=== PATIENT | female | born 1990 | race Caucasian/White ===

== ENCOUNTER 2017-11-29 18:05 | Outpatient (CLI) | payer MEDICAID, SELFPAY ==
[2017-11-29 18:41] VITALS: BMI 19.3
[2017-11-29 18:55] LABS: Bacteria 0 SEEN /hpf (None Seen); Mucous, Urine 0 SEEN /hpf (<or=2+); Red Blood Cells-Urine 0 SEEN /hpf (0-5); White Blood Cells 0 SEEN /hpf (0-5)
[2017-11-29 19:00] LABS: Color, Urine Yellow (Yellow); Glucose, Dipstick Normal (Normal); Ketone-Dipstick Negative (Negative); Leukocyte Esterase-Dipstick Negative /ul (Negative); Nitrite-Dipstick Negative (Negative); Occult Blood-Urine Negative /ul (Negative); Protein-Dipstick Negative (Negative); Urine Bilirubin Dipstick Negative (Negative); Urine Clarity Sl. Cloudy (Clear); Urine Urobilinogen Normal (Normal)
[2017-11-29 19:11] LABS: Squamous Epithelial Cells - UA 0-5 SEEN /hpf (5-10)
[2017-11-29] MEDS: Lactated Ringers 1,000 ML 999 ML IV (20:05)
[2017-11-29 20:43] LABS: Absolute Lymphocyte Count 1.17 X10^3/ul (0.83-4.51); Absolute Neutrophil Count 4.3 X10^3/uL (2.0-7.7); Basophil# 0.01 X10^3/uL; Basophil% 0.2 % (0-1); Eosinophil# 0.08 X10^3/uL; Eosinophils% 1.3 % (0-5); Hematocrit 28.2 % (37-47); Hemoglobin 8.6 g/dl (12.0-15.0); Lymphocyte # 1.17 X10^3/ul (4.0); Lymphocyte % 18.6 % (19-41); Mean Corp Hgb Conc 30.5 g/gl (32-36); Mean Corpuscular Hgb 24.1 pg (27.0-32.0); Mean Platelet Vol. 8.7 fl (6.2-12.0); Monocyte# 0.68 X10^3/uL; Monocyte% 10.8 % (0-10); Neutrophil # 4.32 X10^3/uL (2.7-7.7); Neutrophil % 68.8 % (47-70); Platelet Count 125 K/mm3 (150-450); RBC Distribution Width CV 14.3 % (11.6-14.6); Red Blood Count 3.57 M/mm3 (4.2-5.4); White Blood Count 6.3 K/mm3 (4.4-11.0)
[2017-11-29 20:45] LABS: POSITIVE COUNT NO; POSITIVE DIFFERENTIAL NO; POSITIVE MORPHOLOGY NO
[2017-11-29 20:53] LABS: ALB/GLOB Ratio 0.5 RATIO (0.9-2.4); AST(SGOT) 27 U/L (15-37); Alanine Aminotransfer ALT/SGPT 18 U/L (13-56); Albumin, Serum 2.2 g/dL (3.2-5.0); Alkaline Phosphatase 169 U/L (45-117); Amylase 78 U/L (25-115); Anion Gap 7 (5-15); BUN 6 mg/dL (7-18); BUN/Creat Ratio 13.2 RATIO (10-20); Calcium,Total 8.1 mg/dL (8.5-10.1); Chloride 107 mmol/L (98-107); Creatinine, Serum 0.46 mg/dL (0.55-1.02); EST Glomerular Filtration Rate 175 mL/min (>60); Est Glom Filt Rate - Afr Amer 212 mL/min (>60); Estimated Creatinine Clearance 134.27 ml/min; Globulin 4.1 g/dL (2.2-4.2); Glucose 69 mg/dL (74-106); Lipase 187 U/L (73-393); Potassium 3.5 mmol/L (3.5-5.1); Protein, Total 6.3 g/dL (6.4-8.2); Sodium Level 139 mmol/L (136-145)
[2017-11-29 21:45] VITALS: RESP 18
--- NOTE | 2017-12-04 17:05 | OB.TRI.NOTE ---
History of Present Illness Date of Service: 11/29/17 Was patient seen by the physician?: No Reason For Visit: RIGHT SIDED SHARP PAIN Date of Service: 11/29/17 Final PABLO: 01/04/18 Gestational age: 35 Weeks and 4 Days History of Present Illness: presented to L&D with contractions. Allergies amoxicillin [Amoxicillin] Allergy (Verified 03/14/17 16:42) Hives cefixime [From Suprax] Allergy (Verified 03/14/17 16:42) Hives lactulose Allergy (Verified 03/14/17 16:42) Hives oxycodone HCl [From Percocet] Adverse Reaction (Verified 03/14/17 16:42) Abd cramps/diarrhea Physical Exam Vitals: Vital Signs Resp 18 11/29/17 21:45 NST - FHR Rate Baby A Baseline: 125-135 Variability:: Moderate Accelerations:: 15 x 15 Decelerations:: None NST Reactive:: Yes FHR Category:: Category I Uterine Activity:: Irregular Impression/Plan A: False Labor P: 1) D/C home
== END 2017-11-29 21:45 | disposition home or self-care (01) ==
LOC: WPOUT 18:38 → WP 18:39
PROVIDERS: Family Provider Student in an Organized Health Care Education/Training Program; PCP Student in an Organized Health Care Education/Training Program; Visit Provider Obstetrics & Gynecology
DX: O47.03 False labor before 37 completed weeks of gestation, third trimester (principal); Z3A.35 35 weeks gestation of pregnancy
CPT/HCPCS: 36415; 59025; 59050; 80053; 81001; 82150; 83690; 85025; 99218; J7120; G0378

== ENCOUNTER 2017-12-13 03:05 | Outpatient (CLI) | payer MEDICAID, SELFPAY ==
[2017-12-13 03:33] VITALS: BMI 19.7
--- NOTE | 2017-12-13 09:44 | OB.TRI.NOTE ---
History of Present Illness Date of Service: 12/13/17 Was patient seen by the physician?: No Reason For Visit: R/O LABOR Date of Service: 12/13/17 Final PABLO: 01/04/18 Gestational age: 36 Weeks and 6 Days Allergies amoxicillin [Amoxicillin] Allergy (Verified 03/14/17 16:42) Hives cefixime [From Suprax] Allergy (Verified 03/14/17 16:42) Hives lactulose Allergy (Verified 03/14/17 16:42) Hives oxycodone HCl [From Percocet] Adverse Reaction (Verified 03/14/17 16:42) Abd cramps/diarrhea NST - FHR Rate Baby A Baseline: 115 bpm Variability:: Moderate Accelerations:: 15 x 15 Decelerations:: None NST Reactive:: Yes FHR Category:: Category I Uterine Activity:: quiet Impression/Plan 27 YOF high risk multigravida c/o possible contractions, threatened labor d/c home, f/u in office as needed or as scheduled, no evidence of PTL
== END 2017-12-13 03:45 | disposition home or self-care (01) ==
LOC: WPOUT 03:23 → WP 03:23
PROVIDERS: Family Provider Student in an Organized Health Care Education/Training Program; PCP Student in an Organized Health Care Education/Training Program; Visit Provider Obstetrics & Gynecology
DX: O60.03 Preterm labor without delivery, third trimester (principal); O09.43 Supervision of pregnancy with grand multiparity, third trimester; Z3A.36 36 weeks gestation of pregnancy
CPT/HCPCS: 59025; 59050; 99218; G0378

== ENCOUNTER 2017-12-15 17:05 | Outpatient (CLI) | payer MEDICAID, SELFPAY ==
[2017-12-15 17:48] VITALS: BMI 19.4
--- NOTE | 2017-12-16 09:15 | OB.TRI.NOTE ---
- Problem List (1) Abdominal pain affecting Status: Acute History of Present Illness Date of Service: 12/15/17 Was patient seen by the physician?: No Reason For Visit: ABDOMINAL PAIN Date of Service: 12/15/17 Final PABLO: 01/04/18 Gestational age: 37 Weeks and 2 Days History of Present Illness: Patient was seen in office that day, reported back pain that radiated down legs. Pain consistent with sciatica. Instructions for relief given. Later that day patient went to store and picked up her other children at [id number] and was unable to get out of truck without assistance. Patient was having more consistent irregular abdominal pains that did not let up after eating and drinking. Patient believes she may be in labor at this time. Allergies amoxicillin [Amoxicillin] Allergy (Verified 03/14/17 16:42) Hives cefixime [From Suprax] Allergy (Verified 03/14/17 16:42) Hives lactulose Allergy (Verified 03/14/17 16:42) Hives oxycodone HCl [From Percocet] Adverse Reaction (Verified 03/14/17 16:42) Abd cramps/diarrhea Physical Exam Vitals: See Nursing Note for Vital signs and Assessment Estimated gestational size: Appropriate for gestational size Presentation: Cephalic Cervix Dilation (cm): 0 - Per Wilber Lamb assessment services manager Station: -3 Effacement (%): 0 NST - FHR Rate Baby A Baseline: 120 Variability:: Moderate Accelerations:: 15 x 15 Decelerations:: None NST Reactive:: Yes, Appropriate for gestational age FHR Category:: Category I Uterine Activity:: Irregular q 6-12 minutes, mildly palpable per assessment services manager Impression/Plan 27 y/o @ 37.2 weeks, R/O Labor - ruled out. [place]-Singh Contractions. P: 1) Discharge to home following reactive NST 2) Labor precautions reviewed 3) RTC as scheduled in [facility] Rosy BARRIOS
--- NOTE | 2017-12-16 09:26 | OB.TRI.HP_ITS ---
- Problem List (1) Abdominal pain affecting Status: Acute History of Present Illness Date of Service: 12/15/17 Was patient seen by the physician?: No Reason For Visit: ABDOMINAL PAIN Date of Service: 12/15/17 Final PABLO: 01/04/18 Gestational age: 37 Weeks and 2 Days History of Present Illness: Patient was seen in office that day, reported back pain that radiated down legs. Pain consistent with sciatica. Instructions for relief given. Later that day patient went to store and picked up her other children at her mother-in- laws house and was unable to get out of truck without assistance. Patient was having more consistent irregular abdominal pains that did not let up after eating and drinking. Patient believes she may be in labor at this time. Allergies amoxicillin [Amoxicillin] Allergy (Verified 03/14/17 16:42) Hives cefixime [From Suprax] Allergy (Verified 03/14/17 16:42) Hives lactulose Allergy (Verified 03/14/17 16:42) Hives oxycodone HCl [From Percocet] Adverse Reaction (Verified 03/14/17 16:42) Abd cramps/diarrhea Physical Exam Vitals: See Nursing Note for Vital signs and Assessment Estimated gestational size: Appropriate for gestational size Presentation: Cephalic Cervix Dilation (cm): 0 - Per Wilber Lamb lotteries agent Station: -3 Effacement (%): 0 NST - FHR Rate Baby A Baseline: 120 Variability:: Moderate Accelerations:: 15 x 15 Decelerations:: None NST Reactive:: Yes, Appropriate for gestational age FHR Category:: Category I Uterine Activity:: Irregular q 6-12 minutes, mildly palpable per lotteries agent Impression/Plan 27 y/o @ 37.2 weeks, R/O Labor - ruled out. [place]-Singh Contractions. P: 1) Discharge to home following reactive NST 2) Labor precautions reviewed 3) RTC as scheduled in [facility] Rosy BARRIOS
== END 2017-12-15 18:50 | disposition home or self-care (01) ==
LOC: WPOUT 17:19 → WP 17:19
PROVIDERS: Family Provider Student in an Organized Health Care Education/Training Program; PCP Student in an Organized Health Care Education/Training Program; Visit Provider Obstetrics & Gynecology
DX: O47.1 False labor at or after 37 completed weeks of gestation (principal); Z3A.37 37 weeks gestation of pregnancy
CPT/HCPCS: 59025; 59050; 99218; J7030; G0378

== ENCOUNTER 2017-12-30 18:55 | Outpatient (CLI) | payer MEDICAID, SELFPAY ==
--- NOTE | 2017-12-31 09:13 | OB.TRI.NOTE ---
History of Present Illness Date of Service: 12/30/17 Was patient seen by the physician?: No Reason For Visit: R/O LABOR Date of Service: 12/30/17 Final PABLO: 01/04/18 Gestational age: 39 Weeks and 3 Days Allergies amoxicillin [Amoxicillin] Allergy (Verified 12/30/17 19:31) Hives cefixime [From Suprax] Allergy (Verified 12/30/17 19:31) Hives lactulose Allergy (Verified 12/30/17 19:31) Hives oxycodone HCl [From Percocet] Adverse Reaction (Verified 12/30/17 19:31) Abd cramps/diarrhea NST - FHR Rate Baby A Baseline: 120 Variability:: Moderate Accelerations:: 15 x 15 Decelerations:: None NST Reactive:: Yes FHR Category:: Category I Uterine Activity:: irregular Impression/Plan @ 39.3 wks gestation, not in labor dc home vaginal exam unchanged 1-/-1 labor precautions.
== END 2017-12-30 20:15 | disposition home or self-care (01) ==
LOC: WPOUT 19:28 → WP 19:28
PROVIDERS: Family Provider Student in an Organized Health Care Education/Training Program; PCP Student in an Organized Health Care Education/Training Program; Visit Provider Obstetrics & Gynecology
DX: O47.1 False labor at or after 37 completed weeks of gestation (principal); Z3A.39 39 weeks gestation of pregnancy
CPT/HCPCS: 59025; 59050; 99218; G0378

== ENCOUNTER 2018-01-02 06:55 | Inpatient (IN) | payer MEDICAID, SELFPAY ==
[2018-01-02 07:07] VITALS: BMI 20.3
[2018-01-02] MEDS: Lactated Ringers 1,000 ML 50 ML IV ×3 (07:35→15:08)
[2018-01-02] MEDS: Oxytocin 30 units/NS 500 ml 30 UNITS/500 ML IV.SOLN IV (07:49)
[2018-01-02 07:53] LABS: Hematocrit 31.3 % (37-47); Hemoglobin 9.7 g/dl (12.0-15.0); Mean Corpuscular Hgb 26.4 pg (27.0-32.0); Mean Corpuscular Volume 85.1 fL (81-99); Mean Platelet Vol. 8.7 fl (6.2-12.0); Platelet Count 136 K/mm3 (150-450); RBC Distribution Width CV 23.3 % (11.6-14.6); RBC Distribution Width SD 66.1 fl (35.1-43.9); Red Blood Count 3.68 M/mm3 (4.2-5.4); White Blood Count 6.1 K/mm3 (4.4-11.0)
[2018-01-02 07:54] LABS: Scan Indicated on CBC? Y/N YES- FLAGS NOTED
[2018-01-02 08:23] LABS: Differential Comment SCANNED
--- NOTE | 2018-01-02 09:01 | PCM.HP.OB ---
History Date of Admission: 09/14/15 Final PABLO: 01/04/18 Gestational age: 39 Weeks and 5 Days History of this : This is a 27 year-old, G [], P [], at 39 weeks gestational age. Allergies amoxicillin [Amoxicillin] Allergy (Verified 12/30/17 19:31) Hives cefixime [From Suprax] Allergy (Verified 12/30/17 19:31) Hives lactulose Allergy (Verified 12/30/17 19:31) Hives oxycodone HCl [From Percocet] Adverse Reaction (Verified 12/30/17 19:31) Abd cramps/diarrhea Home Medications: Home Medications Ondansetron [Zofran Odt] 4 mg PO Q8H PRN PRN #10 tablet 03/14/17 Famotidine [Pepcid] 20 mg PO BID PRN PRN 12/13/17 Iron Sucrose Complex [Venofer] 200 mg IV QODAY 01/02/18 Vit No.130/Iron/FA [ Vitamins] 1 each PO DAILY 01/02/18 Smoking Status: Never smoker Alcohol: None Heart Tracin with mod variability, accels TOCO Analysis: Q 3-4 min History Past Pregnancies: Past Pregnancies Delivery Date Name GA/Weeks Outcome Route Weight Gender Labor Length Anesthesia Delivery Location Provider FOB Labs: Please see [facility] H&P for complete details Physical Exam General: Alert, Oriented x3 Abdomen: Soft, Non Tender, Non-Distended, Gravid Extremities:: No tenderness/swelling Cervix Dilation (cm): 2 Station: -2 Effacement (%): 80 - AROM clear fluid Assessment/Plan All Active Problems Abdominal pain affecting (Acute) 27yo female @ 39&5 for elective induction Admit to L&D Induction - s/p AROM, on pitocin Pain - epidural when desired EFW less than 4500g, patient with adequate pelvis GBS negative
[2018-01-02] MEDS: Nalbuphine 10 MG/ML Ampul IV (09:53)
[2018-01-02] MEDS: fentaNYL-bupivacaine (epidural) 100 ML BAG EPIDURAL (13:17)
[2018-01-02] MEDS: Oxytocin 30 units/NS 500 ml 30 UNITS/500 ML IV.SOLN 334 UNITS IV (16:16)
--- NOTE | 2018-01-02 16:32 | PCM.OB.VAG ---
Vaginal Delivery Maternal Presentation: Elective Induction Method of Induction: Pitocin, Amniotomy Amniotic Membrane Rupture Type: Artificial Amniotic Fluid Description: Clear Final PABLO: 01/04/18 Gestational age: 39 Weeks and 5 Days Date of Procedure: 01/02/18 Pre-Operative Diagnosis: Elective induction Post-Operative Diagnosis: Same Surgery/ Procedure Performed: Spontaneous Vaginal Delivery Type of Anesthesia: Epidural Description of Procedure: Patient prepped & draped when c/c/+2. She pushed to deliver head. Gentle traction placed on head & no release of anterior shoulder. No excess traction placed on head. Shoulder dystocia immediately recognized. Manpreet called for & RN called extra staff. Patient pushed & no release of anterior shoulder with Manpreet. Patient told to stop pushing & suprapubic pressure called for. The fetus then rotated & the posterior shoulder delivered. With maternal pushing the anterior shoulder then delivered. Tight nuchal cord clamped & cut. The remainder of the infant delivered with maternal pushing. taken to warmer with pediatric team present. Placenta deliver with gentle traction. Good uterine tone obtained. Presentation: SRINIVAS Placental Delivery Description: Expressed Placenta Disposition: [facility] Cord Vessel Description: 3 Vessels Estimated Blood Loss: 200ml A gender: Male (1 minute): 4 (5 minute): 8 Episiotomy Description: None Laceration: None Medications given after delivery: IV Pitocin
[2018-01-02] MEDS: Methylergonovine 0.2 MG/ML Ampul IM (16:50)
[2018-01-02] MEDS: Ibuprofen 600 MG Tablet PO (18:33)
[2018-01-02] MEDS: 0.9% Saline Lock 10 ML Syringe IV (18:37)
--- NOTE | 2018-01-02 19:05 | NURSING ---
Dr Kendrick notified by phone of pt c/o pain 01/19 rt abdomen. Firm to touch. Informed that pt up to BSC and voided 800cc. Afebrile. Requested Dr to come in and evaluate abdominal tenderness and firmness rt abdomen. states she will be in to see pt.
[2018-01-02] MEDS: oxyCODONE 5 MG Tablet PO (19:41)
--- NOTE | 2018-01-02 19:54 | PCM.PN.OB ---
Subjective: Called to see patient for abdominal pain. VB is stable. - Physical Exam General: Alert, Oriented x3 Abdomen: Soft, Non-Distended - mild tenderness over right side. uterus firm & displaced to right, Guarding Weight: 107 lb 9.369 oz Body Mass Index (BMI) 20.3 Intake and Output for Last 24 Hours 12/31/17 01/01/18 01/02/18 23:59 23:59 23:59 Intake Total 3305 / 3305 Output Total 3345 / 3345 Balance -40 / -40 Laboratory Tests Past 24 Hrs 01/02/18 01/02/18 07:35 07:35 WBC 6.1 RBC 3.68 L Hgb 9.7 L Hct 31.3 L MCV 85.1 MCH 26.4 L MCHC 31.0 L RDW 23.3 H RDW Differential 66.1 H Plt Count 136 L MPV 8.7 Differential Comment SCANNED Blood Type O POSITIVE Antibody Screen NEGATIVE Medical Necessity - Tobacco Use Smoking Status: Never smoker Assessment/Plan All Active Problems Abdominal pain affecting (Acute) 27yo female s/p with abdominal pain TAUS confirms uterus displaced to the right. Bladder distended midline & to the left. Will place wong catheter & plan to remove in am. Plan of care discussed with patient & RN.
[2018-01-02 20:00] VITALS: BP 116/78; PULSE 70; RESP 16; TEMP 36.6
--- NOTE | 2018-01-02 20:10 | NURSING ---
Dr. Kendrick in room to see pt at 1930, assessed abdomen and performed bedside US. Confirmed that uterus is distended and bladder is full. Orders received to insert indwelling catheter overnight. Arenas catheter inserted at 1999. Dr. Kendrick in room right after catheter inserted. Informed that 5mg oxyir po given and pt immediately vomited. VO received for IV phenergen for nausea and help pt to rest.
--- NOTE | 2018-01-02 21:25 | NURSING ---
2112-pt called out and requested that IV be taken out. This RN explained to pt that with combination of blood loss after delivery and how she has been feeling since delivery it is best to leave IV in for now, but that this RN will reassess at 0000 and see how pt is doing. This RN also explained that Dr. Kendrick ordered IV medication to help with nausea. Pt asked if we could just repoke her and this RN explained risks of infection with each IV site. Pt verbalizes understanding.
--- NOTE | 2018-01-02 21:49 | NURSING ---
Reported to Dr. Kendrick that pt would like IV out. Dr. Kendrick would like IV left in over night while bleeding is monitored and until CBC comes back in AM. Dr. Kendrick would like wong catheter left in until pt is ready to get up in the morning.
[2018-01-03 00:19] VITALS: BP 103/62; PULSE 81; RESP 16; TEMP 36.7
[2018-01-03] MEDS: Ibuprofen 600 MG Tablet PO ×4 (00:39→21:54)
[2018-01-03 04:05] VITALS: BP 89/52; PULSE 64; RESP 16; TEMP 36.5
[2018-01-03 04:41] LABS: Absolute Lymphocyte Count 1.58 X10^3/ul (0.83-4.51); Absolute Neutrophil Count 7.1 X10^3/uL (2.0-7.7); Basophil# 0.01 X10^3/uL; Basophil% 0.1 % (0-1); Eosinophil# 0.05 X10^3/uL; Eosinophils% 0.5 % (0-5); Hematocrit 31.9 % (37-47); Hemoglobin 10.1 g/dl (12.0-15.0); Lymphocyte # 1.58 X10^3/ul (4.0); Lymphocyte % 16.6 % (19-41); Mean Corp Hgb Conc 31.7 g/gl (32-36); Mean Corpuscular Hgb 26.7 pg (27.0-32.0); Mean Corpuscular Volume 84.4 fL (81-99); Monocyte# 0.73 X10^3/uL; Monocyte% 7.7 % (0-10); Neutrophil # 7.12 X10^3/uL (2.7-7.7); Neutrophil % 74.9 % (47-70); Platelet Count 162 K/mm3 (150-450); RBC Distribution Width CV 23.2 % (11.6-14.6); RBC Distribution Width SD 65.2 fl (35.1-43.9); Red Blood Count 3.78 M/mm3 (4.2-5.4); White Blood Count 9.5 K/mm3 (4.4-11.0)
[2018-01-03 04:44] LABS: Differential Indicated SCAN CRITERIA MET; POSITIVE COUNT NO; POSITIVE DIFFERENTIAL NO; POSITIVE MORPHOLOGY YES
[2018-01-03 05:15] LABS: Differential Comment SCANNED
[2018-01-03 07:41] VITALS: BP 90/56; PULSE 67; RESP 16; TEMP 36.6
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
[2018-01-03] MEDS: Acetaminophen 500 MG Tablet 1000 MG PO (12:16)
[2018-01-03 12:19] VITALS: BP 124/75; PULSE 67; RESP 16; TEMP 36.4
--- NOTE | 2018-01-03 13:00 | CASEMGMT ---
Social Work Note Labor and Delivery Unit Summary: Confirmed with Marta at [facility] that early intervention will go to [place]. Met with MOB and updated. MOB signed referral form, as well as release of information to [facility]. During this discussion MOB voiced that called Azalia at [facility], and Azalia reports will purchase formula for baby if MOB nor FOB able to get into [place] before next walk in hours. This discussion led to what type of formula the baby is eating. This led to discussion about MOBs daughter Isabel having celiac disease. MOB reports that does not follow the no wheat recommendation, but portions the wheat out so that Isabel is getting less, which seems to help. MOB then went on to share that Ashley had a recent bloody mucous show in her pull up and that MOB needs to get Ashley into [place] to get checked out for Celiac disease as well. RENZO Duncan also present when MOB talked about the bloody show that Ashley had. This television script writer then inquired whether MOB trusts the people that are caring for the kids, and whether MOB has any safety concerns with this man Cheko. MOB denies to have any safety concerns with Cheko, describing Cheko as a grandfather to the kids. MOB reports that Isabel has been mouthy lately and that Cheko has the firmness to get Isabel to straighten out. MOB reports that Cheko takes the kids to the park in his [place]. Asked MOB what color the [place] is. MOB reports the [place] is black. This television script writer inquired whether Cheko ever has the kids spend the night at Chekos home. MOB reports that yes, Cheko and FOBs mother take the kids overnight sometimes. Asked where Cheko lives, and MOB reports it is a road near the store [employer], but MOB not sure on the name. This television script writer inquired whether MOB has any concerns about Cheko being a registered sex offender or not safe for the children. MOB denies any concerns or belief that Cheko may be unsafe to be around the kids. MOB reports that did hear back from [employer] and the electricity is still on but FOB wants MOB to look into options to help keep the electric on. MOB reports plan to talk to [facility] for help again. Interventions: Provided MOB with list of [facility], pointing out [facility] number. Provided MOB with [facility]. Provided MOB with mental health intake appointment at [facility] for 01-12-18. Provided information on depression, shaken baby prevention, and safe sleeping. Information given on [employer] (as the family is paying 750 a month in rent alone). Head start referral faxed to confirmed fax number today with MOBs stated consent. Arranged MOB a mental health intake at [facility] for 01-12-18. Also spoke with Michael, Medical Art Therapist, about possiblity of restarting MOB on antidepressants. After leaving MOBs room, this television script writer called [facility] ([facility]). Spoke with Helena Fleming in the intake department. Referral given due to multiple risk factors present for this family: limited income and seemingly having a hard time meeting monthly bills, not having formula for baby (though MOB followed through reportedly with calling [employer] for help) maternal mental health and paternal mental health untreated though MOB voicing willingness to get into treatment multiple kids in the home and shared what MOB shared as a far as kids acting out at home, including biting and the trouble MOB has voiced in getting the oldest to use the restroom. MOB voicing to be overwhelmed at times. Reported to Helena the MOB's mention that Ashley had a recently bloody mucous show in pull ups and needs to get the child checked out in [place], that MOB is relating this to Celiac disease, or possibility of this since Isabel has Celiac disease Informed Helena that support system seems to be limited, that one core person the MOB has identified is a male that MOB does not know the last name of, only first name of Cheko, that this man takes the kids to the park and overnight, and that this male reportedly helps MOB with the kids by getting the kids dressed and changed. Concern that MOB is allowing children to be cared for by a man that MOB does not know the last name of, and that the kids go to spend the night. Concern about MOBs reports about the oldest reportedly having bloody show in pull ups, having issues with night time use of bathroom/still using a pull up, and biting. Informed Helena that MOB and baby slated for discharge tomorrow. Plan: Anticipating MOB and baby to discharge home with [facility] to follow Social work to follow up with [facility] tomorrow, prior to discharging this family. Social work to check with staff tomorrow as well, to see if any concerns arise over night Social work following. _-BISMARK Oviedo S MSW
[2018-01-03 14:00] VITALS: BP 107/57; PULSE 70; RESP 16; TEMP 36.6
--- NOTE | 2018-01-03 18:25 | NURSING ---
no changes in assessment today from this a.m.
--- NOTE | 2018-01-03 19:01 | PCM.PN.OB ---
Subjective: Doing well per patient and nursing staff. Bottle feeding. Ambulating and taking PO without difficulty. Voiding and passing flatus. Denies any headaches, visual changes, chest pain, increased SOB, leg pain, increased vaginal bleeding or clots. - Physical Exam General: Alert, Oriented x3, Cooperative Lungs: Clear to auscultation, Normal air movement, No rhonchi, No wheeze Cardiovascular: Regular rate, Regular Rhythm, No murmurs Abdomen: Bowel Sounds Present, Soft, Non Tender, - - Fundus firm 2 below U Extremities: No edema, - - Camden's negative bilaterally Psych/Mental Status: Normal Affect, Appropriate Vital Signs Temp Pulse Resp BP 97.9 F 70 16 107/57 L 01/03/18 14:00 01/03/18 14:00 01/03/18 14:00 01/03/18 14:00 Oxygen Delivery Method Room Air Weight: 107 lb 9.369 oz Body Mass Index (BMI) 20.3 Intake and Output for Last 24 Hours 01/01/18 01/02/18 01/03/18 23:59 23:59 23:59 Intake Total 3305 / 3305 Output Total 4845 / 4845 1200 / 1200 Balance -1540 / -1540 -1200 / -1200 Laboratory Tests Past 24 Hrs 01/03/18 04:20 WBC 9.5 RBC 3.78 L Hgb 10.1 L Hct 31.9 L MCV 84.4 MCH 26.7 L MCHC 31.7 L RDW 23.2 H RDW Differential 65.2 H Plt Count 162 MPV 9.0 Immature Gran % (Auto) 0.200 Neut % (Auto) 74.9 H Lymph % (Auto) 16.6 L [place] % (Auto) 7.7 Eos % (Auto) 0.5 Baso % (Auto) 0.1 Absolute Neuts (auto) 7.1 Absolute Lymphs (auto) 1.58 Total Counted Not Reportable Differential Comment SCANNED Medical Necessity - Tobacco Use Smoking Status: Never smoker Assessment/Plan All Active Problems Abdominal pain affecting (Acute) A: PPD #1 P: 1) Routine care. 2) Planning D/C home tomorrow 3) PPTL consent form signed,office to call and schedule with patient.
[2018-01-03 21:35] VITALS: BP 93/51; PULSE 58; RESP 18; TEMP 36.5
--- NOTE | 2018-01-03 21:51 | NURSING ---
Patient reports that WYATT Keller's friend, Cheko, will be watching her older children this weekend so that new parents can start to adjust with infant at home. Pt states Cheko is like a grandpa to them, when he's around they ignore everyone else.
[2018-01-04 02:40] VITALS: BP 94/51; PULSE 62; RESP 16; TEMP 36.3
[2018-01-04] MEDS: Acetaminophen 500 MG Tablet 1000 MG PO (02:40)
--- NOTE | 2018-01-04 06:01 | NURSING ---
[id number]-picture of dilan galvez brought up on public website of [facility] office site for registered sex offenders. pt verified this man as Dilan who has been watching her children, this nurse and александр cuadra in room and witnessed this. informed pt that this man is on the registered sex offenders list and made aware that this is public information and that she could pull this up on her own to verify this. pts initial response was i had no idea states she doesnt think that Geremias knew of this information either. states she will call Pierre mother and let her know because she is suppose to drop Hopes other children off with Dilan this afternoon. encouraged pt to speak with Geremias
--- NOTE | 2018-01-04 08:29 | DCINST_ITS ---
Discharge Diet: No Restrictions Discharge Activity: May Drive, May Shower May resume sexual activity in: 6 weeks Additional Instructions: If you experience any of the following, contact your healthcare provider. * Bleeding that soaks a pad every hour for 2 hours * Fever 100.4 or higher * Unrelieved incision or abdominal pain * Swelling, redness, discharge or bleeding from your incision or episiotomy site * Your incision begins to separate * Problems urinating (including inability to urinate or burning while urinating) . * Visual changes * Severe headache * Flu-like symptoms * Pain or redness in one of both of your breasts * Pain, warmth, tenderness or swelling in your legs, especially the calf area * Frequent nausea and vomiting * Symptoms of depression or anxiety If you experience any of the following, call 911 or go to the nearest Emergency Room. * Chest pain * Problems breathing * Seizure activity * Partial or complete paralysis of a body part, slurred speech, weakness or drooping of the face, or a sudden inability to walk or hold your balance Allergies/Adverse Reactions: Allergies amoxicillin [Amoxicillin] Allergy (Verified 12/30/17 19:31) Hives cefixime [From Suprax] Allergy (Verified 12/30/17 19:31) Hives lactulose Allergy (Verified 12/30/17 19:31) Hives oxycodone HCl [From Percocet] Adverse Reaction (Verified 12/30/17 19:31) Abd cramps/diarrhea Medications to take at Discharge Famotidine [Pepcid] 20 mg PO BID PRN PRN 12/13/17 Vit No.130/Iron/FA [ Tablet] 1 each PO DAILY 01/02/18 Ferrous Sulfate, Dried [Slow Release Iron] 144 mg PO DAILY #30 tablet.er Ibuprofen 800 mg PO Q8H PRN PRN #40 tab 01/04/18 The following prescriptions were given: Ibuprofen 800 mg PO Q8H PRN PRN #40 tab PRN Reason: Pain Ferrous Sulfate, Dried [Slow Release Iron] 144 mg PO DAILY #30 tablet.er Primary Care Physician: Jamari Zhang DO [Primary Care Provider] - Test Results: Test results from this visit will be discussed in further detail at your follow- up appointment, if applicable.
--- NOTE | 2018-01-04 08:29 | PCM.DCVAG ---
Discharge Diet: No Restrictions Discharge Activity: May Drive, May Shower May resume sexual activity in: 6 weeks Additional Instructions: If you experience any of the following, contact your healthcare provider. Bleeding that soaks a pad every hour for 2 hours Fever 100.4 or higher Unrelieved incision or abdominal pain Swelling, redness, discharge or bleeding from your incision or episiotomy site Your incision begins to separate Problems urinating (including inability to urinate or burning while urinating). Visual changes Severe headache Flu-like symptoms Pain or redness in one of both of your breasts Pain, warmth, tenderness or swelling in your legs, especially the calf area Frequent nausea and vomiting Symptoms of depression or anxiety If you experience any of the following, call 911 or go to the nearest Emergency Room. Chest pain Problems breathing Seizure activity Partial or complete paralysis of a body part, slurred speech, weakness or drooping of the face, or a sudden inability to walk or hold your balance Allergies/Adverse Reactions: Allergies amoxicillin [Amoxicillin] Allergy (Verified 12/30/17 19:31) Hives cefixime [From Suprax] Allergy (Verified 12/30/17 19:31) Hives lactulose Allergy (Verified 12/30/17 19:31) Hives oxycodone HCl [From Percocet] Adverse Reaction (Verified 12/30/17 19:31) Abd cramps/diarrhea Medications to take at Discharge Famotidine [Pepcid] 20 mg PO BID PRN PRN 12/13/17 Vit No.130/Iron/FA [ Tablet] 1 each PO DAILY 01/02/18 Ferrous Sulfate, Dried [Slow Release Iron] 144 mg PO DAILY #30 tablet.er 01/04/18 Ibuprofen 800 mg PO Q8H PRN PRN #40 tab 01/04/18 The following prescriptions were given: Ibuprofen 800 mg PO Q8H PRN PRN #40 tab PRN Reason: Pain Ferrous Sulfate, Dried [Slow Release Iron] 144 mg PO DAILY #30 tablet.er Primary Care Physician: Jamari Zhang DO [Primary Care Provider] - Test Results: Test results from this visit will be discussed in further detail at your follow-up appointment, if applicable.
[2018-01-04 08:30] VITALS: BP 95/50; PULSE 71; RESP 16; TEMP 36.8
--- NOTE | 2018-01-04 08:30 | PCM.PN.OB ---
Subjective: Pain controlled. She reports feeling depressed & wishes to restart the medication she has taken in the past. Denies SI/HI. - Physical Exam General: Alert, Oriented x3 Abdomen: Soft, Non Tender, Non-Distended - ff mid & below umb Extremities: No Calf Tenderness Vital Signs Temp Pulse Resp BP 97.4 F L 62 16 94/51 L 01/04/18 02:40 01/04/18 02:40 01/04/18 02:40 01/04/18 02:40 Oxygen Delivery Method Room Air Weight: 107 lb 9.369 oz Body Mass Index (BMI) 20.3 Intake and Output for Last 24 Hours 01/02/18 01/03/18 01/04/18 23:59 23:59 23:59 Intake Total 3305 / 3305 Output Total 4845 / 4845 1200 / 1200 Balance -1540 / -1540 -1200 / -1200 Medical Necessity - Tobacco Use Smoking Status: Never smoker Assessment/Plan All Active Problems Abdominal pain affecting (Acute) PPD#2 D/c home later today Depression - Discussed R/B/A & patient wishes to restart prior medication. [facility] chart will be checked & medication sent to pharmacy. Patient will f/u in 1-2 weeks fo depression or sooner if needed. SI/HI precautions reviewed.
[2018-01-04] MEDS: Senna/Docusate Sodium 1 Tablet PO (08:48)
--- NOTE | 2018-01-04 09:27 | NURSING ---
Phone call from Rima Couch case management, confirming pt's discharge today and stating that [facility] will be notified of discharge.
--- NOTE | 2018-01-04 09:33 | CM.ED ---
Social Work Note Placed call to pt's bedside RN, Thu, who denies any additional concerns than those reported by MAGALI Silver, to [facility] yesterday. Confirms that the pt is discharging today. Placed call to Helena Fleming at [facility] and left vm indicating no additional concerns than those reported yesterday and that pt is to discharge this date. Requesting a return phone call to indicate whether they need to evaluate the pt prior to discharge. Placed an additional call to the main report line and spoke with Nicolasa. According to Nicolasa, they were aware pt was discharging today, and are reviewing the case to see if they need to follow-up however the pt and infant are safe to discharge from [facility] at this time. Nursing staff notified. Mercedes Couch, PRIVATE DUTY LPN, CANDLE MOLDER
[2018-01-04] MEDS: Ibuprofen 600 MG Tablet PO (09:44)
[2018-01-04 12:00] VITALS: BP 98/54; PULSE 75; RESP 16; TEMP 36.6
--- NOTE | 2018-01-12 13:04 | NURSING ---
follow up phone call attempt, mailbox full
--- NOTE | 2018-03-02 12:18 | CASEMGMT ---
Social Work Labor and Delivery Unit Received call from Frederick at [facility] ([facility]) who is the assigned worker from the report this instructional writer made at time of hospitalization December 2017. Clarified with Frederick questions pertaining to report for continuity of care for child protective issues. -MAGALI Oviedo, MATRIX BATH ATTENDANT
== END 2018-01-04 13:25 | disposition home or self-care (01) | DRG 373 ==
PROVIDERS: Admitting Provider Obstetrics & Gynecology; Family Provider Student in an Organized Health Care Education/Training Program; PCP Student in an Organized Health Care Education/Training Program; Visit Provider Obstetrics & Gynecology
DX: O66.0 Obstructed labor due to shoulder dystocia (principal); O99.02 Anemia complicating childbirth; D64.9 Anemia, unspecified; O99.62 Diseases of the digestive system complicating childbirth; K21.9 Gastro-esophageal reflux disease without esophagitis; F53 Mental and behavioral disorders associated with the puerperium, not elsewhere classified; O99.89 Other specified diseases and conditions complicating pregnancy, childbirth and the puerperium; R10.9 Unspecified abdominal pain; Z3A.39 39 weeks gestation of pregnancy; Z37.0 Single live birth
CPT/HCPCS: 59025; 59050; 85025; 85027; 86850; 86900; 99218; J7120; A4216; G0378

== ENCOUNTER 2018-04-24 09:54 | Emergency (ER) | payer MEDICAID, SELFPAY ==
[2018-04-24 09:55] VITALS: BP 96/60; PULSE 97; RESP 16; TEMP 36.8; O2SAT 99; BMI 16.9
--- NOTE | 2018-04-24 10:14 | ED.DCSUM_ITS ---
- ER Visit Summary Date of Service: 04/24/18 Chief Complaint: Abdominal pain History of Present Illness: The patient is a [address] Zhang and Dr. Kendrick. She reports that she has lower abdominal pain that woke her from sleep at 7:00 this morning. It is a sharp, cramping pain is 1010 at worst a 10 currently. Is worsened by nothing. She taken Tylenol without relief. She denies any nausea, vomiting, or diarrhea. Reports her last bowel movement was 2 days ago. Typically she has bowel movement once a week. No blood in her stools or black tarry stools. No dysuria frequency. Last menstrual period was approximately March 31. She denies any vaginal bleeding or discharge. Reports she had similar symptoms previously with menstrual cramps. Patient is a who had a vaginal delivery approximately 4 months ago. She denies any fever or chills. Physical Examination: Vitals: Stable. Afebrile. General: Well-nourished and well-developed. Head: Normocephalic atraumatic. Neck: Supple, no lymphadenopathy. No JVD. Nontender. Cardiovascular: Regular rate and rhythm. No murmurs. Respiratory: No respiratory distress. Clear to auscultation bilaterally. Abdominal: Soft, mild diffuse tenderness palpation over her lower abdomen without localized tenderness on the right, nondistended, normal bowel sounds. No guarding, rebound, or peritoneal signs. Back: Nontender. Extremities: Nontender, no edema. Skin: Normal color, no rash. Neurologic: Alert and oriented ?3. Cranial nerves II through XII are intact. Normal strength and sensation. Psych: Normal affect. Test Results: test is negative. UA is negative. Emergency Department Course and Treatment: Patient had an IV placed. She was given Toradol IV. She is resting comfortably. Treatment Plan: The patient was discussed with Dr. Kendrick. She will be discharged naproxen. Instructed to follow-up within 1 week if not improving. Return to the emergency department for any worsening symptoms. Disposition: To home in improved and stable condition. Impression: 1. Pelvic pain, uncertain cause. This note was generated with [employer] software. It may contain incorrect words, spelling, and punctuation that were not noted in review of the chart prior to signing ED Disposition - Plan for ED Patient: Chief Complaint: Abd Pain Instructions: ED Pelvic Pain [facility]O Prescriptions: Naproxen [Naprosyn] 500 mg PO BID #14 tablet Referrals: Jens Kendrick [STAFF PHYSICIAN] - 3-5 Days if not improving
[2018-04-24] MEDS: 0.9% Normal Saline 1,000 ML 1000 ML IV (10:41)
[2018-04-24] MEDS: Ketorolac 30 MG/ML Syringe IV (10:41)
[2018-04-24 10:57] LABS: Mucous, Urine 0 SEEN /hpf (<or=2+); Red Blood Cells-Urine 0 SEEN /hpf (0-5)
[2018-04-24 11:00] LABS: Color, Urine Yellow (Yellow); Glucose, Dipstick Normal (Normal); Ketone-Dipstick Negative (Negative); Leukocyte Esterase-Dipstick 25 /ul (Negative); Nitrite-Dipstick Negative (Negative); Occult Blood-Urine Negative /ul (Negative); Protein-Dipstick Negative (Negative); Urine Bilirubin Dipstick Negative (Negative); Urine Clarity Cloudy (Clear); Urine Urobilinogen Normal (Normal)
[2018-04-24 11:08] LABS: Pregnancy, Serum, hCG Quali. NEGATIVE Negative (0-9 Nonpreg)
[2018-04-24 11:10] LABS: Bacteria 2+ /hpf (None Seen); Squamous Epithelial Cells - UA 0-5 SEEN /hpf (5-10); White Blood Cells 0-5 SEEN /hpf (0-5)
[2018-04-24 12:09] VITALS: PULSE 103; RESP 14; RESP 16; O2SAT 98
== END 2018-04-24 12:10 | disposition home or self-care (01) ==
PROVIDERS: Emergency Provider Emergency Medicine; Family Provider Student in an Organized Health Care Education/Training Program; PCP Student in an Organized Health Care Education/Training Program
DX: R10.2 Pelvic and perineal pain (principal)
CPT/HCPCS: 81001; 84703; 96374; 99283; J7030; A4216

== ENCOUNTER 2018-08-07 23:43 | Emergency (ER) | payer MEDICAID, SELFPAY ==
[2018-08-07 23:44] VITALS: BP 106/70; PULSE 103; RESP 14; TEMP 37.1; O2SAT 97; BMI 16.2
--- NOTE | 2018-08-07 23:59 | ED.DCSUM_ITS ---
- ER Visit Summary Date of Service: 08/07/18 Chief Complaint: Nausea and vomiting History of Present Illness: The patient is a 27 F is at approximately 5 weeks gestation presents with nausea and vomiting. The patient had multiple teeth extracted today. It was done under local anesthesia as she is . She states that today, she began to have vomiting. She really denies any pain. She said no vaginal bleeding or discharge. She states she is just unable to keep anything down. She is currently taking Tylenol 3 for her pain, but cannot keep it down. She denies any fevers or chills. She denies any change in voice. She is otherwise been in her normal state of health. Physical Examination: Vital signs reviewed General: Well-nourished, well-developed Head: Normocephalic, atraumatic Eyes: Pupils equal and reactive, extraocular muscles intact ENT: Patient is status post extraction. There is no active bleeding. There is no Mike angina. There is no trismus or stridor. Neck, supple, no lymphadenopathy Heart: Regular rate and rhythm Respiratory: No distress, clear bilaterally Abdomen: Soft, nontender, nondistended, no peritoneal signs Back: Nontender Extremities: Nontender, no edema, no cords Skin: Normal color no rash Neuro: Alert and oriented, no focal or lateralizing deficits Test Results: [] Emergency Department Course and Treatment: Patient presents with vomiting after dental extraction. My suspicion is that this is multifactorial. She is currently and was on Tylenol with codeine. Her abdomen is soft and nontender. Her vital signs are unremarkable. IV was established. Patient was given fluids and Phenergan. I did obtain a BMP which was within normal limits. On reevaluation, she is resting comfortably. She had no further vomiting. At this time, I do feel that she is safe for outpatient therapy. She was counseled concerning symptoms and reasons to return. Treatment Plan: [] Disposition: Discharge Impression: 1. Nausea and vomiting This note was generated with [employer] dictation software. It may contain incorrect words, spelling, and punctuation that were not noted in review of the chart prior to signing ED Disposition - Plan for ED Patient: Instructions: ED Nausea Vomiting Prescriptions: proMETHazine tablet [Phenergan] 25 mg PO Q6H PRN PRN #10 tab PRN Reason: Nausea Referrals: Jamari Zhang DO [Primary Care Provider] -
[2018-08-08] MEDS: 0.9% Normal Saline 1,000 ML 1000 ML IV (00:34)
[2018-08-08] MEDS: proMETHazine 25 MG/ML Syringe 12.5 MG IV (00:34)
[2018-08-08 00:46] LABS: Anion Gap 7 (5-15); BUN 12 mg/dL (7-18); Calcium,Total 8.7 mg/dL (8.5-10.1); Chloride 105 mmol/L (98-107); EST Glomerular Filtration Rate 127 mL/min (>60); Est Glom Filt Rate - Afr Amer 153 mL/min (>60); Estimated Creatinine Clearance 86.73 ml/min; Glucose 100 mg/dL (74-106); Sodium Level 136 mmol/L (136-145)
[2018-08-08 01:11] VITALS: BP 110/71; PULSE 87; RESP 16; O2SAT 97; O2SAT 98
[2018-08-08] MEDS: Ondansetron ODT 4 MG Tablet PO (01:11)
== END 2018-08-08 01:13 | disposition home or self-care (01) ==
LOC: ED 08-08 00:32
PROVIDERS: Emergency Provider Emergency Medicine; Family Provider Student in an Organized Health Care Education/Training Program; PCP Student in an Organized Health Care Education/Training Program
DX: O21.9 Vomiting of pregnancy, unspecified (principal); Z3A.01 Less than 8 weeks gestation of pregnancy
CPT/HCPCS: 80048; 96374; 99283; J7030; A4216

== ENCOUNTER 2018-09-16 21:35 | Emergency (ER) | payer MEDICAID, SELFPAY ==
[2018-09-16 21:36] VITALS: BP 99/64; PULSE 78; RESP 16; TEMP 36.8; O2SAT 99; BMI 16.2
--- NOTE | 2018-09-16 22:16 | ED.RN ---
PT REPORTED SHE WAS LEAVING AND GOING TO [facility]. LWBS [id number].
== END 2018-09-16 22:15 | disposition left against medical advice (07) ==
LOC: ED 22:29
PROVIDERS: Emergency Provider Emergency Medicine; Family Provider Student in an Organized Health Care Education/Training Program; PCP Student in an Organized Health Care Education/Training Program
DX: R69 Illness, unspecified (principal); Z53.21 Procedure and treatment not carried out due to patient leaving prior to being seen by health care provider

== ENCOUNTER → 2018-10-01 14:53 | Outpatient (CLI) | payer MEDICAID, SELFPAY ==
[2018-09-16 21:36] VITALS: BMI 16.2
[2018-10-01 15:45] LABS: Absolute Lymphocyte Count 1.18 X10^3/ul (0.83-4.51); Basophil# 0.02 X10^3/uL; Basophil% 0.6 % (0-1); Eosinophil# 0.05 X10^3/uL; Eosinophils% 1.4 % (0-5); Hematocrit 20.6 % (37-47); Hemoglobin 6.7 g/dl (12.0-15.0); Lymphocyte # 1.18 X10^3/ul (4.0); Lymphocyte % 33.1 % (19-41); Mean Corp Hgb Conc 32.5 g/gl (32-36); Mean Corpuscular Hgb 29.3 pg (27.0-32.0); Mean Platelet Vol. 8.3 fl (6.2-12.0); Monocyte# 0.33 X10^3/uL; Monocyte% 9.2 % (0-10); Neutrophil # 1.99 X10^3/uL (2.7-7.7); Neutrophil % 55.7 % (47-70); Platelet Count 250 K/mm3 (150-450); RBC Distribution Width CV 14.2 % (11.6-14.6); Red Blood Count 2.29 M/mm3 (4.2-5.4); White Blood Count 3.6 K/mm3 (4.4-11.0)
[2018-10-01 15:50] LABS: POSITIVE COUNT NO; POSITIVE DIFFERENTIAL NO; POSITIVE MORPHOLOGY NO
== END ==
PROVIDERS: Family Provider Student in an Organized Health Care Education/Training Program; PCP Student in an Organized Health Care Education/Training Program; Referring Provider Obstetrics & Gynecology Gynecology; Visit Provider Obstetrics & Gynecology Gynecology
DX: D62 Acute posthemorrhagic anemia (principal)
CPT/HCPCS: 36415; 85025

== ENCOUNTER 2018-10-12 11:02 | Emergency (ER) | payer MEDICAID, SELFPAY ==
[2018-10-12 11:03] VITALS: BP 98/61; PULSE 113; RESP 16; TEMP 37.4; O2SAT 99; BMI 15.1
[2018-10-12 11:29] VITALS: RESP 18
--- NOTE | 2018-10-12 11:30 | ED.VISSUMM ---
- ER Visit Summary Date of Service: 10/12/18 Chief Complaint: Facial swelling and dental pain History of Present Illness: The patient is a 28 F who presents with facial swelling and dental pain. She is actually scheduled to have her remaining lower teeth pulled on Monday. She has had all of the lower teeth on the right already pulled. She states she just finished antibiotics last night. However on further questioning this course of clindamycin was actually prescribed in late August and she has been taking the antibiotic only sporadically. She denies fevers chest pain shortness of breath nausea vomiting. Physical Examination: Afebrile heart rate 113 vitals otherwise normal Patient does have swelling over the left mandible no fluctuance she has clear speech she does not have trismus there is no sublingual edema she has widespread dental decay the swelling seems to be focused over the left first mandibular molar but I do not appreciate a focal abscess amenable to incision and drainage here in the emergency department Neck is supple No lymphadenopathy Test Results: Not indicated Emergency Department Course and Treatment: At this time patient does not have an abscess I am able to incise and drain here. Patient was given a prescription for Levaquin. She was advised to keep her appointment with dentistry and was discharged home. Treatment Plan: [] Disposition: Discharge Impression: Dental abscess This note was generated with [employer] dictation software. It may contain incorrect words, spelling, and punctuation that were not noted in review of the chart prior to signing ED Disposition - Plan for ED Patient: Referrals: Jamari Zhang DO [Primary Care Provider] -
--- NOTE | 2018-10-12 11:34 | ED.DEP ---
ED Disposition - Plan for ED Patient: Instructions: ED Abscess Dental Prescriptions: levoFLOXacin tablet [Levaquin] 500 mg PO DAILY #7 tab Referrals: Jamari Zhang DO [Primary Care Provider] -
== END 2018-10-12 11:55 | disposition home or self-care (01) ==
LOC: ED 11:43
PROVIDERS: Emergency Provider Emergency Medicine; Family Provider Student in an Organized Health Care Education/Training Program; PCP Student in an Organized Health Care Education/Training Program
DX: K04.7 Periapical abscess without sinus (principal)
CPT/HCPCS: 99282

== ENCOUNTER 2019-12-07 15:10 | Outpatient (CLI) | payer MEDICAID, SELFPAY ==
[2019-12-07 15:24] VITALS: BMI 18.6
[2019-12-07 15:34] VITALS: BP 98/53; PULSE 72; TEMP 36.5; O2SAT 97
[2019-12-07 15:41] LABS: Mucous, Urine 0 SEEN /hpf (<or=2+); Red Blood Cells-Urine 0 SEEN /hpf (0-5); Squamous Epithelial Cells - UA 0 SEEN /hpf (5-10)
[2019-12-07 15:53] LABS: Color, Urine Straw (Yellow); Glucose, Dipstick Normal (Normal); Ketone-Dipstick Negative (Negative); Leukocyte Esterase-Dipstick Negative /ul (Negative); Nitrite-Dipstick Negative (Negative); Occult Blood-Urine Negative /ul (Negative); Protein-Dipstick Negative (Negative); Specific Gravity, Urine 1.015 (1.002-1.030); Urine Bilirubin Dipstick Negative (Negative); Urine Clarity Clear (Clear); Urine Urobilinogen Normal (Normal)
[2019-12-07 16:00] LABS: Bacteria RARE /hpf (None Seen); White Blood Cells 0-5 SEEN /hpf (0-5)
--- NOTE | 2019-12-07 17:03 | OB.TRI.NOTE ---
History of Present Illness Date of Service: 12/07/19 Was patient seen by the physician?: Yes Reason For Visit: ABDOMINAL PAIN Date of Service: 12/07/19 Final PABLO: 02/24/20 Final PABLO Source: US <20 weeks Gestational age: 28 Weeks and 5 Days History of Present Illness: 29-year-old 10 para 4 presents at 28-5/7 weeks complaining of some abdominal pain. Patient reports that her 5-year-old was having a tantrum and struck her in the abdomen with just her body. She denies any fall. She got concerned and wanted to come to labor and delivery to have the baby's heartbeat checked. She denies any gross vaginal bleeding or leaking of fluid. She is not having any regular contractions. Allergies amoxicillin [Amoxicillin] Allergy (Verified 10/12/18 11:03) Hives cefixime [From Suprax] Allergy (Verified 10/12/18 11:03) Hives lactulose Allergy (Verified 10/12/18 11:03) Hives oxycodone HCl [From Percocet] Adverse Reaction (Verified 10/12/18 11:03) Abd cramps/diarrhea Laboratory Studies: Laboratory Tests 12/07/19 Range/Units 15:20 Urine Color Straw (Yellow) Urine Clarity Clear (Clear) Urine pH 8.0 (5.0 - 8.0) Ur Specific Estill 1.015 (1.002-1.030) Urine Protein Negative (Negative) mg/dl Urine Glucose (UA) Normal (Normal) mg/dl Urine Ketones Negative (Negative) mg/dl Urine Occult Blood Negative (Negative) /ul Urine Nitrite Negative (Negative) Urine Bilirubin Negative (Negative) mg/dL Urine Urobilinogen Normal (Normal) mg/dl Ur Leukocyte Esterase Negative (Negative) /ul Urine RBC 0 SEEN (0-5) /hpf Urine WBC 0-5 SEEN (0-5) /hpf Ur Squamous Epith Cells 0 SEEN (5-10) /hpf Urine Bacteria RARE (None Seen) /hpf Urine Mucus 0 SEEN (<or=2+) /hpf Physical Exam Vitals: Vital Signs Temp Pulse BP Pulse Ox 97.7 F L 72 98/53 L 97 12/07/19 15:34 12/07/19 15:34 12/07/19 15:34 12/07/19 15:34 General: Alert, Oriented x3, Cooperative Abdomen: Soft, Non Tender, Non-Distended, Gravid NST - FHR Rate Baby A Baseline: 140 Variability:: Moderate Accelerations:: 15 x 15 Decelerations:: None NST Reactive:: Yes FHR Category:: Category I Uterine Activity:: quiet Impression/Plan A 9-year-old high risk multigravida at 28-5/7 weeks gestation with right lower quadrant abdominal pain. Urinalysis is negative. Abdomen is soft and nontender at this time. No evidence of labor. Patient was reassured and discharged home to follow-up in the office as scheduled or prn.
== END 2019-12-07 16:30 | disposition home or self-care (01) ==
LOC: WPOUT 15:21 → WP 15:22
PROVIDERS: PCP Student in an Organized Health Care Education/Training Program; Visit Provider Obstetrics & Gynecology
DX: O26.893 Other specified pregnancy related conditions, third trimester (principal); R10.31 Right lower quadrant pain; Z3A.28 28 weeks gestation of pregnancy
CPT/HCPCS: 59025; 59050; 81001; 99218; G0378

== ENCOUNTER 2020-02-08 21:18 | Outpatient (CLI) | payer MEDICAID, SELFPAY ==
[2020-02-08 21:33] VITALS: BP 108/64; PULSE 81; PULSE 82; TEMP 36.5; O2SAT 97
--- NOTE | 2020-02-09 14:52 | OB.TRI.PN ---
Progress Notes Date of Service: 02/08/20 Progress Note: presents at 37w5d for contractions and back pain. Good movement, no vaginal bleeding or leakage of fluid. O: FHT 125, moderate variability, accels, variable decel, reactive TOCO: none Cervical exam: 1cm A: False labor P: 1) False labor. Labor instructions reviewed and discharged home. 2) Relief measures, warm bath and tylenol for pain.
== END 2020-02-08 22:10 | disposition home or self-care (01) ==
PROVIDERS: PCP Student in an Organized Health Care Education/Training Program; Referring Provider Advanced Practice Midwife; Visit Provider Advanced Practice Midwife
DX: O47.1 False labor at or after 37 completed weeks of gestation (principal); Z3A.37 37 weeks gestation of pregnancy
CPT/HCPCS: 59025; 59050; 99218; G0378

== ENCOUNTER 2020-02-17 07:10 | Inpatient (IN) | payer MEDICAID, SELFPAY ==
[2020-02-17] VITALS (41 sets, daily range): BP systolic 89–112; BP diastolic 52–69; PULSE 55–88; RESP 14–16; TEMP 36.1–37.2; O2SAT 89–100
[2020-02-17] MEDS: Lactated Ringers 1,000 ML 50 ML IV (07:30)
[2020-02-17 07:51] LABS: Absolute Lymphocyte Count 1.67 X10^3/uL (0.83-4.51); Absolute Neutrophil Count 4.7 X10^3/uL (2.0-7.7); Basophil# 0.04 X10^3/uL; Basophil% 0.5 % (0-1); Eosinophil# 0.08 X10^3/uL; Eosinophils% 1.1 % (0-5); Hematocrit 34.1 % (37-47); Hemoglobin 11.4 g/dL (12.0-15.0); Lymphocyte # 1.67 X10^3/ul (4.0); Lymphocyte % 22.8 % (19-41); Mean Corp Hgb Conc 33.4 g/dL (32-36); Mean Corpuscular Hgb 31.2 pg (27.0-32.0); Mean Corpuscular Volume 93.4 fL (81-99); Mean Platelet Vol. 9.5 fl (6.2-12.0); Monocyte# 0.79 X10^3/uL; Monocyte% 10.8 % (0-10); NRBC Flagged by Analyzer 0 % (0-5); Neutrophil # 4.71 X10^3/uL (2.7-7.7); Neutrophil % 64.4 % (47-70); Platelet Count 125 K/mm3 (150-450); RBC Distribution Width CV 13.1 % (11.6-14.6); RBC Distribution Width SD 44.4 fl (35.1-43.9); Red Blood Count 3.65 M/mm3 (4.2-5.4); White Blood Count 7.3 K/mm3 (4.4-11.0)
[2020-02-17] MEDS: Oxytocin 30 units/NS 500 ml 30 UNITS/500 ML IV.SOLN IV (08:20)
[2020-02-17] MEDS: Lactated Ringers 500 ML 999 ML IV ×2 (09:19→10:39)
[2020-02-17] MEDS: fentaNYL-bupivacaine (epidural) 100 ML BAG EPIDURAL (11:22)
[2020-02-17] MEDS: Lactated Ringers 1,000 ML 200 ML IV (14:37)
[2020-02-17] MEDS: Oxytocin 30 units/NS 500 ml 30 UNITS/500 ML IV.SOLN 334 UNITS IV (15:32)
--- NOTE | 2020-02-17 15:53 | PCM.HP.OB ---
History Date of Admission: 02/17/20 Final PABLO: 02/24/20 Final PABLO Source: US <20 weeks Gestational age: 39 Weeks and 0 Days History of this : This is a 29 year-old, G [], P [], at 39 weeks gestational age. Allergies amoxicillin [Amoxicillin] Allergy (Verified 10/12/18 11:03) Hives cefixime [From Suprax] Allergy (Verified 10/12/18 11:03) Hives lactulose Allergy (Verified 10/12/18 11:03) Hives oxycodone HCl [From Percocet] Adverse Reaction (Verified 10/12/18 11:03) Abd cramps/diarrhea Home Medications: Home Medications Lactose-Reduced Food [Ensure Liquid] 237 ml PO DAILY PRN PRN 02/08/20 Vits [Prenatabs FA] 1 tab PO DAILY 02/08/20 Smoking Status: Never smoker Alcohol: None Number of Fetus(es): 1 History Past Pregnancies: Past Pregnancies Delivery Date Name GA/ Weeks Outcome Route Wt Sex Labor Length Anesthesia Delivery Location Provider FOB Labs: See [facility] H&P Physical Exam Vitals: Vital Signs Temp Pulse BP Pulse Ox 97.5 F L 71 92/52 L 96 02/17/20 14:45 02/17/20 15:49 02/17/20 15:49 02/17/20 15:24 General: Alert, Oriented x3 Abdomen: Soft, Non Tender, Non-Distended, Gravid Extremities:: No tenderness/swelling Neurological: Cranial nerves II-XII grossly intact WEB DEVELOPMENT INSTRUCTOR: Normal external genitalia Estimated gestational size: Appropriate for gestational size Presentation: Cephalic Cervix Dilation (cm): 3 - per Katia Beaver CNM; AROM on admission for clear fluid Station: -2 Effacement (%): 60 Assessment/Plan All Active Problems Abdominal pain affecting (Acute) This is a 29 year-old, G10, P4, at 39 weeks gestational age. Admit to L&D Elective induction - informed consent signed, pitocin & amniotomy GBS - negative Pain - epidural COVID negative EFW - less than 4500g, patient with adequate pelvis Heme - patient s/p IV iron this for anemia and has been monitored closely for mild thrombocytopenia Routine care
--- NOTE | 2020-02-17 16:10 | PCM.OPRPT ---
Vaginal Delivery Maternal Presentation: Elective Induction Method of Induction: Pitocin, Amniotomy Amniotic Membrane Rupture Type: Artificial Amniotic Fluid Description: Clear Final PABLO: 02/24/20 Gestational age: 39 Weeks and 0 Days Date of Procedure: 02/17/20 Pre-Operative Diagnosis: (1) 39wk IUP (2) Elective induction Post-Operative Diagnosis: Same and (3) Non reassuring heart tracing Surgery/ Procedure Performed: Vacuum Assisted Vaginal Delivery Type of Anesthesia: Epidural Description of Procedure: Patient prepped and draped in stirrups when C/C/+2. She pushed well but fhts were dropping to 60's-70's and persisting. Decision made to use vacuum. head position confirmed and vacuum placed on head (this position also confirmed). With next maternal push & 1 pull of vacuum the head began to deliver. Vacuum released and head then gently guided to allow delivery of anterior and posterior shoulders. No excess traction placed on head. Body delivered and infant placed on maternal abdomen. 3VC clamped and cut in delayed fashion. Placenta delivered with gentle traction and good uterine tone obtained. Presentation: VANESSA Placental Delivery Description: Expressed Placenta Disposition: [facility] Cord Vessel Description: 3 Vessels Cord Entanglement: None Estimated Blood Loss: 350ml Infant A gender: Male - Chevy (1 minute): 8 (5 minute): 9 Episiotomy Description: None Laceration: 2nd degree - perineal - repaired with 3-0 vicryl Medications given after delivery: IV Pitocin Complications: None
[2020-02-17] MEDS: Acetaminophen 500 MG Tablet 1000 MG PO (19:48)
[2020-02-17] MEDS: Ibuprofen 600 MG Tablet PO (19:48)
[2020-02-18] VITALS (7 sets, daily range): BP systolic 93–109; BP diastolic 54–77; PULSE 60–76; RESP 16; TEMP 36.9–37.3
[2020-02-18] MEDS: Ibuprofen 600 MG Tablet PO ×2 (07:07→13:22)
--- NOTE | 2020-02-18 08:12 | DCINST_ITS ---
Discharge Diet: No Restrictions Discharge Activity: Return to Normal Activity, May not drive while taking narcotic pain medications., May Shower May resume sexual activity in: 4-6 weeks Additional Activity Instructions:: Nothing in the vagina for 4-6 weeks. You may return to work/school in 6 weeks. Call your doctor if your incision/area has: Continuous Slow Oozing, Sudden Increased Bleeding, Increased Pain/ Swelling, Increased Redness, Foul Smelling Discharge Additional Instructions: If you experience any of the following, contact your healthcare provider. * Bleeding that soaks a pad every hour for 2 hours * Fever 100.4 or higher * Unrelieved incision or abdominal pain * Swelling, redness, discharge or bleeding from your incision or episiotomy site * Your incision begins to separate * Problems urinating (including inability to urinate or burning while urinating). * Visual changes * Severe headache * Flu-like symptoms * Pain or redness in one of both of your breasts * Pain, warmth, tenderness or swelling in your legs, especially the calf area * Frequent nausea and vomiting * Symptoms of depression or anxiety If you experience any of the following, call 911 or go to the nearest Emergency Room. * Chest pain * Problems breathing * Seizure activity * Partial or complete paralysis of a body part, slurred speech, weakness or drooping of the face, or a sudden inability to walk or hold your balance Allergies/Adverse Reactions: Allergies amoxicillin [Amoxicillin] Allergy (Verified 10/12/18 11:03) Hives cefixime [From Suprax] Allergy (Verified 10/12/18 11:03) Hives lactulose Allergy (Verified 10/12/18 11:03) Hives oxycodone HCl [From Percocet] Adverse Reaction (Verified 10/12/18 11:03) Abd cramps/diarrhea Medications to take at Discharge Lactose-Reduced Food [Ensure Liquid] 237 ml PO DAILY PRN PRN 02/08/20 Vits [Prenatabs FA ] 1 tab PO DAILY 02/08/20 Please Follow Up With: Jens Kendrick MD - [phone] When: Call to make an appointment with your doctor's office in 1-2 weeks virtually and 6 weeks in office. we will schedule your tubal Primary Care Physician: Jamari Zhang DO [Primary Care Provider] - Test Results: Test results from this visit will be discussed in further detail at your follow- up appointment, if applicable.
--- NOTE | 2020-02-18 08:14 | PCM.PN.OB ---
Subjective: pain well controlled, average lochia - Physical Exam Vitals/I&O's: Vital Signs Temp Pulse Resp BP Pulse Ox 99.1 F 75 16 93/67 98 02/18/20 03:43 02/18/20 03:44 02/18/20 03:43 02/18/20 03:44 02/17/20 16:34 Oxygen Delivery Method Room Air Weight: 48.1 kg Body Mass Index (BMI) 20.0 Intake and Output for Last 24 Hours 02/16/20 02/17/20 02/18/20 23:59 23:59 23:59 Intake Total 2556.09 / 2556.09 Output Total 600 / 600 Balance 1956.09 / 195.09 General: Alert, Cooperative, No apparent distress Laboratory Results 02/17/20 07:30: Blood Type O POSITIVE, Antibody Screen NEGATIVE Current Medications Acetaminophen (Tylenol) 1,000 mg PO Q8H PRN PRN PRN Reason: Pain Score 1-3/10 Last Admin: 02/17/20 19:48 Dose: 1,000 mg Documented by: Bisacodyl (Dulcolax) 10 mg RECTAL UD PRN PRN Reason: If no BM Dibucaine (Dibucaine) 1 applic TOPICAL TID PRN PRN; Protocol PRN Reason: Discomfort Hydrocortisone (Hytone) 1 applic TOPICAL TID PRN PRN; Protocol PRN Reason: Discomfort Ibuprofen (Motrin) 600 mg PO Q6H PRN PRN PRN Reason: Pain Score 1-3/10 Last Admin: 02/18/20 07:07 Dose: 600 mg Documented by: Methylergonovine Maleate (Methergine) 0.2 mg IM X1 PRN PRN Reason: Excess bleeding/uterine atony Ondansetron HCl (Zofran) 4 mg IV Q4H PRN PRN PRN Reason: Nausea Oxycodone HCl (Oxyir) 5 - 10 mg PO Q4H PRN PRN PRN Reason: Pain Score 4-10/10 Senna/Docusate Sodium (Senokot-S, Jailyn-Colace) 1 - 2 tablet PO DAILY PRN PRN PRN Reason: Constipation Simethicone (Mylicon) 80 mg PO PCHS PRN PRN Reason: Indigestion/Stomach pain Sodium Chloride () 5 - 15 ml IV UD PRN PRN Reason: SALINE FLUSH Medical Necessity - Tobacco Use Smoking Status: Never smoker Assessment/Plan All Active Problems (Last Updated 02/17/20 @ 15:[address] Jens Kendrick MD) Abdominal pain affecting (Acute) PPD#1 doing well bottle feeding will schedule tubal for patient routine care patient desires d/c home later today if ok w/ peds
[2020-02-18] MEDS: Acetaminophen 500 MG Tablet 1000 MG PO (09:29)
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
== END 2020-02-18 19:20 | disposition home or self-care (01) | DRG 560 ==
PROVIDERS: Admitting Provider Obstetrics & Gynecology; PCP Student in an Organized Health Care Education/Training Program; Visit Provider Obstetrics & Gynecology
DX: O75.89 Other specified complications of labor and delivery (principal); R10.9 Unspecified abdominal pain; O76 Abnormality in fetal heart rate and rhythm complicating labor and delivery; O70.1 Second degree perineal laceration during delivery; Z3A.39 39 weeks gestation of pregnancy; Z37.0 Single live birth
CPT/HCPCS: 59050; 85025; 86850; 86900; 86901; 99218; J7120; G0378

== ENCOUNTER 2020-03-26 11:28 | Day surgery (SDC) | payer MEDICAID, SELFPAY ==
[2020-03-19 14:45] LABS: Hematocrit 40.6 % (37-47); Hemoglobin 12.8 g/dL (12.0-15.0); Mean Corp Hgb Conc 31.5 g/dL (32-36); Mean Corpuscular Hgb 29.9 pg (27.0-32.0); Mean Corpuscular Volume 94.9 fL (81-99); Mean Platelet Vol. 9.6 fl (6.2-12.0); Platelet Count 246 K/mm3 (150-450); RBC Distribution Width CV 11.5 % (11.6-14.6); RBC Distribution Width SD 40.1 fl (35.1-43.9); Red Blood Count 4.28 M/mm3 (4.2-5.4); White Blood Count 6.1 K/mm3 (4.4-11.0)
[2020-03-19 14:58] LABS: International Normalized Ratio 1.1; Prothrombin Time (Protime)PT. 13.3 SECONDS (11.7-14.9)
[2020-03-19 14:59] LABS: Partial Thromboplast Time 26.2 Seconds (24.1-36.2)
--- NOTE | 2020-03-23 12:32 | HP.PCM_ITS ---
History and Physical Date of Admission: 03/26/20 HPI: The patient is a 29 year old female presenting for pre-operative visit. She is scheduled for?laparoscopic bilateral salpingectomy, for?sterilization request on?03/26/2020. ??Procedure discussed along with risks, benefits and complications. ?Other alternatives discussed for management. Consent form signed??Yes.? PAST MEDICAL HISTORY PAST MEDICAL HISTORY Diagnosis Date ? Anemia complicating 12/25/2013 ? Chlamydia 11/2010 ? Dysthymic disorder ? ? Depression (non-psychotic) ? Hypothyroidism ? ? Iron deficiency ? ? depression 12/03/2012 ? Strain of unspecified muscle and tendon at ankle and foot level, right foot, initial encounter 10/13/2017 ? ? PAST SURGICAL HISTORY PAST SURGICAL HISTORY Procedure Laterality Date ? PAST SURGICAL HISTORY OF ? 05/20/14 ? Right open reduction internal fixation clavicle ? TONSILLECTOMY HX ? ? ? TYMPANOSTOMY LOCAL; UNILATERAL ? CURRENT MEDICATIONS Current Outpatient Medications Medication Sig Dispense Refill ? cetirizine (ZYRTEC) 10 mg tablet Take 1 tablet by mouth once daily. 10 Each 0 ? blood pressure test kit-small (BLOOD PRESSURE MONITOR SM CUFF) kit 1 Kit once daily. Check blood pressure before each virtual visit. 1 Kit 0 ? Food Supplement, Lactose-Free (ENSURE ACTIVE MUSCLE HEALTH) liqd Take 237 mL by mouth four times daily for 7 days. 6636 mL 12 ? PNV95/FERROUS FUMARATE/FA ( ORAL) Take ?by mouth. ? ? ? No current facility-administered medications for this visit.? ? ALLERGIES:?Amoxicillin, Lactulose, Percocet [Oxycodone-Acetaminophen], and Suprax [Cefixime] ? PERSONAL HISTORY:? SOCIAL HISTORY Social History ? Tobacco Use ? Smoking status: Never Smoker ? Smokeless tobacco: Never Used Substance Use Topics ? Alcohol use: Not Currently ? ? Binge frequency: Less than monthly ? Drug use: No ? FAMILY HISTORY:? FAMILY HISTORY FAMILY HISTORY Problem Relation Age of Onset ? Diabetes Mother ? ? Heart Mother ? ? Hypertension Mother ? ? Lipids Mother ? ? Stroke Mother ? ? Arthritis Father ? ? Hypertension Father ? ? No Known Problems Sister ? ? No Known Problems Brother ? ? Cancer Paternal Grandmother ? ? No Known Problems Paternal Grandfather ? ? No Known Problems Daughter ? ? other (celiac disease) Daughter ? ? No Known Problems Son ? ? No Known Problems Son ? ? REVIEW OF SYMPTOMS: GENERAL: denies fevers or chills ENDOCRINOLOGY: has not been on steroids Cardiology : denies palpitations or chest pain Respiratory: denies SOB or cough Hematology: denies history of prolonged bleeding or easy bruising or VTE Allergy: Denies history of personal or family history of allergy to anesthesia ? ? PHYSICAL EXAMINATION: ? VITALS:?Last menstrual period 05/07/2019, unknown if currently . ? GENERAL:??The patient is well nourished, well hydrated in no acute distress. ?, The patient is oriented to time, place, and person. NECK:?Supple. No lynphadenopathy, normal thyroid, no thyromegaly. LUNGS:?Clear to auscultation bilaterally. no wheezes, rhonchi or rales HEART:?Regular rate and rhythm, Normal heart sounds and No murmurs or gallops GENITALIA:?Normal external genitalia, Urethral meatus normal, Bladder nontender, normal vagina and normal vaginal tone, normal cervix, normal uterus, size and consistency, normal adnexa without masses or tenderness and perineum WNL ? IMPRESSION:?Risks, benefits and alternatives to sterilization have been discussed with the patient. ?She declines reversible options including LARC. ?She understands sterilization is permanent, irreversible, risks of failure, regret and ectopic. ?In addition she understands there are surgical risks as well. ?Her questions were answered to her satisfaction and consent was signed ? ? PLAN:???Laparoscopic bilateral salpingectomy ? I have reviewed and updated past medical and surgical history, medications and allergies. This H&P was completed in my office on 03/23/2020. Procedure Criteria Procedure Type: Elective COVID Risk Discussion: The surgeon/proceduralist and patient have discussed in detail the risk of exposure to and/or potential harm posed by the COVID-19 virus with having a s urgery/procedure at this time versus the risk of delaying the surgery/procedure. It is not possible to know either the risk of delaying the surgery or procedure or chance of getting an infection with perfect accuracy, but a joint decision was made between the patient and the surgeon/proceduralist to proceed at this time with the scheduled surgery/procedure as indicated on the consent form.
[2020-03-26 11:49] LABS: Internal QC Validated? YES +Cl - CLEAR BKGD; Pregnancy, Urine Negative Negative
[2020-03-26 12:05] VITALS: BP 106/67; PULSE 62; RESP 16; TEMP 37; O2SAT 100; BMI 16.8
[2020-03-26] MEDS: Celecoxib 200 MG Capsule PO (12:15)
[2020-03-26] MEDS: Lactated Ringers 1,000 ML 100 ML IV (12:15)
[2020-03-26] MEDS: Acetaminophen 500 MG Tablet 1000 MG PO (12:16)
--- NOTE | 2020-03-26 13:00 | FALS_PTH ---
PATIENT: LAILA HARDING LOC: [facility] U#:[id number] AGE/SX: 29/F ROOM: RE03/26/[address]: Dr. Elli Schultz, MDDOB: 1990 BED: DIS: 03/26/2020 SPEC #: [id number] RECD: 03/26/20 15:26 STATUS: LATIA RETodd #: [id number] SHAVON: 03/26/20 13:[address]: Elli Schultz DEPT: SURGICAL PATHOLOGY RECD BY: Simeon Delgadillo ENTERED: 03/27/20 08:10 SP TYPE: FALL TUBES OTHR DR: Dr. Jamari Zhang, Tissues: Fallopian tube Procedures: Surgery Specimen Level II HEADER OPERATION: Laparoscopic salpingectomy PRE-OP DIAGNOSIS: Desired sterilization TISSUE SUBMITTED: Bilateral fallopian tubes MICROSCOPIC DIAGNOSIS Bilateral fallopian tubes, salpingectomy: Bilateral fallopian tubes including fimbrial ends, no pathologic diagnosis. A paratubal cyst. SJ:dania 03/30/20 MICROSCOPIC DESCRIPTION Slides are reviewed. GROSS DESCRIPTION Received in fixative is one container labeled with the patient's name and designated bilateral fallopian tubes. The specimen consists of two fallopian tubes with an average length of 4.5 cm and has an average diameter of 0.6 cm. Both fallopian tubes have normal fimbriated ends. One fallopian tube contains a smooth, glistening paratubal cyst containing clear fluid. The cyst measures 1 cm in greatest dimension. Skiving Machine Operator sections are submitted in two cassettes as follows: 1 - fallopian tube with paratubal cyst, 2 - the other fallopian tube. / AM:dania 03/27/20 TC:5 CPT: 84424 x2
--- NOTE | 2020-03-26 13:21 | DCINST_ITS ---
Discharge Diet: No Restrictions, - - Increase fluid intake for 48 hours. Discharge Activity: Return to Normal Activity, May Drive - when you are no longer taking narcotic pain medications., May Shower, May Take a Tub Bath - in 7 days., - - Ambulate often the next week after surgery. Additional Activity Instructions:: Nothing in the vagina for the next 5 days. Call your doctor if your incision/area has: Continuous Slow Oozing, Sudden Increased Bleeding, Increased Pain/ Swelling, Increased Redness, Foul Smelling Discharge, Swelling at the incision site Call your doctor if you observe: Fever of 101 or Higher Cleanse incision/area with: - - you have skin glue over incision sites- let soap and water run over incision sites and dab dry. Allergies/Adverse Reactions: Allergies amoxicillin [Amoxicillin] Allergy (Verified 10/12/18 11:03) Hives cefixime [From Suprax] Allergy (Verified 10/12/18 11:03) Hives lactulose Allergy (Verified 10/12/18 11:03) Hives oxycodone HCl [From Percocet] Adverse Reaction (Verified 10/12/18 11:03) Abd cramps/diarrhea Medications to take at Discharge Lactose-Reduced Food [Ensure Liquid] 237 ml PO DAILY PRN PRN 02/08/20 Vits [Prenatabs FA ] 1 tab PO DAILY 02/08/20 Ibuprofen [Motrin] 600 mg PO Q6H PRN PRN #60 tab 03/26/20 SimETHICONE [Mylicon] 80 mg PO 4X/DAY #20 tab 03/26/20 The following prescriptions were given: Ibuprofen [Motrin] 600 mg PO Q6H PRN PRN #60 tab PRN Reason: Pain Or Fever Transmission Status: Pending to [facility] SimETHICONE [Mylicon] 80 mg PO 4X/DAY #20 tab Transmission Status: Pending to [facility] Primary Care Physician: Jamari Zhang DO [Primary Care Provider] - Test Results: Test results from this visit will be discussed in further detail at your follow- up appointment, if applicable. Please Follow Up With: lEli Schultz MD When: 2 weeks for post op check
[2020-03-26] MEDS: Bupivacaine Mpf 0.5% 30 ML VIAL (13:50)
--- NOTE | 2020-03-26 14:08 | OP.PCM_ITS ---
Report of Operation Date of Procedure: 03/26/20 - start 1350, end [id number] Pre-Operative Diagnosis: desires sterilization Post-Operative Diagnosis: same Surgery/Procedure Performed:: laparoscopic bilateral salpingectomy Description of Surgical Findings:: Normal tubes and ovaries. The uterine manipulator perforated thru fundal aspect. recycling operations manager: Jacklyn Alfred Type of Anesthesia:: General Special Medications: 0.5% marcaine Specimen's removed: bilateral fallopian tubes Drains: none Estimated Blood Loss (mL): 10 Fluids Replaced: 800cc Description of Procedure: After informed consent was obtained patient was taken to the operating room she was placed in supine position she was given anesthesia. She was then placed in the [facility] and she was prepped and draped in normal sterile fashion. Bladder was drained prior to the start of procedure. At this time attention was turned to the vaginal portion where weighted speculum placed at posterior fornix vagina single-tooth tenaculum was used to gently grasp the internal the cervix. uterus was gently sounded to approximately 7cm. Uterine manipulator was placed without difficulty- however perforation noted. Galloway manipulator then placed. Legs then placed in parallel with the abdomen the tenaculum and the weighted speculum were removed. 2 towel clamps were placed at level of umbilicus. Marcaine was injected infraumbilical and a small incision was made. The 5 mm trocar was placed under direct visualization. CO2 gas was used to insufflate the intra-abdominal cavity. Upon inspection no gross abnormalities appreciated- the uterus tubes and ovaries appeared to be normal. At this time then the LLQ and RLQ ports were placed First Marcaine was injected and small incision was made a knife and the 5 mm trocars were placed. At this time then tubes were traced back to the fimbriated ends. Ligasure was used to coagulate and ligate along mesosalpinx bilaterally until tubes removed completely. Good hemostasis was appreciated. At this time procedure was deemed complete successful. Velma placed over perforation site- minimal bleeding noted. ancef was given intraop. The gas was desufflated on from the intra- abdominal cavity. The trochars were removed. Skin was closed using 4-0 Monocryl in a subcutaneous fashion. Dermabond glue was placed. Instrument lap and needle counts were correct ?2. The uterine manipulator was removed. Vaginal sweep was performed it was negative. There were no complications anticipated normal postoperative course for this patient. Grafts/Implants Used: none - Complications incidental uterine peforation with uterin manipulator- ancef 1gram given - Admit VTE Documentation VTE Present on Admission: Yes VTE Mechan Device Prophylaxis: SCD's VTE Pharm Prophylaxis ordered?: No
[2020-03-26 14:45] VITALS: BP 105/76; BP 106/67; PULSE 58; RESP 16; O2SAT 95
[2020-03-26 15:00] VITALS: BP 106/67; BP 111/82; PULSE 57; RESP 16; O2SAT 100
[2020-03-26 15:15] VITALS: BP 106/67; BP 111/76; PULSE 55; RESP 16; O2SAT 100
[2020-03-26 15:22] VITALS: BP 106/67; BP 111/82; PULSE 58; RESP 16; TEMP 36.4; O2SAT 100
[2020-03-26 16:22] VITALS: BP 104/92; BP 106/67; PULSE 61; RESP 16; TEMP 36.6; O2SAT 100
== END 2020-03-26 16:26 | disposition home or self-care (01) ==
LOC: SDC 11:29 → AC 11:32
PROVIDERS: Anesthesiology; PCP Student in an Organized Health Care Education/Training Program; Referring Provider Obstetrics & Gynecology; Visit Provider Obstetrics & Gynecology
PROC: (CPT 58661; principal; 2020-03-26 12:45)
DX: Z30.2 Encounter for sterilization (principal); Z20.828 Contact with and (suspected) exposure to other viral communicable diseases; F32.9 Major depressive disorder, single episode, unspecified
CPT/HCPCS: 58661; 36415; 81025; 85027; 85610; 85730; 87635; 88302; C9803; J7120; U0003

== ENCOUNTER 2021-06-29 00:11 | Emergency (ER) | payer MEDICAID, SELFPAY ==
[2021-06-29 00:12] VITALS: BP 170/90; PULSE 95; RESP 18; TEMP 36.4; O2SAT 99; BMI 16.2
--- NOTE | 2021-06-29 00:47 | EX.ED.DYSGE1 ---
HPI History of Present Illness Chief Complaint: Nausea/Vomiting Informant: patient and spouse/S.O. Narrative Narrative: Patient presents with nausea vomiting diarrhea. Is been going on for about 36 hours. She states has been going through most people in her family. Most of them are lasting about 24 hours or so. Her seems to be a little longer. There have been some subjective fevers. No blood in the vomitus or stool. She gets intermittent abdominal cramping mostly with the vomiting but not in between. Anything she eats or drinks makes the vomiting worse. Nothing really makes it better. PFSH PFSH Medical History Abnormal thyroid blood test Anemia Depression History of thyroid disorder Home Medications food supplemt, lactose-reduced 237 ml PO DAILY PRN PRN 02/08/20 [History Last Taken 02/15/20] ibuprofen 600 mg PO Q6H PRN PRN #60 tab 03/26/20 [Rx Last Taken Unknown] simethicone 80 mg PO 4X/DAY #20 tab 03/26/20 [Rx Last Taken Unknown] ondansetron 4 mg PO Q8H PRN #10 tab 06/29/21 [Rx Last Taken Unknown] Allergy/AdvReac Type Severity Reaction Status Date / Time amoxicillin [Amoxicillin] Allergy Hives Verified 06/29/21 00:14 cefixime [From Suprax] Allergy Hives Verified 06/29/21 00:14 lactulose Allergy Hives Verified 06/29/21 00:14 oxycodone HCl [From Percocet] AdvReac Abd Verified 06/29/21 00:14 cramps/diarrhea Social History Smoking Status: Never smoker ROS ROS ED Constitutional Constitutional ED: Reports subjective Eyes Eyes: Denies blurry vision ENT ENT ED: Denies rhinorrhea or sore throat Cardiovascular Cardiovascular: Denies chest pain or palpitations Respiratory/Chest Respiratory/Chest: Denies cough, dyspnea or sputum Gastrointestinal Gastrointestinal: Reports diarrhea, nausea and vomiting Genitourinary Genitourinary ED: Denies dysuria or hematuria Musculoskeletal Musculoskeletal: Denies myalgias Integumentary Denies rash Neurologic Neurologic: Denies headache(s) Endocrine Endocrinology: Denies polydipsia or polyuria Allergic/Immunologic Allergic/Immunologic ED: Denies mouth swelling or urticaria EXAM Physical Exam Const Vital Signs: 06/29/21 00:12 Temperature 97.6 F L Temperature Source Temporal Pulse Rate 95 Respiratory Rate 18 Blood Pressure 170/90 H Blood Pressure Mean 116 Pulse Ox 99 Oxygen Delivery Method Room Air Positive well nourished and well developed General Appearance ED: well developed and NAD; Negative for cyanotic or diaphoretic HEENT Reports dry mucous membranes Mouth ED: Yes dry mucous membranes Mouth: dry mucous membranes Eyes General Eye ED: Negative for pale conjunctiva or scleral icterus Neck no JVD Resp normal respiratory effort and clear to auscultation bilaterally Cardio regular rate and regular rhythm GI normal to inspection, nondistended, normoactive bowel sounds and non-distended Auscultation: normoactive bowel sounds Palpation: soft; Negative for tender or guarding Extremity General Extremety ED: Negative for edema General Extremity: Negative for edema Neuro Sensorium / Orientation: alert Psych mental status grossly normal Skin no rashes or lesions noted MDM MDM MDM Narrative Medical decision making narrative: Patient's CBC electrolytes glucose renal function are all essentially normal. Urine showed 0-5 white cells. It was clear. There were some nitrites. But no other significant indication of infection. She also has no dysuria. is negative. Patient is rechecked. She is feeling better. Nausea is really resolved. She has drank some fluids. Her abdomen is still benign. We will get her home. If she develops fevers, pains, worsening nausea vomiting she should return. Lab Data Attestation: I reviewed the patient's lab results. Labs: Laboratory Results - last 24 hr 06/29/21 06/29/21 06/29/21 00:40 00:40 00:55 WBC 5.5 RBC 4.44 Hgb 12.9 Hct 38.0 MCV 85.6 MCH 29.1 MCHC 33.9 RDW Std Deviation 38.7 RDW Coeff of Vandana 12.3 Plt Count 164 MPV 9.9 Immature Gran % (Auto) 0.400 Neut % (Auto) 82.9 H Lymph % (Auto) 8.9 L [place] % (Auto) 7.1 Eos % (Auto) 0.2 Baso % (Auto) 0.5 Absolute Neuts (auto) 4.6 Absolute Lymphs (auto) 0.49 L Nucleated RBC % 0 Differential Comment SCANNED Sodium 140 Potassium 3.5 Chloride 108 H Carbon Dioxide 26.0 Anion Gap 6 BUN 13 Creatinine 0.76 Estim Creat Clear Calc 66.65 Est GFR (MDRD) Af Amer 115 Est GFR (MDRD) Non-Af 95 BUN/Creatinine Ratio 17.2 Glucose 103 Calcium 8.8 Urine Color Yellow Urine Clarity Clear Urine pH 5.0 Ur Specific [place] 1.025 Urine Protein 15 H Urine Glucose (UA) Normal Urine Ketones 5 H Urine Occult Blood 50 H Urine Nitrite Positive H Urine Bilirubin 1 H Urine Urobilinogen 1 H Ur Leukocyte Esterase 25 H Urine RBC 0-5 SEEN Urine WBC 0-5 SEEN Ur Squamous Epith Cells 0-5 SEEN Urine Bacteria 1+ Urine Mucus 2+ Urine Test Negative Discharge Plan Triage Chief Complaint: Nausea/Vomiting ED Provider: Ming Ziegler Dx/Rx/DC Orders Clinical Impression: Nausea and vomiting, Dehydration Instructions: ED Vomiting (Adult) Prescriptions: New ondansetron 4 mg tablet,disintegrating 4 mg PO Q8H PRN (Reason: nausea and vomiting) Qty: 10 RF: 0 No Action food supplemt, lactose-reduced 237 ML liquid 237 ml PO DAILY PRN PRN (Reason: weight gain) RF: 0 ibuprofen 600 MG tablet 600 mg PO Q6H PRN PRN (Reason: Pain Or Fever) Qty: 60 RF: 0 simethicone 80 MG tablet 80 mg PO 4X/DAY Qty: 20 RF: 0 Primary Care Provider: Jamari Zhang Referrals: Jamari Zhang, [Primary Care Provider] - 1-2 Days if not improving Disposition Disposition: Home, Self Care
[2021-06-29 00:52] LABS: Absolute Lymphocyte Count 0.49 X10^3/uL (0.83-4.51); Absolute Neutrophil Count 4.6 X10^3/uL (2.0-7.7); Basophil# 0.03 X10^3/uL; Basophil% 0.5 % (0-1); Eosinophil# 0.01 X10^3/uL; Eosinophils% 0.2 % (0-5); Hemoglobin 12.9 g/dL (12.0-15.0); Lymphocyte # 0.49 X10^3/ul (0.83-4.51); Lymphocyte % 8.9 % (19-41); Mean Corp Hgb Conc 33.9 g/dL (32-36); Mean Corpuscular Hgb 29.1 pg (27.0-32.0); Mean Corpuscular Volume 85.6 fL (81-99); Mean Platelet Vol. 9.9 fl (6.2-12.0); Monocyte# 0.39 X10^3/uL; Monocyte% 7.1 % (0-10); NRBC Flagged by Analyzer 0 % (0-5); Neutrophil # 4.55 X10^3/uL (2.7-7.7); Neutrophil % 82.9 % (47-70); POSITIVE DIFFERENTIAL YES; Platelet Count 164 K/mm3 (150-450); RBC Distribution Width CV 12.3 % (11.6-14.6); RBC Distribution Width SD 38.7 fl (35.1-43.9); Red Blood Count 4.44 M/mm3 (4.2-5.4); White Blood Count 5.5 K/mm3 (4.4-11.0)
[2021-06-29] MEDS: Ondansetron 4 MG/2 ML Vial IV (01:00)
[2021-06-29] MEDS: 0.9% Normal Saline 1,000 ML 1000 ML IV (01:00)
[2021-06-29 01:03] LABS: Differential Indicated SCAN CRITERIA MET
[2021-06-29 01:08] LABS: Color, Urine Yellow (Yellow); Glucose, Dipstick Normal (Normal); Ketone-Dipstick 5 mg/dl (Negative); Leukocyte Esterase-Dipstick 25 /ul (Negative); Nitrite-Dipstick Positive (Negative); Occult Blood-Urine 50 /ul (Negative); Protein-Dipstick 15 mg/dl (Negative); Specific Gravity, Urine 1.025 (1.002-1.030); Urine Clarity Clear (Clear); Urine Urobilinogen 1 mg/dl (Normal)
[2021-06-29 01:11] LABS: Anion Gap 6 (5-15); BUN 13 mg/dL (7-18); BUN/Creat Ratio 17.2 RATIO (10-20); Calcium,Total 8.8 mg/dL (8.5-10.1); Chloride 108 mmol/L (98-107); Creatinine, Serum 0.76 mg/dL (0.55-1.02); EST Glomerular Filtration Rate 95 mL/min (>60); Est Glom Filt Rate - Afr Amer 115 mL/min (>60); Estimated Creatinine Clearance 66.65 ml/min; Glucose 103 mg/dL (74-106); Potassium 3.5 mmol/L (3.5-5.1); Sodium Level 140 mmol/L (136-145)
[2021-06-29 01:16] LABS: Urine Bilirubin Dipstick 1 mg/dL (Negative)
[2021-06-29 01:23] LABS: Differential Comment SCANNED
[2021-06-29 01:34] LABS: Bacteria 1+ /hpf (None Seen); Internal QC Validated? YES +Cl - CLEAR BKGD; Mucous, Urine 2+ /hpf (<or=2+); Pregnancy, Urine Negative Negative; Red Blood Cells-Urine 0-5 SEEN /hpf (0-5); Squamous Epithelial Cells - UA 0-5 SEEN /hpf (5-10); White Blood Cells 0-5 SEEN /hpf (0-5)
== END 2021-06-29 02:02 | disposition home or self-care (01) ==
PROVIDERS: Emergency Provider Emergency Medicine; PCP Student in an Organized Health Care Education/Training Program; Visit Provider Emergency Medicine
DX: R11.2 Nausea with vomiting, unspecified (principal); R10.9 Unspecified abdominal pain; E86.0 Dehydration; R19.7 Diarrhea, unspecified
CPT/HCPCS: 80048; 81001; 81025; 85025; 87426; 96374; 99282; J7030; A4216; J2405

== ENCOUNTER 2021-10-02 12:55 | Emergency (ER) | payer MEDICAID, SELFPAY ==
[2021-10-02 12:55] VITALS: BP 79/69; PULSE 106; RESP 16; TEMP 37.3; O2SAT 99; BMI 15.7
[2021-10-02 13:03] VITALS: BP 90/70; PULSE 89; RESP 16; TEMP 36.8; O2SAT 99
--- NOTE | 2021-10-02 13:21 | ED.VIS.GI ---
HPI HPI - GI History of Present Illness Chief Complaint: Abd Pain Informant: patient Abdominal Pain/Flank Pain Onset: Today Context: Gradual Onset (after n/v) Timing: Continuous Quality: Aching Location: - (Periumbilical) Current Severity: Moderate Maximum Severity: Moderate Worsened by: Nothing Relieved by: Nothing Nausea/Vomiting/Emesis GI Symptom: Positive for Nausea and Vomiting Onset: Today Quality: Positive for Nonbilious Episodes: 3 Diarrhea/Melena/Hematochezia GI Symptom: Negative for Diarrhea, Melena and Hematochezia Associated Symptoms Associated Symptoms: Positive for - (Foul-smelling urine off-and-on for the last week or so); Negative for Dysuria, Frequency and Hematuria LMP: Last month; has been irregular for past year since tubal ligation Narrative Narrative: Patient states she woke up in the middle of the night last night, around 11 hours ago, with nausea and ran to the bathroom to vomit. This happened 2 other times today. When she got a shower, she started feeling periumbilical abdominal discomfort and a bifrontal headache. No photophobia, loss of consciousness, focal neurologic deficits, no recent injuries. She felt fine when she went to bed last night. No known sick contacts. No fevers or chills. No diarrhea, bright red blood per rectum, hematemesis. Not that she knows of, but she did have a bilateral tubal ligation last year. Since then, she has had an asymptomatic white discharge off and on which she noticed this morning to, mildly. She denies any vaginal pain. She has had bacterial vaginosis before, and does get vaginal discomfort with that and has none of that now. No recent antibiotics for any reason. [facility] Medical History Abnormal thyroid blood test Anemia Depression History of thyroid disorder Home Medications ibuprofen 600 mg PO Q6H PRN PRN #60 tab 03/26/20 [Rx Last Taken Unknown] dicyclomine 20 mg PO Q6H PRN PRN #20 capsule 10/02/21 [Rx Last Taken Unknown] ondansetron 8 mg PO Q8H PRN PRN #20 tab 10/02/21 [Rx Last Taken Unknown] sulfamethoxazole-trimethoprim 1 tab PO BID #10 tablet 10/02/21 [Rx Last Taken Unknown] Allergy/AdvReac Type Severity Reaction Status Date / Time amoxicillin [Amoxicillin] Allergy Hives Verified 10/02/21 12:57 cefixime [From Suprax] Allergy Hives Verified 10/02/21 12:57 lactulose Allergy Hives Verified 10/02/21 12:57 oxycodone HCl [From Percocet] AdvReac Abd Verified 10/02/21 12:57 cramps/diarrhea Social History Smoking Status: Never smoker ROS ROS ED Constitutional Constitutional ED: Denies chills or fever(s) Eyes Eyes: Denies change in vision or diplopia ENT ENT ED: Denies rhinorrhea or sore throat Cardiovascular Cardiovascular: Denies chest pain or palpitations Respiratory/Chest Respiratory/Chest: Denies cough or dyspnea Gastrointestinal Gastrointestinal: Reports as per HPI, abdominal pain, nausea and vomiting; Denies diarrhea or rectal bleeding Genitourinary Genitourinary ED: Reports as per HPI; Denies dysuria or hematuria Musculoskeletal Musculoskeletal: Denies back pain or neck pain Integumentary Denies abscess or rash Neurologic Neurologic: Reports headache(s); Denies paresthesias or weakness Psychiatric Psychiatric: Denies anxiety or suicidal thoughts EXAM Physical Exam Const Vital Signs: 10/02/21 12:55 10/02/21 13:03 10/02/21 14:10 Temperature 99.1 F 98.3 F 98.5 F Temperature Source Temporal Oral Oral Pulse Rate 106 H 89 76 Respiratory Rate 16 16 16 Blood Pressure 79/69 L 90/70 102/66 Blood Pressure Mean 72 76 78 Pulse Ox 99 99 98 Oxygen Delivery Method Room Air Room Air Room Air Positive well nourished and well developed General Appearance ED: well developed and NAD HEENT Reports moist mucous membranes normocephalic and atraumatic Eyes PERRL and EOMs intact bilaterally Neck full ROM and supple Resp normal respiratory effort and clear to auscultation bilaterally Cardio regular rate, regular rhythm and no murmurs Rate: Negative for tachycardic GI non-distended GI Narrative: Suprapubic tenderness otherwise benign abdomen. Negative García's. Auscultation: normoactive bowel sounds Palpation: soft Back/Spine no CVA tenderness General Back: other FROM Extremity normal to inspection General Extremety ED: Negative for edema, pulses abnormal or tenderness General Extremity: Negative for edema or pulses abnormal Neuro oriented x3, CN's II-XII intact bilaterally, no sensory deficits noted and gait normal Sensorium / Orientation: awake and alert Motor Exam: strength 5/5 throughout Skin no rashes or lesions noted and no wounds MDM MDM MDM Narrative Medical decision making narrative: Urinalysis shows mixed testing with bacteria and nitrite but no pyuria. Will send for culture and treat her empirically for urine infection given her symptoms, her is indeed negative, and her GI symptoms are all feeling much better after Mylanta, Bentyl, and Zofran. She is reassured, discharged stable condition discussed reasons to return. Lab Data Attestation: I reviewed the patient's lab results. Labs: Laboratory Results - last 24 hr 10/02/21 13:20 Urine Color Yellow Urine Clarity Clear Urine pH 7.0 Ur Specific [place] 1.010 Urine Protein 15 H Urine Glucose (UA) Normal Urine Ketones Negative Urine Occult Blood 10 H Urine Nitrite Positive H Urine Bilirubin Negative Urine Urobilinogen 1 H Ur Leukocyte Esterase 25 H Urine RBC 0-5 SEEN Urine WBC 0-5 SEEN Ur Squamous Epith Cells 5-10 SEEN Urine Bacteria 2+ Urine Mucus 0 SEEN Urine Test Negative Discharge Plan Triage Chief Complaint: Abd Pain ED Provider: Jeanmarie Shepherd Dx/Rx/DC Orders Clinical Impression: Acute cystitis without hematuria, Periumbilical abdominal pain, Acute gastritis without hemorrhage Instructions: ED Gastritis (Adult), ED CYSTITIS Female Adult Prescriptions: New dicyclomine 10 MG capsule 20 mg PO Q6H PRN PRN (Reason: abdominal discomfort) Qty: 20 RF: 0 sulfamethoxazole-trimethoprim [sulfamethoxazole-trimethoprim] 1 TABLET tablet 1 tab PO BID Qty: 10 RF: 0 ondansetron [ondansetron] 4 MG tablet 8 mg PO Q8H PRN PRN (Reason: Nausea) Qty: 20 RF: 0 No Action ibuprofen 600 MG tablet 600 mg PO Q6H PRN PRN (Reason: Pain Or Fever) Qty: 60 RF: 0 Primary Care Provider: Jamari Zhang Referrals: Jamari Zhang, [Primary Care Provider] - 3-5 Days if not improving Disposition Disposition: Home, Self Care
[2021-10-02] MEDS: Acetaminophen 325 MG Tablet 650 MG PO (13:30)
[2021-10-02] MEDS: Ondansetron ODT 4 MG Tablet 8 MG PO (13:30)
[2021-10-02] MEDS: Dicyclomine 10 MG Capsule 20 MG PO (13:31)
[2021-10-02 13:32] LABS: Mucous, Urine 0 SEEN /hpf (<or=2+)
[2021-10-02 13:38] LABS: Color, Urine Yellow (Yellow); Glucose, Dipstick Normal (Normal); Ketone-Dipstick Negative (Negative); Leukocyte Esterase-Dipstick 25 /ul (Negative); Nitrite-Dipstick Positive (Negative); Occult Blood-Urine 10 /ul (Negative); Protein-Dipstick 15 mg/dl (Negative); Urine Bilirubin Dipstick Negative (Negative); Urine Clarity Clear (Clear); Urine Urobilinogen 1 mg/dl (Normal)
[2021-10-02] MEDS: Mag Hydrox/Al Hydrox/Simeth 30 ML UDC PO (13:38)
[2021-10-02 13:47] LABS: Bacteria 2+ /hpf (None Seen); Squamous Epithelial Cells - UA 5-10 SEEN /hpf (5-10); White Blood Cells 0-5 SEEN /hpf (0-5)
[2021-10-02 13:49] LABS: Internal QC Validated? YES +Cl - CLEAR BKGD; Pregnancy, Urine Negative Negative
[2021-10-02 14:10] VITALS: BP 102/66; PULSE 76; RESP 16; TEMP 36.9; O2SAT 98
[2021-10-02 14:10] LABS: Red Blood Cells-Urine 0-5 SEEN /hpf (0-5)
[2021-10-02] MEDS: Smz/Tmp Ds Tablet 1 TABLET PO (15:15)
[2021-10-02 15:21] VITALS: RESP 16
== END 2021-10-02 15:21 | disposition home or self-care (01) ==
PROVIDERS: Emergency Provider Emergency Medicine; PCP Student in an Organized Health Care Education/Training Program; Visit Provider Emergency Medicine
DX: N30.00 Acute cystitis without hematuria (principal); R10.33 Periumbilical pain; K29.00 Acute gastritis without bleeding
CPT/HCPCS: 81001; 81025; 99283

== ENCOUNTER 2022-03-02 16:35 | Emergency (ER) | payer MEDICAID, SELFPAY ==
[2022-03-02 16:36] VITALS: BP 88/68; PULSE 88; RESP 16; TEMP 36.3; O2SAT 100; BMI 16.2
--- NOTE | 2022-03-02 18:07 | ED.VIS.GI ---
HPI HPI - GI History of Present Illness Chief Complaint: Abd Pain Informant: patient Abdominal Pain/Flank Pain Onset: Yesterday Context: Gradual Onset Timing: Continuous Quality: Cramping and Stabbing Location: Diffuse Worsened by: Movement Relieved by: Remaining Still Nausea/Vomiting/Emesis GI Symptom: Negative for Nausea or Vomiting Diarrhea/Melena/Hematochezia GI Symptom: Negative for Diarrhea, Melena or Hematochezia Associated Symptoms Associated Symptoms: Negative for Dysuria, Frequency or Hematuria LMP: At the beginning of February Narrative Narrative: Patient presents with back pain and abdominal pain that began yesterday. Patient states the pain started in her low back. Patient states it is now across her abdomen. Patient describes the pain as cramping and stabbing. Patient states it has been constant. Patient states it is over her entire abdomen. Patient states it is worse whenever she moves. Patient states it is better whenever she is still. Patient denies any nausea or vomiting. Patient denies any diarrhea. Patient denies any melena or hematochezia. Patient denies any dysuria, hematuria, or frequency. Patient states her last menstrual period was at the beginning of this month. PFSH PFSH Medical History (Updated 03/02/22 @ 22:[address] Dalton Zhu DO) Abnormal thyroid blood test Anemia Clavicle fracture Depression History of thyroid disorder Home Medications levofloxacin 750 mg tablet 750 mg PO DAILY 5 days #5 tabs 03/02/22 [Rx Last Taken Unknown] ondansetron 4 mg disintegrating tablet 4 mg PO Q8H PRN PRN Nausea #10 tabs 03/02/22 [Rx Last Taken Unknown] Allergy/AdvReac Type Severity Reaction Status Date / Time amoxicillin [Amoxicillin] Allergy Hives Verified 03/02/22 16:36 cefixime [From Suprax] Allergy Hives Verified 03/02/22 16:36 lactulose Allergy Hives Verified 03/02/22 16:36 oxycodone HCl [From Percocet] AdvReac Abd Verified 03/02/22 16:36 cramps/diarrhea Surgical History (Updated 03/02/22 @ 18:[address] Dalton Zhu DO) Hx of tubal ligation Social History Smoking Status: Never smoker ROS ROS ED Constitutional Constitutional ED: Denies chills or fever(s) Eyes Eyes: Denies blurry vision or change in vision ENT ENT ED: Denies rhinorrhea or sore throat Cardiovascular Cardiovascular: Denies chest pain or palpitations Respiratory/Chest Respiratory/Chest: Reports cough; Denies dyspnea Gastrointestinal Gastrointestinal: Reports abdominal pain; Denies nausea or vomiting Genitourinary Genitourinary ED: Denies dysuria or hematuria Musculoskeletal Musculoskeletal: Reports back pain; Denies neck pain Integumentary Denies abscess or rash Neurologic Neurologic: Denies headache(s) or weakness Allergic/Immunologic Allergic/Immunologic ED: Denies mouth swelling or urticaria EXAM Physical Exam Const Vital Signs: 03/02/22 16:36 Temperature 97.3 F L Temperature Source Temporal Pulse Rate 88 Respiratory Rate 16 Blood Pressure 88/68 L Blood Pressure Mean 74 Pulse Ox 100 Oxygen Delivery Method Room Air Positive well nourished and well developed General Appearance ED: well developed HEENT Reports moist mucous membranes Neck supple and no JVD Resp normal respiratory effort and clear to auscultation bilaterally Cardio regular rate, regular rhythm and no murmurs GI normal to inspection, nondistended, normoactive bowel sounds Palpation: soft and tender epigastric, LLQ, RLQ, LUQ, RUQ, periumbilical and suprapubic; Negative for guarding or rebound tenderness present Extremity normal to inspection General Extremety ED: Negative for edema or tenderness General Extremity: Negative for edema Neuro oriented x3, CN's II-XII intact bilaterally and no sensory deficits noted Sensorium / Orientation: alert Motor Exam: strength 5/5 throughout Psych mental status grossly normal Skin no rashes or lesions noted MDM MDM MDM Narrative Medical decision making narrative: Patient was given IV fluids, morphine, and Zofran here. CBC shows a mild anemia with hemoglobin of 11.0 and hematocrit 34.6. Comprehensive metabolic profile was within normal limits. Lipase was normal. Serum hCG was negative. Lactate was normal. PT was INR and PTT were within normal limits. Urinalysis shows a leukocyte esterases of 500 with greater than 100 white blood cells and 3+ bacteria. Urine culture was ordered. Patient was given a dose of Levaquin here. CT scan of the abdomen pelvis was obtained. There is a left ovarian cyst. 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 This was interpreted by the radiologist and reviewed by myself. Patient was advised of her findings. Patient was nauseated on reevaluation. Patient was given a repeat dose of Zofran here. Patient states she wants to go home. Patient was given a prescription for Levaquin and Zofran. Patient was instructed to start with a bland diet and drink plenty of fluids. Patient was instructed to follow-up with her primary care physician in 5 to 7 days. Patient was instructed return if worse in any way. Patient and family understood and were agreeable with the plan. All questions were answered. Lab Data Attestation: I reviewed the patient's lab results. Labs: Laboratory Results - last 24 hr 03/02/22 03/02/22 03/02/22 17:58 17:58 17:58 WBC 8.5 RBC 4.16 L Hgb 11.0 L Hct 34.6 L MCV 83.2 MCH 26.4 L MCHC 31.8 L RDW Std Deviation 38.7 RDW Coeff of Vandana 12.8 Plt Count 197 MPV 10.1 Immature Gran % (Auto) 0.200 Neut % (Auto) 79.2 H Lymph % (Auto) 11.5 L [place] % (Auto) 8.7 Eos % (Auto) 0.2 Baso % (Auto) 0.2 Absolute Neuts (auto) 6.8 Absolute Lymphs (auto) 0.98 Nucleated RBC % 0 PT INR APTT Sodium 141 Potassium 3.9 Chloride 108 H Carbon Dioxide 27.0 Anion Gap 6 BUN 10 Creatinine 0.67 Estim Creat Clear Calc 74.92 Est GFR (MDRD) Af Amer 133 Est GFR (MDRD) Non-Af 110 BUN/Creatinine Ratio 15.0 Glucose 88 Lactic Acid Calcium 9.2 Total Bilirubin 0.20 AST 17 ALT 23 Alkaline Phosphatase 55 Total Protein 7.1 Albumin 3.6 Globulin 3.5 Albumin/Globulin Ratio 1.0 Lipase 136 Serum , Qual NEGATIVE Urine Color Urine Clarity Urine pH Ur Specific [place] Urine Protein Urine Glucose (UA) Urine Ketones Urine Occult Blood Urine Nitrite Urine Bilirubin Urine Urobilinogen Ur Leukocyte Esterase Urine RBC Urine WBC Ur Squamous Epith Cells Urine Bacteria Urine Mucus 03/02/22 03/02/22 03/02/22 18:30 18:30 18:30 WBC RBC Hgb Hct MCV MCH MCHC RDW Std Deviation RDW Coeff of Vandana Plt Count MPV Immature Gran % (Auto) Neut % (Auto) Lymph % (Auto) [place] % (Auto) Eos % (Auto) Baso % (Auto) Absolute Neuts (auto) Absolute Lymphs (auto) Nucleated RBC % PT Cancelled INR Cancelled APTT Cancelled Sodium Potassium Chloride Carbon Dioxide Anion Gap BUN Creatinine Estim Creat Clear Calc Est GFR (MDRD) Af Amer Est GFR (MDRD) Non-Af BUN/Creatinine Ratio Glucose Lactic Acid 0.8 Calcium Total Bilirubin AST ALT Alkaline Phosphatase Total Protein Albumin Globulin Albumin/Globulin Ratio Lipase Serum , Qual Urine Color Yellow Urine Clarity Cloudy Urine pH 8.0 Ur Specific [place] 1.015 Urine Protein 100 H Urine Glucose (UA) Normal Urine Ketones 5 H Urine Occult Blood 150 H Urine Nitrite Negative Urine Bilirubin Negative Urine Urobilinogen Normal Ur Leukocyte Esterase 500 H Urine RBC 0 SEEN Urine WBC >100 SEEN Ur Squamous Epith Cells 0 SEEN Urine Bacteria 3+ Urine Mucus 0 SEEN 03/02/22 19:15 WBC RBC Hgb Hct MCV MCH MCHC RDW Std Deviation RDW Coeff of Vandana Plt Count MPV Immature Gran % (Auto) Neut % (Auto) Lymph % (Auto) [place] % (Auto) Eos % (Auto) Baso % (Auto) Absolute Neuts (auto) Absolute Lymphs (auto) Nucleated RBC % PT 13.7 INR 1.1 APTT 29.9 Sodium Potassium Chloride Carbon Dioxide Anion Gap BUN Creatinine Estim Creat Clear Calc Est GFR (MDRD) Af Amer Est GFR (MDRD) Non-Af BUN/Creatinine Ratio Glucose Lactic Acid Calcium Total Bilirubin AST ALT Alkaline Phosphatase Total Protein Albumin Globulin Albumin/Globulin Ratio Lipase Serum , Qual Urine Color Urine Clarity Urine pH Ur Specific [place] Urine Protein Urine Glucose (UA) Urine Ketones Urine Occult Blood Urine Nitrite Urine Bilirubin Urine Urobilinogen Ur Leukocyte Esterase Urine RBC Urine WBC Ur Squamous Epith Cells Urine Bacteria Urine Mucus Radiography Diagnostic Testing: Clinical Impression(s) from Imaging Studies Abdomen/Pelvis CT 03/02/22 18:12 IMPRESSION: 1. Involuting left ovarian cyst. 2. 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 No obstructing stone. Possible chronic reflux. Electronically Signed: Tiara Babin MD at 20:56 EDT Reading Location ID and State: [id number] / Tel , Service support , Discharge Plan Triage Chief Complaint: Abd Pain ED Provider: Dalton Zhu Dx/Rx/DC Orders Clinical Impression: Urinary tract infection, Nausea and vomiting Instructions: ED Cystitis Female Adult, ED Vomiting (Adult) Prescriptions: New ondansetron [ondansetron] 4 mg tablet,disintegrating 4 mg PO Q8H PRN PRN (Reason: Nausea) Qty: 10 0RF levofloxacin 750 mg tablet 750 mg PO DAILY 5 Days Qty: 5 0RF Primary Care Provider: Jamari Zhang Referrals: Jamari Zhang DO [Primary Care Provider] - 5-7 Days Disposition Disposition: Home, Self Care
--- NOTE | 2022-03-02 18:12 | CT_ITS ---
EXAM: CT ABDOMEN AND PELVIS WITH INTRAVENOUS CONTRAST CLINICAL INDICATION: Abdominal pain -- IV PO Contrast TECHNIQUE: Helically acquired images were obtained of the abdomen and pelvis with intravenous contrast. This CT exam was performed using one or more of the following dose reduction techniques: automated exposure control, adjustment of the mA and/or kV according to patient size, and/or use of iterative reconstruction technique. This report was created using [employer] report generation technology. CONTRAST: Oral and amp; IV Gastrografin and amp; 75mL Isovue-370 COMPARISON: None. FINDINGS: LOWER THORAX: Unremarkable. Lung bases are clear. No cardiomegaly. No significant pericardial effusion. ABDOMEN: LIVER: Unremarkable. Homogeneous. No focal mass. GALLBLADDER AND BILE DUCTS: Unremarkable. No calcified gallstones. No gallbladder distention or wall edema. No intra- or extrahepatic biliary ductal dilation. PANCREAS: Unremarkable. No focal cystic or solid mass. SPLEEN: Unremarkable. Normal size without focal cystic or solid mass. ADRENALS: Unremarkable. No nodules. KIDNEYS AND URETERS: Duplication of the right renal collecting system. Mild lower pole hydronephrosis and hydroureter. No obstructing calcification. 1.6 cm right renal calyceal cyst. 0.8 cm low-attenuation lesion in the left kidney too small to characterize. STOMACH AND BOWEL: Unremarkable. No stomach or bowel distention. No focal inflammatory change. PELVIS: APPENDIX: No evidence of acute appendicitis. BLADDER: Unremarkable. REPRODUCTIVE: 1.9 cm involuting left ovarian cyst. ABDOMEN and PELVIS: INTRAPERITONEAL SPACE: Unremarkable. No ascites or other fluid collection. No free air. BONES/JOINTS: Unremarkable. No suspicious lytic or blastic abnormality. SOFT TISSUES: Unremarkable. No discrete abdominal or pelvic wall hernia. VASCULATURE: Unremarkable. Abdominal aorta is normal in caliber. LYMPH NODES: Unremarkable. No enlarged lymph nodes. CT/Abdomen/Pelvis WITH Contrast IMPRESSION: 1. Involuting left ovarian cyst. 2. 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 No obstructing stone. Possible chronic reflux. Electronically Signed: Tiaar Babin MD at 20:56 EDT Reading Location ID and State: [id number] / Tel , Service support ,
[2022-03-02] MEDS: Morphine 4 MG/ML Syringe IV (18:26)
[2022-03-02] MEDS: Ondansetron 4 MG/2 ML Vial IV ×2 (18:26→22:37)
[2022-03-02] MEDS: 0.9% Normal Saline 1,000 ML 1000 ML IV (18:26)
[2022-03-02 18:38] LABS: Mucous, Urine 0 SEEN /hpf (<or=2+); Red Blood Cells-Urine 0 SEEN /hpf (0-5); Squamous Epithelial Cells - UA 0 SEEN /hpf (5-10)
[2022-03-02 18:43] LABS: Color, Urine Yellow (Yellow); Glucose, Dipstick Normal (Normal); Ketone-Dipstick 5 mg/dl (Negative); Leukocyte Esterase-Dipstick 500 /ul (Negative); Nitrite-Dipstick Negative (Negative); Occult Blood-Urine 150 /ul (Negative); Protein-Dipstick 100 mg/dl (Negative); Specific Gravity, Urine 1.015 (1.002-1.030); Urine Bilirubin Dipstick Negative (Negative); Urine Clarity Cloudy (Clear); Urine Urobilinogen Normal (Normal)
[2022-03-02 18:50] LABS: Internal QC Validated? YES +Cl - CLEAR BKGD; Pregnancy, Serum, hCG Quali. NEGATIVE Negative
[2022-03-02 18:55] LABS: Absolute Lymphocyte Count 0.98 X10^3/uL (0.83-4.51); Absolute Neutrophil Count 6.8 X10^3/uL (2.0-7.7); Basophil# 0.02 X10^3/uL; Basophil% 0.2 % (0-1); Eosinophil# 0.02 X10^3/uL; Eosinophils% 0.2 % (0-5); Hematocrit 34.6 % (37-47); Lymphocyte # 0.98 X10^3/ul (0.83-4.51); Lymphocyte % 11.5 % (19-41); Mean Corp Hgb Conc 31.8 g/dL (32-36); Mean Corpuscular Hgb 26.4 pg (27.0-32.0); Mean Corpuscular Volume 83.2 fL (81-99); Mean Platelet Vol. 10.1 fl (6.2-12.0); Monocyte# 0.74 X10^3/uL; Monocyte% 8.7 % (0-10); NRBC Flagged by Analyzer 0 % (0-5); Neutrophil # 6.75 X10^3/uL (2.7-7.7); Neutrophil % 79.2 % (47-70); Platelet Count 197 K/mm3 (150-450); RBC Distribution Width CV 12.8 % (11.6-14.6); RBC Distribution Width SD 38.7 fl (35.1-43.9); Red Blood Count 4.16 M/mm3 (4.2-5.4); White Blood Count 8.5 K/mm3 (4.4-11.0)
[2022-03-02 18:58] LABS: AST(SGOT) 17 U/L (15-37); Alanine Aminotransfer ALT/SGPT 23 U/L (13-56); Albumin, Serum 3.6 g/dL (3.2-5.0); Alkaline Phosphatase 55 U/L (45-117); Anion Gap 6 (5-15); BUN 10 mg/dL (7-18); Calcium,Total 9.2 mg/dL (8.5-10.1); Chloride 108 mmol/L (98-107); Creatinine, Serum 0.67 mg/dL (0.55-1.02); EST Glomerular Filtration Rate 110 mL/min (>60); Est Glom Filt Rate - Afr Amer 133 mL/min (>60); Estimated Creatinine Clearance 74.92 ml/min; Globulin 3.5 g/dL (2.2-4.2); Glucose 88 mg/dL (74-106); Lipase 136 U/L (73-393); Potassium 3.9 mmol/L (3.5-5.1); Protein, Total 7.1 g/dL (6.4-8.2); Sodium Level 141 mmol/L (136-145)
[2022-03-02 19:01] LABS: Bacteria 3+ /hpf (None Seen); White Blood Cells >100 SEEN /hpf (0-5)
[2022-03-02 19:04] LABS: Lactic Acid 0.8 mmol/L (0.4-1.9)
[2022-03-02 20:02] LABS: International Normalized Ratio 1.1; Prothrombin Time (Protime)PT. 13.7 SECONDS (11.7-14.9)
[2022-03-02 20:03] LABS: Partial Thromboplast Time 29.9 Seconds (24.1-36.2)
[2022-03-02] MEDS: levoFLOXacin IV 750 MG/150 ML BAG 100 MG IV (20:39)
[2022-03-02 22:49] VITALS: BP 107/62
== END 2022-03-02 23:08 | disposition home or self-care (01) ==
PROVIDERS: Emergency Provider Emergency Medicine; PCP Student in an Organized Health Care Education/Training Program; Visit Provider Emergency Medicine
DX: N39.0 Urinary tract infection, site not specified (principal); R11.2 Nausea with vomiting, unspecified
CPT/HCPCS: 74177; 80053; 81001; 83605; 83690; 84703; 85025; 85610; 85730; 87077; 87086; 87088; 87186; 96365; 96366; 96375; 96376; 99283; J7030; Q9967; A4216; J2405

== ENCOUNTER 2022-03-08 11:38 | Emergency (ER) | payer MEDICAID, SELFPAY ==
[2022-03-08 11:39] VITALS: BP 97/74; PULSE 82; RESP 14; TEMP 36.8; O2SAT 100; BMI 16.0
--- NOTE | 2022-03-08 12:44 | EX.ED.UPPERE ---
HPI History of Present Illness Chief Complaint: Upper Extremity Injury Informant: patient and spouse/S.O. Narrative Narrative: Increasing pain right clavicle since yesterday. No direct traumas. 8 years ago had a clavicle fracture from a fall. This was repaired here. No issues until yesterday. From records repaired by Dr. Wilbert Quinn. Concerned there is a screw that is loose. Noted bulging. Patient thin female however states she is gaining more weight since her surgery. PFSH [facility] Medical History (Updated 03/08/22 @ 15:32 by Cirilo Miller MD) Abnormal thyroid blood test Anemia Clavicle fracture Depression History of thyroid disorder Painful orthopaedic hardware Home Medications levofloxacin 750 mg tablet 750 mg PO DAILY 5 days #5 tabs 03/02/22 [Rx Last Taken Unknown] ondansetron 4 mg disintegrating tablet 4 mg PO Q8H PRN PRN Nausea #10 tabs 03/02/22 [Rx Last Taken Unknown] ibuprofen 600 mg tablet 600 mg PO 4X/DAY PRN Pain Or Fever #20 tabs 03/08/22 [Rx Last Taken Unknown] Allergy/AdvReac Type Severity Reaction Status Date / Time amoxicillin [Amoxicillin] Allergy Hives Verified 03/08/22 11:39 cefixime [From Suprax] Allergy Hives Verified 03/08/22 11:39 lactulose Allergy Hives Verified 03/08/22 11:39 oxycodone HCl [From Percocet] AdvReac Abd Verified 03/08/22 11:39 cramps/diarrhea Surgical History Hx of tubal ligation Social History Smoking Status: Never smoker ROS ROS ED Constitutional Constitutional ED: Denies chills, fever(s) or sweats Eyes Eyes: Denies change in vision ENT ENT ED: Denies dysphagia or sore throat Cardiovascular Cardiovascular: Denies chest pain, leg edema, palpitations or racing heartbeat Respiratory/Chest Respiratory/Chest: Denies cough, dyspnea or dyspnea on exertion Gastrointestinal Gastrointestinal: Denies abdominal pain, diarrhea, nausea or vomiting Genitourinary Genitourinary ED: Denies dysuria, hematuria or urinary frequency Musculoskeletal Musculoskeletal: Reports other Details: Right clavicle pain ; Denies back pain, extremity pain or neck pain Integumentary Denies rash or wounds Neurologic Neurologic: Denies headache(s), paresthesias or weakness EXAM Physical Exam Const Vital Signs: 03/08/22 11:39 Temperature 98.2 F Temperature Source Temporal Pulse Rate 82 Respiratory Rate 14 Blood Pressure 97/74 Blood Pressure Mean 81 Pulse Ox 100 Oxygen Delivery Method Room Air Positive well nourished and well developed General Appearance ED: well developed and NAD HEENT Reports moist mucous membranes normocephalic and atraumatic Eyes PERRL, EOMs intact bilaterally and conjunctivae normal General Eye ED: Yes normal appearance of both eyes Neck no lymphadenopathy and supple General: Negative for tenderness Chest Wall Chest: Negative for tenderness Resp normal respiratory effort and normal air movement Effort and Inspection: symmetric chest movement; Negative for respiratory distress Cardio regular rate, regular rhythm and no murmurs Peripheral Pulses: pulses 2+ throughout GI normal to inspection, nondistended, normoactive bowel sounds and non-tender Palpation: Negative for guarding or rebound tenderness present Back/Spine no CVA tenderness and no thoracic nor lumbar tenderness Extremity normal to inspection Extremity Narrative: Right clavicle: Palpation of hardware mid clavicle there is bulging screw type fixture inferior aspect mid clavicle. Skin intact no erythema. No indurations. General Extremety ED: Negative for edema or tenderness General Extremity: Negative for edema Neuro oriented x3 and no sensory deficits noted Sensorium / Orientation: awake and alert Skin no rashes or lesions noted and no wounds MDM MDM MDM Narrative Medical decision making narrative: Pain across clavicle with bulging section. 2 view clavicle was reviewed myself noted mid screw was not intact. Skin is intact. She was given Toradol in the ED prescription for ibuprofen she is given follow-up with orthopedic office that did her surgery for outpatient evaluation and management. Discharge Plan Triage Chief Complaint: Upper Extremity Injury ED Provider: Rodrigo Garcia Dx/Rx/DC Orders Clinical Impression: Failed hardware, Pain of right clavicle Prescriptions: New ibuprofen 600 mg tablet 600 mg PO 4X/DAY PRN (Reason: Pain Or Fever) Qty: 20 0RF No Action ondansetron [ondansetron] 4 mg tablet,disintegrating 4 mg PO Q8H PRN PRN (Reason: Nausea) Qty: 10 0RF levofloxacin 750 mg tablet 750 mg PO DAILY 5 Days Qty: 5 0RF Primary Care Provider: Jamari Zhang Referrals: Alexei Ireland DO [Med Staff - Active Staff] - 3-5 Days Jamari Zhang DO [Primary Care Provider] - Activity Restrictions/Additional Instructions: Appears to have failed screw and hardware mid clavicle previously performed by Dr. Wilbert Quinn. Call for follow-up with orthopedic office for outpatient management. Disposition Disposition: Home, Self Care Discharge Date/Time: 03/08/22 14:12
--- NOTE | 2022-03-08 12:52 | RAD_ITS ---
STUDY: X-RAY - RIGHT CLAVICLE REASON FOR EXAM: Female, 31 years old. Pain -- previous ORIF, concerns for hardware loosening TECHNIQUE: 2 view(s) of the clavicle. COMPARISON: Comparison is made with prior study of 08/04/2014. FINDINGS: The patient is status post ORIF of the right mid clavicle. There has been no change. Normal acromioclavicular articulation. Normal visualized sternoclavicular articulation. Normal visualized pulmonary apex. RAD/Clavicle IMPRESSION: Status post ORIF of the mid right clavicle. No acute abnormality is seen. Electronically Signed: Felipe Love MD at 13:05 EDT ,
[2022-03-08] MEDS: Ketorolac 30 MG/ML Syringe IM (13:58)
== END 2022-03-08 14:12 | disposition home or self-care (01) ==
PROVIDERS: Emergency Provider Emergency Medicine; PCP Student in an Organized Health Care Education/Training Program; Visit Provider Emergency Medicine
DX: M25.511 Pain in right shoulder (principal)
CPT/HCPCS: 99281; 73000; 96372; 99282

== ENCOUNTER 2023-02-06 18:49 | Emergency (ER) | payer MEDICAID, SELFPAY ==
[2023-02-06 18:50] VITALS: BP 102/78; PULSE 70; RESP 14; TEMP 36; O2SAT 98
--- NOTE | 2023-02-06 19:38 | RAD_ITS ---
INDICATION: PAIN EXAMINATION/TECHNIQUE: X-RAY - LEFT XR Foot Min 3 Views 3 VIEWS COMPARISON: None. FINDINGS: SOFT TISSUES: No soft tissue swelling or gas. No radiopaque foreign body. BONES/JOINTS: No acute fracture or subluxation.. Normal alignment. Preservation of the joint space.. No sclerotic or destructive changes observed. RAD/Foot min 3 Views IMPRESSION: Negative. Electronically Signed: Froylan Angeles MD at 20:22 EDT ,
--- NOTE | 2023-02-06 20:54 | EDS_ITS ---
HPI History of Present Illness Chief Complaint: Lower Extremity Injury Informant: patient Narrative Narrative: Patient complains of left foot pain. Patient slipped on the steps and hurt the left foot. Nothing else was injured. She is able to bear weight. No anticoagulation. She has no numbness tingling or weakness. No history of prior surgeries or fractures in the foot. Weightbearing makes it worse and rest makes it better. PFSH PFSH Medical History Abnormal thyroid blood test Anemia Clavicle fracture Depression History of thyroid disorder Painful orthopaedic hardware Home Medications levofloxacin 750 mg tablet 750 mg PO DAILY 5 days #5 tabs 03/02/22 [Rx Last Take n Unknown] ondansetron 4 mg disintegrating tablet 4 mg PO Q8H PRN PRN Nausea #10 tabs 03/02/22 [Rx Last Taken Unknown] ibuprofen 600 mg tablet 600 mg PO 4X/DAY PRN Pain Or Fever #20 tabs 03/08/22 [Rx Last Taken Unknown] naproxen 500 mg tablet 500 mg PO BID #14 tabs 02/06/23 [Rx Last Taken Unknown] Allergy/AdvReac Type Severity Reaction Status Date / Time amoxicillin [Amoxicillin] Allergy Hives Verified 02/06/23 18:50 cefixime [From Suprax] Allergy Hives Verified 02/06/23 18:50 lactulose Allergy Hives Verified 02/06/23 18:50 oxycodone HCl [From Percocet] AdvReac Abd Verified 02/06/23 18:50 cramps/diarrhea Surgical History Hx of tubal ligation Social History Smoking Status: Never smoker ROS ROS ED Constitutional Constitutional ED: Denies chills or fever(s) Cardiovascular Cardiovascular: Denies chest pain or palpitations Respiratory/Chest Respiratory/Chest: Denies cough or dyspnea Gastrointestinal Gastrointestinal: Denies nausea Musculoskeletal Musculoskeletal: Reports arthralgias; Denies back pain, myalgias or neck pain Integumentary Denies Abrasions or rash Neurologic Neurologic: Denies headache(s), paresthesias or weakness Hematologic/Lymphatic Hematologic/Lymphatic: Denies easy bleeding or easy bruising EXAM Physical Exam Narrative Exam Narrative: Patient is awake alert no acute distress sitting in wheelchair. HEENT shows no sign of trauma. Cardiorespiratory shows easy unlabored breathing and saturations are normal at 98%. Extremities show no swelling at this time. She does have some mild tenderness to the midfoot and lateral midfoot. No tenderness to the ankle calcaneus or proximal leg or knee. No swelling. No deformity. Const Vital Signs: 02/06/23 18:50 Temperature 96.8 F L Temperature Source Temporal Pulse Rate 70 Respiratory Rate 14 Blood Pressure 102/78 Blood Pressure Mean 86 Pulse Ox 98 Oxygen Delivery Method Room Air MDM MDM MDM Narrative Medical decision making narrative: You x-ray of the left foot interpreted by me shows no sign of acute fracture. Final reading is similar. Ice rest nonsteroidals are appropriate. Follow-up for repeat x-ray if still hurting in 1 to 2 weeks. Radiography Diagnostic Testing: Clinical Impression(s) from Imaging Studies Foot X-Ray 02/06/23 19:38 IMPRESSION: Negative. Electronically Signed: Froylan Angeles MD at 20:22 EDT , Discharge Plan Triage Chief Complaint: Lower Extremity Injury ED Provider: Ming Ziegler Dx/Rx/DC Orders Clinical Impression: Fall from steps, Contusion of foot, left Instructions: ED Foot Contusion Prescriptions: New naproxen 500 mg tablet 500 mg PO BID Qty: 14 0RF No Action ondansetron [ondansetron] 4 mg tablet,disintegrating 4 mg PO Q8H PRN PRN (Reason: Nausea) Qty: 10 0RF levofloxacin 750 mg tablet 750 mg PO DAILY 5 Days Qty: 5 0RF ibuprofen 600 mg tablet 600 mg PO 4X/DAY PRN (Reason: Pain Or Fever) Qty: 20 0RF Primary Care Provider: Jamari Zhang Referrals: Jamari Zhang, [Primary Care Provider] - 3-5 Days if not improving Disposition Disposition: Home, Self Care
== END 2023-02-06 21:09 | disposition home or self-care (01) ==
PROVIDERS: Emergency Provider Emergency Medicine; PCP Student in an Organized Health Care Education/Training Program; Visit Provider Emergency Medicine
DX: S90.32XA Contusion of left foot, initial encounter (principal); W10.9XXA Fall (on) (from) unspecified stairs and steps, initial encounter
CPT/HCPCS: 73630; 99282

== ENCOUNTER 2023-07-13 09:00 | Emergency (ER) | payer MEDICAID, SELFPAY ==
[2023-07-13 09:01] VITALS: BP 97/68; PULSE 86; RESP 18; TEMP 36.7; BMI 16.6
--- NOTE | 2023-07-13 10:20 | RAD_ITS ---
STUDY: X-RAY CHEST REASON FOR EXAM: Female, 32 years old. Cough TECHNIQUE: Single AP portable view of the chest. COMPARISON: None. FINDINGS: There is evidence of prior open reduction internal fixation of a mid right clavicular fracture. The lungs are clear and expanded. There is no demonstrated pleural abnormality. Normal size heart. Normal mediastinum and arpit. Normal visualized pulmonary arteries. Normal visualized aortic arch and descending thoracic aorta. Normal visualized thoracic spine. Normal visualized ribs, clavicles, and shoulders. There is no demonstrated abnormality of the visualized soft tissue structures of the upper abdomen. RAD/Chest 1 View (Portable) IMPRESSION: Normal x-ray examination of the chest. Electronically Signed: Felipe Love MD at 10:37 EST ,
[2023-07-13] MEDS: Ondansetron ODT 4 MG Tablet PO (10:30)
[2023-07-13] MEDS: Ibuprofen 600 MG Tablet PO (10:30)
--- NOTE | 2023-07-13 10:32 | EX.ED.DYSGE1 ---
HPI History of Present Illness Chief Complaint: General Illness Narrative Narrative: 32-year-old female presenting with nausea, body aches, chills, subjective fevers at home since Monday. She states her children had this prior to her having it. Patient states that she is otherwise healthy. No concern for . Patient has mild cough without production of sputum. No chest pain. PFSH PFSH Medical History Abnormal thyroid blood test Anemia Clavicle fracture Depression History of thyroid disorder Painful orthopaedic hardware Home Medications ascorbic acid (vitamin C) 500 mg tablet (Vitamin C) 500 mg PO BID supplement 07/13/23 [History Last Taken 07/10/23] benzonatate 100 mg capsule 100 mg PO TID PRN cough #30 caps 07/13/23 [Rx Last Taken Unknown] ferrous sulfate 142 mg (45 mg iron) tablet,extended release (Slow Release Iron) 142 mg PO BID iron deficiency 07/13/23 [History Last Taken 07/10/23] guaifenesin 1 tab PO Q6H PRN cold symptoms 07/13/23 [History Last Taken 07/12/23] ondansetron 4 mg disintegrating tablet 4 mg PO Q8H PRN PRN Nausea #20 tabs 07/13/23 [Rx Last Taken Unknown] sertraline 25 mg tablet 25 mg PO DAILY 07/13/23 [History Last Taken 07/10/23] Allergy/AdvReac Type Severity Reaction Status Date / Time amoxicillin [Amoxicillin] Allergy Hives Verified 07/13/23 09:03 cefixime [From Suprax] Allergy Hives Verified 07/13/23 09:03 lactulose Allergy Hives Verified 07/13/23 09:03 oxycodone HCl [From Percocet] AdvReac Abd Verified 07/13/23 09:03 cramps/diarrhea Surgical History Hx of tubal ligation Social History Smoking Status: Never smoker ROS ROS ED Constitutional Constitutional ED: Reports chills, fever(s) and subjective; Denies sweats Eyes Eyes: Denies blurry vision or change in vision ENT ENT ED: Denies ear pain Cardiovascular Cardiovascular: Denies chest pain, palpitations or racing heartbeat Respiratory/Chest Respiratory/Chest: Reports cough; Denies dyspnea or sputum Gastrointestinal Gastrointestinal: Denies abdominal pain, constipation, diarrhea, nausea or vomiting Genitourinary Genitourinary ED: Denies dysuria, hematuria or urinary frequency Musculoskeletal Musculoskeletal: Reports myalgias; Denies arthralgias or neck pain Integumentary Denies abscess, Abrasions or rash Neurologic Neurologic: Denies headache(s), paresthesias or weakness Psychiatric Psychiatric: Denies anxiety, depression, suicidal ideation or suicidal thoughts Endocrine Endocrinology: Denies polydipsia or polyuria EXAM Physical Exam Const Vital Signs: 07/13/23 09:01 07/13/23 09:07 Temperature 98.0 F Temperature Source Temporal Pulse Rate 86 Respiratory Rate 18 Respiratory Effort Normal Non-Labored Respiratory Pattern Normal Blood Pressure 97/68 Blood Pressure Mean 77 Positive well nourished General Appearance ED: NAD; Negative for pallor HEENT Reports moist mucous membranes Eyes PERRL and EOMs intact bilaterally Neck no lymphadenopathy Resp normal respiratory effort and clear to auscultation bilaterally Auscultation: Negative for rales, rhonchi or wheezes Cardio regular rate and regular rhythm GI normal to inspection, nondistended, normoactive bowel sounds Neuro oriented x3 and CN's II-XII intact bilaterally Sensorium / Orientation: alert Motor Exam: strength 5/5 throughout Psych mental status grossly normal Skin no rashes or lesions noted General Skin Exam: Negative for jaundice or pallor MDM MDM MDM Narrative Medical decision making narrative: Patient presenting with viral symptoms. Vital signs stable she is afebrile. Heart regular rate and rhythm. Lungs clear to auscultation bilaterally. Physical exam otherwise unremarkable. Patient given Zofran and ibuprofen. She was offered Toradol but declined. Viral testing came back positive for influenza B. Will treat her symptoms symptomatically with Tessalon Perles for cough and Zofran for nausea. Return precautions discussed. Impression: 1. Influenza B 2. nausea/vomiting Radiography Diagnostic Testing: Clinical Impression(s) from Imaging Studies Chest X-Ray 07/13/23 10:20 IMPRESSION: Normal x-ray examination of the chest. Electronically Signed: Felipe Love MD at 10:37 EST , Discharge Plan Triage Chief Complaint: General Illness ED Provider: Bob Woods Dx/Rx/DC Orders Instructions: ED Influenza (Adult) Prescriptions: New ondansetron 4 mg tablet,disintegrating 4 mg PO Q8H PRN PRN (Reason: Nausea) Qty: 20 0RF benzonatate 100 mg capsule 100 mg PO TID PRN (Reason: cough) Qty: 30 0RF No Action ascorbic acid (vitamin C) [Vitamin C] 500 mg tablet 500 mg PO BID Slow Release Iron 142 mg (45 mg iron) tablet extended release 142 mg PO BID sertraline 25 mg tablet 25 mg PO DAILY guaifenesin [Mucinex] 1 tab PO Q6H PRN (Reason: cold symptoms) Primary Care Provider: Jamari Zhang Referrals: Jamari Zhang DO [Primary Care Provider] - Disposition Disposition: Home, Self Care Discharge Date/Time: 07/13/23 10:47
--- OUTSIDE RECORDS SUMMARY | 2023-07-13 12:12 | XMS RPT_ITS | CCD ---
Author Name Unknown Address [address] [place] [id number] Organization [facility] Care Team Providers Care Title Curator Name Role Phone Jamari Lima Unavailable Unavailable Ivanauskas, Saulius Unavailable Unavailable Ivanauskstefani, Saulius Unavailable Unavailable Jamari Lima DO Primary Care Provider Jamari Lima DO Primary Care Provider Jamari Lima DO Primary Care Provider JAMARI LIMA Primary Care Unavailable MAGDALENA DOMÍNGUEZ Referring Unavailable JAMARI LIMA Primary Care Unavailable CATRACHITA MAGDALENA Attending Unavailable JAMARI LIMA Primary Care Unavailable JAMARI LIMA Primary Care Unavailable JAMARI LIMA Primary Care Unavailable CATRACHITA MAGDALENA Referring Unavailable JAMARI LIMA Primary Care Unavailable MAGDALENA DOMÍNGUEZ Attending Unavailable JAMARI LIMA L Primary Care Unavailable MAGDALENA ESTRADA Referring Unavailable Allergies Allergy Classification Reported Allergen(s) Allergy Type Date of Onset Reaction(s) Facility (1 source) acetaminophen / oxyCODONE; Translations: [Percocet 10/325] [facility]) amoxicillin; Translations: [Amoxil] Drug Allergy [facility] Repository (1 source) cefixime; Translations: [Suprax] Drug Allergy [facility] Repository (12 sources) lactulose; Translations: [lactulose] Drug Allergy 2 [facility] Repository (11 sources) Acetaminophen / oxyCODONE; Translations: [OXYCODONE-ACETAM INOPHEN] Drug Allergy 2 Other: See Comments [facility] Work Phone: (11 sources) Amoxicillin; Translations: [AMOXICILLIN] Drug Allergy 2 [facility] Work Phone: (11 sources) Cefixime; Translations: [CEFIXIME] Drug Allergy 2 [facility] Work Phone: Medications Current Medications Medication Drug Class(es) Dates Sig (Normalized) Sig (Original) ascorbic acid 500 mg oral tablet (3 sources) Vitamin C Start: 04-12-2023 End: 07-11-2023 take 1 tablet by mouth twice daily ascorbic acid, vitamin C, (VITAMIN C) 500 mg tablet Indications: Iron deficiency anemia, unspecified iron deficiency anemia type Take 1 tablet by mouth two times a day. 60 tablet 2 04/12/2023 07/11/2023 Active Completed/Discontinued Medications Medication Drug Class(es) Dates Sig (Normalized) Sig (Original) brompheniramine maleate 0.4 mg/ml / dextromethorphan hydrobromide 2 mg/ml / pseudoephedrine hydrochloride 6 mg/ml oral solution (1 source) alpha-Adrenergic Agonist, Uncompetitive K-mblrze-I-aspartat e Receptor Antagonist, Sigma-1 Agonist Start: 03-03-2023 take 10 mL by mouth every six hours as needed Brompheniramine -Pseudoeph-DM (BROMFED DM) 2-30-10 mg/5 mL syrup Take 10 mL by mouth four times daily as needed. 200 mL 0 03/03/2023 Active Problems Active Problems Problem Classification Problem Date Documented Date Episodic/Chronic Abdominal pain (2 sources) Generalized abdominal pain; Translations: [Generalized abdominal pain] Episodic Anxiety disorders (1 source) Mixed anxiety and depressive disorder; Translations: [Other specified anxiety disorders] 05-01-2023 Chronic Deficiency and other anemia (2 sources) Iron deficiency anemia; Translations: [Iron deficiency anemia, unspecified] 04-12-2023 Episodic Deficiency and other anemia (1 source) Iron deficiency anemia, unspecified; Translations: [Iron deficiency anemia, unspecified iron deficiency anemia type] Onset: 05-01-2023 Episodic Malaise and fatigue (3 sources) Fatigue; Translations: [Other fatigue] Onset: 04-11-2023 05-01-2023 Episodic Menstrual disorders (2 sources) Menstrual period late; Translations: [Irregular menstruation, unspecified] Onset: 05-01-2023 05-01-2023 Chronic Other complications of (5 sources) Anemia during - baby not yet delivered; Translations: [Anemia complicating , second trimester] Onset: 11-06-2019 11-06-2019 Chronic Other complications of (4 sources) Anemia of ; Translations: [Anemia complicating , second trimester] Onset: 11-06-2019 11-06-2019 Chronic Other connective tissue disease (1 source) Cramp and spasm; Translations: [Leg cramps] Onset: 04-11-2023 Episodic Other female genital disorders (1 source) Vaginal discharge; Translations: [Other specified noninflammatory disorders of vagina] 05-01-2023 Episodic Other lower respiratory disease (2 sources) Cough; Translations: [Cough] Episodic Other nutritional; endocrine; and metabolic disorders (1 source) Underweight; Translations: [Underweight] Episodic Other upper respiratory infections (2 sources) Chronic sinusitis; Translations: [Chronic sinusitis, unspecified] 03-03-2023 Chronic Other upper respiratory infections (1 source) Acute pansinusitis; Translations: [Acute pansinusitis, unspecified] Episodic Residual codes; unclassified (2 sources) Other hypersomnia; Translations: [Excessive daytime sleepiness] Onset: 04-11-2023 Chronic Residual codes; unclassified (2 sources) Sleep disorder, unspecified; Translations: [Sleep disorder] Onset: 04-11-2023 Episodic Residual codes; unclassified (1 source) Family history of epilepsy and other diseases of the nervous system; Translations: [FH: restless leg syndrome] Onset: 05-28-2023 Episodic Past or Other Problems Problem Classification Problem Date Documented Da te Episodic/Chronic Fracture of upper limb (9 sources) Closed fracture of shaft of clavicle; Translations: [Displaced fracture of shaft of right clavicle, initial encounter for closed fracture] Onset: 03-14-2022 03-14-2022 Episodic Other connective tissue disease (9 sources) Muscle pain; Translations: [Myalgia, unspecified site] Onset: 12-25-2012 12-25-2012 Episodic Other connective tissue disease (8 sources) Rotator cuff impingement syndrome; Translations: [Impingement syndrome of right shoulder] Onset: 03-14-2022 Episodic Other hematologic conditions (9 sources) History of anemia; Translations: [Personal history of diseases of the blood and blood-forming organs and certain disorders involving the immune mechanism] Onset: 08-06-2018 10-04-2019 Episodic Other hematologic conditions (1 source) Personal history of diseases of the blood and blood-forming organs and certain disorders involving the immune mechanism; Translations: [History of anemia] Onset: 10-04-2019 Episodic Other nutritional; endocrine; and metabolic disorders (9 sources) H/O: thyroid disorder; Translations: [Personal history of other endocrine, nutritional and metabolic disease] Onset: 05-18-2017 07-01-2019 Episodic Other nutritional; endocrine; and metabolic disorders (1 source) Personal history of other endocrine, nutritional and metabolic disease; Translations: [History of thyroid disorder] Onset: 07-01-2019 Episodic Results Test Name Value Interpretation Reference Range Facil ity Vital Signs Date Time Vital Sign Value Performing Clinician Faci lity 05-06-2023 10:58-0500 Body temperature 98.29 [degF] Sylvester Garay APRN.ARRESTING GEAR OPERATOR Work Phone: [facility] 05-06-2023 10:58-0500 Body weight 38.92 kg Sylvester Garay APRN.ARRESTING GEAR OPERATOR Work Phone: [facility] 05-06-2023 10:58-0500 Diastolic blood pressure 75 mm[Hg] Sylvester Garay APRN.ARRESTING GEAR OPERATOR Work Phone: [facility] 05-06-2023 10:58-0500 Heart rate 79 /min Sylvester Garay APRN.ARRESTING GEAR OPERATOR Work Phone: [facility] 05-06-2023 10:58-0500 Respiratory rate 20 /min Sylvester Garay APRN.ARRESTING GEAR OPERATOR Work Phone: [facility] 05-06-2023 10:58-0500 SaO2% (BldA) [Mass fraction] 100 % Sylvester Garay APRN.ARRESTING GEAR OPERATOR Work Phone: [facility] 05-06-2023 10:58-0500 Systolic blood pressure 109 mm[Hg] Sylvester Garay APRN.ARRESTING GEAR OPERATOR Work Phone: [facility] 05-01-2023 11:41-0500 Body weight 38.83 kg Magdalena Estrada BOILERMAKING SUPERVISOR.ARRESTING GEAR OPERATOR Work Phone: [facility] 05-01-2023 11:41-0500 Diastolic blood pressure 60 mm[Hg] Magdalena Estrada BOILERMAKING SUPERVISOR.ARRESTING GEAR OPERATOR Work Phone: [facility] 05-01-2023 11:41-0500 Heart rate 104 /min Magdalena Estrada BOILERMAKING SUPERVISOR.ARRESTING GEAR OPERATOR Work Phone: [facility] 05-01-2023 11:41-0500 Respiratory rate 16 /min Magdalena Estrada BOILERMAKING SUPERVISOR.ARRESTING GEAR OPERATOR Work Phone: [facility] 05-01-2023 11:41-0500 SaO2% (BldA) [Mass fraction] 96 % Magdalena Estrada BOILERMAKING SUPERVISOR.ARRESTING GEAR OPERATOR Work Phone: [facility] 05-01-2023 11:41-0500 Systolic blood pressure 100 mm[Hg] Magdalena Estrada BOILERMAKING SUPERVISOR.ARRESTING GEAR OPERATOR Work Phone: [facility] 03-03-2023 18:28-0400 Body temperature 98.1 [degF] Cris Athy PA-C Work Phone: [facility] 03-03-2023 18:28-0400 Body weight 39.28 kg Cris Athy PA-C Work Phone: [facility] 03-03-2023 18:28-0400 Diastolic blood pressure 76 mm[Hg] Cris Athy PA-C Work Phone: [facility] 03-03-2023 18:28-0400 Heart rate 68 /min Cris Athy PA-C Work Phone: [facility] 03-03-2023 18:28-0400 Respiratory rate 18 /min Cris Athy PA-C Work Phone: [facility] 03-03-2023 18:28-0400 SaO2% (BldA) [Mass fraction] 100 % Cris Athy PA-C Work Phone: [facility] 03-03-2023 18:28-0400 Systolic blood pressure 110 mm[Hg] Cris Rolle PA-C Work Phone: [facility] 03-28-2022 13:42-0400 Body temperature 97.7 [degF] Michelle Alize BOILERMAKING SUPERVISOR.ARRESTING GEAR OPERATOR Work Phone: [facility] 03-28-2022 13:42-0400 Body weight 38.83 kg Michelle Alize BOILERMAKING SUPERVISOR.ARRESTING GEAR OPERATOR Work Phone: [facility] 03-28-2022 13:42-0400 Diastolic blood pressure 64 mm[Hg] Michelle Alize BOILERMAKING SUPERVISOR.ARRESTING GEAR OPERATOR Work Phone: [facility] 03-28-2022 13:42-0400 Heart rate 102 /min Michelle Alize BOILERMAKING SUPERVISOR.ARRESTING GEAR OPERATOR Work Phone: [facility] 03-28-2022 13:42-0400 Respiratory rate 16 /min Michelle Alize BOILERMAKING SUPERVISOR.ARRESTING GEAR OPERATOR Work Phone: [facility] 03-28-2022 13:42-0400 SaO2% (BldA) [Mass fraction] 98 % Michelle Alize BOILERMAKING SUPERVISOR.ARRESTING GEAR OPERATOR Work Phone: [facility] 03-28-2022 13:42-0400 Systolic blood pressure 102 mm[Hg] Michelle Alize BOILERMAKING SUPERVISOR.ARRESTING GEAR OPERATOR Work Phone: [facility] 09-06-2021 13:24-0400 Body height 157 cm Magdalena Zurawick BOILERMAKING SUPERVISOR.ARRESTING GEAR OPERATOR Work Phone: [facility] 09-06-2021 13:24-0400 Body temperature 99.19 [degF] Magdalena Zurawick BOILERMAKING SUPERVISOR.ARRESTING GEAR OPERATOR Work Phone: [facility] 09-06-2021 13:24-0400 Body weight 37.7 kg Magdalena Zurawick BOILERMAKING SUPERVISOR.ARRESTING GEAR OPERATOR Work Phone: [facility] 09-06-2021 13:24-0400 Diastolic blood pressure 62 mm[Hg] Magdalena Zurawick BOILERMAKING SUPERVISOR.ARRESTING GEAR OPERATOR Work Phone: [facility] 09-06-2021 13:24-0400 Heart rate 73 /min Magdalena Domínguez APRN.ARRESTING GEAR OPERATOR Work Phone: [facility] 09-06-2021 13:24-0400 SaO2% (BldA) [Mass fraction] 100 % Magdalena Domínguez APRN.ARRESTING GEAR OPERATOR Work Phone: [facility] 09-06-2021 13:24040 Systolic blood pressure 90 mm[Hg] Magdalena Domínguez BOILERMAKING SUPERVISOR.ARRESTING GEAR OPERATOR Work Phone: [facility] Encounters Encounter Date Encounter Type Care Provider Facility Start: 05-28-2023 End: 05-29-2023 ambulatory [facility] Facility:[facility] Start: 05-06-2023 End: 05-06-2023 ambulatory [facility] Facility:[facility] Start: 05-06-2023 End: 05-06-2023 Patient encounter procedure Sylvester Garay BOILERMAKING SUPERVISOR.ARRESTING GEAR OPERATOR Work Phone: [facility] Procedures Date Procedure Procedure Detail Performing Clinician Start: 05-01-2023 Urnls dip stick/tabl et rgnt auto w/o microscopy Magdalena Estrada BOILERMAKING SUPERVISOR.ARRESTING GEAR OPERATOR Work Phone: Start: 05-01-2023 STREP A MOLECULAR (POC) Magdalena Estrada BOILERMAKING SUPERVISOR.ARRESTING GEAR OPERATOR Work Phone: Start: 03-03-2023 STREP A MOLECULAR (POC) Cris Rolle PA-C Work Phone: Start: 03-14-2022 Radex shoulder compl ete minimum 2 views Tong Mederos MD Work Phone: Start: 09-06-2021 Urnls dip stick/tabl et rgnt auto w/o microscopy Magdalena Domínguez APRN.ARRESTING GEAR OPERATOR Work Phone: Start: 01-27-2021 Adult depression screening assessment Magdalena Domínguez APRN.ARRESTING GEAR OPERATOR Work Phone: Plan of Treatment Date Care Activity Detail Author Start: 11-27-2029 Urine microalbumin profile [facility] Start: 04-10-2024 Covid-19 Vaccine (#1) Covid-19 Vacci ne (#1) [facility] Immunizations Immunization Date Immunization Notes Care Provider Ivelisse galvan 11-28-2019 tetanus toxoid, redu binu diphtheria toxoid, and acellular pertussis vaccine, adsorbed Magdalena Zurawick BOILERMAKING SUPERVISOR.ARRESTING GEAR OPERATOR Work Phone: [facility] 11-24-2017 tetanus toxoid, redu binu diphtheria toxoid, and acellular pertussis vaccine, adsorbed Magdalena Zurawick BOILERMAKING SUPERVISOR.ARRESTING GEAR OPERATOR Work Phone: [facility] 03-22-2017 influenza virus vaccine, unspecified formulation Cris Rolle PA-C Work Phone: [facility] 12-29-2015 tetanus toxoid, redu binu diphtheria toxoid, and acellular pertussis vaccine, adsorbed Magdalena Zurawick BOILERMAKING SUPERVISOR.ARRESTING GEAR OPERATOR Work Phone: [facility] Work Phone: 12-24-2013 tetanus toxoid, redu binu diphtheria toxoid, and acellular pertussis vaccine, adsorbed Magdalena Zurawick BOILERMAKING SUPERVISOR.ARRESTING GEAR OPERATOR Work Phone: [facility] Payers Date Payer Category Payer Medicaid [id number] 2017 Unknown 2016 Medicaid [facility] MEDICAID [id number] 2016-Present [phone] [address] [place] [address] Medicaid [id number] 2016 Medicaid [id number] Social History Date Type Detail Facility Start: 09-29-2011 End: 03-28-2022 Tobacco smoking status NHIS Never smoked tobacco [facility] Work Phone: Start: 09-29-2011 End: 03-28-2022 Tobacco use and exposure Smokeless tobacco non-user [facility] Work Phone: Start: 09-06-2021 End: 05-06-2023 Alcohol intake Ex-drinker (finding) [facility] Start: 03-23-2020 History SDOH Alcohol Binge 2 [facility] Start: 03-23-2020 History SDOH Financial 4 [facility] Start: 03-23-2020 History SDOH Food Worry 1 [facility] Start: 07-01-2019 Education 13 [facility] Start: 1990 Sex Assigned At Not on file [facility] Start: 08-27-2021 End: 03-28-2022 Exposure to SARS-CoV-2 (event) Not sure [facility] Start: 03-23-2020 End: 04-10-2023 History of Social function [facility] Start: 03-23-2020 End: 04-10-2023 Alcohol Use Disorder Identification Test - Consumption [AUDIT-C] [facility] Frequency of Alcohol Consumption Not on file [facility] How often do you hav e 6 or more drinks on 1 occasion? Less than monthly [facility] How hard is it for y ou to pay for the very basics like food, housing, medical care, and heating Not very hard [facility] (I/We) worried whesuzie er (my/our) food would run out before (I/we) got money to buy more. Never true [facility] Clinical Notes 01-02-2020 to 05-29-2023 Sylvester Garay APRN.[facility] - 05/06/2023 11:26 AM Magdalena Cochran APRN.ARRESTING GEAR OPERATOR - 05/01/2023 11:20 AM ESTTelephone Encounter - Sherri Castanon LPN - 04/12/2023 3:51 PM EDTPatient Instructions Note Date & Type Note Facility 05-29-2023 Note HNO ID: [id number] Author: Divine Salazar Service: ? Author Type: ? Type: Progress Notes Filed: 05/29/2023 4:14 AM Note Text: Sleep Study Check-In Documentation Date: May 29, 2023 Name: Carola Harding Patient was accompanied by Self. Location: [place] Latex allergy: No Tape allergy: No Current medications were reviewed with the patient:Yes Sleep aid taken by patient for the sleep study: [place] of sleep aid: Not Applicable Procedure was explained to the patient and all questions were answered. PAP treatment discussed and shown to patient: Yes Knowledge Program (KP): KP was not completed in epic by patient and accepted Study type: Polysomnogram Adverse Event: No (If yes create a new abstract) Comments: Patient was advised to follow up with their ordering provider regarding test results Divine Salazar [facility] 05-26-2023 Note HNO ID: [id number] Author: Oh Siddiqui MD Service: ? Author Type: Physician Type: Progress Notes Filed: 05/29/2023 4:14 AM Note Text: May 26, 2023 Standing PSG Orders signed in the last 90 days None Future PSG Orders signed in the last 90 days Ordered Auth. provider POLYSOMNOGRAM (PSG) [[id number]] 04/10/23 Magdalena Estrada APRN.ARRESTING GEAR OPERATOR Assoc. diagnoses: Fatigue, unspecified type [R53.83], Sleep disorder [G47.9] Q: Indications - Select All That Apply: A: Narcolepsy/Hypersomnia Q: Comorbidities: A: NONE Q: Current use of supplemental oxygen during sleep period?: A: No Q: Add supplemental oxygen if needed per sleep lab policy?: A: Yes Q: Is the patient non-ambulatory or will they be accompanied by a caregiver?: A: No Q: Is this a repeat Sleep Study?: A: No POLYSOMNOGRAM (PSG) [[id number]] 04/10/23 Magdalena Estrada APRN.ARRESTING GEAR OPERATOR Assoc. diagnoses: Fatigue, unspecified type [R53.83], Sleep disorder [G47.9], Excessive daytime sleepiness [G47.19], FH: restless leg syndrome [Z82.0] Q: Indications - Select All That Apply: A: Additional Disorders Q: Comorbidities: A: NONE Q: Current use of supplemental oxygen during sleep period?: A: No Q: Add supplemental oxygen if needed per sleep lab policy?: A: Yes Q: Is the patient non-ambulatory or will they be accompanied by a caregiver?: A: No Q: Is this a repeat Sleep Study?: A: No All Prior Sleep Studies (past 365 days) Some values may be hidden. Unless noted otherwise, only the newest values recorded on each date are displayed. Sleep Studies POLYSOMNOGRAM (PSG) Future Expected: Expires: 04/09/24 POLYSOMNOGRAM (PSG) Future Expected: Expires: 04/09/24 BMI Readings from Last 2 Encounters: 05/06/23 : 15.59 kg/m? 05/01/23 : 15.55 kg/m? PAST MEDICAL HISTORY Diagnosis Date Anemia complicating 12/25/2013 Chlamydia 11/2010 Dysthymic disorder Depression (non-psychotic) Hypothyroidism Iron deficiency depression 12/03/2012 Strain of unspecified muscle and tendon at ankle and foot level, right foot, initial encounter 10/13/2017 The medical record was reviewed to determine if the proposed sleep study conforms to the AASM Practice Parameters for the Indications for Polysomnography and Related Procedures, or if the sleep study is indicated for other reasons. Indications for study: ELENA suspected without comorbid medical or sleep disorders Sleep study to be performed: Split Study-Polysomnogram with PAP titration Special instructions: Split night study if AHI > 15. Start with 5 cmH2O then titrate per protocol Target REM/supine sleep Add EtCO2 or Transcutaneous CO2 if available Ashley Morales --- Sleep Medicine Staff Note: I have read the above protocol, edited as needed, and agree to the plan. Oh Siddiqui MD 3:01 PM, 05/26/2023 [facility] 05-22-2023 Note HNO ID: [id number] Author: Gonzalo Daigle Service: ? Author Type: ? Type: Progress Notes Filed: 05/29/2023 4:14 AM Note Text: May 22, 2023 An order has been received for Polysomnogram (PSG) from Magdalena Hernández APRN.devonte RUDD. [facility] Staff. Visit prep complete. Comments :No The sleep study is scheduled for 05/28. Insurance: Payor: [facility] MEDICAID / Plan: [facility] MEDICAID / Product Type: Medicaid / Payer/Plan Subscr Sex Relation Sub. Ins. ID Effective Group Num 1. [facility] CAROLA HARDING 1990 Female Self [id number] 07/13/22 [facility] [address] Gonzalo Lomaseczorek [facility] 05-06-2023 Note HNO ID: [id number] Author: Sylvester Garay APRN.BLAIRE Service: ? Author Type: Nurse Practitioner Type: Progress Notes Filed: 05/06/2023 11:27 AM Note Text: Subjective HPI HPI Carola Harding is a 32 year old female who presents today for CC of cough, sinus pressure. This started 2 weeks ago. Has tried otc medication for relief. Symptoms are worsened by nothing. Risk factors sick exposures at home. Denies possibility of being . nonsmoker. .Patient presents with: Cough: Runny nose, nasal congestion,pressure in head, headache x 2 weeks PAST MEDICAL HISTORY Diagnosis Date Anemia complicating 12/25/2013 Chlamydia 11/2010 Dysthymic disorder Depression (non-psychotic) Hypothyroidism Iron deficiency depression 12/03/2012 Strain of unspecified muscle and tendon at ankle and foot level, right foot, initial encounter 10/13/2017 PAST SURGICAL HISTORY Procedure Laterality Date PAST SURGICAL HISTORY OF 05/20/14 Right open reduction internal fixation clavicle TONSILLECTOMY HX TYMPANOSTOMY LOCAL/TOPICAL ANESTHESIA ALLERGIES Amoxicillin, Lactulose, Percocet [Oxycodone-Acetaminophen], and Suprax [Cefixime] MEDICATIONS nitrofurantoin monohydrate and macrocrystal (MACROBID) 100 mg capsule Take 1 capsule by mouth two times a day for 5 days. sertraline (ZOLOFT) 25 mg tablet Take 1 tablet by mouth once daily. ferrous sulfate (SLOW FE) 137 mg (45 mg iron) TbER Take 45 mg by mouth two times a day. ascorbic acid, vitamin C, (VITAMIN C) 500 mg tablet Take 1 tablet by mouth two times a day. ibuprofen (MOTRIN) 600 mg tablet TAKE 1 TABLET BY MOUTH THREE TIMES DAILY NEEDED FOR PAIN OR FEVER doxycycline (VIBRA-TABS) 100 mg tablet Take 1 tablet by mouth two times a day for 5 days. fluticasone (FLONASE) 50 mcg/actuation nasal spray Use 2 Sprays in each nostril once daily. Rinse mouth after use. Food Supplement, Lactose-Free (ENSURE ACTIVE MUSCLE HEALTH) liqd Take 237 mL by mouth four times daily for 7 days. FAMILY HISTORY Problem Relation Age of Onset Diabetes Mother Heart Mother Hypertension Mother Lipids Mother Stroke Mother Arthritis Father Hypertension Father No Known Problems Sister No Known Problems Brother Cancer Paternal Grandmother No Known Problems Paternal Grandfather No Known Problems Daughter other (celiac disease) Daughter No Known Problems Son No Known Problems Son Social History Tobacco Use Smoking status: Never Smokeless tobacco: Never Vaping Use Vaping Use: Never used Substance Use Topics Alcohol use: Not Currently Drug use: No Review of Systems Constitutional: Negative for fever. HENT: Positive for congestion and sinus pain. Negative for ear discharge, ear pain, nosebleeds and sore throat. Respiratory: Positive for cough. Negative for shortness of breath and wheezing. Gastrointestinal: Negative for diarrhea and vomiting. Musculoskeletal: Negative for neck pain. Objective Blood pressure 109/75, pulse 79, temperature 36.8 ?C (98.3 ?F), resp. rate 20, weight 38.9 kg (85 lb 12.8 oz), last menstrual period 05/06/2023, SpO2 100 %. Physical Exam Constitutional: General: She is not in acute distress. Appearance: She is not toxic-appearing or diaphoretic. HENT: Head: Normocephalic and atraumatic. Nose: Right Sinus: Frontal sinus tenderness present. Left Sinus: Frontal sinus tenderness present. Cardiovascular: Rate and Rhythm: Normal rate and regular rhythm. Heart sounds: Normal heart sounds, S1 normal and S2 normal. Pulmonary: Effort: Pulmonary effort is normal. Breath sounds: Normal breath sounds. Lymphadenopathy: Cervical: No cervical adenopathy. Right cervical: No superficial cervical adenopathy. Left cervical: No superficial cervical adenopathy. Neurological: Mental Status: She is alert and oriented to person, place, and time. Gait: Gait is intact. ASSESSMENT/PLAN: 1. Bacterial sinusitis - ICD9: 473.9, 041.9, ICD10: J32.9, B96.89 - Will begin treatment with as per antibiotic as written, see orders - Supportive care with plenty of fluids, rest, and analgesia prn. - Follow up in 3-5 days if symptoms persist or worsen. - DOXYCYCLINE HYCLATE 100 MG TABLET - FLUTICASONE PROPIONATE 50 MCG/ACTUATION NASAL SPRAY,SUSPENSION Sylvester Garay APRN.ARRESTING GEAR OPERATOR [facility] 05-06-2023 History of Presen t illness Narrative Subjective HPI HPI Carola Harding is a 32 year old female who presents today for CC of cough, sinus pressure. This started 2 weeks ago. Has tried otc medication for relief. Symptoms are worsened by nothing. Risk factors sick exposures at home. Denies possibility of being . nonsmoker. .Patient presents with: Cough: Runny nose, nasal congestion,pressure in head, headache x 2 weeks PAST MEDICAL HISTORY Diagnosis Date Anemia complicating 12/25/2013 Chlamydia 11/2010 Dysthymic disorder Depression (non-psychotic) Hypothyroidism Iron deficiency depression 12/03/2012 Strain of unspecified muscle and tendon at ankle and foot level, right foot, initial encounter 10/13/2017 PAST SURGICAL HISTORY Procedure Laterality Date PAST SURGICAL HISTORY OF 05/20/14 Right open reduction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 Daughter No Known Problems Son No Known Problems Son Social History Tobacco Use Smoking status: Never Smokeless tobacco: Never Vaping Use Vaping Use: Never used Substance Use Topics Alcohol use: Not Currently Drug use: No Objective BP 110/76 Pulse 68 Temp 36.7 ?C (98.1 ?F) Resp 18 Wt 39.3 kg (86 lb 9.6 oz) LMP 03/02/2023 (Exact Date) SpO2 100% BMI 15.94 kg/m? Physical Exam Vitals reviewed. Constitutional: Appearance: Normal appearance. HENT: Head: Normocephalic and atraumatic. Right Ear: Tympanic membrane, ear canal and external ear normal. Left Ear: Tympanic membrane, ear canal and external ear normal. Nose: Congestion present. Mouth/Throat: Mouth: Mucous membranes are moist. Pharynx: Oropharynx is clear. Cardiovascular: Rate and Rhythm: Normal rate and regular rhythm. Heart sounds: Normal heart sounds. Pulmonary: Effort: Pulmonary effort is normal. Breath sounds: Normal breath sounds. Skin: General: Skin is warm and dry. Neurological: General: No focal deficit present. Mental Status: She is alert. Assessment and Plan ASSESSMENT/PLAN: 1. Sinobronchitis - ICD9: 473.9, 490, ICD10: J32.9, J40 Bromfed for symptoms. If not improving in 3-4 days may fill doxycycline, but discussed this is still likely viral at this point. - STREP A MOLECULAR (POC) Cris Rolle PA-C [facility] 03-03-2023 History of Presen t illness Narrative This note was created using [employer]ient[employer]. Celine Harding is a 32 year old female. HPI Patient presents with a chief complaint of cough and congestion over the past week. She feels like she is not improving. She is tried some Mucinex [id number]. Her son was sick with similar symptoms the week before. No fever. Cough is keeping her up at night. Is productive. No chest pain or shortness of breath. No vomiting or diarrhea. No ear pain. She is also had a persistent sore throat. She tried some allergy medication [id number] which did not seem to help either. Review of Systems Constitutional: Negative. HENT: Positive for congestion, rhinorrhea, sinus pressure and sore throat. Respiratory: Positive for cough. Negative for chest tightness and shortness of breath. Cardiovascular: Negative. Gastrointestinal: Negative. Genitourinary: Negative. Musculoskeletal: Negative. All other systems reviewed and are negative. PAST MEDICAL HISTORY Diagnosis Date Anemia complicating 12/25/2013 Chlamydia 11/2010 Dysthymic disorder Depression (non-psychotic) Hypothyroidism Iron deficiency depression 12/03/2012 Strain of unspecified muscle and tendon at ankle and foot level, right foot, initial encounter 10/13/2017 Current Outpatient Medications Medication Sig Dispense Refill ibuprofen (MOTRIN) 600 mg tablet TAKE 1 TABLET BY MOUTH THREE TIMES DAILY NEEDED FOR PAIN OR FEVER fluticasone (FLONASE) 50 mcg/actuation nasal spray Use 2 Sprays in each nostril once daily. Rinse mouth after use. 1 Bottle 0 Food Supplement, Lactose-Free (ENSURE ACTIVE MUSCLE HEALTH) liqd Take 237 mL by mouth four times daily for 7 days. 6636 mL 12 Dlqdcpapiqpzrmu-Rgaqlxeoh-OJ (BROMFED DM) 2-30-10 mg/5 mL syrup Take 10 mL by mouth four times daily as needed. 200 mL 0 doxycycline (VIBRA-TABS) 100 mg tablet Take 1 tablet by mouth twice daily for 7 days. 14 tablet 0 No current facility-administered medications for this visit. PAST SURGICAL HISTORY Procedure Laterality Date PAST SURGICAL HISTORY OF 05/20/14 Right open reduction internal fixation clavicle TONSILLECTOMY HX TYMPANOSTOMY LOCAL/TOPICAL ANESTHESIA FAMILY HISTORY Problem Relation Age of Onset Diabetes Mother Heart Mother Hypertension Mother Lipids Mother Stroke Mother Arthritis Father Hypertension Father No Known Problems Sister No Known Problems Brother Cancer Paternal Grandmother No Known Problems Paternal Grandfather No Known Problems Daughter other (celiac disease) Daughter No Known Problems Son No Known Problems Son Social History Tobacco Use Smoking status: Never Smokeless tobacco: Never Vaping Use Vaping Use: Never used Substance Use Topics Alcohol use: Not Currently Drug use: No Objective BP 110/76 Pulse 68 Temp 36.7 C (98.1 F) Resp 18 Wt 39.3 kg (86 lb 9.6 oz) LMP 03/02/2023 (Exact Date) SpO2 100% BMI 15.94 kg/m Physical Exam Vitals reviewed. Constitutional: Appearance: Normal appearance. HENT: Head: Normocephalic and atraumatic. Right Ear: Tympanic membrane, ear canal and external ear normal. Left Ear: Tympanic membrane, ear canal and external ear normal. Nose: Congestion present. Mouth/Throat: Mouth: Mucous membranes are moist. Pharynx: Oropharynx is clear. Cardiovascular: Rate and Rhythm: Normal rate and regular rhythm. Heart sounds: Normal heart sounds. Pulmonary: Effort: Pulmonary effort is normal. Breath sounds: Normal breath sounds. Skin: General: Skin is warm and dry. Neurological: General: No focal deficit present. Mental Status: She is alert. Assessment and Plan ASSESSMENT/PLAN: 1. Sinobronchitis - ICD9: 473.9, 490, ICD10: J32.9, J40 Bromfed for symptoms. If not improving in 3-4 days may fill doxycycline, but discussed this is still likely viral at this point. - STREP A MOLECULAR (POC) Cris Rolle PA-C documented in this encounter [facility] 03-28-2022 Instructions Michelle Herrmann APRN.BLAIRE - 03/28/2022 1:58 PM EDT -Increase fluid intake. --Rest as much as possible. - Nasal saline spray, roro pot, flonase Take the entire course of antibiotics as prescribed. DO NOT stop taking it early, even if you are feeling better. -Monitor for signs of worsening infection: increased temperature, pain in face, ear pain or headaches or increase in nasal congestion/mucous that is not improving. -Educated patient on side effects of medication. * Seek medical care immediately, call 911, go to ER if you have chest pain, difficulty breathing, shortness of breath, inability to swallow. documented in this encounter [facility] 03-28-2022 History of Presen t illness Narrative Subjective The history is provided by the patient. No multi disciplined language analyst was used. LIVAN Harding is a 31 year old female who presents today for CC of cough, congestions, sore throat and runny nose. This started over a week ago. She has used OTC cough and cold medications and allergy medications. She denies any fever chills body aches nausea, vomiting or diarrhea. Other family members ill. BP 102/64 Pulse 102 Temp 36.5 C (97.7 F) Resp 16 Wt 38.8 kg (85 lb 9.6 oz) LMP 05/07/2019 (Within Days) SpO2 98% BMI 15.75 kg/m Social History Tobacco Use Smoking status: Never Smokeless tobacco: Never Vaping Use Vaping Use: Never used Substance Use Topics Alcohol use: Not Currently Drug use: No PAST MEDICAL HISTORY Diagnosis Date Anemia complicating 12/25/2013 Chlamydia 11/2010 Dysthymic disorder Depression (non-psychotic) Hypothyroidism Iron deficiency depression 12/03/2012 Strain of unspecified muscle and tendon at ankle and foot level, right foot, initial encounter 10/13/2017 I have confirmed and edited as necessary, the [facility] Review of Systems Constitutional: Negative for chills, fever and malaise/fatigue. HENT: Positive for congestion and sore throat. Negative for ear pain and sinus pain. Respiratory: Positive for cough. Negative for sputum production, shortness of breath and wheezing. Cardiovascular: Negative for chest pain. Gastrointestinal: Negative for abdominal pain, diarrhea, nausea and vomiting. Musculoskeletal: Negative for myalgias. Neurological: Negative for headaches. Objective Physical Exam Vitals and nursing note reviewed. HENT: Head: Normocephalic and atraumatic. Right Ear: Tympanic membrane, ear canal and external ear normal. Left Ear: Tympanic membrane, ear canal and external ear normal. Nose: Mucosal edema, congestion and rhinorrhea present. Right Sinus: No maxillary sinus tenderness or frontal sinus tenderness. Left Sinus: No maxillary sinus tenderness or frontal sinus tenderness. Mouth/Throat: Pharynx: Uvula midline. No oropharyngeal exudate or posterior oropharyngeal erythema. Comments: Post nasal drainge Cardiovascular: Rate and Rhythm: Normal rate and regular rhythm. Heart sounds: Normal heart sounds. Pulmonary: Effort: Pulmonary effort is normal. Breath sounds: Normal breath sounds. Lymphadenopathy: Head: Right side of head: No submental, submandibular or tonsillar adenopathy. Left side of head: No submental, submandibular or tonsillar adenopathy. Cervical: No cervical adenopathy. Skin: General: Skin is warm and dry. Neurological: Mental Status: She is alert. Psychiatric: Mood and Affect: Affect normal. ASSESSMENT/PLAN: 1. Acute non-recurrent pansinusitis - ICD9: 461.8, ICD10: J01.40 - Will begin treatment with Doxycycline - Supportive care with plenty of fluids, rest, and analgesia prn. - Follow up in one week if symptoms persist or worsen. Diagnosis and treatment plan were discussed and questions were answered to the patient's satisfaction. Pt acknowledged understanding of concepts and follow up plan. Specific signs and symptoms that would indicate the need for higher level of care were discussed in detail warranting prompt ER evaluation. Michelle Herrmann APRN.BLAIRE documented in this encounter [facility] 03-14-2022 History of Presen t illness Narrative Tong OcampoM.Sc. [employer] Clerk of Orthopaedic Surgery at [place] [address] Office: [phone] Consult requested for an opinion regarding the evaluation and treatment of the above patient. My final impression and recommendations will be communicated back to the requesting physician by way of the shared medical record or letter via [place] mail. Patient info: Carola Harding ([id number]) Service date: 03/14/2022 Referred by: SELF PCP: DO Vicente Chief Complaint: Right shoulder pain. HPI:Carola Harding is a 31 year old Right hand dominant female who presents with 2 week history of Right shoulder pain. She had a history of a prior injury in after fall on ice and needing surgical fixation of the right clavicle by Dr. Quinn. She has been doing well until about 2 weeks ago when she woke up with pain. She overall feel discomfort with movement in the right shoulder region which is not necessarily in the clavicle plate area. She denies any shifting sensation of the bone. 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 Negative Cardiovascular: Any chest pain? Negative Respiratory: Any shortness or breath? Negative Gastrointestinal: Any abdominal discomfort? Negative Integumentary: Any recent skin changes or rashes? Negative Neurologic: Any numbness or tingling? Negative Endocrine: Any diagnosis of diabetes? Negative Hematologic: Any recent bleeding episodes? Negative FAMILY HISTORY Problem Relation Age of Onset Diabetes Mother Heart Mother Hypertension Mother Lipids Mother Stroke Mother Arthritis Father Hypertension Father No Known Problems Sister No Known Problems Brother Cancer Paternal Grandmother No Known Problems Paternal Grandfather No Known Problems Daughter other (celiac disease) Daughter No Known Problems Son No Known Problems Son PAST MEDICAL HISTORY Diagnosis Date Anemia complicating 12/25/2013 Chlamydia 11/2010 Dysthymic disorder Depression (non-psychotic) Hypothyroidism Iron deficiency depression 12/03/2012 Strain of unspecified muscle and tendon at ankle and foot level, right foot, initial encounter 10/13/2017 PAST SURGICAL HISTORY Procedure Laterality Date PAST SURGICAL HISTORY OF 05/20/14 Right open reduction internal fixation clavicle TONSILLECTOMY HX TYMPANOSTOMY LOCAL/TOPICAL ANESTHESIA ALLERGIES Allergen Reactions Amoxicillin Hives Lactulose Hives Percocet [Oxycodone* Other: See Comments ABDOMINAL PAIN Suprax [Cefixime] Hives Problem List: reviewed and updated. Social History: Social History Tobacco Use Smoking status: Never Smokeless tobacco: Never Vaping Use Vaping Use: Never used Substance Use Topics Alcohol use: Not Currently Drug use: No Current Outpatient Medications Medication Sig ibuprofen (MOTRIN) 600 mg tablet TAKE 1 TABLET BY MOUTH THREE TIMES DAILY NEEDED FOR PAIN OR FEVER fluticasone (FLONASE) 50 mcg/actuation nasal spray Use 2 Sprays in each nostril once daily. Rinse mouth after use. Food Supplement, Lactose-Free (ENSURE ACTIVE MUSCLE HEALTH) liqd Take 237 mL by mouth four times daily for 7 days. No current facility-administered medications for this visit. General Physical Exam: LMP 05/07/2019 (Within Days) No weight on file for this encounter. Constitutional: Pleasant, well-appearing, no acute distress. Resp: breathing is unlabored without audible wheeze Vascular: Normal pedal and radial pulses, no cyanosis, no venous stasis changes Skin: No overlying skin change, ecchymosis, or erythema. Psychiatric: Pleasant, direct, appropriate mood and affect Focused Musculoskeletal/Neurologic exam: Right Atrophy/asymmetry No Scapular dyskinesia No AC tenderness No ROM (Passive/Active): FE (degree) 160/160 ER (degree) 60/60 ER Lag (degree) 0 IR (degree) T10 Strength (1-5) ABD in plane of scapula 4+/5, limited by pain ER 5/5 IR 5/5 Provacative tests: Job s test Negative Neer and Fox test Negative Belly press test Negative O Michael s test Negative Speed's test Negative Hornblower's sign Negative Cross Body Adduction Positive Apprehension Negative Sulcus Negative Load and Shift Negative Nerve deficit (motor/sensory) Radial n. Negative Median n. Negative Ulnar n. Negative Axillary n. Negative Vascular Distal perfusion normal Contra-lateral shoulder: within normal limits Radiographic studies: Plain Radiographs of the Right shoulder were reviewed and discussed with patient. 3 view X-rays shows stable right clavicle implants without evidence of loosening or new fracture. No joint space narrowing with no evidence of arthritis, well maintained glenohumeral relationship in AP and axillary view, normal bony structures, no calcification within the soft tissue and no evidence of fracture, subluxation or dislocation. Advanced imaging studies: none Assessment: Encounter Diagnosis ICD-10-CM 1. Closed displaced fracture of shaft of right clavicle with routine healing, subsequent encounter S42.021D XR SHOULDER GENERAL 3V OR MORE AP/TRUE AP/OTHER RIGHT 2. Painful orthopaedic hardware (HCC) T84.84XA Plan: The nature of the problem and treatment options available were discussed in detail with the patient. She had a clavicle ORIF using a pediatric plate and despite that still plate is very prominent under the skin. Overall, the skin seems calm on the plate and her right should seems painful not in the clavicle area. Best option would be to try a course of PT and if she continued to have pain in the claviel area, I would like her to get a CT scan and come seem to discuss hardware removal. All questions answered. If any more questions or concerns arise, they should not hesitate to call. Tong Mederos M.D. M.M.Sc. Shoulder and Elbow Surgeon Orthopaedic Surgery Department [place], [place] [address] Tell: [phone] Appt:[phone] 03/14/2022 3:51 PM CC:Self documented in this encounter [facility] 09-10-2021 Miscellaneous Notes Patient notified of results and provider's instructions. Patient verbalizes understanding. Criselda Bassett RN vm left with patient to contact office for results Flor Joseph Ma Please let patient know that blood work results overall look good. Her blood test for H. Pylori was positive. This shows that she has had the H.pylori infection at some point but does not confirm that she currently has infection. I need a stool sample to confirm current infection. Placed order. If stool is positive, we can treat with antibiotics. Magdalena Domínguez APRN.BLAIRE documented in this encounter [facility] 09-06-2021 Instructions Magdalena Domínguez APRN.CNP - 09/06/2021 1:56 PM EDT Get Blood work and schedule US of abdomen. Schedule with nursing program coordinator COVID and flu testing in office. documented in this encounter [facility] 09-06-2021 Nurse Note Pt states low abdominal pressure for past few days. Dark concintrated urine. documented in this encounter [facility] 09-06-2021 History of Presen t illness Narrative Chief Complaint Patient presents with: Physical HPI Carola Harding is a 31 year old female who presents here today for 6 month follow-up. Carola is an established patient of Dr. Lima. Carola is a new patient to me today. Concerns today.. Routine physical exam. Last wellness exam in January with Kenneth Peres CNP per note: ASSESSMENT/PLAN: 1. Well adult exam - ICD9: V70.0, ICD10: Z00.00 (primary diagnosis) Significantly underweight. - Follow up for annual exam in one year. 2. Underweight - ICD9: 783.22, ICD10: R63.6 Recheck in 6 months. Encouraged to increase protein intake, eat more frequent meals. 3. Telogen effluvium - ICD9: 704.02, ICD10: L65.0 Recheck in 6 months. Today.. Hair loss has significantly improved. No concerns or problems with that today. Feels hair is not thinning anymore and has actually thickened since last visit. Still trying to gain weight for over 10 years. Trying to eat more. Tries to eat healthy with bigger portions.Does not feel like she eats a small amount, just feels like it goes right through her. Has tried Ensure supplements for further nutrition. Reports always having a fast metabolism. Denies any diarrhea. Denies n/v with eating. Does report recent mild generalized abdominal discomfort x 3-4 days when using the restroom -- with urination or bowel movements. Uses bathroom about 3-4x/day. Described as dull cramping. Does not correspond with menstrual cycle. Denies bloating. Denies burning with urination, just cramping discomfort. Denies CVA tenderness. Denies depressed mood or anxiety. Influenza: 2 of her 5 children dx with influenza type A 2 weeks ago. Patient has mild cough x 1 week now. No other symptoms. Cough is mild and not bothersome. Denies fever/chills. Frequent UTI: No current symptoms besides mild cramping with urination. Just wanted to check UA to be safe as she doesn't get symptoms with prior UTI infections. in office with patient, verbally abusive during appointment to patient. kept saying Don't listen to her [patient] she is full of shit . Patient was OK with staying in room for visit. Past medical history, appointments, medications, allergies reviewed. Previous Medical History PAST MEDICAL HISTORY Diagnosis Date Anemia complicating 12/25/2013 Chlamydia 11/2010 Dysthymic disorder Depression (non-psychotic) Hypothyroidism Iron deficiency depression 12/03/2012 Strain of unspecified muscle and tendon at ankle and foot level, right foot, initial encounter 10/13/2017 Previous Surgical History PAST SURGICAL HISTORY Procedure Laterality Date PAST SURGICAL HISTORY OF 05/20/14 Right open reduction internal fixation clavicle TONSILLECTOMY HX TYMPANOSTOMY LOCAL/TOPICAL ANESTHESIA Family History FAMILY HISTORY Problem Relation Age of Onset Diabetes Mother Heart Mother Hypertension Mother Lipids Mother Stroke Mother Arthritis Father Hypertension Father No Known Problems Sister No Known Problems Brother Cancer Paternal Grandmother No Known Problems Paternal Grandfather No Known Problems Daughter other (celiac disease) Daughter No Known Problems Son No Known Problems Son Patient Allergies ALLERGIES Allergen Reactions Amoxicillin Hives Lactulose Hives Percocet [Oxycodone* Other: See Comments ABDOMINAL PAIN Suprax [Cefixime] Hives Current Medications Current Outpatient Medications on File Prior to Visit Medication Sig fluticasone (FLONASE) 50 mcg/actuation nasal spray Use 2 Sprays in each nostril once daily. Rinse mouth after use. Food Supplement, Lactose-Free (ENSURE ACTIVE MUSCLE HEALTH) liqd Take 237 mL by mouth four times daily for 7 days. No current facility-administered medications on file prior to visit. Social History Social History Tobacco Use Smoking status: Never Smoker Smokeless tobacco: Never Used Vaping Use Vaping Use: Never used Substance Use Topics Alcohol use: Not Currently Drug use: No REVIEW OF SYSTEMS: as above Reviewed relevant PMHx, PSHx, Social Hx, current medications and allergies. Review of Symptoms See HPI. All other systems are negative. EXAM: BP 90/62 (BP Site: Left Arm, BP Position: Sitting, BP Cuff Size: Regular Adult) Pulse 73 Temp 37.3 C (99.2 F) Ht 157 cm (5' 1.81 ) Wt 37.7 kg (83 lb 1.9 oz) LMP 05/07/2019 (Within Days) SpO2 100% BMI 15.30 kg/m General Appearance: Well appearing, alert, in no acute distress, well-hydrated, well nourished.. Skin: Skin color, texture, turgor normal, no suspicious rashes or lesions. Head: Normocephalic, no masses, lesions, tenderness or abnormalities. Eyes: Anicteric sclera. Pupils are equally round and reactive to light. Extraocular movements are intact. . Ears: External ears normal, canals clear. Nose/Sinuses: Nares normal, septum midline, mucosa normal, no drainage or sinus tenderness. Oropharynx: Lips, mucosa, and tongue normal, teeth and gums normal, oropharynx normal. Neck: Supple, no adenopathy; thyroid symmetric, normal size, no bruits. Lungs: Lungs clear to auscultation. No wheezing, rhonchi, rales.. Heart: RRR without murmur, gallop, or rubs. No ectopy. Abdomen: Normal abdominal exam, Abdomen soft, non-tender. Bowel sounds normal. No masses, organomegaly. Extremities: No deformities, edema, skin discoloration, clubbing or cyanosis. Good capillary refill. . Musculoskeletal: No joint swelling, deformity, or tenderness. Peripheral Pulses: Normal. Neurologic: Gait normal. Reflexes normal and symmetric. Sensation grossly intact.. Health Maintenance List COVID-19 VACCINE(1) Never done INFLUENZA(1) due on 02/10/2021 DEPRESSION SCREENING due on 01/27/2022 PAP TESTING due on 08/06/2023 HPV TESTING due on 08/06/2023 DTAP,TDAP,TD(5 - Td or Tdap) due on 11/27/2029 HEPATITIS C SCREENING Completed HIV SCREENING Completed MENINGOCOCCAL CONJUGATE Aged Out ASSESSMENT/PLAN: 1. Generalized abdominal pain - ICD9: 789.07, ICD10: R10.84 (primary diagnosis) - Labs of CBC with Diff, CMP, H pylori Antibodies, Lipase, Stool for C diff, Stool studies and Urine analysis - Work up with RUQ ultrasound - Increase fiber in diet - [place] low residue diet - UA DIP, URINE (POC) -- negative for everything. No need to send urine culture. - CBC - COMP METABOLIC PANEL - LIPASE BLD - ENTERIC BACTERIAL PANEL BY PCR - H PYLORI IGG AB - US ABD RT UPPER QUADRANT 2. Cough - ICD9: 786.2, ICD10: R05.9 Rule out Influenza A d/t exposure from children that were + for Flu A. Discussed supportive measures for cough such as increase fluid intake, rest, and hand washing. - Follow-up if symptoms worsen or continue in 5 days. - COVID WITH FLUA+B, ROUTINE 3. Underweight - ICD9: 783.22, ICD10: R63.6 - Weight slightly decreased from visit 6 months ago. - CONSULT TO NUTRITION THERAPY Follow-up in 6 months. RTO in 6 months, sooner if needed. Prescription instructions reviewed with patient as applicable. Potential red flag symptoms discussed with the patient. Reviewed appropriate action plan to take if red flag symptoms occur. Patient agreeable to treatment plan. Magdalena Domínguez APRN.ARRESTING GEAR OPERATOR [address] [place] [address] documented in this encounter [facility] documented as of this encounter (statuses as of 09/06/2021) [facility]07-23-2020 History of Past illness Narrative* Problem Noted Date Resolved Date Thrombocytopenia affecting 01/02/2020 03/23/2020 Overview: 01/30/20 - platelets 117, repeat in 1-2 weeks - Jens Kendrick MD 01/02/20 - platelets 141 - Jens Kendrick MD Hyperthyroidism affecting in second tr imester 10/03/2019 03/23/2020 Overview: 10/09/19 - labs c/w thyroiditis per . She needs repeat labs in 6-8 weeks (orders placed). Jens Kendrick MD Urinary tract infection affecting 08/1003/23/2020 Overview: 10/04/2019 Pt has had persistent UTI in . Sensitive to macrobid. Called pharmacy and pt has not picked up rx. Instructed to take the Macrobid. Will need CFC at next visit. SW 08/29/19 - patient again positive for UTI. Treating again with macrobid d/t patient allergies. Jens Kendrick MD Request for sterilization 08/27/20192019 Overview: 11/28/19 - title 19 papers signed today - Jens Kendrick MD 08/27/19 - needs to sign title 19 papers - Jens Kendrick MD Malabsorption due to intolerance, not elsewhere classified 12/14/2017 08/27/2019 Overview: 12/14/17 - Patient has done trial of PO iron, not absorbing well and IV iron recommended. Rosy Wilcox APRN.CNM Iron deficiency anemia 12/14/2017 0 Overview: 12/14/17 - Iron unresponsive to PO iron supplement - will start IV iron at this time. Rosy Wilcox APRN.CNM Strain of unspecified muscle and tendon at ankle and foot level, right foot, initial encounter 10/13/2017 10/13/2017 Fall on same level from slip ping, tripping and stumbling without subsequent striking against object, initial encounter 10/13/2017 10/13/2017 History of depression 05/18/2017 03/23/2020 Overview: 07/01/2019Pt has a history of depression diagnosed at age 16, and treated by a at [facility]. She has been treated for depression after all her deliveries. She believes she is doing well off medication, but her partner does not. He feels she has mood swings . Discussed increased risks of depression during and and importance of reporting the development or worsening of symptoms should they occur. Pt denies ever having any suicidal thoughts or tendencies or thoughts of hurting others.TKRN SGA (small for gestational age) 01/08/2014 02/01/2016 Overview: 10%ile Weekly nsts and repeat growth in 4 weeks Dori Guerra MD Anemia complicating , third trimester 0 12/25/2013 08/27/2019 Overview: 12/15/17 - Hematology consult - patient on IV iron infusion. Rosy Wilcox APRN.CNM 10/16/17 - Hgb = 9.9, patient continues to take iron supplements. Taking PNV and Ensure 3-4 drinks a day per patient report. Rosy Wilcox APRN.CNM December 25, 2013 severe anemia Hg * recommend iron supplement prescription repeat cbc in 1 month Dori Guerra MD February 02, 2016 Signif. anemia, fe low. Recommend FE bid, hasn't been taking this or PNV. Consider hematology consult to consider IV fe. See result note. Asia Wynn MD Supervision of other high-risk (V23.89) 08/13/2013 05/18/2017 Last Assessment & Plan: RA done. MH Short interval between pregn ancies complicating , antepartum 07/02/2013 02/01/2016 Overview: 07/02/2013 She delivered her previous child on September 23, 2012. TKRN IUGR (intrauterine growth re tardation) in prior , 07/02/2013 03/23/2020 Overview: one SGA, others likely constitutionally small. Thyroid disorder 07/02/2013 05/18/2017 Overview: 07/02/2013Patient has a history of a thyroid disorder treated by Dr. White, an leave coordinator in [place]. Patient took herself off of levothyroxine at the end of April because she found out she was and didn't want to take the medication while she was . Discussed this with Dr. Guerra and she recommended that the patient have a TSH, a free T3 and T4. Patient was placed on atenolol by Dr. White for tremors due to hyperthyroidism. Patient also took herself off of this medication in April. She denies any tremors since going off the medication. TKRN Iron deficiency 03/08/2013 08/27/2019 Underweight 12/25/2012 03/23/2020 Overview: 08/06/2018 Has taken Ensure in past during . TKRN Weight loss 12/25/2012 05/18/2017 Decreased appetite 12/25/2012 02/01/2016 Rash 12/25/2012 02/01/2016 Fatigue 12/25/2012 02/01/2016 depression 12/03/2012 02/01/2016 Uterine size date discrepancy, antepartum 201211/12/2012 care of habitual aborter in first trim yosvany 06/20/2012 11/12/2012 Normal , first 06/20/2012 11/13/19 13 Abnormal thyroid blood test 05/29/201212/2016 Overview: (TSH was 0.199) This may be normal in , but should be repeated 6-12 weeks post . Her free t3 and T4 were normal. History of left flank pain 03/19/201211/12 Overview: 03/19/2012Faby was seen at [facility] on March 06 for left flank pain. An ultrasound was done that revealed an intrauterine at 11 weeks 2 days. Urinalysis was negative. Patient denies any pain since then. [facility] ER report was faxed here and sent to Dr. Meeta Dhaliwal's office for review. 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 Patient states she was seen in [facility] 2 weeks ago for spotting during . She denies any bleeding since then. She denies any pain or cramping. She states she had an ultrasound done at [facility] that showed an intrauterine with an estimated due date of April 21. Patient signed a release of records form to obtain her records from her emergency room visit. Miscarriage precautions discussed. Depression 09/29/2011 05/18/2017 Overview: 07/02/2013 Pt has a history of depression diagnosed at age 16, and treated by a DrJoann at [facility]. She was treated for depression by Dr. Dori Guerra. She is currently taking Prozac. She wishes to discuss with Dr. Dhaliwal the risks and benefits of taking this medication during at her new OB appointment. Discussed increased risks of depression during and and importance of reporting the development or worsening of symptoms should they occur. Pt denies ever having any suicidal thoughts or tendencies or thoughts of hurting others. [facility] documented as of this encounter (statuses as of 09/10/2021) [facility]07-23-2020 History of Past illness Narrative* Problem Noted Date Resolved Date Thrombocytopenia affecting 01/02/2020 03/23/2020 Overview: 01/30/20 - platelets 117, repeat in 1-2 weeks - Jens Kendrick MD 01/02/20 - platelets 141 - Jens Kendrick MD Hyperthyroidism affecting in second tr imester 10/03/2019 03/23/2020 Overview: 10/09/19 - labs c/w thyroiditis per . She needs repeat labs in 6-8 weeks (orders placed). Jens Kendrick MD Urinary tract infection affecting 08/1003/23/2020 Overview: 10/04/2019 Pt has had persistent UTI in . Sensitive to macrobid. Called pharmacy and pt has not picked up rx. Instructed to take the Macrobid. Will need CFC at next visit. SW 08/29/19 - patient again positive for UTI. Treating again with macrobid d/t patient allergies. Jens Kendrick MD Request for sterilization 08/27/20192019 Overview: 11/28/19 - title 19 papers signed today - Jens Kendrick MD 08/27/19 - needs to sign title 19 papers - Jens Kendrick MD Malabsorption due to intolerance, not elsewhere classified 12/14/2017 08/27/2019 Overview: 12/14/17 - Patient has done trial of PO iron, not absorbing well and IV iron recommended. Rosy Wilcox APRN.CNM Iron deficiency anemia 12/14/2017 0 Overview: 12/14/17 - Iron unresponsive to PO iron supplement - will start IV iron at this time. Rosy Wilcox APRN.CNM Strain of unspecified muscle and tendon at ankle and foot level, right foot, initial encounter 10/13/2017 10/13/2017 Fall on same level from slip ping, tripping and stumbling without subsequent striking against object, initial encounter 10/13/2017 10/13/2017 History of depression 05/18/2017 03/23/2020 Overview: 07/01/2019Pt has a history of depression diagnosed at age 16, and treated by a at [facility]. She has been treated for depression after all her deliveries. She believes she is doing well off medication, but her partner does not. He feels she has mood swings . Discussed increased risks of depression during and and importance of reporting the development or worsening of symptoms should they occur. Pt denies ever having any suicidal thoughts or tendencies or thoughts of hurting others.TKRN SGA (small for gestational age) 01/08/2014 02/01/2016 Overview: 10%ile Weekly nsts and repeat growth in 4 weeks Dori Guerra MD Anemia complicating , third trimester 0 12/25/2013 08/27/2019 Overview: 12/15/17 - Hematology consult - patient on IV iron infusion. Rosy Wilcox APRN.DIANAM 10/16/17 - Hgb = 9.9, patient continues to take iron supplements. Taking PNV and Ensure 3-4 drinks a day per patient report. Rosy Wilcox APRN.CNM December 25, 2013 severe anemia Hg * recommend iron supplement prescription repeat cbc in 1 month Dori Guerra MD February 02, 2016 Signif. anemia, fe low. Recommend FE bid, hasn't been taking this or PNV. Consider hematology consult to consider IV fe. See result note. Asia Wynn MD Supervision of other high-risk (V23.89) 08/13/2013 05/18/2017 Last Assessment & Plan: RA done. MH Short interval between pregn ancies complicating , antepartum 07/02/2013 02/01/2016 Overview: 07/02/2013 She delivered her previous child on September 23, 2012. TKRN IUGR (intrauterine growth re tardation) in prior , 07/02/2013 03/23/2020 Overview: one SGA, others likely constitutionally small. Thyroid disorder 07/02/2013 05/18/2017 Overview: 07/02/2013Patient has a history of a thyroid disorder treated by Dr. White, an leave coordinator in [place]. Patient took herself off of levothyroxine at the end of April because she found out she was and didn't want to take the medication while she was . Discussed this with Dr. Guerra and she recommended that the patient have a TSH, a free T3 and T4. Patient was placed on atenolol by Dr. White for tremors due to hyperthyroidism. Patient also took herself off of this medication in April. She denies any tremors since going off the medication. TKRN Iron deficiency 03/08/2013 08/27/2019 Underweight 12/25/2012 03/23/2020 Overview: 08/06/2018 Has taken Ensure in past during . TKRN Weight loss 12/25/2012 05/18/2017 Decreased appetite 12/25/2012 02/01/2016 Rash 12/25/2012 02/01/2016 Fatigue 12/25/2012 02/01/2016 depression 12/03/2012 02/01/2016 Uterine size date discrepancy, antepartum 201211/12/2012 care of habitual aborter in first trim [place] 06/20/2012 11/12/2012 Normal , first 06/20/2012 11/13/19 13 Abnormal thyroid blood test 05/29/201212/2016 Overview: (TSH was 0.199) This may be normal in , but should be repeated 6-12 weeks post . Her free t3 and T4 were normal. History of left flank pain 03/19/201211/12 Overview: 03/19/2012Faby was seen at [facility] on March 06 for left flank pain. An ultrasound was done that revealed an intrauterine at 11 weeks 2 days. Urinalysis was negative. Patient denies any pain since then. [facility] ER report was faxed here and sent to Dr. Meeta Dhaliwal's office for review. 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 Patient states she was seen in [facility] 2 weeks ago for spotting during . She denies any bleeding since then. She denies any pain or cramping. She states she had an ultrasound done at [facility] that showed an intrauterine with an estimated due date of April 21. Patient signed a release of records form to obtain her records from her emergency room visit. Miscarriage precautions discussed. Depression 09/29/2011 05/18/2017 Overview: 07/02/2013 Pt has a history of depression diagnosed at age 16, and treated by a DrJoann at [facility]. She was treated for depression by Dr. Dori Guerra. She is currently taking Prozac. She wishes to discuss with Dr. Dhaliwal the risks and benefits of taking this medication during at her new OB appointment. Discussed increased risks of depression during and and importance of reporting the development or worsening of symptoms should they occur. Pt denies ever having any suicidal thoughts or tendencies or thoughts of hurting others. [facility] documented as of this encounter (statuses as of 03/15/2022) [facility]07-23-2020 History of Past illness Narrative* Problem Noted Date Resolved Date Thrombocytopenia affecting 01/02/2020 03/23/2020 Overview: 01/30/20 - platelets 117, repeat in 1-2 weeks - Jens Kendrick MD 01/02/20 - platelets 141 - Jens Kendrick MD Hyperthyroidism affecting in second tr imester 10/03/2019 03/23/2020 Overview: 10/09/19 - labs c/w thyroiditis per . She needs repeat labs in 6-8 weeks (orders placed). Jens Kendrick MD Urinary tract infection affecting 08/1003/23/2020 Overview: 10/04/2019 Pt has had persistent UTI in . Sensitive to macrobid. Called pharmacy and pt has not picked up rx. Instructed to take the Macrobid. Will need CFC at next visit. SW 08/29/19 - patient again positive for UTI. Treating again with macrobid d/t patient allergies. Jens Kendrick MD Request for sterilization 08/27/20192019 Overview: 11/28/19 - title 19 papers signed today - Jens Kendrick MD 08/27/19 - needs to sign title 19 papers - Jens Kendrick MD Malabsorption due to intolerance, not elsewhere classified 12/14/2017 08/27/2019 Overview: 12/14/17 - Patient has done trial of PO iron, not absorbing well and IV iron recommended. Rosy Wilcox APRN.CNM Iron deficiency anemia 12/14/2017 0 Overview: 12/14/17 - Iron unresponsive to PO iron supplement - will start IV iron at this time. Rosy Wilcox APRN.CNM Strain of unspecified muscle and tendon at ankle and foot level, right foot, initial encounter 10/13/2017 10/13/2017 Fall on same level from slip ping, tripping and stumbling without subsequent striking against object, initial encounter 10/13/2017 10/13/2017 History of depression 05/18/2017 03/23/2020 Overview: 07/01/2019Pt has a history of depression diagnosed at age 16, and treated by a at [facility]. She has been treated for depression after all her deliveries. She believes she is doing well off medication, but her partner does not. He feels she has mood swings . Discussed increased risks of depression during and and importance of reporting the development or worsening of symptoms should they occur. Pt denies ever having any suicidal thoughts or tendencies or thoughts of hurting others.TKRN SGA (small for gestational age) 01/08/2014 02/01/2016 Overview: 10%ile Weekly nsts and repeat growth in 4 weeks Dori Guerra MD Anemia complicating , third trimester 0 12/25/2013 08/27/2019 Overview: 12/15/17 - Hematology consult - patient on IV iron infusion. Rosy Wilcox APRN.DIANAM 10/16/17 - Hgb = 9.9, patient continues to take iron supplements. Taking PNV and Ensure 3-4 drinks a day per patient report. Rosy Wilcox APRN.CNM December 25, 2013 severe anemia Hg * recommend iron supplement prescription repeat cbc in 1 month Dori Guerra MD February 02, 2016 Signif. anemia, fe low. Recommend FE bid, hasn't been taking this or PNV. Consider hematology consult to consider IV fe. See result note. Asia Wynn MD Supervision of other high-risk (V23.89) 08/13/2013 05/18/2017 Last Assessment & Plan: RA done. MH Short interval between pregn ancies complicating , antepartum 07/02/2013 02/01/2016 Overview: 07/02/2013 She delivered her previous child on September 23, 2012. TKRN IUGR (intrauterine growth re tardation) in prior , 07/02/2013 03/23/2020 Overview: one SGA, others likely constitutionally small. Thyroid disorder 07/02/2013 05/18/2017 Overview: 07/02/2013Patient has a history of a thyroid disorder treated by Dr. White, an leave coordinator in [place]. Patient took herself off of levothyroxine at the end of April because she found out she was and didn't want to take the medication while she was . Discussed this with Dr. Guerra and she recommended that the patient have a TSH, a free T3 and T4. Patient was placed on atenolol by Dr. White for tremors due to hyperthyroidism. Patient also took herself off of this medication in April. She denies any tremors since going off the medication. TKRN Iron deficiency 03/08/2013 08/27/2019 Underweight 12/25/2012 03/23/2020 Overview: 08/06/2018 Has taken Ensure in past during . TKRN Weight loss 12/25/2012 05/18/2017 Decreased appetite 12/25/2012 02/01/2016 Rash 12/25/2012 02/01/2016 Fatigue 12/25/2012 02/01/2016 depression 12/03/2012 02/01/2016 Uterine size date discrepancy, antepartum 201211/12/2012 care of habitual aborter in first trim [place] 06/20/2012 11/12/2012 Normal , first 06/20/2012 11/13/19 13 Abnormal thyroid blood test 05/29/201212/2016 Overview: (TSH was 0.199) This may be normal in , but should be repeated 6-12 weeks post . Her free t3 and T4 were normal. History of left flank pain 03/19/201211/12 Overview: 03/19/2012Faby was seen at [facility] on March 06 for left flank pain. An ultrasound was done that revealed an intrauterine at 11 weeks 2 days. Urinalysis was negative. Patient denies any pain since then. [facility] ER report was faxed here and sent to Dr. Meeta Dhaliwal's office for review. 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 Patient states she was seen in [facility] 2 weeks ago for spotting during . She denies any bleeding since then. She denies any pain or cramping. She states she had an ultrasound done at [facility] that showed an intrauterine with an estimated due date of April 21. Patient signed a release of records form to obtain her records from her emergency room visit. Miscarriage precautions discussed. Depression 09/29/2011 05/18/2017 Overview: 07/02/2013 Pt has a history of depression diagnosed at age 16, and treated by a at [facility]. She was treated for depression by Dr. Dori Guerra. She is currently taking Prozac. She wishes to discuss with Dr. Dhaliwal the risks and benefits of taking this medication during at her new OB appointment. Discussed increased risks of depression during and and importance of reporting the development or worsening of symptoms should they occur. Pt denies ever having any suicidal thoughts or tendencies or thoughts of hurting others. [facility] documented as of this encounter (statuses as of 03/15/2022) [facility]07-[facility]-2020 History of Past illness Narrative* Problem Noted Date Resolved Date Thrombocytopenia affecting 01/02/2020 03/23/2020 Overview: 01/30/20 - platelets 117, repeat in 1-2 weeks - Jens Kendrick MD 01/02/20 - platelets 141 - Jens Kendrick MD Hyperthyroidism affecting in second tr imester 10/03/2019 03/23/2020 Overview: 10/09/19 - labs c/w thyroiditis per . She needs repeat labs in 6-8 weeks (orders placed). eJns Kendrick MD Urinary tract infection affecting 08/1003/23/2020 Overview: 10/04/2019 Pt has had persistent UTI in . Sensitive to macrobid. Called pharmacy and pt has not picked up rx. Instructed to take the Macrobid. Will need CFC at next visit. SW 08/29/19 - patient again positive for UTI. Treating again with macrobid d/t patient allergies. Jens Kendrick MD Request for sterilization 08/27/20192019 Overview: 11/28/19 - title 19 papers signed today - Jens Kendrick MD 08/27/19 - needs to sign title 19 papers - Jens Kendrick MD Malabsorption due to intolerance, not elsewhere classified 12/14/2017 08/27/2019 Overview: 12/14/17 - Patient has done trial of PO iron, not absorbing well and IV iron recommended. Rosy Wilcox APRN.CNM Iron deficiency anemia 12/14/2017 0 Overview: 12/14/17 - Iron unresponsive to PO iron supplement - will start IV iron at this time. Rosy Wilcox APRN.CNM Strain of unspecified muscle and tendon at ankle and foot level, right foot, initial encounter 10/13/2017 10/13/2017 Fall on same level from slip ping, tripping and stumbling without subsequent striking against object, initial encounter 10/13/2017 10/13/2017 History of depression 05/18/2017 03/23/2020 Overview: 07/01/2019Pt has a history of depression diagnosed at age 16, and treated by a at [facility]. She has been treated for depression after all her deliveries. She believes she is doing well off medication, but her partner does not. He feels she has mood swings . Discussed increased risks of depression during and and importance of reporting the development or worsening of symptoms should they occur. Pt denies ever having any suicidal thoughts or tendencies or thoughts of hurting others.TKRN SGA (small for gestational age) 01/08/2014 02/01/2016 Overview: 10%ile Weekly nsts and repeat growth in 4 weeks Dori Guerra MD Anemia complicating , third trimester 0 12/25/2013 08/27/2019 Overview: 12/15/17 - Hematology consult - patient on IV iron infusion. Rosy Wilcox APRN.CNM 10/16/17 - Hgb = 9.9, patient continues to take iron supplements. Taking PNV and Ensure 3-4 drinks a day per patient report. Rosy Wilcox APRN.CNM December 25, 2013 severe anemia Hg * recommend iron supplement prescription repeat cbc in 1 month Dori Guerra MD February 02, 2016 Signif. anemia, fe low. Recommend FE bid, hasn't been taking this or PNV. Consider hematology consult to consider IV fe. See result note. Asia Wynn MD Supervision of other high-risk (V23.89) 08/13/2013 05/18/2017 Last Assessment & Plan: RA done. MH Short interval between pregn ancies complicating , antepartum 07/02/2013 02/01/2016 Overview: 07/02/2013 She delivered her previous child on September 23, 2012. TKRN IUGR (intrauterine growth re tardation) in prior , 07/02/2013 03/23/2020 Overview: one SGA, others likely constitutionally small. Thyroid disorder 07/02/2013 05/18/2017 Overview: 07/02/2013Patient has a history of a thyroid disorder treated by Dr. White, an leave coordinator in [place]. Patient took herself off of levothyroxine at the end of April because she found out she was and didn't want to take the medication while she was . Discussed this with Dr. Guerra and she recommended that the patient have a TSH, a free T3 and T4. Patient was placed on atenolol by Dr. White for tremors due to hyperthyroidism. Patient also took herself off of this medication in April. She denies any tremors since going off the medication. TKRN Iron deficiency 03/08/2013 08/27/2019 Underweight 12/25/2012 03/23/2020 Overview: 08/06/2018 Has taken Ensure in past during . TKRN Weight loss 12/25/2012 05/18/2017 Decreased appetite 12/25/2012 02/01/2016 Rash 12/25/2012 02/01/2016 Fatigue 12/25/2012 02/01/2016 depression 12/03/2012 02/01/2016 Uterine size date discrepancy, antepartum 201211/12/2012 care of habitual aborter in first trim [place] 06/20/2012 11/12/2012 Normal , first 06/20/2012 11/13/19 13 Abnormal thyroid blood test 05/29/2012 1212/2016 Overview: (TSH was 0.199) This may be normal in , but should be repeated 6-12 weeks post . Her free t3 and T4 were normal. History of left flank pain 03/19/201211/12 Overview: 03/19/2012Faby was seen at [facility] on March 06 for left flank pain. An ultrasound was done that revealed an intrauterine at 11 weeks 2 days. Urinalysis was negative. Patient denies any pain since then. [facility] ER report was faxed here and sent to Dr. Meeta Dhaliwal's office for review. 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 Patient states she was seen in [facility] 2 weeks ago for spotting during . She denies any bleeding since then. She denies any pain or cramping. She states she had an ultrasound done at [facility] that showed an intrauterine with an estimated due date of April 21. Patient signed a release of records form to obtain her records from her emergency room visit. Miscarriage precautions discussed. Depression 09/29/2011 05/18/2017 Overview: 07/02/2013 Pt has a history of depression diagnosed at age 16, and treated by a DrJoann at [place]. She was treated for depression by Dr. Dori Guerra. She is currently taking Prozac. She wishes to discuss with Dr. Dhaliwal the risks and benefits of taking this medication during at her new OB appointment. Discussed increased risks of depression during and and importance of reporting the development or worsening of symptoms should they occur. Pt denies ever having any suicidal thoughts or tendencies or thoughts of hurting others. TKRN documented as of this encounter (statuses as of 03/28/2022) [facility]07-23-2020 History of Past illness Narrative* Problem Noted Date Diagnosed Date Resolved Date Thrombocytopenia affecting 01/02/2020 03/23/2020 Overview: 01/30/20 - platelets 117, repeat in 1-2 weeks - Jens Kendrick MD 01/02/20 - platelets 141 - Jens Kendrick MD Hyperthyroidism affecting pr egnancy in second trimester 10/03/2019 03/23/2020 Overview: 10/09/19 - labs c/w thyroiditis per . She needs repeat labs in 6-8 weeks (orders placed). Jens Kendrick MD Urinary tract infection affecting 08/29/2019 03/23/2020 Overview: 10/04/2019 Pt has had persistent UTI in . Sensitive to macrobid. Called pharmacy and pt has not picked up rx. Instructed to take the Macrobid. Will need CFC at next visit. SW 08/29/19 - patient again positive for UTI. Treating again with macrobid d/t patient allergies. 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 Rosy Wilcox APRN.CNM Iron deficiency anemia 12/14/201708/26 Overview: 12/14/17 - Iron unresponsive to PO iron supplement - will start IV iron at this time. Rosy Wilcox APRN.CNM Strain of unspecified muscle and tendon at ankle and foot level, right foot, initial encounter 10/13/2017 10/13/2017 Fall on same level from slip ping, tripping and stumbling without subsequent striking against object, initial encounter 10/13/20172017 History of depression 05/18/20172019 Overview: 07/01/2019Pt has a history of depression diagnosed at age 16, and treated by a at [facility]. She has been treated for depression after all her deliveries. She believes she is doing well off medication, but her partner does not. He feels she has mood swings . Discussed increased risks of depression during and and importance of reporting the development or worsening of symptoms should they occur. Pt denies ever having any suicidal thoughts or tendencies or thoughts of hurting others.TKRN SGA (small for gestational age) 01/08/2014 02/01/2016 Overview: 10%ile Weekly nsts and repeat growth in 4 weeks Dori Guerra MD Anemia complicating pregnanc y, third trimester 12/25/2013 08/27/2019 Overview: 12/15/17 - Hematology consult - patient on IV iron infusion. Rosy Wilcox APRN.CNM 10/16/17 - Hgb = 9.9, patient continues to take iron supplements. Taking PNV and Ensure 3-4 drinks a day per patient report. Rosy Wilcox APRN.CNM December 25, 2013 severe anemia Hg * recommend iron supplement prescription repeat cbc in 1 month Dori Guerra MD February 02, 2016 Signif. anemia, fe low. Recommend FE bid, hasn't been taking this or PNV. Consider hematology consult to consider IV fe. See result note. Asia Wynn MD Supervision of other high-ri (V23.89) 08/13/2013 05/18/2017 Last Assessment & Plan: RA done. MH Short interval between pregn ancies complicating , antepartum 07/02/201301/31 Overview: 07/02/2013 She delivered her previous child on September 23, 2012. TKRN IUGR (intrauterine growth re tardation) in prior , 07/02/2013 03/23/2020 Overview: one SGA, others likely constitutionally small. Thyroid disorder 07/02/2013 05/18/2017 Overview: 07/02/2013Patient has a history of a thyroid disorder treated by Dr. White, an leave coordinator in [place]. Patient took herself off of levothyroxine at the end of April because she found out she was and didn't want to take the medication while she was . Discussed this with Dr. Guerra and she recommended that the patient have a TSH, a free T3 and T4. Patient was placed on atenolol by Dr. White for tremors due to hyperthyroidism. Patient also took herself off of this medication in April. She denies any tremors since going off the medication. TKRN Iron deficiency 03/08/2013 08/27/2019 Underweight 12/25/2012 03/23/2020 Overview: 08/06/2018 Has taken Ensure in past during . TKRN Weight loss 12/25/2012 05/18/2017 Decreased appetite 12/25/2012 6 Rash 12/25/2012 02/01/2016 Fatigue 12/25/2012 02/01/2016 depression 12/03/20122015 Uterine size date discrepancy, antepartum 09/06/2012 11/12/2012 care of habitual a borter in first trimester 06/20/2012 11/12/2012 Normal , first 06/20/201208/2012 Abnormal thyroid blood test 05/29/2012 05/18/2017 Overview: (TSH was 0.199) This may be normal in , but should be repeated 6-12 weeks post . Her free t3 and T4 were normal. History of left flank pain 03/19/2012 0 11/12/2012 Overview: 03/19/2012Faby was seen at [facility] on March 06 for left flank pain. An ultrasound was done that revealed an intrauterine at 11 weeks 2 days. Urinalysis was negative. Patient denies any pain since then. [facility] ER report was faxed here and sent to Dr. Meeta Dhaliwal's office for review. 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 Patient states she was seen in [facility] 2 weeks ago for spotting during . She denies any bleeding since then. She denies any pain or cramping. She states she had an ultrasound done at [facility] that showed an intrauterine with an estimated due date of April 21. Patient signed a release of records form to obtain her records from her emergency room visit. Miscarriage precautions discussed. Depression 09/29/2011 05/18/2017 Overview: 07/02/2013 Pt has a history of depression diagnosed at age 16, and treated by a DrJoann at [place]. She was treated for depression by Dr. Dori Guerra. She is currently taking Prozac. She wishes to discuss with Dr. Dhaliwal the risks and benefits of taking this medication during at her new OB appointment. Discussed increased risks of depression during and and importance of reporting the development or worsening of symptoms should they occur. Pt denies ever having any suicidal thoughts or tendencies or thoughts of hurting others. TKRN documented as of this encounter (statuses as of 03/04/2023) [facility]07-23-2020 History of Past illness Narrative* Problem Noted Date Diagnosed Date Resolved Date Thrombocytopenia affecting 01/02/2020 03/23/2020 Overview: 01/30/20 - platelets 117, repeat in 1-2 weeks - Jens Kendrick MD 01/02/20 - platelets 141 - Jens Kendrick MD Hyperthyroidism affecting pr egnancy in second trimester 10/03/2019 03/23/2020 Overview: 10/09/19 - labs c/w thyroiditis per . She needs repeat labs in 6-8 weeks (orders placed). Jens Kendrick MD Urinary tract infection affecting 08/29/2019 03/23/2020 Overview: 10/04/2019 Pt has had persistent UTI in . Sensitive to macrobid. Called pharmacy and pt has not picked up rx. Instructed to take the Macrobid. Will need CFC at next visit. SW 08/29/19 - patient again positive for UTI. Treating again with macrobid d/t patient allergies. 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 Rosy Wilcox APRN.CNM Iron deficiency anemia 12/14/201708/26 Overview: 12/14/17 - Iron unresponsive to PO iron supplement - will start IV iron at this time. Rosy Wilcox APRN.CNM Strain of unspecified muscle and tendon at ankle and foot level, right foot, initial encounter 10/13/2017 10/13/2017 Fall on same level from slip ping, tripping and stumbling without subsequent striking against object, initial encounter 10/13/20172017 History of depression 05/18/20172019 Overview: 07/01/2019Pt has a history of depression diagnosed at age 16, and treated by a at [facility]. She has been treated for depression after all her deliveries. She believes she is doing well off medication, but her partner does not. He feels she has mood swings . Discussed increased risks of depression during and and importance of reporting the development or worsening of symptoms should they occur. Pt denies ever having any suicidal thoughts or tendencies or thoughts of hurting others.TKRN SGA (small for gestational age) 01/08/2014 02/01/2016 Overview: 10%ile Weekly nsts and repeat growth in 4 weeks Dori Guerra MD Anemia complicating pregnanc y, third trimester 12/25/2013 08/27/2019 Overview: 12/15/17 - Hematology consult - patient on IV iron infusion. Rosy Wilcox APRN.CNM 10/16/17 - Hgb = 9.9, patient continues to take iron supplements. Taking PNV and Ensure 3-4 drinks a day per patient report. Rosy Wilcox APRN.CNM December 25, 2013 severe anemia Hg * recommend iron supplement prescription repeat cbc in 1 month Dori Guerra MD February 02, 2016 Signif. anemia, fe low. Recommend FE bid, hasn't been taking this or PNV. Consider hematology consult to consider IV fe. See result note. Asia Wynn MD Supervision of other high-ri (V23.89) 08/13/2013 05/18/2017 Last Assessment & Plan: RA done. MH Short interval between pregn ancies complicating , antepartum 07/02/201301/31 Overview: 07/02/2013 She delivered her previous child on September 23, 2012. TKRN IUGR (intrauterine growth re tardation) in prior , 07/02/2013 03/23/2020 Overview: one SGA, others likely constitutionally small. Thyroid disorder 07/02/2013 05/18/2017 Overview: 07/02/2013Patient has a history of a thyroid disorder treated by Dr. White, an leave coordinator in [place]. Patient took herself off of levothyroxine at the end of April because she found out she was and didn't want to take the medication while she was . Discussed this with Dr. Guerra and she recommended that the patient have a TSH, a free T3 and T4. Patient was placed on atenolol by Dr. White for tremors due to hyperthyroidism. Patient also took herself off of this medication in April. She denies any tremors since going off the medication. TKRN Iron deficiency 03/08/2013 08/27/2019 Underweight 12/25/2012 03/23/2020 Overview: 08/06/2018 Has taken Ensure in past during . TKRN Weight loss 12/25/2012 05/18/2017 Decreased appetite 12/25/2012 6 Rash 12/25/2012 02/01/2016 Fatigue 12/25/2012 02/01/2016 depression 12/03/20122015 Uterine size date discrepancy, antepartum 09/06/2012 11/12/2012 care of habitual a borter in first trimester 06/20/2012 11/12/2012 Normal , first 06/20/201208/2012 Abnormal thyroid blood test 05/29/2012 05/18/2017 Overview: (TSH was 0.199) This may be normal in , but should be repeated 6-12 weeks post . Her free t3 and T4 were normal. History of left flank pain 03/19/2012 0 11/12/2012 Overview: 03/19/2012She was seen at [facility] on March 06 for left flank pain. An ultrasound was done that revealed an intrauterine at 11 weeks 2 days. Urinalysis was negative. Patient denies any pain since then. [facility] ER report was faxed here and sent to Dr. Meeta Dhaliwal's office for review. 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 Patient states she was seen in [facility] 2 weeks ago for spotting during . She denies any bleeding since then. She denies any pain or cramping. She states she had an ultrasound done at [facility] that showed an intrauterine with an estimated due date of April 21. Patient signed a release of records form to obtain her records from her emergency room visit. Miscarriage precautions discussed. Depression 09/29/2011 05/18/2017 Overview: 07/02/2013 Pt has a history of depression diagnosed at age 16, and treated by a DrJoann at [facility]. She was treated for depression by Dr. Dori Guerra. She is currently taking Prozac. She wishes to discuss with Dr. Dhaliwal the risks and benefits of taking this medication during at her new OB appointment. Discussed increased risks of depression during and and importance of reporting the development or worsening of symptoms should they occur. Pt denies ever having any suicidal thoughts or tendencies or thoughts of hurting others. TKRN documented as of this encounter (statuses as of 04/13/2023) [facility]07-23-2020 History of Past illness Narrative* Problem Noted Date Diagnosed Date Resolved Date Thrombocytopenia affecting 01/02/2020 03/23/2020 Overview: 01/30/20 - platelets 117, repeat in 1-2 weeks - Jens Kendrick MD 01/02/20 - platelets 141 - Jens Kendrick MD Hyperthyroidism affecting pr egnancy in second trimester 10/03/2019 03/23/2020 Overview: 10/09/19 - labs c/w thyroiditis per . She needs repeat labs in 6-8 weeks (orders placed). Jens Kendrick MD Urinary tract infection affecting 08/29/2019 03/23/2020 Overview: 10/04/2019 Pt has had persistent UTI in . Sensitive to macrobid. Called pharmacy and pt has not picked up rx. Instructed to take the Macrobid. Will need CFC at next visit. SW 08/29/19 - patient again positive for UTI. Treating again with macrobid d/t patient allergies. 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 Rosy Wilcox APRN.CNM Iron deficiency anemia 12/14/201708/26 Overview: 12/14/17 - Iron unresponsive to PO iron supplement - will start IV iron at this time. Rosy Wilcox APRN.CNM Strain of unspecified muscle and tendon at ankle and foot level, right foot, initial encounter 10/13/2017 10/13/2017 Fall on same level from slip ping, tripping and stumbling without subsequent striking against object, initial encounter 10/13/20172017 History of depression 05/18/20172019 Overview: 07/01/2019Pt has a history of depression diagnosed at age 16, and treated by a at [facility]. She has been treated for depression after all her deliveries. She believes she is doing well off medication, but her partner does not. He feels she has mood swings . Discussed increased risks of depression during and and importance of reporting the development or worsening of symptoms should they occur. Pt denies ever having any suicidal thoughts or tendencies or thoughts of hurting others.TKRN SGA (small for gestational age) 01/08/2014 02/01/2016 Overview: 10%ile Weekly nsts and repeat growth in 4 weeks Dori Guerra MD Anemia complicating pregnanc y, third trimester 12/25/2013 08/27/2019 Overview: 12/15/17 - Hematology consult - patient on IV iron infusion. Rosy Wilcox APRN.DIANAM 10/16/17 - Hgb = 9.9, patient continues to take iron supplements. Taking PNV and Ensure 3-4 drinks a day per patient report. Rosy Wilcox APRN.CNM December 25, 2013 severe anemia Hg * recommend iron supplement prescription repeat cbc in 1 month Dori Guerra MD February 02, 2016 Signif. anemia, fe low. Recommend FE bid, hasn't been taking this or PNV. Consider hematology consult to consider IV fe. See result note. Asia Wynn MD Supervision of other high-ri (V23.89) 08/13/2013 05/18/2017 Last Assessment & Plan: RA done. MH Short interval between pregn ancies complicating , antepartum 07/02/201301/31 Overview: 07/02/2013 She delivered her previous child on September 23, 2012. TKRN IUGR (intrauterine growth re tardation) in prior , 07/02/2013 03/23/2020 Overview: one SGA, others likely constitutionally small. Thyroid disorder 07/02/2013 05/18/2017 Overview: 07/02/2013Patient has a history of a thyroid disorder treated by Dr. White, an leave coordinator in [place]. Patient took herself off of levothyroxine at the end of April because she found out she was and didn't want to take the medication while she was . Discussed this with Dr. Guerra and she recommended that the patient have a TSH, a free T3 and T4. Patient was placed on atenolol by Dr. White for tremors due to hyperthyroidism. Patient also took herself off of this medication in April. She denies any tremors since going off the medication. TKRN Iron deficiency 03/08/2013 08/27/2019 Underweight 12/25/2012 03/23/2020 Overview: 08/06/2018 Has taken Ensure in past during . TKRN Weight loss 12/25/2012 05/18/2017 Decreased appetite 12/25/2012 6 Rash 12/25/2012 02/01/2016 Fatigue 12/25/2012 02/01/2016 depression 12/03/20122015 Uterine size date discrepancy, antepartum 09/06/2012 11/12/2012 care of habitual a borter in first trimester 06/20/2012 11/12/2012 Normal , first 06/20/2012 0608/2012 Abnormal thyroid blood test 05/29/2012 05/18/2017 Overview: (TSH was 0.199) This may be normal in , but should be repeated 6-12 weeks post . Her free t3 and T4 were normal. History of left flank pain 03/19/2012 0 11/12/2012 Overview: 03/19/2012Faby was seen at [facility] on March 06 for left flank pain. An ultrasound was done that revealed an intrauterine at 11 weeks 2 days. Urinalysis was negative. Patient denies any pain since then. [facility] ER report was faxed here and sent to Dr. Meeta Dhaliwal's office for review. 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 Patient states she was seen in [facility] 2 weeks ago for spotting during . She denies any bleeding since then. She denies any pain or cramping. She states she had an ultrasound done at [facility] that showed an intrauterine with an estimated due date of April 21. Patient signed a release of records form to obtain her records from her emergency room visit. Miscarriage precautions discussed. Depression 09/29/2011 05/18/2017 Overview: 07/02/2013 Pt has a history of depression diagnosed at age 16, and treated by a DrJoann at [facility]. She was treated for depression by Dr. Dori Guerra. She is currently taking Prozac. She wishes to discuss with Dr. Dhaliwal the risks and benefits of taking this medication during at her new OB appointment. Discussed increased risks of depression during and and importance of reporting the development or worsening of symptoms should they occur. Pt denies ever having any suicidal thoughts or tendencies or thoughts of hurting others. TKRN documented as of this encounter (statuses as of 05/01/2023) [facility]07-23-2020 History of Past illness Narrative* Problem Noted Date Diagnosed Date Resolved Date Thrombocytopenia affecting 01/02/2020 03/23/2020 Overview: 01/30/20 - platelets 117, repeat in 1-2 weeks - Jens Kendrick MD 01/02/20 - platelets 141 - Jens Kendrick MD Hyperthyroidism affecting pr egnancy in second trimester 10/03/2019 03/23/2020 Overview: 10/09/19 - labs c/w thyroiditis per . She needs repeat labs in 6-8 weeks (orders placed). Jens Kendrick MD Urinary tract infection affecting 08/29/2019 03/23/2020 Overview: 10/04/2019 Pt has had persistent UTI in . Sensitive to macrobid. Called pharmacy and pt has not picked up rx. Instructed to take the Macrobid. Will need CFC at next visit. SW 08/29/19 - patient again positive for UTI. Treating again with macrobid d/t patient allergies. 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 Rosy Wilcox APRN.CNM Iron deficiency anemia 12/14/201708/26 Overview: 12/14/17 - Iron unresponsive to PO iron supplement - will start IV iron at this time. Rosy Wilcox APRN.CNM Strain of unspecified muscle and tendon at ankle and foot level, right foot, initial encounter 10/13/2017 10/13/2017 Fall on same level from slip ping, tripping and stumbling without subsequent striking against object, initial encounter 10/13/20172017 History of depression 05/18/20172019 Overview: 07/01/2019Pt has a history of depression diagnosed at age 16, and treated by a at [facility]. She has been treated for depression after all her deliveries. She believes she is doing well off medication, but her partner does not. He feels she has mood swings . Discussed increased risks of depression during and and importance of reporting the development or worsening of symptoms should they occur. Pt denies ever having any suicidal thoughts or tendencies or thoughts of hurting others.TKRN SGA (small for gestational age) 01/08/2014 02/01/2016 Overview: 10%ile Weekly nsts and repeat growth in 4 weeks Dori Guerra MD Anemia complicating pregnanc y, third trimester 12/25/2013 08/27/2019 Overview: 12/15/17 - Hematology consult - patient on IV iron infusion. Rosy Wilcox APRN.CNM 10/16/17 - Hgb = 9.9, patient continues to take iron supplements. Taking PNV and Ensure 3-4 drinks a day per patient report. Rosy Wilcox APRN.CNM December 25, 2013 severe anemia Hg * recommend iron supplement prescription repeat cbc in 1 month Dori Guerra MD February 02, 2016 Signif. anemia, fe low. Recommend FE bid, hasn't been taking this or PNV. Consider hematology consult to consider IV fe. See result note. Asia Wynn MD Supervision of other high-ri (V23.89) 08/13/2013 05/18/2017 Last Assessment & Plan: RA done. MH Short interval between pregn ancies complicating , antepartum 07/02/201301/31 Overview: 07/02/2013 She delivered her previous child on September 23, 2012. TKRN IUGR (intrauterine growth re tardation) in prior , 07/02/2013 03/23/2020 Overview: one SGA, others likely constitutionally small. Thyroid disorder 07/02/2013 05/18/2017 Overview: 07/02/2013Patient has a history of a thyroid disorder treated by Dr. White, an leave coordinator in [place]. Patient took herself off of levothyroxine at the end of April because she found out she was and didn't want to take the medication while she was . Discussed this with Dr. Guerra and she recommended that the patient have a TSH, a free T3 and T4. Patient was placed on atenolol by Dr. White for tremors due to hyperthyroidism. Patient also took herself off of this medication in April. She denies any tremors since going off the medication. TKRN Iron deficiency 03/08/2013 08/27/2019 Underweight 12/25/2012 03/23/2020 Overview: 08/06/2018 Has taken Ensure in past during . TKRN Weight loss 12/25/2012 05/18/2017 Decreased appetite 12/25/2012 6 Rash 12/25/2012 02/01/2016 Fatigue 12/25/2012 02/01/2016 depression 12/03/20122015 Uterine size date discrepancy, antepartum 09/06/2012 11/12/2012 care of habitual a borter in first trimester 06/20/2012 11/12/2012 Normal , first 06/20/201208/2012 Abnormal thyroid blood test 05/29/2012 05/18/2017 Overview: (TSH was 0.199) This may be normal in , but should be repeated 6-12 weeks post . Her free t3 and T4 were normal. History of left flank pain 03/19/2012 0 11/12/2012 Overview: 03/19/2012Faby was seen at [facility] on March 06 for left flank pain. An ultrasound was done that revealed an intrauterine at 11 weeks 2 days. Urinalysis was negative. Patient denies any pain since then. [facility] ER report was faxed here and sent to Dr. Meeta Dhaliwal's office for review. 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 Patient states she was seen in [facility] 2 weeks ago for spotting during . She denies any bleeding since then. She denies any pain or cramping. She states she had an ultrasound done at [facility] that showed an intrauterine with an estimated due date of April 21. Patient signed a release of records form to obtain her records from her emergency room visit. Miscarriage precautions discussed. Depression 09/29/2011 05/18/2017 Overview: 07/02/2013 Pt has a history of depression diagnosed at age 16, and treated by a at [place]. She was treated for depression by Dr. Dori Guerra. She is currently taking Prozac. She wishes to discuss with Dr. Dhaliwal the risks and benefits of taking this medication during at her new OB appointment. Discussed increased risks of depression during and and importance of reporting the development or worsening of symptoms should they occur. Pt denies ever having any suicidal thoughts or tendencies or thoughts of hurting others. TKRN documented as of this encounter (statuses as of 05/06/2023) [facility] Diagnosis Generalized abdominal pain- Primary Abdominal pain, generalized Cough Underweight documented [facility] this [facility] Diagnosis Generalized abdominal pain- Primary Abdominal pain, generalized [facility] Diagnosis Closed displaced fracture of shaft of right clavicle with routine healing, subsequent encounter- Primary 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 [facility] Diagnosis 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, subsequent encounter documented in this encounter [facility] Diagnosis Acute non-recurrent pansinusitis- Primary [facility]* Diagnosis Sinobronchitis- Primary Unspecified sinusitis (chronic) documented [facility]* Diagnosis Iron deficiency anemia, unspecified iron deficiency anemia type- Primary documented in this encounter [facility] Diagnosis Iron deficiency anemia, unspecified iron deficiency anemia type- Primary Vaginal discharge Leukorrhea, not specified as infective Menstrual period late Other disorder of menstruation and other abnormal bleeding from female genital tract Acute cough Anxiety with depression Fatigue, unspecified type documented in this encounter [facility]* Diagnosis Bacterial sinusitis- Primary Unspecified sinusitis (chronic) documented in this encounter [facility] for referral (narrative)* Diagnostic Procedure Only (Routine) - Authorized Specialty Diagnoses / Procedures Referred By Prince t Referred To Contact US IMAGING Diagnoses Generalized abdominal pain Procedures US ABD RT UPPER QUADRANT US ABDOMINAL REAL TIME W/IMAGE LIMITED Magdalena Domínguez APRN.ARRESTING GEAR OPERATOR [address] [place] [address] Us Imaging Referral ID Status Reason Start Date Expiration Date Visits Requested Visits Authorized [id number] Authorized Auto-Generat ed Referral 09/06/2021 10/06/2022 1 1 * Consult, Test, Treat (Routine) - Authorized Specialty Diagnoses / Procedures Referred By Contac t Referred To Contact Nutrition Diagnoses Underweight Procedures CONSULT TO NUTRITION THERAPY OFFICE/OUTPATIENT ON LICENSE OF [facility] MDM 60-74 MINUTES Magdalena Domínguez APRN.ARRESTING GEAR OPERATOR [address] [place] [address] Referral ID Status Reason Start Date Expiration Date Visits Requested Visits Authorized [id number] Authorized PCP Requested Referral 09/06/2021 09/06/2022 1 1 [facility] for referral (narrative)* Diagnostic Procedure Only (Routine) - Closed Specialty Diagnoses / Procedures Referred By Contac t Referred To Contact XR IMAGING Diagnoses Closed displaced fracture of shaft of right clavicle with routine healing, subsequent encounter Procedures XR SHOULDER GENERAL 3V OR MORE AP/TRUE AP/OTHER RIGHT RADEX SHOULDER COMPLETE MINIMUM 2 VIEWS Tong Mederos MD [address] [address] Xr Imaging Referral ID Status Reason Start Date Expiration Date V isits Requested Visits Authorized [id number] Closed Auto-Generate d Referral 03/14/2022 04/13/2023 1 1 [facility] for visit Narrative* Diagnostic Procedure Only (Routine) - Closed Specialty Diagnoses / Procedures Referred By Contac t Referred To Contact XR IMAGING Diagnoses Closed displaced fracture of shaft of right clavicle with routine healing, subsequent encounter Procedures XR SHOULDER GENERAL 3V OR MORE AP/TRUE AP/OTHER RIGHT RADEX SHOULDER COMPLETE MINIMUM 2 VIEWS Tong Mederos MD [address] [facility] [facility] [place] [address] Xr Imaging Referral ID Status Reason Start Date Expiration Date V isits Requested Visits Authorized [id number] Closed Auto-Generate d Referral 03/14/2022 04/13/2023 1 1 [facility] Summary Purpose Family History No Family History Records FoundNo Family History Records FoundNo Family History Records FoundNo Family History Records Found Advance Directives No Advanced Directives Records FoundNo Advanced Directives Records FoundNo Advanced Directives Records FoundNo Advanced Directives Records Found Reason for Referral Specialty Diagnoses / Procedures Referred By Prince dupont Referred To Contact [facility] Diagnoses Closed displaced fracture of shaft of right clavicle with routine healing, subsequent encounter 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 Procedures CONSULT TO PHYSICAL THERAPY PHYSICAL THERAPY EVALUATION HIGH COMPLEX 45 MINS Tong Mederos MD [address] [place] [address] [facility] [address] [place], [place] [address] [place] [id number] Referral ID Status Reason Start Date Expiration Date Visits Requested Visits Authorized [id number] Pending Review Auto-Generat ed Referral 03/14/2022 03/14/2023 1 1 Specialty Diagnoses / Procedures Referred By Prince dupont Referred To Contact XR IMAGING Diagnoses Closed displaced fracture of shaft of right clavicle with routine healing, subsequent encounter Procedures XR SHOULDER GENERAL 3V OR MORE AP/TRUE AP/OTHER RIGHT RADEX SHOULDER COMPLETE MINIMUM 2 VIEWS Tong Mederos MD [address] [place] [address] Xr Imaging Referral ID Status Reason Start Date Expiration Date V isits Requested Visits Authorized [id number] Closed Auto-Generate d Referral 03/14/2022 04/13/2023 1 1 Additional Source Comments INFORMATION SOURCE (unrecogn ized section and content) DATE CREATED AUTHOR AUTHOR'S ORGANIZ ATION 12/08/2018 [facility] DATE CREATED AUTHOR AUTHOR'S ORGANIZ ATION 05/29/2023 [facility] DATE CREATED AUTHOR AUTHOR'S ORGANIZ ATION 06/01/2023 [facility] Source Comments (unrecognize d section and content) In the event this informatio n is protected by the Federal Confidentiality of Alcohol and Drug Abuse Patient Records regulations: The Federal rules restrict any use of the information to criminally investigate or prosecute any alcohol or drug abuse patient.[facility] event this information is protected by the Federal Confidentiality of Alcohol and Drug Abuse Patient Records regulations: The Federal rules restrict any use of the information to criminally investigate or prosecute any alcohol or drug abuse patient.[facility] the event this information is protected by the Federal Confidentiality of Alcohol and Drug Abuse Patient Records regulations: The Federal rules restrict any use of the information to criminally investigate or prosecute any alcohol or drug abuse patient.[facility] the event this information is protected by the Federal Confidentiality of Alcohol and Drug Abuse Patient Records regulations: The Federal rules restrict any use of the information to criminally investigate or prosecute any alcohol or drug abuse patient.[facility] the event this information is protected by the Federal Confidentiality of Alcohol and Drug Abuse Patient Records regulations: The Federal rules restrict any use of the information to criminally investigate or prosecute any alcohol or drug abuse patient.[facility] the event this information is protected by the Federal Confidentiality of Alcohol and Drug Abuse Patient Records regulations: The Federal rules restrict any use of the information to criminally investigate or prosecute any alcohol or drug abuse patient.[facility] the event this information is protected by the Federal Confidentiality of Alcohol and Drug Abuse Patient Records regulations: The Federal rules restrict any use of the information to criminally investigate or prosecute any alcohol or drug abuse patient.[facility] the event this information is protected by the Federal Confidentiality of Alcohol and Drug Abuse Patient Records regulations: The Federal rules restrict any use of the information to criminally investigate or prosecute any alcohol or drug abuse patient.[facility] the event this information is protected by the Federal Confidentiality of Alcohol and Drug Abuse Patient Records regulations: The Federal rules restrict any use of the information to criminally investigate or prosecute any alcohol or drug abuse patient.[facility] Reason for Visit (unrecogniz ed section and content) Reason Comments Results Reason Comments New Pain Stiffness Weakness Reason Comments Nasal Congestion cough, sore throat x 1 week Reason Comments Sore Throat Cough x 1 week Reason Comments follow up Head aches , nasal c ongestion Reason Comments Cough Runny nose, nasal co ngestion,pressure in head, headache x 2 weeks Care Teams (unrecognized sec tion and content) Title Curator Relationship Specialty Start Date End Date Jamari Lima DO [address] [place] [address] PCP - General Family Practice 05/05/18 Title Curator Relationship Specialty Start Date End Date Jamari Lima DO [address] [place] [address] PCP - General Family Medicine 05/05/18 Title Curator Relationship Specialty Start Date End Date Jamari Lima DO [address] [place] [address] PCP - General Family Medicine 05/05/18 Title Curator Relationship Specialty Start Date End Date Jamari Lima DO [address] [place] [address] PCP - General Family Medicine 05/05/18 Title Curator Relationship Specialty Start Date End Date Jamari Lima DO [address] [place] [address] PCP - General Family Medicine 05/05/18 Title Curator Relationship Specialty Start Date End Date Jamari Lima DO [address] [place] [address] PCP - General Family Medicine 05/05/18 Title Curator Relationship Specialty Start Date End Date Jamari LimaDO [address] [place] [address] PCP - General Family Medicine 05/05/18 Title Curator Relationship Specialty Start Date End Date LimaJamari luis Khushi, DO [address] [place] [address] PCP - General Family Medicine 05/05/18 FOR RECORDS PERTAINING TO PATIENTS WHO ARE OR HAVE BEEN ENROLLED IN A CHEMICAL DEPENDENCY/SUBSTANCEABUSE PROGRAM, SOME INFORMATION MAY BE OMITTED. This clinical summary was aggregated from multiple sources. Caution should be exercised in using it in the provision of clinical care. This summary normalizes information from multiple sources, and as a consequence, information in this document may materially change the coding, format and clinical context of patient data. In addition, data may be omitted in some cases. CLINICAL DECISIONS SHOULD BE BASED ON THE PRIMARY CLINICAL RECORDS. [employer] provides no warranty or guarantee of the accuracy or completeness of information in this document.
== END 2023-07-13 10:47 | disposition home or self-care (01) ==
PROVIDERS: Emergency Provider Student in an Organized Health Care Education/Training Program; PCP Student in an Organized Health Care Education/Training Program; Visit Provider Student in an Organized Health Care Education/Training Program
DX: J10.1 Influenza due to other identified influenza virus with other respiratory manifestations (principal); R11.2 Nausea with vomiting, unspecified; F32.A Depression, unspecified; Z79.899 Other long term (current) drug therapy
CPT/HCPCS: 71045; 87631; 99284

== ENCOUNTER 2023-07-16 16:28 | Inpatient (IN) | payer MEDICAID, SELFPAY ==
[2023-07-16] VITALS (7 sets, daily range): BP systolic 85–107; BP diastolic 62–83; PULSE 76–107; RESP 14–18; TEMP 36.5–37.5; O2SAT 98–100; BMI 16.2; BMI 16.0
--- NOTE | 2023-07-16 16:55 | ED.VIS.DYS ---
HPI History of Present Illness Chief Complaint: Cough PFSH PFSH Medical History Abnormal thyroid blood test Anemia Clavicle fracture Depression History of thyroid disorder Painful orthopaedic hardware Home Medications ascorbic acid (vitamin C) 500 mg tablet (Vitamin C) 500 mg PO BID supplement 07/13/23 [History Last Taken 07/10/23] benzonatate 100 mg capsule 100 mg PO TID PRN cough #30 caps 07/13/23 [Rx Last Taken Unknown] ferrous sulfate 142 mg (45 mg iron) tablet,extended release (Slow Release Iron) 142 mg PO BID iron deficiency 07/13/23 [History Last Taken 07/10/23] guaifenesin 1 tab PO Q6H PRN cold symptoms 07/13/23 [History Last Taken 07/12/23] ondansetron 4 mg disintegrating tablet 4 mg PO Q8H PRN PRN Nausea #20 tabs 07/13/23 [Rx Last Taken Unknown] sertraline 25 mg tablet 25 mg PO DAILY 07/13/23 [History Last Taken 07/10/23] Allergy/AdvReac Type Severity Reaction Status Date / Time amoxicillin [Amoxicillin] Allergy Hives Verified 07/16/23 16:29 cefixime [From Suprax] Allergy Hives Verified 07/16/23 16:29 lactulose Allergy Hives Verified 07/16/23 16:29 oxycodone HCl [From Percocet] AdvReac Abd Verified 07/16/23 16:29 cramps/diarrhea Surgical History Hx of tubal ligation Social History Smoking Status: Never smoker EXAM Physical Exam Const Vital Signs: 07/16/23 16:29 07/16/23 17:22 07/16/23 17:32 Temperature 99.5 F H 97.9 F Temperature Source Temporal Temporal Pulse Rate 88 89 Respiratory Rate 16 15 Respiratory Effort Short of Breath Respiratory Depth Normal Respiratory Pattern Normal Blood Pressure 85/62 L 101/70 Blood Pressure Mean 69 80 Pulse Ox 98 99 Oxygen Delivery Method Room Air Room Air Room Air 07/16/23 19:03 07/16/23 19:30 Temperature Temperature Source Pulse Rate 89 76 Respiratory Rate 16 14 Respiratory Effort Respiratory Depth Respiratory Pattern Blood Pressure 100/74 101/72 Blood Pressure Mean 82 81 Pulse Ox 99 100 Oxygen Delivery Method Room Air Room Air [facility] Narrative Medical decision making narrative: HISTORY OF PRESENT ILLNESS: 30-year-old female presents with cough, congestion. Recently diagnosed with influenza B. She states since then she has had increasing cough, chest pain with cough, shortness of breath with cough. Denies any chest pain or shortness of breath at rest. . The patient denies recent surgery in the last 4 weeks or immobilization in the last 3 days, denies previous diagnosis of DVT or PE, hemoptysis, unilateral leg swelling or malignancy with treatment the last 6 months or palliative. No estrogen use noted. Denies syncope. Endorses vomiting. Denies diarrhea. REVIEW OF SYSTEMS: Pertinent positives: Cough, congestion Pertinent negatives: Diarrhea, syncope, focal loss of sensation PHYSICAL EXAM: Nursing triage notes reviewed, Vital signs reviewed Constitutional: please see mdm HENT: MMM Eyes: Pupils equal round and reactive to light, Extraocular muscles intact Neck: No stridor, no JVD, full neck ROM Lungs: Clear to auscultation, No wheezing or rales. No increased work of breathing, no conversational dyspnea, no accessory muscle use, no nasal flaring. No respiratory distress noted Heart: Regular rate and rhythm, No murmurs, No rubs and No gallops, 2+ distal pulses (radial, femoral, posterior tibial) in all extremities Abdomen: Soft, there is no tenderness, rigidity, rebound or guarding, no obvious peritoneal signs, no palpable pulsatile abdominal masses, no auscultated abdominal bruit : No CVAT Extremities: No edema Neuro: No focal neurological deficits, cranial nerves II through XII intact, 5/5 strength in all extremities. Intact sensation to light touch in all extremities, 2+ reflexes bilateral patella tendons. Normal gait. No ataxia. Skin: No rash or lesions noted MEDICAL DECISION MAKING: Chief Complaint: Cough, congestion External records reviewed: Prior microbiological testing reviewed, she is influenza B positive on 07/13/2023. Imaging reviewed: Chest x-ray from 07/13/2023 shows no evidence of intracranial process Factors affecting care: Influenza B Consults: Cardiology, internal medicine [facility] Narrative: Patient was initially borderline febrile, had soft blood pressures although her baseline blood pressures in the 90 systolic, exam without focal cardiopulmonary abnormalities. I considered the following differential diagnosis: Dehydration, electrolyte disturbance, anemia, pneumonia I obtained a broad lab and imaging workup to further elucidate the etiology patient complaints. I treat the patient's pain fever and signs of dehydration with fluids, Toradol and Reglan. ALL IMAGES (IF OBTAINED) HAVE BEEN PERSONALLY REVIEWED AND INTERPRETED BY MYSELF. EKG with normal sinus rhythm, normal axis, normal levels, no STEMI Troponin elevated consistent with myocardial ischemia in the setting of recent viral URI could be medical service representative of pericarditis or myocarditis CBC with no leukocytosis, noted significantly worsening anemia from prior study 2021, noted thrombocytopenia with platelet count of 106 CMP with hypokalemia 2.8, no acute kidney injury, no hepatobiliary pathology noted Lipase is wnl indicating no pancreatic inflammation. Potassium replaced with oral potassium. The synthesis of the patient's history, physical exam, labs images suggest likely myocarditis secondary to influenza B. I discussed the case with hospitalist Dr. Amaya states patient be admitted for further cardiology evaluation. Spoke with the hospitalist Dr. Noonan who recommended PCU. The patient and/or family, caregivers express understanding. The patient and/or family, caregivers agrees with the plan. Shared decision making: I will have a discussion with the patient and or visitors regarding risk/benefits of further testing or admission. They will be made aware of of the risk/benefits inherent in this decision they will be given the opportunity to voice understanding. Total critical care time today provided was at least 0 minutes. This excludes separately billable procedures. Critical care time (if documented) is secondary to the patient having high probability of clinically significant/life threatening deterioration in the patient's condition which required my urgent intervention. Impression: 1. Myocarditis 2. Cough 3. Nausea vomiting 4. Dehydration 5. Influenza B Dispo: Admit This note was generated with [employer] dictation software. It may contain incorrect words, spelling, and punctuation that were not noted in review of the chart prior to signing. Lab Data Labs: Laboratory Results - last 24 hr 07/16/23 07/16/23 17:45 20:05 WBC 3.6 L RBC 3.66 L Hgb 8.3 L Hct 27.9 L MCV 76.2 L MCH 22.7 L MCHC 29.7 L RDW Std Deviation 47.5 H RDW Coeff of Vandana 16.9 H Plt Count 106 L MPV 10.2 Immature Gran % (Auto) 0.000 Neut % (Auto) 67.3 Lymph % (Auto) 25.1 [place] % (Auto) 7.3 Eos % (Auto) 0.0 Baso % (Auto) 0.3 Absolute Neuts (auto) 2.4 Absolute Lymphs (auto) 0.90 Nucleated RBC % 0 Sodium 142 Potassium 2.8 L Chloride 110 H Carbon Dioxide 29.0 Anion Gap 3 L BUN 9 Creatinine 0.61 Estim Creat Clear Calc 81.54 Est GFR (MDRD) Af Amer 144 Est GFR (MDRD) Non-Af 119 BUN/Creatinine Ratio 14.7 Glucose 96 Calcium 8.3 L Total Bilirubin 0.20 AST 30 ALT 24 Alkaline Phosphatase 51 Troponin I High Sens 62 H 62 H B-Natriuretic Peptide 17.7 Total Protein 6.5 Albumin 3.0 L Globulin 3.5 Albumin/Globulin Ratio 0.9 Lipase 50 Radiography Diagnostic Testing: Clinical Impression(s) from Imaging Studies Chest X-Ray 07/16/23 17:50 IMPRESSION: No acute findings in the chest. Electronically Signed: Hu Hills DO at 18:04 EST , Chest CTA 07/16/23 18:51 IMPRESSION: No acute findings in the visualized arteries of the chest. Electronically Signed: Hu Hills DO at 19:47 EST , Discharge Plan Dx/Rx/DC Orders Clinical Impression: Influenza B, Myocarditis Disposition Disposition: Acute Care [facility]
[2023-07-16] MEDS: Metoclopramide 10 MG/2 ML Vial 5 MG IV (17:40)
[2023-07-16] MEDS: 0.9% Normal Saline (1000mL) 1,000 ML 999 ML IV (17:40)
[2023-07-16] MEDS: Ketorolac 15 MG/ML Vial IV (17:40)
--- NOTE | 2023-07-16 17:50 | RAD_ITS ---
EXAM: XR CHEST, 2 VIEWS CLINICAL INDICATION: cough TECHNIQUE: Frontal and lateral views of the chest. COMPARISON: 07/13/2023 FINDINGS: LUNGS AND PLEURAL SPACES: No significant abnormality. No consolidation or edema. No pneumothorax. No effusion. HEART: No significant abnormality. Cardiac silhouette not enlarged. MEDIASTINUM: Central airways and mediastinal contour are unremarkable. BONES/JOINTS: Plate-screw fixation of the right clavicle. No acute fracture. SOFT TISSUES: No significant abnormality. RAD/Chest PA and Lateral IMPRESSION: No acute findings in the chest. Electronically Signed: Hu Hills DO at 18:04 EST ,
[2023-07-16 17:54] LABS: Absolute Neutrophil Count 2.4 X10^3/uL (2.0-7.7); Basophil# 0.01 X10^3/uL; Basophil% 0.3 % (0-1); Hematocrit 27.9 % (37-47); Hemoglobin 8.3 g/dL (12.0-15.0); Lymphocyte % 25.1 % (19-41); Mean Corp Hgb Conc 29.7 g/dL (32-36); Mean Corpuscular Hgb 22.7 pg (27.0-32.0); Mean Corpuscular Volume 76.2 fL (81-99); Mean Platelet Vol. 10.2 fl (6.2-12.0); Monocyte# 0.26 X10^3/uL; Monocyte% 7.3 % (0-10); NRBC Flagged by Analyzer 0 % (0-5); Neutrophil # 2.41 X10^3/uL (2.7-7.7); Neutrophil % 67.3 % (47-70); Platelet Count 106 K/mm3 (150-450); RBC Distribution Width CV 16.9 % (11.6-14.6); RBC Distribution Width SD 47.5 fl (35.1-43.9); Red Blood Count 3.66 M/mm3 (4.2-5.4); White Blood Count 3.6 K/mm3 (4.4-11.0)
--- OUTSIDE RECORDS SUMMARY | 2023-07-16 18:06 | XMS RPT_ITS | CCD ---
Author Name Unknown Address [address] [place] [id number] Organization [facility] Care Team Providers Care Gallery Host Name Role Phone Jamari Lima Unavailable Unavailable [...] / oxyCODONE; Translations: [Percocet 10/325] [facility] source) amoxicillin; Translations: [Amoxil] Drug Allergy [facility] Repository (1 source) cefixime; Translations: [Suprax] Drug Allergy [facility] Repository (12 sources) lactulose; Translations: [lactulose] Drug Allergy 2 [facility] Repository (11 sources) Acetaminophen / oxyCODONE; Translations: [OXYCODONE-ACETAM INOPHEN] Drug Allergy 2 Other: See Comments [facility] Work Phone: (11 sources) Amoxicillin; Translations: [AMOXICILLIN] Drug Allergy 2 [facility] Work Phone: (11 sources) Cefixime; Translations: [CEFIXIME] Drug Allergy 2 [facility] Work Phone: Medications Current Medications Medication Drug [...] oral solution (1 source) alpha-Adrenergic Agonist, Uncompetitive T-xnyjmi-Q-aspartat e Receptor Antagonist, Sigma-1 Agonist Start: 03-03-2023 [...] 10:58-0500 Body temperature 98.29 [degF] Sylvester Garay APRN.SENIOR ACCOUNT CLERK Work Phone: [facility] 05-06-2023 10:58-0500 Body weight 38.92 kg Sylvester Garay APRN.SENIOR ACCOUNT CLERK Work Phone: [facility] 05-06-2023 10:58-0500 Diastolic blood pressure 75 mm[Hg] Sylvester Garay APRN.SENIOR ACCOUNT CLERK Work Phone: [facility] 05-06-2023 10:58-0500 Heart rate 79 /min Sylvester Garay APRN.SENIOR ACCOUNT CLERK Work Phone: [facility] 05-06-2023 10:58-0500 Respiratory rate 20 /min Sylvester Garay APRN.SENIOR ACCOUNT CLERK Work Phone: [facility] 05-06-2023 10:58-0500 SaO2% (BldA) [Mass fraction] 100 % Sylvester Garay APRN.SENIOR ACCOUNT CLERK Work Phone: [facility] 05-06-2023 10:58-0500 Systolic blood pressure 109 mm[Hg] Sylvester Garay APRN.SENIOR ACCOUNT CLERK Work Phone: [facility] 05-01-2023 11:41-0500 Body weight 38.83 kg Magdalena Estrada ONLINE MARKETING ANALYST.SENIOR ACCOUNT CLERK Work Phone: [facility] 05-01-2023 11:41-0500 Diastolic blood pressure 60 mm[Hg] Magdalena Estrada ONLINE MARKETING ANALYST.SENIOR ACCOUNT CLERK Work Phone: [facility] 05-01-2023 11:41-0500 Heart rate 104 /min Magdalena Estrada ONLINE MARKETING ANALYST.SENIOR ACCOUNT CLERK Work Phone: [facility] 05-01-2023 11:41-0500 Respiratory rate 16 /min Magdalena Estrada ONLINE MARKETING ANALYST.SENIOR ACCOUNT CLERK Work Phone: [facility] 05-01-2023 11:41-0500 SaO2% (BldA) [Mass fraction] 96 % Magdalena Estrada ONLINE MARKETING ANALYST.SENIOR ACCOUNT CLERK Work Phone: [facility] 05-01-2023 11:41-0500 Systolic blood pressure 100 mm[Hg] Magdalena Estrada ONLINE MARKETING ANALYST.SENIOR ACCOUNT CLERK Work Phone: [facility] 03-03-2023 18:28-0400 Body temperature 98.1 [degF] Cris Athy PA-C Work Phone: [facility] 03-03-2023 18:28-0400 Body weight 39.28 kg Cris Athy PA-C Work Phone: [facility] 03-03-2023 18:28-0400 Diastolic blood pressure 76 mm[Hg] Cris Athy PA-C Work Phone: [facility] 03-03-2023 18:28-0400 Heart rate 68 /min Cris Athy PA-C Work Phone: [facility] 03-03-2023 18:28-0400 Respiratory rate 18 /min Cris Athy PA-C Work Phone: [facility] 03-03-2023 18:28-0400 SaO2% (BldA) [Mass fraction] 100 % Cris Athy PA-C Work Phone: [facility] 03-03-2023 18:28-0400 Systolic blood pressure 110 mm[Hg] Cris Rolle PA-C Work Phone: [facility] 03-28-2022 13:42-0400 Body temperature 97.7 [degF] Michelle Alize ONLINE MARKETING ANALYST.SENIOR ACCOUNT CLERK Work Phone: [facility] 03-28-2022 13:42-0400 Body weight 38.83 kg Michelle Alize ONLINE MARKETING ANALYST.SENIOR ACCOUNT CLERK Work Phone: [facility] 03-28-2022 13:42-0400 Diastolic blood pressure 64 mm[Hg] Michelle Alize ONLINE MARKETING ANALYST.SENIOR ACCOUNT CLERK Work Phone: [facility] 03-28-2022 13:42-0400 Heart rate 102 /min Michelle Alize ONLINE MARKETING ANALYST.SENIOR ACCOUNT CLERK Work Phone: [facility] 03-28-2022 13:42-0400 Respiratory rate 16 /min Michelle Alize ONLINE MARKETING ANALYST.SENIOR ACCOUNT CLERK Work Phone: [facility] 03-28-2022 13:42-0400 SaO2% (BldA) [Mass fraction] 98 % Michelle Alize ONLINE MARKETING ANALYST.SENIOR ACCOUNT CLERK Work Phone: [facility] 03-28-2022 13:42-0400 Systolic blood pressure 102 mm[Hg] Michelle Alize ONLINE MARKETING ANALYST.SENIOR ACCOUNT CLERK Work Phone: [facility] 09-06-2021 13:24-0400 Body height 157 cm Magdalena Zurawick ONLINE MARKETING ANALYST.SENIOR ACCOUNT CLERK Work Phone: [facility] 09-06-2021 13:24-0400 Body temperature 99.19 [degF] Magdalena Zurawick ONLINE MARKETING ANALYST.SENIOR ACCOUNT CLERK Work Phone: [facility] 09-06-2021 13:24-0400 Body weight 37.7 kg Magdalena Zurawick ONLINE MARKETING ANALYST.SENIOR ACCOUNT CLERK Work Phone: [facility] 09-06-2021 13:24-0400 Diastolic blood pressure 62 mm[Hg] Magdalena Zurawick ONLINE MARKETING ANALYST.SENIOR ACCOUNT CLERK Work Phone: [facility] 09-06-2021 13:24-0400 Heart rate 73 /min Magdalena Domínguez APRN.SENIOR ACCOUNT CLERK Work Phone: [facility] 09-06-2021 13:24-0400 SaO2% (BldA) [Mass fraction] 100 % Magdalena Domínguez APRN.SENIOR ACCOUNT CLERK Work Phone: [facility] 09-06-2021 13:24040 Systolic blood pressure 90 mm[Hg] Magdalena Domínguez ONLINE MARKETING ANALYST.SENIOR ACCOUNT CLERK Work Phone: [facility] Encounters Encounter Date Encounter Type Care Provider Facility Start: 05-28-2023 End: 05-29-2023 ambulatory [facility] Facility:[facility] Start: 05-06-2023 End: 05-06-2023 ambulatory [facility] Facility:[facility] Start: 05-06-2023 End: 05-06-2023 Patient encounter procedure Sylvester Garay ONLINE MARKETING ANALYST.SENIOR ACCOUNT CLERK Work Phone: [facility] Procedures Date Procedure Procedure Detail Performing Clinician Start: 05-01-2023 Urnls dip stick/tabl et rgnt auto w/o microscopy Magdalena Estrada ONLINE MARKETING ANALYST.SENIOR ACCOUNT CLERK Work Phone: Start: 05-01-2023 STREP A MOLECULAR (POC) Magdalena Estrada ONLINE MARKETING ANALYST.SENIOR ACCOUNT CLERK Work Phone: Start: 03-03-2023 STREP A MOLECULAR (POC) Cris Rolle PA-C Work Phone: Start: 03-14-2022 Radex shoulder compl ete minimum 2 views Tong Mederos MD Work Phone: Start: 09-06-2021 Urnls dip stick/tabl et rgnt auto w/o microscopy Magdalena Domínguez APRN.SENIOR ACCOUNT CLERK Work Phone: Start: 01-27-2021 Adult depression screening assessment Magdalena Domínguez APRN.SENIOR ACCOUNT CLERK Work Phone: Plan of Treatment Date Care Activity Detail Author Start: 11-27-2029 Urine microalbumin profile [facility] Start: 04-10-2024 Covid-19 Vaccine (#1) Covid-19 Vacci ne (#1) [facility] Immunizations Immunization Date Immunization Notes Care Provider Ivelisse galvan 11-28-2019 tetanus toxoid, redu binu diphtheria toxoid, and acellular pertussis vaccine, adsorbed Magdalena Zurawick ONLINE MARKETING ANALYST.SENIOR ACCOUNT CLERK Work Phone: [facility] 11-24-2017 tetanus toxoid, redu binu diphtheria toxoid, and acellular pertussis vaccine, adsorbed Magdalena Zurawick ONLINE MARKETING ANALYST.SENIOR ACCOUNT CLERK Work Phone: [facility] 03-22-2017 influenza virus vaccine, unspecified formulation Cris Rolle PA-C Work Phone: [facility] 12-29-2015 tetanus toxoid, redu binu diphtheria toxoid, and acellular pertussis vaccine, adsorbed Magdalena Zurawick ONLINE MARKETING ANALYST.SENIOR ACCOUNT CLERK Work Phone: [facility] Work Phone: 12-24-2013 tetanus toxoid, redu binu diphtheria toxoid, and acellular pertussis vaccine, adsorbed Magdalena Zurawick ONLINE MARKETING ANALYST.SENIOR ACCOUNT CLERK Work Phone: [facility] Payers Date Payer Category Payer Medicaid [id number] 2017 Unknown 2016 Medicaid [employer] [facility] MEDICAID [id number] 2016-Present [phone] [address] [place] [address] Medicaid [id number] 2016 Medicaid [id number] Social History Date Type Detail Facility Start: 09-29-2011 End: 03-28-2022 Tobacco smoking status NHIS Never smoked tobacco [facility] Work Phone: Start: 09-29-2011 End: 03-28-2022 Tobacco use and exposure Smokeless tobacco non-user [facility] Work Phone: Start: 09-06-2021 End: 05-06-2023 Alcohol intake Ex-drinker (finding) [facility] Start: 03-23-2020 History SDOH Alcohol Binge 2 [facility] Start: 03-23-2020 History SDOH Financial 4 [facility] Start: 03-23-2020 History SDOH Food Worry 1 [facility] Start: 07-01-2019 Education 13 [facility] Start: 1990 Sex Assigned At Not on file [facility] Start: 08-27-2021 End: 03-28-2022 Exposure to SARS-CoV-2 (event) Not sure [facility] Start: 03-23-2020 End: 04-10-2023 History of Social function [facility] Start: 03-23-2020 End: 04-10-2023 Alcohol Use Disorder Identification Test - Consumption [AUDIT-C] [facility] Frequency of Alcohol Consumption Not on file [facility] How often do you hav e 6 or more drinks on 1 occasion? Less than monthly [facility] How hard is it for y ou to pay for the very basics like food, housing, medical care, and heating Not very hard [facility] (I/We) worried whesuzie er (my/our) food would run out before (I/we) got money to buy more. Never true [facility] Clinical Notes 01-02-2020 to 05-29-2023 Sylvester Garay APRN.[facility] - 05/06/2023 11:26 AM Magdalena Cochran APRN.SENIOR ACCOUNT CLERK - 05/01/2023 11:20 AM ESTTelephone Encounter - Sherri Castanon LPN - 04/12/2023 3:51 PM EDTPatient Instructions Note Date & Type Note Facility 05-29-2023 Note HNO ID: [id number] Author: Divine Salazar Service: ? Author Type: ? Type: Progress Notes Filed: 05/29/2023 4:14 AM Note Text: Sleep Study Check-In Documentation Date: May 29, 2023 Name: Carola Harding Patient was accompanied by Self. Location: [place] Latex allergy: No Tape allergy: No Current medications were reviewed with the patient:Yes Sleep aid taken by patient for the sleep study: [place] of sleep aid: Not Applicable Procedure was [...] ordering provider regarding test results Divine Salazar [facility] 05-26-2023 Note HNO ID: [id number] Author: Oh Siddiqui MD Service: ? Author Type: Physician Type: Progress Notes Filed: 05/29/2023 4:14 AM Note Text: May 26, 2023 Standing PSG Orders signed in the last 90 days None Future PSG Orders signed in the last 90 days Ordered Auth. provider POLYSOMNOGRAM (PSG) [[id number]] 04/10/23 Magdalena Estrada APRN.SENIOR ACCOUNT CLERK Assoc. diagnoses: Fatigue, unspecified type [R53.83], Sleep [...] repeat Sleep Study?: A: No POLYSOMNOGRAM (PSG) [[id number]] 04/10/23 Magdalena Estrada APRN.SENIOR ACCOUNT CLERK Assoc. diagnoses: Fatigue, unspecified type [R53.83], Sleep [...] plan. Oh Siddiqui MD 3:01 PM, 05/26/2023 [facility] 05-22-2023 Note HNO ID: [id number] Author: Gonzalo Daigle Service: ? Author Type: ? Type: Progress Notes Filed: 05/29/2023 4:14 AM Note Text: May 22, 2023 An order has been received for Polysomnogram (PSG) from Magdalena Hernández APRN.devonte RUDD. [facility] Staff. Visit prep complete. Comments :No The sleep study is scheduled for 05/28. Insurance: Payor: [facility] MEDICAID / Plan: [facility] MEDICAID / Product Type: Medicaid / Payer/Plan Subscr Sex Relation Sub. Ins. ID Effective Group Num 1. [facility] CAROLA HARDING 1990 Female Self [id number] 07/13/22 [facility] [address] Gonzalo Lomaseczorek [facility] 05-06-2023 Note HNO ID: [id number] Author: Sylvester Garay APRN.BLAIRE Service: ? Author [...] PROPIONATE 50 MCG/ACTUATION NASAL SPRAY,SUSPENSION Sylvester Garay APRN.SENIOR ACCOUNT CLERK [facility] 05-06-2023 History of Presen t illness [...] PROPIONATE 50 MCG/ACTUATION NASAL SPRAY,SUSPENSION Sylvester Garay APRN.SENIOR ACCOUNT CLERK documented in this encounter [facility] 05-01-2023 Note HNO ID: [id number] Author: Magdalena Estrada APRN.BLAIRE Service: ? Author [...] sick with similar symptoms. Took them to vocational education teacher and was told this was likely viral [...] No Known Probl (more content not included)... [facility] 05-01-2023 History of Presen t illness [...] sick with similar symptoms. Took them to vocational education teacher and was told this was likely viral [...] agreeable to treatment plan. Magdalena Domínguez APRN.BLAIRE [address] [place] [address] documented in this encounter [facility] 04-12-2023 Miscellaneous Notes Pt. informed. Please [...] in 1 month. Thank you, Magdalena Estrada APRN.SENIOR ACCOUNT CLERK documented in this encounter [facility] 04-10-2023 Note HNO ID: [id number] Author: Magdalena Estrada APRN.CNP Service: ? Author [...] on 12/10/2023 Covid (more content not included)... [facility] 03-03-2023 Note HNO ID: [id number] Author: Cris Rolle PA-C Service: ? Author Type: Physician Sales Attendant Type: Progress Notes Filed: 03/03/2023 6:46 PM Note Text: This note was created using Achieve3000. Celine Harding is a 32 year old female. HPI Patient presents with a chief complaint of cough and congestion over the past week. She feels like she is not improving. She is tried some Mucinex fgej-frx-cqcqsja. Her son was sick with similar symptoms the week before. No fever. Cough is keeping her up at night. Is productive. No chest pain or shortness of breath. No vomiting or diarrhea. No ear pain. She is also had a persistent sore throat. She tried some allergy medication xlyv-vyh-fzdvlwu which did not seem to help either. [...] daily for 7 days. 6636 mL 12 Xpvxaatuhtynbcf-Kuitcpxar-LQ (BROMFED DM) 2-30-10 mg/5 mL syrup Take [...] STREP A MOLECULAR (POC) Cris Rolle PA-C [facility] 03-03-2023 History of Presen t illness Narrative This note was created using [employer] Risk Management[employer]. Celine Harding is a 32 year old female. HPI Patient presents with a chief complaint of cough and congestion over the past week. She feels like she is not improving. She is tried some Mucinex qcxu-apz-xdlfxlf. Her son was sick with similar symptoms the week before. No fever. Cough is keeping her up at night. Is productive. No chest pain or shortness of breath. No vomiting or diarrhea. No ear pain. She is also had a persistent sore throat. She tried some allergy medication uigx-vvr-udwompb which did not seem to help either. [...] daily for 7 days. 6636 mL 12 Uvecmdzajnpvhcb-Luypnabpy-EK (BROMFED DM) 2-30-10 mg/5 mL syrup Take [...] Cris Rolle PA-C documented in this encounter [facility] 03-28-2022 Instructions Michelle Herrmann APRN.BLAIRE - [...] inability to swallow. documented in this encounter [facility] 03-28-2022 History of Presen t illness Narrative Subjective The history is provided by the patient. No english as a second language teacher was used. LIVAN Harding is a 31 [...] have confirmed and edited as necessary, the [facility] Review of Systems Constitutional: Negative for [...] Michelle Herrmann APRN.BLAIRE documented in this encounter [facility] 03-14-2022 History of Presen t illness Narrative Tong OcampoM.Sc. Flatbed Truck Driver of Orthopaedic Surgery at [place] [address] Office: [phone] Consult requested for an opinion regarding the evaluation and treatment of the above patient. My final impression and recommendations will be communicated back to the requesting physician by way of the shared medical record or letter via US mail. Patient info: Carola Harding ([id number]) Service date: 03/14/2022 Referred by: SELF PCP: [...] Shoulder and Elbow Surgeon Orthopaedic Surgery Department [place], [place] [address] Tell: [phone] Appt:[phone] 03/14/2022 3:51 PM CC:Self documented in this encounter [facility] 09-10-2021 Miscellaneous Notes Patient notified of [...] Magdalena Domínguez APRN.BLAIRE documented in this encounter [facility] 09-06-2021 Instructions Magdalena Domínguez APRN.CNP - 09/06/2021 1:56 PM EDT Get Blood work and schedule US of abdomen. Schedule with cat dog or other pet groomer COVID and flu testing in office. documented in this encounter [facility] 09-06-2021 Nurse Note Pt states low abdominal pressure for past few days. Dark concintrated urine. documented in this encounter [facility] 09-06-2021 History of Presen t illness [...] ultrasound - Increase fiber in diet - [place] low residue diet - UA DIP, URINE [...] Patient agreeable to treatment plan. Magdalena Domínguez APRN.SENIOR ACCOUNT CLERK [address] [place] [address] documented in this encounter [facility] documented as of this encounter (statuses as of 09/06/2021) [facility] History of Past illness Narrative* Problem [...] age 16, and treated by a at [place]. 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 Patient took herself off of levothyroxine at [...] pain 03/19/201211/12 Overview: 03/19/2012Faby was seen at [facility] on March 06 for left flank pain. An ultrasound was done that revealed an intrauterine at 11 weeks 2 days. Urinalysis was negative. Patient denies any pain since then. [facility] ER report was faxed here and sent to Dr. Meeta Dhaliwal's office for review. 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 Patient states she was seen in [facility] 2 weeks ago for spotting during . She denies any bleeding since then. She denies any pain or cramping. She states she had an ultrasound done at [facility] that showed an intrauterine with an estimated due date of April 21. Patient signed a release of records form to obtain her records from her emergency room visit. Miscarriage precautions discussed. Depression 09/29/2011 05/18/2017 Overview: 07/02/2013 Pt has a history of depression diagnosed at age 16, and treated by a DrJoann at [place]. She was treated for depression by Dr. [...] of this encounter (statuses as of 09/10/2021) [facility] History of Past illness Narrative* Problem [...] age 16, and treated by a at [place]. She has been treated for depression after [...] of a thyroid disorder treated by Dr. Wihte, an highway maintainer in [place]. Patient took herself off of levothyroxine at [...] pain 03/19/201211/12 Overview: 03/19/2012Faby was seen at [facility] on March 06 for left flank pain. An ultrasound was done that revealed an intrauterine at 11 weeks 2 days. Urinalysis was negative. Patient denies any pain since then. [facility] ER report was faxed here and sent to Dr. Meeta Dhaliwal's office for review. 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 Patient states she was seen in [facility] 2 weeks ago for spotting during . She denies any bleeding since then. She denies any pain or cramping. She states she had an ultrasound done at [facility] that showed an intrauterine with an estimated due date of April 21. Patient signed a release of records form to obtain her records from her emergency room visit. Miscarriage precautions discussed. Depression 09/29/2011 05/18/2017 Overview: 07/02/2013 Pt has a history of depression diagnosed at age 16, and treated by a DrJoann at [place]. She was treated for depression by Dr. [...] of this encounter (statuses as of 03/15/2022) [facility] History of Past illness Narrative* Problem [...] age 16, and treated by a at [place]. 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 Patient took herself off of levothyroxine at [...] pain 03/19/201211/12 Overview: 03/19/2012Faby was seen at [facility] on March 06 for left flank pain. An ultrasound was done that revealed an intrauterine at 11 weeks 2 days. Urinalysis was negative. Patient denies any pain since then. [facility] ER report was faxed here and sent to Dr. Meeta Dhaliwal's office for review. 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 Patient states she was seen in [facility] 2 weeks ago for spotting during . She denies any bleeding since then. She denies any pain or cramping. She states she had an ultrasound done at [facility] that showed an intrauterine with an estimated due date of April 21. Patient signed a release of records form to obtain her records from her emergency room visit. Miscarriage precautions discussed. Depression 09/29/2011 05/18/2017 Overview: 07/02/2013 Pt has a history of depression diagnosed at age 16, and treated by a at [place]. She was treated for depression by Dr. [...] of this encounter (statuses as of 03/15/2022) [facility] History of Past illness Narrative* Problem [...] age 16, and treated by a at [place]. 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 Patient took herself off of levothyroxine at [...] pain 03/19/201211/12 Overview: 03/19/2012Faby was seen at [facility] on March 06 for left flank pain. An ultrasound was done that revealed an intrauterine at 11 weeks 2 days. Urinalysis was negative. Patient denies any pain since then. [facility] ER report was faxed here and sent to Dr. Meeta Dhailwal's office for review. 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 Patient states she was seen in [facility] 2 weeks ago for spotting during . She denies any bleeding since then. She denies any pain or cramping. She states she had an ultrasound done at [facility] that showed an intrauterine with an estimated due date of April 21. Patient signed a release of records form to obtain her records from her emergency room visit. Miscarriage precautions discussed. Depression 09/29/2011 05/18/2017 Overview: 07/02/2013 Pt has a history of depression diagnosed at age 16, and treated by a DrJoann at [place]. She was treated for depression by Dr. [...] of this encounter (statuses as of 03/28/2022) [facility] History of Past illness Narrative* Problem [...] title 19 papers signed today - Jens Knedrick MD 08/27/19 - needs to sign title [...] age 16, and treated by a at [place]. 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 Patient took herself off of levothyroxine at [...] 0 11/12/2012 Overview: 03/19/2012Faby was seen at [facility] on March 06 for left flank pain. An ultrasound was done that revealed an intrauterine at 11 weeks 2 days. Urinalysis was negative. Patient denies any pain since then. [facility] ER report was faxed here and sent to Dr. Meeta Dhaliwal's office for review. 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 Patient states she was seen in [facility] 2 weeks ago for spotting during . She denies any bleeding since then. She denies any pain or cramping. She states she had an ultrasound done at [facility] that showed an intrauterine with an estimated due date of April 21. Patient signed a release of records form to obtain her records from her emergency room visit. Miscarriage precautions discussed. Depression 09/29/2011 05/18/2017 Overview: 07/02/2013 Pt has a history of depression diagnosed at age 16, and treated by a DrJoann at [place]. She was treated for depression by Dr. [...] of this encounter (statuses as of 03/04/2023) [facility] History of Past illness Narrative* Problem [...] age 16, and treated by a at [place]. 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 Patient took herself off of levothyroxine at [...] 0 11/12/2012 Overview: 03/19/2012She was seen at [facility] on March 06 for left flank pain. An ultrasound was done that revealed an intrauterine at 11 weeks 2 days. Urinalysis was negative. Patient denies any pain since then. [facility] ER report was faxed here and sent to Dr. Meeta Dhaliwal's office for review. 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 Patient states she was seen in [facility] 2 weeks ago for spotting during . She denies any bleeding since then. She denies any pain or cramping. She states she had an ultrasound done at [facility] that showed an intrauterine with an estimated due date of April 21. Patient signed a release of records form to obtain her records from her emergency room visit. Miscarriage precautions discussed. Depression 09/29/2011 05/18/2017 Overview: 07/02/2013 Pt has a history of depression diagnosed at age 16, and treated by a DrJoann at [place]. She was treated for depression by Dr. [...] of this encounter (statuses as of 04/13/2023) [facility] History of Past illness Narrative* Problem [...] age 16, and treated by a at [place]. 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 Patient took herself off of levothyroxine at [...] 0 11/12/2012 Overview: 03/19/2012Faby was seen at [facility] on March 06 for left flank pain. An ultrasound was done that revealed an intrauterine at 11 weeks 2 days. Urinalysis was negative. Patient denies any pain since then. [facility] ER report was faxed here and sent to Dr. Meeta Dhaliwal's office for review. 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 Patient states she was seen in [facility] 2 weeks ago for spotting during . She denies any bleeding since then. She denies any pain or cramping. She states she had an ultrasound done at [facility] that showed an intrauterine with an estimated due date of April 21. Patient signed a release of records form to obtain her records from her emergency room visit. Miscarriage precautions discussed. Depression 09/29/2011 05/18/2017 Overview: 07/02/2013 Pt has a history of depression diagnosed at age 16, and treated by a DrJoann at [place]. She was treated for depression by Dr. [...] of this encounter (statuses as of 05/01/2023) [facility] History of Past illness Narrative* Problem [...] age 16, and treated by a at [place]. 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 Patient took herself off of levothyroxine at [...] 0 11/12/2012 Overview: 03/19/2012Faby was seen at [facility] on March 06 for left flank pain. An ultrasound was done that revealed an intrauterine at 11 weeks 2 days. Urinalysis was negative. Patient denies any pain since then. [facility] ER report was faxed here and sent to Dr. Meeta Dhaliwal's office for review. 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 Patient states she was seen in [facility] 2 weeks ago for spotting during . She denies any bleeding since then. She denies any pain or cramping. She states she had an ultrasound done at [facility] that showed an intrauterine with an estimated due date of April 21. Patient signed a release of records form to obtain her records from her emergency room visit. Miscarriage precautions discussed. Depression 09/29/2011 05/18/2017 Overview: 07/02/2013 Pt has a history of depression diagnosed at age 16, and treated by a at [place]. She was treated for depression by Dr. [...] of this encounter (statuses as of 05/06/2023) [facility] Diagnosis Generalized abdominal pain- Primary Abdominal pain, generalized Cough Underweight documented in this encounter [facility]* Diagnosis Generalized abdominal pain- Primary Abdominal pain, generalized [facility]* Diagnosis Closed displaced fracture of shaft of right clavicle with routine healing, subsequent encounter- Primary 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* Diagnosis Acute non-recurrent pansinusitis- Primary [facility]* Diagnosis Sinobronchitis- Primary Unspecified sinusitis (chronic) documented [facility] this encounter [facility]* Diagnosis Iron deficiency anemia, unspecified iron deficiency anemia type- Primary documented in this encounter [facility]* Diagnosis Iron deficiency anemia, unspecified iron deficiency anemia type- Primary Vaginal discharge Leukorrhea, not specified as infective Menstrual period late Other disorder of menstruation and other abnormal bleeding from female genital tract Acute cough Anxiety with depression Fatigue, unspecified type documented in this encounter [facility]* Diagnosis Bacterial sinusitis- Primary Unspecified sinusitis (chronic) documented in this encounter [facility] for referral (narrative)* Diagnostic Procedure Only (Routine) - Authorized Specialty Diagnoses / Procedures Referred By Prince t Referred To Contact US IMAGING Diagnoses Generalized abdominal pain Procedures US ABD RT UPPER QUADRANT US ABDOMINAL REAL TIME W/IMAGE LIMITED Magdalena Domínguez APRN.SENIOR ACCOUNT CLERK [address] [place] [address] Us Imaging Referral ID Status Reason Start Date Expiration Date Visits Requested Visits Authorized [id number] Authorized Auto-Generat ed Referral 09/06/2021 10/06/2022 1 1 * Consult, Test, Treat (Routine) - Authorized Specialty Diagnoses / Procedures Referred By Contac t Referred To Contact Nutrition Diagnoses Underweight Procedures CONSULT TO NUTRITION THERAPY OFFICE/OUTPATIENT [facility] MDM 60-74 MINUTES Magdalena Domínguez APRN.SENIOR ACCOUNT CLERK [address] [place] [address] Referral ID Status Reason Start Date Expiration Date Visits Requested Visits Authorized [id number] Authorized PCP Requested Referral 09/06/2021 09/06/2022 1 1 [facility] for referral (narrative)* Diagnostic Procedure Only (Routine) - Closed Specialty Diagnoses / Procedures Referred By Contac t Referred To Contact XR IMAGING Diagnoses Closed displaced fracture of shaft of right clavicle with routine healing, subsequent encounter Procedures XR SHOULDER GENERAL 3V OR MORE AP/TRUE AP/OTHER RIGHT RADEX SHOULDER COMPLETE MINIMUM 2 VIEWS Tong Mederos MD [address] [facility] [place] [address] Xr Imaging Referral ID Status Reason Start Date Expiration Date V isits Requested Visits Authorized [id number] Closed Auto-Generate d Referral 03/14/2022 04/13/2023 1 1 [facility] for visit Narrative* Diagnostic Procedure Only (Routine) - Closed Specialty Diagnoses / Procedures Referred By Contac t Referred To Contact XR IMAGING Diagnoses Closed displaced fracture of shaft of right clavicle with routine healing, subsequent encounter Procedures XR SHOULDER GENERAL 3V OR MORE AP/TRUE AP/OTHER RIGHT RADEX SHOULDER COMPLETE MINIMUM 2 VIEWS Tong Mederos MD [address] [facility] [place] [address] Xr Imaging Referral ID Status Reason Start Date Expiration Date V isits Requested Visits Authorized [id number] Closed Auto-Generate d Referral 03/14/2022 04/13/2023 1 1 [facility] Summary Purpose Family History No Family [...] COMPLEX 45 MINS Tong Mederos MD [address] [facility] [place] [address] [facility] [address] [place], [place] [id number] [place] [id number] Referral ID Status Reason Start Date Expiration Date Visits Requested Visits Authorized [id number] Pending Review Auto-Generat ed Referral 03/14/2022 03/14/2023 1 1 Specialty Diagnoses / Procedures Referred By Prince dupont Referred To Contact XR IMAGING Diagnoses Closed displaced fracture of shaft of right clavicle with routine healing, subsequent encounter Procedures XR SHOULDER GENERAL 3V OR MORE AP/TRUE AP/OTHER RIGHT RADEX SHOULDER COMPLETE MINIMUM 2 VIEWS Tong Mederos MD [address] [place] [address] Xr Imaging Referral ID Status Reason Start Date Expiration Date V isits Requested Visits Authorized [id number] Closed Auto-Generate d Referral 03/14/2022 04/13/2023 1 1 Additional Source Comments INFORMATION SOURCE (unrecogn ized section and content) DATE CREATED AUTHOR AUTHOR'S ORGANIZ ATION 12/08/2018 [facility] DATE CREATED AUTHOR AUTHOR'S ORGANIZ ATION 05/29/2023 [facility] DATE CREATED AUTHOR AUTHOR'S ORGANIZ ATION 06/01/2023 [facility] Source Comments (unrecognize d section and content) In the event this informatio n is protected by the Federal Confidentiality of Alcohol and Drug Abuse Patient Records regulations: The Federal rules restrict any use of the information to criminally investigate or prosecute any alcohol or drug abuse patient.[facility] the event this information is protected by the Federal Confidentiality of Alcohol and Drug Abuse Patient Records regulations: The Federal rules restrict any use of the information to criminally investigate or prosecute any alcohol or drug abuse patient.[facility] the event this information is protected by the Federal Confidentiality of Alcohol and Drug Abuse Patient Records regulations: The Federal rules restrict any use of the information to criminally investigate or prosecute any alcohol or drug abuse patient.[facility] Center[facility] the event this information is protected by the Federal Confidentiality of Alcohol and Drug Abuse Patient Records regulations: The Federal rules restrict any use of the information to criminally investigate or prosecute any alcohol or drug abuse patient.[facility] Center[facility] the event this information is protected by the Federal Confidentiality of Alcohol and Drug Abuse Patient Records regulations: The Federal rules restrict any use of the information to criminally investigate or prosecute any alcohol or drug abuse patient.[facility] Center[facility] the event this information is protected by the Federal Confidentiality of Alcohol and Drug Abuse Patient Records regulations: The Federal rules restrict any use of the information to criminally investigate or prosecute any alcohol or drug abuse patient.[facility] Center[facility] the event this information is protected by the Federal Confidentiality of Alcohol and Drug Abuse Patient Records regulations: The Federal rules restrict any use of the information to criminally investigate or prosecute any alcohol or drug abuse patient.[facility] Center[facility] the event this information is protected by the Federal Confidentiality of Alcohol and Drug Abuse Patient Records regulations: The Federal rules restrict any use of the information to criminally investigate or prosecute any alcohol or drug abuse patient.[facility] CenterIn the event this information is protected by the Federal Confidentiality of Alcohol and Drug Abuse Patient Records regulations: The Federal rules restrict any use of the information to criminally investigate or prosecute any alcohol or drug abuse patient.[facility] Reason for Visit (unrecogniz ed section [...] Care Teams (unrecognized sec tion and content) Gallery Host Relationship Specialty Start Date End Date Jamari Lima DO [address] [place] [address] PCP - General Family Practice 05/05/18 Gallery Host Relationship Specialty Start Date End Date Jamari Lima DO [address] [place] [address] PCP - General Family Medicine 05/05/18 Gallery Host Relationship Specialty Start Date End Date Jamari Lima DO [address] [facility] [address] PCP - General Family Medicine 05/05/18 Gallery Host Relationship Specialty Start Date End Date Jamari Lima DO [address] [place] [address] PCP - General Family Medicine 05/05/18 Gallery Host Relationship Specialty Start Date End Date Jamari Lima DO [address] [place] [address] PCP - General Family Medicine 05/05/18 Gallery Host Relationship Specialty Start Date End Date Jamari Lima DO [address] [place] [address] PCP - General Family Medicine 05/05/18 Gallery Host Relationship Specialty Start Date End Date Jamari LimaDO [address] [place] [address] PCP - General Family Medicine 05/05/18 Gallery Host Relationship Specialty Start Date End Date LimaJamari luis Khushi, DO [address] [place] [address] PCP - General Family Medicine 05/05/18 FOR [...] BE BASED ON THE PRIMARY CLINICAL RECORDS. [employer] provides no warranty or guarantee of the accuracy or completeness of information in this document.
[2023-07-16 18:11] LABS: ALB/GLOB Ratio 0.9 RATIO (0.9-2.4); AST(SGOT) 30 U/L (15-37); Alanine Aminotransfer ALT/SGPT 24 U/L (13-56); Alkaline Phosphatase 51 U/L (45-117); Anion Gap 3 (5-15); BUN 9 mg/dL (7-18); BUN/Creat Ratio 14.7 RATIO (10-20); Calcium,Total 8.3 mg/dL (8.5-10.1); Chloride 110 mmol/L (98-107); Creatinine, Serum 0.61 mg/dL (0.55-1.02); EST Glomerular Filtration Rate 119 mL/min (>60); Est Glom Filt Rate - Afr Amer 144 mL/min (>60); Estimated Creatinine Clearance 81.54 ml/min; Globulin 3.5 g/dL (2.2-4.2); Glucose 96 mg/dL (74-106); Lipase 50 U/L (13-75); Potassium 2.8 mmol/L (3.5-5.1); Protein, Total 6.5 g/dL (6.4-8.2); Sodium Level 142 mmol/L (136-145); Troponin-I HS 62 pg/mL (3.0-54.0)
--- NOTE | 2023-07-16 18:51 | CT_ITS ---
EXAM: CT ANGIOGRAPHY CHEST WITHOUT AND WITH INTRAVENOUS CONTRAST CLINICAL INDICATION: chest pain r/o PE TECHNIQUE: Helically acquired angiography images were obtained of the chest without and with intravenous contrast. This CT exam was performed using one or more of the following dose reduction techniques: automated exposure control, adjustment of the mA and/or kV according to patient size, and/or use of iterative reconstruction technique. MIP reconstructed images were created and reviewed. CONTRAST: IV 75mL [id number] COMPARISON: Chest radiograph on the same date. FINDINGS: LIMITATIONS: Examination is minimally limited due to motion related artifacts. PULMONARY ARTERIES: No significant abnormality. Normal in caliber. No evidence of pulmonary embolism. AORTA: No significant abnormality. Normal in caliber. No evidence of dissection. GREAT VESSELS OF AORTIC ARCH: No significant abnormality. Normal in caliber. No evidence of dissection. LUNGS AND PLEURAL SPACES: No significant abnormality. No mass. No consolidation or edema. No pleural effusion or thickening. No pneumothorax. HEART: No significant abnormality. Heart size is normal. No pericardial effusion. No significant coronary artery calcifications. MEDIASTINUM: No significant abnormality. No mediastinal or hilar adenopathy. Esophagus is unremarkable. No hiatal hernia. THYROID: No significant abnormality. No thyroid lesions. BONES/JOINTS: No significant abnormality. No suspicious lytic or blastic abnormality. CT/CTA Chest W/WO Contrast IMPRESSION: No acute findings in the visualized arteries of the chest. Electronically Signed: Hu Hills DO at 19:47 EST ,
[2023-07-16] MEDS: Potassium Chloride Oral Tablet 20 MEQ 40 MEQ PO (18:57)
[2023-07-16] MEDS: Aspirin 325 MG Tablet PO (18:57)
[2023-07-16 19:48] LABS: BNP,B-Type NATRIURETIC PEPTIDE 17.7 pg/mL (0-100)
[2023-07-16 21:23] LABS: Troponin-I HS 62 pg/mL (3.0-54.0)
--- NOTE | 2023-07-16 21:49 | HP.PCM.HOS_ITS ---
HPI - General General Date of Admission: 07/16/23 Date of Service: 07/16/23 Chief Complaint: Chest Pain and Cough. HPI Ludmila HARDING, is a 32 F with a past medical history of history of thyroid disease, chronic anemia (first noted in 2021), history of Right clavicular fracture, depression and recently diagnosed influenza B on July 13, 2023 who presents to [facility] ER complaining of chest pain and cough. Ms. Harding reports her symptoms began approximately 3 days prior to admission with a gradual onset of increasing nonproductive cough and shortness of breath. She denies chest pain being made worse with reclining or pain being made better with leaning forward but she does admit to intermittent pleuritic chest pain that seems to be made worse by her cough and vomiting with bilious emesis but she denies history of coronary artery disease, history of venous thromboembolism, syncope, diarrhea, constipation, hemoptysis, unilateral leg swelling, history of malignancy, or history of hormone replacement therapy. She also denies having taken previous modified messenger RNA vaccine for COVID-19. In the ER she was noted to have an elevated initial troponin of 62 pg/mL causing the ER physician to become suspicious for possible viral myocarditis in the setting of recently diagnosed influenza B complicated by severe hypokalemia of 2.8 mmol/L present on admission with leukopenia of 3.6 present on admission, anemia with hemoglobin of 8.3 g/dL present on admission and thrombocytopenia with platelet count of 106 present on admission and she was then admitted to the PCU for ongoing care for stay that is expected to be greater than 48 hours. [facility] Medical History Abnormal thyroid blood test Anemia Clavicle fracture Depression History of thyroid disorder Hyperthyroidism Painful orthopaedic hardware Home Medications ascorbic acid (vitamin C) 500 mg tablet (Vitamin C) 500 mg PO BID supplement 07/13/23 [History Last Taken 07/10/23] benzonatate 100 mg capsule 100 mg PO TID PRN cough #30 caps 07/13/23 [Rx Last Taken Unknown] ferrous sulfate 142 mg (45 mg iron) tablet,extended release (Slow Release Iron) 142 mg PO BID iron deficiency 07/13/23 [History Last Taken 07/10/23] guaifenesin 1 tab PO Q6H PRN cold symptoms 07/13/23 [History Last Taken 07/12/23] ondansetron 4 mg disintegrating tablet 4 mg PO Q8H PRN PRN Nausea #20 tabs 07/13/23 [Rx Last Taken Unknown] sertraline 25 mg tablet 25 mg PO DAILY 07/13/23 [History Last Taken 07/10/23] Allergy/AdvReac Type Severity Reaction Status Date / Time amoxicillin [Amoxicillin] Allergy Hives Verified 07/16/23 16:29 cefixime [From Suprax] Allergy Hives Verified 07/16/23 16:29 lactulose Allergy Hives Verified 07/16/23 16:29 oxycodone HCl [From Percocet] AdvReac Abd Verified 07/16/23 16:29 cramps/diarrhea Surgical History Hx of tubal ligation Social History Smoking Status: Never smoker ROS ROS Narrative Review of systems: General: Patient denies fevers or chills. HENT: Denies headache, denies stuffy nose, denies sore throat EYES: Denies changes in vision Resp: Patient admits to cough and shortness of breath and chest congestion. Cardiac: Denies chest pain or palpitations. GI: Denies abdominal pain, denies changes in bowel, Denies nausea vomiting. : Denies changes in urination Extremity: Denies swelling Musculoskeletal: Feels somewhat generally weak and unwell Neuro: Denies any numbness/tingling Heme: Denies any bleeding or bruising Skin: Denies rashes Psychiatric: No complaints voiced related to uncontrolled depression or anxiety. Endocrine: No polyuria, polydipsia or polyphagia. The rest of the 14 point ROS was negative except for positives in HPI. Vital Signs Vital Signs Vital Signs: 07/16/23 16:29 07/16/23 17:22 07/16/23 17:32 Temperature 99.5 F H 97.9 F Temperature Source Temporal Temporal Pulse Rate 88 89 Respiratory Rate 16 15 Respiratory Effort Short of Breath Respiratory Depth Normal Respiratory Pattern Normal Blood Pressure 85/62 L 101/70 Blood Pressure Mean 69 80 Pulse Ox 98 99 Oxygen Delivery Method Room Air Room Air Room Air 07/16/23 19:03 07/16/23 19:30 Temperature Temperature Source Pulse Rate 89 76 Respiratory Rate 16 14 Respiratory Effort Respiratory Depth Respiratory Pattern Blood Pressure 100/74 101/72 Blood Pressure Mean 82 81 Pulse Ox 99 100 Oxygen Delivery Method Room Air Room Air Weight Weight: 86 lb Body Mass Index (BMI) 16.2 Physical Exam Const alert, oriented x3 and no apparent distress Constitutional Narrative: Patient is extremely thin and appears cachectic with poor dentition. HEENT normocephalic, head/scalp atraumatic, hearing grossly normal bilaterally and moist oral mucous membranes HEENT Narrative: Poor dentition noted. Eyes PERRL, EOMs intact bilaterally and conjunctivae normal Neck no lymphadenopathy and supple Resp normal respiratory effort, no retractions, no use of accessory muscles and clear to auscultation bilaterally Cardio regular rate and regular rhythm GI normal to inspection, nondistended, normoactive bowel sounds, soft to palpation, non-tender and non-distended Extremity normal to inspection and full ROM Extremity Narrative: Patient is a very nice set of manicured nails. Skin Skin Narrative: Patient has no evidence of abscess or rash. Neuro oriented x3, CN's II-XII intact bilaterally, moves all extremities and no focal motor deficits Sensorium / Orientation: awake, alert, oriented to person, oriented to place and oriented to time Speech: speech normal Motor Exam: strength 5/5 throughout Psych affect normal Results Medical Records Data Attestation: I reviewed the patient's medical records Lab / Micro Data Attestation: I reviewed the patient's lab results. 07/16/23 17:45 07/16/23 17:45 Labs: Laboratory Results - last 24 hr 07/16/23 17:45: WBC 3.6 L, RBC 3.66 L, Hgb 8.3 L, Hct 27.9 L, MCV 76.2 L, MCH 22.7 L, MCHC 29.7 L, RDW Std Deviation 47.5 H, RDW Coeff of Vandana 16.9 H, Plt Count 106 L, MPV 10.2, Immature Gran % (Auto) 0.000, Neut % (Auto) 67.3, Lymph % (Auto) 25.1, [place] % (Auto) 7.3, Eos % (Auto) 0.0, Baso % (Auto) 0.3, Absolute Neuts (auto) 2.4, Absolute Lymphs (auto) 0.90, Nucleated RBC % 0, Sodium 142, Potassium 2.8 L, Chloride 110 H, Carbon Dioxide 29.0, Anion Gap 3 L, BUN 9, Creatinine 0.61, Estim Creat Clear Calc 81.54, Est GFR (MDRD) Af Amer 144, Est GFR (MDRD) Non-Af 119, BUN/Creatinine Ratio 14.7, Glucose 96, Calcium 8.3 L, Total Bilirubin 0.20, AST 30, ALT 24, Alkaline Phosphatase 51, Troponin I High Sens 62 H, B-Natriuretic Peptide 17.7, Total Protein 6.5, Albumin 3.0 L, Globulin 3.5, Albumin/Globulin Ratio 0.9, Lipase 50 07/16/23 20:05: Troponin I High Sens 62 H Imaging Radiology Impression Chest X-Ray 07/16/23 17:50 IMPRESSION: No acute findings in the chest. Electronically Signed: Hu GarcíaJoann Hills DO at 18:04 EST , Chest CTA 07/16/23 18:51 IMPRESSION: No acute findings in the visualized arteries of the chest. Electronically Signed: Hu GarcíaJoann Hills DO at 19:47 EST , Assessment & Plan Assessment/Plan (1) Myocarditis: QUALIFIERS: Chronicity: acute Infective myocarditis organism: viral Myocarditis type: infective Qualified Code(s): I40.0 - Infective myocarditis (2) Influenza B: (3) Elevated troponin: (4) Hypokalemia: PLAN: Plan 1. Elevated initial troponin of 62 pg/mL causing the ER physician to become suspicious for suspected viral myocarditis in the setting of recently diagnosed influenza B - Admit to PCU under droplet and contact isolation. Treat supportively with vitamin D3, vitamin C and zinc. Give Tylenol as needed pain or fever. Check echocardiogram to evaluate left ventricular ejection fraction and consider cardiac MRI to confirm suspicion of viral myocarditis. Finally, the ER physician spoke to Dr. Kwon of [facility] who will be consulted to see this patient formally in the a.m. with help appreciated in advance. 2. Severe hypokalemia of 2.8 mmol/L present on admission complicating #1 - Give supplemental potassium chloride and recheck BMP in the a.m. to ensure imp rovement. 3. Leukopenia of 3.6 present on admission, anemia with hemoglobin of 8.3 g/dL present on admission and thrombocytopenia with platelet count of 106 present on admission compounding #1 & #2 in the setting of known chronic anemia - Serialize CBC daily to follow trend. Check HIV screening test. Also check iron studies, B12 and folate to evaluate for other potential causes of anemia. 4. History of thyroid disease - Check TSH this admission. 5. Depression and Anxiety - Continue Sertraline and consider Xanax prn for breakthrough symptoms. 6. History of Right clavicular fracture - Noted. 7. DVT prophylaxis - Patient on full-dose Lovenox for #1. Total time: Approximately 55 minutes. Charges/Coding Visit Charges Inpatient E&M: 96477 Init Hosp L2
--- OUTSIDE RECORDS SUMMARY | 2023-07-16 22:08 | XMS RPT_ITS | CCD ---
Author Name Unknown Address [address] [place] [id number] Organization [facility] Care Team Providers Care Umbrella Mender Name Role Phone Jamari Lima Unavailable Unavailable [...] / oxyCODONE; Translations: [Percocet 10/325] [facility] amoxicillin; Translations: [Amoxil] Drug Allergy [facility] Repository (1 source) cefixime; Translations: [Suprax] Drug Allergy [facility] Repository (12 sources) lactulose; Translations: [lactulose] Drug Allergy 2 [facility] Repository (11 sources) Acetaminophen / oxyCODONE; Translations: [OXYCODONE-ACETAM INOPHEN] Drug Allergy 2 Other: See Comments [facility] Work Phone: (11 sources) Amoxicillin; Translations: [AMOXICILLIN] Drug Allergy 2 [facility] Work Phone: (11 sources) Cefixime; Translations: [CEFIXIME] Drug Allergy 2 [facility] Work Phone: Medications Current Medications Medication [...] oral solution (1 source) alpha-Adrenergic Agonist, Uncompetitive E-pwtscz-V-aspartat e Receptor Antagonist, Sigma-1 Agonist Start: 03-03-2023 [...] 10:58-0500 Body temperature 98.29 [degF] Sylvester Garay APRN.MH TEACHER Work Phone: [facility] 05-06-2023 10:58-0500 Body weight 38.92 kg Sylvester Garay APRN.MH TEACHER Work Phone: [facility] 05-06-2023 10:58-0500 Diastolic blood pressure 75 mm[Hg] Sylvester Garay APRN.MH TEACHER Work Phone: [facility] 05-06-2023 10:58-0500 Heart rate 79 /min Sylvester Garay APRN.MH TEACHER Work Phone: [facility] 05-06-2023 10:58-0500 Respiratory rate 20 /min Sylvester Garay APRN.MH TEACHER Work Phone: [facility] 05-06-2023 10:58-0500 SaO2% (BldA) [Mass fraction] 100 % Sylvester Garay APRN.MH TEACHER Work Phone: [facility] 05-06-2023 10:58-0500 Systolic blood pressure 109 mm[Hg] Sylvester Garay APRN.MH TEACHER Work Phone: [facility] 05-01-2023 11:41-0500 Body weight 38.83 kg Magdalena Estrada RETICLE PRINTER.MH TEACHER Work Phone: [facility] 05-01-2023 11:41-0500 Diastolic blood pressure 60 mm[Hg] Magdalena Estrada RETICLE PRINTER.MH TEACHER Work Phone: [facility] 05-01-2023 11:41-0500 Heart rate 104 /min Magdalena Estrada RETICLE PRINTER.MH TEACHER Work Phone: [facility] 05-01-2023 11:41-0500 Respiratory rate 16 /min Magdalena Estrada RETICLE PRINTER.MH TEACHER Work Phone: [facility] 05-01-2023 11:41-0500 SaO2% (BldA) [Mass fraction] 96 % Magdalena Estrada RETICLE PRINTER.MH TEACHER Work Phone: [facility] 05-01-2023 11:41-0500 Systolic blood pressure 100 mm[Hg] Magdalena Estrada RETICLE PRINTER.MH TEACHER Work Phone: [facility] 03-03-2023 18:28-0400 Body temperature 98.1 [degF] Cris Athy PA-C Work Phone: [facility] 03-03-2023 18:28-0400 Body weight 39.28 kg Cris Athy PA-C Work Phone: [facility] 03-03-2023 18:28-0400 Diastolic blood pressure 76 mm[Hg] Cris Athy PA-C Work Phone: [facility] 03-03-2023 18:28-0400 Heart rate 68 /min Cris Athy PA-C Work Phone: [facility] 03-03-2023 18:28-0400 Respiratory rate 18 /min Cris Athy PA-C Work Phone: [facility] 03-03-2023 18:28-0400 SaO2% (BldA) [Mass fraction] 100 % Cris Athy PA-C Work Phone: [facility] 03-03-2023 18:28-0400 Systolic blood pressure 110 mm[Hg] Cris Rolle PA-C Work Phone: [facility] 03-28-2022 13:42-0400 Body temperature 97.7 [degF] Michelle Alize RETICLE PRINTER.MH TEACHER Work Phone: [facility] 03-28-2022 13:42-0400 Body weight 38.83 kg Michelle Alize RETICLE PRINTER.MH TEACHER Work Phone: [facility] 03-28-2022 13:42-0400 Diastolic blood pressure 64 mm[Hg] Michelle Alize RETICLE PRINTER.MH TEACHER Work Phone: [facility] 03-28-2022 13:42-0400 Heart rate 102 /min Michelle Alize RETICLE PRINTER.MH TEACHER Work Phone: [facility] 03-28-2022 13:42-0400 Respiratory rate 16 /min Michelle Alize RETICLE PRINTER.MH TEACHER Work Phone: [facility] 03-28-2022 13:42-0400 SaO2% (BldA) [Mass fraction] 98 % Michelle Alize RETICLE PRINTER.MH TEACHER Work Phone: [facility] 03-28-2022 13:42-0400 Systolic blood pressure 102 mm[Hg] Michelle Alize RETICLE PRINTER.MH TEACHER Work Phone: [facility] 09-06-2021 13:24-0400 Body height 157 cm Magdalena Zurawick RETICLE PRINTER.MH TEACHER Work Phone: [facility] 09-06-2021 13:24-0400 Body temperature 99.19 [degF] Magdalena Zurawick RETICLE PRINTER.MH TEACHER Work Phone: [facility] 09-06-2021 13:24-0400 Body weight 37.7 kg Magdalena Zurawick RETICLE PRINTER.MH TEACHER Work Phone: [facility] 09-06-2021 13:24-0400 Diastolic blood pressure 62 mm[Hg] Magdalena Zurawick RETICLE PRINTER.MH TEACHER Work Phone: [facility] 09-06-2021 13:24-0400 Heart rate 73 /min Magdalena Domínguez APRN.MH TEACHER Work Phone: [facility] 09-06-2021 13:24-0400 SaO2% (BldA) [Mass fraction] 100 % Magdalena Domínguez APRN.MH TEACHER Work Phone: [facility] 09-06-2021 13:[id number] Systolic blood pressure 90 mm[Hg] Magdalena Domínguez RETICLE PRINTER.MH TEACHER Work Phone: [facility] Encounters Encounter Date Encounter Type Care Provider Facility Start: 05-28-2023 End: 05-29-2023 ambulatory [facility] Facility:[facility] Start: 05-06-2023 End: 05-06-2023 ambulatory [facility] Facility:[facility] Start: 05-06-2023 End: 05-06-2023 Patient encounter procedure Sylvester Garay RETICLE PRINTER.MH TEACHER Work Phone: [facility] Procedures Date Procedure Procedure Detail Performing Clinician Start: 05-01-2023 Urnls dip stick/tabl et rgnt auto w/o microscopy Magdalena Estrada RETICLE PRINTER.MH TEACHER Work Phone: Start: 05-01-2023 STREP A MOLECULAR (POC) Magdalena Estrada RETICLE PRINTER.MH TEACHER Work Phone: Start: 03-03-2023 STREP A MOLECULAR (POC) Cris Rolle PA-C Work Phone: Start: 03-14-2022 Radex shoulder compl ete minimum 2 views Tong Mederos MD Work Phone: Start: 09-06-2021 Urnls dip stick/tabl et rgnt auto w/o microscopy Magdalena Domínguez APRN.MH TEACHER Work Phone: Start: 01-27-2021 Adult depression screening assessment Magdalena Domínguez APRN.MH TEACHER Work Phone: Plan of Treatment Date Care Activity Detail Author Start: 11-27-2029 Urine microalbumin profile [facility] Start: 04-10-2024 Covid-19 Vaccine (#1) Covid-19 Vacci ne (#1) [facility] Immunizations Immunization Date Immunization Notes Care Provider Ivelisse galvan 11-28-2019 tetanus toxoid, redu binu diphtheria toxoid, and acellular pertussis vaccine, adsorbed Magdalena Zurawick RETICLE PRINTER.MH TEACHER Work Phone: [facility] 11-24-2017 tetanus toxoid, redu binu diphtheria toxoid, and acellular pertussis vaccine, adsorbed Magdalena Zurawick RETICLE PRINTER.MH TEACHER Work Phone: [facility] 03-22-2017 influenza virus vaccine, unspecified formulation Cris Rolle PA-C Work Phone: [facility] 12-29-2015 tetanus toxoid, redu binu diphtheria toxoid, and acellular pertussis vaccine, adsorbed Magdalena Zurawick RETICLE PRINTER.MH TEACHER Work Phone: [facility] Work Phone: 12-24-2013 tetanus toxoid, redu binu diphtheria toxoid, and acellular pertussis vaccine, adsorbed Magdalena Zurawick RETICLE PRINTER.MH TEACHER Work Phone: [facility] Payers Date Payer Category Payer Medicaid [id number] 2017 Unknown 2016 Medicaid [facility] MEDICAID [id number] 2016-Present [phone] [address] [place] [address] Medicaid [id number] 2016 Medicaid [id number] Social History Date Type Detail Facility Start: 09-29-2011 End: 03-28-2022 Tobacco smoking status NHIS Never smoked tobacco [facility] Work Phone: Start: 09-29-2011 End: 03-28-2022 Tobacco use and exposure Smokeless tobacco non-user [facility] Work Phone: Start: 09-06-2021 End: 05-06-2023 Alcohol intake Ex-drinker (finding) [facility] Start: 03-23-2020 History SDOH Alcohol Binge 2 [facility] Start: 03-23-2020 History SDOH Financial 4 [facility] Start: 03-23-2020 History SDOH Food Worry 1 [facility] Start: 07-01-2019 Education 13 [facility] Start: 1990 Sex Assigned At Not on file [facility] Start: 08-27-2021 End: 03-28-2022 Exposure to SARS-CoV-2 (event) Not sure [facility] Start: 03-23-2020 End: 04-10-2023 History of Social function [facility] Start: 03-23-2020 End: 04-10-2023 Alcohol Use Disorder Identification Test - Consumption [AUDIT-C] [facility] Frequency of Alcohol Consumption Not on file [facility] How often do you hav e 6 or more drinks on 1 occasion? Less than monthly [facility] How hard is it for y ou to pay for the very basics like food, housing, medical care, and heating Not very hard [facility] (I/We) worried whesuzie er (my/our) food would run out before (I/we) got money to buy more. Never true [facility] Clinical Notes 01-02-2020 to 05-29-2023 Sylvester Garay APRN.[facility] - 05/06/2023 11:26 AM Magdalena Cochran APRN.MH TEACHER - 05/01/2023 11:20 AM ESTTelephone Encounter - Sherri Castanon LPN - 04/12/2023 3:51 PM EDTPatient Instructions Note Date & Type Note Facility 05-29-2023 Note HNO ID: [id number] Author: Divine Salazar Service: ? Author Type: ? Type: Progress Notes Filed: 05/29/2023 4:14 AM Note Text: Sleep Study Check-In Documentation Date: May 29, 2023 Name: Carola Harding Patient was accompanied by Self. Location: [place] Latex allergy: No Tape allergy: No Current medications were reviewed with the patient:Yes Sleep aid taken by patient for the sleep study: [place] of sleep aid: Not Applicable Procedure was [...] ordering provider regarding test results Divine Salazar [facility] 05-26-2023 Note HNO ID: [id number] Author: Oh Siddiqui MD Service: ? Author Type: Physician Type: Progress Notes Filed: 05/29/2023 4:14 AM Note Text: May 26, 2023 Standing PSG Orders signed in the last 90 days None Future PSG Orders signed in the last 90 days Ordered Auth. provider POLYSOMNOGRAM (PSG) [[id number]] 04/10/23 Magdalena Estrada APRN.MH TEACHER Assoc. diagnoses: Fatigue, unspecified type [R53.83], Sleep [...] repeat Sleep Study?: A: No POLYSOMNOGRAM (PSG) [[id number]] 04/10/23 Magdalena Estrada APRN.MH TEACHER Assoc. diagnoses: Fatigue, unspecified type [R53.83], Sleep [...] plan. Oh Siddiqui MD 3:01 PM, 05/26/2023 [facility] 05-22-2023 Note HNO ID: [id number] Author: Gonzalo Daigle Service: ? Author Type: ? Type: Progress Notes Filed: 05/29/2023 4:14 AM Note Text: May 22, 2023 An order has been received for Polysomnogram (PSG) from Magdalena Hernández APRN.devonte [facility]UDD. [facility] Staff. Visit prep complete. Comments :No The sleep study is scheduled for 05/28. Insurance: Payor: [facility] MEDICAID / Plan: [facility] MEDICA[facility] / Product Type: Medicaid / Payer/Plan Subscr Sex Relation Sub. Ins. ID Effective Group Num 1. [facility]* CAROLA HARDING 1990 Female Self [id number] 07/13/22 [facility] [address] Gonzalo Lomaseczorek [facility] 05-06-2023 Note HNO ID: [id number] Author: Sylvester Garay APRN.BLAIRE Service: ? Author [...] PROPIONATE 50 MCG/ACTUATION NASAL SPRAY,SUSPENSION Sylvester Garay APRN.MH TEACHER [facility] 05-06-2023 History of Presen t illness Narrative [...] PROPIONATE 50 MCG/ACTUATION NASAL SPRAY,SUSPENSION Sylvester Garay APRN.MH TEACHER documented in this encounter [facility] 05-01-2023 Note HNO ID: [id number] Author: Magdalena Estrada APRN.BLAIRE Service: ? Author [...] sick with similar symptoms. Took them to relationship mgr and was told this was likely viral [...] No Known Probl (more content not included)... [facility] 05-01-2023 History of Presen t illness Narrative [...] sick with similar symptoms. Took them to relationship mgr and was told this was likely viral [...] agreeable to treatment plan. Magdalena Domínguez APRN.BLAIRE [address] [place] [address] documented in this encounter [facility] 04-12-2023 Miscellaneous Notes Pt. informed. Please call [...] in 1 month. Thank you, Magdalena Estrada APRN.MH TEACHER documented in this encounter [facility] 04-10-2023 Note HNO ID: [id number] Author: Magdalena Estrada APRN.CNP Service: ? Author [...] on 12/10/2023 Covid (more content not included)... [facility] 03-03-2023 Note HNO ID: [id number] Author: Cris Rolle PA-C Service: ? Author Type: Physician Compressor Mechanic Type: Progress Notes Filed: 03/03/2023 6:46 PM Note Text: This note was created using SureDone. Celine Harding is a 32 year old female. HPI Patient presents with a chief complaint of cough and congestion over the past week. She feels like she is not improving. She is tried some Mucinex feey-ilv-fyynlpk. Her son was sick with similar symptoms the week before. No fever. Cough is keeping her up at night. Is productive. No chest pain or shortness of breath. No vomiting or diarrhea. No ear pain. She is also had a persistent sore throat. She tried some allergy medication iwlq-ytx-pmugxku which did not seem to help either. [...] daily for 7 days. 6636 mL 12 Iesupdeqswxwwbb-Tsqyamrcc-FD (BROMFED DM) 2-30-10 mg/5 mL syrup Take [...] STREP A MOLECULAR (POC) Cris Rolle PA-C [facility] 03-03-2023 History of Presen t illness Narrative This note was created using [email or web address]. Celine Harding is a 32 year old female. HPI Patient presents with a chief complaint of cough and congestion over the past week. She feels like she is not improving. She is tried some Mucinex gpat-nax-rtnqzla. Her son was sick with similar symptoms the week before. No fever. Cough is keeping her up at night. Is productive. No chest pain or shortness of breath. No vomiting or diarrhea. No ear pain. She is also had a persistent sore throat. She tried some allergy medication yvzi-ahr-qywjbet which did not seem to help either. [...] daily for 7 days. 6636 mL 12 Vookvlkunimggsd-Bcyypncbf-ID (BROMFED DM) 2-30-10 mg/5 mL syrup Take [...] Cris Rolle PA-C documented in this encounter [facility] 03-28-2022 Instructions Michelle Herrmann APRN.BLAIRE - 03/28/2022 [...] inability to swallow. documented in this encounter [facility] 03-28-2022 History of Presen t illness Narrative Subjective The history is provided by the patient. No cafe associate was used. LIVAN Harding is a 31 [...] have confirmed and edited as necessary, the [facility] Review of Systems Constitutional: Negative for chills, [...] Michelle Herrmann APRN.BLAIRE documented in this encounter [facility] 03-14-2022 History of Presen t illness Narrative Tong OcampoM.Sc. Serology Technician of Orthopaedic Surgery at [place] [address] Office: [phone] Consult requested for an opinion regarding the evaluation and treatment of the above patient. My final impression and recommendations will be communicated back to the requesting physician by way of the shared medical record or letter via US mail. Patient info: Carola Harding ([id number]) Service date: 03/14/2022 Referred by: SELF PCP: [...] Shoulder and Elbow Surgeon Orthopaedic Surgery Department [place], [place] [address] Tell: [phone] Appt:[phone] 03/14/2022 3:51 PM CC:Self documented in this encounter [facility] 09-10-2021 Miscellaneous Notes Patient notified of results [...] Magdalena Domínguez APRN.BLAIRE documented in this encounter [facility] 09-06-2021 Instructions Magdalena Domínguez APRN.CNP - 09/06/2021 1:56 PM EDT Get Blood work and schedule US of abdomen. Schedule with shoe cementer COVID and flu testing in office. documented in this encounter [facility] 09-06-2021 Nurse Note Pt states low abdominal pressure for past few days. Dark concintrated urine. documented in this encounter [facility] 09-06-2021 History of Presen t illness Narrative [...] ultrasound - Increase fiber in diet - [place] low residue diet - UA DIP, URINE [...] Patient agreeable to treatment plan. Magdalena Domínguez APRN.MH TEACHER [address] [place] [address] documented in this encounter [facility] documented as of this encounter (statuses as of 09/06/2021) [facility]07-23-2020 History of Past illness Narrative* Problem Noted [...] age 16, and treated by a at [place]. She has been treated for depression after [...] thyroid disorder treated by Dr. White, an drum worker in [place]. Patient took herself off of levothyroxine at [...] pain 03/19/201211/12 Overview: 03/19/2012Faby was seen at [facility] on March 06 for left flank pain. An ultrasound was done that revealed an intrauterine at 11 weeks 2 days. Urinalysis was negative. Patient denies any pain since then. [facility] ER report was faxed here and sent to Dr. Meeta Dhaliwal's office for review. 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 Patient states she was seen in [facility] 2 weeks ago for spotting during . She denies any bleeding since then. She denies any pain or cramping. She states she had an ultrasound done at [facility] that showed an intrauterine with an estimated due date of April 21. Patient signed a release of records form to obtain her records from her emergency room visit. Miscarriage precautions discussed. Depression 09/29/2011 05/18/2017 Overview: 07/02/2013 Pt has a history of depression diagnosed at age 16, and treated by a DrJoann at [place]. She was treated for depression by Dr. [...] of this encounter (statuses as of 09/10/2021) [facility]-23-2020 History of Past illness Narrative* Problem Noted [...] age 16, and treated by a at [place]. She has been treated for depression after [...] thyroid disorder treated by Dr. White, an drum worker in [place]. Patient took herself off of levothyroxine at [...] pain 03/19/201211/12 Overview: 03/19/2012Faby was seen at [facility] on March 06 for left flank pain. An ultrasound was done that revealed an intrauterine at 11 weeks 2 days. Urinalysis was negative. Patient denies any pain since then. [facility] ER report was faxed here and sent to Dr. Meeta Dhaliwal's office for review. 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 Patient states she was seen in [facility] 2 weeks ago for spotting during . She denies any bleeding since then. She denies any pain or cramping. She states she had an ultrasound done at [facility] that showed an intrauterine with an estimated due date of April 21. Patient signed a release of records form to obtain her records from her emergency room visit. Miscarriage precautions discussed. Depression 09/29/2011 05/18/2017 Overview: 07/02/2013 Pt has a history of depression diagnosed at age 16, and treated by a DrJoann at [place]. She was treated for depression by Dr. [...] of this encounter (statuses as of 03/15/2022) [facility]2020 History of Past illness Narrative* Problem Noted [...] age 16, and treated by a at [place]. She has been treated for depression after [...] thyroid disorder treated by Dr. White, an drum worker in [place]. Patient took herself off of levothyroxine at [...] pain 03/19/201211/12 Overview: 03/19/2012Faby was seen at [facility] on March 06 for left flank pain. An ultrasound was done that revealed an intrauterine at 11 weeks 2 days. Urinalysis was negative. Patient denies any pain since then. [facility] ER report was faxed here and sent to Dr. Meeta Dhaliwal's office for review. 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 Patient states she was seen in [facility] 2 weeks ago for spotting during . She denies any bleeding since then. She denies any pain or cramping. She states she had an ultrasound done at [facility] that showed an intrauterine with an estimated due date of April 21. Patient signed a release of records form to obtain her records from her emergency room visit. Miscarriage precautions discussed. Depression 09/29/2011 05/18/2017 Overview: 07/02/2013 Pt has a history of depression diagnosed at age 16, and treated by a at [place]. She was treated for depression by Dr. [...] of this encounter (statuses as of 03/15/2022) [facility]2020 History of Past illness Narrative* Problem Noted [...] age 16, and treated by a at [place]. She has been treated for depression after [...] thyroid disorder treated by Dr. White, an drum worker in [place]. Patient took herself off of levothyroxine at [...] pain 03/19/201211/12 Overview: 03/19/2012Faby was seen at [facility] on March 06 for left flank pain. An ultrasound was done that revealed an intrauterine at 11 weeks 2 days. Urinalysis was negative. Patient denies any pain since then. [facility] ER report was faxed here and sent to Dr. Meeta Dhaliwal's office for review. 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 Patient states she was seen in [facility] 2 weeks ago for spotting during . She denies any bleeding since then. She denies any pain or cramping. She states she had an ultrasound done at [facility] that showed an intrauterine with an estimated due date of April 21. Patient signed a release of records form to obtain her records from her emergency room visit. Miscarriage precautions discussed. Depression 09/29/2011 05/18/2017 Overview: 07/02/2013 Pt has a history of depression diagnosed at age 16, and treated by a DrJoann at [place]. She was treated for depression by Dr. [...] of this encounter (statuses as of 03/28/2022) [facility]-2020 History of Past illness Narrative* Problem Noted [...] age 16, and treated by a at [place]. She has been treated for depression after [...] thyroid disorder treated by Dr. White, an drum worker in [place]. Patient took herself off of levothyroxine at [...] 0 11/12/2012 Overview: 03/19/2012Faby was seen at [facility] on March 06 for left flank pain. An ultrasound was done that revealed an intrauterine at 11 weeks 2 days. Urinalysis was negative. Patient denies any pain since then. [facility] ER report was faxed here and sent to Dr. Meeta Dhaliwal's office for review. 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 Patient states she was seen in [facility] 2 weeks ago for spotting during . She denies any bleeding since then. She denies any pain or cramping. She states she had an ultrasound done at [facility] that showed an intrauterine with an estimated due date of April 21. Patient signed a release of records form to obtain her records from her emergency room visit. Miscarriage precautions discussed. Depression 09/29/2011 05/18/2017 Overview: 07/02/2013 Pt has a history of depression diagnosed at age 16, and treated by a DrJoann at [place]. She was treated for depression by Dr. [...] of this encounter (statuses as of 03/04/2023) [facility]07-23-2020 History of Past illness Narrative* Problem Noted [...] age 16, and treated by a at [place]. She has been treated for depression after [...] thyroid disorder treated by Dr. White, an drum worker in [place]. Patient took herself off of levothyroxine at [...] 0 11/12/2012 Overview: 03/19/2012She was seen at [facility] on March 06 for left flank pain. An ultrasound was done that revealed an intrauterine at 11 weeks 2 days. Urinalysis was negative. Patient denies any pain since then. [facility] ER report was faxed here and sent to Dr. Meeta Dhaliwal's office for review. 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 Patient states she was seen in [facility] 2 weeks ago for spotting during . She denies any bleeding since then. She denies any pain or cramping. She states she had an ultrasound done at [facility] that showed an intrauterine with an estimated due date of April 21. Patient signed a release of records form to obtain her records from her emergency room visit. Miscarriage precautions discussed. Depression 09/29/2011 05/18/2017 Overview: 07/02/2013 Pt has a history of depression diagnosed at age 16, and treated by a DrJoann at [place]. She was treated for depression by Dr. [...] of this encounter (statuses as of 04/13/2023) [facility]07-[facility]-2020 History of Past illness Narrative* Problem Noted [...] age 16, and treated by a at [place]. She has been treated for depression after [...] thyroid disorder treated by Dr. White, an drum worker in [place]. Patient took herself off of levothyroxine at [...] 0 11/12/2012 Overview: 03/19/2012Faby was seen at [facility] on March 06 for left flank pain. An ultrasound was done that revealed an intrauterine at 11 weeks 2 days. Urinalysis was negative. Patient denies any pain since then. [facility] ER report was faxed here and sent to Dr. Meeta Dhaliwal's office for review. 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 Patient states she was seen in [facility] 2 weeks ago for spotting during . She denies any bleeding since then. She denies any pain or cramping. She states she had an ultrasound done at [facility] that showed an intrauterine with an estimated due date of April 21. Patient signed a release of records form to obtain her records from her emergency room visit. Miscarriage precautions discussed. Depression 09/29/2011 05/18/2017 Overview: 07/02/2013 Pt has a history of depression diagnosed at age 16, and treated by a DrJoann at [place]. She was treated for depression by Dr. [...] of this encounter (statuses as of 05/01/2023) [facility]07-[facility]-2020 History of Past illness Narrative* Problem Noted [...] age 16, and treated by a at [place]. She has been treated for depression after [...] thyroid disorder treated by Dr. White, an drum worker in [place]. Patient took herself off of levothyroxine at [...] 0 11/12/2012 Overview: 03/19/2012Faby was seen at [facility] on March 06 for left flank pain. An ultrasound was done that revealed an intrauterine at 11 weeks 2 days. Urinalysis was negative. Patient denies any pain since then. [facility] ER report was faxed here and sent to Dr. Meeta Dhaliwal's office for review. 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 Patient states she was seen in [facility] 2 weeks ago for spotting during . She denies any bleeding since then. She denies any pain or cramping. She states she had an ultrasound done at [facility] that showed an intrauterine with an estimated due date of April 21. Patient signed a release of records form to obtain her records from her emergency room visit. Miscarriage precautions discussed. Depression 09/29/2011 05/18/2017 Overview: 07/02/2013 Pt has a history of depression diagnosed at age 16, and treated by a at [place]. She was treated for depression by Dr. Dori Guerra. She is currently taking Prozac. She wishes to discuss with Dr. Dhaliwla the risks and benefits of taking this medication during at her new OB appointment. Discussed increased risks of depression during and and importance of reporting the development or worsening of symptoms should they occur. Pt denies ever having any suicidal thoughts or tendencies or thoughts of hurting others. TKRN documented as of this encounter (statuses as of 05/06/2023) [facility] Diagnosis Generalized abdominal pain- Primary Abdominal pain, generalized Cough Underweight [facility] Diagnosis Generalized abdominal pain- Primary Abdominal pain, generalized [facility]* Diagnosis Closed displaced fracture of shaft of right clavicle with routine healing, subsequent encounter- Primary 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 [facility] Diagnosis 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, subsequent encounter [facility]* Diagnosis Acute non-recurrent pansinusitis- Primary [facility]* Diagnosis Sinobronchitis- Primary Unspecified sinusitis (chronic) [facility]* Diagnosis Iron deficiency anemia, unspecified iron deficiency anemia type- Primary [facility]* Diagnosis Iron deficiency anemia, unspecified iron deficiency anemia type- Primary Vaginal discharge Leukorrhea, not specified as infective Menstrual period late Other disorder of menstruation and other abnormal bleeding from female genital tract Acute cough Anxiety with depression Fatigue, unspecified type [facility]* Diagnosis Bacterial sinusitis- Primary Unspecified sinusitis (chronic) documented in this encounter [facility] for referral (narrative)* Diagnostic Procedure Only (Routine) - Authorized Specialty Diagnoses / Procedures Referred By Prince t Referred To Contact US IMAGING Diagnoses Generalized abdominal pain Procedures US ABD RT UPPER QUADRANT US ABDOMINAL REAL TIME W/IMAGE LIMITED Magdalena Domínguez APRN.[employer] TEACHER [address] [place] [address] Us Imaging Referral ID Status Reason Start Date Expiration Date Visits Requested Visits Authorized [id number] Authorized Auto-Generat ed Referral 09/06/2021 10/06/2022 1 1 * Consult, Test, Treat (Routine) - Authorized Specialty Diagnoses / Procedures Referred By Contac t Referred To Contact Nutrition Diagnoses Underweight Procedures CONSULT TO NUTRITION THERAPY OFFICE/OUTPATIENT [facility] MDM 60-74 MINUTES Magdalena Domínguez APRN.MH TEACHER [address] [place] [address] Referral ID Status Reason Start Date Expiration Date Visits Requested Visits Authorized [id number] Authorized PCP Requested Referral 09/06/2021 09/06/2022 1 1 [facility] for referral (narrative)* Diagnostic Procedure Only (Routine) - Closed Specialty Diagnoses / Procedures Referred By Contac t Referred To Contact XR IMAGING Diagnoses Closed displaced fracture of shaft of right clavicle with routine healing, subsequent encounter Procedures XR SHOULDER GENERAL 3V OR MORE AP/TRUE AP/OTHER RIGHT RADEX SHOULDER COMPLETE MINIMUM 2 VIEWS Tong Mederos MD [address] [place] [address] Xr Imaging Referral ID Status Reason Start Date Expiration Date V isits Requested Visits Authorized [id number] Closed Auto-Generate d Referral 03/14/2022 04/13/2023 1 1 [facility] for visit Narrative* Diagnostic Procedure Only (Routine) - Closed Specialty Diagnoses / Procedures Referred By Contac t Referred To Contact XR IMAGING Diagnoses Closed displaced fracture of shaft of right clavicle with routine healing, subsequent encounter Procedures XR SHOULDER GENERAL 3V OR MORE AP/TRUE AP/OTHER RIGHT RADEX SHOULDER COMPLETE MINIMUM 2 VIEWS Tong Mederos MD [address] [place] [address] Xr Imaging Referral ID Status Reason Start Date Expiration Date V isits Requested Visits Authorized [id number] Closed Auto-Generate d Referral 03/14/2022 04/13/2023 1 1 [facility] Summary Purpose Family History No Family History [...] COMPLEX 45 MINS Tong Mederos MD [address] [place] [address] [facility] [address] [place], [place] [id number] [place] [id number] Referral ID Status Reason Start Date Expiration Date Visits Requested Visits Authorized [id number] Pending Review Auto-Generat ed Referral 03/14/2022 03/14/2023 1 1 Specialty Diagnoses / Procedures Referred By Prince dupont Referred To Contact XR IMAGING Diagnoses Closed displaced fracture of shaft of right clavicle with routine healing, subsequent encounter Procedures XR SHOULDER GENERAL 3V OR MORE AP/TRUE AP/OTHER RIGHT RADEX SHOULDER COMPLETE MINIMUM 2 VIEWS Tong Mederos MD [address] [place] [address] Xr Imaging Referral ID Status Reason Start Date Expiration Date V isits Requested Visits Authorized [id number] Closed Auto-Generate d Referral 03/14/2022 04/13/2023 1 1 Additional Source Comments INFORMATION SOURCE (unrecogn ized section and content) DATE CREATED AUTHOR AUTHOR'S ORGANIZ ATION 12/08/2018 [facility] DATE CREATED AUTHOR AUTHOR'S ORGANIZ ATION 05/29/2023 [facility] DATE CREATED AUTHOR AUTHOR'S ORGANIZ ATION 06/01/2023 [facility] Source Comments (unrecognize d section and content) In the event this informatio n is protected by the Federal Confidentiality of Alcohol and Drug Abuse Patient Records regulations: The Federal rules restrict any use of the information to criminally investigate or prosecute any alcohol or drug abuse patient.[facility] the event this information is protected by the Federal Confidentiality of Alcohol and Drug Abuse Patient Records regulations: The Federal rules restrict any use of the information to criminally investigate or prosecute any alcohol or drug abuse patient.[facility] the event this information is protected by the Federal Confidentiality of Alcohol and Drug Abuse Patient Records regulations: The Federal rules restrict any use of the information to criminally investigate or prosecute any alcohol or drug abuse patient.[facility] the event this information is protected by the Federal Confidentiality of Alcohol and Drug Abuse Patient Records regulations: The Federal rules restrict any use of the information to criminally investigate or prosecute any alcohol or drug abuse patient.[facility] the event this information is protected by the Federal Confidentiality of Alcohol and Drug Abuse Patient Records regulations: The Federal rules restrict any use of the information to criminally investigate or prosecute any alcohol or drug abuse patient.[facility] the event this information is protected by the Federal Confidentiality of Alcohol and Drug Abuse Patient Records regulations: The Federal rules restrict any use of the information to criminally investigate or prosecute any alcohol or drug abuse patient.[facility] the event this information is protected by the Federal Confidentiality of Alcohol and Drug Abuse Patient Records regulations: The Federal rules restrict any use of the information to criminally investigate or prosecute any alcohol or drug abuse patient.[facility] the event this information is protected by the Federal Confidentiality of Alcohol and Drug Abuse Patient Records regulations: The Federal rules restrict any use of the information to criminally investigate or prosecute any alcohol or drug abuse patient.[facility] the event this information is protected by the Federal Confidentiality of Alcohol and Drug Abuse Patient Records regulations: The Federal rules restrict any use of the information to criminally investigate or prosecute any alcohol or drug abuse patient.[facility] Reason for Visit (unrecogniz ed section and [...] Care Teams (unrecognized sec tion and content) Umbrella Mender Relationship Specialty Start Date End Date Jamari Lima DO [address] [place] [address] PCP - General Family Practice 05/05/18 Umbrella Mender Relationship Specialty Start Date End Date Jamari Lima DO [address] [place] [address] PCP - General Family Medicine 05/05/18 Umbrella Mender Relationship Specialty Start Date End Date Jamari Lima DO [address] [facility] [place] [address] PCP - General Family Medicine 05/05/18 Umbrella Mender Relationship Specialty Start Date End Date Jamari Lima DO [address] [place] [address] PCP - General Family Medicine 05/05/18 Umbrella Mender Relationship Specialty Start Date End Date Jamari Lima DO [address] [place] [address] PCP - General Family Medicine 05/05/18 Umbrella Mender Relationship Specialty Start Date End Date Jamari Lima DO [address] [place] [address] PCP - General Family Medicine 05/05/18 Umbrella Mender Relationship Specialty Start Date End Date Jamari LimaDO [address] [place] [address] PCP - General Family Medicine 05/05/18 Umbrella Mender Relationship Specialty Start Date End Date LimaJaamri luis Khushi, DO [address] [place] [address] PCP - General Family Medicine 05/05/18 FOR [...] BE BASED ON THE PRIMARY CLINICAL RECORDS. [employer] provides no warranty or guarantee of the accuracy or completeness of information in this document.
--- OUTSIDE RECORDS SUMMARY | 2023-07-16 22:46 | XMS RPT_ITS | CCD ---
Author Name Unknown Address [address] [place] [id number] Organization [facility] Care Team Providers Care Elevator Attendant Name Role Phone Jamari Lima Unavailable Unavailable [...] / oxyCODONE; Translations: [Percocet 10/325] [facility] amoxicillin; Translations: [Amoxil] Drug Allergy [facility] Repository (1 source) cefixime; Translations: [Suprax] Drug Allergy [facility] Repository (12 sources) lactulose; Translations: [lactulose] Drug Allergy 2 [facility] Repository (11 sources) Acetaminophen / oxyCODONE; Translations: [OXYCODONE-ACETAM INOPHEN] Drug Allergy 2 Other: See Comments [facility] Work Phone: (11 sources) Amoxicillin; Translations: [AMOXICILLIN] Drug Allergy 2 [facility] Work Phone: (11 sources) Cefixime; Translations: [CEFIXIME] Drug Allergy 2 [facility] Work Phone: Medications Current Medications Medication Drug [...] oral solution (1 source) alpha-Adrenergic Agonist, Uncompetitive D-guitck-T-aspartat e Receptor Antagonist, Sigma-1 Agonist Start: 03-03-2023 [...] 10:58-0500 Body temperature 98.29 [degF] Sylvester Garay APRN.AIR HOIST OPERATOR Work Phone: [facility] 05-06-2023 10:58-0500 Body weight 38.92 kg Sylvester Garay APRN.AIR HOIST OPERATOR Work Phone: [facility] 05-06-2023 10:58-0500 Diastolic blood pressure 75 mm[Hg] Sylvester Garay APRN.AIR HOIST OPERATOR Work Phone: [facility] 05-06-2023 10:58-0500 Heart rate 79 /min Sylvester Garay APRN.AIR HOIST OPERATOR Work Phone: [facility] 05-06-2023 10:58-0500 Respiratory rate 20 /min Sylvester Garay APRN.AIR HOIST OPERATOR Work Phone: [facility] 05-06-2023 10:58-0500 SaO2% (BldA) [Mass fraction] 100 % Sylvester Garay APRN.AIR HOIST OPERATOR Work Phone: [facility] 05-06-2023 10:58-0500 Systolic blood pressure 109 mm[Hg] Sylvester Garay APRN.AIR HOIST OPERATOR Work Phone: [facility] 05-01-2023 11:41-0500 Body weight 38.83 kg Magdalena Estrada FINISHING SUPERVISOR PLASTIC SHEETS.AIR HOIST OPERATOR Work Phone: [facility] 05-01-2023 11:41-0500 Diastolic blood pressure 60 mm[Hg] Magdalena Estrada FINISHING SUPERVISOR PLASTIC SHEETS.AIR HOIST OPERATOR Work Phone: [facility] 05-01-2023 11:41-0500 Heart rate 104 /min Magdalena Estrada FINISHING SUPERVISOR PLASTIC SHEETS.AIR HOIST OPERATOR Work Phone: [facility] 05-01-2023 11:41-0500 Respiratory rate 16 /min Magdalena Estrada FINISHING SUPERVISOR PLASTIC SHEETS.AIR HOIST OPERATOR Work Phone: [facility] 05-01-2023 11:41-0500 SaO2% (BldA) [Mass fraction] 96 % Magdalena Estrada FINISHING SUPERVISOR PLASTIC SHEETS.AIR HOIST OPERATOR Work Phone: [facility] 05-01-2023 11:41-0500 Systolic blood pressure 100 mm[Hg] Magdalena Estrada FINISHING SUPERVISOR PLASTIC SHEETS.AIR HOIST OPERATOR Work Phone: [facility] 03-03-2023 18:28-0400 Body temperature 98.1 [degF] Cris Athy PA-C Work Phone: [facility] 03-03-2023 18:28-0400 Body weight 39.28 kg Cris Athy PA-C Work Phone: [facility] 03-03-2023 18:28-0400 Diastolic blood pressure 76 mm[Hg] Cris Athy PA-C Work Phone: [facility] 03-03-2023 18:28-0400 Heart rate 68 /min Cris Athy PA-C Work Phone: [facility] 03-03-2023 18:28-0400 Respiratory rate 18 /min Cris Athy PA-C Work Phone: [facility] 03-03-2023 18:28-0400 SaO2% (BldA) [Mass fraction] 100 % Cris Athy PA-C Work Phone: [facility] 03-03-2023 18:28-0400 Systolic blood pressure 110 mm[Hg] Cris Rolle PA-C Work Phone: [facility] 03-28-2022 13:42-0400 Body temperature 97.7 [degF] Michelle Alize FINISHING SUPERVISOR PLASTIC SHEETS.AIR HOIST OPERATOR Work Phone: [facility] 03-28-2022 13:42-0400 Body weight 38.83 kg Michelle Alize FINISHING SUPERVISOR PLASTIC SHEETS.AIR HOIST OPERATOR Work Phone: [facility] 03-28-2022 13:42-0400 Diastolic blood pressure 64 mm[Hg] Michelle Alize FINISHING SUPERVISOR PLASTIC SHEETS.AIR HOIST OPERATOR Work Phone: [facility] 03-28-2022 13:42-0400 Heart rate 102 /min Michelle Alize FINISHING SUPERVISOR PLASTIC SHEETS.AIR HOIST OPERATOR Work Phone: [facility] 03-28-2022 13:42-0400 Respiratory rate 16 /min Michelle Alize FINISHING SUPERVISOR PLASTIC SHEETS.AIR HOIST OPERATOR Work Phone: [facility] 03-28-2022 13:42-0400 SaO2% (BldA) [Mass fraction] 98 % Michelle Alize FINISHING SUPERVISOR PLASTIC SHEETS.AIR HOIST OPERATOR Work Phone: [facility] 03-28-2022 13:42-0400 Systolic blood pressure 102 mm[Hg] Michelle Alize FINISHING SUPERVISOR PLASTIC SHEETS.AIR HOIST OPERATOR Work Phone: [facility] 09-06-2021 13:24-0400 Body height 157 cm Magdalena Zurawick FINISHING SUPERVISOR PLASTIC SHEETS.AIR HOIST OPERATOR Work Phone: [facility] 09-06-2021 13:24-0400 Body temperature 99.19 [degF] Magdalena Zurawick FINISHING SUPERVISOR PLASTIC SHEETS.AIR HOIST OPERATOR Work Phone: [facility] 09-06-2021 13:24-0400 Body weight 37.7 kg Magdalena Zurawick FINISHING SUPERVISOR PLASTIC SHEETS.AIR HOIST OPERATOR Work Phone: [facility] 09-06-2021 13:24-0400 Diastolic blood pressure 62 mm[Hg] Magdalena Zurawick FINISHING SUPERVISOR PLASTIC SHEETS.AIR HOIST OPERATOR Work Phone: [facility] 09-06-2021 13:24-0400 Heart rate 73 /min Magdalena Domínguez APRN.AIR HOIST OPERATOR Work Phone: [facility] 09-06-2021 13:24-0400 SaO2% (BldA) [Mass fraction] 100 % Magdalena Domínguez APRN.AIR HOIST OPERATOR Work Phone: [facility] 09-06-2021 [id number] Systolic blood pressure 90 mm[Hg] Magdalena Domínguez FINISHING SUPERVISOR PLASTIC SHEETS.AIR HOIST OPERATOR Work Phone: [facility] Encounters Encounter Date Encounter Type Care Provider Facility Start: 05-28-2023 End: 05-29-2023 ambulatory [facility] Facility:[facility] Start: 05-06-2023 End: 05-06-2023 ambulatory [facility] Facility:[facility] Start: 05-06-2023 End: 05-06-2023 Patient encounter procedure Sylvester Garay FINISHING SUPERVISOR PLASTIC SHEETS.AIR HOIST OPERATOR Work Phone: [facility] Procedures Date Procedure Procedure Detail Performing Clinician Start: 05-01-2023 Urnls dip stick/tabl et rgnt auto w/o microscopy Magdalena Estrada FINISHING SUPERVISOR PLASTIC SHEETS.AIR HOIST OPERATOR Work Phone: Start: 05-01-2023 STREP A MOLECULAR (POC) Magdalena Estrada FINISHING SUPERVISOR PLASTIC SHEETS.AIR HOIST OPERATOR Work Phone: Start: 03-03-2023 STREP A MOLECULAR (POC) Cris Rolle PA-C Work Phone: Start: 03-14-2022 Radex shoulder compl ete minimum 2 views Tong Mederos MD Work Phone: Start: 09-06-2021 Urnls dip stick/tabl et rgnt auto w/o microscopy Magdalena Domínguez APRN.AIR HOIST OPERATOR Work Phone: Start: 01-27-2021 Adult depression screening assessment Magdalena Domínguez APRN.AIR HOIST OPERATOR Work Phone: Plan of Treatment Date Care Activity Detail Author Start: 11-27-2029 Urine microalbumin profile [facility] Start: 04-10-2024 Covid-19 Vaccine (#1) Covid-19 Vacci ne (#1) [facility] Immunizations Immunization Date Immunization Notes Care Provider Ivelisse galvan 11-28-2019 tetanus toxoid, redu binu diphtheria toxoid, and acellular pertussis vaccine, adsorbed Magdalena Zurawick FINISHING SUPERVISOR PLASTIC SHEETS.AIR HOIST OPERATOR Work Phone: [facility] 11-24-2017 tetanus toxoid, redu binu diphtheria toxoid, and acellular pertussis vaccine, adsorbed Magdalena Zurawick FINISHING SUPERVISOR PLASTIC SHEETS.AIR HOIST OPERATOR Work Phone: [facility] 03-22-2017 influenza virus vaccine, unspecified formulation Cris Rolle PA-C Work Phone: [facility] 12-29-2015 tetanus toxoid, redu binu diphtheria toxoid, and acellular pertussis vaccine, adsorbed Magdalena Zurawick FINISHING SUPERVISOR PLASTIC SHEETS.AIR HOIST OPERATOR Work Phone: [facility] Work Phone: 12-24-2013 tetanus toxoid, redu binu diphtheria toxoid, and acellular pertussis vaccine, adsorbed Magdalena Zurawick FINISHING SUPERVISOR PLASTIC SHEETS.AIR HOIST OPERATOR Work Phone: [facility] Payers Date Payer Category Payer Medicaid [id number] 2017 Unknown 2016 Medicaid [facility] MEDICAID [id number] 2016-Present [phone] [address] [place] [address] Medicaid [id number] 2016 Medicaid [id number] Social History Date Type Detail Facility Start: 09-29-2011 End: 03-28-2022 Tobacco smoking status NHIS Never smoked tobacco [facility] Work Phone: Start: 09-29-2011 End: 03-28-2022 Tobacco use and exposure Smokeless tobacco non-user [facility] Work Phone: Start: 09-06-2021 End: 05-06-2023 Alcohol intake Ex-drinker (finding) [facility] Start: 03-23-2020 History SDOH Alcohol Binge 2 [facility] Start: 03-23-2020 History SDOH Financial 4 [facility] Start: 03-23-2020 History SDOH Food Worry 1 [facility] Start: 07-01-2019 Education 13 [facility] Start: 1990 Sex Assigned At Not on file [facility] Start: 08-27-2021 End: 03-28-2022 Exposure to SARS-CoV-2 (event) Not sure [facility] Start: 03-23-2020 End: 04-10-2023 History of Social function [place] [facility] Start: 03-23-2020 End: 04-10-2023 Alcohol Use Disorder Identification Test - Consumption [AUDIT-C] [facility] Frequency of Alcohol Consumption Not on file [facility] How often do you hav e 6 or more drinks on 1 occasion? Less than monthly [facility] How hard is it for y ou to pay for the very basics like food, housing, medical care, and heating Not very hard [facility] (I/We) worried whesuzie er (my/our) food would run out before (I/we) got money to buy more. Never true [facility] Clinical Notes 01-02-2020 to 05-29-2023 Sylvester Garay APRN.[facility] - 05/06/2023 11:26 AM Magdalena Cochran APRN.AIR HOIST OPERATOR - 05/01/2023 11:20 AM ESTTelephone Encounter - Sherri Castanon LPN - 04/12/2023 3:51 PM EDTPatient Instructions Note Date & Type Note Facility 05-29-2023 Note HNO ID: [id number] Author: Divine Salazar Service: ? Author Type: ? Type: Progress Notes Filed: 05/29/2023 4:14 AM Note Text: Sleep Study Check-In Documentation Date: May 29, 2023 Name: Carola Harding Patient was accompanied by Self. Location: [place] Latex allergy: No Tape allergy: No Current medications were reviewed with the patient:Yes Sleep aid taken by patient for the sleep study: [place] of sleep aid: Not Applicable Procedure was [...] ordering provider regarding test results Divine Salazar [facility] 05-26-2023 Note HNO ID: [id number] Author: Oh Siddiqui MD Service: ? Author Type: Physician Type: Progress Notes Filed: 05/29/2023 4:14 AM Note Text: May 26, 2023 Standing PSG Orders signed in the last 90 days None Future PSG Orders signed in the last 90 days Ordered Auth. provider POLYSOMNOGRAM (PSG) [[id number]] 04/10/23 Magdalena Estrada APRN.AIR HOIST OPERATOR Assoc. diagnoses: Fatigue, unspecified type [R53.83], [...] repeat Sleep Study?: A: No POLYSOMNOGRAM (PSG) [[id number]] 04/10/23 Magdalena Estrada APRN.AIR HOIST OPERATOR Assoc. diagnoses: Fatigue, unspecified type [R53.83], [...] plan. Oh Siddiqui MD 3:01 PM, 05/26/2023 [facility] 05-22-2023 Note HNO ID: [id number] Author: Gonzalo Daigle Service: ? Author Type: ? Type: Progress Notes Filed: 05/29/2023 4:14 AM Note Text: May 22, 2023 An order has been received for Polysomnogram (PSG) from Magdalena Hernández APRN.devonte RUDD. [facility] Staff. Visit prep complete. Comments :No The sleep study is scheduled for 05/28. Insurance: Payor: [facility] MEDICAID / Plan: [facility] MEDICAID / Product Type: Medicaid / Payer/Plan Subscr Sex Relation Sub. Ins. ID Effective Group Num 1. [facility] CAROLA HARDING 1990 Female Self [id number] 07/13/22 [facility] [address] Gonzalo Lomaseczorek [facility] 05-06-2023 Note HNO ID: [id number] Author: Sylvester Garay APRN.BLAIRE Service: ? Author [...] PROPIONATE 50 MCG/ACTUATION NASAL SPRAY,SUSPENSION Sylvester Garay APRN.AIR HOIST OPERATOR [facility] 05-06-2023 History of Presen t illness [...] PROPIONATE 50 MCG/ACTUATION NASAL SPRAY,SUSPENSION Sylvester Garay APRN.AIR HOIST OPERATOR documented in this encounter [facility] 05-01-2023 Note HNO ID: [id number] Author: Magdalena Estrada APRN.BLAIRE Service: ? Author [...] sick with similar symptoms. Took them to biologics specialist and was told this was likely viral [...] No Known Probl (more content not included)... [facility] 05-01-2023 History of Presen t illness [...] sick with similar symptoms. Took them to biologics specialist and was told this was likely viral [...] agreeable to treatment plan. Magdalena Domínguez APRN.BLAIRE [address] [place] [address] documented in this encounter [facility] 04-12-2023 Miscellaneous Notes Pt. [...] in 1 month. Thank you, Magdalena Estrada APRN.AIR HOIST OPERATOR documented in this encounter [facility] 04-10-2023 Note HNO ID: [id number] Author: Magdalena Estrada APRN.CNP Service: ? Author [...] on 12/10/2023 Covid (more content not included)... [facility] 03-03-2023 Note HNO ID: [id number] Author: Cris Rolle PA-C Service: ? Author Type: Physician Repair Service Clerk Type: Progress Notes Filed: 03/03/2023 6:46 PM Note Text: This note was created using ReadWorks. Celine Harding is a 32 year old female. HPI Patient presents with a chief complaint of cough and congestion over the past week. She feels like she is not improving. She is tried some Mucinex mikq-bdf-cddoewc. Her son was sick with similar symptoms the week before. No fever. Cough is keeping her up at night. Is productive. No chest pain or shortness of breath. No vomiting or diarrhea. No ear pain. She is also had a persistent sore throat. She tried some allergy medication mxld-uuh-ywitwyi which did not seem to help either. [...] daily for 7 days. 6636 mL 12 Cmxwjilyapzvtaj-Ppcpavlaq-VZ (BROMFED DM) 2-30-10 mg/5 mL syrup Take [...] STREP A MOLECULAR (POC) Cris Rolle PA-C [facility] 03-03-2023 History of Presen t illness Narrative This note was created using DZZOMriter. Celine Harding is a 32 year old female. HPI Patient presents with a chief complaint of cough and congestion over the past week. She feels like she is not improving. She is tried some Mucinex mcsv-wvk-pndwrvv. Her son was sick with similar symptoms the week before. No fever. Cough is keeping her up at night. Is productive. No chest pain or shortness of breath. No vomiting or diarrhea. No ear pain. She is also had a persistent sore throat. She tried some allergy medication wwxa-mmy-zpkrtrz which did not seem to help either. [...] daily for 7 days. 6636 mL 12 Izzdwnrmrgtdick-Evcgnzrhw-JE (BROMFED DM) 2-30-10 mg/5 mL syrup Take [...] Cris Rolle PA-C documented in this encounter [facility] 03-28-2022 Instructions Michelle Herrmann [...] inability to swallow. documented in this encounter [facility] 03-28-2022 History of Presen t illness Narrative Subjective The history is provided by the patient. No production generalist was used. LIVAN Harding is a 31 [...] have confirmed and edited as necessary, the [facility] Review of Systems Constitutional: Negative [...] Michelle Herrmann APRN.BLAIRE documented in this encounter [facility] 03-14-2022 History of Presen t illness Narrative Tong OcampoM.Sc. Middle School Science Teacher of Orthopaedic Surgery at [place] [address] Office: [phone] Consult requested for an opinion regarding the evaluation and treatment of the above patient. My final impression and recommendations will be communicated back to the requesting physician by way of the shared medical record or letter via US mail. Patient info: Carola Harding ([id number]) Service date: 03/14/2022 Referred by: SELF PCP: [...] Shoulder and Elbow Surgeon Orthopaedic Surgery Department [place], [place] [address] Tell: [phone] Appt:[phone] 03/14/2022 3:51 PM CC:Self documented in this encounter [facility] 09-10-2021 Miscellaneous Notes Patient [...] Magdalena Domínguez APRN.BLAIRE documented in this encounter [facility] 09-06-2021 Instructions Magdalena Domínguez APRN.CNP - 09/06/2021 1:56 PM EDT Get Blood work and schedule US of abdomen. Schedule with electrical line splicer COVID and flu testing in office. documented in this encounter [facility] 09-06-2021 Nurse Note Pt states low abdominal pressure for past few days. Dark concintrated urine. documented in this encounter [facility] 09-06-2021 History of Presen [...] ultrasound - Increase fiber in diet - [place] low residue diet - UA DIP, URINE [...] Patient agreeable to treatment plan. Magdalena Domínguez APRN.AIR HOIST OPERATOR [address] [place] [address] documented in this encounter [facility] documented as of this encounter (statuses as of 09/06/2021) [facility]07-[facility] History of Past illness [...] age 16, and treated by a at [place]. She has been treated for depression after [...] thyroid disorder treated by Dr. White, an pulpit operator in [place]. Patient took herself off of levothyroxine at [...] pain 03/19/201211/12 Overview: 03/19/2012Faby was seen at [facility] on March 06 for left flank pain. An ultrasound was done that revealed an intrauterine at 11 weeks 2 days. Urinalysis was negative. Patient denies any pain since then. [facility] ER report was faxed here and sent to Dr. Meeta Dhaliwal's office for review. 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 Patient states she was seen in [facility] 2 weeks ago for spotting during . She denies any bleeding since then. She denies any pain or cramping. She states she had an ultrasound done at [facility] that showed an intrauterine with an estimated due date of April 21. Patient signed a release of records form to obtain her records from her emergency room visit. Miscarriage precautions discussed. Depression 09/29/2011 05/18/2017 Overview: 07/02/2013 Pt has a history of depression diagnosed at age 16, and treated by a DrJoann at [place]. She was treated for depression by Dr. [...] of this encounter (statuses as of 09/10/2021) [facility]2020 History of Past illness [...] age 16, and treated by a at [place]. She has been treated for depression after [...] thyroid disorder treated by Dr. White, an pulpit operator in [place]. Patient took herself off of levothyroxine at [...] pain 03/19/201211/12 Overview: 03/19/2012Faby was seen at [facility] on March 06 for left flank pain. An ultrasound was done that revealed an intrauterine at 11 weeks 2 days. Urinalysis was negative. Patient denies any pain since then. [facility] ER report was faxed here and sent to Dr. Meeta Dhaliwal's office for review. 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 Patient states she was seen in [facility] 2 weeks ago for spotting during . She denies any bleeding since then. She denies any pain or cramping. She states she had an ultrasound done at [facility] that showed an intrauterine with an estimated due date of April 21. Patient signed a release of records form to obtain her records from her emergency room visit. Miscarriage precautions discussed. Depression 09/29/2011 05/18/2017 Overview: 07/02/2013 Pt has a history of depression diagnosed at age 16, and treated by a DrJoann at [place]. She was treated for depression by Dr. [...] of this encounter (statuses as of 03/15/2022) [facility] History of Past illness [...] age 16, and treated by a at [place]. She has been treated for depression after [...] thyroid disorder treated by Dr. White, an pulpit operator in [place]. Patient took herself off of levothyroxine at [...] pain 03/19/201211/12 Overview: 03/19/2012Faby was seen at [facility] on March 06 for left flank pain. An ultrasound was done that revealed an intrauterine at 11 weeks 2 days. Urinalysis was negative. Patient denies any pain since then. [facility] ER report was faxed here and sent to Dr. Meeta Dhaliwal's office for review. 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 Patient states she was seen in [facility] 2 weeks ago for spotting during . She denies any bleeding since then. She denies any pain or cramping. She states she had an ultrasound done at [facility] that showed an intrauterine with an estimated due date of April 21. Patient signed a release of records form to obtain her records from her emergency room visit. Miscarriage precautions discussed. Depression 09/29/2011 05/18/2017 Overview: 07/02/2013 Pt has a history of depression diagnosed at age 16, and treated by a at [place]. She was treated for depression by Dr. [...] of this encounter (statuses as of 03/15/2022) [facility]2020 History of Past illness [...] age 16, and treated by a at [place]. She has been treated for depression after [...] thyroid disorder treated by Dr. White, an pulpit operator in [place]. Patient took herself off of levothyroxine at [...] pain 03/19/201211/12 Overview: 03/19/2012Faby was seen at [facility] on March 06 for left flank pain. An ultrasound was done that revealed an intrauterine at 11 weeks 2 days. Urinalysis was negative. Patient denies any pain since then. [facility] ER report was faxed here and sent to Dr. Meeta Dhaliwal's office for review. 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 Patient states she was seen in [facility] 2 weeks ago for spotting during . She denies any bleeding since then. She denies any pain or cramping. She states she had an ultrasound done at [facility] that showed an intrauterine with an estimated due date of April 21. Patient signed a release of records form to obtain her records from her emergency room visit. Miscarriage precautions discussed. Depression 09/29/2011 05/18/2017 Overview: 07/02/2013 Pt has a history of depression diagnosed at age 16, and treated by a DrJoann at [place]. She was treated for depression by Dr. [...] of this encounter (statuses as of 03/28/2022) [facility] [facility]07[facility] History of Past illness [...] age 16, and treated by a at [place]. She has been treated for depression after [...] thyroid disorder treated by Dr. White, an pulpit operator in [place]. Patient took herself off of levothyroxine at [...] 0 11/12/2012 Overview: 03/19/2012Faby was seen at [facility] on March 06 for left flank pain. An ultrasound was done that revealed an intrauterine at 11 weeks 2 days. Urinalysis was negative. Patient denies any pain since then. [facility] ER report was faxed here and sent to Dr. Meeta Dhaliwal's office for review. 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 Patient states she was seen in [facility] 2 weeks ago for spotting during . She denies any bleeding since then. She denies any pain or cramping. She states she had an ultrasound done at [facility] that showed an intrauterine with an estimated due date of April 21. Patient signed a release of records form to obtain her records from her emergency room visit. Miscarriage precautions discussed. Depression 09/29/2011 05/18/2017 Overview: 07/02/2013 Pt has a history of depression diagnosed at age 16, and treated by a DrJoann at [place]. She was treated for depression by Dr. [...] of this encounter (statuses as of 03/04/2023) [facility]07-23-2020 History of Past illness [...] age 16, and treated by a at [place]. She has been treated for depression after [...] thyroid disorder treated by Dr. White, an pulpit operator in [place]. Patient took herself off of levothyroxine at [...] 0 11/12/2012 Overview: 03/19/2012She was seen at [facility] on March 06 for left flank pain. An ultrasound was done that revealed an intrauterine at 11 weeks 2 days. Urinalysis was negative. Patient denies any pain since then. [facility] ER report was faxed here and sent to Dr. Meeta Dhaliwal's office for review. 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 Patient states she was seen in [facility] 2 weeks ago for spotting during . She denies any bleeding since then. She denies any pain or cramping. She states she had an ultrasound done at [facility] that showed an intrauterine with an estimated due date of April 21. Patient signed a release of records form to obtain her records from her emergency room visit. Miscarriage precautions discussed. Depression 09/29/2011 05/18/2017 Overview: 07/02/2013 Pt has a history of depression diagnosed at age 16, and treated by a DrJoann at [place]. She was treated for depression by Dr. [...] of this encounter (statuses as of 04/13/2023) [facility]07-23-2020 History of Past illness [...] age 16, and treated by a at [place]. She has been treated for depression after [...] thyroid disorder treated by Dr. White, an pulpit operator in [place]. Patient took herself off of levothyroxine at [...] 0 11/12/2012 Overview: 03/19/2012Faby was seen at [facility] on March 06 for left flank pain. An ultrasound was done that revealed an intrauterine at 11 weeks 2 days. Urinalysis was negative. Patient denies any pain since then. [facility] ER report was faxed here and sent to Dr. Meeta Dhaliwal's office for review. 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 Patient states she was seen in [facility] 2 weeks ago for spotting during . She denies any bleeding since then. She denies any pain or cramping. She states she had an ultrasound done at [facility] that showed an intrauterine with an estimated due date of April 21. Patient signed a release of records form to obtain her records from her emergency room visit. Miscarriage precautions discussed. Depression 09/29/2011 05/18/2017 Overview: 07/02/2013 Pt has a history of depression diagnosed at age 16, and treated by a DrJoann at [place]. She was treated for depression by Dr. [...] of this encounter (statuses as of 05/01/2023) [facility]07-[facility]-2020 History of Past illness [...] age 16, and treated by a at [place]. She has been treated for depression after [...] thyroid disorder treated by Dr. White, an pulpit operator in [place]. Patient took herself off of levothyroxine at [...] 0 11/12/2012 Overview: 03/19/2012Faby was seen at [facility] on March 06 for left flank pain. An ultrasound was done that revealed an intrauterine at 11 weeks 2 days. Urinalysis was negative. Patient denies any pain since then. [facility] ER report was faxed here and sent to Dr. Meeta Dhaliwal's office for review. 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 Patient states she was seen in [facility] 2 weeks ago for spotting during . She denies any bleeding since then. She denies any pain or cramping. She states she had an ultrasound done at [facility] that showed an intrauterine with an estimated due date of April 21. Patient signed a release of records form to obtain her records from her emergency room visit. Miscarriage precautions discussed. Depression 09/29/2011 05/18/2017 Overview: 07/02/2013 Pt has a history of depression diagnosed at age 16, and treated by a at [place]. She was treated for depression by Dr. [...] of this encounter (statuses as of 05/06/2023) [facility] Diagnosis Generalized abdominal pain- Primary Abdominal pain, generalized Cough Underweight [facility] Diagnosis Generalized abdominal pain- Primary Abdominal pain, generalized [facility] Diagnosis Closed displaced fracture of shaft of right clavicle with routine healing, subsequent encounter- Primary 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 [facility] Diagnosis 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, subsequent encounter [facility] Diagnosis Acute non-recurrent pansinusitis- Primary [facility] Diagnosis Sinobronchitis- Primary Unspecified sinusitis (chronic) [facility] Diagnosis Iron deficiency anemia, unspecified iron deficiency anemia type- Primary [facility] Diagnosis Iron deficiency anemia, unspecified iron deficiency anemia type- Primary Vaginal discharge Leukorrhea, not specified as infective Menstrual period late Other disorder of menstruation and other abnormal bleeding from female genital tract Acute cough Anxiety with depression Fatigue, unspecified type [facility] this encounter [facility] Diagnosis Bacterial sinusitis- Primary Unspecified sinusitis (chronic) documented in this encounter [facility] for referral (narrative)* Diagnostic Procedure Only (Routine) - Authorized Specialty Diagnoses / Procedures Referred By Prince t Referred To Contact US IMAGING Diagnoses Generalized abdominal pain Procedures US ABD RT UPPER QUADRANT US ABDOMINAL REAL TIME W/IMAGE LIMITED Magdalena Domínguez APRN.AIR HOIST OPERATOR [address] [place] [address] Us Imaging Referral ID Status Reason Start Date Expiration Date Visits Requested Visits Authorized [id number] Authorized Auto-Generat ed Referral 09/06/2021 10/06/2022 1 1 * Consult, Test, Treat (Routine) - Authorized Specialty Diagnoses / Procedures Referred By Contac t Referred To Contact Nutrition Diagnoses Underweight Procedures CONSULT TO NUTRITION THERAPY OFFICE/OUTPATIENT CRITICAL ACCESS HOSPITAL MDM 60-74 MINUTES Magdalena Domínguez APRN.AIR HOIST OPERATOR [address] [place] [address] Referral ID Status Reason Start Date Expiration Date Visits Requested Visits Authorized [id number] Authorized PCP Requested Referral 09/06/2021 09/06/2022 1 1 [facility] for referral (narrative)* Diagnostic Procedure Only (Routine) - Closed Specialty Diagnoses / Procedures Referred By Contac t Referred To Contact XR IMAGING Diagnoses Closed displaced fracture of shaft of right clavicle with routine healing, subsequent encounter Procedures XR SHOULDER GENERAL 3V OR MORE AP/TRUE AP/OTHER RIGHT RADEX SHOULDER COMPLETE MINIMUM 2 VIEWS Tong Mederos MD [address] [facility] [address] Xr Imaging Referral ID Status Reason Start Date Expiration Date V isits Requested Visits Authorized [id number] Closed Auto-Generate d Referral 03/14/2022 04/13/2023 1 1 [facility] for visit Narrative* Diagnostic Procedure Only (Routine) - Closed Specialty Diagnoses / Procedures Referred By Contac t Referred To Contact XR IMAGING Diagnoses Closed displaced fracture of shaft of right clavicle with routine healing, subsequent encounter Procedures XR SHOULDER GENERAL 3V OR MORE AP/TRUE AP/OTHER RIGHT RADEX SHOULDER COMPLETE MINIMUM 2 VIEWS Tong Mederos MD [address] [address] Xr Imaging Referral ID Status Reason Start Date Expiration Date V isits Requested Visits Authorized [id number] Closed Auto-Generate d Referral 03/14/2022 04/13/2023 1 1 [facility] Summary Purpose Family History [...] COMPLEX 45 MINS Tong Mederos MD [address] [address] [facility] [place] [address] [place], [place] [id number] [place] [id number] Referral ID Status Reason Start Date Expiration Date Visits Requested Visits Authorized [id number] Pending Review Auto-Generat ed Referral 03/14/2022 03/14/2023 1 1 Specialty Diagnoses / Procedures Referred By Prince dupont Referred To Contact XR IMAGING Diagnoses Closed displaced fracture of shaft of right clavicle with routine healing, subsequent encounter Procedures XR SHOULDER GENERAL 3V OR MORE AP/TRUE AP/OTHER RIGHT RADEX SHOULDER COMPLETE MINIMUM 2 VIEWS Tong Mederos MD [address] [place] [address] Xr Imaging Referral ID Status Reason Start Date Expiration Date V isits Requested Visits Authorized [id number] Closed Auto-Generate d Referral 03/14/2022 04/13/2023 1 1 Additional Source Comments INFORMATION SOURCE (unrecogn ized section and content) DATE CREATED AUTHOR AUTHOR'S ORGANIZ ATION 12/08/2018 [facility] DATE CREATED AUTHOR AUTHOR'S ORGANIZ ATION 05/29/2023 [facility] DATE CREATED AUTHOR AUTHOR'S ORGANIZ ATION 06/01/2023 [facility] Source Comments (unrecognize d section and content) In the event this informatio n is protected by the Federal Confidentiality of Alcohol and Drug Abuse Patient Records regulations: The Federal rules restrict any use of the information to criminally investigate or prosecute any alcohol or drug abuse patient.[facility] the event this information is protected by the Federal Confidentiality of Alcohol and Drug Abuse Patient Records regulations: The Federal rules restrict any use of the information to criminally investigate or prosecute any alcohol or drug abuse patient.[facility] the event this information is protected by the Federal Confidentiality of Alcohol and Drug Abuse Patient Records regulations: The Federal rules restrict any use of the information to criminally investigate or prosecute any alcohol or drug abuse patient.[facility] the event this information is protected by the Federal Confidentiality of Alcohol and Drug Abuse Patient Records regulations: The Federal rules restrict any use of the information to criminally investigate or prosecute any alcohol or drug abuse patient.[facility] the event this information is protected by the Federal Confidentiality of Alcohol and Drug Abuse Patient Records regulations: The Federal rules restrict any use of the information to criminally investigate or prosecute any alcohol or drug abuse patient.[facility] the event this information is protected by the Federal Confidentiality of Alcohol and Drug Abuse Patient Records regulations: The Federal rules restrict any use of the information to criminally investigate or prosecute any alcohol or drug abuse patient.[facility] the event this information is protected by the Federal Confidentiality of Alcohol and Drug Abuse Patient Records regulations: The Federal rules restrict any use of the information to criminally investigate or prosecute any alcohol or drug abuse patient.[facility] the event this information is protected by the Federal Confidentiality of Alcohol and Drug Abuse Patient Records regulations: The Federal rules restrict any use of the information to criminally investigate or prosecute any alcohol or drug abuse patient.[facility] the event this information is protected by the Federal Confidentiality of Alcohol and Drug Abuse Patient Records regulations: The Federal rules restrict any use of the information to criminally investigate or prosecute any alcohol or drug abuse patient.[facility] Reason for Visit (unrecogniz [...] Care Teams (unrecognized sec tion and content) Elevator Attendant Relationship Specialty Start Date End Date Jamari Lima DO [address] [place] [address] PCP - General Family Practice 05/05/18 Elevator Attendant Relationship Specialty Start Date End Date Jamari Lima DO [address] [place] [address] PCP - General Family Medicine 05/05/18 Elevator Attendant Relationship Specialty Start Date End Date Jamari Lima DO [address] [facility] [place] [address] PCP - General Family Medicine 05/05/18 Elevator Attendant Relationship Specialty Start Date End Date Jamari Lima DO [address] [place] [address] PCP - General Family Medicine 05/05/18 Elevator Attendant Relationship Specialty Start Date End Date Jamari Lima DO [address] [place] [address] PCP - General Family Medicine 05/05/18 Elevator Attendant Relationship Specialty Start Date End Date Jamari Lima DO [address] [place] [address] PCP - General Family Medicine 05/05/18 Elevator Attendant Relationship Specialty Start Date End Date Jamari LimaDO [address] [place] [address] PCP - General Family Medicine 05/05/18 Elevator Attendant Relationship Specialty Start Date End Date LimaJamari luis Khushi, DO [address] [place] [address] PCP - General Family Medicine 05/05/18 FOR [...] BE BASED ON THE PRIMARY CLINICAL RECORDS. [employer] provides no warranty or guarantee of the accuracy or completeness of information in this document.
--- NOTE | 2023-07-16 23:02 | ECHOD_ITS ---
Reason For Study: Elevated troponin, SOB Procedure This was a 2D Doppler, Color Flow transthoracic echocardiogram. Exam performed portable in patient room. Left Ventricle Normal LV size. 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 Recommend cardiac MRI for further evaluation. The estimated ejection fraction is 35 %. Moderate global left ventricular systolic dysfunction. Normal diastololic function. Right Ventricle Normal RV size. Normal systolic function. Atria The left and right atria are normal. Mitral Valve The mitral valve is structurally normal. No prolapse or stenosis seen. Trivial mitral valve insufficiency. Tricuspid Valve Normal tricuspid valve. Unable to estimate RV systolic pressure due to insufficient tricuspid regurgitant envelope. Aortic Valve Trisinus/trileaflet aortic valve. Trivial aortic valve insufficiency. Pulmonic Valve Normal pulmonic valve. Mild (1+) pulmonic valve insufficiency. Great Vessels Normal aortic root. Pericardium/Pleural No pericardial effusion. MMode/2D Measurements & Calculations LVIDd: 5.4 cm IVSd: 0.67 cm Ao root diam: 2.7 cm LVIDs: 4.2 cm LVPWd: 0.74 cm RVDd: 2.7 cm FS: 22.7 % LAV(MOD-bp): 27.0 ml LVAd ap4: 26.9 cm2 LVAd ap2: 29.6 cm2 LAV(MOD-bp) Indexed: 20.7 ml/m2 LVLd ap4: 7.4 cm LVLd ap2: 8.2 cm LAV(MOD-sp2): 27.3 ml EDV(MOD-sp4): 82.8 ml EDV(MOD-sp2): 93.4 ml LAV(MOD-sp4): 22.8 ml EDV(sp4-el): 82.7 ml EDV(sp2-el): 90.1 ml LVAs ap4: 20.6 cm2 LVAs ap2: 22.4 cm2 LVLs ap4: 6.7 cm LVLs ap2: 7.4 cm ESV(MOD-sp4): 53.1 ml ESV(MOD-sp2): 58.4 ml ESV(sp4-el): 53.7 ml ESV(sp2-el): 57.2 ml EF(MOD-sp4): 35.9 % EF(MOD-sp2): 37.5 % EF(sp4-el): 35.1 % SV(MOD-sp4): 29.7 ml SV(MOD-sp2): 35.0 ml SV(sp4-el): 29.0 ml LA dimension(2D): 2.3 cm LA A4 area: 12.3 cm2 RA A4 area: 9.5 cm2 TAPSE: 1.9 cm Doppler Measurements & Calculations MV E max asher: 61.7 cm/sec Lat Peak E' Asher: 15.7 cm/sec Med Peak E' Asher: 9.6 cm/sec MV A max asher: 41.4 cm/sec E/E' lat: 3.9 E/E' med: 6.4 MV E/A: 1.5 Ao V2 max: 110.2 cm/sec LV V1 max: 83.3 cm/sec Ao max P.9 mmHg LV V1 max P.8 mmHg Ao V2 mean: 81.2 cm/sec LV V1 mean P.7 mmHg Ao mean P.0 mmHg LV V1 mean: 62.1 cm/sec Ao V2 VTI: 24.1 cm LV V1 VTI: 17.3 cm AV (velocity ratio): 0.72 ECHO/Echo Complete Interpretation Summary The estimated ejection fraction is 35 %. Moderate global left ventricular systolic dysfunction. Normal diastololic function. 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 Recommend cardiac MRI for further evaluation. Ordering Physician: Kaushal Noonan Referring Physician: Jamari Zhang Performed By: Jennifer Perry RDCS
[2023-07-16] MEDS: Atorvastatin Calcium 20 MG Tablet PO (23:51)
[2023-07-16] MEDS: Potassium Chloride Oral Tablet 20 MEQ 60 MEQ PO (23:51)
[2023-07-16] MEDS: Enoxaparin 40 MG/0.4 ML Syringe SC (23:51)
[2023-07-16] MEDS: 0.9% Normal Saline (1000mL) 1,000 ML 70 ML IV (23:52)
[2023-07-16 23:53] LABS: Iron 10 ug/dL (50-170); Iron Binding Capacity,Total 309 ug/dL (250-450); PERCENT IRON SATURATION 3.2 % (15.0-55.0)
[2023-07-17] VITALS (7 sets, daily range): BP systolic 91–100; BP diastolic 62–72; PULSE 73–83; RESP 18; TEMP 36.6–37.9; O2SAT 96–99; BMI 16.0
[2023-07-17 06:24] LABS: Absolute Lymphocyte Count 1.33 X10^3/uL (0.83-4.51); Absolute Neutrophil Count 1.5 X10^3/uL (2.0-7.7); Basophil# 0.01 X10^3/uL; Basophil% 0.3 % (0-1); Hematocrit 26.3 % (37-47); Hemoglobin 7.8 g/dL (12.0-15.0); Lymphocyte # 1.33 X10^3/ul (0.83-4.51); Lymphocyte % 42.5 % (19-41); Mean Corp Hgb Conc 29.7 g/dL (32-36); Mean Corpuscular Hgb 22.8 pg (27.0-32.0); Mean Corpuscular Volume 76.9 fL (81-99); Mean Platelet Vol. 10.9 fl (6.2-12.0); Monocyte# 0.24 X10^3/uL; Monocyte% 7.7 % (0-10); NRBC Flagged by Analyzer 0 % (0-5); Neutrophil # 1.54 X10^3/uL (2.7-7.7); Neutrophil % 49.2 % (47-70); POSITIVE MORPHOLOGY YES; Platelet Count 116 K/mm3 (150-450); RBC Distribution Width CV 17.3 % (11.6-14.6); Red Blood Count 3.42 M/mm3 (4.2-5.4); White Blood Count 3.1 K/mm3 (4.4-11.0)
[2023-07-17 07:09] LABS: ALB/GLOB Ratio 0.8 RATIO (0.9-2.4); AST(SGOT) 32 U/L (15-37); Alanine Aminotransfer ALT/SGPT 25 U/L (13-56); Albumin, Serum 2.6 g/dL (3.2-5.0); Alkaline Phosphatase 52 U/L (45-117); Anion Gap 1 (5-15); BUN 6 mg/dL (7-18); BUN/Creat Ratio 12.4 RATIO (10-20); Calcium,Total 8.1 mg/dL (8.5-10.1); Chloride 119 mmol/L (98-107); Creatinine, Serum 0.48 mg/dL (0.55-1.02); EST Glomerular Filtration Rate 157 mL/min (>60); Est Glom Filt Rate - Afr Amer 190 mL/min (>60); Globulin 3.2 g/dL (2.2-4.2); Glucose 97 mg/dL (74-106); Magnesium 2.5 mg/dL (1.6-2.6); Phosphorus 2.3 mg/dL (2.5-4.9); Protein, Total 5.8 g/dL (6.4-8.2); Sodium Level 146 mmol/L (136-145); Thyroid Stim Hormone (TSH) 0.64 uIU/mL (0.358-3.74); Troponin-I HS 65 pg/mL (3.0-54.0)
[2023-07-17 07:13] LABS: Differential Indicated SCAN CRITERIA MET
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
[2023-07-17 08:19] LABS: Vitamin B12 827 pg/mL (211-911)
[2023-07-17 08:34] LABS: Ferritin 29 ng/mL (8-252); Iron 16 ug/dL (50-170); Iron Binding Capacity,Total 300 ug/dL (250-450); PERCENT IRON SATURATION 5.3 % (15.0-55.0)
[2023-07-17 08:35] LABS: HIV - WCH Non-Reactive (Nonreactive)
--- NOTE | 2023-07-17 08:51 | PN.HOSP_ITS ---
Reason for Visit Reason for Visit: Diagnoses Hypokalemia (07/16/23) Infective myocarditis (07/16/23) Myocarditis, unspecified (07/16/23) Influenza due to other identified influenza virus with other respiratory manifestations (07/16/23) Other chest pain (07/16/23) Chest pain, unspecified (07/16/23) Other specified abnormal findings of blood chemistry (07/16/23) Subjective Subjective Patient with ongoing fatigue, malaise, body aches, dyspnea with any exertion, nonproductive cough and pleuritic chest discomfort gnosis. Discussed plan of care with patient as follow-up echocardiogram with notably reduced EF which cardiology feels is directly related to recent influenza infection with planned initiation of Toprol and low-dose spironolactone with planned follow-up echocardiogram in 3 months. Patient denies fevers, chills, abdominal pain. Objective Data Objective Data Vital Signs: Vital Signs Temp Pulse Resp BP Pulse Ox O2 Del Method 98.3 F 77 18 100/65 96 Room Air 07/17/23 04:29 07/17/23 04:29 07/17/23 04:29 07/17/23 04:29 07/17/23 07:42 07/17/23 07:50 Oxygen Delivery Method Room Air Weight: 84 lb 10.52 oz Body Mass Index (BMI) 16.0 Intake & Output: Intake and Output for Last 24 Hours 07/15/23 07/16/23 07/17/23 23:59 23:59 23:59 Intake Total 1000 / 1240 240 / 240 Balance 1000 / 1240 240 / 240 Lab / Micro Data 07/17/23 04:33 07/17/23 04:33 Labs: Laboratory Results - last 24 hr 07/16/23 17:45: WBC 3.6 L, RBC 3.66 L, Hgb 8.3 L, Hct 27.9 L, MCV 76.2 L, MCH 22.7 L, MCHC 29.7 L, RDW Std Deviation 47.5 H, RDW Coeff of Vandana 16.9 H, Plt Count 106 L, MPV 10.2, Immature Gran % (Auto) 0.000, Neut % (Auto) 67.3, Lymph % (Auto) 25.1, [place] % (Auto) 7.3, Eos % (Auto) 0.0, Baso % (Auto) 0.3, Absolute Neuts (auto) 2.4, Absolute Lymphs (auto) 0.90, Nucleated RBC % 0, Sodium 142, Potassium 2.8 L, Chloride 110 H, Carbon Dioxide 29.0, Anion Gap 3 L, BUN 9, Creatinine 0.61, Estim Creat Clear Calc 81.54, Est GFR (MDRD) Af Amer 144, Est GFR (MDRD) Non-Af 119, BUN/Creatinine Ratio 14.7, Glucose 96, Calcium 8.3 L, Total Bilirubin 0.20, AST 30, ALT 24, Alkaline Phosphatase 51, Troponin I High Sens 62 H, B-Natriuretic Peptide 17.7, Total Protein 6.5, Albumin 3.0 L, Globulin 3.5, Albumin/Globulin Ratio 0.9, Lipase 50 07/16/23 20:05: Iron 10 L, TIBC 309, Iron Saturation 3.2 L, Troponin I High Sens 62 H, Folate 11.70 07/17/23 04:33: WBC 3.1 L, RBC 3.42 L, Hgb 7.8 L, Hct 26.3 L, MCV 76.9 L, MCH 22.8 L, MCHC 29.7 L, RDW Std Deviation 49.0 H, RDW Coeff of Vandana 17.3 H, Plt Count 116 L, MPV 10.9, Immature Gran % (Auto) 0.300, Neut % (Auto) 49.2, Lymph % (Auto) 42.5 H, [place] % (Auto) 7.7, Eos % (Auto) 0.0, Baso % (Auto) 0.3, Absolute Neuts (auto) 1.5 L, Absolute Lymphs (auto) 1.33, Nucleated RBC % 0, Sodium 146 H , Potassium 4.0, Chloride 119 H, Carbon Dioxide 26.0, Anion Gap 1 L, BUN 6 L, Creatinine 0.48 L, Estim Creat Clear Calc 102.00, Est GFR (MDRD) Af Amer 190, Est GFR (MDRD) Non-Af 157, BUN/Creatinine Ratio 12.4, Glucose 97, Calcium 8.1 L, Phosphorus 2.3 L, Magnesium 2.5, Iron 16 L, TIBC 300, Iron Saturation 5.3 L, Ferritin 29, Total Bilirubin 0.20, AST 32, ALT 25, Alkaline Phosphatase 52, Troponin I High Sens 65 H, Total Protein 5.8 L, Albumin 2.6 L, Globulin 3.2, Albumin/Globulin Ratio 0.8 L, Vitamin B12 827, TSH 0.64, HIV 1&2 Antibody Non- Reactive Micro: Microbiology 07/16/23 23:40 Mucosa - Nasopharyngeal Respiratory Panel (PCR) - Final Influenzae B Radiography Diagnostic Testing: Radiology Impression Chest X-Ray 07/16/23 17:50 IMPRESSION: No acute findings in the chest. Electronically Signed: Hu Hills DO at 18:04 EST , Chest CTA 07/16/23 18:51 IMPRESSION: No acute findings in the visualized arteries of the chest. Electronically Signed: Hu Hills DO at 19:47 EST , Physical Exam Narrative Physical Examination: General: Awake, alert, oriented x 3 and cooperative, seated upright in the PCU bed in no apparent distress, fatigued and ill-appearing. Skin: Normal color, normal turgor, no icterus, no cyanosis. HEENT: AT/NC, EOMI, PERRLA, moderately dry MM, no carotid bruits or JVD noted. Lungs: CTA bilaterally, moderate effort, mild decrease BL bases, no rales, ronchi or wheezing. Heart: Regular rate and rhythm; no gallop, rub audible. Abdomen: Soft, thin habitus, NTTP, ND, normal BS. Extremities: No cyanosis, clubbing, or edema. Neurological: Patient awake, alert, oriented as noted, cognitive function intact; pupils equally reactive to light and accommodation, cranial nerves II- XII grossly normal, moving all 4 extremities, no focal deficits, strength moderately global decrease secondary to acute presentation. Psychiatric: Affect appears fatigued, ill-appearing, no acute evidence of depressive or anxiety feelings but does have underlying history. Assessment & Plan Assessment/Plan (1) Elevated troponin: PLAN: Plan The patient is a 32 y/o F w/ PMHx: Hyperyroidism, Chronic anemia, Depression and Anxiety, recent diagnosis influenza B 07/13/2023 who presents to the [facility] ED on 07/16/23 with history of onset of cough, pleuritic chest discomfort starting approximately 3 days prior progressively worsening with cough noted to be nonproductive although discomfort in the chest worse with any attempted recline or leaning forward or coughing with associated nausea with bilious emesis prompting eventual ED evaluation. #1. Acute Myocarditis secondary to Recent Acute Viral Influenza B Illness with mildly elevated troponin associated, reduced EF: ED Evaluation included initial troponin 62, potassium 2.8, CBC with leukopenia 3.6, anemia with hemoglobin 8.3 and thrombocytopenia with platelet 106. 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 Cardiology also notes possible addition ARB if able to tolerate. #2. Pancytopenia, worsening anemia with history of underlying iron deficiency anemia, new onset thrombocytopenia, leukopenia: Suspect secondary to recent acute viral illness, reactive, does have underlying chronic anemia thus is pancytopenic, continue treatment and evaluation of acute illness related chest discomfort as noted above #1. Hemoglobin 03/02/2211 however she has vacillated previously and been down into the 7 range even 6.7 10/01/2018, obtained iron panel/ferritin/guiac requested to be cautious. Fe sat 5.3%, ferritin 29, TIBC 300, Fe 16. Folic acid 11.70, B12 827. HIV negative. Continue chronic iron supplementation. Will refer patient to hematology at discharge for more close monitoring of her chronic anemia, consider IV Fe transfusions. #3. Hypothyroidism, chart reported history: TSH 0.64, not on any chronic regimen, encourage continued outpatient follow-up as previously arranged. #4. Anxiety and depression: We will continue patient home low-dose sertraline regimen. #5. DVT prophylaxis: Lovenox initiated plan admission however if hemoglobin decreases further we will hold. Charges/Coding Visit Charges Inpatient E&M: 38733 Subs Hosp L3
[2023-07-17 09:08] LABS: Differential Comment SCANNED; Reactive Lymphocyte 1+
[2023-07-17] MEDS: Ferrous Sulfate 325 MG Tablet PO (09:09)
[2023-07-17] MEDS: Ascorbic Acid 500 MG Tablet 1000 MG PO ×2 (09:10→22:55)
[2023-07-17] MEDS: Cholecalciferol (Vit D3) 125 MCG CAPSULE (5,000 UNITS) PO (09:10)
[2023-07-17] MEDS: Sertraline 50 MG Tablet 25 MG PO (09:10)
[2023-07-17] MEDS: Aspirin 81 MG TAB.CHEW 162 MG PO (09:10)
[2023-07-17] MEDS: Zinc Sulfate 50 mg zinc (220 mg) ORAL capsule PO (09:10)
[2023-07-17 09:40] LABS: Magnesium 2.5 mg/dL (1.6-2.6)
--- NOTE | 2023-07-17 11:50 | CASEMGMT ---
RENZO MARTINEZ Assessment: Face to Face with pt for initial transition planning/care coordination assessment. RN MICHELLE introduced self and role at [facility], pt voices understanding and consents to assessment. Pt is A&O x4 and answers all questions appropriately at this time. Pt lying in bed in no distress with mother in law at bedside. Pt agreeable to assessment with mil present. Care providers, pharmacy, and demographics verified/updated. Admitting Dx:elevated troponin with suspected myocarditis PCP:Vicente Specialists:Denies Preferred Pharmacy:[facility] Insurance:[facility] Prescription Benefit: yes LNOK:Geremias Marino, sig other; viviana Piper Living Arrangements: Pt lives with sig other and 5 children in a two story home with 2 steps to enter. Pt reports she is I in ADL's and denies concerns at home. Transportation: Pt drives self and denies concerns with transportation. DME:Denies HHC/SNF:Denies hx of Pt states no concerns with going home at time of dc. Pt states no further concerns/needs. CM to follow. Advised pt to ask CM if any further question/concerns/needs arise, voices understanding. Pt Goal:Home Plan:Home
--- NOTE | 2023-07-17 15:49 | PN.CARD_ITS ---
Subjective Subjective Patient is resting comfortably in the bed. Her echocardiogram results came back with a global LV dysfunction EF of 35%. Given her troponins of 60-65 and her symptoms starting 5 to 7 days ago this is suggestive of influenza myocarditis. I discussed this in detail with the patient and her on the phone. Objective Data Vital Signs: Vital Signs Temp Pulse Resp BP Pulse Ox O2 Del Method 97.8 F 73 18 96/65 99 Room Air 07/17/23 15:12 07/17/23 15:12 07/17/23 15:12 07/17/23 15:12 07/17/23 15:12 07/17/23 15:12 Oxygen Delivery Method Room Air Weight: 84 lb 10.52 oz Body Mass Index (BMI) 16.0 Intake & Output: Intake and Output for Last 24 Hours 07/15/23 07/16/23 07/17/23 23:59 23:59 23:59 Intake Total 1000 / 1240 2069 Balance 1000 / 1240 2069 Lab / Micro Data 07/17/23 04:33 07/17/23 04:33 Labs: Laboratory Results - last 24 hr 07/16/23 17:45: WBC 3.6 L, RBC 3.66 L, Hgb 8.3 L, Hct 27.9 L, MCV 76.2 L, MCH 22.7 L, MCHC 29.7 L, RDW Std Deviation 47.5 H, RDW Coeff of Vandana 16.9 H, Plt Count 106 L, MPV 10.2, Immature Gran % (Auto) 0.000, Neut % (Auto) 67.3, Lymph % (Auto) 25.1, [place] % (Auto) 7.3, Eos % (Auto) 0.0, Baso % (Auto) 0.3, Absolute Neuts (auto) 2.4, Absolute Lymphs (auto) 0.90, Nucleated RBC % 0, Sodium 142, Potassium 2.8 L, Chloride 110 H, Carbon Dioxide 29.0, Anion Gap 3 L, BUN 9, Creatinine 0.61, Estim Creat Clear Calc 81.54, Est GFR (MDRD) Af Amer 144, Est GFR (MDRD) Non-Af 119, BUN/Creatinine Ratio 14.7, Glucose 96, Calcium 8.3 L, Total Bilirubin 0.20, AST 30, ALT 24, Alkaline Phosphatase 51, Troponin I High Sens 62 H, B-Natriuretic Peptide 17.7, Total Protein 6.5, Albumin 3.0 L, Globulin 3.5, Albumin/Globulin Ratio 0.9, Lipase 50 07/16/23 20:05: Iron 10 L, TIBC 309, Iron Saturation 3.2 L, Troponin I High Sens 62 H, Folate 11.70 07/17/23 04:33: WBC 3.1 L, RBC 3.42 L, Hgb 7.8 L, Hct 26.3 L, MCV 76.9 L, MCH 22 .8 L, MCHC 29.7 L, RDW Std Deviation 49.0 H, RDW Coeff of Vandana 17.3 H, Plt Count 116 L, MPV 10.9, Immature Gran % (Auto) 0.300, Neut % (Auto) 49.2, Lymph % (Auto) 42.5 H, [place] % (Auto) 7.7, Eos % (Auto) 0.0, Baso % (Auto) 0.3, Absolute Neuts (auto) 1.5 L, Absolute Lymphs (auto) 1.33, Nucleated RBC % 0, Differential Comment SCANNED, Reactive Lymphocytes 1+, Sodium 146 H, Potassium 4.0, Chloride 119 H, Carbon Dioxide 26.0, Anion Gap 1 L, BUN 6 L, Creatinine 0.48 L, Estim Creat Clear Calc 102.00, Est GFR (MDRD) Af Amer 190, Est GFR (MDRD) Non-Af 157, BUN/Creatinine Ratio 12.4, Glucose 97, Calcium 8.1 L, Phosphorus 2.3 L, Magnesium 2.5 07/17/23 04:33: Magnesium 2.5, Iron 16 L 07/17/23 04:33: Iron Cancelled, TIBC 300 07/17/23 04:33: TIBC Cancelled, Iron Saturation 5.3 L 07/17/23 04:33: Iron Saturation Cancelled, Ferritin 29 07/17/23 04:33: Ferritin Cancelled, Total Bilirubin 0.20, AST 32, ALT 25, Alkaline Phosphatase 52, Troponin I High Sens 65 H, Total Protein 5.8 L, Albumin 2.6 L, Globulin 3.2, Albumin/Globulin Ratio 0.8 L, Vitamin B12 827, TSH 0.64, HIV 1&2 Antibody Non-Reactive Micro: Microbiology 07/16/23 23:40 Mucosa - Nasopharyngeal Respiratory Panel (PCR) - Final Influenzae B Cardiology Labs/Tests 07/16/23 17:45: WBC 3.6 L, RBC 3.66 L, Hgb 8.3 L, Hct 27.9 L, MCV 76.2 L, MCH 22.7 L, MCHC 29.7 L, Plt Count 106 L, MPV 10.2, Immature Gran % (Auto) 0.000, Neut % (Auto) 67.3, Lymph % (Auto) 25.1, [place] % (Auto) 7.3, Eos % (Auto) 0.0, Baso % (Auto) 0.3, Absolute Neuts (auto) 2.4, Nucleated RBC % 0, Sodium 142, Potassium 2.8 L, Chloride 110 H, Carbon Dioxide 29.0, Anion Gap 3 L, BUN 9, Cre atinine 0.61, Est GFR (MDRD) Af Amer 144, Est GFR (MDRD) Non-Af 119, BUN/Creatinine Ratio 14.7, Glucose 96, Calcium 8.3 L, Total Bilirubin 0.20, B- Natriuretic Peptide 17.7 07/16/23 20:05: Iron 10 L, TIBC 309, Iron Saturation 3.2 L 07/17/23 04:33: WBC 3.1 L, RBC 3.42 L, Hgb 7.8 L, Hct 26.3 L, MCV 76.9 L, MCH 22.8 L, MCHC 29.7 L, Plt Count 116 L, MPV 10.9, Immature Gran % (Auto) 0.300, Neut % (Auto) 49.2, Lymph % (Auto) 42.5 H, [place] % (Auto) 7.7, Eos % (Auto) 0.0, Baso % (Auto) 0.3, Absolute Neuts (auto) 1.5 L, Nucleated RBC % 0, Sodium 146 H, Potassium 4.0, Chloride 119 H, Carbon Dioxide 26.0, Anion Gap 1 L, BUN 6 L, Creatinine 0.48 L, Est GFR (MDRD) Af Amer 190, Est GFR (MDRD) Non-Af 157, BUN/Creatinine Ratio 12.4, Glucose 97, Calcium 8.1 L, Phosphorus 2.3 L, Magnesium 2.5 02/05/24 04:33: Magnesium 2.5, Iron 16 L 07/17/23 04:33: Iron Cancelled, TIBC 300 07/17/23 04:33: TIBC Cancelled, Iron Saturation 5.3 L 07/17/23 04:33: Iron Saturation Cancelled, Ferritin 29 07/17/23 04:33: Ferritin Cancelled, Total Bilirubin 0.20 Rhythm: EKG: ECHO: Stress Test: Cardiac Cath: PCI: CT Surgery: Holter monitor: EPS: PPM: CXR: Chest CT Scan: Radiography Diagnostic Testing: Radiology Impression Chest X-Ray 07/16/23 17:50 IMPRESSION: No acute findings in the chest. Electronically Signed: Hu SnyderDO salvador at 18:04 EST , Chest CTA 07/16/23 18:51 IMPRESSION: No acute findings in the visualized arteries of the chest. Electronically Signed: Hu GarcíaJoann Hills DO at 19:47 EST , Physical Exam Const oriented x3 HEENT normocephalic Eyes Eyes Narrative: The patient wears corrective lenses Neck no JVD and no carotid bruits Chest Chest Narrative: Chest is thin with a prominent right clavicle status postsurgical repair from her fracture Resp normal respiratory effort Auscultation: crackles bilateral base Cardio regular rate, regular rhythm, S1 normal heart sound, S2 normal heart sound, no murmurs, no rub, no gallops and no JVD GI soft to palpation Extremity normal to inspection General Extremity: Negative for edema Psych mental status grossly normal Assessment & Plan Assessment/Plan (1) Myocarditis: QUALIFIERS: Myocarditis type: infective Infective myocarditis organism: viral Chronicity: acute Qualified Code(s): I40.0 - Infective myocarditis PLAN: The patient's echo shows an EF of 35%. We will institute guideline directed medical therapy in a tailored fashion due to her relative low blood pressure. This does not appear to be giant cell myocarditis and therefore steroid therapy would not be indicated at this point in time given the low troponins of 60-65. We will institute spironolactone 12 and half milligrams later this afternoon. We will add metoprolol to tartrate 12 and half milligrams twice daily starting later this evening. Blood pressure and heart rate parameters were put in place for holding. (2) Influenza B: PLAN: This is presumed to be influenza B myocarditis. PLAN: Plan Titrate spironolactone, beta-charles and ARB therapy as blood pressure and heart rate will tolerate.
[2023-07-17] MEDS: Spironolactone 25 MG Tablet 12.5 MG PO (16:32)
[2023-07-17] MEDS: 0.9% Saline Lock 10 ML Syringe IV ×2 (19:50→23:01)
[2023-07-17] MEDS: Potassium Phosphate 21 MM in 0.9% Normal Saline (250mL Bag) 250 ML 84 MM IV (19:50)
[2023-07-17] MEDS: Metoprolol Tartrate 25 MG Tablet 12.5 MG PO (22:55)
[2023-07-17] MEDS: Atorvastatin Calcium 20 MG Tablet PO (22:55)
[2023-07-17] MEDS: Benzonatate 100 MG Capsule PO (22:56)
[2023-07-17] MEDS: Acetaminophen 325 MG Tablet 650 MG PO (22:56)
[2023-07-17] MEDS: Enoxaparin 40 MG/0.4 ML Syringe SC (22:57)
[2023-07-18 03:08] VITALS: BMI 15.9
[2023-07-18 03:27] VITALS: BP 95/68; PULSE 70; RESP 18; TEMP 36.6; O2SAT 96
[2023-07-18 05:25] LABS: Absolute Lymphocyte Count 1.34 X10^3/uL (0.83-4.51); Absolute Neutrophil Count 2.2 X10^3/uL (2.0-7.7); Basophil# 0.01 X10^3/uL; Basophil% 0.3 % (0-1); Eosinophil# 0.01 X10^3/uL; Eosinophils% 0.3 % (0-5); Hematocrit 27.1 % (37-47); Lymphocyte # 1.34 X10^3/ul (0.83-4.51); Lymphocyte % 33.8 % (19-41); Mean Corp Hgb Conc 29.5 g/dL (32-36); Mean Corpuscular Hgb 22.5 pg (27.0-32.0); Mean Corpuscular Volume 76.1 fL (81-99); Mean Platelet Vol. 10.2 fl (6.2-12.0); Monocyte# 0.43 X10^3/uL; Monocyte% 10.9 % (0-10); NRBC Flagged by Analyzer 0 % (0-5); Neutrophil # 2.16 X10^3/uL (2.7-7.7); Neutrophil % 54.4 % (47-70); POSITIVE MORPHOLOGY YES; Platelet Count 161 K/mm3 (150-450); RBC Distribution Width CV 16.9 % (11.6-14.6); RBC Distribution Width SD 47.6 fl (35.1-43.9); Red Blood Count 3.56 M/mm3 (4.2-5.4)
[2023-07-18 05:29] LABS: Differential Indicated SCAN CRITERIA MET
[2023-07-18 05:43] LABS: ALB/GLOB Ratio 0.8 RATIO (0.9-2.4); AST(SGOT) 28 U/L (15-37); Alanine Aminotransfer ALT/SGPT 25 U/L (13-56); Albumin, Serum 2.8 g/dL (3.2-5.0); Alkaline Phosphatase 66 U/L (45-117); Anion Gap 3 (5-15); BUN 4 mg/dL (7-18); BUN/Creat Ratio 7.5 RATIO (10-20); Calcium,Total 8.7 mg/dL (8.5-10.1); Chloride 108 mmol/L (98-107); Creatinine, Serum 0.53 mg/dL (0.55-1.02); EST Glomerular Filtration Rate 141 mL/min (>60); Est Glom Filt Rate - Afr Amer 171 mL/min (>60); Globulin 3.7 g/dL (2.2-4.2); Glucose 96 mg/dL (74-106); Potassium 3.4 mmol/L (3.5-5.1); Protein, Total 6.5 g/dL (6.4-8.2); Sodium Level 139 mmol/L (136-145)
[2023-07-18 06:26] LABS: Ovalocyte 2+
--- NOTE | 2023-07-18 06:28 | PCM.PN.HOSP ---
Reason for Visit Reason for Visit: Diagnoses Hypokalemia (07/16/23) Infective myocarditis (07/16/23) Acute myocarditis, unspecified (07/16/23) Myocarditis, unspecified (07/16/23) Influenza due to other identified influenza virus with other respiratory manifestations (07/16/23) Other chest pain (07/16/23) Chest pain, unspecified (07/16/23) Other specified abnormal findings of blood chemistry (07/16/23) Subjective Subjective Patient with no acute events overnight per self and per nursing report. She was up and moving to use the restroom with no lightheadedness or dizziness given recent blood pressure medication additions. She did have a low-grade temperature however repeat was normal and she notes feeling improved. She notes her nausea has abated and she has tolerated food with less body aches, less fatigue, improved less and coughing. Patient denies fevers, chills, nausea, emesis, abdominal pain, chest pain or worsening dyspnea. Objective Data Objective Data Vital Signs: Vital Signs Temp Pulse Resp BP Pulse Ox O2 Del Method 97.9 F 70 18 95/68 96 Room Air 07/18/23 03:27 07/18/23 03:27 07/18/23 03:27 07/18/23 03:27 07/18/23 03:27 07/18/23 03:30 Oxygen Delivery Method Room Air Weight: 84 lb 3.465 oz Body Mass Index (BMI) 15.9 Intake & Output: Intake and Output for Last 24 Hours 07/16/23 07/17/23 07/18/23 23:59 23:59 23:59 Intake Total 1000 / 1240 2777 / 2777 Balance 1000 / 1240 2777 / 2777 Lab / Micro Data 07/18/23 04:57 07/18/23 04:57 Labs: Laboratory Results - last 24 hr 07/17/23 04:33: WBC 3.1 L, RBC 3.42 L, Hgb 7.8 L, Hct 26.3 L, MCV 76.9 L, MCH 22.8 L, MCHC 29.7 L, RDW Std Deviation 49.0 H, RDW Coeff of Vandana 17.3 H, Plt Count 116 L, MPV 10.9, Immature Gran % (Auto) 0.300, Neut % (Auto) 49.2, Lymph % (Auto) 42.5 H, [place] % (Auto) 7.7, Eos % (Auto) 0.0, Baso % (Auto) 0.3, Absolute Neuts (auto) 1.5 L, Absolute Lymphs (auto) 1.33, Nucleated RBC % 0, Differential Comment SCANNED, Reactive Lymphocytes 1+, Sodium 146 H, Potassium 4.0, Chloride 119 H, Carbon Dioxide 26.0, Anion Gap 1 L, BUN 6 L, Creatinine 0.48 L, Estim Creat Clear Calc 102.00, Est GFR (MDRD) Af Amer 190, Est GFR (MDRD) Non-Af 157, BUN/Creatinine Ratio 12.4, Glucose 97, Calcium 8.1 L, Phosphorus 2.3 L, Magnesium 2.5 07/17/23 04:33: Magnesium 2.5, Iron 16 L 07/17/23 04:33: Iron Cancelled, TIBC 300 07/17/23 04:33: TIBC Cancelled, Iron Saturation 5.3 L 07/17/23 04:33: Iron Saturation Cancelled, Ferritin 29 07/17/23 04:33: Ferritin Cancelled, Total Bilirubin 0.20, AST 32, ALT 25, Alkaline Phosphatase 52, Troponin I High Sens 65 H, Total Protein 5.8 L, Albumin 2.6 L, Globulin 3.2, Albumin/Globulin Ratio 0.8 L, Vitamin B12 827, TSH 0.64, HIV 1&2 Antibody Non-Reactive 07/18/23 04:57: WBC 4.0 L, RBC 3.56 L, Hgb 8.0 L, Hct 27.1 L, MCV 76.1 L, MCH 22.5 L, MCHC 29.5 L, RDW Std Deviation 47.6 H, RDW Coeff of Vandana 16.9 H, Plt Count 161, MPV 10.2, Immature Gran % (Auto) 0.300, Neut % (Auto) 54.4, Lymph % (Auto) 33.8, [place] % (Auto) 10.9 H, Eos % (Auto) 0.3, Baso % (Auto) 0.3, Absolute Neuts (auto) 2.2, Absolute Lymphs (auto) 1.34, Nucleated RBC % 0, Diff Path Review May foll, Ovalocytes 2+, Sodium 139, Potassium 3.4 L, Chloride 108 H, Carbon Dioxide 28.0, Anion Gap 3 L, BUN 4 L, Creatinine 0.53 L, Estim Creat Clear Calc 91.90, Est GFR (MDRD) Af Amer 171, Est GFR (MDRD) Non-Af 141, BUN/Creatinine Ratio 7.5 L, Glucose 96, Calcium 8.7, Total Bilirubin 0.30, AST 28, ALT 25, Alkaline Phosphatase 66, Total Protein 6.5, Albumin 2.8 L, Globulin 3.7, Albumin/Globulin Ratio 0.8 L Micro: Microbiology 07/16/23 23:40 Mucosa - Nasopharyngeal Respiratory Panel (PCR) - Final Influenzae B Radiography Diagnostic Testing: Radiology Impression Echocardiogram 07/16/23 23:02 Interpretation Summary The estimated ejection fraction is 35 %. Moderate global left ventricular systolic dysfunction. Normal diastololic function. 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 Recommend cardiac MRI for further evaluation. Ordering Physician: Kaushal Noonan Referring Physician: Jamari Zhang Performed By: Jennifer Perry RDCS Physical Exam Narrative Physical Examination: General: Awake, alert, oriented x 3 and cooperative, seated upright in the PCU bed in no apparent distress, improved appearance from day prior. Skin: Normal color, normal turgor, no icterus, no cyanosis. HEENT: AT/NC, EOMI, PERRLA, MMM, no carotid bruits or JVD noted. Lungs: Diminished, greater bases, still poor inspiratory effort, no evidence of any distress, no rales, ronchi or wheezing. Heart: Regular rate and rhythm; no gallop, rub audible. Abdomen: Soft, thin habitus, NTTP, ND, normal BS. Extremities: No cyanosis, clubbing, or edema. Neurological: Patient awake, alert, oriented as noted, cognitive function intact; pupils equally reactive to light and accommodation, cranial nerves II-XII grossly normal, moving all 4 extremities, no focal deficits, strength improving, mildly to moderately global decrease secondary to acute presentation. Psychiatric: Affect appears improved, less fatigued, more interactive, no acute evidence of depressive or anxiety feelings but does have underlying history. Assessment & Plan Assessment/Plan (1) Elevated troponin: PLAN: Plan The patient is a 32 y/o F w/ PMHx: Hyperyroidism, Chronic anemia, Depression and Anxiety, recent diagnosis influenza B 07/13/2023 who presents to the [facility] ED on 07/16/23 with history of onset of cough, pleuritic chest discomfort starting approximately 3 days prior progressively worsening with cough noted to be nonproductive although discomfort in the chest worse with any attempted recline or leaning forward or coughing with associated nausea with bilious emesis prompting eventual ED evaluation. #1. Acute Myocarditis secondary to Recent Acute Viral Influenza B Illness with mildly elevated troponin associated, reduced EF: ED Evaluation included initial troponin 62, potassium 2.8, CBC with leukopenia 3.6, anemia with hemoglobin 8.3 and thrombocytopenia with platelet 106. 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 Cardiology also notes possible addition ARB if able to tolerate. 07/18/23 Patient reports feeling improved, tolerating new medications started the evening prior and dosed also this AM. Per discussion with Cardiology will discharge to home on metoprolol and spironolactone, will d/c asa and statin. #2. Pancytopenia, worsening anemia with history of underlying iron deficiency anemia, new onset thrombocytopenia, leukopenia: Suspect secondary to recent acute viral illness, reactive, does have underlying chronic anemia thus is pancytopenic, continue treatment and evaluation of acute illness related chest discomfort as noted above #1. Fe sat 5.3%, ferritin 29, TIBC 300, Fe 16. Folic acid 11.70, B12 827. HIV negative. Continue chronic iron supplementation. Will refer patient to hematology at discharge for more close monitoring of her chronic anemia to consider IV Fe transfusions. 07/18/23 CBC with WBC 4.0, hemoglobin 8.0, MCV 76.1, platelet 161, improving plts count and stable Hgb. #3. Hypokalemia: Admission K+ 3.4, magnesium level normal 2.5, supplementation given. #4. Hypothyroidism, chart reported history: TSH 0.64, not on any chronic regimen, encourage continued outpatient follow-up as previously arranged. #4. Anxiety and depression: We will continue patient home low-dose sertraline regimen. #5. DVT prophylaxis: Lovenox. Charges/Coding Visit Charges Inpatient E&M: 65699 Subs Hosp L2
[2023-07-18 07:46] VITALS: O2SAT 96
[2023-07-18 08:51] VITALS: BP 97/71; PULSE 81; RESP 18; TEMP 36.7; O2SAT 99
[2023-07-18] MEDS: Potassium Chloride Oral Tablet 20 MEQ 40 MEQ PO (08:53)
[2023-07-18] MEDS: Zinc Sulfate 50 mg zinc (220 mg) ORAL capsule PO (08:53)
[2023-07-18] MEDS: Sertraline 50 MG Tablet 25 MG PO (08:53)
[2023-07-18] MEDS: Ferrous Sulfate 325 MG Tablet PO (08:53)
[2023-07-18 08:54] VITALS: PULSE 81
[2023-07-18] MEDS: Ascorbic Acid 500 MG Tablet 1000 MG PO (08:54)
[2023-07-18] MEDS: Aspirin 81 MG TAB.CHEW 162 MG PO (08:54)
[2023-07-18] MEDS: Cholecalciferol (Vit D3) 125 MCG CAPSULE (5,000 UNITS) PO (08:54)
[2023-07-18] MEDS: Metoprolol Tartrate 25 MG Tablet 12.5 MG PO (08:54)
[2023-07-18] MEDS: Spironolactone 25 MG Tablet 12.5 MG PO (08:55)
[2023-07-18] MEDS: Enoxaparin 40 MG/0.4 ML Syringe SC (08:55)
--- NOTE | 2023-07-18 09:51 | PN.CARD_ITS ---
Subjective Subjective The patient is resting comfortably in the bed this morning she denies any PND orthopnea denies any lower extremity edema and has had no recurrent chest pain. She tolerated the spironolactone last evening and is instituting beta-charles therapy today. She has not been out of the bed to walk around yet. Objective Data Vital Signs: Vital Signs Temp Pulse Resp BP Pulse Ox O2 Del Method 98.1 F 81 18 97/71 99 Room Air 07/18/23 08:51 07/18/23 08:54 07/18/23 08:51 07/18/23 08:51 07/18/23 08:51 07/18/23 08:51 Oxygen Delivery Method Room Air Weight: 84 lb 3.465 oz Body Mass Index (BMI) 15.9 Intake & Output: Intake and Output for Last 24 Hours 07/16/23 07/17/23 07/18/23 23:59 23:59 23:59 Intake Total 1000 / 1240 2777 / 2777 Balance 1000 / 1240 2777 / 2777 Lab / Micro Data Attestation: I reviewed the patient's lab results. 07/18/23 04:57 07/18/23 04:57 Labs: Laboratory Results - last 24 hr 07/18/23 04:57: WBC 4.0 L, RBC 3.56 L, Hgb 8.0 L, Hct 27.1 L, MCV 76.1 L, MCH 22.5 L, MCHC 29.5 L, RDW Std Deviation 47.6 H, RDW Coeff of Vandana 16.9 H, Plt Count 161, MPV 10.2, Immature Gran % (Auto) 0.300, Neut % (Auto) 54.4, Lymph % (Auto) 33.8, [place] % (Auto) 10.9 H, Eos % (Auto) 0.3, Baso % (Auto) 0.3, Absolute Neuts (auto) 2.2, Absolute Lymphs (auto) 1.34, Nucleated RBC % 0, Diff Path Review May foll, Ovalocytes 2+, Sodium 139, Potassium 3.4 L, Chloride 108 H, Carbon Dioxide 28.0, Anion Gap 3 L, BUN 4 L, Creatinine 0.53 L, Estim Creat Clear Calc 91.90, Est GFR (MDRD) Af Amer 171, Est GFR (MDRD) Non-Af 141, BUN/Creatinine Ratio 7.5 L, Glucose 96, Calcium 8.7, Total Bilirubin 0.30, AST 28, ALT 25, Alkaline Phosphatase 66, Total Protein 6.5, Albumin 2.8 L, Globulin 3.7, Albumin/Globulin Ratio 0.8 L Micro: Microbiology 07/16/23 23:40 Mucosa - Nasopharyngeal Respiratory Panel (PCR) - Final Influenzae B Cardiology Labs/Tests 07/18/23 04:57: WBC 4.0 L, RBC 3.56 L, Hgb 8.0 L, Hct 27.1 L, MCV 76.1 L, MCH 22.5 L, MCHC 29.5 L, Plt Count 161, MPV 10.2, Immature Gran % (Auto) 0.300, Neut % (Auto) 54.4, Lymph % (Auto) 33.8, [place] % (Auto) 10.9 H, Eos % (Auto) 0.3, Baso % (Auto) 0.3, Absolute Neuts (auto) 2.2, Nucleated RBC % 0, Sodium 139, Potassium 3.4 L, Chloride 108 H, Carbon Dioxide 28.0, Anion Gap 3 L, BUN 4 L, Creatinine 0.53 L, Est GFR (MDRD) Af Amer 171, Est GFR (MDRD) Non-Af 141, BUN/Creatinine Ratio 7.5 L, Glucose 96, Calcium 8.7, Total Bilirubin 0.30 Rhythm: EKG: ECHO: Stress Test: Cardiac Cath: PCI: CT Surgery: Holter monitor: EPS: PPM: CXR: Chest CT Scan: Radiography Diagnostic Testing: Radiology Impression Echocardiogram 07/16/23 23:02 Interpretation Summary The estimated ejection fraction is 35 %. Moderate global left ventricular systolic dysfunction. Normal diastololic function. 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 Recommend cardiac MRI for further evaluation. Ordering Physician: Kaushal Noonan Referring Physician: Jamari Zhang Performed By: Jennifer Perry RDCS Physical Exam Const oriented x3 Constitutional Narrative: thin HEENT normocephalic Eyes EOMs intact bilaterally Neck no JVD and no carotid bruits Chest inspection of chest normal Resp normal respiratory effort Auscultation: Negative for rales or rhonchi Cardio regular rate, regular rhythm, S1 normal heart sound, S2 normal heart sound, no murmurs, no rub and no gallops GI soft to palpation Extremity no pedal edema Skin no rashes or lesions noted Psych mental status grossly normal Assessment & Plan Assessment/Plan (1) Cardiomyopathy: QUALIFIERS: Cardiomyopathy type: viral Qualified 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 She has tolerated institution of spironolactone and low-dose beta-charles therapy overnight. Her blood pressure and heart rate are tolerating the medications well she is 96-96 7% on room air she denies any dizziness shortness of breath PND orthopnea denies any chest discomfort. From a cardiovascular standpoint the patient can be discharged home on her c urrent medical regiment with the exception of she no longer needs statin or aspirin therapy. She should continue on the spironolactone and Lopressor at the current doses she will be evaluated in office in 2 weeks and we will evaluate her for titration of her beta-charles therapy and addition of low-dose angiotensin receptor charles with losartan. (2) Elevated troponin: PLAN: The elevated troponins were minimal at 60 and 65 this is consistent with a influenza B viral myocarditis. I do not feel this represents any ischemic etiology. PLAN: Plan 1. Discharge to home 2. Follow-up with Dr. Vogel ARTURO or Dr. Vogel in the office in 2 weeks. Will titrate beta-charles and add angiotensin receptor charles at that time. 3. Discontinue aspirin and statin therapy. 4. Will obtain 2D echocardiogram in 3 months to reevaluate the LV function after she is maximally titrated on LV dysfunction medical therapy. Charges/Coding Visit Charges Inpatient E&M: 42137 Subs Hosp L3
--- NOTE | 2023-07-18 10:06 | DCINST_ITS ---
Discharge Instructions Diet Discharge Diet: No restrictions Activity Discharge Activity: - (Encourage routine mild to moderate activity until re- evaluation per Cardiology.) May resume sexual activity in: 10-14 days Weight Bearing Status: Weight bearing as tolerated Dressing / Incision Call your doctor if you observe: Fever of 101 or Higher, Shortness of breath, Dizziness, Fainting spells, Chest pain and Increased palpitations (irregular heartbeat) Follow Up Care Test Results: Test results from this visit will be discussed in further detail at your follow- up appointment, if applicable. Discharge Plan Admission Admit Date/Time: 07/16/23 22:08 Primary Reason for Your Visit: Acute Influenza B Viral Myocarditis Attending Provider: Amy Villalba Primary Care Provider: Jamari Zhang Consulting Providers: Kaushal Noonan; Lobito Kwon Instructions Additional Instructions / Restrictions: Evaluation and treatment during admission: #1. Acute Myocarditis secondary to Recent Acute Viral Influenza B Illness: During the evaluation you had mildly elevated troponins (cardiac enzymes), low potassium which was corrected and your blood counts had a low white count and platelet count which related to your recent acute viral illness but will need to be followed up. No recent illness and your presentation there was concerns for acute myocarditis with ECHO obtained w/ EF 35%, moderately global LV systolic dysfunction, normal diastolic function, suspected LV noncompaction.urology started you on a low-dose metoprolol and spironolactone which be continued. If you have any difficulties taking these medications please immediately notify the cardiology office. They plan to see you again in 2 weeks with a likely follow- up echocardiogram in 3 months and possibly an outpatient cardiac MRI per their discretion. All regular medicines they may add additional medication in the office pending reevaluation. #2. Pancytopenia: Low white blood cell count, low hemoglobin level, low platelet count. You do have history of iron deficiency anemia. The low white count and platelet count are likely secondary to recent viral illness and should be improving. You will need to have repeat complete blood count with your primary care physician at follow-up. And consistent with iron deficiency anemia with continued iron supplementation. If again nature of your iron deficiency anemia upon discharge recommendation for follow-up with hematology for close continued evaluation. #3. Chart reported history of hypothyroidism: TSH was obtained during her admission and normal range thus we encourage continued outpatient follow-up to assure it is not necessary that you be on any medication. Discharge Orders/Prescriptions Prescriptions: New spironolactone 25 mg Tablet 12.5 mg PO DAILY 30 Days Qty: 15 1RF metoprolol tartrate 25 mg Tablet 12.5 mg PO BID 30 Days Qty: 30 1RF Continued ascorbic acid (vitamin C) [Vitamin C] 500 mg tablet 500 mg PO BID Slow Release Iron 142 mg (45 mg iron) tablet extended release 142 mg PO BID sertraline 25 mg tablet 25 mg PO DAILY guaifenesin [Mucinex] 1 tab PO Q6H PRN (Reason: cold symptoms) ondansetron 4 mg tablet,disintegrating 4 mg PO Q8H PRN PRN (Reason: Nausea) Qty: 20 0RF benzonatate 100 mg capsule 100 mg PO TID PRN (Reason: cough) Qty: 30 0RF Referrals / Follow Up: Jamari Zhang DO [Primary Care Provider] - (Follow-up in 3-5 days to review admission, medication additions.) Wilbert Vogel MD [Med Staff - Active Staff] - (Follow-up in 2 weeks per Cardiology request. May see Cardiology [employer] ENGINEER.) Hemanth Kiser MD [Med Staff - Active Staff] - (Please establish with Hematology for further evaluation and interventions for your underlying iron deficiency anemia. Please follow-up in 2-4 weeks if able or first open appt.) Disposition Disposition (needs filled in before D/C Order can be placed): Home, Self Care
--- NOTE | 2023-07-18 10:12 | DS.PCM_ITS ---
Providers Date of Admission: 07/16/23 Date of Discharge: 07/18/23 Primary Care Physician: Dr. Jamari Zhang, Consultations 07/17/23 04:45 Consult: Cardiology Routine Consulting Provider: Lobito Kwon Reason for Consult: Suspected viral myocarditis with recent influenza B EMERGENT Consult: No MD Notified: Yes Date Notified: 07/17/23 Time Notified: 06:46 Method of Notification: Text Method of Consult:: In-Person Reason For Visit: ELEVATED TROPONIN WITH SUSPECTED MYOCARDITIS; Diagnosis Discharge Diagnosis (1) Elevated troponin: Status: Acute Code(s): R79.89 - Other specified abnormal findings of blood chemistry Plan: Discharge Diagnoses: #1. Acute Myocarditis secondary to Recent Acute Viral Influenza B Illness with mildly elevated troponin associated, reduced EF #2. Pancytopenia, worsening anemia with history of underlying iron deficiency anemia, new onset thrombocytopenia, leukopenia, Suspect secondary to recent acute viral illness, reactive. #3. Hypokalemia: Admission K+ 3.4, magnesium level normal 2.5, supplementation given. #4. Thyroid disease, unclear type, chart reported hyperthyroidism but uncertain with normal TSH 0.64, not on any chronic regimen #5. Anxiety and depression Medications at Discharge Home Medications ascorbic acid (vitamin C) 500 mg tablet (Vitamin C) 500 mg PO BID supplement 07/13/23 benzonatate 100 mg capsule 100 mg PO TID PRN cough #30 caps 07/13/23 ferrous sulfate 142 mg (45 mg iron) tablet,extended release (Slow Release Iron) 142 mg PO BID iron deficiency 07/13/23 guaifenesin 1 tab PO Q6H PRN cold symptoms 07/13/23 ondansetron 4 mg disintegrating tablet 4 mg PO Q8H PRN PRN Nausea #20 tabs 07/13/23 sertraline 25 mg tablet 25 mg PO DAILY 07/13/23 metoprolol tartrate 25 mg tablet 12.5 mg (1/2 x 25 mg) PO BID 30 days #30 tabs 07/18/23 spironolactone 25 mg tablet 12.5 mg (1/2 x 25 mg) PO DAILY 30 days #15 tabs 07/18/23 Hospital Course Operations None Procedures 2-D Echocardiogram and EKG Summary of Care Provided Minutes Spent on Discharge: 35 Hospital Course: The patient is a 32 y/o F w/ PMHx: Hyperthyroidism, Chronic anemia, Depression and Anxiety, recent diagnosis influenza B 07/13/2023 who presented to the [facility] ED on 07/16/23 with history of onset of cough, pleuritic chest discomfort starting approximately 3 days prior progressively worsening with cough noted to be nonproductive although discomfort in the chest worse with any attempted recline or leaning forward or coughing with associated nausea with bilious emesis prompting eventual ED evaluation. ED Evaluation included initial troponin 62, potassium 2.8, CBC with leukopenia 3.6, anemia with hemoglobin 8.3 and thrombocytopenia with platelet 106. 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 Cardiology also notes possible addition ARB if able to tolerate. 07/18/23 Patient reports feeling improved, tolerating new medications started the evening prior and dosed also this AM. Per discussion with Cardiology will discharge to home on metoprolol and spironolactone, will d/c asa and statin. Patient during presentation with pancytopenia, notable anemia with underlying iron deficiency anemia with suspected leukopenia/thrombocytopenia secondary to recent acute viral illness, reactive. Fe sat 5.3%, ferritin 29, TIBC 300, Fe 16. Folic acid 11.70, B12 827. HIV negative. Continued chronic iron supplementation. Referred patient to hematology at discharge for more close monitoring of her chronic anemia to consider IV Fe transfusions. 07/18/23 CBC with WBC 4.0, hemoglobin 8.0, MCV 76.1, platelet 161, improving plts count and stable Hgb. Chart reported thyroid disorder history, possibly hyperthyroidism, TSH 0.64, not on any chronic regimen, encouraged continued outpatient follow-up as previously arranged. Patient discharged to home in stable improved condition with follow-up with PCP, Cardiology and recommended referral to Hematology. Weight / BMI Weight Weight: 84 lb 3.465 oz Body Mass Index (BMI) 15.9 ABG / Lab / Microbiology Data 07/18/23 04:57 07/18/23 04:57 Laboratory: Laboratory Results - last 24 hr 07/18/23 04:57: WBC 4.0 L, RBC 3.56 L, Hgb 8.0 L, Hct 27.1 L, MCV 76.1 L, MCH 22.5 L, MCHC 29.5 L, RDW Std Deviation 47.6 H, RDW Coeff of Vandana 16.9 H, Plt Count 161, MPV 10.2, Immature Gran % (Auto) 0.300, Neut % (Auto) 54.4, Lymph % (Auto) 33.8, [place] % (Auto) 10.9 H, Eos % (Auto) 0.3, Baso % (Auto) 0.3, Absolute Neuts (auto) 2.2, Absolute Lymphs (auto) 1.34, Nucleated RBC % 0, Diff Path Review May foll, Ovalocytes 2+, Sodium 139, Potassium 3.4 L, Chloride 108 H, Carbon Dioxide 28.0, Anion Gap 3 L, BUN 4 L, Creatinine 0.53 L, Estim Creat Clear Calc 91.90, Est GFR (MDRD) Af Amer 171, Est GFR (MDRD) Non-Af 141, BUN/Creatinine Ratio 7.5 L, Glucose 96, Calcium 8.7, Total Bilirubin 0.30, AST 28, ALT 25, Alkaline Phosphatase 66, Total Protein 6.5, Albumin 2.8 L, Globulin 3.7, Albumin/Globulin Ratio 0.8 L Microbiology: Microbiology 07/16/23 23:40 Mucosa - Nasopharyngeal Respiratory Panel (PCR) - Final Influenzae B Radiography Diagnostic Testing: Radiology Impression Echocardiogram 07/16/23 23:02 Interpretation Summary The estimated ejection fraction is 35 %. Moderate global left ventricular systolic dysfunction. Normal diastololic function. 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 Recommend cardiac MRI for further evaluation. Ordering Physician: Kaushal Noonan Referring Physician: Jamari Zhang Performed By: Jennifer Perry RDCS D/C Instructions Discharge Diet: No restrictions May resume sexual activity in: 10-14 days Weight Bearing Status: Weight bearing as tolerated Call your doctor if you observe: Fever of 101 or Higher, Shortness of breath, Dizziness, Fainting spells, Chest pain and Increased palpitations (irregular heartbeat) Meaningful Use Info Meaningful Use Diagnoses (Choose all that apply): None applicable Discharge Plan Admission Admit Date/Time: 07/16/23 22:08 Primary Reason for Your Visit: Acute Influenza B Viral Myocarditis Attending Provider: Amy Villalba Primary Care Provider: Jamari Zhang Consulting Providers: Kaushal Noonan; Lobito Kwon Instructions Additional Instructions / Restrictions: Evaluation and treatment during admission: #1. Acute Myocarditis secondary to Recent Acute Viral Influenza B Illness: During the evaluation you had mildly elevated troponins (cardiac enzymes), low potassium which was corrected and your blood counts had a low white count and platelet count which related to your recent acute viral illness but will need to be followed up. No recent illness and your presentation there was concerns for acute myocarditis with ECHO obtained w/ EF 35%, moderately global LV systolic dysfunction, normal diastolic function, suspected LV noncompaction.urology started you on a low-dose metoprolol and spironolactone which be continued. If you have any difficulties taking these medications please immediately notify the cardiology office. They plan to see you again in 2 weeks with a likely follow- up echocardiogram in 3 months and possibly an outpatient cardiac MRI per their discretion. All regular medicines they may add additional medication in the office pending reevaluation. #2. Pancytopenia: Low white blood cell count, low hemoglobin level, low platelet count. You do have history of iron deficiency anemia. The low white count and platelet count are likely secondary to recent viral illness and should be improving. You will need to have repeat complete blood count with your [facility] care physician at follow-up. And consistent with iron deficiency anemia with continued iron supplementation. If again nature of your iron deficiency anemia upon discharge recommendation for follow-up with hematology for close continued evaluation. #3. Chart reported history of hypothyroidism: TSH was obtained during her admission and normal range thus we encourage continued outpatient follow-up to assure it is not necessary that you be on any medication. Discharge Orders/Prescriptions Prescriptions: New spironolactone 25 mg Tablet 12.5 mg PO DAILY 30 Days Qty: 15 1RF metoprolol tartrate 25 mg Tablet 12.5 mg PO BID 30 Days Qty: 30 1RF Continued ascorbic acid (vitamin C) [Vitamin C] 500 mg tablet 500 mg PO BID Slow Release Iron 142 mg (45 mg iron) tablet extended release 142 mg PO BID sertraline 25 mg tablet 25 mg PO DAILY guaifenesin [Mucinex] 1 tab PO Q6H PRN (Reason: cold symptoms) ondansetron 4 mg tablet,disintegrating 4 mg PO Q8H PRN PRN (Reason: Nausea) Qty: 20 0RF benzonatate 100 mg capsule 100 mg PO TID PRN (Reason: cough) Qty: 30 0RF Referrals / Follow Up: Jamari Zhang DO [Primary Care Provider] - (Follow-up in 3-5 days to review admission, medication additions.) Wilbert Vogel MD [Med Staff - Active Staff] - (Follow-up in 2 weeks per Cardiology request. May see Cardiology [employer] [facility].) Hemanth Kiser MD [Med Staff - Active Staff] - (Please establish with Hematology for further evaluation and interventions for your underlying iron deficiency anemia. Please follow-up in 2-4 weeks if able or first open appt.) Disposition Disposition (needs filled in before D/C Order can be placed): Home, Self Care Charges/Coding Visit Charges Inpatient E&M: 66181 Disch Hosp >30min
--- NOTE | 2023-07-18 10:44 | PHA.DC.MC.R ---
Pharmacy [facility] Pharmacy Service has performed discharge medication reconciliation and counseling for this patient. 1. METOPROLOL TARTRATE 12.5MG PO BID 2. SPIRONOLACTONE 12.5MG PO DAILY The patient's discharge medication list was reviewed for discrepancies and discrepancies were resolved. The patient was counseled on the following discharge medications and changes in medications for homegoing were reviewed. The Reason for Use, instructions for use, and potential side effects were reviewed for all new medications. The patient's questions regarding all of their medications were answered. The patient was able to verbally demonstrate an understanding of their discharge medications. Medications at Discharge Home Medications ascorbic acid (vitamin C) 500 mg tablet (Vitamin C) 500 mg PO BID supplement 07/13/23 benzonatate 100 mg capsule 100 mg PO TID PRN cough #30 caps 07/13/23 ferrous sulfate 142 mg (45 mg iron) tablet,extended release (Slow Release Iron) 142 mg PO BID iron deficiency 07/13/23 guaifenesin 1 tab PO Q6H PRN cold symptoms 07/13/23 ondansetron 4 mg disintegrating tablet 4 mg PO Q8H PRN PRN Nausea #20 tabs 07/13/23 sertraline 25 mg tablet 25 mg PO DAILY 07/13/23 metoprolol tartrate 25 mg tablet 12.5 mg (1/2 x 25 mg) PO BID 30 days #30 tabs 07/18/23 spironolactone 25 mg tablet 12.5 mg (1/2 x 25 mg) PO DAILY 30 days #15 tabs 07/18/23
[2023-07-18 12:56] LABS: Pathologist Review Reviewed
== END 2023-07-18 11:35 | disposition home or self-care (01) | DRG 207 ==
LOC: ED 21:41 → PCU 22:37
PROVIDERS: Admitting Provider Internal Medicine; Emergency Provider Emergency Medicine; PCP Student in an Organized Health Care Education/Training Program; Visit Provider Family Medicine
DX: I40.0 Infective myocarditis (principal); D61.818 Other pancytopenia; D69.6 Thrombocytopenia, unspecified; B33.24 Viral cardiomyopathy; F32.A Depression, unspecified; D50.9 Iron deficiency anemia, unspecified; E07.9 Disorder of thyroid, unspecified; J10.1 Influenza due to other identified influenza virus with other respiratory manifestations; E87.6 Hypokalemia; F41.9 Anxiety disorder, unspecified; D72.819 Decreased white blood cell count, unspecified; Z79.899 Other long term (current) drug therapy
CPT/HCPCS: 36415; 71045; 71046; 71275; 80053; 82607; 82728; 82746; 83540; 83550; 83690; 83735; 83880; 84100; 84443; 84484; 85025; 86703; 87631; 87633; 93005; 93306; 99284; 99285; J7030; J7050; Q9967; A4216

== ENCOUNTER 2023-08-17 16:58 | Inpatient (IN) | payer MEDICAID, SELFPAY ==
[2023-08-17] VITALS (8 sets, daily range): BP systolic 79–98; BP diastolic 56–68; PULSE 69–104; RESP 10–19; TEMP 36.7–37.3; O2SAT 96–100; BMI 16.2; BMI 17.0
[2023-08-17 17:52] LABS: Absolute Lymphocyte Count 0.51 X10^3/uL (0.83-4.51); Absolute Neutrophil Count 4.1 X10^3/uL (2.0-7.7); Basophil# 0.01 X10^3/uL; Basophil% 0.2 % (0-1); Hematocrit 34.9 % (37-47); Hemoglobin 10.6 g/dL (12.0-15.0); Lymphocyte # 0.51 X10^3/ul (0.83-4.51); Lymphocyte % 10.2 % (19-41); Mean Corp Hgb Conc 30.4 g/dL (32-36); Mean Corpuscular Hgb 25.5 pg (27.0-32.0); Mean Corpuscular Volume 83.9 fL (81-99); Mean Platelet Vol. 9.4 fl (6.2-12.0); Monocyte# 0.38 X10^3/uL; Monocyte% 7.6 % (0-10); NRBC Flagged by Analyzer 0 % (0-5); Neutrophil # 4.08 X10^3/uL (2.7-7.7); Neutrophil % 81.8 % (47-70); POSITIVE DIFFERENTIAL YES; POSITIVE MORPHOLOGY YES; Platelet Count 168 K/mm3 (150-450); RBC Distribution Width CV 21.5 % (11.6-14.6); RBC Distribution Width SD 64.8 fl (35.1-43.9); Red Blood Count 4.16 M/mm3 (4.2-5.4)
[2023-08-17 17:57] LABS: Differential Indicated SCAN CRITERIA MET
[2023-08-17 18:06] LABS: Internal QC Validated? YES +Cl - CLEAR BKGD; Pregnancy, Serum, hCG Quali. NEGATIVE Negative
[2023-08-17 18:08] LABS: AST(SGOT) 32 U/L (15-37); Alanine Aminotransfer ALT/SGPT 23 U/L (13-56); Albumin, Serum 3.4 g/dL (3.2-5.0); Alkaline Phosphatase 76 U/L (45-117); Anion Gap 6 (5-15); BUN 9 mg/dL (7-18); BUN/Creat Ratio 14.9 RATIO (10-20); Calcium,Total 8.4 mg/dL (8.5-10.1); Chloride 108 mmol/L (98-107); EST Glomerular Filtration Rate 121 mL/min (>60); Est Glom Filt Rate - Afr Amer 147 mL/min (>60); Estimated Creatinine Clearance 82.89 ml/min; Globulin 3.5 g/dL (2.2-4.2); Glucose 93 mg/dL (74-106); Potassium 3.2 mmol/L (3.5-5.1); Protein, Total 6.9 g/dL (6.4-8.2); Sodium Level 141 mmol/L (136-145)
--- NOTE | 2023-08-17 18:14 | EKG12_ITS ---
Test Reason : NAUSEA Blood Pressure : / mmHG Vent. Rate : 083 BPM Atrial Rate : 083 BPM P-R Int : 150 ms QRS Dur : 088 ms QT Int : 406 ms P-R-T Axes : 072 049 050 degrees QTc Int : 477 ms Normal sinus rhythm Normal ECG Confirmed by Wilbert Vogel ([id number]), advertising editor ANICETO RUDD ([id number]) on 08/21/2023 2:15:30 PM Referred By: Confirmed By:Wilbert Vogel
--- NOTE | 2023-08-17 18:17 | EX.ED.DYSGE1 ---
HPI <DES Jimenez - Last Filed: 08/17/23 22:26> History of Present Illness Chief Complaint: General Illness Narrative Narrative: 32-year-old female with PMH of anemia, myocarditis, cardiomyopathy states last night she developed diffuse abdominal cramping and nausea and vomiting. She is on day 4 of her menstrual cycle but this cramping seemed more intense than usual. When trying to drink she vomited again twice today. She feels weak and short of breath. No chest pain. She is having normal daily bowel movements. No melena hematochezia. No urinary symptoms. She states 1 month ago she was admitted for the flu/viral myocarditis and cardiomyopathy. After discharge she received 4 weeks of iron infusions. She does not drink or smoke. Abdominal surgeries include tubal ligation. PFSH <DES Jimenez - Last Filed: 08/17/23 22:26> [facility] Medical History Anxiety and depression Chronic anemia Clavicle fracture History of thyroid disorder Myocarditis Painful orthopaedic hardware Home Medications ascorbic acid (vitamin C) 500 mg tablet (Vitamin C) 500 mg PO BID supplement 07/13/23 [History Last Taken 07/10/23] ferrous sulfate 142 mg (45 mg iron) tablet,extended release (Slow Release Iron) 142 mg PO BID iron deficiency 07/13/23 [History Last Taken 07/10/23] guaifenesin 1 tab PO Q6H PRN cold symptoms 07/13/23 [History Last Taken 07/12/23] ondansetron 4 mg disintegrating tablet 4 mg PO Q8H PRN PRN Nausea #20 tabs 07/13/23 [Rx Last Taken Unknown] sertraline 25 mg tablet 25 mg PO DAILY 07/13/23 [History Last Taken 07/10/23] metoprolol tartrate 25 mg tablet 12.5 mg (1/2 x 25 mg) PO BID 30 days #30 tabs 08/08/23 [Rx Last Taken Unknown] spironolactone 25 mg tablet 12.5 mg (1/2 x 25 mg) PO DAILY 30 days #15 tabs 08/08/23 [Rx Last Taken Unknown] ondansetron 4 mg disintegrating tablet 4 mg PO Q6H PRN nausea and vomiting #12 tabs 08/17/23 [Rx Last Taken Unknown] Allergy/AdvReac Type Severity Reaction Status Date / Time amoxicillin [Amoxicillin] Allergy Hives Verified 08/17/23 16:59 cefixime [From Suprax] Allergy Hives Verified 08/17/23 16:59 lactulose Allergy Hives Verified 08/17/23 16:59 oxycodone HCl [From Percocet] AdvReac Abd Verified 08/17/23 16:59 cramps/diarrhea Family History (Updated 08/17/23 @ 23:[address] Amy Villalba MD) Mother Diabetes Heart disease Hypertension CVA (cerebral vascular accident) HLD (hyperlipidemia) Father Osteoarthritis Surgical History History of tonsillectomy and adenoidectomy Hx of tubal ligation Hx of tympanostomy tubes S/P ORIF (open reduction internal fixation) fracture Social History household members: spouse Smoking Status: Never smoker alcohol intake: never substance use type: does not use caffeine: Yes Type: carbonated beverages ROS <DES Jimenez - Last Filed: 08/17/23 22:26> ROS ED ROS Narrative Constitutional: Negative for fever, chills, malaise. CVS: Negative for chest pain. Respiratory: Positive for shortness of breath. GI: Positive for abdominal pain, nausea, vomiting. Negative for diarrhea. : Negative for dysuria, frequency. EXAM <DES Jimenez - Last Filed: 08/17/23 22:26> Physical Exam Narrative Exam Narrative: CONST: Patient sitting in no acute distress. EYES: Normal inspection. NECK: Normal inspection. RESP: No respiratory distress, CTAB. CVS: Regular rate and rhythm, no murmur, no gallop. ABD: Soft with mild generalized tenderness, no guarding or rebound, nondistended. SKIN: Color normal, no rash, warm, dry, intact. EXTREMITIES: Normal appearance, no pedal edema. NEURO: Oriented x4. PSYCH: Normal affect. Const Vital Signs: 08/17/23 16:59 08/17/23 18:03 08/17/23 18:07 Temperature 98.1 F Temperature Source Temporal Pulse Rate 104 H 84 Pulse Rate [Lying] Pulse Rate [Sitting (for 1 minute prior to obtaining)] Pulse Rate [Standing (for 1 minute prior to obtaining)] Respiratory Rate 16 15 Respiratory Pattern Normal Blood Pressure 79/57 L 86/61 L Blood Pressure [Lying] Blood Pressure [Sitting (for 1 minute prior to obtaining)] Blood Pressure [Standing (for 1 minute prior to obtaining)] Blood Pressure Mean 64 69 Blood Pressure Mean [Lying] Blood Pressure Mean [Sitting (for 1 minute prior to obtaining)] Blood Pressure Mean [Standing (for 1 minute prior to obtaining)] Pulse Ox 100 100 Oxygen Delivery Method Room Air Room Air 08/17/23 18:52 08/17/23 19:35 08/17/23 20:50 Temperature 99.1 F Temperature Source Oral Pulse Rate 89 87 Pulse Rate [Lying] 84 Pulse Rate [Sitting (for 1 minute prior to obtaining)] 82 Pulse Rate [Standing (for 1 minute prior to obtaining)] 94 Respiratory Rate 10 L 19 H Respiratory Pattern Blood Pressure 89/56 L 90/61 Blood Pressure [Lying] 88/62 L Blood Pressure [Sitting (for 1 minute prior to obtaining)] 87/58 L Blood Pressure [Standing (for 1 minute prior to obtaining)] 89/61 L Blood Pressure Mean 67 70 Blood Pressure Mean [Lying] 70 Blood Pressure Mean [Sitting (for 1 minute prior to obtaining)] 67 Blood Pressure Mean [Standing (for 1 minute prior to obtaining)] 70 Pulse Ox 100 100 Oxygen Delivery Method Room Air Room Air 08/17/23 21:00 08/17/23 21:44 Temperature 99.1 F Temperature Source Pulse Rate 69 84 Pulse Rate [Lying] Pulse Rate [Sitting (for 1 minute prior to obtaining)] Pulse Rate [Standing (for 1 minute prior to obtaining)] Respiratory Rate 16 18 Respiratory Pattern Blood Pressure 88/59 L 88/59 L Blood Pressure [Lying] Blood Pressure [Sitting (for 1 minute prior to obtaining)] Blood Pressure [Standing (for 1 minute prior to obtaining)] Blood Pressure Mean 68 68 Blood Pressure Mean [Lying] Blood Pressure Mean [Sitting (for 1 minute prior to obtaining)] Blood Pressure Mean [Standing (for 1 minute prior to obtaining)] Pulse Ox 96 100 Oxygen Delivery Method Room Air <Dr. Latrell Martines, DO - Last Filed: 08/17/23 23:54> Physical Exam Const Vital Signs: 08/17/23 16:59 08/17/23 18:03 08/17/23 18:07 Temperature 98.1 F Temperature Source Temporal Pulse Rate 104 H 84 Pulse Rate [Lying] Pulse Rate [Sitting (for 1 minute prior to obtaining)] Pulse Rate [Standing (for 1 minute prior to obtaining)] Respiratory Rate 16 15 Respiratory Pattern Normal Blood Pressure 79/57 L 86/61 L Blood Pressure [Lying] Blood Pressure [Sitting (for 1 minute prior to obtaining)] Blood Pressure [Standing (for 1 minute prior to obtaining)] Blood Pressure Mean 64 69 Blood Pressure Mean [Lying] Blood Pressure Mean [Sitting (for 1 minute prior to obtaining)] Blood Pressure Mean [Standing (for 1 minute prior to obtaining)] Pulse Ox 100 100 Oxygen Delivery Method Room Air Room Air 08/17/23 18:52 08/17/23 19:35 08/17/23 20:50 Temperature 99.1 F Temperature Source Oral Pulse Rate 89 87 Pulse Rate [Lying] 84 Pulse Rate [Sitting (for 1 minute prior to obtaining)] 82 Pulse Rate [Standing (for 1 minute prior to obtaining)] 94 Respiratory Rate 10 L 19 H Respiratory Pattern Blood Pressure 89/56 L 90/61 Blood Pressure [Lying] 88/62 L Blood Pressure [Sitting (for 1 minute prior to obtaining)] 87/58 L Blood Pressure [Standing (for 1 minute prior to obtaining)] 89/61 L Blood Pressure Mean 67 70 Blood Pressure Mean [Lying] 70 Blood Pressure Mean [Sitting (for 1 minute prior to obtaining)] 67 Blood Pressure Mean [Standing (for 1 minute prior to obtaining)] 70 Pulse Ox 100 100 Oxygen Delivery Method Room Air Room Air 08/17/23 21:00 08/17/23 21:44 Temperature 99.1 F Temperature Source Pulse Rate 69 84 Pulse Rate [Lying] Pulse Rate [Sitting (for 1 minute prior to obtaining)] Pulse Rate [Standing (for 1 minute prior to obtaining)] Respiratory Rate 16 18 Respiratory Pattern Blood Pressure 88/59 L 88/59 L Blood Pressure [Lying] Blood Pressure [Sitting (for 1 minute prior to obtaining)] Blood Pressure [Standing (for 1 minute prior to obtaining)] Blood Pressure Mean 68 68 Blood Pressure Mean [Lying] Blood Pressure Mean [Sitting (for 1 minute prior to obtaining)] Blood Pressure Mean [Standing (for 1 minute prior to obtaining)] Pulse Ox 96 100 Oxygen Delivery Method Room Air MDM <DES Jimenez - Last Filed: 08/17/23 22:26> MDM MDM Narrative Medical decision making narrative: History gathered from: Patient and spouse Differential: Gastroenteritis, pancreatitis, hepatitis, gallbladder etiology Patient presents with nausea and vomiting and generalized abdominal cramping that started last night. She appears well and nontoxic. BP is 79/57, HR 104, otherwise normal vital signs. She is very thin states her normal systolic blood pressures in the 90s. She has mildly dry mucous membranes. Abdomen is soft with generalized tenderness. CBC shows improved anemia at 10.6. Pancytopenia from previous visit has resolved. Potassium slightly low at 3.2. Normal renal function, LFTs, and lipase. Urinalysis and test is negative. EKG is sinus rhythm and unchanged from previous. CXR shows no acute process. After IV fluids, Zofran, and Toradol patient's blood pressure improved to her baseline. Orthostatic vital signs are negative. However after ambulating patient and her are very concerned that she does not feel better or well enough to go home. Case was discussed with the hospitalist. Lab Data Attestation: I reviewed the patient's lab results. Labs: Laboratory Results - last 24 hr 08/17/23 08/17/23 08/17/23 17:35 17:35 17:35 WBC 5.0 RBC 4.16 L Hgb 10.6 L Hct 34.9 L MCV 83.9 MCH 25.5 L MCHC 30.4 L RDW Std Deviation 64.8 H RDW Coeff of Vandana 21.5 H Plt Count 168 MPV 9.4 Immature Gran % (Auto) 0.200 Neut % (Auto) 81.8 H Lymph % (Auto) 10.2 L Young % (Auto) 7.6 Eos % (Auto) 0.0 Baso % (Auto) 0.2 Absolute Neuts (auto) 4.1 Absolute Lymphs (auto) 0.51 L Nucleated RBC % 0 Differential Comment SCANNED Anisocytosis 2+ Microcytosis 1+ Macrocytosis 1+ Sodium 141 Potassium 3.2 L Chloride 108 H Carbon Dioxide 27.0 Anion Gap 6 BUN 9 Creatinine 0.60 Estim Creat Clear Calc 82.89 Est GFR (MDRD) Af Amer 147 Est GFR (MDRD) Non-Af 121 BUN/Creatinine Ratio 14.9 Glucose 93 Calcium 8.4 L Magnesium Total Bilirubin 0.30 0.30 Direct Bilirubin 0.10 AST 32 30 ALT 23 Alkaline Phosphatase Troponin I High Sens B-Natriuretic Peptide Total Protein Albumin Globulin Albumin/Globulin Ratio Lipase Procalcitonin Serum , Qual Urine Color Urine Clarity Urine pH Ur Specific [place] Urine Protein Urine Glucose (UA) Urine Ketones Urine Occult Blood Urine Nitrite Urine Bilirubin Urine Urobilinogen Ur Leukocyte Esterase Urine RBC Urine WBC Ur Squamous Epith Cells Urine Bacteria Urine Mucus 08/17/23 08/17/23 08/17/23 17:35 17:35 17:35 WBC RBC Hgb Hct MCV MCH MCHC RDW Std Deviation RDW Coeff of Vandana Plt Count MPV Immature Gran % (Auto) Neut % (Auto) Lymph % (Auto) Young % (Auto) Eos % (Auto) Baso % (Auto) Absolute Neuts (auto) Absolute Lymphs (auto) Nucleated RBC % Differential Comment Anisocytosis Microcytosis Macrocytosis Sodium Potassium Chloride Carbon Dioxide Anion Gap BUN Creatinine Estim Creat Clear Calc Est GFR (MDRD) Af Amer Est GFR (MDRD) Non-Af BUN/Creatinine Ratio Glucose Calcium Magnesium Total Bilirubin Direct Bilirubin AST ALT 23 Alkaline Phosphatase 76 75 Troponin I High Sens B-Natriuretic Peptide 4.7 Total Protein 6.9 6.9 Albumin 3.4 Globulin Albumin/Globulin Ratio Lipase Procalcitonin Serum , Qual Urine Color Urine Clarity Urine pH Ur Specific [place] Urine Protein Urine Glucose (UA) Urine Ketones Urine Occult Blood Urine Nitrite Urine Bilirubin Urine Urobilinogen Ur Leukocyte Esterase Urine RBC Urine WBC Ur Squamous Epith Cells Urine Bacteria Urine Mucus 08/17/23 08/17/23 08/17/23 17:35 17:35 19:40 WBC RBC Hgb Hct MCV MCH MCHC RDW Std Deviation RDW Coeff of Vandana Plt Count MPV Immature Gran % (Auto) Neut % (Auto) Lymph % (Auto) Young % (Auto) Eos % (Auto) Baso % (Auto) Absolute Neuts (auto) Absolute Lymphs (auto) Nucleated RBC % Differential Comment Anisocytosis Microcytosis Macrocytosis Sodium Potassium Chloride Carbon Dioxide Anion Gap BUN Creatinine Estim Creat Clear Calc Est GFR (MDRD) Af Amer Est GFR (MDRD) Non-Af BUN/Creatinine Ratio Glucose Calcium Magnesium Total Bilirubin Direct Bilirubin AST ALT Alkaline Phosphatase Troponin I High Sens B-Natriuretic Peptide Total Protein Albumin 3.4 Globulin 3.5 3.5 Albumin/Globulin Ratio 1.0 Lipase 20 Procalcitonin < 0.04 Serum , Qual NEGATIVE Urine Color Yellow Urine Clarity Clear Urine pH 8.0 Ur Specific [place] 1.010 Urine Protein Negative Urine Glucose (UA) Normal Urine Ketones 5 H Urine Occult Blood 250 H Urine Nitrite Negative Urine Bilirubin Negative Urine Urobilinogen 1 H Ur Leukocyte Esterase 25 H Urine RBC 0-5 SEEN Urine WBC 0-5 SEEN Ur Squamous Epith Cells 0-5 SEEN Urine Bacteria 0 SEEN Urine Mucus 1+ 08/17/23 21:37 WBC RBC Hgb Hct MCV MCH MCHC RDW Std Deviation RDW Coeff of Vandana Plt Count MPV Immature Gran % (Auto) Neut % (Auto) Lymph % (Auto) Young % (Auto) Eos % (Auto) Baso % (Auto) Absolute Neuts (auto) Absolute Lymphs (auto) Nucleated RBC % Differential Comment Anisocytosis Microcytosis Macrocytosis Sodium Potassium Chloride Carbon Dioxide Anion Gap BUN Creatinine Estim Creat Clear Calc Est GFR (MDRD) Af Amer Est GFR (MDRD) Non-Af BUN/Creatinine Ratio Glucose Calcium Magnesium 2.0 Total Bilirubin Direct Bilirubin AST ALT Alkaline Phosphatase Troponin I High Sens 16 B-Natriuretic Peptide Total Protein Albumin Globulin Albumin/Globulin Ratio Lipase Procalcitonin Serum , Qual Urine Color Urine Clarity Urine pH Ur Specific [place] Urine Protein Urine Glucose (UA) Urine Ketones Urine Occult Blood Urine Nitrite Urine Bilirubin Urine Urobilinogen Ur Leukocyte Esterase Urine RBC Urine WBC Ur Squamous Epith Cells Urine Bacteria Urine Mucus Radiography Diagnostic Testing: Clinical Impression(s) from Imaging Studies Chest X-Ray 08/17/23 18:50 IMPRESSION: No acute cardiopulmonary pathology Electronically Signed: Sherif Abdullahi MD at 19:20 EST Reading Location ID and State: [facility] / [place] Tel , Service support , <Dr. Latrell Martines, DO - Last Filed: 08/17/23 23:54> [facility] Narrative Medical decision making narrative: History gathered from: Patient and spouse Differential: Gastroenteritis, pancreatitis, hepatitis, gallbladder etiology Patient presents with nausea and vomiting and generalized abdominal cramping that started last night. She appears well and nontoxic. BP is 79/57, HR 104, otherwise normal vital signs. She is very thin states her normal systolic blood pressures in the 90s. She has mildly dry mucous membranes. Abdomen is soft with generalized tenderness. CBC shows improved anemia at 10.6. Pancytopenia from previous visit has resolved. Potassium slightly low at 3.2. Normal renal function, LFTs, and lipase. Urinalysis and test is negative. EKG is sinus rhythm and unchanged from previous. CXR shows no acute process. After IV fluids, Zofran, and Toradol patient's blood pressure improved to her baseline. Orthostatic vital signs are negative. However after ambulating patient and her are very concerned that she does not feel better or well enough to go home. Case was discussed with the hospitalist. I have personally performed a face to face assessment of the patient and have reviewed the ARTURO Note. I performed a substantive portion of the visit including all aspects of the following. My leal findings include: History is 32-year-old female with recent influenza cardiomyopathy presenting to the emergency room with dyspnea and vomiting. Reportedly the patient had an ejection fraction of 35% beginning of July. She followed up with cardiology. She chronically has low blood pressure. She went to [facility] today with the exertion began to have increased shortness of breath. States she was very short of breath and had blood pressure 79/57 when they walked from their car to triage. Patient did have some vomiting. He is upset that nobody did a stress test on the patient while she was in the hospital. He does understand why there has not been a recent echocardiogram and follow-up. There is a echocardiogram scheduled in October. Patient at rest her breathing is improved. She is not having leg swelling. No cough. No diarrhea. Exam is very thin 32-year-old female sitting comfortably in bed in no acute distress. I do not appreciate any large murmur. No Rales. No lower extremity edema. Medical Decison Making EKG and blood work fairly unremarkable. Hemoglobin 10.6. BNP normal. Manage interpretation of the chest x-ray is no acute process. Patient's not orthostatic. She is able to ambulate in the hallway. states that he would like her admitted because something is not right. He is concerned about her ability to care for the 5 children at home while he goes to work. I offered admission and he states he would rather just take her home and I asked the patient what she would like to do and she would like to stay. I spoke with the hospitalist who will be admitting. History & Record Review Discussion w/independent historian: Patient and Family Lab Data Labs: Laboratory Results - last 24 hr 08/17/23 08/17/23 08/17/23 17:35 17:35 17:35 WBC 5.0 RBC 4.16 L Hgb 10.6 L Hct 34.9 L MCV 83.9 MCH 25.5 L MCHC 30.4 L RDW Std Deviation 64.8 H RDW Coeff of Vandana 21.5 H Plt Count 168 MPV 9.4 Immature Gran % (Auto) 0.200 Neut % (Auto) 81.8 H Lymph % (Auto) 10.2 L Young % (Auto) 7.6 Eos % (Auto) 0.0 Baso % (Auto) 0.2 Absolute Neuts (auto) 4.1 Absolute Lymphs (auto) 0.51 L Nucleated RBC % 0 Differential Comment SCANNED Anisocytosis 2+ Microcytosis 1+ Macrocytosis 1+ Sodium 141 Potassium 3.2 L Chloride 108 H Carbon Dioxide 27.0 Anion Gap 6 BUN 9 Creatinine 0.60 Estim Creat Clear Calc 82.89 Est GFR (MDRD) Af Amer 147 Est GFR (MDRD) Non-Af 121 BUN/Creatinine Ratio 14.9 Glucose 93 Calcium 8.4 L Magnesium Total Bilirubin 0.30 0.30 Direct Bilirubin 0.10 AST 32 30 ALT 23 Alkaline Phosphatase Troponin I High Sens B-Natriuretic Peptide Total Protein Albumin Globulin Albumin/Globulin Ratio Lipase Procalcitonin Serum , Qual Urine Color Urine Clarity Urine pH Ur Specific [place] Urine Protein Urine Glucose (UA) Urine Ketones Urine Occult Blood Urine Nitrite Urine Bilirubin Urine Urobilinogen Ur Leukocyte Esterase Urine RBC Urine WBC Ur Squamous Epith Cells Urine Bacteria Urine Mucus 08/17/23 08/17/23 08/17/23 17:35 17:35 17:35 WBC RBC Hgb Hct MCV MCH MCHC RDW Std Deviation RDW Coeff of Vandana Plt Count MPV Immature Gran % (Auto) Neut % (Auto) Lymph % (Auto) Young % (Auto) Eos % (Auto) Baso % (Auto) Absolute Neuts (auto) Absolute Lymphs (auto) Nucleated RBC % Differential Comment Anisocytosis Microcytosis Macrocytosis Sodium Potassium Chloride Carbon Dioxide Anion Gap BUN Creatinine Estim Creat Clear Calc Est GFR (MDRD) Af Amer Est GFR (MDRD) Non-Af BUN/Creatinine Ratio Glucose Calcium Magnesium Total Bilirubin Direct Bilirubin AST ALT 23 Alkaline Phosphatase 76 75 Troponin I High Sens B-Natriuretic Peptide 4.7 Total Protein 6.9 6.9 Albumin 3.4 Globulin Albumin/Globulin Ratio Lipase Procalcitonin Serum , Qual Urine Color Urine Clarity Urine pH Ur Specific [place] Urine Protein Urine Glucose (UA) Urine Ketones Urine Occult Blood Urine Nitrite Urine Bilirubin Urine Urobilinogen Ur Leukocyte Esterase Urine RBC Urine WBC Ur Squamous Epith Cells Urine Bacteria Urine Mucus 08/17/23 08/17/23 08/17/23 17:35 17:35 19:40 WBC RBC Hgb Hct MCV MCH MCHC RDW Std Deviation RDW Coeff of Vandana Plt Count MPV Immature Gran % (Auto) Neut % (Auto) Lymph % (Auto) Young % (Auto) Eos % (Auto) Baso % (Auto) Absolute Neuts (auto) Absolute Lymphs (auto) Nucleated RBC % Differential Comment Anisocytosis Microcytosis Macrocytosis Sodium Potassium Chloride Carbon Dioxide Anion Gap BUN Creatinine Estim Creat Clear Calc Est GFR (MDRD) Af Amer Est GFR (MDRD) Non-Af BUN/Creatinine Ratio Glucose Calcium Magnesium Total Bilirubin Direct Bilirubin AST ALT Alkaline Phosphatase Troponin I High Sens B-Natriuretic Peptide Total Protein Albumin 3.4 Globulin 3.5 3.5 Albumin/Globulin Ratio 1.0 Lipase 20 Procalcitonin < 0.04 Serum , Qual NEGATIVE Urine Color Yellow Urine Clarity Clear Urine pH 8.0 Ur Specific [place] 1.010 Urine Protein Negative Urine Glucose (UA) Normal Urine Ketones 5 H Urine Occult Blood 250 H Urine Nitrite Negative Urine Bilirubin Negative Urine Urobilinogen 1 H Ur Leukocyte Esterase 25 H Urine RBC 0-5 SEEN Urine WBC 0-5 SEEN Ur Squamous Epith Cells 0-5 SEEN Urine Bacteria 0 SEEN Urine Mucus 1+ 08/17/23 21:37 WBC RBC Hgb Hct MCV MCH MCHC RDW Std Deviation RDW Coeff of Vandana Plt Count MPV Immature Gran % (Auto) Neut % (Auto) Lymph % (Auto) Young % (Auto) Eos % (Auto) Baso % (Auto) Absolute Neuts (auto) Absolute Lymphs (auto) Nucleated RBC % Differential Comment Anisocytosis Microcytosis Macrocytosis Sodium Potassium Chloride Carbon Dioxide Anion Gap BUN Creatinine Estim Creat Clear Calc Est GFR (MDRD) Af Amer Est GFR (MDRD) Non-Af BUN/Creatinine Ratio Glucose Calcium Magnesium 2.0 Total Bilirubin Direct Bilirubin AST ALT Alkaline Phosphatase Troponin I High Sens 16 B-Natriuretic Peptide Total Protein Albumin Globulin Albumin/Globulin Ratio Lipase Procalcitonin Serum , Qual Urine Color Urine Clarity Urine pH Ur Specific [place] Urine Protein Urine Glucose (UA) Urine Ketones Urine Occult Blood Urine Nitrite Urine Bilirubin Urine Urobilinogen Ur Leukocyte Esterase Urine RBC Urine WBC Ur Squamous Epith Cells Urine Bacteria Urine Mucus Radiography Diagnostic Testing: Clinical Impression(s) from Imaging Studies Chest X-Ray 08/17/23 18:50 IMPRESSION: No acute cardiopulmonary pathology Electronically Signed: Sherif Abdullahi MD at 19:20 EST Reading Location ID and State: [address] [place] [address] Tel , Service support , Discharge Plan Dx/Rx/DC Orders Clinical Impression: Nausea and vomiting, Abdominal pain, Dehydration, Acute hypokalemia, Chronic anemia Disposition Disposition: Acute Care Hospital [facility] Discharge Date/Time: 08/17/23 23:39
[2023-08-17] MEDS: Ketorolac 15 MG/ML Vial IV (18:20)
[2023-08-17] MEDS: 0.9% Normal Saline (1000mL) 1,000 ML 999 ML IV (18:20)
[2023-08-17] MEDS: Ondansetron 4 MG/2 ML Vial IV (18:21)
--- NOTE | 2023-08-17 18:50 | RAD_ITS ---
STUDY: X-RAY CHEST REASON FOR EXAM: Female, 32 years old. dyspnea TECHNIQUE: AP portable COMPARISON: July 16, 2023. FINDINGS: The lungs are clear and expanded. There is no demonstrated pleural abnormality. Normal size heart. Normal mediastinum and arpit. Normal visualized pulmonary arteries. Normal visualized aortic arch and descending thoracic aorta. Normal visualized thoracic spine. Normal visualized ribs, and shoulders. Postsurgical changes of the right clavicle Nonspecific bowel distention likely ileus.. RAD/Chest 1 View (Portable) IMPRESSION: No acute cardiopulmonary pathology Electronically Signed: Sherif Abdullahi MD at 19:20 EST ,
[2023-08-17 18:56] LABS: Differential Comment SCANNED
[2023-08-17 18:57] LABS: Anisocytosis 2+; Macrocytosis 1+; Microcytosis 1+
[2023-08-17 19:36] LABS: AST(SGOT) 30 U/L (15-37); Alanine Aminotransfer ALT/SGPT 23 U/L (13-56); Albumin, Serum 3.4 g/dL (3.2-5.0); Alkaline Phosphatase 75 U/L (45-117); Globulin 3.5 g/dL (2.2-4.2); Lipase 20 U/L (13-75); Protein, Total 6.9 g/dL (6.4-8.2)
[2023-08-17 19:46] LABS: Bacteria 0 SEEN /hpf (None Seen)
[2023-08-17 19:47] LABS: Color, Urine Yellow (Yellow); Glucose, Dipstick Normal (Normal); Ketone-Dipstick 5 mg/dl (Negative); Leukocyte Esterase-Dipstick 25 /ul (Negative); Nitrite-Dipstick Negative (Negative); Occult Blood-Urine 250 /ul (Negative); Protein-Dipstick Negative (Negative); Urine Bilirubin Dipstick Negative (Negative); Urine Clarity Clear (Clear); Urine Urobilinogen 1 mg/dl (Normal)
[2023-08-17] MEDS: Potassium Chloride Oral Tablet 20 MEQ 40 MEQ PO (19:48)
[2023-08-17 19:53] LABS: Mucous, Urine 1+ /hpf (<or=2+); Red Blood Cells-Urine 0-5 SEEN /hpf (0-5); Squamous Epithelial Cells - UA 0-5 SEEN /hpf (5-10); White Blood Cells 0-5 SEEN /hpf (0-5)
--- NOTE | 2023-08-17 21:39 | HP.PCM.HOS_ITS ---
HPI - General General Date of Admission: 08/17/23 Date of Service: 08/17/23 Chief Complaint: Abdominal cramping, N/V. HPI Narrative The patient is a 32 y/o F w/ PMHx: Recent 07/2022 Acute Myocarditis/Cardiomyopathy secondary to Acute Viral Influenza B Illness, Chronic anemia/Fe deficiency anemia, Anxiety and Depression who presents to the [facility] ED on 08/17/23 with history of 24 hours of worsening fatigue, malaise and then onset over the last 12 hours intractable nausea and emesis with generalized abdominal cramping without diarrhea nor any fever or chills. She had been up in [employer] errands and go to doctors visits and following this became more fatigued and weak. She denies dyspnea, orthopnea, weight gain, chest pain. She denies any recent ill contacts in the home. Workup in the ED included T98.1, heart rate 104, BP 79/57, respiratory rate 16, on high percent on room air, most recent vital signs heart rate 69, BP 88/59, respiratory rate 16, 96% on room air, orthostatics not marked, review of previous vital signs during prior presentations with chronically low blood pressure evident, CBC with WBC 5.0, hemoglobin 10.6, MCV 83.9, platelet 168 with lymphopenia, CMP with potassium 3.2, chloride 108, hepatic profile unremarkable, lipase 20, serum negative, urinalysis with ketone 5, occult blood 250, negative nitrite, leukocyte Estrace 25 with no obvious evidence of UTI nor any marked urine RBCs of note, chest x-ray with no acute cardiopulmonary findings, EKG with SR without acute evidence of ischemia, magnesium 2.0, troponin 16, BNP 4.7. In the ED patient ministered potassium 40 mill equivalent p.o. x 1, Zofran 4 mg IV x 1, Toradol 50 mg IV x 1 as well as 1 L normal saline bolus. [facility] Medical History (Updated 08/17/23 @ 23:[address] Amy Villalba MD) Anxiety and depression Chronic anemia Clavicle fracture History of thyroid disorder Myocarditis Painful orthopaedic hardware Home Medications ascorbic acid (vitamin C) 500 mg tablet (Vitamin C) 500 mg PO BID supplement 07/13/23 [History Last Taken 07/10/23] ferrous sulfate 142 mg (45 mg iron) tablet,extended release (Slow Release Iron) 142 mg PO BID iron deficiency 07/13/23 [History Last Taken 07/10/23] guaifenesin 1 tab PO Q6H PRN cold symptoms 07/13/23 [History Last Taken 07/12/23] ondansetron 4 mg disintegrating tablet 4 mg PO Q8H PRN PRN Nausea #20 tabs 07/13/23 [Rx Last Taken Unknown] sertraline 25 mg tablet 25 mg PO DAILY 07/13/23 [History Last Taken 07/10/23] metoprolol tartrate 25 mg tablet 12.5 mg (1/2 x 25 mg) PO BID 30 days #30 tabs 08/08/23 [Rx Last Taken Unknown] spironolactone 25 mg tablet 12.5 mg (1/2 x 25 mg) PO DAILY 30 days #15 tabs 08/08/23 [Rx Last Taken Unknown] ondansetron 4 mg disintegrating tablet 4 mg PO Q6H PRN nausea and vomiting #12 tabs 08/17/23 [Rx Last Taken Unknown] Allergy/AdvReac Type Severity Reaction Status Date / Time amoxicillin [Amoxicillin] Allergy Hives Verified 08/17/23 16:59 cefixime [From Suprax] Allergy Hives Verified 08/17/23 16:59 lactulose Allergy Hives Verified 08/17/23 16:59 oxycodone HCl [From Percocet] AdvReac Abd Verified 08/17/23 16:59 cramps/diarrhea Family History (Updated 08/17/23 @ 23:[address] Amy Villalba MD) Mother Diabetes Heart disease Hypertension CVA (cerebral vascular accident) HLD (hyperlipidemia) Father Osteoarthritis Surgical History (Updated 08/17/23 @ 23:[address] Amy Villalba MD) History of tonsillectomy and adenoidectomy Hx of tubal ligation Hx of tympanostomy tubes S/P ORIF (open reduction internal fixation) fracture Social History household members: spouse Smoking Status: Never smoker alcohol intake: never substance use type: does not use caffeine: Yes Type: carbonated beverages ROS ROS Narrative Admission Review of Systems: CONSTITUTIONAL: No weight loss, fever, chills, + weakness or fatigue. HEENT: Eyes: No visual loss, blurred vision, double vision or yellow sclerae. Ears, Nose, Throat: No hearing loss, sneezing, congestion, runny nose or sore throat. SKIN: No rash or itching, lesions, wounds. CARDIOVASCULAR: No chest pain, chest pressure or chest discomfort, palpitations, edema, orthopnea, syncopal events. RESPIRATORY: No shortness of breath, cough or sputum, wheezing, hemoptysis. GASTROINTESTINAL: + anorexia, nausea, vomiting, abdominal cramping. No diarrhea, melena, BRBPR. GENITOURINARY: No dysuria, frequency, urgency or retention. NEUROLOGICAL: No headache, dizziness, syncope, paralysis, ataxia, numbness or tingling in the extremities, focal weakness, change in bowel or bladder control, seizure. MUSCULOSKELETAL: + muscle, back pain, joint pain or stiffness. HEMATOLOGIC: + anemia. No bleeding or easy bruising. LYMPHATICS: No enlarged nodes. No history of splenectomy. PSYCHIATRIC: + history of depression and anxiety. ENDOCRINOLOGIC: No reports of sweating, cold or heat intolerance. No polyuria or polydipsia. ALLERGIES: No history of asthma, hives, eczema or rhinitis. Vital Signs Vital Signs Vital Signs: 08/17/23 16:59 08/17/23 18:03 08/17/23 18:07 Temperature 98.1 F Temperature Source Temporal Pulse Rate 104 H 84 Pulse Rate [Lying] Pulse Rate [Sitting (for 1 minute prior to obtaining)] Pulse Rate [Standing (for 1 minute prior to obtaining)] Respiratory Rate 16 15 Respiratory Pattern Normal Blood Pressure 79/57 L 86/61 L Blood Pressure [Lying] Blood Pressure [Sitting (for 1 minute prior to obtaining)] Blood Pressure [Standing (for 1 minute prior to obtaining)] Blood Pressure Mean 64 69 Blood Pressure Mean [Lying] Blood Pressure Mean [Sitting (for 1 minute prior to obtaining)] Blood Pressure Mean [Standing (for 1 minute prior to obtaining)] Pulse Ox 100 100 Oxygen Delivery Method Room Air Room Air 08/17/23 18:52 08/17/23 19:35 08/17/23 20:50 Temperature 99.1 F Temperature Source Oral Pulse Rate 89 87 Pulse Rate [Lying] 84 Pulse Rate [Sitting (for 1 minute prior to obtaining)] 82 Pulse Rate [Standing (for 1 minute prior to obtaining)] 94 Respiratory Rate 10 L 19 H Respiratory Pattern Blood Pressure 89/56 L 90/61 Blood Pressure [Lying] 88/62 L Blood Pressure [Sitting (for 1 minute prior to obtaining)] 87/58 L Blood Pressure [Standing (for 1 minute prior to obtaining)] 89/61 L Blood Pressure Mean 67 70 Blood Pressure Mean [Lying] 70 Blood Pressure Mean [Sitting (for 1 minute prior to obtaining)] 67 Blood Pressure Mean [Standing (for 1 minute prior to obtaining)] 70 Pulse Ox 100 100 Oxygen Delivery Method Room Air Room Air 08/17/23 21:00 Temperature Temperature Source Pulse Rate 69 Pulse Rate [Lying] Pulse Rate [Sitting (for 1 minute prior to obtaining)] Pulse Rate [Standing (for 1 minute prior to obtaining)] Respiratory Rate 16 Respiratory Pattern Blood Pressure 88/59 L Blood Pressure [Lying] Blood Pressure [Sitting (for 1 minute prior to obtaining)] Blood Pressure [Standing (for 1 minute prior to obtaining)] Blood Pressure Mean 68 Blood Pressure Mean [Lying] Blood Pressure Mean [Sitting (for 1 minute prior to obtaining)] Blood Pressure Mean [Standing (for 1 minute prior to obtaining)] Pulse Ox 96 Oxygen Delivery Method Room Air Weight Weight: 86 lb Body Mass Index (BMI) 16.2 Physical Exam Narrative Physical Examination: General: Awake, alert, oriented x 3 and cooperative, seated upright in the ED bed in no apparent distress, fatigued appearing. Skin: Normal color, normal turgor, no icterus, no cyanosis. HEENT: AT/NC, EOMI, PERRLA, dry MM, no carotid bruits or JVD noted. Lungs: CTA bilaterally, moderate effort, mild decrease BL bases, no rales, ronchi or wheezing. Heart: Regular rate and rhythm; no gallop, rub audible. Abdomen: Soft, thin habitus, NTTP, ND, hyperactive BS, no appreciated HSM. Extremities: No cyanosis, clubbing, or edema. Neurological: Patient awake, alert, oriented as noted, cognitive function intact; pupils equally reactive to light and accommodation, cranial nerves II- XII grossly normal, moving all 4 extremities, no focal deficits, strength improved, mildly to moderately global decrease secondary to presentation complaints. Psychiatric: Affect appears flat, fatigued, no acute evidence of depressive or anxiety feelings but does have underlying history. Results Lab / Micro Data 08/17/23 17:35 08/17/23 17:35 Labs: Laboratory Results - last 24 hr 08/17/23 17:35: WBC 5.0, RBC 4.16 L, Hgb 10.6 L, Hct 34.9 L, MCV 83.9, MCH 25.5 L, MCHC 30.4 L, RDW Std Deviation 64.8 H, RDW Coeff of Vandana 21.5 H, Plt Count 168, MPV 9.4, Immature Gran % (Auto) 0.200, Neut % (Auto) 81.8 H, Lymph % (Auto) 10.2 L, [place] % (Auto) 7.6, Eos % (Auto) 0.0, Baso % (Auto) 0.2, Absolute Neuts (auto) 4.1, Absolute Lymphs (auto) 0.51 L, Nucleated RBC % 0, Differential Comment SCANNED, Anisocytosis 2+, Microcytosis 1+, Macrocytosis 1+, Sodium 141, Potassium 3.2 L, Chloride 108 H, Carbon Dioxide 27.0, Anion Gap 6, BUN 9, Creatinine 0.60, Estim Creat Clear Calc 82.89, Est GFR (MDRD) Af Amer 147, Est GFR (MDRD) Non-Af 121, BUN/Creatinine Ratio 14.9, Glucose 93, Calcium 8.4 L, Total Bilirubin 0.30 08/17/23 17:35: Total Bilirubin 0.30, Direct Bilirubin 0.10, AST 32 08/17/23 17:35: AST 30, ALT 23 08/17/23 17:35: ALT 23, Alkaline Phosphatase 76 08/17/23 17:35: Alkaline Phosphatase 75, Total Protein 6.9 08/17/23 17:35: Total Protein 6.9, Albumin 3.4 08/17/23 17:35: Albumin 3.4, Globulin 3.5 08/17/23 17:35: Globulin 3.5, Albumin/Globulin Ratio 1.0, Lipase 20, Serum , Qual NEGATIVE 08/17/23 19:40: Urine Color Yellow, Urine Clarity Clear, Urine pH 8.0, Ur Specific [place] 1.010, Urine Protein Negative, Urine Glucose (UA) Normal, Urine Ketones 5 H, Urine Occult Blood 250 H, Urine Nitrite Negative, Urine Bilirubin Negative, Urine Urobilinogen 1 H, Ur Leukocyte Esterase 25 H, Urine RBC 0-5 SEEN, Urine WBC 0-5 SEEN, Ur Squamous Epith Cells 0-5 SEEN, Urine Bacteria 0 SEEN, Urine Mucus 1+ Imaging Radiology Impression Chest X-Ray 08/17/23 18:50 IMPRESSION: No acute cardiopulmonary pathology Electronically Signed: Sherif Abdullahi MD at 19:20 EST Reading Location ID and State: [facility] / [place] Tel , Service support , Assessment & Plan Assessment/Plan (1) Nausea and vomiting: PLAN: Plan The patient is a 32 y/o F w/ PMHx: Recent 07/2022 Acute Myocarditis/Cardiomyopathy secondary to Acute Viral Influenza B Illness, Chronic anemia/Fe deficiency anemia, Anxiety and Depression who presents to the [facility] ED on 08/17/23 with history of 24 hours of worsening fatigue, malaise and then onset over the last 12 hours intractable nausea and emesis with generalized abdominal cramping without diarrhea nor any fever or chills. #1. N/V, abdominal cramping, questionable gastroenteritis versus viral syndrome with associated acute on chronic hypotension: Will admit to medical surgical floor, will continue hydration, given improvement in the ED of both nausea and no further emesis will allow broaden diet, if there is any onset of diarrhea will assess stools, will obtain full respiratory viral panel, will obtain pr ocalcitonin although suspect this could certainly be a viral etiology, will add twice daily low-dose Protonix, will add scheduled bentyl, will have anti- emetics, pain regimen PRN. #2. Hypokalemia: Admission K+ 3.2, magnesium 2.0, supplementation given, repeat level in AM. #3. Recent history influenza A with associated viral cardiomyopathy/dilated cardiomyopathy: Echocardiogram with EF 35% with global LV systolic dysfunction with question of LV noncompaction however review per discussions with additional filter tip inspector decision that findings likely secondary to primarily viral cardiomyopathy, had been most recently seen 08/08/[address] Vogel, had been maintained on spironolactone and metoprolol with blood pressures running 85-95, current presentation with GI losses thus we will temporally hold these medications, add back once appropriate. Per discussion with patient planned upcoming repeat echocardiogram later in the month. #4. Chronic anemia/iron deficiency anemia complicated by suspected underlying malabsorption syndrome: Patient following with gastroenterology outpatient for planned ongoing evaluation of anemia with IV iron transfusions in the ambulatory setting, admission hemoglobin 10.6, MCV 83.9, will continue to trend, continue oral iron supplementation. #5. Anxiety and depression: We will continue patient home sertraline regimen. #6. DVT prophylaxis: Low risk for type admission, encourage ambulation is improving. Charges/Coding Visit Charges Inpatient E&M: 68564 Init Hosp L2
[2023-08-17 22:12] LABS: BNP,B-Type NATRIURETIC PEPTIDE 4.7 pg/mL (0-100)
[2023-08-17 22:16] LABS: Troponin-I HS 16 pg/mL (3.0-54.0)
[2023-08-17 23:02] LABS: Procalcitonin < 0.04 ng/mL (0.00-0.09)
[2023-08-18] VITALS (14 sets, daily range): BP systolic 80–131; BP diastolic 50–82; PULSE 36–692; RESP 14–18; TEMP 36.6–37.1; O2SAT 96–100; BMI 17.0
[2023-08-18] MEDS: Pantoprazole Sodium 20 MG Tablet PO ×3 (00:26→22:37)
[2023-08-18] MEDS: Dicyclomine 10 MG Capsule PO ×5 (00:26→22:37)
[2023-08-18] MEDS: 0.9% Normal Saline (1000mL) 1,000 ML 100 ML IV (00:27)
[2023-08-18 06:22] LABS: Absolute Lymphocyte Count 0.79 X10^3/uL (0.83-4.51); Absolute Neutrophil Count 1.6 X10^3/uL (2.0-7.7); Basophil# 0.01 X10^3/uL; Basophil% 0.4 % (0-1); Eosinophil# 0.03 X10^3/uL; Eosinophils% 1.1 % (0-5); Hematocrit 30.5 % (37-47); Hemoglobin 9.1 g/dL (12.0-15.0); Lymphocyte # 0.79 X10^3/ul (0.83-4.51); Lymphocyte % 28.7 % (19-41); Mean Corp Hgb Conc 29.8 g/dL (32-36); Mean Corpuscular Hgb 25.7 pg (27.0-32.0); Mean Corpuscular Volume 86.2 fL (81-99); Mean Platelet Vol. 9.2 fl (6.2-12.0); Monocyte# 0.36 X10^3/uL; Monocyte% 13.1 % (0-10); NRBC Flagged by Analyzer 0 % (0-5); Neutrophil # 1.56 X10^3/uL (2.7-7.7); Neutrophil % 56.7 % (47-70); POSITIVE MORPHOLOGY YES; Platelet Count 166 K/mm3 (150-450); RBC Distribution Width CV 22.4 % (11.6-14.6); RBC Distribution Width SD 69.3 fl (35.1-43.9); Red Blood Count 3.54 M/mm3 (4.2-5.4); White Blood Count 2.8 K/mm3 (4.4-11.0)
[2023-08-18 06:25] LABS: Differential Indicated SCAN CRITERIA MET
[2023-08-18 06:45] LABS: AST(SGOT) 29 U/L (15-37); Alanine Aminotransfer ALT/SGPT 18 U/L (13-56); Albumin, Serum 2.6 g/dL (3.2-5.0); Alkaline Phosphatase 56 U/L (45-117); Anion Gap 2 (5-15); BUN 8 mg/dL (7-18); BUN/Creat Ratio 14.8 RATIO (10-20); Calcium,Total 7.3 mg/dL (8.5-10.1); Chloride 115 mmol/L (98-107); Creatinine, Serum 0.54 mg/dL (0.55-1.02); EST Glomerular Filtration Rate 138 mL/min (>60); Est Glom Filt Rate - Afr Amer 167 mL/min (>60); Estimated Creatinine Clearance 96.59 ml/min; Globulin 2.7 g/dL (2.2-4.2); Glucose 93 mg/dL (74-106); Potassium 3.6 mmol/L (3.5-5.1); Protein, Total 5.3 g/dL (6.4-8.2); Sodium Level 143 mmol/L (136-145)
[2023-08-18 07:22] LABS: Anisocytosis 1+
[2023-08-18] MEDS: Ascorbic Acid 500 MG Tablet PO ×2 (09:38→22:37)
[2023-08-18] MEDS: Sertraline 50 MG Tablet 25 MG PO (09:39)
--- NOTE | 2023-08-18 11:20 | DCINST_ITS ---
Discharge Instructions Diet Discharge Diet: No restrictions Activity Discharge Activity: No Restrictions Weight Bearing Status: Full weight bearing Follow Up Care Test Results: Test results from this visit will be discussed in further detail at your follow- up appointment, if applicable. Discharge Plan Admission Admit Date/Time: 08/17/23 22:22 Primary Reason for Your Visit: nausea/vomiting and weakness Attending Provider: Nitish Freire Primary Care Provider: Jamari Zhang Consulting Providers: Amy Villalba Instructions Additional Instructions / Restrictions: You were found to be positive for a rhinovirus infection here. This is likely causing your nausea/vomiting and weakness. There is no specific medication treatment for rhinovirus, please take [id number] medications for upper respiratory symptoms as needed. Will prescribe a short course of Zofran for you as needed for your nausea and vomiting. Continue all other home medications as normal. Discharge Orders/Prescriptions Prescriptions: New ondansetron 4 mg tablet,disintegrating 4 mg PO Q6H PRN (Reason: nausea and vomiting) Qty: 12 0RF Continued metoprolol tartrate 25 mg tablet 12.5 mg PO BID 30 Days Qty: 30 1RF spironolactone 25 mg tablet 12.5 mg PO DAILY 30 Days Qty: 15 1RF ascorbic acid (vitamin C) [Vitamin C] 500 mg tablet 500 mg PO BID Slow Release Iron 142 mg (45 mg iron) tablet extended release 142 mg PO BID sertraline 25 mg tablet 25 mg PO DAILY guaifenesin [Mucinex] 1 tab PO Q6H PRN (Reason: cold symptoms) Discontinued ondansetron 4 mg tablet,disintegrating 4 mg PO Q8H PRN PRN (Reason: Nausea) Qty: 20 0RF Referrals / Follow Up: Jamari Zhang DO [Primary Care Provider] - Disposition Disposition (needs filled in before D/C Order can be placed): Home, Self Care
--- NOTE | 2023-08-18 11:25 | PCM.DC.SUM ---
Providers Date of Admission: 08/17/23 Primary Care Physician: Dr. Jamari Zhang DO Reason For Visit: INTRACTABLE N/V, MALAISE, ABDOMINAL CRAMPING Diagnosis Discharge Diagnosis (1) Nausea and vomiting: Status: Acute Code(s): R11.2 - Nausea with vomiting, unspecified Medications at Discharge Home Medications ascorbic acid (vitamin C) 500 mg tablet (Vitamin C) 500 mg PO BID supplement 07/13/23 ferrous sulfate 142 mg (45 mg iron) tablet,extended release (Slow Release Iron) 142 mg PO BID iron deficiency 07/13/23 guaifenesin 1 tab PO Q6H PRN cold symptoms 07/13/23 sertraline 25 mg tablet 25 mg PO DAILY 07/13/23 metoprolol tartrate 25 mg tablet 12.5 mg (1/2 x 25 mg) PO BID 30 days #30 tabs 08/08/23 spironolactone 25 mg tablet 12.5 mg (1/2 x 25 mg) PO DAILY 30 days #15 tabs 08/08/23 ondansetron 4 mg disintegrating tablet 4 mg PO Q6H PRN nausea and vomiting #12 tabs 08/17/23 Weight / BMI Weight Weight: 40.91 kg Body Mass Index (BMI) 17.0 ABG / Lab / Microbiology Data 08/18/23 05:35 08/18/23 05:35 Laboratory: Laboratory Results - last 24 hr 08/17/23 17:35: WBC 5.0, RBC 4.16 L, Hgb 10.6 L, Hct 34.9 L, MCV 83.9, MCH 25.5 L, MCHC 30.4 L, RDW Std Deviation 64.8 H, RDW Coeff of Vandana 21.5 H, Plt Count 168, MPV 9.4, Immature Gran % (Auto) 0.200, Neut % (Auto) 81.8 H, Lymph % (Auto) 10.2 L, [place] % (Auto) 7.6, Eos % (Auto) 0.0, Baso % (Auto) 0.2, Absolute Neuts (auto) 4.1, Absolute Lymphs (auto) 0.51 L, Nucleated RBC % 0, Differential Comment SCANNED, Anisocytosis 2+, Microcytosis 1+, Macrocytosis 1+, Sodium 141, Potassium 3.2 L, Chloride 108 H, Carbon Dioxide 27.0, Anion Gap 6, BUN 9, Creatinine 0.60, Estim Creat Clear Calc 82.89, Est GFR (MDRD) Af Amer 147, Est GFR (MDRD) Non-Af 121, BUN/Creatinine Ratio 14.9, Glucose 93, Calcium 8.4 L, Total Bilirubin 0.30 08/17/23 17:35: Total Bilirubin 0.30, Direct Bilirubin 0.10, AST 32 08/17/23 17:35: AST 30, ALT 23 08/17/23 17:35: ALT 23, Alkaline Phosphatase 76 08/17/23 17:35: Alkaline Phosphatase 75, B-Natriuretic Peptide 4.7, Total Protein 6.9 08/17/23 17:35: Total Protein 6.9, Albumin 3.4 08/17/23 17:35: Albumin 3.4, Globulin 3.5 08/17/23 17:35: Globulin 3.5, Albumin/Globulin Ratio 1.0, Lipase 20, Procalcitonin < 0.04, Serum , Qual NEGATIVE 08/17/23 19:40: Urine Color Yellow, Urine Clarity Clear, Urine pH 8.0, Ur Specific [place] 1.010, Urine Protein Negative, Urine Glucose (UA) Normal, Urine Ketones 5 H, Urine Occult Blood 250 H, Urine Nitrite Negative, Urine Bilirubin Negative, Urine Urobilinogen 1 H, Ur Leukocyte Esterase 25 H, Urine RBC 0-5 SEEN, Urine WBC 0-5 SEEN, Ur Squamous Epith Cells 0-5 SEEN, Urine Bacteria 0 SEEN, Urine Mucus 1+ 08/17/23 21:37: Magnesium 2.0, Troponin I High Sens 16 08/18/23 05:35: WBC 2.8 L, RBC 3.54 L, Hgb 9.1 L, Hct 30.5 L, MCV 86.2, MCH 25.7 L, MCHC 29.8 L, RDW Std Deviation 69.3 H, RDW Coeff of Vandana 22.4 H, Plt Count 166, MPV 9.2, Immature Gran % (Auto) 0.000, Neut % (Auto) 56.7, Lymph % (Auto) 28.7, [place] % (Auto) 13.1 H, Eos % (Auto) 1.1, Baso % (Auto) 0.4, Absolute Neuts (auto) 1.6 L, Absolute Lymphs (auto) 0.79 L, Nucleated RBC % 0, Anisocytosis 1+, Sodium 143, Potassium 3.6, Chloride 115 H, Carbon Dioxide 26.0, Anion Gap 2 L, BUN 8, Creatinine 0.54 L, Estim Creat Clear Calc 96.59, Est GFR (MDRD) Af Amer 167, Est GFR (MDRD) Non-Af 138, BUN/Creatinine Ratio 14.8, Glucose 93, Calcium 7.3 L, Total Bilirubin 0.30, AST 29, ALT 18, Alkaline Phosphatase 56, Total Protein 5.3 L, Albumin 2.6 L, Globulin 2.7, Albumin/Globulin Ratio 1.0 Microbiology: Microbiology 08/18/23 00:13 Mucosa - Nasopharyngeal Respiratory Panel (PCR) - Final Rhinovirus Radiography Diagnostic Testing: Radiology Impression Chest X-Ray 08/17/23 18:50 IMPRESSION: No acute cardiopulmonary pathology Electronically Signed: Sherif Abdullahi MD at 19:20 EST Reading Location ID and State: [address] [place] [address] Tel , Service support , D/C Instructions Discharge Diet: No restrictions Weight Bearing Status: Full weight bearing Discharge Plan Admission Admit Date/Time: 08/17/23 22:22 Primary Reason for Your Visit: nausea/vomiting and weakness Attending Provider: Nitish Freire Primary Care Provider: Jamari Zhang Consulting Providers: Amy Villalba Instructions Additional Instructions / Restrictions: You were found to be positive for a rhinovirus infection here. This is likely causing your nausea/vomiting and weakness. There is no specific medication treatment for rhinovirus, please take [id number] medications for upper respiratory symptoms as needed. Will prescribe a short course of Zofran for you as needed for your nausea and vomiting. Continue all other home medications as normal. Discharge Orders/Prescriptions Prescriptions: New ondansetron 4 mg tablet,disintegrating 4 mg PO Q6H PRN (Reason: nausea and vomiting) Qty: 12 0RF Continued metoprolol tartrate 25 mg tablet 12.5 mg PO BID 30 Days Qty: 30 1RF spironolactone 25 mg tablet 12.5 mg PO DAILY 30 Days Qty: 15 1RF ascorbic acid (vitamin C) [Vitamin C] 500 mg tablet 500 mg PO BID Slow Release Iron 142 mg (45 mg iron) tablet extended release 142 mg PO BID sertraline 25 mg tablet 25 mg PO DAILY guaifenesin [Mucinex] 1 tab PO Q6H PRN (Reason: cold symptoms) Discontinued ondansetron 4 mg tablet,disintegrating 4 mg PO Q8H PRN PRN (Reason: Nausea) Qty: 20 0RF Referrals / Follow Up: Jamari Zhang DO [Primary Care Provider] - Disposition Disposition (needs filled in before D/C Order can be placed): Home, Self Care
--- NOTE | 2023-08-18 11:49 | PHA.DC.MC.R ---
Pharmacy [facility] has performed discharge medication reconciliation and counseling for this patient. The patient's discharge medication list was reviewed for discrepancies and discrepancies were resolved. The patient was counseled on the following discharge medications and changes in medications for homegoing were reviewed. The Reason for Use, instructions for use, and potential side effects were reviewed for all new medications. The patient's questions regarding all of their medications were answered. 1. Ondansetron 4 mg PO Q6H PRN nausea/vomiting The patient was able to verbally demonstrate an understanding of their discharge medications. Medications at Discharge Home Medications ascorbic acid (vitamin C) 500 mg tablet (Vitamin C) 500 mg PO BID supplement 07/13/23 ferrous sulfate 142 mg (45 mg iron) tablet,extended release (Slow Release Iron) 142 mg PO BID iron deficiency 07/13/23 guaifenesin 1 tab PO Q6H PRN cold symptoms 07/13/23 sertraline 25 mg tablet 25 mg PO DAILY 07/13/23 metoprolol tartrate 25 mg tablet 12.5 mg (1/2 x 25 mg) PO BID 30 days #30 tabs 08/08/23 spironolactone 25 mg tablet 12.5 mg (1/2 x 25 mg) PO DAILY 30 days #15 tabs 08/08/23 ondansetron 4 mg disintegrating tablet 4 mg PO Q6H PRN nausea and vomiting #12 tabs 08/17/23
[2023-08-18] MEDS: Ferrous Sulfate 325 MG Tablet PO (12:05)
--- NOTE | 2023-08-18 13:48 | PN.HOSP_ITS ---
Reason for Visit Reason for Visit: Diagnoses Nausea with vomiting, unspecified (08/17/23) Subjective Subjective Patient admitted yesterday evening for worsening fatigue, malaise and intractable nausea/vomiting. Notably has history of recent admission for influenza A infection with resultant dilated cardiomyopathy with EF 35%. Following with cardiology, is on Lopressor 12.5 mg twice daily and spironolactone 12.5 mg daily for this and blood pressures have typically been ranging in the 80s over 50s. Initial blood pressure in ED of 79/57. Was given a 1 L bolus of normal saline with blood pressures improved into the 80s over high 50s. She was found to be positive for a rhinovirus infection and it was suspected this was causing her symptoms. Given her significant fatigue and malaise as well as borderline blood pressures, she requested admission to the hospital for further management. Patient seen at bedside this morning. She was sitting up comfortably in bed, conversing normally, in no acute distress. Noted that she had not been out of bed yet this morning but felt fine at rest. Denied any lightheadedness or dizziness. Denied any nausea or episodes of vomiting this morning. Had tolerated a small breakfast at that point. Given her improvement, plan was to discharge patient home this afternoon if she tolerated getting up and walking around the room without significant issue. However, patient significant other arrived at bedside this afternoon and was very unhappy that she was being discharged. I saw the patient and significant other at the bedside, had a 15 to 20-minute discussion with them regarding the patient's management. Significant other noted that cardiology had instructed the patient to come in to the ED yesterday, and he was frustrated that she had not been seen by cardiology yet. He was also frustrated that she did not seem like she was back to her baseline functional status and we were still planning to discharge her. Given this conversation, cardiology was consulted and nursing staff was instructed to have the patient get up and out of bed more frequently this afternoon to see how she does. Objective Data Objective Data Vital Signs: Vital Signs Temp Pulse Resp BP Pulse Ox O2 Del Method 98.7 F 83 16 83/52 L 99 Room Air 08/18/23 10:48 08/18/23 10:48 08/18/23 10:48 08/18/23 10:48 08/18/23 10:48 08/18/23 10:48 Oxygen Delivery Method Room Air Weight: 40.91 kg Body Mass Index (BMI) 17.0 Intake & Output: Intake and Output for Last 24 Hours 08/16/23 08/17/23 08/18/23 23:59 23:59 23:59 Intake Total 1000 / 1000 1600 / 1600 Balance 1000 / 1000 1600 / 1600 Lab / Micro Data 08/18/23 05:35 08/18/23 05:35 Labs: Laboratory Results - last 24 hr 08/17/23 17:35: WBC 5.0, RBC 4.16 L, Hgb 10.6 L, Hct 34.9 L, MCV 83.9, MCH 25.5 L, MCHC 30.4 L, RDW Std Deviation 64.8 H, RDW Coeff of Vandana 21.5 H, Plt Count 168, MPV 9.4, Immature Gran % (Auto) 0.200, Neut % (Auto) 81.8 H, Lymph % (Auto) 10.2 L, [place] % (Auto) 7.6, Eos % (Auto) 0.0, Baso % (Auto) 0.2, Absolute Neuts (auto) 4.1, Absolute Lymphs (auto) 0.51 L, Nucleated RBC % 0, Differential Comment SCANNED, Anisocytosis 2+, Microcytosis 1+, Macrocytosis 1+, Sodium 141, Potassium 3.2 L, Chloride 108 H, Carbon Dioxide 27.0, Anion Gap 6, BUN 9, Creatinine 0.60, Estim Creat Clear Calc 82.89, Est GFR (MDRD) Af Amer 147, Est GFR (MDRD) Non-Af 121, BUN/Creatinine Ratio 14.9, Glucose 93, Calcium 8.4 L, Total Bilirubin 0.30 08/17/23 17:35: Total Bilirubin 0.30, Direct Bilirubin 0.10, AST 32 08/17/23 17:35: AST 30, ALT 23 08/17/23 17:35: ALT 23, Alkaline Phosphatase 76 08/17/23 17:35: Alkaline Phosphatase 75, B-Natriuretic Peptide 4.7, Total Protein 6.9 08/17/23 17:35: Total Protein 6.9, Albumin 3.4 08/17/23 17:35: Albumin 3.4, Globulin 3.5 08/17/23 17:35: Globulin 3.5, Albumin/Globulin Ratio 1.0, Lipase 20, Procalcitonin < 0.04, Serum , Qual NEGATIVE 08/17/23 19:40: Urine Color Yellow, Urine Clarity Clear, Urine pH 8.0, Ur Specific [place] 1.010, Urine Protein Negative, Urine Glucose (UA) Normal, Urine Ketones 5 H, Urine Occult Blood 250 H, Urine Nitrite Negative, Urine Bilirubin Negative, Urine Urobilinogen 1 H, Ur Leukocyte Esterase 25 H, Urine RBC 0-5 SEEN, Urine WBC 0-5 SEEN, Ur Squamous Epith Cells 0-5 SEEN, Urine Bacteria 0 SEEN, Urine Mucus 1+ 08/17/23 21:37: Magnesium 2.0, Troponin I High Sens 16 08/18/23 05:35: WBC 2.8 L, RBC 3.54 L, Hgb 9.1 L, Hct 30.5 L, MCV 86.2, MCH 25.7 L, MCHC 29.8 L, RDW Std Deviation 69.3 H, RDW Coeff of Vandana 22.4 H, Plt Count 166, MPV 9.2, Immature Gran % (Auto) 0.000, Neut % (Auto) 56.7, Lymph % (Auto) 28.7, [place] % (Auto) 13.1 H, Eos % (Auto) 1.1, Baso % (Auto) 0.4, Absolute Neuts (auto) 1.6 L, Absolute Lymphs (auto) 0.79 L, Nucleated RBC % 0, Anisocytosis 1+, Sodium 143, Potassium 3.6, Chloride 115 H, Carbon Dioxide 26.0, Anion Gap 2 L, BUN 8, Creatinine 0.54 L, Estim Creat Clear Calc 96.59, Est GFR (MDRD) Af Amer 167, Est GFR (MDRD) Non-Af 138, BUN/Creatinine Ratio 14.8, Glucose 93, Calcium 7.3 L, Total Bilirubin 0.30, AST 29, ALT 18, Alkaline Phosphatase 56, Total Protein 5.3 L, Albumin 2.6 L, Globulin 2.7, Albumin/Globulin Ratio 1.0 Micro: Microbiology 08/18/23 00:13 Mucosa - Nasopharyngeal Respiratory Panel (PCR) - Final Rhinovirus Radiography Diagnostic Testing: Radiology Impression Chest X-Ray 08/17/23 18:50 IMPRESSION: No acute cardiopulmonary pathology Electronically Signed: Sherif Abdullahi MD at 19:20 EST Reading Location ID and State: [address] [place] [address] Tel , Service support , Physical Exam Const alert, oriented x3 and no apparent distress Constitutional Narrative: Young female, thin and somewhat chronically ill-appearing, mildly fatigued appearing, otherwise sitting up comfortably in bed, conversing normally, no acute distress. General Appearance: cooperative and comfortable HEENT normocephalic, head/scalp atraumatic, hearing grossly normal bilaterally, nasal mucous membranes and turbinates normal and moist oral mucous membranes Eyes PERRL, EOMs intact bilaterally and conjunctivae normal Neck full ROM and supple Chest inspection of chest normal Resp normal respiratory effort, normal air movement, no use of accessory muscles and clear to auscultation bilaterally Cardio regular rate, regular rhythm, no murmurs and peripheral pulses 2+ throughout GI normal to inspection, nondistended, normoactive bowel sounds, soft to palpation, non-tender and non-distended Back/Spine normal ROM Extremity normal to inspection, full ROM and no pedal edema Skin no rashes or lesions noted Neuro moves all extremities and no focal motor deficits Speech: speech normal Psych mental status grossly normal Assessment & Plan Assessment/Plan (1) Nausea and vomiting: (2) Cardiomyopathy: QUALIFIERS: Cardiomyopathy type: viral Qualified Code(s): B33.24 - Viral cardiomyopathy PLAN: Plan Patient is a 32-year-old female who presented [facility] ED on 08/18/2023 with worsening fatigue, malaise and intractable nausea and vomiting. 1. Recent diagnosed HFrEF with dilated cardiomyopathy, concern for low output heart failure ? Recent hospitalization in July for influenza A infection. Found to have newly reduced EF of 35% with dilated cardiomyopathy. Cardiology followed during that admission, had difficulty uptitrating medications due to persistent hypotension. ? Saw Dr. Vogel with cardiology in the office on 08/08. Continued on Lopressor 12.5 mg twice daily, spironolactone 12.5 mg daily at that time. ? Presented with worsening fatigue, malaise and nausea/vomiting. Rhinovirus infection as noted below may be contributing but per cardiology, have higher concern for low output heart failure state at this time given clear chest x-ray and normal BNP on admit but JVD on exam and persistent nausea/vomiting with meals. ? Orthostatic vitals with minimal change in blood pressure but did have significant change in heart rate, thus these were positive. ? Cardiology following. Holding home Lopressor and spironolactone. Monitor blood pressure, assistance with ambulation given concern for orthostatic hypotension. Cardiology recommending further GI evaluation for malabsorption syndrome. 2. Concern for malabsorption syndrome, suspected malnutrition ? BMI 17 on admit. Thin and quite ill-appearing on admission. Reports minimal p.o. intake over the last few days due to nausea/vomiting. ? Follows with GI outpatient for chronic iron deficiency anemia requiring IV iron transfusions as noted below. ? GI consulted, appreciate further recommendations. ? Nutrition consulted. 3. Chronic iron deficiency anemia ? Hemoglobin 10.6 on admit, down trended to 9.1 on hospital day 2 after IV fluid resuscitation. Hemoglobin was stable around 8.0 during previous hospitalization about 1 month ago. ? Has history of significant iron deficiency anemia of unclear origin, following with GI as noted above. Has history of requiring IV iron transfusions. ? Monitor CBC daily. GI consulted as noted above. 4. Mild hypokalemia, improved ? Potassium 3.2 on admit, presumed secondary to recent nausea/vomiting. Magnesium 2.0 on admit. Replete potassium as needed. 5. Rhinovirus infection ? Positive for rhinovirus on admission. Symptomatic management. 6. Anxiety and depression ? Continue home sertraline. DVT prophylaxis: Low risk, ambulate CODE STATUS: Full code, verified Expected disposition: Home, 1 to 2 days ? Patient was admitted under observation status. However, given her need for further cardiology management and GI evaluation as noted above, will be changed to inpatient status on 08/17. Total clinical time spent by myself addressing the patient's medical issues, reviewing all the data, and collaborating with patient's care team: 35 minutes. Charges/Coding Visit Charges Inpatient E&M: 04171 Subs Hosp L2
--- NOTE | 2023-08-18 16:47 | ECHOLC_ITS ---
Reason For Study: CHF Procedure This was a limited 2D transthoracic echocardiogram. Contrast injection was performed. Exam performed portable in patient room. Left Ventricle Normal LV size. The left ventricular ejection fraction is 40 %. There is mild to moderate global hypokinesis of the left ventricle. Right Ventricle Normal RV size. Normal systolic function. Atria Normal left atrium. Normal right atrium. Mitral Valve Normal mitral valve. Tricuspid Valve Normal tricuspid valve. Mild tricuspid valve insufficiency. Aortic Valve Trisinus/trileaflet aortic valve. Pulmonic Valve Normal pulmonic valve. Great Vessels Normal aortic root. The pulmonary artery is normal size. Normal inferior vena cava. Pericardium/Pleural No pericardial effusion. Medication Diluted definity 2ml given slow IV push to enhance endocardial definition. MMode/2D Measurements & Calculations LVIDd: 5.0 cm IVSd: 0.65 cm LVIDs: 3.8 cm LVPWd: 0.74 cm LVAd ap4: 28.0 cm2 FS: 23.8 % LVLd ap4: 7.0 cm EDV(MOD-sp4): 92.4 ml EDV(sp4-el): 95.7 ml LVAs ap4: 21.5 cm2 LVLs ap4: 6.4 cm ESV(MOD-sp4): 60.2 ml ESV(sp4-el): 61.5 ml EF(MOD-sp4): 34.9 % EF(sp4-el): 35.7 % SV(MOD-sp4): 32.2 ml SV(sp4-el): 34.2 ml Doppler Measurements & Calculations TR max cherelle: 197.0 cm/sec TR max P.5 mmHg ECHO/Echo Limited w/Contrast Interpretation Summary Normal LV size. The left ventricular ejection fraction is 40 %. There is mild to moderate global hypokinesis of the left ventricle. Contrast injection was performed. Compared to previous study, the left ventricu lar systolic function has improved.. Ordering Physician: Wilbert Vogel Referring Physician: Jamari Zhang Performed By: Niesha Keene, DARRYL, RVT
--- NOTE | 2023-08-18 16:48 | CON.PCM.CA_ITS ---
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 Is been very difficult to titrate any medical regimen due to her hemodynamic instability. She had been tolerating 12.5 mg of spironolactone and 12.5 mg t wice daily of metoprolol tartrate in her home environment. She has not been able to receive any since she has been hospitalized. The patient's physical exam is consistent with heart failure with JVD and S3 gallop and some crackles in the bases of her lung. However chest x-ray is clear on admission and her BNP is only 5. She does have significant malnutrition with a total protein of 5.3 albumin is 2.6 she has a low calcium of 7.3 but even corrected to an albumin of 4 this is still hypocalcemia. Her BUN is 8 and creatinine is 0.54 consistent with her frail body habitus of 5 feet tall 85 flaco nds. She is also anemic but her hemoglobin is up to 9.1 from 8.0 on her recent check. She is on iron replacement. She is also to be evaluated by GI for malabsorption. The physical exam, BNP, and hemodynamics do not match for a pure cardiomyopathy with low cardiac output. However her nausea and vomiting and other symptoms are consistent with a low cardiac output syndrome. I believe this has to have something to do with her malnourished state and we need to address that. I would recommend that GI be of engaged/consulted to get their opinion about how to address replenishing her protein and treating this malnutrition. Will repeat her echocardiogram tomorrow. If her EF has deteriorated I would recommend that we transfer to her heart failure service at [facility]. I had already been in contact with them concerning her case back in June and read discussed the situation with them this evening. I feel that we need invasive monitoring to be able to determine the appropriate therapeutic interventions to best treat her given situation. The heart failure specialist there feels like I do that we need to address her nutritional status as this may be part of the etiology of her cardiomyopathy. I have a hard time explaining her BMP of 5. She is not technically in shock at this point in time as her normal blood pressure is 85-95 systolic. She does not show any endorgan hypoperfusion at this point in time. LFTs are within normal limits her BUN and creatinine are low but are probably artificially pressed due to her malnutrition. (2) Nausea and vomiting: QUALIFIERS: Vomiting type: unspecified Qualified Code(s): R11.2 - Nausea with vomiting, unspecified PLAN: Is possible that her nausea and vomiting is related to low cardiac output syndrome. (3) Anemia: QUALIFIERS: Iron deficiency anemia type: unspecified iron deficiency Anemia type: iron deficiency Qualified Code(s): D50.9 - Iron deficiency anemia, unspecified PLAN: The patient has a longstanding history of anemia and has been evaluated at the [facility] and felt to be iron deficient. She is on replacement therapy. PLAN: Plan 1. I would avoid ambulating her in the halls until we can get a better handle on her hemodynamic status. 2. 2D echocardiogram tomorrow morning. If her EF has deteriorated we will consider transferring her to the [facility] heart failure service. I already discussed this with the patient and her . Thank you for allowing me to participate in the care of your patient. Please don't hesitate to call if any issues arise. This note was generated using a voice recognition system and there may be incorrect words, spelling, or punctuation that were not noted when reviewing the office note prior to saving. Portions of this documentation were copied and pasted from previous office visit notes to provide a cohesive continuity of the history. The note has been reviewed, edited, and updated, as necessary. HPI Consult Data Date of Consult: 08/18/23 HPI Narrative Reason for Consultation: Family requested cardiology evaluate patient's nausea HPI Narrative: LAILA HARDING, is a 32 F who presents with a complicated GI picture. She presented the emergency department yesterday after noting that upon arising yesterday morning she had some uneasiness in her stomach she tried to eat and she wound up throwing it back up she tried several times and could not keep anything down. She did not describe any pain just nausea and vomiting. She has a history of a viral cardiomyopathy with an ejection fraction of 35% to when she was hospitalized back in late June. Her her chronically low blood pressures and volatile heart rate have made it difficult to titrate medical therapy. We have been able to utilize low-dose beta-blockers and spironolactone but we have not been able to add an NITZA inhibitor due to her blood pressure. When she was evaluated in our office 08/08/2023 her blood pressure was 85/60 her heart rate was 73 and regular and at that time she was metoprolol 12.5 mg twice daily and spironolactone 12.5 mg daily. She had been tolerating this complaining only of some fatigue. She has been chronically anemic and she has had this being evaluated by the [facility] physicians. She is also scheduled to see a GI person at some point in time about malabsorption syndromes. She is very thin her weight is 85 pounds and she is 5 feet 1 inch tall. The patient has since been admitted to the hospital again and now is off all her medications blood pressures have been in the 80-90 systolic range her heart rate drops to 30s when she is laid down in the flat recumbent position. She feels dizzy when this occurs and when she is raised up to the 30 to 45 degree plane she returns to normal. She denies any shortness of breath her O2 sats has been adequate on room air and her chest x-ray was clear with no evidence of active cardiopulmonary disease. [facility] Medical History Anxiety and depression Chronic anemia Clavicle fracture History of thyroid disorder Myocarditis Painful orthopaedic hardware Home Medications ascorbic acid (vitamin C) 500 mg tablet (Vitamin C) 500 mg PO BID supplement 07/13/23 [History Last Taken 07/10/23] ferrous sulfate 142 mg (45 mg iron) tablet,extended release (Slow Release Iron) 142 mg PO BID iron deficiency 07/13/23 [History Last Taken 07/10/23] guaifenesin 1 tab PO Q6H PRN cold symptoms 07/13/23 [History Last Taken 07/12/23] sertraline 25 mg tablet 25 mg PO DAILY 07/13/23 [History Last Taken 07/10/23] metoprolol tartrate 25 mg tablet 12.5 mg (1/2 x 25 mg) PO BID 30 days #30 tabs 08/08/23 [Rx Last Taken Unknown] spironolactone 25 mg tablet 12.5 mg (1/2 x 25 mg) PO DAILY 30 days #15 tabs 08/08/23 [Rx Last Taken Unknown] ondansetron 4 mg disintegrating tablet 4 mg PO Q6H PRN nausea and vomiting #12 tabs 08/17/23 [Rx Last Taken Unknown] Allergy/AdvReac Type Severity Reaction Status Date / Time amoxicillin [Amoxicillin] Allergy Hives Verified 08/17/23 16:59 cefixime [From Suprax] Allergy Hives Verified 08/17/23 16:59 lactulose Allergy Hives Verified 08/17/23 16:59 oxycodone HCl [From Percocet] AdvReac Abd Verified 08/17/23 16:59 cramps/diarrhea Family History Mother Diabetes Heart disease Hypertension CVA (cerebral vascular accident) HLD (hyperlipidemia) Father Osteoarthritis Surgical History History of tonsillectomy and adenoidectomy Hx of tubal ligation Hx of tympanostomy tubes S/P ORIF (open reduction internal fixation) fracture Social History household members: spouse Smoking Status: Never smoker alcohol intake: never substance use type: does not use caffeine: Yes Type: carbonated beverages ROS Constitutional Constitutional: Reports as per HPI Eyes Eyes: Reports systems reviewed and no addt'l complaints, except as documented ENT HEENT: Reports systems reviewed and no addt'l complaints, except as documented Cardiovascular Cardiovascular: Reports as per HPI Respiratory/Chest Respiratory/Chest: Reports as per HPI Gastrointestinal Gastrointestinal: Reports anorexia Genitourinary Genitourinary: Reports systems reviewed and no addt'l complaints, except as documented Musculoskeletal Musculoskeletal: Reports systems reviewed and no addt'l complaints, except as documented Integumentary Integumentary: Reports systems reviewed and no addt'l complaints, except as documented Neurologic Neurologic: Reports systems reviewed and no addt'l complaints, except as documented Psychiatric Psychiatric: Reports systems reviewed and no addt'l complaints, except as documented Endocrine Endocrinology: Reports systems reviewed and no addt'l complaints, except as documented Hematologic/Lymphatic Hematologic/Lymphatic: Reports as per HPI Allergic/Immunologic Allergic/Immunologic: Reports systems reviewed and no addt'l complaints, except as documented Physical Exam Const oriented x3 HEENT normocephalic Eyes EOMs intact bilaterally Neck Carotids: Negative for bruit Chest Chest Narrative: Frail anorexic appearing chest wall. Resp normal respiratory effort Auscultation: rales bilateral base Cardio regular rate, regular rhythm, S1 normal heart sound and S2 normal heart sound Jugular Venous Distention: JVD to the level of the angle of the jaw (At 45 degrees.) Heart Sounds: gallop S3 gallop Peripheral Pulses: radial pulses present bilateral 1+ and posterior tibial pulses present bilateral diminished GI soft to palpation and no bruits Extremity no pedal edema Skin no rashes or lesions noted Neuro Neuro Narrative: Alert and oriented x 3. Psych mental status grossly normal Risk Stratification Risk Stratification Applicable: No Charges/Coding Visit Charges Inpatient E&M: 44582 Init Hosp L3 Objective Data Vital Signs: Vital Signs Temp Pulse Resp BP Pulse Ox O2 Del Method 98.4 F 36 L 14 85/50 L 99 Room Air 08/18/23 12:00 08/18/23 14:32 08/18/23 12:00 08/18/23 14:32 08/18/23 12:00 08/18/23 12:00 Oxygen Delivery Method Room Air Weight: 90 lb 3.058 oz Body Mass Index (BMI) 17.0 Intake & Output: Intake and Output for Last 24 Hours 08/16/23 08/17/23 08/18/23 23:59 23:59 23:59 Intake Total 1000 / 1000 1600 / 1600 Balance 1000 / 1000 1600 / 1600 Lab / Micro Data 08/18/23 05:35 08/18/23 05:35 Labs: Laboratory Results - last 24 hr 08/17/23 17:35: WBC 5.0, RBC 4.16 L, Hgb 10.6 L, Hct 34.9 L, MCV 83.9, MCH 25.5 L, MCHC 30.4 L, RDW Std Deviation 64.8 H, RDW Coeff of Vandana 21.5 H, Plt Count 168, MPV 9.4, Immature Gran % (Auto) 0.200, Neut % (Auto) 81.8 H, Lymph % (Auto) 10.2 L, [place] % (Auto) 7.6, Eos % (Auto) 0.0, Baso % (Auto) 0.2, Absolute Neuts (auto) 4.1, Absolute Lymphs (auto) 0.51 L, Nucleated RBC % 0, Differential Comment SCANNED, Anisocytosis 2+, Microcytosis 1+, Macrocytosis 1+, Sodium 141, Potassium 3.2 L, Chloride 108 H, Carbon Dioxide 27.0, Anion Gap 6, BUN 9, Creatinine 0.60, Estim Creat Clear Calc 82.89, Est GFR (MDRD) Af Amer 147, Est GFR (MDRD) Non-Af 121, BUN/Creatinine Ratio 14.9, Glucose 93, Calcium 8.4 L, Total Bilirubin 0.30 08/17/23 17:35: Total Bilirubin 0.30, Direct Bilirubin 0.10, AST 32 08/17/23 17:35: AST 30, ALT 23 08/17/23 17:35: ALT 23, Alkaline Phosphatase 76 08/17/23 17:35: Alkaline Phosphatase 75, B-Natriuretic Peptide 4.7, Total Protein 6.9 08/17/23 17:35: Total Protein 6.9, Albumin 3.4 08/17/23 17:35: Albumin 3.4, Globulin 3.5 08/17/23 17:35: Globulin 3.5, Albumin/Globulin Ratio 1.0, Lipase 20, Procalcitonin < 0.04, Serum , Qual NEGATIVE 08/17/23 19:40: Urine Color Yellow, Urine Clarity Clear, Urine pH 8.0, Ur Specific [place] 1.010, Urine Protein Negative, Urine Glucose (UA) Normal, Urine Ketones 5 H, Urine Occult Blood 250 H, Urine Nitrite Negative, Urine Bilirubin Negative, Urine Urobilinogen 1 H, Ur Leukocyte Esterase 25 H, Urine RBC 0-5 SEEN, Urine WBC 0-5 SEEN, Ur Squamous Epith Cells 0-5 SEEN, Urine Bacteria 0 SEEN, Urine Mucus 1+ 08/17/23 21:37: Magnesium 2.0, Troponin I High Sens 16 08/18/23 05:35: WBC 2.8 L, RBC 3.54 L, Hgb 9.1 L, Hct 30.5 L, MCV 86.2, MCH 25.7 L, MCHC 29.8 L, RDW Std Deviation 69.3 H, RDW Coeff of Vandana 22.4 H, Plt Count 166, MPV 9.2, Immature Gran % (Auto) 0.000, Neut % (Auto) 56.7, Lymph % (Auto) 28.7, [place] % (Auto) 13.1 H, Eos % (Auto) 1.1, Baso % (Auto) 0.4, Absolute Neuts (auto) 1.6 L, Absolute Lymphs (auto) 0.79 L, Nucleated RBC % 0, Anisocytosis 1+, Sodium 143, Potassium 3.6, Chloride 115 H, Carbon Dioxide 26.0, Anion Gap 2 L, BUN 8, Creatinine 0.54 L, Estim Creat Clear Calc 96.59, Est GFR (MDRD) Af Amer 167, Est GFR (MDRD) Non-Af 138, BUN/Creatinine Ratio 14.8, Glucose 93, Calcium 7.3 L, Total Bilirubin 0.30, AST 29, ALT 18, Alkaline Phosphatase 56, Total Protein 5.3 L, Albumin 2.6 L, Globulin 2.7, Albumin/Globulin Ratio 1.0 Micro: Microbiology 08/18/23 00:13 Mucosa - Nasopharyngeal Respiratory Panel (PCR) - Final Rhinovirus Rhythm Strip Rhythm Strip: Sinus Rhythm Rate: 80 Cardiology Labs/Tests 08/17/23 17:35: WBC 5.0, RBC 4.16 L, Hgb 10.6 L, Hct 34.9 L, MCV 83.9, MCH 25.5 L, MCHC 30.4 L, Plt Count 168, MPV 9.4, Immature Gran % (Auto) 0.200, Neut % (Auto) 81.8 H, Lymph % (Auto) 10.2 L, [place] % (Auto) 7.6, Eos % (Auto) 0.0, Baso % (Auto) 0.2, Absolute Neuts (auto) 4.1, Nucleated RBC % 0, Sodium 141, Potassium 3.2 L, Chloride 108 H, Carbon Dioxide 27.0, Anion Gap 6, BUN 9, Creatinine 0.60, Est GFR (MDRD) Af Amer 147, Est GFR (MDRD) Non-Af 121, BUN/Creatinine Ratio 14.9, Glucose 93, Calcium 8.4 L, Total Bilirubin 0.30 08/17/23 17:35: Total Bilirubin 0.30, Direct Bilirubin 0.10, B-Natriuretic Peptide 4.7 08/17/23 19:40: Urine Color Yellow, Urine Clarity Clear, Urine pH 8.0, Ur Specific [place] 1.010, Urine Protein Negative, Urine Glucose (UA) Normal, Urine Ketones 5 H, Urine Occult Blood 250 H, Urine Nitrite Negative, Urine Bilirubin Negative, Urine Urobilinogen 1 H, Ur Leukocyte Esterase 25 H, Urine RBC 0-5 SEEN, Urine WBC 0-5 SEEN 08/17/23 21:37: Magnesium 2.0 08/18/23 05:35: WBC 2.8 L, RBC 3.54 L, Hgb 9.1 L, Hct 30.5 L, MCV 86.2, MCH 25.7 L, MCHC 29.8 L, Plt Count 166, MPV 9.2, Immature Gran % (Auto) 0.000, Neut % (Auto) 56.7, Lymph % (Auto) 28.7, [place] % (Auto) 13.1 H, Eos % (Auto) 1.1, Baso % (Auto) 0.4, Absolute Neuts (auto) 1.6 L, Nucleated RBC % 0, Sodium 143, Potassium 3.6, Chloride 115 H, Carbon Dioxide 26.0, Anion Gap 2 L, BUN 8, Creatinine 0.54 L, Est GFR (MDRD) Af Amer 167, Est GFR (MDRD) Non-Af 138, BUN/Creatinine Ratio 14.8, Glucose 93, Calcium 7.3 L, Total Bilirubin 0.30 Rhythm: EKG: ECHO: Stress Test: Cardiac Cath: PCI: CT Surgery: Holter monitor: EPS: PPM: CXR: Chest CT Scan: Radiography Diagnostic Testing: Radiology Impression Chest X-Ray 08/17/23 18:50 IMPRESSION: No acute cardiopulmonary pathology Electronically Signed: Sherif Abdullahi MD at 19:20 EST Reading Location ID and State: [facility] / [place] Tel , Service support ,
--- NOTE | 2023-08-18 17:38 | NURSING ---
This RN agrees with nursing home manager charting. Joan Stroud MSN, RN
--- NOTE | 2023-08-18 22:49 | EKG12_ITS ---
Test Reason : CHEST PAIN Blood Pressure : / mmHG Vent. Rate : 069 BPM Atrial Rate : 069 BPM P-R Int : 160 ms QRS Dur : 090 ms QT Int : 422 ms P-R-T Axes : 065 060 056 degrees QTc Int : 452 ms Sinus rhythm with frequent Premature ventricular complexes Otherwise normal ECG When compared with ECG of 17-AUG-2023 18:30, MANUAL COMPARISON REQUIRED, DATA IS UNCONFIRMED Confirmed by Wilbert Vogel ([id number]), graphic editor ANICETO RUDD ([id number]) on 08/22/2023 11:30:04 AM Referred By: Confirmed By:Wilbert Vogel
[2023-08-19] VITALS (10 sets, daily range): BP systolic 81–98; BP diastolic 49–71; PULSE 54–80; RESP 16; TEMP 36.6–37; O2SAT 98–100; BMI 17.0
[2023-08-19] MEDS: Acetaminophen 325 MG Tablet 650 MG PO (00:52)
[2023-08-19] MEDS: Dicyclomine 10 MG Capsule PO ×4 (05:52→21:12)
[2023-08-19] MEDS: Pantoprazole Sodium 20 MG Tablet PO ×2 (07:33→21:12)
[2023-08-19] MEDS: Sertraline 50 MG Tablet 25 MG PO (07:33)
[2023-08-19] MEDS: Ascorbic Acid 500 MG Tablet PO ×2 (07:33→21:12)
[2023-08-19 08:07] LABS: Hematocrit 31.2 % (37-47); Hemoglobin 9.2 g/dL (12.0-15.0); Mean Corp Hgb Conc 29.5 g/dL (32-36); Mean Corpuscular Hgb 24.9 pg (27.0-32.0); Mean Corpuscular Volume 84.6 fL (81-99); Mean Platelet Vol. 9.4 fl (6.2-12.0); POSITIVE MORPHOLOGY YES; Platelet Count 194 K/mm3 (150-450); RBC Distribution Width CV 22.7 % (11.6-14.6); RBC Distribution Width SD 67.7 fl (35.1-43.9); Red Blood Count 3.69 M/mm3 (4.2-5.4)
[2023-08-19 08:17] LABS: Scan Indicated on CBC? Y/N YES- FLAGS NOTED
[2023-08-19 08:37] LABS: Anion Gap 2 (5-15); BUN 5 mg/dL (7-18); BUN/Creat Ratio 10.9 RATIO (10-20); Calcium,Total 7.8 mg/dL (8.5-10.1); Chloride 114 mmol/L (98-107); Creatinine, Serum 0.46 mg/dL (0.55-1.02); EST Glomerular Filtration Rate 168 mL/min (>60); Est Glom Filt Rate - Afr Amer 203 mL/min (>60); Estimated Creatinine Clearance 113.39 ml/min; Glucose 82 mg/dL (74-106); Potassium 3.3 mmol/L (3.5-5.1); Sodium Level 144 mmol/L (136-145)
[2023-08-19 10:13] LABS: Differential Comment SCANNED
--- NOTE | 2023-08-19 10:16 | PCM.PN.CARD ---
Subjective Subjective The patient was interviewed and discussion was done with Dr. Freire the patient and her on the phone. The patient continues to report she feels about the same. An echocardiogram done this morning showed that her ejection fraction has not changed is 35% there is no significant tricuspid regurgitation. Her BNP was only 5. This is not consistent with florid heart failure or volume retention. She probably does have some decrease in her cardiac output given her ejection fraction of 35% but she is not in heart failure at this time. Her physical exam with her JVD and her crackles in the bases of her lungs are consistent with heart failure however her BNP and her chest x-ray do not support that. She also has a lab work that shows her albumin of 2.6 and a calcium of 7.3 even corrected for the albumin is low. We went into detail about her past medical history apparently ever since she started having children things have started to change. She has always been thin with a weight of around 85 to 86 pounds. But she has had progressive anemia since the of her second or third child and her daughter was diagnosed with celiac disease. The patient is supposed to see a GI physician at the [facility] but has not been able to schedule that yet. She had she had received iron for her ongoing chronic anemia during at least one of her pregnancies. She has delivered 5 children vaginally. Objective Data Vital Signs: Vital Signs Temp Pulse Resp BP Pulse Ox O2 Del Method 98 F 80 16 81/49 L 99 Room Air 08/19/23 08:58 08/19/23 08:58 08/19/23 08:58 08/19/23 08:58 08/19/23 08:58 08/19/23 08:58 Oxygen Delivery Method Room Air Weight: 90 lb 3.058 oz Body Mass Index (BMI) 17.0 Intake & Output: Intake and Output for Last 24 Hours 08/17/23 08/18/23 08/19/23 23:59 23:59 23:59 Intake Total 1000 / 1000 1600 / 2220 860 / 860 Balance 1000 / 1000 1600 / 2220 860 / 860 Lab / Micro Data Attestation: I reviewed the patient's lab results. 08/19/23 07:39 08/19/23 07:39 Labs: Laboratory Results - last 24 hr 08/19/23 07:39: WBC 2.0 L, RBC 3.69 L, Hgb 9.2 L, Hct 31.2 L, MCV 84.6, MCH 24.9 L, MCHC 29.5 L, RDW Std Deviation 67.7 H, RDW Coeff of Vandana 22.7 H, Plt Count 194, MPV 9.4, Differential Comment SCANNED, Sodium 144, Potassium 3.3 L, Chloride 114 H, Carbon Dioxide 28.0, Anion Gap 2 L, BUN 5 L, Creatinine 0.46 L, Estim Creat Clear Calc 113.39, Est GFR (MDRD) Af Amer 203, Est GFR (MDRD) Non-Af 168, BUN/Creatinine Ratio 10.9, Glucose 82, Calcium 7.8 L Micro: Microbiology 08/18/23 00:13 Mucosa - Nasopharyngeal Respiratory Panel (PCR) - Final Rhinovirus Rhythm Strip Rhythm Strip: Sinus Rhythm Rate: 80 Cardiology Labs/Tests 08/19/23 07:39: WBC 2.0 L, RBC 3.69 L, Hgb 9.2 L, Hct 31.2 L, MCV 84.6, MCH 24.9 L, MCHC 29.5 L, Plt Count 194, MPV 9.4, Sodium 144, Potassium 3.3 L, Chloride 114 H, Carbon Dioxide 28.0, Anion Gap 2 L, BUN 5 L, Creatinine 0.46 L, Est GFR (MDRD) Af Amer 203, Est GFR (MDRD) Non-Af 168, BUN/Creatinine Ratio 10.9, Glucose 82, Calcium 7.8 L Rhythm: EKG: ECHO: Stress Test: Cardiac Cath: PCI: CT Surgery: Holter monitor: EPS: PPM: CXR: Chest CT Scan: Physical Exam Const oriented x3 HEENT normocephalic Eyes EOMs intact bilaterally Neck Neck Narrative: The patient is cachectic appearing with JVD noted to the angle of the jaw at 45 degrees. Her echocardiogram today did not show any significant tricuspid regurgitation. Carotids: Negative for bruit Chest inspection of chest normal Resp normal respiratory effort Auscultation: crackles bilateral base Cardio regular rate, no murmurs and no rub Rhythm: abnormal rhythm ectopic beats Heart Sounds: gallop S3 gallop (Difficult to hear what appears to be an S3 gallop along the right sternal border. There are also multiple extrasystoles.) GI GI Narrative: Scaphoid and thin. 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 Her chest x-ray does not show any heart failure. Her BNP is 5. However if she has the appearance of a low cardiac output syndrome. Her blood work suggest malnutrition she was hypokalemic when she first came in and is hypocalcemic now. Even corrected for albumin of 2.6 her calcium is low. I discussed the situation with the heart failure specialist at [facility] and they agree that this appears to be a malnutrition issue that is exacerbating the impact of her low cardiac output from an ejection fraction of 35%. I have recommended and discussed with Dr. Freire the patient and her that we should obtain guidance from from gastroenterology and/or dietary to get her on the appropriate supplements and/or testing performed to figure out if this is some type of malabsorption syndrome. The patient did report that she had had transient hypothyroidism with her first but she was treated with medication and it did not recur with other pregnancies. (2) Anemia: QUALIFIERS: Anemia type: iron deficiency Iron deficiency anemia type: unspecified iron deficiency Qualified Code(s): D50.9 - Iron deficiency anemia, unspecified PLAN: The patient's hemoglobin is up to 9.2 it was 8 when she was hospitalized back in June. She has received iron. (3) Nausea and vomiting: QUALIFIERS: Vomiting type: unspecified Qualified Code(s): R11.2 - Nausea with vomiting, unspecified PLAN: The nausea and vomiting seems to have resolved she had been on Ensure at home and she is unsure of how much she was taking in or retaining. Dr. Freire will asked the gastroenterology team to evaluate the patient to maybe give us some guidance around supplements and/or further evaluation that would be indicated to rule out malabsorption. PLAN: Plan 1. Given the patient's heart rate dropping with recumbency and her blood pressure in the 85 systolic range we cannot reinstitute any vasoactive medications to treat her heart failure. The Lopressor and spironolactone are on hold. 2. Will await to see the results of gastroenterology evaluation. 3. The patient can progress activities as blood pressure and heart rate will tolerate. At this point in time she needs to be out of the bed with assistance given her heart rate and blood pressure issues during this hospitalization. Charges/Coding Visit Charges Inpatient E&M: 11528 Subs Hosp L3
[2023-08-19] MEDS: Ferrous Sulfate 325 MG Tablet PO (10:58)
[2023-08-19] MEDS: Calcium Gluconate IV 2 GM in 0.9% Normal Saline (100mL Bag) 100 ML IV (12:14)
[2023-08-19 12:48] LABS: Iron 23 ug/dL (50-170); Iron Binding Capacity,Total 220 ug/dL (250-450); PERCENT IRON SATURATION 10.5 % (15.0-55.0)
[2023-08-19 12:51] LABS: Ferritin 290 ng/mL (8-252)
[2023-08-19 12:58] LABS: Vitamin D,25 Hydroxy 30.5 ng/mL
--- NOTE | 2023-08-19 13:03 | PN.HOSP_ITS ---
Reason for Visit Reason for Visit: Diagnoses Viral cardiomyopathy (08/17/23) Iron deficiency anemia, unspecified (08/17/23) Nausea with vomiting, unspecified (08/17/23) Subjective Subjective Patient had episode yesterday afternoon and overnight of bradycardia to the 30s to 40s that developed with her lying flat. She also felt quite weak with am bulating hallways and was noted to be orthostatic positive. No other acute events overnight. Patient seen at bedside this morning. Dr. Vogel with cardiology was speaking with patient at the bedside and was present over the phone. Several things discussed during conversation, see Dr. Vogel' note for further details. In short, patient and are agreeable to having the GI doctor see her while here to discuss further workup for a possible malabsorption syndrome. Noted to them that it may be best for her to remain here for the next few days at least to complete further workup and they had no issue with this. No other acute concerns this time. Objective Data Objective Data Vital Signs: Vital Signs Temp Pulse Resp BP Pulse Ox O2 Del Method 98 F 69 16 90/59 L 98 Room Air 08/19/23 11:14 08/19/23 11:15 08/19/23 11:14 08/19/23 11:14 08/19/23 11:14 08/19/23 11:14 Oxygen Delivery Method Room Air Weight: 40.91 kg Body Mass Index (BMI) 17.0 Intake & Output: Intake and Output for Last 24 Hours 08/17/23 08/18/23 08/19/23 23:59 23:59 23:59 Intake Total 1000 / 1000 1600 / 2220 1260 / 1260 Balance 1000 / 1000 1600 / 2220 1260 / 1260 Lab / Micro Data 08/19/23 07:39 08/19/23 07:39 Labs: Laboratory Results - last 24 hr 08/19/23 07:39: WBC 2.0 L, RBC 3.69 L, Hgb 9.2 L, Hct 31.2 L, MCV 84.6, MCH 24.9 L, MCHC 29.5 L, RDW Std Deviation 67.7 H, RDW Coeff of Vandana 22.7 H, Plt Count 194, MPV 9.4, Differential Comment SCANNED, Sodium 144, Potassium 3.3 L, Chloride 114 H, Carbon Dioxide 28.0, Anion Gap 2 L, BUN 5 L, Creatinine 0.46 L, Estim Creat Clear Calc 113.39, Est GFR (MDRD) Af Amer 203, Est GFR (MDRD) Non-Af 168, BUN/Creatinine Ratio 10.9, Glucose 82, Calcium 7.8 L, Iron 23 L, TIBC 220 L , Iron Saturation 10.5 L 08/19/23 12:04: Ferritin 290 H, Vitamin D 25-Hydroxy 30.5 Micro: Microbiology 08/18/23 00:13 Mucosa - Nasopharyngeal Respiratory Panel (PCR) - Final Rhinovirus Radiography Diagnostic Testing: Radiology Impression Echocardiogram 08/18/23 16:47 Interpretation Summary Normal LV size. The left ventricular ejection fraction is 40 %. There is mild to moderate global hypokinesis of the left ventricle. Contrast injection was performed. Compared to previous study, the left ventricular systolic function has improved.. Ordering Physician: Wilbert Vogel Referring Physician: Jamari Zhang Performed By: Niesha Keene, DARRYL, RVT Rhythm Strip Rhythm Strip: Sinus Rhythm Rate: 80 Physical Exam Const alert, oriented x3 and no apparent distress Constitutional Narrative: Young female, thin and somewhat chronically ill-appearing, mildly fatigued appearing, otherwise sitting up comfortably in bed, conversing normally, no acute distress. General Appearance: cooperative and comfortable HEENT normocephalic, head/scalp atraumatic, hearing grossly normal bilaterally, nasal mucous membranes and turbinates normal and moist oral mucous membranes Eyes PERRL, EOMs intact bilaterally and conjunctivae normal Neck full ROM and supple Chest inspection of chest normal Resp normal respiratory effort, normal air movement, no use of accessory muscles and clear to auscultation bilaterally Cardio regular rate, regular rhythm, no murmurs and peripheral pulses 2+ throughout GI normal to inspection, nondistended, normoactive bowel sounds, soft to palpation, non-tender and non-distended Back/Spine normal ROM Extremity normal to inspection, full ROM and no pedal edema Skin no rashes or lesions noted Neuro moves all extremities and no focal motor deficits Speech: speech normal Psych mental status grossly normal Assessment & Plan Assessment/Plan (1) Nausea and vomiting: QUALIFIERS: Vomiting type: unspecified Qualified Code(s): R11.2 - Nausea with vomiting, unspecified (2) Cardiomyopathy: QUALIFIERS: Cardiomyopathy type: viral Qualified Code(s): B33.24 - Viral cardiomyopathy PLAN: Plan Patient is a 32-year-old female who presented [facility] ED on 08/18/2023 with worsening fatigue, malaise and intractable nausea and vomiting. 1. Recent diagnosed HFrEF with dilated cardiomyopathy, concern for low output heart failure ? Recent hospitalization in July for influenza A infection. Found to have newly reduced EF of 35% with dilated cardiomyopathy. Cardiology followed during that admission, had difficulty uptitrating medications due to persistent hypotension. ? Saw Dr. Vogel with cardiology in the office on 08/08. Continued on Lopressor 12.5 mg twice daily, spironolactone 12.5 mg daily at that time. ? Presented with worsening fatigue, malaise and nausea/vomiting. Rhinovirus infection as noted below may be contributing but per cardiology, have higher concern for low output heart failure state at this time given clear chest x-ray and normal BNP on admit but JVD on exam and persistent nausea/vomiting with meals. ? Orthostatic vitals with minimal change in blood pressure but did have signi ficant change in heart rate, thus these were positive. ? Repeat TTE on 08/18 showed EF 40%, mild to moderate global hypokinesis of LV, no changes from previous echo 1 month ago. ? Cardiology following. Continue to hold Lopressor and spironolactone given her heart rate dropping recumbency and low blood pressure overall. GI consulted as noted below. 2. Concern for malabsorption syndrome, suspected malnutrition ? BMI 17 on admit. Thin and quite ill-appearing on admission. Reports minimal p.o. intake over the last few days due to nausea/vomiting. ? Follows with GI outpatient for chronic iron deficiency anemia requiring IV iron transfusions as noted below. ? GI consulted, appreciate further recommendations. Nutrition consulted as well. 3. Chronic iron deficiency anemia ? Hemoglobin 10.6 on admit, down trended to 9.1 on hospital day 2 after IV fluid resuscitation. Hemoglobin was stable around 8.0 during previous hospitalization about 1 month ago. ? Has history of significant iron deficiency anemia of unclear origin, following with GI as noted above. Has history of requiring IV iron transfusions. ? Hemoglobin has remained stable around 9. Repeat iron studies on 08/18 showed low iron and mildly low TIBC, but ferritin much improved and actually slightly above normal range. ? Monitor CBC daily. GI consulted as noted above. 4. Mild hypokalemia, improved ? Potassium 3.2 on admit, presumed secondary to recent nausea/vomiting with possibly some degree of malabsorption. Magnesium 2.0 on admit. Replete potassium as needed. 5. Mild hypocalcemia ? Calcium 7.3 on 08/17, albumin 2.6, corrected calcium 8.4. Given concern for both malfunction syndrome and bradycardia with recumbency, given dose of 2 g calcium gluconate IV on 08/18. Will also start p.o. calcium supplement 5 mg 3 times daily with meals. Vitamin D level ordered as well. 6. Rhinovirus infection ? Positive for rhinovirus on admission. Symptomatic management. 7. Anxiety and depression ? Continue home sertraline. 8. Debility ? Secondary to medical concerns as noted above. PT/OT/case management following . DVT prophylaxis: Low risk, ambulate CODE STATUS: Full code, verified Expected disposition: Home, 2 to 3 days Total clinical time spent by myself addressing the patient's medical issues, reviewing all the data, and collaborating with patient's care team: 35 minutes. Charges/Coding Visit Charges Inpatient E&M: 87369 Subs Hosp L2
--- NOTE | 2023-08-19 14:21 | CON.PCM.GI_ITS ---
HPI Consult Data Date of Consult: 08/19/23 HPI Narrative Reason for Consultation: Protein losing enteropathy and anemia HPI Narrative: LAILA HARDING is a 32 y/o F w/ PMHx: Recent 07/2022 Acute Myocarditis/Cardiomyopathy secondary to Acute Viral Influenza B Illness, Chronic anemia/Fe deficiency anemia, Anxiety and Depression who presents to the [facility] ED on 08/17/23 with history of 24 hours of worsening fatigue, malaise and then onset over the last 12 hours intractable nausea and emesis with generalized abdominal cramping without diarrhea nor any fever or chills. She denies dyspnea, orthopnea, weight gain, chest pain. She denies any recent ill contacts in the home. Workup in the ED included T98.1, heart rate 104, BP 79/57, respiratory rate 16, on high percent on room air, most recent vital signs heart rate 69, BP 88/59, respiratory rate 16, 96% on room air, orthostatics not marked, review of previous vital signs during prior presentations with chronically low blood pressure evident ,CBC with WBC 5.0, hemoglobin 10.6, MCV 83.9, platelet 168 with lymphopenia, CMP with potassium 3.2, chloride 108, hepatic profile unremarkable, lipase 20, serum negative, urinalysis with ketone 5, occult blood 250, negative nitrite, leukocyte Estrace 25 with no obvious evidence of UTI nor any marked urine RBCs of note, chest x-ray with no acute cardiopulmonary findings, EKG with SR without acute evidence of ischemia, magnesium 2.0, troponin 16, BNP 4.7. She is currently being seen by cardiology for viral cardiomyopathy and hypotens ion. I was asked to see her due to her inability to gain weight and iron deficiency anemia. She has been following up with hematology and has been is receiving iron transfusions for iron deficiency anemia. She has a daughter with celiac disease. She also has a family history of spontaneous blood clotting resulting in a stroke in her mother. She was diagnosed with severe hyperthyroidism during her last and was treated with medications. She said on follow-up blood work that her thyroid studies were normal. In the hospital she is being treated for hypocalcemia and hypokalemia. Her hemoglobin has been relatively stable since being in the hospital although today it did drop down from 10.4-9.3. She says she has normal bowel movements on a daily basis and denies any diarrhea. Only medicines that she takes on a daily basis are sertraline for depression and iron prior to being on medicines for her cardiomyopathy. [facility] Medical History Anxiety and depression Chronic anemia Clavicle fracture History of thyroid disorder Myocarditis Painful orthopaedic hardware Home Medications ascorbic acid (vitamin C) 500 mg tablet (Vitamin C) 500 mg PO BID supplement 07/13/23 [History Last Taken 07/10/23] ferrous sulfate 142 mg (45 mg iron) tablet,extended release (Slow Release Iron) 142 mg PO BID iron deficiency 07/13/23 [History Last Taken 07/10/23] guaifenesin 1 tab PO Q6H PRN cold symptoms 07/13/23 [History Last Taken 07/12/23] sertraline 25 mg tablet 25 mg PO DAILY 07/13/23 [History Last Taken 07/10/23] metoprolol tartrate 25 mg tablet 12.5 mg (1/2 x 25 mg) PO BID 30 days #30 tabs 08/08/23 [Rx Last Taken Unknown] spironolactone 25 mg tablet 12.5 mg (1/2 x 25 mg) PO DAILY 30 days #15 tabs 08/08/23 [Rx Last Taken Unknown] ondansetron 4 mg disintegrating tablet 4 mg PO Q6H PRN nausea and vomiting #12 tabs 08/17/23 [Rx Last Taken Unknown] Allergy/AdvReac Type Severity Reaction Status Date / Time amoxicillin [Amoxicillin] Allergy Hives Verified 08/17/23 16:59 cefixime [From Suprax] Allergy Hives Verified 08/17/23 16:59 lactulose Allergy Hives Verified 08/17/23 16:59 oxycodone HCl [From Percocet] AdvReac Abd Verified 08/17/23 16:59 cramps/diarrhea Family History Mother Diabetes Heart disease Hypertension CVA (cerebral vascular accident) HLD (hyperlipidemia) Father Osteoarthritis Surgical History History of tonsillectomy and adenoidectomy Hx of tubal ligation Hx of tympanostomy tubes S/P ORIF (open reduction internal fixation) fracture Social History household members: spouse Smoking Status: Never smoker alcohol intake: never substance use type: does not use caffeine: Yes Type: carbonated beverages ROS ROS Narrative Admission Review of Systems: CONSTITUTIONAL: No weight loss, fever, chills, + weakness or fatigue. HEENT: Eyes: No visual loss, blurred vision, double vision or yellow sclerae. Ears, Nose, Throat: No hearing loss, sneezing, congestion, runny nose or sore throat. SKIN: No rash or itching, lesions, wounds. CARDIOVASCULAR: No chest pain, chest pressure or chest discomfort, palpitations, edema, orthopnea, syncopal events. RESPIRATORY: No shortness of breath, cough or sputum, wheezing, hemoptysis. GASTROINTESTINAL: + anorexia, nausea, vomiting, abdominal cramping. No diarrhea, melena, BRBPR. GENITOURINARY: No dysuria, frequency, urgency or retention. NEUROLOGICAL: No headache, dizziness, syncope, paralysis, ataxia, numbness or tingling in the extremities, focal weakness, change in bowel or bladder control, seizure. MUSCULOSKELETAL: + muscle, back pain, joint pain or stiffness. HEMATOLOGIC: + anemia. No bleeding or easy bruising. LYMPHATICS: No enlarged nodes. No history of splenectomy. PSYCHIATRIC: + history of depression and anxiety. ENDOCRINOLOGIC: No reports of sweating, cold or heat intolerance. No polyuria or polydipsia. ALLERGIES: No history of asthma, hives, eczema or rhinitis. Constitutional Constitutional: Reports as per HPI Eyes Eyes: Reports systems reviewed and no addt'l complaints, except as documented ENT HEENT: Reports systems reviewed and no addt'l complaints, except as documented Cardiovascular Cardiovascular: Reports as per HPI Respiratory/Chest Respiratory/Chest: Reports as per HPI Gastrointestinal Gastrointestinal: Reports anorexia Genitourinary Genitourinary: Reports systems reviewed and no addt'l complaints, except as documented Musculoskeletal Musculoskeletal: Reports systems reviewed and no addt'l complaints, except as documented Integumentary Integumentary: Reports systems reviewed and no addt'l complaints, except as documented Neurologic Neurologic: Reports systems reviewed and no addt'l complaints, except as documented Psychiatric Psychiatric: Reports systems reviewed and no addt'l complaints, except as documented Endocrine Endocrinology: Reports systems reviewed and no addt'l complaints, except as documented Hematologic/Lymphatic Hematologic/Lymphatic: Reports as per HPI Allergic/Immunologic Allergic/Immunologic: Reports systems reviewed and no addt'l complaints, except as documented Physical Exam Narrative Physical Examination: General: Awake, alert, oriented x 3 and cooperative, seated upright in the ED bed in no apparent distress, fatigued appearing. Skin: Normal color, normal turgor, no icterus, no cyanosis. HEENT: AT/NC, EOMI, PERRLA, dry MM, no carotid bruits or JVD noted. Lungs: CTA bilaterally, moderate effort, mild decrease BL bases, no rales, ronchi or wheezing. Heart: Regular rate and rhythm; no gallop, rub audible. Abdomen: Soft, thin habitus, NTTP, ND, hyperactive BS, no appreciated HSM. Extremities: No cyanosis, clubbing, or edema. Neurological: Patient awake, alert, oriented as noted, cognitive function intact; pupils equally reactive to light and accommodation, cranial nerves II- XII grossly normal, moving all 4 extremities, no focal deficits, strength improved, mildly to moderately global decrease secondary to presentation complaints. Psychiatric: Affect appears flat, fatigued, no acute evidence of depressive or anxiety feelings but does have underlying history. Lab / Micro Data 08/19/23 07:39 08/19/23 07:39 Labs: Laboratory Results - last 24 hr 08/19/23 07:39: WBC 2.0 L, RBC 3.69 L, Hgb 9.2 L, Hct 31.2 L, MCV 84.6, MCH 24.9 L, MCHC 29.5 L, RDW Std Deviation 67.7 H, RDW Coeff of Vandana 22.7 H, Plt Count 194, MPV 9.4, Differential Comment SCANNED, Sodium 144, Potassium 3.3 L, Chloride 114 H, Carbon Dioxide 28.0, Anion Gap 2 L, BUN 5 L, Creatinine 0.46 L, Estim Creat Clear Calc 113.39, Est GFR (MDRD) Af Amer 203, Est GFR (MDRD) Non-Af 168, BUN/Creatinine Ratio 10.9, Glucose 82, Calcium 7.8 L, Iron 23 L, TIBC 220 L , Iron Saturation 10.5 L 08/19/23 12:04: Ferritin 290 H, Vitamin D 25-Hydroxy 30.5 Rhythm Strip Rhythm Strip: Sinus Rhythm Rate: 80 Imaging Radiology Impression Echocardiogram 08/18/23 16:47 Interpretation Summary Normal LV size. The left ventricular ejection fraction is 40 %. There is mild to moderate global hypokinesis of the left ventricle. Contrast injection was performed. Compared to previous study, the left ventricular systolic function has improved.. Ordering Physician: Wilbert Vogel Referring Physician: Jamari Zhang Performed By: Niesha Keene, DARRYL, RVT Assessment & Plan Assessment/Plan (1) Nausea and vomiting: QUALIFIERS: Vomiting type: unspecified Qualified Code(s): R11.2 - Nausea with vomiting, unspecified (2) Abdominal pain: (3) Anemia: QUALIFIERS: Anemia type: iron deficiency Iron deficiency anemia type: unspecified iron deficiency Qualified Code(s): D50.9 - Iron deficiency anemia, unspecified PLAN: Plan 32-year-old with recent diagnosis of infectious cardiomyopathy from influenza B comes in with progressive fatigue and weakness discovered to have RSV with a history of iron deficiency anemia and weight loss. The differential diagnosis does include hypoadrenalism, celiac sprue, less likely autoimmune enteropathy or protein-losing enteropathy. We will need to perform biochemical workup to see if she has any autoimmune disease that was contributing to iron deficiency anemia and weight loss. That would be autoimmune gastritis or pernicious a nemia. Recommend: -Biochemical workup -EGD and colonoscopy with biopsy and possible capsule endoscopy -If patient is here on 08/21/2023 then we will perform both procedures then. In the meantime I will send off blood work. -Clear liquid diet after midnight and prep for EGD and colonoscopy on 08/21/2023. Charges/Coding Visit Charges Inpatient E&M: 67474 Init Hosp L3
[2023-08-19] MEDS: Calcium (Elemental) 500 MG Tablet PO (16:52)
[2023-08-19 17:01] LABS: Erythrocyte Sedimentation Rate 4 mm/hr (0-30)
[2023-08-19 17:24] LABS: CRP < 2.90 mg/L (0.0-3.0); Free T3 2.2 pg/mL (2.18-3.98); Magnesium 2.2 mg/dL (1.6-2.6); Phosphorus 1.8 mg/dL (2.5-4.9); T4 Free Direct 0.81 ng/dL (0.76-1.46)
[2023-08-19 23:46] LABS: Internal QC Validated? YES +Cl - CLEAR BKGD; Pregnancy, Urine Negative Negative
[2023-08-20] VITALS (8 sets, daily range): BP systolic 84–111; BP diastolic 49–63; PULSE 60–76; RESP 14–16; TEMP 36.4–36.9; O2SAT 96–100; BMI 17.0
[2023-08-20] MEDS: Dicyclomine 10 MG Capsule PO ×4 (07:05→21:38)
[2023-08-20 08:07] LABS: Hematocrit 31.6 % (37-47); Hemoglobin 9.9 g/dL (12.0-15.0); Mean Corp Hgb Conc 31.3 g/dL (32-36); Mean Corpuscular Hgb 26.4 pg (27.0-32.0); Mean Corpuscular Volume 84.3 fL (81-99); Mean Platelet Vol. 9.2 fl (6.2-12.0); POSITIVE MORPHOLOGY YES; Platelet Count 214 K/mm3 (150-450); RBC Distribution Width SD 66.9 fl (35.1-43.9); Red Blood Count 3.75 M/mm3 (4.2-5.4); White Blood Count 3.1 K/mm3 (4.4-11.0)
[2023-08-20 08:20] LABS: Scan Indicated on CBC? Y/N YES- FLAGS NOTED
[2023-08-20 08:32] LABS: Anion Gap 3 (5-15); BUN 5 mg/dL (7-18); BUN/Creat Ratio 8.4 RATIO (10-20); Calcium,Total 8.2 mg/dL (8.5-10.1); Chloride 112 mmol/L (98-107); Creatinine, Serum 0.59 mg/dL (0.55-1.02); EST Glomerular Filtration Rate 124 mL/min (>60); Est Glom Filt Rate - Afr Amer 150 mL/min (>60); Glucose 97 mg/dL (74-106); Potassium 3.3 mmol/L (3.5-5.1); Sodium Level 144 mmol/L (136-145)
[2023-08-20] MEDS: Pantoprazole Sodium 20 MG Tablet PO ×2 (08:42→21:38)
[2023-08-20] MEDS: Ascorbic Acid 500 MG Tablet PO ×2 (08:42→21:38)
[2023-08-20] MEDS: Calcium (Elemental) 500 MG Tablet PO ×3 (08:42→15:51)
[2023-08-20] MEDS: Sertraline 50 MG Tablet 25 MG PO (08:42)
[2023-08-20 08:58] LABS: RBC Distribution Width CV 22.4 % (11.6-14.6)
[2023-08-20] MEDS: Ferrous Sulfate 325 MG Tablet PO (10:53)
--- NOTE | 2023-08-20 12:02 | PCM.PN.HOSP ---
Reason for Visit Reason for Visit: Diagnoses Viral cardiomyopathy (08/19/23) Iron deficiency anemia, unspecified (08/19/23) Unspecified abdominal pain (08/19/23) Nausea with vomiting, unspecified (08/19/23) Subjective Subjective No acute events overnight. Patient seen at bedside this morning. Patient was sleeping on my arrival to the room. On awakening, patient denies any acute pain or discomfort. Notes that Dr. Callahan saw her last night and she is understanding of the plan to complete colonoscopy prep this afternoon and have both colonoscopy and EGD done tomorrow. She is looking forward to getting these tests done to try to figure out what else may be going on. Denies any other acute concerns at this time. Objective Data Objective Data Vital Signs: Vital Signs Temp Pulse Resp BP Pulse Ox O2 Del Method 98.5 F 60 16 84/49 L 98 Room Air 08/20/23 11:08 08/20/23 11:08 08/20/23 11:08 08/20/23 11:08 08/20/23 11:08 08/20/23 11:08 Oxygen Delivery Method Room Air Weight: 41 kg Body Mass Index (BMI) 17.0 Intake & Output: Intake and Output for Last 24 Hours 08/18/23 08/19/23 08/21/23 23:59 23:59 00:59 Intake Total 1600 / 2220 1730 / 2430 1250 / 1250 Balance 1600 / 2220 1730 / 2430 1250 / 1250 Lab / Micro Data 08/20/23 07:51 08/20/23 07:51 Labs: Laboratory Results - last 24 hr 08/19/23 07:39: Iron 23 L, TIBC 220 L, Iron Saturation 10.5 L 08/19/23 12:04: Ferritin 290 H, Vitamin D 25-Hydroxy 30.5 08/19/23 16:30: ESR 4, Phosphorus 1.8 L, Magnesium 2.2, C-React Prot Ext Range < 2.90, Folate 9.20, TSH 1.30, Free T4 0.81, Free T3 pg/dL 2.2 08/19/23 20:20: Urine Test Negative 08/20/23 07:51: WBC 3.1 L, RBC 3.75 L, Hgb 9.9 L, Hct 31.6 L, MCV 84.3, MCH 26.4 L, MCHC 31.3 L D, RDW Std Deviation 66.9 H, RDW Coeff of Vandana 22.4 H, Plt Count 214, MPV 9.2, Sodium 144, Potassium 3.3 L, Chloride 112 H, Carbon Dioxide 29.0, Anion Gap 3 L, BUN 5 L, Creatinine 0.59, Estim Creat Clear Calc 88.60, Est GFR (MDRD) Af Amer 150, Est GFR (MDRD) Non-Af 124, BUN/Creatinine Ratio 8.4 L, Glucose 97, Calcium 8.2 L 08/20/23 07:51: Calcium Cancelled Micro: Microbiology 08/18/23 00:13 Mucosa - Nasopharyngeal Respiratory Panel (PCR) - Final Rhinovirus Radiography Diagnostic Testing: Radiology Impression Echocardiogram 08/18/23 16:47 Interpretation Summary Normal LV size. The left ventricular ejection fraction is 40 %. There is mild to moderate global hypokinesis of the left ventricle. Contrast injection was performed. Compared to previous study, the left ventricular systolic function has improved.. Ordering Physician: Wilbert Vogel Referring Physician: Jamari Zhang Performed By: Niesha Keene, DARRYL, RVT Rhythm Strip Rhythm Strip: Sinus Rhythm Rate: 80 Physical Exam Const alert, oriented x3 and no apparent distress Constitutional Narrative: Young female, thin and somewhat chronically ill-appearing, mildly fatigued appearing, otherwise sitting up comfortably in bed, conversing normally, no acute distress. General Appearance: cooperative and comfortable HEENT normocephalic, head/scalp atraumatic, hearing grossly normal bilaterally, nasal mucous membranes and turbinates normal and moist oral mucous membranes Eyes PERRL, EOMs intact bilaterally and conjunctivae normal Neck full ROM and supple Chest inspection of chest normal Resp normal respiratory effort, normal air movement, no use of accessory muscles and clear to auscultation bilaterally Cardio regular rate, regular rhythm, no murmurs and peripheral pulses 2+ throughout GI normal to inspection, nondistended, normoactive bowel sounds, soft to palpation, non-tender and non-distended Back/Spine normal ROM Extremity normal to inspection, full ROM and no pedal edema Skin no rashes or lesions noted Neuro moves all extremities and no focal motor deficits Speech: speech normal Psych mental status grossly normal Assessment & Plan Assessment/Plan (1) Nausea and vomiting: QUALIFIERS: Vomiting type: unspecified Qualified Code(s): R11.2 - Nausea with vomiting, unspecified (2) Cardiomyopathy: QUALIFIERS: Cardiomyopathy type: viral Qualified Code(s): B33.24 - Viral cardiomyopathy PLAN: Plan Patient is a 32-year-old female who presented [facility] ED on 08/18/2023 with worsening fatigue, malaise and intractable nausea and vomiting. 1. Recent diagnosed HFrEF with dilated cardiomyopathy, concern for low output heart failure ? Recent hospitalization in July for influenza A infection. Found to have newly reduced EF of 35% with dilated cardiomyopathy. Cardiology followed during that admission, had difficulty uptitrating medications due to persistent hypotension. ? Saw Dr. Vogel with cardiology in the office on 08/08. Continued on Lopressor 12.5 mg twice daily, spironolactone 12.5 mg daily at that time. ? Presented with worsening fatigue, malaise and nausea/vomiting. Rhinovirus infection as noted below may be contributing but per cardiology, have higher concern for low output heart failure state at this time given clear chest x-ray and normal BNP on admit but JVD on exam and persistent nausea/vomiting with meals. ? Orthostatic vitals with minimal change in blood pressure but did have significant change in heart rate, thus these were positive. ? Repeat TTE on 08/18 showed EF 40%, mild to moderate global hypokinesis of LV, no changes from previous echo 1 month ago. ? Cardiology following. Continue to hold Lopressor and spironolactone given her heart rate dropping recumbency and low blood pressure overall. GI following as noted below. 2. Concern for malabsorption syndrome, suspected malnutrition ? BMI 17 on admit. Thin and quite ill-appearing on admission. Reports minimal p.o. intake over the last few days due to nausea/vomiting. ? Follows with GI outpatient for chronic iron deficiency anemia requiring IV iron transfusions as noted below. ? GI following. Planning for EGD and colonoscopy on 08/20, will complete prep today and be clear liquid diet after midnight. Large biochemical workup sent as well, most of those labs remain pending. 3. Chronic iron deficiency anemia ? Hemoglobin 10.6 on admit, down trended to 9.1 on hospital day 2 after IV fluid resuscitation. Hemoglobin was stable around 8.0 during previous hospitalization about 1 month ago. ? Has history of significant iron deficiency anemia of unclear origin, following with GI as noted above. Has history of requiring IV iron transfusions. ? Hemoglobin has remained stable around 9. Repeat iron studies on 08/18 showed low iron and mildly low TIBC, but ferritin much improved and actually slightly above normal range. ? Monitor CBC daily. GI following as noted above. 4. Mild hypokalemia, improved ? Potassium 3.2 on admit, presumed secondary to recent nausea/vomiting with possibly some degree of malabsorption. Magnesium 2.0 on admit. Replete potassium as needed. 5. Mild hypocalcemia ? Calcium 7.3 on 08/17, albumin 2.6, corrected calcium 8.4. Given concern for both malfunction syndrome and bradycardia with recumbency, given dose of 2 g calcium gluconate IV on 08/18. Vitamin D level normal. Started on p.o. calcium supplement on 08/18, continue this for now. 6. Rhinovirus infection ? Positive for rhinovirus on admission. Symptomatic management. 7. Anxiety and depression ? Continue home sertraline. 8. Debility ? Secondary to medical concerns as noted above. PT/OT/case management following. DVT prophylaxis: Low risk, ambulate CODE STATUS: Full code, verified Expected disposition: TBD Total clinical time spent by myself addressing the patient's medical issues, reviewing all the data, and collaborating with patient's care team: 35 minutes. Charges/Coding Visit Charges Inpatient E&M: 32162 Subs Hosp L2
--- NOTE | 2023-08-20 12:10 | PN.GI_ITS ---
Subjective Subjective Patient is abdominal pain is little better today. She is not eating much. Objective Data Objective Data Vital Signs: Vital Signs Temp Pulse Resp BP Pulse Ox O2 Del Method 98.5 F 60 16 84/49 L 98 Room Air 08/20/23 11:08 08/20/23 11:08 08/20/23 11:08 08/20/23 11:08 08/20/23 11:08 08/20/23 11:08 Oxygen Delivery Method Room Air Weight: 90 lb 6.232 oz Body Mass Index (BMI) 17.0 Intake & Output: Intake and Output for Last 24 Hours 08/18/23 08/19/23 08/21/23 23:59 23:59 00:59 Intake Total 1600 / 2220 1730 / 2430 1250 / 1250 Balance 1600 / 2220 1730 / 2430 1250 / 1250 Lab / Micro Data 08/20/23 07:51 08/20/23 07:51 Labs: Laboratory Results - last 24 hr 08/19/23 07:39: Iron 23 L, TIBC 220 L, Iron Saturation 10.5 L 08/19/23 12:04: Ferritin 290 H, Vitamin D 25-Hydroxy 30.5 08/19/23 16:30: ESR 4, Phosphorus 1.8 L, Magnesium 2.2, C-React Prot Ext Range < 2.90, Folate 9.20, TSH 1.30, Free T4 0.81, Free T3 pg/dL 2.2 08/19/23 20:20: Urine Test Negative 08/20/23 07:51: WBC 3.1 L, RBC 3.75 L, Hgb 9.9 L, Hct 31.6 L, MCV 84.3, MCH 26.4 L, MCHC 31.3 L D, RDW Std Deviation 66.9 H, RDW Coeff of Vandana 22.4 H, Plt Count 214, MPV 9.2, Sodium 144, Potassium 3.3 L, Chloride 112 H, Carbon Dioxide 29.0, Anion Gap 3 L, BUN 5 L, Creatinine 0.59, Estim Creat Clear Calc 88.60, Est GFR (MDRD) Af Amer 150, Est GFR (MDRD) Non-Af 124, BUN/Creatinine Ratio 8.4 L, Glucose 97, Calcium 8.2 L 08/20/23 07:51: Calcium Cancelled Micro: Microbiology 08/18/23 00:13 Mucosa - Nasopharyngeal Respiratory Panel (PCR) - Final Rhinovirus Radiography Diagnostic Testing: Radiology Impression Echocardiogram 08/18/23 16:47 Interpretation Summary Normal LV size. The left ventricular ejection fraction is 40 %. There is mild to moderate global hypokinesis of the left ventricle. Contrast injection was performed. Compared to previous study, the left ventricular systolic function has improved.. Ordering Physician: Wilbert Vogel Referring Physician: Jamari Zhang Performed By: Niesha Keene, DARRYL, RVT Rhythm Strip Rhythm Strip: Sinus Rhythm Rate: 80 Physical Exam Narrative Physical Examination: General: Awake, alert, oriented x 3 and cooperative, seated upright in the ED bed in no apparent distress, fatigued appearing. Skin: Normal color, normal turgor, no icterus, no cyanosis. HEENT: AT/NC, EOMI, PERRLA, dry MM, no carotid bruits or JVD noted. Lungs: CTA bilaterally, moderate effort, mild decrease BL bases, no rales, ronchi or wheezing. Heart: Regular rate and rhythm; no gallop, rub audible. Abdomen: Soft, thin habitus, NTTP, ND, hyperactive BS, no appreciated HSM. Extremities: No cyanosis, clubbing, or edema. Neurological: Patient awake, alert, oriented as noted, cognitive function intact; pupils equally reactive to light and accommodation, cranial nerves II- XII grossly normal, moving all 4 extremities, no focal deficits, strength improved, mildly to moderately global decrease secondary to presentation co mplaints. Psychiatric: Affect appears flat, fatigued, no acute evidence of depressive or anxiety feelings but does have underlying history. Assessment & Plan Assessment/Plan (1) Nausea and vomiting: QUALIFIERS: Vomiting type: unspecified Qualified Code(s): R11.2 - Nausea with vomiting, unspecified (2) Abdominal pain: (3) Anemia: QUALIFIERS: Anemia type: iron deficiency Iron deficiency anemia type: unspecified iron deficiency Qualified Code(s): D50.9 - Iron deficiency anemia, unspecified PLAN: Plan 32-year-old with recent diagnosis of infectious cardiomyopathy from influenza B comes in with progressive fatigue and weakness discovered to have RSV with a history of iron deficiency anemia and weight loss. The differential diagnosis does include hypoadrenalism, celiac sprue, less likely autoimmune enteropathy or protein-losing enteropathy. We will need to perform biochemical workup to see if she has any autoimmune disease that was contributing to iron deficiency anemia and weight loss. That would be autoimmune gastritis or pernicious anemia. Recommend: -Biochemical workup -EGD and colonoscopy with biopsy and possible capsule endoscopy -If patient is here on 08/21/2023 then we will perform both procedures then. In the meantime I will send off blood work. -Clear liquid diet after midnight and prep for EGD and colonoscopy on 08/21/2023. Charges/Coding Visit Charges Inpatient E&M: 19163 Subs Hosp L3
[2023-08-20] MEDS: Bisacodyl 5 MG Tablet 20 MG PO (13:00)
[2023-08-20] MEDS: Polyethylene Glycol 3350 BOWEL PREP PO (15:51)
[2023-08-20] MEDS: Ondansetron 4 MG/2 ML Vial IV (21:38)
[2023-08-20] MEDS: 0.9% Saline Lock 10 ML Syringe IV (21:38)
[2023-08-21] VITALS (14 sets, daily range): BP systolic 73–98; BP diastolic 46–68; PULSE 55–77; RESP 16–18; TEMP 36.1–36.8; O2SAT 99–100; BMI 16.9; BMI 16.2
[2023-08-21 06:23] LABS: Hematocrit 33.4 % (37-47); Mean Corp Hgb Conc 29.9 g/dL (32-36); Mean Corpuscular Volume 83.5 fL (81-99); Mean Platelet Vol. 8.6 fl (6.2-12.0); POSITIVE MORPHOLOGY YES; Platelet Count 253 K/mm3 (150-450); RBC Distribution Width CV 22.1 % (11.6-14.6); RBC Distribution Width SD 65.9 fl (35.1-43.9); White Blood Count 3.6 K/mm3 (4.4-11.0)
[2023-08-21 06:30] LABS: Scan Indicated on CBC? Y/N YES- FLAGS NOTED
[2023-08-21 06:38] LABS: Anion Gap 6 (5-15); BUN 4 mg/dL (7-18); BUN/Creat Ratio 6.9 RATIO (10-20); Calcium,Total 8.2 mg/dL (8.5-10.1); Chloride 110 mmol/L (98-107); Creatinine, Serum 0.58 mg/dL (0.55-1.02); EST Glomerular Filtration Rate 127 mL/min (>60); Est Glom Filt Rate - Afr Amer 153 mL/min (>60); Estimated Creatinine Clearance 89.47 ml/min; Glucose 90 mg/dL (74-106); Potassium 2.8 mmol/L (3.5-5.1); Sodium Level 144 mmol/L (136-145)
[2023-08-21 07:19] LABS: Differential Comment SCANNED
--- NOTE | 2023-08-21 08:07 | NURSING ---
Dr dumont updated on rhythm of bigeminy and low K+ of 2.8 lab updated that they can run MAG and Phos of of am labs already drawn
[2023-08-21 08:42] LABS: Vitamin B12 574 pg/mL (211-911)
--- NOTE | 2023-08-21 09:09 | PCM.PN.HOSP ---
Reason for Visit Reason for Visit: Abdominal cramping, nausea, vomiting Objective Data Objective Data Vital Signs: Vital Signs Temp Pulse Resp BP Pulse Ox O2 Del Method 97.8 F 60 16 95/68 99 Room Air 08/21/23 08:09 08/21/23 08:10 08/21/23 08:09 08/21/23 08:09 08/21/23 08:09 08/21/23 08:09 Oxygen Delivery Method Room Air Weight: 40.7 kg Body Mass Index (BMI) 16.9 Intake & Output: Intake and Output for Last 24 Hours 08/19/23 08/20/23 08/21/23 22:59 23:59 23:59 Intake Total Balance Medical Nutrition Assessment Dietitian: Malnutrition Criteria Met Start: 08/20/23 14:17 Freq: Status: Active Protocol: Document 08/20/23 14:18 RMA (Rec: 08/20/23 14:18 RMA [id number]) Nutrition Malnutrition Evidence of Malnutrition Exists Yes Malnutrition (severe): Acute Illness/Injury,Chronic Evidenced By Suboptimal Energy Intake ( Severe),Physical Changes ( Severe) Intake Problem Inadequate Oral Intake Etiology related to altered GI function pending endoscopy upper/lower tomorrow; N/V/abd pain Signs/Symptoms as evidenced by clear liquids/ NPO and PO meeting less than 50% estimated nutrition needs x 1 week Status Active Problem Clinical Problem Acute Disease or Injury Related Malnutrition Etiology severe protein-calorie malnutrition in the context of acute on chronic disease related to altered GI function and inadequate oral intake Signs/Symptoms as evidenced by BMI 17.1, moderate to severe physical signs of muscle/fat depletion noted in the face, clavicle, orbitals, arms and legs in addition to inadequate oral intake meeting less than 50% estimated nutrition needs x 1 week Status Active Problem Recommendation Dietitian Recommendations/Changes Will add ensure clear 240mL TID w/ meals while on clear liquid diet. Adjust ONS as diet advanced s/ p endoscopy. Recommend advance PO as tolerated to regular/no added salt diet. Diet instruction as indicated pending results of EGD/ Colonoscopy tomorrow. Lab / Micro Data 08/21/23 06:15 08/21/23 11:37 Labs: Laboratory Results - last 24 hr 08/19/23 16:30: Vitamin B12 574 08/21/23 06:15: WBC 3.6 L, RBC 4.00 L, Hgb 10.0 L, Hct 33.4 L, MCV 83.5, MCH 25.0 L, MCHC 29.9 L, RDW Std Deviation 65.9 H, RDW Coeff of Vandana 22.1 H, Plt Count 253, MPV 8.6, Differential Comment SCANNED, Sodium 144, Potassium 2.8 L, Chloride 110 H, Carbon Dioxide 28.0, Anion Gap 6, BUN 4 L, Creatinine 0.58, Estim Creat Clear Calc 89.47, Est GFR (MDRD) Af Amer 153, Est GFR (MDRD) Non-Af 127, BUN/Creatinine Ratio 6.9 L, Glucose 90, Calcium 8.2 L Micro: Microbiology 08/18/23 00:13 Mucosa - Nasopharyngeal Respiratory Panel (PCR) - Final Rhinovirus Rhythm Strip Rhythm Strip: Sinus Rhythm Rate: 80 Assessment & Plan Assessment/Plan (1) Acute hypokalemia: (2) Dehydration: (3) Hypotension: (4) Severe malnutrition: PLAN: Plan Abdominal pain/nausea/vomiting -Etiology is unclear -Workup is pending with EGD and colonoscopy planned for today -Likely exacerbated with acute rhinovirus infection as well as viral mediated dilated cardiomyopathy -Clinically was improved yesterday -After scope will retrial p.o. medications and see how she tolerates it with plans for discharge once tolerating p.o. and having ongoing outpatient follow-up with GI and cardiology Acute rhinovirus infection -Continue supportive care Acute on chronic hypotension -Follow-up echocardiogram showed EF of 40% with mild to moderate global hypokinesis and slight improvement in her LV function from previous -Blood pressures are better with gentle fluid bolus -Having to hold Aldactone and metoprolol however due to blood pressures being on the low side of normal currently Bigeminy -Overall low risk however a little more concerning giving dilated cardiomyopathy -Patient is hypokalemic -Check magnesium and Phos and replace appropriately -Continue to monitor Viral mediated dilated cardiomyopathy -Was diagnosed at the end of July -Had been on Lopressor 12.5 mg twice daily and Aldactone 12.5 mg daily -Currently on hold due to lower side of blood pressures -Echo shows some clinical improvement with an EF improving from 35 to 40% -Difficult to get her on goal-directed therapy due to her ongoing low blood pressures at baseline -Cardiology is following-appreciate input Severe malnutrition -Concern for absorption syndrome -BMI of 17 on admission -EGD and colonoscopy today -Biochemical workup was sent -TSH was normal Chronic iron deficiency anemia -Hemoglobin is relatively stable -Patient does have a history of iron deficiency anemia with unclear origin and has been undergoing IV transfusions for iron as an outpatient -GI workup as noted above Depression -Continue home sertraline Debility -PT/OT consulted and following DVT prophylaxis -Initially felt to be low risk with ambulation encouraged however patient has been hospitalized long enough now that I think we need to start her on some Lovenox 30 daily CODE STATUS Full code
--- NOTE | 2023-08-21 09:15 | NURSING ---
mag and phos result still pending-lab called and they will check on it and call back
--- NOTE | 2023-08-21 09:25 | CASEMGMT ---
RENZO MARTINEZ Assessment: Face to Face with pt for initial transition planning/care coordination assessment. RN MICHELLE introduced self and role at [facility], pt voices understanding and consents to assessment. Pt is A&O x4 and answers all questions appropriately at this time. Pt sitting up in bed in no distress. Care providers, pharmacy, and demographics verified/updated. Admitting Dx: intractable N/V, malaise, abdominal cramping PCP:Vicente Specialists:Heme from [facility], pt could not recall name; caren Vogel Preferred Pharmacy: [facility] Insurance: [facility] Prescription Benefit: yes LNOK: Geremias Ned, sig other; Sung Ned, sig other's mother Living Arrangements: Pt lives with sig other and 5 children in a two story home with 2 steps to enter. Pt reports she is I in ADL's and denies concerns at home. Transportation: Pt drives self and denies concerns with transportation. DME:Denies HHC/SNF: Denies hx of Pt states no concerns with going home at time of dc. Pt states no further concerns/needs. CM to follow. Advised pt to ask CM if any further question/concerns/needs arise, voices understanding. Pt Goal: Home Plan: Home Mary MULLER CM
[2023-08-21 09:27] LABS: Phosphorus 2.6 mg/dL (2.5-4.9)
[2023-08-21] MEDS: Potassium Chloride Oral Tablet 20 MEQ 40 MEQ PO ×2 (10:11→16:12)
[2023-08-21] MEDS: Lactated Ringers 1,000 ML 15 ML IV (11:05)
[2023-08-21 12:04] LABS: Potassium 3.4 mmol/L (3.5-5.1)
--- NOTE | 2023-08-21 12:15 | COLBX_PTH ---
PATIENT: LAILA HARDING LOC: MS3 U#:[id number] AGE/SX: 32/F [place]OM: [facility] [place]08/19/[address]: Dr. Mar Mendes DO : 1990 BED: 1 DIS: 08/21/2023 SPEC #: [id number] RECD: 08/22/23 08:00 STATUS: LATIA RETodd #: [id number] SHAVON: 08/21/23 12:[address]: Andi Callahan DEPT: SURGICAL PATHOLOGY RECD BY: Mady Maldonado ENTERED: 08/22/23 08:01 SP TYPE: COLON BX OTHR DR: Dr. Nitish Freire, MD Dr. Jamari Villatoro Dr., DO Dr. Mar Mendes, MD Dr. Andi Herrera Dr., DO Tissues: A - Duodenum, NOS B - Gastric mucous membrane C - Ileum, NOS Procedures: Surgery Specimen Level IV Comments: @ Ordering doctor for SUIV edited from to @ steven SANTACRUZ at 08/22/23 0952 @ Submitting doctor edited from to @ steven SANTACRUZ at 08/22/23 0952 HEADER OPERATION: Colonoscopy, EGD, Biopsy PRE-OP DIAGNOSIS: Nausea and vomiting TISSUE SUBMITTED: A- Duodenum biopsy, B- Gastric body biopsy, C- Terminal ileum biopsy MICROSCOPIC DIAGNOSIS A. Duodenum, biopsy: Fragments of duodenal mucosa with focal minimal villous blunting and nonspecific chronic inflammation. B. Gastric body, biopsy: Moderate chronic gastritis and minimal acute active gastritis. A few minute lymphoid aggregates, polytypic in nature. See comment. C. Terminal ileum, biopsy: Fragments of small intestinal mucosa with focal nonspecific chronic inflammation. SJ:dania 08/23/2023 COMMENT B. The results of immunohistochemistry for Helicobacter pylori will be reported separately ([id number]). Immunohistochemistry ([id number]) supports the above diagnosis. Correlation with clinical, endoscopic findings and appropriate follow up are necessary. This case has been reviewed in consultation with Dr. Bernal who concurs with the above diagnosis. MICROSCOPIC DESCRIPTION Slides are reviewed. GROSS DESCRIPTION A - Received in fixative is one container labeled with the patient's name and designated duodenum biopsy. The specimen consists of multiple irregular fragments of light wang soft tissue that in aggregate measure 1.0 x 0.3 x 0.1 cm. The specimen is totally submitted in one cassette. B - Received in fixative is one container labeled with the patient's name and designated gastric body biopsy. The specimen consists of multiple irregular fragments of light wang soft tissue that in aggregate measure 0.8 x 0.5 x 0.1 cm. The specimen is totally submitted in one cassette. C - Received in fixative is one container labeled with the patient's name and designated terminal ileum biopsy. The specimen consists of multiple irregular fragments of light wang soft tissue that in aggregate measure 1.0 x 0.4 x 0.1 cm. The specimen is totally submitted in one cassette. / SJ:rg 08/22/2023 TC:3 [facility]: [id number] x3
--- NOTE | 2023-08-21 12:15 | IMM_PTH ---
PATIENT: LAILA HARDING LOC: MS3 U#:[id number] AGE/SX: 32/F ROOM: [facility] [place] RE08/19/[address]: Dr. Mar Mendes DO : 1990 BED: 1 DIS: 08/21/2023 SPEC #: [id number] RECD: 08/22/23 09:43 STATUS: LATIA REQ #: [id number] SHAVON: 08/21/23 12:[address]: Andi Callahan DEPT: IMMUNOHISTOCHEMISTRY RECD BY: Ricky Nichols ENTERED: 08/22/23 09:44 SP TYPE: IMMUNO OTHR DR: Dr. Nitish Freire, MD Dr. Jamari Villatoro Dr., DO Dr. Wilbert Sherman Dr., MD Dr. Rahsaan Friend, DO Tissues: B - Stomach, NOS Procedures: H Pylori (initial) CD20 (add) CD3 (add) CD45 (add) CD5 (add) CD79A (add) Comments: @ Ordering doctor for H.PYLORI edited from to @ steven SANTACRUZ at 08/22/23 0951 @ Submitting doctor edited from to @ steven SANTACRUZ at 08/22/23 0951 PHYSICIAN & [place] [id number] SPECIMEN INFORMATION: Tissue Source: B- Gastric body biopsy Clinical Info: Nausea and vomiting Specimen Number: [id number] CPT code: 11811, 09450 x5 METHODOLOGY: Deparaffinized sections of prefer/formalin-fixed tissue or PAP/DQ stained slides are incubated with monoclonal/polyclonal antibodies/oligonucleotide probes. Localization is made via biotin free immunoperoxidase method. Appropriate controls are performed and reacted as expected. Results on target cell population are indicated in the following table: RESULTS: ANTIBODY / CLONE RESULT Block B H Pylori (polyclonal) negative CD3 (PS1) positive CD5 (SP10) positive CD20 (L26) positive CD45 (RP2/18) positive CD79a (11E3) positive These tests were developed and their performance characteristics determined by [facility]. They may not have been cleared or approved by the U.S. Food and Drug Administration. The FDA has determined that such clearance or approval is not necessary. The above immunohistochemical/dualISH markers are ordered and reviewed by the Pathologist. INTERPRETATION: B. Gastric body, biopsy: - Negative for Helicobacter pylori organisms. - A few lymphoid aggregates, polytypic in nature. SJ/mr 08/24/2023 Case has been reviewed in consultation with Dr. Bernal who concurs with the above diagnosis. IDC:[id number]
--- NOTE | 2023-08-21 13:26 | OP.EGD_ITS ---
Patient Name: Carola Rodriguez Procedure Date: 08/21/2023 12:51 PM Date of : 1990 Age: 32 Procedure: Upper GI endoscopy Indications: Iron deficiency anemia Providers: Andi Callahan DO Medicines: Monitored Anesthesia Care Patient Profile: This is a 32 year old female. Refer to note in patient chart for documentation of history and physical. Patient has symptoms of chronic epigastric abdominal pain. Complications: No immediate complications. Procedure: Pre-Anesthesia Assessment: - Prior to the procedure, a History and Physical was performed, and patient medications and allergies were reviewed. The patient is competent. The risks and benefits of the procedure and the sedation options and risks were discussed with the patient. All questions were answered and informed consent was obtained. Patient identification and proposed procedure were verified by the physician in the pre-procedure area. Mental Status Examination: alert and oriented. Airway Examination: normal oropharyngeal airway and neck mobility. Respiratory Examination: clear to auscultation. CV Examination: normal. Prophylactic Antibiotics: The patient does not require prophylactic antibiotics. Prior Anticoagulants: The patient has taken no anticoagulant or antiplatelet agents. ASA Grade Assessment: II - A patient with mild systemic disease. After reviewing the risks and benefits, the patient was deemed in satisfactory condition to undergo the procedure. The anesthesia plan was to use monitored anesthesia care (MAC). Immediately prior to administration of medications, the patient was re-assessed for adequacy to receive sedatives. The heart rate, respiratory rate, oxygen saturations, blood pressure, adequacy of pulmonary ventilation, and response to care were monitored throughout the procedure. The physical status of the patient was re-assessed after the procedure. After obtaining informed consent, the endoscope was passed under direct vision. Throughout the procedure, the patient's blood pressure, pulse, and oxygen saturations were monitored continuously. The colonoscope was introduced through the mouth, and advanced to the second part of duodenum. The upper GI endoscopy was accomplished without difficulty. The patient tolerated the procedure well. Scope In: 1:01:12 PM Scope Out: 1:04:29 PM Total Procedure Duration Time 0 hours 3 minutes 17 seconds Findings: The examined esophagus was normal. Patchy mildly erythematous mucosa without bleeding was found in the gastric body. Biopsies were taken with a cold forceps for histology. Verification of patient identification for the specimen was done. Estimated blood loss was minimal. Biopsies were taken with a cold forceps for Helicobacter pylori testing. Verification of patient identification for the specimen was done. Estimated blood loss was minimal. No gross lesions were noted in the second portion of the duodenum. Biopsies were taken with a cold forceps for histology. Verification of patient identification for the specimen was done. Estimated blood loss was minimal. Impression: - Normal esophagus. - Erythematous mucosa in the gastric body. Biopsied. - No gross lesions in the second portion of the duodenum. Biopsied. Recommendation: - [facility]. - Resume previous diet. - Continue present medications. - Await pathology results. Procedure Code(s): --- Professional --- 69926, Esophagogastroduodenoscopy, flexible, transoral; with biopsy, single or multiple CPT copyright 2021 [employer]. All rights reserved. The codes documented in this report are preliminary and upon canal equipment mechanic review may be revised to meet current compliance requirements. Andi Callahan DO 08/21/2023 1:25:55 PM This report has been signed electronically. Number of Addenda: 0 Note Initiated On: 08/21/2023 12:51 PM
--- NOTE | 2023-08-21 13:26 | OP.CCLET_ITS ---
08/21/2023 Jamari Zhang [address] [place] [address] Re : Upper GI endoscopy procedure for [facility] Dear Dr. Zhang This procedure was performed on Monday, August 21, 2023. My impressions and recommendations are as follows: Impressions : - Normal esophagus. - Erythematous mucosa in the gastric body. Biopsied. - No gross lesions in the second portion of the duodenum. Biopsied. Recommendations : - [facility]. - Resume previous diet. - Continue present medications. - Await pathology results. My findings are described in the full procedure note, which is enclosed. If I can be of further assistance, please feel free to contact me at . Sincerely, Andi Callahan, 08/21/2023 1:25:55 PM This report has been signed electronically.
--- NOTE | 2023-08-21 13:29 | OP.COLON_ITS ---
Patient Name: Carola Rodriguez Procedure Date: 08/21/2023 1:04 PM Date of : 1990 Age: 32 Procedure: Colonoscopy Indications: Iron deficiency anemia Providers: Andi Callahan DO Medicines: Monitored Anesthesia Care Patient Profile: This is a 32 year old female. Refer to note in patient chart for documentation of history and physical. Patient has symptoms of chronic epigastric abdominal pain. Last Colonoscopy: none. The patient's first colonoscopy is today. Complications: No immediate complications. Procedure: Pre-Anesthesia Assessment: - Prior to the procedure, a History and Physical was performed, and patient medications and allergies were reviewed. The patient is competent. The risks and benefits of the procedure and the sedation options and risks were discussed with the patient. All questions were answered and informed consent was obtained. Patient identification and proposed procedure were verified by the physician in the pre-procedure area. Mental Status Examination: alert and oriented. Airway Examination: normal oropharyngeal airway and neck mobility. Respiratory Examination: clear to auscultation. CV Examination: normal. Prophylactic Antibiotics: The patient does not require prophylactic antibiotics. Prior Anticoagulants: The patient has taken no anticoagulant or antiplatelet agents. ASA Grade Assessment: II - A patient with mild systemic disease. After reviewing the risks and benefits, the patient was deemed in satisfactory condition to undergo the procedure. The anesthesia plan was to use monitored anesthesia care (MAC). Immediately prior to administration of medications, the patient was re-assessed for adequacy to receive sedatives. The heart rate, respiratory rate, oxygen saturations, blood pressure, adequacy of pulmonary ventilation, and response to care were monitored throughout the procedure. The physical status of the patient was re-assessed after the procedure. After I obtained informed consent, the scope was passed under direct vision. Throughout the procedure, the patient's blood pressure, pulse, and oxygen saturations were monitored continuously. The colonoscope was introduced through the anus and advanced to the terminal ileum. The colonoscopy was performed without difficulty. The patient tolerated the procedure well. The quality of the bowel preparation was fair. Scope In: 1:05:51 PM Scope Withdrawal Time 0 hours 5 minutes 42 seconds Scope Out: 1:17:28 PM Total Procedure Duration Time 0 hours 11 minutes 37 seconds Findings: The perianal and digital rectal examinations were normal. The colon (entire examined portion) appeared normal. Stool was found in the rectum, in the recto-sigmoid colon, in the sigmoid colon, in the transverse colon and in the cecum. A localized area of mucosa in the terminal ileum was mildly friable with contact bleeding. Biopsies were taken with a cold forceps for histology. Verification of patient identification for the specimen was done. Estimated blood loss was minimal. Impression: - Preparation of the colon was fair. - The entire examined colon is normal. - Stool in the rectum, in the recto-sigmoid colon, in the sigmoid colon, in the transverse colon and in the cecum. - Friability with contact bleeding in the terminal ileum. Biopsied. Recommendation: - [facility]. - Resume previous diet. - Continue present medications. - Await pathology results. - Repeat colonoscopy. Procedure Code(s): --- Professional --- 13574, Colonoscopy, flexible; with biopsy, single or multiple CPT copyright 2021 [employer]. All rights reserved. The codes documented in this report are preliminary and upon executive assistant to president review may be revised to meet current compliance requirements. Andi Callahan DO 08/21/2023 1:28:31 PM This report has been signed electronically. Number of Addenda: 0 Note Initiated On: 08/21/2023 1:04 PM
--- NOTE | 2023-08-21 13:29 | OP.CCLET_ITS ---
08/21/2023 Jamari Zhang [address] [place] [address] Re : Colonoscopy procedure for [facility] Dear Dr. Zhang This procedure was performed on Monday, August 21, 2023. My impressions and recommendations are as follows: Impressions : - Preparation of the colon was fair. - The entire examined colon is normal. - Stool in the rectum, in the recto-sigmoid colon, in the sigmoid colon, in the transverse colon and in the cecum. - Friability with contact bleeding in the terminal ileum. Biopsied. Recommendations : - [facility]. - Resume previous diet. - Continue present medications. - Await pathology results. - Repeat colonoscopy. My findings are described in the full procedure note, which is enclosed. If I can be of further assistance, please feel free to contact me at . Sincerely, Andi Callahan, 08/21/2023 1:28:31 PM This report has been signed electronically.
[2023-08-21] MEDS: Sertraline 50 MG Tablet 25 MG PO (16:10)
[2023-08-21] MEDS: Pantoprazole Sodium 20 MG Tablet PO (16:10)
[2023-08-21] MEDS: Dicyclomine 10 MG Capsule PO (16:11)
--- NOTE | 2023-08-21 16:26 | NURSING ---
pt has waited 1 1/2 hr for her diet-supervisor poultry hatchery notified and will bring up
--- NOTE | 2023-08-21 16:59 | PCM.DC.SUM ---
Providers Date of Admission: 08/19/23 Date of Discharge: 08/21/23 Primary Care Physician: Dr. Jamari Zhang, Consultations 08/18/23 13:31 Consult: Cardiology Routine Consulting Provider: Wilbert Vogel Reason for Consult: HFrEF with low BP's EMERGENT Consult: No Notified: Yes Date Notified: 08/18/23 Time Notified: 13:37 Method of Notification: Text 08/18/23 17:23 Consult: Gastroenterology Routine Consulting Provider: Andi Callahan Reason for Consult: Concern for malabsorption syndrome EMERGENT Consult: No Notified: Yes Date Notified: 08/18/23 Time Notified: 17:48 Method of Notification: Text Reason For Visit: INTRACTABLE N/V, MALAISE, ABDOMINAL CRAMPING Diagnosis Discharge Diagnosis (1) Acute hypokalemia: Status: Acute Code(s): E87.6 - Hypokalemia (2) Dehydration: Status: Acute Code(s): E86.0 - Dehydration (3) Hypotension: Status: Acute Code(s): I95.9 - Hypotension, unspecified (4) Severe malnutrition: Status: Acute Code(s): E43 - Unspecified severe protein-calorie malnutrition Medications at Discharge Home Medications ascorbic acid (vitamin C) 500 mg tablet (Vitamin C) 500 mg PO BID supplement 07/13/23 ferrous sulfate 142 mg (45 mg iron) tablet,extended release (Slow Release Iron) 142 mg PO BID iron deficiency 07/13/23 guaifenesin 1 tab PO Q6H PRN cold symptoms 07/13/23 sertraline 25 mg tablet 25 mg PO DAILY 07/13/23 metoprolol tartrate 25 mg tablet 12.5 mg (1/2 x 25 mg) PO BID 30 days #30 tabs 08/08/23 spironolactone 25 mg tablet 12.5 mg (1/2 x 25 mg) PO DAILY 30 days #15 tabs 08/08/23 ondansetron 4 mg disintegrating tablet 4 mg PO Q6H PRN nausea and vomiting #12 tabs 08/17/23 pantoprazole 40 mg tablet,delayed release (Protonix) 40 mg PO DAILY #30 tabs 08/21/23 Hospital Course Operations None Procedures 2-D Echocardiogram, Colonoscopy, EGD and - (Chest x-ray, EKG) Summary of Care Provided Minutes Spent on Discharge: 38 Hospital Course: Ms Rodriguez is a 32-year-old white female who presented to the emergency department at [facility] on 08/17/2023 with about 24 hours of worsening fatigue, malaise, then acute onset of nausea and vomiting with intractable generalized abdominal cramping. She had no diarrhea, fever or chills. The abdominal symptoms started about 12 hours prior to presentation. She had been running errands in [employer] and following this became more fatigued and weak. Workup in the emergency department showed a temperature of 98.1, heart rate 104, blood pressure initially was 79/57, respiratory rate was 16 oxygen saturations were 97% on room air. Her CBC was overall unremarkable. Her CMP showed hypokalemia with potassium of 3.2, normal hepatic profile and a lipase of 20. Her serum test was negative. Urinalysis showed ketones and occult blood but was negative for nitrites and there was no evidence of UTI. She was given IV fluids, potassium, Zofran, and Toradol in the emergency department and admitted to the medical floor for ongoing workup. 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 She last saw Dr. Vogel on 08/08/2023 and had been maintained on Aldactone and metoprolol. These medications were held on admission due to her hypotension. Cardiology was consulted and indicated she had been very difficult to treat due to her hemodynamic instability at baseline. Her exam on admission was consistent with heart failure having a S3 gallop and JVD with some crackles in her lung base however chest x-ray was clear and her BNP was only 5. This is better and per discussion with cardiology they would like me to hold her Aldactone metoprolol. Outpatient follow-up to see cardiology has been scheduled for the end of this month and we strongly advise follow-up. There is concern that this could also be nutritionally mediated rather than virally mediated and ongoing outpatient follow-up is required. She does have significant malnutrition and GI was consulted for further evaluation. Echocardiogram done on 08/19/2023 showed echocardiogram done on 08/19/2023 showed an EF of 40% with mild to moderate global hypokinesis of the left ventricle and overall minimal improvement in her LV function. GI was consulted and a biochemical workup was initiated and pending at the time of discharge. EGD and colonoscopy were done today. EGD showed a normal esophagus with an erythematous mucosa in the gastric body which was biopsied and no gross lesions up to the second portion of the duodenum which was also biopsied. Colonoscopy showed fair prep with stool in the rectum, rectosigmoid colon, sigmoid colon, transverse colon and cecum. There was friability noted with contact bleeding in the terminal ileum and this was biopsied. It was recommended she start Protonix 40 mg p.o. twice daily and schedule outpatient follow-up to be seen for biopsy results and ongoing plan of care. Again extensive biochemical workup was pending at the time of discharge and will not be resulted for several days. Case was discussed with Dr. Callahan and he felt comfortable for discharge as long as she could eat without difficulty. The patient was anxious to go home and ate without any difficulty. The plan of care was discussed with the patient and her by Dr. Callahan and previously by Dr. Vogel. She was discharged in stable condition on 08/21/2023. Discharge diagnoses: Abdominal pain-resolved Nausea and vomiting-resolved Acute rhinovirus infection Acute on chronic hypotension-resolved Cardiomyopathy--> nutritionally versus virally mediated Hypokalemia-replaced Severe malnutrition Chronic iron deficiency anemia Depression Physical Exam Narrative Patient states she is feeling well. Was able to eat and drink yesterday but n.p.o. after midnight for colonoscopy and EGD today. Patient states she would like to go home and Dr. Callahan told her she could do so today as long as she was able to take p.o. without any difficulty. Const alert, oriented x3, no apparent distress and no limitations; Negative for average body habitus, healthy appearing or well nourished Constitutional Narrative: Young, thin, white female, sitting up in bed, appears malnourished, comfortable, nontoxic General Appearance: cooperative, comfortable and well kempt HEENT normocephalic, head/scalp atraumatic, hearing grossly normal bilaterally and moist oral mucous membranes HEENT Narrative: Edentulous, Mallampati is 1, no thrush Eyes PERRL, EOMs intact bilaterally and conjunctivae normal Eyes Narrative: No scleral icterus Neck no lymphadenopathy and supple Neck Narrative: Trachea midline, no thyroid enlargement Resp normal respiratory effort, no retractions, no use of accessory muscles and clear to auscultation bilaterally Auscultation: Negative for rales, rhonchi or wheezes Cardio regular rate, regular rhythm, S1 normal heart sound, S2 normal heart sound, no murmurs, no rub, no gallops and no clicks GI normal to inspection, nondistended, normoactive bowel sounds, soft to palpation and non-tender GI Narrative: Scaphoid abdomen Extremity no clubbing, cyanosis or edema Extremity Narrative: Decreased lean muscle mass, pedal pulses are 2+ Skin no rashes or lesions noted, no wounds, skin turgor normal and no jaundice Neuro oriented x3, moves all extremities and no focal motor deficits Speech: speech normal Psych Psych Narrative: Affect is flat and mood seems depressed Medical Records Data Medical Nutrition Assessment Dietitian: Malnutrition Criteria Met Start: 08/20/23 14:17 Freq: Status: Active Protocol: Document 08/20/23 14:18 RMA (Rec: 08/20/23 14:18 RMA [id number]) Nutrition Malnutrition Evidence of Malnutrition Exists Yes Malnutrition (severe): Acute Illness/Injury,Chronic Evidenced By Suboptimal Energy Intake ( Severe),Physical Changes ( Severe) Intake Problem Inadequate Oral Intake Etiology related to altered GI function pending endoscopy upper/lower tomorrow; N/V/abd pain Signs/Symptoms as evidenced by clear liquids/ NPO and PO meeting less than 50% estimated nutrition needs x 1 week Status Active Problem Clinical Problem Acute Disease or Injury Related Malnutrition Etiology severe protein-calorie malnutrition in the context of acute on chronic disease related to altered GI function and inadequate oral intake Signs/Symptoms as evidenced by BMI 17.1, moderate to severe physical signs of muscle/fat depletion noted in the face, clavicle, orbitals, arms and legs in addition to inadequate oral intake meeting less than 50% estimated nutrition needs x 1 week Status Active Problem Recommendation Dietitian Recommendations/Changes Will add ensure clear 240mL TID w/ meals while on clear liquid diet. Adjust ONS as diet advanced s/ p endoscopy. Recommend advance PO as tolerated to regular/no added salt diet. Diet instruction as indicated pending results of EGD/ Colonoscopy tomorrow. Weight / BMI Weight Weight: 39.009 kg Body Mass Index (BMI) 16.2 ABG / Lab / Microbiology Data 08/21/23 06:15 08/21/23 11:37 Laboratory: Laboratory Results - last 24 hr 08/19/23 16:30: Vitamin B12 574 08/21/23 06:15: WBC 3.6 L, RBC 4.00 L, Hgb 10.0 L, Hct 33.4 L, MCV 83.5, MCH 25.0 L, MCHC 29.9 L, RDW Std Deviation 65.9 H, RDW Coeff of Vandana 22.1 H, Plt Count 253, MPV 8.6, Differential Comment SCANNED, Sodium 144, Potassium 2.8 L, Chloride 110 H, Carbon Dioxide 28.0, Anion Gap 6, BUN 4 L, Creatinine 0.58, Estim Creat Clear Calc 89.47, Est GFR (MDRD) Af Amer 153, Est GFR (MDRD) Non-Af 127, BUN/Creatinine Ratio 6.9 L, Glucose 90, Calcium 8.2 L, Phosphorus 2.6, Magnesium 2.0 08/21/23 11:37: Potassium 3.4 L Microbiology: Microbiology 08/18/23 00:13 Mucosa - Nasopharyngeal Respiratory Panel (PCR) - Final Rhinovirus D/C Instructions Discharge Diet: No restrictions Weight Bearing Status: Full weight bearing Meaningful Use Info Meaningful Use Diagnoses (Choose all that apply): None applicable Discharge Plan Admission Admit Date/Time: 08/19/23 16:46 Primary Reason for Your Visit: nausea/vomiting and weakness Attending Provider: Mar Mendes Primary Care Provider: Jamari Zhang Consulting Providers: Amy Villalba; Wilbert Vogel; Andi Callahan; Nitish Freire Instructions Additional Instructions / Restrictions: 1. Hold metoprolol and aldactone 2. Please see cardiology and GI as scheduled below 3. Please call your primary care physician tomorrow and set up an outpatient 4. Please call your PCP and ask for a repeat Basic Metabolic Profile to be performed in 1 week to recheck your potassium level which was replaced while you are hospitalized Discharge Orders/Prescriptions Prescriptions: New ondansetron 4 mg tablet,disintegrating 4 mg PO Q6H PRN (Reason: nausea and vomiting) Qty: 12 0RF pantoprazole [Protonix] 40 mg tablet,delayed release (DR/EC) 40 mg PO DAILY Qty: 30 1RF Continued ascorbic acid (vitamin C) [Vitamin C] 500 mg tablet 500 mg PO BID Slow Release Iron 142 mg (45 mg iron) tablet extended release 142 mg PO BID sertraline 25 mg tablet 25 mg PO DAILY guaifenesin [Mucinex] 1 tab PO Q6H PRN (Reason: cold symptoms) Held metoprolol tartrate 25 mg tablet 12.5 mg PO BID 30 Days Qty: 30 1RF Hold Instructions: Until you follow-up with cardiology and they instruct you to restart it spironolactone 25 mg tablet 12.5 mg PO DAILY 30 Days Qty: 15 1RF Hold Instructions: Until you follow-up with cardiology and they instruct you to restart it Discontinued ondansetron 4 mg tablet,disintegrating 4 mg PO Q8H PRN PRN (Reason: Nausea) Qty: 20 0RF Referrals / Follow Up: Jamari Zhang DO [Primary Care Provider] - Within 1 Week Wilbert Vogel MD [Med Staff - Active Staff] - 09/01/23 11:00 am Andi Callahan DO [Med Staff - Active Staff] - 09/11/23 11:00 am Disposition Disposition (needs filled in before D/C Order can be placed): Home, Self Care Charges/Coding Visit Charges Inpatient E&M: 48242 Disch Hosp >30min
--- NOTE | 2023-08-23 07:15 | PN.GI_ITS ---
Subjective Subjective Patient underwent an upper and lower endoscopy yesterday. Objective Data Objective Data Vital Signs: Vital Signs Temp Pulse Resp BP Pulse Ox O2 Del Method 97.8 F 55 L 18 90/60 100 Room Air 08/21/23 16:45 08/21/23 16:45 08/21/23 16:45 08/21/23 16:45 08/21/23 16:45 08/21/23 16:45 Oxygen Delivery Method Room Air Weight: 86 lb Body Mass Index (BMI) 16.2 Lab / Micro Data 08/21/23 06:15 08/21/23 11:37 Micro: Microbiology 08/18/23 00:13 Mucosa - Nasopharyngeal Respiratory Panel (PCR) - Final Rhinovirus Rhythm Strip Rhythm Strip: Sinus Rhythm Rate: 80 Physical Exam Narrative Patient states she is feeling well. Was able to eat and drink yesterday but n.p.o. after midnight for colonoscopy and EGD today. Patient states she would like to go home and Dr. Callahan told her she could do so today as long as she was able to take p.o. without any difficulty. Const alert, oriented x3, no apparent distress and no limitations; Negative for average body habitus, healthy appearing or well nourished Constitutional Narrative: Young, thin, white female, sitting up in bed, appears malnourished, comfortable, nontoxic General Appearance: cooperative, comfortable and well kempt HEENT normocephalic, head/scalp atraumatic, hearing grossly normal bilaterally and moist oral mucous membranes HEENT Narrative: Edentulous, Mallampati is 1, no thrush Eyes PERRL, EOMs intact bilaterally and conjunctivae normal Eyes Narrative: No scleral icterus Neck no lymphadenopathy and supple Neck Narrative: Trachea midline, no thyroid enlargement Resp normal respiratory effort, no retractions, no use of accessory muscles and clear to auscultation bilaterally Auscultation: Negative for rales, rhonchi or wheezes Cardio regular rate, regular rhythm, S1 normal heart sound, S2 normal heart sound, no murmurs, no rub, no gallops and no clicks GI normal to inspection, nondistended, normoactive bowel sounds, soft to palpation and non-tender GI Narrative: Scaphoid abdomen Extremity no clubbing, cyanosis or edema Extremity Narrative: Decreased lean muscle mass, pedal pulses are 2+ Skin no rashes or lesions noted, no wounds, skin turgor normal and no jaundice Neuro oriented x3, moves all extremities and no focal motor deficits Speech: speech normal Psych Psych Narrative: Affect is flat and mood seems depressed Assessment & Plan Assessment/Plan (1) Nausea and vomiting: QUALIFIERS: Vomiting type: unspecified Qualified Code(s): R11.2 - Nausea with vomiting, unspecified (2) Cardiomyopathy: QUALIFIERS: Cardiomyopathy type: viral Qualified Code(s): B33.24 - Viral cardiomyopathy PLAN: Plan Patient is a 32-year-old female who presented [facility] ED on 08/18/2023 with worsening fatigue, malaise and intractable nausea and vomiting. 1. Recent diagnosed HFrEF with dilated cardiomyopathy, concern for low output heart failure ? Recent hospitalization in July for influenza A infection. Found to have newly reduced EF of 35% with dilated cardiomyopathy. Cardiology followed during that admission, had difficulty uptitrating medications due to persistent hypotension. ? Saw Dr. Vogel with cardiology in the office on 08/08. Continued on Lopressor 12.5 mg twice daily, spironolactone 12.5 mg daily at that time. ? Presented with worsening fatigue, malaise and nausea/vomiting. Rhinovirus infection as noted below may be contributing but per cardiology, have higher concern for low output heart failure state at this time given clear chest x-ray and normal BNP on admit but JVD on exam and persistent nausea/vomiting with meals. ? Orthostatic vitals with minimal change in blood pressure but did have significant change in heart rate, thus these were positive. ? Repeat TTE on 08/18 showed EF 40%, mild to moderate global hypokinesis of LV, no changes from previous echo 1 month ago. ? Cardiology following. Continue to hold Lopressor and spironolactone given her heart rate dropping recumbency and low blood pressure overall. GI following as noted below. 2. Concern for malabsorption syndrome, suspected malnutrition ? BMI 17 on admit. Thin and quite ill-appearing on admission. Reports minimal p.o. intake over the last few days due to nausea/vomiting. ? Follows with GI outpatient for chronic iron deficiency anemia requiring IV iron transfusions as noted below. 3. Chronic iron deficiency anemia ? Hemoglobin 10.6 on admit, down trended to 9.1 on hospital day 2 after IV fluid resuscitation. Hemoglobin was stable around 8.0 during previous hospitalization about 1 month ago. ? Has history of significant iron deficiency anemia of unclear origin,Has history of requiring IV iron transfusions. ? Hemoglobin has remained stable around 9. Repeat iron studies on 08/18 showed low iron and mildly low TIBC, but ferritin much improved and actually slightly above normal range. ? Monitor CBC daily. . 4. Mild hypokalemia, improved ? Potassium 3.2 on admit, presumed secondary to recent nausea/vomiting with possibly some degree of malabsorption. Magnesium 2.0 on admit. Replete potassium as needed. 5. Mild hypocalcemia ? Calcium 7.3 on 08/17, albumin 2.6, corrected calcium 8.4. Given concern for both malfunction syndrome and bradycardia with recumbency, given dose of 2 g calcium gluconate IV on 08/18. Vitamin D level normal. Started on p.o. calcium supplement on 08/18, continue this for now. 6. Rhinovirus infection ? Positive for rhinovirus on admission. Symptomatic management. 7. Anxiety and depression ? Continue home sertraline. 8. Debility ? Secondary to medical concerns as noted above. PT/OT/case management following. DVT prophylaxis: Low risk, ambulate CODE STATUS: Full code, verified Expected disposition: TBD Total clinical time spent by myself addressing the patient's medical issues, reviewing all the data, and collaborating with patient's care team: 35 minutes. Charges/Coding Visit Charges Inpatient E&M: [id number] [facility] L3
[2023-08-25 17:07] LABS: Anti-Centromere B Ab <0.2 AI (0.0-0.9); Anti-Chromatin 0.2 AI (0.0-0.9); Anti-Jo <0.2 AI (0.0-0.9); Anti-Scleroderma-70 AB <0.2 AI (0.0-0.9); Anti-dsDNA Ab 3 IU/mL (0-9); Beef <0.10 kU/L (Class 0); Chocolate <0.10 kU/L (Class 0); Codfish <0.10 kU/L (Class 0); Corn <0.10 kU/L (Class 0); Egg, Whole <0.10 kU/L (Class 0); Milk (Cow) <0.10 kU/L (Class 0); Mussels <0.10 kU/L (Class 0); Peanut <0.10 kU/L (Class 0); Pork <0.10 kU/L (Class 0); RNP Ab <0.2 AI (0.0-0.9); SJOGREN'S Anti-SS-A test < 0.2 AI (0.0-0.9); SJOGREN'S Anti-SS-B test < 0.2 AI (0.0-0.9); Salmon <0.10 kU/L (Class 0); Shrimp <0.10 kU/L (Class 0); Smith Ab <0.2 AI (0.0-0.9); Soybean <0.10 kU/L (Class 0); Tuna <0.10 kU/L (Class 0); Wheat <0.10 kU/L (Class 0)
[2023-08-25 22:06] LABS: ACCA 17 units (0-90); AMCA 25 units (0-100); Albumin 3.4 g/dL (2.9-4.4); Alpha-1-Globulins 0.2 g/dL (0.0-0.4); Alpha-2-Globulins 0.6 g/dL (0.4-1.0); Anti-Parietal Cell AB, QN 144.1 Units (0.0-20.0); Chromogranin A 285.5 ng/mL (0.0-101.8); Cytoplasmic Ab (C-ANCA) <1:20 titer (Neg:<1:20); Deamidated Gliadin IgA 5 units (0-19); Deamidated Gliadin IgG 4 units (0-19); Endomysial Antibody IgA Negative (Negative); Gamma Globulin 0.9 g/dL (0.4-1.8); Gastrin, Serum 574 pg/mL (0-115); IgG, Quant 966 mg/dL (586-1602); Immunoglobulin A 146 mg/dL (87-352); Immunoglobulin E 6 IU/mL (6-495); Immunoglobulin G, Subclass 1 554 mg/dL (248-810); Immunoglobulin G, Subclass 2 261 mg/dL (130-555); Immunoglobulin G, Subclass 3 40 mg/dL (15-102); Immunoglobulin G, Subclass 4 29 mg/dL (2-96); Immunoglobulin M 128 mg/dL (26-217); Intrinsic Factor Ab 1.1 AU/mL (0.0-1.1); PROEL- TOTAL PROTEIN 5.9 g/dL (6.0-8.5); Perinuclear Ab (P-ANCA) <1:20 titer (Neg:<1:20); gASCA 99 units (0-50); t-Transglutaminase IgA <2 U/mL (0-3)
[2023-09-06 14:46] LABS: ALCA 7 units (0-60)
== END 2023-08-21 18:06 | disposition home or self-care (01) | DRG 723 ==
LOC: ED 20:55 → MS3 08-18 07:05
PROVIDERS: Anesthesiology; Hospitalist; Internal Medicine Gastroenterology; Physician Assistant; Admitting Provider Family Medicine; Emergency Provider Emergency Medicine; PCP Student in an Organized Health Care Education/Training Program; Visit Provider Internal Medicine
PROC: 0DJD8ZZ Inspection of Lower Intestinal Tract, Via Natural or Artificial Opening Endoscopic (ICD-10-PCS; CPT 45378; principal; 2023-08-21 12:10)
DX: B33.24 Viral cardiomyopathy (principal); E43 Unspecified severe protein-calorie malnutrition; I42.0 Dilated cardiomyopathy; B97.4 Respiratory syncytial virus as the cause of diseases classified elsewhere; F32.A Depression, unspecified; D50.9 Iron deficiency anemia, unspecified; K29.00 Acute gastritis without bleeding; K29.50 Unspecified chronic gastritis without bleeding; I95.1 Orthostatic hypotension; E87.6 Hypokalemia; F41.9 Anxiety disorder, unspecified; E86.0 Dehydration; Z68.1 Body mass index [BMI] 19.9 or less, adult; G89.29 Other chronic pain; Z79.891 Long term (current) use of opiate analgesic; Z79.899 Other long term (current) drug therapy
CPT/HCPCS: 36415; 71045; 80048; 80053; 80076; 81001; 81025; 82306; 82607; 82652; 82728; 82746; 82784; 82785; 82787; 82941; 83516; 83540; 83550; 83690; 83735; 83880; 84100; 84132; 84145; 84165; 84439; 84443; 84481; 84484; 84703; 85025; 85027; 85652; 86003; 86005; 86036; 86140; 86225; 86235; 86255; 86256; 86316; 86334; 86340; 86671; 87633; 88305; 88341; 88342; 93005; 93308; 94668; 99285; J7030; J7120; Q9957; A4216; C8924; J0612; J2405

== ENCOUNTER → 2023-10-23 | Outpatient (CLI) | payer MEDICAID, SELFPAY ==
--- NOTE | 2023-10-23 11:25 | MRI_ITS ---
EXAM: MR ABDOMEN AND PELVIS WITHOUT AND WITH INTRAVENOUS CONTRAST CLINICAL INDICATION: K52.9 - Noninfective gastroenteritis and colitis, unspecified TECHNIQUE: Multiplanar and multisequence MR images of the abdomen and pelvis without and with intravenous contrast. Magnetic field strength 1.5 T. CONTRAST: 80 cc of Clariscan IV. Water within the GI tract. COMPARISON: CT scan of the abdomen and pelvis 03/02/2022. FINDINGS: LOWER THORAX: Unremarkable. No pleural effusion. ABDOMEN: LIVER: Unremarkable. Normal morphology. No focal mass. GALLBLADDER AND BILE DUCTS: Unremarkable. No gallstones. No gallbladder distention or wall edema. No intra- or extrahepatic biliary ductal dilation. PANCREAS: Unremarkable. No focal cystic or solid mass. SPLEEN: Unremarkable. Normal size without focal cystic or solid mass. ADRENALS: Unremarkable. No nodules. KIDNEYS AND URETERS: Dilatation of the right renal lower pole collecting system with associated cortical atrophy unchanged since previous exam. PELVIS: APPENDIX: No evidence of acute appendicitis. BLADDER: Unremarkable. OVARIES: Unremarkable as visualized. No mass or complex cyst. UTERUS/CERVIX: Unremarkable. No mass. Endometrial stripe is normal in thickness and appearance. ABDOMEN and PELVIS: INTRAPERITONEAL SPACE: Unremarkable. No ascites or other fluid collection. VASCULATURE: Unremarkable. Abdominal aorta is non-dilated. LYMPH NODES: No enlarged lymph nodes. MRI/Enterography Abd/Pel IMPRESSION: Normal gastrointestinal tract. Electronically Signed: Wilbert Oates MD at 0:28 EDT ,
[2023-10-23 12:28] VITALS: BP 112/74; PULSE 70; RESP 14; O2SAT 100; BMI 16.2
[2023-10-23] MEDS: Glucagon 1 MG/ML Syringe IV (13:17)
[2023-10-23 13:33] VITALS: BP 119/63; PULSE 85; RESP 14; O2SAT 98
== END | disposition home or self-care (01) ==
LOC: MRI 11:21
PROVIDERS: PCP Student in an Organized Health Care Education/Training Program; Referring Provider Internal Medicine Gastroenterology; Visit Provider Internal Medicine Gastroenterology
DX: Z45.2 Encounter for adjustment and management of vascular access device (principal); K52.9 Noninfective gastroenteritis and colitis, unspecified
CPT/HCPCS: 74183; 96374; A9575; A4216; J1610

== ENCOUNTER → 2023-11-07 | Outpatient (CLI) | payer MEDICAID, SELFPAY ==
--- NOTE | 2023-11-07 13:27 | ECHOD_ITS ---
Reason For Study: CARDIOMYOPATHY Procedure This was a 2D Doppler, Color Flow transthoracic echocardiogram. Myocardial strain analysis was performed in this exam to aid in the assessment of cardiac function. Exam performed in department. Left Ventricle Normal left ventricle. The estimated ejection fraction is 53 %. No regional wall motion abnormalities noted. Right Ventricle Normal RV size. Normal systolic function. Atria Normal left atrium. Normal right atrium. Mitral Valve Bileaflet diffuse mitral valve thickening. Equivocal mitral valve prolapse. Trivial mitral valve insufficiency. Tricuspid Valve Normal tricuspid valve. Aortic Valve Trisinus/trileaflet aortic valve. Mild (1+) aortic valve insufficiency. Pulmonic Valve Normal pulmonic valve. Great Vessels Normal aortic root. The pulmonary artery is normal size. Inferior vena cava collapse with respiration. Pericardium/Pleural No pericardial effusion. MMode/2D Measurements & Calculations LVIDd: 5.1 cm IVSd: 0.64 cm LVOT diam: 2.1 cm LVIDs: 3.7 cm LVPWd: 0.53 cm LVOT area: 3.3 cm2 RVDd: 3.1 cm FS: 28.6 % Ao root diam: 2.9 cm LAV(MOD-bp): 28.5 ml LVAd ap4: 24.7 cm2 LAV(MOD-bp) Indexed: 21.5 ml/m2 LVLd ap4: 7.3 cm LAV(MOD-sp2): 36.5 ml EDV(MOD-sp4): 68.6 ml LAV(MOD-sp4): 20.5 ml EDV(sp4-el): 70.8 ml LVAs ap4: 15.5 cm2 LVLs ap4: 6.1 cm ESV(MOD-sp4): 31.6 ml ESV(sp4-el): 33.2 ml EF(MOD-sp4): 53.9 % EF(sp4-el): 53.0 % LVAd ap2: 27.7 cm2 SV(MOD-sp4): 37.0 ml SV(MOD-sp2): 50.5 ml LVLd ap2: 7.4 cm EDV(MOD-sp2): 88.9 ml EDV(sp2-el): 88.5 ml LVAs ap2: 16.9 cm2 LVLs ap2: 6.1 cm ESV(MOD-sp2): 38.5 ml ESV(sp2-el): 39.7 ml EF(MOD-sp2): 56.8 % SV(sp4-el): 37.6 ml LA dimension(2D): 2.6 cm LA A4 area: 10.6 cm2 RA A4 area: 8.5 cm2 TAPSE: 1.8 cm Time Measurements MV dec time: 0.16 sec Doppler Measurements & Calculations MV E max asher: 58.5 cm/sec Lat Peak E' Asher: 10.1 cm/sec Med Peak E' Asher: 10.1 cm/sec MV A max asher: 38.5 cm/sec E/E' lat: 5.8 E/E' med: 5.8 MV E/A: 1.5 Ao V2 max: 103.4 cm/sec LV V1 max: 82.5 cm/sec MV dec slope: 370.9 cm/sec2 Ao max P.3 mmHg LV V1 max P.7 mmHg Ao V2 mean: 77.2 cm/sec LV V1 mean P.6 mmHg Ao mean P.7 mmHg LV V1 mean: 60.1 cm/sec Ao V2 VTI: 23.5 cm LV V1 VTI: 17.2 cm AV (velocity ratio): 0.73 STACY(I,D): 2.4 cm2 STACY(V,D): 2.7 cm2 SV(LVOT): 57.0 ml PA V2 max: 78.1 cm/sec PI end-d asher: 74.4 cm/sec PA max PG (full): 1.1 mmHg ECHO/Echo Complete Interpretation Summary Normal left ventricle. The estimated ejection fraction is 53 %. Bileaflet diffuse mitral valve thickening. Equivocal mitral valve prolapse. The global longitudinal strain is borderline abnormal. The global longitudinal strain = -16.6% (abnormal). Ordering Physician: Wilbert Vogel Referring Physician: Wilbert Vogel MD Performed By: Katia Cortes RDCS and Student
== END | disposition home or self-care (01) ==
PROVIDERS: PCP Student in an Organized Health Care Education/Training Program; Referring Provider Internal Medicine Cardiovascular Disease; Visit Provider Internal Medicine Cardiovascular Disease
DX: I42.9 Cardiomyopathy, unspecified (principal)
CPT/HCPCS: 93306

== ENCOUNTER → 2024-02-22 | Outpatient (CLI) | payer MEDICAID, SELFPAY ==
[2024-02-22 10:53] LABS: Absolute Lymphocyte Count 1.44 X10^3/uL (0.83-4.51); Basophil# 0.02 X10^3/uL; Basophil% 0.4 % (0-1); Eosinophil# 0.09 X10^3/uL; Eosinophils% 1.8 % (0-5); Hematocrit 37.9 % (37-47); Lymphocyte # 1.44 X10^3/ul (0.83-4.51); Lymphocyte % 29.3 % (19-41); Mean Corp Hgb Conc 31.7 g/dL (32-36); Mean Corpuscular Hgb 28.2 pg (27.0-32.0); Mean Corpuscular Volume 89.2 fL (81-99); Mean Platelet Vol. 9.9 fl (6.2-12.0); Monocyte# 0.37 X10^3/uL; Monocyte% 7.5 % (0-10); NRBC Flagged by Analyzer 0 % (0-5); Neutrophil # 2.98 X10^3/uL (2.7-7.7); Neutrophil % 60.8 % (47-70); Platelet Count 226 K/mm3 (150-450); RBC Distribution Width CV 11.5 % (11.6-14.6); RET-HE 32.2 pg (30-35); Red Blood Count 4.25 M/mm3 (4.2-5.4); Reticulocyte Count 0.66 % (0.5-1.5); White Blood Count 4.9 K/mm3 (4.4-11.0)
[2024-02-22 11:19] LABS: Ferritin 4 ng/mL (8-252); Iron 32 ug/dL (50-170); Iron Binding Capacity,Total 448 ug/dL (250-450)
[2024-02-27 19:07] LABS: QNTFERON TB Mitogen Value > 10.00 IU/mL (.); QNTFERON TB Nil Value 0.13 IU/mL (.); QNTFERON TB1+ Ag Value 0.08 IU/mL (.); QNTFERON TB2+ Ag Value 0.24 IU/mL (.); QNTIFERON TB Positive Criteria Negative (Negative)
== END | disposition home or self-care (01) ==
LOC: LAB 09:46
PROVIDERS: PCP Student in an Organized Health Care Education/Training Program
DX: K29.40 Chronic atrophic gastritis without bleeding (principal); D51.0 Vitamin B12 deficiency anemia due to intrinsic factor deficiency
CPT/HCPCS: 36415; 82728; 82746; 83516; 83540; 83550; 85025; 85045; 86340; 86480

== ENCOUNTER 2024-04-01 21:06 | Emergency (ER) | payer MEDICAID, SELFPAY ==
[2024-04-01 21:09] VITALS: BP 109/67; PULSE 99; RESP 18; TEMP 37.6; O2SAT 100; BMI 16.4
[2024-04-01] MEDS: DiphenhydrAMINE 50 MG/ML Syringe IV (23:55)
[2024-04-01] MEDS: Metoclopramide 10 MG/2 ML Vial IV (23:56)
[2024-04-01] MEDS: Ketorolac 30 MG/ML Syringe IV (23:58)
[2024-04-01] MEDS: dexAMETHasone 10 MG/ML Vial IV (23:59)
--- NOTE | 2024-04-02 | RAD_ITS ---
INDICATION: cough EXAMINATION/TECHNIQUE: X-RAY - XR Chest 2 Views COMPARISON: August 17, 2023. FINDINGS: LINES/DEVICES: None. LUNGS: No consolidation, edema or effusion. No pneumothorax. MEDIASTINUM AND CARDIOVASCULAR STRUCTURES: Cardiac silhouette not enlarged. BONES AND SOFT TISSUES: Prior right mid clavicle internal fixation.. Dextrocurvature of the thoracic spine. RAD/Chest PA and Lateral IMPRESSION: No radiographic evidence of acute cardiopulmonary disease. Electronically Signed: Krishna Barrios MD at 1:06 EDT ,
[2024-04-02 01:09] VITALS: BP 114/74; PULSE 91; RESP 16; TEMP 36.6; O2SAT 99
--- NOTE | 2024-04-02 01:19 | EDS_ITS ---
HPI History of Present Illness Chief Complaint: Cold Sx Informant: patient and friend Narrative Narrative: Patient is a 33-year-old female with past medical history of anxiety and depression as well as autoimmune gastritis. She states she has had 1 day of generalized fatigue and headache and mild congestion and cough. She states she has multiple school-aged children but states none them appear to be very sick. She states that few years ago she contracted influenza and ended up with myocarditis. She is concerned that her symptoms could be related to influenza once again which could lead to potential hospitalization and therefore she presents for evaluation [facility] Medical History Autoimmune gastritis Anxiety and depression Chronic anemia Myocarditis Painful orthopaedic hardware Clavicle fracture History of thyroid disorder Home Medications ?Medication ?Instructions ?Recorded ?Last Taken ?Type ascorbic acid (vitamin C) 500 mg 500 mg PO BID supplement 07/13/23 07/10/23 History tablet (Vitamin C) guaifenesin 1 tab PO Q6H PRN cold symptoms 07/13/23 07/12/23 History sertraline 25 mg tablet 25 mg PO DAILY 07/13/23 07/10/23 History ondansetron 4 mg disintegrating 4 mg PO Q6H PRN nausea and 08/17/23 Unknown Rx tablet vomiting #12 tabs mecobalamin (vitamin B12) 1,000 1,000 mcg PO DAILY 12/22/23 Unknown History mcg chewable tablet prednisone 20 mg tablet 40 mg PO BID 12/22/23 Unknown History pantoprazole 40 mg tablet,delayed 40 mg PO BID #60 tabs 02/21/24 Unknown Rx release albuterol sulfate 90 mcg/actuation 2 puff inhalation Q4H PRN PRN 04/02/24 Unknown Rx aerosol inhaler (Ventolin HFA) Wheezing/SOB #1 device benzonatate 100 mg capsule 200 mg (2 x 100 mg) PO TID PRN 04/02/24 Unknown Rx cough 10 days #60 caps Allergy/AdvReac Type Severity Reaction Status Date / Time amoxicillin (Amoxicillin) Allergy Hives Verified 04/01/24 21:12 cefixime (From Suprax) Allergy Hives Verified 04/01/24 21:12 lactulose Allergy Hives Verified 04/01/24 21:12 oxycodone HCl (From Percocet) AdvReac Abd Verified 04/01/24 21:12 cramps/diarrhea Family History Mother Diabetes Heart disease Hypertension CVA (cerebral vascular accident) HLD (hyperlipidemia) Father Osteoarthritis Surgical History S/P ORIF (open reduction internal fixation) fracture History of tonsillectomy and adenoidectomy Hx of tympanostomy tubes Hx of tubal ligation Social History household members: spouse Smoking Status: Never smoker alcohol intake: never substance use type: does not use caffeine: Yes Type: carbonated beverages ROS ROS ED Constitutional Constitutional ED: Reports chills, fever(s) and subjective Eyes Eyes: Denies change in vision ENT ENT ED: Reports rhinorrhea and sore throat Cardiovascular Cardiovascular: Denies chest pain Respiratory/Chest Respiratory/Chest: Reports cough; Denies dyspnea Gastrointestinal Gastrointestinal: Reports nausea; Denies abdominal pain, diarrhea or vomiting Genitourinary Genitourinary ED: Denies dysuria Musculoskeletal Musculoskeletal: Reports myalgias Integumentary Denies rash Neurologic Neurologic: Reports headache(s) Hematologic/Lymphatic Hematologic/Lymphatic: Denies easy bleeding or easy bruising Allergic/Immunologic Allergic/Immunologic ED: Denies mouth swelling or tongue swelling EXAM Physical Exam Const Vital Signs: 04/01/24 21:09 04/01/24 23:11 Temperature 99.7 F H Temperature Source Oral Pulse Rate 99 Respiratory Rate 18 Respiratory Effort Normal Respiratory Pattern Normal Blood Pressure 109/67 Blood Pressure Mean 81 Pulse Ox 100 Oxygen Delivery Method Room Air Positive well nourished and well developed General Appearance ED: well developed; Negative for pallor HEENT HEENT Narrative: Bilateral TMs are retracted but show no secondary changes to suggest infection Nasal mucosa is hyperemic and boggy There is cobblestoning noted in posterior pharynx consistent with sinus drainage without airway edema or compromise No secondary findings in the posterior pharynx to suggest infection Eyes PERRL and EOMs intact bilaterally General Eye ED: Negative for scleral icterus Neck supple Neck Narrative: No nuchal rigidity or meningeal signs noted Chest Wall palpation of chest normal Resp normal respiratory effort Resp Narrative: Breath sounds are diminished throughout with faint rhonchi in the bilateral lobes but no nasal flaring retractions tachypnea or accessory muscle use Cardio regular rate and regular rhythm Extremity normal to inspection Extremity Narrative: No asymmetric edema no pitting edema negative Homans' sign bilaterally Neuro oriented x3, CN's II-XII intact bilaterally and no sensory deficits noted Neuro Narrative: Cranial nerves II through XII are grossly intact there are no focal neurologic deficit No pronator drift no dysmetria no truncal ataxia NIH stroke scale score of 0 Sensorium / Orientation: alert Motor Exam: strength 5/5 throughout Psych Psych Narrative: Patient has a flat affect Skin no rashes or lesions noted and no wounds General Skin Exam: Negative for jaundice or pallor MDM MDM MDM Narrative Medical decision making narrative: Patient arrived to ER with low-grade fever but otherwise stable vital. She reported constantly symptoms most consistent with viral upper respiratory tract infection this could be related to COVID versus influenza versus RSV. There is also concern that she may have developed pneumonia. She does not have chest discomfort there is no murmur or friction rub and therefore my concern for myocarditis is low and I do not feel there is need for a troponin. She also reports headache which is most consistent with viral syndrome as her neurologic exam is normal there is no need for head CT. Therefore patient had a viral swab obtained which was negative and a chest x-ray which also revealed no acute finding. However after being treated with Toradol Benadryl and Reglan as well as Decadron she had resolution of her headache and her neurologic exam remained normal. She also was not in respiratory distress or requiring supplemental oxygen. Therefore symptoms are most consistent with viral syndrome and there is no need for admission as she does not have findings of septicemia or respiratory distress/hypoxia and she can be discharged symptomatic care. History & Record Review Discussion w/independent historian: Patient Radiography Diagnostic Testing: Clinical Impression(s) from Imaging Studies Chest X-Ray 04/02/24 00:00 IMPRESSION: No radiographic evidence of acute cardiopulmonary disease. Electronically Signed: Krishna Barrios MD at 1:06 EDT , Chest x-ray as interpreted by the emergency medicine physician reveals no acute infiltrate pneumothorax or pleural effusion Discharge Plan Triage Chief Complaint: Cold Sx ED Provider: Yahir العراقي Dx/Rx/DC Orders Clinical Impression: Viral upper respiratory tract infection with cough, Autoimmune gastritis, Anxiety and depression Instructions: ED URI, Viral, No Abx (Adult) Prescriptions: New benzonatate 100 mg capsule 200 mg PO TID PRN (Reason: cough) 10 Days Qty: 60 0RF albuterol sulfate [Ventolin HFA] 90 mcg/actuation HFA aerosol inhaler 2 puff inhalation Q4H PRN PRN (Reason: Wheezing/SOB) Qty: 1 0RF No Action pantoprazole 40 mg tablet,delayed release (DR/EC) 40 mg PO BID Qty: 60 2RF prednisone 20 mg tablet 40 mg PO BID mecobalamin (vitamin B12) 1,000 mcg tablet,chewable 1,000 mcg PO DAILY ascorbic acid (vitamin C) [Vitamin C] 500 mg tablet 500 mg PO BID sertraline 25 mg tablet 25 mg PO DAILY guaifenesin [Mucinex] 1 tab PO Q6H PRN (Reason: cold symptoms) ondansetron 4 mg tablet,disintegrating 4 mg PO Q6H PRN (Reason: nausea and vomiting) Qty: 12 0RF Primary Care Provider: Jamari Zhang Referrals: Jamari Zhang DO [Primary Care Provider] - Print Language: Portuguese Disposition Disposition: Home, Self Care Discharge Date/Time: 04/02/24 01:35
== END 2024-04-02 01:35 | disposition home or self-care (01) ==
PROVIDERS: Emergency Provider Emergency Medicine; PCP Student in an Organized Health Care Education/Training Program; Visit Provider Emergency Medicine
DX: J06.9 Acute upper respiratory infection, unspecified (principal); K29.70 Gastritis, unspecified, without bleeding; F41.9 Anxiety disorder, unspecified; F32.A Depression, unspecified
CPT/HCPCS: 71046; 87631; 96374; 96375; 96376; 99282; A4216

== ENCOUNTER 2024-07-03 15:12 | Emergency (ER) | payer MEDICAID, SELFPAY ==
[2024-07-03 15:13] VITALS: BP 98/64; PULSE 89; RESP 16; TEMP 36.6; O2SAT 98
[2024-07-03 15:15] VITALS: BMI 17.2
[2024-07-03 17:12] VITALS: BP 90/63; PULSE 77; RESP 18; O2SAT 100
--- NOTE | 2024-07-03 17:51 | EKG12_ITS ---
Test Reason : Blood Pressure : */* mmHG Vent. Rate : 68 BPM Atrial Rate : * BPM P-R Int : * ms QRS Dur : 94 ms QT Int : 416 ms P-R-T Axes : * 60 59 degrees QTcB Int : 442 ms Accelerated Junctional rhythm Nonspecific T wave abnormality Abnormal ECG Confirmed by JORDAN LEMON, GINNA ([id number]), graphics editor ANICETO RUDD ([id number]) on 07/09/2024 7:09:28 AM Referred By: ALEX Confirmed By: GINNA ORTEGA MD
[2024-07-03] MEDS: Acetaminophen 500 MG Tablet PO (18:05)
--- NOTE | 2024-07-03 18:10 | EX.ED.DYSGE1 ---
HPI History of Present Illness Chief Complaint: Cold Sx Informant: patient and spouse/S.O. Narrative Narrative: Patient is a 33-year-old female with history of cardiomyopathy (questionable postviral versus due to malnutrition), autoimmune gastritis inflammatory bowel disease is not compliant with her medications presenting with 2 days of chills, headache, cough and generalized malaise. Patient states he started with a cough and a sore throat yesterday. Today she had significant myalgias. Significant other states had a fever of 101.9 that with delta nine 9.8. Patient does not think she took anything that her significant other think she was taking some Tylenol. She notes that she has chest pain with coughing and had an episode of vomiting with coughing today. She has a lot of abdominal pain every time she coughs. No sick contacts at home. She denies any urinary symptoms. Is complaining of all of her body aches and a frontal headache. Came in for further evaluation especially with her history. [facility] Medical History Autoimmune gastritis Anxiety and depression Chronic anemia Myocarditis Painful orthopaedic hardware Clavicle fracture History of thyroid disorder Home Medications ?Medication ?Instructions ?Recorded ?Last Taken ?Type ascorbic acid (vitamin C) 500 mg 500 mg PO BID supplement 07/13/23 07/10/23 History tablet (Vitamin C) guaifenesin 1 tab PO Q6H PRN cold symptoms 07/13/23 07/12/23 History sertraline 25 mg tablet 25 mg PO DAILY 07/13/23 07/10/23 History ondansetron 4 mg disintegrating 4 mg PO Q6H PRN nausea and 08/17/23 Unknown Rx tablet vomiting #12 tabs mecobalamin (vitamin B12) 1,000 1,000 mcg PO DAILY 12/22/23 Unknown History mcg chewable tablet prednisone 20 mg tablet 40 mg PO BID 12/22/23 Unknown History pantoprazole 40 mg tablet,delayed 40 mg PO BID #60 tabs 02/21/24 Unknown Rx release albuterol sulfate 90 mcg/actuation 2 puff inhalation Q4H PRN PRN 04/02/24 Unknown Rx aerosol inhaler (Ventolin HFA) Wheezing/SOB #1 device benzonatate 100 mg capsule 200 mg (2 x 100 mg) PO TID PRN 04/02/24 Unknown Rx cough 10 days #60 caps Allergy/AdvReac Type Severity Reaction Status Date / Time amoxicillin (Amoxicillin) Allergy Hives Verified 04/01/24 21:12 cefixime (From Suprax) Allergy Hives Verified 04/01/24 21:12 lactulose Allergy Hives Verified 04/01/24 21:12 oxycodone HCl (From Percocet) AdvReac Abd Verified 04/01/24 21:12 cramps/diarrhea Family History Mother Diabetes Heart disease Hypertension CVA (cerebral vascular accident) HLD (hyperlipidemia) Father Osteoarthritis Surgical History S/P ORIF (open reduction internal fixation) fracture History of tonsillectomy and adenoidectomy Hx of tympanostomy tubes Hx of tubal ligation Social History household members: spouse Smoking Status: Never smoker alcohol intake: never substance use type: does not use caffeine: Yes Type: carbonated beverages ROS ROS ED Constitutional Constitutional ED: Reports chills, fever(s) and weight loss Eyes Eyes: Denies change in vision ENT ENT ED: Reports sore throat; Denies ear pain Cardiovascular Cardiovascular: Reports chest pain Respiratory/Chest Respiratory/Chest: Reports cough and dyspnea; Denies sputum Gastrointestinal Gastrointestinal: Reports abdominal pain, nausea and vomiting; Denies diarrhea Musculoskeletal Musculoskeletal: Reports myalgias Integumentary Denies rash Neurologic Neurologic: Reports headache(s) and weakness EXAM Physical Exam Const Vital Signs: 07/03/24 15:13 07/03/24 15:15 07/03/24 17:12 Temperature 97.8 F Temperature Source Temporal Pulse Rate 89 77 Respiratory Rate 16 18 Respiratory Effort Normal Non-Labored Blood Pressure 98/64 90/63 Blood Pressure Mean 75 72 Pulse Ox 98 100 Oxygen Delivery Method Room Air Room Air 07/03/24 19:00 Temperature Temperature Source Pulse Rate 76 Respiratory Rate 16 Respiratory Effort Blood Pressure 100/66 Blood Pressure Mean 77 Pulse Ox 97 Oxygen Delivery Method Room Air Positive cachectic General Appearance ED: cachectic and NAD Nutritional Appearance: cachectic HEENT Reports moist mucous membranes HEENT Narrative: Bilateral cerumen impactions. Normal oropharynx. Eyes PERRL and EOMs intact bilaterally General Eye ED: Negative for scleral icterus Neck supple and no JVD Chest Wall inspection of chest normal Resp normal respiratory effort Resp Narrative: Clear breath sounds. No crackles or wheezing appreciated. Intermittent dry cough on exam. Cardio regular rate, regular rhythm and no murmurs Cardio Narrative: 2+ radial pulses present GI normal to inspection, nondistended, normoactive bowel sounds Palpation: soft and tender other (Mild, diffuse); Negative for guarding Extremity normal to inspection General Extremety ED: Negative for edema General Extremity: Negative for edema Neuro oriented x3 Sensorium / Orientation: alert Motor Exam: general weakness Psych mental status grossly normal Skin no rashes or lesions noted and no wounds MDM MDM MDM Narrative Medical decision making narrative: Patient is evaluated for 1 to 2 days of viral symptoms. No reported fever at home today of 101.9 but is afebrile here. She did not take anything for fever prior to arrival. Does have a significant history of pernicious anemia, malnutrition, cardiomyopathy and inflammatory bowel disease. Is had trouble with weight gain and getting her GI symptoms under control and it sounds like she is intermittently compliant with her stomach medicines as well. Protocol COVID, flu, RSV and strep swab obtained which were negative. Given patient's more significant history will obtain lab work clued CBC, CMP, troponin, BNP and lipase. Chest x-ray and EKG also ordered. Patient is given Tylenol. On repeat evaluation she states her cough feels a little bit better but she is still complaining of a headache. We given IV fluid and Reglan. CBC shows leukopenia with a white blood cell count of 2.3 which does appear to be more chronic for her. She also has a worsening anemia with a hemoglobin of 8.9 and is microcytic. CMP largely normal with normal kidney function. High sensitive troponin normal at 18 and she has a normal BNP of 14.4. Lipase is normal. Patient is had prior tubal ligation low concern for with her symptoms. Is not complain of any urinary symptoms so low suspicion for UTI. Discussed at length with patient and spouse the need for outpatient follow-up. I suspect her anemia and malnutrition is probably making her more prone to illness. Discussed compliance with medications and follow-up with her PCP. She states she is also followed up with someone for iron. Discussed that she might require an iron transfusion given her labs today. I also encouraged her to follow back up with GI. I will be discharged home after receiving IV fluids and Reglan and feeling better. Discussed pushing fluids and food with frequent small meals Lab Data Attestation: I reviewed the patient's lab results. Labs: Laboratory Results - last 24 hr 07/03/24 18:00 WBC 2.3 L RBC 3.78 L Hgb 8.9 L Hct 29.3 L MCV 77.5 L MCH 23.5 L MCHC 30.4 L RDW Std Deviation 38.4 RDW Coeff of Vandana 13.5 Plt Count 185 MPV 9.5 Immature Gran % (Auto) 0.000 Neut % (Auto) 55.1 Lymph % (Auto) 23.3 [place] % (Auto) 20.3 H Eos % (Auto) 0.4 Baso % (Auto) 0.9 Absolute Neuts (auto) 1.3 L Absolute Lymphs (auto) 0.53 L Nucleated RBC % 0 Differential Comment SCANNED Diff Path Review May foll Hypochromasia 2+ Sodium 140 Potassium 3.6 Chloride 106 Carbon Dioxide 27.0 Anion Gap 7 BUN 5 L Creatinine 0.68 Estim Creat Clear Calc 76.72 Est GFR (MDRD) Af Amer 127 Est GFR (MDRD) Non-Af 105 BUN/Creatinine Ratio 7.3 L Glucose 100 Calcium 8.9 Total Bilirubin 0.20 Direct Bilirubin 0.08 AST 15 ALT 16 Alkaline Phosphatase 63 Troponin I High Sens 19 B-Natriuretic Peptide 14.4 Total Protein 6.7 Albumin 3.4 Globulin 3.3 Lipase 30 Radiography Diagnostic Testing: Clinical Impression(s) from Imaging Studies Chest X-Ray 07/03/24 18:11 IMPRESSION: No acute cardiopulmonary pathology. Electronically Signed: Sherif Abdullahi MD at 18:40 EST Reading Location ID and State: [facility] / [place] Tel [phone], Service support , Rhythm Strip Rhythm Strip: Sinus Rhythm Rate: 68 Ectopy: None EKG Initial EKG: Attestation: I personally reviewed and interpreted this EKG as follows: Interpretation: Sinus Rhythm Comments: Normal sinus rhythm at a rate of 68 bpm Normal axis Normal intervals Normal ST segments Discharge Plan Triage Chief Complaint: Cold Sx ED Provider: Breonna Drew Dx/Rx/DC Orders Clinical Impression: Microcytic anemia, Acute viral syndrome Instructions: ED Anemia, Type Not Specified (Adult), ED URI, Viral, No Abx (Adult) Prescriptions: No Action pantoprazole 40 mg tablet,delayed release (DR/EC) 40 mg PO BID Qty: 60 2RF prednisone 20 mg tablet 40 mg PO BID mecobalamin (vitamin B12) 1,000 mcg tablet,chewable 1,000 mcg PO DAILY ascorbic acid (vitamin C) [Vitamin C] 500 mg tablet 500 mg PO BID sertraline 25 mg tablet 25 mg PO DAILY guaifenesin [Mucinex] 1 tab PO Q6H PRN (Reason: cold symptoms) ondansetron 4 mg tablet,disintegrating 4 mg PO Q6H PRN (Reason: nausea and vomiting) Qty: 12 0RF benzonatate 100 mg capsule 200 mg PO TID PRN (Reason: cough) 10 Days Qty: 60 0RF albuterol sulfate [Ventolin HFA] 90 mcg/actuation HFA aerosol inhaler 2 puff inhalation Q4H PRN PRN (Reason: Wheezing/SOB) Qty: 1 0RF Primary Care Provider: Jamari Zhang Referrals: Jamari Zhang DO [Primary Care Provider] - FriendAndi DO [Med Staff - Active Staff] - As soon as possible Activity Restrictions/Additional Instructions: Your workup today did show worsening anemia and I suspect is from low iron. Please follow-up with your GI doctor as well as your primary care doctor. Please work on pushing fluids, eating frequent small meals to try to get your weight up and follow-up with your specialist/take your prescribed/recommended medications. If your symptoms worsen or progress please do not hesitate to return the emergency room. Your heart workup today was reassuring and I do not think you have an acute cardiomyopathy or decompensation of any cardiac problems. Print Language: Ecu[place] Disposition Disposition: Home, Self Care
--- NOTE | 2024-07-03 18:11 | RAD_ITS ---
STUDY: X-RAY CHEST REASON FOR EXAM: Female, 33 years old. COUGH, FEVER TECHNIQUE: PA and lateral COMPARISON: April 02, 2024 FINDINGS: The lungs are clear and expanded. There is no demonstrated pleural abnormality. Normal size heart. Normal mediastinum and arpit. Normal visualized pulmonary arteries. Normal visualized aortic arch and descending thoracic aorta. Normal visualized thoracic spine. Normal visualized ribs, left clavicle, and shoulders. Status post ORIF right clavicular fracture There is no demonstrated abnormality of the visualized soft tissue structures of the upper abdomen. RAD/Chest PA and Lateral IMPRESSION: No acute cardiopulmonary pathology. Electronically Signed: Sherif Abdullahi MD at 18:40 EST ,
[2024-07-03 18:13] LABS: Absolute Lymphocyte Count 0.53 X10^3/uL (0.83-4.51); Absolute Neutrophil Count 1.3 X10^3/uL (2.0-7.7); Basophil# 0.02 X10^3/uL; Basophil% 0.9 % (0-1); Eosinophil# 0.01 X10^3/uL; Eosinophils% 0.4 % (0-5); Hematocrit 29.3 % (37-47); Hemoglobin 8.9 g/dL (12.0-15.0); Lymphocyte # 0.53 X10^3/ul (0.83-4.51); Lymphocyte % 23.3 % (19-41); Mean Corp Hgb Conc 30.4 g/dL (32-36); Mean Corpuscular Hgb 23.5 pg (27.0-32.0); Mean Corpuscular Volume 77.5 fL (81-99); Mean Platelet Vol. 9.5 fl (6.2-12.0); Monocyte# 0.46 X10^3/uL; Monocyte% 20.3 % (0-10); NRBC Flagged by Analyzer 0 % (0-5); Neutrophil # 1.25 X10^3/uL (2.7-7.7); Neutrophil % 55.1 % (47-70); POSITIVE DIFFERENTIAL YES; Platelet Count 185 K/mm3 (150-450); RBC Distribution Width CV 13.5 % (11.6-14.6); RBC Distribution Width SD 38.4 fl (35.1-43.9); Red Blood Count 3.78 M/mm3 (4.2-5.4); White Blood Count 2.3 K/mm3 (4.4-11.0)
[2024-07-03 18:22] LABS: Differential Indicated SCAN CRITERIA MET
[2024-07-03 18:33] LABS: AST(SGOT) 15 U/L (15-37); Alanine Aminotransfer ALT/SGPT 16 U/L (13-56); Albumin, Serum 3.4 g/dL (3.2-5.0); Alkaline Phosphatase 63 U/L (45-117); Anion Gap 7 (5-15); BUN 5 mg/dL (7-18); BUN/Creat Ratio 7.3 RATIO (10-20); Bilirubin, Direct 0.08 mg/dL (0.00-0.30); Calcium,Total 8.9 mg/dL (8.5-10.1); Chloride 106 mmol/L (98-107); Creatinine, Serum 0.68 mg/dL (0.55-1.02); EST Glomerular Filtration Rate 105 mL/min (>60); Est Glom Filt Rate - Afr Amer 127 mL/min (>60); Estimated Creatinine Clearance 76.72 ml/min; Globulin 3.3 g/dL (2.2-4.2); Glucose 100 mg/dL (74-106); Lipase 30 U/L (13-75); Potassium 3.6 mmol/L (3.5-5.1); Protein, Total 6.7 g/dL (6.4-8.2); Sodium Level 140 mmol/L (136-145); Troponin-I HS 19 pg/mL (3.0-54.0)
[2024-07-03 18:40] LABS: Differential Comment SCANNED; Hypochromasia 2+
[2024-07-03 18:50] LABS: BNP,B-Type NATRIURETIC PEPTIDE 14.4 pg/mL (0-100)
[2024-07-03 19:00] VITALS: BP 100/66; PULSE 76; RESP 16; O2SAT 97
[2024-07-03] MEDS: 0.9% Normal Saline (1000mL) 1,000 ML 999 ML IV (19:55)
[2024-07-03] MEDS: Metoclopramide 10 MG/2 ML Vial 2.5 MG IV (20:19)
[2024-07-03 20:35] VITALS: BP 90/64; PULSE 95; RESP 16; TEMP 36.9; O2SAT 98
[2024-07-04 14:27] LABS: Pathologist Review Reviewed
== END 2024-07-03 20:51 | disposition home or self-care (01) ==
PROVIDERS: Emergency Provider Emergency Medicine; PCP Student in an Organized Health Care Education/Training Program; Visit Provider Emergency Medicine
DX: D64.9 Anemia, unspecified (principal); B34.9 Viral infection, unspecified
CPT/HCPCS: 71046; 80048; 80076; 83690; 83880; 84484; 85025; 87631; 87651; 93005; 96361; 96374; 96376; 99284; A4216

== ENCOUNTER 2024-12-24 22:41 | Emergency (ER) | payer MEDICAID, SELFPAY ==
[2024-12-24 22:42] VITALS: BP 96/71; PULSE 64; RESP 14; TEMP 36.1; O2SAT 98
--- OUTSIDE RECORDS SUMMARY | 2024-12-24 23:05 | XMS RPT_ITS | CCD ---
Author Organization [facility] Care Team Providers Care Tool Grinding Technician Name Role Phone Jamari Zhang Unavailable Unavailable Ivanauskstefani, Saulius Unavailable Unavailable Ivanauskas, Saulius Unavailable Unavailable Jamari Zhang DO Primary Care Provider Jamari Zhang DO Primary Care Provider Jamari Zhang DO Primary Care Provider JAMARI ZHANG Primary Care Unavailable MARLYN ESTRADA Referring Unavailable Dr. Jamari Zhang Primary Care Provider Dr. Lang Atkinson Emergency Provider [phone] Dr. Kaushal Blackwell Admit Provider Dr. Kaushal Huffman Referring Provider Unavail able Dr. Kaushal Blackwell Other Provider Unavailabl e Dr. Amy Villalba Other Provider Dr. Lobito Kwon Other Provider Dr. Wilbert Vogel Attending Provider Dr. Amy Villalba Attending Provider Dr. Ivory Lopez Attending Provider Dr. Wilbert Vogel Referring Provider Dr. Jamari Zhang Referring Provider Dr. Jamari Zhang Primary Care Provider Dr. Lang Atkinson Emergency Provider Dr. Kaushal Blackwell Admit Provider Dr. Kaushal Huffman Referring Provider Unavail able Dr. Kaushal Blackwell Other Provider Unavailabl e Dr. Amy Villalba Other Provider Dr. Lobito Kwon Other Provider Dr. Wilbert Vogel Attending Provider Dr. Amy Villalba Attending Provider Dr. Ivory Lopez Attending Provider Dr. Wilbert Vogel Referring Provider Dr. Jamari Zhang Referring Provider Dr. Latrell Martines Emergency Provider Dr. Amy Villalba Admit Provider Dr. Nitish Freire Attending Provider Dr. Nitish Freire Other Provider Dr. Wilbert Vogel Other Provider Dr. Elver Beltre Attending Provider Dr. Andi Callahan Other Provider 1([facility])[phone] Andi Callahan Attending Provider 1([facility])[phone] Dr. Mar Mendes Attending Provider Dr. Mar Mendes Other Provider Jamari Zhang DO Primary Care Provider Estrada INK TECHNICIAN.Marlyn RUDD Unavailable Ja INK TECHNICIAN.VETERINARY TOXICOLOGIST, Kat Unavailable Estrada INK TECHNICIAN.Marlyn RUDD Unavailable [facility] INK TECHNICIAN.VETERINARY TOXICOLOGIST, Virginia Tucker Unavailable MARLYN ESTRADA Referring Unavailabl e ZHANG, JAMARI L Primary Care Unavailable ZHANG, JAMARI L Primary Care Unavailable DAVENPORT, YANETH Referring Unavailable ZHANG, JAMARI L Primary Care Unavailable DAVENPORT, YANETH Referring Unavailable ZHANG, JAMARI L Primary Care Unavailable ZHANG, JAMARI L Primary Care Unavailable DAVENPORT, YANETH Referring Unavailable ZHANG, JAMARI L Primary Care Unavailable DAVENPORT, YANETH Referring Unavailable ZHANG, JAMARI L Primary Care Unavailable MARLYN ESTRADA Referring Unavailabl e DAVENPORT, YANETH Referring Unavailable ZHANG, JAMARI L Primary Care Unavailable DAVENPORT, YANETH Attending Unavailable ZHANG, JAMARI Khushi Primary Care Unavailable PINA WILSON Referring Unavailable ZHANG, JAMARI Khushi Primary Care Unavailable PINA WILSON Attending Unavailable ZHANG, JAMARI L Primary Care Unavailable MARLYN ESTRADA Referring UnavailYANETH Rascon Attending Unavailable ZHANG, JAMARI L Primary Care Unavailable SELF Referring Unavailable PINA WILSON Attending Unavailable ZHANG, JAMARI Khushi Primary Care Unavailable ZHANG, JAMARI L Primary Care Unavailable MARLYN ESTRADA Attending Unavailabl e ZHANG, JAMARI L Primary Care Unavailable Zhang, Jamari Primary Care Unavailable Yahir العراقي Attending Unavailable Zhang, Jamari Primary Care Unavailable Breonna Drew Attending Unavailable Helena Hickey Attending Unavailable Zhang, Jamari Referring Unavailable Zhang, Jamari Primary Care Unavailable Zenia Minor Attending Unavail able Zhang, Jamari Referring Unavailable Zhang, Jamari Primary Care Unavailable Massiel Espinal Attending Unavailable Zhang, Jamari Referring Unavailable Zhang, Jamari Primary Care Unavailable Helena Hickey Attending Unavailable Helena Hickey Referring Unavailable Zhang, Jamari Primary Care Unavailable Allergies Allergy Classification Reported Allergen(s) Allergy Type Date of Onset Reaction(s) Facility (1 source) acetaminophen / oxyCODONE; Translations: [Percocet 10/325] Drug Allergy [facility] Repository (1 source) amoxicillin; Translations: [Amoxil] Drug Allergy [facility] Repository (1 source) cefixime; Translations: [Suprax] Drug Allergy [facility] Repository (20 sources) lactulose; Translations: [lactulose] Drug Allergy 2 [facility] Repository (20 sources) Acetaminophen / oxyCODONE; Translations: [OXYCODONE-ACETAM INOPHEN] Drug Allergy 2 Other: See [facility] Work Phone: (20 sources) Amoxicillin; Translations: [AMOXICILLIN] Drug Allergy 2 [facility] Work Phone: (20 sources) Cefixime; Translations: [CEFIXIME] Drug Allergy 2 [facility] Work Phone: (7 sources) oxyCODONE; Translations: [oxycodone HCl] Drug Allergy 2 Abd cramps/diarrhea [facility] (1 source) Amoxicillin Drug Allergy [address] [facility] Repository (1 source) Cefixime Drug Allergy [address] [facility] Repository Medications Current Medications Medication Drug Class(es) Dates Sig (Normalized) Sig (Original) [id number] 200 actuat albuterol 0.09 mg/actuat metered dose inhaler (20 sources) beta2-Adrenergic Agonist Start: 04-02-2024 albuterol HFA (PROVENTIL HFA, VENTOLIN HFA) 90 mcg/actuation inhaler EVERY 4 HOURS NEEDED as needed for Wheezing/SOB 04/02/2024 Active ascorbic acid 500 mg oral tablet (20 sources) Vitamin C Start: 04-12-2023 End: 03-04-2025 take 1 tablet by mouth twice daily ascorbic acid, vitamin C, (VITAMIN C) 500 mg tablet Indications: Iron deficiency anemia, unspecified iron deficiency anemia type Take 1 tablet by mouth two times a day. 60 tablet 5 12/04/2024 03/04/2025 Active Comment on above: Take 1 tablet by richy two times a day. doxycycline hyclate 100 mg oral tablet (7 sources) Tetracycline-clas s Drug Start: 07-21-2023 End: 07-31-2023 take 1 tablet by mouth twice daily doxycycline (VIBRA-TABS) 100 mg tablet Indications: Subacute cough , Hospital discharge follow-up Take 1 tablet by mouth two times a day for 10 days. 20 tablet 0 07/21/2023 07/31/2023 Active Start: 05-06-2023 End: 05-11-2023 take 1 tablet by mouth twice daily doxycycline (VIBRA-TABS) 100 mg tablet Indications: Bacterial sinusitis Take 1 tablet by mouth two times a day for 5 days. 10 tablet 0 05/06/2023 05/11/2023 Active Start: 03-03-2023 End: 03-10-2023 take 1 tablet by mouth twice daily doxycycline (VIBRA-TABS) 100 mg tablet Take 1 tablet by mouth twice daily for 7 days. 14 tablet 0 03/03/2023 03/10/2023 Active Start: 03-28-2022 End: 04-02-2022 take 1 tablet by mouth twice daily doxycycline monohydrate 100 mg tablet Take 1 tablet by mouth twice daily for 5 days. 10 tablet 0 03/28/2022 04/02/2022 Active Comment on above: Take 1 tablet by richy th twice daily for 5 days. Take 1 tablet by richy th twice daily for 7 days. Take 1 tablet by richy th two times a day for 5 days. Take 1 tablet by richy th two times a day for 10 days. ferrous sulfate 325 mg oral tablet (20 sources) Start: 07-26-2023 End: 12-04-2024 take 1 tablet by mouth once daily ferrous sulfate (IRON) 325 mg (65 mg iron) tablet Indications: Iron deficiency anemia, unspecified iron deficiency anemia type , Anemia, unspecified type Take 1 tablet by mouth once daily. 30 tablet 5 12/04/2024 Active Start: 07-13-2023 take 1 tablet by richy th twice daily Ferrous Sulfate (Slow Release Iron) 142 mg (45 mg iron) tablet extended release Active 142 MG PO TWICE A DAY July 13, 2023 1:00am Comment on above: Take 1 tablet by richy th every Monday, Monday, and Monday. ferrous sulfate (SLOW FE) 137 mg (45 mg iron) TbER (3 sources) Start: 3 End: 4 take 1 tablet by mouth twice daily ferrous sulfate (SLOW FE) 137 mg (45 mg iron) TbER Indications: Iron deficiency anemia, unspecified iron deficiency anemia type Take 45 mg by mouth two times a day. 60 tablet 2 04/12/2023 07/11/2023 Active Comment on above: Take 45 mg by mouth two times a day. fluconazole 150 mg oral tablet (1 source) Azole Antifungal Start: 3 End: 3 fluconazole (DIFLUCAN) 150 mg tablet Indications: Vaginal discharge Take 1 tablet by mouth one time only for 1 dose. Repeat in 3 days as needed. 2 tablet 0 05/01/2023 05/01/2023 Active Comment on above: Take 1 tablet by richy th one time only for 1 dose. Repeat in 3 days as needed. fluticasone propionate 0.05 mg/actuat metered dose nasal spray (20 sources) Corticosteroid Start: take 2 spray(s) by mouth once daily fluticasone (FLONASE) 50 mcg/actuation nasal spray Indications: Bacterial sinusitis Use 2 Sprays in each nostril once daily. Rinse mouth after use. 1 Each 05/06/2023 Active Start: 01-14-2021 take 2 spray(s) by m outh once daily fluticasone (FLONASE) 50 mcg/actuation nasal spray Use 2 Sprays in each nostril once daily. Rinse mouth after use. 1 Bottle 0 01/14/2021 Active Comment on above: Use 2 Sprays in each nostril once daily. Rinse mouth after use. Folic Acid (20 sources) take 1 tablet by mouth twice daily FOLIC ACID ORAL Take 1 tablet by mouth two times a day. Active FOLIC ACID ORAL Take by mouth two times a day. Active Food Supplement, Lactose-Free (ENSURE ACTIVE MUSCLE HEALTH) liqd (20 sources) Start: 07-31-2019 take 237 mL by mouth four times daily Food Supplement, Lactose-Free (ENSURE ACTIVE MUSCLE HEALTH) liqd Take 237 mL by mouth four times daily for 7 days. 6636 mL 12 07/31/2019 Active Comment on above: Take 237 mL by mouth four times daily for 7 days. guaiFENesin (3 sources) Start: 07-13-2023 take 1 tablet by mouth every six hours guaifenesin Active 1 TABLET PO EVERY 6 HOURS July 13, 2023 1:00am Start: 07-13-2023 take 1 tablet by richy every six hours guaifenesin Active 1 TABLET PO EVERY 6 HOURS July 13, 2023 12:00am ibuprofen 600 mg oral tablet (20 sources) Nonsteroidal Anti-inflammatory Drug Start: 03-08-2022 take 1 tablet by mouth three times daily as needed for pain ibuprofen (MOTRIN) 600 mg tablet TAKE 1 TABLET BY MOUTH THREE TIMES DAILY NEEDED FOR PAIN OR FEVER 03/08/2022 Active Start: 03-08-2022 End: 07-13-2023 take 600 mg by mouth four times daily Ibuprofen Discontinued 600 MG PO 4 TIMES DAILY March 08, 2022 12:00am July 13, 2023 11:19am Comment on above: TAKE 1 TABLET BY RICHY TH THREE TIMES DAILY NEEDED FOR PAIN OR FEVER mirtazapine 15 mg oral tablet (2 sources) Start: 025 take 1 tablet by mouth once daily at bedtime mirtazapine (REMERON) 15 mg tablet Take 1 tablet by mouth daily at bedtime. 30 tablet 5 12/04/2024 Active nitrofurantoin, macrocrystals 25 mg / nitrofurantoin, monohydrate 75 mg oral capsule (1 source) Nitrofuran Antibacterial Start: End: take 1 capsule by mouth twice daily nitrofurantoin monohydrate and macrocrystal (MACROBID) 100 mg capsule Take 1 capsule by mouth two times a day for 5 days. 10 capsule 0 05/03/2023 05/08/2023 Active Comment on above: Take 1 capsule by mo ut two times a day for 5 days. ondansetron 4 mg disintegrating oral tablet (20 sources) Serotonin-3 Receptor Antagonist Start: End: take 1 tablet by mouth every eight hours as needed for nausea ondansetron orally disintegrating (ZOFRAN ODT) 4 mg disintegrating tablet Indications: Acute gastroenteritis Take 1 tablet by mouth every 8 hours as needed for nausea/vomiting for up to 2 days. 6 tablet 07/03/2024 07/05/2024 Active Start: 08-17-2023 take 4 mg by mouth e very six hours Ondansetron Active 4 MG PO EVERY 6 HOURS August 17, 2023 1:00am Start: 03-02-2022 End: 08-18-2023 take 4 mg by mouth every eight hours as needed Ondansetron Discontinued 4 MG PO EVERY 8 HOURS NEEDED July 13, 2023 1:00am August 18, 2023 12:23pm Start: 03-14-2017 End: 01-04-2018 take 4 mg by mouth every eight hours as needed Ondansetron Discontinued 4 MG PO EVERY 8 HOURS NEEDED March 14, 2017 12:00am January 04, 2018 8:27am pantoprazole 40 mg delayed release oral tablet (1 source) Proton Pump Inhibitor Start: 08-21-2023 take 1 tablet by mouth once daily Pantoprazole (Protonix) 40 mg tablet,delayed release (DR/EC) Active 40 MG PO DAILY August 21, 2023 12:00am predniSONE 20 mg oral tablet (20 sources) Start: 12-22-2023 take 1 tablet by mouth twice daily predniSONE (DELTASONE) 20 mg tablet Take 20 mg by mouth two times a day. 12/22/2023 Active sertraline 50 mg oral tablet (20 sources) Serotonin Reuptake Inhibitor Start: 12-04-2024 End: 02-02-2025 take 0.5 tablet by mouth once daily, then take 1 tablet by mouth once daily sertraline (ZOLOFT) 50 mg tablet Take 0.5 tablets by mouth once daily for 30 days, THEN 1 tablet once daily. 30 tablet 5 12/04/2024 02/02/2025 Active Start: 05-01-2023 End: 12-04-2024 take 1 tablet by mouth once daily sertraline (ZOLOFT) 25 mg tablet Indications: Anxiety with depression Take 1 tablet by mouth once daily. 30 tablet 05/01/2023 12/04/2024 Discontinued Comment on above: Take 1 tablet by richy once daily. vitamin b12 1 mg oral tablet (13 sources) Vitamin B12 take 1 tablet by mouth once daily cyanocobalamin (VITAMIN B-12) 1,000 mcg tab Take 1,000 mcg by mouth once daily. Active Completed/Discontinued Medications Medication Drug Class(es) Dates Sig (Normalized) Sig (Original) azithromycin 250 mg oral tablet (17 sources) Macrolide Antimicrobial Start: 07-08-2024 End: 12-04-2024 azithromycin (ZITHROMAX Z-INGE) 250 mg tablet Indications: Chronic cough 2 tablets by mouth first day then 1 tablet the next 4 days 6 tablet 07/08/2024 12/04/2024 Discontinued benzonatate 100 mg oral capsule (11 sources) Non-narcotic Antitussive Start: 04-02-2024 End: 07-11-2024 benzonatate (TESSALON PERLE) 100 mg capsule THREE TIMES A DAY as needed for cough 04/02/2024 07/11/2024 Discontinued (Discontinued by another Health Care Provider) Start: 07-13-2023 End: 08-17-2023 take 100 mg by mouth three times daily Benzonatate Discontinued 100 MG PO THREE TIMES A DAY July 13, 2023 1:00am August 17, 2023 10:42pm brompheniramine maleate 0.4 mg/ml / dextromethorphan hydrobromide 2 mg/ml / pseudoephedrine hydrochloride 6 mg/ml oral solution (1 source) alpha-Adrenergic Agonist, Uncompetitive F-sezfgj-I-aspartate Receptor Antagonist, Sigma-1 Agonist Start: 03-03-2023 take 10 mL by mouth every six hours as needed Ifdrgzduzganmbv-Ieulqxwll-RN (BROMFED DM) 2-30-10 mg/5 mL syrup Take 10 mL by mouth four times daily as needed. 200 mL 0 03/03/2023 Active Comment on above: Take 10 mL by mouth four times daily as needed. 10 ml iron sucrose 20 mg/ml injection (11 sources) Parenteral Iron Replacement Start: 07-26-2024 End: 07-26-2024 200 mg, INTRAVENOUS, ONCE, 1 dose, On Mon07/26/24 at 1030, Please conduct a 30 minute post dose observation. Start: 07-24-2024 End: 07-24-2024 200 mg, INTRAVENOUS, ONCE, 1 dose, On Mon07/24/24 at 1030, Please conduct a 30 minute post dose observation. Start: 07-22-2024 End: 07-22-2024 200 mg, INTRAVENOUS, ONCE, 1 dose, On Mon07/22/24 at 1000, Please conduct a 30 minute post dose observation. Start: 07-18-2024 End: 07-18-2024 200 mg, INTRAVENOUS, ONCE, 1 dose, On Mon07/18/24 at 1030, Please conduct a 30 minute post dose observation. Start: 07-16-2024 End: 07-16-2024 200 mg, INTRAVENOUS, ONCE, 1 dose, On Mon07/16/24 at 0900, Please conduct a 30 minute post dose observation. Start: 01-02-2018 End: 01-04-2018 take 200 mg intravenously every other day Iron Sucrose (Venofer) 200 MG/10 ML Vial Discontinued 200 MG IV EVERY OTHER DAY January 02, 2018 12:00am January 04, 2018 8:27am levoFLOXacin 750 mg oral tablet (6 sources) Quinolone Antimicrobial Start: 03-02-2022 End: 07-13-2023 take 750 mg by mouth once daily Levofloxacin Discontinued 750 MG PO DAILY 10 14March 02, 2022 12:00am July 13, 2023 11:18am metoprolol tartrate 25 mg oral tablet (4 sources) beta-Adrenergic Rogelio Start: 07-18-2023 End: 08-08-2023 take 12.5 mg by mouth twice daily Metoprolol Tartrate Active 12.5 MG PO TWICE A DAY August 08, 2023 2:30pm On Hold: Until you follow-up with cardiology and they instruct you to restart it naproxen 500 mg oral tablet (4 sources) Nonsteroidal Anti-inflammatory Drug Start: 02-06-2023 End: 07-13-2023 take 500 mg by mouth twice daily Naproxen Discontinued 500 MG PO TWICE A DAY February 06, 2023 12:00am July 13, 2023 11:19am spironolactone 25 mg oral tablet (4 sources) Aldosterone Antagonist Start: 07-18-2023 End: 08-08-2023 take 12.5 mg by mouth once daily Spironolactone Active 12.5 MG PO DAILY August 08, 2023 2:30pm On Hold: Until you follow-up with cardiology and they instruct you to restart it Problems Active Problems Problem Classification Problem Date Documented Date Episodic/Chronic Abdominal pain (13 sources) Generalized abdominal pain; Translations: [Generalized abdominal pain] Episodic Anxiety disorders (5 sources) Mixed anxiety and depressive disorder; Translations: [Other specified anxiety disorders] Onset: 12-04-2024 05-01-2023 Chronic Chronic obstructive pulmonary disease and bronchiectasis (6 sources) Bronchitis; Translations: [Bronchitis, not specified as acute or chronic] 12-07-2019 Episodic Complication of device; implant or graft (4 sources) Pain; Translations: [Pain due to internal orthopedic prosthetic devices, implants and grafts, initial encounter] 03-08-2022 Episodic Deficiency and other anemia (4 sources) Anemia; Translations: [Anemia, unspecified] 07-25-2023 Episodic Deficiency and other anemia (2 sources) Chronic anemia; Translations: [Anemia, unspecified] 08-17-2023 Episodic Deficiency and other anemia (4 sources) Anemia, unspecified; Translations: [Anemia, unspecified] Onset: 12-04-2024 08-08-2023 Episodic Fluid and electrolyte disorders (15 sources) Dehydration; Translations: [Dehydration] 07-07-2021 Episodic Gastritis and duodenitis (7 sources) Atrophic gastritis; Translations: [Chronic atrophic gastritis without bleeding] Onset: 03-13-2024 09-20-2024 Chronic Gastritis and duodenitis (6 sources) Acute gastritis; Translations: [Acute gastritis without bleeding] 10-10-2021 Episodic Headache; including migraine (1 source) Headache; including migraine; Translations: [Headache, unspecified] Onset: 07-26-2024 Menstrual disorders (2 sources) Menstrual period late; Translations: [Irregular menstruation, unspecified] 05-01-2023 Chronic Mood disorders (20 sources) Depressive disorder; Translations: [Depression] Onset: 09-29-2011 Resolved: 05-18-2017 06-22-2021 Chronic Nausea and vomiting (16 sources) Nausea and vomiting; Translations: [Nausea with vomiting, unspecified] 07-07-2021 Episodic Noninfectious gastroenteritis (1 source) Acute gastroenteritis; Translations: [Noninfective gastroenteritis and colitis, unspecified] 07-03-2024 Episodic Nutritional deficiencies (6 sources) Nutritional marasmus; Translations: [Unspecified severe protein-calorie malnutrition] Onset: 07-08-2024 08-21-2023 Chronic Other aftercare (2 sources) Post-discharge follow-up; Translations: [Encounter for follow-up examination after completed treatment for conditions other than malignant neoplasm] 07-21-2023 Episodic Other bone disease and musculoskeletal deformities (5 sources) Clavicle pain; Translations: [Other specified disorders of bone, shoulder] 03-16-2022 Episodic Other circulatory disease (1 source) Low blood pressure; Translations: [Hypotension, unspecified] 08-21-2023 Episodic Other circulatory disease (1 source) Hypotension, unspecified; Translations: [Hypotension, unspecified] 08-21-2023 Episodic Other complications of (5 sources) Anemia during - baby not yet delivered; Translations: [Anemia complicating , second trimester] Onset: 11-06-2019 11-06-2019 Chronic Other complications of (20 sources) Anemia of ; Translations: [Anemia complicating , second trimester] Onset: 11-06-2019 11-06-2019 Chronic Other complications of (6 sources) Abdominal pain in ; Translations: [Other specified related conditions, unspecified trimester] 01-02-2018 Episodic Other connective tissue disease (1 source) Cramp in lower limb; Translations: [Cramp and spasm] 07-21-2023 Episodic Other female genital disorders (1 source) Vaginal discharge; Translations: [Other specified noninflammatory disorders of vagina] 05-01-2023 Episodic Other lower respiratory disease (4 sources) Cough; Translations: [Cough] Episodic Other nutritional; endocrine; and metabolic disorders (20 sources) H/O: thyroid disorder; Translations: [Personal history of other endocrine, nutritional and metabolic disease] Onset: 05-18-2017 07-01-2019 Episodic Other nutritional; endocrine; and metabolic disorders (1 source) H/O: hyperthyroidism; Translations: [Personal history of other endocrine, nutritional and metabolic disease] 12-04-2024 Episodic Other nutritional; endocrine; and metabolic disorders (1 source) Personal history of other endocrine, nutritional and metabolic disease; Translations: [History of hyperthyroidism] Onset: 12-04-2024 Episodic Other nutritional; endocrine; and metabolic disorders (2 sources) Underweight; Translations: [Underweight (BMI < 18.5)] Onset: 11-02-2023 Episodic Other nutritional; endocrine; and metabolic disorders (1 source) Body mass index (BMI) 19.9 or less, adult; Translations: [Underweight (BMI < 18.5)] Onset: 12-04-2024 Episodic Other upper respiratory infections (2 sources) Chronic sinusitis; Translations: [Chronic sinusitis, unspecified] 03-03-2023 Chronic Other upper respiratory infections (3 sources) Acute pansinusitis; Translations: [Acute pansinusitis, unspecified] Episodic Jailyn-; endo-; and myocarditis; cardiomyopathy (except that caused by tuberculosis or sexually transmitted disease) (15 sources) Myocarditis; Translations: [Myocarditis, unspecified] 07-16-2023 Chronic Residual codes; unclassified (1 source) Other hypersomnia; Translations: [Excessive daytime sleepiness] Onset: 05-28-2023 Chronic Residual codes; unclassified (1 source) Sleep disorder, unspecified; Translations: [Sleep disorder] Onset: 05-28-2023 Episodic Residual codes; unclassified (1 source) Family history of epilepsy and other diseases of the nervous system; Translations: [FH: restless leg syndrome] Onset: 05-28-2023 Episodic Superficial injury; contusion (4 sources) Contusion of foot; Translations: [Contusion of left foot, initial encounter] 02-06-2023 Episodic Urinary tract infections (12 sources) Urinary tract infectious disease; Translations: [Urinary tract infection, site not specified] 03-10-2022 Episodic Past or Other Problems Problem Classification Problem Date Documented Da te Episodic/Chronic Contraceptive and procreative management (20 sources) Sterilization requested; Translations: [Encounter for sterilization] Onset: 0 Resolved: 0 03-23-2020 Episodic Deficiency and other anemia (20 sources) Iron deficiency anemia; Translations: [Iron deficiency anemia, unspecified] Onset: 8 Resolved: 0 04-12-2023 Episodic Deficiency and other anemia (1 source) Iron deficiency anemia, unspecified; Translations: [Iron deficiency anemia, unspecified iron deficiency anemia type] Onset: 4 Episodic E Codes: Fall (20 sources) Fall from steps ; Translations: [Fall (on) (from) unspecified stairs and steps, initial encounter] Onset: 8 Resolved: 8 02-06-2023 Episodic Fracture of upper limb (20 sources) Closed fracture of shaft of clavicle; Translations: [Displaced fracture of shaft of right clavicle, initial encounter for closed fracture] Onset: 2 03-14-2022 Episodic Hemorrhage during ; abruptio placenta; placenta previa (20 sources) Hemorrhage in early , unspecified; Translations: [Unspecified hemorrhage in early , antepartum condition or complication] Onset: 2 Resolved: 2 06-07-2021 Episodic Influenza (20 sources) Influenza due to Influenza B virus; Translations: [Influenza due to other identified influenza virus with other respiratory manifestations] Onset: 4 07-16-2023 Episodic Malaise and fatigue (20 sources) Fatigue; Translations: [Other fatigue] Onset: 3 Resolved: 6 05-01-2023 Episodic Miscellaneous mental health disorders (20 sources) depression; Translations: [ depression] Onset: 3 Resolved: 6 02-01-2016 Episodic Nutritional deficiencies (20 sources) Iron deficiency; Translations: [Iron deficiency] Onset: 3 Resolved: 0 08-27-2019 Episodic Other complications of (20 sources) Anemia in mother complicating , childbirth AND/OR puerperium; Translations: [Anemia complicating , third trimester] Onset: 4 Resolved: 0 08-27-2019 Chronic Other complications of (20 sources) High risk ; Translations: [ care for patient with recurrent loss, first trimester] Onset: 3 Resolved: 3 11-12-2012 Episodic Other complications of (20 sources) Fundal height high for dates; Translations: [Uterine size-date discrepancy, unspecified trimester] Onset: 3 Resolved: 3 11-12-2012 Episodic Other complications of (20 sources) Finding of pattern of ; Translations: [Supervision of other high risk pregnancies, unspecified trimester] Onset: 4 Resolved: 6 06-07-2021 Episodic Other complications of (20 sources) Supervision of with other poor reproductive or obstetric history, unspecified trimester; Translations: [ with other poor obstetric history] Onset: 4 Resolved: 0 03-23-2020 Episodic Other complications of (20 sources) Supervision of other high risk pregnancies, unspecified trimester; Translations: [Supervision of other high-risk ] Onset: 4 Resolved: 7 05-18-2017 Episodic Other complications of (20 sources) Urinary tract infection in ; Translations: [Unspecified infection of urinary tract in , unspecified trimester] Onset: 0 Resolved: 0 03-23-2020 Episodic Other complications of (20 sources) Hyperthyroidism in ; Translations: [Endocrine, nutritional and metabolic diseases complicating , second trimester] Onset: 0 Resolved: 0 03-23-2020 Episodic Other complications of (20 sources) Thrombocytopenic disorder; Translations: [Other diseases of the blood and blood-forming organs and certain disorders involving the immune mechanism complicating , unspecified trimester] Onset: 0 Resolved: 0 03-23-2020 Episodic Other connective tissue disease (20 sources) Muscle pain; Translations: [Myalgia, unspecified site] Onset: 3 12-25-2012 Episodic Other connective tissue disease (20 sources) Rotator cuff impingement syndrome; Translations: [Impingement syndrome of right shoulder] Onset: 2 Episodic Other gastrointestinal disorders (20 sources) Malabsorption syndrome; Translations: [Malabsorption due to intolerance, not elsewhere classified] Onset: 8 Resolved: 0 08-27-2019 Chronic Other hematologic conditions (20 sources) History of anemia; Translations: [Personal history of diseases of the blood and blood-forming organs and certain disorders involving the immune mechanism] Onset: 9 10-04-2019 Episodic Other lower respiratory disease (3 sources) Chronic cough; Translations: [Chronic cough] Onset: 5 07-08-2024 Episodic Other nutritional; endocrine; and metabolic disorders (20 sources) Underweight; Translations: [Underweight] Onset: 3 Resolved: 0 Episodic Other nutritional; endocrine; and metabolic disorders (20 sources) Weight loss; Translations: [Abnormal weight loss] Onset: 3 Resolved: 7 05-18-2017 Episodic Other nutritional; endocrine; and metabolic disorders (20 sources) Decrease in appetite; Translations: [Anorexia] Onset: 3 Resolved: 6 02-01-2016 Episodic Other nutritional; endocrine; and metabolic disorders (4 sources) Weight decreased; Translations: [Abnormal weight loss] Onset: 3 Resolved: 7 05-18-2017 Episodic Other and delivery including normal (20 sources) Normal in primigravida; Translations: [Encounter for supervision of normal first , unspecified trimester] Onset: 3 Resolved: 3 11-12-2012 Episodic Other screening for suspected conditions (not mental disorders or infectious disease) (20 sources) Raised TSH level; Translations: [Other specified abnormal findings of blood chemistry] Onset: 2 Resolved: 7 07-21-2023 Episodic Other skin disorders (20 sources) Eruption; Translations: [Rash and other nonspecific skin eruption] Onset: 3 Resolved: 6 02-01-2016 Episodic Residual codes; unclassified (20 sources) History of clinical finding in subject; Translations: [Personal history of other specified conditions] Onset: 2 Resolved: 3 06-07-2021 Episodic Screening and history of mental health and substance abuse codes (20 sources) H/O: depression; Translations: [Personal history of other mental and behavioral disorders] Onset: 7 Resolved: 0 03-23-2020 Episodic Short gestation; low weight; and growth retardation (20 sources) Gprxn-veb-uhore baby; Translations: [ small for gestational age, unspecified weight] Onset: 4 Resolved: 6 06-07-2021 Episodic Sprains and strains (20 sources) Injury of right leg; Translations: [Strain of unspecified muscle and tendon at ankle and foot level, right foot, initial encounter] Onset: 8 Resolved: 8 10-13-2017 Episodic Thyroid disorders (20 sources) Disorder of thyroid gland; Translations: [Disorder of thyroid, unspecified] Onset: 4 Resolved: 7 06-07-2021 Episodic Unclassified (5 sources) Equipment error/failure; Translations: [Hardware failure] 03-16-2022 Results Test Name Value Interpretation Reference Range Facility [facility] 12-04-2024 [facility] Office Visit (FAMPWS) CAROLA HARDING ([id number]) 1990 F Date Time Provider Department 12/04/24 12:40 PM [facility] During your visit today, we recorded the following information about you: Temperature Pulse Respiration Blood pressure 98.3 degrees 77/minute 16/minute 88/60 Weight Last Period 41.4 kg 11/11/24 Pina Wilson PA-C 12/04/2024 1:15 PM Signed Chief Complaint Patient presents with: Anxiety: And depression HPI Carola Harding is a 34 year old female who presents here today for Above Complaints.. Patient of Dr. Eden. Depression and Anxiety: - Severe symptoms, exacerbated by family issues. - Attending counseling sessions weekly. - Not currently seeing a psychiatrist. - History of Zoloft use since age 16; has not taken it in months. last fill was in 2022 for qty of 30. - Never took Zoloft consistently for 6 weeks to assess effectiveness. Weight Management: - Current weight in the 90s; previously in the 80s. - Goal weight is 110 lbs. - Prednisone prescribed by Dr. Callahan for weight gain and autoimmune gastritis. - Last seen by Dr. Callahan in August of last year. - Open to trying Remeron to increase appetite. 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 - Last colonoscopy in August of last year. Hypothyroidism: - Diagnosed during first . - Managed with medication during first ; returned to normal during second . - Has remained stable since. 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 - Hospitalized with influenza B, which affected the heart. - Vitamin C deficiency noted during hospitalization. Last 6 Encounter Wt Readings: Date: Wt: 12/04/2024 41.4 kg (91 lb 4 oz) 09/20/2024 41.1 kg (90 lb 8 oz) 07/16/2024 42.5 kg (93 lb 11.1 oz) 07/11/2024 40.4 kg (89 lb) 07/08/2024 40.8 kg (90 lb) 07/03/2024 41.9 kg (92 lb 6 oz) Past medical history, appointments, medications, allergies reviewed. Previous Medical History PAST MEDICAL HISTORY Diagnosis Date Anemia complicating (HCC) 12/25/2013 Chlamydia 11/2010 Dysthymic disorder Depression (non-psychotic) Hypothyroidism Iron deficiency depression 12/03/2012 Strain of unspecified muscle and tendon at ankle and foot level, right foot, initial encounter 10/13/2017 Previous Surgical History PAST SURGICAL HISTORY Procedure Laterality Date COLONOSCOPY SCREENING 08/21/2023 EGD W/O BRSH SPEC VARICIES INJ 08/21/2023 PAST SURGICAL HISTORY OF 05/20/2014 Right open reduction internal fixation clavicle TONSILLECTOMY [...] on File Prior to Visit Medication Sig cyanocobalamin (VITAMIN B-12) 1,000 mcg tab Take 1,000 mcg by mouth once daily. azithromycin (ZITHROMAX Z-INGE) 250 mg tablet 2 tablets by mouth first day then 1 tablet the next 4 days (Patient not taking: Reported on 09/20/2024) predniSONE (DELTASONE) 20 mg tablet Take 20 mg by mouth two times a day. FOLIC ACID ORAL Take 1 tablet by mouth two times a day. albuterol HFA (PROVENTIL HFA, VENTOLIN HFA) 90 mcg/actuation inhaler EVERY 4 HOURS NEEDED as needed for Wheezing/SOB ferrous sulfate (IRON) 325 mg (65 mg iron) tablet Take 1 tablet by mouth every Monday, Monday, and Monday. (Patient taking differently: Take 325 mg by mouth once daily.) fluticasone (FLONASE) 50 mcg/actuation nasal spray Use 2 Sprays in each nostril once daily. Rinse mouth after use. sertraline (ZOLOFT) 25 mg tablet Take 1 tablet by mouth once daily. ascorbic acid, vitamin C, (VITAMIN C) 500 mg tablet Take 1 tablet by mouth two times a day. ibuprofen (MOTRIN) 600 mg tablet TAKE 1 TABLET BY MOUTH THREE TIMES DAILY NEEDED FOR PAIN OR FEVER Food Supplement, Lactose-Free (ENSURE ACTIVE MUSCLE HEALTH) liqd Take 237 mL by mouth four times daily for 7 days. No current facility-administere d medications on file prior to visit. Social History Social History Tobacco Use Smoking status: Never Smokeless tobacco: Never Vaping Use Vaping status: Never Used Substance Use Topics Alcohol use: Not Currently Drug use: No Review of Symptoms REVIEW OF SYSTEMS SEE HPI EXAM: BP 88/60 (BP Site: Left Arm, BP Position: Sit (more content not included)... Normal [facility] Comprehensive metabolic 2000 panelon 12-04-2024 Albumin [Mass/Vol] 4.4 g/dL Normal 3.9-4.[address] [facility] Comment on above: Order Comment: Speci men Type: BLOOD SPECIMENOrdering Facility: [facility] Address: [address] [place] [address] Performed By: #### 2 4323-8, 3024-7, LIPNF, 3016-3 ####[facility] LABCLIA [id number] [place] [address] [place] ALP [Catalytic activity/Vol] 61 U/L Normal 34-123 [facility] Comment on above: Order Comment: Speci men Type: BLOOD SPECIMENOrdering Facility: [facility] Address: [address] [place] [address] Performed By: #### 2 4323-8, 302-7, LIPNF, 3016-3 ####[facility] LABCLIA [id number] [place] [address] [place] ALT [Catalytic activity/Vol] 13 U/L Normal 7-38 [facility] Comment on above: Order Comment: Speci men Type: BLOOD SPECIMENOrdering Facility: [facility] Address: [address] [place] [address] Performed By: #### 2 4323-8, 3024-7, LIPNF, 3016-3 ####[facility] LABCLIA [id number] [address] [address] [place] Anion gap [Moles/Vol] 11 mmol/L Normal 8-15 [facility] Comment on above: Order Comment: Speci men Type: BLOOD SPECIMENOrdering Facility: [facility] Address: [address] [place] [address] Performed By: #### 2 4323-8, 3024-7, LIPNF, 3016-3 ####[facility] LABCLIA [id number] [address] [address] [place] AST [Catalytic activity/Vol] 21 U/L Normal 13-35 [facility] Comment on above: Order Comment: Speci men Type: BLOOD SPECIMENOrdering Facility: [facility] Address: [address] [place] [address] Performed By: #### 2 4323-8, 3024-7, LIPNF, 3016-3 ####[facility] LABCLIA [id number] [place] [id number] [place] Bilirubin [Mass/Vol] 0.4 mg/dL Normal 0.2-1.3 [facility] Comment on above: Order Comment: Speci men Type: BLOOD SPECIMENOrdering Facility: [facility] Address: [address] [place] [address] Performed By: #### 2 4323-8, 3024-7, LIPNF, 6-3 ####[facility] LABCLIA [id number] [place] [id number] [place] Calcium [Mass/Vol] 9.7 mg/dL Normal 8.5-10.[address] [facility] Comment on above: Order Comment: Speci men Type: BLOOD SPECIMENOrdering Facility: [facility] Address: [address] [place] [address] Performed By: #### 2 4323-8, 3024-7, LIPNF, 6-3 ####[facility] LABCLIA [id number] [place] [id number] [place] Chloride [Moles/Vol] 106 mmol/L Normal 98-107 [facility] Comment on above: Order Comment: Speci men Type: BLOOD SPECIMENOrdering Facility: [facility] Address: [address] [place] [address] Performed By: #### 2 4323-8, 3024-7, LIPNF, 3016-3 ####[facility] LABCLIA [id number] [place] [address] [place] CO2 [Moles/Vol] 24 mmol/L Normal 22-30 [facility] Comment on above: Order Comment: Speci men Type: BLOOD SPECIMENOrdering Facility: [facility] Address: [address] [place] [address] Performed By: #### 2 4323-8, 3024-7, LIPELENA, 6-3 ####[facility] LABIA [id number] [place] [id number] [place] Creatinine [Mass/Vol] 0.69 mg/dL Normal 0.58-0.96 [facility] Comment on above: Order Comment: Speci men Type: BLOOD SPECIMENOrdering Facility: [facility] Address: [address] [place] [address] Performed By: #### 2 4323-8, 3024-7, LIPELENA, 6-3 ####[facility] [id number] [place] [address] [place] Creatinine and Glomerular filtration rate.predicted panel (S/P/Bld) 117 mL/min/1.73m??? Normal >=60 [facility] Comment on above: Order Comment: Speci men Type: BLOOD SPECIMENOrdering Facility: [facility] Address: [address] [place] [address] Result Comment: Nori mated Glomerular Filtration Rate (eGFR) is calculated using the 2020 CKD-EPI creatinine equation. This equation utilizes serum creatinine, sex, and age as parameters. The creatinine assay has traceable calibration to isotope dilution-mass spectrometry. Refer to KDIGO guidelines for clinical interpretation. In patients with unstable renal function, e.g. those with acute kidney injury, the eGFR may not accurately reflect actual GFR. Performed By: #### 2 4323-8, 3024-7, LIPNF, 3016-3 ####[facility] LABIA [id number] [address] [address] [place] Glucose [Mass/Vol] 91 mg/dL Normal 74-[address] [facility] Comment on above: Order Comment: Speci men Type: BLOOD SPECIMENOrdering Facility: [facility] Address: [address] [place] [address] Result Comment: The [place] Diabetes Association (ADA) provides guidance for cutoff values for fasting glucose and random glucose. The ADA defines fasting as no caloric intake for at least 8 hours. Fasting plasma glucose results between 100 to 125 mg/dL indicate increased risk for diabetes (prediabetes). Fasting plasma glucose results greater than or equal to 126 mg/dL meet the criteria for diagnosis of diabetes. In the absence of unequivocal hyperglycemia, results should be confirmed by repeat testing. In a patient with classic symptoms of hyperglycemia or hyperglycemic crisis, random plasma glucose results greater than or equal to 200 mg/dL meet the criteria for diagnosis of diabetes. Reference: Standards of Medical Care in Diabetes 2016, [place] Diabetes Association. Diabetes Care. 2016.39(Suppl 1). Performed By: #### 2 4323-8, 3024-7, LIPNF, 3016-3 ####[facility] LABCLIA [id number] [place] [address] [place] Potassium [Moles/Vol] 3.7 mmol/L Normal 3.7-5.1 [facility] Comment on above: Order Comment: Speci men Type: BLOOD SPECIMENOrdering Facility: [facility] Address: [address] [place] [address] Performed By: #### 2 4323-8, 3024-7, LIPNF, 3016-3 ####[facility] LABCLIA [id number] [place] [address] [place] Protein [Mass/Vol] 7.0 g/dL Normal 6.3-8.[address] [facility] Comment on above: Order Comment: Speci men Type: BLOOD SPECIMENOrdering Facility: [facility] Address: [address] [place] [address] Performed By: #### 2 4323-8, 3024-7, LIPNF, 3016-3 ####[facility] LABCLIA [id number] [address] [address] [place] Sodium [Moles/Vol] 141 mmol/L Normal 136-[address] [facility] Comment on above: Order Comment: Speci men Type: BLOOD SPECIMENOrdering Facility: [facility] Address: [address] [place] [address] Performed By: #### 2 4323-8, 3024-7, LIPNF, 3016-3 ####[facility] LABIA [id number] [address] [address] [place] Urea nitrogen [Mass/Vol] 9 mg/dL Normal 7-21 [facility] Comment on above: Order Comment: Speci men Type: BLOOD SPECIMENOrdering Facility: [facility] Address: [address] [place] [address] Performed By: #### 2 4323-8, 3024-7, LIPNF, 3016-3 ####[facility] [id number] [place] [address] [place] HbA1c (Bld)on 12-04-2024 Average glucose Estimated from glycated hemoglobin (Bld) [Mass/Vol] 94 mg/dL Normal [facility] Comment on above: Order Comment: Speci men Type: BLOOD SPECIMENOrdering Facility: [facility] Address: [address] [place] [address] Result Comment: eAG: (Estimated average glucose) is a calculated value from HgbA1c and is territory sales representative of the average blood glucose level in the last 2-3 month period. Performed By: #### 5 5454-3 ####[facility] [id number] [place] [id number] [place] HbA1c (Bld) [Mass fraction] 4.9 % Normal 4.3-5.6 [facility] Comment on above: Order Comment: Speci men Type: BLOOD SPECIMENOrdering Facility: [facility] Address: [address] [place] [address] Result Comment: [place] Diabetes Association guidelines indicate that patients with HgbA1c in the range 5.7-6.4% are at increased risk for development of diabetes, and intervention by lifestyle modification may be beneficial. HgbA1c greater or equal to 6.5% is considered diagnostic of diabetes. Performed By: #### 5 5454-3 ####[facility] LABCLIA [id number] [place] [id number] [place] LIPID PANEL, NONFASTINGon Cholesterol [Mass/Vol] 134 mg/dL Normal <200 [facility] Comment on above: Order Comment: Specrose men Type: BLOOD SPECIMENOrdering Facility: [facility] Address: [address] [place] [address] Result Comment: <200 mg/dL, Desirable 200-239 mg/dL, Borderline high >239 mg/dL, High Performed By: #### 2 4323-8, 3024-7, LIPNF, 3016-3 ####[facility] LABCLIA [id number] [place] [id number] [place] HDL CHOLESTEROL, NF 40 mg/dL Normal >39 [facility] Comment on above: Order Comment: Ada castañeda Type: BLOOD SPECIMENOrdering Facility: [facility] Address: [address] [place] [address] Result Comment: 40-5 9 mg/dL, Acceptable >59 mg/dL, High: Negative risk factor for coronary heart disease <40 mg/dL, Low: Positive risk factor for coronary heart disease Performed By: #### 2 4323-8, 3024-7, LIPNF, 3016-3 ####[facility] LABCLIA [id number] [place] [id number] [place] LDL CHOLESTEROL CALCULATED, NF 72 mg/dL Normal <100 [facility] Comment on above: Order Comment: Ada castañeda Type: BLOOD SPECIMENOrdering Facility: [facility] Address: [address] [place] [address] Result Comment: <100 mg/dL, Optimal 100-129 mg/dL, Near optimal/above optimal 130-159 mg/dL, Borderline high 160-189 mg/dL, High >189 mg/dL, Very high Secondary prevention optimal LDL Cholesterol levels are recommended to be <70 mg/dL LDL cholesterol is calculated using the Toro-NIH equation. Performed By: #### 2 4323-8, 302-7, LIPELENA, 3015-3 ####[facility] LABCLIA [id number] [place] [id number] [facility] LDL/HDL RATIO, NF 1.80 mg/dL Normal <2.54 [facility] Comment on above: Order Comment: Speci men Type: BLOOD SPECIMENOrdering Facility: [facility] Address: [address] [place] [address] Result Comment: Refe rence: 1. National Cholesterol Education Program ATP III Guideline At-A-Glance Quick Desk Reference: National Heart, Lung, and Blood [place]. National Institutes of Health. 2001: NIH Publication No. 01-3305. 2. An International Atherosclerosis Society position paper: global recommendations for the management of dyslipidemia: executive summary, Atherosclerosis. 2014: 232(2):410-413. Performed By: #### 2 4323-8, 3023-7, LIPELENA, 3015-3 ####[facility] LABCLIA [id number] [address] NON HDL CHOL, NF 94 mg/dL Normal <130 [facility] Comment on above: Order Comment: Ada castañeda Type: BLOOD SPECIMENOrdering Facility: [facility] Address: [address] [place] [address] Result Comment: <130 mg/dL, Optimal 130-159 mg/dL, Near optimal/above optimal 160-189 mg/dL, Borderline high 190-219 mg/dL, High >219 mg/dL, Very high Secondary prevention optimal non HDL Cholesterol levels are recommended to be <100 mg/dL Performed By: #### 2 4323-8, 302-7, LIPNF, 3015-3 ####[facility] LABCLIA [id number] [place] [id number] [place] T CHOL/HDL RATIO NF 3.35 mg/dL Normal <5.10 [facility] Comment on above: Order Comment: Speci men Type: BLOOD SPECIMENOrdering Facility: [facility] Address: [address] [place] [address] Performed By: #### 2 4323-8, 302-7, LIPNF, 3016-3 ####[facility] LABCLIA [id number] [place] [address] [place] TRIGLYCERIDES, NF 122 mg/dL Normal <150 [facility] Comment on above: Order Comment: Speci men Type: BLOOD SPECIMENOrdering Facility: [facility] Address: [address] [place] [address] Result Comment: <150 mg/dL, Normal 150-199 mg/dL, Borderline high 200-499 mg/dL, High >499 mg/dL, Very high Performed By: #### 2 4323-8, 3023-7, LIPNF, 3016-3 ####[facility] LABCLIA [id number] [place] [address] [place] VLDL CHOLESTEROL, NF 18 mg/dL Normal <30 [facility] Comment on above: Order Comment: Speci men Type: BLOOD SPECIMENOrdering Facility: [facility] Address: [address] [place] [address] Performed By: #### 2 4323-8, 3023-7, LIPNF, 6-3 ####[facility] LABCLIA [id number] [place] [address] [place] T4 Free SerPl-mCncon 12-04- 025 Free T4 [Mass/Vol] 0.7 ng/dL Low 0.9-1.[address] [facility] Comment on above: Order Comment: Speci men Type: BLOOD SPECIMENOrdering Facility: [facility] Address: [address] [place] [address] Performed By: #### 2 4323-8, 3023-7, LIPNF, 6-3 ####[facility] LABCLIA [id number] [place] [id number] [place] TSH SerPl-aCncon 12-04-2024 TSH Qn 3.140 m[IU]/L Normal 0.270-4.200 [facility] Comment on above: Order Comment: Speci men Type: BLOOD SPECIMENOrdering Facility: [facility] Address: [address] [place] [address] Result Comment: If t he patient is , TSH reference range varies by gestational period: First Trimester (weeks 9-12): 0.180-2.990 mIU/L Second Trimester: 0.110-3.980 mIU/L Third Trimester: 0.480-4.710 mIU/L Saurabh Puri et al. A Practical Approach for the Verifications and Determination of Site- and Trimester-Specific Reference Intervals for Thyroid Function tests in . Thyroid, 2019:29:3:412-420. Nitish E, et al. 2017 Guidelines of the [place] Thyroid Association for the Diagnosis and Management of Thyroid Disease during and the . Thyroid, 2017:27:3:315-389. Performed By: #### 2 4323-8, 3024-7, LIPNF, 3016-3 ####[facility] LABCLIA [id number] [place] [address] [place] CNCOon 10-31-2024 CNCO Letter Text Normal [facility] CBC W Auto Differential pane l (Bld)on 09-20-2024 Basophils (Bld) [#/Vol] 0.03 10*3/uL Normal <0.11 [facility] Comment on above: Order Comment: Speci men Type: BLOOD SPECIMENOrdering Facility: [facility] Address: [address] [place] [address] Performed By: #### 5 7021-8 ####[facility] ALMA ROSA CAROPALOSOLEDAD [id number] [id number] [place] Basophils/100 WBC (Bld) 1.0 % Normal [facility] Comment on above: Order Comment: Speci men Type: BLOOD SPECIMENOrdering Facility: [facility] Address: [address] [place] [address] Performed By: #### 5 7021-8 ####[facility] AVAANDREWA [id number] [place] [address] [place] Differential cell count method Nom (Bld) Auto Normal [facility] Comment on above: Order Comment: Speci men Type: BLOOD SPECIMENOrdering Facility: [facility] Address: [address] [place] [address] Performed By: #### 5 7021-8 ####[facility] GORDOTHADA [id number] [place] [address] [place] Eosinophils (Bld) [#/Vol] 0.10 10*3/uL Normal <0.46 [facility] Comment on above: Order Comment: Speci men Type: BLOOD SPECIMENOrdering Facility: [facility] Address: [address] [place] [address] Performed By: #### 5 7021-8 ####[facility] GORDOPALOANDREWA [id number] [place] [address] [place] Eosinophils/100 WBC (Bld) 3.3 % Normal [facility] Comment on above: Order Comment: Speci men Type: BLOOD SPECIMENOrdering Facility: [facility] Address: [address] [place] [address] Performed By: #### 5 7021-8 ####[facility] GORDOJorgitoTHOMASLIA [id number] [place] [address] [place] Erythrocyte distribution width (RBC) [Ratio] 17.5 % High 11.5-15.0 [facility] Comment on above: Order Comment: Speci men Type: BLOOD SPECIMENOrdering Facility: [facility] Address: [address] [place] [address] Performed By: #### 5 7021-8 ####[facility] [id number] [place] [address] [place] Hematocrit (Bld) [Volume fraction] 37.2 % Normal 36.0-46.0 [facility] Comment on above: Order Comment: Speci men Type: BLOOD SPECIMENOrdering Facility: [facility] Address: [address] [place] [address] Performed By: #### 5 7021-8 ####[facility] [id number] [place] [address] [place] Hemoglobin (Bld) [Mass/Vol] 12.1 g/dL Normal 11.5-15.5 [facility] Comment on above: Order Comment: Speci men Type: BLOOD SPECIMENOrdering Facility: [facility] Address: [address] [place] [address] Performed By: #### 5 7021-8 ####[facility] [id number] [place] [address] [place] Immature granulocytes (Bld) [#/Vol] 10*3/uL Normal <0.10 [facility] Comment on above: Order Comment: Speci men Type: BLOOD SPECIMENOrdering Facility: [facility] Address: [address] [place] [address] Performed By: #### 5 7021-8 ####[facility] [id number] [place] [address] [place] Immature granulocytes/100 WBC (Bld) 0.0 % Normal [facility] Comment on above: Order Comment: Speci men Type: BLOOD SPECIMENOrdering Facility: [facility] Address: [address] [place] [address] Performed By: #### 5 7021-8 ####[facility]CL[facility] [id number] [place] [address] [place] Lymphocytes (Bld) [#/Vol] 1.41 10*3/uL Normal 1.00-4.00 [facility] Comment on above: Order Comment: Speci men Type: BLOOD SPECIMENOrdering Facility: [facility] Address: [address] [place] [address] Performed By: #### 5 7021-8 ####[facility] [id number] [place] [address] [place] Lymphocytes/100 WBC (Bld) 46.7 % Normal [facility] Comment on above: Order Comment: Speci men Type: BLOOD SPECIMENOrdering Facility: [facility] Address: [address] [place] [address] Performed By: #### 5 7021-8 ####[facility] [id number] [place] [address] [place] MCH (RBC) [Entitic mass] 27.8 pg Normal 26.0-34.0 [facility] Comment on above: Order Comment: Speci men Type: BLOOD SPECIMENOrdering Facility: [facility] Address: [address] [place] [address] Performed By: #### 5 7021-8 ####[facility] [id number] [place] [address] [place] MCHC (RBC) [Mass/Vol] 32.5 g/dL Normal 30.5-36.0 [facility] Comment on above: Order Comment: Speci men Type: BLOOD SPECIMENOrdering Facility: [facility] Address: [address] [place] [address] Performed By: #### 5 7021-8 ####[facility] [id number] [place] [address] [place] MCV (RBC) [Entitic vol] 85.5 fL Normal 80.0-100.0 [facility] Comment on above: Order Comment: Speci men Type: BLOOD SPECIMENOrdering Facility: [facility] Address: [address] [place] [address] Performed By: #### 5 7021-8 ####[facility] GORDOTOWNCLIA [id number] [place] [address] [place] Monocytes (Bld) [#/Vol] 0.31 10*3/uL Normal <0.87 [facility] Comment on above: Order Comment: Speci men Type: BLOOD SPECIMENOrdering Facility: [facility] Address: [address] [place] [address] Performed By: #### 5 7021-8 ####[facility] HOSPITALWNCLIA [id number] [place] [address] [place] Monocytes/100 WBC (Bld) 10.3 % Normal [facility] Comment on above: Order Comment: Speci men Type: BLOOD SPECIMENOrdering Facility: [facility] Address: [address] [place] [address] Performed By: #### 5 7021-8 ####[facility]ENTERNCLIA [id number] [place] [address] [place] Neutrophils (Bld) [#/Vol] 1.17 10*3/uL Low 1.45-7.50 [facility] Comment on above: Order Comment: Speci men Type: BLOOD SPECIMENOrdering Facility: [facility] Address: [address] [place] [address] Performed By: #### 5 7021-8 ####[facility] MILLTOWNCLIA [id number] [place] [address] [place] Neutrophils/100 WBC (Bld) 38.7 % Normal [facility] Comment on above: Order Comment: Speci men Type: BLOOD SPECIMENOrdering Facility: [facility] Address: [address] [place] [address] Performed By: #### 5 7021-8 ####[facility] [id number] [place] [address] [place] Nucleated RBC (Bld) [#/Vol] 10*3/uL Normal <0.01 [facility] Comment on above: Order Comment: Speci men Type: BLOOD SPECIMENOrdering Facility: [facility] Address: [address] [place] [address] Performed By: #### 5 7021-8 ####[facility] [id number] [place] [address] [place] Nucleated RBC/100 WBC (Bld) [Ratio] 0.0 /100 WBC Normal [facility] Comment on above: Order Comment: Speci men Type: BLOOD SPECIMENOrdering Facility: [facility] Address: [address] [place] [address] Performed By: #### 5 7021-8 ####[facility] [id number] [place] [address] [place] Platelet mean volume (Bld) [Entitic vol] 8.8 fL Low 9.0-12.7 [facility] Comment on above: Order Comment: Speci men Type: BLOOD SPECIMENOrdering Facility: [facility] Address: [address] [place] [address] Performed By: #### 5 7021-8 ####[facility] [id number] [place] [address] [place] Platelets (Bld) [#/Vol] 189 10*3/uL Normal 150-400 [facility] Comment on above: Order Comment: Speci men Type: BLOOD SPECIMENOrdering Facility: [facility] Address: [address] [place] [address] Performed By: #### 5 7021-8 ####[facility] [id number] [place] [address] [place] RBC (Bld) [#/Vol] 4.35 10*6/uL Normal 3.90-5.20 [facility] Comment on above: Order Comment: Speci men Type: BLOOD SPECIMENOrdering Facility: [facility] Address: [address] [place] [address] Performed By: #### 5 7021-8 ####[facility] HOS[facility]ITALWNCLIA [id number] [place] [address] [facility] OF [place] WBC (Bld) [#/Vol] 3.02 10*3/uL Low 3.70-11.00 [facility] Comment on above: Order Comment: Speci men Type: BLOOD SPECIMENOrdering Facility: [facility] Address: [address] [place] [address] Performed By: #### 5 7021-8 ####[facility]ENTERNCLIA [id number] [address] OF [place] CNOVSPon 09-20-2024 CNOVSP Visit (SP) Office (HEMAWS) MEHDICAROLA REIS ([id number]) 1990 F Date Time Provider Department 09/20/24 10:00 AM YANETH DAVENPORT During your visit today, we recorded the following information about you: Temperature Pulse Blood pressure Weight 97.4 degrees 67/minute 91/61 41.1 kg Yaneth Davenport 09/20/2024 3:32 PM Addendum Hematology Progress Note Carola Harding 1990 Encounter date: 09/20/2024 HPI: Carola Harding is a 34 year old female with a PMHx of myalgia. Notes that she has not really been worked up for any conditions that she is aware of. No routine health maintenance. Per chart review: Long standing history of iron deficiency anemia, anemia during . 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 Found to be pancytopenic during admission (result from [facility] scanned in). Counts have since recovered. PCP visit on 07/21/2022. Very fatigued. Sleeping a lot since discharge. Started about 3 weeks ago when she started to feel sick. Does not feel that she has fully recovered from admission. Denies recurrent fevers, chills of NS. No lumps or bumps. No bony aches or pains. Denies rash or skin changes. SOB and AMADOR improving. Abx for 10 days. Cough better. No CP, palpitations. Follow up with cardio scheduled. Denies PERRY, dizziness. No significant changes in bowel or bladder habits. No hx of GI workup. Notes that her daughter has been dx with celiac. No hx of scope. Does not follow any particular dietary restrictions. Edentulous. Denies PICA. Denies dark, tarry stools. No BRBPR. Does not feel that she is able to gain weight, no unintentional weight loss. Drinking ensures regularly. Denies abdominal pains. Has been on PO iron BID for >8 months. No significant improvement in iron studies with PO iron. Denies hematuria, hematochezia, hemoptysis, hematemesis. Menstrual cycles irregular - heavy last about 1-1.5 weeks Saturating 1 pad per 1.5 to 2 hours. Worse and more irregular since tubal ligation about 3 years. She follows with [facility]. Required IV iron with last 2 pregnancies. No follow up for RE. Has 5 children between the ages of 10 and 3. Hx of 5 miscarriages. Pt told that she lost a lot of blood during each delivery. Notes more significant bleeding with last two pregnancies. Required blood transfusion with 4th due to hemorrhage per SO. Believes it was just 1 unit. Mother and sister with hx of heavy bleeding. Denies any known personal or family hx of bleeding or clotting disorders. No hx of cancers. 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 Occasional cigarette once in a while OV 09/05/2023 Ms. Harding presents today with her SO for follow up of RE. She notes that this has been an ongoing issue for her and we reviewed that she has been iron deficient for many years with related exacerbations of RE throughout that time. Since last being seen she has had 5 doses IV iron sucrose 200mg, last dose on 08/11/2023. She reports tolerating IV iron well overall. Lincoln better after 2nd infusion. Denies any issues with bleeding or bruising. Periods irregular, no menses in last 6 weeks. Hcg performed at [facility] neg. No SOB, CP. She was admitted to [facility] on 08/19/23 for worsening abdominal pain, N/V. Denies fevers, chills or NS. No recurrent infections. During admission, cardiac meds for cardiomyopathy were discontinued. HR and BP has since stabilized. She notes that HR was dropping down into 30s and she felt very tired. She is currently being worked up by Dr. Callahan at [facility] for GI malabsorptive conditions. EGD and colonoscopy were both performed during admission, several labs still pending. Final path pending. She has follow up scheduled on 09/11/23. She denies changes in bowel habits. No diarrhea or vomiting. Pain has improved. We reviewed most recent labs and hospital labs which show improvement in HGB. Encouraged her and SO to follow up with GI to further investigate cause of her abd pain, malnutrition. Reviewed that she will likely require repeat IV iron administration. Dicussed hematology role in her care at this time and management of anemia, pt acknowledged. Seems to tolerate and respond well to IV iron administration. Interval hx: Pt presents today for follow up of RE, s/p IV iron. Admission end of June for influenza a. Noted hgb to be around 9. Iron low. RLS symptoms. She is now s/p IV iron sucrose 200 mg x5 last dose on 07/26/2024. Hgb has improved to 12.2 today. She notes a lot of family stress at home. Hasn't been eating as well due to stress. 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 On prednisone. Weight is stable today. She is planning to follow up with Dr. Callahan. Unable to afford ensures/boost. Denies any further heart issues. No bleed (more content not included)... Normal [facility] Ferritin SerPl-mCncon 2024 Ferritin [Mass/Vol] 87.4 ng/mL Normal 14.7-205.1 [facility] Comment on above: Order Comment: Speci men Type: BLOOD SPECIMENOrdering Facility: [facility] Address: [address] [place] [address] Performed By: #### 5 0190-8, 2132-02, 2275-09 ####[facility] LABCLIA [id number] [place] [id number] [place] Iron and Iron binding capaci ty panelon 09-20-2024 Iron [Mass/Vol] 91 ug/dL Normal 41-186 [facility] Comment on above: Order Comment: Speci men Type: BLOOD SPECIMENOrdering Facility: [facility] Address: [address] [place] [address] Performed By: #### 5 0190-8, 2132-02, 2275-09 ####[facility] LABIA [id number] [place] [address] [place] Iron binding capacity [Mass/Vol] 295 ug/dL Normal 232-386 [facility] Comment on above: Order Comment: Speci men Type: BLOOD SPECIMENOrdering Facility: [facility] Address: [address] [place] [address] Performed By: #### 5 0190-8, 2132-02, 2275-09 ####[facility] LABIA [id number] [place] [address] [place] Iron/TIBC [Molar ratio] 30.8 % Normal 15.0-57.0 [facility] Comment on above: Order Comment: Speci men Type: BLOOD SPECIMENOrdering Facility: [facility] Address: [address] [place] [address] Performed By: #### 5 0190-8, 2132-02, 2275-09 ####[facility] LABIA [id number] [address] [address] [place] Methylmalonate SerPl-sCncon 09-20-2024 Methylmalonate [Moles/Vol] 0.13 umol/L Normal <=0.40 [facility] Comment on above: Order Comment: Ada castañeda Type: BLOOD SPECIMENOrdering Facility: [facility] Address: [address] [place] [address] Result Comment: This test was developed, and its performance characteristics determined by the [facility] Department of Pathology and Laboratory Medicine. It has not been cleared or approved by the FDA. The [facility] Department of Pathology and Laboratory Medicine is regulated under CLIA as qualified to perform high-complexity testing. This test is used for clinical purposes. It should not be regarded as investigational or for research. Performed By: #### 1 3964-2 ####[facility] LABIA [id number] [address] [place] Vit B12 [facility] Cobalamin (Vitamin B12) [Mass/Vol] 722 pg/mL Normal 232-1245 [facility] Comment on above: Order Comment: Ada castañeda Type: BLOOD SPECIMENOrdering Facility: [facility] Address: [address] [place] [address] Performed By: #### 5 0190-8, 2132-9, 2276-4 ####[facility] LABIA [id number] [address] OF [facility] CT CHEST WO IVCONon 07-25-19 CT CHEST WO IVCON * * *Final Report* * * DATE OF EXAM: Jul 25 2024 9:52AM [facility] 0541 - CT CHEST WO IVCON / PROCEDURE REASON: Chronic cough * * * * Physician Interpretation * * * * EXAMINATION: CHEST CT WITHOUT CONTRAST CLINICAL HISTORY: Chronic cough. Technique: Spiral CT acquisition of the chest from the thoracic inlet to the upper abdomen without contrast. MQ: [id number]_6 CT Radiation dose: Integrated Dose-length product (DLP) for this visit = 116 mGy*cm CT Dose Reduction Employed: Automated exposure control(AEC) and iterative recon Comparison: None. RESULT: Limitations: None. Lines, tubes, and devices: None. Lung parenchyma and airways: The central airways are patent. No consolidation. No suspicious pulmonary nodule. There is biapical scarring. Pleural space: No pleural effusion. No pleural thickening. Lower neck, lymph nodes, and mediastinum: The imaged thyroid gland is normal. No lymphadenopathy in the supraclavicular, axillary, mediastinal, or hilar regions. Heart, pericardium, and thoracic vessels: The thoracic aorta and main pulmonary artery are normal in caliber. The cardiac chambers are normal in size. No coronary artery atherosclerotic calcifications are noted, although the study is not optimized for coronary assessment. No pericardial effusion or thickening. Bones and soft tissues: There are postoperative changes along the right clavicle. No destructive bone lesion. Chest wall is unremarkable. Upper abdomen: No abnormality in the imaged upper abdomen. Localizer images: No additional findings. IMPRESSION: Unremarkable CT chest exam. Legal Executive: PSCB Transcribe Date/Time: Jul 29 2024 10:00A Dictated by : RUTH ANN ROOT MD This examination was interpreted and the report reviewed and electronically signed by: RUTH ANN ROOT MD on Jul 31 2024 10:06AM EST [id number] CN Normal [facility] CNOVSPon 07-11-2024 CNOVSP Visit (SP) Office (HEMAWS) CAROLA HARDING ([id number]) 1990 F Date Time Provider Department 07/11/24 10:00 AM YANETH DAVENPORT During your visit today, we recorded the following information about you: Temperature Pulse Blood pressure Weight 99 degrees 87/minute 99/75 40.4 kg Height 1.565 m Yaneth Davenport 07/12/2024 2:06 PM Signed Hematology Progress Note Carola Harding 1990 Encounter date: 07/11/2024 HPI: Carola Harding is a 33 year old female with a PMHx of myalgia. Notes that she has not really been worked up for any conditions that she is aware of. No routine health maintenance. Per chart review: Long standing history of iron deficiency anemia, anemia during . 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 Found to be pancytopenic during admission (result from [facility] scanned in). Counts have since recovered. PCP visit on 07/21/2022. Very fatigued. Sleeping a lot since discharge. Started about 3 weeks ago when she started to feel sick. Does not feel that she has fully recovered from admission. Denies recurrent fevers, chills of NS. No lumps or bumps. No bony aches or pains. Denies rash or skin changes. SOB and AMADOR improving. Abx for 10 days. Cough better. No CP, palpitations. Follow up with cardio scheduled. Denies PERRY, dizziness. No significant changes in bowel or bladder habits. No hx of GI workup. Notes that her daughter has been dx with celiac. No hx of scope. Does not follow any particular dietary restrictions. Edentulous. Denies PICA. Denies dark, tarry stools. No BRBPR. Does not feel that she is able to gain weight, no unintentional weight loss. Drinking ensures regularly. Denies abdominal pains. Has been on PO iron BID for >8 months. No significant improvement in iron studies with PO iron. Denies hematuria, hematochezia, hemoptysis, hematemesis. Menstrual cycles irregular - heavy last about 1-1.5 weeks Saturating 1 pad per 1.5 to 2 hours. Worse and more irregular since tubal ligation about 3 years. She follows with [facility]. Required IV iron with last 2 pregnancies. No follow up for RE. Has 5 children between the ages of 10 and 3. Hx of 5 miscarriages. Pt told that she lost a lot of blood during each delivery. Notes more significant bleeding with last two pregnancies. Required blood transfusion with 4th due to hemorrhage per SO. Believes it was just 1 unit. Mother and sister with hx of heavy bleeding. Denies any known personal or family hx of bleeding or clotting disorders. No hx of cancers. 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 Occasional cigarette once in a while OV 09/05/2023 Ms. Harding presents today with her SO for follow up of RE. She notes that this has been an ongoing issue for her and we reviewed that she has been iron deficient for many years with related exacerbations of RE throughout that time. Since last being seen she has had 5 doses IV iron sucrose 200mg, last dose on 08/11/2023. She reports tolerating IV iron well overall. Lincoln better after 2nd infusion. Denies any issues with bleeding or bruising. Periods irregular, no menses in last 6 weeks. Hcg performed at [facility] neg. No SOB, CP. She was admitted to [facility] on 08/19/23 for worsening abdominal pain, N/V. Denies fevers, chills or NS. No recurrent infections. During admission, cardiac meds for cardiomyopathy were discontinued. HR and BP has since stabilized. She notes that HR was dropping down into 30s and she felt very tired. She is currently being worked up by Dr. Callahan at [facility] for GI malabsorptive conditions. EGD and colonoscopy were both performed during admission, several labs still pending. Final path pending. She has follow up scheduled on 09/11/23. She denies changes in bowel habits. No diarrhea or vomiting. Pain has improved. We reviewed most recent labs and hospital labs which show improvement in HGB. Encouraged her and SO to follow up with GI to further investigate cause of her abd pain, malnutrition. Reviewed that she will likely require repeat IV iron administration. Dicussed hematology role in her care at this time and management of anemia, pt acknowledged. Seems to tolerate and respond well to IV iron administration. Interval hx: Pt presents today for follow up of RE. Recent admission for influenza a. Noted hgb to be around 9. Iron low. RLS symptoms. She is following with GI for autoimmune gastritis. On prednisone. Weight is down. She is planning to follow up with Dr. Callahan. Denies any further heart issues. No bleeding. She is having regular periods. Started taking PO iron on Monday. We reviewed that she is likely not absorbing well due to GI dysfunction and discussed symptoms of RE and when to call. Plan for IV iron PAST MEDICAL HISTOR (more content not included)... Normal [facility] Ana 07-11-2024 FRANCIE Telephone (ELAINE) CAROLA HARDING ([id number]) 1990 F Date Time Provider Department 07/11/24 YANETH DAVENPORT During your visit today, we recorded the following information about you: Elsi Wallace 07/11/2024 1:11 PM Signed Called patient but was unable to lvm due to mailbox is full. Elsi Kilpatrick 07/18/2024 3:59 PM Signed Changed OV to same day as labs Elsi Wallace Allergies As of Date: 07/11/2024 Noted Allergy Reaction AMOXICILLIN 09/29/2011 4 - Hives LACTULOSE 09/29/2011 4 - Hives PERCOCET (OXYCODONE-ACETAMINO PHEN)09/29/2011 14 - Other: See Comments Comments: ABDOMINAL PAIN SUPRAX (CEFIXIME) 09/29/2011 4 - Hives Date Reviewed: 07/11/2024 Reviewed by: Yaneth Davenport - Fully Assessed Prescriptions as of 07/18/2024 - cyanocobalamin (VITAMIN B-12) 1,000 mcg tab Take 1,000 mcg by mouth once daily. - azithromycin (ZITHROMAX Z-INGE) 250 mg tablet 2 tablets by mouth first day then 1 tablet the next 4 days - predniSONE (DELTASONE) 20 mg tablet Take 20 mg by mouth two times a day. - FOLIC ACID ORAL Take by mouth two times a day. - albuterol HFA (PROVENTIL HFA, VENTOLIN HFA) 90 mcg/actuation inhaler EVERY 4 HOURS NEEDED as needed for Wheezing/SOB - ferrous sulfate (IRON) 325 mg (65 mg iron) tablet Take 1 tablet by mouth every Monday, Monday, and Monday. - fluticasone (FLONASE) 50 mcg/actuation nasal spray Use 2 Sprays in each nostril once daily. Rinse mouth after use. - sertraline (ZOLOFT) 25 mg tablet Take 1 tablet by mouth once daily. - ascorbic acid, vitamin C, (VITAMIN C) 500 mg tablet Take 1 tablet by mouth two times a day. - ibuprofen (MOTRIN) 600 mg tablet TAKE 1 TABLET BY MOUTH THREE TIMES DAILY NEEDED FOR PAIN OR FEVER - Food Supplement, Lactose-Free (ENSURE ACTIVE MUSCLE HEALTH) liqd Take 237 mL by mouth four times daily for 7 days. Problem List As Of Date 07/11/2024 Noted Resolved First trimester bleeding [O20.9] 09/29/2011 03/19/2012 Depression [F32.A] 09/29/2011 05/18/2017 History of left flank pain [Z87.898] 03/19/2012 11/12/2012 Elevated TSH [R79.89] 05/29/2012 care of habitual aborter in first tri*06/20/2012 11/12/2012 Normal , first [Z34.00] 06/20/2012 11/12/2012 Uterine size date discrepancy, antepartum [O26.*09/06/2012 11/12/2012 depression [F53.0] 12/03/2012 02/01/2016 Underweight [R63.6] 12/25/2012 03/23/2020 Weight loss [R63.4] 12/25/2012 05/18/2017 Decreased appetite [R63.0] 12/25/2012 02/01/2016 Rash [R21] 12/25/2012 02/01/2016 Fatigue [R53.83] 12/25/2012 02/01/2016 Myalgia [M79.10] 12/25/2012 Iron deficiency [E61.1] 03/08/2013 08/27/2019 Short interval between pregnancies complicating* 014 02/01/2016 IUGR (intrauterine growth retardation) in prior*07/02/2013 03/23/2020 Thyroid disorder [E07.9] 07/02/2013 05/18/2017 Supervision of other high-risk (V23.89*09/201305/18/2017 Anemia complicating , third trimester *12/25/2013 08/27/2019 SGA (small for gestational age) [P05.10] 01/08/2014 02/01/2016 History of depression [Z86.59] 05/18/2017 03/23/2020 History of thyroid disorder [Z86.39] 05/18/2017 Strain of unspecified muscle and tendon at ankl*10/13/2017 10/13/2017 Fall on same level from slipping, tripping and *10/13/2017 10/13/2017 Malabsorption due to intolerance, not elsewhere*12/14/2017 08/27/2019 Iron deficiency anemia [D50.9] 12/14/2017 08/27/2019 History of anemia [Z86.2] 08/06/2018 Request for sterilization [Z30.2] 08/27/2019 03/23/2020 Urinary tract infection affecting [O2*08/29/2019 03/23/2020 Hyperthyroidism affecting in second t*10/03/2019 03/23/2020 Anemia during in second trimester [O9*11/06/2019 Thrombocytopenia affecting (HCC) [O99*01/02/2020 03/23/2020 Closed displaced fracture of shaft of right cla*03/14/2022 Rotator cuff impingement syndrome of right shou*03/14/2022 Iron deficiency anemia [D50.9] 07/25/2023 Underweight [R63.6] 11/02/2023 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 [J11.8*11/02/2023 Fatigue [R53.83] 11/02/2023 Encounter Status:[facility] CAROLA HARDING ([id number]) 1990 F Date Time Provider Department 07/10/24 MARLYN ESTRADA [facility] During your visit today, we recorded the following information about you: Allergies As of Date: 07/10/2024 Noted Allergy Reaction AMOXICILLIN 09/29/2011 4 - Hives LACTULOSE 09/29/2011 4 - Hives PERCOCET (OXYCODONE-ACETAMINO PHEN)09/29/2011 14 - Other: See Comments Comments: ABDOMINAL PAIN SUPRAX (CEFIXIME) 09/29/2011 4 - Hives Date Reviewed: 07/08/2024 Reviewed by: Marlyn Estrada APRN.VETERINARY TOXICOLOGIST - Fully Assessed Reason for Visit: Results [95] Prescriptions as of 07/10/2024 - azithromycin (ZITHROMAX Z-INGE) 250 mg tablet 2 tablets by mouth first day then 1 tablet the next 4 days - predniSONE (DELTASONE) 20 mg tablet Take 20 mg by mouth two times a day. - FOLIC ACID ORAL Take by mouth two times a day. - albuterol HFA (PROVENTIL HFA, VENTOLIN HFA) 90 mcg/actuation inhaler EVERY 4 HOURS NEEDED as needed for Wheezing/SOB - benzonatate (TESSALON PERLE) 100 mg capsule THREE TIMES A DAY as needed for cough - ferrous sulfate (IRON) 325 mg (65 mg iron) tablet Take 1 tablet by mouth every Monday, Monday, and Monday. - fluticasone (FLONASE) 50 mcg/actuation nasal spray Use 2 Sprays in each nostril once daily. Rinse mouth after use. - sertraline (ZOLOFT) 25 mg tablet Take 1 tablet by mouth once daily. - ascorbic acid, vitamin C, (VITAMIN C) 500 mg tablet Take 1 tablet by mouth two times a day. - ibuprofen (MOTRIN) 600 mg tablet TAKE 1 TABLET BY MOUTH THREE TIMES DAILY NEEDED FOR PAIN OR FEVER - Food Supplement, Lactose-Free (ENSURE ACTIVE MUSCLE HEALTH) liqd Take 237 mL by mouth four times daily for 7 days. Problem List As Of Date 07/10/2024 Noted Resolved First trimester bleeding [O20.9] 09/29/2011 03/19/2012 Depression [F32.A] 09/29/2011 05/18/2017 History of left flank pain [Z87.898] 03/19/2012 11/12/2012 Elevated TSH [R79.89] 05/29/2012 care of habitual aborter in first tri*06/20/2012 11/12/2012 Normal , first [Z34.00] 06/20/2012 11/12/2012 Uterine size date discrepancy, antepartum [O26.*09/06/2012 11/12/2012 depression [F53.0] 12/03/2012 02/01/2016 Underweight [R63.6] 12/25/2012 03/23/2020 Weight loss [R63.4] 12/25/2012 05/18/2017 Decreased appetite [R63.0] 12/25/2012 02/01/2016 Rash [R21] 12/25/2012 02/01/2016 Fatigue [R53.83] 12/25/2012 02/01/2016 Myalgia [M79.10] 12/25/2012 Iron deficiency [E61.1] 03/08/2013 08/27/2019 Short interval between pregnancies complicating* 014 02/01/2016 IUGR (intrauterine growth retardation) in prior*07/02/2013 03/23/2020 Thyroid disorder [E07.9] 07/02/2013 05/18/2017 Supervision of other high-risk (V23.89*09/201305/18/2017 Anemia complicating , third trimester *12/25/2013 08/27/2019 SGA (small for gestational age) [P05.10] 01/08/2014 02/01/2016 History of depression [Z86.59] 05/18/2017 03/23/2020 History of thyroid disorder [Z86.39] 05/18/2017 Strain of unspecified muscle and tendon at ankl*10/13/2017 10/13/2017 Fall on same level from slipping, tripping and *10/13/2017 10/13/2017 Malabsorption due to intolerance, not elsewhere*12/14/2017 08/27/2019 Iron deficiency anemia [D50.9] 12/14/2017 08/27/2019 History of anemia [Z86.2] 08/06/2018 Request for sterilization [Z30.2] 08/27/2019 03/23/2020 Urinary tract infection affecting [O2*08/29/2019 03/23/2020 Hyperthyroidism affecting in second t*10/03/2019 03/23/2020 Anemia during in second trimester [O9*11/06/2019 Thrombocytopenia affecting (HCC) [O99*01/02/2020 03/23/2020 Closed displaced fracture of shaft of right cla*03/14/2022 Rotator cuff impingement syndrome of right shou*03/14/2022 Iron deficiency anemia [D50.9] 07/25/2023 Underweight [R63.6] 11/02/2023 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 [J11.8*11/02/2023 Fatigue [R53.83] 11/02/2023 Encounter Status:Closed by MARLYN ESTRAAD on 07/10/24 [facility] Ana 07-09-2024 [facility] Telephone ([facility]AINE) MEHDICAROLA ([id number]) 1990 F Date Time Provider Department 07/09/24 YANETH DAVENPORT During your visit today, we recorded the following information about you: Yaneth Davenport 07/09/2024 10:17 AM Signed Looks like she no showed last OV but she is established. Needs IV iron. [facility] orders are in. Can you please schedule IV iron sucrose 200 mg x 5 ? Ok to just schedule OV on day that she is here for IV iron infusion. I called and spoke with patient about plan and she is agreeable. Yaneth Davenport APRN.Joan Rodríguez 07/09/2024 1:11 PM Signed Scheduled iron with patient. Start email sent Allergies As of Date: 07/09/2024 Noted Allergy Reaction AMOXICILLIN 09/29/2011 4 - Hives LACTULOSE 09/29/2011 4 - Hives PERCOCET (OXYCODONE-ACETAMINO PHEN)09/29/2011 14 - Other: See Comments Comments: ABDOMINAL PAIN SUPRAX (CEFIXIME) 09/29/2011 4 - Hives Date Reviewed: 07/08/2024 Reviewed by: Marlyn Estrada APRN.VETERINARY TOXICOLOGIST - Fully Assessed Prescriptions as of 07/10/2024 - azithromycin (ZITHROMAX Z-INGE) 250 mg tablet 2 tablets by mouth first day then 1 tablet the next 4 days - predniSONE (DELTASONE) 20 mg tablet Take 20 mg by mouth two times a day. - FOLIC ACID ORAL Take by mouth two times a day. - albuterol HFA (PROVENTIL HFA, VENTOLIN HFA) 90 mcg/actuation inhaler EVERY 4 HOURS NEEDED as needed for Wheezing/SOB - benzonatate (TESSALON PERLE) 100 mg capsule THREE TIMES A DAY as needed for cough - ferrous sulfate (IRON) 325 mg (65 mg iron) tablet Take 1 tablet by mouth every Monday, Monday, and Monday. - fluticasone (FLONASE) 50 mcg/actuation nasal spray Use 2 Sprays in each nostril once daily. Rinse mouth after use. - sertraline (ZOLOFT) 25 mg tablet Take 1 tablet by mouth once daily. - ascorbic acid, vitamin C, (VITAMIN C) 500 mg tablet Take 1 tablet by mouth two times a day. - ibuprofen (MOTRIN) 600 mg tablet TAKE 1 TABLET BY MOUTH THREE TIMES DAILY NEEDED FOR PAIN OR FEVER - Food Supplement, Lactose-Free (ENSURE ACTIVE MUSCLE HEALTH) liqd Take 237 mL by mouth four times daily for 7 days. Problem List As Of Date 07/09/2024 Noted Resolved First trimester bleeding [O20.9] 09/29/2011 03/19/2012 Depression [F32.A] 09/29/2011 05/18/2017 History of left flank pain [Z87.898] 03/19/2012 11/12/2012 Elevated TSH [R79.89] 05/29/2012 care of habitual aborter in first tri*06/20/2012 11/12/2012 Normal , first [Z34.00] 06/20/2012 11/12/2012 Uterine size date discrepancy, antepartum [O26.*09/06/2012 11/12/2012 depression [F53.0] 12/03/2012 02/01/2016 Underweight [R63.6] 12/25/2012 03/23/2020 Weight loss [R63.4] 12/25/2012 05/18/2017 Decreased appetite [R63.0] 12/25/2012 02/01/2016 Rash [R21] 12/25/2012 02/01/2016 Fatigue [R53.83] 12/25/2012 02/01/2016 Myalgia [M79.10] 12/25/2012 Iron deficiency [E61.1] 03/08/2013 08/27/2019 Short interval between pregnancies complicating* 014 02/01/2016 IUGR (intrauterine growth retardation) in prior*07/02/2013 03/23/2020 Thyroid disorder [E07.9] 07/02/2013 05/18/2017 Supervision of other high-risk (V23.89*09/201305/18/2017 Anemia complicating , third trimester *12/25/2013 08/27/2019 SGA (small for gestational age) [P05.10] 01/08/2014 02/01/2016 History of depression [Z86.59] 05/18/2017 03/23/2020 History of thyroid disorder [Z86.39] 05/18/2017 Strain of unspecified muscle and tendon at ankl*10/13/2017 10/13/2017 Fall on same level from slipping, tripping and *10/13/2017 10/13/2017 Malabsorption due to intolerance, not elsewhere*12/14/2017 08/27/2019 Iron deficiency anemia [D50.9] 12/14/2017 08/27/2019 History of anemia [Z86.2] 08/06/2018 Request for sterilization [Z30.2] 08/27/2019 03/23/2020 Urinary tract infection affecting [O2*08/29/2019 03/23/2020 Hyperthyroidism affecting in second t*10/03/2019 03/23/2020 Anemia during in second trimester [O9*11/06/2019 Thrombocytopenia affecting (HCC) [O99*01/02/2020 03/23/2020 Closed displaced fracture of shaft of right cla*03/14/2022 Rotator cuff impingement syndrome of right shou*03/14/2022 Iron deficiency anemia [D50.9] 07/25/2023 Underweight [R63.6] 11/02/2023 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 [J11.8*11/02/2023 Fatigue [R53.83] 11/02/2023 Encounter Status:Closed by YANETH DAVENPORT on 07/10/24 Normal [facility] CBC W Auto Differential pane l (Bld)on 07-08-2024 Basophils (Bld) [#/Vol] 10*3/uL Normal <0.11 [facility] Comment on above: Order Comment: Speci men Type: BLOOD SPECIMENOrdering Facility: [facility] Address: [address] [place] [address] Performed By: #### 5 7021-8 ####[facility] LABCLIA [id number] [address] [place] Basophils/100 WBC (Bld) 0.6 % Normal [facility] Comment on above: Order Comment: Speci men Type: BLOOD SPECIMENOrdering Facility: [facility] Address: [address] [place] [address] Performed By: #### 5 7021-8 ####[facility] LABCLIA [id number] [place] [address] [place] Differential cell count method Nom (Bld) Auto Normal [facility] Comment on above: Order Comment: Speci men Type: BLOOD SPECIMENOrdering Facility: [facility] Address: [address] [place] [address] Performed By: #### 5 7021-8 ####[facility] LABCLIA [id number] [place] [address] [place] Eosinophils (Bld) [#/Vol] 0.04 10*3/uL Normal <0.46 [facility] Comment on above: Order Comment: Speci men Type: BLOOD SPECIMENOrdering Facility: [facility] Address: [address] [place] [address] Performed By: #### 5 7021-8 ####[facility] LABCLIA [id number] [address] [place] Eosinophils/100 WBC (Bld) 1.3 % Normal [facility] Comment on above: Order Comment: Speci men Type: BLOOD SPECIMENOrdering Facility: [facility] Address: [address] [place] [address] Performed By: #### 5 7021-8 ####[facility] LABCLIA [id number] [address] [id number] [address] [place] Erythrocyte distribution width (RBC) [Ratio] 13.7 % Normal 11.5-15.0 [facility] Comment on above: Order Comment: Speci men Type: BLOOD SPECIMENOrdering Facility: [facility] Address: [address] [place] [address] Performed By: #### 5 7021-8 ####[facility] LABCLIA [id number] [place] [address] [place] Hematocrit (Bld) [Volume fraction] 31.2 % Low 36.0-46.0 [facility] Comment on above: Order Comment: Speci men Type: BLOOD SPECIMENOrdering Facility: [facility] Address: [address] [place] [address] Performed By: #### 5 7021-8 ####[facility] LABIA [id number] [place] [address] [place] Hemoglobin (Bld) [Mass/Vol] 9.0 g/dL Low 11.5-15.5 [facility] Comment on above: Order Comment: Speci men Type: BLOOD SPECIMENOrdering Facility: [facility] Address: [address] [place] [address] Performed By: #### 5 7021-8 ####[facility] LABIA [id number] [place] [address] [place] Immature granulocytes (Bld) [#/Vol] 10*3/uL Normal <0.10 [facility] Comment on above: Order Comment: Speci men Type: BLOOD SPECIMENOrdering Facility: [facility] Address: [address] [place] [address] Performed By: #### 5 7021-8 ####[facility] LABIA [id number] [place] [address] [place] Immature granulocytes/100 WBC (Bld) 0.0 % Normal [facility] Comment on above: Order Comment: Speci men Type: BLOOD SPECIMENOrdering Facility: [facility] Address: [address] [place] [address] Performed By: #### 5 7021-8 ####[facility] LABCLIA [id number] [place] [address] [place] Lymphocytes (Bld) [#/Vol] 1.56 10*3/uL Normal 1.00-4.00 [facility] Comment on above: Order Comment: Speci men Type: BLOOD SPECIMENOrdering Facility: [facility] Address: [address] [place] [address] Performed By: #### 5 7021-8 ####[facility] LABCLIA [id number] [place] [address] [place] Lymphocytes/100 WBC (Bld) 49.1 % Normal [facility] Comment on above: Order Comment: Speci men Type: BLOOD SPECIMENOrdering Facility: [facility] Address: [address] [place] [address] Performed By: #### 5 7021-8 ####[facility] LABCLIA [id number] [place] [address] [place] MCH (RBC) [Entitic mass] 23.3 pg Low 26.0-34.0 [facility] Comment on above: Order Comment: Speci men Type: BLOOD SPECIMENOrdering Facility: [facility] Address: [address] [place] [address] Performed By: #### 5 7021-8 ####[facility] LABCLIA [id number] [place] [address] [place] MCHC (RBC) [Mass/Vol] 28.8 g/dL Low 30.5-36.0 [facility] Comment on above: Order Comment: Speci men Type: BLOOD SPECIMENOrdering Facility: [facility] Address: [address] [place] [address] Performed By: #### 5 7021-8 ####[facility] LABCLIA [id number] [place] [address] [place] MCV (RBC) [Entitic vol] 80.8 fL Normal 80.0-100.0 [facility] Comment on above: Order Comment: Speci men Type: BLOOD SPECIMENOrdering Facility: [facility] Address: [address] [place] [address] Performed By: #### 5 7021-8 ####[facility] LABCLIA [id number] [place] [address] [place] Monocytes (Bld) [#/Vol] 0.44 10*3/uL Normal <0.87 [facility] Comment on above: Order Comment: Speci men Type: BLOOD SPECIMENOrdering Facility: [facility] Address: [address] [place] [address] Performed By: #### 5 7021-8 ####[facility] LABCLIA [id number] [place] [address] [place] Monocytes/100 WBC (Bld) 13.8 % Normal [facility] Comment on above: Order Comment: Speci men Type: BLOOD SPECIMENOrdering Facility: [facility] Address: [address] [place] [address] Performed By: #### 5 7021-8 ####[facility] LABCLIA [id number] [place] [address] [place] Neutrophils (Bld) [#/Vol] 1.12 10*3/uL Low 1.45-7.50 [facility] Comment on above: Order Comment: Speci men Type: BLOOD SPECIMENOrdering Facility: [facility] Address: [address] [place] [address] Performed By: #### 5 7021-8 ####[facility] LABCLIA [id number] [place] [address] [place] Neutrophils/100 WBC (Bld) 35.2 % Normal [facility] Comment on above: Order Comment: Speci men Type: BLOOD SPECIMENOrdering Facility: [facility] Address: [address] [place] [address] Performed By: #### 5 7021-8 ####[facility] LABCLIA [id number] [place] [address] [place] Nucleated RBC (Bld) [#/Vol] 10*3/uL Normal <0.01 [facility] Comment on above: Order Comment: Speci men Type: BLOOD SPECIMENOrdering Facility: [facility] Address: [address] [place] [address] Performed By: #### 5 7021-8 ####[facility] LABCLIA [id number] [place] [address] [place] Nucleated RBC/100 WBC (Bld) [Ratio] 0.0 /100 WBC Normal [facility] Comment on above: Order Comment: Speci men Type: BLOOD SPECIMENOrdering Facility: [facility] Address: [address] [place] [address] Performed By: #### 5 7021-8 ####[facility] LABCLIA [id number] [place] [address] [place] Platelet mean volume (Bld) [Entitic vol] 10.1 fL Normal 9.0-12.7 [facility] Comment on above: Order Comment: Speci men Type: BLOOD SPECIMENOrdering Facility: [facility] Address: [address] [place] [address] Performed By: #### 5 7021-8 ####[facility] LABCLIA [id number] [place] [address] [place] Platelets (Bld) [#/Vol] 162 10*3/uL Normal 150-400 [facility] Comment on above: Order Comment: Speci men Type: BLOOD SPECIMENOrdering Facility: [facility] Address: [address] [place] [address] Performed By: #### 5 7021-8 ####[facility] LABCLIA [id number] [place] [address] [place] RBC (Bld) [#/Vol] 3.86 10*6/uL Low 3.90-5.20 [facility] Comment on above: Order Comment: Speci men Type: BLOOD SPECIMENOrdering Facility: [facility] Address: [address] [place] [address] Performed By: #### 5 7021-8 ####[facility] LABCLIA [id number] [place] [address] [place] WBC (Bld) [#/Vol] 3.18 10*3/uL Low 3.70-11.00 [facility] Comment on above: Order Comment: Speci men Type: BLOOD SPECIMENOrdering Facility: [facility] Address: [address] [place] [address] Performed By: #### 5 7021-8 ####[facility] LABIA [id number] [place] [address] [place] CNOVon 07-08-2024 CNOV Office Visit (FAMPWS) CAROLA HARDING ([id number]) 1990 F Date Time Provider Department 07/08/24 11:00 AM MARLYN ESTRADA FAMPWS During your visit today, we recorded the following information about you: Pulse Respiration Blood pressure Weight 66/minute 14/minute 108/62 40.8 kg Marlyn Estrada, STEFANIE.VETERINARY TOXICOLOGIST 07/08/2024 11:26 AM Signed Chief Complaint Patient presents with: [facility] follow up HPI Carola Harding is a 33 year old female who presents here today for Above Complaints. Carola is an established patient of Dr. Vicente DO. Concerns today... ER follow-up --- [facility] ER visit on 07/03 d/t fever and flu-like/viral symptoms x 1-2 days. COVID, flu, RSV, and strep all negative. CMP, troponin, BNP, and lipase were normal. CBC showed significant microcytic anemia with hgb of 8.9. hx of iron deficiency leading to iron transfusions. CXR and EKG also unremarkable. No concern for or UTI. Patient given tylenol and discharged. Today in office... Pt reports feeling somewhat better since ER visit. Does report chronic persistent cough x 3-4 months that will not go away. Intermittently productive. Denies any more congestion or sinus pressure symptoms. Does not take PO iron supplements anymore because Dr. Callahan took her off of this. His plan was to manage and treat malnutrition dx which should improve iron absorption. Has tried to call Dr. Callahan's office to schedule outpatient appointment following ER but not call back yet. Last iron transfusions in with hematology, [facility]. Pt can tell she is anemic d/t the way the feels. Past medical history, appointments, medications, allergies reviewed. Previous Medical History PAST MEDICAL HISTORY Diagnosis Date Anemia complicating 12/25/2013 Chlamydia 11/2010 Dysthymic disorder Depression (non-psychotic) Hypothyroidism Iron deficiency depression 12/03/2012 Strain of unspecified muscle and tendon at ankle and foot level, right foot, initial encounter 10/13/2017 Previous Surgical History PAST SURGICAL HISTORY Procedure Laterality Date COLONOSCOPY SCREENING 08/21/2023 EGD W/O [facility] SPEC VARICIES INJ 08/21/2023 PAST SURGICAL HISTORY OF 05/20/2014 Right open reduction internal fixation clavicle TONSILLECTOMY [...] on File Prior to Visit Medication Sig predniSONE (DELTASONE) 20 mg tablet Take 20 mg by mouth two times a day. FOLIC ACID ORAL Take by mouth two times a day. albuterol HFA (PROVENTIL HFA, VENTOLIN HFA) 90 mcg/actuation inhaler EVERY 4 HOURS NEEDED as needed for Wheezing/SOB ibuprofen (MOTRIN) 600 mg tablet TAKE 1 TABLET BY MOUTH THREE TIMES DAILY NEEDED FOR PAIN OR FEVER benzonatate (TESSALON PERLE) 100 mg capsule THREE TIMES A DAY as needed for cough (Patient not taking: Reported on 07/03/2024) ferrous sulfate (IRON) 325 mg (65 mg iron) tablet Take 1 tablet by mouth every Monday, Monday, and Monday. (Patient not taking: Reported on 09/05/2023) fluticasone (FLONASE) 50 mcg/actuation nasal spray Use 2 Sprays in each nostril once daily. Rinse mouth after use. (Patient not taking: Reported on 09/05/2023) sertraline (ZOLOFT) 25 mg tablet Take 1 tablet by mouth once daily. (Patient not taking: Reported on 09/05/2023) ascorbic acid, vitamin C, (VITAMIN C) 500 mg tablet Take 1 tablet by mouth two times a day. (Patient not taking: Reported on 09/05/2023) Food Supplement, Lactose-Free (ENSURE ACTIVE MUSCLE HEALTH) liqd Take 237 mL by mouth four times daily for 7 days. No current facility-administere d medications on file prior to visit. Social History Social History Tobacco Use Smoking status: Never Smokeless tobacco: Never Vaping Use Vaping status: Never Used Substance Use Topics Alcohol use: Not Currently Drug use: No REVIEW OF SYSTEMS: as above Reviewed relevant PMHx, PSHx, Social Hx, current medications and allergies. Review of Symptoms REVIEW OF SYSTEMS See HPI. EXAM: BP 108/62 (BP Site: Left Arm, BP Position: Sitting, BP Cuff Size: Regular Adult) Pulse 66 Resp 14 Wt 40.8 kg (90 lb) LMP 09/18/2023 (Approximate) SpO2 100% BMI 17.58 kg/m? General Appearance: Well appearing, alert, in no acut (more content not included)... Normal [facility] 07-08-2024 FRANCIE Telephone (4CQ) CAROLA HARDING ([id number]) 1990 F Date Time Provider Department 07/08/24 ZHANGJAMARI 4CQ During your visit today, we recorded the following information about you: Asia Lopez 07/08/2024 11:23 AM Signed PATIENT WAS REFERRED TO HEMATOLOGY BY Hossein ESTRADA. PLEASE ADVISE AND CONTACT PATIENT Althea Matos LPN 07/08/2024 11:52 AM Addendum Schedule appt. With Yaneth first available, not a new pt. Althea Matos LPN FYI pt. Was scheduled for 8 week F/U and was a no show for that appt. ( Did have labs done 10/30/23) Marlyn Estrada APRN.VETERINARY TOXICOLOGIST 07/08/2024 12:00 PM Signed Recent ER visit at [facility] on 07/03 with microcytic anemia, hgb 8.9. not taking PO iron d/t instructions by GI doctor. Iron lab work drawn today and in process. Thank you, Marlyn Estrada APRN.Hermes Hua 07/08/2024 2:28 PM Signed I called and spoke to Carola and scheduled her for 07/11/24 @ 10:00 am, patient confirmed this date, time and location Hermes Slater Pss Allergies As of Date: 07/08/2024 Noted Allergy Reaction AMOXICILLIN 09/29/2011 4 - Hives LACTULOSE 09/29/2011 4 - Hives PERCOCET (OXYCODONE-ACETAMINO PHEN)09/29/2011 14 - Other: See Comments Comments: ABDOMINAL PAIN SUPRAX (CEFIXIME) 09/29/2011 4 - Hives Date Reviewed: 07/08/2024 Reviewed by: Marlyn Estrada APRN.VETERINARY TOXICOLOGIST - Fully Assessed Reason for Visit: Appointment [186] Prescriptions as of 07/08/2024 - azithromycin (ZITHROMAX Z-INGE) 250 mg tablet 2 tablets by mouth first day then 1 tablet the next 4 days - predniSONE (DELTASONE) 20 mg tablet Take 20 mg by mouth two times a day. - FOLIC ACID ORAL Take by mouth two times a day. - albuterol HFA (PROVENTIL HFA, VENTOLIN HFA) 90 mcg/actuation inhaler EVERY 4 HOURS NEEDED as needed for Wheezing/SOB - benzonatate (TESSALON PERLE) 100 mg capsule THREE TIMES A DAY as needed for cough - ferrous sulfate (IRON) 325 mg (65 mg iron) tablet Take 1 tablet by mouth every Monday, Monday, and Monday. - fluticasone (FLONASE) 50 mcg/actuation nasal spray Use 2 Sprays in each nostril once daily. Rinse mouth after use. - sertraline (ZOLOFT) 25 mg tablet Take 1 tablet by mouth once daily. - ascorbic acid, vitamin C, (VITAMIN C) 500 mg tablet Take 1 tablet by mouth two times a day. - ibuprofen (MOTRIN) 600 mg tablet TAKE 1 TABLET BY MOUTH THREE TIMES DAILY NEEDED FOR PAIN OR FEVER - Food Supplement, Lactose-Free (ENSURE ACTIVE MUSCLE HEALTH) liqd Take 237 mL by mouth four times daily for 7 days. Problem List As Of Date 07/08/2024 Noted Resolved First trimester bleeding [O20.9] 09/29/2011 03/19/2012 Depression [F32.A] 09/29/2011 05/18/2017 History of left flank pain [Z87.898] 03/19/2012 11/12/2012 Elevated TSH [R79.89] 05/29/2012 care of habitual aborter in first tri*06/20/2012 11/12/2012 Normal , first [Z34.00] 06/20/2012 11/12/2012 Uterine size date discrepancy, antepartum [O26.*09/06/2012 11/12/2012 depression [F53.0] 12/03/2012 02/01/2016 Underweight [R63.6] 12/25/2012 03/23/2020 Weight loss [R63.4] 12/25/2012 05/18/2017 Decreased appetite [R63.0] 12/25/2012 02/01/2016 Rash [R21] 12/25/2012 02/01/2016 Fatigue [R53.83] 12/25/2012 02/01/2016 Myalgia [M79.10] 12/25/2012 Iron deficiency [E61.1] 03/08/2013 08/27/2019 Short interval between pregnancies complicating* 014 02/01/2016 IUGR (intrauterine growth retardation) in prior*07/02/2013 03/23/2020 Thyroid disorder [E07.9] 07/02/2013 05/18/2017 Supervision of other high-risk (V23.89*09/201305/18/2017 Anemia complicating , third trimester *12/25/2013 08/27/2019 SGA (small for gestational age) [P05.10] 01/08/2014 02/01/2016 History of depression [Z86.59] 05/18/2017 03/23/2020 History of thyroid disorder [Z86.39] 05/18/2017 Strain of unspecified muscle and tendon at ankl*10/13/2017 10/13/2017 Fall on same level from slipping, tripping and *10/13/2017 10/13/2017 Malabsorption due to intolerance, not elsewhere*12/14/2017 08/27/2019 Iron deficiency anemia [D50.9] 12/14/2017 08/27/2019 History of anemia [Z86.2] 08/06/2018 Request for sterilization [Z30.2] 08/27/2019 03/23/2020 Urinary tract infection affecting [O2*08/29/2019 03/23/2020 Hyperthyroidism affecting in second t*10/03/2019 03/23/2020 Anemia during in second trimester [O9*11/06/2019 Thrombocytopenia affecting (HCC) [O99*01/02/2020 03/23/2020 Closed displaced fracture of shaft of right cla*03/14/2022 Rotator cuff impingement syndrome of right shou*03/14/2022 Iron deficiency anemia [D50.9] 07/25/2023 Underweight [R63.6] 11/02/2023 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 [J11.8*11/02/2023 Fatigue [R53.83] 11/02/2023 Encounter Status:Closed by HERMES CASTRO on 07/08/24 Normal [facility] metabolic 2000 panelon 07-08-2024 Albumin [Mass/Vol] 3.8 g/dL Low 3.9-4.[address] [facility] Comment on above: Order Comment: Speci men Type: BLOOD SPECIMENOrdering Facility: [facility] Address: [address] [place] [address] Performed By: #### 2 4323-8, 6-4, 64610-1 ####[facility] LABCLIA [id number] [facility] [address] [place] ALP [Catalytic activity/Vol] 58 U/L Normal 34-123 [facility] Comment on above: Order Comment: Speci men Type: BLOOD SPECIMENOrdering Facility: [facility] Address: [address] [place] [address] Performed By: #### 2 4323-8, 6-4, 76361-2 ####[facility] LABCLIA [id number] [place] [address] [place] ALT [Catalytic activity/Vol] 11 U/L Normal 7-38 [facility] Comment on above: Order Comment: Speci men Type: BLOOD SPECIMENOrdering Facility: [facility] Address: [address] [place] [address] Performed By: #### 2 4323-8, 2275-, 48094-6 ####[facility] LABCLIA [id number] [place] [id number] [place] Anion gap [Moles/Vol] 9 mmol/L Normal 8-15 [facility] Comment on above: Order Comment: Speci men Type: BLOOD SPECIMENOrdering Facility: [facility] Address: [address] [place] [address] Performed By: #### 2 4323-8, 2275-4, 10607-8 ####[facility] LABCLIA [id number] [facility] [address] [address] [place] AST [Catalytic activity/Vol] 17 U/L Normal 13-35 [facility] Comment on above: Order Comment: Speci men Type: BLOOD SPECIMENOrdering Facility: [facility] Address: [address] [place] [address] Performed By: #### 2 4323-8, 6-4, 31594-5 ####[facility] LABCLIA [id number] [address] [address] [place] Bilirubin [Mass/Vol] mg/dL Low 0.2-1.3 [facility] Comment on above: Order Comment: Speci men Type: BLOOD SPECIMENOrdering Facility: [facility] Address: [address] [place], [place] [address] Performed By: #### 2 4323-8, 6-4, 78340-2 ####[facility] LABCLIA [id number] [place] [address] [place] Calcium [Mass/Vol] 8.7 mg/dL Normal 8.5-10.[address] [facility] Comment on above: Order Comment: Speci men Type: BLOOD SPECIMENOrdering Facility: [facility] Address: [address] [place] [address] Performed By: #### 2 4323-8, 6-4, 94894-4 ####[facility] LABCLIA [id number] [place] [address] [place] Chloride [Moles/Vol] 106 mmol/L Normal 98-107 [facility] Comment on above: Order Comment: Speci men Type: BLOOD SPECIMENOrdering Facility: [facility] Address: [address] [place] [address] Performed By: #### 2 4323-8, 6-4, 91883-8 ####[facility] LABCLIA [id number] [place] [id number] [place] CO2 [Moles/Vol] 28 mmol/L Normal 22-30 [facility] Comment on above: Order Comment: Speci men Type: BLOOD SPECIMENOrdering Facility: [facility] Address: [address] [place] [address] Performed By: #### 2 4323-8, 2276-4, 55161-6 ####[facility] LABIA [id number] [place] [id number] [place] Creatinine [Mass/Vol] 0.66 mg/dL Normal 0.58-0.96 [facility] Comment on above: Order Comment: Specrose men Type: BLOOD SPECIMENOrdering Facility: [facility] Address: [address] [place] [address] Performed By: #### 2 4323-8, 6-4, 49760-7 ####[facility] LABIA [id number] [place] [address] [place] Creatinine and Glomerular filtration rate.predicted panel (S/P/Bld) 119 mL/min/1.73m??? Normal >=60 [facility] Comment on above: Order Comment: Ada castañeda Type: BLOOD SPECIMENOrdering Facility: [facility] Address: [address] [place] [address] Result Comment: Nori mated Glomerular Filtration Rate (eGFR) is calculated using the 2020 CKD-EPI creatinine equation. This equation utilizes serum creatinine, sex, and age as parameters. The creatinine assay has traceable calibration to isotope dilution-mass spectrometry. Refer to KDIGO guidelines for clinical interpretation. In patients with unstable renal function, e.g. those with acute kidney injury, the eGFR may not accurately reflect actual GFR. Performed By: #### 2 4323-8, 6-4, 05817-6 ####[facility] LABIA [id number] [place] [id number] [place] Glucose [Mass/Vol] 62 mg/dL Low 74-[address] [facility] Comment on above: Order Comment: Kevoni men Type: BLOOD SPECIMENOrdering Facility: [facility] Address: [address] [place] [address] Result Comment: The [place] Diabetes Association (ADA) provides guidance for cutoff values for fasting glucose and random glucose. The ADA defines fasting as no caloric intake for at least 8 hours. Fasting plasma glucose results between 100 to 125 mg/dL indicate increased risk for diabetes (prediabetes). Fasting plasma glucose results greater than or equal to 126 mg/dL meet the criteria for diagnosis of diabetes. In the absence of unequivocal hyperglycemia, results should be confirmed by repeat testing. In a patient with classic symptoms of hyperglycemia or hyperglycemic crisis, random plasma glucose results greater than or equal to 200 mg/dL meet the criteria for diagnosis of diabetes. Reference: Standards of Medical Care in Diabetes 2016, [place] Diabetes Association. Diabetes Care. 2016.39(Suppl 1). Performed By: #### 2 4323-8, 2275-4, 28294-6 ####[facility] LABCLIA [id number] [place] [address] [place] Potassium [Moles/Vol] 3.6 mmol/L Low 3.7-5.1 [facility] Comment on above: Order Comment: Speci men Type: BLOOD SPECIMENOrdering Facility: [facility] Address: [address] [place] [address] Performed By: #### 2 4323-8, 2275-09, 76525-8 ####[facility] LABIA [id number] [place] [address] [place] Protein [Mass/Vol] 6.1 g/dL Low 6.3-8.[address] [facility] Comment on above: Order Comment: Speci men Type: BLOOD SPECIMENOrdering Facility: [facility] Address: [address] [place], [place] [address] Performed By: #### 2 4323-8, 2275-09, 67050-3 ####[facility] LABIA [id number] [place] [id number] [place] Sodium [Moles/Vol] 143 mmol/L Normal 136-[address] [facility] Comment on above: Order Comment: Speci men Type: BLOOD SPECIMENOrdering Facility: [facility] Address: [address] [place], [place] [address] Performed By: #### 2 4323-8, 2275-09, 76574-7 ####[facility] LABCLIA [id number] [address] [address] [place] Urea nitrogen [Mass/Vol] 11 mg/dL Normal 7-21 [facility] Comment on above: Order Comment: Speci men Type: BLOOD SPECIMENOrdering Facility: [facility] Address: [address] [place] [address] Performed By: #### 2 4323-8, 2275-, 48977-0 ####[facility] LABCLIA [id number] [place] [id number] [place] Ferrit[facility] Ferritin [Mass/Vol] 7.1 ng/mL Low 14.7-205.1 [facility] Comment on above: Order Comment: Speci men Type: BLOOD SPECIMENOrdering Facility: [facility] Address: [address] [place] [address] Performed By: #### 2 4323-8, 6-4, 13685-1 ####[facility] LABIA [id number] [place] [id number] [place] Iron and Iron binding capaci panelon 07-08-2024 Iron [Mass/Vol] 13 ug/dL Low 41-186 [facility] Comment on above: Order Comment: Speci men Type: BLOOD SPECIMENOrdering Facility: [facility] Address: [address] [place] [address] Performed By: #### 2 4323-8, 6-4, 63827-0 ####[facility] LABIA [id number] [place] [id number] [place] Iron binding capacity [Mass/Vol] 367 ug/dL Normal 232-386 [facility] Comment on above: Order Comment: Speci men Type: BLOOD SPECIMENOrdering Facility: [facility] Address: [address] [place] [address] Performed By: #### 2 4323-8, 2275-4, 13851-3 ####[facility] LABCLIA [id number] [place] [id number] [place] Iron/TIBC [Molar ratio] 3.5 % Low 15.0-57.0 C [facility] Comment on above: Order Comment: Speci men Type: BLOOD SPECIMENOrdering Facility: [facility] Address: [address] [place] [address] [place] [address] Performed By: #### 2 4323-8, 2276-4, 48987-4 ####[facility] LABCLIA [id number] [place] [id number] [place] CBC W/Diff, Automatedon 06-13 PATH REV Reviewed Normal [facility] Comment on above: Result Comment: Leuk openia and neutropenia.Microcytic anemia. Clinical correlation necessary. Chidi Beasley M.D. 07/04/24 AMENDED REPORT 07/04/24 1427 PATH REV previously reported as: October Performed By: #### L 501.2450, L503.6620, L501.4020, L500.3400, L100.0100, L500.2500 ####[facility] [address] [facility] [place], [address] 12 Lead EKGon 07-03-2024 12 Lead EKG [facility] [address] [place] [address] 12 Lead EKG 07/03/24 1759 MR#: [id number] Acct: [id number] Name: CAROLA HARDING Rep #: [id number] : 1990 33 From: Jacki Osborne MD Attending Dr: Status: DEP ER Ordering Dr: Breonna Drew DO Date: 07/03/24 Location: ED Sex: F C Admitted: Test Reason : Blood Pressure : */* mmHG Vent. Rate : 68 BPM Atrial Rate : * BPM P-R Int : * ms QRS Dur : 94 ms QT Int : 416 ms P-R-T Axes : * 60 59 degrees QTcB Int : 442 ms Accelerated Junctional rhythm Nonspecific T wave abnormality Abnormal ECG Confirmed by JORDAN LEMON, GINNA ([id number]), art editor ANICETO RUDD ([id number]) on 07/09/2024 7:09:28 AM Referred By: ALEX Confirmed By: GINNA OSBORNE MD 07/09/24 0709 Date Jacki Osborne MD CC: Dr. Breonna Drew, DO; Dr. Jamari Zhang, DO Signed Normal [facility] BNP,B-Type NATRIURETIC PEPTI Alison 07-03-2024 Natriuretic peptide B (Bld) [Mass/Vol] 14.4 pg/mL Normal 0-[address] [facility] Comment on above: Performed By: #### L 501.2450, L503.6620, L501.4020, L500.3400, L100.0100, L500.2500 ####[facility] [address] [place], [address] Basic Metabolic Profile (BMP )on 07-03-2024 BUN/CRE 7.3 RATIO Low 10-[address] [facility] Comment on above: Order Comment: 'TROP ' Serial specimen #1, #2 or #3: 1 Performed By: #### L 501.2450, L503.6620, L501.4020, L500.3400, L100.0100, L500.2500 ####[facility] [address] [place], [address] CA,Total 8.9 mg/dL Normal 8.5-10.[address] [facility] Comment on above: Order Comment: 'TROP ' Serial specimen #1, #2 or #3: 1 Performed By: #### L 501.2450, L503.6620, L501.4020, L500.3400, L100.0100, L500.2500 ####[facility] [address] [place], [address] Chloride [Moles/Vol] 106 mmol/L Normal 98-107 [facility] Comment on above: Order Comment: 'TROP ' Serial specimen #1, #2 or #3: 1 Performed By: #### L 501.2450, L503.6620, L501.4020, L500.3400, L100.0100, L500.2500 ####[facility] [address] [place], [address] CO2 [Moles/Vol] 27.0 mmol/L Normal 21.0-32.[address] [facility] Comment on above: Order Comment: 'TROP ' Serial specimen #1, #2 or #3: 1 Performed By: #### L 501.2450, L503.6620, L501.4020, L500.3400, L100.0100, L500.2500 ####[facility] [address] [place], [address] Creatinine [Mass/Vol] 0.68 mg/dL Normal 0.55-1.02 [facility] Comment on above: Order Comment: 'TROP ' Serial specimen #1, #2 or #3: 1 Result Comment: The validity of the calculated GFR GFRAA in patients over 70 years has not been determined. Clinical correlation is essential. Performed By: #### L 501.2450, L503.6620, L501.4020, L500.3400, L100.0100, L500.2500 ####[facility] [address] [place], [address] ECRCL 76.72 ml/min Normal [facility] Comment on above: Order Comment: 'TROP ' Serial specimen #1, #2 or #3: 1 Performed By: #### L 501.2450, L503.6620, L501.4020, L500.3400, L100.0100, L500.2500 ####[facility] [address] [place], [address] EST GFR - AA 127 mL/min Normal >[address] [facility] Comment on above: Order Comment: 'TROP ' Serial specimen #1, #2 or #3: 1 Result Comment: Afri can Peruvian GFR Calc Performed By: #### L 501.2450, L503.6620, L501.4020, L500.3400, L100.0100, L500.2500 ####[facility] [address] [place], [place], [id number] GAP 7 Normal 5-[address] [facility] Comment on above: Order Comment: 'TROP ' Serial specimen #1, #2 or #3: 1 Performed By: #### L 501.2450, L503.6620, L501.4020, L500.3400, L100.0100, L500.2500 ####[facility] [address] [place], [place], [address] GFR/1.73 sq M.predicted among non-blacks MDRD (S/P/Bld) [Vol rate/Area] 105 mL/min/{1.73_m2} Normal >[address] [facility] Comment on above: Order Comment: 'TROP ' Serial specimen #1, #2 or #3: 1 Result Comment: Non- GFR Calc Performed By: #### L 501.2450, L503.6620, L501.4020, L500.3400, L100.0100, L500.2500 ####[facility] [address] [place], [place], [id number] Glucose [Mass/Vol] 100 mg/dL Normal 74-106 [facility] Comment on above: Order Comment: 'TROP ' Serial specimen #1, #2 or #3: 1 Result Comment: Fast ing Glucose result from 100 to 125 mg/dL suggests IMPAIRED HOMEOSTASIS per A.D.A. criteria. Performed By: #### L 501.2450, L503.6620, L501.4020, L500.3400, L100.0100, L500.2500 ####[facility] [address] [place], [place], [address] Potassium [Moles/Vol] 3.6 mmol/L Normal 3.5-5.1 [facility] Comment on above: Order Comment: 'TROP ' Serial specimen #1, #2 or #3: 1 Performed By: #### L 501.2450, L503.6620, L501.4020, L500.3400, L100.0100, L500.2500 ####[facility] [address] [place], [place], [address] Sodium [Moles/Vol] 140 mmol/L Normal 136-145 [facility] Comment on above: Order Comment: 'TROP ' Serial specimen #1, #2 or #3: 1 Performed By: #### L 501.2450, L503.6620, L501.4020, L500.3400, L100.0100, L500.2500 ####[facility] [address] [place], [place], [address] Urea nitrogen [Mass/Vol] 5 mg/dL Low 7-[address] [facility] Comment on above: Order Comment: 'TROP ' Serial specimen #1, #2 or #3: 1 Performed By: #### L 501.2450, L503.6620, L501.4020, L500.3400, L100.0100, L500.2500 ####[facility] [address] [place], [place], [address] CNOVon 07-03-2024 CNOV Office Visit (UCWSTR) CAROLA HARDING ([id number]) 1990 F Date Time Provider Department 07/03/24 2:00 PM JOSEMANUEL ROMERO [facility] During your visit today, we recorded the following information about you: Temperature Pulse Respiration Blood pressure 98.3 degrees 84/minute 16/minute 90/60 Weight 41.9 kg Josemanuel Romero PA-C 07/03/2024 2:04 PM Signed This note was created using [employer]. Celine Harding is a 33 year old female. Patient is a 33-year-old female who complains of sore throat and a headache that she has been experiencing for the past 1 day. Patient also describes body aches. Patient states that [facility] she also developed generalized abdominal pain and nausea. Patient has not experienced episodes of vomiting to this point. Patient denies diarrhea and states that she is not . Patient has no history of GERD, hiatal hernia, gallbladder disease, irritable bowel syndrome or other GI conditions. Cough Associated symptoms include sore throat. Review of Systems HENT: Positive for sore throat. Respiratory: Positive for cough. Gastrointestinal: Positive for abdominal pain and nausea. All other systems reviewed and are negative. Objective BP 90/60 Pulse 84 Temp 36.8 ?C (98.3 ?F) Resp 16 Wt 41.9 kg (92 lb 6 oz) LMP 09/18/2023 (Approximate) SpO2 97% BMI 18.04 kg/m? Physical Exam Vitals and nursing note reviewed. Constitutional: Appearance: Normal appearance. She is normal weight. HENT: Head: Normocephalic and atraumatic. Right Ear: Tympanic membrane, ear canal and external ear normal. Left Ear: Tympanic membrane, ear canal and external ear normal. Nose: Nose normal. Mouth/Throat: Mouth: Mucous membranes are moist. Pharynx: Oropharynx is clear. Eyes: Extraocular Movements: Extraocular movements intact. Conjunctiva/sclera: Conjunctivae normal. Pupils: Pupils are equal, round, and reactive to light. Cardiovascular: Rate and Rhythm: Normal rate and regular rhythm. Pulses: Normal pulses. Heart sounds: Normal heart sounds. Pulmonary: Effort: Pulmonary effort is normal. Breath sounds: Normal breath sounds. Abdominal: General: Abdomen is flat. Palpations: Abdomen is soft. Musculoskeletal: Cervical back: Normal range of motion and neck supple. Skin: General: Skin is warm and dry. Capillary Refill: Capillary refill takes less than 2 seconds. Neurological: General: No focal deficit present. Mental Status: She is alert and oriented to person, place, and time. Psychiatric: Mood and Affect: Mood normal. Behavior: Behavior normal. Thought Content: Thought content normal. Judgment: Judgment normal. Assessment and Plan Physical exam findings as noted above. Rapid strep PCR is negative. Patient was provided with a prescription for Zofran 4 mg ODT, however she was very clearly instructed to report to an emergency department if she notes any acute worsening of her symptoms as additional laboratory testing as well as CT scan imaging cannot be performed at this [facility] care facility. Supportive care instructions were discussed and the patient verbalizes good understanding of same. CLINICAL IMPRESSION: Abdominal Pain; Acute Gastritis ASSESSMENT/PLAN: 1. Sore throat - ICD9: 462, ICD10: J02.9 (primary diagnosis) - STREP A MOLECULAR (POC) 2. Generalized abdominal pain - ICD9: 789.07, ICD10: R10.84 3. Acute gastroenteritis - ICD9: 558.9, ICD10: K52.9 - ONDANSETRON 4 MG DISINTEGRATING TABLET Josemanuel Romero PA-C Allergies As of Date: 07/03/2024 Noted Allergy Reaction AMOXICILLIN 09/29/2011 4 - Hives LACTULOSE 09/29/2011 4 - Hives PERCOCET (OXYCODONE-ACETAMINO PHEN)09/29/2011 14 - Other: See Comments Comments: ABDOMINAL PAIN SUPRAX (CEFIXIME) 09/29/2011 4 - Hives Date Reviewed: 07/03/2024 Reviewed by: Joan Greenwood MA - Fully Assessed Reason for Visit: Cough [28] Cmt: sore throat, headache, bodyaches x 1 day Primary Visit Diagnosis:Sore throat [J02.9] Other Visit Diagnoses:Generalize d abdominal pain [R10.84] Acute gastroenteritis [K52.9] Order(s):STREP A MOLECULAR (POC) [5181153] Order #: [id number]. #:[id number] ondansetron orally disintegrating (ZOFRAN ODT) 4 mg disintegrating tabletTake 1 tablet by mouth every 8 hours as needed for nausea/vomiting for up to 2 days.Disp: 6 tabletRfl: 0 Prescriptions as of 07/03/2024 - ondansetron orally disintegrating (ZOFRAN ODT) 4 mg disintegrating tablet Take 1 tablet by mouth every 8 hours as needed for nausea/vomiting for up to 2 days. - predniSONE (DELTASONE) 20 mg tablet Take 20 mg by mouth two times a day. - FOLIC ACID ORAL Take by mouth two times a day. - albuterol HFA (PROVENTIL HFA, VENTOLIN HFA) 90 mcg/actuation inhaler EVERY 4 HOURS NEEDED as needed for Wheezing/SOB - benzonatate (TESSALON PERLE) 100 mg (more content not included)... Normal [facility] Chest PA and Lateralon 07-03 Chest PA and Lateral [facility] Imaging Services [address] [place], [place] [id number] Chest PA and Lateral MR#: [id number] Acct: [id number] Name: CAROLA HARDING Rep #: [id number] : 1990 F 33 From: Sherif Abdullahi MD PCP: Dr. Jamari Zhang DO Status: REG ER Study: Chest PA and Lateral Date of Exam: 07/03/24 Exam# [id number] Ordering Dr: Breonna Drew DO [id number] STUDY: X-RAY CHEST REASON FOR EXAM: Female, 33 years old. COUGH, FEVER TECHNIQUE: PA and lateral COMPARISON: April 02, 2024 FINDINGS: The lungs are clear and expanded. There is no demonstrated pleural abnormality. Normal size heart. Normal mediastinum and arpit. Normal visualized pulmonary arteries. Normal visualized aortic arch and descending thoracic aorta. Normal visualized thoracic spine. Normal visualized ribs, left clavicle, and shoulders. Status post ORIF right clavicular fracture There is no demonstrated abnormality of the visualized soft tissue structures of the upper abdomen. RAD/Chest PA and Lateral IMPRESSION: No acute cardiopulmonary pathology. Electronically Signed: Sherif Abdullahi MD at 18:40 EST Reading Location ID and State: [address] [place] [address] Tel , Service support , CC: Dr. Breonna Drew DO; Dr. Jamari Zhang DO Legal Executive: Signed Normal [facility] Emergency Department Summary on 07-03-2024 Emergency Department Summary [facility] Medical Records Department [address] [place] [address] Emergency Department Summary 07/03/24 MR#: [id number] Acct: [id number] Name: CAROLA HARDING Rep #: [id number] : 1990 33 From: Breonna Drew DO PCP: Dr. Jamari Zhang DO Status:DEP ER Location: ED HPI History of Present Illness Chief Complaint: Cold Sx Informant: patient and spouse/S.O. Narrative Narrative: Patient is a 33-year-old female with history of cardiomyopathy (questionable postviral versus due to malnutrition), autoimmune gastritis inflammatory bowel disease is not compliant with her medications presenting with 2 days of chills, headache, cough and generalized malaise. Patient states he started with a cough and a sore throat yesterday. Today she had significant myalgias. Significant other states had a fever of 101.9 that with delta nine 9.8. Patient does not think she took anything that her significant other think she was taking some Tylenol. She notes that she has chest pain with coughing and had an episode of vomiting with coughing today. She has a lot of abdominal pain every time she coughs. No sick contacts at home. She denies any urinary symptoms. Is complaining of all of her body aches and a frontal headache. Came in for further evaluation especially with her history. [facility] Medical History Autoimmune gastritis Anxiety and depression Chronic anemia Myocarditis Painful orthopaedic hardware Clavicle fracture History of thyroid disorder Home Medications ???Medication ???Instructions ???Recorded ???Last Taken ???Type ascorbic acid (vitamin C) 500 mg 500 mg PO BID supplement 07/13/23 07/10/23 History tablet (Vitamin C) guaifenesin 1 tab PO Q6H PRN cold symptoms 07/13/23 07/12/23 History sertraline 25 mg tablet 25 mg PO DAILY 07/13/23 07/10/23 History ondansetron 4 mg disintegrating 4 mg PO Q6H PRN nausea and 08/17/23 Unknown Rx tablet vomiting #12 tabs mecobalamin (vitamin B12) 1,000 1,000 mcg PO DAILY 12/22/23 Unknown History mcg chewable tablet prednisone 20 mg tablet 40 mg PO BID 12/22/23 Unknown History pantoprazole 40 mg tablet,delayed 40 mg PO BID #60 tabs 02/21/24 Unknown Rx release albuterol sulfate 90 mcg/actuation 2 puff inhalation Q4H PRN PRN 04/02/24 Unknown Rx aerosol inhaler (Ventolin HFA) Wheezing/SOB #1 device benzonatate 100 mg capsule 200 mg (2 x 100 mg) PO TID PRN 04/02/24 Unknown Rx cough 10 days #60 caps Allergy/AdvReac Type Severity Reaction Status Date / Time amoxicillin (Amoxicillin) Allergy Hives Verified 04/01/24 21:12 cefixime (From Suprax) Allergy Hives Verified 04/01/24 21:12 lactulose Allergy Hives Verified 04/01/24 21:12 oxycodone HCl (From Percocet) AdvReac Abd Verified 04/01/24 21:12 cramps/diarrhea Family History Mother Diabetes Heart disease Hypertension CVA (cerebral vascular accident) HLD (hyperlipidemia) Father Osteoarthritis Surgical History S/P ORIF (open reduction internal fixation) fracture History of tonsillectomy and adenoidectomy Hx of tympanostomy tubes Hx of tubal ligation Social History household members: spouse Smoking Status: Never smoker alcohol intake: never substance use type: does not use caffeine: Yes Type: carbonated beverages ROS ROS ED Constitutional Constitutional ED: Reports chills, fever(s) and weight loss Eyes Eyes: Denies change in vision ENT ENT ED: Reports sore throat; Denies ear pain Cardiovascular Cardiovascular: Reports chest pain Respiratory/Chest Respiratory/Chest: Reports cough and dyspnea; Denies sputum Gastrointestinal Gastrointestinal: Reports abdominal pain, nausea and vomiting; Denies diarrhea Musculoskeletal Musculoskeletal: Reports myalgias Integumentary Denies rash Neurologic Neurologic: Reports headache(s) and weakness EXAM Physical Exam Const Vital Signs: 07/03/24 15:13 07/03/24 15:15 07/03/24 17:12 Temperature 97.8 F Temperature Source Temporal Pulse Rate 89 77 Respiratory Rate 16 18 Respiratory Effort Normal Non-Labored Blood Pressure 98/64 90/63 Blood Pressure Mean 75 72 Pulse Ox 98 100 Oxygen Delivery Method Room Air Room Air 07/03/24 19:00 Temperature Temperature Source Pulse Rate 76 Respiratory Rate 16 Respiratory Effort Blood Pressure 100/66 Blood Pressure Mean 77 Pulse Ox 97 Oxygen Delivery Method Room Air Positive cachectic General Appearance ED: cachectic and NAD Nutritional Appearance: cachectic HEENT Reports moist mucous membranes HEENT Narrative: Bilateral cerum (more content not included)... Normal [facility] L501.4020on 07-03-2024 TROPONIN-I HS 19 pg/mL Normal 3.0-54.[address] [facility] Comment on above: Order Comment: 'TROP ' Serial specimen #1, #2 or #3: 1 Result Comment: Plea se Note: New Test Units and Gender Specific Reference Ranges. For more information see Policy Stat Procedure Carson High Sensitivity Troponin (TNIH) and attachments. Performed By: #### L 501.2450, L503.6620, L501.4020, L500.3400, L100.0100, L500.2500 ####[facility] [address] [place], [place], [address] Lipaseon 07-03-2024 Lipase [Catalytic activity/Vol] 30 U/L Normal 13-[address] [facility] Comment on above: Order Comment: 'TROP ' Serial specimen #1, #2 or #3: 1 Result Comment: Plea se note: LIPASE revised reference range effective 22. New Lipase methodology. Expected to produce lower values than the previous assay method. NEW Reference Range: 13 - 75 U/L Performed By: #### L 501.2450, L503.6620, L501.4020, L500.3400, L100.0100, L500.2500 ####[facility] [address] [place], [address] Liver Profileon 07-03-2024 Albumin [Mass/Vol] 3.4 g/dL Normal 3.2-5.0 [facility] Comment on above: Order Comment: 'TROP ' Serial specimen #1, #2 or #3: 1 Performed By: #### L 501.2450, L503.6620, L501.4020, L500.3400, L100.0100, L500.2500 ####[facility] [address] [place], [address] ALK P 63 U/L Normal 45-[address] [facility] Comment on above: Order Comment: 'TROP ' Serial specimen #1, #2 or #3: 1 Performed By: #### L 501.2450, L503.6620, L501.4020, L500.3400, L100.0100, L500.2500 ####[facility] [address] [place], [address] ALT [Catalytic activity/Vol] 16 U/L Normal 13-[address] [facility] Comment on above: Order Comment: 'TROP ' Serial specimen #1, #2 or #3: 1 Performed By: #### L 501.2450, L503.6620, L501.4020, L500.3400, L100.0100, L500.2500 ####[facility] [address] [place], [address] AST [Catalytic activity/Vol] 15 U/L Normal 15-[address] [facility] Comment on above: Order Comment: 'TROP ' Serial specimen #1, #2 or #3: 1 Performed By: #### L 501.2450, L503.6620, L501.4020, L500.3400, L100.0100, L500.2500 ####[facility] [address] [place], [address] Bilirubin [Mass/Vol] 0.20 mg/dL Normal 0.20-1.00 [facility] Comment on above: Order Comment: 'TROP ' Serial specimen #1, #2 or #3: 1 Result Comment: For patients on eltrombopag therapy, use of Dimension Carson TBIL is not recommended. Performed By: #### L 501.2450, L503.6620, L501.4020, L500.3400, L100.0100, L500.2500 ####[facility] [address] [place], [address] Bilirubin.direct [Mass/Vol] 0.08 mg/dL Normal 0.00-0.[address] [facility] Comment on above: Order Comment: 'TROP ' Serial specimen #1, #2 or #3: 1 Performed By: #### L 501.2450, L503.6620, L501.4020, L500.3400, L100.0100, L500.2500 ####[facility] [address] [place], [address] Globulin (S) [Mass/Vol] 3.3 g/dL Normal 2.2-4.2 [facility] Comment on above: Order Comment: 'TROP ' Serial specimen #1, #2 or #3: 1 Performed By: #### L 501.2450, L503.6620, L501.4020, L500.3400, L100.0100, L500.2500 ####[facility] [address] [place], [address] T PROT 6.7 g/dL Normal 6.4-8.[address] [facility] Comment on above: Order Comment: 'TROP ' Serial specimen #1, #2 or #3: 1 Performed By: #### L 501.2450, L503.6620, L501.4020, L500.3400, L100.0100, L500.2500 ####[facility] [address] [place], [address] M100.677on 07-03-2024 M100.677 Negative Normal [facility] Comment on above: Performed By: #### M 100.677, M100.678 #### [facility] Laboratory [address] [place], [place], [address] M100.678on 07-03-2024 M100.678 Pending SARS-CoV-2 (COVID 19) Negative INFLUENZA A Negative INFLUENZA B Negative RSV PCR Negative Normal [facility] Comment on above: Performed By: #### M 100.677, M100.678 #### [facility] Laboratory [address] [place], [place], [id number] STREP A MOLECULAR (POC)on Procedural Control Valid [facility] Strep A (POCT) Negative Negative [facility] CNOVon 04-03-2024 CNOV Office Visit (FAMPWS) CAROLA HARDING ([id number]) 1990 F Date Time Provider Department 04/03/24 1:00 PM PINA WILSON FAMPWS During your visit today, we recorded the following information about you: Temperature Pulse Respiration Blood pressure 97.8 degrees 58/minute 16/minute 110/70 Weight 44 kg Pina Wilson PA-C 04/03/2024 1:37 PM Signed Chief Complaint Patient presents with: ER F/U HPI Carola Harding is a 33 year old female who presents here today for ER Follow Up.. Patient woke up on 04/01/2024 with Sore throat. Throughout the day she developed cough, congestion, body chills. By evening she was feeling worse so she went to ER. CXR negative. ER did viral panel. Was able to get results which was neg for flu,covid and rsv. Some have had mild URI symptoms Past medical history, appointments, medications, allergies reviewed. Previous Medical History PAST MEDICAL HISTORY Diagnosis Date Anemia complicating 12/25/2013 Chlamydia 11/2010 Dysthymic disorder Depression (non-psychotic) Hypothyroidism Iron deficiency depression 12/03/2012 Strain of unspecified muscle and tendon at ankle and foot level, right foot, initial encounter 10/13/2017 Previous Surgical History PAST SURGICAL HISTORY Procedure Laterality Date COLONOSCOPY SCREENING 08/21/2023 EGD W/O BRSH SPEC VARICIES INJ 08/21/2023 PAST SURGICAL HISTORY OF 05/20/2014 Right open reduction internal fixation clavicle TONSILLECTOMY [...] on File Prior to Visit Medication Sig predniSONE (DELTASONE) 20 mg tablet Take 20 mg by mouth two times a day. FOLIC ACID ORAL Take by mouth two times a day. albuterol HFA (PROVENTIL HFA, VENTOLIN HFA) 90 mcg/actuation inhaler EVERY 4 HOURS NEEDED as needed for Wheezing/SOB benzonatate (TESSALON PERLE) 100 mg capsule THREE TIMES A DAY as needed for cough ibuprofen (MOTRIN) 600 mg tablet TAKE 1 TABLET BY MOUTH THREE TIMES DAILY NEEDED FOR PAIN OR FEVER ferrous sulfate (IRON) 325 mg (65 mg iron) tablet Take 1 tablet by mouth every Monday, Monday, and Monday. (Patient not taking: Reported on 09/05/2023) fluticasone (FLONASE) 50 mcg/actuation nasal spray Use 2 Sprays in each nostril once daily. Rinse mouth after use. (Patient not taking: Reported on 09/05/2023) sertraline (ZOLOFT) 25 mg tablet Take 1 tablet by mouth once daily. (Patient not taking: Reported on 09/05/2023) ascorbic acid, vitamin C, (VITAMIN C) 500 mg tablet Take 1 tablet by mouth two times a day. (Patient not taking: Reported on 09/05/2023) Food Supplement, Lactose-Free (ENSURE ACTIVE MUSCLE HEALTH) liqd Take 237 mL by mouth four times daily for 7 days. No current facility-administere d medications on file prior to visit. Social History Social History Tobacco Use Smoking status: Never Smokeless tobacco: Never Vaping Use Vaping status: Never Used Substance Use Topics Alcohol use: Not Currently Drug use: No Review of Symptoms REVIEW OF SYSTEMS See hpi EXAM: BP 110/70 (BP Site: Left Arm, BP Position: Sitting, BP Cuff Size: Regular Adult) Pulse (!) 58 Temp 36.6 ?C (97.8 ?F) Resp 16 Wt 44 kg (97 lb) LMP 09/18/2023 (Approximate) SpO2 99% BMI 18.94 kg/m? General Appearance: Well appearing, alert, in no acute distress, well-hydrated, well nourished.. Ears: External ears normal, canals clear. Nose/Sinuses: Nares normal, septum midline, mucosa normal, no drainage or sinus tenderness. Oropharynx: Lips, mucosa, and tongue normal, teeth and gums normal, oropharynx normal. Neck: Supple, no adenopathy; thyroid symmetric, normal size, no bruits. Lungs: Lungs clear to auscultation. No wheezing, rhonchi, rales.. Heart: RRR without murmur, gallop, or rubs. No ectopy. Health Maintenance List Cervical Cancer Screening due on 08/06/2023 Influenza Vaccine(1) due on 02/11/2024 Covid-19 Vaccine( season) Never done Depression Screening due on 10/29/2024 Anxiety Screening due on 10/29/2024 DTaP,Tdap,Td Vaccine(11 - Td or Tdap) due on 11/27/2029 Hepatitis B Vaccine Completed HPV Vaccine Completed Hepatitis C Screening Completed HIV Screening Completed Data reviewed ASSESSMENT/P (more content not included)... Normal [facility] Chest PA and Lateralon 04-02 Chest PA and Lateral [facility] Imaging Services [address] [place], [place] [id number] Chest PA and Lateral MR#: [id number] Acct: [id number] Name: CAROLA HARDING Rep #: [id number] : 1990 F 33 From: Krishna Barrios MD PCP: Dr. Jamari Zhang DO Status: [facility] ER Study: Chest PA and Lateral Date of Exam: 04/02/24 Exam# [id number] Ordering Dr: Yahir العراقي DO [id number] INDICATION: cough EXAMINATION/TECHNIQU E: X-RAY - XR Chest 2 Views COMPARISON: August 17, 2023. ____ FINDINGS: LINES/DEVICES: None. LUNGS: No consolidation, edema or effusion. No pneumothorax. MEDIASTINUM AND CARDIOVASCULAR STRUCTURES: Cardiac silhouette not enlarged. BONES AND SOFT TISSUES: Prior right mid clavicle internal fixation.. Dextrocurvature of the thoracic spine. RAD/Chest PA and Lateral IMPRESSION: No radiographic evidence of acute cardiopulmonary disease. Electronically Signed: Krishna Barrios MD at 1:06 EDT , CC: Dr. Jamari Zhang DO; Yahir العراقي DO Legal Executive: Signed Normal [facility] Emergency Department Summary on 04-02-2024 Emergency Department Summary [facility] Medical Records Department [address] [place] [address] Emergency Department Summary 04/02/24 MR#: [id number] Acct: [id number] Name: CAROLA HARDING Rep #: [id number] : 1990 33 From: Yahir العراقي DO PCP: Dr. Jamari Zhang DO Status:[facility] ER Location: ED HPI History of Present Illness Chief Complaint: Cold Sx Informant: patient and friend Narrative Narrative: Patient is a 33-year-old female with past medical history of anxiety and depression as well as autoimmune gastritis. She states she has had 1 day of generalized fatigue and headache and mild congestion and cough. She states she has multiple school-aged children but states none them appear to be very sick. She states that few years ago she contracted influenza and ended up with myocarditis. She is concerned that her symptoms could be related to influenza once again which could lead to potential hospitalization and therefore she presents for evaluation [facility] Medical History Autoimmune gastritis Anxiety and depression Chronic anemia Myocarditis Painful orthopaedic hardware Clavicle fracture History of thyroid disorder Home Medications ???Medication ???Instructions ???Recorded ???Last Taken ???Type ascorbic acid (vitamin C) 500 mg 500 mg PO BID supplement 07/13/23 07/10/23 History tablet (Vitamin C) guaifenesin 1 tab PO Q6H PRN cold symptoms 07/13/23 07/12/23 History sertraline 25 mg tablet 25 mg PO DAILY 07/13/23 07/10/23 History ondansetron 4 mg disintegrating 4 mg PO Q6H PRN nausea and 08/17/23 Unknown Rx tablet vomiting #12 tabs mecobalamin (vitamin B12) 1,000 1,000 mcg PO DAILY 12/22/23 Unknown History mcg chewable tablet prednisone 20 mg tablet 40 mg PO BID 12/22/23 Unknown History pantoprazole 40 mg tablet,delayed 40 mg PO BID #60 tabs 02/21/24 Unknown Rx release albuterol sulfate 90 mcg/actuation 2 puff inhalation Q4H PRN PRN 04/02/24 Unknown Rx aerosol inhaler (Ventolin HFA) Wheezing/SOB #1 device benzonatate 100 mg capsule 200 mg (2 x 100 mg) PO TID PRN 04/02/24 Unknown Rx cough 10 days #60 caps Allergy/AdvReac Type Severity Reaction Status Date / Time amoxicillin (Amoxicillin) Allergy Hives Verified 04/01/24 21:12 cefixime (From Suprax) Allergy Hives Verified 04/01/24 21:12 lactulose Allergy Hives Verified 04/01/24 21:12 oxycodone HCl (From Percocet) AdvReac Abd Verified 04/01/24 21:12 cramps/diarrhea Family History Mother Diabetes Heart disease Hypertension CVA (cerebral vascular accident) HLD (hyperlipidemia) Father Osteoarthritis Surgical History S/P ORIF (open reduction internal fixation) fracture History of tonsillectomy and adenoidectomy Hx of tympanostomy tubes Hx of tubal ligation Social History household members: spouse Smoking Status: Never smoker alcohol intake: never substance use type: does not use caffeine: Yes Type: carbonated beverages ROS ROS ED Constitutional Constitutional ED: Reports chills, fever(s) and subjective Eyes Eyes: Denies change in vision ENT ENT ED: Reports rhinorrhea and sore throat Cardiovascular Cardiovascular: Denies chest pain Respiratory/Chest Respiratory/Chest: Reports cough; Denies dyspnea Gastrointestinal Gastrointestinal: Reports nausea; Denies abdominal pain, diarrhea or vomiting Genitourinary Genitourinary ED: Denies dysuria Musculoskeletal Musculoskeletal: Reports myalgias Integumentary Denies rash Neurologic Neurologic: Reports headache(s) Hematologic/Lymphati c Hematologic/Lymphati c: Denies easy bleeding or easy bruising Allergic/Immunologic Allergic/Immunologic ED: Denies mouth swelling or tongue swelling EXAM Physical Exam Const Vital Signs: 04/01/24 21:09 04/01/24 23:11 Temperature 99.7 F H Temperature Source Oral Pulse Rate 99 Respiratory Rate 18 Respiratory Effort Normal Respiratory Pattern Normal Blood Pressure 109/67 Blood Pressure Mean 81 Pulse Ox 100 Oxygen Delivery Method Room Air Positive well nourished and well developed General Appearance ED: well developed; Negative for pallor HEENT HEENT Narrative: Bilateral TMs are retracted but show no secondary changes to suggest infection Nasal mucosa is hyperemic and boggy There is cobblestoning noted in posterior pharynx consistent with sinus drainage without airway edema or compromise No secondary findings in the posterior pharynx to suggest infection Eyes PERRL and EOMs intact bilaterally General Eye ED: Negative for scleral icterus Neck supple Neck Narrative: No nuchal ri (more content not included)... Normal [facility] M100.678on 04-02-2024 M100.678 Pending SARS-CoV-2 (COVID 19) Negative INFLUENZA A Negative INFLUENZA B Negative RSV PCR Negative Normal [facility] Comment on above: Performed By: #### M 100.678 #### [facility] Laboratory [address] [place], [place], [id number] Anti-Parietal Cell AB, QNon 02-27-2024 ANTIPARIET CELL 143.0 Units High 0.0-20.[address] [facility] Comment on above: Result Comment: Nega tive 0.0 - 20.0 Equivocal 20.1 - 24.9 Positive >24.9 Parietal Cell Antibodies are found in 90% of patients with pernicious anemia and 30% of first degree relatives with pernicious anemia. Performed By: #### L 100.9950, L100.0100, L503.6150, L3410.1000, L506.0250, L503.6550, L3400.8000, L503.6075, L3410.0900 ####[facility] [address] [place], [address] Intrinsic Factor Abon 2023 INTRINS FACT AB 1.0 AU/mL Normal 0.0-1.[address] [facility] Comment on above: Result Comment: Perf ormed at: - [facility] [id number] Email Marketer: Rodney Quezada PhD, Phone: [phone] Performed at: [facility] [id number] Email Marketer: Victorino Erazo MD, Phone: [phone] Performed By: #### L 100.9950, L100.0100, L503.6150, L3410.1000, L506.0250, L503.6550, L3400.8000, L503.6075, L3410.0900 ####[facility] [address] [place], [address] Quantiferon TB-Gold+on 02-26 QFT MITOGEN JULIANO > 10.[address] . [facility] [facility] Comment on above: Performed By: #### L 100.9950, L100.0100, L503.6150, L3410.1000, L506.0250, L503.6550, L3400.8000, L503.6075, L3410.0900 ####[facility] [address] [place], [address] QFT NIL VALUE 0.13 IU/mL Normal . [facility] Comment on above: Performed By: #### L 100.9950, L100.0100, L503.6150, L3410.1000, L506.0250, L503.6550, L3400.8000, L503.6075, L3410.0900 ####[facility] [address] [place], [address] QFT TB GOLD+ Comment Normal . [facility] Comment on above: Result Comment: Oseas tiFERON-TB Gold Plus is a qualitative indirect test for M tuberculosis infection (including disease) and is intended for use in conjunction with risk assessment, radiography, and other medical and diagnostic evaluations. The QuantiFERON-TB Gold Plus result is determined by subtracting the Nil value from either TB antigen (Ag) value. The Mitogen tube serves as a control for the test. Performed By: #### L 100.9950, L100.0100, L503.6150, L3410.1000, L506.0250, L503.6550, L3400.8000, L503.6075, L3410.0900 ####[facility] [address] [place], [address] QFT TB POS CRIT Negative Normal Negative [facility] Comment on above: Result Comment: No r esponse to M tuberculosis antigens detected. Infection with M tuberculosis is unlikely, but high risk individuals should be considered for additional testing (ATS/IDSA/CDC Clinical Practice Guidelines, 2017). The reference range is an Antigen minus Nil result of <0.35 IU/mL. The specimen received for QuantiFERON testing was incubated by the ordering institution. Specific procedures outlined in our Directory of Services and in the package insert for the QuantiFERON Gold (In Tube) test must be followed to enable for proper stimulation of cells for the production of interferon gamma. Chemiluminescence immunoassay methodology Performed By: #### L 100.9950, L100.0100, L503.6150, L3410.1000, L506.0250, L503.6550, L3400.8000, L503.6075, L3410.0900 ####[facility] [address] [place], [address] QFT TB1+ AG JULIANO 0.08 IU/mL Normal . [facility] Comment on above: Performed By: #### L 100.9950, L100.0100, L503.6150, L3410.1000, L506.0250, L503.6550, L3400.8000, L503.6075, L3410.0900 ####[facility] [address] [place], [address] QFT TB2+ AG JULIANO 0.24 IU/mL Normal . [facility] Comment on above: Performed By: #### L 100.9950, L100.0100, L503.6150, L3410.1000, L506.0250, L503.6550, L3400.8000, L503.6075, L3410.0900 ####[facility] [address] [place], [address] CBC W/Diff, Automatedon 02-10 Absolute Lymph 1.44 X10 3/uL Normal 0.83-4.[address] [facility] Comment on above: Performed By: #### L 100.9950, L100.0100, L503.6150, L3410.1000, L506.0250, L503.6550, L3400.8000, L503.6075, L3410.0900 #### [facility] [address] [place], [address] Absolute Neut 3.0 X10 3/uL Normal 2.0-7.[address] [facility] Comment on above: Performed By: #### L 100.9950, L100.0100, L503.6150, L3410.1000, L506.0250, L503.6550, L3400.8000, L503.6075, L3410.0900 #### [facility] [address] [place], [address] Basophils/100 WBC (Bld) 0.4 % Normal 0-1 [facility] Comment on above: Performed By: #### L 100.9950, L100.0100, L503.6150, L3410.1000, L506.0250, L503.6550, L3400.8000, L503.6075, L3410.0900 #### [facility] [address] [place], [address] Eosinophils/100 WBC (Bld) 1.8 % Normal 0-[address] [facility] Comment on above: Performed By: #### L 100.9950, L100.0100, L503.6150, L3410.1000, L506.0250, L503.6550, L3400.8000, L503.6075, L3410.0900 #### [facility] [address] [place], [address] Erythrocyte distribution width (RBC) [Ratio] 11.5 % Low 11.6-14.[address] [facility] Comment on above: Performed By: #### L 100.9950, L100.0100, L503.6150, L3410.1000, L506.0250, L503.6550, L3400.8000, L503.6075, L3410.0900 #### [facility] [address] [place], [address] Hematocrit (Bld) [Volume fraction] 37.9 % Normal 37-[address] [facility] Comment on above: Performed By: #### L 100.9950, L100.0100, L503.6150, L3410.1000, L506.0250, L503.6550, L3400.8000, L503.6075, L3410.0900 #### [facility] [address] [place], [address] Hemoglobin (Bld) [Mass/Vol] 12.0 g/dL Normal 12.0-15.[address] [facility] Comment on above: Performed By: #### L 100.9950, L100.0100, L503.6150, L3410.1000, L506.0250, L503.6550, L3400.8000, L503.6075, L3410.0900 #### [facility] [address] [place], [address] IG% 0.200 Normal 0.0-0.[address] [facility] Comment on above: Result Comment: IG% - Immature Granulocytes (promyelocytes, myelocytes and metamyelocytes) > 1% indicates that a LEFT SHIFT is Present. Performed By: #### L 100.9950, L100.0100, L503.6150, L3410.1000, L506.0250, L503.6550, L3400.8000, L503.6075, L3410.0900 #### [facility] [address] [place], [address] (365 Lymphocytes/100 WBC (Bld) 29.3 % Normal 19-[address] [facility] Comment on above: Performed By: #### L 100.9950, L100.0100, L503.6150, L3410.1000, L506.0250, L503.6550, L3400.8000, L503.6075, L3410.0900 #### [facility] [address] [place], [address] MCH (RBC) [Entitic mass] 28.2 pg Normal 27.0-32.[address] [facility] Comment on above: Performed By: #### L 100.9950, L100.0100, L503.6150, L3410.1000, L506.0250, L503.6550, L3400.8000, L503.6075, L3410.0900 #### [facility] [address] [place], [address] MCHC (RBC) [Mass/Vol] 31.7 g/dL Low 32-36 [facility] Comment on above: Performed By: #### L 100.9950, L100.0100, L503.6150, L3410.1000, L506.0250, L503.6550, L3400.8000, L503.6075, L3410.0900 #### [facility] [address] [place], [address] MCV (RBC) [Entitic vol] 89.2 fL Normal 81-99 [facility] Comment on above: Performed By: #### L 100.9950, L100.0100, L503.6150, L3410.1000, L506.0250, L503.6550, L3400.8000, L503.6075, L3410.0900 #### [facility] [address] [place], [address] Monocytes/100 WBC (Bld) 7.5 % Normal 0-10 [facility] Comment on above: Performed By: #### L 100.9950, L100.0100, L503.6150, L3410.1000, L506.0250, L503.6550, L3400.8000, L503.6075, L3410.0900 #### [facility] [address] [place], [address] Neutrophils/100 WBC (Bld) 60.8 % Normal 47-[address] [facility] Comment on above: Performed By: #### L 100.9950, L100.0100, L503.6150, L3410.1000, L506.0250, L503.6550, L3400.8000, L503.6075, L3410.0900 #### [facility] [address] [place], [address] Nucleated RBC (Bld) [#/Vol] 0 10*3/uL Normal 0-[address] [facility] Comment on above: Performed By: #### L 100.9950, L100.0100, L503.6150, L3410.1000, L506.0250, L503.6550, L3400.8000, L503.6075, L3410.0900 #### [facility] [address] [place], [address] Platelet mean volume (Bld) [Entitic vol] 9.9 fL Normal 6.2-12.[address] [facility] Comment on above: Performed By: #### L 100.9950, L100.0100, L503.6150, L3410.1000, L506.0250, L503.6550, L3400.8000, L503.6075, L3410.0900 #### [facility] [address] [place], [address] Platelets (Bld) [#/Vol] 226 10*3/uL Normal 150-[address] [facility] Comment on above: Performed By: #### L 100.9950, L100.0100, L503.6150, L3410.1000, L506.0250, L503.6550, L3400.8000, L503.6075, L3410.0900 #### [facility] [address] [place], [address] RBC (Bld) [#/Vol] 4.25 10*6/uL Normal 4.2-5.[address] [facility] Comment on above: Performed By: #### L 100.9950, L100.0100, L503.6150, L3410.1000, L506.0250, L503.6550, L3400.8000, L503.6075, L3410.0900 #### [facility] [address] [place], [address] RDW SD 37.0 fl Normal 35.1-43.[address] [facility] Comment on above: Performed By: #### L 100.9950, L100.0100, L503.6150, L3410.1000, L506.0250, L503.6550, L3400.8000, L503.6075, L3410.0900 #### [facility] [address] [place], [address] WBC (Bld) [#/Vol] 4.9 10*3/uL Normal 4.4-11.0 [facility] Comment on above: Performed By: #### L 100.9950, L100.0100, L503.6150, L3410.1000, L506.0250, L503.6550, L3400.8000, L503.6075, L3410.0900 #### [facility] [address] [place], [place], [id number] (834) Ferritinon 02-22-2024 Ferritin [Mass/Vol] 4 ng/mL Low 8-[address] [facility] Comment on above: Order Comment: N Performed By: #### L 100.9950, L100.0100, L503.6150, L3410.1000, L506.0250, L503.6550, L3400.8000, L503.6075, L3410.0900 ####[facility] [address] [facility] [place], [address] Folates, (Folic Acid)on 02-10 FOLATES 6.10 ng/mL Normal 3.1-55.[address] [facility] Comment on above: Order Comment: N Performed By: #### L 100.9950, L100.0100, L503.6150, L3410.1000, L506.0250, L503.6550, L3400.8000, L503.6075, L3410.0900 ####[facility] [address] [place], [address] Ironon 02-22-2024 Iron [Mass/Vol] 32 ug/dL Low 50-[address] [facility] Comment on above: Order Comment: N Performed By: #### L 100.9950, L100.0100, L503.6150, L3410.1000, L506.0250, L503.6550, L3400.8000, L503.6075, L3410.0900 ####[facility] [address] [place], [address] Iron Binding Capacity,Totalo n 02-22-2024 TIBC 448 ug/dL Normal 250-[address] [facility] Comment on above: Order Comment: N Performed By: #### L 100.9950, L100.0100, L503.6150, L3410.1000, L506.0250, L503.6550, L3400.8000, L503.6075, L3410.0900 ####[facility] [address] [place], [address] Retic Panelon 02-22-2024 IM RET FRACTION 4.60 Normal 3.00-15.[address] [facility] Comment on above: Performed By: #### L 100.9950, L100.0100, L503.6150, L3410.1000, L506.0250, L503.6550, L3400.8000, L503.6075, L3410.0900 #### [facility] [address] [place], [address] RET-HE 32.2 pg Normal 30-[address] [facility] Comment on above: Performed By: #### L 100.9950, L100.0100, L503.6150, L3410.1000, L506.0250, L503.6550, L3400.8000, L503.6075, L3410.0900 #### [facility] [address] [place], [address] Retic Count 0.66 Normal 0.5-1.[address] [facility] Comment on above: Performed By: #### L 100.9950, L100.0100, L503.6150, L3410.1000, L506.0250, L503.6550, L3400.8000, L503.6075, L3410.0900 #### [facility] [address] [place], [address] Gastroenterology Visit Repor ton 02-21-2024 Gastroenterology Visit Report [facility]enter[facility] [address] [place] [address] OFFICE VISIT Date of Service: 02/21/24 MR#: [id number] Acct: [id number] Name: CAROLA HARDING Rep #: [id number] : 1990 Provider: AMY chaudhry Age/Sex: 33/F Location: [facility] Status: Signed Intake Vital Signs 09/01/23 10:50 12/22/23 09:47 Height 5 ft 1 in 5 ft 1 in Intake Visit Reasons: 6 M FU Chief Complaint: right clavicle Allergies amoxicillin (Amoxicillin) Allergy (Verified 12/22/23 09:49) Hives cefixime (From Suprax) Allergy (Verified 12/22/23 09:49) Hives lactulose Allergy (Verified 12/22/23 09:49) Hives oxycodone HCl (From Percocet) Adverse Reaction (Verified 12/22/23 09:49) Abd cramps/diarrhea Nurse's Note: OV 02.21.24 Pt here for f/u. Pt reports having 3-4 loose BM every day, and abdominal pain in the evenings. Denies blood in stools, no N/V/D/C. Pt takes prednisone, and zofran daily. [facility] Medical History Autoimmune gastritis Anxiety and depression Chronic anemia Myocarditis Painful orthopaedic hardware Clavicle fracture History of thyroid disorder Surgical History S/P ORIF (open reduction internal fixation) fracture History of tonsillectomy and adenoidectomy Hx of tympanostomy tubes Hx of tubal ligation Family History Mother Diabetes Heart disease Hypertension CVA (cerebral vascular accident) HLD (hyperlipidemia) Father Osteoarthritis Social History household members: spouse Smoking Status: Never smoker alcohol intake: never substance use type: does not use caffeine: Yes Type: carbonated beverages HPI HPI Chief Complaint: right clavicle Details: CAROLA HARDING, is a 33 F who presents to the office today for f/u OV. She reports on intake that she has 3-4 loose BMs daily, but to me states oh no, they're fine. She denies nausea, vomiting, but reported daily use of Zofran on intake. Significant other is present in exam room and very vocal regarding her lack of motivation to care for herself or follow directions. Her partner using offensive language to communicate disgust with [facility] and not seeing the actual doctor today. She is sitting withdrawn and slumped over on exam table; edentulous, sunken facial features, appears to struggle to keep her eyes open. She attempts to answer questions asked of her and quiets when partner talks over her. Attempts made to continually obtain answers from her. She reports some mild epigastric pain after eating spicy and fatty, or fast, foods that will last for a couple of hours and she just deals with it. Reports taking prednisone 40mg twice daily for appetite/ weight increase. She denies fever, chills, cough, early satiety, blood in stool. She denies current and historical use of alcohol, tobacco, and illicit drugs. ROS Const Constitutional: Positive for headache(s); No fatigue, fever(s), weight change or abnormal sleep pattern Eyes Eyes: No blurry vision ENT ENT: Positive for headache(s); No abnormal hearing or difficulty swallowing Resp Respiratory: No cough Gastro GI: Positive for abdominal pain; No belching, bloating, change in bowel habits, change in stool character, coffee ground emesis, constipation, cramping, diarrhea, heartburn, difficulty swallowing, feeling full early, excessive flatus, incontinent of stools, Vomiting blood/hematemesis, Blood in stool, loose stools, Black,tarry stools, nausea/dyspepsia, pain with swallowing, vomiting or other Genitourinary-Female : No difficulty urinating Musc Musculoskeletal: Positive for restless legs; No abnormal gait or joint pain Skin Skin: No yellowing of the eye or itchy eyes Neuro Neurology: Positive for headache(s) and restless legs; No abnormal gait or abnormal hearing Psych Psychiatric: No abnormal sleep pattern, Positive for anxiety, Positive for depression, Positive for Behavioral Problems and Positive for Temper Tantrums Endo Endocrine: No fatigue or weight change Aller/Imm Allergy/Immunologic: No food intolerance or itchy eyes Lopez/Lymp Hematologic/Lymphati c: No easy bleeding or easy bruising Exam Const General: frail appearing Nutritional Appearance: malnourished and underweight Orientation: awake [facility] Head: normal to inspection Ears: hearing grossly normal bilaterally Nose: external nose normal Face and sinus: face symmetric Teeth and gingiva: edentulous Neck Neck: normal visual inspection and full ROM Neck mass: No Chest Chest palpation inspection: normal inspection of the chest Resp Effort Inspection: normal respiratory effort, able to speak (more content not included)... Normal [facility] Comprehensive metabolic 2000 panelOrdered By: Bertha Valdez on 10-30-2023 Albumin [Mass/Vol] 4.3 g/dL 3.9 - 4.9 g/dL [facility] ALP [Catalytic activity/Vol] 52 U/L 34 - 123 U/L [facility] ALT [Catalytic activity/Vol] 11 U/L 7 - 38 U/L [facility] Anion gap [Moles/Vol] 12 mmol/L 9 - 18 mmol/L [facility] AST [Catalytic activity/Vol] 15 U/L 13 - 35 U/L [facility] Bilirubin [Mass/Vol] 0.4 mg/dL 0.2 - 1 .3 mg/dL [facility] Calcium [Mass/Vol] 9.7 mg/dL 8.5 - 10. 2 mg/dL [facility] Chloride [Moles/Vol] 105 mmol/L 97 - 10 5 mmol/L [facility] CO2 [Moles/Vol] 23 mmol/L 22 - 30 mmol/L [facility] Creatinine [Mass/Vol] 0.65 mg/dL 0.58 - 0.96 mg/dL [facility] GFR/1.73 sq M.predicted among non-blacks MDRD (S/P/Bld) [Vol rate/Area] 119 mL/min/{1.73_m2} - PINF [facility] Comment on above: Estimated Glomerular Filtration Rate (eGFR) is calculated using the 2020 CKD-EPI creatinine equation. This equation utilizes serum creatinine, sex, and age as parameters. The creatinine assay has traceable calibration to isotope dilution-mass spectrometry. Refer to KDIGO guidelines for clinical interpretation. In patients with unstable renal function, e.g. those with acute kidney injury, the eGFR may not accurately reflect actual GFR. Glucose [Mass/Vol] 90 mg/dL 74 - 99 mg/dL [facility] Comment on above: The [place] Diabete s Association (ADA) provides guidance for cutoff values for fasting glucose and random glucose. The ADA defines fasting as no caloric intake for at least 8 hours. Fasting plasma glucose results between 100 to 125 mg/dL indicate increased risk for diabetes (prediabetes). Fasting plasma glucose results greater than or equal to 126 mg/dL meet the criteria for diagnosis of diabetes. In the absence of unequivocal hyperglycemia, results should be confirmed by repeat testing. In a patient with classic symptoms of hyperglycemia or hyperglycemic crisis, random plasma glucose results greater than or equal to 200 mg/dL meet the criteria for diagnosis of diabetes. Reference: Standards of Medical Care in Diabetes 2016, [place] Diabetes Association. Diabetes Care. 2016.39(Suppl 1). Interpretation and review of laboratory results Abnormal [facility] Potassium [Moles/Vol] 4.1 mmol/L 3.7 - 5.1 mmol/L [facility] Protein [Mass/Vol] 6.7 g/dL 6.3 - 8.0 g/dL [facility] Sodium [Moles/Vol] 140 mmol/L 136 - 144 mmol/L [facility] Urea nitrogen [Mass/Vol] 6 mg/dL Low 7 - 21 mg/d L [facility] No Panel Informationon 10-29 Interpretation and review of laboratory results Normal [facility] T3, FREEon 10-30-2023 Free T3 [Mass/Vol] 2.9 pg/mL 2.3 - 4.1 pg/mL [facility] T4 FREE/FREE THYROXINEon Free T4 [Mass/Vol] 0.9 ng/dL 0.9 - 1.7 ng/dL [facility] THYROID STIMULATING HORMONEo n 10-30-2023 TSH Qn 0.620 m[IU]/L [facility] Comment on above: If the patient is pr egnant, TSH reference range varies by gestational period: First Trimester (weeks 9-12): 0.180-2.990 mIU/L Second Trimester: 0.110-3.980 mIU/L Third Trimester: 0.480-4.710 mIU/L Saurabh Puri et al. A Practical Approach for the Verifications and Determination of Site- and Trimester-Specific Reference Intervals for Thyroid Function tests in . Thyroid, 2019:29:3:412-420. Nitish Dillon et al. 2017 Guidelines of the [place] Thyroid Association for the Diagnosis and Management of Thyroid Disease during and the . Thyroid, 2017:27:3:315-389. TSH Qnon 10-30-2023 Interpretation and review of laboratory results Normal [facility] Basophil percentageOrdered B y: Chris Low on 08-21-2023 Potassium [Moles/Vol] 3.4 mmol/L 3.5-5.1 [facility] Basophil percentageOrdered B y: Mar Mendes on 08-21-2023 Basophil percentage 2.6 mg/dL 2.5-4.[address] [facility] Basophil percentageOrdered B y: Nitish Freire on 08-21-2023 Chloride [Moles/Vol] 110 mmol/L 98-107 [facility] Glucose [Mass/Vol] 90 mg/dL 74-106 [facility] Hemoglobin (Bld) [Mass/Vol] 10.0 g/dL 12.0-15.[address] [facility] Sodium [Moles/Vol] 144 mmol/L 136-145 [facility] WBC (Bld) [#/Vol] 3.6 10*3/uL 4.4-11.0 [facility] Blood manual differential co mment interpretation (narrative result)Ordered By: Nitish Freire on 08-21-2023 Manual differential comment Gerald (Bld) [Interp] SCANNED [facility] Determination of erythrocyte mean corpuscular volume (MCV)Ordered By: Nitish Freire on 08-21-2023 MCV (RBC) [Entitic vol] 83.5 fL 81-99 [facility] Erythrocyte distribution wid th ratioOrdered By: Nitish Freire on 08-21-2023 Erythrocyte distribution width (RBC) [Ratio] 22.1 % 11.6-14.[address] [facility] Erythrocyte distribution wid th standard deviationOrdered By: Nitish Freire on 08-21-2023 Erythrocyte distribution width (RBC) [Entitic vol] 65.9 fL 35.1-43.[address] [facility] Hematocrit Auto (Bld) [Volum e fraction]Ordered By: Nitish Freire on 08-21-2023 Hematocrit (Bld) [Volume fraction] 33.4 % 37-[address] [facility] - Chemistry and C hemistry - challengeOrdered By: Nitish Freire on 08-21-2023 CO2 [Moles/Vol] 28.0 mmol/L 21.0-32.[address] [facility] Urea nitrogen/Creatinine [Mass ratio] 6.9 mg/mg 10-[address] [facility] - Chemistry and C hemistry - challengeOrdered By: Mar Mendes on 08-21-2023 Magnesium [Mass/Vol] 2.0 mg/dL 1.6-2.6 [facility] Laboratory - Hematology and Cell countsOrdered By: Nitish Freire on 08-21-2023 MCH (RBC) [Entitic mass] 25.0 pg 27.0-32.[address] [facility] MCHC (RBC) [Mass/Vol] 29.9 g/dL 32-36 [facility] Platelet mean volume (Bld) [Entitic vol] 8.6 fL 6.2-12.[address] [facility] Platelets (Bld) [#/Vol] 253 10*3/uL 150-[address] [facility] No Panel InformationOrdered By: Nitish Freire on 08-21-2023 Estimated Creatinine Clearance Calc 89.47 ml/min [facility] Estimated GFR (MDRD) Amer 153 mL/min >[address] [facility] Comment on above: GFR Calc Estimated GFR (MDRD) Non-Af Amer 127 mL/min >[address] [facility] Comment on above: Non- GFR Calc RBC Auto (Bld) [#/Vol]Ordere d By: Nitish Freire on 08-21-2023 RBC (Bld) [#/Vol] 4.00 10*6/uL 4.2-5.[address] [facility] Serum or plasma calcium sona urement (mass/volume)Ordered By: Nitish Freire on 08-21-2023 Calcium [Mass/Vol] 8.2 mg/dL 8.5-10.1 [facility] Serum or plasma creatinine m easurement (mass/volume)Ordered By: Nitish Freire on 08-21-2023 Creatinine [Mass/Vol] 0.58 mg/dL 0.55-1.02 [facility] Comment on above: The validity of the calculated GFR & GFRAA in patients over 70 years has not been determined. Clinical correlation is essential. Serum or plasma urea nitroge n measurement (mass/volume)Ordered By: Nitish Freire on 08-21-2023 Urea nitrogen [Mass/Vol] 4 mg/dL 7-[address] [facility] Thin prep Papanicolaou smear with manual screeningOrdered By: Nitish Freire on 08-21-2023 Thin prep Papanicolaou smear with manual screening 6 5-[address] [facility] Erythrocyte sedimentation ra teOrdered By: Andi Callahan on 08-19-2023 ESR (Bld) [Velocity] 4 mm/h 0-30 [facility] Iron measurement (mass/mass) Ordered By: Nitish Freire on 08-19-2023 Iron (Unsp spec) [Mass/Mass] 23 ug/dL 50-[address] [facility] Laboratory - Chemistry and C hemistry - challengeOrdered By: Andi Callahan on 08-19-2023 HCG ( test) Ql (U) Negative [facility] Comment on above: Very dilute urine sp ecimens, as indicated by a low specificgravity, may not contain territory sales representative levels of hCG. If is still suspected, a first morning urinespecimen should be collected 48 hours later and tested. Cobalamin (Vitamin B12) [Mass/Vol] 574 pg/mL 211-[address] [facility] Laboratory - Chemistry and C hemistry - challengeOrdered By: Nitish Freire on 08-19-2023 Ferritin [Mass/Vol] 290 ng/mL 8-[address] [facility] No Panel InformationOrdered By: Andi Callahan on 08-19-2023 C-Reactive Protein Extended Range < 2.90 mg/L 0.0-3.[address] [facility] Comment on above: C-Reactive Protein ( CRP) provides useful information for thediagnosis, therapy and monitoring of inflammatory processesand associated diseases. For the evaluation of Relative Riskfor Cardiovascular Disease, a High Sensitivity CRP (HSCRP)should be ordered. Folate 9.20 ng/mL 3.1-55.[address] [facility] Free Triiodothyronine (T3) pg/dL 2.2 pg/mL 2.18-3.[address] [facility] No Panel InformationOrdered By: Nitish Freire on 08-19-2023 Vitamin D 25-Hydroxy 30.5 ng/mL [facility] Comment on above: Vitamin D 25(OH) Sta tus Range Deficiency <20 ng/mL (50nmol/L) Insufficiency 20 - 30 ng/mL (50 - 75 nmol/L) Sufficiency 30 - 100 ng/mL (75 - 250 nmol/L) Toxicity >100 ng/mL (>250 nmol/L) Total Iron Binding Capacity 220 ug/dL 250-[address] [facility] Serum or plasma iron saturat ion measurement (mass fraction)Ordered By: Nitish Freire on 08-19-2023 Iron saturation [Mass fraction] 10.5 % 15.0-55.[address] [facility] Serum or plasma thyroid stim ulating hormone (TSH) measurement (units/volume)Ordered By: Andi Callahan on 08-19-2023 TSH Qn 1.30 uIU/mL 0.358-3.[address] [facility] Thin prep Papanicolaou smear with manual screeningOrdered By: Andi Callahan on 08-19-2023 Thin prep Papanicolaou smear with manual screening 0.81 ng/dL 0.76-1.[address] [facility] Absolute lymphocyte countOrd ered By: Amy Villalba on 08-18-2023 Lymphocytes Auto (Unsp spec) [#/Vol] 0.79 10*3/uL 0.83-4.[address] [facility] Automated lymphocyte count a s percentage of total leukocytesOrdered By: Amy Villalba on 08-18-2023 Lymphocytes/100 WBC Auto (Unsp spec) 28.7 % 19-[address] [facility] Basophil percentageOrdered B y: Amy Deejay on 08-18-2023 Basophils/100 WBC (Bld) 0.4 % 0-1 [facility] Bilirubin [Mass/Vol] 0.30 mg/dL 0.20-1.00 [facility] Comment on above: For patients on eltr ombopag therapy, use of Dimension [place] TBIL is not recommended. Eosinophils/100 WBC (Bld) 1.1 % 0-[address] [facility] Monocytes/100 WBC (Bld) 13.1 % 0-10 [facility] Neutrophils (Bld) [#/Vol] 1.6 10*3/uL 2.0-7.[address] [facility] Neutrophils/100 WBC (Bld) 56.7 % 47-[address] [facility] Protein [Mass/Vol] 5.3 g/dL 6.4-8.2 [facility] Immature granulocytes/100 WB C Auto (Bld)Ordered By: Amy Villalba on 08-18-2023 Immature granulocytes/100 WBC (Bld) 0.000 % 0.0-0.[address] [facility] Comment on above: IG% - Immature Granu locytes (promyelocytes, myelocytes and metamyelocytes) > 1% indicates that a LEFT SHIFT is Present. Laboratory - Chemistry and C hemistry - challengeOrdered By: Amy Villalba on 08-18-2023 Albumin/Globulin [Mass ratio] 1.0 {ratio} 0.9-2.[address] [facility] ALP [Catalytic activity/Vol] 56 U/L 45-[address] [facility] ALT [Catalytic activity/Vol] 18 U/L 13-[address] [facility] Globulin (S) [Mass/Vol] 2.7 g/dL 2.2-4.2 [facility] Laboratory - Hematology and Cell countsOrdered By: Amy Villalba on 08-18-2023 Anisocytosis Ql (Bld) 1+ [facility] Nucleated RBC/100 WBC (Bld) [Ratio] 0 % 0-[address] [facility] Thin prep Papanicolaou smear with manual screeningOrdered By: Amy Villalba on 08-18-2023 Thin prep Papanicolaou smear with manual screening 2.6 g/dL 3.2-5.[address] [facility] Thin prep Papanicolaou smear with manual screening 29 U/L 15-[address] [facility] Absolute lymphocyte countOrd ered By: ED PROVIDER on 08-17-2023 Lymphocytes Auto (Unsp spec) [#/Vol] 0.51 10*3/uL 0.83-4.[address] [facility] Automated lymphocyte count a s percentage of total leukocytesOrdered By: ED PROVIDER on 08-17-2023 Lymphocytes/100 WBC Auto (Unsp spec) 10.2 % 19-[address] [facility] Basophil percentageOrdered B y: ED PROVIDER on 08-17-2023 Basophil percentage 0-5 SEEN /hpf 0-5 [facility] Basophils/100 WBC (Bld) 0.2 % 0-1 [facility] Chloride [Moles/Vol] 108 mmol/L 98-107 [facility] Eosinophils/100 WBC (Bld) 0.0 % 0-[address] [facility] Glucose [Mass/Vol] 93 mg/dL 74-106 [facility] Hemoglobin (Bld) [Mass/Vol] 10.6 g/dL 12.0-15.[address] [facility] Monocytes/100 WBC (Bld) 7.6 % 0-10 [facility] Neutrophils (Bld) [#/Vol] 4.1 10*3/uL 2.0-7.[address] [facility] Neutrophils/100 WBC (Bld) 81.8 % 47-[address] [facility] Potassium [Moles/Vol] 3.2 mmol/L 3.5-5.1 [facility] Sodium [Moles/Vol] 141 mmol/L 136-145 [facility] WBC (Bld) [#/Vol] 5.0 10*3/uL 4.4-11.0 [facility] Basophil percentageOrdered B y: Divine Hall on 08-17-2023 Bilirubin [Mass/Vol] 0.30 mg/dL 0.20-1.00 [facility] Comment on above: For patients on eltr ombopag therapy, use of Dimension [place] TBIL is not recommended. Protein [Mass/Vol] 6.9 g/dL 6.4-8.2 [facility] Bilirubin Test strip Ql (U)O rdered By: ED PROVIDER on 08-17-2023 Bilirubin Ql (U) Negative Negative [facility] Blood manual differential co mment interpretation (narrative result)Ordered By: ED PROVIDER on 08-17-2023 Manual differential comment Gerald (Bld) [Interp] SCANNED [facility] Determination of erythrocyte mean corpuscular volume (MCV)Ordered By: ED PROVIDER on 08-17-2023 MCV (RBC) [Entitic vol] 83.9 fL 81-99 [facility] Direct bilirubinOrdered By: Divine Hall on 08-17-2023 Bilirubin.direct [Mass/Vol] 0.10 mg/dL 0.00-0.[address] [facility] Erythrocyte distribution wid th ratioOrdered By: ED PROVIDER on 08-17-2023 Erythrocyte distribution width (RBC) [Ratio] 21.5 % 11.6-14.[address] [facility] Erythrocyte distribution wid th standard deviationOrdered By: ED PROVIDER on 08-17-2023 Erythrocyte distribution width (RBC) [Entitic vol] 64.8 fL 35.1-43.[address] [facility] Hematocrit Auto (Bld) [Volum e fraction]Ordered By: ED PROVIDER on 08-17-2023 Hematocrit (Bld) [Volume fraction] 34.9 % 37-[address] [facility] Immature granulocytes/100 WB C Auto (Bld)Ordered By: ED PROVIDER on 08-17-2023 Immature granulocytes/100 WBC (Bld) 0.200 % 0.0-0.[address] [facility] Comment on above: IG% - Immature Granu locytes (promyelocytes, myelocytes and metamyelocytes) > 1% indicates that a LEFT SHIFT is Present. Ketones Test strip Ql (U)Ord ered By: ED PROVIDER on 08-17-2023 Ketones Ql (U) 5 mg/dl Negative [facility] Laboratory - Chemistry and C hemistry - challengeOrdered By: Divine Hall on 08-17-2023 Magnesium [Mass/Vol] 2.0 mg/dL 1.6-2.6 [facility] ALP [Catalytic activity/Vol] 75 U/L 45-[address] [facility] ALT [Catalytic activity/Vol] 23 U/L 13-[address] [facility] Globulin (S) [Mass/Vol] 3.5 g/dL 2.2-4.2 [facility] Lipase [Catalytic activity/Vol] 20 U/L 13-[address] [facility] Comment on above: Please note:LIPASE r evised reference range effective 22. New Lipase methodology. Expected to produce lower values than the previous assay method. NEW Reference Range: 13 - 75 U/L Natriuretic peptide B (Bld) [Mass/Vol] 4.7 pg/mL 0-[address] [facility] Laboratory - Chemistry and C hemistry - challengeOrdered By: ED PROVIDER on 08-17-2023 Albumin/Globulin [Mass ratio] 1.0 {ratio} 0.9-2.[address] [facility] CO2 [Moles/Vol] 27.0 mmol/L 21.0-32.[address] [facility] Urea nitrogen/Creatinine [Mass ratio] 14.9 mg/mg 10-[address] [facility] Laboratory - Hematology and Cell countsOrdered By: ED PROVIDER on 08-17-2023 Anisocytosis Ql (Bld) 2+ [facility] MCH (RBC) [Entitic mass] 25.5 pg 27.0-32.[address] [facility] MCHC (RBC) [Mass/Vol] 30.4 g/dL 32-36 [facility] Nucleated RBC/100 WBC (Bld) [Ratio] 0 % 0-[address] [facility] Platelet mean volume (Bld) [Entitic vol] 9.4 fL 6.2-12.[address] [facility] Platelets (Bld) [#/Vol] 168 10*3/uL 150-[address] [facility] Macrocytes detectionOrdered By: ED PROVIDER on 08-17-2023 Macrocytes Ql (Bld) 1+ [facility] Mucus LM Ql (Urine sed)Order ed By: ED PROVIDER on 08-17-2023 Mucus Ql (Urine sed) 1+ /hpf [facility] Nitrite Test strip Ql (U)Ord ered By: ED PROVIDER on 08-17-2023 Nitrite Ql (U) Negative Negative [facility] No Panel InformationOrdered By: Divine Hall on 08-17-2023 Troponin I High Sensitivity 16 pg/mL 3.0-54.[address] [facility] Comment on above: Please Note: New Stephanie t Units and Gender Specific Reference Ranges. For more information see Policy Stat Procedure [place] High Sensitivity Troponin (TNIH) and attachments. No Panel InformationOrdered By: ED PROVIDER on 08-17-2023 Urine RBC 0-5 SEEN /hpf 0-[address] [facility] Estimated Creatinine Clearance Calc 82.89 ml/min [facility] Estimated GFR (MDRD) Amer 147 mL/min >[address] [facility] Comment on above: GFR Calc Estimated GFR (MDRD) Non-Af Amer 121 mL/min >[address] [facility] Comment on above: Non- GFR Calc Protein Test strip Ql (U)Ord ered By: ED PROVIDER on 08-17-2023 Protein Ql (U) Negative Negative [facility] RBC Auto (Bld) [#/Vol]Ordere d By: ED PROVIDER on 08-17-2023 RBC (Bld) [#/Vol] 4.16 10*6/uL 4.2-5.[address] [facility] Respiratory pathogens DNA an d RNA panel REZA+probe (Resp)Ordered By: Amy Villalba on 08-17-2023 Respiratory Panel (PCR) Rhinovirus [facility] Serum or plasma calcium sona urement (mass/volume)Ordered By: ED PROVIDER on 08-17-2023 Calcium [Mass/Vol] 8.4 mg/dL 8.5-10.1 [facility] Serum or plasma choriogonado tropin detectionOrdered By: ED PROVIDER on 08-17-2023 HCG ( test) Ql Negative [facility] Serum or plasma creatinine m easurement (mass/volume)Ordered By: ED PROVIDER on 08-17-2023 Creatinine [Mass/Vol] 0.60 mg/dL 0.55-1.02 [facility] Comment on above: The validity of the calculated GFR & GFRAA in patients over 70 years has not been determined. Clinical correlation is essential. Serum or plasma urea nitroge n measurement (mass/volume)Ordered By: ED PROVIDER on 08-17-2023 Urea nitrogen [Mass/Vol] 9 mg/dL 7-[address] [facility] Serum procalcitonin measurem entOrdered By: Amy Villalba on 08-17-2023 Procalcitonin [Mass/Vol] ng/mL 0.00-0.[address] [facility] Comment on above: A procalcitonin (PCT ) level above 2.0 ng/mL on the first day of ICU admission is associated with a high risk for progression to severe sepsis and/or septic shock. A PCT level below 0.5 ng/mL on the first day of ICU admission is associated with a low risk for progression to severe and/or septic shock. Note: Concentrations <0.5 ng/mL do not exclude an infection on account of localized infections (without systemic signs) which can be associated with such low concentrations, or a systemic infection in its initial stages (<6 hours). Furthermore, increased procalcitonin can occur without infection. PCT concentrations between 0.5 and 2.0 ng/mL should be interpreted taking into account the patient's history. It is recommended to retest PCT within 6-24 hours if any concentrations <2 ng/mL are obtained. Squamous epithelial cells de tection in urine sediment by light microscopyOrdered By: ED PROVIDER on 08-17-2023 Epithelial cells.squamous LM Ql (Urine sed) 0-5 SEEN /hpf 5-[address] [facility] Thin prep Papanicolaou smear with manual screeningOrdered By: ED PROVIDER on 08-17-2023 Thin prep Papanicolaou smear with manual screening 1+ [facility] Thin prep Papanicolaou smear with manual screening 6 5-[address] [facility] Thin prep Papanicolaou smear with manual screeningOrdered By: Divine Hall on 08-17-2023 Thin prep Papanicolaou smear with manual screening 3.4 g/dL 3.2-5.[address] [facility] Thin prep Papanicolaou smear with manual screening 30 U/L 15-[address] [facility] Urine blood detectionOrdered By: ED PROVIDER on 08-17-2023 RBC Ql (U) 250 /ul Negative [facility] Urine clarityOrdered By: ED PROVIDER on 08-17-2023 Clarity (U) Clear Clear [facility] Urine color determinationOrd ered By: ED PROVIDER on 08-17-2023 Color (U) Yellow Yellow [facility] Urine glucose detectionOrder ed By: ED PROVIDER on 08-17-2023 Glucose Ql (U) Normal mg/dl Normal [facility] Urine leukocyte esterase det ection by dipstickOrdered By: ED PROVIDER on 08-17-2023 Leukocyte esterase Test strip Ql (U) 25 /ul Negative [facility] Urine pHOrdered By: ED PROVI MICHOACANO on 08-17-2023 pH (U) 8.0 [pH] 5.0 - 8.[address] [facility] Urine sediment bacteria coun t by microscopy (number/high power field)Ordered By: ED PROVIDER on 08-17-2023 Bacteria LM.HPF (Urine sed) [#/Area] 0 /[HPF] None Seen [facility] Urine specific gravity measu rementOrdered By: ED PROVIDER on 08-17-2023 Specific gravity (U) [Rel density] 1.010 1.002-1.[address] [facility] Urine urobilinogen measureme ntOrdered By: ED PROVIDER on 08-17-2023 Urobilinogen Ql (U) 1 mg/dl Normal [facility] CBC W Auto Differential pane l (Bld)on 07-26-2023 Basophils (Bld) [#/Vol] 0.05 10*3/uL <0.11 k/uL [facility] Basophils/100 WBC (Bld) 0.5 % C [facility] Differential cell count method Nom (Bld) Auto [facility] Eosinophils (Bld) [#/Vol] 0.10 10*3/uL <0.46 k/uL [facility] Eosinophils/100 WBC (Bld) 1.0 % [facility] Erythrocyte distribution width (RBC) [Ratio] 17.7 % High 11.5 - 15.0 % [facility] Hematocrit (Bld) [Volume fraction] 33.2 % Low 36.0 - 46.0 % [facility] Hemoglobin (Bld) [Mass/Vol] 9.6 g/dL Low 11.5 - 15.5 g/dL [facility] Immature granulocytes (Bld) [#/Vol] 0.04 10*3/uL <0.10 k/uL [facility] Immature granulocytes/100 WBC (Bld) 0.4 % [facility] Lymphocytes (Bld) [#/Vol] 1.51 10*3/uL 1.00 - 4.00 k/uL [facility] Lymphocytes/100 WBC (Bld) 15.8 % [facility] MCH (RBC) [Entitic mass] 22.8 pg Low 26. 0 - 34.0 pg [facility] MCHC (RBC) [Mass/Vol] 28.9 g/dL Low 30.5 - 36.0 g/dL [facility] MCV (RBC) [Entitic vol] 78.9 fL Low 80.0 - 100.0 fL [facility] Monocytes (Bld) [#/Vol] 0.75 10*3/uL <0.87 k/uL [facility] Monocytes/100 WBC (Bld) 7.8 % [facility]ils ([facility]ld[facility] [#/Vol] 7.13 10*3/uL 1.45 - 7.50 k/uL [facility] Neutrophils/100 WBC (Bld) 74.5 % [facility] Nucleated RBC (Bld) [#/Vol] <0.01 k/uL [facility] Nucleated RBC/100 WBC (Bld) [Ratio] 0.0 /100 WBC [facility] Platelet mean volume (Bld) [Entitic vol] 8.8 fL Low 9.0 - 12.7 fL [facility] Platelets (Bld) [#/Vol] 544 10*3/uL High 150 - 400 k/uL [facility] RBC (Bld) [#/Vol] 4.21 10*6/uL 3.90 - 5.2 0 m/uL [facility] WBC (Bld) [#/Vol] 9.58 10*3/uL 3.70 - 11. 00 k/uL [facility] Comprehensive metabolic 2000 panelon 07-26-2023 Albumin [Mass/Vol] 4.0 g/dL 3.9 - 4.9 g/dL [facility] ALP [Catalytic activity/Vol] 88 U/L 34 - 123 U/L [facility] ALT [Catalytic activity/Vol] 11 U/L 7 - 38 U/L [facility] Anion gap [Moles/Vol] 9 mmol/L 9 - 18 mmol/L [facility] AST [Catalytic activity/Vol] 17 U/L 13 - 35 U/L [facility] Bilirubin [Mass/Vol] 0.2 mg/dL 0.2 - 1 .3 mg/dL [facility] Calcium [Mass/Vol] 10.0 mg/dL 8.5 - 10. 2 mg/dL [facility] Chloride [Moles/Vol] 104 mmol/L 97 - 10 5 mmol/L [facility] CO2 [Moles/Vol] 28 mmol/L 22 - 30 mmol/L [facility] Creatinine [Mass/Vol] 0.60 mg/dL 0.58 - 0.96 mg/dL [facility] Estimated Glomerular Filtration Rate 122 mL/min/1.73m >=60 mL/min/1.73m [facility] Glucose [Mass/Vol] 70 mg/dL Low 74 - 99 mg/dL [facility] Potassium [Moles/Vol] 4.0 mmol/L 3.7 - 5.1 mmol/L [facility] Protein [Mass/Vol] 8.0 g/dL 6.3 - 8.0 g/dL [facility] Sodium [Moles/Vol] 141 mmol/L 136 - 144 mmol/L [facility] Urea nitrogen [Mass/Vol] 12 mg/dL 7 - 21 mg/d L [facility] FOLATE SERUMon 07-26-2023 Folate [Mass/Vol] 9.2 ng/mL >4.7 ng/mL [facility] LD LACTATE DEHYDROon 024 LDH [Catalytic activity/Vol] 164 U/L 135 - 214 U/L [facility] VITAMIN B12 BLOODon 07-26-19 24 Cobalamin (Vitamin B12) [Mass/Vol] 1209 pg/mL 232 - 1,245 pg/mL [facility] CBC W Auto Differential pane l (Bld)on 07-21-2023 Basophils (Bld) [#/Vol] <0.11 k/[facility]L [facility] Bas[facility] WBC (Bld) 0.3 % [facility] Differential cell count method Nom (Bld) Auto [facility] Eosinophils (Bld) [#/Vol] 0.08 10*3/uL <0.46 k/uL [facility] Eosinophils/100 WBC (Bld) 1.4 % [facility] Erythrocyte distribution width (RBC) [Ratio] 16.8 % High 11.5 - 15.0 % [facility] Hematocrit (Bld) [Volume fraction] 31.3 % Low 36.0 - 46.0 % [facility] Hemoglobin (Bld) [Mass/Vol] 8.9 g/dL Low 11.5 - 15.5 g/dL [facility] Immature granulocytes (Bld) [#/Vol] <0.10 k/uL [facility] Immature granulocytes/100 WBC (Bld) 0.3 % [facility] Lymphocytes (Bld) [#/Vol] 1.32 10*3/uL 1.00 - 4.00 k/uL [facility] Lymphocytes/100 WBC (Bld) 22.5 % [facility] MCH (RBC) [Entitic mass] 22.3 pg Low 26. 0 - 34.0 pg [facility] MCHC (RBC) [Mass/Vol] 28.4 g/dL Low 30.5 - 36.0 g/dL [facility] MCV (RBC) [Entitic vol] 78.3 fL Low 80.0 - 100.0 fL [facility] Monocytes (Bld) [#/Vol] 0.83 10*3/uL <0.87 k/uL [facility] Monocytes/100 WBC (Bld) 14.1 % [facility] Neutrophils (Bld) [#/Vol] 3.60 10*3/uL 1.45 - 7.50 k/uL [facility] Neutrophils/100 WBC (Bld) 61.4 % [facility] Nucleated RBC (Bld) [#/Vol] <0.01 k/uL [facility] Nucleated RBC/100 WBC (Bld) [Ratio] 0.0 /100 WBC [facility] Platelet mean volume (Bld) [Entitic vol] 9.9 fL 9.0 - 12.7 fL [facility] Platelets (Bld) [#/Vol] 409 10*3/uL High 150 - 400 k/uL [facility] RBC (Bld) [#/Vol] 4.00 10*6/uL 3.90 - 5.2 0 m/uL [facility] WBC (Bld) [#/Vol] 5.87 10*3/uL 3.70 - 11. 00 k/uL [facility] Comprehensive metabolic 2000 panelon 07-21-2023 Albumin [Mass/Vol] 3.9 g/dL 3.9 - 4.9 g/dL [facility] ALP [Catalytic activity/Vol] 70 U/L 34 - 123 U/L [facility] ALT [Catalytic activity/Vol] 16 U/L 7 - 38 U/L [facility] Anion gap [Moles/Vol] 8 mmol/L Low 9 - 18 mmol/L [facility] AST [Catalytic activity/Vol] 21 U/L 13 - 35 U/L [facility] Bilirubin [Mass/Vol] Low 0.2 - 1 .3 mg/dL [facility] Calcium [Mass/Vol] 9.6 mg/dL 8.5 - 10. 2 mg/dL [facility] Chloride [Moles/Vol] 102 mmol/L 97 - 10 5 mmol/L [facility] CO2 [Moles/Vol] 30 mmol/L 22 - 30 mmol/L [facility] Creatinine [Mass/Vol] 0.57 mg/dL Low 0.58 - 0.96 mg/dL [facility] Estimated Glomerular Filtration Rate 124 mL/min/1.73m >=60 mL/min/1.73m [facility] Glucose [Mass/Vol] 73 mg/dL Low 74 - 99 mg/dL [facility] Potassium [Moles/Vol] 4.2 mmol/L 3.7 - 5.1 mmol/L [facility] Protein [Mass/Vol] 7.4 g/dL 6.3 - 8.0 g/dL [facility] Sodium [Moles/Vol] 140 mmol/L 136 - 144 mmol/L [facility] Urea nitrogen [Mass/Vol] 9 mg/dL 7 - 21 mg/d L [facility] D-DIMERon 07-21-2023 Fibrin D-dimer FEU (PPP) [Mass/Vol] 420 ng/mL FEU <500 ng/mL FEU [facility] FERRITIN BLDon 07-21-2023 Ferritin [Mass/Vol] 36.5 ng/mL 14.7 - 2 05.1 ng/mL [facility] Iron and Iron binding capaci ty panelon 07-21-2023 Iron [Mass/Vol] 32 ug/dL Low 41 - 186 ug/dL [facility] Iron binding capacity [Mass/Vol] 382 ug/dL 232 - 386 ug/dL [facility] Iron/TIBC [Molar ratio] 8.4 % Low 15.0 - 57.0 % [facility] T3 BLDon 07-21-2023 T3 [Mass/Vol] 107 ng/dL 79 - 165 ng/dL [facility] T4 FREE/FREE THYROXon 2023 Free T4 [Mass/Vol] 0.9 ng/dL 0.9 - 1.7 ng/dL [facility] TSH BLDon 07-21-2023 TSH Qn 0.858 m[IU]/L 0.270 - 4.200 mIU/L [facility] XR Chest 2 [facility] XR Chest PA and Lateralon IMPRESSION: No acute radiographic abnormality. Legal Executive: [employer] Transcribe Date/Time: Jul 21 2023 3:46P Dictated by : RUTH ANN ROOT MD This examination was interpreted and the report reviewed and electronically signed by: RUTH ANN ROOT MD on Jul 21 2023 3:47PM [facility] * * *Final Report* * * DATE OF EXAM: Jul 21 2023 2:59PM WOX [id number] - XR CHEST 2V FRONTAL/LAT / PROCEDURE REASON: Subacute cough * * * * Physician Interpretation * * * * EXAMINATION: CHEST RADIOGRAPH (2 VIEW FRONTAL & LATERAL) CLINICAL HISTORY: Subacute cough MQ: [id number] EXAM DATE/TIME: 07/21/2023 2:59 PM COMPARISON: Chest x-ray on 12/23/2019 RESULT: Lines, tubes, and devices: None. Lungs and pleura: No consolidation. No lung mass. No pleural effusion. No pneumothorax. Cardiomediastinal silhouette: Normal cardiomediastinal silhouette. Bones and soft tissues: There are postoperative changes in the right clavicle. DIVISION OF RADIOLOGY Provider, [facility] [place] - 07/21/2023 * * *Final Report* * * DATE OF EXAM: Jul 21 2023 2:59PM WOX [id number] - XR CHEST 2V FRONTAL/LAT / PROCEDURE REASON: Subacute cough * * * * Physician Interpretation * * * * EXAMINATION: CHEST RADIOGRAPH (2 VIEW FRONTAL & LATERAL) CLINICAL HISTORY: Subacute cough MQ: [id number] EXAM DATE/TIME: 07/21/2023 2:59 PM COMPARISON: Chest x-ray on 12/23/2019 RESULT: Lines, tubes, and devices: None. Lungs and pleura: No consolidation. No lung mass. No pleural effusion. No pneumothorax. Cardiomediastinal silhouette: Normal cardiomediastinal silhouette. Bones and soft tissues: There are postoperative changes in the right clavicle. IMPRESSION IMPRESSION: No acute radiographic abnormality. Legal Executive: [facility] Transcribe Date/Time: Jul 21 2023 3:46P Dictated by : RUTH ANN ROOT MD This examination was interpreted and the report reviewed and electronically signed by: RUTH ANN ROOT MD on Jul 21 2023 3:47PM EST [facility] Study observation (narrative) Chun bermeo [facility] XR Chest PA and LateralOrder ed By: Cc Provider on 07-21-2023 [facility] Absolute lymphocyte countOrd ered By: Amy Villalba on 07-18-2023 Lymphocytes Auto (Unsp spec) [#/Vol] 1.34 10*3/uL 0.83-4.[address] [facility] Automated lymphocyte count a s percentage of total leukocytesOrdered By: Amy Villalba on 07-18-2023 Lymphocytes/100 WBC Auto (Unsp spec) 33.8 % 19-[address] [facility] Basophil percentageOrdered B y: White on 07-18-2023 Basophils/100 WBC (Bld) 0.3 % 0-1 [facility] Bilirubin [Mass/Vol] 0.30 mg/dL 0.20-1.00 [facility] Comment on above: For patients on eltr ombopag therapy, use of Dimension [place] TBIL is not recommended. Chloride [Moles/Vol] 108 mmol/L 98-107 [facility] Eosinophils/100 WBC (Bld) 0.3 % 0-[address] [facility] Glucose [Mass/Vol] 96 mg/dL 74-106 [facility] Hemoglobin (Bld) [Mass/Vol] 8.0 g/dL 12.0-15.[address] [facility] Monocytes/100 WBC (Bld) 10.9 % 0-10 [facility] Neutrophils (Bld) [#/Vol] 2.2 10*3/uL 2.0-7.[address] [facility] Neutrophils/100 WBC (Bld) 54.4 % 47-[address] [facility] Potassium [Moles/Vol] 3.4 mmol/L 3.5-5.1 [facility] Protein [Mass/Vol] 6.5 g/dL 6.4-8.2 [facility] Sodium [Moles/Vol] 139 mmol/L 136-145 [facility] WBC (Bld) [#/Vol] 4.0 10*3/uL 4.4-11.0 [facility] Determination of erythrocyte mean corpuscular volume (MCV)Ordered By: on 07-18-2023 MCV (RBC) [Entitic vol] 76.1 fL 81-99 [facility] Erythrocyte distribution wid th ratioOrdered By: on 07-18-2023 Erythrocyte distribution width (RBC) [Ratio] 16.9 % 11.6-14.[address] [facility] Erythrocyte distribution wid th standard deviationOrdered By: on 07-18-2023 Erythrocyte distribution width (RBC) [Entitic vol] 47.6 fL 35.1-43.[address] [facility] Hematocrit Auto (Bld) [Volum e fraction]Ordered By: Amy Villalba on 07-18-2023 Hematocrit (Bld) [Volume fraction] 27.1 % 37-[address] [facility] Immature granulocytes/100 WB C Auto (Bld)Ordered By: Amy Villalba on 07-18-2023 Immature granulocytes/100 WBC (Bld) 0.300 % 0.0-0.[address] [facility] Comment on above: IG% - Immature Granu locytes (promyelocytes, myelocytes and metamyelocytes) > 1% indicates that a LEFT SHIFT is Present. Laboratory - Chemistry and C hemistry - challengeOrdered By: Amy Villalba on 07-18-2023 Albumin/Globulin [Mass ratio] 0.8 {ratio} 0.9-2.[address] [facility] ALP [Catalytic activity/Vol] 66 U/L 45-[address] [facility] ALT [Catalytic activity/Vol] 25 U/L 13-[address] [facility] CO2 [Moles/Vol] 28.0 mmol/L 21.0-32.[address] [facility] Globulin (S) [Mass/Vol] 3.7 g/dL 2.2-4.2 [facility] Urea nitrogen/Creatinine [Mass ratio] 7.5 mg/mg 10-[address] [facility] Laboratory - Hematology and Cell countsOrdered By: Amy Villalba on 07-18-2023 MCH (RBC) [Entitic mass] 22.5 pg 27.0-32.[address] [facility] MCHC (RBC) [Mass/Vol] 29.5 g/dL 32-36 [facility] Nucleated RBC/100 WBC (Bld) [Ratio] 0 % 0-[address] [facility] Platelet mean volume (Bld) [Entitic vol] 10.2 fL 6.2-12.[address] [facility] Platelets (Bld) [#/Vol] 161 10*3/uL 150-[address] [facility] No Panel InformationOrdered By: Amy Villalba on 07-18-2023 Estimated Creatinine Clearance Calc 91.90 ml/min [facility] Estimated GFR (MDRD) Amer 171 mL/min >[address] [facility] Comment on above: GFR Calc Estimated GFR (MDRD) Non-Af Amer 141 mL/min >[address] [facility] Comment on above: Non- GFR Calc Ovalocyte detectionOrdered B y: Amy Villalba on 07-18-2023 Ovalocytes LM Ql (Bld) 2+ [facility] RBC Auto (Bld) [#/Vol]Ordere d By: Amy Villalba on 07-18-2023 RBC (Bld) [#/Vol] 3.56 10*6/uL 4.2-5.[address] [facility] Review by pathologistOrdered By: Amy Villalba on 07-18-2023 Pathologist review Gerald (Unsp spec) [Interp] Reviewed [facility] Comment on above: Previous reported re sult: October melissa Edited by: RGOLAM on 07/18/23:1256Leukopenia.Microcytic anemia.Clinical correlation necessary.Chidi Beasley M.D. 07/18/23 AMENDED REPORT 07/18/23 1256 PATH REV previously reported as: October melissa Serum or plasma calcium sona urement (mass/volume)Ordered By: Amy Villalba on 07-18-2023 Calcium [Mass/Vol] 8.7 mg/dL 8.5-10.1 [facility] Serum or plasma creatinine m easurement (mass/volume)Ordered By: Amy Villalba on 07-18-2023 Creatinine [Mass/Vol] 0.53 mg/dL 0.55-1.02 [facility] Comment on above: The validity of the calculated GFR & GFRAA in patients over 70 years has not been determined. Clinical correlation is essential. Serum or plasma urea nitroge n measurement (mass/volume)Ordered By: Amy Villalba on 07-18-2023 Urea nitrogen [Mass/Vol] 4 mg/dL 7-[address] [facility] Thin prep Papanicolaou smear with manual screeningOrdered By: Amy Villalba on 07-18-2023 Thin prep Papanicolaou smear with manual screening 2.8 g/dL 3.2-5.[address] [facility] Thin prep Papanicolaou smear with manual screening 28 U/L 15-[address] [facility] Thin prep Papanicolaou smear with manual screening 3 5-[address] [facility] Basophil percentageOrdered B y: Kaushal Wright on 07-17-2023 Basophil percentage 2.3 mg/dL 2.5-4.[address] [facility] Blood manual differential co mment interpretation (narrative result)Ordered By: Kaushal Wright on 07-17-2023 Manual differential comment Gerald (Bld) [Interp] SCANNED [facility] HIV 1 and HIV-2 antibody ass ay with HIV-1 p24 antigen detectionOrdered By: Kaushal Wright on 07-17-2023 HIV 1+2 Ab+HIV1 p24 Ag IA Ql Non-Reactive Nonreactive [facility] Iron measurement (mass/mass) Ordered By: Amy Villalba on 07-17-2023 Iron (Unsp spec) [Mass/Mass] 16 ug/dL 50-[address] [facility] Laboratory - Chemistry and C hemistry - challengeOrdered By: Kaushal Wright on 07-17-2023 Cobalamin (Vitamin B12) [Mass/Vol] 827 pg/mL 211-[address] [facility] Laboratory - Chemistry and C hemistry - challengeOrdered By: Amy Villalba on 07-17-2023 Ferritin [Mass/Vol] 29 ng/mL 8-[address] [facility] Magnesium [Mass/Vol] 2.5 mg/dL 1.6-2.6 [facility] No Panel InformationOrdered By: Kaushal Wright on 07-17-2023 Reactive Lymphocytes 1+ [facility] Troponin I High Sensitivity 65 pg/mL 3.0-54.[address] [facility] Comment on above: Please Note: New Stephanie t Units and Gender Specific Reference Ranges. For more information see Policy Stat Procedure [facility] High Sensitivity Troponin (TNIH) and attachments. No Panel InformationOrdered By: Amy Villalba on 07-17-2023 Total Iron Binding Capacity 300 ug/dL 250-[address] [facility] Serum or plasma iron saturat ion measurement (mass fraction)Ordered By: Amy Villalba on 07-17-2023 Iron saturation [Mass fraction] 5.3 % 15.0-55.[address] [facility] Serum or plasma thyroid stim ulating hormone (TSH) measurement (units/volume)Ordered By: Kaushal Wright on 07-17-2023 TSH Qn 0.64 uIU/mL 0.358-3.[address] [facility] Absolute lymphocyte countOrd ered By: Lang Atkinson on 07-16-2023 Lymphocytes Auto (Unsp spec) [#/Vol] 0.90 10*3/uL 0.83-4.[address] [facility] Automated lymphocyte count a s percentage of total leukocytesOrdered By: Lang Atkinson on 07-16-2023 Lymphocytes/100 WBC Auto (Unsp spec) 25.1 % 19-[address] [facility] Basophil percentageOrdered B y: Lang Atkinson on 07-16-2023 Basophils/100 WBC (Bld) 0.3 % 0-1 [facility] Bilirubin [Mass/Vol] 0.20 mg/dL 0.20-1.00 [facility] Comment on above: For patients on eltr ombopag therapy, use of Dimension [place] TBIL is not recommended. Chloride [Moles/Vol] 110 mmol/L 98-107 [facility] Eosinophils/100 WBC (Bld) 0.0 % 0-[address] [facility] Glucose [Mass/Vol] 96 mg/dL 74-106 [facility] Hemoglobin (Bld) [Mass/Vol] 8.3 g/dL 12.0-15.[address] [facility] Monocytes/100 WBC (Bld) 7.3 % 0-10 [facility] Neutrophils (Bld) [#/Vol] 2.4 10*3/uL 2.0-7.[address] [facility] Neutrophils/100 WBC (Bld) 67.3 % 47-[address] [facility] Potassium [Moles/Vol] 2.8 mmol/L 3.5-5.1 [facility] Protein [Mass/Vol] 6.5 g/dL 6.4-8.2 [facility] Sodium [Moles/Vol] 142 mmol/L 136-145 [facility] WBC (Bld) [#/Vol] 3.6 10*3/uL 4.4-11.0 [facility] Determination of erythrocyte mean corpuscular volume (MCV)Ordered By: Lang Atkinson on 07-16-2023 MCV (RBC) [Entitic vol] 76.2 fL 81-99 [facility] Erythrocyte distribution wid th ratioOrdered By: Lang Atkinson on 07-16-2023 Erythrocyte distribution width (RBC) [Ratio] 16.9 % 11.6-14.[address] [facility] Erythrocyte distribution wid th standard deviationOrdered By: Lang Atkinson on 07-16-2023 Erythrocyte distribution width (RBC) [Entitic vol] 47.5 fL 35.1-43.[address] [facility] Hematocrit Auto (Bld) [Volum e fraction]Ordered By: Lang Atkinson on 07-16-2023 Hematocrit (Bld) [Volume fraction] 27.9 % 37-[address] [facility] Immature granulocytes/100 WB C Auto (Bld)Ordered By: Lang Atkinson on 07-16-2023 Immature granulocytes/100 WBC (Bld) 0.000 % 0.0-0.[address] [facility] Comment on above: IG% - Immature Granu locytes (promyelocytes, myelocytes and metamyelocytes) > 1% indicates that a LEFT SHIFT is Present. Laboratory - Chemistry and C hemistry - challengeOrdered By: Lang Atkinson on 07-16-2023 Albumin/Globulin [Mass ratio] 0.9 {ratio} 0.9-2.[address] [facility] ALP [Catalytic activity/Vol] 51 U/L 45-[address] [facility] ALT [Catalytic activity/Vol] 24 U/L 13-[address] [facility] CO2 [Moles/Vol] 29.0 mmol/L 21.0-32.[address] [facility] Globulin (S) [Mass/Vol] 3.5 g/dL 2.2-4.2 [facility] Lipase [Catalytic activity/Vol] 50 U/L 13-[address] [facility] Comment on above: Please note:LIPASE r evised reference range effective 22. New Lipase methodology. Expected to produce lower values than the previous assay method. NEW Reference Range: 13 - 75 U/L Natriuretic peptide B (Bld) [Mass/Vol] 17.7 pg/mL 0-[address] [facility] Urea nitrogen/Creatinine [Mass ratio] 14.7 mg/mg 10-[address] [facility] Laboratory - Hematology and Cell countsOrdered By: Lang Atkinson on 07-16-2023 MCH (RBC) [Entitic mass] 22.7 pg 27.0-32.[address] [facility] MCHC (RBC) [Mass/Vol] 29.7 g/dL 32-36 [facility] Nucleated RBC/100 WBC (Bld) [Ratio] 0 % 0-[address] [facility] Platelets (Bld) [#/Vol] 106 10*3/uL 150-[address] [facility] No Panel InformationOrdered By: Kaushal Wright on 07-16-2023 Folate 11.70 ng/mL 3.1-55.[address] [facility] No Panel InformationOrdered By: Lang Atkinson on 07-16-2023 Troponin I High Sensitivity 62 pg/mL 3.0-54.[address] [facility] Comment on above: Please Note: New Stephanie t Units and Gender Specific Reference Ranges. For more information see Policy Stat Procedure [facility] High Sensitivity Troponin (TNIH) and attachments. Estimated Creatinine Clearance Calc 81.54 ml/min [facility] Estimated GFR (MDRD) Amer 144 mL/min >[address] [facility] Comment on above: GFR Calc Estimated GFR (MDRD) Non-Af Amer 119 mL/min >[address] [facility] Comment on above: Non- GFR Calc Platelet mean volume [facility] (Bld) [Entitic vol]Ordered By: Lang Atkinson on 07-16-2023 Platelet mean volume (Bld) [Entitic vol] 10.2 fL 6.2-12.[address] [facility] RBC Auto (Bld) [#/Vol]Ordere d By: Lang Atkinson on 07-16-2023 RBC (Bld) [#/Vol] 3.66 10*6/uL 4.2-5.[address] [facility] Respiratory pathogens DNA an d RNA panel REZA+probe (Resp)Ordered By: Kaushal Wright on 07-16-2023 Respiratory Panel (PCR) Influenzae B [facility] Respiratory Panel (PCR) Influenzae B [facility] Serum or plasma calcium sona urement (mass/volume)Ordered By: Lang Atkinson on 07-16-2023 Calcium [Mass/Vol] 8.3 mg/dL 8.5-10.1 [facility] Serum or plasma creatinine m easurement (mass/volume)Ordered By: Lang Atkinson on 07-16-2023 Creatinine [Mass/Vol] 0.61 mg/dL 0.55-1.02 [facility] Comment on above: The validity of the calculated GFR & GFRAA in patients over 70 years has not been determined. Clinical correlation is essential. Serum or plasma urea nitroge n measurement (mass/volume)Ordered By: Lang Atkinson on 07-16-2023 Urea nitrogen [Mass/Vol] 9 mg/dL 7-[address] [facility] Thin prep Papanicolaou smear with manual screeningOrdered By: Lang Atkinson on 07-16-2023 Thin prep Papanicolaou smear with manual screening 3.0 g/dL 3.2-5.[address] [facility] Thin prep Papanicolaou smear with manual screening 30 U/L 15-[address] [facility] Thin prep Papanicolaou smear with manual screening 3 5-[address] [facility] Laboratory - Microbiology an d Antimicrobial susceptibilityOrdered By: Bob Woods on 07-13-2023 SARS-CoV-2 (COVID-19) RNA REZA+probe Ql (Unsp spec) Influenzae B [facility] SARS-CoV-2 (COVID-19) RNA REZA+probe Ql (Unsp spec) Influenzae B [facility] CBC W Auto Differential pane l (Bld)on 05-01-2023 Basophils (Bld) [#/Vol] 0.04 10*3/uL <0.11 k/uL [facility] Basophils/100 WBC (Bld) 1.3 % C [facility] Differential cell count method Nom (Bld) Auto [facility] Eosinophils (Bld) [#/Vol] 0.03 10*3/uL <0.46 k/uL [facility] Eosinophils/100 WBC (Bld) 1.0 % [facility] Erythrocyte distribution width (RBC) [Ratio] 17.3 % High 11.5 - 15.0 % [facility] Hematocrit (Bld) [Volume fraction] 33.8 % Low 36.0 - 46.0 % [facility] Hemoglobin (Bld) [Mass/Vol] 10.1 g/dL Low 11.5 - 15.5 g/dL [facility] Immature granulocytes (Bld) [#/Vol] <0.10 k/uL [facility] Immature granulocytes/100 WBC (Bld) 0.3 % [facility] Lymphocytes (Bld) [#/Vol] 1.33 10*3/uL 1.00 - 4.00 k/uL [facility] Lymphocytes/100 WBC (Bld) 44.8 % [facility] MCH (RBC) [Entitic mass] 23.3 pg Low 26. 0 - 34.0 pg [facility] MCHC (RBC) [Mass/Vol] 29.9 g/dL Low 30.5 - 36.0 g/dL [facility] MCV (RBC) [Entitic vol] 77.9 fL Low 80.0 - 100.0 fL [facility] Monocytes (Bld) [#/Vol] 0.58 10*3/uL <0.87 k/uL [facility] Monocytes/100 WBC (Bld) 19.5 % C [facility] Neutrophils (Bld) [#/Vol] 0.98 10*3/uL Low 1.45 - 7.50 k/uL [facility] Neutrophils/100 WBC (Bld) 33.1 % [facility] Nucleated RBC (Bld) [#/Vol] <0.01 k/uL [facility] Nucleated RBC/100 WBC (Bld) [Ratio] 0.0 /100 WBC [facility] Platelet mean volume (Bld) [Entitic vol] 10.3 fL 9.0 - 12.7 fL [facility] Platelets (Bld) [#/Vol] 267 10*3/uL 150 - 400 k/uL [facility] RBC (Bld) [#/Vol] 4.34 10*6/uL 3.90 - 5.2 0 m/uL [facility] WBC (Bld) [#/Vol] 2.97 10*3/uL Low 3.70 - 11. 00 k/uL [facility] STREP A MOLECULAR (POC)on Procedural Control Valid [facility] Strep A (POCT) Negative Negative [facility] UA DIP, URINE (POC)on 2022 BILIRUBIN UA (POCT) Negative Negative [facility] CLARITY UA (POCT) Cloudy [facility] COLOR UA (POCT) Other [facility] GLUCOSE UA (POCT) Negative Negative mg/dL [facility] Hemoglobin Ql (U) Negative [facility] KETONE UA (POCT) Negative Negative mg/dL [facility] LEUKOCYTES UA (POCT) Trace Abnormal Negative [facility] NITRITE UA (POCT) Negative Negative [facility] PH UA (POCT) 7.0 4.5 - 8.0 [facility] Protein Ql (U) Negative Negative mg/[facility] SPECIFIC GRAVITY UA (POCT) 1.020 1.005 - 1.030 [facility] UROBILINOGEN UA (POCT) 0.2 E.U./dL G[facility] l E.U./dL [facility] STREP A MOLECULAR (POC)on Procedural Control Valid [facility] Strep A (POCT) Negative Negative [facility] No Panel Informationon 03-14 [facility] Absolute lymphocyte counton 03-02-2022 Lymphocytes Auto (Unsp spec) [#/Vol] 0.98 10*3/uL 0.83-4.[address] [facility] Work Phone: Basophil percentageon 2021 Basophil percentage >100 SEEN /hpf 0-5 [facility] Work Phone: Lactate [Moles/Vol] 0.8 mmol/L 0.4-2.[address] [facility] Work Phone: Basophils/100 WBC (Bld) 0.2 % 0-1 [facility] Work Phone: Bilirubin [Mass/Vol] 0.20 mg/dL 0.20-1.00 [facility] Work Phone: Comment on above: For patients on eltr ombopag therapy, use of Dimension [place] TBIL is not recommended. Chloride [Moles/Vol] 108 mmol/L 98-107 [facility] Work Phone: Eosinophils/100 WBC (Bld) 0.2 % 0-[address] [facility] Work Phone: Glucose [Mass/Vol] 88 mg/dL 74-106 [facility] Work Phone: Neutrophils (Bld) [#/Vol] 6.8 10*3/uL 2.0-7.[address] [facility] Work Phone: Neutrophils/100 WBC (Bld) 79.2 % 47-[address] [facility] Work Phone: Potassium [Moles/Vol] 3.9 mmol/L 3.5-5.1 [facility] Work Phone: Comment on above: Slight Hemolysis, Re sult may be falsely increased. Protein [Mass/Vol] 7.1 g/dL 6.4-8.2 [facility] Work Phone: [phone] Sodium [Moles/Vol] 141 mmol/L 136-145 [facility] Work Phone: [phone] WBC (Bld) [#/Vol] 8.5 10*3/uL 4.4-11.0 [facility] Work Phone: [phone] Beta hCG serum qualon 2021 Beta HCG ( test) Ql Negative [facility] Work Phone: [phone] Bilirubin Test strip Ql (U)o n 03-02-2022 Bilirubin Ql (U) Negative Negative [facility] Work Phone: [phone] Blood erythrocytes count (nu mber/volume)on 03-02-2022 RBC (Bld) [#/Vol] 4.16 10*6/uL 4.2-5.[address] [facility] Work Phone: [phone] Blood hemoglobin measurement (mass/volume)on 03-02-2022 Hemoglobin (Bld) [Mass/Vol] 11.0 g/dL 12.0-15.[address] [facility] Work Phone: [phone] Blood lymphocytes/100 leukoc yteson 03-02-2022 Lymphocytes/100 WBC (Bld) 11.5 % 19-[address] [facility] Work Phone: [phone] Blood monocytes/100 leukocyt eson 03-02-2022 Monocytes/100 WBC (Bld) 8.7 % 0-10 [facility] Work Phone: [phone] Blood platelet mean volumeon 03-02-2022 Platelet mean volume (Bld) [Entitic vol] 10.1 fL 6.2-12.[address] [facility] Work Phone: [phone] Determination of erythrocyte mean corpuscular volume (MCV)on 03-02-2022 MCV (RBC) [Entitic vol] 83.2 fL 81-99 [facility] Work Phone: [phone] Hematocrit Auto (Bld) [Volum e fraction]on 03-02-2022 Hematocrit (Bld) [Volume fraction] 34.6 % 37-[address] [facility] Work Phone: [phone] INR in Blood by Coagulation assayon 03-02-2022 INR Coag (Bld) [Relative time] 1.1 {INR} [facility] Work Phone: Ketones Test strip Ql (U)on 03-02-2022 Ketones Ql (U) 5 mg/dl Negative [facility] Work Phone: Laboratory - Chemistry and C hemistry - challengeon 03-02-2022 ALP [Catalytic activity/Vol] 55 U/L 45-[address] [facility] Work Phone: ALT [Catalytic activity/Vol] 23 U/L 13-[address] [facility] Work Phone: CO2 [Moles/Vol] 27.0 mmol/L 21.0-32.[address] [facility] Work Phone: Globulin (S) [Mass/Vol] 3.5 g/dL 2.2-4.2 [facility] Work Phone: Lipase [Catalytic activity/Vol] 136 U/L 73-[address] [facility] Work Phone: Urea nitrogen/Creatinine [Mass ratio] 15.0 mg/mg 10-[address] [facility] Work Phone: Laboratory - Coagulationon 0 03-02-2022 aPTT Coag (Bld) [Time] 29.9 s 24.1-[facility].2 [facility] Work Phone: PT Coag (PPP) [Time] 13.7 s 11.7-14.9 [facility] Work Phone: Laboratory - Hematology and Cell countson 03-02-2022 Erythrocyte distribution width (RBC) [Entitic vol] 38.7 fL 35.1-43.[address] [facility] Work Phone: Erythrocyte distribution width (RBC) [Ratio] 12.8 % 11.6-14.[address] [facility] Work Phone: Immature granulocytes/100 WBC (Bld) 0.200 % 0.0-0.[address] [facility] Work Phone: [phone] Comment on above: IG% - Immature Granu locytes (promyelocytes, myelocytes and metamyelocytes) > 1% indicates that a LEFT SHIFT is Present. MCH (RBC) [Entitic mass] 26.4 pg 27.0-32.[address] [facility] Work Phone: [phone] Nucleated RBC/100 WBC (Bld) [Ratio] 0 % 0-[address] [facility] Work Phone: [phone] MCHC Auto (RBC) [Mass/Vol]on 03-02-2022 MCHC (RBC) [Mass/Vol] 31.8 g/dL 32-36 [facility] Work Phone: [phone] Mucus LM Ql (Urine sed)on Mucus Ql (Urine sed) 0 SEEN /hpf [facility] Work Phone: [phone] Nitrite Test strip Ql (U)on 03-02-2022 Nitrite Ql (U) Negative Negative [facility] Work Phone: [phone] No Panel Informationon 03-02 Estimated Creatinine Clearance Calc 74.92 ml/min [facility] Work Phone: [phone] Estimated GFR (MDRD) Amer 133 mL/min >[address] [facility] Work Phone: [phone] Comment on above: GFR Calc Estimated GFR (MDRD) Non-Af Amer 110 mL/min >[address] [facility] Work Phone: [phone] Comment on above: Non- GFR Calc Platelets bldon 03-02-2022 Platelets (Bld) [#/Vol] 197 10*3/uL 150-[address] [facility] Work Phone: [phone] Protein Test strip Ql (U)on 03-02-2022 Protein Ql (U) 100 mg/dl Negative [facility] Work Phone: [phone] Serum or plasma albumin sona urement (mass/volume)on 03-02-2022 Albumin [Mass/Vol] 3.6 g/dL 3.2-5.0 [facility] Work Phone: Serum or plasma albumin/glob ulin mass ratioon 03-02-2022 Albumin/Globulin [Mass ratio] 1.0 {ratio} 0.9-2.[address] [facility] Work Phone: Serum or plasma calcium sona urement (mass/volume)on 03-02-2022 Calcium [Mass/Vol] 9.2 mg/dL 8.5-10.1 [facility] Work Phone: [phone] Serum or plasma creatinine m easurement (mass/volume)on 03-02-2022 Creatinine [Mass/Vol] 0.67 mg/dL 0.55-1.02 [facility] Work Phone: Comment on above: The validity of the calculated GFR & GFRAA in patients over 70 years has not been determined. Clinical correlation is essential. Serum or plasma urea nitroge n measurement (mass/volume)on 03-02-2022 Urea nitrogen [Mass/Vol] 10 mg/dL 7-[address] [facility] Work Phone: Squamous epithelial cells de tection in urine sediment by light microscopyon 03-02-2022 Epithelial cells.squamous LM Ql (Urine sed) 0 SEEN /hpf 5-[address] [facility] Work Phone: Thin prep Papanicolaou smear with manual screeningon 03-02-2022 Thin prep Papanicolaou smear with manual screening 17 U/L 15-[address] [facility] Work Phone: Comment on above: Slight Hemolysis, Re sult may be falsely increased. Thin prep Papanicolaou smear with manual screening 6 5-[address] [facility] Work Phone: Urine blood detectionon 02-11 RBC Ql (U) 150 /ul Negative [facility] Work Phone: RBC Ql (U) 0 SEEN /hpf 0-[address] [facility] Work Phone: [phone] Urine clarityon 03-02-2022 Clarity (U) Cloudy Clear [facility] Work Phone: Urine color determinationon 03-02-2022 Color (U) Yellow Yellow [facility] Work Phone: Urine glucose detectionon Glucose Ql (U) Normal mg/dl Normal [facility] Work Phone: Urine leukocyte esterase det ection by dipstickon 03-02-2022 Leukocyte esterase Test strip Ql (U) 500 /ul Negative [facility] Work Phone: Urine pHon 03-02-2022 pH (U) 8.0 [pH] 5.0 - 8.[address] [facility] Work Phone: Urine sediment bacteria coun t by microscopy (number/high power field)on 03-02-2022 Bacteria LM.HPF (Urine sed) [#/Area] 3 /[HPF] None Seen [facility] Work Phone: Urine specific gravity measu rementon 03-02-2022 Specific gravity (U) [Rel density] 1.015 1.002-1.[address] [facility] Work Phone: Urobilinogen Auto test strip Ql (U)on 03-02-2022 Urobilinogen Ql (U) Normal mg/dl Normal [facility] Work Phone: CBC panel Auto (Bld)on 09-06 Erythrocyte distribution width (RBC) [Ratio] 12.1 % 11.5 - 15.0 % [facility] Hematocrit (Bld) [Volume fraction] 38.6 % 36.0 - 46.0 % [facility] Hemoglobin (Bld) [Mass/Vol] 12.2 g/dL 11.5 - 15.5 g/dL [facility] MCH (RBC) [Entitic mass] 27.7 pg 26. 0 - 34.0 pg [facility] MCHC (RBC) [Mass/Vol] 31.6 g/dL 30.5 - 36.0 g/dL [facility] MCV (RBC) [Entitic vol] 87.7 fL 80.0 - 100.0 fL [facility] Nucleated RBC (Bld) [#/Vol] 10*3/uL <0.01 k/uL [facility] Platelet mean volume (Bld) [Entitic vol] 9.9 fL 9.0 - 12.7 fL [facility] Platelets (Bld) [#/Vol] 212 10*3/uL 150 - 400 k/uL [facility] RBC (Bld) [#/Vol] 4.40 10*6/uL 3.90 - 5.2 0 m/uL [facility] WBC (Bld) [#/Vol] 4.52 10*3/uL 3.70 - 11. 00 k/uL [facility] UA DIP, URINE (POC)on 2021 BILIRUBIN UA (POCT) Negative Negative [facility] CLARITY UA (POCT) Clear [facility] COLOR UA (POCT) Yellow [facility] GLUCOSE UA (POCT) Negative Negative mg/dL [facility] HEMOGLOBIN/BLOOD UA (POCT) Negative Negative [facility] KETONE UA (POCT) Negative Negative mg/dL [facility] LEUKOCYTES UA (POCT) Negative Negative [facility] NITRITE UA (POCT) Negative Negative [facility] PH UA (POCT) 5.5 4.5 - 8.0 [facility] Protein Ql (U) Negative Negative mg/dL [facility] SPECIFIC GRAVITY UA (POCT) 1.025 1.005 - 1.030 [facility] UROBILINOGEN UA (POCT) 0.2 E.U./dL Gema l E.U./dL [facility] Cris 12-07-2018 Ferritin [Mass/Vol] 2 ng/mL Low 8-252 [facility] ([place]) Comment on above: Performed By: #### C PARTH FOUNTAIN, ANEU #### [address] [address] #### BMP, HCGQ, GFR #### [place] [id number] [place] [address] .Auto Diffon 12-06-2018 Ammonia (P) [Mass/Vol] 0.50 10 3/mcL Normal 0.15-1.00 [facility] ([place]) Comment on above: Performed By: #### C BCPARTH, ANEU #### [address] [address] #### BMP, HCGQ, GFR #### [address] [address] Basophils (Bld) [#/Vol] 0.10 10 3/mcL Normal 0.00-0.19 [facility] ([place]) Comment on above: Performed By: #### C BC, ADIFF, ANEU #### [address] [address] #### BMP, HCGQ, GFR #### [address] [address] Basophils/100 WBC (Bld) 1.3 % Normal 0.0-2.5 [facility] ([place]) Comment on above: Performed By: #### C BC, ADIFF, ANEU #### [place] [address] #### BMP, HCGQ, GFR #### [address] [address] Eosinophils (Bld) [#/Vol] 0.00 10 3/mcL Normal 0.00-0.40 [facility] ([place]) Comment on above: Performed By: #### C BC, ADIFF, ANEU #### [place] [address] #### BMP, HCGQ, GFR #### [address] [address] Eosinophils/100 WBC (Bld) 1.0 % Normal 0.0-7.0 [facility] ([place]) Comment on above: Performed By: #### C BC, ADIFF, ANEU #### [place] [address] #### BMP, HCGQ, GFR #### [address] [address] Lymphocytes (Bld) [#/Vol] 2.20 10 3/mcL Normal 0.77-3.85 [facility] ([place]) Comment on above: Performed By: #### C BC, ADIFF, ANEU #### [place] [address] #### BMP, HCGQ, GFR #### [address] [address] Lymphocytes/100 WBC (Bld) 47.9 % Normal 10.0-50.0 [facility] ([place]) Comment on above: Performed By: #### C BC, ADIFF, ANEU #### [address] [address] #### BMP, HCGQ, GFR #### [address] [address] Monocytes/100 WBC (Bld) 10.1 % Normal 1.7-13.0 [facility] ([place]) Comment on above: Performed By: #### C BC, ADIFF, ANEU #### [place] [address] #### BMP, HCGQ, GFR #### [address] [address] Neutrophils/100 WBC (Bld) 39.7 % Normal 37.0-80.0 [facility] ([place]) Comment on above: Performed By: #### C BC, ADIFF, ANEU #### [place] [address] #### BMP, HCGQ, GFR #### [address] [address] .NEUABSon 12-06-2018 Neutrophils (Bld) [#/Vol] 1.80 10 3/mcL Low 2.85-6.16 [facility] ([place]) Comment on above: Performed By: #### C BC, ADIFF, ANEU #### [place] [address] #### BMP, HCGQ, GFR #### [address] [address] CBCon 12-06-2018 Erythrocyte distribution width (RBC) [Ratio] 17.7 % High 11.5-14.5 [facility] ([place]) Comment on above: Performed By: #### C BC, ADIFF, ANEU #### [place] [address] #### BMP, HCGQ, GFR #### [place] [address] Hematocrit (Bld) [Volume fraction] 31.6 % Low 37.0-47.0 [facility] ([place]) Comment on above: Performed By: #### C ESSIE, ADIFF, ANEU #### [address] [address] #### BMP, HCGQ, GFR #### [place] [address] Hemoglobin (Bld) [Mass/Vol] 9.9 G/dL Low 12.0-16.0 [facility] ([place]) Comment on above: Performed By: #### C ESSIE, PARTH, ANEU #### [place] [address] #### BMP, HCGQ, GFR #### [place] [address] MCH (RBC) [Entitic mass] 22.2 pg Low 27.0-31.2 [facility] ([place]) Comment on above: Performed By: #### C BC, ADIFF, ANEU #### [place] [address] #### BMP, HCGQ, GFR #### [place] [address] MCHC (RBC) [Mass/Vol] 31.2 G/dL Low 33.0-37.0 [facility] ([place]) Comment on above: Performed By: #### C ESSIE, ADIFF, ANEU #### [place] [address] #### BMP, HCGQ, GFR #### [place] [address] MCV (RBC) [Entitic vol] 70.9 fL Low 80.0-94.0 [facility] ([place]) Comment on above: Performed By: #### C ESSIE, ADIFF, ANEU #### [place] [address] #### BMP, HCGQ, GFR #### [address] [address] Platelet mean volume (Bld) [Entitic vol] 8.0 fL Normal 7.4-10.4 [facility] ([place]) Comment on above: Performed By: #### C BC, ADIFF, ANEU #### [place] [address] #### BMP, HCGQ, GFR #### [place] [address] Platelets (Bld) [#/Vol] 250 10 3/mcL Normal 130-400 [facility] ([place]) Comment on above: Performed By: #### C BC, ADIFF, ANEU #### [place] [address] #### BMP, HCGQ, GFR #### [place] [address] RBC (Bld) [#/Vol] 4.45 10 6/mcL Normal 4.20-5.40 [facility] ([place]) Comment on above: Performed By: #### C BC, ADIFF, ANEU #### [place] [address] #### BMP, HCGQ, GFR #### [place] [address] WBC (Bld) [#/Vol] 4.60 10 3/mcL Normal 4.60-10.80 [facility] ([place]) Comment on above: Performed By: #### C BC, ADIFF, ANEU #### [place] [address] #### BMP, HCGQ, GFR #### [place] [address] IBCon 12-06-2018 TIBC 456 mcg/dL High 250-450 [facility] ([place]) Comment on above: Performed By: #### C BC, ADIFF, ANEU #### [place] [address] #### BMP, HCGQ, GFR #### [place] [address] HHon 11-09-2018 Hematocrit (Bld) [Volume fraction] 28.4 % Low 37.0-47.0 [facility] ([place]) Comment on above: Performed By: #### PARTH SOTO, ANEU #### [place] [address] #### BMP, HCGQ, GFR #### [place] [address] Hemoglobin (Bld) [Mass/Vol] 8.9 G/dL Low 12.0-16.0 [facility] ([place]) Comment on above: Performed By: #### C PARTH [place]OUNT[place], ANEU #### [place] [address] #### BMP, HCGQ, GFR #### [place] [address] .Auto Diffon 09-28-2018 Ammonia (P) [Mass/Vol] 0.30 10 3/mcL Normal 0.15-1.00 [facility] ([place]) Comment on above: Performed By: #### C PARTH FOUNTAIN, ANEU #### [place] [address] #### BMP, HCGQ, GFR #### [place] [address] Basophils (Bld) [#/Vol] 0.00 10 3/mcL Normal 0.00-0.19 [facility] ([place]) Comment on above: Performed By: #### PARTH SOTO, ANEU #### [place] [address] #### BMP, HCGQ, GFR #### [place] [address] Basophils/100 WBC (Bld) 0.7 % Normal 0.0-2.5 A [facility] ([place]) Comment on above: Performed By: #### Alyse FOUNTAIN, ADMICHI, ANEU #### [place] [address] #### BMP, HCGQ, GFR #### [address] [address] Eosinophils (Bld) [#/Vol] 0.10 10 3/mcL Normal 0.00-0.40 [facility] ([place]) Comment on above: Performed By: #### C BC, ADIFF, ANEU #### [address] [address] #### BMP, HCGQ, GFR #### [address] [address] Eosinophils/100 WBC (Bld) 1.7 % Normal 0.0-7.0 [facility] ([place]) Comment on above: Performed By: #### C BC, ADIFF, ANEU #### [address] [address] #### BMP, HCGQ, GFR #### [address] [address] Lymphocytes (Bld) [#/Vol] 1.50 10 3/mcL Normal 0.77-3.85 [facility] ([place]) Comment on above: Performed By: #### C BC, ADIFF, ANEU #### [address] [address] #### BMP, HCGQ, GFR #### [address] [address] Lymphocytes/100 WBC (Bld) 41.0 % Normal 10.0-50.0 [facility] ([place]) Comment on above: Performed By: #### C BC, ADIFF, ANEU #### [place] [address] #### BMP, HCGQ, GFR #### [address] [address] Monocytes/100 WBC (Bld) 7.0 % Normal 1.7-13.0 [facility] ([place]) Comment on above: Performed By: #### C BC, ADIFF, ANEU #### [address] [address] #### BMP, HCGQ, GFR #### [address] [address] Neutrophils/100 WBC (Bld) 49.6 % Normal 37.0-80.0 [facility] ([place]) Comment on above: Performed By: #### PARTH SOTO, ANEU #### [address] [address] #### BMP, HCGQ, GFR #### [address] [address] .NEUABSon 09-28-2018 Neutrophils (Bld) [#/Vol] 1.90 10 3/mcL Low 2.85-6.16 [facility] ([place]) Comment on above: Performed By: #### PARTH SOTO, ANEU #### [place] [address] #### BMP, HCGQ, GFR #### [address] [address] CBCon 09-28-2018 Erythrocyte distribution width (RBC) [Ratio] 13.9 % Normal 11.5-14.5 [facility] ([place]) Comment on above: Performed By: #### C KERRIE FOUNTAINIFF, ANEU #### [place] [address] #### BMP, HCGQ, GFR #### [place] [address] Hematocrit (Bld) [Volume fraction] 19.5 % Low 37.0-47.0 [facility] ([place]) Comment on above: Performed By: #### KERRIE SOTOIFF, ANEU #### [place] [address] #### BMP, HCGQ, GFR #### [address] [address] Hemoglobin (Bld) [Mass/Vol] 6.8 G/dL Critically abnormal 12.0-16.0 [facility] ([place]) Comment on above: Performed By: #### Alyse FOUNTAIN ADIFF, ANEU #### [place] [address] #### BMP, HCGQ, GFR #### [address] [address] MCH (RBC) [Entitic mass] 30.8 pg Normal 27.0-31.2 [facility] ([place]) Comment on above: Performed By: #### C PARTH FOUNTAIN, ANEU #### [address] [address] #### BMP, HCGQ, GFR #### [place] [address] MCHC (RBC) [Mass/Vol] 35.0 G/dL Normal 33.0-37.0 [facility] ([place]) Comment on above: Performed By: #### C PARTH FOUNTAIN, ANEU #### [place] [address] #### BMP, HCGQ, GFR #### [place] [address] MCV (RBC) [Entitic vol] 88.2 fL Normal 80.0-94.0 A [facility] ([place]) Comment on above: Performed By: #### C PARTH FOUNTAIN, ANEU #### [place] [address] #### BMP, HCGQ, GFR #### [place] [address] Platelet mean volume (Bld) [Entitic vol] 7.3 fL Low 7.4-10.4 [facility] ([place]) Comment on above: Performed By: #### C PARTH FOUNTAIN, ANEU #### [place] [address] #### BMP, HCGQ, GFR #### [place] [address] Platelets (Bld) [#/Vol] 308 10 3/mcL Normal 130-400 [facility] ([place]) Comment on above: Performed By: #### C BC, ADIFF, ANEU #### [place] [address] #### BMP, HCGQ, GFR #### [place] [address] RBC (Bld) [#/Vol] 2.21 10 6/mcL Low 4.20-5.40 [facility] ([place]) Comment on above: Performed By: #### C BC, ADIFF, ANEU #### [address] [address] #### BMP, HCGQ, GFR #### [address] [address] WBC (Bld) [#/Vol] 3.80 10 3/mcL Low 4.60-10.80 [facility] ([place]) Comment on above: Performed By: #### C BC, ADIFF, ANEU #### [place] [address] #### BMP, HCGQ, GFR #### [place] [address] Gel ABOon 09-28-2018 ABO/Rh Interp Positive [facility] ([place]) Comment on above: Performed By: #### C BC, ADIFF, ANEU #### [place] [address] #### BMP, HCGQ, GFR #### [place] [address] Gel ABSon 09-28-2018 Antibody Screen Gel Negative Normal [facility] ([place]) Comment on above: Performed By: #### C BC, ADIFF, ANEU #### [place] [address] #### BMP, HCGQ, GFR #### [place] [address] HCGQon 09-28-2018 hCG, quantitative 276.0 mIU/mL Normal [facility] ([place]) Comment on above: Result Comment: HCG Quantitative 3 Weeks Gestation mIU/mL 5.0 to 12.0 HCG Quantitative 4 Weeks Gestation mIU/mL 10.0 to 708.0 HCG Quantitative 5 Weeks Gestation mIU/mL 217.0 to 8245.0 HCG Quantitative 6 Weeks Gestation mIU/mL 152.0 to 32,177.0 HCG Quantitative 7 Weeks Gestation mIU/mL 4059.0 to 153,767.0 HCG Quantitative 8 Weeks Gestation mIU/mL 31,366.0 to 149,094.0 HCG Quantitative 9 Weeks Gestation mIU/mL 59,109.0 to 135,901.0 HCG Quantitative 10 Weeks Gestation mIU/mL 44,186.0 to 170,409.0 HCG Quantitative 12 Weeks Gestation mIU/mL 27,107.0 to 201,615.0 HCG Quantitative 14 Weeks Gestation mIU/mL 24,302.0 to 93,646.0 Performed By: #### C BC, ADIFF, ANEU #### [address] [address] #### BMP, HCGQ, GFR #### [place] [id number] PREGSon 09-28-2018 test (s) Positive Normal [facility] ([place]) Comment on above: Performed By: #### C BC, ADIFF, ANEU #### [place] [address] #### BMP, HCGQ, GFR #### [place] [address] test (s) int HCG detected. [facility] ([place]) Comment on above: Performed By: #### C BC, ADIFF, ANEU #### [place] [address] #### BMP, HCGQ, GFR #### [place] [id number] US TRANSVAGINAL NON OBon US TRANSVAGINAL NON OB ORIGINAL Endovaginal pelvic ultrasound Doppler interrogation is performed, including color Doppler interrogation and waveform analysis. HISTORY:posthemorrha gic anemia . Status post miscarriage, continued cramping. COMPARISON: None Uterus measures 7.9 x 4 x 4.1 cm. The endometrium is homogeneous and measures 2 mm in thickness. There is no focal endometrial mass lesion identified, and color Doppler interrogation shows no abnormal vascularity. No myometrial masses are seen. RIGHT ovary 1.8 x 1.1 x 1.8 cm, LEFT ovary 1.5 x 1.1 x 1.2 cm. Ovarian Doppler interrogation is normal. There are no ovarian or adnexal masses present. A small amount of free pelvic fluid is noted within the cul-de-sac. This may be physiologic. IMPRESSION: 1. No endometrial abnormality seen. No evidence for retained products of conception. 2. Small amount of free pelvic fluid which could be physiologic. Interpreted By: Wilbert Polanco MD Preliminary Report By: Wilbert Polanco MD Electronically Signed By: Wilbert Polanco MD Dictated Date: 09/28/2018 1:28:52 PM Prelim Date: 09/28/2018 1:28:52 PM Sign Date: 09/28/2018 1:30:52 PM Normal [facility] ([place]) .Auto Diffon 09-22-2018 Ammonia (P) [Mass/Vol] 0.40 10 3/mcL Normal 0.15-1.00 [facility] ([place]) Comment on above: Performed By: #### C PARTH FOUNTAIN, ANEU #### [place] [address] #### BMP, HCGQ, GFR #### [address] [address] Basophils (Bld) [#/Vol] 0.00 10 3/mcL Normal 0.00-0.19 [facility] ([place]) Comment on above: Performed By: #### C BCPATRH ANEU #### [place] [address] #### BMP, HCGQ, GFR #### [address] [address] Basophils/100 WBC (Bld) 0.4 % Normal 0.0-2.5 A [facility] ([place]) Comment on above: Performed By: #### C BC, ADIFF, ANEU #### [place] [address] #### BMP, HCGQ, GFR #### [address] [address] Eosinophils (Bld) [#/Vol] 0.00 10 3/mcL Normal 0.00-0.40 [facility] ([place]) Comment on above: Performed By: #### C BC, ADIFF, ANEU #### [address] [address] #### BMP, HCGQ, GFR #### [address] [address] Eosinophils/100 WBC (Bld) 0.7 % Normal 0.0-7.0 [facility] ([place]) Comment on above: Performed By: #### C BC, ADIFF, ANEU #### [place] [address] #### BMP, HCGQ, GFR #### [address] [address] Lymphocytes (Bld) [#/Vol] 1.50 10 3/mcL Normal 0.77-3.85 [facility] ([place]) Comment on above: Performed By: #### C BC, ADIFF, ANEU #### [place] [address] #### BMP, HCGQ, GFR #### [address] [address] Lymphocytes/100 WBC (Bld) 31.1 % Normal 10.0-50.0 [facility] ([place]) Comment on above: Performed By: #### C BC, ADIFF, ANEU #### [place] [address] #### BMP, HCGQ, GFR #### [address] [address] Monocytes/100 WBC (Bld) 7.4 % Normal 1.7-13.0 A [facility] ([place]) Comment on above: Performed By: #### C BC, ADIFF, ANEU #### [address] [address] #### BMP, HCGQ, GFR #### [address] [address] Neutrophils/100 WBC (Bld) 60.4 % Normal 37.0-80.0 [facility] ([place]) Comment on above: Performed By: #### C BC, ADIFF, ANEU #### [address] [address] #### BMP, HCGQ, GFR #### [address] [address] .GFRon 09-22-2018 GFR 117 ml/min/1.73sqm Normal [facility] ([place]) Comment on above: Result Comment: GFR Population mean for , Non- Americans Ages 20-29 = 116 mL/min/1.73 sq.m. Ages 30-39 = 107 mL/min/1.73 sq.m. Ages 40-49 = 99 mL/min/1.73 sq.m. Ages 50-59 = 93 mL/min/1.73 sq.m. Ages 60-69 = 85 mL/min/1.73 sq.m. Ages 70+ = 75 mL/min/1.73 sq.m. Chronic Kidney Disease: Less than 60 mL/min/1.73 square meters End Stage Renal Disease: Less than 15 mL/min/1.73 square meters Performed By: #### C BC, ADIFF, ANEU #### [place] [address] [address] #### BMP, HCGQ, GFR #### [address] [address] GFR Non- 96 ml/min/1.73sqm Normal [facility] ([place]) Comment on above: Result Comment: GFR Population mean for , Non- Americans Ages 20-29 = 116 mL/min/1.73 sq.m. Ages 30-39 = 107 mL/min/1.73 sq.m. Ages 40-49 = 99 mL/min/1.73 sq.m. Ages 50-59 = 93 mL/min/1.73 sq.m. Ages 60-69 = 85 mL/min/1.73 sq.m. Ages 70+ = 75 mL/min/1.73 sq.m. Chronic Kidney Disease: Less than 60 mL/min/1.73 square meters End Stage Renal Disease: Less than 15 mL/min/1.73 square meters Performed By: #### C BC, ADIFF, ANEU #### [address] [address] #### BMP, HCGQ, GFR #### [address] [address] .NEUABSon 09-22-2018 Neutrophils (Bld) [#/Vol] 3.00 10 3/mcL Normal 2.85-6.16 [facility] ([place]) Comment on above: Performed By: #### C BC, ADIFF, ANEU #### [address] [address] #### BMP, HCGQ, GFR #### [place] [address] ABO/Rh Retype Gelon 09-23-19 19 ABO/Rh Retype Gel Positive [facility] ([place]) Comment on above: Order Comment: Order ed by Discern Performed By: #### A ISIDRA #### [address] [address] BMPon 09-22-2018 Calcium [Mass/Vol] 9.6 mg/dL Normal 8.4-10.2 [facility] ([place]) Comment on above: Performed By: #### C BC, ADIFF, ANEU #### [place] [address] #### BMP, HCGQ, GFR #### [place] [address] Chloride [Moles/Vol] 105 mmol/L Normal 98-107 [facility] ([place]) Comment on above: Performed By: #### C BC, ADIFF, ANEU #### [place] [address] #### BMP, HCGQ, GFR #### [address] [address] CO2 [Moles/Vol] 26 mmol/L Normal 22-29 [facility] ([place]) Comment on above: Performed By: #### C BC, ADIFF, ANEU #### [place] [address] #### BMP, HCGQ, GFR #### [place] [id number] Creatinine [Mass/Vol] 0.72 mg/dL Normal 0.55-1.02 [facility] ([place]) Comment on above: Performed By: #### C BC, ADIFF, ANEU #### [address] [address] #### BMP, HCGQ, GFR #### [address] [address] Electrolyte Balance 12.0 mEq/L Normal [facility] ([place]) Comment on above: Performed By: #### C BC, ADIFF, ANEU #### [address] [address] #### BMP, HCGQ, GFR #### [address] [address] Glucose [Mass/Vol] 92 mg/dL Normal 70-105 [facility] ([place]) Comment on above: Performed By: #### C BC, ADIFF, ANEU #### [place] [address] #### BMP, HCGQ, GFR #### [address] [address] Potassium [Moles/Vol] 3.6 mmol/L Normal 3.5-5.1 [facility] ([place]) Comment on above: Performed By: #### C BC, ADIFF, ANEU #### [address] [address] #### BMP, HCGQ, GFR #### [address] [address] Sodium [Moles/Vol] 143 mmol/L Normal 136-145 [facility] ([place]) Comment on above: Performed By: #### C BC, ADIFF, ANEU #### [address] [address] #### BMP, HCGQ, GFR #### [address] [address] Urea nitrogen [Mass/Vol] 13 mg/dL Normal 7-18 [facility] ([place]) Comment on above: Performed By: #### C BC, ADIFF, ANEU #### [address] [address] #### BMP, HCGQ, GFR #### [address] [address] Urea nitrogen/Creatinine [Mass ratio] 18 ratio Normal 7-27 [facility] ([place]) Comment on above: Performed By: #### C BC, ADIFF, ANEU #### [address] [address] #### BMP, HCGQ, GFR #### [place] [address] CBCon 09-22-2018 Erythrocyte distribution width (RBC) [Ratio] 12.9 % Normal 11.5-14.5 [facility] ([place]) Comment on above: Performed By: #### C BC, ADIFF, ANEU #### [place] [address] #### BMP, HCGQ, GFR #### [place] [address] Hematocrit (Bld) [Volume fraction] 37.0 % Normal 37.0-47.0 [facility] ([place]) Comment on above: Performed By: #### C BC, ADIFF, ANEU #### [place] [address] #### BMP, HCGQ, GFR #### [place] [address] Hemoglobin (Bld) [Mass/Vol] 12.6 G/dL Normal 12.0-16.0 [facility] ([place]) Comment on above: Performed By: #### C BC, ADIFF, ANEU #### [place] [address] #### BMP, HCGQ, GFR #### [address] [address] MCH (RBC) [Entitic mass] 29.3 pg Normal 27.0-31.2 [facility] ([place]) Comment on above: Performed By: #### C BC, ADIFF, ANEU #### [place] [address] #### BMP, HCGQ, GFR #### [address] [address] MCHC (RBC) [Mass/Vol] 33.9 G/dL Normal 33.0-37.0 [facility] ([place]) Comment on above: Performed By: #### C BC, ADIFF, ANEU #### [place] [address] #### BMP, HCGQ, GFR #### [place] [address] MCV (RBC) [Entitic vol] 86.4 fL Normal 80.0-94.0 A [facility] ([place]) Comment on above: Performed By: #### C BC, ADIFF, ANEU #### [place] [address] #### BMP, HCGQ, GFR #### [place] [address] Platelet mean volume (Bld) [Entitic vol] 7.4 fL Normal 7.4-10.4 [facility] [facility] ([place]) Comment on above: Performed By: #### C BC, ADIFF, ANEU #### [place] [address] #### BMP, HCGQ, GFR #### [place] [address] Platelets (Bld) [#/Vol] 180 10 3/mcL Normal 130-400 [facility] ([place]) Comment on above: Performed By: #### C BC, ADIFF, ANEU #### [place] [address] #### BMP, HCGQ, GFR #### [place] [id number] RBC (Bld) [#/Vol] 4.29 10 6/mcL Normal 4.20-5.40 [facility] ([place]) Comment on above: Performed By: #### C BC, ADIFF, ANEU #### [place] [address] #### BMP, HCGQ, GFR #### [address] [address] WBC (Bld) [#/Vol] 4.90 10 3/mcL Normal 4.60-10.80 [facility] ([place]) Comment on above: Performed By: #### C [place] ANEU #### [address] [address] #### BMP, HCGQ, GFR #### [address] [address] Gel ABOon 09-22-2018 ABO/Rh Interp Positive [facility] ([place]) Comment on above: Performed By: #### AURA MENDOZA #### [address] [address] Gel ABSon 09-22-2018 Antibody Screen Gel Negative Normal [facility] ([place]) Comment on above: Performed By: #### AURA MENDOZA #### [address] [address] HCGQon 09-22-2018 hCG, quantitative 7177.0 mIU/mL Normal [facility] ([place]) Comment on above: Result Comment: HCG Quantitative 3 Weeks Gestation mIU/mL 5.0 to 12.0 HCG Quantitative 4 Weeks Gestation mIU/mL 10.0 to 708.0 HCG Quantitative 5 Weeks Gestation mIU/mL 217.0 to 8245.0 HCG Quantitative 6 Weeks Gestation mIU/mL 152.0 to 32,177.0 HCG Quantitative 7 Weeks Gestation mIU/mL 4059.0 to 153,767.0 HCG Quantitative 8 Weeks Gestation mIU/mL 31,366.0 to 149,094.0 HCG Quantitative 9 Weeks Gestation mIU/mL 59,109.0 to 135,901.0 HCG Quantitative 10 Weeks Gestation mIU/mL 44,186.0 to 170,409.0 HCG Quantitative 12 Weeks Gestation mIU/mL 27,107.0 to 201,615.0 HCG Quantitative 14 Weeks Gestation mIU/mL 24,302.0 to 93,646.0 Performed By: #### C [place], ANEU #### [address] [place] [address] #### BMP, HCGQ, GFR #### [facility] [address] [place] [address] PREGUon 09-17-2018 HCG ( test) Ql (U) Positive Normal [facility] ([place]) Comment on above: Performed By: #### P REGU #### [address] [address] test (u) int HCG detected. [facility] ([place]) Comment on above: Performed By: #### P REGU #### [address] [address] C Urineon 05-02-2017 C Urine Final Report: Moderate growth of Normal skin karen isolated Normal [facility] Comment on above: Performed By: #### 2 [id number] ####[place] Microbiology E[address]arlk[address]64 [place] [address] Auto Diffon 04-30-2017 Basophils Auto #/vol (Bld) 0.0 E3/mcL Normal 0.0-0.2 [facility] Comment on above: Order Comment: Order Added by Discern Expert. Performed By: #### 2 [id number] ####CAROLNIA YsbOzvc6335 [place] [address] Basophils/100 WBC Auto (Bld) 0.5 % Normal 0.0-2.0 [facility] Comment on above: Order Comment: Order Added by Discern Expert. Performed By: #### 2 [id number] ####[place] VgrGxao0302 [place] [address] Eos Absolute 0.0 E3/mcL Normal 0.0-0.7 [facility] Comment on above: Order Comment: Order Added by Discern Expert. Performed By: #### 2 [id number] ####[place] CeaGeyu[address] [place] [address] Eosinophils/100 leukocytes 0.1 % Normal 0.0-11.0 [facility] Comment on above: Order Comment: Order Added by Discern Expert. Performed By: #### 2 [id number] ####[place] FzaJbfk6778 [place] [address] Lymphocytes 0.6 E3/mcL Low 1.2-3.4 [facility] Comment on above: Order Comment: Order Added by Discern Expert. Performed By: #### 2 [id number] ####CAR[place]INA Palmao[address]25 [place] [address] Lymphocytes/100 leukocytes 9.8 % Low 20.0-55.0 [facility] Comment on above: Order Comment: Order Added by Discern Expert. Performed By: #### 2 [id number] ####CAR[place]INA [address] [place] [address] Amelia Absolute 0.5 E3/mcL Normal 0.0-0.7 [facility] Comment on above: Order Comment: Order Added by Discern Expert. Performed By: #### 2 [id number] ####CAROLINA [address] [place] [address] Monocytes/100 leukocytes 7.3 % Normal 0.0-10.0 [facility] Comment on above: Order Comment: Order Added by Discern Expert. Performed By: #### 2 [id number] ####CAROLINA [address] [place] [address] Neutro Absolute 5.2 E3/mcL Normal 1.4-6.5 [facility] Comment on above: Order Comment: Order Added by Discern Expert. Performed By: #### 2 [id number] ####[place] MeloUvrNcro7113 [place] [address] Neutro Auto 82.3 % High 37.0-75.0 [facility] Comment on above: Order Comment: Order Added by Discern Expert. Performed By: #### 2 [id number] ####[place] MeloSfqFxyr1706 [place] [address] BMPon 04-30-2017 BUN/Creatinine Ratio 20.0 ratio Normal 5.4-30.0 [facility] Comment on above: Performed By: #### 2 [id number] ####[place] MeloBqnWeeg8624 [place] [address] Creatinine 0.7 mg/dL Normal 0.6-1.3 [facility] Comment on above: Performed By: #### 2 [id number] ####[place] MeloHqnIfsl0468 [place] [address] Urea nitrogen 14 mg/dL Normal 7-18 [facility] Comment on above: Performed By: #### 2 [id number] ####[place] LfdUkah4922 [place] [address] Calcium 9.1 mg/dL Normal 8.4-10.2 [facility] Comment on above: Performed By: #### 2 139046 ####[place] QjyVghx5511 [place] [address] Chloride 102 mmol/L Normal 98-107 [facility] Comment on above: Performed By: #### 2 579681 ####[place] VcsIddx5251 [place] [address] CO2 25.6 mmol/L Normal 24.0-30.0 [facility] Comment on above: Performed By: #### 2 823919 ####[place] TxzXqjq3379 [place] [address] Glucose mass conc 100 mg/dL High 70-99 [facility] Comment on above: Performed By: #### 2 393274 ####CAR[place]INA EeiDdbd3296 [place] [address] Potassium molar conc 3.7 mmol/L Normal 3.5-5.1 [facility] Comment on above: Performed By: #### 2 [id number] ####[place] JdbGtud4406 [place] [address] Sodium 137 mmol/L Normal 136-145 [facility] Comment on above: Performed By: #### 2 [id number] ####CAR[place] HheAtqg0075 [place] [address] CBC w/ Auto Diffon 7 Erythrocyte distribution width Auto Ratio (RBC) 14.0 % Normal 11.5-14.5 [facility] Comment on above: Performed By: #### 2 687486 ####[place] MeloCweDrrk6278 [place] [address] Erythrocytes (RBC) 4.76 E6/mcL Normal 3.90-5.40 [facility] Comment on above: Performed By: #### 2 591542 ####CAROLINAHossien MeloNcqMnuq7310 [place] [address] Hematocrit (HCT) 39.3 % Normal 36.0-48.0 [facility] Comment on above: Performed By: #### 2 940455 ####CAROLINA [address]mao[address]25 [place] [address] Hemoglobin mass conc (Bld) 12.8 g/dL Normal 12.0-16.0 [facility] Comment on above: Performed By: #### 2 708193 ####CAROLINA [address]mao[address] [place] [address] MCH 26.9 pg Low 27.0-31.0 [facility] Comment on above: Performed By: #### 2 612535 ####[place] MeloExjDocs6016 [place] [address] MCHC mass conc (RBC) 32.6 g/dL Low 33.0-37.0 [facility] Comment on above: Performed By: #### 2 [id number] ####CAROLINA [address] [place] [address] MCV 82.4 fL Normal 78.0-100.0 [facility] Comment on above: Performed By: #### 2 712007 ####[place] MeloUkeRzze0411 [place] [address] Platelet mean volume (PMV) 8.0 fL Normal 7.4-11.0 [facility] Comment on above: Performed By: #### 2 036015 ####CAR[place] MeloXksChgk1063 [place] [address] Platelets 198 E3/mcL Normal 130-400 [facility] Comment on above: Performed By: #### 2 853862 ####[place] MeloHjzLhwr7284 [place] [address] WBC (Leukocytes) 6.4 E3/mcL Normal 3.6-11.0 [facility] Comment on above: Performed By: #### 2 [id number] ####[place] MeloGfxAesy0670 [place] [address] Hep Func Panelon 04-30-2017 Alanine aminotransferase (ALT) 15 Int._Unit/L Normal 10-40 [facility] Comment on above: Performed By: #### 2 457527 ####CAROLINAHossein MeloAwhDhmo9423 [place] [address] Albumin 4.1 g/dL Normal 3.2-5.0 [facility] Comment on above: Performed By: #### 2 191114 ####CAR[place]INA Unger1025 [place] [address] Albumin/Globulin Ratio 1.4 {ratio} Normal 1.1-1.9 [facility] Comment on above: Performed By: #### 2 852106 ####[place] KmeGias4839 [place] [address] Alk Phos 58 Int._Unit/L Normal 42-121 [facility] Comment on above: Performed By: #### 2 294084 ####[place] Unger[address] [place] [address] Aspartate aminotransferase (AST) 20 Int._Unit/L Normal 10-42 [facility] Comment on above: Performed By: #### 2 [id number] ####CAR[place]INA Unger[address] [place] [address] Bili Direct .12 mg/dL Normal .00-.20 [facility] Comment on above: Performed By: #### 2 454005 ####CAR[place]INA [address]ger[address] [place] [address] Bili Indirect 0.7 Normal [facility] Comment on above: Result Comment: No e stablished ranges available for the Indirect Biliruben. Performed By: #### 2 [id number] ####[place] PpkZddg6649 [place] [address] Bili Total 0.8 mg/dL Normal 0.2-1.0 [facility] Comment on above: Performed By: #### 2 177041 ####CAROLINA MxmOoao7113 [place] [address] Globulin 3.0 g/dL Normal 2.0-4.0 [facility] Comment on above: Performed By: #### 2 586772 ####CAROLINA Unger[address] [place] [address] Protein 7.1 g/dL Normal 6.4-8.3 [facility] Comment on above: Performed By: #### 2 761888 ####[place] HpbIukb6758 [place] [address] Lipase Levelon 04-30-2017 Lipase Lvl 21 U/L Normal 8-57 [facility] Comment on above: Performed By: #### 2 [id number] ####CAR[place] SmtDufg1333 [place] [address] U BhCG Qlton 04-30-2017 HCG.beta subunit Qn Positive Normal Neg [facility] Comment on above: Performed By: #### 2 [id number] ####CAR[place]INA Urinalysis Manual X[address]lln5460 [place] [id number] UA Completeon 04-30-2017 UA Blood Negative Normal Negative [facility] Comment on above: Performed By: #### 8 [id number] ####[place] Urinalysis Automated [address] [place] [address] UA Clarity SltCloudy Abnormal Clear [facility] Comment on above: Performed By: #### 8 [id number] ####[place] Urinalysis Automated [address] [place] [address] UA Leuk Est Negative Normal Negative [facility] Comment on above: Performed By: #### 8 [id number] ####[place] Urinalysis Automated Athhegjdoj1133 [place] [address] UA Mucous Few Abnormal Trace [facility] Comment on above: Performed By: #### 8 [id number] ####[place] Urinalysis Automated Enptuksorh9084 [place] [address] UA Nitrite Negative Normal Negative [facility] Comment on above: Performed By: #### 8 [id number] ####[place] Urinalysis Automated Aeophqgoaz0799 [place] [address] UA pH 5.0 Normal 4.6-8.0 [facility] Comment on above: Performed By: #### 8 [id number] ####[place] Urinalysis Automated Kamyppncfk2329 [place] [address] UA Protein Negative Normal Negative [facility] Comment on above: Performed By: #### 8 [id number] ####[place] Urinalysis Automated Crsrpgucjj0816 [place] [address] UA Spec Grav 1.024 Normal 1.003-1.030 [facility] Comment on above: Performed By: #### 8 [id number] ####[place] Urinalysis Automated Smffyexglp9977 [place] [address] UA Squam Epithelial 5-10 Abnormal 0-5 [facility] Comment on above: Performed By: #### 8 [id number] ####[place] Urinalysis Automated Jasmainuxc5227 [place] [address] UA Urobilinogen 2.0 mg/dL Abnormal [facility] Comment on above: Performed By: #### 8 [id number] ####[place] Urinalysis Automated Hlzcrgzaya4543 [place] [address] UA WBC 0-5 Normal 0-5 [facility] Comment on above: Performed By: #### 8 [id number] ####[place] Urinalysis Automated Wggjzjlnmq4706 [place] [address] Urine, color Yellow Normal Yellow [facility] Comment on above: Performed By: #### 8 [id number] ####[place] Urinalysis Automated Angfvkdzqr7009 [place] [address] Urine, erythrocytes 0-3 Normal 0-3 [facility] Comment on above: Performed By: #### 8 [id number] ####[place] Urinalysis Automated Ovbhslmzmx4199 [place] [address] Urine, glucose Negative Normal Negative [facility] Comment on above: Performed By: #### 8 [id number] ####[place] Urinalysis Automated Xwsmxgqlmq4210 [place] [address] Urine, ketones presence Negative Normal Negative [facility] Comment on above: Performed By: #### 8 [id number] ####[place] Urinalysis Automated Iyjyvujnis5024 [place] [address] Urine, urobilinogen Negative Normal Negative [facility] Comment on above: Performed By: #### 8 [id number] ####[place] Urinalysis Automated Gwycmkclpz4103 [place] [address] eGFRon 04-30-2017 eGFR (non-black) mL/min/{1.73_m2} Normal [facility] Comment on above: Order Comment: Order added by Discern Expert. Performed By: #### 1 [id number] ####CAR[place] SyfLqzy9786 [place] [address] Culture, urine Bacteria identified Cx Nom (U) Escherichia coli [facility] Work Phone: Vital Signs Date Time Vital Sign Value Performing Clinician Facility 12-04-2024 12:37-0400 Body mass index (BMI) [Ratio] 16.9 kg/m2 Pina NUNES-C Work Phone: [facility] 12-04-2024 12:37-0400 Body temperature 98.29 [degF] Pina Wilson PA-C Work Phone: [facility] 12-04-2024 12:37-0400 Body weight 41.39 kg Pina NUNES-C Work Phone: [facility] 12-04-2024 12:37-0400 Diastolic blood pressure 60 mm[Hg] Pina Wilson PA-C Work Phone: [facility] 12-04-2024 12:37-0400 Heart rate 77 /min Pina NUNES-C Work Phone: [facility] 12-04-2024 12:37-0400 Respiratory rate 16 /min Pina Wilson PA-C Work Phone: [facility] 12-04-2024 12:37-0400 SaO2% (BldA) [Mass fraction] 97 % Pina NUNES-C Work Phone: [facility] 12-04-2024 12:37-0400 Systolic blood pressure 88 mm[Hg] Pina NUNES-C Work Phone: [facility] 09-20-2024 10:03-0400 Body mass index (BMI) [Ratio] 16.76 kg/m2 Yaneth Davenport Work Phone: [facility] 09-20-2024 10:03-0400 Body temperature 97.39 [degF] Yaneth Davenport Work Phone: [facility] 09-20-2024 10:03-0400 Body weight 41.05 kg Yaneth Davenport Work Phone: [facility] 09-20-2024 10:03-0400 Diastolic blood pressure 61 mm[Hg] Yaneth Davenport Work Phone: [facility] 09-20-2024 10:03-0400 Heart rate 67 /min Yaneth Davenport Work Phone: [facility] 09-20-2024 10:03-0400 SaO2% (BldA) [Mass fraction] 99 % Yaneth Davenport Work Phone: [facility] 09-20-2024 10:03-0400 Systolic blood pressure 91 mm[Hg] Yaneth Davenport Work Phone: [facility] 07-26-2024 10:05-0500 Body temperature 98.6 [degF] Treatment Wstr Work Phone: [facility] 07-26-2024 10:05-0500 Diastolic blood pressure 66 mm[Hg] Treatment Wstr Work Phone: [facility] 07-26-2024 10:05-0500 Heart rate 77 /min Treatment Wstr Work Phone: [facility] 07-26-2024 10:05-0500 Respiratory rate 18 /min Treatment Wstr Work Phone: [facility] 07-26-2024 10:05-0500 SaO2% (BldA) [Mass fraction] 97 % Treatment Wstr Work Phone: [facility] 07-26-2024 10:05-0500 Systolic blood pressure 100 mm[Hg] Treatment Wstr Work Phone: [facility] 07-24-2024 10:11-0500 Body temperature 98.91 [degF] Treatment Wstr Work Phone: [facility] 07-24-2024 10:11-0500 Diastolic blood pressure 63 mm[Hg] Treatment Wstr Work Phone: [facility] 07-24-2024 10:11-0500 Heart rate 72 /min Treatment Wstr Work Phone: [facility] 07-24-2024 10:11-0500 Respiratory rate 16 /min Treatment Wstr Work Phone: [facility] 07-24-2024 10:11-0500 SaO2% (BldA) [Mass fraction] 100 % Treatment Wstr Work Phone: [facility] 07-24-2024 10:11-0500 Systolic blood pressure 96 mm[Hg] Treatment Wstr Work Phone: [facility] 07-22-2024 09:00-0500 Body temperature 97.9 [degF] Treatment Wstr Work Phone: [facility] 07-22-2024 09:00-0500 Diastolic blood pressure 60 mm[Hg] Treatment Wstr Work Phone: [facility] 07-22-2024 09:00-0500 Heart rate 79 /min Treatment Wstr Work Phone: [facility] 07-22-2024 09:00-0500 Systolic blood pressure 92 mm[Hg] Treatment Wstr Work Phone: [facility] 07-18-2024 10:13-0500 Body temperature 99.3 [degF] Treatment Wstr Work Phone: [facility] 07-18-2024 10:13-0500 Diastolic blood pressure 50 mm[Hg] Treatment Wstr Work Phone: [facility] 07-18-2024 10:13-0500 Heart rate 73 /min Treatment Wstr Work Phone: [facility] 07-18-2024 10:13-0500 Respiratory rate 22 /min Treatment Wstr Work Phone: [facility] 07-18-2024 10:13-0500 SaO2% (BldA) [Mass fraction] 100 % Treatment Wstr Work Phone: [facility] 07-18-2024 10:13-0500 Systolic blood pressure 93 mm[Hg] Treatment Wstr Work Phone: [facility] 07-16-2024 08:42-0500 Body mass index (BMI) [Ratio] 17.35 kg/m2 Treatment Wstr Work Phone: [facility] 07-16-2024 08:42-0500 Body temperature 98.29 [degF] Treatment Wstr Work Phone: [facility] 07-16-2024 08:42-0500 Body weight 42.5 kg Treatment Wstr Work Phone: [facility] 07-16-2024 08:42-0500 Diastolic blood pressure 66 mm[Hg] Treatment Wstr Work Phone: [facility] 07-16-2024 08:42-0500 Heart rate 82 /min Treatment Wstr Work Phone: [facility] 07-16-2024 08:42-0500 SaO2% (BldA) [Mass fraction] 100 % Treatment Wstr Work Phone: [facility] 07-16-2024 08:42-0500 Systolic blood pressure 99 mm[Hg] Treatment Wstr Work Phone: [facility] 07-11-2024 10:25-0500 Body height 156.5 cm Yaneth Davenport Work Phone: [facility] 07-11-2024 10:25-0500 Body mass index (BMI) [Ratio] 16.48 kg/m2 Yaneth Davenport Work Phone: [facility] 07-11-2024 10:25-0500 Body temperature 99 [degF] Yaneth Davenport Work Phone: [facility] 07-11-2024 10:25-0500 Body weight 40.37 kg Yaneth Davenport Work Phone: [facility] 07-11-2024 10:25-0500 Diastolic blood pressure 75 mm[Hg] Yaneth Davenport Work Phone: [facility] 07-11-2024 10:25-0500 Heart rate 87 /min Yaneth Davenport Work Phone: [facility] 07-11-2024 10:25-0500 SaO2% (BldA) [Mass fraction] 97 % Yaneth Davenport Work Phone: [facility] 07-11-2024 10:25-0500 Systolic blood pressure 99 mm[Hg] Yaneth Davenport Work Phone: [facility] 07-08-2024 10:49-0500 Body mass index (BMI) [Ratio] 17.58 kg/m2 Marlyn Estrada INK TECHNICIAN.VETERINARY TOXICOLOGIST Work Phone: [facility] 07-08-2024 10:49-0500 Body weight 40.82 kg Marlyn Estrada INK TECHNICIAN.VETERINARY TOXICOLOGIST Work Phone: [facility] 07-08-2024 10:49-0500 Diastolic blood pressure 62 mm[Hg] Marlyn Estrada INK TECHNICIAN.VETERINARY TOXICOLOGIST Work Phone: [facility] 07-08-2024 10:49-0500 Heart rate 66 /min Marlyn Estrada INK TECHNICIAN.VETERINARY TOXICOLOGIST Work Phone: [facility] 07-08-2024 10:49-0500 Respiratory rate 14 /min Marlyn Estrada INK TECHNICIAN.VETERINARY TOXICOLOGIST Work Phone: [facility] 07-08-2024 10:49-0500 SaO2% (BldA) [Mass fraction] 100 % Marlyn Estrada INK TECHNICIAN.VETERINARY TOXICOLOGIST Work Phone: [facility] 07-08-2024 10:49-0500 Systolic blood pressure 108 mm[Hg] Marlyn Estrada INK TECHNICIAN.VETERINARY TOXICOLOGIST Work Phone: [facility] 07-03-2024 13:41-0500 Body mass index (BMI) [Ratio] 18.04 kg/m2 Josemanuel Clutter PA-C Work Phone: [facility] 07-03-2024 13:41-0500 Body temperature 98.29 [degF] Josemanuel Clutter PA-C Work Phone: [facility] 07-03-2024 13:41-0500 Body weight 41.9 kg Josemanuel Clutter PA-C Work Phone: [facility] 07-03-2024 13:41-0500 Diastolic blood pressure 60 mm[Hg] Josemanuel Clutter PA-C Work Phone: [facility] 07-03-2024 13:41-0500 Heart rate 84 /min Josemanuel Clutter PA-C Work Phone: [facility] 07-03-2024 13:41-0500 Respiratory rate 16 /min Josemanuel Clutter PA-C Work Phone: [facility] 07-03-2024 13:41-0500 SaO2% (BldA) [Mass fraction] 97 % Josemanuel Clutter PA-C Work Phone: [facility] 07-03-2024 13:41-0500 Systolic blood pressure 90 mm[Hg] Josemanuel Clutter PA-C Work Phone: [facility] 04-03-2024 13:05-0400 Body mass index (BMI) [Ratio] 18.94 kg/m2 Pina Wilson PA-C Work Phone: [facility] 04-03-2024 13:05-0400 Body temperature 97.81 [degF] Pina Wilson PA-C Work Phone: [facility] 04-03-2024 13:05-0400 Body weight 44 kg Pina Wilson PA-C Work Phone: [facility] 04-03-2024 13:05-0400 Diastolic blood pressure 70 mm[Hg] Pina Wilson PA-C Work Phone: [facility] 04-03-2024 13:05-0400 Heart rate 58 /min Pina Wilson PA-C Work Phone: [facility] 04-03-2024 13:05-0400 Respiratory rate 16 /min Pina Wilson PA-C Work Phone: [facility] 04-03-2024 13:05-0400 SaO2% (BldA) [Mass fraction] 99 % Pina Wilson PA-C Work Phone: [facility] 04-03-2024 13:05-0400 Systolic blood pressure 110 mm[Hg] Pina Wilson PA-C Work Phone: [facility] 10-30-2023 10:52-0400 Body mass index (BMI) [Ratio] 16.99 kg/m2 Jamari Zhang DO Work Phone: [facility] 10-30-2023 10:52-0400 Body temperature 97 [degF] Jamari Zhang DO Work Phone: [facility] 10-30-2023 10:52-0400 Body weight 39.46 kg Jamari Zhang DO Work Phone: [facility] 10-30-2023 10:52-0400 Diastolic blood pressure 60 mm[Hg] Jamari Zhang DO Work Phone: [facility] 10-30-2023 10:52-0400 Heart rate 64 /min Jamari Zhang DO Work Phone: [facility] 10-30-2023 10:52-0400 Respiratory rate 16 /min Jamari Zhang DO Work Phone: [facility] 10-30-2023 10:52-0400 Systolic blood pressure 100 mm[Hg] Jamari Zhang DO Work Phone: [facility] 09-05-2023 09:02-0400 Body temperature 98.91 [degF] Yaneth Davenport Work Phone: [facility] 09-05-2023 09:02-0400 Body weight 39.24 kg Yaneth Davenport Work Phone: [facility] 09-05-2023 09:02-0400 Diastolic blood pressure 68 mm[Hg] Yaneth Davenport Work Phone: [facility] 09-05-2023 09:02-0400 Heart rate 63 /min Yaneth Davenport Work Phone: [facility] 09-05-2023 09:02-0400 SaO2% (BldA) [Mass fraction] 98 % Yaneth Davenport Work Phone: [facility] 09-05-2023 09:02-0400 Systolic blood pressure 96 mm[Hg] Yaneth Davenport Work Phone: 2(606)895-805243 [place] [address] 08-21-2023 16:45-0400 Body temperature 97.8 [degF] Dr. Jamari Zhang Work Phone: [facility] 08-21-2023 16:45-0400 Diastolic blood pressure 60 mm[Hg] Dr. Jamari Zhang Work Phone: 5(613)448-133086 [place] [address] 08-21-2023 16:45-0400 Heart rate 55 /min Dr. Jamari Zhang Work Phone: 5(701)111-943086 [place] [address] 08-21-2023 16:45-0400 Respiratory rate 18 /min Dr. Jamari Zhang Work Phone: 2(552)949-040086 [place] [address] 08-21-2023 16:45-0400 SaO2% (BldA) [Mass fraction] 100 % Dr. Jamari Zhang Work Phone: 5(842)657-696586 [place] [address] 08-21-2023 16:45-0400 Systolic blood pressure 90 mm[Hg] Dr. Jamari Zhang Work Phone: 8(432)205-725786 [place] [address] 08-21-2023 10:20-0400 Body height 154.[address] Jamari Zhang Work Phone: 1(111)946-207186 [place] [address] 08-21-2023 10:20-0400 Body mass index (BMI) [Ratio] 16.2 kg/m2 Dr. Jamari Zhang Work Phone: 7(031)115-188986 [place] [address] 08-21-2023 10:20-0400 Body weight [address] Jamari Zhang Work Phone: 8(079)547-506986 [place] [address] 08-17-2023 23:00-0500 Diastolic blood pressure 68 mm[Hg] Dr. Jamari Zhang Work Phone: 9(706)488-263186 [place] [address] 08-17-2023 23:00-0500 Heart rate 94 /min Dr. Jamari Zhang Work Phone: 1(750)613-695914 [place] [address] 08-17-2023 23:00-0500 Respiratory rate 16 /min Dr. Jamari Zhang Work Phone: [facility] 08-17-2023 23:00-0500 SaO2% (BldA) [Mass fraction] 96 % Dr. Jamari Zhang Work Phone: [facility] [facility] 08-17-2023 23:00-0500 Systolic blood pressure 98 mm[Hg] Dr. Jamari Zhang Work Phone: [facility] 08-17-2023 21:44-0500 Body temperature 99.1 [degF] Dr. Jamari Zhang Work Phone: 5([phone] [place] [address] 08-17-2023 16:59-0500 Body height 154.[address] Jamari Zhang Work Phone: 5(112)[phone] [place] [address] 08-17-2023 16:59-0500 Body mass index (BMI) [Ratio] 16.2 kg/m2 Dr. Jamari Zhang Work Phone: 1(625)[phone] [place] [address] 08-17-2023 16:59-0500 Body weight [address] Jamari Zhang Work Phone: [facility] 08-11-2023 13:08-0500 Body temperature 97.7 [degF] Treatment Wstr Work Phone: [facility] 08-11-2023 13:08-0500 Diastolic blood pressure 60 mm[Hg] Treatment Wstr Work Phone: [facility] 08-11-2023 13:08-0500 Heart rate 82 /min Treatment Wstr Work Phone: [facility] 08-11-2023 13:08-0500 Respiratory rate 16 /min Treatment Wstr Work Phone: [facility] 08-11-2023 13:08-0500 SaO2% (BldA) [Mass fraction] 100 % Treatment Wstr Work Phone: [facility] 08-11-2023 13:08-0500 Systolic blood pressure 88 mm[Hg] Treatment Wstr Work Phone: [facility] 08-09-2023 10:41-0500 Body temperature 97.9 [degF] Treatment Wstr Work Phone: [facility] 08-09-2023 10:41-0500 Diastolic blood pressure 67 mm[Hg] Treatment Wstr Work Phone: [facility] 08-09-2023 10:41-0500 Heart rate 97 /min Treatment Wstr Work Phone: [facility] 08-09-2023 10:41-0500 SaO2% (BldA) [Mass fraction] 100 % Treatment Wstr Work Phone: [facility] 08-09-2023 10:41-0500 Systolic blood pressure 97 mm[Hg] Treatment Wstr Work Phone: [facility] 08-08-2023 10:46-0500 Body mass index (BMI) [Ratio] 16.1 kg/m2 Dr. Jamari Zhang Work Phone: [facility] 08-08-2023 10:46-0500 Body weight 38.[address] Jamari Zhang Work Phone: 1(715)[phone] [place] [address] 08-08-2023 10:46-0500 Diastolic blood pressure 59 mm[Hg] Dr. Jamari Zhang Work Phone: [facility] 08-08-2023 10:46-0500 Heart rate 73 /min Dr. Jamari Zhang Work Phone: [facility] 08-08-2023 10:46-0500 Respiratory rate 18 /min Dr. Jamari Zhang Work Phone: [facility] 08-08-2023 10:46-0500 Systolic blood pressure 85 mm[Hg] Dr. Jamari Zhang Work Phone: [facility] 08-03-2023 10:34-0500 Body temperature 99.1 [degF] Treatment Wstr Work Phone: [facility] 08-03-2023 10:34-0500 Diastolic blood pressure 67 mm[Hg] Treatment Wstr Work Phone: [facility] 08-03-2023 10:34-0500 Heart rate 86 /min Treatment Wstr Work Phone: [facility] 08-03-2023 10:34-0500 Respiratory rate 16 /min Treatment Wstr Work Phone: [facility] 08-03-2023 10:34-0500 Systolic blood pressure 103 mm[Hg] Treatment Wstr Work Phone: [facility] 08-01-2023 10:27-0500 Body temperature 98.6 [degF] Treatment Wstr Work Phone: [facility] 08-01-2023 10:27-0500 Diastolic blood pressure 67 mm[Hg] Treatment Wstr Work Phone: [facility] 08-01-2023 10:27-0500 Heart rate 72 /min Treatment Wstr Work Phone: [facility] 08-01-2023 10:27-0500 SaO2% (BldA) [Mass fraction] 100 % Treatment Wstr Work Phone: [facility] 08-01-2023 10:27-0500 Systolic blood pressure 99 mm[Hg] Treatment Wstr Work Phone: [facility] 07-25-2023 11:03-0500 Body height 152.4 cm Yaneth Davenport Work Phone: [facility] 07-25-2023 11:01-0500 Body temperature 98.49 [degF] Yaneth Davenport Work Phone: [facility] 07-25-2023 11:01-0500 Body weight 37.65 kg Yaneth Davenport Work Phone: [facility] 07-25-2023 11:01-0500 Diastolic blood pressure 62 mm[Hg] Yaneth Davenport Work Phone: [facility] 07-25-2023 11:01-0500 Heart rate 38 /min Yaneth Davenport Work Phone: [facility] 07-25-2023 11:01-0500 Respiratory rate 16 /min Yaneth Davenport Work Phone: [facility] 07-25-2023 11:01-0500 SaO2% (BldA) [Mass fraction] 99 % Yaneth Davenport Work Phone: [facility] 07-25-2023 11:01-0500 Systolic blood pressure 89 mm[Hg] Yaneth Davenport Work Phone: [facility] 07-21-2023 13:40-0500 Body temperature 99.61 [degF] Marlyn Estrada INK TECHNICIAN.VETERINARY TOXICOLOGIST Work Phone: [facility] 07-21-2023 13:40-0500 Body weight 37.29 kg Marlyn Estrada INK TECHNICIAN.VETERINARY TOXICOLOGIST Work Phone: [facility] 07-21-2023 13:40-0500 Diastolic blood pressure 60 mm[Hg] Marlyn Estrada INK TECHNICIAN.VETERINARY TOXICOLOGIST Work Phone: [facility] 07-21-2023 13:40-0500 Heart rate 73 /min Marlyn Estrada INK TECHNICIAN.VETERINARY TOXICOLOGIST Work Phone: [facility] 07-21-2023 13:40-0500 Respiratory rate 14 /min Marlyn Estrada INK TECHNICIAN.VETERINARY TOXICOLOGIST Work Phone: [facility] 07-21-2023 13:40-0500 SaO2% (BldA) [Mass fraction] 96 % Marlyn Estrada INK TECHNICIAN.VETERINARY TOXICOLOGIST Work Phone: [facility] 07-21-2023 13:40-0500 Systolic blood pressure 89 mm[Hg] Marlyn Estrada INK TECHNICIAN.VETERINARY TOXICOLOGIST Work Phone: [facility] 07-18-2023 08:54-0500 Heart rate 81 /min Dr. Jamari Zhang Work Phone: [facility] 07-18-2023 08:51-0500 Body temperature 98.1 [degF] Dr. Jamari Zhang Work Phone: [facility] 07-18-2023 08:51-0500 Diastolic blood pressure 71 mm[Hg] Dr. Jamari Zhang Work Phone: [facility] 07-18-2023 08:51-0500 Respiratory rate 18 /min Dr. Jamari Zhang Work Phone: [facility] 07-18-2023 08:51-0500 SaO2% (BldA) [Mass fraction] 99 % Dr. Jamari Zhang Work Phone: [facility] 07-18-2023 08:51-0500 Systolic blood pressure 97 mm[Hg] Dr. Jamari Zhang Work Phone: [facility] 07-18-2023 03:08-0500 Body mass index (BMI) [Ratio] 15.9 kg/m2 Dr. Jamari Zhang Work Phone: [facility] 07-18-2023 03:08-0500 Body weight 38.[address] Jamari Zhang Work Phone: [facility] 07-16-2023 22:09-0500 Body temperature 97.7 [degF] [facility] 07-16-2023 22:09-0500 Diastolic blood pressure 72 mm[Hg] [facility] 07-16-2023 22:09-0500 Heart rate 78 /min [facility] 07-16-2023 22:09-0500 Respiratory rate 18 /min [facility] 07-16-2023 22:09-0500 SaO2% (BldA) [Mass fraction] 98 % [facility] 07-16-2023 22:09-0500 Systolic blood pressure 103 mm[Hg] [facility] 07-16-2023 16:29-0500 Body height 154.94 cm [facility] 07-16-2023 16:29-0500 Body mass index (BMI) [Ratio] 16.2 kg/m2 [facility] 07-16-2023 16:29-0500 Body weight 39 kg [facility] 07-13-2023 09:01-0500 Body mass index (BMI) [Ratio] 16.6 kg/m2 [facility] 07-13-2023 09:01-0500 Body temperature 98 [degF] [facility] 07-13-2023 09:01-0500 Body weight 40 kg [facility] 07-13-2023 09:01-0500 Diastolic blood pressure 68 mm[Hg] [facility] 07-13-2023 09:01-0500 Heart rate 86 /min [facility] 07-13-2023 09:01-0500 Respiratory rate 18 /min [facility] 07-13-2023 09:01-0500 Systolic blood pressure 97 mm[Hg] [facility] 05-06-2023 10:58-0500 Body temperature 98.29 [degF] Sylvester Garay INK TECHNICIAN.VETERINARY TOXICOLOGIST Work Phone: [facility] 05-06-2023 10:58-0500 Body weight 38.92 kg Sylvester Garay INK TECHNICIAN.VETERINARY TOXICOLOGIST Work Phone: [facility] 05-06-2023 10:58-0500 Diastolic blood pressure 75 mm[Hg] Sylvester Jarrod INK TECHNICIAN.VETERINARY TOXICOLOGIST Work Phone: [facility] 05-06-2023 10:58-0500 Heart rate 79 /min Sylvester Jarrod INK TECHNICIAN.VETERINARY TOXICOLOGIST Work Phone: [facility] 05-06-2023 10:58-0500 Respiratory rate 20 /min Sylvester Garay INK TECHNICIAN.VETERINARY TOXICOLOGIST Work Phone: [facility] 05-06-2023 10:58-0500 SaO2% (BldA) [Mass fraction] 100 % Sylvester Jarrod INK TECHNICIAN.VETERINARY TOXICOLOGIST Work Phone: [facility] 05-06-2023 10:58-0500 Systolic blood pressure 109 mm[Hg] Sylvester Jarrod INK TECHNICIAN.VETERINARY TOXICOLOGIST Work Phone: [facility] 05-01-2023 11:41-0500 Body weight 38.83 kg Marlyn Estrada INK TECHNICIAN.VETERINARY TOXICOLOGIST Work Phone: [facility] 05-01-2023 11:41-0500 Diastolic blood pressure 60 mm[Hg] Marlyn Estrada INK TECHNICIAN.VETERINARY TOXICOLOGIST Work Phone: [facility] 05-01-2023 11:41-0500 Heart rate 104 /min Marlyn Estrada INK TECHNICIAN.VETERINARY TOXICOLOGIST Work Phone: [facility] 05-01-2023 11:41-0500 Respiratory rate 16 /min Marlyn Estrada INK TECHNICIAN.VETERINARY TOXICOLOGIST Work Phone: [facility] 05-01-2023 11:41-0500 SaO2% (BldA) [Mass fraction] 96 % Marlyn Estrada INK TECHNICIAN.VETERINARY TOXICOLOGIST Work Phone: [facility] 05-01-2023 11:41-0500 Systolic blood pressure 100 mm[Hg] Marlyn Estrada INK TECHNICIAN.VETERINARY TOXICOLOGIST Work Phone: [facility] 03-03-2023 18:28-0400 Body temperature 98.1 [degF] Cris Athy PA-C Work Phone: [facility] 03-03-2023 18:28-0400 Body weight 39.28 kg Cris Athy PA-C Work Phone: [facility] 03-03-2023 18:28-0400 Diastolic blood pressure 76 mm[Hg] Cris Athy PA-C Work Phone: [facility] 03-03-2023 18:28-0400 Heart rate 68 /min Cris Athy PA-C Work Phone: [facility] 03-03-2023 18:28-0400 Respiratory rate 18 /min Cris Athy PA-C Work Phone: [facility] 03-03-2023 18:28-0400 SaO2% (BldA) [Mass fraction] 100 % Cris Athy PA-C Work Phone: [facility] 03-03-2023 18:28-0400 Systolic blood pressure 110 mm[Hg] Cris Athy PA-C Work Phone: [facility] 02-06-2023 18:50-0400 Body height 154.94 cm [facility] 02-06-2023 18:50-0400 Body temperature 96.8 [degF] [facility] 02-06-2023 18:50-0400 Diastolic blood pressure 78 mm[Hg] [facility] 02-06-2023 18:50-0400 Heart rate 70 /min [facility] 02-06-2023 18:50-0400 Respiratory rate 14 /min [facility] 02-06-2023 18:50-0400 SaO2% (BldA) [Mass fraction] 98 % [facility] 02-06-2023 18:50-0400 Systolic blood pressure 102 mm[Hg] [facility] 03-28-2022 13:42-0400 Body temperature 97.7 [degF] Michelle Alize INK TECHNICIAN.VETERINARY TOXICOLOGIST Work Phone: [facility] 03-28-2022 13:42-0400 Body weight 38.83 kg Michelle Alize INK TECHNICIAN.VETERINARY TOXICOLOGIST Work Phone: [facility] 03-28-2022 13:42-0400 Diastolic blood pressure 64 mm[Hg] Michelle Alize INK TECHNICIAN.VETERINARY TOXICOLOGIST Work Phone: [facility] 03-28-2022 13:42-0400 Heart rate 102 /min Michelle Alize INK TECHNICIAN.VETERINARY TOXICOLOGIST Work Phone: [facility] 03-28-2022 13:42-0400 Respiratory rate 16 /min Michelle Alize INK TECHNICIAN.VETERINARY TOXICOLOGIST Work Phone: [facility] 03-28-2022 13:42-0400 SaO2% (BldA) [Mass fraction] 98 % Michelle Alize INK TECHNICIAN.VETERINARY TOXICOLOGIST Work Phone: [facility] 03-28-2022 13:42-0400 Systolic blood pressure 102 mm[Hg] Michelle Alize INK TECHNICIAN.VETERINARY TOXICOLOGIST Work Phone: [facility] 03-08-2022 11:39-0400 Body height 154.94 cm [facility] Work Phone: 03-08-2022 11:39-0400 Body mass index (BMI) [Ratio] 16 kg/m2 [facility] Work Phone: 03-08-2022 11:39-0400 Body temperature 98.2 [degF] [facility] Work Phone: 03-08-2022 11:39-0400 Body weight 38.6 kg [facility] Work Phone: 03-08-2022 11:39-0400 Diastolic blood pressure 74 mm[Hg] [facility] Work Phone: 03-08-2022 11:39-0400 Heart rate 82 /min [facility] Work Phone: 03-08-2022 11:39-0400 Respiratory rate 14 /min [facility] Work Phone: 03-08-2022 11:39-0400 SaO2% (BldA) [Mass fraction] 100 % [facility] Work Phone: 03-08-2022 11:39-0400 Systolic blood pressure 97 mm[Hg] [facility] Work Phone: 03-02-2022 22:49-0400 Diastolic blood pressure 62 mm[Hg] [facility] Work Phone: 03-02-2022 22:49-0400 Systolic blood pressure 107 mm[Hg] [facility] Work Phone: 03-02-2022 16:36-0400 Body height 154.94 cm [facility] Work Phone: 03-02-2022 16:36-0400 Body mass index (BMI) [Ratio] 16.2 kg/m2 [facility] Work Phone: 03-02-2022 16:36-0400 Body temperature 97.3 [degF] [facility] Work Phone: 03-02-2022 16:36-0400 Body weight 39 kg [facility] Work Phone: 03-02-2022 16:36-0400 Heart rate 88 /min [facility] Work Phone: 03-02-2022 16:36-0400 Respiratory rate 16 /min [facility] Work Phone: 03-02-2022 16:36-0400 SaO2% (BldA) [Mass fraction] 100 % [facility] Work Phone: 09-06-2021 13:24-0400 Body height 157 cm Marlyn Zurawick INK TECHNICIAN.VETERINARY TOXICOLOGIST Work Phone: [facility] 09-06-2021 13:24-0400 Body temperature 99.19 [degF] Marlyn Zurawick INK TECHNICIAN.VETERINARY TOXICOLOGIST Work Phone: [facility] 09-06-2021 13:24-0400 Body weight 37.7 kg Marlyn Zurawick INK TECHNICIAN.VETERINARY TOXICOLOGIST Work Phone: [facility] 09-06-2021 13:24-0400 Diastolic blood pressure 62 mm[Hg] Marlyn Zurawick INK TECHNICIAN.VETERINARY TOXICOLOGIST Work Phone: [facility] 09-06-2021 13:24-0400 Heart rate 73 /min Marlyn Zurawick INK TECHNICIAN.VETERINARY TOXICOLOGIST Work Phone: [facility] 09-06-2021 13:24-0400 SaO2% (BldA) [Mass fraction] 100 % Marlyn Zurawick INK TECHNICIAN.VETERINARY TOXICOLOGIST Work Phone: [facility] 09-06-2021 13:24-0400 Systolic blood pressure 90 mm[Hg] Marlyn Zurawick INK TECHNICIAN.VETERINARY TOXICOLOGIST Work Phone: [facility] Encounters Encounter Date Encounter Type Care Provider Facility Start: 12-20-2024 ambulatory Zenia NUNES Facility:[facility] Start: 12-05-2024 End: 12-11-2024 Follow-up encounter Pina Wilosn PA-C Work Phone: [facility] Start: 12-04-2024 End: 12-04-2024 ambulatory PINA WILSON Facility:[facility] Start: 12-04-2024 End: 12-04-2024 Patient encounter procedure Pina Wilson PA-C Work Phone: [facility] Comment on above: Severe episode of re current major depressive disorder, 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); LIGIA (generalized anxiety disorder); Iron deficiency anemia, unspecified iron deficiency anemia type; Anemia, unspecified type; Autoimmune gastritis; Encounter for lipid screening for cardiovascular disease; Screening for diabetes mellitus; Screening for depression; Encounter for screening examination for other mental health and behavioral disorders; History of hyperthyroidism; Underweight (BMI < 18.5) Start: 12-04-2024 End: 12-04-2024 ambulatory PINA WILSON Facility:[facility] Start: 09-20-2024 End: 09-20-2024 Nutrition therapy Yaneth Davenport Work Phone: Hematology/Oncology Comment on above: Iron deficiency anem ia, unspecified iron deficiency anemia type (Primary Dx); Protein-calorie malnutrition, unspecified severity (HCC); Autoimmune gastritis Start: 09-20-2024 End: 09-20-2024 Patient encounter procedure Yaneth Davenport Work Phone: [facility]ology[facility] Start: 09-20-2024 End: 09-20-2024 ambulatory JAMARI ZHANG Facility:[facility] Start: 07-31-2024 End: 09-30-2024 Follow-up encounter Kat Peres APRN.CNP Work Phone: [facility] Start: 07-26-2024 End: 07-26-2024 [facility] Work Phone: [facility] Comment on above: History of anemia (P rimary Dx); Iron deficiency anemia, unspecified iron deficiency anemia type Start: 07-25-2024 End: 07-25-2024 ambulatory JAMARI ZHANG Facility:[facility] Start: 07-25-2024 End: 07-25-2024 Subsequent hospital visit by physician [facility] Work Phone: [facility] Comment on above: Chronic cough [R05.3 ] Start: 07-24-2024 End: 07-24-2024 ambulatory Treatment Rm [facility] Work Phone: [facility] Comment on above: History of anemia (P rimary Dx); Iron deficiency anemia, unspecified iron deficiency anemia type Start: 07-22-2024 End: 07-22-2024 ambulatory Treatment Rm 14 [facility] Work Phone: Hematology/Oncology Comment on above: Iron deficiency anem ia, unspecified iron deficiency anemia type (Primary Dx); History of anemia Start: 07-18-2024 End: 07-18-2024 ambulatory Treatment Rm 15 [facility] Work Phone: Hematology/Oncology Comment on above: History of anemia (P rimary Dx); Iron deficiency anemia, unspecified iron deficiency anemia type Start: 07-16-2024 End: 07-16-2024 ambulatory Treatment Rm 16 [facility] Work Phone: Hematology/Oncology Comment on above: History of anemia (P rimary Dx); Iron deficiency anemia, unspecified iron deficiency anemia type Start: 07-15-2024 End: 07-15-2024 Orders Only Yaneth Davenport Work Phone: Hematology/Oncology Start: 07-11-2024 End: 07-18-2024 Telephone encounter Yaneth Davenport Work Phone: Hematology/Oncology Start: 07-11-2024 End: 07-11-2024 ambulatory Yaneth Davenport Work Phone: Hematology/Oncology Comment on above: Iron deficiency anem ia, unspecified iron deficiency anemia type Start: 07-11-2024 End: 07-11-2024 Patient encounter procedure Yaneth Davenport Work Phone: Hematology/Oncology Start: 07-10-2024 End: 07-10-2024 Telephone encounter Marlyn Estrada APRN.CNP Work Phone: [facility] Comment on above: Results Start: 07-09-2024 End: 07-10-2024 Orders Only Yaneth Davenport Work Phone: Hematology/Oncology Start: 07-08-2024 End: 07-08-2024 Telephone encounter Jamari Zhang DO Work Phone: [address] [place] [address] Comment on above: Appointment Start: 07-08-2024 End: 07-08-2024 Office outpatient visit 25 minutes Marlyn Estrada INK TECHNICIAN.VETERINARY TOXICOLOGIST Work Phone: [facility] Comment on above: Chronic cough (Prima ry Dx); Iron deficiency anemia, unspecified iron deficiency anemia type; Underweight; Mild protein-calorie malnutrition (HCC) Start: 07-08-2024 End: 07-08-2024 ambulatory MARLYN ESTRADA Facility:[facility] Start: 07-03-2024 End: 07-03-2024 Emergency department patient visit Jamari Zhang Facility:[facility] Start: 07-03-2024 End: 07-03-2024 ambulatory JAMARI ZHANG Facility:[facility] Start: 07-03-2024 End: 07-03-2024 Office outpatient new 30 minutes Josemanuel Romero PA-C Work Phone: [facility] Comment on above: Sore throat (Primary Dx); Generalized abdominal pain; Acute gastroenteritis Start: 05-22-2024 ambulatory Massiel Espinal Facili ty:[facility] Start: 04-03-2024 End: 04-03-2024 ambulatory SELF Facility:[facility] Start: 04-03-2024 End: 04-03-2024 Patient encounter procedure Pina Wilson PA-C Work Phone: [facility] Comment on above: URI, acute (Primary Dx) Start: 04-01-2024 End: 04-02-2024 Emergency department patient visit Jamari Zhang Facility:[facility] Start: 02-21-2024 End: 02-22-2024 ambulatory Helena Hickey Facility:[facility] Start: 10-31-2023 Telephone encounter Jamari costa DO Work Phone: [facility] Start: 10-30-2023 End: 10-30-2023 Patient encounter procedure Jamari Zhang DO Work Phone: [facility] Comment on above: Acute myocarditis du e to influenza virus (Primary Dx); Underweight; Iron deficiency anemia, unspecified iron deficiency anemia type; Elevated TSH; Fatigue, unspecified type Start: 09-11-2023 Telephone encounter Yanethdionte Dhaliwal fallon Work Phone: Hematology/Oncology Comment on above: Patient Update Start: 09-05-2023 End: 09-05-2023 Nutrition therapy Yaneth Davenport Work Phone: Hematology/Oncology Comment on above: Iron deficiency anem ia, unspecified iron deficiency anemia type (Primary Dx); 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 Lisbet Zhang Work Phone: [facility] Work Phone: Start: 08-21-2023 Non-patient / Non-visit Dr. Lisbet Zhang Work Phone: [facility] Start: 08-20-2023 Non-patient / Non-visit Dr. Lisbet Zhang Work Phone: [facility] Start: 08-19-2023 End: 08-21-2023 Evaluation and management of inpatient Dr. Jamari Zhang Work Phone: [facility] Work Phone: Start: 08-19-2023 Non-patient / Non-visit Dr. Lisbet Zhang Work Phone: [facility] Start: 08-19-2023 Non-patient / Non-visit Dr. Lisbet Zhang Work Phone: [facility] Work Phone: Start: 08-19-2023 Non-patient / Non-visit Dr. Lisbet Zhang Work Phone: [facility] Start: 08-19-2023 Non-patient / Non-visit Dr. Lisbet Zhang Work Phone: [facility] Start: 08-18-2023 Non-patient / Non-visit Dr. Lisbet Zhang Work Phone: [facility] Start: 08-18-2023 Non-patient / Non-visit Dr. Lisbte Zhang Work Phone: [facility] Work Phone: Start: 08-17-2023 Evaluation and manag ement of inpatient Dr. Jamari [facility] Work Phone: Start: 08-17-2023 Non-patient / Non-visit Dr. Lisbet Zhang Work Phone: [facility] Work Phone: Start: 08-17-[address] Francisco Zhang Work Phone: [facility] Work Phone: Start: 08-14-2023 Telephone encounter Linda SOFIA Hematology/Oncology Comment on above: Social Work Services Start: 08-11-2023 End: 08-11-2023 ambulatory Treatment Rm 13 [facility] Work Phone: Hematology/Oncology Comment on above: Iron deficiency anem ia, unspecified iron deficiency anemia type (Primary Dx); History of anemia Start: 08-10-2023 Telephone encounter Financial Navigator Lopez Work Phone: Financial Services Comment on above: Benefits Investigati on Start: 08-09-2023 End: 08-09-2023 ambulatory Treatment Rm 13 [facility] Work Phone: Hematology/Oncology Comment on above: Iron deficiency anem ia, unspecified iron deficiency anemia type (Primary Dx); History of anemia Start: 08-08-2023 End: 08-08-[address] Jamari Zhang Work Phone: [facility] Work Phone: Start: 08-03-2023 End: 08-03-2023 ambulatory Treatment 13 [facility] Work Phone: Hematology/Oncology Comment on above: Iron deficiency anem ia, unspecified iron deficiency anemia type (Primary Dx); History of anemia Start: 08-01-2023 End: 08-01-2023 ambulatory Treatment 13 [facility] Work Phone: Hematology/Oncology Comment on above: Iron deficiency anem ia, unspecified iron deficiency anemia type (Primary Dx); History of anemia Start: 07-25-2023 End: 07-25-2023 Follow-up encounter Yaneth Davenport Work Phone: Hematology/Oncology Comment on above: Iron deficiency anem ia, unspecified iron deficiency anemia type (Primary Dx); Anemia, unspecified type; 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 Lisbet Zhang Work Phone: [facility] Start: 07-18-2023 Non-patient / Non-visit Dr. Lisbet Zhang Work Phone: [facility] Work Phone: Start: 07-17-2023 Non-patient / Non-visit Dr. Lisbet Zhang Work Phone: [facility] Start: 07-17-2023 Non-patient / Non-visit Dr. Lisbet Zhang Work Phone: [facility] Work Phone: Start: 07-17-2023 Non-patient / Non-visit Dr. Lisbet Zhang Work Phone: [facility] Start: 07-16-2023 End: 07-18-2023 Evaluation and management of inpatient [facility] Work Phone: Start: 07-13-2023 End: 07-13-2023 Emergency department patient visit [facility] Work Phone: Start: 05-28-2023 End: 05-29-2023 ambulatory JAMARI ZHANG Facility:[facility] Start: 05-06-2023 End: 05-06-2023 Patient encounter procedure Sylvester Garay APRN.VETERINARY TOXICOLOGIST Work Phone: [facility] Comment on above: Bacterial sinusitis (Primary Dx) Start: 05-03-2023 Telephone encounter Marlyn carroll INK TECHNICIAN.VETERINARY TOXICOLOGIST Work Phone: [facility] Start: 05-01-2023 End: 05-01-2023 Patient encounter procedure Marlyn Estrada INK TECHNICIAN.VETERINARY TOXICOLOGIST Work Phone: [facility] Comment on above: Iron deficiency anem ia, unspecified iron deficiency anemia type (Primary Dx); Vaginal discharge; Menstrual period late; Acute cough; Anxiety with depression; Fatigue, unspecified type Start: 04-12-2023 Telephone encounter Marlyn carroll INK TECHNICIAN.VETERINARY TOXICOLOGIST Work Phone: [facility] Comment on above: Results Start: 03-03-2023 End: 03-03-2023 Patient encounter procedure Cris Rolle PA-C Work Phone: [facility] Comment on above: Sinobronchitis (Prim brianne Dx) Start: 02-06-2023 End: 02-06-2023 [facility]: Start: 03-28-2022 End: 03-28-2022 Patient encounter procedure Michelle Herrmann INK TECHNICIAN.VETERINARY TOXICOLOGIST Work Phone: [facility] Comment on above: Acute non-recurrent pansinusitis (Primary Dx) Start: 03-14-2022 End: 03-14-2022 Subsequent hospital visit by physician [facility] Rad[facility] Comment on above: 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, subsequent encounter [S42.024K] Start: 03-14-2022 End: 03-14-2022 Patient encounter procedure Tong Mederos MD Work Phone: Orthopaedics Comment on above: Closed displaced fra cture of shaft of right clavicle with routine healing, subsequent encounter (Primary Dx); 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 Start: 03-08-2022 End: 03-08-2022 [facility] Start: 03-02-2022 End: 03-02-2022 [facility] Start: 09-08-2021 Telephone encounter Marlyn lamar INK TECHNICIAN.VETERINARY TOXICOLOGIST Work Phone: [facility] Comment on above: Results Start: 09-06-2021 End: 09-06-2021 Patient encounter procedure Marlyn Bynum INK TECHNICIAN.VETERINARY TOXICOLOGIST Work Phone: [facility] Comment on above: Generalized abdomina l pain (Primary Dx); Cough; Underweight Start: 04-30-2017 End: 04-30-2017 Emergency department patient visit Jamari Zhang Facility:[facility] Procedures Date Procedure Procedure Detail Performing Clinician Start: 07-03-2024 STREP A MOLECULAR (POC) Mercedes Jane INK TECHNICIAN.VETERINARY TOXICOLOGIST Work Phone: Start: 10-30-2023 Adult depression scr eening assessment [facility] Work Phone: Start: 08-21-[address] Jamari Zhang Work Phone: Start: 08-18-[address] Jamari Zhang Work Phone: Start: 08-17-2023 Plain chest X-ray Dr. Rima Zhang Work Phone: Start: 07-21-2023 Radiologic exam ches t 2 views Marlyn Estrada INK TECHNICIAN.VETERINARY TOXICOLOGIST Work Phone: Start: 07-16-2023 CT angiography of ch est with contrast Start: 07-16-2023 Plain chest X-ray Start: 07-16-[address] Jamari Zhang Work Phone: Start: 07-13-2023 SARS-CoV-2, Influenz a & RSV (PCR) Start: 07-13-2023 Plain chest X-ray Start: 05-01-2023 Urnls dip stick/tabl et rgnt auto w/o microscopy Marlyn Estrada INK TECHNICIAN.VETERINARY TOXICOLOGIST Work Phone: Start: 05-01-2023 STREP A MOLECULAR (POC) Marlyn Estrada INK TECHNICIAN.VETERINARY TOXICOLOGIST Work Phone: Start: 03-03-2023 STREP A MOLECULAR (POC) Cris Rolle PA-C Work Phone: Start: 02-06-2023 X-ray of both feet Start: 03-14-2022 Radex shoulder compl ete minimum 2 views Tong Mederos MD Work Phone: Start: 03-08-2022 Plain X-ray of clavicle Start: 03-02-2022 Computed tomography of abdomen and pelvis with contrast Start: 09-06-2021 Urnls dip stick/tabl et rgnt auto w/o microscopy Marlynabel Bynum INK TECHNICIAN.VETERINARY TOXICOLOGIST Work Phone: Start: 01-27-2021 Adult depression scr eening assessment Marlynabel Bynum INK TECHNICIAN.VETERINARY TOXICOLOGIST Work Phone: Urine culture Plan of Treatment Date Care Activity Detail Author Start: 11-27-2029 Urine microalbumin profile [facility] Start: 07-08-2025 Covid-19 Vaccine ( season) Covid-19 Vaccine () [facility] Comment on above: Postponed from 02/11/2024 (Declined at t his time) Start: 03-07-2025 End: 06-06-2025 Thyrotropin [Units/volume] in Serum or Plasma THYROID STIMULATING HORMONE Lab Routine History of thyroid disorder Expected: 03/07/2025, Expires: 06/06/2025 [facility] Comment on above: Expected: 03/07/2025, Expires: Start: 03-07-2025 End: 06-06-2025 Thyroxine (T4) free [Mass/volume] in Serum or Plasma T4 FREE/FREE THYROXINE Lab Routine History of thyroid disorder Expected: 03/07/2025, Expires: 06/06/2025 [facility] Work Phone: Comment on above: Expected: 03/07/2025, Expires: Start: 02-10-2025 Influenza vaccination [facility] Start: 01-08-2025 End: 01-08-2025 Patient encounter procedure 01/08/2025 2:00 PM EDT Office Visit [facility] [address] [place] [id number] [place] Faith INK TECHNICIAN.VETERINARY TOXICOLOGIST [address] [place] [address] 4 week f/u [facility] [place] Comment on above: 4 week f/u Start: 12-26-2024 End: 12-26-2024 ambulatory 12/26/2024 10:00 AM EDT Visit (SP) Office Hematology/Oncology [address] [place] [address] Yaneth Davenport [address] [place] [address] [facility]* Hematology/Oncolog y Comment on above: OV/EARLY LABS* Start: 12-19-2024 End: 12-19-2024 ambulatory 12/19/2024 11:00 AM EDT Results Only [place] [facility] [address] [place] [address] CBC/IRON STUDIES/B12/MMA [facility] Comment on above: CBC/IRON STUDIES/B12/MMA Start: 12-09-2024 [facility] Comment on above: Postponed from 02/11/2024 (Declined at t his time) Start: 12-04-2024 End: 03-05-2025 Comprehensive metabolic 2000 panel - Serum or Plasma [facility] Comment on above: Expected: 12/04/2024, Expires: Start: 12-04-2024 End: 03-05-2025 Hemoglobin A1c in Blood [facility] Comment on above: Expected: 12/04/2024, Expires: Start: 12-04-2024 End: 03-05-2025 LIPID PANEL, NONFASTING [facility] Work Phone: Comment on above: Expected: 12/04/2024, Expires: Start: 12-04-2024 End: 03-05-2025 Thyrotropin [Units/volume] in Serum or Plasma [facility] Comment on above: Expected: 12/04/2024, Expires: Start: 12-04-2024 End: 03-05-2025 Thyroxine (T4) free [Mass/volume] in Serum or Plasma [facility] Comment on above: Expected: 12/04/2024, Expires: Start: 10-29-2024 Anxiety Screening Anxiety Screening [facility] Start: 10-29-2024 Depression Screening Depression Screening [facility] Start: 09-20-2024 End: 09-20-2024 ambulatory [place] [facility] Comment on above: CBC/IRON STUDIES/B12/MMA [facility]* Start: 09-05-2024 End: 09-05-2024 ambulatory 09/05/2024 10:00 AM EDT Visit (SP) Office Hematology/Oncology [address] [place] [address] Yaneth Davenport [address] [place] [address] OV Hematology/Oncolog y Comment on above: OV Start: 07-26-2024 End: 07-26-2024 ambulatory 07/26/2024 10:00 AM EST Infusion Center Hematology/Oncology [address] [place] [address] 2ND Hematology/Oncolog y Comment on above: 2ND Start: 07-25-2024 End: 07-25-2024 Patient encounter procedure 07/25/2024 9:20 AM EST Appointment Cat Scan [address] [place] [address] Chronic cough [R05.3] [facility] Comment on above: Chronic cough [R05.3] Start: 07-24-2024 End: 07-24-2024 ambulatory 07/24/2024 10:00 AM EST Infusion Center Hematology/Oncology [address] [place] [address] 2ND Hematology/Oncolog y Comment on above: 2ND Start: 07-22-2024 End: 07-22-2024 ambulatory Hematology/Oncolog y Comment on above: 2ND 2NDPRINT NEW OV SC HEDULE Start: 07-18-2024 End: 07-18-2024 ambulatory 07/18/2024 10:30 AM EST Infusion Center Hematology/Oncology [address] [place] [address] 2ND Hematology/Oncolog y Comment on above: 2ND Start: 07-17-2024 End: 07-17-2024 Patient encounter procedure 07/17/2024 10:00 AM EST Appointment Cat Scan [address] [place] [address] Chronic cough [R05.3] [facility] Comment on above: Chronic cough [R05.3] Start: 07-16-2024 End: 07-16-2024 ambulatory 07/16/2024 9:00 AM EST Infusion Center Hematology/Oncology [address] [place] [address] 2ND Hematology/Oncolog y Comment on above: 2ND Start: 07-11-2024 End: 07-11-2024 Follow-up encounter 07/11/2024 10:00 AM EST Visit (SP) Office Hematology/Oncology [address] [place] [address] Yaneth Davenport [address] [place] [address] OV-Referred back from PCP's office, No Showed here follow-up with Elizabeth 10/31/2023 Hematology/Oncolog y Comment on above: OV-Referred back from PCP's office, No S howed here follow-up with Elizabeth 10/31/2023 Start: 07-08-2024 End: 10-07-2024 CBC W Auto Differential panel - Blood [facility] Comment on above: Expected: 07/08/2024, Expires: Start: 07-08-2024 End: 10-07-2024 Comprehensive metabolic 2000 panel - Serum or Plasma [facility] Comment on above: Expected: 07/08/2024, Expires: Start: 07-08-2024 End: 10-07-2024 Ferritin [Mass/volume] in Serum or Plasma [facility] Comment on above: Expected: 07/08/2024, Expires: Start: 07-08-2024 End: 10-07-2024 Iron and Iron binding capacity panel - Serum or Plasma [facility] Comment on above: Expected: 07/08/2024, Expires: Start: 04-10-2024 Covid-19 Vaccine (#1) Covid-19 Vaccine (#1) [facility] Comment on above: Postponed from 02/23/1991 (Declined at t his time) Start: 04-10-2024 Covid-19 Vaccine ( season) Covid-19 Vaccine ( season) [facility] Comment on above: Postponed from 02/10/2023 (Declined at t his time) Start: 02-11-2024 Covid-19 Vaccine ( season) Covid-19 Vaccine () [facility] Start: 02-11-2024 Covid-19 Vaccine () Covid-19 Vaccine () [facility] Start: 02-11-2024 Influenza vaccination [facility] Start: 12-10-2023 Influenza vaccination Influenza Vaccine (#1) [facility] Comment on above: Postponed from 02/10/2023 (Declined at t his time) Start: 11-14-2023 End: 11-14-2023 Patient encounter procedure 11/14/2023 1:20 PM EDT Office Visit OB/Gynecology [address] [place] [id number] Jens Kendrick MD [address] [place] [id number] Annual OB/Gynecology Comment on above: Annual Start: 09-01-2023 End: 12-01-2023 Ascorbate [Mass/volume] in Serum or Plasma VITAMIN C Lab Routine Iron deficiency anemia, unspecified iron deficiency anemia type History of anemia Expected: 09/01/2023, Expires: 12/01/2023 [facility] Work Phone: Comment on above: Expected: 09/01/2023, Expires: Start: 09-01-2023 End: 12-01-2023 CBC W Auto Differential panel - Blood CBC + DIFF Lab STAT Iron deficiency anemia, unspecified iron deficiency anemia type History of anemia Expected: 09/01/2023, Expires: 12/01/2023 [facility] Work Phone: Comment on above: Expected: 09/01/2023, Expires: 4 Start: 09-01-2023 End: 12-01-2023 Ferritin [Mass/volume] in Serum or Plasma FERRITIN BLD Lab Routine Iron deficiency anemia, unspecified iron deficiency anemia type History of anemia Expected: 09/01/2023, Expires: 12/01/2023 [facility] Work Phone: Comment on above: Expected: 09/01/2023, Expires: 4 Start: 09-01-2023 End: 12-01-2023 Iron and Iron binding capacity panel - Serum or Plasma IRON + TIBC Lab Routine Iron deficiency anemia, unspecified iron deficiency anemia type History of anemia Expected: 09/01/2023, Expires: 12/01/2023 [facility] Work Phone: Comment on above: Expected: 09/01/2023, Expires: 4 Start: 08-22-[address] [facility] Start: 08-21-2023 Patient discharge [facility] Start: 08-20-[address] [facility] Start: 08-19-2023 Admission procedure [facility] Start: 08-19-2023 Antibody to gastric parietal cell measurement [facility] Start: 08-19-2023 Serum immunofixation [facility] Start: 08-19-2023 End: 08-19-[address] [facility] Start: 08-19-2023 Care planning and problem solving actions [facility] Start: 08-19-2023 Vitamin D, 1,25-dihydroxy measurement [facility] Start: 08-18-2023 Referral to gastroenterology service [facility] Start: 08-18-2023 Respiratory secretion precautions [facility] Start: 08-18-[address] [facility] Start: 08-18-[address]iac [address] [facility] Start: 08-18-2023 Referral to ranch rider [facility] Start: 08-18-[address] [facility] Start: 08-17-2023 Following clinical pathway protocol [facility] Start: 08-17-2023 Assessment of risk of venous thromboembolism [facility] Start: 08-17-[address] Fall prevention [facility] Start: 08-17-2023 Incentive [address]irometry [facility] Start: 08-17-2023 Inhalation therapy procedure [facility] Start: 08-17-2023 Insertion of catheter into peripheral vein [facility] Start: 08-17-2023 Introduction of urinary catheter [facility] Start: 08-17-2023 Measuring intake and output [facility] Start: 08-17-2023 [address]xygen therapy [facility] Start: 08-17-2023 Providing care according to standard [facility] Start: 08-17-2023 Provision of activity privileges [facility] Start: 08-17-2023 Referral to occupational therapist [facility] Start: 08-17-2023 Referral to service [facility] Start: 08-17-2023 Taking nasal swab [facility] Start: 08-17-2023 End: 08-18-[address] [facility] Start: 08-17-2023 Respiratory pathogens DNA and RNA panel - Respiratory specimen by REZA with probe detection [facility] Start: 08-17-2023 Verification routine [facility] Start: 08-17-2023 Admission procedure [facility] Start: 08-06-2023 HPV TESTING HPV TESTING [facility] Start: 08-06-2023 PAP TESTING PAP TESTING [facility] Start: 08-06-2023 Screening for malignant neoplasm of cervix [facility] Start: 07-25-2023 End: 10-24-2023 COPPER BLOOD COPPER BLOOD Lab Routine Iron deficiency anemia, unspecified iron deficiency anemia type Anemia, unspecified type 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 Hospital discharge follow-up Expected: 07/25/2023, Expires: 10/24/2023 [facility] Work Phone: Comment on above: Expected: 07/25/2023, Expires: Start: 07-25-2023 End: 07-25-2024 GLIADIN (DEAMINATED) ABS GLIADIN (DEAMINATED) ABS Lab Routine Iron deficiency anemia, unspecified iron deficiency anemia type Anemia, unspecified type Expected: 07/25/2023, Expires: 07/25/2024 [facility] Work Phone: Comment on above: Expected: 07/25/2023, Expires: 5 Start: 07-25-2023 End: 10-24-2023 Pyridoxine [Mass/volume] in Serum or Plasma VITAMIN B6/PYRIDOXIN Lab Routine Iron deficiency anemia, unspecified iron deficiency anemia type Anemia, unspecified type 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 Hospital discharge follow-up Expected: 07/25/2023, Expires: 10/24/2023 [facility] Work Phone: Comment on above: Expected: 07/25/2023, Expires: 4 Start: 07-25-2023 End: 07-25-2024 Tissue transglutaminase Ab panel - Serum TRANSGLUTAMINASE ABS Lab Routine Iron deficiency anemia, unspecified iron deficiency anemia type Anemia, unspecified type Expected: 07/25/2023, Expires: 07/25/2024 [facility] Work Phone: Comment on above: Expected: 07/25/2023, Expires: 5 Start: 07-25-2023 End: 10-24-2023 VITAMIN B1 (THIAMINE), WHOLE BLOOD VITAMIN B1 (THIAMINE), WHOLE BLOOD Lab Routine Iron deficiency anemia, unspecified iron deficiency anemia type Anemia, unspecified type 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 Hospital discharge follow-up Expected: 07/25/2023, Expires: 10/24/2023 [facility] Work Phone: Comment on above: Expected: 07/25/2023, Expires: 4 Start: 07-25-2023 End: 10-24-2023 VON WILLEBRAND DX PANEL VON WILLEBRAND DX PANEL Lab Routine Iron deficiency anemia, unspecified iron deficiency anemia type Anemia, unspecified type 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 Hospital discharge follow-up Expected: 07/25/2023, Expires: 10/24/2023 [facility] Work Phone: Comment on above: Expected: 07/25/2023, Expires: 4 Start: 07-25-2023 End: 10-24-2023 Zinc [Mass/volume] in Serum or Plasma ZINC BLD Lab Routine Iron deficiency anemia, unspecified iron deficiency anemia type Anemia, unspecified type 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 Hospital discharge follow-up Expected: 07/25/2023, Expires: 10/24/2023 [facility] Work Phone: Comment on above: Expected: 07/25/2023, Expires: Start: 07-18-[address]23 Patient discharge [facility] Start: 07-17-2023 Thyroid stimulating hormone measurement [facility] Start: 07-17-2023 Troponin I measurement [facility] Start: 07-17-[address] [facility] Start: 07-17-2023 Referral to ranch rider [facility] Start: 07-17-2023 Inhalation therapy procedure [facility] Start: 07-16-2023 Following clinical pathway protocol [facility] Start: 07-16-2023 Ambulation without limitation [facility] Start: 07-16-2023 Assessment of risk of venous thromboembolism [facility] Start: 07-16-2023 Contact precautions [facility] Start: 07-16-2023 Incentive spirometry [facility] Start: 07-16-2023 Insertion of catheter into peripheral vein [facility] Start: 07-16-2023 Measuring intake and output [facility] Start: 07-16-2023 Oxygen therapy [facility] Start: 07-16-2023 Providing care according to standard [facility] Start: 07-16-2023 Respiratory secretion precautions [facility] Start: 07-16-2023 Vitamin B12 measurement [facility] Start: 07-16-[address] [facility] Start: 07-16-2023 Verification routine [facility] Start: 07-16-2023 Admission procedure [facility] Start: 07-13-2023 Emergency department visit high/urgent severity EMERGENCY DEPT VISIT MOD MDM [facility] Start: 07-13-2023 Iadna respiratry probe & rev trnscr 3-5 targets RESP VIRUS 3-[address] [facility] Start: 07-13-2023 Radiologic exam chest single view X-RAY EXAM CHEST [address] [facility] Start: 07-13-[address] [facility] Start: 06-12-2023 Depression Assessment Depression Assessment [facility] Start: 05-01-2023 End: 07-31-2023 Choriogonadotropin ( test) [Presence] in Urine HCG QUAL UR Lab Routine Menstrual period late Expected: 05/01/2023, Expires: 07/31/2023 [facility] Work Phone: Comment on above: Expected: 05/01/2023, Expires: 4 Start: 05-01-2023 End: 07-31-2023 Ferritin [Mass/volume] in Serum or Plasma [facility] Work Phone: Comment on above: Expected: 05/01/2023, Expires: 4 Start: 05-01-2023 End: 07-31-2023 Iron and Iron binding capacity panel - Serum or Plasma [facility] Work Phone: Comment on above: Expected: 05/01/2023, Expires: 4 Start: 02-10-2023 Influenza vaccination Influenza Vaccine (#1) [facility] Start: 06-12-2022 Depression Assessment Depression Assessment [facility] Start: 03-02-[address] [facility] Work Phone: Start: 02-10-2022 Influenza vaccination [facility] Start: 01-27-2022 Adult depression screening assessment DEPRESSION SCREENING [facility] Start: 12-09-2021 Influenza vaccination INFLUENZA (#1) [facility] Comment on above: Postponed from 02/10/2021 (Declined at t his time) Start: 09-06-2021 End: 11-06-2021 Comprehensive metabolic 2000 panel - Serum or Plasma [facility] Work Phone: Comment on above: Expected: 09/06/2021, Expires: 2 Start: 09-06-2021 End: 11-06-2021 Helicobacter pylori IgG Ab [Presence] in Serum or Plasma by Immunoassay [facility] Work Phone: Comment on above: Expected: 09/06/2021, Expires: 2 Start: 09-06-2021 End: 11-06-2021 Lipase [Enzymatic activity/volume] in Serum or Plasma [facility] Work Phone: Comment on above: Expected: 09/06/2021, Expires: 2 Start: 06-12-2021 DEPRESSION ASSESSMENT DEPRESSION ASSESSMENT [facility] Start: 08-24-1995 COVID-19 VACCINE (1) COVID-19 VACCINE (1) [facility] Start: 02-23-1991 COVID-19 VACCINE (#1) COVID-19 VACCINE (#1) [facility] Start: 1990 HEPATITIS B (1 of 3 - 3-dose series) HEPATITIS B (1 of 3 - 3-dose series) [facility] Start: 1990 Hepatitis B Vaccine (1 of 3 - 3-dose series) Hepatitis B Vaccine (1 of 3 - 3-dose series) [facility] Alanine aminotransfe rase [Enzymatic activity/volume] in Serum or Plasma [facility] Alanine aminotransfe rase [Enzymatic activity/volume] in Serum or Plasma [facility] Albumin [Mass/volume ] in Serum or Plasma [facility] Albumin [Mass/volume ] in Serum or Plasma [facility] Albumin [Moles/volum e] in Serum or Plasma [facility] Albumin/Globulin ratio [facility] Alkaline phosphatase [Enzymatic activity/volume] in Serum or Plasma [facility] Alkaline phosphatase [Enzymatic activity/volume] in Serum or Plasma [facility] Anion gap measurement [facility] Anion gap measurement [facility] Anion gap measurement [facility] Antibody to lupus La protein measurement [facility] Antibody to SS-A measurement [facility] Aspartate aminotrans ferase [Enzymatic activity/volume] in Serum or Plasma [facility] Aspartate aminotrans ferase [Enzymatic activity/volume] in Serum or Plasma [facility] Bacteria identified in Urine by Culture Urine Culture [facility] Work Phone: Bacteria identified in Urine by Culture URINE CULTURE Microbiology Routine Vaginal discharge 05/01/2023 1:46 PM EST [facility] Work Phone: Beef IgE Ab [Units/v olume] in Serum [facility] Bilirubin, total measurement [facility] Bilirubin, total measurement [facility] BUN/Creatinine ratio [facility] BUN/Creatinine ratio [facility] BUN/Creatinine ratio [facility] Calcium [Mass/volume ] in Serum or Plasma [facility] Calcium [Mass/volume ] in Serum or Plasma [facility] Calcium [Mass/volume ] in Serum or Plasma [facility] Carbon dioxide, tota l [Moles/volume] in Serum or Plasma [facility] Carbon dioxide, tota l [Moles/volume] in Serum or Plasma [facility] Carbon dioxide, tota l [Moles/volume] in Serum or Plasma [facility] Centromere protein B Ab [Units/volume] in Serum [facility] Chloride [Moles/volu me] in Serum or Plasma [facility] Chloride [Moles/volu me] in Serum or Plasma [facility] Chloride [Moles/volu me] in Serum or Plasma [facility] Chocolate IgE Ab [Units/volume] in Serum [facility] Chromatin Ab [Units/ volume] in Serum or Plasma [facility] Codfish IgE Ab [Units/volume] in Serum [facility] COPPER BLOOD COPPER BLOOD Lab Routine Iron deficiency anemia, unspecified iron deficiency anemia type Anemia, unspecified type 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 Hospital discharge follow-up 07/26/2023 10:10 AM [facility] [email or web address] Work Phone: Winlock IgE Ab [Units/v olume] in Serum [facility] COVID & INFLUENZA A/ B & RSV NAAT, ROUTINE COVID & INFLUENZA A/B & RSV NAAT, ROUTINE Microbiology Routine Acute cough 05/01/2023 2:19 PM [facility] [place] [facility] Work Phone: Cow milk IgE Ab [Units/volume] in Serum [facility] Creatinine [Moles/vo lume] in Serum or Plasma [facility] Creatinine [Moles/vo lume] in Serum or Plasma [facility] Creatinine [Moles/vo lume] in Serum or Plasma [facility] End: 08-07-2025 CT Chest WO contrast CT CHEST WO IVCON Radiology Routine Chronic cough 1 Occurrences starting 07/08/2024 until 08/07/2025 [facility] Work Phone: Comment on above: 1 Occurrences starting 07/08/2024 until 08/07/2025 CT Chest WO contrast CT CHEST [facility] Radiology Routine Chronic cough 07/25/2024 9:52 AM EST [facility] Work Phone: DNA double strand Ab [Units/volume] in Serum [facility] Electrophoresis: [id number] [facility] Electrophoresis: tristan ma globulin [facility] ENTERIC BACTERIAL PA ROBBIE BY PCR ENTERIC BACTERIAL PANEL BY PCR Lab Routine Generalized abdominal pain Ordered: 09/06/2021 [facility] Work Phone: Comment on above: Ordered: 09/06/2021 Erythrocyte mean corpuscular volume determination [facility] Erythrocyte mean corpuscular volume determination [facility] Erythrocyte mean corpuscular volume determination [facility] Folate [Mass/volume] in Serum or Plasma [facility] Gastrin [Mass/volume ] in Serum or Plasma [facility] GLIADIN (DEAMINATED) ABS GLIADIN (DEAMINATED) ABS Lab Routine Iron deficiency anemia, unspecified iron deficiency anemia type Anemia, unspecified type 07/26/2023 10:10 AM [facility] Work Phone: Gliadin peptide IgA Ab [Units/volume] in Serum [facility] Gliadin peptide IgG Ab [Units/volume] in Serum [facility] Globulin measurement [facility] Glucose [Mass/volume ] in Serum or Plasma [facility] Glucose [Mass/volume ] in Serum or Plasma [facility] Glucose [Mass/volume ] in Serum or Plasma [facility] Helicobacter pylori Ag [Presence] in Stool by Immunoassay H PYLORI AG BY EIA,STOOL Microbiology Routine Generalized abdominal pain Ordered: 09/08/2021 [facility] Work Phone: Comment on above: Ordered: 09/08/2021 Hematocrit [Volume Fraction] of Blood [facility] Hematocrit [Volume Fraction] of Blood [facility] Hematocrit [Volume Fraction] of Blood [facility] Hemoglobin [Mass/vol ume] in Blood [facility] Hemoglobin [Mass/vol ume] in Blood [facility] Hemoglobin [Mass/vol ume] in Blood [facility] IgA [Mass/volume] in Serum or Plasma [facility] IgE [Units/volume] i n Serum or Plasma [facility] IgG [Mass/volume] in Serum or Plasma [facility] IgG subclass 1 [Mass/volume] in Serum [facility] IgG subclass 2 [Mass/volume] in Serum [facility] IgG subclass 3 [Mass/volume] in Serum [facility] IgG subclass 4 [Mass/volume] in Serum [facility] IgM [Mass/volume] in Serum or Plasma [facility] Influenza virus A an d B RNA and SARS-CoV-2 (COVID-19) N gene panel - Respiratory specimen by REZA with probe detection COVID WITH FLUA+B, ROUTINE Microbiology Routine Cough 09/06/2021 3:40 PM EDT [facility] Work Phone: Intrinsic factor blo cking Ab [Units/volume] in Serum [facility] Iron [Mass/mass] in Unspecified specimen [facility] Iron and Iron bindin g capacity panel - Serum or Plasma [facility] Iron saturation [Mas s Fraction] in Serum or Plasma [facility] Lisbet-1 extractable nuc lear Ab [Units/volume] in Serum [facility] Leukocytes [#/volume ] in Blood [facility] Leukocytes [#/volume ] in Blood [facility] Leukocytes [#/volume ] in Blood [facility] Magnesium [Mass/volu me] in Serum or Plasma [facility] Magnesium [Mass/volu me] in Serum or Plasma [facility] Mean corpuscular hem oglobin concentration determination [facility] Mean corpuscular hem oglobin concentration determination [facility] Mean corpuscular hem oglobin concentration determination [facility] Mean corpuscular hem oglobin determination [facility] Mean corpuscular hem oglobin determination [facility] Mean corpuscular hem oglobin determination [facility] Measurement of immunoglobulin A in serum specimen [facility] Measurement of renal function [facility] Measurement of renal function [facility] Measurement of renal function [facility] Neutrophil count [facility] Neutrophil count [facility] Neutrophil count [facility] Neutrophil cytoplasm ic Ab.classic [Units/volume] in Serum [facility] Neutrophil percent differential count [facility] Neutrophil percent differential count [facility] Neutrophil percent differential count [facility] P-ANCA measurement [facility] Patient Education [facility] Work Phone: Patient referral [facility] Work Phone: Peanut IgE Ab [Units/volume] in Serum [facility] Platelets [#/volume] in Blood [facility] Platelets [#/volume] in Blood [facility] Platelets [#/volume] in Blood [facility] Pork IgE Ab [Units/v olume] in Serum [facility] Potassium [Moles/vol ume] in Serum or Plasma [facility] Potassium [Moles/vol ume] in Serum or Plasma [facility] Potassium [Moles/vol ume] in Serum or Plasma [facility] Protein electrophore sis panel - Serum or Plasma [facility] Pyridoxine [Mass/vol ume] in Serum or Plasma VITAMIN B6/PYRIDOXIN Lab Routine Iron deficiency anemia, unspecified iron deficiency anemia type Anemia, unspecified type 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 Hospital discharge follow-up 07/26/2023 10:10 AM [facility] [email or web address] Work Phone: Red blood cell count [facility] Red blood cell count [facility] Red blood cell count [facility] Red cell distributio n width determination [facility] Red cell distributio n width determination [facility] Red cell distributio n width determination [facility] MEDICAL GENETICIST antibody measurement [facility] IgE Ab [Units/volume] in Serum [facility] SCL-70 extractable n uclear Ab [Units/volume] in Serum by Immunoassay [facility] Serum inorganic phos phate measurement [facility] Serum inorganic phos phate measurement [facility] Shrimp IgE Ab [Units/volume] in Serum [facility] Michael extractable nu clear Ab [Presence] in Serum [facility] Sodium [Moles/volume ] in Serum or Plasma [facility] Sodium [Moles/volume ] in Serum or Plasma [facility] Sodium [Moles/volume ] in Serum or Plasma [facility] Soybean IgE Ab [Units/volume] in Serum [facility] Tissue transglutamin ase Ab panel - Serum TRANSGLUTAMINASE ABS Lab Routine Iron deficiency anemia, unspecified iron deficiency anemia type Anemia, unspecified type 07/26/2023 10:10 AM [facility] Work Phone: Tissue transglutamin ase IgA Ab [Units/volume] in Serum [facility] Total protein measurement [facility] Total protein measurement [facility] Tuna IgE Ab [Units/v olume] in Serum [facility] UA DIP, URINE (POC) Chun bermeo [facility] Work Phone: Comment on above: Ordered: 09/06/2021 Urea nitrogen [Mass/ volume] in Serum or Plasma [facility] Urea nitrogen [Mass/ volume] in Serum or Plasma [facility] Urea nitrogen [Mass/ volume] in Serum or Plasma [facility] End: 10-06-2022 Us abdominal real time w/image limited US ABD RT UPPER QUADRANT Radiology Routine Generalized abdominal pain 1 Occurrences starting 09/06/2021 until 10/06/2022 [facility] Work Phone: Comment on above: 1 Occurrences starting 09/06/2021 until 10/06/2022 US Heart [facility] VITAMIN B1 (THIAMINE ), WHOLE BLOOD VITAMIN B1 (THIAMINE), WHOLE BLOOD Lab Routine Iron deficiency anemia, unspecified iron deficiency anemia type Anemia, unspecified type 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 Hospital discharge follow-up 07/26/2023 10:10 AM [facility] Work Phone: VON WILLEBRAND DX PANEL VON WILL EBRAND DX PANEL Lab Routine Iron deficiency anemia, unspecified iron deficiency anemia type Anemia, unspecified type 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 Hospital discharge follow-up 07/26/2023 10:10 AM [facility] Work Phone: Wheat IgE Ab [Units/ volume] in Serum [facility] Whole Egg IgE Ab [Units/volume] in Serum [facility] Zinc [Mass/volume] i n Serum or Plasma ZINC BLD Lab Routine Iron deficiency anemia, unspecified iron deficiency anemia type Anemia, unspecified type 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 Hospital discharge follow-up 07/26/2023 10:10 AM [facility] Work Phone: [facility] Immunizations Immunization Date Immunization Notes Care Provider Ivelisse galvan 11-28-2019 tetanus toxoid, redu binu diphtheria toxoid, and acellular pertussis vaccine, adsorbed Marlyn Zurawick INK TECHNICIAN.VETERINARY TOXICOLOGIST Work Phone: [facility] 11-24-2017 tetanus toxoid, redu binu diphtheria toxoid, and acellular pertussis vaccine, adsorbed Marlyn Zurawick INK TECHNICIAN.VETERINARY TOXICOLOGIST Work Phone: [facility] 03-22-2017 influenza, injectabl e, quadrivalent, preservative free [facility] 03-22-2017 influenza, seasonal, injectable [facility] 03-22-2017 Seasonal, quadrivale nt, recombinant, injectable influenza vaccine, preservative free Dr. Jamari Zhang Work Phone: [facility] 03-22-2017 influenza virus vacc ine, unspecified formulation Cris Rolle PA-C Work Phone: [facility] 03-09-2016 influenza, injectabl e, quadrivalent, preservative free [facility] 03-09-2016 influenza, seasonal, injectable [facility] 03-09-2016 Seasonal, quadrivale nt, recombinant, injectable influenza vaccine, preservative free Dr. Jamari Zahng Work Phone: [facility] 12-29-2015 tetanus toxoid, redu binu diphtheria toxoid, and acellular pertussis vaccine, adsorbed Marlyn Zurawick INK TECHNICIAN.VETERINARY TOXICOLOGIST Work Phone: [facility] Work Phone: 12-24-2013 tetanus toxoid, redu binu diphtheria toxoid, and acellular pertussis vaccine, adsorbed Marlyn Zurawick INK TECHNICIAN.VETERINARY TOXICOLOGIST Work Phone: [facility] 05-09-2012 Seasonal, quadrivale nt, recombinant, injectable influenza vaccine, preservative free Dr. Jamari Zhang Work Phone: [facility] 05-01-2009 novel Influenza-H1N1 -09, live virus for nasal administration Dr. Jamari Zhang Work Phone: [facility] 04-09-2009 influenza, injectabl e, quadrivalent, preservative free Dr. Jamari Zhang Work Phone: [facility] 04-09-2009 tetanus toxoid, redu binu diphtheria toxoid, and acellular pertussis vaccine, adsorbed Dr. Jamari Zhang Work Phone: [facility] 06-09-2008 influenza, injectabl e, quadrivalent, preservative free Dr. Jamari Zhang Work Phone: [facility] 03-06-2007 human papilloma viru s vaccine, quadrivalent Dr. Jamari Zhang Work Phone: [facility] 10-30-2006 human papilloma viru s vaccine, quadrivalent Dr. Jamari Zhang Work Phone: [facility] 2006 human papilloma viru s vaccine, quadrivalent Dr. Jamari Zhang Work Phone: [facility] 2006 meningococcal polysaccharide (groups A, C, Y and W-135) diphtheria toxoid conjugate vaccine (MCV4P) Dr. Jamari Zhang Work Phone: [facility] 08-04-2003 hepatitis B vaccine, pediatric or pediatric/adolescent dosage Dr. Jamari Zhang Work Phone: [facility] 02-03-2003 hepatitis B vaccine, pediatric or pediatric/adolescent dosage Dr. Jamari Zhang Work Phone: [facility] 01-06-2003 hepatitis B vaccine, pediatric or pediatric/adolescent dosage Dr. Jamari Zhang Work Phone: [facility] 01-06-2003 TD(adult) unspecifie d formulation Dr. Jamari Zhang Work Phone: [facility] 12-27-1995 diphtheria, tetanus toxoids and acellular pertussis vaccine Dr. Jamari Zhang Work Phone: [facility] 12-27-1995 diphtheria, tetanus toxoids and acellular pertussis vaccine, unspecified formulation Pina Wilson PA-C Work Phone: [facility] 12-27-1995 measles, mumps and rubella virus vaccine Dr. Jamari Zhang Work Phone: [facility] 12-27-1995 trivalent poliovirus vaccine, live, oral Dr. Jamari Zhang Work Phone: [facility] 04-06-1993 diphtheria, tetanus toxoids and acellular pertussis vaccine Dr. Jamari Zhang Work Phone: [facility] 04-06-1993 diphtheria, tetanus toxoids and acellular pertussis vaccine, unspecified formulation Pina Wilson PA-C Work Phone: [facility] 04-06-1992 diphtheria, tetanus toxoids and acellular pertussis vaccine Dr. Jamari Zhang Work Phone: [facility] 04-06-1992 diphtheria, tetanus toxoids and acellular pertussis vaccine, unspecified formulation Pina Wilson PA-C Work Phone: [facility] 04-06-1992 poliovirus vaccine, inactivated Dr. Jamari Zhang Work Phone: [facility] 01-08-1992 haemophilus influenz ae type b vaccine, PRP-T conjugate Dr. Jamari Zhang Work Phone: [facility] 01-08-1992 measles, mumps and rubella virus vaccine Dr. Jamari Zhang Work Phone: [facility] 08-28-1991 diphtheria, tetanus toxoids and acellular pertussis vaccine Dr. Jamari Zhang Work Phone: [facility] 08-28-1991 diphtheria, tetanus toxoids and acellular pertussis vaccine, unspecified formulation Pina Wislon PA-C Work Phone: [facility] 08-28-1991 haemophilus influenz ae type b vaccine, PRP-T conjugate Dr. Jamari Zhang Work Phone: [facility] 04-17-1991 diphtheria, tetanus toxoids and acellular pertussis vaccine Dr. Jamari Zhang Work Phone: [facility] 04-17-1991 diphtheria, tetanus toxoids and acellular pertussis vaccine, unspecified formulation Pina Wilson PA-C Work Phone: [facility] 04-17-1991 haemophilus influenz ae type b vaccine, PRP-T conjugate Dr. Jamari Zhang Work Phone: [facility] 04-17-1991 poliovirus vaccine, inactivated Dr. Jamari Zhang Work Phone: [facility] 1990 diphtheria, tetanus toxoids and acellular pertussis vaccine Dr. Jamari Zhang Work Phone: [facility] 1990 diphtheria, tetanus toxoids and acellular pertussis vaccine, unspecified formulation Pina Wilson PA-C Work Phone: [facility] 1990 haemophilus influenz ae type b vaccine, PRP-T conjugate Dr. Jamari Zhang Work Phone: [facility] 1990 poliovirus vaccine, inactivated Dr. Jamari Zhang Work Phone: [facility] Payers Date Payer Category Payer Self-pay [id number] 2022 Unknown [id number] 2017 Unknown 2016 Medicaid [employer] [id number] 2016-Present [phone] [address] [place] [address] Medicaid [id number] 2016 Medicaid [id number] Unknown [employer] [id number] Unknown [id number] Unknown [id number] Unknown [id number] Unknown [id number] Unknown [id number] Unknown [id number] Social History Date Type Detail Facility Start: 09-29-2011 End: 03-28-2022 Tobacco smoking status NHIS Never smoked tobacco [facility] Work Phone: Start: 09-29-2011 End: 03-28-2022 Tobacco use and exposure Smokeless tobacco non-user [facility] Work Phone: Start: 09-06-2021 End: 12-04-2024 Alcohol intake Ex-drinker (finding) [facility] Start: 03-23-2020 History SDOH Alcohol Binge 2 [facility] Start: 03-23-2020 History SDOH Financial 4 [facility] Start: 03-23-2020 History SDOH Food Worry 1 [facility] Start: 07-01-2019 Education 13 [facility] Start: 1990 Sex Assigned At Not on file [facility] Start: 08-27-2021 End: 03-28-2022 Exposure to SARS-CoV-2 (event) Not sure [facility] Start: 03-02-2022 End: 08-17-2023 Tobacco smoking status NHIS Unknown if ever smoked [facility] Start: 02-17-2020 None [facility] Start: 1990 Sex Assigned At Female W [facility] Start: 03-23-2020 End: 04-10-2023 History of Social function [facility] Start: 03-23-2020 End: 04-10-2023 Alcohol Use Disorder Identification Test - Consumption [AUDIT-C] [facility] Frequency of Alcohol Consumption Not on file [facility] How often do you hav e 6 or more drinks on 1 occasion? Less than monthly [facility] How hard is it for y ou to pay for the very basics like food, housing, medical care, and heating Not very hard [facility] (I/We) worried luiz er (my/our) food would run out before (I/we) got money to buy more. Never true [facility] NEGATED: Highlighted row [facility] Medical Equipment Procedure Code Equipment Code Equipment Origin al Text Equipment Identifier Dates Salpingectomy, laparoscopic THERESA 3GRM HEMOSTAT ABS FDA Start: 03-26-2020 Salpingectomy, laparoscopic THERESA 3GRM HEMOSTAT ABS FDA Start: 03-26-2020 Salpingectomy, laparoscopic THERESA 3GRM HEMOSTAT ABS FDA Start: 03-26-2020 Salpingectomy, laparoscopic THERESA 3GRM HEMOSTAT ABS FDA Start: 03-26-2020 Salpingectomy, laparoscopic THERESA 3GRM HEMOSTAT ABS FDA Start: 03-26-2020 Salpingectomy, laparoscopic THERESA 3GRM HEMOSTAT ABS FDA Start: 03-26-2020 Goals Date Patient Goal Desired Activity /State Functional Status Date Assessment Result Facility 08-21-2023 Functional status Ambulates;Bath room Privilege [facility] Work Phone: 07-18-2023 Functional status Activity Abili ty Independent [facility] Work Phone: 07-04-2014 Are you deaf, or do you have serious difficulty hearing No 07/04/2014 9:24 AM Reyna Pérez LPN No [facility] 07-04-2014 Are you blind, or do you have serious difficulty seeing, even when wearing glasses No 07/04/2014 9:24 AM Reyna Pérez LPN No [facility] 07-04-2014 Do you have serious difficulty walking or climbing stairs No 07/04/2014 9:24 AM Reyna Pérez LPN No [facility] 07-04-2014 Do you have difficul ty dressing or bathing No 07/04/2014 9:24 AM Reyna Pérez LPN No [facility] 07-04-2014 Because of a physica l, mental, or emotional condition, do you have difficulty doing errands alone such as visiting a physician's office or shopping No 07/04/2014 9:24 AM Reyna Pérez LPN No [facility] Mental Status Date Assessment Result Facility 08-21-2023 Cognitive function Voice/Name [facility] Work Phone: 08-17-2023 Cognitive function Level Of Cons ciousness Awake;Alert;Appropriate;Fol lows Commands [facility] Work Phone: 07-18-2023 Cognitive function Voice/Name [facility] Work Phone: 07-16-2023 Cognitive function Level Of Cons ciousness Awake;Alert;Appropriate;Fol lows Commands [facility] Work Phone: 07-13-2023 Cognitive function Level Of Cons ciousness Awake;Alert;Appropriate;Fol lows Commands [facility] Work Phone: 07-04-2014 Because of a physica l, mental, or emotional condition, do you have serious difficulty concentrating, remembering, or making decisions No 07/04/2014 9:24 AM EST Reyna Hernandez LPN No [facility] Clinical Notes 01-02-2020 to 12-11-2024 Telephone Encounter - Reyna Hernandez LPN - 12/11/2024 12:22 PM EDTTelephone Encounter - Reyna Hernandez LPN - 12/11/2024 12:22 PM EDTRPina shafer PA-C - 12/04/2024 12:43 PM EDT Note Date & Type Note Facility 12-11-2024 Telephone encounter Note Patient notified of results and provider's instructions. Patient verbalizes understanding. Reyna Hernandez LPN [facility] 12-11-2024 Miscellaneous Notes Patient notified of results and provider's instructions. Patient verbalizes understanding. Reyna Hernandez LPN Left message for pt to contact office. Reyna Hernandez LPN Overall labs are normal. Her one thyroid hormone is slightly low but her TSH is in normal range. Monitor this with repeat in 3 months. Order placed. Pina Wilson PA-C documented in this encounter [facility] 12-05-2024 Telephone encounter Note Left message for pt to contact office. Reyna Hernandez LPN [facility] 12-05-2024 Telephone encounter Note Overall labs are normal. Her one thyroid hormone is slightly low but her TSH is in normal range. Monitor this with repeat in 3 months. Order placed. Pina Wilson PA-C [facility] 12-04-2024 Note HNO ID: [id number] Author: PINA WILSON PA-C Service: ? Author Type: Physician Certified Art Therapist Type: Progress Notes Filed: 12/04/2024 13:15 Note Text: Chief Complaint Patient presents with: Anxiety: And depression LIVAN Harding is a 34 year old female who presents here today for Above Complaints.. Patient of Dr. Zhang's. Depression and Anxiety: - Severe symptoms, exacerbated by family issues. - Attending counseling sessions weekly. - Not currently seeing a psychiatrist. - History of Zoloft use since age 16; has not taken it in months. last fill was in 2022 for qty of 30. - Never took Zoloft consistently for 6 weeks to assess effectiveness. Weight Management: - Current weight in the 90s; previously in the 80s. - Goal weight is 110 lbs. - Prednisone prescribed by Dr. Callahan for weight gain and autoimmune gastritis. - Last seen by Dr. Callahan in August of last year. - Open to trying Remeron to increase appetite. 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 - Last colonoscopy in August of last year. Hypothyroidism: - Diagnosed during first . - Managed with medication during first ; returned to normal during second . - Has remained stable since. 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 - Hospitalized with influenza B, which affected the heart. - Vitamin C deficiency noted during hospitalization. Last 6 Encounter Wt Readings: Date: Wt: 12/04/2024 41.4 kg (91 lb 4 oz) 09/20/2024 41.1 kg (90 lb 8 oz) 07/16/2024 42.5 kg (93 lb 11.1 oz) 07/11/2024 40.4 kg (89 lb) 07/08/2024 40.8 kg (90 lb) 07/03/2024 41.9 kg (92 lb 6 oz) Past medical history, appointments, medications, allergies reviewed. Previous Medical History PAST MEDICAL HISTORY Diagnosis Date Anemia complicating (HCC) 12/25/2013 Chlamydia 11/2010 Dysthymic disorder Depression (non-psychotic) Hypothyroidism Iron deficiency depression 12/03/2012 Strain of unspecified muscle and tendon at ankle and foot level, right foot, initial encounter 10/13/2017 Previous Surgical History PAST SURGICAL HISTORY Procedure Laterality Date COLONOSCOPY SCREENING 08/21/2023 EGD W/O BRSH SPEC VARICIES INJ 08/21/2023 PAST SURGICAL HISTORY OF 05/20/2014 Right open reduction internal fixation clavicle TONSILLECTOMY [...] on File Prior to Visit Medication Sig cyanocobalamin (VITAMIN B-12) 1,000 mcg tab Take 1,000 mcg by mouth once daily. azithromycin (ZITHROMAX Z-INGE) 250 mg tablet 2 tablets by mouth first day then 1 tablet the next 4 days (Patient not taking: Reported on 09/20/2024) predniSONE (DELTASONE) 20 mg tablet Take 20 mg by mouth two times a day. FOLIC ACID ORAL Take 1 tablet by mouth two times a day. albuterol HFA (PROVENTIL HFA, VENTOLIN HFA) 90 mcg/actuation inhaler EVERY 4 HOURS NEEDED as needed for Wheezing/SOB ferrous sulfate (IRON) 325 mg (65 mg iron) tablet Take 1 tablet by mouth every Monday, Monday, and Monday. (Patient taking differently: Take 325 mg by mouth once daily.) fluticasone (FLONASE) 50 mcg/actuation nasal spray Use 2 Sprays in each nostril once daily. Rinse mouth after use. sertraline (ZOLOFT) 25 mg tablet Take 1 tablet by mouth once daily. ascorbic acid, vitamin C, (VITAMIN C) 500 [...] Never Smokeless tobacco: Never Vaping Use Vaping status: Never Used Substance Use Topics Alcohol use: Not Currently Drug use: No Review of Symptoms REVIEW OF SYSTEMS SEE HPI EXAM: BP 88/60 (BP Site: Left Arm, BP Position: Sitting, BP Cuff Size: Regular Adult) Pulse 77 Temp 36.8 ?C (98.3 ?F) Resp 16 Wt 41.4 kg (91 lb 4 oz) LMP 11/11/2024 (Approximate) SpO2 97% BMI 16.90 kg/m? General Appearance: Well appearing, alert, in no acute distress, well-hydrated, well nourished.. Neck: Supple, no adenopathy; thyroid (more content not included)... [facility] 12-04-2024 History of Present illness Narrative Chief Complaint Patient presents with: Anxiety: And depression HPI Carola Harding is a 34 year old female who presents here today for Above Complaints.. Patient of Dr. Zhang's. Depression and Anxiety: - Severe symptoms, exacerbated by family issues. - Attending counseling sessions weekly. - Not currently seeing a psychiatrist. - History of Zoloft use since age 16; has not taken it in months. last fill was in 2022 for qty of 30. - Never took Zoloft consistently for 6 weeks to assess effectiveness. Weight Management: - Current weight in the 90s; previously in the 80s. - Goal weight is 110 lbs. - Prednisone prescribed by Dr. Callahan for weight gain and autoimmune gastritis. - Last seen by Dr. Callahan in August of last year. - Open to trying Remeron to increase appetite. 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 - Last colonoscopy in August of last year. Hypothyroidism: - Diagnosed during first . - Managed with medication during first ; returned to normal during second . - Has remained stable since. 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 - Hospitalized with influenza B, which affected the heart. - Vitamin C deficiency noted during hospitalization. Last 6 Encounter Wt Readings: Date: Wt: 12/04/2024 41.4 kg (91 lb 4 oz) 09/20/2024 41.1 kg (90 lb 8 oz) 07/16/2024 42.5 kg (93 lb 11.1 oz) 07/11/2024 40.4 kg (89 lb) 07/08/2024 40.8 kg (90 lb) 07/03/2024 41.9 kg (92 lb 6 oz) Past medical history, appointments, medications, allergies reviewed. Previous Medical History PAST MEDICAL HISTORY Diagnosis Date Anemia complicating (HCC) 12/25/2013 Chlamydia 11/2010 Dysthymic disorder Depression (non-psychotic) Hypothyroidism Iron deficiency depression 12/03/2012 Strain of unspecified muscle and tendon at ankle and foot level, right foot, initial encounter 10/13/2017 Previous Surgical History PAST SURGICAL HISTORY Procedure Laterality Date COLONOSCOPY SCREENING 08/21/2023 EGD W/O BRSH SPEC VARICIES INJ 08/21/2023 PAST SURGICAL HISTORY OF 05/20/2014 Right open reduction internal fixation clavicle TONSILLECTOMY [...] on File Prior to Visit Medication Sig cyanocobalamin (VITAMIN B-12) 1,000 mcg tab Take 1,000 mcg by mouth once daily. azithromycin (ZITHROMAX Z-INGE) 250 mg tablet 2 tablets by mouth first day then 1 tablet the next 4 days (Patient not taking: Reported on 09/20/2024) predniSONE (DELTASONE) 20 mg tablet Take 20 mg by mouth two times a day. FOLIC ACID ORAL Take 1 tablet by mouth two times a day. albuterol HFA (PROVENTIL HFA, VENTOLIN HFA) 90 mcg/actuation inhaler EVERY 4 HOURS NEEDED as needed for Wheezing/SOB ferrous sulfate (IRON) 325 mg (65 mg iron) tablet Take 1 tablet by mouth every Monday, Monday, and Monday. (Patient taking differently: Take 325 mg by mouth once daily.) fluticasone (FLONASE) 50 mcg/actuation nasal spray Use 2 Sprays in each nostril once daily. Rinse mouth after use. sertraline (ZOLOFT) 25 mg tablet Take 1 tablet by mouth once daily. ascorbic acid, vitamin C, (VITAMIN C) 500 [...] Never Smokeless tobacco: Never Vaping Use Vaping status: Never Used Substance Use Topics Alcohol use: Not Currently Drug use: No Review of Symptoms REVIEW OF SYSTEMS SEE HPI EXAM: BP 88/60 (BP Site: Left Arm, BP Position: Sitting, BP Cuff Size: Regular Adult) Pulse 77 Temp 36.8 C (98.3 F) Resp 16 Wt 41.4 kg (91 lb 4 oz) LMP 11/11/2024 (Approximate) SpO2 97% BMI 16.90 kg/m General Appearance: Well appearing, alert, in no acute distress, well-hydrated, well nourished.. Neck: Supple, no adenopathy; thyroid symmetric, normal size, no bruits. Lungs: Lungs clear to auscultation. No wheezing, rhonchi, rales.. Heart: RRR without murmur, gallop, or rubs. No ectopy. Extremities: No deformities, edema, skin discoloration, clubbing or cyanosis. Good capillary refill. . Peripheral Pulses: Normal. Health Maintenance List Cervical Cancer Screening due on 08/06/2023 Depression Screening due on 10/29/2024 Anxiety Screening due on 10/29/2024 Covid-19 Vaccine( season) due on 07/08/2025 Influenza Vaccine(Season Ended) due on 02/10/2025 DTaP,Tdap,Td Vaccine(11 - Td or Tdap) due on 11/27/2029 Hepatitis B Vaccine Completed Hepatitis C Screening Completed HIV Screening Completed Data reviewed N/a Assessment and Plan 1. Severe episode of recurrent major depressive disorder, without psychotic features (HCC) (F33.2) 2. LIGIA (generalized anxiety disorder) (F41.1) - Symptoms are severe; patient is currently in counseling once a week but not under psychiatric care. - Restarting sertraline at 25 mg daily for 2 weeks, then increasing to 50 mg daily. - Initiating mirtazapine at bedtime to aid with depression and increase appetite; potential side effect of drowsiness discussed. - Prescriptions sent to [facility] pharmacy. 3. Iron deficiency anemia, unspecified iron deficiency anemia type (D50.9) 4. Anemia, unspecified type (D64.9) - Patient is taking iron supplements daily. - Scheduled follow-up with hematology next month; labs including iron levels, CBC, and B12 are already scheduled. 5. Autoimmune gastritis (K29.40) - Previously managed with prednisone prescribed by Dr. Callahan; patient reports mild weight gain with treatment. - Referral to gastroenterology for further management; consult sent to Dr. Callahan. 6. Encounter for lipid screening for cardiovascular disease (Z13.220) - Ordered lipid panel. 7. Screening for diabetes mellitus (Z13.1) - Ordered HbA1c. 8. Screening for depression (Z13.31) 9. Encounter for screening examination for other mental health and behavioral disorders (Z13.39) - Addressed during visit; patient is in counseling. 10. History of hyperthyroidism (Z86.39) - Previous history of slightly low TSH. - Ordered TSH level to monitor thyroid function. 11. Underweight (BMI < 18.5) (R63.6) - Current weight is stable at 90 lbs; goal weight is 110 lbs. - Initiated mirtazapine to aid with appetite and weight gain. - Follow-up with gastroenterology for further management. Pina Wilson PA-C Recording using [employer] software for draft documentation of the visit was discussed with the patient/authorized territory sales representative; all questions welcomed and answered. Patient/authorized territory sales representative agreed to proceed documented in this encounter [facility] 09-20-2024 Note HNO ID: [id number] Author: YANETH DAVENPORT, ? Service: ? Author Type: Nurse Practitioner Type: Progress Notes Filed: 09/20/2024 15:32 Note Text: Hematology Progress Note Carola Harding 1990 Encounter date: 09/20/2024 HPI: Carola Harding is a 34 year old female with a PMHx of myalgia. Notes that she has not really been worked up for any conditions that she is aware of. No routine health maintenance. Per chart review: Long standing history of iron deficiency anemia, anemia during . 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 Found to be pancytopenic during admission (result from [facility] scanned in). Counts have since recovered. PCP visit on 07/21/2022. Very fatigued. Sleeping a lot since discharge. Started about 3 weeks ago when she started to feel sick. Does not feel that she has fully recovered from admission. Denies recurrent fevers, chills of NS. No lumps or bumps. No bony aches or pains. Denies rash or skin changes. SOB and AMADOR improving. Abx for 10 days. Cough better. No CP, palpitations. Follow up with cardio scheduled. Denies PERRY, dizziness. No significant changes in bowel or bladder habits. No hx of GI workup. Notes that her daughter has been dx with celiac. No hx of scope. Does not follow any particular dietary restrictions. Edentulous. Denies PICA. Denies dark, tarry stools. No BRBPR. Does not feel that she is able to gain weight, no unintentional weight loss. Drinking ensures regularly. Denies abdominal pains. Has been on PO iron BID for >8 months. No significant improvement in iron studies with PO iron. Denies hematuria, hematochezia, hemoptysis, hematemesis. Menstrual cycles irregular - heavy last about 1-1.5 weeks Saturating 1 pad per 1.5 to 2 hours. Worse and more irregular since tubal ligation about 3 years. She follows with [facility]. Required IV iron with last 2 pregnancies. No follow up for RE. Has 5 children between the ages of 10 and 3. Hx of 5 miscarriages. Pt told that she lost a lot of blood during each delivery. Notes more significant bleeding with last two pregnancies. Required blood transfusion with 4th due to hemorrhage per SO. Believes it was just 1 unit. Mother and sister with hx of heavy bleeding. Denies any known personal or family hx of bleeding or clotting disorders. No hx of cancers. 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 Occasional cigarette once in a while OV 09/05/2023 Ms. Harding presents today with her SO for follow up of RE. She notes that this has been an ongoing issue for her and we reviewed that she has been iron deficient for many years with related exacerbations of RE throughout that time. Since last being seen she has had 5 doses IV iron sucrose 200mg, last dose on 08/11/2023. She reports tolerating IV iron well overall. Lincoln better after 2nd infusion. Denies any issues with bleeding or bruising. Periods irregular, no menses in last 6 weeks. Hcg performed at [facility] neg. No SOB, CP. She was admitted to [facility] on 08/19/23 for worsening abdominal pain, N/V. Denies fevers, chills or NS. No recurrent infections. During admission, cardiac meds for cardiomyopathy were discontinued. HR and BP has since stabilized. She notes that HR was dropping down into 30s and she felt very tired. She is currently being worked up by Dr. Callahan at [facility] for GI malabsorptive conditions. EGD and colonoscopy were both performed during admission, several labs still pending. Final path pending. She has follow up scheduled on 09/11/23. She denies changes in bowel habits. No diarrhea or vomiting. Pain has improved. We reviewed most recent labs and hospital labs which show improvement in HGB. Encouraged her and SO to follow up with GI to further investigate cause of her abd pain, malnutrition. Reviewed that she will likely require repeat IV iron administration. Dicussed hematology role in her care at this time and management of anemia, pt acknowledged. Seems to tolerate and respond well to IV iron administration. Interval hx: Pt presents today for follow up of RE, s/p IV iron. Admission end of June for influenza a. Noted hgb to be around 9. Iron low. RLS symptoms. She is now s/p IV iron sucrose 200 mg x5 last dose on 07/26/2024. Hgb has improved to 12.2 today. She notes a lot of family stress at home. Hasn't been eating as well due to stress. 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 On prednisone. Weight is stable today. She is planning to follow up with Dr. Callahan. Unable to afford ensures/boost. Denies any further heart issues. No bleeding. She is having regular periods. We reviewed that she is likely not absorbing well due to GI dysfunction, reviewed symptoms of RE and when to call. PAST MEDICAL HISTORY Diagnosis Date Anemia complicating (HCC) 12/25/2013 Chlamydia 11/2010 (more content not included)... [facility] 09-20-2024 History of Present illness Narrative Hematology Progress Note Carola Harding 1990 Encounter date: 09/20/2024 HPI: Carola Harding is a 34 year old female with a PMHx of myalgia. Notes that she has not really been worked up for any conditions that she is aware of. No routine health maintenance. Per chart review: Long standing history of iron deficiency anemia, anemia during . 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 Found to be pancytopenic during admission (result from [facility] scanned in). Counts have since recovered. PCP visit on 07/21/2022. Very fatigued. Sleeping a lot since discharge. Started about 3 weeks ago when she started to feel sick. Does not feel that she has fully recovered from admission. Denies recurrent fevers, chills of NS. No lumps or bumps. No bony aches or pains. Denies rash or skin changes. SOB and AMADOR improving. Abx for 10 days. Cough better. No CP, palpitations. Follow up with cardio scheduled. Denies PERRY, dizziness. No significant changes in bowel or bladder habits. No hx of GI workup. Notes that her daughter has been dx with celiac. No hx of scope. Does not follow any particular dietary restrictions. Edentulous. Denies PICA. Denies dark, tarry stools. No BRBPR. Does not feel that she is able to gain weight, no unintentional weight loss. Drinking ensures regularly. Denies abdominal pains. Has been on PO iron BID for >8 months. No significant improvement in iron studies with PO iron. Denies hematuria, hematochezia, hemoptysis, hematemesis. Menstrual cycles irregular - heavy last about 1-1.5 weeks Saturating 1 pad per 1.5 to 2 hours. Worse and more irregular since tubal ligation about 3 years. She follows with [facility]. Required IV iron with last 2 pregnancies. No follow up for RE. Has 5 children between the ages of 10 and 3. Hx of 5 miscarriages. Pt told that she lost a lot of blood during each delivery. Notes more significant bleeding with last two pregnancies. Required blood transfusion with 4th due to hemorrhage per SO. Believes it was just 1 unit. Mother and sister with hx of heavy bleeding. Denies any known personal or family hx of bleeding or clotting disorders. No hx of cancers. 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 Occasional cigarette once in a while OV 09/05/2023 Ms. Harding presents today with her SO for follow up of RE. She notes that this has been an ongoing issue for her and we reviewed that she has been iron deficient for many years with related exacerbations of RE throughout that time. Since last being seen she has had 5 doses IV iron sucrose 200mg, last dose on 08/11/2023. She reports tolerating IV iron well overall. Lincoln better after 2nd infusion. Denies any issues with bleeding or bruising. Periods irregular, no menses in last 6 weeks. Hcg performed at [facility] neg. No SOB, CP. She was admitted to [facility] on 08/19/23 for worsening abdominal pain, N/V. Denies fevers, chills or NS. No recurrent infections. During admission, cardiac meds for cardiomyopathy were discontinued. HR and BP has since stabilized. She notes that HR was dropping down into 30s and she felt very tired. She is currently being worked up by Dr. Callahan at [facility] for GI malabsorptive conditions. EGD and colonoscopy were both performed during admission, several labs still pending. Final path pending. She has follow up scheduled on 09/11/23. She denies changes in bowel habits. No diarrhea or vomiting. Pain has improved. We reviewed most recent labs and hospital labs which show improvement in HGB. Encouraged her and SO to follow up with GI to further investigate cause of her abd pain, malnutrition. Reviewed that she will likely require repeat IV iron administration. Dicussed hematology role in her care at this time and management of anemia, pt acknowledged. Seems to tolerate and respond well to IV iron administration. Interval hx: Pt presents today for follow up of RE, s/p IV iron. Admission end of June for influenza a. Noted hgb to be around 9. Iron low. RLS symptoms. She is now s/p IV iron sucrose 200 mg x5 last dose on 07/26/2024. Hgb has improved to 12.2 today. She notes a lot of family stress at home. Hasn't been eating as well due to stress. 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 On prednisone. Weight is stable today. She is planning to follow up with Dr. Callahan. Unable to afford ensures/boost. Denies any further heart issues. No bleeding. She is having regular periods. We reviewed that she is likely not absorbing well due to GI dysfunction, reviewed symptoms of RE and when to call. PAST MEDICAL HISTORY Diagnosis Date Anemia complicating (HCC) 12/25/2013 Chlamydia 11/2010 Dysthymic disorder Depression (non-psychotic) Hypothyroidism Iron deficiency depression 12/03/2012 Strain of unspecified muscle and tendon at ankle and foot level, right foot, initial encounter 10/13/2017 PAST SURGICAL HISTORY Procedure Laterality Date COLONOSCOPY SCREENING 08/21/2023 EGD W/O [facility] SPEC VARICIES INJ 08/21/2023 PAST SURGICAL HISTORY OF 05/20/2014 Right open reduction internal fixation clavicle TONSILLECTOMY HX TYMPANOSTOMY LOCAL/TOPICAL ANESTHESIA Current Outpatient Medications Medication Sig Dispense Refill cyanocobalamin (VITAMIN B-12) 1,000 mcg tab Take 1,000 mcg by mouth once daily. predniSONE (DELTASONE) 20 mg tablet Take 20 mg by mouth two times a day. FOLIC ACID ORAL Take 1 tablet by mouth two times a day. albuterol HFA (PROVENTIL HFA, VENTOLIN HFA) 90 mcg/actuation inhaler EVERY 4 HOURS NEEDED as needed for Wheezing/SOB ferrous sulfate (IRON) 325 mg (65 mg iron) tablet Take 1 tablet by mouth every Monday, Monday, and Monday. (Patient taking differently: Take 325 mg by mouth once daily.) 90 tablet 1 fluticasone (FLONASE) 50 mcg/actuation nasal spray Use 2 Sprays in each nostril once daily. Rinse mouth after use. 1 Each 0 sertraline (ZOLOFT) 25 mg tablet Take 1 tablet by mouth once daily. 30 tablet 0 ascorbic acid, vitamin C, (VITAMIN C) 500 mg tablet Take 1 tablet by mouth two times a day. 60 tablet 2 ibuprofen (MOTRIN) 600 mg tablet TAKE 1 TABLET BY MOUTH THREE TIMES DAILY NEEDED FOR PAIN OR FEVER azithromycin (ZITHROMAX Z-INGE) 250 mg tablet 2 tablets by mouth first day then 1 tablet the next 4 days (Patient not taking: Reported on 09/20/2024) 6 tablet 0 Food Supplement, Lactose-Free (ENSURE ACTIVE MUSCLE HEALTH) liqd Take 237 mL by mouth four times daily for 7 days. 6636 mL 12 No current facility-administered medications for this visit. ALLERGIES Allergen Reactions Amoxicillin Hives Lactulose Hives Percocet [Oxycodone* Other: See Comments ABDOMINAL PAIN Suprax [Cefixime] Hives FAMILY HISTORY Problem Relation Age of Onset [...] Never Smokeless tobacco: Never Vaping Use Vaping status: Never Used Substance Use Topics Alcohol use: Not Currently Drug use: No Review of Systems: Negative except as noted in HPI reviewed 09/20/2024 Physical Exam: BP 91/61 Pulse 67 Temp (Src) 97.4 (Temporal) Wt 90 lb 8 oz (41.1kg) SpO2 99% LMP 09/18/2023 General: Age-appropriate, Appears thin, frail. HEENT: Normocephalic, no sclera icterus, external ears normal, oral cavity clear. edentulous (tooth loss with 2nd ) Neck: Supple, no thyroid nodules, no JVD. Chest: Clear diminished, bilaterally, no wheezes, not labored. Heart: Normal S1 and S2, no abnormal sounds Abdomen: Soft, nontender, nondistended, Neurological: Cranial nerves II through XII are intact bilaterally, so focal deficits. Skin: Warm and dry with no rashes or ulcerations. Nodes: No palpable adenopathy in the cervical, supraclavicular, infraclavicular, or axillary regions. Hematologic: no bruising or petechiae. Psychiatric: Alert and oriented x3. I have performed the physical exam today (07/11/2024 ) and have edited the note to correlate with current findings. Lab Results Component Value Date WBC 3.02 (L) 09/20/2024 HB 12.1 09/20/2024 MCV 85.5 09/20/2024 PLT 189 09/20/2024 Lab Results Component Value Date NA 143 07/08/2024 K 3.6 (L) 07/08/2024 CO2 28 07/08/2024 BUN 11 07/08/2024 CREAT 0.66 07/08/2024 TBILI <0.2 (L) 07/08/2024 TPROT 6.1 (L) 07/08/2024 ALB 3.8 (L) 07/08/2024 ALKPHOS 58 07/08/2024 ALT 11 07/08/2024 AST 17 07/08/2024 Ferritin Date Value Ref Range Status 07/08/2024 7.1 (L) 14.7 - 205.1 ng/mL Final 10/30/2023 42.0 14.7 - 205.1 ng/mL Final 09/05/2023 124.0 14.7 - 205.1 ng/mL Final 07/21/2023 36.5 14.7 - 205.1 ng/mL Final 05/01/2023 15.5 14.7 - 205.1 ng/mL Final Iron Date Value Ref Range Status 07/08/2024 13 (L) 41 - 186 ug/dL Final 10/30/2023 97 41 - 186 ug/dL Final 09/05/2023 93 41 - 186 ug/dL Final 07/21/2023 32 (L) 41 - 186 ug/dL Final 05/01/2023 17 (L) 41 - 186 ug/dL Final TIBC Date Value Ref Range Status 07/08/2024 367 232 - 386 ug/dL Final 10/30/2023 357 232 - 386 ug/dL Final 09/05/2023 286 232 - 386 ug/dL Final 07/21/2023 382 232 - 386 ug/dL Final 05/01/2023 447 (H) 232 - 386 ug/dL Final Transferrin Saturation Date Value Ref Range Status 07/08/2024 3.5 (L) 15.0 - 57.0 % Final 10/30/2023 27.2 15.0 - 57.0 % Final 09/05/2023 32.5 15.0 - 57.0 % Final 07/21/2023 8.4 (L) 15.0 - 57.0 % Final 05/01/2023 3.8 (L) 15.0 - 57.0 % Final Assessment and Plan: Ms. Harding is a pleasant 34 year old woman presenting for evaluation of anemia. Anemia - some component of RE, malabsorption due to malnutrition, chronic blood loss, autoimmune gastritis - we reviewed s/s of iron deficiency, such as RLS, in detail today as well as when to call. - No improvement with months of PO iron - s/p IV iron sucrose 200mg x 5 last dose on 08/11/2023, 07/26/2024 - Recent GI workup per 08/21/2023 admission for abd pain - EGD, colonoscopy, labs. Now following with Dr. Callahan. Encouraged to follow up with GI she reports that she hasn't been able to get in for an appt. - reviewed hematology role in managing anemia today, pt acknowledged. - monitor CBC, iron studies, b12. MMA. - repeat labs about every 3 months. Will call with iron studies, (still pending today) Follow up with PCP for routine health maintenance. Advised to call with any questions or concerns. Yaneth Davenport APRN.VETERINARY TOXICOLOGIST I spent a total of 30 minutes on the date of the service which included preparing to see the patient, [id number] patient care, completing clinical documentation, obtaining and/or reviewing separately obtained history, and counseling and educating the patient/family/caregiver. Portions of this note including HPI, ROS, impression/plan may have been copied forward as to provide important historical information essential in contributing to medical decision making. Documentation has been reviewed and edited as necessary to support clinical decision making for today's visit and to reflect my own independent evaluation of this patient. documented in this encounter [facility] 07-25-2024 History of Present illness Narrative Radiology Service Progress Note PATIENT NAME: Carola Harding DATE OF SERVICE: July 25, 2024 TIME: 12:44 PM PATIENT IDENTITY VERIFICATION COMPLETED USING TWO (2) IDENTIFIERS: Name and Date of confirmed by patient verbally. FALL SCREENING: Has the patient had 2 falls in the last year or 1 fall with injury or currently using an Ambulatory Assistive Device (Walker, Cane, Wheelchair, Crutches, etc.)? No PATIENT GENDER DATA: Assigned female at . status: : No status: NO. PATIENT RELEVANT IMPLANT DATA REVIEWED: Yes PATIENT PRESENTS WITH AN IMPLANTABLE OR ATTACHED CANDY DIPPER: No RADIOLOGY DEPARTMENT: CT; Exam(s) Completed: Chest PERIPHERAL IV DATA: Not applicable SIGNED BY: RT Carlo(Nicolasa) July 25, 2024 12:44 PM documented in this encounter [facility] 07-25-2024 Note HNO ID: [id number] Author: ОЛЬГА MUÑOZ RT(R) Service: ? Author Type: Bilingual Customer Service Type: Progress Notes Filed: 07/25/2024 12:45 Note Text: Radiology Service Progress Note PATIENT NAME: Carola Harding DATE OF SERVICE: July 25, 2024 TIME: 12:44 PM PATIENT IDENTITY VERIFICATION COMPLETED USING TWO (2) IDENTIFIERS: Name and Date of confirmed by patient verbally. FALL SCREENING: Has the patient had 2 falls in the last year or 1 fall with injury or currently using an Ambulatory Assistive Device (Walker, Cane, Wheelchair, Crutches, etc.)? No PATIENT GENDER DATA: Assigned female at . status: : No status: NO. PATIENT RELEVANT IMPLANT DATA REVIEWED: Yes PATIENT PRESENTS WITH AN IMPLANTABLE OR ATTACHED CANDY DIPPER: No RADIOLOGY DEPARTMENT: CT; Exam(s) Completed: Chest PERIPHERAL IV DATA: Not applicable SIGNED BY: RT Carlo(R) July 25, 2024 12:44 PM [facility] 07-18-2024 Telephone encounter Note Changed OV to same day as erik [facility] 07-18-2024 Miscellaneous Notes Changed OV to same day as erik Wallace Called patient but was unable to lvm due to mailbox is full. Elsi Wallace documented in this encounter [facility] 07-11-2024 Telephone encounter Note Called patient but was unable to lvm due to mailbox is full. Elsi [facility] 07-11-2024 Note HNO ID: [id number] Author: YANETH DAVENPORT, ? Service: ? Author Type: Nurse Practitioner Type: Progress Notes Filed: 07/12/2024 14:06 Note Text: Hematology Progress Note Carola Harding 1990 Encounter date: 07/11/2024 HPI: Carola Harding is a 33 year old female with a PMHx of myalgia. Notes that she has not really been worked up for any conditions that she is aware of. No routine health maintenance. Per chart review: Long standing history of iron deficiency anemia, anemia during . 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 Found to be pancytopenic during admission (result from [facility] scanned in). Counts have since recovered. PCP visit on 07/21/2022. Very fatigued. Sleeping a lot since discharge. Started about 3 weeks ago when she started to feel sick. Does not feel that she has fully recovered from admission. Denies recurrent fevers, chills of NS. No lumps or bumps. No bony aches or pains. Denies rash or skin changes. SOB and AMADOR improving. Abx for 10 days. Cough better. No CP, palpitations. Follow up with cardio scheduled. Denies PERRY, dizziness. No significant changes in bowel or bladder habits. No hx of GI workup. Notes that her daughter has been dx with celiac. No hx of scope. Does not follow any particular dietary restrictions. Edentulous. Denies PICA. Denies dark, tarry stools. No BRBPR. Does not feel that she is able to gain weight, no unintentional weight loss. Drinking ensures regularly. Denies abdominal pains. Has been on PO iron BID for >8 months. No significant improvement in iron studies with PO iron. Denies hematuria, hematochezia, hemoptysis, hematemesis. Menstrual cycles irregular - heavy last about 1-1.5 weeks Saturating 1 pad per 1.5 to 2 hours. Worse and more irregular since tubal ligation about 3 years. She follows with [facility]. Required IV iron with last 2 pregnancies. No follow up for RE. Has 5 children between the ages of 10 and 3. Hx of 5 miscarriages. Pt told that she lost a lot of blood during each delivery. Notes more significant bleeding with last two pregnancies. Required blood transfusion with 4th due to hemorrhage per SO. Believes it was just 1 unit. Mother and sister with hx of heavy bleeding. Denies any known personal or family hx of bleeding or clotting disorders. No hx of cancers. 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 Occasional cigarette once in a while OV 09/05/2023 Ms. Harding presents today with her SO for follow up of RE. She notes that this has been an ongoing issue for her and we reviewed that she has been iron deficient for many years with related exacerbations of RE throughout that time. Since last being seen she has had 5 doses IV iron sucrose 200mg, last dose on 08/11/2023. She reports tolerating IV iron well overall. Lincoln better after 2nd infusion. Denies any issues with bleeding or bruising. Periods irregular, no menses in last 6 weeks. Hcg performed at [facility] neg. No SOB, CP. She was admitted to [facility] on 08/19/23 for worsening abdominal pain, N/V. Denies fevers, chills or NS. No recurrent infections. During admission, cardiac meds for cardiomyopathy were discontinued. HR and BP has since stabilized. She notes that HR was dropping down into 30s and she felt very tired. She is currently being worked up by Dr. Callahan at [facility] for GI malabsorptive conditions. EGD and colonoscopy were both performed during admission, several labs still pending. Final path pending. She has follow up scheduled on 09/11/23. She denies changes in bowel habits. No diarrhea or vomiting. Pain has improved. We reviewed most recent labs and hospital labs which show improvement in HGB. Encouraged her and SO to follow up with GI to further investigate cause of her abd pain, malnutrition. Reviewed that she will likely require repeat IV iron administration. Dicussed hematology role in her care at this time and management of anemia, pt acknowledged. Seems to tolerate and respond well to IV iron administration. Interval hx: Pt presents today for follow up of RE. Recent admission for influenza a. Noted hgb to be around 9. Iron low. RLS symptoms. She is following with GI for autoimmune gastritis. On prednisone. Weight is down. She is planning to follow up with Dr. Callahan. Denies any further heart issues. No bleeding. She is having regular periods. Started taking PO iron on Monday. We reviewed that she is likely not absorbing well due to GI dysfunction and discussed symptoms of RE and when to call. Plan for IV iron PAST MEDICAL HISTORY Diagnosis Date Anemia complicating 12/25/2013 Chlamydia 11/2010 Dysthymic disorder Depression (non-psychotic) Hypothyroidism Iron deficiency depression 12/03/2012 Strain of unspecified muscle and tendon at ankle and foot level, right foot, (more content not included)... [facility] 07-11-2024 History of Present illness Narrative Hematology Progress Note Carola Harding 1990 Encounter date: 07/11/2024 HPI: Carola Harding is a 33 year old female with a PMHx of myalgia. Notes that she has not really been worked up for any conditions that she is aware of. No routine health maintenance. Per chart review: Long standing history of iron deficiency anemia, anemia during . 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 Found to be pancytopenic during admission (result from [facility] scanned in). Counts have since recovered. PCP visit on 07/21/2022. Very fatigued. Sleeping a lot since discharge. Started about 3 weeks ago when she started to feel sick. Does not feel that she has fully recovered from admission. Denies recurrent fevers, chills of NS. No lumps or bumps. No bony aches or pains. Denies rash or skin changes. SOB and AMADOR improving. Abx for 10 days. Cough better. No CP, palpitations. Follow up with cardio scheduled. Denies PERRY, dizziness. No significant changes in bowel or bladder habits. No hx of GI workup. Notes that her daughter has been dx with celiac. No hx of scope. Does not follow any particular dietary restrictions. Edentulous. Denies PICA. Denies dark, tarry stools. No BRBPR. Does not feel that she is able to gain weight, no unintentional weight loss. Drinking ensures regularly. Denies abdominal pains. Has been on PO iron BID for >8 months. No significant improvement in iron studies with PO iron. Denies hematuria, hematochezia, hemoptysis, hematemesis. Menstrual cycles irregular - heavy last about 1-1.5 weeks Saturating 1 pad per 1.5 to 2 hours. Worse and more irregular since tubal ligation about 3 years. She follows with [facility]. Required IV iron with last 2 pregnancies. No follow up for RE. Has 5 children between the ages of 10 and 3. Hx of 5 miscarriages. Pt told that she lost a lot of blood during each delivery. Notes more significant bleeding with last two pregnancies. Required blood transfusion with 4th due to hemorrhage per SO. Believes it was just 1 unit. Mother and sister with hx of heavy bleeding. Denies any known personal or family hx of bleeding or clotting disorders. No hx of cancers. 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 Occasional cigarette once in a while OV 09/05/2023 Ms. Harding presents today with her SO for follow up of RE. She notes that this has been an ongoing issue for her and we reviewed that she has been iron deficient for many years with related exacerbations of RE throughout that time. Since last being seen she has had 5 doses IV iron sucrose 200mg, last dose on 08/11/2023. She reports tolerating IV iron well overall. Lincoln better after 2nd infusion. Denies any issues with bleeding or bruising. Periods irregular, no menses in last 6 weeks. Hcg performed at [facility] neg. No SOB, CP. She was admitted to [facility] on 08/19/23 for worsening abdominal pain, N/V. Denies fevers, chills or NS. No recurrent infections. During admission, cardiac meds for cardiomyopathy were discontinued. HR and BP has since stabilized. She notes that HR was dropping down into 30s and she felt very tired. She is currently being worked up by Dr. Callahan at [facility] for GI malabsorptive conditions. EGD and colonoscopy were both performed during admission, several labs still pending. Final path pending. She has follow up scheduled on 09/11/23. She denies changes in bowel habits. No diarrhea or vomiting. Pain has improved. We reviewed most recent labs and hospital labs which show improvement in HGB. Encouraged her and SO to follow up with GI to further investigate cause of her abd pain, malnutrition. Reviewed that she will likely require repeat IV iron administration. Dicussed hematology role in her care at this time and management of anemia, pt acknowledged. Seems to tolerate and respond well to IV iron administration. Interval hx: Pt presents today for follow up of RE. Recent admission for influenza a. Noted hgb to be around 9. Iron low. RLS symptoms. She is following with GI for autoimmune gastritis. On prednisone. Weight is down. She is planning to follow up with Dr. Callahan. Denies any further heart issues. No bleeding. She is having regular periods. Started taking PO iron on Monday. We reviewed that she is likely not absorbing well due to GI dysfunction and discussed symptoms of RE and when to call. Plan for IV iron PAST MEDICAL HISTORY Diagnosis Date Anemia complicating 12/25/2013 Chlamydia 11/2010 Dysthymic disorder Depression (non-psychotic) Hypothyroidism Iron deficiency depression 12/03/2012 Strain of unspecified muscle and tendon at ankle and foot level, right foot, initial encounter 10/13/2017 PAST SURGICAL HISTORY Procedure Laterality Date COLONOSCOPY SCREENING 08/21/2023 EGD W/O BRSH SPEC VARICIES INJ 08/21/2023 PAST SURGICAL HISTORY OF 05/20/2014 Right open reduction internal fixation clavicle TONSILLECTOMY HX TYMPANOSTOMY LOCAL/TOPICAL ANESTHESIA Current Outpatient Medications Medication Sig Dispense Refill cyanocobalamin (VITAMIN B-12) 1,000 mcg tab Take 1,000 mcg by mouth once daily. azithromycin (ZITHROMAX Z-INGE) 250 mg tablet 2 tablets by mouth first day then 1 tablet the next 4 days 6 tablet 0 predniSONE (DELTASONE) 20 mg tablet Take 20 mg by mouth two times a day. FOLIC ACID ORAL Take by mouth two times a day. albuterol HFA (PROVENTIL HFA, VENTOLIN HFA) 90 mcg/actuation inhaler EVERY 4 HOURS NEEDED as needed for Wheezing/SOB ferrous sulfate (IRON) 325 mg (65 mg iron) tablet Take 1 tablet by mouth every Monday, Monday, and Monday. (Patient taking differently: Take 325 mg by mouth once daily.) 90 tablet 1 ascorbic acid, vitamin C, (VITAMIN C) 500 mg tablet Take 1 tablet by mouth two times a day. 60 tablet 2 ibuprofen (MOTRIN) 600 mg tablet TAKE 1 TABLET BY MOUTH THREE TIMES DAILY NEEDED FOR PAIN OR FEVER fluticasone (FLONASE) 50 mcg/actuation nasal spray Use 2 Sprays in each nostril once daily. Rinse mouth after use. (Patient not taking: Reported on 09/05/2023) 1 Each 0 sertraline (ZOLOFT) 25 mg tablet Take 1 tablet by mouth once daily. (Patient not taking: Reported on 09/05/2023) 30 tablet 0 Food Supplement, Lactose-Free (ENSURE ACTIVE MUSCLE HEALTH) liqd Take 237 mL by mouth four times daily for 7 days. 6636 mL 12 No current facility-administered medications for this visit. ALLERGIES Allergen Reactions Amoxicillin Hives Lactulose Hives Percocet [Oxycodone* Other: See Comments ABDOMINAL PAIN Suprax [Cefixime] Hives FAMILY HISTORY Problem Relation Age of Onset [...] Never Smokeless tobacco: Never Vaping Use Vaping status: Never Used Substance Use Topics Alcohol use: Not Currently Drug use: No Review of Systems: Negative except as noted in HPI reviewed 07/12/2024 Physical Exam: BP 99/75 Pulse 87 Temp (Src) 99 (Temporal) Ht 5' 1.614 (1.57m) Wt 89 lb (40.4kg) SpO2 97% LMP 09/18/2023 BMI 16.48 kg/(m^2). General: Age-appropriate, Appears thin, frail. HEENT: Normocephalic, no sclera icterus, external ears normal, oral cavity clear. edentulous (tooth loss with 2nd ) Neck: Supple, no thyroid nodules, no JVD. Chest: Clear diminished, bilaterally, no wheezes, not labored. Heart: Normal S1 and S2, no abnormal sounds Abdomen: Soft, nontender, nondistended, Neurological: Cranial nerves II through XII are intact bilaterally, so focal deficits. Skin: Warm and dry with no rashes or ulcerations. Nodes: No palpable adenopathy in the cervical, supraclavicular, infraclavicular, or axillary regions. Hematologic: no bruising or petechiae. Psychiatric: Alert and oriented x3. I have performed the physical exam today (07/11/2024 ) and have edited the note to correlate with current findings. Lab Results Component Value Date WBC 3.18 (L) 07/08/2024 HB 9.0 (L) 07/08/2024 MCV 80.8 07/08/2024 PLT 162 07/08/2024 Lab Results Component Value Date NA 143 07/08/2024 K 3.6 (L) 07/08/2024 CO2 28 07/08/2024 BUN 11 07/08/2024 CREAT 0.66 07/08/2024 TBILI <0.2 (L) 07/08/2024 TPROT 6.1 (L) 07/08/2024 ALB 3.8 (L) 07/08/2024 ALKPHOS 58 07/08/2024 ALT 11 07/08/2024 AST 17 07/08/2024 Ferritin Date Value Ref Range Status 07/08/2024 7.1 (L) 14.7 - 205.1 ng/mL Final 10/30/2023 42.0 14.7 - 205.1 ng/mL Final 09/05/2023 124.0 14.7 - 205.1 ng/mL Final 07/21/2023 36.5 14.7 - 205.1 ng/mL Final 05/01/2023 15.5 14.7 - 205.1 ng/mL Final Iron Date Value Ref Range Status 07/08/2024 13 (L) 41 - 186 ug/dL Final 10/30/2023 97 41 - 186 ug/dL Final 09/05/2023 93 41 - 186 ug/dL Final 07/21/2023 32 (L) 41 - 186 ug/dL Final 05/01/2023 17 (L) 41 - 186 ug/dL Final TIBC Date Value Ref Range Status 07/08/2024 367 232 - 386 ug/dL Final 10/30/2023 357 232 - 386 ug/dL Final 09/05/2023 286 232 - 386 ug/dL Final 07/21/2023 382 232 - 386 ug/dL Final 05/01/2023 447 (H) 232 - 386 ug/dL Final Transferrin Saturation Date Value Ref Range Status 07/08/2024 3.5 (L) 15.0 - 57.0 % Final 10/30/2023 27.2 15.0 - 57.0 % Final 09/05/2023 32.5 15.0 - 57.0 % Final 07/21/2023 8.4 (L) 15.0 - 57.0 % Final 05/01/2023 3.8 (L) 15.0 - 57.0 % Final Assessment and Plan: Ms. Harding is a pleasant 33 year old woman presenting for evaluation of anemia. Anemia - some component of RE, malabsorption due to malnutrition, chronic blood loss, autoimmune gastritis - we reviewed s/s of iron deficiency, such as RLS, in detail today as well as when to call. - No improvement with months of PO iron - s/p IV iron sucrose 200mg x 5 last dose on 08/11/2023 - Recent GI workup per 08/21/2023 admission for abd pain - EGD, colonoscopy, labs. Now following with Dr. Callahan. Encouraged to follow up with GI - reviewed hematology role in managing anemia today, pt acknowledged. - scheduled to start IV iron series next week. - repeat labs in about 8 weeks following last dose of IV iron - monitor CBC, iron studies, b12. MMA. - repeat labs about every 3 months. Follow up with PCP for routine health maintenance. Yaneth Davenport APRN.VETERINARY TOXICOLOGIST I spent a total of 30 minutes on the date of the service which included preparing to see the patient, [id number] patient care, completing clinical documentation, obtaining and/or reviewing separately obtained history, and counseling and educating the patient/family/caregiver. Portions of this note including HPI, ROS, impression/plan may have been copied forward as to provide important historical information essential in contributing to medical decision making. Documentation has been reviewed and edited as necessary to support clinical decision making for today's visit and to reflect my own independent evaluation of this patient. documented in this encounter [facility] 07-09-2024 Telephone encounter Note Scheduled iron with patient. Start email sent [facility] Work Phone: 07-09-2024 Miscellaneous Notes Scheduled iron with patient. Start email sent Looks like she no showed last OV but she is established. Needs IV iron. [facility] orders are in. Can you please schedule IV iron sucrose 200 mg x 5 ? Ok to just schedule OV on day that she is here for IV iron infusion. I called and spoke with patient about plan and she is agreeable. Yaneth Davenport APRN.VETERINARY TOXICOLOGIST documented in this encounter [facility] 07-09-2024 Telephone encounter Note Looks like she no showed last OV but she is established. Needs IV iron. [facility] orders are in. Can you please schedule IV iron sucrose 200 mg x 5 ? Ok to just schedule OV on day that she is here for IV iron infusion. I called and spoke with patient about plan and she is agreeable. Yaneth Davenport APRN.VETERINARY TOXICOLOGIST [facility] 07-08-2024 Telephone encounter Note I called and spoke to Carola and scheduled her for 07/11/24 @ 10:00 am, patient confirmed this date, time and location [facility] 07-08-2024 Miscellaneous Notes I called and spoke to Carola and scheduled her for 07/11/24 @ 10:00 am, patient confirmed this date, time and location [facility] Recent ER visit at [facility] on 07/03 with microcytic anemia, hgb 8.9. not taking PO iron d/t instructions by GI doctor. Iron lab work drawn today and in process. Thank you, Marlyn Estrada APRN.VETERINARY TOXICOLOGIST Schedule appt. With Yaneth first available, not a new pt. Althea Matos LPN FYI pt. Was scheduled for 8 week F/U and was a no show for that appt. ( Did have labs done 10/30/23) PATIENT WAS REFERRED TO HEMATOLOGY BY Hossein ESTRADA. PLEASE ADVISE AND CONTACT PATIENT documented in this encounter [facility] 07-08-2024 Telephone encounter Note Recent ER visit at [facility] on 07/03 with microcytic anemia, hgb 8.9. not taking PO iron d/t instructions by GI doctor. Iron lab work drawn today and in process. Thank you, Marlyn Estrada APRN.VETERINARY TOXICOLOGIST [facility] 07-08-2024 Telephone encounter Note Schedule appt. With Yaneth first available, not a new pt. Althea Matos LPN FYI pt. Was scheduled for 8 week F/U and was a no show for that appt. ( Did have labs done 10/30/23) [facility] 07-08-2024 Telephone encounter Note PATIENT WAS REFERRED TO HEMATOLOGY BY Hossein ESTRADA. PLEASE ADVISE AND CONTACT PATIENT [facility] 07-08-2024 Note HNO ID: [id number] Author: MARLYN ESTRADA APRN.VETERINARY TOXICOLOGIST Service: ? Author Type: Nurse Practitioner Type: Progress Notes Filed: 07/08/2024 11:26 Note Text: Chief Complaint Patient presents with: [facility] follow up HPI Carola Harding is a 33 year old female who presents here today for Above Complaints. Carola is an established patient of Dr. Vicente DO. Concerns today... ER follow-up --- [facility] ER visit on 07/03 d/t fever and flu-like/viral symptoms x 1-2 days. COVID, flu, RSV, and strep all negative. CMP, troponin, BNP, and lipase were normal. CBC showed significant microcytic anemia with hgb of 8.9. hx of iron deficiency leading to iron transfusions. CXR and EKG also unremarkable. No concern for or UTI. Patient given tylenol and discharged. Today in office... Pt reports feeling somewhat better since ER visit. Does report chronic persistent cough x 3-4 months that will not go away. Intermittently productive. Denies any more congestion or sinus pressure symptoms. Does not take PO iron supplements anymore because Dr. Callahan took her off of this. His plan was to manage and treat malnutrition dx which should improve iron absorption. Has tried to call Dr. Callahan's office to schedule outpatient appointment following ER but not call back yet. Last iron transfusions in with hematology, [facility]. Pt can tell she is anemic d/t the way the feels. Past medical history, appointments, medications, allergies reviewed. Previous Medical History PAST MEDICAL HISTORY Diagnosis Date Anemia complicating 12/25/2013 Chlamydia 11/2010 Dysthymic disorder Depression (non-psychotic) Hypothyroidism Iron deficiency depression 12/03/2012 Strain of unspecified muscle and tendon at ankle and foot level, right foot, initial encounter 10/13/2017 Previous Surgical History PAST SURGICAL HISTORY Procedure Laterality Date COLONOSCOPY SCREENING 08/21/2023 EGD W/O BRSH SPEC VARICIES INJ 08/21/2023 PAST SURGICAL HISTORY OF 05/20/2014 Right open reduction internal fixation clavicle TONSILLECTOMY [...] on File Prior to Visit Medication Sig predniSONE (DELTASONE) 20 mg tablet Take 20 mg by mouth two times a day. FOLIC ACID ORAL Take by mouth two times a day. albuterol HFA (PROVENTIL HFA, VENTOLIN HFA) 90 mcg/actuation inhaler EVERY 4 HOURS NEEDED as needed for Wheezing/SOB ibuprofen (MOTRIN) 600 mg tablet TAKE 1 TABLET BY MOUTH THREE TIMES DAILY NEEDED FOR PAIN OR FEVER benzonatate (TESSALON PERLE) 100 mg capsule THREE TIMES A DAY as needed for cough (Patient not taking: Reported on 07/03/2024) ferrous sulfate (IRON) 325 mg (65 mg iron) tablet Take 1 tablet by mouth every Monday, Monday, and Monday. (Patient not taking: Reported on 09/05/2023) fluticasone (FLONASE) 50 mcg/actuation nasal spray Use 2 Sprays in each nostril once daily. Rinse mouth after use. (Patient not taking: Reported on 09/05/2023) sertraline (ZOLOFT) 25 mg tablet Take 1 tablet by mouth once daily. (Patient not taking: Reported on 09/05/2023) ascorbic acid, vitamin C, (VITAMIN C) 500 mg tablet Take 1 tablet by mouth two times a day. (Patient not taking: Reported on 09/05/2023) Food Supplement, Lactose-Free (ENSURE ACTIVE MUSCLE HEALTH) liqd Take 237 mL by mouth four times daily for 7 days. No current facility-administered medications on file prior to visit. Social History Social History Tobacco Use Smoking status: Never Smokeless tobacco: Never Vaping Use Vaping status: Never Used Substance Use Topics Alcohol use: Not Currently Drug use: No REVIEW OF SYSTEMS: as above Reviewed relevant PMHx, PSHx, Social Hx, current medications and allergies. Review of Symptoms REVIEW OF SYSTEMS See HPI. EXAM: BP 108/62 (BP Site: Left Arm, BP Position: Sitting, BP Cuff Size: Regular Adult) Pulse 66 Resp 14 Wt 40.8 kg (90 lb) LMP 09/18/2023 (Approximate) SpO2 100% BMI 17.58 kg/m? General Appearance: Well appearing, alert, in no acute distress, well-hydrated, well nourished.. Skin: Skin color, texture, turgor normal, no suspicious rashes or lesions. Head: Normocephalic, no masses, lesions, tenderness or abnormalities. Lungs: Lungs clear to auscultation. No wheezing, rhonchi, rales.. Heart: RRR (more content not included)... [facility] 07-08-2024 History of Present illness Narrative Chief Complaint Patient presents with: [facility] follow up HPI Carola Harding is a 33 year old female who presents here today for Above Complaints. Carola is an established patient of Dr. Zhang, DO. Concerns today... ER follow-up --- [facility] ER visit on 07/03 d/t fever and flu-like/viral symptoms x 1-2 days. COVID, flu, RSV, and strep all negative. CMP, troponin, BNP, and lipase were normal. CBC showed significant microcytic anemia with hgb of 8.9. hx of iron deficiency leading to iron transfusions. CXR and EKG also unremarkable. No concern for or UTI. Patient given tylenol and discharged. Today in office... Pt reports feeling somewhat better since ER visit. Does report chronic persistent cough x 3-4 months that will not go away. Intermittently productive. Denies any more congestion or sinus pressure symptoms. Does not take PO iron supplements anymore because Dr. Callahan took her off of this. His plan was to manage and treat malnutrition dx which should improve iron absorption. Has tried to call Dr. Callahan's office to schedule outpatient appointment following ER but not call back yet. Last iron transfusions in with hematology, [facility]. Pt can tell she is anemic d/t the way the feels. Past medical history, appointments, medications, allergies reviewed. Previous Medical History PAST MEDICAL HISTORY Diagnosis Date Anemia complicating 12/25/2013 Chlamydia 11/2010 Dysthymic disorder Depression (non-psychotic) Hypothyroidism Iron deficiency depression 12/03/2012 Strain of unspecified muscle and tendon at ankle and foot level, right foot, initial encounter 10/13/2017 Previous Surgical History PAST SURGICAL HISTORY Procedure Laterality Date COLONOSCOPY SCREENING 08/21/2023 EGD W/O [facility] SPEC VARICIES INJ 08/21/2023 PAST SURGICAL HISTORY OF 05/20/2014 Right open reduction internal fixation clavicle TONSILLECTOMY [...] on File Prior to Visit Medication Sig predniSONE (DELTASONE) 20 mg tablet Take 20 mg by mouth two times a day. FOLIC ACID ORAL Take by mouth two times a day. albuterol HFA (PROVENTIL HFA, VENTOLIN HFA) 90 mcg/actuation inhaler EVERY 4 HOURS NEEDED as needed for Wheezing/SOB ibuprofen (MOTRIN) 600 mg tablet TAKE 1 TABLET BY MOUTH THREE TIMES DAILY NEEDED FOR PAIN OR FEVER benzonatate (TESSALON PERLE) 100 mg capsule THREE TIMES A DAY as needed for cough (Patient not taking: Reported on 07/03/2024) ferrous sulfate (IRON) 325 mg (65 mg iron) tablet Take 1 tablet by mouth every Monday, Monday, and Monday. (Patient not taking: Reported on 09/05/2023) fluticasone (FLONASE) 50 mcg/actuation nasal spray Use 2 Sprays in each nostril once daily. Rinse mouth after use. (Patient not taking: Reported on 09/05/2023) sertraline (ZOLOFT) 25 mg tablet Take 1 tablet by mouth once daily. (Patient not taking: Reported on 09/05/2023) ascorbic acid, vitamin C, (VITAMIN C) 500 mg tablet Take 1 tablet by mouth two times a day. (Patient not taking: Reported on 09/05/2023) Food Supplement, Lactose-Free (ENSURE ACTIVE MUSCLE HEALTH) liqd Take 237 mL by mouth four times daily for 7 days. No current facility-administered medications on file prior to visit. Social History Social History Tobacco Use Smoking status: Never Smokeless tobacco: Never Vaping Use Vaping status: Never Used Substance Use Topics Alcohol use: Not Currently Drug use: No REVIEW OF SYSTEMS: as above Reviewed relevant PMHx, PSHx, Social Hx, current medications and allergies. Review of Symptoms REVIEW OF SYSTEMS See HPI. EXAM: BP 108/62 (BP Site: Left Arm, BP Position: Sitting, BP Cuff Size: Regular Adult) Pulse 66 Resp 14 Wt 40.8 kg (90 lb) LMP 09/18/2023 (Approximate) SpO2 100% BMI 17.58 kg/m General Appearance: Well appearing, alert, in no acute distress, well-hydrated, well nourished.. Skin: Skin color, texture, turgor normal, no suspicious rashes or lesions. Head: Normocephalic, no masses, lesions, tenderness or abnormalities. Lungs: Lungs clear to auscultation. No wheezing, rhonchi, rales.. Heart: RRR without murmur, gallop, or rubs. No ectopy. Abdomen: Normal abdominal exam, Abdomen soft, non-tender. Bowel sounds normal. No masses, organomegaly. Health Maintenance List Cervical Cancer Screening due on 08/06/2023 Influenza Vaccine(1) due on 12/09/2024 Covid-19 Vaccine( season) due on 07/08/2025 Depression Screening due on 10/29/2024 Anxiety Screening due on 10/29/2024 DTaP,Tdap,Td Vaccine(11 - Td or Tdap) due on 11/27/2029 Hepatitis B Vaccine Completed HPV Vaccine Completed Hepatitis C Screening Completed HIV Screening Completed ASSESSMENT/PLAN: 1. Chronic cough - ICD9: 786.2, ICD10: R05.3 (primary diagnosis) CT chest to further investigate d/t length of duration. Try antibiotic of zpack. - CT CHEST WO IVCON - AZITHROMYCIN 250 MG TABLET 2. Iron deficiency anemia, unspecified iron deficiency anemia type - ICD9: 280.9, ICD10: D50.9 Likely needs repeat iron transfusion. Return to hematology, [facility]. Encouraged her to restart PO iron supplements for the time being until she can get transfusion. - CONSULT TO HEMATOLOGY - FERRITIN - IRON AND TIBC - COMPLETE BLOOD COUNT AND DIFFERENTIAL - COMPREHENSIVE METABOLIC PANEL 3. Underweight - ICD9: 783.22, ICD10: R63.[address] London LEOS. - FERRITIN - IRON AND TIBC - COMPLETE BLOOD COUNT AND DIFFERENTIAL - COMPREHENSIVE METABOLIC PANEL 4. Mild protein-calorie malnutrition (HCC) - ICD9: 263.1, ICD10: E44.[address] London LEOS. - FERRITIN - IRON AND TIBC - COMPLETE BLOOD COUNT AND DIFFERENTIAL - COMPREHENSIVE METABOLIC PANEL RTO in 3 months, sooner if needed. Prescription instructions reviewed with patient as applicable. Potential red flag symptoms discussed with the patient. Reviewed appropriate action plan to take if red flag symptoms occur. Patient agreeable to treatment plan. Marlyn Bynum APRN.VETERINARY TOXICOLOGIST [id number] [place] [address] documented in this encounter [facility] 07-03-2024 Note HNO ID: [id number] Author: JOSEMANUEL ROMERO PA-C Service: ? Author Type: Physician Certified Art Therapist Type: Progress Notes Filed: 07/03/2024 14:04 Note Text: This note was created using [employer]. Celine Harding is a 33 year old female. Patient is a 33-year-old female who complains of sore throat and a headache that she has been experiencing for the past 1 day. Patient also describes body aches. Patient states that [facility] she also developed generalized abdominal pain and nausea. Patient has not experienced episodes of vomiting to this point. Patient denies diarrhea and states that she is not . Patient has no history of GERD, hiatal hernia, gallbladder disease, irritable bowel syndrome or other GI conditions. Cough Associated symptoms include sore throat. Review of Systems HENT: Positive for sore throat. Respiratory: Positive for cough. Gastrointestinal: Positive for abdominal pain and nausea. All other systems reviewed and are negative. Objective BP 90/60 Pulse 84 Temp 36.8 ?C (98.3 ?F) Resp 16 Wt 41.9 kg (92 lb 6 oz) LMP 09/18/2023 (Approximate) SpO2 97% BMI 18.04 kg/m? Physical Exam Vitals and nursing note reviewed. Constitutional: Appearance: Normal appearance. She is normal weight. HENT: Head: Normocephalic and atraumatic. Right Ear: Tympanic membrane, ear canal and external ear normal. Left Ear: Tympanic membrane, ear canal and external ear normal. Nose: Nose normal. Mouth/Throat: Mouth: Mucous membranes are moist. Pharynx: Oropharynx is clear. Eyes: Extraocular Movements: Extraocular movements intact. Conjunctiva/sclera: Conjunctivae normal. Pupils: Pupils are equal, round, and reactive to light. Cardiovascular: Rate and Rhythm: Normal rate and regular rhythm. Pulses: Normal pulses. Heart sounds: Normal heart sounds. Pulmonary: Effort: Pulmonary effort is normal. Breath sounds: Normal breath sounds. Abdominal: General: Abdomen is flat. Palpations: Abdomen is soft. Musculoskeletal: Cervical back: Normal range of motion and neck supple. Skin: General: Skin is warm and dry. Capillary Refill: Capillary refill takes less than 2 seconds. Neurological: General: No focal deficit present. Mental Status: She is alert and oriented to person, place, and time. Psychiatric: Mood and Affect: Mood normal. Behavior: Behavior normal. Thought Content: Thought content normal. Judgment: Judgment normal. Assessment and Plan Physical exam findings as noted above. Rapid strep PCR is negative. Patient was provided with a prescription for Zofran 4 mg ODT, however she was very clearly instructed to report to an emergency department if she notes any acute worsening of her symptoms as additional laboratory testing as well as CT scan imaging cannot be performed at this express care facility. Supportive care instructions were discussed and the patient verbalizes good understanding of same. CLINICAL IMPRESSION: Abdominal Pain; Acute Gastritis ASSESSMENT/PLAN: 1. Sore throat - ICD9: 462, ICD10: J02.9 (primary diagnosis) - STREP A MOLECULAR (POC) 2. Generalized abdominal pain - ICD9: 789.07, ICD10: R10.84 3. Acute gastroenteritis - ICD9: 558.9, ICD10: K52.9 - ONDANSETRON 4 MG DISINTEGRATING TABLET Josemanuel Romero PA-C [facility] 07-03-2024 History of Present illness Narrative This note was created using [employer]. Celine Harding is a 33 year old female. Patient is a 33-year-old female who complains of sore throat and a headache that she has been experiencing for the past 1 day. Patient also describes body aches. Patient states that [facility] to [facility] she also developed generalized abdominal pain and nausea. Patient has not experienced episodes of vomiting to this point. Patient denies diarrhea and states that she is not . Patient has no history of GERD, hiatal hernia, gallbladder disease, irritable bowel syndrome or other GI conditions. Cough Associated symptoms include sore throat. Review of Systems HENT: Positive for sore throat. Respiratory: Positive for cough. Gastrointestinal: Positive for abdominal pain and nausea. All other systems reviewed and are negative. Objective BP 90/60 Pulse 84 Temp 36.8 C (98.3 F) Resp 16 Wt 41.9 kg (92 lb 6 oz) LMP 09/18/2023 (Approximate) SpO2 97% BMI 18.04 kg/m Physical Exam Vitals and nursing note reviewed. Constitutional: Appearance: Normal appearance. She is normal weight. HENT: Head: Normocephalic and atraumatic. Right Ear: Tympanic membrane, ear canal and external ear normal. Left Ear: Tympanic membrane, ear canal and external ear normal. Nose: Nose normal. Mouth/Throat: Mouth: Mucous membranes are moist. Pharynx: Oropharynx is clear. Eyes: Extraocular Movements: Extraocular movements intact. Conjunctiva/sclera: Conjunctivae normal. Pupils: Pupils are equal, round, and reactive to light. Cardiovascular: Rate and Rhythm: Normal rate and regular rhythm. Pulses: Normal pulses. Heart sounds: Normal heart sounds. Pulmonary: Effort: Pulmonary effort is normal. Breath sounds: Normal breath sounds. Abdominal: General: Abdomen is flat. Palpations: Abdomen is soft. Musculoskeletal: Cervical back: Normal range of motion and neck supple. Skin: General: Skin is warm and dry. Capillary Refill: Capillary refill takes less than 2 seconds. Neurological: General: No focal deficit present. Mental Status: She is alert and oriented to person, place, and time. Psychiatric: Mood and Affect: Mood normal. Behavior: Behavior normal. Thought Content: Thought content normal. Judgment: Judgment normal. Assessment and Plan Physical exam findings as noted above. Rapid strep PCR is negative. Patient was provided with a prescription for Zofran 4 mg ODT, however she was very clearly instructed to report to an emergency department if she notes any acute worsening of her symptoms as additional laboratory testing as well as CT scan imaging cannot be performed at this [facility]. Supportive care instructions were discussed and the patient verbalizes good understanding of same. CLINICAL IMPRESSION: Abdominal Pain; Acute Gastritis ASSESSMENT/PLAN: 1. Sore throat - ICD9: 462, ICD10: J02.9 (primary diagnosis) - STREP A MOLECULAR (POC) 2. Generalized abdominal pain - ICD9: 789.07, ICD10: R10.84 3. Acute gastroenteritis - ICD9: 558.9, ICD10: K52.9 - ONDANSETRON 4 MG DISINTEGRATING TABLET Josemanuel Romero PA-C documented in this encounter [facility] 04-03-2024 Note HNO ID: [id number] Author: PINA WILSON PA-C Service: ? Author Type: Physician Certified Art Therapist Type: Progress Notes Filed: 04/03/2024 13:37 Note Text: Chief Complaint Patient presents with: ER F/U HPI Carola Harding is a 33 year old female who presents here today for ER Follow Up.. Patient woke up on 04/01/2024 with Sore throat. Throughout the day she developed cough, congestion, body chills. By evening she was feeling worse so she went to ER. CXR negative. ER did viral panel. Was able to get results which was neg for flu,covid and rsv. Some have had mild URI symptoms Past medical history, appointments, medications, allergies reviewed. Previous Medical History PAST MEDICAL HISTORY Diagnosis Date Anemia complicating 12/25/2013 Chlamydia 11/2010 Dysthymic disorder Depression (non-psychotic) Hypothyroidism Iron deficiency depression 12/03/2012 Strain of unspecified muscle and tendon at ankle and foot level, right foot, initial encounter 10/13/2017 Previous Surgical History PAST SURGICAL HISTORY Procedure Laterality Date COLONOSCOPY SCREENING 08/21/2023 EGD W/O BRSH SPEC VARICIES INJ 08/21/2023 PAST SURGICAL HISTORY OF 05/20/2014 Right open reduction internal fixation clavicle TONSILLECTOMY [...] on File Prior to Visit Medication Sig predniSONE (DELTASONE) 20 mg tablet Take 20 mg by mouth two times a day. FOLIC ACID ORAL Take by mouth two times a day. albuterol HFA (PROVENTIL HFA, VENTOLIN HFA) 90 mcg/actuation inhaler EVERY 4 HOURS NEEDED as needed for Wheezing/SOB benzonatate (TESSALON PERLE) 100 mg capsule THREE TIMES A DAY as needed for cough ibuprofen (MOTRIN) 600 mg tablet TAKE 1 TABLET BY MOUTH THREE TIMES DAILY NEEDED FOR PAIN OR FEVER ferrous sulfate (IRON) 325 mg (65 mg iron) tablet Take 1 tablet by mouth every Monday, Monday, and Monday. (Patient not taking: Reported on 09/05/2023) fluticasone (FLONASE) 50 mcg/actuation nasal spray Use 2 Sprays in each nostril once daily. Rinse mouth after use. (Patient not taking: Reported on 09/05/2023) sertraline (ZOLOFT) 25 mg tablet Take 1 tablet by mouth once daily. (Patient not taking: Reported on 09/05/2023) ascorbic acid, vitamin C, (VITAMIN C) 500 mg tablet Take 1 tablet by mouth two times a day. (Patient not taking: Reported on 09/05/2023) Food Supplement, Lactose-Free (ENSURE ACTIVE MUSCLE HEALTH) liqd Take 237 mL by mouth four times daily for 7 days. No current facility-administered medications on file prior to visit. Social History Social History Tobacco Use Smoking status: Never Smokeless tobacco: Never Vaping Use Vaping status: Never Used Substance Use Topics Alcohol use: Not Currently Drug use: No Review of Symptoms REVIEW OF SYSTEMS See hpi EXAM: BP 110/70 (BP Site: Left Arm, BP Position: Sitting, BP Cuff Size: Regular Adult) Pulse (!) 58 Temp 36.6 ?C (97.8 ?F) Resp 16 Wt 44 kg (97 lb) LMP 09/18/2023 (Approximate) SpO2 99% BMI 18.94 kg/m? General Appearance: Well appearing, alert, in no acute distress, well-hydrated, well nourished.. Ears: External ears normal, canals clear. Nose/Sinuses: Nares normal, septum midline, mucosa normal, no drainage or sinus tenderness. Oropharynx: Lips, mucosa, and tongue normal, teeth and gums normal, oropharynx normal. Neck: Supple, no adenopathy; thyroid symmetric, normal size, no bruits. Lungs: Lungs clear to auscultation. No wheezing, rhonchi, rales.. Heart: RRR without murmur, gallop, or rubs. No ectopy. Health Maintenance List Cervical Cancer Screening due on 08/06/2023 Influenza Vaccine(1) due on 02/11/2024 Covid-19 Vaccine( season) Never done Depression Screening due on 10/29/2024 Anxiety Screening due on 10/29/2024 DTaP,Tdap,Td Vaccine(11 - Td or Tdap) due on 11/27/2029 Hepatitis B Vaccine Completed HPV Vaccine Completed Hepatitis C Screening Completed HIV Screening Completed Data reviewed ASSESSMENT/PLAN: 1. URI, acute - ICD9: 465.9, ICD10: J06.9 - Discussed viral etiology and rationale for treatment. - Symptomatic treatment with prn analgesia - Supportive care with fluids and rest - Follow up in one week if symptoms persist or sooner if worsening of symptoms Pina Wilson (more content not included)... [facility] 04-03-2024 History of Present illness Narrative Chief Complaint Patient presents with: ER F/U HPI Carola Harding is a 33 year old female who presents here today for ER Follow Up.. Patient woke up on 04/01/2024 with Sore throat. Throughout the day she developed cough, congestion, body chills. By evening she was feeling worse so she went to ER. CXR negative. ER did viral panel. Was able to get results which was neg for flu,covid and rsv. Some have had mild URI symptoms Past medical history, appointments, medications, allergies reviewed. Previous Medical History PAST MEDICAL HISTORY Diagnosis Date Anemia complicating 12/25/2013 Chlamydia 11/2010 Dysthymic disorder Depression (non-psychotic) Hypothyroidism Iron deficiency depression 12/03/2012 Strain of unspecified muscle and tendon at ankle and foot level, right foot, initial encounter 10/13/2017 Previous Surgical History PAST SURGICAL HISTORY Procedure Laterality Date COLONOSCOPY SCREENING 08/21/2023 EGD W/O [facility] SPEC VARICIES INJ 08/21/2023 PAST SURGICAL HISTORY OF 05/20/2014 Right open reduction internal fixation clavicle TONSILLECTOMY [...] on File Prior to Visit Medication Sig predniSONE (DELTASONE) 20 mg tablet Take 20 mg by mouth two times a day. FOLIC ACID ORAL Take by mouth two times a day. albuterol HFA (PROVENTIL HFA, VENTOLIN HFA) 90 mcg/actuation inhaler EVERY 4 HOURS NEEDED as needed for Wheezing/SOB benzonatate (TESSALON PERLE) 100 mg capsule THREE TIMES A DAY as needed for cough ibuprofen (MOTRIN) 600 mg tablet TAKE 1 TABLET BY MOUTH THREE TIMES DAILY NEEDED FOR PAIN OR FEVER ferrous sulfate (IRON) 325 mg (65 mg iron) tablet Take 1 tablet by mouth every Monday, Monday, and Monday. (Patient not taking: Reported on 09/05/2023) fluticasone (FLONASE) 50 mcg/actuation nasal spray Use 2 Sprays in each nostril once daily. Rinse mouth after use. (Patient not taking: Reported on 09/05/2023) sertraline (ZOLOFT) 25 mg tablet Take 1 tablet by mouth once daily. (Patient not taking: Reported on 09/05/2023) ascorbic acid, vitamin C, (VITAMIN C) 500 mg tablet Take 1 tablet by mouth two times a day. (Patient not taking: Reported on 09/05/2023) Food Supplement, Lactose-Free (ENSURE ACTIVE MUSCLE HEALTH) liqd Take 237 mL by mouth four times daily for 7 days. No current facility-administered medications on file prior to visit. Social History Social History Tobacco Use Smoking status: Never Smokeless tobacco: Never Vaping Use Vaping status: Never Used Substance Use Topics Alcohol use: Not Currently Drug use: No Review of Symptoms REVIEW OF SYSTEMS See hpi EXAM: BP 110/70 (BP Site: Left Arm, BP Position: Sitting, BP Cuff Size: Regular Adult) Pulse (!) 58 Temp 36.6 C (97.8 F) Resp 16 Wt 44 kg (97 lb) LMP 09/18/2023 (Approximate) SpO2 99% BMI 18.94 kg/m General Appearance: Well appearing, alert, in no acute distress, well-hydrated, well nourished.. Ears: External ears normal, canals clear. Nose/Sinuses: Nares normal, septum midline, mucosa normal, no drainage or sinus tenderness. Oropharynx: Lips, mucosa, and tongue normal, teeth and gums normal, oropharynx normal. Neck: Supple, no adenopathy; thyroid symmetric, normal size, no bruits. Lungs: Lungs clear to auscultation. No wheezing, rhonchi, rales.. Heart: RRR without murmur, gallop, or rubs. No ectopy. Health Maintenance List Cervical Cancer Screening due on 08/06/2023 Influenza Vaccine(1) due on 02/11/2024 Covid-19 Vaccine( season) Never done Depression Screening due on 10/29/2024 Anxiety Screening due on 10/29/2024 DTaP,Tdap,Td Vaccine(11 - Td or Tdap) due on 11/27/2029 Hepatitis B Vaccine Completed HPV Vaccine Completed Hepatitis C Screening Completed HIV Screening Completed Data reviewed ASSESSMENT/PLAN: 1. URI, acute - ICD9: 465.9, ICD10: J06.9 - Discussed viral etiology and rationale for treatment. - Symptomatic treatment with prn analgesia - Supportive care with fluids and rest - Follow up in one week if symptoms persist or sooner if worsening of symptoms Pina Wilson PA-C documented in this encounter [facility] 10-31-2023 Telephone encounter Note Pt. informed via my Chart. [facility] 10-31-2023 Miscellaneous Notes Pt. informed via my Chart. Please inform patient that her labs are stable. Thyroid labs are still borderline but they are normal. Normal renal and liver function labs Jamari Zhang DO documented in this encounter [facility] 10-31-2023 Telephone encounter Note Please inform patient that her labs are stable. Thyroid labs are still borderline but they are normal. Normal renal and liver function labs Jamari Zhang DO [facility] 10-30-2023 History of Present illness Narrative CC: Carola Harding is a 33 year old female who presents to the office for follow up HPI: In Jul 2023, she had symptoms of cold, was treating symptoms as a common cold. Was taken to the EMERGENCY DEPARTMENT, diagnosed with Influenza B infection. Was told that she needs to be admitted due to Hypotension. She then developed Myocarditis symptoms- this was diagnosed by ECHOCARDIOGRAM with EF 35%. Getting a recheck ECHO end of October and then a follow up with Dr. Vogel Director Of Group Sales at [facility] to determine if the myocarditis and EF is improving. She still has mostly just the fatigue and appetite concerns. No recent chest pain or pressure Seeing Dr. Callahan Paraprofessional Aide- was found to have Crohns disease (by CT abd/pelvis and colonoscopy) which she will have a follow up with specialist. Also diagnosed with gastritis which is what is causing iron deficiency. She is taking Ensure drinks and taking a medication (unknown medication name) to help with weight gain. Hasn't been started on medication yet= waiting on these recommendations. Iron deficiency, just finished her IV iron infusions, with Hem Onc with Dr. Colin office. Will have labs rechecked today Hypothyroidism, hasn't had recent labs rechecked. Does have fatigue symptoms but has been dealing with all these health issues as above PAST MEDICAL HISTORY Diagnosis Date Anemia complicating 12/25/2013 Chlamydia 11/2010 Dysthymic disorder Depression (non-psychotic) Hypothyroidism Iron deficiency depression 12/03/2012 Strain of unspecified muscle and tendon at ankle and foot level, right foot, initial encounter 10/13/2017 PAST SURGICAL HISTORY Procedure Laterality Date COLONOSCOPY SCREENING 08/21/2023 [facility] IN[facility] 08/21/2023 PAST SURGICAL HISTORY OF 05/20/2014 Right open reduction internal fixation clavicle TONSILLECTOMY HX TYMPANOSTOMY LOCAL/TOPICAL ANESTHESIA Current Outpatient Medications Medication Sig ferrous sulfate (IRON) 325 mg (65 mg iron) tablet Take 1 tablet by mouth every Monday, Monday, and Monday. (Patient not taking: Reported on 09/05/2023) fluticasone (FLONASE) 50 mcg/actuation nasal spray Use 2 Sprays in each nostril once daily. Rinse mouth after use. (Patient not taking: Reported on 09/05/2023) sertraline (ZOLOFT) 25 mg tablet Take 1 tablet by mouth once daily. (Patient not taking: Reported on 09/05/2023) ascorbic acid, vitamin C, (VITAMIN C) 500 mg tablet Take 1 tablet by mouth two times a day. (Patient not taking: Reported on 09/05/2023) ibuprofen (MOTRIN) 600 mg tablet TAKE 1 TABLET BY MOUTH THREE TIMES DAILY NEEDED FOR PAIN OR FEVER Food Supplement, Lactose-Free (ENSURE ACTIVE MUSCLE HEALTH) liqd Take 237 mL by mouth four times daily for 7 days. No current facility-administered medications for this visit. ALLERGIES Allergen Reactions Amoxicillin Hives Lactulose Hives Percocet [Oxycodone* Other: See Comments ABDOMINAL PAIN Suprax [Cefixime] Hives Social History Tobacco Use Smoking status: Never Smokeless tobacco: Never Vaping Use Vaping Use: Never used Substance Use Topics Alcohol use: Not Currently Drug use: No ROS: See HPI PE: BP 100/60 Pulse 64 Temp (Src) 97 (Right Tympanic) Resp 16 Wt 87 lb (39.5kg) LMP 09/18/2023 Gen: A&OX3, NAD, non-toxic appearing HEENT: PERRLA, EOMs intact b/l, nares without drainage, pharynx without erythema, exudate, lesions, or drainage. Uvula midline. Neck: No LAD, no thyromegaly, no meningismus. CV: RRR, no murmur Lungs: CTA b/l, no wheezing Skin: No rashes, lesions, or wounds on exposed skin. Thin Fatigued appearing ASSESSMENT/PLAN: 1. 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 - ICD9: 487.0, 422.0, ICD10: J11.82 (primary diagnosis) F/u with Director Of Group Sales as scheduled. 2. Underweight - ICD9: 783.22, ICD10: R63.6 Recheck labs as ordered. - THYROID STIMULATING HORMONE - T4 FREE/FREE THYROXINE - T3, FREE 3. Iron deficiency anemia, unspecified iron deficiency anemia type - ICD9: 280.9, ICD10: D50.9 Recheck labs as ordered F/u with Post Tensioning Ironworker Helper Symptoms of fatigue still - COMPREHENSIVE METABOLIC PANEL 4. Elevated TSH - ICD9: 794.5, ICD10: R79.89 Recheck labs, has fatigue that is present - THYROID STIMULATING HORMONE - T4 FREE/FREE THYROXINE - T3, FREE 5. Fatigue, unspecified type - ICD9: 780.79, ICD10: R53.83 See above, recheck labs, f/u with Director Of Group Sales and Paraprofessional Aide Jamari Zhang DO Return if no improvement. Follow up with Jamari Zhang DO. To ER if develops chest pain, shortness of breath, . Discussed risks, benefits, alternatives, and potential side effects of medications. Patient/Guardian expressed understanding and agreed with the plan. See patient instructions. Jamari Zhang DO [address] [place] [address] documented in this encounter [facility] 09-11-2023 Telephone encounter Note Patient presented at [facility] with a handwritten report from the rivers and lakes boatman (Dr. Callahan), including a treatment plan. Document scanned in. Paraprofessional Aide ordered an MRI as well. Criselda Tariq [facility] 09-11-2023 Miscellaneous Notes Patient presented at [facility] with a handwritten report from the [place] lakes boatman (Dr. Callahan), including a treatment plan. Document scanned in. Paraprofessional Aide ordered an MRI as well. Criselda Tariq documented in this encounter [facility] 09-05-2023 History of Present illness Narrative Hematology Progress Note Carola Harding 1990 Encounter date: 09/05/2023 HPI: Carola Harding is a 33 year old female with a PMHx of myalgia. Notes that she has not really been worked up for any conditions that she is aware of. No routine health maintenance. Per chart review: Long standing history of iron deficiency anemia, anemia during . 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 Found to be pancytopenic during admission (result from [facility] scanned in). Counts have since recovered. PCP visit on 07/21/2022. Very fatigued. Sleeping a lot since discharge. Started about 3 weeks ago when she started to feel sick. Does not feel that she has fully recovered from admission. Denies recurrent fevers, chills of NS. No lumps or bumps. No bony aches or pains. Denies rash or skin changes. SOB and AMADOR improving. Abx for 10 days. Cough better. No CP, palpitations. Follow up with cardio scheduled. Denies PERRY, dizziness. No significant changes in bowel or bladder habits. No hx of GI workup. Notes that her daughter has been dx with celiac. No hx of scope. Does not follow any particular dietary restrictions. Edentulous. Denies PICA. Denies dark, tarry stools. No BRBPR. Does not feel that she is able to gain weight, no unintentional weight loss. Drinking ensures regularly. Denies abdominal pains. Has been on PO iron BID for >8 months. No significant improvement in iron studies with PO iron. Denies hematuria, hematochezia, hemoptysis, hematemesis. Menstrual cycles irregular - heavy last about 1-1.5 weeks Saturating 1 pad per 1.5 to 2 hours. Worse and more irregular since tubal ligation about 3 years. She follows with LOGISTIC SPECIALIST. Required IV iron with last 2 pregnancies. No follow up for RE. Has 5 children between the ages of 10 and 3. Hx of 5 miscarriages. Pt told that she lost a lot of blood during each delivery. Notes more significant bleeding with last two pregnancies. Required blood transfusion with 4th due to hemorrhage per SO. Believes it was just 1 unit. Mother and sister with hx of heavy bleeding. Denies any known personal or family hx of bleeding or clotting disorders. No hx of cancers. 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 Occasional cigarette once in a while Interval History: Ms. Harding presents today with her SO for follow up of RE. She notes that this has been an ongoing issue for her and we reviewed that she has been iron deficient for many years with related exacerbations of RE throughout that time. Since last being seen she has had 5 doses IV iron sucrose 200mg, last dose on 08/11/2023. She reports tolerating IV iron well overall. [place] better after 2nd infusion. Denies any issues with bleeding or bruising. Periods irregular, no menses in last 6 weeks. Hcg performed at [facility] neg. No SOB, CP. She was admitted to [facility] on 08/19/23 for worsening abdominal pain, N/V. Denies fevers, chills or NS. No recurrent infections. During admission, cardiac meds for cardiomyopathy were discontinued. HR and BP has since stabilized. She notes that HR was dropping down into 30s and she felt very tired. She is currently being worked up by Dr. Callahan at [facility] for GI malabsorptive conditions. EGD and colonoscopy were both performed during admission, several labs still pending. Final path pending. She has follow up scheduled on 09/11/23. She denies changes in bowel habits. No diarrhea or vomiting. Pain has improved. We reviewed most recent labs and hospital labs which show improvement in HGB. Encouraged her and SO to follow up with GI to further investigate cause of her abd pain, malnutrition. Reviewed that she will likely require repeat IV iron administration. Dicussed hematology role in her care at this time and management of anemia, pt acknowledged. Seems to tolerate and respond well to IV iron administration. PAST MEDICAL HISTORY Diagnosis Date Anemia complicating 12/25/2013 Chlamydia 11/2010 Dysthymic disorder Depression (non-psychotic) Hypothyroidism Iron deficiency depression 12/03/2012 Strain of unspecified muscle and tendon at ankle and foot level, right foot, initial encounter 10/13/2017 PAST SURGICAL HISTORY Procedure Laterality Date PAST SURGICAL HISTORY OF 05/20/14 Right open reduction internal fixation clavicle TONSILLECTOMY HX TYMPANOSTOMY LOCAL/TOPICAL ANESTHESIA Current Outpatient Medications Medication Sig Dispense Refill ibuprofen (MOTRIN) 600 mg tablet TAKE 1 TABLET BY MOUTH THREE TIMES DAILY NEEDED FOR PAIN OR FEVER Food Supplement, Lactose-Free (ENSURE ACTIVE MUSCLE HEALTH) liqd Take 237 mL by mouth four times daily for 7 days. 6636 mL 12 ferrous sulfate (IRON) 325 mg (65 mg iron) tablet Take 1 tablet by mouth every Monday, Monday, and Monday. (Patient not taking: Reported on 09/05/2023) 90 tablet 1 fluticasone (FLONASE) 50 mcg/actuation nasal spray Use 2 Sprays in each nostril once daily. Rinse mouth after use. (Patient not taking: Reported on 09/05/2023) 1 Each 0 sertraline (ZOLOFT) 25 mg tablet Take 1 tablet by mouth once daily. (Patient not taking: Reported on 09/05/2023) 30 tablet 0 ascorbic acid, vitamin C, (VITAMIN C) 500 mg tablet Take 1 tablet by mouth two times a day. (Patient not taking: Reported on 09/05/2023) 60 tablet 2 No current facility-administered medications for this visit. ALLERGIES Allergen Reactions Amoxicillin Hives Lactulose Hives Percocet [Oxycodone* Other: See Comments ABDOMINAL PAIN Suprax [Cefixime] Hives FAMILY HISTORY Problem Relation Age of Onset [...] Not Currently Drug use: No Review of Systems: Negative except as noted in HPI reviewed 09/05/2023 Physical Exam: BP 96/68 Pulse 63 Temp 98.9 Wt 86 lb 8 oz (39.2kg) SpO2 98% LMP 05/06/2023 General: Age-appropriate, Appears thin, frail. HEENT: Normocephalic, no sclera icterus, external ears normal, oral cavity clear. edentulous (tooth loss with 2nd ) Neck: Supple, no thyroid nodules, no JVD. Chest: Clear diminished, bilaterally, no wheezes, not labored. Heart: Normal S1 and S2, no abnormal sounds Abdomen: Soft, nontender, nondistended, bowel sounds present, no organomegaly or mass, no rigidity. Extremities: No cyanosis, clubbing, gross deformities, or palpable cords. Neurological: Cranial nerves II through XII are intact bilaterally, strength normal in the upper and lower extremities, no focal deficits. Skin: Warm and dry with no rashes or ulcerations. Nodes: No palpable adenopathy in the cervical, supraclavicular, infraclavicular, or axillary regions. Hematologic: no bruising or petechiae. Psychiatric: Alert and oriented x3. Emotional well-being assessment was performed. Pt denies depression, distress, and or problems with coping or adjustment. I have performed the physical exam today (09/05/2023 ) and have edited the note to correlate with current findings. Lab Results Component Value Date WBC 3.56 (L) 09/05/2023 HB 11.3 (L) 09/05/2023 MCV 87.1 09/05/2023 PLT 175 09/05/2023 Lab Results Component Value Date NA 141 07/26/2023 K 4.0 07/26/2023 CO2 28 07/26/2023 BUN 12 07/26/2023 CREAT 0.60 07/26/2023 TBILI 0.2 07/26/2023 TPROT 8.0 07/26/2023 ALB 4.0 07/26/2023 ALKPHOS 88 07/26/2023 ALT 11 07/26/2023 AST 17 07/26/2023 Ferritin Date Value Ref Range Status 07/21/2023 36.5 14.7 - 205.1 ng/mL Final 05/01/2023 15.5 14.7 - 205.1 ng/mL Final 04/11/2023 6.0 (L) 14.7 - 205.1 ng/mL Final 01/18/2021 70.0 14.7 - 205.1 ng/mL Final 10/03/2019 6.1 (L) 14.7 - 205.1 ng/mL Final Iron Date Value Ref Range Status 07/21/2023 32 (L) 41 - 186 ug/dL Final 05/01/2023 17 (L) 41 - 186 ug/dL Final 04/11/2023 21 (L) 41 - 186 ug/dL Final 01/18/2021 80 41 - 186 ug/dL Final 10/03/2019 28 (L) 41 - 186 ug/dL Final TIBC Date Value Ref Range Status 07/21/2023 382 232 - 386 ug/dL Final 05/01/2023 447 (H) 232 - 386 ug/dL Final 04/11/2023 460 (H) 232 - 386 ug/dL Final 01/18/2021 278 232 - 386 ug/dL Final 10/03/2019 >528 (H) 232 - 386 ug/dL Final Transferrin Saturation Date Value Ref Range Status 07/21/2023 8.4 (L) 15.0 - 57.0 % Final 05/01/2023 3.8 (L) 15.0 - 57.0 % Final 04/11/2023 4.6 (L) 15.0 - 57.0 % Final 01/18/2021 29 15 - 57 % Final 10/03/2019 <5 (L) 15 - 57 % Final Iron studies pending today Assessment and Plan: Ms. Harding is a pleasant 33 year old woman presenting for evaluation of anemia. Anemia - although recent decrease in hgb/pancytopenia may be 2/2 significant viral infection, myocarditis, anemia has been long standing. Counts continue to recover since discharge. - some component of RE, concern for malabsorption, chronic blood loss. - No improvement with months of PO iron - s/p IV iron sucrose 200mg x 5 last dose on 08/11/2023 - Recent GI workup per 08/21/2023 admission for abd pain - EGD, colonoscopy, labs. Now following with Dr. Callahan. Encouraged to follow up with GI to complete workup - reviewed hematology role in managing anemia today, pt acknowledged. - continue to monitor CBC, iron studies. - 09/05/2023 : HGB 11.6, reviewed with patient today. Good response with IV iron. - iron studies pending, discussed likely require repeat IV iron as she does not absorb PO - Will call with results from today's labs, may need to schedule repeat IV iron maintenance. Pt acknowledged and agreeable with plan. Menorrhagia with irregular cycle - hx of 5 miscarriages, 5 pregnancies with heavy bleeding. Post hemorrhage requiring blood transfusion - continue to follow with LOGISTIC SPECIALIST - VWF panel, unremarkable - factor VII elevated, may be secondary to inflammation. Can consider redraw in future. Myocarditis 2/2 flu b - medications discontinued at last hospital visit 08/19/23 - follow up with cardiology as scheduled Follow up with PCP for routine health maintenance. RTC in about 8 weeks with cbc, iron studies prior. Yaneth Davenport APRN.VETERINARY TOXICOLOGIST I spent a total of 60 minutes on the date of the service which included preparing to see the patient, [id number] patient care, completing clinical documentation, performing a medically appropriate examination, and counseling and educating the patient/family/caregiver. Portions of this note including HPI, ROS, impression/plan may have been copied forward as to provide important historical information essential in contributing to medical decision making. Documentation has been reviewed and edited as necessary to support clinical decision making for today's visit and to reflect my own independent evaluation of this patient. documented in this encounter [facility] 08-21-2023 Procedure note [facility] 08-21-2023 Procedure note [facility] 08-21-2023 Procedure note [facility] 08-21-2023 Procedure note [facility] 08-20-2023 Progress note Note Date/Time August 20, 2023 12:02pm [facility] Medical Records Department [address] [place] [address] Progress Note - Hospitalist 08/20/23 1202 MR#: [id number] Acct: [id number] Name: CAROLA HARDING Rep #:[id number] : 1990 32 From: Nitish monge DO PCP: Dr. Jamari Zhang, Status:AD M IN Location: [facility] [id number] Reason for Visit Reason for Visit: Diagnoses Viral cardiomyopathy (08/19/23) Iron deficiency anemia, unspecified (08/19/23) Unspecified abdominal pain (08/19/23) Nausea with vomiting, unspecified (08/19/23) Subjective Subjective No acute events overnight. Patient seen at bedside this morning. Patient was sleeping on my arrival to the room. On awakening, patient denies any acute painor discomfort. Notes that Dr. Callahan saw her last night and she is understanding of the plan to complete colonoscopy prep this afternoon and have both colonoscopy and EGD done tomorrow. She is looking forward to getting thesetests done to try to figure out what else may be going on. Denies any other acute concerns at this time. Objective Data Objective Data Vital Signs: Vital Signs Temp Pulse Resp BP Pulse Ox O2 Del Method 98.5 F 60 16 84/49 L 98 Room Air 08/20/23 11:08 08/20/23 11:08 08/20/23 11:08 08/20/23 11:08 08/20/23 11:08 08/20/23 11:08 Oxygen Delivery Method Room Air Weight: 41 kg Body Mass Index (BMI) 17.0 Intake & Output: Intake and Output for Last 24 Hours 08/18/23 08/19/23 08/21/23 23:59 23:59 00:59 Intake Total 1600 / 2220 1730 / 2430 1250 / 1250 Balance 1600 / 2220 1730 / 2430 1250 / 1250 Lab / Micro Data 08/20/23 07:51 08/20/23 07:51 Labs: Laboratory Results - last 24 hr 08/19/23 07:39: Iron 23 L, TIBC 220 L, Iron Saturation 10.5 L 08/19/23 12:04: Ferritin 290 H, Vitamin D 25-Hydroxy 30.5 08/19/23 16:30: ESR 4, Phosphorus 1.8 L, Magnesium 2.2, C-React Prot Ext Range <2.90, Folate 9.20, TSH 1.30, Free T4 0.81, Free T3 pg/dL 2.2 08/19/23 20:20: Urine Test Negative 08/20/23 07:51: WBC 3.1 L, RBC 3.75 L, Hgb 9.9 L, Hct 31.6 L, MCV 84.3, MCH 26.4L, MCHC 31.3 L D, RDW Std Deviation 66.9 H, RDW Coeff of Vandana 22.4 H, Plt Count 214, MPV 9.2, Sodium 144, Potassium 3.3 L, Chloride 112 H, Carbon Dioxide 29.0, Anion Gap 3 L, BUN 5 L, Creatinine 0.59, Estim Creat Clear Calc 88.60, Est GFR (MDRD) Af Amer 150, Est GFR (MDRD) Non-Af 124, BUN/Creatinine Ratio 8.4 L, Glucose 97, Calcium 8.2 L 08/20/23 07:51: Calcium Cancelled Micro: Microbiology 08/18/23 00:13 Mucosa - Nasopharyngeal Respiratory Panel (PCR) - Final Rhinovirus Radiography Diagnostic Testing: Radiology Impression Echocardiogram 08/18/23 16:47 Interpretation Summary Normal LV size. The left ventricular ejection fraction is 40 %. There is mild to moderate global hypokinesis of the left ventricle. Contrast injection was performed. Compared to previous study, the left ventricular systolic function has improved.. Ordering Physician: Wilbert Vogel Referring Physician: Jamari Zhang Performed By: Niesha Keene, DARRYL, RVT Rhythm Strip Rhythm Strip: Sinus Rhythm Rate: 80 Physical Exam Const alert, oriented x3 and no apparent distress Constitutional Narrative: Young female, thin and somewhat chronically ill-appearing, mildly fatigued appearing, otherwise sitting up comfortably in bed, conversing normally, no acute distress. General Appearance: cooperative and comfortable HEENT normocephalic, head/scalp atraumatic, hearing grossly normal bilaterally, nasal mucous membranes and turbinates normal and moist oral mucous membranes Eyes PERRL, EOMs intact bilaterally and conjunctivae normal Neck full ROM and supple Chest inspection of chest normal Resp normal respiratory effort, normal air movement, no use of accessory muscles and clear to auscultation bilaterally Cardio regular rate, regular rhythm, no murmurs and peripheral pulses 2+ throughout GI normal to inspection, nondistended, normoactive bowel sounds, soft to palpation,non-tender and non-distended Back/Spine normal ROM Extremity normal to inspection, full ROM and no pedal edema Skin no rashes or lesions noted Neuro moves all extremities and no focal motor deficits Speech: speech normal Psych mental status grossly normal Assessment & Plan Assessment/Plan (1) Nausea and vomiting: QUALIFIERS: Vomiting type: unspecified Qualified Code(s): R11.2 -Nausea with vomiting, unspecified (2) Cardiomyopathy: QUALIFIERS: Cardiomyopathy type: viral Qualified Code(s): B33.24 - Viral cardiomyopathy PLAN: Plan Patient is a 32-year-old female who presented [facility] ED on 08/18/2023 with worsening fatigue, malaise and intractable nausea and vomiting. 1. Recent diagnosed HFrEF with dilated cardiomyopathy, concern for low output heart failure ? Recent hospitalization in July for influenza A infection. Found to have newly reduced EF of 35% with dilated cardiomyopathy. Cardiology followed duringthat admission, had difficulty uptitrating medications due to persistent hypotension. ? Saw Dr. Vogel with cardiology in the office on 08/08. Continued on Lopressor 12.5 mg twice daily, spironolactone 12.5 mg daily at that time. ? Presented with worsening fatigue, malaise and nausea/vomiting. Rhinovirus infection as noted below may be contributing but per cardiology, have higher concern for low output heart failure state at this time given clear chest x-ray andnormal BNP on admit but JVD on exam and persistent nausea/vomiting with meals. ? Orthostatic vitals with minimal change in blood pressure but did have significant change in heart rate, thus these were positive. ? Repeat TTE on 08/18 showed EF 40%, mild to moderate global hypokinesis of LV, nochanges from previous echo 1 month ago. ? Cardiology following. Continue to hold Lopressor and spironolactone given herheart rate dropping recumbency and low blood pressure overall. GI following as noted below. 2. Concern for malabsorption syndrome, suspected malnutrition ? BMI 17 on admit. Thin and quite ill-appearing on admission. Reports minimal p.o. intake over the last few days due to nausea/vomiting. ? Follows with GI outpatient for chronic iron deficiency anemia requiring IV iron transfusions as noted below. ? GI following. Planning for EGD and colonoscopy on 08/20, will complete prep today and be clear liquid diet after midnight. Large biochemical workup sent aswell, most of those labs remain pending. 3. Chronic iron deficiency anemia ? Hemoglobin 10.6 on admit, down trended to 9.1 on hospital day 2 after IV fluidresuscitation. Hemoglobin was stable around 8.0 during previous hospitalizationabout 1 month ago. ? Has history of significant iron deficiency anemia of unclear origin, followingwith GI as noted above. Has history of requiring IV iron transfusions. ? Hemoglobin has remained stable around 9. Repeat iron studies on 08/18 showed low iron and mildly low TIBC, but ferritin much improved and actually slightly above normal range. ? Monitor CBC daily. GI following as noted above. 4. Mild hypokalemia, improved ? Potassium 3.2 on admit, presumed secondary to recent nausea/vomiting with possibly some degree of malabsorption. Magnesium 2.0 on admit. Replete potassium as needed. 5. Mild hypocalcemia ? Calcium 7.3 on 08/17, albumin 2.6, corrected calcium 8.4. Given concern for both malfunction syndrome and bradycardia with recumbency, given dose of 2 g calcium gluconate IV on 08/18. Vitamin D level normal. Started on p.o. calcium supplement on 08/18, continue this for now. 6. Rhinovirus infection ? Positive for rhinovirus on admission. Symptomatic management. 7. Anxiety and depression ? Continue home sertraline. 8. Debility ? Secondary to medical concerns as noted above. PT/OT/case management following. DVT prophylaxis: Low risk, ambulate CODE STATUS: Full code, verified Expected disposition: TBD Total clinical time spent by myself addressing the patient's medical issues, reviewing all the data, and collaborating with patient's care team: 35 minutes. Charges/Coding Visit Charges Inpatient E&M: 69889 Subs Hosp L2 08/20/23 0096 <Electronically signed by Nitish Freire DO> Cosigner Signature (if applicable): CC: ~ Signed [facility] Work Phone: 1(738) 266-692103-10-2024 Progress note Author Andi Friend [facility] August 20, 2023 12:10pm Note Date/Time August 20, 2023 12: 10pm [facility] Medical Records Department [address] [place] [id number] Progress Note - GI 08/20/23 1210 MR#: [id number] Acct: [id number] Name: CAROLA HARDING Rep #:[id number] : 1990 32 From: Andi Callahan DO PCP: Dr. Jamari Zhang, DO Status:AD M IN Location: [facility]3 [id number] Subjective Subjective Patient is abdominal pain is little better today. She is not eating much. Objective Data Objective Data Vital Signs: Vital Signs Temp Pulse Resp BP Pulse Ox O2 Del Method 98.5 F 60 16 84/49 L 98 Room Air 08/20/23 11:08 08/20/23 11:08 08/20/23 11:08 08/20/23 11:08 08/20/23 11:08/20/23 11:08 Oxygen Delivery Method Room Air Weight: 90 lb 6.232 oz Body Mass Index (BMI) 17.0 Intake & Output: Intake and Output for Last 24 Hours 08/18/23 08/19/23 08/21/23 23:59 23:59 00:59 Intake Total 1600 / 2220 1730 / 2430 1250 / 1250 Balance 1600 / 2220 1730 / 2430 1250 / 1250 Lab / Micro Data 08/20/23 07:51 08/20/23 07:51 Labs: Laboratory Results - last 24 hr 08/19/23 07:39: Iron 23 L, TIBC 220 L, Iron Saturation 10.5 L 08/19/23 12:04: Ferritin 290 H, Vitamin D 25-Hydroxy 30.5 08/19/23 16:30: ESR 4, Phosphorus 1.8 L, Magnesium 2.2, C-React Prot Ext Range <2.90, Folate 9.20, TSH 1.30, Free T4 0.81, Free T3 pg/dL 2.2 08/19/23 20:20: Urine Test Negative 08/20/23 07:51: WBC 3.1 L, RBC 3.75 L, Hgb 9.9 L, Hct 31.6 L, MCV 84.3, MCH 26.4L, MCHC 31.3 L D, RDW Std Deviation 66.9 H, RDW Coeff of Vandana 22.4 H, Plt Count 214, MPV 9.2, Sodium 144, Potassium 3.3 L, Chloride 112 H, Carbon Dioxide 29.0, Anion Gap 3 L, BUN 5 L, Creatinine 0.59, Estim Creat Clear Calc 88.60, Est GFR (MDRD) Af Amer 150, Est GFR (MDRD) Non-Af 124, BUN/Creatinine Ratio 8.4 L, Glucose 97, Calcium 8.2 L 08/20/23 07:51: Calcium Cancelled Micro: Microbiology 08/18/23 00:13 Mucosa - Nasopharyngeal Respiratory Panel (PCR) - Final Rhinovirus Radiography Diagnostic Testing: Radiology Impression Echocardiogram 08/18/23 16:47 Interpretation Summary Normal LV size. The left ventricular ejection fraction is 40 %. There is mild to moderate global hypokinesis of the left ventricle. Contrast injection was performed. Compared to previous study, the left ventricular systolic function has improved.. Ordering Physician: Wilbert Vogel Referring Physician: Jamari Zhang Performed By: Niesha Keene, RDCS, RVT Rhythm Strip Rhythm Strip: Sinus Rhythm Rate: 80 Physical Exam Narrative Physical Examination: General: Awake, alert, oriented x 3 and cooperative, seated upright in the ED bed in no apparent distress, fatigued appearing. Skin: Normal color, normal turgor, no icterus, no cyanosis. HEENT: AT/NC, EOMI, PERRLA, dry MM, no carotid bruits or JVD noted. Lungs: CTA bilaterally, moderate effort, mild decrease BL bases, no rales, ronchi or wheezing. Heart: Regular rate and rhythm; no gallop, rub audible. Abdomen: Soft, thin habitus, NTTP, ND, hyperactive BS, no appreciated HSM. Extremities: No cyanosis, clubbing, or edema. Neurological: Patient awake, alert, oriented as noted, cognitive function intact; pupils equally reactive to light and accommodation, cranial nerves II-XII grossly normal, moving all 4 extremities, no focal deficits, strength improved, mildly to moderately global decrease secondary to presentation complaints. Psychiatric: Affect appears flat, fatigued, no acute evidence of depressive or anxiety feelings but does have underlying history. Assessment & Plan Assessment/Plan (1) Nausea and vomiting: QUALIFIERS: Vomiting type: unspecified Qualified Code(s): R11.2 -Nausea with vomiting, unspecified (2) Abdominal pain: (3) Anemia: QUALIFIERS: Anemia type: iron deficiency Iron deficiency anemia type: unspecified iron deficiency Qualified Code(s): D50.9 - Iron deficiency anemia, unspecified PLAN: Plan 32-year-old with recent diagnosis of infectious cardiomyopathy from influenza B comes in with progressive fatigue and weakness discovered to have RSV with a history of iron deficiency anemia and weight loss. The differential diagnosis does include hypoadrenalism, celiac sprue, less likely autoimmune enteropathy orprotein- losing enteropathy. We will need to perform biochemical workup to see if she has any autoimmune disease that was contributing to iron deficiency anemiaand weight loss. That would be autoimmune gastritis or pernicious anemia. Recommend: -Biochemical workup -EGD and colonoscopy with biopsy and possible capsule endoscopy -If patient is here on 08/21/2023 then we will perform both procedures then. In the meantime I will send off blood work. -Clear liquid diet after midnight and prep for EGD and colonoscopy on 08/21/2023. Charges/Coding Visit Charges Inpatient E&M: 52140 Subs Hosp L3 08/20/23 1210 <Electronically signed by Andi Callahan DO> Cosigner Signature (if applicable): CC: ~ Signed [facility] Work Phone: 1(405) 832-311603-09-2024 Consult note Author Andi Callahan [facility] August 19, 2023 2:31pm Note Date/Time August 19, 2023 2:24 pm [facility] Medical Records Department [address] [place], [place] [address] [address] Consultation - GI 08/19/23 1421 MR#: [id number] Acct: [id number] Name: CAROLA HARDING Rep #:[id number] : 1990 32 From: Andi Callahan DO PCP: Dr. Jamari Zhang, Status:KERRIE Mazariegos JUDE Location: [place] [address] HPI Consult Data Date of Consult: 08/19/23 HPI Narrative Reason for Consultation: Protein losing enteropathy and anemia HPI Narrative: CAROLA HARDING is a 32 y/o F w/ PMHx: Recent 07/2022 Acute 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 She denies dyspnea, orthopnea, weight gain, chest pain. She denies any recent ill contacts in the home. Workup in the ED included T98.1, heart rate 104, BP 79/57, respiratory rate 16, on high percent on room air, most recent vital signsheart rate 69, BP 88/59, respiratory rate 16, 96% on room air, orthostatics not marked, review of previous vital signs during prior presentations with chronically low blood pressure evident ,CBC with WBC 5.0, hemoglobin 10.6, MCV 83.9, platelet 168 with lymphopenia, CMPwith potassium 3.2, chloride 108, hepatic profile unremarkable, lipase 20, serumpregnancy negative, urinalysis with ketone 5, occult blood 250, negative nitrite, leukocyte Estrace 25 with no obvious evidence of UTI nor any marked urine RBCs of note, chest x-ray with no acute cardiopulmonary findings, EKG withSR without acute evidence of ischemia, magnesium 2.0, troponin 16, BNP 4.7. She is currently being seen by cardiology for viral cardiomyopathy and hypotension. I was asked to see her due to her inability to gain weight and iron deficiency anemia. She has been following up with hematology and has been is receiving iron transfusions for iron deficiency anemia. She has a daughter with celiac disease. She also has a family history of spontaneous blood clotting resulting in a stroke in her mother. She was diagnosed with severe hyperthyroidism during her last and was treated with medications. Shesaid on follow-up blood work that her thyroid studies were normal. In the hospital she is being treated for hypocalcemia and hypokalemia. Her hemoglobin has been relatively stable since being in the hospital although todayit did drop down from 10.4-9.3. She says she has normal bowel movements on a daily basis and denies any diarrhea. Only medicines that she takes on a daily basis are sertraline for depression and iron prior to being on medicines for hercardiomyopathy. [facility] Medical History Anxiety and depression Chronic anemia Clavicle fracture History of thyroid disorder Myocarditis Painful orthopaedic hardware Home Medications ascorbic acid (vitamin C) 500 mg tablet (Vitamin C) 500 mg PO BID supplement 07/13/23 [History Last Taken 07/10/23] ferrous sulfate 142 mg (45 mg iron) tablet,extended release (Slow Release Iron) 142 mg PO BID iron deficiency 07/13/23 [History Last Taken 07/10/23] guaifenesin 1 tab PO Q6H PRN cold symptoms 07/13/23 [History Last Taken 07/12/23] sertraline 25 mg tablet 25 mg PO DAILY 07/13/23 [History Last Taken 07/10/23] metoprolol tartrate 25 mg tablet 12.5 mg (1/2 x 25 mg) PO BID 30 days #30 tabs 08/08/23 [Rx Last Taken Unknown] spironolactone 25 mg tablet 12.5 mg (1/2 x 25 mg) PO DAILY 30 days #15 tabs 08/08/23 [Rx Last Taken Unknown] ondansetron 4 mg disintegrating tablet 4 mg PO Q6H PRN nausea and vomiting #12 tabs 08/17/23 [Rx Last Taken Unknown] Allergy/AdvReac Type Severity Reaction Status Date / Time amoxicillin [Amoxicillin] Allergy Hives Verified 08/17/23 16:59 cefixime [From Suprax] Allergy Hives Verified 08/17/23 16:59 lactulose Allergy Hives Verified 08/17/23 16:59 oxycodone HCl [From Percocet] AdvReac Abd Verified 08/17/23 16:59 cramps/diarrhea Family History Mother Diabetes Heart disease Hypertension CVA (cerebral vascular accident) HLD (hyperlipidemia) Father Osteoarthritis Surgical History History of tonsillectomy and adenoidectomy Hx of tubal ligation Hx of tympanostomy tubes S/P ORIF (open reduction internal fixation) fracture Social History household members: spouse Smoking Status: Never smoker alcohol intake: never substance use type: does not use caffeine: Yes Type: carbonated beverages ROS ROS Narrative Admission Review of Systems: CONSTITUTIONAL: No weight loss, fever, chills, + weakness or fatigue. HEENT: Eyes: No visual loss, blurred vision, double vision or yellow sclerae. Ears, Nose, Throat: No hearing loss, sneezing, congestion, runny nose or sore throat. SKIN: No rash or itching, lesions, wounds. CARDIOVASCULAR: No chest pain, chest pressure or chest discomfort, palpitations,edema, orthopnea, syncopal events. RESPIRATORY: No shortness of breath, cough or sputum, wheezing, hemoptysis. GASTROINTESTINAL: + anorexia, nausea, vomiting, abdominal cramping. No diarrhea,melena, BRBPR. GENITOURINARY: No dysuria, frequency, urgency or retention. NEUROLOGICAL: No headache, dizziness, syncope, paralysis, ataxia, numbness or tingling in the extremities, focal weakness, change in bowel or bladder control,seizure. MUSCULOSKELETAL: + muscle, back pain, joint pain or stiffness. HEMATOLOGIC: + anemia. No bleeding or easy bruising. LYMPHATICS: No enlarged nodes. No history of splenectomy. PSYCHIATRIC: + history of depression and anxiety. ENDOCRINOLOGIC: No reports of sweating, cold or heat intolerance. No polyuria orpolydipsia. ALLERGIES: No history of asthma, hives, eczema or rhinitis. Constitutional Constitutional: Reports as per HPI Eyes Eyes: Reports systems reviewed and no addt'l complaints, except as documented ENT HEENT: Reports systems reviewed and no addt'l complaints, except as documented Cardiovascular Cardiovascular: Reports as per HPI Respiratory/Chest Respiratory/Chest: Reports as per HPI Gastrointestinal Gastrointestinal: Reports anorexia Genitourinary Genitourinary: Reports systems reviewed and no addt'l complaints, except as documented Musculoskeletal Musculoskeletal: Reports systems reviewed and no addt'l complaints, except as documented Integumentary Integumentary: Reports systems reviewed and no addt'l complaints, except as documented Neurologic Neurologic: Reports systems reviewed and no addt'l complaints, except as documented Psychiatric Psychiatric: Reports systems reviewed and no addt'l complaints, except as documented Endocrine Endocrinology: Reports systems reviewed and no addt'l complaints, except as documented Hematologic/Lymphatic Hematologic/Lymphatic: Reports as per HPI Allergic/Immunologic Allergic/Immunologic: Reports systems reviewed and no addt'l complaints, except as documented Physical Exam Narrative Physical Examination: General: Awake, alert, oriented x 3 and cooperative, seated upright in the ED bed in no apparent distress, fatigued appearing. Skin: Normal color, normal turgor, no icterus, no cyanosis. HEENT: AT/NC, EOMI, PERRLA, dry MM, no carotid bruits or JVD noted. Lungs: CTA bilaterally, moderate effort, mild decrease BL bases, no rales, ronchi or wheezing. Heart: Regular rate and rhythm; no gallop, rub audible. Abdomen: Soft, thin habitus, NTTP, ND, hyperactive BS, no appreciated HSM. Extremities: No cyanosis, clubbing, or edema. Neurological: Patient awake, alert, oriented as noted, cognitive function intact; pupils equally reactive to light and accommodation, cranial nerves II-XII grossly normal, moving all 4 extremities, no focal deficits, strength improved, mildly to moderately global decrease secondary to presentation complaints. Psychiatric: Affect appears flat, fatigued, no acute evidence of depressive or anxiety feelings but does have underlying history. Lab / Micro Data 08/19/23 07:39 08/19/23 07:39 Labs: Laboratory Results - last 24 hr 08/19/23 07:39: WBC 2.0 L, RBC 3.69 L, Hgb 9.2 L, Hct 31.2 L, MCV 84.6, MCH 24.9L, MCHC 29.5 L, RDW Std Deviation 67.7 H, RDW Coeff of Vandana 22.7 H, Plt Count 194, MPV 9.4, Differential Comment SCANNED, Sodium 144, Potassium 3.3 L, Chloride 114 H, Carbon Dioxide 28.0, Anion Gap 2 L, BUN 5 L, Creatinine 0.46 L, Estim Creat Clear Calc 113.39, Est GFR (MDRD) Af Amer 203, Est GFR (MDRD) Non-Af168, BUN/Creatinine Ratio 10.9, Glucose 82, Calcium 7.8 L, Iron 23 L, TIBC 220 L, Iron Saturation 10.5 L 08/19/23 12:04: Ferritin 290 H, Vitamin D 25-Hydroxy 30.5 Rhythm Strip Rhythm Strip: Sinus Rhythm Rate: 80 Imaging Radiology Impression Echocardiogram 08/18/23 16:47 Interpretation Summary Normal LV size. The left ventricular ejection fraction is 40 %. There is mild to moderate global hypokinesis of the left ventricle. Contrast injection was performed. Compared to previous study, the left ventricular systolic function has improved.. Ordering Physician: Wilbert Vogel Referring Physician: Jamari Zhang Performed By: Niesha Keene, DARRYL, RVT Assessment & Plan Assessment/Plan (1) Nausea and vomiting: QUALIFIERS: Vomiting type: unspecified Qualified Code(s): R11.2 -Nausea with vomiting, unspecified (2) Abdominal pain: (3) Anemia: QUALIFIERS: Anemia type: iron deficiency Iron deficiency anemia type: unspecified iron deficiency Qualified Code(s): D50.9 - Iron deficiency anemia, unspecified PLAN: Plan 32-year-old with recent diagnosis of infectious cardiomyopathy from influenza B comes in with progressive fatigue and weakness discovered to have RSV with a history of iron deficiency anemia and weight loss. The differential diagnosis does include hypoadrenalism, celiac sprue, less likely autoimmune enteropathy orprotein- losing enteropathy. We will need to perform biochemical workup to see if she has any autoimmune disease that was contributing to iron deficiency anemia and weight loss. That would be autoimmune gastritis or pernicious anemia. Recommend: -Biochemical workup -EGD and colonoscopy with biopsy and possible capsule endoscopy -If patient is here on 08/21/2023 then we will perform both procedures then. In the meantime I will send off blood work. -Clear liquid diet after midnight and prep for EGD and colonoscopy on 08/21/2023. Charges/Coding Visit Charges Inpatient E&M: 15603 Init Hosp L3 08/19/23 1431 <Electronically signed by Andi Callahan DO> Cosigner Signature (if applicable): CC: Dr. Amy Villalba MD; Dr. Jamari Zhang DO; Dr. Wilbert Vogel MD; Andi Callahan DO~ Signed [facility] Work Phone: [phone]) [phone] Progress note [facility] August 19, 2023 2:20pm Note Date/Time August 19, 2023 1:03 pm [facility] Medical Records Department [address] [facility] [place] [address] Progress Note - Hospitalist 08/19/23 1303 MR#: [id number] Acct: [id number] Name: CAROLA HARDING Rep #:[id number] : 1990 32 From: Nitish monge DO PCP: Dr. Jamari Zhang DO Status:KERRIE ROQUE Location: [facility]3 [id number] Reason for Visit Reason for Visit: Diagnoses Viral cardiomyopathy (08/17/23) Iron deficiency anemia, unspecified (08/17/23) Nausea with vomiting, unspecified (08/17/23) Subjective Subjective Patient had episode yesterday afternoon and overnight of bradycardia to the 30s to 40s that developed with her lying flat. She also felt quite weak with ambulating hallways and was noted to be orthostatic positive. No other acute events overnight. Patient seen at bedside this morning. Dr. Vogel with cardiology was speaking with patient at the bedside and was present overthe phone. Several things discussed during conversation, see Dr. Vogel' note for further details. In short, patient and are agreeable to having the GI doctor see her while here to discuss further workup for a possible malabsorption syndrome. Noted to them that it may be best for her to remain here for the next few days at least to complete further workup and they had no issue with this. No other acute concerns this time. Objective Data Objective Data Vital Signs: Vital Signs Temp Pulse Resp BP Pulse Ox O2 Del Method 98 F 69 16 90/59 L 98 Room Air 08/19/23 11:14 08/19/23 11:15 08/19/23 11:14 08/19/23 11:14 08/19/23 11:14 08/19/23 11:14 Oxygen Delivery Method Room Air Weight: 40.91 kg Body Mass Index (BMI) 17.0 Intake & Output: Intake and Output for Last 24 Hours 08/17/23 08/18/23 08/19/23 23:59 23:59 23:59 Intake Total 1000 / 1000 1600 / 2220 1260 / 1260 Balance 1000 / 1000 1600 / 2220 1260 / 1260 Lab / Micro Data 08/19/23 07:39 08/19/23 07:39 Labs: Laboratory Results - last 24 hr 08/19/23 07:39: WBC 2.0 L, RBC 3.69 L, Hgb 9.2 L, Hct 31.2 L, MCV 84.6, MCH 24.9L, MCHC 29.5 L, RDW Std Deviation 67.7 H, RDW Coeff of Vandana 22.7 H, Plt Count 194, MPV 9.4, Differential Comment SCANNED, Sodium 144, Potassium 3.3 L, Chloride 114 H, Carbon Dioxide 28.0, Anion Gap 2 L, BUN 5 L, Creatinine 0.46 L, Estim Creat Clear Calc 113.39, Est GFR (MDRD) Af Amer 203, Est GFR (MDRD) Non-Af168, BUN/Creatinine Ratio 10.9, Glucose 82, Calcium 7.8 L, Iron 23 L, TIBC 220 L, Iron Saturation 10.5 L 08/19/23 12:04: Ferritin 290 H, Vitamin D 25-Hydroxy 30.5 Micro: Microbiology 08/18/23 00:13 Mucosa - Nasopharyngeal Respiratory Panel (PCR) - Final Rhinovirus Radiography Diagnostic Testing: Radiology Impression Echocardiogram 08/18/23 16:47 Interpretation Summary Normal LV size. The left ventricular ejection fraction is 40 %. There is mild to moderate global hypokinesis of the left ventricle. Contrast injection was performed. Compared to previous study, the left ventricular systolic function has improved.. Ordering Physician: Wilbert Vogel Referring Physician: Jamari Zhang Performed By: Niesha Keene RDCS, RVT Rhythm Strip Rhythm Strip: Sinus Rhythm Rate: 80 Physical Exam Const alert, oriented x3 and no apparent distress Constitutional Narrative: Young female, thin and somewhat chronically ill-appearing, mildly fatigued appearing, otherwise sitting up comfortably in bed, conversing normally, no acute distress. General Appearance: cooperative and comfortable HEENT normocephalic, head/scalp atraumatic, hearing grossly normal bilaterally, nasal mucous membranes and turbinates normal and moist oral mucous membranes Eyes PERRL, EOMs intact bilaterally and conjunctivae normal Neck full ROM and supple Chest inspection of chest normal Resp normal respiratory effort, normal air movement, no use of accessory muscles and clear to auscultation bilaterally Cardio regular rate, regular rhythm, no murmurs and peripheral pulses 2+ throughout GI normal to inspection, nondistended, normoactive bowel sounds, soft to palpation,non-tender and non-distended Back/Spine normal ROM Extremity normal to inspection, full ROM and no pedal edema Skin no rashes or lesions noted Neuro moves all extremities and no focal motor deficits Speech: speech normal Psych mental status grossly normal Assessment & Plan Assessment/Plan (1) Nausea and vomiting: QUALIFIERS: Vomiting type: unspecified Qualified Code(s): R11.2 -Nausea with vomiting, unspecified (2) Cardiomyopathy: QUALIFIERS: Cardiomyopathy type: viral Qualified Code(s): B33.24 - Viral cardiomyopathy PLAN: Plan Patient is a 32-year-old female who presented [facility] ED on 08/18/2023 with worsening fatigue, malaise and intractable nausea and vomiting. 1. Recent diagnosed HFrEF with dilated cardiomyopathy, concern for low output heart failure ? Recent hospitalization in July for influenza A infection. Found to have newly reduced EF of 35% with dilated cardiomyopathy. Cardiology followed duringthat admission, had difficulty uptitrating medications due to persistent hypotension. ? Saw Dr. Vogel with cardiology in the office on 08/08. Continued on Lopressor 12.5 mg twice daily, spironolactone 12.5 mg daily at that time. ? Presented with worsening fatigue, malaise and nausea/vomiting. Rhinovirus infection as noted below may be contributing but per cardiology, have higher concern for low output heart failure state at this time given clear chest x-ray and normal BNP on admit but JVD on exam and persistent nausea/vomiting with meals. ? Orthostatic vitals with minimal change in blood pressure but did have significant change in heart rate, thus these were positive. ? Repeat TTE on 08/18 showed EF 40%, mild to moderate global hypokinesis of LV, nochanges from previous echo 1 month ago. ? Cardiology following. Continue to hold Lopressor and spironolactone given herheart rate dropping recumbency and low blood pressure overall. GI consulted as noted below. 2. Concern for malabsorption syndrome, suspected malnutrition ? BMI 17 on admit. Thin and quite ill-appearing on admission. Reports minimal p.o. intake over the last few days due to nausea/vomiting. ? Follows with GI outpatient for chronic iron deficiency anemia requiring IV iron transfusions as noted below. ? GI consulted, appreciate further recommendations. Nutrition consulted as well. 3. Chronic iron deficiency anemia ? Hemoglobin 10.6 on admit, down trended to 9.1 on hospital day 2 after IV fluidresuscitation. Hemoglobin was stable around 8.0 during previous hospitalizationabout 1 month ago. ? Has history of significant iron deficiency anemia of unclear origin, followingwith GI as noted above. Has history of requiring IV iron transfusions. ? Hemoglobin has remained stable around 9. Repeat iron studies on 08/18 showed low iron and mildly low TIBC, but ferritin much improved and actually slightly above normal range. ? Monitor CBC daily. GI consulted as noted above. 4. Mild hypokalemia, improved ? Potassium 3.2 on admit, presumed secondary to recent nausea/vomiting with possibly some degree of malabsorption. Magnesium 2.0 on admit. Replete potassium as needed. 5. Mild hypocalcemia ? Calcium 7.3 on 08/17, albumin 2.6, corrected calcium 8.4. Given concern for both malfunction syndrome and bradycardia with recumbency, given dose of 2 g calcium gluconate IV on 08/18. Will also start p.o. calcium supplement 5 mg 3 times daily with meals. Vitamin D level ordered as well. 6. Rhinovirus infection ? Positive for rhinovirus on admission. Symptomatic management. 7. Anxiety and depression ? Continue home sertraline. 8. Debility ? Secondary to medical concerns as noted above. PT/OT/case management following. DVT prophylaxis: Low risk, ambulate CODE STATUS: Full code, verified Expected disposition: Home, 2 to 3 days Total clinical time spent by myself addressing the patient's medical issues, reviewing all the data, and collaborating with patient's care team: 35 minutes. Charges/Coding Visit Charges Inpatient E&M: 68242 Subs Hosp L2 08/19/23 1420 <Electronically signed by Nitish Freire DO> Cosigner Signature (if applicable): CC: ~ Signed [facility] Work Phone: 1(485) 207-100803-09-2024 Progress note Author Wilbert Vogel [facility] August 19, 2023 10:28am Note Date/Time August 19, 2023 10:[address] [facility] Medical Records Department [address] [place] [address] Progress Note - Cardiology 08/19/23 1016 MR#: [id number] Acct: [id number] Name: CAROLA HARDING Delilah Rep #:[id number] : 1990 32 From: Wilbert Vogel MD PCP: Dr. Jamari Zhang, DO Status:AD M JUDE Location: MS3 IC503-1 Subjective Subjective The patient was interviewed and discussion was done with Dr. Freire the patient and her on the phone. The patient continues to report she feels about the same. An echocardiogram done this morning showed that her ejection fraction has not changed is 35% thereis no significant tricuspid regurgitation. Her BNP was only 5. This is not consistent with florid heart failure or volume retention. She probably does have some decrease in her cardiac output given her ejection fraction of 35% but she is not in heart failure at this time. Her physical exam with her JVD and her crackles in the bases of her lungs are consistent with heart failure howeverher BNP and her chest x-ray do not support that. She also has a lab work that shows her albumin of 2.6 and a calcium of 7.3 even corrected for the albumin is low. We went into detail about her past medical history apparently ever since she started having children things have started to change. She has always been thinwith a weight of around 85 to 86 pounds. But she has had progressive anemia since the of her second or third child and her daughter was diagnosed withceliac disease. The patient is supposed to see a GI physician at the [facility] but has not been able to schedule that yet. She had she had received iron for her ongoing chronic anemia during at least one of her pregnancies. Shehas delivered 5 children vaginally. Objective Data Vital Signs: Vital Signs Temp Pulse Resp BP Pulse Ox O2 Del Method 98 F 80 16 81/49 L 99 Room Air 08/19/23 08:58 08/19/23 08:58 08/19/23 08:58 08/19/23 08:58 08/19/23 08:58 08/19/23 08:58 Oxygen Delivery Method Room Air Weight: 90 lb 3.058 oz Body Mass Index (BMI) 17.0 Intake & Output: Intake and Output for Last 24 Hours 08/17/23 08/18/23 08/19/23 23:59 23:59 23:59 Intake Total 1000 / 1000 1600 / 2220 860 / 860 Balance 1000 / 1000 1600 / 2220 860 / 860 Lab / Micro Data Attestation: I reviewed the patient's lab results. 08/19/23 07:39 08/19/23 07:39 Labs: Laboratory Results - last 24 hr 08/19/23 07:39: WBC 2.0 L, RBC 3.69 L, Hgb 9.2 L, Hct 31.2 L, MCV 84.6, MCH 24.9L, MCHC 29.5 L, RDW Std Deviation 67.7 H, RDW Coeff of Vandana 22.7 H, Plt Count 194, MPV 9.4, Differential Comment SCANNED, Sodium 144, Potassium 3.3 L, Chloride 114 H, Carbon Dioxide 28.0, Anion Gap 2 L, BUN 5 L, Creatinine 0.46 L, Estim Creat Clear Calc 113.39, Est GFR (MDRD) Af Amer 203, Est GFR (MDRD) Non-Af168, BUN/Creatinine Ratio 10.9, Glucose 82, Calcium 7.8 L Micro: Microbiology 08/18/23 00:13 Mucosa - Nasopharyngeal Respiratory Panel (PCR) - Final Rhinovirus Rhythm Strip Rhythm Strip: Sinus Rhythm Rate: 80 Cardiology Labs/Tests 08/19/23 07:39: WBC 2.0 L, RBC 3.69 L, Hgb 9.2 L, Hct 31.2 L, MCV 84.6, MCH 24.9L, MCHC 29.5 L, Plt Count 194, MPV 9.4, Sodium 144, Potassium 3.3 L, Chloride 114 H, Carbon Dioxide 28.0, Anion Gap 2 L, BUN 5 L, Creatinine 0.46 L, Est GFR (MDRD) Af Amer 203, Est GFR (MDRD) Non-Af 168, BUN/Creatinine Ratio 10.9, Glucose 82, Calcium 7.8 L Rhythm: EKG: ECHO: Stress Test: Cardiac Cath: PCI: CT Surgery: Holter monitor: EPS: PPM: CXR: Chest CT Scan: Physical Exam Const oriented x3 HEENT normocephalic Eyes EOMs intact bilaterally Neck Neck Narrative: The patient is cachectic appearing with JVD noted to the angle of the jaw at 45 degrees. Her echocardiogram today did not show any significant tricuspid regurgitation. Carotids: Negative for bruit Chest inspection of chest normal Resp normal respiratory effort Auscultation: crackles bilateral base Cardio regular rate, no murmurs and no rub Rhythm: abnormal rhythm ectopic beats Heart Sounds: gallop S3 gallop (Difficult to hear what appears to be an S3 gallop along the right sternal border. There are also multiple extrasystoles.) GI GI Narrative: Scaphoid and thin. Extremity no pedal edema Neuro Neuro Narrative: Alert and oriented x 3 Psych mental status grossly normal Assessment & Plan Assessment/Plan (1) Cardiomyopathy: QUALIFIERS: Cardiomyopathy type: viral Qualified Code(s): B33.24 - Viral cardiomyopathy PLAN: The patient's repeat echocardiogram shows an ejection fraction of 35% withno significant tricuspid regurgitation. Her chest x-ray does not show any heartfailure. Her BNP is 5. However if she has the appearance of a low cardiac output syndrome. Her blood work suggest malnutrition she was hypokalemic when she first came in and is hypocalcemic now. Even corrected for albumin of 2.6 her calcium is low. I discussed the situation with the heart failure specialist at [facility] and they agree that this appears to be a malnutrition issue that is exacerbating theimpact of her low cardiac output from an ejection fraction of 35%. I have recommended and discussed with Dr. Freire the patient and her that we should obtain guidance from from gastroenterology and/or dietary to get her on the appropriate supplements and/or testing performed to figure out if this is some type of malabsorption syndrome. The patient did report that she had had transient hypothyroidism with her first but she was treated with medication and it did not recur with other pregnancies. (2) Anemia: QUALIFIERS: Anemia type: iron deficiency Iron deficiency anemia type: unspecified iron deficiency Qualified Code(s): D50.9 - Iron deficiency anemia, unspecified PLAN: The patient's hemoglobin is up to 9.2 it was 8 when she was hospitalized back in June. She has received iron. (3) Nausea and vomiting: QUALIFIERS: Vomiting type: unspecified Qualified Code(s): R11.2 -Nausea with vomiting, unspecified PLAN: The nausea and vomiting seems to have resolved she had been on Ensure at home and she is unsure of how much she was taking in or retaining. Dr. Freire will asked the gastroenterology team to evaluate the patient to maybe give us some guidance around supplements and/or further evaluation that would beindicated to rule out malabsorption. PLAN: Plan 1. Given the patient's heart rate dropping with recumbency and her blood pressure in the 85 systolic range we cannot reinstitute any vasoactive medications to treat her heart failure. The Lopressor and spironolactone are onhold. 2. Will await to see the results of gastroenterology evaluation. 3. The patient can progress activities as blood pressure and heart rate will tolerate. At this point in time she needs to be out of the bed with assistance given her heart rate and blood pressure issues during this hospitalization. Charges/Coding Visit Charges Inpatient E&M: 10942 Subs Hosp L3 08/19/23 1028 <Electronically signed by Wilbert Vogel MD> Cosigner Signature (if applicable): CC: ~ Signed [facility] Work Phone: 1(158) 992-851603-08-2024 Consult note Author Wilbert Vogel [facility] August 18, 2023 5:37pm Note Date/Time August 18, 2023 5:03 pm [facility] Medical Records Department [address] [place] [address] Consultation - Cardiology 08/18/23 1648 MR#: [id number] Acct: [id number] Name: CAROLA HARDING Rep #:[id number] : 1990 32 From: Wilbert Vogel MD PCP: Dr. 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 Is been very difficult to titrate any medical regimen due to her hemodynamic instability. She had been tolerating 12.5 mg of spironolactone and 12.5 mg twice daily of metoprolol tartrate in her home environment. She has not been able to receive any since she has been hospitalized. The patient's physical exam is consistent with heart failure with JVD and S3 gallop and some crackles in the bases of her lung. However chest x-ray is clearon admission and her BNP is only 5. She does have significant malnutrition witha total protein of 5.3 albumin is 2.6 she has a low calcium of 7.3 but even corrected to an albumin of 4 this is still hypocalcemia. Her BUN is 8 and creatinine is 0.54 consistent with her frail body habitus of 5 feet tall 85 pounds. She is also anemic but her hemoglobin is up to 9.1 from 8.0 on her recent check. She is on iron replacement. She is also to be evaluated by GI for malabsorption. The physical exam, BNP, and hemodynamics do not match for a pure cardiomyopathy with low cardiac output. However her nausea and vomiting and other symptoms areconsistent with a low cardiac output syndrome. I believe this has to have something to do with her malnourished state and we need to address that. I would recommend that GI be of engaged/consulted to get their opinion about how to address replenishing her protein and treating this malnutrition. Will repeat her echocardiogram tomorrow. If her EF has deteriorated I would recommend that we transfer to her heart failure service at [facility]. I had already been in contact with them concerning her case back in June and read discussed the situation with them this evening. I feel that we need invasive monitoring to be able to determine the appropriate therapeutic interventions to best treat her given situation. The heart failure specialist there feels like Elliot that we need to address her nutritional status as this may be part of the etiology of her cardiomyopathy. I have a hard time explaining her BMP of 5. She is not technically in shock at this point in time as her normal blood pressure is 85-95 systolic. She does notshow any endorgan hypoperfusion at this point in time. LFTs are within normal limits her BUN and creatinine are low but are probably artificially pressed due to her malnutrition. (2) Nausea and vomiting: QUALIFIERS: Vomiting type: unspecified Qualified Code(s): R11.2 -Nausea with vomiting, unspecified PLAN: Is possible that her nausea and vomiting is related to low cardiac output syndrome. (3) Anemia: QUALIFIERS: Iron deficiency anemia type: unspecified iron deficiency Anemia type: iron deficiency Qualified Code(s): D50.9 - Iron deficiency anemia, unspecified PLAN: The patient has a longstanding history of anemia [facility] and felt to be iron deficient. She is on replacement therapy. PLAN: Plan 1. I would avoid ambulating her in the halls until we can get a better handle on her hemodynamic status. 2. 2D echocardiogram tomorrow morning. If her EF has deteriorated we will consider transferring her to the [facility] heart failure service. I already discussed this with the patient and her . Thank you for allowing me to participate in the care of your patient. Please don't hesitate to call if any issues arise. This note was generated using a voice recognition system and there may be incorrect words, spelling, or punctuation that were not noted when reviewing theoffice note prior to saving. Portions of this documentation were copied and pasted from previous office visitnotes to provide a cohesive continuity of the history. The note has been reviewed, edited, and updated, as necessary. HPI Consult Data Date of Consult: 08/18/23 HPI Narrative Reason for Consultation: Family requested cardiology evaluate patient's nausea HPI Narrative: CAROLA HARDING, is a 32 F who presents with a complicated GI picture. She presentedthe emergency department yesterday after noting that upon arising yesterday morning she had some uneasiness in her stomach she tried to eat and she wound upthrowing it back up she tried several times and could not keep anything down. She did not describe any pain just nausea and vomiting. She has a history of a viral cardiomyopathy with an ejection fraction of 35% to when she was hospitalized back in late June. Her her chronically low blood pressures and volatile heart rate have made it difficult to titrate medical therapy. We have been able to utilize low-dose beta-blockers and spironolactone but we have not been able to add an NITZA inhibitor due to her blood pressure. When she was evaluated in our office 08/08/2023 her blood pressure was 85/60 her heart rate was 73 and regular and at that time she was metoprolol 12.5 mg twice daily and spironolactone 12.5 mg daily. She had been tolerating this complaining only of some fatigue. She has been chronically anemic and she has had this being evaluated by the [facility] physicians. [facility] syndromes. She is very thin her weight is 85 pounds and she is 5 feet 1 inch tall. The patient has since been admitted to the hospital again and now is off all hermedications blood pressures have been in the 80-90 systolic range her heart ratedrops to 30s when she is laid down in the flat recumbent position. She feels dizzy when this occurs and when she is raised up to the 30 to 45 degree plane she returns to normal. She denies any shortness of breath her O2 sats has been adequate on room air and her chest x-ray was clear with no evidence of active cardiopulmonary disease. [facility] Medical History Anxiety and depression Chronic anemia Clavicle fracture History of thyroid disorder Myocarditis Painful orthopaedic hardware Home Medications ascorbic acid (vitamin C) 500 mg tablet (Vitamin C) 500 mg PO BID supplement 07/13/23 [History Last Taken 07/10/23] ferrous sulfate 142 mg (45 mg iron) tablet,extended release (Slow Release Iron) 142 mg PO BID iron deficiency 07/13/23 [History Last Taken 07/10/23] guaifenesin 1 tab PO Q6H PRN cold symptoms 07/13/23 [History Last Taken 07/12/23] sertraline 25 mg tablet 25 mg PO DAILY 07/13/23 [History Last Taken 07/10/23] metoprolol tartrate 25 mg tablet 12.5 mg (1/2 x 25 mg) PO BID 30 days #30 tabs 08/08/23 [Rx Last Taken Unknown] spironolactone 25 mg tablet 12.5 mg (1/2 x 25 mg) PO DAILY 30 days #15 tabs 08/08/23 [Rx Last Taken Unknown] ondansetron 4 mg disintegrating tablet 4 mg PO Q6H PRN nausea and vomiting #12 tabs 08/17/23 [Rx Last Taken Unknown] Allergy/AdvReac Type Severity Reaction Status Date / Time amoxicillin [Amoxicillin] Allergy Hives Verified 08/17/23 16:59 cefixime [From Suprax] Allergy Hives Verified 08/17/23 16:59 lactulose Allergy Hives Verified 08/17/23 16:59 oxycodone HCl [From Percocet] AdvReac Abd Verified 08/17/23 16:59 cramps/diarrhea Family History Mother Diabetes Heart disease Hypertension CVA (cerebral vascular accident) HLD (hyperlipidemia) Father Osteoarthritis Surgical History History of tonsillectomy and adenoidectomy Hx of tubal ligation Hx of tympanostomy tubes S/P ORIF (open reduction internal fixation) fracture Social History household members: spouse Smoking Status: Never smoker alcohol intake: never substance use type: does not use caffeine: Yes Type: carbonated beverages ROS Constitutional Constitutional: Reports as per HPI Eyes Eyes: Reports systems reviewed and no addt'l complaints, except as documented ENT HEENT: Reports systems reviewed and no addt'l complaints, except as documented Cardiovascular Cardiovascular: Reports as per HPI Respiratory/Chest Respiratory/Chest: Reports as per HPI Gastrointestinal Gastrointestinal: Reports anorexia Genitourinary Genitourinary: Reports systems reviewed and no addt'l complaints, except as documented Musculoskeletal Musculoskeletal: Reports systems reviewed and no addt'l complaints, except as documented Integumentary Integumentary: Reports systems reviewed and no addt'l complaints, except as documented Neurologic Neurologic: Reports systems reviewed and no addt'l complaints, except as documented Psychiatric Psychiatric: Reports systems reviewed and no addt'l complaints, except as documented Endocrine Endocrinology: Reports systems reviewed and no addt'l complaints, except as documented Hematologic/Lymphatic Hematologic/Lymphatic: Reports as per HPI Allergic/Immunologic Allergic/Immunologic: Reports systems reviewed and no addt'l complaints, except as documented Physical Exam Const oriented x3 HEENT normocephalic Eyes EOMs intact bilaterally Neck Carotids: Negative for bruit Chest Chest Narrative: Frail anorexic appearing chest wall. Resp normal respiratory effort Auscultation: rales bilateral base Cardio regular rate, regular rhythm, S1 normal heart sound and S2 normal heart sound Jugular Venous Distention: JVD to the level of the angle of the jaw (At 45 degrees.) Heart Sounds: gallop S3 gallop Peripheral Pulses: radial pulses present bilateral 1+ and posterior tibial pulses present bilateral diminished GI soft to palpation and no bruits Extremity no pedal edema Skin no rashes or lesions noted Neuro Neuro Narrative: Alert and oriented x 3. Psych mental status grossly normal Risk Stratification Risk Stratification Applicable: No Charges/Coding Visit Charges Inpatient E&M: 36221 Init Hosp L3 Objective Data Vital Signs: Vital Signs Temp Pulse Resp BP Pulse Ox O2 Del Method 98.4 F 36 L 14 85/50 L 99 Room Air 08/18/23 12:00 08/18/23 14:32 08/18/23 12:00 08/18/23 14:32 08/18/23 12:00 08/18/23 12:00 Oxygen Delivery Method Room Air Weight: 90 lb 3.058 oz Body Mass Index (BMI) 17.0 Intake & Output: Intake and Output for Last 24 Hours 08/16/23 08/17/23 08/18/23 23:59 23:59 23:59 Intake Total 1000 / 1000 1600 / 1600 Balance 1000 / 1000 1600 / 1600 Lab / Micro Data 08/18/23 05:35 08/18/23 05:35 Labs: Laboratory Results - last 24 hr 08/17/23 17:35: WBC 5.0, RBC 4.16 L, Hgb 10.6 L, Hct 34.9 L, MCV 83.9, MCH 25.5 L, MCHC 30.4 L, RDW Std Deviation 64.8 H, RDW Coeff of Vandana 21.5 H, Plt Count 168, MPV 9.4, Immature Gran % (Auto) 0.200, Neut % (Auto) 81.8 H, Lymph % (Auto)10.2 L, Amelia % (Auto) 7.6, Eos % (Auto) 0.0, Baso % (Auto) 0.2, Absolute Neuts (auto) 4.1, Absolute Lymphs (auto) 0.51 L, Nucleated RBC % 0, Differential Comment SCANNED, Anisocytosis 2+, Microcytosis 1+, Macrocytosis 1+, Sodium 141, Potassium 3.2 L, Chloride 108 H, Carbon Dioxide 27.0, Anion Gap 6, BUN 9, Creatinine 0.60, Estim Creat Clear Calc 82.89, Est GFR (MDRD) Af Amer 147, Est GFR (MDRD) Non-Af 121, BUN/Creatinine Ratio 14.9, Glucose 93, Calcium 8.4 L, Total Bilirubin 0.30 08/17/23 17:35: Total Bilirubin 0.30, Direct Bilirubin 0.10, AST 32 08/17/23 17:35: AST 30, ALT 23 08/17/23 17:35: ALT 23, Alkaline Phosphatase 76 08/17/23 17:35: Alkaline Phosphatase 75, B-Natriuretic Peptide 4.7, Total Protein 6.9 08/17/23 17:35: Total Protein 6.9, Albumin 3.4 08/17/23 17:35: Albumin 3.4, Globulin 3.5 08/17/23 17:35: Globulin 3.5, Albumin/Globulin Ratio 1.0, Lipase 20, Procalcitonin < 0.04, Serum , Qual NEGATIVE 08/17/23 19:40: Urine Color Yellow, Urine Clarity Clear, Urine pH 8.0, Ur Specific Yermo 1.010, Urine Protein Negative, Urine Glucose (UA) Normal, UrineKetones 5 H, Urine Occult Blood 250 H, Urine Nitrite Negative, Urine Bilirubin Negative, Urine Urobilinogen 1 H, Ur Leukocyte Esterase 25 H, Urine RBC 0-5 SEEN, Urine WBC 0-5 SEEN, Ur Squamous Epith Cells 0-5 SEEN, Urine Bacteria 0 SEEN, Urine Mucus 1+ 08/17/23 21:37: Magnesium 2.0, Troponin I High Sens 16 08/18/23 05:35: WBC 2.8 L, RBC 3.54 L, Hgb 9.1 L, Hct 30.5 L, MCV 86.2, MCH 25.7L, MCHC 29.8 L, RDW Std Deviation 69.3 H, RDW Coeff of Vandana 22.4 H, Plt Count 166, MPV 9.2, Immature Gran % (Auto) 0.000, Neut % (Auto) 56.7, Lymph % (Auto) 28.7, Amelia % (Auto) 13.1 H, Eos % (Auto) 1.1, Baso % (Auto) 0.4, Absolute Neuts (auto) 1.6 L, Absolute Lymphs (auto) 0.79 L, Nucleated RBC % 0, Anisocytosis 1+,Sodium 143, Potassium 3.6, Chloride 115 H, Carbon Dioxide 26.0, Anion Gap 2 L, BUN 8, Creatinine 0.54 L, Estim Creat Clear Calc 96.59, Est GFR (MDRD) Af Amer 167, Est GFR (MDRD) Non-Af 138, BUN/Creatinine Ratio 14.8, Glucose 93, Calcium 7.3 L, Total Bilirubin 0.30, AST 29, ALT 18, Alkaline Phosphatase 56, Total Protein 5.3 L, Albumin 2.6 L, Globulin 2.7, Albumin/Globulin Ratio 1.0 Micro: Microbiology 08/18/23 00:13 Mucosa - Nasopharyngeal Respiratory Panel (PCR) - Final Rhinovirus Rhythm Strip Rhythm Strip: Sinus Rhythm Rate: 80 Cardiology Labs/Tests 08/17/23 17:35: WBC 5.0, RBC 4.16 L, Hgb 10.6 L, Hct 34.9 L, MCV 83.9, MCH 25.5 L, MCHC 30.4 L, Plt Count 168, MPV 9.4, Immature Gran % (Auto) 0.200, Neut % (Auto) 81.8 H, Lymph % (Auto) 10.2 L, Amelia % (Auto) 7.6, Eos % (Auto) 0.0, Baso % (Auto) 0.2, Absolute Neuts (auto) 4.1, Nucleated RBC % 0, Sodium 141, Potassium 3.2 L, Chloride 108 H, Carbon Dioxide 27.0, Anion Gap 6, BUN 9, Creatinine 0.60, Est GFR (MDRD) Af Amer 147, Est GFR (MDRD) Non-Af 121, BUN/Creatinine Ratio 14.9, Glucose 93, Calcium 8.4 L, Total Bilirubin 0.30 08/17/23 17:35: Total Bilirubin 0.30, Direct Bilirubin 0.10, B-Natriuretic Peptide 4.7 08/17/23 19:40: Urine Color Yellow, Urine Clarity Clear, Urine pH 8.0, Ur Specific Yermo 1.010, Urine Protein Negative, Urine Glucose (UA) Normal, UrineKetones 5 H, Urine Occult Blood 250 H, Urine Nitrite Negative, Urine Bilirubin Negative, Urine Urobilinogen 1 H, Ur Leukocyte Esterase 25 H, Urine RBC 0-5 SEEN, Urine WBC 0-5 SEEN 08/17/23 21:37: Magnesium 2.0 08/18/23 05:35: WBC 2.8 L, RBC 3.54 L, Hgb 9.1 L, Hct 30.5 L, MCV 86.2, MCH 25.7L, MCHC 29.8 L, Plt Count 166, MPV 9.2, Immature Gran % (Auto) 0.000, Neut % (Auto) 56.7, Lymph % (Auto) 28.7, Amelia % (Auto) 13.1 H, Eos % (Auto) 1.1, Baso %(Auto) 0.4, Absolute Neuts (auto) 1.6 L, Nucleated RBC % 0, Sodium 143, Potassium 3.6, Chloride 115 H, Carbon Dioxide 26.0, Anion Gap 2 L, BUN 8, Creatinine 0.54 L, Est GFR (MDRD) Af Amer 167, Est GFR (MDRD) Non-Af 138, BUN/Creatinine Ratio 14.8, Glucose 93, Calcium 7.3 L, Total Bilirubin 0.30 Rhythm: EKG: ECHO: Stress Test: Cardiac Cath: PCI: CT Surgery: Holter monitor: EPS: PPM: CXR: Chest CT Scan: Radiography Diagnostic Testing: Radiology Impression Chest X-Ray 08/17/23 18:50 IMPRESSION: No acute cardiopulmonary pathology Electronically Signed: Sherif Abdullahi MD at 19:20 EST Reading Location ID and State: [facility] / [place] Tel , Service support , 08/18/23 1737 <Electronically signed by Wilbert Vogel MD> Cosigner Signature (if applicable): CC: Dr. Amy Villalba MD; Dr. Jamari Zhang DO; Dr. Wilbert Vogel MD~ Signed [facility] Work Phone: 1(308) 373-576003-08-2024 Progress note Author Nitish [facility] August 18, 2023 5:23pm Note Date/Time August 18, 2023 1:49 pm [facility] Medical Records Department [address] [place] [address] Progress Note - Hospitalist 08/18/23 1348 MR#: [id number] Acct: [id number] Name: CAROLA HARDING Rep #:[id number] : 1990 32 From: Nitish monge DO PCP: Dr. Jamari Zhang DO Status:AD [facility] Location: [place] [id number] Reason for Visit Reason for Visit: Diagnoses Nausea with vomiting, unspecified (08/17/23) Subjective Subjective Patient admitted yesterday evening for worsening fatigue, malaise and intractable nausea/vomiting. Notably has history of recent admission for influenza A infection with resultant dilated cardiomyopathy with EF 35%. Following with cardiology, is on Lopressor 12.5 mg twice daily and spironolactone 12.5 mg daily for this and blood pressures have typically been ranging in the 80s over 50s. Initial blood pressure in ED of 79/57. Was given a 1 L bolus of normal saline with blood pressures improved into the 80s over high 50s. She was found to be positive for a rhinovirus infection and it was suspected this was causing her symptoms. Given her significant fatigue and malaise as well as borderline blood pressures, she requested admission to the hospital for further management. Patient seen at bedside this morning. She was sitting up comfortably in bed, conversing normally, in no acute distress. Noted that she had not been out of bed yet this morning but felt fine at rest. Denied any lightheadedness or dizziness. Denied any nausea or episodes of vomiting this morning. Had tolerated a small breakfast at that point. Given her improvement, plan was to discharge patient home this afternoon if she tolerated getting up and walking around the room without significant issue. However, patient significant other arrived at bedside this afternoon and was very unhappy that she was being discharged. I saw the patient and significant other at the bedside, had a 15 to 20-minute discussion with them regarding the patient's management. Significant other noted that cardiology had instructed thepatient to come in to the ED yesterday, and he was frustrated that she had not been seen by cardiology yet. He was also frustrated that she did not seem like she was back to her baseline functional status and we were still planning to discharge her. Given this conversation, cardiology was consulted and nursing staff was instructed to have the patient get up and out of bed more frequently this afternoon to see how she does. Objective Data Objective Data Vital Signs: Vital Signs Temp Pulse Resp BP Pulse Ox O2 Del Method 98.7 F 83 16 83/52 L 99 Room Air 08/18/23 10:48 08/18/23 10:48 08/18/23 10:48 08/18/23 10:48 08/18/23 10:48 08/18/23 10:48 Oxygen Delivery Method Room Air Weight: 40.91 kg Body Mass Index (BMI) 17.0 Intake & Output: Intake and Output for Last 24 Hours 08/16/23 08/17/23 08/18/23 23:59 23:59 23:59 Intake Total 1000 / 1000 1600 / 1600 Balance 1000 / 1000 1600 / 1600 Lab / Micro Data 08/18/23 05:35 08/18/23 05:35 Labs: Laboratory Results - last 24 hr 08/17/23 17:35: WBC 5.0, RBC 4.16 L, Hgb 10.6 L, Hct 34.9 L, MCV 83.9, MCH 25.5 L, MCHC 30.4 L, RDW Std Deviation 64.8 H, RDW Coeff of Vandana 21.5 H, Plt Count 168, MPV 9.4, Immature Gran % (Auto) 0.200, Neut % (Auto) 81.8 H, Lymph % (Auto)10.2 L, Amelia % (Auto) 7.6, Eos % (Auto) 0.0, Baso % (Auto) 0.2, Absolute Neuts (auto) 4.1, Absolute Lymphs (auto) 0.51 L, Nucleated RBC % 0, Differential Comment SCANNED, Anisocytosis 2+, Microcytosis 1+, Macrocytosis 1+, Sodium 141, Potassium 3.2 L, Chloride 108 H, Carbon Dioxide 27.0, Anion Gap 6, BUN 9, Creatinine 0.60, Estim Creat Clear Calc 82.89, Est GFR (MDRD) Af Amer 147, Est GFR (MDRD) Non-Af 121, BUN/Creatinine Ratio 14.9, Glucose 93, Calcium 8.4 L, Total Bilirubin 0.30 08/17/23 17:35: Total Bilirubin 0.30, Direct Bilirubin 0.10, AST 32 08/17/23 17:35: AST 30, ALT 23 08/17/23 17:35: ALT 23, Alkaline Phosphatase 76 08/17/23 17:35: Alkaline Phosphatase 75, B-Natriuretic Peptide 4.7, Total Protein 6.9 08/17/23 17:35: Total Protein 6.9, Albumin 3.4 08/17/23 17:35: Albumin 3.4, Globulin 3.5 08/17/23 17:35: Globulin 3.5, Albumin/Globulin Ratio 1.0, Lipase 20, Procalcitonin < 0.04, Serum , Qual NEGATIVE 08/17/23 19:40: Urine Color Yellow, Urine Clarity Clear, Urine pH 8.0, Ur Specific Yermo 1.010, Urine Protein Negative, Urine Glucose (UA) Normal, UrineKetones 5 H, Urine Occult Blood 250 H, Urine Nitrite Negative, Urine Bilirubin Negative, Urine Urobilinogen 1 H, Ur Leukocyte Esterase 25 H, Urine RBC 0-5 SEEN, Urine WBC 0-5 SEEN, Ur Squamous Epith Cells 0-5 SEEN, Urine Bacteria 0 SEEN, Urine Mucus 1+ 08/17/23 21:37: Magnesium 2.0, Troponin I High Sens 16 08/18/23 05:35: WBC 2.8 L, RBC 3.54 L, Hgb 9.1 L, Hct 30.5 L, MCV 86.2, MCH 25.7L, MCHC 29.8 L, RDW Std Deviation 69.3 H, RDW Coeff of Vandana 22.4 H, Plt Count 166, MPV 9.2, Immature Gran % (Auto) 0.000, Neut % (Auto) 56.7, Lymph % (Auto) 28.7, Amelia % (Auto) 13.1 H, Eos % (Auto) 1.1, Baso % (Auto) 0.4, Absolute Neuts (auto) 1.6 L, Absolute Lymphs (auto) 0.79 L, Nucleated RBC % 0, Anisocytosis 1+,Sodium 143, Potassium 3.6, Chloride 115 H, Carbon Dioxide 26.0, Anion Gap 2 L, BUN 8, Creatinine 0.54 L, Estim Creat Clear Calc 96.59, Est GFR (MDRD) Af Amer 167, Est GFR (MDRD) Non-Af 138, BUN/Creatinine Ratio 14.8, Glucose 93, Calcium 7.3 L, Total Bilirubin 0.30, AST 29, ALT 18, Alkaline Phosphatase 56, Total Protein 5.3 L, Albumin 2.6 L, Globulin 2.7, Albumin/Globulin Ratio 1.0 Micro: Microbiology 08/18/23 00:13 Mucosa - Nasopharyngeal Respiratory Panel (PCR) - Final Rhinovirus Radiography Diagnostic Testing: Radiology Impression Chest X-Ray 08/17/23 18:50 IMPRESSION: No acute cardiopulmonary pathology Electronically Signed: Sherif Abdullahi MD at 19:20 EST Reading Location ID and State: [facility] / [place] Tel , Service support , Physical Exam Const alert, oriented x3 and no apparent distress Constitutional Narrative: Young female, thin and somewhat chronically ill-appearing, mildly fatigued appearing, otherwise sitting up comfortably in bed, conversing normally, no acute distress. General Appearance: cooperative and comfortable HEENT normocephalic, head/scalp atraumatic, hearing grossly normal bilaterally, nasal mucous membranes and turbinates normal and moist oral mucous membranes Eyes PERRL, EOMs intact bilaterally and conjunctivae normal Neck full ROM and supple Chest inspection of chest normal Resp normal respiratory effort, normal air movement, no use of accessory muscles and clear to auscultation bilaterally Cardio regular rate, regular rhythm, no murmurs and peripheral pulses 2+ throughout GI normal to inspection, nondistended, normoactive bowel sounds, soft to palpation,non-tender and non-distended Back/Spine normal ROM Extremity normal to inspection, full ROM and no pedal edema Skin no rashes or lesions noted Neuro moves all extremities and no focal motor deficits Speech: speech normal Psych mental status grossly normal Assessment & Plan Assessment/Plan (1) Nausea and vomiting: (2) Cardiomyopathy: QUALIFIERS: Cardiomyopathy type: viral Qualified Code(s): B33.24 - Viral cardiomyopathy PLAN: Plan Patient is a 32-year-old female who presented [facility] ED on 08/18/2023 with worsening fatigue, malaise and intractable nausea and vomiting. 1. Recent diagnosed HFrEF with dilated cardiomyopathy, concern for low output heart failure ? Recent hospitalization in July for influenza A infection. Found to have newly reduced EF of 35% with dilated cardiomyopathy. Cardiology followed duringthat admission, had difficulty uptitrating medications due to persistent hypotension. ? Saw Dr. Vogel with cardiology in the office on 08/08. Continued on Lopressor 12.5 mg twice daily, spironolactone 12.5 mg daily at that time. ? Presented with worsening fatigue, malaise and nausea/vomiting. Rhinovirus infection as noted below may be contributing but per cardiology, have higher concern for low output heart failure state at this time given clear chest x-ray and normal BNP on admit but JVD on exam and persistent nausea/vomiting with meals. ? Orthostatic vitals with minimal change in blood pressure but did have significant change in heart rate, thus these were positive. ? Cardiology following. Holding home Lopressor and spironolactone. Monitor blood pressure, assistance with ambulation given concern for orthostatic hypotension. Cardiology recommending further GI evaluation for malabsorption syndrome. 2. Concern for malabsorption syndrome, suspected malnutrition ? BMI 17 on admit. Thin and quite ill-appearing on admission. Reports minimal p.o. intake over the last few days due to nausea/vomiting. ? Follows with GI outpatient for chronic iron deficiency anemia requiring IV iron transfusions as noted below. ? GI consulted, appreciate further recommendations. ? Nutrition consulted. 3. Chronic iron deficiency anemia ? Hemoglobin 10.6 on admit, down trended to 9.1 on hospital day 2 after IV fluidresuscitation. Hemoglobin was stable around 8.0 during previous hospitalizationabout 1 month ago. ? Has history of significant iron deficiency anemia of unclear origin, followingwith GI as noted above. Has history of requiring IV iron transfusions. ? Monitor CBC daily. GI consulted as noted above. 4. Mild hypokalemia, improved ? Potassium 3.2 on admit, presumed secondary to recent nausea/vomiting. Magnesium 2.0 on admit. Replete potassium as needed. 5. Rhinovirus infection ? Positive for rhinovirus on admission. Symptomatic management. 6. Anxiety and depression ? Continue home sertraline. DVT prophylaxis: Low risk, ambulate CODE STATUS: Full code, verified Expected disposition: Home, 1 to 2 days ? Patient was admitted under observation status. However, given her need for further cardiology management and GI evaluation as noted above, will be changed to inpatient status on 08/17. Total clinical time spent by myself addressing the patient's medical issues, reviewing all the data, and collaborating with patient's care team: 35 minutes. Charges/Coding Visit Charges Inpatient E&M: 85547 Subs Hosp L2 08/18/23 1723 <Electronically signed by Nitish Freire DO> Cosigner Signature (if applicable): CC: ~ Signed [facility] Work Phone: 1(121) 150-202503-08-2024 Consult note Author Chadd Head [facility] August 18, 2023 11:49am Note Date/Time August 18, 2023 11:4 9am [facility] Medical Records Department [address] [place] [address] Counseling Note - Pharmacy 08/18/23 1149 MR#: [id number] Acct: [id number] Name: CAROLA HARDING Rep #:[id number] : 1990 32 From: Chadd Head PCP: Dr. Jamari Zhang, DO Status:KERRIE Mazariegos JUDE Y Location: [address] Pharmacy Service has performed discharge medication reconciliation and counseling for this patient. The patient's discharge medication list was reviewed for discrepancies and discrepancies were resolved. The patient was counseled on the following discharge medications and changes in medications for homegoing were reviewed. The Reason for Use, instructions for use, and potential side effects were reviewed for all new medications. The patient's questions regarding all of their medications were answered. 1. Ondansetron 4 mg PO Q6H PRN nausea/vomiting The patient was able to verbally demonstrate an understanding of their dischargemedications. Medications at Discharge Home Medications ascorbic acid (vitamin C) 500 mg tablet (Vitamin C) 500 mg PO BID supplement 07/13/23 ferrous sulfate 142 mg (45 mg iron) tablet,extended release (Slow Release Iron) 142 mg PO BID iron deficiency 07/13/23 guaifenesin 1 tab PO Q6H PRN cold symptoms 07/13/23 sertraline 25 mg tablet 25 mg PO DAILY 07/13/23 metoprolol tartrate 25 mg tablet 12.5 mg (1/2 x 25 mg) PO BID 30 days #30 tabs 08/08/23 spironolactone 25 mg tablet 12.5 mg (1/2 x 25 mg) PO DAILY 30 days #15 tabs 08/08/23 ondansetron 4 mg disintegrating tablet 4 mg PO Q6H PRN nausea and vomiting #12 tabs 08/17/23 08/18/23 1149 <Electronically signed by Chadd funes> Date _ Chadd Keen Signature (if applicable): Date CC: ~ Signed [facility] Work Phone: 1(258) 608-253403-08-2024 Discharge summary Author Nitish Freire [facility] August 18, 2023 11:24am Note Date/Time August 18, 2023 11:[address] [facility] Medical Records Department [address] [place] [address] Instructions for Home/Discharge Instructions 08/18/23 1120 MR#: [id number] Acct: [id number] Name: CAROLA HARDING Rep #:[id number] : 1990 32 From: Nitish monge DO PCP: Dr. Jamari Zhang DO Status:KERRIE ROQUE Discharge Instructions Diet Discharge Diet: No restrictions Activity Discharge Activity: No Restrictions Weight Bearing Status: Full weight bearing Follow Up Care Test Results: Test results from this visit will be discussed in further detail at your follow- up appointment, if applicable. Discharge Plan Admission Admit Date/Time: 08/17/23 22:22 Primary Reason for Your Visit: nausea/vomiting and weakness Attending Provider: Nitish Freire Primary Care Provider: Jamari Zhang Consulting Providers: Amy Villalba Additional Instructions / Restrictions: You were found to be positive for a rhinovirus infection here. This is likely causing your nausea/vomiting and weakness. There is no specific medication treatment for rhinovirus, please take [id number] medications for upper respiratory symptoms as needed. Will prescribe a short course of Zofran for youas needed for your nausea and vomiting. Continue all other home medications as normal. Discharge Orders/Prescriptions Prescriptions: New ondansetron 4 mg tablet,disintegrating 4 mg PO Q6H PRN (Reason: nausea and vomiting) Qty: 12 0RF Continued metoprolol tartrate 25 mg tablet 12.5 mg PO BID 30 Days Qty: 30 1RF spironolactone 25 mg tablet 12.5 mg PO DAILY 30 Days Qty: 15 1RF ascorbic acid (vitamin C) [Vitamin C] 500 mg tablet 500 mg PO BID Slow Release Iron 142 mg (45 mg iron) tablet extended release 142 mg PO BID sertraline 25 mg tablet 25 mg PO DAILY guaifenesin [Mucinex] 1 tab PO Q6H PRN (Reason: cold symptoms) Discontinued ondansetron 4 mg tablet,disintegrating 4 mg PO Q8H PRN PRN (Reason: Nausea) Qty: 20 0RF Referrals / Follow Up: Jamari Zhang DO [Primary Care Provider] - Disposition Disposition (needs filled in before D/C Order can be placed): Home, Self Care 08/18/23 1124<Electronically signed by Nitish Freire DO>Nitish Freire DO CC: Dr. Amy Villalba MD; Dr. Jamari Zhang DO ~ Signed [facility] Work Phone: 1(250) 182-292703-08-2024 Discharge summary Author Latrell Martines [facility] August 18, 2023 12:20am Note Date/Time August 17, 2023 6:[address] [facility] Medical Records Department [address] [place] [address] Emergency Department Summary 08/17/23 MR#: [id number] Acct: [id number] Name: CAROLA HARDING Rep #:[id number] : 1990 32 From: Divine NUNES PCP: Dr. Jamari Zhang, DO Status:AD M JUDE Location: [facility] [id number] HPI <DES Jimenez - Last Filed: 08/17/23 22:26> History of Present Illness Chief Complaint: General Illness Narrative Narrative: 32-year-old female with PMH of anemia, myocarditis, cardiomyopathy states last night she developed diffuse abdominal cramping and nausea and vomiting. She is on day 4 of her menstrual cycle but this cramping seemed more intense than usual. When trying to drink she vomited again twice today. She feels weak and short of breath. No chest pain. She is having normal daily bowel movements. Nomelena hematochezia. No urinary symptoms. She states 1 month ago she was admitted for the flu/viral myocarditis and cardiomyopathy. After discharge she received 4 weeks of iron infusions. She does not drink or smoke. Abdominal surgeries include tubal ligation. PFSH <DES Jimenez - Last Filed: 08/17/23 22:26> [facility] Medical History Anxiety and depression Chronic anemia Clavicle fracture History of thyroid disorder Myocarditis Painful orthopaedic hardware Home Medications ascorbic acid (vitamin C) 500 mg tablet (Vitamin C) 500 mg PO BID supplement 07/13/23 [History Last Taken 07/10/23] ferrous sulfate 142 mg (45 mg iron) tablet,extended release (Slow Release Iron) 142 mg PO BID iron deficiency 07/13/23 [History Last Taken 07/10/23] guaifenesin 1 tab PO Q6H PRN cold symptoms 07/13/23 [History Last Taken 07/12/23] ondansetron 4 mg disintegrating tablet 4 mg PO Q8H PRN PRN Nausea #20 tabs 07/13/23 [Rx Last Taken Unknown] sertraline 25 mg tablet 25 mg PO DAILY 07/13/23 [History Last Taken 07/10/23] metoprolol tartrate 25 mg tablet 12.5 mg (1/2 x 25 mg) PO BID 30 days #30 tabs 08/08/23 [Rx Last Taken Unknown] spironolactone 25 mg tablet 12.5 mg (1/2 x 25 mg) PO DAILY 30 days #15 tabs 08/08/23 [Rx Last Taken Unknown] ondansetron 4 mg disintegrating tablet 4 mg PO Q6H PRN nausea and vomiting #12 tabs 08/17/23 [Rx Last Taken Unknown] Allergy/AdvReac Type Severity Reaction Status Date / Time amoxicillin [Amoxicillin] Allergy Hives Verified 08/17/23 16:59 cefixime [From Suprax] Allergy Hives Verified 08/17/23 16:59 lactulose Allergy Hives Verified 08/17/23 16:59 oxycodone HCl [From Percocet] AdvReac Abd Verified 08/17/23 16:59 cramps/diarrhea Family History (Updated 08/17/23 @ 23:[address] Amy Villalba MD) Mother Diabetes Heart disease Hypertension CVA (cerebral vascular accident) HLD (hyperlipidemia) Father Osteoarthritis Surgical History History of tonsillectomy and adenoidectomy Hx of tubal ligation Hx of tympanostomy tubes S/P ORIF (open reduction internal fixation) fracture Social History household members: spouse Smoking Status: Never smoker alcohol intake: never substance use type: does not use caffeine: Yes Type: carbonated beverages ROS <DES Jimenez - Last Filed: 08/17/23 22:26> ROS ED ROS Narrative Constitutional: Negative for fever, chills, malaise. CVS: Negative for chest pain. Respiratory: Positive for shortness of breath. GI: Positive for abdominal pain, nausea, vomiting. Negative for diarrhea. : Negative for dysuria, frequency. EXAM <DES Jimenez - Last Filed: 08/17/23 22:26> Physical Exam Narrative Exam Narrative: CONST: Patient sitting in no acute distress. EYES: Normal inspection. NECK: Normal inspection. RESP: No respiratory distress, CTAB. CVS: Regular rate and rhythm, no murmur, no gallop. ABD: Soft with mild generalized tenderness, no guarding or rebound, nondistended. SKIN: Color normal, no rash, warm, dry, intact. EXTREMITIES: Normal appearance, no pedal edema. NEURO: Oriented x4. PSYCH: Normal affect. Const Vital Signs: 08/17/23 16:59 08/17/23 18:03 08/17/23 18:07 Temperature 98.1 F Temperature Source Temporal Pulse Rate 104 H 84 Pulse Rate [Lying] Pulse Rate [Sitting (for 1 minute prior to obtaining)] Pulse Rate [Standing (for 1 minute prior to obtaining)] Respiratory Rate 16 15 Respiratory Pattern Normal Blood Pressure 79/57 L 86/61 L Blood Pressure [Lying] Blood Pressure [Sitting (for 1 minute prior to obtaining)] Blood Pressure [Standing (for 1 minute prior to obtaining)] Blood Pressure Mean 64 69 Blood Pressure Mean [Lying] Blood Pressure Mean [Sitting (for 1 minute prior to obtaining)] Blood Pressure Mean [Standing (for 1 minute prior to obtaining)] Pulse Ox 100 100 Oxygen Delivery Method Room Air Room Air 08/17/23 18:52 08/17/23 19:35 08/17/23 20:50 Temperature 99.1 F Temperature Source Oral Pulse Rate 89 87 Pulse Rate [Lying] 84 Pulse Rate [Sitting (for 1 minute prior to obtaining)] 82 Pulse Rate [Standing (for 1 minute prior to obtaining)] 94 Respiratory Rate 10 L 19 H Respiratory Pattern Blood Pressure 89/56 L 90/61 Blood Pressure [Lying] 88/62 L Blood Pressure [Sitting (for 1 minute prior to obtaining)] 87/58 L Blood Pressure [Standing (for 1 minute prior to obtaining)] 89/61 L Blood Pressure Mean 67 70 Blood Pressure Mean [Lying] 70 Blood Pressure Mean [Sitting (for 1 minute prior to obtaining)] 67 Blood Pressure Mean [Standing (for 1 minute prior to obtaining)] 70 Pulse Ox 100 100 Oxygen Delivery Method Room Air Room Air 08/17/23 21:00 08/17/23 21:44 Temperature 99.1 F Temperature Source Pulse Rate 69 84 Pulse Rate [Lying] Pulse Rate [Sitting (for 1 minute prior to obtaining)] Pulse Rate [Standing (for 1 minute prior to obtaining)] Respiratory Rate 16 18 Respiratory Pattern Blood Pressure 88/59 L 88/59 L Blood Pressure [Lying] Blood Pressure [Sitting (for 1 minute prior to obtaining)] Blood Pressure [Standing (for 1 minute prior to obtaining)] Blood Pressure Mean 68 68 Blood Pressure Mean [Lying] Blood Pressure Mean [Sitting (for 1 minute prior to obtaining)] Blood Pressure Mean [Standing (for 1 minute prior to obtaining)] Pulse Ox 96 100 Oxygen Delivery Method Room Air <Dr. Latrell Martines, DO - Last Filed: 08/17/23 23:54> Physical Exam Const Vital Signs: 08/17/23 16:59 08/17/23 18:03 08/17/23 18:07 Temperature 98.1 F Temperature Source Temporal Pulse Rate 104 H 84 Pulse Rate [Lying] Pulse Rate [Sitting (for 1 minute prior to obtaining)] Pulse Rate [Standing (for 1 minute prior to obtaining)] Respiratory Rate 16 15 Respiratory Pattern Normal Blood Pressure 79/57 L 86/61 L Blood Pressure [Lying] Blood Pressure [Sitting (for 1 minute prior to obtaining)] Blood Pressure [Standing (for 1 minute prior to obtaining)] Blood Pressure Mean 64 69 Blood Pressure Mean [Lying] Blood Pressure Mean [Sitting (for 1 minute prior to obtaining)] Blood Pressure Mean [Standing (for 1 minute prior to obtaining)] Pulse Ox 100 100 Oxygen Delivery Method Room Air Room Air 08/17/23 18:52 08/17/23 19:35 08/17/23 20:50 Temperature 99.1 F Temperature Source Oral Pulse Rate 89 87 Pulse Rate [Lying] 84 Pulse Rate [Sitting (for 1 minute prior to obtaining)] 82 Pulse Rate [Standing (for 1 minute prior to obtaining)] 94 Respiratory Rate 10 L 19 H Respiratory Pattern Blood Pressure 89/56 L 90/61 Blood Pressure [Lying] 88/62 L Blood Pressure [Sitting (for 1 minute prior to obtaining)] 87/58 L Blood Pressure [Standing (for 1 minute prior to obtaining)] 89/61 L Blood Pressure Mean 67 70 Blood Pressure Mean [Lying] 70 Blood Pressure Mean [Sitting (for 1 minute prior to obtaining)] 67 Blood Pressure Mean [Standing (for 1 minute prior to obtaining)] 70 Pulse Ox 100 100 Oxygen Delivery Method Room Air Room Air 08/17/23 21:00 08/17/23 21:44 Temperature 99.1 F Temperature Source Pulse Rate 69 84 Pulse Rate [Lying] Pulse Rate [Sitting (for 1 minute prior to obtaining)] Pulse Rate [Standing (for 1 minute prior to obtaining)] Respiratory Rate 16 18 Respiratory Pattern Blood Pressure 88/59 L 88/59 L Blood Pressure [Lying] Blood Pressure [Sitting (for 1 minute prior to obtaining)] Blood Pressure [Standing (for 1 minute prior to obtaining)] Blood Pressure Mean 68 68 Blood Pressure Mean [Lying] Blood Pressure Mean [Sitting (for 1 minute prior to obtaining)] Blood Pressure Mean [Standing (for 1 minute prior to obtaining)] Pulse Ox 96 100 Oxygen Delivery Method Room Air MDM <DES Jimenez - Last Filed: 08/17/23 22:26> [facility] Narrative Medical decision making narrative: History gathered from: Patient and spouse Differential: Gastroenteritis, pancreatitis, hepatitis, gallbladder etiology Patient presents with nausea and vomiting and generalized abdominal cramping that started last night. She appears well and nontoxic. BP is 79/57, HR 104, otherwise normal vital signs. She is very thin states her normal systolic bloodpressures in the 90s. She has mildly dry mucous membranes. Abdomen is soft with generalized tenderness. CBC shows improved anemia at 10.6. Pancytopenia from previous visit has resolved. Potassium slightly low at 3.2. Normal renal function, LFTs, and lipase. Urinalysis and test is negative. EKG is sinus rhythm and unchanged from previous. CXR shows no acute process. After IVfluids, Zofran, and Toradol patient's blood pressure improved to her baseline. Orthostatic vital signs are negative. However after ambulating patient and her are very concerned that she does not feel better or well enough to go home. Case was discussed with the hospitalist. Lab Data Attestation: I reviewed the patient's lab results. Labs: Laboratory Results - last 24 hr 08/17/23 08/17/23 08/17/23 17:35 17:35 17:35 WBC 5.0 RBC 4.16 L Hgb 10.6 L Hct 34.9 L MCV 83.9 MCH 25.5 L MCHC 30.4 L RDW Std Deviation 64.8 H RDW Coeff of Vandana 21.5 H Plt Count 168 MPV 9.4 Immature Gran % (Auto) 0.200 Neut % (Auto) 81.8 H Lymph % (Auto) 10.2 L Amelia % (Auto) 7.6 Eos % (Auto) 0.0 Baso % (Auto) 0.2 Absolute Neuts (auto) 4.1 Absolute Lymphs (auto) 0.51 L Nucleated RBC % 0 Differential Comment SCANNED Anisocytosis 2+ Microcytosis 1+ Macrocytosis 1+ Sodium 141 Potassium 3.2 L Chloride 108 H Carbon Dioxide 27.0 Anion Gap 6 BUN 9 Creatinine 0.60 Estim Creat Clear Calc 82.89 Est GFR (MDRD) Af Amer 147 Est GFR (MDRD) Non-Af 121 BUN/Creatinine Ratio 14.9 Glucose 93 Calcium 8.4 L Magnesium Total Bilirubin 0.30 0.30 Direct Bilirubin 0.10 AST 32 30 ALT 23 Alkaline Phosphatase Troponin I High Sens B-Natriuretic Peptide Total Protein Albumin Globulin Albumin/Globulin Ratio Lipase Procalcitonin Serum , Qual Urine Color Urine Clarity Urine pH Ur Specific Yermo Urine Protein Urine Glucose (UA) Urine Ketones Urine Occult Blood Urine Nitrite Urine Bilirubin Urine Urobilinogen Ur Leukocyte Esterase Urine RBC Urine WBC Ur Squamous Epith Cells Urine Bacteria Urine Mucus 08/17/23 08/17/23 08/17/23 17:35 17:35 17:35 WBC RBC Hgb Hct MCV MCH MCHC RDW Std Deviation RDW Coeff of Vandana Plt Count MPV Immature Gran % (Auto) Neut % (Auto) Lymph % (Auto) Amelia % (Auto) Eos % (Auto) Baso % (Auto) Absolute Neuts (auto) Absolute Lymphs (auto) Nucleated RBC % Differential Comment Anisocytosis Microcytosis Macrocytosis Sodium Potassium Chloride Carbon Dioxide Anion Gap BUN Creatinine Estim Creat Clear Calc Est GFR (MDRD) Af Amer Est GFR (MDRD) Non-Af BUN/Creatinine Ratio Glucose Calcium Magnesium Total Bilirubin Direct Bilirubin AST ALT 23 Alkaline Phosphatase 76 75 Troponin I High Sens B-Natriuretic Peptide 4.7 Total Protein 6.9 6.9 Albumin 3.4 Globulin Albumin/Globulin Ratio Lipase Procalcitonin Serum , Qual Urine Color Urine Clarity Urine pH Ur Specific Yermo Urine Protein Urine Glucose (UA) Urine Ketones Urine Occult Blood Urine Nitrite Urine Bilirubin Urine Urobilinogen Ur Leukocyte Esterase Urine RBC Urine WBC Ur Squamous Epith Cells Urine Bacteria Urine Mucus 08/17/23 08/17/23 08/17/23 17:35 17:35 19:40 WBC RBC Hgb Hct MCV MCH MCHC RDW Std Deviation RDW Coeff of Vandana Plt Count MPV Immature Gran % (Auto) Neut % (Auto) Lymph % (Auto) Amelia % (Auto) Eos % (Auto) Baso % (Auto) Absolute Neuts (auto) Absolute Lymphs (auto) Nucleated RBC % Differential Comment Anisocytosis Microcytosis Macrocytosis Sodium Potassium Chloride Carbon Dioxide Anion Gap BUN Creatinine Estim Creat Clear Calc Est GFR (MDRD) Af Amer Est GFR (MDRD) Non-Af BUN/Creatinine Ratio Glucose Calcium Magnesium Total Bilirubin Direct Bilirubin AST ALT Alkaline Phosphatase Troponin I High Sens B-Natriuretic Peptide Total Protein Albumin 3.4 Globulin 3.5 3.5 Albumin/Globulin Ratio 1.0 Lipase 20 Procalcitonin < 0.04 Serum , Qual NEGATIVE Urine Color Yellow Urine Clarity Clear Urine pH 8.0 Ur Specific Yermo 1.010 Urine Protein Negative Urine Glucose (UA) Normal Urine Ketones 5 H Urine Occult Blood 250 H Urine Nitrite Negative Urine Bilirubin Negative Urine Urobilinogen 1 H Ur Leukocyte Esterase 25 H Urine RBC 0-5 SEEN Urine WBC 0-5 SEEN Ur Squamous Epith Cells 0-5 SEEN Urine Bacteria 0 SEEN Urine Mucus 1+ 08/17/23 21:37 WBC RBC Hgb Hct MCV MCH MCHC RDW Std Deviation RDW Coeff of Vandana Plt Count MPV Immature Gran % (Auto) Neut % (Auto) Lymph % (Auto) Amelia % (Auto) Eos % (Auto) Baso % (Auto) Absolute Neuts (auto) Absolute Lymphs (auto) Nucleated RBC % Differential Comment Anisocytosis Microcytosis Macrocytosis Sodium Potassium Chloride Carbon Dioxide Anion Gap BUN Creatinine Estim Creat Clear Calc Est GFR (MDRD) Af Amer Est GFR (MDRD) Non-Af BUN/Creatinine Ratio Glucose Calcium Magnesium 2.0 Total Bilirubin Direct Bilirubin AST ALT Alkaline Phosphatase Troponin I High Sens 16 B-Natriuretic Peptide Total Protein Albumin Globulin Albumin/Globulin Ratio Lipase Procalcitonin Serum , Qual Urine Color Urine Clarity Urine pH Ur Specific Yermo Urine Protein Urine Glucose (UA) Urine Ketones Urine Occult Blood Urine Nitrite Urine Bilirubin Urine Urobilinogen Ur Leukocyte Esterase Urine RBC Urine WBC Ur Squamous Epith Cells Urine Bacteria Urine Mucus Radiography Diagnostic Testing: Clinical Impression(s) from Imaging Studies Chest X-Ray 08/17/23 18:50 IMPRESSION: No acute cardiopulmonary pathology Electronically Signed: Sherif Abdullahi MD at 19:20 EST Reading Location ID and State: [facility] / [place] Tel , Service support , <Dr. Latrell Martines, DO - Last Filed: 08/17/23 23:54> [facility] Narrative Medical decision making narrative: History gathered from: Patient and spouse Differential: Gastroenteritis, pancreatitis, hepatitis, gallbladder etiology Patient presents with nausea and vomiting and generalized abdominal cramping that started last night. She appears well and nontoxic. BP is 79/57, HR 104, otherwise normal vital signs. She is very thin states her normal systolic bloodpressures in the 90s. She has mildly dry mucous membranes. Abdomen is soft with generalized tenderness. CBC shows improved anemia at 10.6. Pancytopenia from previous visit has resolved. Potassium slightly low at 3.2. Normal renal function, LFTs, and lipase. Urinalysis and test is negative. EKG is sinus rhythm and unchanged from previous. CXR shows no acute process. After IVfluids, Zofran, and Toradol patient's blood pressure improved to her baseline. Orthostatic vital signs are negative. However after ambulating patient and her are very concerned that she does not feel better or well enough to go home. Case was discussed with the hospitalist. I have personally performed a face to face assessment of the patient and have reviewed the ARTURO Note. I performed a substantive portion of the visit including all aspects of the following. My leal findings include: History is 32-year-old female with recent influenza cardiomyopathy presenting tot emergency room with dyspnea and vomiting. Reportedly the patient had an ejection fraction of 35% beginning of July. She followed up with cardiology. She chronically has low blood pressure. She went to [facility] today with the exertion began to have increased shortness of breath. States she was very short of breath and had blood pressure 79/57 when they walked from their car to triage. Patient did have some vomiting. He is upset that nobody did a stress test on the patient while she was in the hospital. He does understand why there has not been a recent echocardiogram and follow-up. There is a echocardiogram scheduled in October. Patient at rest her breathing is improved. She is not having leg swelling. No cough. No diarrhea. Exam is very thin 32-year-old female sitting comfortably in bed in no acute distress. I do not appreciate any large murmur. No Rales. No lower extremity edema. Medical Decison Making EKG and blood work fairly unremarkable. Hemoglobin 10.6. BNP normal. Manage interpretation of the chest x-ray is no acute process. Patient's not orthostatic. She is able to ambulate in the hallway. states that he would like her admitted because something is not right. He is concerned about her ability to care for the 5 children at home while he goes to work. I offered admission and he states he would rather just take her home and I asked the patient what she would like to do and she would like to stay. I spoke with the hospitalist who will be admitting. History & Record Review Discussion w/independent historian: Patient and Family Lab Data Labs: Laboratory Results - last 24 hr 08/17/23 08/17/23 08/17/23 17:35 17:35 17:35 WBC 5.0 RBC 4.16 L Hgb 10.6 L Hct 34.9 L MCV 83.9 MCH 25.5 L MCHC 30.4 L RDW Std Deviation 64.8 H RDW Coeff of Vandana 21.5 H Plt Count 168 MPV 9.4 Immature Gran % (Auto) 0.200 Neut % (Auto) 81.8 H Lymph % (Auto) 10.2 L Amelia % (Auto) 7.6 Eos % (Auto) 0.0 Baso % (Auto) 0.2 Absolute Neuts (auto) 4.1 Absolute Lymphs (auto) 0.51 L Nucleated RBC % 0 Differential Comment SCANNED Anisocytosis 2+ Microcytosis 1+ Macrocytosis 1+ Sodium 141 Potassium 3.2 L Chloride 108 H Carbon Dioxide 27.0 Anion Gap 6 BUN 9 Creatinine 0.60 Estim Creat Clear Calc 82.89 Est GFR (MDRD) Af Amer 147 Est GFR (MDRD) Non-Af 121 BUN/Creatinine Ratio 14.9 Glucose 93 Calcium 8.4 L Magnesium Total Bilirubin 0.30 0.30 Direct Bilirubin 0.10 AST 32 30 ALT 23 Alkaline Phosphatase Troponin I High Sens B-Natriuretic Peptide Total Protein Albumin Globulin Albumin/Globulin Ratio Lipase Procalcitonin Serum , Qual Urine Color Urine Clarity Urine pH Ur Specific Yermo Urine Protein Urine Glucose (UA) Urine Ketones Urine Occult Blood Urine Nitrite Urine Bilirubin Urine Urobilinogen Ur Leukocyte Esterase Urine RBC Urine WBC Ur Squamous Epith Cells Urine Bacteria Urine Mucus 08/17/23 08/17/23 08/17/23 17:35 17:35 17:35 WBC RBC Hgb Hct MCV MCH MCHC RDW Std Deviation RDW Coeff of Vandana Plt Count MPV Immature Gran % (Auto) Neut % (Auto) Lymph % (Auto) Amelia % (Auto) Eos % (Auto) Baso % (Auto) Absolute Neuts (auto) Absolute Lymphs (auto) Nucleated RBC % Differential Comment Anisocytosis Microcytosis Macrocytosis Sodium Potassium Chloride Carbon Dioxide Anion Gap BUN Creatinine Estim Creat Clear Calc Est GFR (MDRD) Af Amer Est GFR (MDRD) Non-Af BUN/Creatinine Ratio Glucose Calcium Magnesium Total Bilirubin Direct Bilirubin AST ALT 23 Alkaline Phosphatase 76 75 Troponin I High Sens B-Natriuretic Peptide 4.7 Total Protein 6.9 6.9 Albumin 3.4 Globulin Albumin/Globulin Ratio Lipase Procalcitonin Serum , Qual Urine Color Urine Clarity Urine pH Ur Specific Yermo Urine Protein Urine Glucose (UA) Urine Ketones Urine Occult Blood Urine Nitrite Urine Bilirubin Urine Urobilinogen Ur Leukocyte Esterase Urine RBC Urine WBC Ur Squamous Epith Cells Urine Bacteria Urine Mucus 08/17/23 08/17/23 08/17/23 17:35 17:35 19:40 WBC RBC Hgb Hct MCV MCH MCHC RDW Std Deviation RDW Coeff of Vandana Plt Count MPV Immature Gran % (Auto) Neut % (Auto) Lymph % (Auto) Amelia % (Auto) Eos % (Auto) Baso % (Auto) Absolute Neuts (auto) Absolute Lymphs (auto) Nucleated RBC % Differential Comment Anisocytosis Microcytosis Macrocytosis Sodium Potassium Chloride Carbon Dioxide Anion Gap BUN Creatinine Estim Creat Clear Calc Est GFR (MDRD) Af Amer Est GFR (MDRD) Non-Af BUN/Creatinine Ratio Glucose Calcium Magnesium Total Bilirubin Direct Bilirubin AST ALT Alkaline Phosphatase Troponin I High Sens B-Natriuretic Peptide Total Protein Albumin 3.4 Globulin 3.5 3.5 Albumin/Globulin Ratio 1.0 Lipase 20 Procalcitonin < 0.04 Serum , Qual NEGATIVE Urine Color Yellow Urine Clarity Clear Urine pH 8.0 Ur Specific Yermo 1.010 Urine Protein Negative Urine Glucose (UA) Normal Urine Ketones 5 H Urine Occult Blood 250 H Urine Nitrite Negative Urine Bilirubin Negative Urine Urobilinogen 1 H Ur Leukocyte Esterase 25 H Urine RBC 0-5 SEEN Urine WBC 0-5 SEEN Ur Squamous Epith Cells 0-5 SEEN Urine Bacteria 0 SEEN Urine Mucus 1+ 08/17/23 21:37 WBC RBC Hgb Hct MCV MCH MCHC RDW Std Deviation RDW Coeff of Vandana Plt Count MPV Immature Gran % (Auto) Neut % (Auto) Lymph % (Auto) Amelia % (Auto) Eos % (Auto) Baso % (Auto) Absolute Neuts (auto) Absolute Lymphs (auto) Nucleated RBC % Differential Comment Anisocytosis Microcytosis Macrocytosis Sodium Potassium Chloride Carbon Dioxide Anion Gap BUN Creatinine Estim Creat Clear Calc Est GFR (MDRD) Af Amer Est GFR (MDRD) Non-Af BUN/Creatinine Ratio Glucose Calcium Magnesium 2.0 Total Bilirubin Direct Bilirubin AST ALT Alkaline Phosphatase Troponin I High Sens 16 B-Natriuretic Peptide Total Protein Albumin Globulin Albumin/Globulin Ratio Lipase Procalcitonin Serum , Qual Urine Color Urine Clarity Urine pH Ur Specific Yermo Urine Protein Urine Glucose (UA) Urine Ketones Urine Occult Blood Urine Nitrite Urine Bilirubin Urine Urobilinogen Ur Leukocyte Esterase Urine RBC Urine WBC Ur Squamous Epith Cells Urine Bacteria Urine Mucus Radiography Diagnostic Testing: Clinical Impression(s) from Imaging Studies Chest X-Ray 08/17/23 18:50 IMPRESSION: No acute cardiopulmonary pathology Electronically Signed: Sherif Abdullahi MD at 19:20 EST Reading Location ID and State: [address] [place] [address] Tel , Service support , Discharge Plan Dx/Rx/DC Orders Clinical Impression: Nausea and vomiting, Abdominal pain, Dehydration, Acute hypokalemia, Chronic anemia Disposition Disposition: Acute Care Hospital [facility] Discharge Date/Time: 08/17/23 23:39 What to do if you have Problems For any increased pain, shortness of breath, bleeding, nausea or vomiting, chestpain, or any unexpected problems, contact your Primary Care Provider. Call [facility] ([phone]) or report to the closest Emergency Room. Call 911 if necessary. 08/17/236 <Electronically signed by Divine NUNES> Cosigner Signature (if applicable): 08/18/23 0020 <Electronically signed by Latrell Martines DO> CC: Dr. Jamari Zhang, DO ~ Signed [facility] Work Phone: [phone] 172-557303-08-2024 History and physical note Author Amy Deejay [facility] August 17, 2023 11:16pm Note Date/Time August 17, 2023 9:41 pm [facility] Medical Records Department [address] [place] [address] H&P Exam - Hospitalist 08/17/239 MR#: [id number] Acct: [id number] Name: CAROLA HARDING Rep #:[id number] : 1990 32 From: Amy Villalba MD PCP: Dr. Jamari Zhang, Status:KERRIE ROQUE Location: [facility] [id number] HPI - General General Date of Admission: 08/17/23 Date of Service: 08/17/23 Chief Complaint: Abdominal cramping, N/V. HPI Narrative The patient is a 32 y/o F w/ PMHx: Recent 07/2022 Acute 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 [place] had [place] errands and go to doctors visits and following this became more fatiguedand weak. She denies dyspnea, orthopnea, weight gain, chest pain. She denies anyrecent ill contacts in the home. Workup in the ED included T98.1, heart rate 104, BP 79/57, respiratory rate 16, on high percent on room air, most recent vital signs heart rate 69, BP 88/59, respiratory rate 16, 96% on room air, orthostatics not marked, review of previous vital signs during prior presentations with chronically low blood pressure evident, CBC with WBC 5.0, hemoglobin 10.6, MCV 83.9, platelet 168 with lymphopenia, CMP with potassium 3.2, chloride 108, hepatic profile unremarkable, lipase 20, serum negative, urinalysis with ketone 5, occult blood 250, negative nitrite, leukocyte Estrace 25 with no obvious evidence of UTI nor any marked urine RBCs of note, chest x-ray with no acute cardiopulmonary findings, EKG with SR withoutacute evidence of ischemia, magnesium 2.0, troponin 16, BNP 4.7. In the ED patient ministered potassium 40 mill equivalent p.o. x 1, Zofran 4 mg IV x 1, Toradol 50 mg IV x 1 as well as 1 L normal saline bolus. [facility] Medical History (Updated 08/17/23 @ 23:[address] mAy Villalba MD) Anxiety and depression Chronic anemia Clavicle fracture History of thyroid disorder Myocarditis Painful orthopaedic hardware Home Medications ascorbic acid (vitamin C) 500 mg tablet (Vitamin C) 500 mg PO BID supplement 07/13/23 [History Last Taken 07/10/23] ferrous sulfate 142 mg (45 mg iron) tablet,extended release (Slow Release Iron) 142 mg PO BID iron deficiency 07/13/23 [History Last Taken 07/10/23] guaifenesin 1 tab PO Q6H PRN cold symptoms 07/13/23 [History Last Taken 07/12/23] ondansetron 4 mg disintegrating tablet 4 mg PO Q8H PRN PRN Nausea #20 tabs 07/13/23 [Rx Last Taken Unknown] sertraline 25 mg tablet 25 mg PO DAILY 07/13/23 [History Last Taken 07/10/23] metoprolol tartrate 25 mg tablet 12.5 mg (1/2 x 25 mg) PO BID 30 days #30 tabs 08/08/23 [Rx Last Taken Unknown] spironolactone 25 mg tablet 12.5 mg (1/2 x 25 mg) PO DAILY 30 days #15 tabs 08/08/23 [Rx Last Taken Unknown] ondansetron 4 mg disintegrating tablet 4 mg PO Q6H PRN nausea and vomiting #12 tabs 08/17/23 [Rx Last Taken Unknown] Allergy/AdvReac Type Severity Reaction Status Date / Time amoxicillin [Amoxicillin] Allergy Hives Verified 08/17/23 16:59 cefixime [From Suprax] Allergy Hives Verified 08/17/23 16:59 lactulose Allergy Hives Verified 08/17/23 16:59 oxycodone HCl [From Percocet] AdvReac Abd Verified 08/17/23 16:59 cramps/diarrhea Family History (Updated 08/17/23 @ 23:[address] Amy Villalba MD) Mother Diabetes Heart disease Hypertension CVA (cerebral vascular accident) HLD (hyperlipidemia) Father Osteoarthritis Surgical History (Updated 08/17/23 @ 23:[address] Amy Villalba MD) History of tonsillectomy and adenoidectomy Hx of tubal ligation Hx of tympanostomy tubes S/P ORIF (open reduction internal fixation) fracture Social History household members: spouse Smoking Status: Never smoker alcohol intake: never substance use type: does not use caffeine: Yes Type: carbonated beverages ROS ROS Narrative Admission Review of Systems: CONSTITUTIONAL: No weight loss, fever, chills, + weakness or fatigue. HEENT: Eyes: No visual loss, blurred vision, double vision or yellow sclerae. Ears, Nose, Throat: No hearing loss, sneezing, congestion, runny nose or sore throat. SKIN: No rash or itching, lesions, wounds. CARDIOVASCULAR: No chest pain, chest pressure or chest discomfort, palpitations,edema, orthopnea, syncopal events. RESPIRATORY: No shortness of breath, cough or sputum, wheezing, hemoptysis. GASTROINTESTINAL: + anorexia, nausea, vomiting, abdominal cramping. No diarrhea,melena, BRBPR. GENITOURINARY: No dysuria, frequency, urgency or retention. NEUROLOGICAL: No headache, dizziness, syncope, paralysis, ataxia, numbness or tingling in the extremities, focal weakness, change in bowel or bladder control,seizure. MUSCULOSKELETAL: + muscle, back pain, joint pain or stiffness. HEMATOLOGIC: + anemia. No bleeding or easy bruising. LYMPHATICS: No enlarged nodes. No history of splenectomy. PSYCHIATRIC: + history of depression and anxiety. ENDOCRINOLOGIC: No reports of sweating, cold or heat intolerance. No polyuria orpolydipsia. ALLERGIES: No history of asthma, hives, eczema or rhinitis. Vital Signs Vital Signs Vital Signs: 08/17/23 16:59 08/17/23 18:03 08/17/23 18:07 Temperature 98.1 F Temperature Source Temporal Pulse Rate 104 H 84 Pulse Rate [Lying] Pulse Rate [Sitting (for 1 minute prior to obtaining)] Pulse Rate [Standing (for 1 minute prior to obtaining)] Respiratory Rate 16 15 Respiratory Pattern Normal Blood Pressure 79/57 L 86/61 L Blood Pressure [Lying] Blood Pressure [Sitting (for 1 minute prior to obtaining)] Blood Pressure [Standing (for 1 minute prior to obtaining)] Blood Pressure Mean 64 69 Blood Pressure Mean [Lying] Blood Pressure Mean [Sitting (for 1 minute prior to obtaining)] Blood Pressure Mean [Standing (for 1 minute prior to obtaining)] Pulse Ox 100 100 Oxygen Delivery Method Room Air Room Air 08/17/23 18:52 08/17/23 19:35 08/17/23 20:50 Temperature 99.1 F Temperature Source Oral Pulse Rate 89 87 Pulse Rate [Lying] 84 Pulse Rate [Sitting (for 1 minute prior to obtaining)] 82 Pulse Rate [Standing (for 1 minute prior to obtaining)] 94 Respiratory Rate 10 L 19 H Respiratory Pattern Blood Pressure 89/56 L 90/61 Blood Pressure [Lying] 88/62 L Blood Pressure [Sitting (for 1 minute prior to obtaining)] 87/58 L Blood Pressure [Standing (for 1 minute prior to obtaining)] 89/61 L Blood Pressure Mean 67 70 Blood Pressure Mean [Lying] 70 Blood Pressure Mean [Sitting (for 1 minute prior to obtaining)] 67 Blood Pressure Mean [Standing (for 1 minute prior to obtaining)] 70 Pulse Ox 100 100 Oxygen Delivery Method Room Air Room Air 08/17/23 21:00 Temperature Temperature Source Pulse Rate 69 Pulse Rate [Lying] Pulse Rate [Sitting (for 1 minute prior to obtaining)] Pulse Rate [Standing (for 1 minute prior to obtaining)] Respiratory Rate 16 Respiratory Pattern Blood Pressure 88/59 L Blood Pressure [Lying] Blood Pressure [Sitting (for 1 minute prior to obtaining)] Blood Pressure [Standing (for 1 minute prior to obtaining)] Blood Pressure Mean 68 Blood Pressure Mean [Lying] Blood Pressure Mean [Sitting (for 1 minute prior to obtaining)] Blood Pressure Mean [Standing (for 1 minute prior to obtaining)] Pulse Ox 96 Oxygen Delivery Method Room Air Weight Weight: 86 lb Body Mass Index (BMI) 16.2 Physical Exam Narrative Physical Examination: General: Awake, alert, oriented x 3 and cooperative, seated upright in the ED bed in no apparent distress, fatigued appearing. Skin: Normal color, normal turgor, no icterus, no cyanosis. HEENT: AT/NC, EOMI, PERRLA, dry MM, no carotid bruits or JVD noted. Lungs: CTA bilaterally, moderate effort, mild decrease BL bases, no rales, ronchi or wheezing. Heart: Regular rate and rhythm; no gallop, rub audible. Abdomen: Soft, thin habitus, NTTP, ND, hyperactive BS, no appreciated HSM. Extremities: No cyanosis, clubbing, or edema. Neurological: Patient awake, alert, oriented as noted, cognitive function intact; pupils equally reactive to light and accommodation, cranial nerves II-XIIgrossly normal, moving all 4 extremities, no focal deficits, strength improved, mildly to moderately global decrease secondary to presentation complaints. Psychiatric: Affect appears flat, fatigued, no acute evidence of depressive or anxiety feelings but does have underlying history. Results Lab / Micro Data 08/17/23 17:35 08/17/23 17:35 Labs: Laboratory Results - last 24 hr 08/17/23 17:35: WBC 5.0, RBC 4.16 L, Hgb 10.6 L, Hct 34.9 L, MCV 83.9, MCH 25.5 L, MCHC 30.4 L, RDW Std Deviation 64.8 H, RDW Coeff of Vandana 21.5 H, Plt Count 168, MPV 9.4, Immature Gran % (Auto) 0.200, Neut % (Auto) 81.8 H, Lymph % (Auto)10.2 L, Amelia % (Auto) 7.6, Eos % (Auto) 0.0, Baso % (Auto) 0.2, Absolute Neuts (auto) 4.1, Absolute Lymphs (auto) 0.51 L, Nucleated RBC % 0, Differential Comment SCANNED, Anisocytosis 2+, Microcytosis 1+, Macrocytosis 1+, Sodium 141, Potassium 3.2 L, Chloride 108 H, Carbon Dioxide 27.0, Anion Gap 6, BUN 9, Creatinine 0.60, Estim Creat Clear Calc 82.89, Est GFR (MDRD) Af Amer 147, Est GFR (MDRD) Non-Af 121, BUN/Creatinine Ratio 14.9, Glucose 93, Calcium 8.4 L, Total Bilirubin 0.30 08/17/23 17:35: Total Bilirubin 0.30, Direct Bilirubin 0.10, AST 32 08/17/23 17:35: AST 30, ALT 23 08/17/23 17:35: ALT 23, Alkaline Phosphatase 76 08/17/23 17:35: Alkaline Phosphatase 75, Total Protein 6.9 08/17/23 17:35: Total Protein 6.9, Albumin 3.4 08/17/23 17:35: Albumin 3.4, Globulin 3.5 08/17/23 17:35: Globulin 3.5, Albumin/Globulin Ratio 1.0, Lipase 20, Serum , Qual NEGATIVE 08/17/23 19:40: Urine Color Yellow, Urine Clarity Clear, Urine pH 8.0, Ur Specific Yermo 1.010, Urine Protein Negative, Urine Glucose (UA) Normal, UrineKetones 5 H, Urine Occult Blood 250 H, Urine Nitrite Negative, Urine Bilirubin Negative, Urine Urobilinogen 1 H, Ur Leukocyte Esterase 25 H, Urine RBC 0-5 SEEN, Urine WBC 0-5 SEEN, Ur Squamous Epith Cells 0-5 SEEN, Urine Bacteria 0 SEEN, Urine Mucus 1+ Imaging Radiology Impression Chest X-Ray 08/17/23 18:50 IMPRESSION: No acute cardiopulmonary pathology Electronically Signed: Sherif Abdullahi MD at 19:20 EST Reading Location ID and State: [facility] / [place] Tel , Service support , Assessment & Plan Assessment/Plan (1) Nausea and vomiting: PLAN: Plan The patient is a 32 y/o F w/ PMHx: Recent 07/2022 Acute 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 #1. N/V, abdominal cramping, questionable gastroenteritis versus viral syndromewith associated acute on chronic hypotension: Will admit to medical surgical floor, will continue hydration, given improvement in the ED of both nausea and no further emesis will allow broaden diet, if there is any onset of diarrhea will assess stools, will obtain full respiratory viral panel, will obtain procalcitonin although suspect this could certainly be a viral etiology, will add twice daily low-dose Protonix, will add scheduled bentyl, will have anti-emetics, pain regimen PRN. #2. Hypokalemia: Admission K+ 3.2, magnesium 2.0, supplementation given, repeatlevel in AM. #3. 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 Vogel, had been maintained on spironolactone and metoprolol with blood pressures running 85-95, current presentation with GI losses thus we will temporally hold these medications, add back once appropriate. Per discussion with patient planned upcoming repeat echocardiogram later in the month. #4. Chronic anemia/iron deficiency anemia complicated by suspected underlying malabsorption syndrome: Patient following with gastroenterology outpatient for planned ongoing evaluation of anemia with IV iron transfusions in the ambulatorysetting, admission hemoglobin 10.6, MCV 83.9, will continue to trend, continue oral iron supplementation. #5. Anxiety and depression: We will continue patient home sertraline regimen. #6. DVT prophylaxis: Low risk for type admission, encourage ambulation is improving. Charges/Coding Visit Charges Inpatient E&M: 10757 Init Hosp L2 08/17/23 2316 <Electronically signed by Amy Villalba MD> Cosigner Signature (if applicable): CC: Dr. Amy Villalba MD; Dr. Jamari Zhang, DO~ Signed [facility] Work Phone: [phone]) 711-978303-07-2024 History and physical note Author [facility] August 17, 2023 11:16pm Note Date/Time August 17, 2023 9:[address] [facility] Medical Records Department [address] [place] [address] H&P Exam - Hospitalist 08/17/23 2139 MR#: [id number] Acct: [id number] Name: CAROLA HARDING Rep #:[id number] : 1990 32 From: Amy Villalba MD PCP: Dr. Jamari Zhang, Status:[facility] Mazariegos [facility] Location: [place] [id number] HPI - General General Date of Admission: 08/17/23 Date of Service: 08/17/23 Chief Complaint: Abdominal cramping, N/V. HPI Narrative The patient is a 32 y/o F w/ PMHx: Recent 07/2022 Acute 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 She had [place] running errands and go to doctors visits and following this became more fatiguedand weak. She denies dyspnea, orthopnea, weight gain, chest pain. She denies anyrecent ill contacts in the home. Workup in the ED included T98.1, heart rate 104, BP 79/57, respiratory rate 16, on high percent on room air, most recent vital signs heart rate 69, BP 88/59, respiratory rate 16, 96% on room air, orthostatics not marked, review of previous vital signs during prior presentations with chronically low blood pressure evident, CBC with WBC 5.0, hemoglobin 10.6, MCV 83.9, platelet 168 with lymphopenia, CMP with potassium 3.2, chloride 108, hepatic profile unremarkable, lipase 20, serum negative, urinalysis with ketone 5, occult blood 250, negative nitrite, leukocyte Estrace 25 with no obvious evidence of UTI nor any marked urine RBCs of note, chest x-ray with no acute cardiopulmonary findings, EKG with SR withoutacute evidence of ischemia, magnesium 2.0, troponin 16, BNP 4.7. In the ED patient ministered potassium 40 mill equivalent p.o. x 1, Zofran 4 mg IV x 1, Toradol 50 mg IV x 1 as well as 1 L normal saline bolus. [facility] Medical History (Updated 08/17/23 @ 23:[address] Amy Villalba MD) Anxiety and depression Chronic anemia Clavicle fracture History of thyroid disorder Myocarditis Painful orthopaedic hardware Home Medications ascorbic acid (vitamin C) 500 mg tablet (Vitamin C) 500 mg PO BID supplement 07/13/23 [History Last Taken 07/10/23] ferrous sulfate 142 mg (45 mg iron) tablet,extended release (Slow Release Iron) 142 mg PO BID iron deficiency 07/13/23 [History Last Taken 07/10/23] guaifenesin 1 tab PO Q6H PRN cold symptoms 07/13/23 [History Last Taken 07/12/23] ondansetron 4 mg disintegrating tablet 4 mg PO Q8H PRN PRN Nausea #20 tabs 07/13/23 [Rx Last Taken Unknown] sertraline 25 mg tablet 25 mg PO DAILY 07/13/23 [History Last Taken 07/10/23] metoprolol tartrate 25 mg tablet 12.5 mg (1/2 x 25 mg) PO BID 30 days #30 tabs 08/08/23 [Rx Last Taken Unknown] spironolactone 25 mg tablet 12.5 mg (1/2 x 25 mg) PO DAILY 30 days #15 tabs 08/08/23 [Rx Last Taken Unknown] ondansetron 4 mg disintegrating tablet 4 mg PO Q6H PRN nausea and vomiting #12 tabs 08/17/23 [Rx Last Taken Unknown] Allergy/AdvReac Type Severity Reaction Status Date / Time amoxicillin [Amoxicillin] Allergy Hives Verified 08/17/23 16:59 cefixime [From Suprax] Allergy Hives Verified 08/17/23 16:59 lactulose Allergy Hives Verified 08/17/23 16:59 oxycodone HCl [From Percocet] AdvReac Abd Verified 08/17/23 16:59 cramps/diarrhea Family History (Updated 08/17/23 @ 23:[address] Amy Villalba MD) Mother Diabetes Heart disease Hypertension CVA (cerebral vascular accident) HLD (hyperlipidemia) Father Osteoarthritis Surgical History (Updated 08/17/23 @ 23:[address] Amy Villalba MD) History of tonsillectomy and adenoidectomy Hx of tubal ligation Hx of tympanostomy tubes S/P ORIF (open reduction internal fixation) fracture Social History household members: spouse Smoking Status: Never smoker alcohol intake: never substance use type: does not use caffeine: Yes Type: carbonated beverages ROS ROS Narrative Admission Review of Systems: CONSTITUTIONAL: No weight loss, fever, chills, + weakness or fatigue. HEENT: Eyes: No visual loss, blurred vision, double vision or yellow sclerae. Ears, Nose, Throat: No hearing loss, sneezing, congestion, runny nose or sore throat. SKIN: No rash or itching, lesions, wounds. CARDIOVASCULAR: No chest pain, chest pressure or chest discomfort, palpitations,edema, orthopnea, syncopal events. RESPIRATORY: No shortness of breath, cough or sputum, wheezing, hemoptysis. GASTROINTESTINAL: + anorexia, nausea, vomiting, abdominal cramping. No diarrhea,melena, BRBPR. GENITOURINARY: No dysuria, frequency, urgency or retention. NEUROLOGICAL: No headache, dizziness, syncope, paralysis, ataxia, numbness or tingling in the extremities, focal weakness, change in bowel or bladder control,seizure. MUSCULOSKELETAL: + muscle, back pain, joint pain or stiffness. HEMATOLOGIC: + anemia. No bleeding or easy bruising. LYMPHATICS: No enlarged nodes. No history of splenectomy. PSYCHIATRIC: + history of depression and anxiety. ENDOCRINOLOGIC: No reports of sweating, cold or heat intolerance. No polyuria orpolydipsia. ALLERGIES: No history of asthma, hives, eczema or rhinitis. Vital Signs Vital Signs Vital Signs: 08/17/23 16:59 08/17/23 18:03 08/17/23 18:07 Temperature 98.1 F Temperature Source Temporal Pulse Rate 104 H 84 Pulse Rate [Lying] Pulse Rate [Sitting (for 1 minute prior to obtaining)] Pulse Rate [Standing (for 1 minute prior to obtaining)] Respiratory Rate 16 15 Respiratory Pattern Normal Blood Pressure 79/57 L 86/61 L Blood Pressure [Lying] Blood Pressure [Sitting (for 1 minute prior to obtaining)] Blood Pressure [Standing (for 1 minute prior to obtaining)] Blood Pressure Mean 64 69 Blood Pressure Mean [Lying] Blood Pressure Mean [Sitting (for 1 minute prior to obtaining)] Blood Pressure Mean [Standing (for 1 minute prior to obtaining)] Pulse Ox 100 100 Oxygen Delivery Method Room Air Room Air 08/17/23 18:52 08/17/23 19:35 08/17/23 20:50 Temperature 99.1 F Temperature Source Oral Pulse Rate 89 87 Pulse Rate [Lying] 84 Pulse Rate [Sitting (for 1 minute prior to obtaining)] 82 Pulse Rate [Standing (for 1 minute prior to obtaining)] 94 Respiratory Rate 10 L 19 H Respiratory Pattern Blood Pressure 89/56 L 90/61 Blood Pressure [Lying] 88/62 L Blood Pressure [Sitting (for 1 minute prior to obtaining)] 87/58 L Blood Pressure [Standing (for 1 minute prior to obtaining)] 89/61 L Blood Pressure Mean 67 70 Blood Pressure Mean [Lying] 70 Blood Pressure Mean [Sitting (for 1 minute prior to obtaining)] 67 Blood Pressure Mean [Standing (for 1 minute prior to obtaining)] 70 Pulse Ox 100 100 Oxygen Delivery Method Room Air Room Air 08/17/23 21:00 Temperature Temperature Source Pulse Rate 69 Pulse Rate [Lying] Pulse Rate [Sitting (for 1 minute prior to obtaining)] Pulse Rate [Standing (for 1 minute prior to obtaining)] Respiratory Rate 16 Respiratory Pattern Blood Pressure 88/59 L Blood Pressure [Lying] Blood Pressure [Sitting (for 1 minute prior to obtaining)] Blood Pressure [Standing (for 1 minute prior to obtaining)] Blood Pressure Mean 68 Blood Pressure Mean [Lying] Blood Pressure Mean [Sitting (for 1 minute prior to obtaining)] Blood Pressure Mean [Standing (for 1 minute prior to obtaining)] Pulse Ox 96 Oxygen Delivery Method Room Air Weight Weight: 86 lb Body Mass Index (BMI) 16.2 Physical Exam Narrative Physical Examination: General: Awake, alert, oriented x 3 and cooperative, seated upright in the ED bed in no apparent distress, fatigued appearing. Skin: Normal color, normal turgor, no icterus, no cyanosis. HEENT: AT/NC, EOMI, PERRLA, dry MM, no carotid bruits or JVD noted. Lungs: CTA bilaterally, moderate effort, mild decrease BL bases, no rales, ronchi or wheezing. Heart: Regular rate and rhythm; no gallop, rub audible. Abdomen: Soft, thin habitus, NTTP, ND, hyperactive BS, no appreciated HSM. Extremities: No cyanosis, clubbing, or edema. Neurological: Patient awake, alert, oriented as noted, cognitive function intact; pupils equally reactive to light and accommodation, cranial nerves II-XIIgrossly normal, moving all 4 extremities, no focal deficits, strength improved, mildly to moderately global decrease secondary to presentation complaints. Psychiatric: Affect appears flat, fatigued, no acute evidence of depressive or anxiety feelings but does have underlying history. Results Lab / Micro Data 08/17/23 17:35 08/17/23 17:35 Labs: Laboratory Results - last 24 hr 08/17/23 17:35: WBC 5.0, RBC 4.16 L, Hgb 10.6 L, Hct 34.9 L, MCV 83.9, MCH 25.5 L, MCHC 30.4 L, RDW Std Deviation 64.8 H, RDW Coeff of Vandana 21.5 H, Plt Count 168, MPV 9.4, Immature Gran % (Auto) 0.200, Neut % (Auto) 81.8 H, Lymph % (Auto)10.2 L, Amelia % (Auto) 7.6, Eos % (Auto) 0.0, Baso % (Auto) 0.2, Absolute Neuts (auto) 4.1, Absolute Lymphs (auto) 0.51 L, Nucleated RBC % 0, Differential Comment SCANNED, Anisocytosis 2+, Microcytosis 1+, Macrocytosis 1+, Sodium 141, Potassium 3.2 L, Chloride 108 H, Carbon Dioxide 27.0, Anion Gap 6, BUN 9, Creatinine 0.60, Estim Creat Clear Calc 82.89, Est GFR (MDRD) Af Amer 147, Est GFR (MDRD) Non-Af 121, BUN/Creatinine Ratio 14.9, Glucose 93, Calcium 8.4 L, Total Bilirubin 0.30 08/17/23 17:35: Total Bilirubin 0.30, Direct Bilirubin 0.10, AST 32 08/17/23 17:35: AST 30, ALT 23 08/17/23 17:35: ALT 23, Alkaline Phosphatase 76 08/17/23 17:35: Alkaline Phosphatase 75, Total Protein 6.9 08/17/23 17:35: Total Protein 6.9, Albumin 3.4 08/17/23 17:35: Albumin 3.4, Globulin 3.5 08/17/23 17:35: Globulin 3.5, Albumin/Globulin Ratio 1.0, Lipase 20, Serum , Qual NEGATIVE 08/17/23 19:40: Urine Color Yellow, Urine Clarity Clear, Urine pH 8.0, Ur Specific Yermo 1.010, Urine Protein Negative, Urine Glucose (UA) Normal, UrineKetones 5 H, Urine Occult Blood 250 H, Urine Nitrite Negative, Urine Bilirubin Negative, Urine Urobilinogen 1 H, Ur Leukocyte Esterase 25 H, Urine RBC 0-5 SEEN, Urine WBC 0-5 SEEN, Ur Squamous Epith Cells 0-5 SEEN, Urine Bacteria 0 SEEN, Urine Mucus 1+ Imaging Radiology Impression Chest X-Ray 08/17/23 18:50 IMPRESSION: No acute cardiopulmonary pathology Electronically Signed: Sherif Abdullahi MD at 19:20 EST , Assessment & Plan Assessment/Plan (1) Nausea and vomiting: PLAN: Plan The patient is a 32 y/o F w/ PMHx: Recent 07/2022 Acute 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 #1. N/V, abdominal cramping, questionable gastroenteritis versus viral syndromewith associated acute on chronic hypotension: Will admit to medical surgical floor, will continue hydration, given improvement in the ED of both nausea and no further emesis will allow broaden diet, if there is any onset of diarrhea will assess stools, will obtain full respiratory viral panel, will obtain procalcitonin although suspect this could certainly be a viral etiology, will add twice daily low-dose Protonix, will add scheduled bentyl, will have anti-emetics, pain regimen PRN. #2. Hypokalemia: Admission K+ 3.2, magnesium 2.0, supplementation given, repeatlevel in AM. #3. 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 Vogel, had been maintained on spironolactone and metoprolol with blood pressures running 85-95, current presentation with GI losses thus we will temporally hold these medications, add back once appropriate. Per discussion with patient planned upcoming repeat echocardiogram later in the month. #4. Chronic anemia/iron deficiency anemia complicated by suspected underlying malabsorption syndrome: Patient following with gastroenterology outpatient for planned ongoing evaluation of anemia with IV iron transfusions in the ambulatorysetting, admission hemoglobin 10.6, MCV 83.9, will continue to trend, continue oral iron supplementation. #5. Anxiety and depression: We will continue patient home sertraline regimen. #6. DVT prophylaxis: Low risk for type admission, encourage ambulation is improving. Charges/Coding Visit Charges Inpatient E&M: 61827 Init Hosp L2 08/17/23 2316 <Electronically signed by Amy Villalba MD> Cosigner Signature (if applicable): CC: Dr. Amy Villalba MD; Dr. Jamari Zhang DO~ Signed [facility] Work Phone: 1(165) 421-781703-04-2024 Miscellaneous Notes* Telephone Encounter - Linda Pike LISW - 08/14/2023 3:40 PM EST Pt noted on [facility] 1st time treatment report. Pt has a non-oncology regimen. No social work followup indicated. BISMARK Brumfield-S [facility] Miscellaneous Notes* Telephone Encounter - Alexei Garcia - 08/10/2023 10:59 AM EST Reviewed patient on the 1st time treatment report. The patient has a non- oncology regimen. This patient is active with [employer]. No further Financial Navigator intervention is needed at this time. documented in [facility]24 Instructions* Patient Instructions* Yaneth Davenport - 07/25/2023 12:02 PM EST Start Iron - ferrous sulfate 65 mg every Monday, Monday, Monday - after doxycyline completed on 07/31 documented in this [facility]Mem[facility]13-[facility]24 History of Present illness Narrative* Yaneth Davenport - 07/25/2023 10:30 AM EST Hematology Consult Note Carola Harding 1990 Encounter date: 07/25/2023 HPI: Carola Harding is a 32 year old female with a PMHx of myalgia. Notes that she has not really been worked up for any conditions that she is aware of. No routine health maintenance. Per chart review: Long standing history of iron deficiency anemia, anemia during . 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 Found to be pancytopenic during admission (result from [facility] scanned in). Counts have since recovered. PCP visit on 07/21/2022. Very fatigued. Sleeping a lot since discharge. Started about 3 weeks ago when she started to feel sick. Does not feel that she has fully recovered from admission. Denies recurrent fevers, chills of NS. No lumps or bumps. No bony aches or pains. Denies rash or skin changes. SOB and AMADOR improving. Abx for 10 days. Cough better. No CP, palpitations. Follow up with cardio scheduled. Denies PERRY, dizziness. No significant changes in bowel or bladder habits. No hx of GI workup. Notes that her daughter has been dx with celiac. No hx of scope. Does not follow any particular dietary restrictions. Edentulous. Denies PICA. Denies dark, tarry stools. No BRBPR. Does not feel that she is able to gain weight, no unintentional weight loss. Drinking ensures regularly. Denies abdominal pains. Has been on PO iron BID for >8 months. No significant improvement in iron studies with PO iron. Denies hematuria, hematochezia, hemoptysis, hematemesis. Menstrual cycles irregular - heavy last about 1-1.5 weeks Saturating 1 pad per 1.5 to 2 hours. Worse and more irregular since tubal ligation about 3 years. She follows with [facility]. Required IV iron with last 2 pregnancies. No follow up for RE. Has 5 children between the ages of 10 and 3. Hx of 5 miscarriages. Pt told that she lost a lot of blood during each delivery. Notes more significant bleeding with last two pregnancies. Required blood transfusion with 4th due to hemorrhage per SO. Believes it was just 1 unit. Mother and sister with hx of heavy bleeding. Denies any known personal or family hx of bleeding or clotting disorders. No hx of cancers. 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 Occasional cigarette once in a while PAST MEDICAL HISTORY Diagnosis Date Anemia complicating 12/25/2013 Chlamydia 11/2010 Dysthymic disorder Depression (non-psychotic) Hypothyroidism Iron deficiency depression 12/03/2012 Strain of unspecified muscle and tendon at ankle and foot level, right foot, initial encounter 10/13/2017 PAST SURGICAL HISTORY Procedure Laterality Date PAST SURGICAL HISTORY OF 05/20/14 Right open reduction internal fixation clavicle TONSILLECTOMY HX TYMPANOSTOMY LOCAL/TOPICAL ANESTHESIA Current Outpatient Medications Medication Sig Dispense Refill doxycycline (VIBRA-TABS) 100 mg tablet Take 1 tablet by mouth two times a day for 10 days. 20 tablet 0 fluticasone (FLONASE) 50 mcg/actuation nasal spray Use 2 Sprays in each nostril once daily. Rinse mouth after use. 1 Each 0 sertraline (ZOLOFT) 25 mg tablet Take 1 tablet by mouth once daily. 30 tablet 0 ascorbic acid, vitamin C, (VITAMIN C) 500 mg tablet Take 1 tablet by mouth two times a day. 60 tablet 2 ibuprofen (MOTRIN) 600 mg tablet TAKE 1 TABLET BY MOUTH THREE TIMES DAILY NEEDED FOR PAIN OR FEVER [START ON 07/26/2023] ferrous sulfate (IRON) 325 mg (65 mg iron) tablet Take 1 tablet by mouth everyMonday, Monday, and Monday. 90 tablet 1 Food Supplement, Lactose-Free (ENSURE ACTIVE MUSCLE HEALTH) liqd Take 237 mL by mouth four times daily for 7 days. 6636 mL 12 No current facility-administered medications for this visit. ALLERGIES Allergen Reactions Amoxicillin Hives Lactulose Hives Percocet [Oxycodone* Other: See Comments ABDOMINAL PAIN Suprax [Cefixime] Hives FAMILY HISTORY Problem Relation Age of Onset [...] Not Currently Drug use: No Review of Systems: Negative except as noted in HPI reviewed 07/25/2023 Physical Exam: BP 89/62 Pulse 38 Temp (Src) 98.5 (Temporal) Resp 16 Ht 5' 0 (1.52m) Wt 83 lb (37.6kg) SpO2 99% LMP 05/06/2023 BMI 16.21 kg/(m^2). General: Age-appropriate, Appears thin, frail. HEENT: Normocephalic, no sclera icterus, external ears normal, oral cavity clear. edentulous Neck: Supple, no thyroid nodules, no JVD. Chest: Clear diminished, bilaterally, no wheezes, not labored. Heart: Normal S1 and S2, no abnormal sounds Abdomen: Soft, nontender, nondistended, bowel sounds present, no organomegaly or mass, no rigidity. Extremities: No cyanosis, clubbing, gross deformities, or palpable cords. Neurological: Cranial nerves II through XII are intact bilaterally, strength normal in the upper and lower extremities, no focal deficits. Skin: Warm and dry with no rashes or ulcerations. Nodes: No palpable adenopathy in the cervical, supraclavicular, infraclavicular, or axillary regions. Hematologic: no bruising or petechiae. Psychiatric: Alert and oriented x3. Emotional well-being assessment was performed. Pt denies depression, distress, and or problems with coping or adjustment. I have performed the physical exam today (07/25/2023) and have edited the note to correlate with current findings. Lab Results Component Value Date WBC 5.87 07/21/2023 HB 8.9 (L) 07/21/2023 MCV 78.3 (L) 07/21/2023 PLT 409 (H) 07/21/2023 Lab Results Component Value Date NA 140 07/21/2023 K 4.2 07/21/2023 CO2 30 07/21/2023 BUN 9 07/21/2023 CREAT 0.57 (L) 07/21/2023 TBILI <0.2 (L) 07/21/2023 TPROT 7.4 07/21/2023 ALB 3.9 07/21/2023 ALKPHOS 70 07/21/2023 ALT 16 07/21/2023 AST 21 07/21/2023 Ferritin Date Value Ref Range Status 07/21/2023 36.5 14.7 - 205.1 ng/mL Final 05/01/2023 15.5 14.7 - 205.1 ng/mL Final 04/11/2023 6.0 (L) 14.7 - 205.1 ng/mL Final 01/18/2021 70.0 14.7 - 205.1 ng/mL Final 10/03/2019 6.1 (L) 14.7 - 205.1 ng/mL Final Iron Date Value Ref Range Status 07/21/2023 32 (L) 41 - 186 ug/dL Final 05/01/2023 17 (L) 41 - 186 ug/dL Final 04/11/2023 21 (L) 41 - 186 ug/dL Final 01/18/2021 80 41 - 186 ug/dL Final 10/03/2019 28 (L) 41 - 186 ug/dL Final TIBC Date Value Ref Range Status 07/21/2023 382 232 - 386 ug/dL Final 05/01/2023 447 (H) 232 - 386 ug/dL Final 04/11/2023 460 (H) 232 - 386 ug/dL Final 01/18/2021 278 232 - 386 ug/dL Final 10/03/2019 >528 (H) 232 - 386 ug/dL Final Transferrin Saturation Date Value Ref Range Status 07/21/2023 8.4 (L) 15.0 - 57.0 % Final 05/01/2023 3.8 (L) 15.0 - 57.0 % Final 04/11/2023 4.6 (L) 15.0 - 57.0 % Final 01/18/2021 29 15 - 57 % Final 10/03/2019 <5 (L) 15 - 57 % Final Assessment and Plan: Ms. Harding is a pleasant 32 year old woman presenting for evaluation of anemia. Anemia - although recent decrease in hgb/pancytopenia may be 2/2 significant viral infection, myocarditis,anemia has been long standing. Counts recovering since discharge. Repeat cbc ordered today to assess stability. - some component of RE, concern for malabsorption, chronic blood loss. - has been on PO iron for >8 months without significant improvement in iron studies - PO ferrous sulfate 65mg MWF - start after she has completed abx. - recommend IV iron sucrose 200mg x 5 - has required IV iron in the past with pregnancies - Referral to GI for scopes/ ? bleeding. Celiac panel ordered today. - CBC, CMP, B12, B1, B6, copper, zinc, folate. Menorrhagia with irregular cycle - hx of 5 miscarriages, 5 pregnancies with heavy bleeding. Post hemorrhage requiring blood transfusion - continue to follow with LOGISTIC SPECIALIST - VWF panel Myocarditis 2/2 flu b - follow up with cardiology as scheduled RTC in about 6 - 8 weeks with labs prior Yaneth Davenport APRN.CNP I spent >60 minutes in the visit, with more than 50% of the total fktd-tf-ffzp time of the visitin counseling / coordination of care. Portions of this note including HPI, ROS, impression/plan may have been copied forward as to provide important historical information essential in contributing to medical decision making. Documentation has been reviewed and edited as necessary to support clinical decision making for today's visit and to reflect my own independent evaluation of this patient. documented in this encounterMem[facility] Hospital02-12-2024 Miscellaneous Notes* Telephone Encounter - Mar Ba Ma - 07/24/2023 10:29 AM EST Pt notified. Mar Ba Ma * Telephone Encounter - Marlyn Estrada APRN.BLAIRE - 07/24/2023 8:41 AM EST Please call patient and let her know that lab work results overall look good. TSH is back to normal from hospital admission. Iron level is still very low at 32, but this is much improved from 17 which was 2 months ago. However, Hemoglobin remains low at 8.9. Continue with hematology about iron transfusions. D-dimer was normal. No concerns for clot. CXR was also normal, no signs of pneumonia. Continue with antibiotic as prescribed. Thank you, Marlyn Estrada APRN.BLAIRE documented in this encounterMemorial Hospital02-09-2024 Miscellaneous Notes* Telephone Encounter - Stefania Toledo - 07/21/2023 4:13 PM EST Called and spoke with patient. New patient appt with Yaneth scheduled for 07/25. tSefania Hayes * Telephone Encounter - John Colin DO - 07/21/2023 3:48 PM EST Iron deficiency. Please schedule with Yaneth. John Colin DO * Telephone Encounter - Zenia Kim - 07/21/2023 2:18 PM EST Please review consult to Hematology from Marlyn Estrada and call patient to schedule, thank you. documented in this encounterMemorial Hospital02-09-2024 History of Present illness Narrative* Josefina Patel RT(R) - 07/21/2023 2:40 PM EST Radiology Service Progress Note PATIENT NAME: Carola Harding DATE OF SERVICE: July 21, 2023 TIME: 2:50 PM PATIENT IDENTITY VERIFICATION COMPLETED USING TWO (2) IDENTIFIERS: Name and Date of confirmedby patient verbally. FALL SCREENING: Has the patient had 2 falls in the last year or 1 fall with injury or currently using an Ambulatory Assistive Device (Walker, Cane, Wheelchair, Crutches, etc.)? No PATIENT GENDER DATA: Female. status: : No status: NO. PATIENT RELEVANT IMPLANT DATA REVIEWED: Not Applicable PATIENT PRESENTS WITH AN IMPLANTABLE OR ATTACHED CANDY DIPPER: No RADIOLOGY DEPARTMENT: General X-ray: Exam(s) Completed: Chest X-Ray PERIPHERAL IV DATA: Not applicable SIGNED BY: RT Cindy(R) July 21, 2023 2:50 PM documented in this encounterMemorial Hospital02-09-2024 History of Present illness Narrative* Marlyn Estrada APRN.CNP - 07/21/2023 1:20 PM EST Chief Complaint Patient presents with: hospital f/up HPI Carola Harding is a 32 year old female who presents here today for Above Complaints. Carola is an established patient of Dr. Vicente DO and myself. Concerns today.. Hospital follow-up --- [facility] admission from 07/16/23-07/18/23. Pt went to ER d/t CP and cough. Influenza + a few days prior. Pt was hypotensive in ER. Found to be anemic with hgb of 8.3 d/t severe iron deficiency with suspected leukopenia r/t acute viral illness, reactive. Pt had elevated troponins which lead to diagnosis of viral myocarditis secondary to influenza B. Made worse by severe hypokalemia of 2.8 (this was quickly corrected with supplemental K). Chest CTA was unremarkable. ECHO showed EF of 35%. Pt was discharged on metoprolol and spironolactone. Pt told to have close follow-up with cardiology, possible cardiac MRI planned outpatient? Consulted hematology outpatient for possible IV Fe infusions. Concern for hyperthyroidism d/t TSH was low at 0.64. no thyroid medication regimen. In office today.... Pt reports feeling slightly better but not much since ER visit. Pt reports cough and congestion still severe. Pt reports chest pain with coughing only. Pt reports fever night prior to discharge of 102F, fever on Monday at home was 101F. Today, low grade fever in office. Pt reports sinus pressurestarting. Thyroid labs on 04/11/23 were all normal. TSH elevated in hospital. Pt does report family history of thyroid disease with numerous family members on her mom's side. Pt unsure if hypo- or hyper-thyroidism. Pt does report severe fatigue and cold intolerance but also has marked iron deficiency anemia. Component Latest Ref Rng & Units 04/11/2023 TSH 0.270 - 4.200 mIU/L 1.210 T3 79 - 165 ng/dL 136 Free T4 0.9 - 1.7 ng/dL 1.0 Iron deficiency anemia -- Pt reports taking iron and vitamin C supplements as prescribed. However, at appointment reports pt was taking these routinely after last appointment but then she stopped for a few months prior to hospital admission. Since admission she has been routinely taking them again. Taking metoprolol and spirolactone as prescribed. Scheduled with cards in 2 weeks. Pt hypotensive at baseline. Last 14 Encounter BP Readings: Date: BP: 07/21/2023 89/60 05/06/2023 109/75 05/01/2023 100/60 04/10/2023 94/64 03/03/2023 110/76 03/28/2022 102/64 09/06/2021 90/62 06/01/2021 98/64 01/27/2021 94/66 01/18/2021 100/80 01/14/2021 110/70 03/23/2020 112/74 02/14/2020 84/62 02/06/2020 90/54 Past medical history, appointments, medications, allergies reviewed. [...] nostril once daily. Rinse mouth after use. sertraline (ZOLOFT) 25 mg tablet Take 1 tablet by mouth once daily. ascorbic acid, vitamin C, (VITAMIN C) 500 [...] REVIEW OF SYSTEMS See HPI. EXAM: BP 80/60 (BP Site: Left Arm, BP Position: Sitting, BP Cuff Size: Small Adult) Pulse 73 Temp 37.6 C (99.6 F) Resp 14 Wt 37.3 kg (82 lb 3.2 oz) LMP 05/06/2023 (Exact Date) SpO2 96% BMI 14.94 kg/m General Appearance: Well appearing, alert, in no acute distress, well-hydrated, well nourished.. Skin: Skin color, texture, turgor normal, no suspicious rashes or lesions. Head: Normocephalic, no masses, lesions, tenderness or abnormalities. Neck: Supple, no adenopathy; thyroid symmetric, normal size, no bruits. Lungs: Lungs clear to auscultation. No wheezing, rhonchi, rales. Heart: RRR without murmur, gallop, or rubs. No ectopy. Abdomen: Normal abdominal exam, Abdomen soft, non-tender. Bowel sounds normal. No masses, organomegaly. Neurologic: Gait normal. Reflexes normal and symmetric. Sensation grossly intact. Health Maintenance List Depression Assessment due on 06/12/2023 Pap Testing due on 08/06/2023 HPV Testing due on 08/06/2023 Influenza Vaccine(1) due on 12/10/2023 Covid-19 Vaccine(1) due on 04/10/2024 DTaP,Tdap,Td Vaccine(11 - Td or Tdap) due on 11/27/2029 Hepatitis B Vaccine Completed HPV Vaccine Completed Hepatitis C Screening Completed HIV Screening Completed ASSESSMENT/PLAN: 1. Hospital discharge follow-up - ICD9: V67.59, ICD10: Z09 (primary diagnosis) Lab work as below. Thyroid levels to recheck elevated TSH from hospital. CBC and iron levels to recheck anemia now that she is back on iron supplement BID. CMP to recheck hypokalemia from hospital admission. D-dimer due to concerns for pleuritic chest pain without improvement. CTA from hospital admission was negative for PE. Start doxycycline due to worsening cough and sinus pressure x 10-11 days now. May have turned bacterial at this point. CXR to rule out pneumonia. - CONSULT TO HEMATOLOGY - COMP METABOLIC PANEL - CBC + DIFF - IRON + TIBC - FERRITIN BLD - TSH BLD - T3 BLD - T4 FREE/FREE THYROX - DOXYCYCLINE HYCLATE 100 MG TABLET - XR CHEST 2V FRONTAL/LAT - D-DIMER 2. Iron deficiency anemia, unspecified iron deficiency anemia type - ICD9: 280.9, ICD10: D50.9 Consult hematology for possible IV Fe infusions. Hgb remains low despite vit C and iron supplements BID. - CONSULT TO HEMATOLOGY - COMP METABOLIC PANEL - CBC + DIFF - IRON + TIBC - FERRITIN BLD 3. Leg cramps - ICD9: 729.82, ICD10: R25.2 CMP to check electrolytes. Severe hypokalemia with admission. 4. 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 - ICD9: 487.0, 422.0, ICD10: J11.82 Continue with cardiology appointment in 2 weeks. Continue medication as prescribed. - CONSULT TO HEMATOLOGY - COMP METABOLIC PANEL - CBC + DIFF - IRON + TIBC - FERRITIN BLD - D-DIMER 5. Hypokalemia - ICD9: 276.8, ICD10: E87.6 Recheck potassium level. May need daily supplement. On spirolactone. - COMP METABOLIC PANEL 6. Elevated TSH - ICD9: 794.5, ICD10: R79.89 Recheck thyroid levels due elevated TSH with admission. - TSH BLD - T3 BLD - T4 FREE/FREE THYROX 7. Subacute cough - ICD9: 786.2, ICD10: R05.2 CXR to rule out pneumonia. Start doxcycyline bid x 10 days due to possible bacterial infection due to length of symptoms. Willtreat sinusitis or pneumonia. - DOXYCYCLINE HYCLATE 100 MG TABLET - XR CHEST 2V FRONTAL/LAT - D-DIMER 8. Influenza B - ICD9: 487.1, ICD10: J10.1 Check d-dimer to rule out clot. - D-DIMER RTO in 3 months, sooner if needed. Prescription instructions reviewed with patient as applicable. Potential red flag symptoms discussed with the patient. Reviewed appropriate action plan to take if red flag symptoms occur. Patient agreeable to treatment plan. Marlyn Bynum APRN.VETERINARY TOXICOLOGIST [address] [place] [address] documented in this encounterMemorial Hospital02-04-2024 Discharge summary Author Lang Atkinson [facility] July 16, 2023 10:00pm Note Date/Time July 16, 2023 4 :58pm [facility] Medical Records Department [address] [place] [address] Emergency Department Summary 07/16/23 MR#: [id number] Acct: [id number] Name: CAROLA HARDING Rep #:[id number] : 1990 32 From: Lang Valderrama PCP: Dr. Jamari Zhang DO Status:RE G ER Location: ED HPI History of Present Illness Chief Complaint: Cough PFSH PFSH Medical History Abnormal thyroid blood test Anemia Clavicle fracture Depression History of thyroid disorder Painful orthopaedic hardware Home Medications ascorbic acid (vitamin C) 500 mg tablet (Vitamin C) 500 mg PO BID supplement 07/13/23 [History Last Taken 07/10/23] benzonatate 100 mg capsule 100 mg PO TID PRN cough #30 caps 07/13/23 [Rx Last Taken Unknown] ferrous sulfate 142 mg (45 mg iron) tablet,extended release (Slow Release Iron) 142 mg PO BID iron deficiency 07/13/23 [History Last Taken 07/10/23] guaifenesin 1 tab PO Q6H PRN cold symptoms 07/13/23 [History Last Taken 07/12/23] ondansetron 4 mg disintegrating tablet 4 mg PO Q8H PRN PRN Nausea #20 tabs 07/13/23 [Rx Last Taken Unknown] sertraline 25 mg tablet 25 mg PO DAILY 07/13/23 [History Last Taken 07/10/23] Allergy/AdvReac Type Severity Reaction Status Date / Time amoxicillin [Amoxicillin] Allergy Hives Verified 07/16/23 16:29 cefixime [From Suprax] Allergy Hives Verified 07/16/23 16:29 lactulose Allergy Hives Verified 07/16/23 16:29 oxycodone HCl [From Percocet] AdvReac Abd Verified 07/16/23 16:29 cramps/diarrhea Surgical History Hx of tubal ligation Social History Smoking Status: Never smoker EXAM Physical Exam Const Vital Signs: 07/16/23 16:29 07/16/23 17:22 07/16/23 17:32 Temperature 99.5 F H 97.9 F Temperature Source Temporal Temporal Pulse Rate 88 89 Respiratory Rate 16 15 Respiratory Effort Short of Breath Respiratory Depth Normal Respiratory Pattern Normal Blood Pressure 85/62 L 101/70 Blood Pressure Mean 69 80 Pulse Ox 98 99 Oxygen Delivery Method Room Air Room Air Room Air 07/16/23 19:03 07/16/23 19:30 Temperature Temperature Source Pulse Rate 89 76 Respiratory Rate 16 14 Respiratory Effort Respiratory Depth Respiratory Pattern Blood Pressure 100/74 101/72 Blood Pressure Mean 82 81 Pulse Ox 99 100 Oxygen Delivery Method Room Air Room Air MDM MDM MDM Narrative Medical decision making narrative: HISTORY OF PRESENT ILLNESS: 30-year-old female presents with cough, congestion. Recently diagnosed with influenza B. She states since then she has had increasing cough, chest pain with cough, shortness of breath with cough. Denies any chest pain or shortness of breath at rest. . The patient denies recent surgery in the last 4 weeks or immobilization in the last 3 days, denies previous diagnosis of DVT or PE, hemoptysis, unilateral leg swelling or malignancy with treatment the last 6 months or palliative. No estrogen use noted. Denies syncope. Endorses vomiting. Denies diarrhea. REVIEW OF SYSTEMS: Pertinent positives: Cough, congestion Pertinent negatives: Diarrhea, syncope, focal loss of sensation PHYSICAL EXAM: Nursing triage notes reviewed, Vital signs reviewed Constitutional: please see mdm HENT: MMM Eyes: Pupils equal round and reactive to light, Extraocular muscles intact Neck: No stridor, no JVD, full neck ROM Lungs: Clear to auscultation, No wheezing or rales. No increased work of breathing, no conversational dyspnea, no accessory muscle use, no nasal flaring. No respiratory distress noted Heart: Regular rate and rhythm, No murmurs, No rubs and No gallops, 2+ distal pulses (radial, femoral, posterior tibial) in all extremities Abdomen: Soft, there is no tenderness, rigidity, rebound or guarding, no obviousperitoneal signs, no palpable pulsatile abdominal masses, no auscultated abdominal bruit : No CVAT Extremities: No edema Neuro: No focal neurological deficits, cranial nerves II through XII intact, 5/5strength in all extremities. Intact sensation to light touch in all extremities,2+ reflexes bilateral patella tendons. Normal gait. No ataxia. Skin: No rash or lesions noted MEDICAL DECISION MAKING: Chief Complaint: Cough, congestion External records reviewed: Prior microbiological testing reviewed, she is influenza B positive on 07/13/2023. Imaging reviewed: Chest x-ray from 07/13/2023 shows no evidence of intracranial process Factors affecting care: Influenza B Consults: Cardiology, internal medicine MDM Narrative: Patient was initially borderline febrile, had soft blood pressures although her baseline blood pressures in the 90 systolic, exam without focal cardiopulmonary abnormalities. I considered the following differential diagnosis: Dehydration, electrolyte disturbance, anemia, pneumonia I obtained a broad lab and imaging workup to further elucidate the etiology patient complaints. I treat the patient's pain fever and signs of dehydration with fluids, Toradol and Reglan. ALL IMAGES (IF OBTAINED) HAVE BEEN PERSONALLY REVIEWED AND INTERPRETED BY MYSELF. EKG with normal sinus rhythm, normal axis, normal levels, no STEMI Troponin elevated consistent with myocardial ischemia in the setting of recent viral URI could be territory sales representative of pericarditis or myocarditis CBC with no leukocytosis, noted significantly worsening anemia from prior study 2021, noted thrombocytopenia with platelet count of 106 CMP with hypokalemia 2.8, no acute kidney injury, no hepatobiliary pathology noted Lipase is wnl indicating no pancreatic inflammation. Potassium replaced with oral potassium. The synthesis of the patient's history, physical exam, labs images suggest likely myocarditis secondary to influenza B. I discussed the case with hospitalist Dr. Amaya states patient be admitted for further cardiology evaluation. Spoke with the hospitalist Dr. Blackwell who recommended PCU. The patient and/or family, caregivers express understanding. The patient and/orfamily, caregivers agrees with the plan. Shared decision making: I will have a discussion with the patient and or visitors regarding risk/benefits of further testing or admission. They will be made aware of of the risk/benefits inherent in this decision they will be given the opportunity to voice understanding. Total critical care time today provided was at least 0 minutes. This excludes separately billable procedures. Critical care time (if documented) is secondary to the patient having high probability of clinically significant/life threatening deterioration in the patient's condition which required my urgent intervention. Impression: 1. Myocarditis 2. Cough 3. Nausea vomiting 4. Dehydration 5. Influenza B Dispo: Admit This note was generated with [employer] dictation software. It may contain incorrectwords, spelling, and punctuation that were not noted in review of the chart prior to signing. Lab Data Labs: Laboratory Results - last 24 hr 07/16/23 07/16/23 17:45 20:05 WBC 3.6 L RBC 3.66 L Hgb 8.3 L Hct 27.9 L MCV 76.2 L MCH 22.7 L MCHC 29.7 L RDW Std Deviation 47.5 H RDW Coeff of Vandana 16.9 H Plt Count 106 L MPV 10.2 Immature Gran % (Auto) 0.000 Neut % (Auto) 67.3 Lymph % (Auto) 25.1 Amelia % (Auto) 7.3 Eos % (Auto) 0.0 Baso % (Auto) 0.3 Absolute Neuts (auto) 2.4 Absolute Lymphs (auto) 0.90 Nucleated RBC % 0 Sodium 142 Potassium 2.8 L Chloride 110 H Carbon Dioxide 29.0 Anion Gap 3 L BUN 9 Creatinine 0.61 Estim Creat Clear Calc 81.54 Est GFR (MDRD) Af Amer 144 Est GFR (MDRD) Non-Af 119 BUN/Creatinine Ratio 14.7 Glucose 96 Calcium 8.3 L Total Bilirubin 0.20 AST 30 ALT 24 Alkaline Phosphatase 51 Troponin I High Sens 62 H 62 H B-Natriuretic Peptide 17.7 Total Protein 6.5 Albumin 3.0 L Globulin 3.5 Albumin/Globulin Ratio 0.9 Lipase 50 Radiography Diagnostic Testing: Clinical Impression(s) from Imaging Studies Chest X-Ray 07/16/23 17:50 IMPRESSION: No acute findings in the chest. Electronically Signed: Hu Hills DO at 18:04 EST , Chest CTA 07/16/23 18:51 IMPRESSION: No acute findings in the visualized arteries of the chest. Electronically Signed: Hu Hills DO at 19:47 EST , Discharge Plan Dx/Rx/DC Orders Clinical Impression: Influenza B, Myocarditis Disposition Disposition: Acute Care Hospital [facility] What to do if you have Problems For any increased pain, shortness of breath, bleeding, nausea or vomiting, chestpain, or any unexpected problems, contact your Primary Care Provider. Call [facility] ([phone]) or report to the closest Emergency Room. Call 911 if necessary. 07/16/23 2200 <Electronically signed by Lang Atkinson DO> Cosigner Signature (if applicable): CC: Dr. Jamari Zhang DO ~ Signed [facility] Work Phone: 1(120) 623-109611-25-2023 History of Present illness Narrative* Sylvester Garay APRN.VETERINARY TOXICOLOGIST - 05/06/2023 11:26 AM EST Subjective HPI HPI Carola Harding is a [...] PROPIONATE 50 MCG/ACTUATION NASAL SPRAY,SUSPENSION Sylvester Garay APRN.CNP documented in this encounterMemorial Hospital11-22-2023 Miscellaneous Notes* Telephone Encounter - Marlyn Estrada APRN.CNP - 05/03/2023 11:08 AM EST Please call patient and let her know that hemoglobin and ferritin (protein that carries and stores iron) has slightly improved. documented in this encounterMemorial Hospital11-20-2023 History of Present illness Narrative* Marlyn Estrada APRN.CNP - 05/01/2023 11:20 AM EST Chief Complaint Patient presents with: follow up: Head aches , nasal congestion HPI Carola Harding is a 32 year old female who presents here today for Above Complaints.. Carola is an established patient of Dr. Vicente DO and myself. Following up today from prior [...] sick with similar symptoms. Took them to slab tripper and was told this was likely viral infection. Menstrual cycle is about 3 weeks late, no symptoms or signs that it is coming. Has not taken test at home. Reports cycle has always been regular and routine but recently the last few monthsit has been irregular. Pt also reports mild lower abd pain -- but reports this is pretty much baseline for her. Pt also reports white vaginal discharge and mild itchiness -- thinks she has yeast infection as shehas got these in the past. Denies any [...] BP Cuff Size: Regular Adult) Pulse 104 Resp16 Wt 38.8 kg (85 lb 9.6 oz) [...] PAP and evaluation if symptoms do not improvewith diflucan. - FLUCONAZOLE 150 MG TABLET - [...] symptoms occur. Patient agreeable to treatment plan. Marlyn Bynum APRN.VETERINARY TOXICOLOGIST [address] [place] [address] documented in this encounterMemorial Hospital11-01-2023 Miscellaneous Notes* Telephone Encounter - Sherri Castanon LPN - 04/12/2023 3:51 PM EDT Pt. informed. * Telephone Encounter - Marlyn Estrada APRN.CNP - 04/12/2023 2:57 PM EDT Please call patient and let her know that lab work is back and overall looks very good besides ironlevels. Iron level is extremely low, lower than any of her priors. This is causing anemia with a hgb of 9.5which is also much lower than any of her priors. We need to restart on iron supplement -- Slow FE 45 mg BID. Take this with vitamin C supplement BID to increase absorption. Both of these supplements are sent to pharmacy. Repeat Iron levels in 1 month. Thank you, Marlyn Estrada APRN.VETERINARY TOXICOLOGIST documented in this encounterMemorial Hospital09-22-2023 History of Present illness Narrative* Cris Rolle PA-C - 03/03/2023 6:44 PM EDT This note was created using [employer]. Celine Harding is a 32 year old female. HPI Patient presents with a chief complaint of cough and congestion over the past week. She feels like she is not improving. She is tried some Mucinex ggum-txd-lqjmscu. Her son was sick with similar symptoms the week before. No fever. Cough is keeping her up at night. Is productive. No chest pain or rosita rtness of breath. No vomiting or diarrhea. No ear pain. She is also had a persistent sore throat. She tried some allergy medication lpmi-udr-najrxei which did not seem to help either. [...] daily for 7 days. 6636 mL 12 Qwqakeixwjdvdgr-Wfzhkcnbd-EK (BROMFED DM) 2-30-10 mg/5 mL syrup Take [...] (POC) Cris Rolle PA-C documented in this encounterMemorial Hospital08-28-2023 Discharge summary Author Ming Ziegler [facility] February 06, 2023 9:01pm Note Date/Time February 06, 2023 8: 54pm [facility] Medical Records Department [address] [place] [address] Emergency Department Summary 02/06/23 MR#: [id number] Acct: [id number] Name: CAROLA HARDING Rep #:[id number] : 1990 32 From: Ming Ziegler MD PCP: Dr. Jamari Zhang, DO Status:GA E ER Location: ED HPI History of Present Illness Chief Complaint: Lower Extremity Injury Informant: patient Narrative Narrative: Patient complains of left foot pain. Patient slipped on the steps and hurt the left foot. Nothing else was injured. She is able to bear weight. No anticoagulation. She has no numbness tingling or weakness. No history of prior surgeries or fractures in the foot. Weightbearing makes it worse and rest makes it better. [facility] Medical History Abnormal thyroid blood test Anemia Clavicle fracture Depression History of thyroid disorder Painful orthopaedic hardware Home Medications levofloxacin 750 mg tablet 750 mg PO DAILY 5 days #5 tabs 03/02/22 [Rx Last Taken Unknown] ondansetron 4 mg disintegrating tablet 4 mg PO Q8H PRN PRN Nausea #10 tabs 03/02/22 [Rx Last Taken Unknown] ibuprofen 600 mg tablet 600 mg PO 4X/DAY PRN Pain Or Fever #20 tabs 03/08/22 [Rx Last Taken Unknown] naproxen 500 mg tablet 500 mg PO BID #14 tabs 02/06/23 [Rx Last Taken Unknown] Allergy/AdvReac Type Severity Reaction Status Date / Time amoxicillin [Amoxicillin] Allergy Hives Verified 02/06/23 18:50 cefixime [From Suprax] Allergy Hives Verified 02/06/23 18:50 lactulose Allergy Hives Verified 02/06/23 18:50 oxycodone HCl [From Percocet] AdvReac Abd Verified 02/06/23 18:50 cramps/diarrhea Surgical History Hx of tubal ligation Social History Smoking Status: Never smoker ROS ROS ED Constitutional Constitutional ED: Denies chills or fever(s) Cardiovascular Cardiovascular: Denies chest pain or palpitations Respiratory/Chest Respiratory/Chest: Denies cough or dyspnea Gastrointestinal Gastrointestinal: Denies nausea Musculoskeletal Musculoskeletal: Reports arthralgias; Denies back pain, myalgias or neck pain Integumentary Denies Abrasions or rash Neurologic Neurologic: Denies headache(s), paresthesias or weakness Hematologic/Lymphatic Hematologic/Lymphatic: Denies easy bleeding or easy bruising EXAM Physical Exam Narrative Exam Narrative: Patient is awake alert no acute distress sitting in wheelchair. HEENT shows no sign of trauma. Cardiorespiratory shows easy unlabored breathing and saturations are normal at 98%. Extremities show no swelling at this time. She does have some mild tenderness to the midfoot and lateral midfoot. No tenderness to the ankle calcaneus or proximal leg or knee. No swelling. No deformity. Const Vital Signs: 02/06/23 18:50 Temperature 96.8 F L Temperature Source Temporal Pulse Rate 70 Respiratory Rate 14 Blood Pressure 102/78 Blood Pressure Mean 86 Pulse Ox 98 Oxygen Delivery Method Room Air MDM MDM MDM Narrative Medical decision making narrative: You x-ray of the left foot interpreted by me shows no sign of acute fracture. Final reading is similar. Ice rest nonsteroidals are appropriate. Follow-up for repeat x-ray if still hurting in 1 to 2 weeks. Radiography Diagnostic Testing: Clinical Impression(s) from Imaging Studies Foot X-Ray 02/06/23 19:38 IMPRESSION: Negative. Electronically Signed: Froylan Angeles MD at 20:22 EDT , Discharge Plan Triage Chief Complaint: Lower Extremity Injury ED Provider: Ming Ziegler Dx/Rx/DC Orders Clinical Impression: Fall from steps, Contusion of foot, left Instructions: ED Foot Contusion Prescriptions: New naproxen 500 mg tablet 500 mg PO BID Qty: 14 0RF No Action ondansetron [ondansetron] 4 mg tablet,disintegrating 4 mg PO Q8H PRN PRN (Reason: Nausea) Qty: 10 0RF levofloxacin 750 mg tablet 750 mg PO DAILY 5 Days Qty: 5 0RF ibuprofen 600 mg tablet 600 mg PO 4X/DAY PRN (Reason: Pain Or Fever) Qty: 20 0RF Primary Care Provider: Jamari Zhang Referrals: Jamair Zhang, [Primary Care Provider] - 3-5 Days if not improving Disposition Disposition: Home, Self Care What to do if you have Problems For any increased pain, shortness of breath, bleeding, nausea or vomiting, chestpain, or any unexpected problems, contact your Primary Care Provider. Call [facility] ([phone]) or report to the closest Emergency Room. Call 911 if necessary. 02/06/232100 <Electronically signed by Ming Ziegler MD> Cosigner Signature (if applicable): CC: Dr. Jamari Zhang DO ~ Signed [facility] Work Phone: [phone] 360-268610-17-2022 Instructions* Patient Instructions* Michelle Herrmann APRN.VETERINARY TOXICOLOGIST - 03/28/2022 1:58 PM EDT -Increase fluid [...] breath, inability to swallow. documented in [facility] encounterMem[facility]10[facility]22 History of Present illness Narrative* Michelle HerrmannSTEFANIE.VETERINARY TOXICOLOGIST - 03/28/2022 1:48 PM EDT Subjective The history is provided by the patient. No language translator was used. LIVAN Harding is a 31 year old female who presents today for CC of cough, congestions, sore throatand runny nose. This started over a week ago. She has used OTC cough and cold medications and allergy medications. She denies any fever chills body aches nausea, vomiting or diarrhea. Other family members ill. BP 102/64 Pulse 102 Temp 36.5 C (97.7 F) Resp 16 Wt 38.8 kg (85 lb 9.6 oz) LMP 05/07/2019(Within Days) SpO2 98% BMI 15.75 kg/m Social [...] have confirmed and edited as necessary, the [facility] Review of Systems Constitutional: Negative for [...] for higher level of care were discussed indetail warranting prompt ER evaluation. Michelle Herrmann APRN.VETERINARY TOXICOLOGIST documented in this encounterMemorial Hospital10-03-2022 History of Present illness Narrative* Tong Mederos MD - 03/14/2022 3:51 PM EDT Tong Mederos M.D. M.M.Sc. Economic Development Specialist of Orthopaedic Surgery at [place] [address] Office: [phone] Consult requested for an opinion regarding the evaluation and treatment of the above patient. My final impression and recommendations will be communicated back to the requesting physician by way of the shared medical record or letter via US mail. Patient info: Carola Harding ([id number]) Service date: 03/14/2022 Referred by: SELF PCP: [...] Pain Level: 6 Pain Location: Shoulder-Right Description: Aching;Dull;Sharp;Sore;Throbbing Duration Units: Years Frequency: Continuous Intervention/Comfort measure: Medication;Reposition;Relaxation;Cold Other pertinent Hx: Occupation: unemployed, housewife and [...] medications for this visit. General Physical Exam: [facility] 05/07/2019 (Within Days) No weight on file [...] and come seem to discuss hardware removal. Allquestions answered. If any more questions or concerns arise, they should not hesitate to call. Tong Mederos M.D. M.M.Sc. Shoulder and Elbow Surgeon Orthopaedic Surgery Department [place], [place] [address] Tell: [phone] Appt:[phone] 03/14/2022 3:51 PM CC:Self documented in this encounterMemorial Hospital04-01-2022 Miscellaneous Notes* Telephone Encounter - Criselda Bassett RN - 09/10/2021 11:26 AM EDT Patient notified of results and provider's instructions. Patient verbalizes understanding. Criselda Bassett RN * Telephone Encounter - Flor Joseph Ma - 09/08/2021 4:35 PM EDT vm left with patient to contact office for results Flor Joseph Ma * Telephone Encounter - Marlyn Bynum APRN.CNP - 09/08/2021 4:23 PM EDT Please let patient know that blood work results overall look good. Her blood test for H. Pylori was positive. This shows that she has had the H.pylori infection at some point but does not confirm that she currently has infection. I need a stool sample to confirm current infection. Placed order. If stool is positive, we can treat with antibiotics. Marlyn Bynum APRN.CNP documented in this encounterMemorial Hospital03-28-2022 Instructions* Patient Instructions* Marlyn Bynum APRN.CNP - 09/06/2021 1:56 PM EDT Get Blood work and schedule US of abdomen. Schedule with reed or wind instrument tuner JESSICA and flu testing in office. documented in this encounterMemorial Hospital03-28-2022 Nurse Note* Cherie Gan LPN - 09/06/2021 1:26 PM EDT Pt states low abdominal pressure for past few days. Dark concintrated urine. documented in this encounterMemorial Hospital03-28-2022 History of Present illness Narrative* Marlyn Bynum APRN.CNP - 09/06/2021 1:07 PM EDT Chief Complaint Patient presents with: Physical HPI Carola Harding is a 31 year old female who presents here today for 6 month follow-up. Carola is an established patient of Dr. Zhang. Carola is a new patient to me [...] eat more. Tries to eat healthy with biggerportions.Does not feel like she eats a small amount, just feels like it goes right through her. Hastried Ensure supplements for further nutrition. Reports always having a fast metabolism. Denies anydiarrhea. Denies n/v with eating. Does report recent [...] to her [patient] she is full of shit. Patient was OK with staying inroom for visit. Past medical history, appointments, medications, [...] C (99.2 F) Ht 157 cm (5' 1.81) Wt 37.7 kg (83 lb 1.9 oz) [...] ultrasound - Increase fiber in diet - [place] low residue diet - UA DIP, URINE [...] symptoms occur. Patient agreeable to treatment plan. Marlyn Bynum APRN.VETERINARY TOXICOLOGIST [address] [place] [address] documented in this encounterMemorial Hospital07-23-2020 History of Past illness Narrative* Problem Noted [...] IV iron at this time. Rosy Wilcox APRN.DIANAM Strain of unspecified muscle and tendon at ankle and foot level, right foot, initial encounter 10/13/2017 10/13/2017 Fall on same level from slip ping, tripping and stumbling without subsequent striking against object, initial encounter 10/13/2017 10/13/2017 History of depression 05/18/2017 03/23/2020 Overview: 07/01/2019Pt has a history of depression diagnosed at age 16, and treated by a at [place]. She has been treated for depression after [...] thyroid disorder treated by Dr. White, an adjunct lecturer in [place]. Patient took herself off of levothyroxine at [...] History of left flank pain 03/19/201211/12 Overview: 03/19/2012Ngoce was seen at [facility] on March 06 for left flank pain. An ultrasound was done that revealed an intrauterine at 11 weeks 2 days. Urinalysis was negative. Patient denies any pain since then. [facility] ER report was faxed here and sent to Dr. Meeta Dhaliwal's office for review. 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 Patient states she was seen in [facility] 2 weeks ago for spotting during . She denies any bleeding since then. She denies any pain or cramping. She states she had an ultrasound done at [facility] that showed an intrauterine with an estimated due date of April 21. Patient signed a release of records form to obtain her records from her emergency room visit. Miscarriage precautions discussed. Depression 09/29/2011 05/18/2017 Overview: 07/02/2013 Pt has a history of depression diagnosed at age 16, and treated by a DrJoann at [place]. She was treated for depression by Dr. [...] of this encounter (statuses as of 09/06/2021) [facility] History of Past illness Narrative* Problem Noted [...] Kendrick MD Request for sterilization 08/27/20192019 Overview: 6/18/20 - title 19 papers signed today - [...] 16, and treated by a DrJoann at [place]. She has been treated for depression after [...] thyroid disorder treated by Dr. White, an adjunct lecturer in [place]. Patient took herself off of levothyroxine at [...] pain 03/19/201211/12 Overview: 03/19/2012Faby was seen at [facility] on March 06 for left flank pain. An ultrasound was done that revealed an intrauterine at 11 weeks 2 days. Urinalysis was negative. Patient denies any pain since then. [facility] ER report was faxed here and sent to Dr. Meeta Dhaliwal's office for review. 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 Patient states she was seen in [facility] 2 weeks ago for spotting during . She denies any bleeding since then. She denies any pain or cramping. She states she had an ultrasound done at [facility] that showed an intrauterine with an estimated due date of April 21. Patient signed a release of records form to obtain her records from her emergency room visit. Miscarriage precautions discussed. Depression 09/29/2011 05/18/2017 Overview: 07/02/2013 Pt has a history of depression diagnosed at age 16, and treated by a DrJoann at [place]. She was treated for depression by Dr. [...] of this encounter (statuses as of 09/10/2021) [facility] History of Past illness Narrative* Problem Noted [...] age 16, and treated by a at [place]. She has been treated for depression after [...] thyroid disorder treated by Dr. White, an adjunct lecturer in [place]. Patient took herself off of levothyroxine at [...] pain 03/19/201211/12 Overview: 03/19/2012Faby was seen at [facility] on March 06 for left flank pain. An ultrasound was done that revealed an intrauterine at 11 weeks 2 days. Urinalysis was negative. Patient denies any pain since then. [facility] ER report was faxed here and sent to Dr. Meeta Dhaliwal's office for review. 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 Patient states she was seen in [facility] 2 weeks ago for spotting during . She denies any bleeding since then. She denies any pain or cramping. She states she had an ultrasound done at [facility] that showed an intrauterine with an estimated due date of April 21. Patient signed a release of records form to obtain her records from her emergency room visit. Miscarriage precautions discussed. Depression 09/29/2011 05/18/2017 Overview: 07/02/2013 Pt has a history of depression diagnosed at age 16, and treated by a DrJoann at [place]. She was treated for depression by Dr. [...] of this encounter (statuses as of 03/15/2022) [facility] History of Past illness Narrative* Problem Noted [...] age 16, and treated by a at [place]. She has been treated for depression after [...] thyroid disorder treated by Dr. White, an adjunct lecturer in [place]. Patient took herself off of levothyroxine at [...] pain 03/19/201211/12 Overview: 03/19/2012Faby was seen at [facility] on March 06 for left flank pain. An ultrasound was done that revealed an intrauterine at 11 weeks 2 days. Urinalysis was negative. Patient denies any pain since then. [facility] ER report was faxed here and sent to Dr. Meeta Dhaliwal's office for review. 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 Patient states she was seen in [facility] 2 weeks ago for spotting during . She denies any bleeding since then. She denies any pain or cramping. She states she had an ultrasound done at [facility] that showed an intrauterine with an estimated due date of April 21. Patient signed a release of records form to obtain her records from her emergency room visit. Miscarriage precautions discussed. Depression 09/29/2011 05/18/2017 Overview: 07/02/2013 Pt has a history of depression diagnosed at age 16, and treated by a at [place]. She was treated for depression by Dr. [...] of this encounter (statuses as of 03/15/2022) [facility] History of Past illness Narrative* Problem Noted [...] well and IV iron recommended. Rosy Wilcox APRN.DIANAM Iron deficiency anemia 12/14/2017 0 Overview: 12/14/17 [...] age 16, and treated by a at [place]. She has been treated for depression after [...] thyroid disorder treated by Dr. White, an adjunct lecturer in [place]. Patient took herself off of levothyroxine at [...] pain 03/19/201211/12 Overview: 03/19/2012Faby was seen at [facility] on March 06 for left flank pain. An ultrasound was done that revealed an intrauterine at 11 weeks 2 days. Urinalysis was negative. Patient denies any pain since then. [facility] ER report was faxed here and sent to Dr. Meeta Dhaliwal's office for review. 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 Patient states she was seen in [facility] 2 weeks ago for spotting during . She denies any bleeding since then. She denies any pain or cramping. She states she had an ultrasound done at [facility] that showed an intrauterine with an estimated due date of April 21. Patient signed a release of records form to obtain her records from her emergency room visit. Miscarriage precautions discussed. Depression 09/29/2011 05/18/2017 Overview: 07/02/2013 Pt has a history of depression diagnosed at age 16, and treated by a DrJoann at [place]. She was treated for depression by Dr. [...] of this encounter (statuses as of 03/28/2022) [facility] of Past illness Narrative* Problem Noted [...] age 16, and treated by a at [place]. She has been treated for depression after [...] thyroid disorder treated by Dr. White, an adjunct lecturer in [place]. Patient took herself off of levothyroxine at [...] 0 11/12/2012 Overview: 03/19/2012Faby was seen at [facility] on March 06 for left flank pain. An ultrasound was done that revealed an intrauterine at 11 weeks 2 days. Urinalysis was negative. Patient denies any pain since then. [facility] ER report was faxed here and sent to Dr. Meeta Dhaliwal's office for review. 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 Patient states she was seen in [facility] 2 weeks ago for spotting during . She denies any bleeding since then. She denies any pain or cramping. She states she had an ultrasound done at [facility] that showed an intrauterine with an estimated due date of April 21. Patient signed a release of records form to obtain her records from her emergency room visit. Miscarriage precautions discussed. Depression 09/29/2011 05/18/2017 Overview: 07/02/2013 Pt has a history of depression diagnosed at age 16, and treated by a DrJoann at [place]. She was treated for depression by Dr. [...] of this encounter (statuses as of 03/04/2023) [facility] of Past illness Narrative* Problem Noted [...] age 16, and treated by a at [place]. She has been treated for depression after [...] thyroid disorder treated by Dr. White, an adjunct lecturer in [place]. Patient took herself off of levothyroxine at [...] trimester 06/20/2012 11/12/2012 Normal , first 06/20/2012 06/0 08/2012 Abnormal thyroid blood test 05/29/2012 05/18/2017 Overview: (TSH was 0.199) This may be normal in , but should be repeated 6-12 weeks post . Her free t3 and T4 were normal. History of left flank pain 03/19/2012 0 11/12/2012 Overview: 03/19/2012Faby was seen at [facility] on March 06 for left flank pain. An ultrasound was done that revealed an intrauterine at 11 weeks 2 days. Urinalysis was negative. Patient denies any pain since then. [facility] ER report was faxed here and sent to Dr. Meeta Dhaliwal's office for review. 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 Patient states she was seen in [facility] 2 weeks ago for spotting during . She denies any bleeding since then. She denies any pain or cramping. She states she had an ultrasound done at [facility] that showed an intrauterine with an estimated due date of April 21. Patient signed a release of records form to obtain her records from her emergency room visit. Miscarriage precautions discussed. Depression 09/29/2011 05/18/2017 Overview: 07/02/2013 Pt has a history of depression diagnosed at age 16, and treated by a DrJoann at [place]. She was treated for depression by Dr. [...] of this encounter (statuses as of 04/13/2023) [facility] of Past illness Narrative* Problem Noted [...] well and IV iron recommended. Rosy Wilcox APRN.DIANAM Iron deficiency anemia 12/14/201708/26 Overview: 12/14/17 - Iron unresponsive to PO iron supplement - will start IV iron at this time. Rosy Wilcox APRN.DIANAM Strain of unspecified muscle and tendon at ankle and foot level, right foot, initial encounter 10/13/2017 10/13/2017 Fall on same level from slip ping, tripping and stumbling without subsequent striking against object, initial encounter 10/13/20172017 History of depression 05/18/20172019 Overview: 07/01/2019Pt has a history of depression diagnosed at age 16, and treated by a at [place]. She has been treated for depression after [...] thyroid disorder treated by Dr. White, an adjunct lecturer in [place]. Patient took herself off of levothyroxine at [...] trimester 06/20/2012 11/12/2012 Normal , first 06/20/2012 06/0 08/2012 Abnormal thyroid blood test 05/29/2012 05/18/2017 Overview: (TSH was 0.199) This may be normal in , but should be repeated 6-12 weeks post . Her free t3 and T4 were normal. History of left flank pain 03/19/2012 0 11/12/2012 Overview: 03/19/2012Faby was seen at [facility] on March 06 for left flank pain. An ultrasound was done that revealed an intrauterine at 11 weeks 2 days. Urinalysis was negative. Patient denies any pain since then. [facility] ER report was faxed here and sent to Dr. Meeta Dhaliwal's office for review. 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 Patient states she was seen in [facility] 2 weeks ago for spotting during . She denies any bleeding since then. She denies any pain or cramping. She states she had an ultrasound done at [facility] that showed an intrauterine with an estimated due date of April 21. Patient signed a release of records form to obtain her records from her emergency room visit. Miscarriage precautions discussed. Depression 09/29/2011 05/18/2017 Overview: 07/02/2013 Pt has a history of depression diagnosed at age 16, and treated by a DrJoann at [place]. She was treated for depression by Dr. [...] of this encounter (statuses as of 05/01/2023) [facility] of Past illness Narrative* Problem Noted [...] age 16, and treated by a at [place]. She has been treated for depression after [...] a day per patient report. Rosy Wilcox APRN.CNDelilah December 25, 2013 severe anemia Hg * [...] thyroid disorder treated by Dr. White, an adjunct lecturer in [place]. Patient took herself off of levothyroxine at [...] 0 11/12/2012 Overview: 03/19/2012Faby was seen at [facility] on March 06 for left flank pain. An ultrasound was done that revealed an intrauterine at 11 weeks 2 days. Urinalysis was negative. Patient denies any pain since then. [facility] ER report was faxed here and sent to Dr. Meeta Dhaliwal's office for review. 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 Patient states she was seen in [facility] 2 weeks ago for spotting during . She denies any bleeding since then. She denies any pain or cramping. She states she had an ultrasound done at [facility] that showed an intrauterine with an estimated due date of April 21. Patient signed a release of records form to obtain her records from her emergency room visit. Miscarriage precautions discussed. Depression 09/29/2011 05/18/2017 Overview: 07/02/2013 Pt has a history of depression diagnosed at age 16, and treated by a at [place]. She was treated for depression by Dr. [...] of this encounter (statuses as of 05/06/2023) [facility] of Past illness Narrative* Problem Noted [...] IV iron at this time. Rosy Wilcox APRN.KATTY Strain of unspecified muscle and tendon at ankle and foot level, right foot, initial encounter 10/13/2017 10/13/2017 Fall on same level from slip ping, tripping and stumbling without subsequent striking against object, initial encounter 10/13/20172017 History of depression 05/18/20172019 Overview: 07/01/2019Pt has a history of depression diagnosed at age 16, and treated by a at [place]. She has been treated for depression after [...] a day per patient report. Rosy Wilcox APRN.KATTY December 25, 2013 severe anemia Hg * recommend iron supplement prescription repeat cbc in 1 month Dori Guerra MD February 02, 2016 Signif. anemia, fe low. Recommend FE bid, hasn't been taking this or PNV. Consider hematology consult to consider IV fe. See result note. Asia Wynn MD Supervision of other high-ri sk (V23.89) 08/13/2013 05/18/2017 Last Assessment & Plan: [...] thyroid disorder treated by Dr. White, an adjunct lecturer in [place]. Patient took herself off of levothyroxine at [...] 0 11/12/2012 Overview: 03/19/2012She was seen at [facility] on March 06 for left flank pain. An ultrasound was done that revealed an intrauterine at 11 weeks 2 days. Urinalysis was negative. Patient denies any pain since then. [facility] ER report was faxed here and sent to Dr. Meeta Dhaliwal's office for review. 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 Patient states she was seen in [facility] 2 weeks ago for spotting during . She denies any bleeding since then. She denies any pain or cramping. She states she had an ultrasound done at [facility] that showed an intrauterine with an estimated due date of April 21. Patient signed a release of records form to obtain her records from her emergency room visit. Miscarriage precautions discussed. Depression 09/29/2011 05/18/2017 Overview: 07/02/2013 Pt has a history of depression diagnosed at age 16, and treated by a DrJoann at [place]. She was treated for depression by Dr. [...] as of this encounter (statuses as of 07/21/2023) [facility] History of Past illness Narrative* Problem Noted [...] 16, and treated by a DrJoann at [place]. She has been treated for depression after [...] a day per patient report. Rosy Wilcox APRN.CNDelilah December 25, 2013 severe anemia Hg * [...] thyroid disorder treated by Dr. White, an adjunct lecturer in [place]. Patient took herself off of levothyroxine at [...] left flank pain 03/19/2012 0 11/12/2012 Overview: 03/19/2012Ngoce was seen at [facility] on March 06 for left flank pain. An ultrasound was done that revealed an intrauterine at 11 weeks 2 days. Urinalysis was negative. Patient denies any pain since then. [facility] ER report was faxed here and sent to Dr. Meeta Dhaliwal's office for review. 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 Patient states she was seen in [facility] 2 weeks ago for spotting during . She denies any bleeding since then. She denies any pain or cramping. She states she had an ultrasound done at [facility] that showed an intrauterine with an estimated due date of April 21. Patient signed a release of records form to obtain her records from her emergency room visit. Miscarriage precautions discussed. Depression 09/29/2011 05/18/2017 Overview: 07/02/2013 Pt has a history of depression diagnosed at age 16, and treated by a DrJoann at [place]. She was treated for depression by Dr. [...] as of this encounter (statuses as of 07/21/2023) [facility] History of Past illness Narrative* Problem Noted [...] age 16, and treated by a at [place]. She has been treated for depression after [...] thyroid disorder treated by Dr. White, an adjunct lecturer in [place]. Patient took herself off of levothyroxine at [...] trimester 06/20/2012 11/12/2012 Normal , first 06/20/2012 06/0 08/2012 Abnormal thyroid blood test 05/29/2012 05/18/2017 Overview: (TSH was 0.199) This may be normal in , but should be repeated 6-12 weeks post . Her free t3 and T4 were normal. History of left flank pain 03/19/2012 0 11/12/2012 Overview: 03/19/2012Faby was seen at [facility] on March 06 for left flank pain. An ultrasound was done that revealed an intrauterine at 11 weeks 2 days. Urinalysis was negative. Patient denies any pain since then. [facility] ER report was faxed here and sent to Dr. Meeta Dhaliwal's office for review. 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 Patient states she was seen in [facility] 2 weeks ago for spotting during . She denies any bleeding since then. She denies any pain or cramping. She states she had an ultrasound done at [facility] that showed an intrauterine with an estimated due date of April 21. Patient signed a release of records form to obtain her records from her emergency room visit. Miscarriage precautions discussed. Depression 09/29/2011 05/18/2017 Overview: 07/02/2013 Pt has a history of depression diagnosed at age 16, and treated by a DrJoann at [place]. She was treated for depression by Dr. [...] as of this encounter (statuses as of 07/24/2023) [facility] History of Past illness Narrative* Problem Noted [...] age 16, and treated by a at [place]. She has been treated for depression after [...] thyroid disorder treated by Dr. White, an adjunct lecturer in [place]. Patient took herself off of levothyroxine at [...] trimester 06/20/2012 11/12/2012 Normal , first 06/20/2012 06/08/2012 Abnormal thyroid blood test 05/29/2012 05/18/2017 Overview: (TSH was 0.199) This may be normal in , but should be repeated 6-12 weeks post . Her free t3 and T4 were normal. History of left flank pain 03/19/2012 0 11/12/2012 Overview: 03/19/2012Faby was seen at [facility] on March 06 for left flank pain. An ultrasound was done that revealed an intrauterine at 11 weeks 2 days. Urinalysis was negative. Patient denies any pain since then. [facility] ER report was faxed here and sent to Dr. Meeta Dhaliwal's office for review. 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 Patient states she was seen in [facility] 2 weeks ago for spotting during . She denies any bleeding since then. She denies any pain or cramping. She states she had an ultrasound done at [facility] that showed an intrauterine with an estimated due date of April 21. Patient signed a release of records form to obtain her records from her emergency room visit. Miscarriage precautions discussed. Depression 09/29/2011 05/18/2017 Overview: 07/02/2013 Pt has a history of depression diagnosed at age 16, and treated by a DrJoann at [place]. She was treated for depression by Dr. [...] as of this encounter (statuses as of 07/26/2023) [facility] History of Past illness Narrative* Problem Noted [...] 16, and treated by a DrJoann at [place]. She has been treated for depression after [...] - patient on IV iron infusion. Rosy STEFANIE Wilcox.CNM 10/16/17 - Hgb = 9.9, patient continues [...] thyroid disorder treated by Dr. White, an adjunct lecturer in [place]. Patient took herself off of levothyroxine at [...] 0 11/12/2012 Overview: 03/19/2012Faby was seen at [facility] on March 06 for left flank pain. An ultrasound was done that revealed an intrauterine at 11 weeks 2 days. Urinalysis was negative. Patient denies any pain since then. [facility] ER report was faxed here and sent to Dr. Meeta Dhaliwal's office for review. 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 Patient states she was seen in [facility] 2 weeks ago for spotting during . She denies any bleeding since then. She denies any pain or cramping. She states she had an ultrasound done at [facility] that showed an intrauterine with an estimated due date of April 21. Patient signed a release of records form to obtain her records from her emergency room visit. Miscarriage precautions discussed. Depression 09/29/2011 05/18/2017 Overview: 07/02/2013 Pt has a history of depression diagnosed at age 16, and treated by a DrJoann at [place]. She was treated for depression by Dr. [...] as of this encounter (statuses as of 08/01/2023) [facility] History of Past illness Narrative* Problem Noted [...] age 16, and treated by a at [place]. She has been treated for depression after [...] Asia Wynn MD Supervision of other high-ri sk (V23.89) 08/13/2013 05/18/2017 Last Assessment & Plan: [...] thyroid disorder treated by Dr. White, an adjunct lecturer in [place]. Patient took herself off of levothyroxine at [...] trimester 06/20/2012 11/12/2012 Normal , first 06/20/2012 06/08/2012 Abnormal thyroid blood test 05/29/2012 05/18/2017 Overview: (TSH was 0.199) This may be normal in , but should be repeated 6-12 weeks post . Her free t3 and T4 were normal. History of left flank pain 03/19/2012 0 11/12/2012 Overview: 03/19/2012Ngoce was seen at [facility] on March 06 for left flank pain. An ultrasound was done that revealed an intrauterine at 11 weeks 2 days. Urinalysis was negative. Patient denies any pain since then. [facility] ER report was faxed here and sent to Dr. Meeta Dhaliwal's office for review. 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 Patient states she was seen in [facility] 2 weeks ago for spotting during . She denies any bleeding since then. She denies any pain or cramping. She states she had an ultrasound done at [facility] that showed an intrauterine with an estimated due date of April 21. Patient signed a release of records form to obtain her records from her emergency room visit. Miscarriage precautions discussed. Depression 09/29/2011 05/18/2017 Overview: 07/02/2013 Pt has a history of depression diagnosed at age 16, and treated by a at [place]. She was treated for depression by Dr. [...] as of this encounter (statuses as of 08/03/2023) [facility] History of Past illness Narrative* Problem Noted [...] age 16, and treated by a at [place]. She has been treated for depression after [...] thyroid disorder treated by Dr. White, an adjunct lecturer in [place]. Patient took herself off of levothyroxine at [...] 0 11/12/2012 Overview: 03/19/2012She was seen at [facility] on March 06 for left flank pain. An ultrasound was done that revealed an intrauterine at 11 weeks 2 days. Urinalysis was negative. Patient denies any pain since then. [facility] ER report was faxed here and sent to Dr. Meeta Dhaliwal's office for review. 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 Patient states she was seen in [facility] 2 weeks ago for spotting during . She denies any bleeding since then. She denies any pain or cramping. She states she had an ultrasound done at [facility] that showed an intrauterine with an estimated due date of April 21. Patient signed a release of records form to obtain her records from her emergency room visit. Miscarriage precautions discussed. Depression 09/29/2011 05/18/2017 Overview: 07/02/2013 Pt has a history of depression diagnosed at age 16, and treated by a DrJoann at [place]. She was treated for depression by Dr. [...] as of this encounter (statuses as of 08/09/2023) [facility] History of Past illness Narrative* Problem Noted [...] start IV iron at this time. Rosy Wilcxo APRN.CNM Strain of unspecified muscle and tendon at ankle and foot level, right foot, initial encounter 10/13/2017 10/13/2017 Fall on same level from slip ping, tripping and stumbling without subsequent striking against object, initial encounter 10/13/20172017 History of depression 05/18/20172019 Overview: 07/01/2019Pt has a history of depression diagnosed at age 16, and treated by a at [place]. She has been treated for depression after [...] thyroid disorder treated by Dr. White, an adjunct lecturer in [place]. Patient took herself off of levothyroxine at [...] trimester 06/20/2012 11/12/2012 Normal , first 06/20/2012 06/0 08/2012 Abnormal thyroid blood test 05/29/2012 05/18/2017 Overview: (TSH was 0.199) This may be normal in , but should be repeated 6-12 weeks post . Her free t3 and T4 were normal. History of left flank pain 03/19/2012 0 11/12/2012 Overview: 03/19/2012Faby was seen at [facility] on March 06 for left flank pain. An ultrasound was done that revealed an intrauterine at 11 weeks 2 days. Urinalysis was negative. Patient denies any pain since then. [facility] ER report was faxed here and sent to Dr. Meeta Dhaliwal's office for review. 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 Patient states she was seen in [facility] 2 weeks ago for spotting during . She denies any bleeding since then. She denies any pain or cramping. She states she had an ultrasound done at [facility] that showed an intrauterine with an estimated due date of April 21. Patient signed a release of records form to obtain her records from her emergency room visit. Miscarriage precautions discussed. Depression 09/29/2011 05/18/2017 Overview: 07/02/2013 Pt has a history of depression diagnosed at age 16, and treated by a at [place]. She was treated for depression by Dr. [...] as of this encounter (statuses as of 08/10/2023) [facility] History of Past illness Narrative* Problem Noted [...] age 16, and treated by a at [place]. She has been treated for depression after [...] thyroid disorder treated by Dr. White, an adjunct lecturer in [place]. Patient took herself off of levothyroxine at [...] 0 11/12/2012 Overview: 03/19/2012Faby was seen at [facility] on March 06 for left flank pain. An ultrasound was done that revealed an intrauterine at 11 weeks 2 days. Urinalysis was negative. Patient denies any pain since then. [facility] ER report was faxed here and sent to Dr. Meeta Dhaliwal's office for review. 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 Patient states she was seen in [facility] 2 weeks ago for spotting during . She denies any bleeding since then. She denies any pain or cramping. She states she had an ultrasound done at [facility] that showed an intrauterine with an estimated due date of April 21. Patient signed a release of records form to obtain her records from her emergency room visit. Miscarriage precautions discussed. Depression 09/29/2011 05/18/2017 Overview: 07/02/2013 Pt has a history of depression diagnosed at age 16, and treated by a DrJoann at [place]. She was treated for depression by Dr. [...] as of this encounter (statuses as of 08/11/2023) [facility] History of Past illness Narrative* Problem Noted [...] 16, and treated by a DrJoann at [place]. She has been treated for depression after [...] patient on IV iron infusion. Rosy Wilcox APRN.KATTY 10/16/17 - Hgb = 9.9, patient continues [...] thyroid disorder treated by Dr. White, an adjunct lecturer in [place]. Patient took herself off of levothyroxine at [...] 0 11/12/2012 Overview: 03/19/2012Faby was seen at [facility] on March 06 for left flank pain. An ultrasound was done that revealed an intrauterine at 11 weeks 2 days. Urinalysis was negative. Patient denies any pain since then. [facility] ER report was faxed here and sent to Dr. Meeta Dhaliwal's office for review. 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 Patient states she was seen in [facility] 2 weeks ago for spotting during . She denies any bleeding since then. She denies any pain or cramping. She states she had an ultrasound done at [facility] that showed an intrauterine with an estimated due date of April 21. Patient signed a release of records form to obtain her records from her emergency room visit. Miscarriage precautions discussed. Depression 09/29/2011 05/18/2017 Overview: 07/02/2013 Pt has a history of depression diagnosed at age 16, and treated by a DrJoann at [place]. She was treated for depression by Dr. [...] as of this encounter (statuses as of 08/14/2023) [facility] History of Past illness Narrative* Problem Noted [...] age 16, and treated by a at [place]. She has been treated for depression after [...] thyroid disorder treated by Dr. White, an adjunct lecturer in [place]. Patient took herself off of levothyroxine at [...] trimester 06/20/2012 11/12/2012 Normal , first 06/20/2012 06/0 08/2012 Abnormal thyroid blood test 05/29/2012 05/18/2017 Overview: (TSH was 0.199) This may be normal in , but should be repeated 6-12 weeks post . Her free t3 and T4 were normal. History of left flank pain 03/19/2012 0 11/12/2012 Overview: 03/19/2012She was seen at [facility] on March 06 for left flank pain. An ultrasound was done that revealed an intrauterine at 11 weeks 2 days. Urinalysis was negative. Patient denies any pain since then. [facility] ER report was faxed here and sent to Dr. Meeta Dhaliwal's office for review. 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 Patient states she was seen in [facility] 2 weeks ago for spotting during . She denies any bleeding since then. She denies any pain or cramping. She states she had an ultrasound done at [facility] that showed an intrauterine with an estimated due date of April 21. Patient signed a release of records form to obtain her records from her emergency room visit. Miscarriage precautions discussed. Depression 09/29/2011 05/18/2017 Overview: 07/02/2013 Pt has a history of depression diagnosed at age 16, and treated by a DrJoann at [place]. She was treated for depression by Dr. [...] as of this encounter (statuses as of 08/24/2023) [facility] History of Past illness Narrative* Problem Noted [...] age 16, and treated by a at [place]. She has been treated for depression after [...] patient on IV iron infusion. Rosy Wilcox APRN.CNDelilah 10/16/17 - Hgb = 9.9, patient continues to take iron supplements. Taking PNV and Ensure 3-4 drinks a day per patient report. Rosy Wilcox APRN.CNDelilah December 25, 2013 severe anemia Hg * [...] thyroid disorder treated by Dr. White, an adjunct lecturer in [place]. Patient took herself off of levothyroxine at [...] 0 11/12/2012 Overview: 03/19/2012Faby was seen at [facility] on March 06 for left flank pain. An ultrasound was done that revealed an intrauterine at 11 weeks 2 days. Urinalysis was negative. Patient denies any pain since then. [facility] ER report was faxed here and sent to Dr. Meeta Dhaliwal's office for review. 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 Patient states she was seen in [facility] 2 weeks ago for spotting during . She denies any bleeding since then. She denies any pain or cramping. She states she had an ultrasound done at [facility] that showed an intrauterine with an estimated due date of April 21. Patient signed a release of records form to obtain her records from her emergency room visit. Miscarriage precautions discussed. Depression 09/29/2011 05/18/2017 Overview: 07/02/2013 Pt has a history of depression diagnosed at age 16, and treated by a DrJoann at [place]. She was treated for depression by Dr. [...] as of this encounter (statuses as of 09/01/2023) [facility] History of Past illness Narrative* Problem Noted [...] Treating again with macrobid d/t patient allergies. Jnes Kendrick MD Request for sterilization 08/27/2019 Overview: [...] age 16, and treated by a at [place]. She has been treated for depression after [...] thyroid disorder treated by Dr. White, an adjunct lecturer in [place]. Patient took herself off of levothyroxine at [...] 0 11/12/2012 Overview: 03/19/2012Faby was seen at [facility] on March 06 for left flank pain. An ultrasound was done that revealed an intrauterine at 11 weeks 2 days. Urinalysis was negative. Patient denies any pain since then. [facility] ER report was faxed here and sent to Dr. Meeta Dhaliwal's office for review. 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 Patient states she was seen in [facility] 2 weeks ago for spotting during . She denies any bleeding since then. She denies any pain or cramping. She states she had an ultrasound done at [facility] that showed an intrauterine with an estimated due date of April 21. Patient signed a release of records form to obtain her records from her emergency room visit. Miscarriage precautions discussed. Depression 09/29/2011 05/18/2017 Overview: 07/02/2013 Pt has a history of depression diagnosed at age 16, and treated by a DrJoann at [place]. She was treated for depression by Dr. [...] as of this encounter (statuses as of 09/05/2023) [facility] Mar Mendes [facility] August 21, 2023 5:17pm Note Date/Time August 21, 2023 5:0 0pm [facility] Medical Records Department [address] [place] [address] Discharge Summary 08/21/23 1659 MR#: [id number] Acct: [id number] Name: CAROLA HARDING Rep #:[id number] : 1990 32 From: Mar Mendes DO PCP: Dr. Jamari Zhang DO Status:AD IN Location: [place] [id number] Providers Date of Admission: 08/19/23 Date of Discharge: 08/21/23 Primary Care Physician: Dr. Jamari Zhang DO Consultations 08/18/23 13:31 Consult: Cardiology Routine Consulting Provider: Wilbert Vogel Reason for Consult: HFrEF with low BP's EMERGENT Consult: No MD Notified: Yes Date Notified: 08/18/23 Time Notified: 13:37 Method of Notification: Text 08/18/23 17:23 Consult: Gastroenterology Routine Consulting Provider: Andi Callahan Reason for Consult: Concern for malabsorption syndrome EMERGENT Consult: No MD Notified: Yes Date Notified: 08/18/23 Time Notified: 17:48 Method of Notification: Text Reason For Visit: INTRACTABLE N/V, MALAISE, ABDOMINAL CRAMPING Diagnosis Discharge Diagnosis (1) Acute hypokalemia: Status: Acute Code(s): E87.6 - Hypokalemia (2) Dehydration: Status: Acute Code(s): E86.0 - Dehydration (3) Hypotension: Status: Acute Code(s): I95.9 - Hypotension, unspecified (4) Severe malnutrition: Status: Acute Code(s): E43 - Unspecified severe protein-calorie malnutrition Medications at Discharge Home Medications ascorbic acid (vitamin C) 500 mg tablet (Vitamin C) 500 mg PO BID supplement 07/13/23 ferrous sulfate 142 mg (45 mg iron) tablet,extended release (Slow Release Iron) 142 mg PO BID iron deficiency 07/13/23 guaifenesin 1 tab PO Q6H PRN cold symptoms 07/13/23 sertraline 25 mg tablet 25 mg PO DAILY 07/13/23 metoprolol tartrate 25 mg tablet 12.5 mg (1/2 x 25 mg) PO BID 30 days #30 tabs 08/08/23 spironolactone 25 mg tablet 12.5 mg (1/2 x 25 mg) PO DAILY 30 days #15 tabs 08/08/23 ondansetron 4 mg disintegrating tablet 4 mg PO Q6H PRN nausea and vomiting #12 tabs 08/17/23 pantoprazole 40 mg tablet,delayed release (Protonix) 40 mg PO DAILY #30 tabs 08/21/23 Hospital Course Operations None Procedures 2-D Echocardiogram, Colonoscopy, EGD and - (Chest x-ray, EKG) Summary of Care Provided Minutes Spent on Discharge: 38 Hospital Course: Ms Harding is a 32-year-old white female who presented to the emergency departmentat [facility] on 08/17/2023 with about 24 hours of worsening fatigue, malaise, then acute onset of nausea and vomiting with intractable generalized abdominal cramping. She had no diarrhea, fever or chills. The abdominal symptoms started about 12 hours prior to presentation. She had been running errands in [place] and following this became more fatigued and weak. Workup in the emergency department showed a temperature of 98.1, heart rate 104,blood pressure initially was 79/57, respiratory rate was 16 oxygen saturations were 97% on room air. Her CBC was overall unremarkable. Her CMP showed hypokalemia with potassium of 3.2, normal hepatic profile and a lipase of 20. Her serum test was negative. Urinalysis showed ketones and occult blood but was negative for nitrites and there was no evidence of UTI. She was given IV fluids, potassium, Zofran, and Toradol in the emergency department and admitted to the medical floor for ongoing workup. 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 She last saw Dr. Vogel on 08/08/2023 and had been maintained on Aldactone and metoprolol. These medications were held on admission due to her hypotension. Cardiology was consulted and indicated she had been very difficult to treat due to her hemodynamic instability at baseline. Her exam on admission was consistent with heart failure having a S3 gallop and JVD with some crackles in her lung base however chest x-ray was clear and her BNP was only 5. This is better and per discussion with cardiology they would like me to hold her Aldactone metoprolol. Outpatient follow-up to see cardiology has been scheduled for the end of this month and we strongly advise follow-up. There is concern that this could also be nutritionally mediated rather than virally mediated and ongoing outpatient follow-up is required. She does have significant malnutrition and GI was consulted for further evaluation. Echocardiogram done on 08/19/2023 showed echocardiogram done on 08/19/2023 showed anEF of 40% with mild to moderate global hypokinesis of the left ventricle and overall minimal improvement in her LV function. GI was consulted and a biochemical workup was initiated and pending at the time of discharge. EGD and colonoscopy were done today. EGD showed a normal esophagus with an erythematousmucosa in the gastric body which was biopsied and no gross lesions up to the second portion of the duodenum which was also biopsied. Colonoscopy showed fairprep with stool in the rectum, rectosigmoid colon, sigmoid colon, transverse colon and cecum. There was friability noted with contact bleeding in the terminal ileum and this was biopsied. It was recommended she start Protonix 40 mg p.o. twice daily and schedule outpatient follow-up to be seen for biopsy results and ongoing plan of care. Again extensive biochemical workup was pending at the time of discharge and will not be resulted for several days. Case was discussed with Dr. Callahan and he felt comfortable for discharge as longas she could eat without difficulty. The patient was anxious to go home and atewithout any difficulty. The plan of care was discussed with the patient and herhusband by Dr. Callahan and previously by Dr. Vogel. She was discharged in stable condition on 08/21/2023. Discharge diagnoses: Abdominal pain-resolved Nausea and vomiting-resolved Acute rhinovirus infection Acute on chronic hypotension-resolved Cardiomyopathy--> nutritionally versus virally mediated Hypokalemia-replaced Severe malnutrition Chronic iron deficiency anemia Depression Physical Exam Narrative Patient states she is feeling well. Was able to eat and drink yesterday but n.p.o. after midnight for colonoscopy and EGD today. Patient states she would like to go home and Dr. Callahan told her she could do so today as long as she wasable to take p.o. without any difficulty. Const alert, oriented x3, no apparent distress and no limitations; Negative for average body habitus, healthy appearing or well nourished Constitutional Narrative: Young, thin, white female, sitting up in bed, appears malnourished, comfortable,nontoxic General Appearance: cooperative, comfortable and well kempt HEENT normocephalic, head/scalp atraumatic, hearing grossly normal bilaterally and moist oral mucous membranes HEENT Narrative: Edentulous, Mallampati is 1, no thrush Eyes PERRL, EOMs intact bilaterally and conjunctivae normal Eyes Narrative: No scleral icterus Neck no lymphadenopathy and supple Neck Narrative: Trachea midline, no thyroid enlargement Resp normal respiratory effort, no retractions, no use of accessory muscles and clearto auscultation bilaterally Auscultation: Negative for rales, rhonchi or wheezes Cardio regular rate, regular rhythm, S1 normal heart sound, S2 normal heart sound, no murmurs, no rub, no gallops and no clicks GI normal to inspection, nondistended, normoactive bowel sounds, soft to palpation and non-tender GI Narrative: Scaphoid abdomen Extremity no clubbing, cyanosis or edema Extremity Narrative: Decreased lean muscle mass, pedal pulses are 2+ Skin no rashes or lesions noted, no wounds, skin turgor normal and no jaundice Neuro oriented x3, moves all extremities and no focal motor deficits Speech: speech normal Psych Psych Narrative: Affect is flat and mood seems depressed Medical Records Data Medical Nutrition Assessment Dietitian: Malnutrition Criteria Met Start: 08/20/23 14:17 Freq: Status: Active Protocol: Document 08/20/23 14:18 RMA (Rec: 08/20/23 14:18 RMA [id number]) Nutrition Malnutrition Evidence of Malnutrition Exists Yes Malnutrition (severe): Acute Illness/Injury,Chronic Evidenced By Suboptimal Energy Intake ( Severe),Physical Changes ( Severe) Intake Problem Inadequate Oral Intake Etiology related to altered GI function pending endoscopy upper/lower tomorrow; N/V/abd pain Signs/Symptoms as evidenced by clear liquids/ NPO and PO meeting less than 50% estimated nutrition needs x 1 week Status Active Problem Clinical Problem Acute Disease or Injury Related Malnutrition Etiology severe protein-calorie malnutrition in the context of acute on chronic disease related to altered GI function and inadequate oral intake Signs/Symptoms as evidenced by BMI 17.1, moderate to severe physical signs of muscle/fat depletion noted in the face, clavicle, orbitals, arms and legs in addition to inadequate oral intake meeting less than 50% estimated nutrition needs x 1 week Status Active Problem Recommendation Dietitian Recommendations/Changes Will add ensure clear 240mL TID w/ meals while on clear liquid diet. Adjust ONS as diet advanced s/ p endoscopy. Recommend advance PO as tolerated to regular/no added salt diet. Diet instruction as indicated pending results of EGD/ Colonoscopy tomorrow. Weight / BMI Weight Weight: 39.009 kg Body Mass Index (BMI) 16.2 ABG / Lab / Microbiology Data 08/21/23 06:15 08/21/23 11:37 Laboratory: Laboratory Results - last 24 hr 08/19/23 16:30: Vitamin B12 574 08/21/23 06:15: WBC 3.6 L, RBC 4.00 L, Hgb 10.0 L, Hct 33.4 L, MCV 83.5, MCH 25.0 L, MCHC 29.9 L, RDW Std Deviation 65.9 H, RDW Coeff of Vandana 22.1 H, Plt Count 253, MPV 8.6, Differential Comment SCANNED, Sodium 144, Potassium 2.8 L, Chloride 110 H, Carbon Dioxide 28.0, Anion Gap 6, BUN 4 L, Creatinine 0.58, Estim Creat Clear Calc 89.47, Est GFR (MDRD) Af Amer 153, Est GFR (MDRD) Non-Af 127, BUN/Creatinine Ratio 6.9 L, Glucose 90, Calcium 8.2 L, Phosphorus 2.6, Magnesium 2.0 08/21/23 11:37: Potassium 3.4 L Microbiology: Microbiology 08/18/23 00:13 Mucosa - Nasopharyngeal Respiratory Panel (PCR) - Final Rhinovirus D/C Instructions Discharge Diet: No restrictions Weight Bearing Status: Full weight bearing Meaningful Use Info Meaningful Use Diagnoses (Choose all that apply): None applicable Discharge Plan Admission Admit Date/Time: 08/19/23 16:46 Primary Reason for Your Visit: nausea/vomiting and weakness Attending Provider: Mar Mendes Primary Care Provider: Jamari Zhang Consulting Providers: Amy Villalba; Wilbert Vogel; London,Andi; Nitish Freire Instructions Additional Instructions / Restrictions: 1. Hold metoprolol and aldactone 2. Please see cardiology and GI as scheduled below 3. Please call your primary care physician tomorrow and set up an outpatient 4. Please call your PCP and ask for a repeat Basic Metabolic Profile to be performed in 1 week to recheck your potassium level which was replaced while youare hospitalized Discharge Orders/Prescriptions Prescriptions: New ondansetron 4 mg tablet,disintegrating 4 mg PO Q6H PRN (Reason: nausea and vomiting) Qty: 12 0RF pantoprazole [Protonix] 40 mg tablet,delayed release (DR/EC) 40 mg PO DAILY Qty: 30 1RF Continued ascorbic acid (vitamin C) [Vitamin C] 500 mg tablet 500 mg PO BID Slow Release Iron 142 mg (45 mg iron) tablet extended release 142 mg PO BID sertraline 25 mg tablet 25 mg PO DAILY guaifenesin [Mucinex] 1 tab PO Q6H PRN (Reason: cold symptoms) Held metoprolol tartrate 25 mg tablet 12.5 mg PO BID 30 Days Qty: 30 1RF Hold Instructions: Until you follow-up with cardiology and they instruct you to restart it spironolactone 25 mg tablet 12.5 mg PO DAILY 30 Days Qty: 15 1RF Hold Instructions: Until you follow-up with cardiology and they instruct you to restart it Discontinued ondansetron 4 mg tablet,disintegrating 4 mg PO Q8H PRN PRN (Reason: Nausea) Qty: 20 0RF Referrals / Follow Up: Jamari Zhang DO [Primary Care Provider] - Within 1 Week Wilbert Vogel MD [Med Staff - Active Staff] - 09/01/23 11:00 am Andi Callahan DO [Med Staff - Active Staff] - 09/11/23 11:00 am Disposition Disposition (needs filled in before D/C Order can be placed): Home, Self Care Charges/Coding Visit Charges Inpatient E&M: 34298 Disch Hosp >30min 08/21/23 1717 <Electronically signed by Mar Mendes DO> Cosigner Signature (if applicable): CC: Dr. Jamari Zhang DO; Dr. Mar Mendes DO; Dr. Wilbert Vogel MD; Andi Callahan DO~ Signed [facility] Work Phone: Evaluation note* Diagnosis Generalized abdominal pain- Primary Abdominal pain, generalized Cough Underweight documented in this encounter [facility] note* Diagnosis Generalized abdominal pain- Primary Abdominal pain, generalized documented in this encounter [facility] noteNo assessment information availableWSelect [facility] Work Phone: [facility]* Diagnosis Closed displaced fracture of shaft of right clavicle with routine healing, subsequent encounter- Primary 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 [facility] [place] [facility]* Diagnosis 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, subsequent encounter documented in this encounter [facility] note* Diagnosis Acute non-recurrent pansinusitis- Primary documented in this encounter [facility] note* Diagnosis Sinobronchitis- Primary Unspecified sinusitis (chronic) documented in this encounter [facility] note* Diagnosis Iron deficiency anemia, unspecified iron deficiency anemia type- Primary documented in this encounter [facility] note* Diagnosis Iron deficiency anemia, unspecified iron deficiency anemia type- Primary Vaginal discharge Leukorrhea, not specified as infective Menstrual period late Other disorder of menstruation and other abnormal bleeding from female genital tract Acute cough Anxiety with depression Fatigue, unspecified type documented in this encounter [facility] note* Diagnosis Bacterial sinusitis- Primary Unspecified sinusitis (chronic) documented in this encounter [facility] note* Diagnosis Onset Date Resolution Status Influenza B acute Myocarditis acute [facility] Work [facility]: [facility] [place] [facility]* Diagnosis Hospital discharge follow-up- Primary Other follow-up examination Iron deficiency anemia, unspecified iron deficiency anemia type Leg cramps Cramp of limb 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 Hypokalemia Hypopotassemia Elevated TSH Nonspecific abnormal results of thyroid function study Subacute cough Cough Influenza B Influenza with other respiratory manifestations documented in this encounter [facility] note* Diagnosis Iron deficiency anemia, unspecified iron deficiency anemia type- Primary Anemia, unspecified type 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 Hospital discharge follow-up Other follow-up examination documented in this encounter [facility] note* Diagnosis Iron deficiency anemia, unspecified iron deficiency anemia type- Primary History of anemia Personal history of diseases of blood and blood-forming organs documented in this encounter [facility] note* Diagnosis Iron deficiency anemia, unspecified iron deficiency anemia type- Primary History of anemia Personal history of diseases of blood and blood-forming organs documented [facility] [place] [facility]* Diagnosis Iron deficiency anemia, unspecified iron deficiency anemia type- Primary History of anemia Personal history of diseases of blood and blood-forming organs documented in this encounter [facility] note* Diagnosis Iron deficiency anemia, unspecified iron deficiency anemia type- Primary History of anemia Personal history of diseases of blood and blood-forming organs documented in this encounter [facility] note* Diagnosis Onset Date Resolution Status Cardiomyopathy acute Myocarditis acute Anemia acute Cardiomyopathy acute Myocarditis acute Abdominal pain acute Acute hypokalemia acute Dehydration acute Nausea and vomiting acute [facility] Work Phone: Evaluation note* Diagnosis Onset Date Resolution Status Cardiomyopathy acute Myocarditis acute Anemia acute Cardiomyopathy acute Myocarditis acute Abdominal pain acute Acute hypokalemia acute Anemia acute Cardiomyopathy acute Dehydration acute Hypotension acute Nausea and vomiting acute Severe malnutrition acute [facility] Work Phone: Evaluation note* Diagnosis Iron deficiency anemia, unspecified iron deficiency anemia type- Primary History of anemia Personal history of diseases of blood and blood-forming organs documented in this encounter [facility] note* Diagnosis Iron deficiency anemia, unspecified iron deficiency anemia type- Primary 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 Menorrhagia with irregular cycle Excessive or frequent menstruation Protein-calorie malnutrition, unspecified severity (HCC) documented in this encounter [facility] note* Diagnosis 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- Primary Underweight Iron deficiency anemia, unspecified iron deficiency anemia type Elevated TSH Nonspecific abnormal results of thyroid function study Fatigue, unspecified type documented in this encounter [facility] note* Diagnosis Subacute cough Cough documented in this encounter [facility] note* Diagnosis URI, acute- Primary Acute upper respiratory infections of unspecified site documented in this encounter [facility] note* Diagnosis Sore throat- Primary Acute pharyngitis Generalized abdominal pain Abdominal pain, generalized Acute gastroenteritis Other and unspecified noninfectious gastroenteritis and colitis documented in this encounter [facility] note* Diagnosis Chronic cough- Primary Cough Iron deficiency anemia, unspecified iron deficiency anemia type Underweight Mild protein-calorie malnutrition (HCC) Malnutrition of mild degree documented in this encounter [facility] note* Diagnosis Iron deficiency anemia, unspecified iron deficiency anemia type documented in this encounter [facility] note* Diagnosis History of anemia- Primary Personal history of diseases of blood and blood-forming organs Iron deficiency anemia, unspecified iron deficiency anemia type documented in this encounter [facility] note* Diagnosis History of anemia- Primary Personal history of diseases of blood and blood-forming organs Iron deficiency anemia, unspecified iron deficiency anemia type [facility] [place] [facility]* Diagnosis Iron deficiency anemia, unspecified iron deficiency anemia type- Primary History of anemia Personal history of diseases of blood and blood-forming organs [facility] [place] [facility]* Diagnosis History of anemia- Primary Personal history of diseases of blood and blood-forming organs Iron deficiency anemia, unspecified iron deficiency anemia type [facility] [place] [facility]* Diagnosis Chronic cough Cough [facility] [place] [facility]* Diagnosis History of anemia- Primary Personal history of diseases of blood and blood-forming organs Iron deficiency anemia, unspecified iron deficiency anemia type [facility] [place] [facility]* Diagnosis Iron deficiency anemia, unspecified iron deficiency anemia type- Primary Protein-calorie malnutrition, unspecified severity (HCC) 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 [facility] [place] [facility]* Diagnosis Severe episode of recurrent major depressive disorder, 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 LIGIA (generalized anxiety disorder) Generalized anxiety disorder Iron deficiency anemia, unspecified iron deficiency anemia type Anemia, unspecified type 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 Encounter for lipid screening for cardiovascular disease Screening for lipoid disorders Screening for diabetes mellitus Screening for depression Encounter for screening examination for other mental health and behavioral disorders History of hyperthyroidism Personal history of other endocrine, metabolic, and immunity disorders Underweight (BMI < 18.5) [facility] [place] [facility]* Diagnosis History of thyroid disorder- Primary [facility] Discharge instructions Additional Instructions Appears to have failed screw and hardware mid clavicle previously performed by Dr. Wilbert Quinn. Call for follow-up with orthopedic office for outpatient management.[facility] Work Phone: Hospital Discharge instructions Additional Instructions Your labs looked improved other than low potassium. I prescribed Zofran to take as needed for nausea and vomiting. Stay hydrated. If symptoms worsen return to ER.[facility] Work Phone: Reason for referral (narrative)* Diagnostic Procedure Only (Routine) - Authorized Specialty Diagnoses / Procedures Referred By Contnancy t Referred To Contact US IMAGING Diagnoses Generalized abdominal pain Procedures US ABD RT UPPER QUADRANT US ABDOMINAL REAL TIME W/IMAGE LIMITED Marlyn Bynum, INK TECHNICIAN.VETERINARY TOXICOLOGIST [address] [place] [address] Us Imaging Referral ID Status Reason Start Date Expiration Date Visits Requested Visits Authorized [id number] Authorized Auto-Generat ed Referral 09/06/2021 10/06/2022 1 1 * Consult, Test, Treat (Routine) - Authorized Specialty Diagnoses / Procedures Referred By Contac t Referred To Contact Nutrition Diagnoses Underweight Procedures CONSULT TO NUTRITION THERAPY OFFICE/OUTPATIENT [facility] 60-74 MINUTES Marlyn Bynum APRN.VETERINARY TOXICOLOGIST [address] [place] [address] Referral ID Status Reason Start Date Expiration Date Visits Requested Visits Authorized [id number] Authorized PCP Requested Referral 09/06/2021 09/06/2022 1 1 [facility] for referral (narrative)* Diagnostic Procedure Only (Routine) - Closed Specialty Diagnoses / Procedures Referred By Contnancy t Referred To Contact XR IMAGING Diagnoses Closed displaced fracture of shaft of right clavicle with routine healing, subsequent encounter Procedures XR SHOULDER GENERAL 3V OR MORE AP/TRUE AP/OTHER RIGHT RADEX SHOULDER COMPLETE MINIMUM 2 VIEWS Tong Mederos MD [address] [place] [id number] Xr Imaging Referral ID Status Reason Start Date Expiration Date V isits Requested Visits Authorized [id number] Closed Auto-Generate d Referral 03/14/2022 04/13/2023 1 1 [facility] for visit Narrative* Diagnostic Procedure Only (Routine) - Closed Specialty Diagnoses / Procedures Referred By Contac t Referred To Contact XR IMAGING Diagnoses Closed displaced fracture of shaft of right clavicle with routine healing, subsequent encounter Procedures XR SHOULDER GENERAL 3V OR MORE AP/TRUE AP/OTHER RIGHT RADEX SHOULDER COMPLETE MINIMUM 2 VIEWS Tong Mederos MD [address] [place] [address] Xr Imaging Referral ID Status Reason Start Date Expiration Date V isits Requested Visits Authorized [id number] Closed Auto-Generate d Referral 03/14/2022 04/13/2023 1 1 [facility] Summary Purpose Family History No Family History Records Found Relationship Condition Age at Onset Recorded Date/T asif mother Diabetes mellitus Unknown Cardiac disease Unknown Hypertension Unknown Cerebrovascular accident (CVA) Unknown Hyperlipidemia Unknown father Osteoarthritis Unknown Advance Directives No Advanced Directives Records Found Advance Directive Response Recorded Date/ Time Advance Directives No May 20, 2014 10:47am Living Will No March 02, 2022 5:46pm Power of Rehabilitation Therapy Technician No February 5:46pm Advance Directive Response Recorded Date/ Time Advance Directives No May 20, 2014 10:47am Living Will No March 08, 2022 11:55am Power of Rehabilitation Therapy Technician No February 11:55am Advance Directive Response Recorded Date/ Time Advance Directives No May 20, 2014 10:47am Living Will No February 06 3 8:15pm Power of Rehabilitation Therapy Technician No February 06, 023 8:15pm Advance Directive Response Recorded Date/ Time Advance Directives No May 20, 2014 9:47am Living Will No July 16 5:22pm Power of Rehabilitation Therapy Technician No July 16, 2023 5:22pm Advance Directive Response Recorded Date/ Time Advance Directives No May 20, 2014 9:47am Living Will No August 17, 2023 6:08pm Power of Rehabilitation Therapy Technician No August 16 6:08pm Advance Directive Response Recorded Date/ Time Advance Directives No May 20, 2014 10:47am Living Will No August 18, 2023 12:21am Power of Rehabilitation Therapy Technician No August 17 12:21am Chief Complaint and Reason for Visit Chief Complaint ABD PAIN Chief Complaint ABD PAIN COLLAR BONE Chief Complaint FOOT Chief Complaint general illness ELEVATED TROPONIN WITH SUSPECTED MYOCARDITIS; Reason for Visit Influenza B Myocarditis Chief Complaint general illness ELEVATED TROPONIN WITH SUSPECTED MYOCARDITIS; ELEVATED TROPONIN WITH SUSPECTED MYOCARDITIS; ELEVATED TROPONIN WITH SUSPECTED MYOCARDITIS; ELEVATED TROPONIN WITH SUSPECTED MYOCARDITIS; ELEVATED TROPONIN WITH SUSPECTED MYOCARDITIS; S/P [facility] 07/18 INTRACTABLE N/V, MALAISE, ABDOMINAL CRAMPING Reason for Visit Cardiomyopathy Myocarditis Anemia Cardiomyopathy Myocarditis Abdominal pain Acute hypokalemia Dehydration Nausea and vomiting Chief Complaint general illness ELEVATED TROPONIN WITH SUSPECTED MYOCARDITIS; ELEVATED TROPONIN WITH SUSPECTED MYOCARDITIS; ELEVATED TROPONIN WITH SUSPECTED MYOCARDITIS; ELEVATED TROPONIN WITH SUSPECTED MYOCARDITIS; ELEVATED TROPONIN WITH SUSPECTED MYOCARDITIS; S/P [facility] 07/18 INTRACTABLE N/V, MALAISE, ABDOMINAL CRAMPING INTRACTABLE N/V, MALAISE, ABDOMINAL CRAMPING INTRACTABLE N/V, MALAISE, ABDOMINAL CRAMPING INTRACTABLE N/V, MALAISE, ABDOMINAL CRAMPING INTRACTABLE N/V, MALAISE, ABDOMINAL CRAMPING INTRACTABLE N/V, MALAISE, ABDOMINAL CRAMPING INTRACTABLE N/V, MALAISE, ABDOMINAL CRAMPING INTRACTABLE N/V, MALAISE, ABDOMINAL CRAMPING INTRACTABLE N/V, MALAISE, ABDOMINAL CRAMPING INTRACTABLE N/V, MALAISE, ABDOMINAL CRAMPING Reason for Visit Cardiomyopathy Myocarditis Anemia Cardiomyopathy Myocarditis Abdominal pain Acute hypokalemia Anemia Cardiomyopathy Dehydration Hypotension Nausea and vomiting Severe malnutrition Reason for Referral Specialty Diagnoses / Procedures Referred By Prince dupont Referred To Contact [facility] Diagnoses Closed displaced fracture of shaft of right clavicle with routine healing, subsequent encounter 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 Procedures CONSULT TO PHYSICAL THERAPY PHYSICAL THERAPY EVALUATION HIGH COMPLEX 45 MINS Tong Mederos MD [address] [place] [address] [facility] [place] [address] Referral ID Status Reason Start Date Expiration Date Visits Requested Visits Authorized [id number] Pending Review Auto-Generat ed Referral 03/14/2022 03/14/2023 1 1 Specialty Diagnoses / Procedures Referred By Prince dupont Referred To Contact XR IMAGING Diagnoses Closed displaced fracture of shaft of right clavicle with routine healing, subsequent encounter Procedures XR SHOULDER GENERAL 3V OR MORE AP/TRUE AP/OTHER RIGHT RADEX SHOULDER COMPLETE MINIMUM 2 VIEWS Tong Mederos MD [address] [place] [address] Xr Imaging Referral ID Status Reason Start Date Expiration Date V isits Requested Visits Authorized [id number] Closed Auto-Generate d Referral 03/14/2022 04/13/2023 1 1 Specialty Diagnoses / Procedures Referred By Prince dupont Referred To Contact Hematology Diagnoses Iron deficiency anemia, unspecified iron deficiency anemia type 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 Hospital discharge follow-up Procedures CONSULT TO HEMATOLOGY OFFICE/OUTPATIENT [facility] 60 MINUTES Marlyn Estrada APRN.VETERINARY TOXICOLOGIST [address] [place] [address] Referral ID Status Reason Start Date Expiration Date Visits Requested Visits Authorized [id number] Authorized PCP Requested Referral 07/21/2023 07/20/2024 1 1 Specialty Diagnoses / Procedures Referred By Contac t Referred To Contact Gastroenterology Diagnoses Iron deficiency anemia, unspecified iron deficiency anemia type Anemia, unspecified type 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 Hospital discharge follow-up Procedures CONSULT TO GASTROENTEROLOGY OFFICE/OUTPATIENT [facility] 60 MINUTES Yaneth Davenport [address] [place] [address] Referral ID Status Reason Start Date Expiration Date Visits Requested Visits Authorized [id number] Authorized PCP Requested Referral 07/25/2023 07/24/2024 1 1 Specialty Diagnoses / Procedures Referred By Contac t Referred To Contact CT IMAGING Diagnoses Chronic cough Procedures CT CHEST WO IVCON DIAGNOSTIC COMPUTED TOMOGRAPHY THORAX W/O CNTRST Marlyn Estrada APRN.VETERINARY TOXICOLOGIST [address] [place] [address] [place] [address] Referral ID Status Reason Start Date Expiration Date Visits Requested Visits Authorized [id number] Pending Review Auto-Generat ed Referral 07/08/2024 08/07/2025 1 1 Specialty Diagnoses / Procedures Referred By Contnancy t Referred To Contact Hematology Diagnoses Iron deficiency anemia, unspecified iron deficiency anemia type Procedures CONSULT TO HEMATOLOGY OFFICE/OUTPATIENT [facility] 60 MINUTES Marlyn Estrada APRN.VETERINARY TOXICOLOGIST [address] [place] [address] Referral ID Status Reason Start Date Expiration Date Visits Requested Visits Authorized [id number] Authorized PCP Requested Referral 07/08/2024 07/08/2025 1 1 Additional Source Comments INFORMATION SOURCE (unrecogn ized section and content) DATE CREATED AUTHOR 12/05/2017 [facility] DATE CREATED AUTHOR AUTHOR'S CELEIZ ATION 12/08/2018 [facility] ([place]) DATE CREATED AUTHOR AUTHOR'S ORGANIZ ATION 06/01/2023 [facility] DATE CREATED AUTHOR AUTHOR'S ORGANIZ ATION 12/05/2024 [facility] DATE CREATED AUTHOR AUTHOR'S ORGANIZ ATION 12/23/2024 [facility] Source Comments (unrecognize d section and content) In the event this informatio n is protected by the Federal Confidentiality of Alcohol and Drug Abuse Patient Records regulations: The Federal rules restrict any use of the information to criminally investigate or prosecute any alcohol or drug abuse patient.[facility] HospitalIn the event this information is protected by the Federal Confidentiality of Alcohol and Drug Abuse Patient Records regulations: The Federal rules restrict any use of the information to criminally investigate or prosecute any alcohol or drug abuse patient.[facility] HospitalIn the event this information is protected by the Federal Confidentiality of Alcohol and Drug Abuse Patient Records regulations: The Federal rules restrict any use of the information to criminally investigate or prosecute any alcohol or drug abuse patient.[facility] HospitalIn the event this information is protected by the Federal Confidentiality of Alcohol and Drug Abuse Patient Records regulations: The Federal rules restrict any use of the information to criminally investigate or prosecute any alcohol or drug abuse patient.[facility] HospitalIn the event this information is protected by the Federal Confidentiality of Alcohol and Drug Abuse Patient Records regulations: The Federal rules restrict any use of the information to criminally investigate or prosecute any alcohol or drug abuse patient.[facility] HospitalIn the event this information is protected by the Federal Confidentiality of Alcohol and Drug Abuse Patient Records regulations: The Federal rules restrict any use of the information to criminally investigate or prosecute any alcohol or drug abuse patient.[facility] HospitalIn the event this information is protected by the Federal Confidentiality of Alcohol and Drug Abuse Patient Records regulations: The Federal rules restrict any use of the information to criminally investigate or prosecute any alcohol or drug abuse patient.[facility] HospitalIn the event this information is protected by the Federal Confidentiality of Alcohol and Drug Abuse Patient Records regulations: The Federal rules restrict any use of the information to criminally investigate or prosecute any alcohol or drug abuse patient.[facility] HospitalIn the event this information is protected by the Federal Confidentiality of Alcohol and Drug Abuse Patient Records regulations: The Federal rules restrict any use of the information to criminally investigate or prosecute any alcohol or drug abuse patient.[facility] HospitalIn the event this information is protected by the Federal Confidentiality of Alcohol and Drug Abuse Patient Records regulations: The Federal rules restrict any use of the information to criminally investigate or prosecute any alcohol or drug abuse patient.[facility] HospitalIn the event this information is protected by the Federal Confidentiality of Alcohol and Drug Abuse Patient Records regulations: The Federal rules restrict any use of the information to criminally investigate or prosecute any alcohol or drug abuse patient.[facility] HospitalIn the event this information is protected by the Federal Confidentiality of Alcohol and Drug Abuse Patient Records regulations: The Federal rules restrict any use of the information to criminally investigate or prosecute any alcohol or drug abuse patient.[facility] HospitalIn the event this information is protected by the Federal Confidentiality of Alcohol and Drug Abuse Patient Records regulations: The Federal rules restrict any use of the information to criminally investigate or prosecute any alcohol or drug abuse patient.[facility] HospitalIn the event this information is protected by the Federal Confidentiality of Alcohol and Drug Abuse Patient Records regulations: The Federal rules restrict any use of the information to criminally investigate or prosecute any alcohol or drug abuse patient.[facility] HospitalIn the event this information is protected by the Federal Confidentiality of Alcohol and Drug Abuse Patient Records regulations: The Federal rules restrict any use of the information to criminally investigate or prosecute any alcohol or drug abuse patient.[facility] HospitalIn the event this information is protected by the Federal Confidentiality of Alcohol and Drug Abuse Patient Records regulations: The Federal rules restrict any use of the information to criminally investigate or prosecute any alcohol or drug abuse patient.[facility] HospitalIn the event this information is protected by the Federal Confidentiality of Alcohol and Drug Abuse Patient Records regulations: The Federal rules restrict any use of the information to criminally investigate or prosecute any alcohol or drug abuse patient.[facility] HospitalIn the event this information is protected by the Federal Confidentiality of Alcohol and Drug Abuse Patient Records regulations: The Federal rules restrict any use of the information to criminally investigate or prosecute any alcohol or drug abuse patient.[facility] HospitalIn the event this information is protected by the Federal Confidentiality of Alcohol and Drug Abuse Patient Records regulations: The Federal rules restrict any use of the information to criminally investigate or prosecute any alcohol or drug abuse patient.[facility] HospitalIn the event this information is protected by the Federal Confidentiality of Alcohol and Drug Abuse Patient Records regulations: The Federal rules restrict any use of the information to criminally investigate or prosecute any alcohol or drug abuse patient.[facility] HospitalIn the event this information is protected by the Federal Confidentiality of Alcohol and Drug Abuse Patient Records regulations: The Federal rules restrict any use of the information to criminally investigate or prosecute any alcohol or drug abuse patient.[facility] HospitalIn the event this information is protected by the Federal Confidentiality of Alcohol and Drug Abuse Patient Records regulations: The Federal rules restrict any use of the information to criminally investigate or prosecute any alcohol or drug abuse patient.[facility] HospitalIn the event this information is protected by the Federal Confidentiality of Alcohol and Drug Abuse Patient Records regulations: The Federal rules restrict any use of the information to criminally investigate or prosecute any alcohol or drug abuse patient.[facility] HospitalIn the event this information is protected by the Federal Confidentiality of Alcohol and Drug Abuse Patient Records regulations: The Federal rules restrict any use of the information to criminally investigate or prosecute any alcohol or drug abuse patient.[facility] HospitalIn the event this information is protected by the Federal Confidentiality of Alcohol and Drug Abuse Patient Records regulations: The Federal rules restrict any use of the information to criminally investigate or prosecute any alcohol or drug abuse patient.[facility] HospitalIn the event this information is protected by the Federal Confidentiality of Alcohol and Drug Abuse Patient Records regulations: The Federal rules restrict any use of the information to criminally investigate or prosecute any alcohol or drug abuse patient.[facility] HospitalIn the event this information is protected by the Federal Confidentiality of Alcohol and Drug Abuse Patient Records regulations: The Federal rules restrict any use of the information to criminally investigate or prosecute any alcohol or drug abuse patient.[facility] HospitalIn the event this information is protected by the Federal Confidentiality of Alcohol and Drug Abuse Patient Records regulations: The Federal rules restrict any use of the information to criminally investigate or prosecute any alcohol or drug abuse patient.[facility] HospitalIn the event this information is protected by the Federal Confidentiality of Alcohol and Drug Abuse Patient Records regulations: The Federal rules restrict any use of the information to criminally investigate or prosecute any alcohol or drug abuse patient.[facility] HospitalIn the event this information is protected by the Federal Confidentiality of Alcohol and Drug Abuse Patient Records regulations: The Federal rules restrict any use of the information to criminally investigate or prosecute any alcohol or drug abuse patient.[facility] HospitalIn the event this information is protected by the Federal Confidentiality of Alcohol and Drug Abuse Patient Records regulations: The Federal rules restrict any use of the information to criminally investigate or prosecute any alcohol or drug abuse patient.[facility] HospitalIn the event this information is protected by the Federal Confidentiality of Alcohol and Drug Abuse Patient Records regulations: The Federal rules restrict any use of the information to criminally investigate or prosecute any alcohol or drug abuse patient.[facility] HospitalIn the event this information is protected by the Federal Confidentiality of Alcohol and Drug Abuse Patient Records regulations: The Federal rules restrict any use of the information to criminally investigate or prosecute any alcohol or drug abuse patient.[facility] HospitalIn the event this information is protected by the Federal Confidentiality of Alcohol and Drug Abuse Patient Records regulations: The Federal rules restrict any use of the information to criminally investigate or prosecute any alcohol or drug abuse patient.[facility] HospitalIn the event this information is protected by the Federal Confidentiality of Alcohol and Drug Abuse Patient Records regulations: The Federal rules restrict any use of the information to criminally investigate or prosecute any alcohol or drug abuse patient.[facility] HospitalIn the event this information is protected by the Federal Confidentiality of Alcohol and Drug Abuse Patient Records regulations: The Federal rules restrict any use of the information to criminally investigate or prosecute any alcohol or drug abuse patient.[facility] HospitalIn the event this information is protected by the Federal Confidentiality of Alcohol and Drug Abuse Patient Records regulations: The Federal rules restrict any use of the information to criminally investigate or prosecute any alcohol or drug abuse patient.[facility] HospitalIn the event this information is protected by the Federal Confidentiality of Alcohol and Drug Abuse Patient Records regulations: The Federal rules restrict any use of the information to criminally investigate or prosecute any alcohol or drug abuse patient.[facility] HospitalIn the event this information is protected by the Federal Confidentiality of Alcohol and Drug Abuse Patient Records regulations: The Federal rules restrict any use of the information to criminally investigate or prosecute any alcohol or drug abuse patient.[facility] HospitalIn the event this information is protected by the Federal Confidentiality of Alcohol and Drug Abuse Patient Records regulations: The Federal rules restrict any use of the information to criminally investigate or prosecute any alcohol or drug abuse patient.[facility] HospitalIn the event this information is protected by the Federal Confidentiality of Alcohol and Drug Abuse Patient Records regulations: The Federal rules restrict any use of the information to criminally investigate or prosecute any alcohol or drug abuse patient.[facility] HospitalIn the event this information is protected by the Federal Confidentiality of Alcohol and Drug Abuse Patient Records regulations: The Federal rules restrict any use of the information to criminally investigate or prosecute any alcohol or drug abuse patient.[facility] HospitalIn the event this information is protected by the Federal Confidentiality of Alcohol and Drug Abuse Patient Records regulations: The Federal rules restrict any use of the information to criminally investigate or prosecute any alcohol or drug abuse patient.[facility] HospitalIn the event this information is protected by the Federal Confidentiality of Alcohol and Drug Abuse Patient Records regulations: The Federal rules restrict any use of the information to criminally investigate or prosecute any alcohol or drug abuse patient.[facility] HospitalIn the event this information is protected by the Federal Confidentiality of Alcohol and Drug Abuse Patient Records regulations: The Federal rules restrict any use of the information to criminally investigate or prosecute any alcohol or drug abuse patient.[facility] HospitalIn the event this information is protected by the Federal Confidentiality of Alcohol and Drug Abuse Patient Records regulations: The Federal rules restrict any use of the information to criminally investigate or prosecute any alcohol or drug abuse patient.[facility] Reason for Visit (unrecogniz ed section and content) Reason Comments Physical Reason Comments Results Reason Comments New Pain Stiffness Weakness Reason Comments Nasal Congestion cough, sore throat x 1 week Reason Comments Sore Throat Cough x 1 week Reason Comments follow up Head aches , nasal c ongestion Reason Comments Cough Runny nose, nasal co ngestion,pressure in head, headache x 2 weeks Reason Comments hospital f/up Reason Comments New Patient Reason Comments Established Patient Specialty Diagnoses / Procedures Referred By Contac t Referred To Contact Hematology Diagnoses Iron deficiency anemia, unspecified iron deficiency anemia type 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 Hospital discharge follow-up Procedures CONSULT TO HEMATOLOGY OFFICE/OUTPATIENT NEW HIGH MDM 60 MINUTES Marlyn Estrada APRN.VETERINARY TOXICOLOGIST [address] [place] [address] Referral ID Status Reason Start Date Expiration Date V isits Requested Visits Authorized [id number] Closed PCP Requested Referral 07/21/2023 07/20/2024 1 1 Reason Comments Non-Chemotherapy Treatment Specialty Diagnoses / Procedures Referred By Contac t Referred To Contact Diagnoses History of anemia Iron deficiency anemia, unspecified iron deficiency anemia type Procedures IRON SUCROSE INJECTION PER 1 MG Ethel, Yaneth [address] [place] [address] [facility] [address] [place] [address] Referral ID Status Reason Start Date Expiration Date V isits Requested Visits Authorized [id number] Authorized 07/25/2023 06/11/2024 99 99 Specialty Diagnoses / Procedures Referred By Contac t Referred To Contact Diagnoses History of anemia Iron deficiency anemia, unspecified iron deficiency anemia type Procedures IRON SUCROSE INJECTION PER 1 MG Davenport, Yaneth [address] [place] [address] [facility] [address] [place] [address] Reason Comments Benefits Investigation Reason Comments Social Work Services Reason Comments Established Patient Reason Comments F/U 3 Month Reason Comments Patient Update Reason Comments ER F/U Reason Comments Cough sore throat, headach e, bodyaches x 1 day Reason Comments [facility] follow up Reason Comments Appointment Specialty Diagnoses / Procedures Referred By Contac t Referred To Contact Hematology Diagnoses Iron deficiency anemia, unspecified iron deficiency anemia type Procedures CONSULT TO HEMATOLOGY OFFICE/OUTPATIENT [facility] 60 MINUTES Marlyn Estrada, INK TECHNICIAN.VETERINARY TOXICOLOGIST [address] [place] [address] Referral ID Status Reason Start Date Expiration Date V isits Requested Visits Authorized [id number] Closed PCP Requested Referral 07/08/2024 07/08/2025 1 1 Specialty Diagnoses / Procedures Referred By Contac t Referred To Contact Diagnoses History of anemia Iron deficiency anemia, unspecified iron deficiency anemia type Procedures IRON SUCROSE INJECTION PER 1 MG Davenport, Yaneth [address] [place] [address] [facility] [address] [place] [address] Referral ID Status Reason Start Date Expiration Date V isits Requested Visits Authorized [id number] Authorized 07/09/2024 06/11/2025 99 99 Specialty Diagnoses / Procedures Referred By Contac t Referred To Contact Diagnoses History of anemia Iron deficiency anemia, unspecified iron deficiency anemia type Procedures IRON SUCROSE INJECTION PER 1 MG Davenport, Yaneth [address] [place] [address] [facility] [address] [place] [address] Specialty Diagnoses / Procedures Referred By Contac t Referred To Contact Diagnoses History of anemia Iron deficiency anemia, unspecified iron deficiency anemia type Procedures IRON SUCROSE INJECTION PER 1 MG Davenport, Yaneth [address] [place] [address] Phone: tel: fax: Hematology/Oncology [address] [place] [address] Phone: tel: fax: Reason Comments Radiology CT Specialty Diagnoses / Procedures Referred By Contnancy t Referred To Contact CT IMAGING Diagnoses Chronic cough Procedures CT CHEST WO IVCON DIAGNOSTIC COMPUTED TOMOGRAPHY THORAX W/O CNTRST Marlyn Estrada, STEFANIE.VETERINARY TOXICOLOGIST [address] [place] [address] Phone: tel: fax: [place] [address] Referral ID Status Reason Start Date Expiration Date V isits Requested Visits Authorized [id number] Closed Auto-Generate d Referral 07/08/2024 09/06/2024 1 1 Reason Comments Anxiety And depression Care Teams (unrecognized sec tion and content) Tool Grinding Technician Relationship Specialty Start Date End Date Jamari Zhang DO [address] [place] [address] PCP - General Family Practice 05/05/18 Tool Grinding Technician Relationship Specialty Start Date End Date Jamari Zhang DO [address] [place] [address] PCP - General Family Practice 05/05/18 Tool Grinding Technician Relationship Specialty Start Date End Date Jamari Zhnag DO [address] [place] [address] PCP - General Family Medicine 05/05/18 Tool Grinding Technician Relationship Specialty Start Date End Date Jamari Zhang DO [address] [place] [address] PCP - General Family Medicine 05/05/18 Tool Grinding Technician Relationship Specialty Start Date End Date Jamari Zhang DO [address] [place] [address] PCP - General Family Medicine 05/05/18 Team Status: Active Member Role Status Dates Dr. Jamari Zhang DO Family Provider Active Dr. Jamari Zhang , DO Primary Care Provider Active Team Status: Inactive Member Role Status Dates Dr. Jamari Zhang , DO Primary Care Provider Active Dr. Ming Ziegler MD Emergency Provider Active Tool Grinding Technician Relationship Specialty Start Date End Date Jamari Zhang DO [address] [facility] [place] [address] PCP - General Family Medicine 05/05/18 Tool Grinding Technician Relationship Specialty Start Date End Date Jamari Zhang DO [address] [facility] [place] [address] PCP - [facility] 05/05/18 Tool Grinding Technician Relationship Specialty Start Date End Date Jamari Zhang DO [address] [facility] [place] [address] PCP - [facility] Medicine 05/05/18 Tool Grinding Technician Relationship Specialty Start Date End Date Jamari Zhang DO [address] [facility] [place] [address] PCP - General [facility] Medicine 05/05/18 Team Status: Inactive Member Role Status Dates Dr. Jamari Zhang DO Primary Care Provider Active Dr. Bob Woods , Emergency Provider Active Team Status: Active Member Role Status Dates Dr. Jamari Zhang DO Primary Care Provider Active Dr. Lang Atkinson , DO Emergency Provider Active Dr. Kaushal Blackwell DO Admit Provider, Attending Pr ovider Active Tool Grinding Technician Relationship Specialty Start Date End Date Jamari Zhang DO [address] [facility] [place] [address] PCP - General [facility] Medicine 05/05/18 Tool Grinding Technician Relationship Specialty Start Date End Date Jamari Zhang DO [address] [facility] [place] [address] PCP - General Family Medicine 05/05/18 Tool Grinding Technician Relationship Specialty Start Date End Date Jamari Zhang DO [address] [facility] [place] [address] PCP - General Family Medicine 05/05/18 Tool Grinding Technician Relationship Specialty Start Date End Date Jamari Zhang DO [address] [facility] [place] [address] PCP - General Family Medicine 05/05/18 Tool Grinding Technician Relationship Specialty Start Date End Date Jamari Zhang DO [address] [facility] [place] [address] PCP - General Family Medicine 05/05/18 Tool Grinding Technician Relationship Specialty Start Date End Date Jamari Zhang DO [address] [facility] [place] [address] PCP - General Family Medicine 05/05/18 Tool Grinding Technician Relationship Specialty Start Date End Date Jamari Zhang DO [address] [facility] [place] [address] PCP - General Family Medicine 05/05/18 Tool Grinding Technician Relationship Specialty Start Date End Date Jamari Zhang DO [address] [facility] [place] [place] [address] PCP - General Family Medicine 05/05/18 Tool Grinding Technician Relationship Specialty Start Date End Date Jamari Zhang DO [address] [facility] [place] [address] PCP - General Family Medicine 05/05/18 Tool Grinding Technician Relationship Specialty Start Date End Date Jamari Zhang DO [address] [place] [address] PCP - General Family Medicine 05/05/18 Team Status: Active Member Role Status Dates Dr. Jamari Zhang DO Primary Care Provider Active Dr. Lang Atkinson DO Emergency Provider Active Dr. Kaushal Blackwell DO Admit Provider , Referring Provider, Other Provider Active Dr. Amy Villalba MD Other Provider Active Dr. Lobito Kwon MD Other Provider Active Dr. Wilbert Vogel MD Attending Provider Active Team Status: Active Member Role Status Dates Dr. Jamari Zhang DO Primary Care Provider Active Dr. Ivory Lopez MD Attending Provider Active Dr. Kaushal Blackwell , DO Referring Provider Active Team Status: Active Member Role Status Dates Dr. Jamari Zhang DO Primary Care Provider Active Dr. Lang Atkinson , DO Emergency Provider Active Dr. Kaushal Blackwell DO Admit Provider, Other Provid er Active Dr. Amy Villalba MD Attending Provider, Other Prov ider Active Dr. Lobito Kwon MD Other Provider Active Team Status: Active Member Role Status Dates Dr. Jamari Zhang DO Primary Care Provider Active Dr. Lang Atkinson DO Emergency Provider Active Dr. Kaushal Blackwell DO Admit Provider, Other Provid er Active Dr. Amy Villalba MD Other Provider Active Dr. Lobito Kwon MD Other Provider Active Dr. Wilbert Vogel MD Attending Provider, Referring Provider Active Team Status: Inactive Member Role Status Dates Dr. Jamari Zhang DO Primary Care Provider, Referr ing Provider Active Dr. Wilbert Vogel MD Attending Provider Active Team Status: Inactive Member Role Status Dates Dr. Jamari Zhang DO Primary Care Provider Active Dr. Bob Woods , DO Attending Provider, Emergency Provider Active Team Status: Inactive Member Role Status Dates Dr. Jamari Zhang DO Primary Care Provider Active Dr. Lang Atkinson DO Emergency Provider Active Dr. Kaushal Blackwell DO Admit Provider, Other Provid er Active Dr. Amy Villalba MD Attending Provider Active Dr. Lobito Kwon MD Other Provider Active Team Status: Active Member Role Status Dates Dr. Jamari Zhang DO Primary Care Provider Active Dr. Latrell Martinse , DO Emergency Provider Active Dr. Amy Villalba MD Admit Provider, Attending Prov ider Active Team Status: Active Member Role Status Dates Dr. Jamari Zhang , DO Primary Care Provider Active Dr. Latrell Martines , DO Emergency Provider Active Dr. Amy Villalba MD Admit Provider, Attending Provider, Other Provider Active Team Status: Active Member Role Status Dates Dr. Jamari Zhang , DO Primary Care Provider Active Dr. Latrell Martines , DO Emergency Provider Active Dr. Amy Villalba MD Admit Provider, Other Provider Active Dr. Nitish Freire , DO Attending Provider, Other Provider Active Dr. Wilbert Vogel MD Other Provider Active Team Status: Active Member Role Status Dates Dr. Jamari Zhang , DO Primary Care Provider Active Dr. Latrell Martines , DO Emergency Provider Active Dr. Amy Villalba MD Admit Provider, Other Provider Active Dr. Nitish Freire , DO Other Provider Active Dr. Wilbert Vogel MD Attending Provider, Other Prov ider Active Team Status: Active Member Role Status Dates Dr. Jamari Zhang , DO Primary Care Provider Active Dr. Latrell Martines , DO Emergency Provider Active Dr. Amy Villalba MD Admit Provider, Other Provider Active Dr. Nitish Freire , DO Other Provider Active Dr. Wilbert Vogel MD Attending Provider, Other Prov ider Active Dr. Andi Callahan , DO Other Provider Active Team Status: Active Member Role Status Dates Dr. Jamari Zhang , DO Primary Care Provider Active Dr. Elver Beltre MD Attending Provider Active Team Status: Active Member Role Status Dates Dr. Jamari Zhang , DO Primary Care Provider Active Dr. Latrell Martines , DO Emergency Provider Active Dr. Amy Villalba MD Admit Provider, Other Provider Active Dr. Nitish Freire , DO Attending Provider, Other Provider Active Dr. Wilbert Vogel MD Other Provider Active Dr. Andi Callahan , DO Other Provider Active Team Status: Active Member Role Status Dates Dr. Jamari Zhang , DO Primary Care Provider Active Dr. Latrell Martines , DO Emergency Provider Active Dr. Amy Villalba MD Admit Provider, Other Provider Active Dr. Nitish Freire , DO Other Provider Active Dr. Wilbert Vogel MD Other Provider Active Dr. Andi Callahan , DO Attending Provider, Other Prov ider Active Team Status: Active Member Role Status Dates Dr. Jamari Zhang , DO Primary Care Provider Active Dr. Latrell Martines , DO Emergency Provider Active Dr. Amy Villalba MD Admit Provider, Other Provider Active Dr. Wilbert Vogel MD Other Provider Active Dr. Andi Callahan , DO Attending Provider, Other Prov ider Active Dr. Nitish Freire , DO Other Provider Active Team Status: Active Member Role Status Dates Dr. Jamari Zhang , DO Primary Care Provider Active Dr. Latrell Martines , DO Emergency Provider Active Dr. Amy Villalba MD Admit Provider, Other Provider Active Dr. Wilbert Vogel MD Other Provider Active Dr. Andi Callahan , DO Other Provider Active Dr. Nitish Freire , DO Attending Provider, Other Provider Active Team Status: Active Member Role Status Dates Dr. Jamari Zhang , DO Primary Care Provider Active Dr. Andi Callahan , DO Attending Provider Active Team Status: Active Member Role Status Dates Dr. Jamari Zhang , DO Primary Care Provider Active Dr. Latrell Martines , DO Emergency Provider Active Dr. Amy Villalba MD Admit Provider, Other Provider Active Dr. Wilbert Vogel MD Other Provider Active Dr. Andi Callahan , DO Other Provider Active Dr. Mar Mendes , DO Attending Provider, Other Provide r Active Dr. Nitish Freire , DO Other Provider Active Team Status: Inactive Member Role Status Dates Dr. Jamari Zhang , DO Primary Care Provider Active Dr. Latrell Martines , DO Emergency Provider Active Dr. Amy Villalba MD Admit Provider, Other Provider Active Dr. Wilbert Vogel MD Other Provider Active Dr. Andi Callahan , DO Other Provider Active Dr. Mar Mendes , DO Attending Provider Active Dr. Nitish Freire , DO Other Provider Active Tool Grinding Technician Relationship Specialty Start Date End Date Jamari Zhang DO [address] [place] [address] PCP - General Family Medicine 05/05/18 Tool Grinding Technician Relationship Specialty Start Date End Date Jamari Zhang DO [address] [place] [address] PCP - General Family Medicine 05/05/18 Tool Grinding Technician Relationship Specialty Start Date End Date Jamari Zhang DO [address] [facility] [place] [place] [address] PCP - General Family Medicine 05/05/18 Tool Grinding Technician Relationship Specialty Start Date End Date Jamari Zhang DO [address] [facility] [place] [address] PCP - General Family Medicine 05/05/18 Tool Grinding Technician Relationship Specialty Start Date End Date Jamari Zhang DO [address] [facility] [place] [address] PCP - General Family Medicine 05/05/18 Tool Grinding Technician Relationship Specialty Start Date End Date Jamari Zhang DO [address] [facility] [place] [address] PCP - General Family Medicine 05/05/18 Tool Grinding Technician Relationship Specialty Start Date End Date Jamari Zhang DO [address] [facility] [place] [address] PCP - General Family Medicine 05/05/18 Marlyn Estrada, INK TECHNICIAN.VETERINARY TOXICOLOGIST [address] [facility] [place] [address] Professor Of [facility] 05/19/24 Kat Peres, INK TECHNICIAN.VETERINARY TOXICOLOGIST [address] [facility] [place] [address] Professor Of [facility] 05/19/24 Tool Grinding Technician Relationship Specialty Start Date End Date Jamari Zhang DO [address] [facility] [place] [address] PCP - General Family Medicine 05/05/18 Marlyn Estrada, INK TECHNICIAN.VETERINARY TOXICOLOGIST [address] [facility] [place] [address] Professor Of [facility] 05/19/24 Kat Peres APRN.VETERINARY TOXICOLOGIST [address] [facility] [place] [address] Professor Of [facility] 05/19/24 Tool Grinding Technician Relationship Specialty Start Date End Date Jamari Zhang DO [address] [facility] [place] [address] PCP - General Family Medicine 05/05/18 Marlyn Estrada INK TECHNICIAN.VETERINARY TOXICOLOGIST [address] [facility] [place] [address] Professor Of French [facility] 05/19/24 Kat Peres, INK TECHNICIAN.VETERINARY TOXICOLOGIST [address] [facility] [place] [address] [facility] 05/[facility] Tool Grinding Technician Relationship Specialty Start Date End Date Jamari Zhang DO [address] [facility] [place] [address] PCP - General Family Medicine 05/05/18 Marlyn Estrada, INK TECHNICIAN.VETERINARY TOXICOLOGIST [address] [facility] [place] [address] Professor Of French [facility] 05/19/24 Kat Peres, INK TECHNICIAN.VETERINARY TOXICOLOGIST [address] [facility] [place] [address] [facility] 05/19/24 Tool Grinding Technician Relationship Specialty Start Date End Date Jamari Zhang DO [address] [place] [address] PCP - General Family Medicine 05/05/18 Marlyn Estrada, INK TECHNICIAN.VETERINARY TOXICOLOGIST [address] [facility] [place] [address] Professor Of [facility] 05/19/24 Kat Peres, INK TECHNICIAN.VETERINARY TOXICOLOGIST [address] [place] [address] Professor Of [facility] 05/19/24 Tool Grinding Technician Relationship Specialty Start Date End Date Jamari Zhang DO [address] [facility] [address] PCP - General Family Medicine 05/05/18 Marlyn Estrada, INK TECHNICIAN.VETERINARY TOXICOLOGIST [address] [place] [address] Professor Of [facility] 05/19/24 Kat Peres, INK TECHNICIAN.VETERINARY TOXICOLOGIST [address] [facility] [place] [address] [facility] 05/19/24 Tool Grinding Technician Relationship Specialty Start Date End Date Jamari Zhang DO [address] [facility] [place] [address] PCP - General Family Medicine 05/05/18 Marlyn Estrada, INK TECHNICIAN.VETERINARY TOXICOLOGIST [address] [facility] [place] [address] Professor Of [facility] 05/19/24 Kat Peres, INK TECHNICIAN.VETERINARY TOXICOLOGIST [address] [place] [address] Professor Of [facility] 05/19/24 Tool Grinding Technician Relationship Specialty Start Date End Date Jamari Zhang DO [address] [facility] [place] [address] PCP - General Family Medicine 05/05/18 Marlyn Estrada, INK TECHNICIAN.VETERINARY TOXICOLOGIST [address] [facility] [place] [address] Professor Of [facility] 05/19/24 JaKat, INK TECHNICIAN.VETERINARY TOXICOLOGIST [address] [facility] [place] [address] [facility] 05/19/24 Tool Grinding Technician Relationship Specialty Start Date End Date Jamari Zhang DO [address] [place] [address] PCP - General Family Medicine 05/05/18 Marlyn Estrada, INK TECHNICIAN.VETERINARY TOXICOLOGIST [address] [facility] [place] [address] Professor Of [facility] 05/19/24 Kat Peres, INK TECHNICIAN.VETERINARY TOXICOLOGIST [address] [facility] [place] [address] Professor Of [facility] 05/19/24 Tool Grinding Technician Relationship Specialty Start Date End Date Jamari Zhang DO [address] [place] [address] PCP - General Family Medicine 05/05/18 Kat Peres, INK TECHNICIAN.VETERINARY TOXICOLOGIST [address] [facility] [address] Professor Of [facility] 05/19/24 Tool Grinding Technician Relationship Specialty Start Date End Date Jamari Zhang DO [address] [facility] [place] [address] PCP - General Family Medicine 05/05/18 Marlyn Estrada APRN.VETERINARY TOXICOLOGIST [address] [place] [address] Professor Of [facility] Family [facility] 05/19/24 08/30/24 Kat Peres, INK TECHNICIAN.VETERINARY TOXICOLOGIST [address] [place] [address] [facility] 05/19/24 Tool Grinding Technician Relationship Specialty Start Date End Date Jamari Zhang DO [address] [place] [address] PCP - General Family Medicine 05/05/18 Kat Peres, INK TECHNICIAN.VETERINARY TOXICOLOGIST [address] [place] [address] [facility] 05/19/24 Virginia Faith INK TECHNICIAN.VETERINARY TOXICOLOGIST [address] [place] [address] [facility] 11/25/24 Tool Grinding Technician Relationship Specialty Start Date End Date Jamari Zhang DO [address] [place] [address] PCP - General Family Medicine 05/05/18 Kat Peres, INK TECHNICIAN.VETERINARY TOXICOLOGIST [address] [facility] [address] Professor Of [facility] 05/19/24 Virginia Faith APRN.VETERINARY TOXICOLOGIST [address] [place], [place] [address] Professor Of [facility] 11/25/24 Goals (unrecognized section and content) Goals may be documented in a n alternate sectionGoals may be documented in an alternate sectionGoals may be documented in an alternate sectionGoals may be documented in an alternate section Inactive Administered Medications - up to 3 most recent administrations Administered Medications (un recognized section and content) Medication Order MAR Action Action Date Dose Rate Site iron sucrose 200 mg in NaCl 0.9% 100 mL (VENOFER) 200 mg, INTRAVENOUS, at 400 mL/hr, Administer over 15 Minutes, ONCE, 1 dose, On Mon08/01/23 at 1030, Please conduct a 30 minute post dose observation. Approximate total volume Expiration: 08/01/23 1900 New Bag/Syringe/Bottle 08/01/2023 10:35 AM EST 200 mg 400 mL/hr Inactive Administered Medications - up to 3 most recent administrations Medication Order MAR Action Action Date Dose Rate Site iron sucrose iv piggyback 200 mg in NaCl 0.9% 100 mL (VENOFER) 200 mg, INTRAVENOUS, at 400 mL/hr, Administer over 15 Minutes, ONCE, 1 dose, On Mon08/03/23 at 1030, Please conduct a 30 minute post dose observation. Refrigerate New Bag/Syringe/Bottle 08/03/2023 10:42 AM EST 200 mg 400 mL/hr Inactive Administered Medications - up to 3 most recent administrations Medication Order MAR Action Action Date Dose Rate Site iron sucrose iv piggyback 200 mg in NaCl 0.9% 100 mL (VENOFER) 200 mg, INTRAVENOUS, at 400 mL/hr, Administer over 15 Minutes, ONCE, 1 dose, On Mon08/09/23 at 1100, Please conduct a 30 minute post dose observation. Refrigerate New Bag/Syringe/Bottle 08/09/2023 10:52 AM EST 200 mg 400 mL/hr Inactive Administered Medications - up to 3 most recent administrations Medication Order MAR Action Action Date Dose Rate Site iron sucrose iv piggyback 200 mg in NaCl 0.9% 100 mL (VENOFER) 200 mg, INTRAVENOUS, at 400 mL/hr, Administer over 15 Minutes, ONCE, 1 dose, On Mon08/11/23 at 1330, Please conduct a 30 minute post dose observation. Refrigerate New Bag/Syringe/Bottle 08/11/2023 1:16 PM EST 200 mg 400 mL/hr FOR RECORDS PERTAINING TO PATIENTS WHO ARE [...] BE BASED ON THE PRIMARY CLINICAL RECORDS. [employer] [facility]. provides no warranty or guarantee of the accuracy or completeness of information in this document.
--- OUTSIDE RECORDS SUMMARY | 2024-12-24 23:05 | XMS RPT_ITS | CCD ---
Author Organization [facility] Care Team Providers Care Ring Barker Operator Name Role Phone Jamari Zhang Unavailable Unavailable [...] Attending Provider Dr. Andi Callahan Other Provider 1([facility])[phone] Andi Callahan Attending Provider 1([facility])[phone] Dr. Mar Mendes Attending Provider Dr. Mar Mendes Other Provider Jamari Zhang DO Primary Care Provider Estrada BOTTLING MACHINE OPERATOR.Marlyn RUDD Unavailable Ja BOTTLING MACHINE OPERATOR.SEAMER OPERATOR, Kat Unavailable Estrada BOTTLING MACHINE OPERATOR.Marlyn RUDD Unavailable [facility] BOTTLING MACHINE OPERATOR.SEAMER OPERATOR, Virginia Tucker Unavailable MARLYN ESTRADA Referring Unavailabl [...] / oxyCODONE; Translations: [Percocet 10/325] Drug Allergy [facility] Repository (1 source) amoxicillin; Translations: [Amoxil] Drug Allergy [facility] Repository (1 source) cefixime; Translations: [Suprax] Drug Allergy [facility] Repository (20 sources) lactulose; Translations: [lactulose] Drug Allergy 2 [facility] Repository (20 sources) Acetaminophen / oxyCODONE; Translations: [OXYCODONE-ACETAM INOPHEN] Drug Allergy 2 Other: See [facility] Work Phone: (20 sources) Amoxicillin; Translations: [AMOXICILLIN] Drug Allergy 2 [facility] Work Phone: (20 sources) Cefixime; Translations: [CEFIXIME] Drug Allergy 2 [facility] Work Phone: (7 sources) oxyCODONE; Translations: [oxycodone HCl] Drug Allergy 2 Abd cramps/diarrhea [facility] (1 source) Amoxicillin Drug Allergy 4 [facility] Repository (1 source) Cefixime Drug Allergy 4 [facility] Repository Medications Current Medications Medication Drug Class(es) Dates Sig (Normalized) Sig (Original) [id number] 200 actuat albuterol 0.09 mg/actuat metered dose [...] oral solution (1 source) alpha-Adrenergic Agonist, Uncompetitive T-psvvwg-B-aspartate Receptor Antagonist, Sigma-1 Agonist Start: 03-03-2023 take 10 mL by mouth every six hours as needed Livmtkizimurtxd-Gdgzivugc-VC (BROMFED DM) 2-30-10 mg/5 mL syrup Take [...] low weight; and growth retardation (20 sources) Cumho-rxs-yfrif baby; Translations: [ small for gestational age, [...] Test Name Value Interpretation Reference Range Facility [facility] 12-04-2024 [facility] Office Visit (FAMPWS) CAROLA HARDING ([id number]) 1990 F Date Time Provider Department 12/04/24 12:40 PM [facility] During your visit today, we recorded the [...] Position: Sit (more content not included)... Normal [facility] Comprehensive metabolic 2000 panelon 12-04-2024 Albumin [Mass/Vol] 4.4 g/dL Normal 3.9-4.9 [facility] Comment on above: Order Comment: Speci men Type: BLOOD SPECIMENOrdering Facility: [facility] Address: [address] [place] [address] Performed By: #### 2 4323-8, 3024-7, LIPNF, 3016-3 ####[facility] LABCLIA [id number] [place] [address] [place] ALP [Catalytic activity/Vol] 61 U/L Normal 34-123 [facility] Comment on above: Order Comment: Speci men Type: BLOOD SPECIMENOrdering Facility: [facility] Address: [address] [place] [address] Performed By: #### 2 4323-8, 302-7, LIPNF, 3016-3 ####[facility] LABCLIA [id number] [place] [address] [place] ALT [Catalytic activity/Vol] 13 U/L Normal 7-38 [facility] Comment on above: Order Comment: Speci men Type: BLOOD SPECIMENOrdering Facility: [facility] Address: [address] [place] [address] Performed By: #### 2 4323-8, 3024-7, LIPNF, 3016-3 ####[facility] LABCLIA [id number] [address] [address] [place] Anion gap [Moles/Vol] 11 mmol/L Normal 8-15 [facility] Comment on above: Order Comment: Speci men Type: BLOOD SPECIMENOrdering Facility: [facility] Address: [address] [place] [address] Performed By: #### 2 4323-8, 3024-7, LIPNF, 3016-3 ####[facility] LABCLIA [id number] [address] [address] [place] AST [Catalytic activity/Vol] 21 U/L Normal 13-35 [facility] Comment on above: Order Comment: Speci men Type: BLOOD SPECIMENOrdering Facility: [facility] Address: [address] [place] [address] Performed By: #### 2 4323-8, 3024-7, LIPNF, 3016-3 ####[facility] LABCLIA [id number] [place] [id number] [place] Bilirubin [Mass/Vol] 0.4 mg/dL Normal 0.2-1.3 [facility] Comment on above: Order Comment: Speci men Type: BLOOD SPECIMENOrdering Facility: [facility] Address: [address] [place] [address] Performed By: #### 2 4323-8, 3024-7, LIPNF, 6-3 ####[facility] LABCLIA [id number] [place] [address] [place] Calcium [Mass/Vol] 9.7 mg/dL Normal 8.5-10.2 [facility] Comment on above: Order Comment: Speci men Type: BLOOD SPECIMENOrdering Facility: [facility] Address: [address] [place] [address] Performed By: #### 2 4323-8, 3024-7, LIPNF, 6-3 ####[facility] LABCLIA [id number] [place] [id number] [place] Chloride [Moles/Vol] 106 mmol/L Normal 98-107 [facility] Comment on above: Order Comment: Speci men Type: BLOOD SPECIMENOrdering Facility: [facility] Address: [address] [place] [address] Performed By: #### 2 4323-8, 3024-7, LIPNF, 3016-3 ####[facility] LABCLIA [id number] [place] [address] [place] CO2 [Moles/Vol] 24 mmol/L Normal 22-30 [facility] Comment on above: Order Comment: Speci men Type: BLOOD SPECIMENOrdering Facility: [facility] Address: [address] [place] [address] Performed By: #### 2 4323-8, 3024-7, LIPELENA, 6-3 ####[facility] LABIA [id number] [place] [id number] [place] Creatinine [Mass/Vol] 0.69 mg/dL Normal 0.58-0.96 [facility] Comment on above: Order Comment: Speci men Type: BLOOD SPECIMENOrdering Facility: [facility] Address: [address] [place] [address] Performed By: #### 2 4323-8, 3024-7, LIPELENA, 6-3 ####[facility] [id number] [place] [address] [place] Creatinine and Glomerular filtration rate.predicted panel (S/P/Bld) 117 mL/min/1.73m??? Normal >=60 [facility] Comment on above: Order Comment: Speci men Type: BLOOD SPECIMENOrdering Facility: [facility] Address: [address] [place] [address] Result Comment: Nori mated Glomerular Filtration Rate [...] By: #### 2 4323-8, 3024-7, LIPNF, 3016-3 ####[facility] LABIA [id number] [address] [address] [place] Glucose [Mass/Vol] 91 mg/dL Normal 74-99 [facility] Comment on above: Order Comment: Speci men Type: BLOOD SPECIMENOrdering Facility: [facility] Address: [address] [place] [address] Result Comment: The [place] Diabetes Association (ADA) provides guidance for cutoff [...] Standards of Medical Care in Diabetes 2016, [place] Diabetes Association. Diabetes Care. 2016.39(Suppl 1). Performed By: #### 2 4323-8, 3024-7, LIPNF, 3016-3 ####[facility] LABCLIA [id number] [place] [address] [place] Potassium [Moles/Vol] 3.7 mmol/L Normal 3.7-5.1 [facility] Comment on above: Order Comment: Speci men Type: BLOOD SPECIMENOrdering Facility: [facility] Address: [address] [place] [address] Performed By: #### 2 4323-8, 3024-7, LIPNF, 3016-3 ####[facility] LABCLIA [id number] [place] [address] [place] Protein [Mass/Vol] 7.0 g/dL Normal 6.3-8.0 [facility] Comment on above: Order Comment: Speci men Type: BLOOD SPECIMENOrdering Facility: [facility] Address: [address] [place] [address] Performed By: #### 2 4323-8, 3024-7, LIPNF, 3016-3 ####[facility] LABCLIA [id number] [address] [address] [place] Sodium [Moles/Vol] 141 mmol/L Normal 136-144 [facility] Comment on above: Order Comment: Speci men Type: BLOOD SPECIMENOrdering Facility: [facility] Address: [address] [place] [address] Performed By: #### 2 4323-8, 3024-7, LIPNF, 3016-3 ####[facility] LABIA [id number] [address] [address] [place] Urea nitrogen [Mass/Vol] 9 mg/dL Normal 7-21 [facility] Comment on above: Order Comment: Speci men Type: BLOOD SPECIMENOrdering Facility: [facility] Address: [address] [place] [address] Performed By: #### 2 4323-8, 3024-7, LIPNF, 3016-3 ####[facility] [id number] [place] [address] [place] HbA1c (Bld)on 12-04-2024 Average glucose Estimated from glycated hemoglobin (Bld) [Mass/Vol] 94 mg/dL Normal [facility] Comment on above: Order Comment: Speci men Type: BLOOD SPECIMENOrdering Facility: [facility] Address: [address] [place] [address] Result Comment: eAG: (Estimated average glucose) is a calculated value from HgbA1c and is admitting representative of the average blood glucose level in the last 2-3 month period. Performed By: #### 5 5454-3 ####[facility] [id number] [place] [id number] [place] HbA1c (Bld) [Mass fraction] 4.9 % Normal 4.3-5.6 [facility] Comment on above: Order Comment: Speci men Type: BLOOD SPECIMENOrdering Facility: [facility] Address: [address] [place] [address] Result Comment: [place] Diabetes Association guidelines indicate that patients with HgbA1c in the range 5.7-6.4% are at increased risk for development of diabetes, and intervention by lifestyle modification may be beneficial. HgbA1c greater or equal to 6.5% is considered diagnostic of diabetes. Performed By: #### 5 5454-3 ####[facility] LABCLIA [id number] [place] [id number] [place] LIPID PANEL, NONFASTINGon Cholesterol [Mass/Vol] 134 mg/dL Normal <200 [facility] Comment on above: Order Comment: Specrose men Type: BLOOD SPECIMENOrdering Facility: [facility] Address: [address] [place] [address] Result Comment: <200 mg/dL, Desirable 200-239 mg/dL, Borderline high >239 mg/dL, High Performed By: #### 2 4323-8, 3024-7, LIPNF, 3016-3 ####[facility] LABCLIA [id number] [place] [id number] [place] HDL CHOLESTEROL, NF 40 mg/dL Normal >39 [facility] Comment on above: Order Comment: Ada castañeda Type: BLOOD SPECIMENOrdering Facility: [facility] Address: [address] [place] [address] Result Comment: 40-5 9 mg/dL, Acceptable >59 mg/dL, High: Negative risk factor for coronary heart disease <40 mg/dL, Low: Positive risk factor for coronary heart disease Performed By: #### 2 4323-8, 3024-7, LIPNF, 3016-3 ####[facility] LABCLIA [id number] [place] [id number] [place] LDL CHOLESTEROL CALCULATED, NF 72 mg/dL Normal <100 [facility] Comment on above: Order Comment: Ada castañeda Type: BLOOD SPECIMENOrdering Facility: [facility] Address: [address] [place] [address] Result Comment: <100 mg/dL, Optimal 100-129 mg/dL, Near optimal/above optimal 130-159 mg/dL, Borderline high 160-189 mg/dL, High >189 mg/dL, Very high Secondary prevention optimal LDL Cholesterol levels are recommended to be <70 mg/dL LDL cholesterol is calculated using the Toro-NIH equation. Performed By: #### 2 4323-8, 302-7, LIPELENA, 3015-3 ####[facility] LABCLIA [id number] [place] [id number] [facility] LDL/HDL RATIO, NF 1.80 mg/dL Normal <2.54 [facility] Comment on above: Order Comment: Speci men Type: BLOOD SPECIMENOrdering Facility: [facility] Address: [address] [place] [address] Result Comment: Refe rence: 1. National Cholesterol Education Program ATP III Guideline At-A-Glance Quick Desk Reference: National Heart, Lung, and Blood [place]. National Institutes of Health. 2001: NIH Publication No. 01-3305. 2. An International Atherosclerosis Society position paper: global recommendations for the management of dyslipidemia: executive summary, Atherosclerosis. 2014: 232(2):410-413. Performed By: #### 2 4323-8, 3023-7, LIPELENA, 3015-3 ####[facility] LABCLIA [id number] [address] NON HDL CHOL, NF 94 mg/dL Normal <130 [facility] Comment on above: Order Comment: Ada castañeda Type: BLOOD SPECIMENOrdering Facility: [facility] Address: [address] [place] [address] Result Comment: <130 mg/dL, Optimal 130-159 mg/dL, Near optimal/above optimal 160-189 mg/dL, Borderline high 190-219 mg/dL, High >219 mg/dL, Very high Secondary prevention optimal non HDL Cholesterol levels are recommended to be <100 mg/dL Performed By: #### 2 4323-8, 302-7, LIPNF, 3015-3 ####[facility] LABCLIA [id number] [place] [id number] [place] T CHOL/HDL RATIO NF 3.35 mg/dL Normal <5.10 [facility] Comment on above: Order Comment: Speci men Type: BLOOD SPECIMENOrdering Facility: [facility] Address: [address] [place] [address] Performed By: #### 2 4323-8, 302-7, LIPNF, 3016-3 ####[facility] LABCLIA [id number] [place] [address] [place] TRIGLYCERIDES, NF 122 mg/dL Normal <150 [facility] Comment on above: Order Comment: Speci men Type: BLOOD SPECIMENOrdering Facility: [facility] Address: [address] [place] [address] Result Comment: <150 mg/dL, Normal 150-199 mg/dL, Borderline high 200-499 mg/dL, High >499 mg/dL, Very high Performed By: #### 2 4323-8, 3023-7, LIPNF, 3016-3 ####[facility] LABCLIA [id number] [place] [address] [place] VLDL CHOLESTEROL, NF 18 mg/dL Normal <30 [facility] Comment on above: Order Comment: Speci men Type: BLOOD SPECIMENOrdering Facility: [facility] Address: [address] [place] [address] Performed By: #### 2 4323-8, 3023-7, LIPNF, 6-3 ####[facility] LABCLIA [id number] [place] [address] [place] T4 Free SerPl-mCncon 12-04- 025 Free T4 [Mass/Vol] 0.7 ng/dL Low 0.9-1.7 [facility] Comment on above: Order Comment: Speci men Type: BLOOD SPECIMENOrdering Facility: [facility] Address: [address] [place] [address] Performed By: #### 2 4323-8, 3023-7, LIPNF, 6-3 ####[facility] LABCLIA [id number] [place] [id number] [place] TSH SerPl-aCncon 12-04-2024 TSH Qn 3.140 m[IU]/L Normal 0.270-4.200 [facility] Comment on above: Order Comment: Speci men Type: BLOOD SPECIMENOrdering Facility: [facility] Address: [address] [place] [address] Result Comment: If t he patient is , TSH reference range varies by gestational period: First Trimester (weeks 9-12): 0.180-2.990 mIU/L Second Trimester: 0.110-3.980 mIU/L Third Trimester: 0.480-4.710 mIU/L Saurabh Puri et al. A Practical Approach for the Verifications and Determination of Site- and Trimester-Specific Reference Intervals for Thyroid Function tests in . Thyroid, 2019:29:3:412-420. Nitish E, et al. 2017 Guidelines of the [place] Thyroid Association for the Diagnosis and Management of Thyroid Disease during and the . Thyroid, 2017:27:3:315-389. Performed By: #### 2 4323-8, 3024-7, LIPNF, 3016-3 ####[facility] LABCLIA [id number] [place] [address] [place] CNCOon 10-31-2024 CNCO Letter Text Normal [facility] CBC W Auto Differential pane l (Bld)on 09-20-2024 Basophils (Bld) [#/Vol] 0.03 10*3/uL Normal <0.11 [facility] Comment on above: Order Comment: Speci men Type: BLOOD SPECIMENOrdering Facility: [facility] Address: [address] [place] [address] Performed By: #### 5 7021-8 ####[facility] AL[facility] ROSA CAROCYPRESSSOLEDAD [id number] [place] [address] [place] Basophils/100 WBC (Bld) 1.0 % Normal [facility] Comment on above: Order Comment: Speci men Type: BLOOD SPECIMENOrdering Facility: [facility] Address: [address] [place] [address] Performed By: #### 5 7021-8 ####[facility] AVANADREWA [id number] [place] [address] [place] Differential cell count method Nom (Bld) Auto Normal [facility] Comment on above: Order Comment: Speci men Type: BLOOD SPECIMENOrdering Facility: [facility] Address: [address] [place] [address] Performed By: #### 5 7021-8 ####[facility] GORDOTHADA [id number] [place] [address] [place] Eosinophils (Bld) [#/Vol] 0.10 10*3/uL Normal <0.46 [facility] Comment on above: Order Comment: Speci men Type: BLOOD SPECIMENOrdering Facility: [facility] Address: [address] [place] [address] Performed By: #### 5 7021-8 ####[facility] GORDOCYPRESSANDREWA [id number] [place] [address] [place] Eosinophils/100 WBC (Bld) 3.3 % Normal [facility] Comment on above: Order Comment: Speci men Type: BLOOD SPECIMENOrdering Facility: [facility] Address: [address] [place] [address] Performed By: #### 5 7021-8 ####[facility] GORDOJorgitoTHOMASLIA [id number] [place] [address] [place] Erythrocyte distribution width (RBC) [Ratio] 17.5 % High 11.5-15.0 [facility] Comment on above: Order Comment: Speci men Type: BLOOD SPECIMENOrdering Facility: [facility] Address: [address] [place] [address] Performed By: #### 5 7021-8 ####[facility] CENTERLIA [id number] [place] [address] [place] Hematocrit (Bld) [Volume fraction] 37.2 % Normal 36.0-46.0 [facility] Comment on above: Order Comment: Speci men Type: BLOOD SPECIMENOrdering Facility: [facility] Address: [address] [place] [address] Performed By: #### 5 7021-8 ####[facility] [id number] [place] [address] [place] Hemoglobin (Bld) [Mass/Vol] 12.1 g/dL Normal 11.5-15.5 [facility] Comment on above: Order Comment: Speci men Type: BLOOD SPECIMENOrdering Facility: [facility] Address: [address] [place] [address] Performed By: #### 5 7021-8 ####[facility] [id number] [place] [address] [place] Immature granulocytes (Bld) [#/Vol] 10*3/uL Normal <0.10 [facility] Comment on above: Order Comment: Speci men Type: BLOOD SPECIMENOrdering Facility: [facility] Address: [address] [place] [address] Performed By: #### 5 7021-8 ####[facility] [id number] [place] [address] [place] Immature granulocytes/100 WBC (Bld) 0.0 % Normal [facility] Comment on above: Order Comment: Speci men Type: BLOOD SPECIMENOrdering Facility: [facility] Address: [address] [place] [address] Performed By: #### 5 7021-8 ####[facility] [id number] [place] [address] [place] Lymphocytes (Bld) [#/Vol] 1.41 10*3/uL Normal 1.00-4.00 [facility] Comment on above: Order Comment: Speci men Type: BLOOD SPECIMENOrdering Facility: [facility] Address: [address] [place] [address] Performed By: #### 5 7021-8 ####[facility] [id number] [place] [address] [place] Lymphocytes/100 WBC (Bld) 46.7 % Normal [facility] Comment on above: Order Comment: Speci men Type: BLOOD SPECIMENOrdering Facility: [facility] Address: [address] [place] [address] Performed By: #### 5 7021-8 ####[facility] [id number] [place] [address] [place] MCH (RBC) [Entitic mass] 27.8 pg Normal 26.0-34.0 [facility] Comment on above: Order Comment: Speci men Type: BLOOD SPECIMENOrdering Facility: [facility] Address: [address] [place] [address] Performed By: #### 5 7021-8 ####[facility] [id number] [place] [address] [place] MCHC (RBC) [Mass/Vol] 32.5 g/dL Normal 30.5-36.0 [facility] Comment on above: Order Comment: Speci men Type: BLOOD SPECIMENOrdering Facility: [facility] Address: [address] [place] [address] Performed By: #### 5 7021-8 ####[facility] [id number] [place] [address] [place] MCV (RBC) [Entitic vol] 85.5 fL Normal 80.0-100.0 [facility] Comment on above: Order Comment: Speci men Type: BLOOD SPECIMENOrdering Facility: [facility] Address: [address] [place] [address] Performed By: #### 5 7021-8 ####[facility] GORDOTOWNCLIA [id number] [place] [address] [place] Monocytes (Bld) [#/Vol] 0.31 10*3/uL Normal <0.87 [facility] Comment on above: Order Comment: Speci men Type: BLOOD SPECIMENOrdering Facility: [facility] Address: [address] [place] [address] Performed By: #### 5 7021-8 ####[facility] SPRINGSWNCLIA [id number] [place] [address] [place] Monocytes/100 WBC (Bld) 10.3 % Normal [facility] Comment on above: Order Comment: Speci men Type: BLOOD SPECIMENOrdering Facility: [facility] Address: [address] [place] [address] Performed By: #### 5 7021-8 ####[facility]ITAL[facility] [id number] [place] [address] [place] Neutrophils (Bld) [#/Vol] 1.17 10*3/uL Low 1.45-7.50 [facility] Comment on above: Order Comment: Speci men Type: BLOOD SPECIMENOrdering Facility: [facility] Address: [address] [place] [address] Performed By: #### 5 7021-8 ####[facility] MILLTOWNCLIA [id number] [place] [address] [place] Neutrophils/100 WBC (Bld) 38.7 % Normal [facility] Comment on above: Order Comment: Speci men Type: BLOOD SPECIMENOrdering Facility: [facility] Address: [address] [place] [address] Performed By: #### 5 7021-8 ####[facility] [id number] [place] [address] [place] Nucleated RBC (Bld) [#/Vol] 10*3/uL Normal <0.01 [facility] Comment on above: Order Comment: Speci men Type: BLOOD SPECIMENOrdering Facility: [facility] Address: [address] [place] [address] Performed By: #### 5 7021-8 ####[facility] [id number] [place] [address] [place] Nucleated RBC/100 WBC (Bld) [Ratio] 0.0 /100 WBC Normal [facility] Comment on above: Order Comment: Speci men Type: BLOOD SPECIMENOrdering Facility: [facility] Address: [address] [place] [address] Performed By: #### 5 7021-8 ####[facility] [id number] [place] [address] [place] Platelet mean volume (Bld) [Entitic vol] 8.8 fL Low 9.0-12.7 [facility] Comment on above: Order Comment: Speci men Type: BLOOD SPECIMENOrdering Facility: [facility] Address: [address] [place] [address] Performed By: #### 5 7021-8 ####[facility] [id number] [place] [address] [place] Platelets (Bld) [#/Vol] 189 10*3/uL Normal 150-400 [facility] Comment on above: Order Comment: Speci men Type: BLOOD SPECIMENOrdering Facility: [facility] Address: [address] [place] [address] Performed By: #### 5 7021-8 ####[facility] [id number] [place] [address] [place] RBC (Bld) [#/Vol] 4.35 10*6/uL Normal 3.90-5.20 [facility] Comment on above: Order Comment: Speci men Type: BLOOD SPECIMENOrdering Facility: [facility] Address: [address] [place] [address] Performed By: #### 5 7021-8 ####[facility]SW[facility]CLIA [id number] [place] [address] [facility] [place] WBC (Bld) [#/Vol] 3.02 10*3/uL Low 3.70-11.00 [facility] Comment on above: Order Comment: Speci men Type: BLOOD SPECIMENOrdering Facility: [facility] Address: [address] [place] [address] Performed By: #### 5 7021-8 ####[facility] [id number] [address] OF [place] CNOVSPon 09-20-2024 CNOVSP Visit (SP) Office (HEMAWS) MEHDICAROLA REIS ([id number]) 1990 F Date Time Provider Department 09/20/24 [...] by her PCP following recent admission to [facility] 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 Found to be pancytopenic during admission (result from [facility] scanned in). Counts have since recovered. PCP [...] ligation about 3 years. She follows with TRANSITION ADVISOR. Required IV iron with last 2 pregnancies. [...] She reports tolerating IV iron well overall. [place] better after 2nd infusion. Denies any issues with bleeding or bruising. Periods irregular, no menses in last 6 weeks. Hcg performed at [facility] neg. No SOB, CP. She was admitted to [facility] on 08/19/23 for worsening abdominal pain, N/V. Denies fevers, chills or NS. No recurrent infections. During admission, cardiac meds for cardiomyopathy were discontinued. HR and BP has since stabilized. She notes that HR was dropping down into 30s and she felt very tired. She is currently being worked up by Dr. Callahan at [facility] for GI malabsorptive conditions. EGD and colonoscopy [...] No bleed (more content not included)... Normal [facility] Ferritin SerPl-mCncon 2024 Ferritin [Mass/Vol] 87.4 ng/mL Normal 14.7-205.1 [facility] Comment on above: Order Comment: Speci men Type: BLOOD SPECIMENOrdering Facility: [facility] Address: [address] [place] [address] Performed By: #### 5 0190-8, 2132-02, 2275-09 ####[facility] LABCLIA [id number] [place] [id number] [place] Iron and Iron binding capaci ty panelon 09-20-2024 Iron [Mass/Vol] 91 ug/dL Normal 41-186 [facility] Comment on above: Order Comment: Speci men Type: BLOOD SPECIMENOrdering Facility: [facility] Address: [address] [place] [address] Performed By: #### 5 0190-8, 2132-02, 2275-09 ####[facility] LABIA [id number] [place] [address] [place] Iron binding capacity [Mass/Vol] 295 ug/dL Normal 232-386 [facility] Comment on above: Order Comment: Speci men Type: BLOOD SPECIMENOrdering Facility: [facility] Address: [address] [place] [address] Performed By: #### 5 0190-8, 2132-02, 2275-09 ####[facility] LABIA [id number] [place] [address] [place] Iron/TIBC [Molar ratio] 30.8 % Normal 15.0-57.0 [facility] Comment on above: Order Comment: Speci men Type: BLOOD SPECIMENOrdering Facility: [facility] Address: [address] [place] [address] Performed By: #### 5 0190-8, 2132-02, 2275-09 ####[facility] LABIA [id number] [address] [address] [place] Methylmalonate SerPl-sCncon 09-20-2024 Methylmalonate [Moles/Vol] 0.13 umol/L Normal <=0.40 [facility] Comment on above: Order Comment: Ada castañeda Type: BLOOD SPECIMENOrdering Facility: [facility] Address: [address] [place] [address] Result Comment: This test was developed, and its performance characteristics determined by the [facility] Department of Pathology and Laboratory Medicine. It has not been cleared or approved by the FDA. The [facility] Department of Pathology and Laboratory Medicine is regulated under CLIA as qualified to perform high-complexity testing. This test is used for clinical purposes. It should not be regarded as investigational or for research. Performed By: #### 1 3964-2 ####[facility] LABIA [id number] [address] [place] Vit B12 [facility] Cobalamin (Vitamin B12) [Mass/Vol] 722 pg/mL Normal 232-1245 [facility] Comment on above: Order Comment: Ada castañeda Type: BLOOD SPECIMENOrdering Facility: [facility] Address: [address] [place] [address] Performed By: #### 5 0190-8, 2132-9, 2276-4 ####[facility] LABIA [id number] [address] [facility] CT CHEST WO IVCONon 07-25-19 CT CHEST WO IVCON * * *Final Report* * * DATE OF EXAM: Jul 25 2024 9:52AM [facility] 0541 - CT CHEST WO IVCON / [...] additional findings. IMPRESSION: Unremarkable CT chest exam. 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 Found to be pancytopenic during admission (result from [facility] scanned in). Counts have since recovered. PCP [...] ligation about 3 years. She follows with TRANSITION ADVISOR. Required IV iron with last 2 pregnancies. [...] She reports tolerating IV iron well overall. [place] better after 2nd infusion. Denies any issues with bleeding or bruising. Periods irregular, no menses in last 6 weeks. Hcg performed at [facility] neg. No SOB, CP. She was admitted to [facility] on 08/19/23 for worsening abdominal pain, N/V. Denies fevers, chills or NS. No recurrent infections. During admission, cardiac meds for cardiomyopathy were discontinued. HR and BP has since stabilized. She notes that HR was dropping down into 30s and she felt very tired. She is currently being worked up by Dr. Callahan at [facility] for GI malabsorptive conditions. EGD and colonoscopy [...] MEDICAL HISTOR (more content not included)... Normal [facility] Ana 07-11-2024 FRANCIE Telephone (ELAINE) CAROLA HARDING ([id number]) 1990 F Date Time Provider Department 07/11/24 [...] Encounter Status:Closed by EL[facility] CAROLA HARDING ([id number]) 1990 F Date Time Provider Department 07/10/24 MARLYN ESTRADA [facility] During your visit today, we recorded the following information about you: Allergies As of Date: 07/10/2024 Noted Allergy Reaction AMOXICILLIN 09/29/2011 4 - Hives LACTULOSE 09/29/2011 4 - Hives PERCOCET (OXYCODONE-ACETAMINO PHEN)09/29/2011 14 - Other: See Comments Comments: ABDOMINAL PAIN SUPRAX (CEFIXIME) 09/29/2011 4 - Hives Date Reviewed: 07/08/2024 Reviewed by: Marlyn Estrada APRN.SEAMER OPERATOR - Fully Assessed Reason for Visit: Results [...] Fatigue [R53.83] 11/02/2023 Encounter Status:Closed by MARLYN ESTRADA on 07/10/24 [facility] Ana 07-09-2024 FRANCIE Telephone (ELAINE) MEHDICAROLA ([id number]) 1990 F Date Time Provider Department 07/09/24 YANETH DAVENPORT During your visit today, we recorded the following information about you: Yaneth Davenport 07/09/2024 10:17 AM Signed Looks like she no showed last OV but she is established. Needs IV iron. [place] orders are in. Can you please schedule [...] Date Reviewed: 07/08/2024 Reviewed by: Marlyn Estrada APRN.SEAMER OPERATOR - Fully Assessed Prescriptions as of 07/10/2024 [...] Status:Closed by YANETH DAVENPORT on 07/10/24 Normal [facility] CBC W Auto Differential pane l (Bld)on 07-08-2024 Basophils (Bld) [#/Vol] 10*3/uL Normal <0.11 [facility] Comment on above: Order Comment: Speci men Type: BLOOD SPECIMENOrdering Facility: [facility] Address: [address] [place] [address] Performed By: #### 5 7021-8 ####[facility] LABCLIA [id number] [address] [place] Basophils/100 WBC (Bld) 0.6 % Normal [facility] Comment on above: Order Comment: Speci men Type: BLOOD SPECIMENOrdering Facility: [facility] Address: [address] [place] [address] Performed By: #### 5 7021-8 ####[facility] LABCLIA [id number] [place] [address] [place] Differential cell count method Nom (Bld) Auto Normal [facility] Comment on above: Order Comment: Speci men Type: BLOOD SPECIMENOrdering Facility: [facility] Address: [address] [place] [address] Performed By: #### 5 7021-8 ####[facility] LABCLIA [id number] [place] [address] [place] Eosinophils (Bld) [#/Vol] 0.04 10*3/uL Normal <0.46 [facility] Comment on above: Order Comment: Speci men Type: BLOOD SPECIMENOrdering Facility: [facility] Address: [address] [place] [address] Performed By: #### 5 7021-8 ####[facility] LABCLIA [id number] [address] [place] Eosinophils/100 WBC (Bld) 1.3 % Normal [facility] Comment on above: Order Comment: Speci men Type: BLOOD SPECIMENOrdering Facility: [facility] Address: [address] [place] [address] Performed By: #### 5 7021-8 ####[facility] LABCLIA [id number] [address] [address] [place] Erythrocyte distribution width (RBC) [Ratio] 13.7 % Normal 11.5-15.0 [facility] Comment on above: Order Comment: Speci men Type: BLOOD SPECIMENOrdering Facility: [facility] Address: [address] [place] [address] Performed By: #### 5 7021-8 ####[facility] LABCLIA [id number] [place] [address] [place] Hematocrit (Bld) [Volume fraction] 31.2 % Low 36.0-46.0 [facility] Comment on above: Order Comment: Speci men Type: BLOOD SPECIMENOrdering Facility: [facility] Address: [address] [place] [address] Performed By: #### 5 7021-8 ####[facility] LABIA [id number] [place] [address] [place] Hemoglobin (Bld) [Mass/Vol] 9.0 g/dL Low 11.5-15.5 [facility] Comment on above: Order Comment: Speci men Type: BLOOD SPECIMENOrdering Facility: [facility] Address: [address] [place] [address] Performed By: #### 5 7021-8 ####[facility] LABIA [id number] [place] [address] [place] Immature granulocytes (Bld) [#/Vol] 10*3/uL Normal <0.10 [facility] Comment on above: Order Comment: Speci men Type: BLOOD SPECIMENOrdering Facility: [facility] Address: [address] [place] [address] Performed By: #### 5 7021-8 ####[facility] LABIA [id number] [place] [address] [place] Immature granulocytes/100 WBC (Bld) 0.0 % Normal [facility] Comment on above: Order Comment: Speci men Type: BLOOD SPECIMENOrdering Facility: [facility] Address: [address] [place] [address] Performed By: #### 5 7021-8 ####[facility] LABCLIA [id number] [place] [address] [place] Lymphocytes (Bld) [#/Vol] 1.56 10*3/uL Normal 1.00-4.00 [facility] Comment on above: Order Comment: Speci men Type: BLOOD SPECIMENOrdering Facility: [facility] Address: [address] [place] [address] Performed By: #### 5 7021-8 ####[facility] LABCLIA [id number] [place] [address] [place] Lymphocytes/100 WBC (Bld) 49.1 % Normal [facility] Comment on above: Order Comment: Speci men Type: BLOOD SPECIMENOrdering Facility: [facility] Address: [address] [place] [address] Performed By: #### 5 7021-8 ####[facility] LABCLIA [id number] [place] [address] [place] MCH (RBC) [Entitic mass] 23.3 pg Low 26.0-34.0 [facility] Comment on above: Order Comment: Speci men Type: BLOOD SPECIMENOrdering Facility: [facility] Address: [address] [place] [address] Performed By: #### 5 7021-8 ####[facility] LABCLIA [id number] [place] [address] [place] MCHC (RBC) [Mass/Vol] 28.8 g/dL Low 30.5-36.0 [facility] Comment on above: Order Comment: Speci men Type: BLOOD SPECIMENOrdering Facility: [facility] Address: [address] [place] [address] Performed By: #### 5 7021-8 ####[facility] LABCLIA [id number] [place] [address] [place] MCV (RBC) [Entitic vol] 80.8 fL Normal 80.0-100.0 [facility] Comment on above: Order Comment: Speci men Type: BLOOD SPECIMENOrdering Facility: [facility] Address: [address] [place] [address] Performed By: #### 5 7021-8 ####[facility] LABCLIA [id number] [place] [address] [place] Monocytes (Bld) [#/Vol] 0.44 10*3/uL Normal <0.87 [facility] Comment on above: Order Comment: Speci men Type: BLOOD SPECIMENOrdering Facility: [facility] Address: [address] [place] [address] Performed By: #### 5 7021-8 ####[facility] LABCLIA [id number] [place] [address] [place] Monocytes/100 WBC (Bld) 13.8 % Normal [facility] Comment on above: Order Comment: Speci men Type: BLOOD SPECIMENOrdering Facility: [facility] Address: [address] [place] [address] Performed By: #### 5 7021-8 ####[facility] LABCLIA [id number] [place] [address] [place] Neutrophils (Bld) [#/Vol] 1.12 10*3/uL Low 1.45-7.50 [facility] Comment on above: Order Comment: Speci men Type: BLOOD SPECIMENOrdering Facility: [facility] Address: [address] [place] [address] Performed By: #### 5 7021-8 ####[facility] LABCLIA [id number] [place] [address] [place] Neutrophils/100 WBC (Bld) 35.2 % Normal [facility] Comment on above: Order Comment: Speci men Type: BLOOD SPECIMENOrdering Facility: [facility] Address: [address] [place] [address] Performed By: #### 5 7021-8 ####[facility] LABCLIA [id number] [place] [address] [place] Nucleated RBC (Bld) [#/Vol] 10*3/uL Normal <0.01 [facility] Comment on above: Order Comment: Speci men Type: BLOOD SPECIMENOrdering Facility: [facility] Address: [address] [place] [address] Performed By: #### 5 7021-8 ####[facility] LABCLIA [id number] [place] [address] [place] Nucleated RBC/100 WBC (Bld) [Ratio] 0.0 /100 WBC Normal [facility] Comment on above: Order Comment: Speci men Type: BLOOD SPECIMENOrdering Facility: [facility] Address: [address] [place] [address] Performed By: #### 5 7021-8 ####[facility] LABCLIA [id number] [place] [address] [place] Platelet mean volume (Bld) [Entitic vol] 10.1 fL Normal 9.0-12.7 [facility] Comment on above: Order Comment: Speci men Type: BLOOD SPECIMENOrdering Facility: [facility] Address: [address] [place] [address] Performed By: #### 5 7021-8 ####[facility] LABCLIA [id number] [place] [address] [place] Platelets (Bld) [#/Vol] 162 10*3/uL Normal 150-400 [facility] Comment on above: Order Comment: Speci men Type: BLOOD SPECIMENOrdering Facility: [facility] Address: [address] [place] [address] Performed By: #### 5 7021-8 ####[facility] LABCLIA [id number] [place] [address] [place] RBC (Bld) [#/Vol] 3.86 10*6/uL Low 3.90-5.20 [facility] Comment on above: Order Comment: Speci men Type: BLOOD SPECIMENOrdering Facility: [facility] Address: [address] [place] [address] Performed By: #### 5 7021-8 ####[facility] LABCLIA [id number] [place] [address] [place] WBC (Bld) [#/Vol] 3.18 10*3/uL Low 3.70-11.00 [facility] Comment on above: Order Comment: Speci men Type: BLOOD SPECIMENOrdering Facility: [facility] Address: [address] [place] [address] Performed By: #### 5 7021-8 ####[facility] LABIA [id number] [place] [address] [place] CNOVon 07-08-2024 CNOV Office Visit (FAMPWS) CAROLA HARDING ([id number]) 1990 F Date Time Provider Department 07/08/24 11:00 AM MARLYN ESTRADA FAMPWS During your visit today, we recorded the following information about you: Pulse Respiration Blood pressure Weight 66/minute 14/minute 108/62 40.8 kg Marlyn Estrada, STEFANIE.SEAMER OPERATOR 07/08/2024 11:26 AM Signed Chief Complaint Patient presents with: [facility] follow up HPI Carola Harding is a 33 year old female who presents here today for Above Complaints. Carola is an established patient of Dr. Vicente DO. Concerns today... ER follow-up --- [facility] ER visit on 07/03 d/t fever and [...] Laterality Date COLONOSCOPY SCREENING 08/21/2023 EGD W/O [facility] SPEC VARICIES INJ 08/21/2023 PAST SURGICAL [...] no acut (more content not included)... Normal [facility] Ana 07-08-2024 FRANCIE Telephone (4CQ) CAROLA HARDING ([id number]) 1990 F Date Time Provider Department 07/08/24 [...] Did have labs done 10/30/23) Marlyn Estrada APRN.SEAMER OPERATOR 07/08/2024 12:00 PM Signed Recent ER visit at [facility] on 07/03 with microcytic anemia, hgb 8.9. [...] Date Reviewed: 07/08/2024 Reviewed by: Marlyn Estrada APRN.SEAMER OPERATOR - Fully Assessed Reason for Visit: Appointment [...] Status:Closed by HERMES CASTRO on 07/08/24 Normal [facility] metabolic 2000 panelon 07-08-2024 Albumin [Mass/Vol] 3.8 g/dL Low 3.9-4.9 [facility] Comment on above: Order Comment: Speci men Type: BLOOD SPECIMENOrdering Facility: [facility] Address: [address] [place] [address] Performed By: #### 2 4323-8, 6-4, 29081-2 ####[facility] LABCLIA [id number] [facility] [place] [address] [place] ALP [Catalytic activity/Vol] 58 U/L Normal 34-123 [facility] Comment on above: Order Comment: Speci men Type: BLOOD SPECIMENOrdering Facility: [facility] Address: [address] [place] [address] Performed By: #### 2 4323-8, 6-4, 48189-6 ####[facility] LABCLIA [id number] [place] [address] [place] ALT [Catalytic activity/Vol] 11 U/L Normal 7-38 [facility] Comment on above: Order Comment: Speci men Type: BLOOD SPECIMENOrdering Facility: [facility] Address: [address] [place] [address] Performed By: #### 2 4323-8, 2275-, 70942-9 ####[facility] LABCLIA [id number] [place] [id number] [place] Anion gap [Moles/Vol] 9 mmol/L Normal 8-15 [facility] Comment on above: Order Comment: Speci men Type: BLOOD SPECIMENOrdering Facility: [facility] Address: [address] [place] [address] Performed By: #### 2 4323-8, 2275-4, 08262-2 ####[facility] LABCLIA [id number] [facility] [address] [address] [place] AST [Catalytic activity/Vol] 17 U/L Normal 13-35 [facility] Comment on above: Order Comment: Speci men Type: BLOOD SPECIMENOrdering Facility: [facility] Address: [address] [place] [address] Performed By: #### 2 4323-8, 6-4, 02297-7 ####[facility] LABCLIA [id number] [address] [address] [place] Bilirubin [Mass/Vol] mg/dL Low 0.2-1.3 [facility] Comment on above: Order Comment: Speci men Type: BLOOD SPECIMENOrdering Facility: [facility] Address: [address] [place], [place] [address] Performed By: #### 2 4323-8, 6-4, 09043-6 ####[facility] LABCLIA [id number] [place] [address] [place] Calcium [Mass/Vol] 8.7 mg/dL Normal 8.5-10.2 [facility] Comment on above: Order Comment: Speci men Type: BLOOD SPECIMENOrdering Facility: [facility] Address: [address] [place] [address] Performed By: #### 2 4323-8, 6-4, 54150-1 ####[facility] LABCLIA [id number] [place] [address] [place] Chloride [Moles/Vol] 106 mmol/L Normal 98-107 [facility] Comment on above: Order Comment: Speci men Type: BLOOD SPECIMENOrdering Facility: [facility] Address: [address] [place] [address] Performed By: #### 2 4323-8, 6-4, 43142-7 ####[facility] LABCLIA [id number] [place] [id number] [place] CO2 [Moles/Vol] 28 mmol/L Normal 22-30 [facility] Comment on above: Order Comment: Speci men Type: BLOOD SPECIMENOrdering Facility: [facility] Address: [address] [place] [address] Performed By: #### 2 4323-8, 2276-4, 41570-9 ####[facility] LABIA [id number] [place] [id number] [place] Creatinine [Mass/Vol] 0.66 mg/dL Normal 0.58-0.96 [facility] Comment on above: Order Comment: Specrose men Type: BLOOD SPECIMENOrdering Facility: [facility] Address: [address] [place] [address] Performed By: #### 2 4323-8, 6-4, 58293-8 ####[facility] LABIA [id number] [place] [address] [place] Creatinine and Glomerular filtration rate.predicted panel (S/P/Bld) 119 mL/min/1.73m??? Normal >=60 [facility] Comment on above: Order Comment: Ada castañeda Type: BLOOD SPECIMENOrdering Facility: [facility] Address: [address] [place] [address] Result Comment: Nori mated Glomerular Filtration Rate [...] GFR. Performed By: #### 2 4323-8, 6-4, 04696-2 ####[facility] LABIA [id number] [place] [id number] [place] Glucose [Mass/Vol] 62 mg/dL Low 74-99 [facility] Comment on above: Order Comment: Kevoni men Type: BLOOD SPECIMENOrdering Facility: [facility] Address: [address] [place] [address] Result Comment: The [place] Diabetes Association (ADA) provides guidance for cutoff [...] Standards of Medical Care in Diabetes 2016, [place] [employer]. Diabetes Care. 2016.39(Suppl 1). Performed By: #### 2 4323-8, 2275-4, 69121-6 ####[facility] LABCLIA [id number] [place] [address] [place] Potassium [Moles/Vol] 3.6 mmol/L Low 3.7-5.1 [facility] Comment on above: Order Comment: Speci men Type: BLOOD SPECIMENOrdering Facility: [facility] Address: [address] [place] [address] Performed By: #### 2 4323-8, 2275-09, 35656-3 ####[facility] LABIA [id number] [place] [address] [place] Protein [Mass/Vol] 6.1 g/dL Low 6.3-8.0 [facility] Comment on above: Order Comment: Speci men Type: BLOOD SPECIMENOrdering Facility: [facility] Address: [address] [place], [place] [address] Performed By: #### 2 4323-8, 2275-09, 00554-3 ####[facility] LABIA [id number] [place] [id number] [place] Sodium [Moles/Vol] 143 mmol/L Normal 136-144 [facility] Comment on above: Order Comment: Speci men Type: BLOOD SPECIMENOrdering Facility: [facility] Address: [address] [place], [place] [id number] Performed By: #### 2 4323-8, 2275-09, 69545-7 ####[facility] LABCLIA [id number] [address] [address] [place] Urea nitrogen [Mass/Vol] 11 mg/dL Normal 7-21 [facility] Comment on above: Order Comment: Speci men Type: BLOOD SPECIMENOrdering Facility: [facility] Address: [address] [place] [address] Performed By: #### 2 4323-8, 2275-, 05023-3 ####[facility] LABCLIA [id number] [place] [id number] [place] Ferritin [facility] Ferritin [Mass/Vol] 7.1 ng/mL Low 14.7-205.1 [facility] Comment on above: Order Comment: Speci men Type: BLOOD SPECIMENOrdering Facility: [facility] Address: [address] [place] [address] Performed By: #### 2 4323-8, 6-4, 14918-4 ####[facility] LABIA [id number] [place] [id number] [place] Iron and Iron binding capaci panelon 07-08-2024 Iron [Mass/Vol] 13 ug/dL Low 41-186 [facility] Comment on above: Order Comment: Speci men Type: BLOOD SPECIMENOrdering Facility: [facility] Address: [address] [place] [address] Performed By: #### 2 4323-8, 6-4, 12312-7 ####[facility] LABIA [id number] [place] [id number] [place] Iron binding capacity [Mass/Vol] 367 ug/dL Normal 232-386 [facility] Comment on above: Order Comment: Speci men Type: BLOOD SPECIMENOrdering Facility: [facility] Address: [address] [place] [address] Performed By: #### 2 4323-8, 2275-4, 65309-1 ####[facility] LABCLIA [id number] [place] [id number] [place] Iron/TIBC [Molar ratio] 3.5 % Low 15.0-57.0 [facility] Comment on above: Order Comment: Speci men Type: BLOOD SPECIMENOrdering Facility: [facility] Address: [address] [place] [address] [place] [address] Performed By: #### 2 4323-8, 2276-4, 13904-5 ####[facility] LABCLIA [id number] [place] [id number] [place] CBC W/Diff, Automatedon 06-13 PATH REV Reviewed Normal [facility] Comment on above: Result Comment: Leuk openia and neutropenia.Microcytic anemia. Clinical correlation necessary. Chidi Beasley M.D. 07/04/24 AMENDED REPORT 07/04/24 1427 PATH REV previously reported as: October Performed By: #### L 501.2450, L503.6620, L501.4020, L500.3400, L100.0100, L500.2500 ####[facility] [address] [place], [address] 12 Lead EKGon 07-03-[address] [facility] Cardiovascular Services [address] [place] [address] 12 Lead EKG 07/03/24 1759 MR#: [id number] Acct: [id number] Name: CAROLA HARDING Rep #: [id number] : 1990 33 From: Jacki Osborne MD [...] Abnormal ECG Confirmed by JORDAN LEMON, GINNA ([id number]), communications editor ANICETO RUDD ([id number]) on 07/09/2024 7:09:28 AM Referred By: ALEX Confirmed By: GINNA OSBORNE MD 07/09/24 0709 Date Jacki Osborne MD CC: Dr. Breonna Drew, DO; Dr. Jamari Zhang, DO Signed Normal [facility] BNP,B-Type NATRIURETIC PEPTI Alison 07-03-2024 Natriuretic peptide B (Bld) [Mass/Vol] 14.4 pg/mL Normal 0-100 [facility] Comment on above: Performed By: #### L 501.2450, L503.6620, L501.4020, L500.3400, L100.0100, L500.2500 ####[facility] [address] [place], [address] Basic Metabolic Profile (BMP )on 07-03-2024 BUN/CRE 7.3 RATIO Low 10-20 [facility] Comment on above: Order Comment: 'TROP ' Serial specimen #1, #2 or #3: 1 Performed By: #### L 501.2450, L503.6620, L501.4020, L500.3400, L100.0100, L500.2500 ####[facility] [address] [place], [address] CA,Total 8.9 mg/dL Normal 8.5-10.1 [facility] Comment on above: Order Comment: 'TROP ' Serial specimen #1, #2 or #3: 1 Performed By: #### L 501.2450, L503.6620, L501.4020, L500.3400, L100.0100, L500.2500 ####[facility] [address] [place], [address] Chloride [Moles/Vol] 106 mmol/L Normal 98-107 [facility] Comment on above: Order Comment: 'TROP ' Serial specimen #1, #2 or #3: 1 Performed By: #### L 501.2450, L503.6620, L501.4020, L500.3400, L100.0100, L500.2500 ####[facility] [address] [place], [address] CO2 [Moles/Vol] 27.0 mmol/L Normal 21.0-32.0 [facility] Comment on above: Order Comment: 'TROP ' Serial specimen #1, #2 or #3: 1 Performed By: #### L 501.2450, L503.6620, L501.4020, L500.3400, L100.0100, L500.2500 ####[facility] [address] [place], [address] Creatinine [Mass/Vol] 0.68 mg/dL Normal 0.55-1.02 [facility] Comment on above: Order Comment: 'TROP ' Serial specimen #1, #2 or #3: 1 Result Comment: The validity of the calculated GFR GFRAA in patients over 70 years has not been determined. Clinical correlation is essential. Performed By: #### L 501.2450, L503.6620, L501.4020, L500.3400, L100.0100, L500.2500 ####[facility] [address] [place], [address] ECRCL 76.72 ml/min Normal [facility] Comment on above: Order Comment: 'TROP ' Serial specimen #1, #2 or #3: 1 Performed By: #### L 501.2450, L503.6620, L501.4020, L500.3400, L100.0100, L500.2500 ####[facility] [address] [place], [address] EST GFR - AA 127 mL/min Normal >60 [facility] Comment on above: Order Comment: 'TROP ' Serial specimen #1, #2 or #3: 1 Result Comment: Afri can [place] GFR Calc Performed By: #### L 501.2450, L503.6620, L501.4020, L500.3400, L100.0100, L500.2500 ####[facility] [address] [place], [place], [address] GAP 7 Normal 5-15 [facility] Comment on above: Order Comment: 'TROP ' Serial specimen #1, #2 or #3: 1 Performed By: #### L 501.2450, L503.6620, L501.4020, L500.3400, L100.0100, L500.2500 ####[facility] [address] [place], [place], [address] GFR/1.73 sq M.predicted among non-blacks MDRD (S/P/Bld) [Vol rate/Area] 105 mL/min/{1.73_m2} Normal >60 [facility] Comment on above: Order Comment: 'TROP ' Serial specimen #1, #2 or #3: 1 Result Comment: Non- GFR Calc Performed By: #### L 501.2450, L503.6620, L501.4020, L500.3400, L100.0100, L500.2500 ####[facility] [address] [place], [place], [address] Glucose [Mass/Vol] 100 mg/dL Normal 74-106 [facility] Comment on above: Order Comment: 'TROP ' Serial specimen #1, #2 or #3: 1 Result Comment: Fast ing Glucose result from 100 to 125 mg/dL suggests IMPAIRED HOMEOSTASIS per A.D.A. criteria. Performed By: #### L 501.2450, L503.6620, L501.4020, L500.3400, L100.0100, L500.2500 ####[facility] [address] [place], [place], [address] Potassium [Moles/Vol] 3.6 mmol/L Normal 3.5-5.1 [facility] Comment on above: Order Comment: 'TROP ' Serial specimen #1, #2 or #3: 1 Performed By: #### L 501.2450, L503.6620, L501.4020, L500.3400, L100.0100, L500.2500 ####[facility] [address] [place], [place], [address] Sodium [Moles/Vol] 140 mmol/L Normal 136-145 [facility] Comment on above: Order Comment: 'TROP ' Serial specimen #1, #2 or #3: 1 Performed By: #### L 501.2450, L503.6620, L501.4020, L500.3400, L100.0100, L500.2500 ####[facility] [address] [place], [place], [address] Urea nitrogen [Mass/Vol] 5 mg/dL Low 7-18 [facility] Comment on above: Order Comment: 'TROP ' Serial specimen #1, #2 or #3: 1 Performed By: #### L 501.2450, L503.6620, L501.4020, L500.3400, L100.0100, L500.2500 ####[facility] [address] [place], [place], [address] CNOVon 07-03-2024 CNOV Office Visit (UCWSTR) CAROLA HARDING ([id number]) 1990 F Date Time Provider Department 07/03/24 2:00 PM [facility] During your visit today, we recorded the following information about you: Temperature Pulse Respiration Blood pressure 98.3 degrees 84/minute 16/minute 90/60 Weight 41.9 kg Josemanuel Romero PA-C 07/03/2024 2:04 PM Signed This note was created using [employer]. Celine Harding is a 33 year old female. Patient is a 33-year-old female who complains of sore throat and a headache that she has been experiencing for the past 1 day. Patient also describes body aches. Patient states that prior to arrival at this [facility] care facility she also developed [...] scan imaging cannot be performed at this [facility] care facility. Supportive care instructions [...] Acute gastroenteritis [K52.9] Order(s):STREP A MOLECULAR (POC) [8028336] Order #: [id number]. #:[id number] ondansetron orally disintegrating (ZOFRAN ODT) 4 mg [...] 100 mg (more content not included)... Normal [facility] Chest PA and Lateralon 07-[address] [facility] Imaging Services [address] [place], [place] [id number] Chest PA and Lateral MR#: [id number] Acct: [id number] Name: CAROLA HARDING Rep #: [id number] : 1990 F 33 From: Sherif Abdullahi MD PCP: Dr. Jamari Zhang DO Status: REG ER Study: Chest PA and Lateral Date of Exam: 07/03/24 Exam# [id number] Ordering Dr: Breonna Drew DO [id number] STUDY: X-RAY CHEST REASON FOR EXAM: Female, [...] 18:40 EST Reading Location ID and State: [address] [place] [address] Tel , Service support , CC: Dr. Breonna Drew DO; Dr. Jamari Zhang DO Building Performance Consultant: Signed Normal [facility] Emergency Department Summary on 07-03-2024 Emergency Department Summary [facility] Medical Records Department [address] [place] [address] Emergency Department Summary 07/03/24 MR#: [id number] Acct: [id number] Name: CAROLA HARDING Rep #: [id number] : 1990 33 From: Breonna Drew DO [...] for further evaluation especially with her history. [facility] Medical History Autoimmune gastritis Anxiety and [...] Bilateral cerum (more content not included)... Normal [facility] L501.4020on 07-03-2024 TROPONIN-I HS 19 pg/mL Normal 3.0-54.0 [facility] Comment on above: Order Comment: 'TROP ' Serial specimen #1, #2 or #3: 1 Result Comment: Plea se Note: New Test Units and Gender Specific Reference Ranges. For more information see Policy Stat Procedure [place] High Sensitivity Troponin (TNIH) and attachments. Performed By: #### L 501.2450, L503.6620, L501.4020, L500.3400, L100.0100, L500.2500 ####[facility] [address] [place], [place], [address] Lipaseon 07-03-2024 Lipase [Catalytic activity/Vol] 30 U/L Normal 13-75 [facility] Comment on above: Order Comment: 'TROP ' Serial specimen #1, #2 or #3: 1 Result Comment: Plea se note: LIPASE revised reference range effective 22. New Lipase methodology. Expected to produce lower values than the previous assay method. NEW Reference Range: 13 - 75 U/L Performed By: #### L 501.2450, L503.6620, L501.4020, L500.3400, L100.0100, L500.2500 ####[facility] [address] [place], [address] Liver Profileon 07-03-2024 Albumin [Mass/Vol] 3.4 g/dL Normal 3.2-5.0 [facility] Comment on above: Order Comment: 'TROP ' Serial specimen #1, #2 or #3: 1 Performed By: #### L 501.2450, L503.6620, L501.4020, L500.3400, L100.0100, L500.2500 ####[facility] [address] [place], [address] ALK P 63 U/L Normal 45-117 [facility] Comment on above: Order Comment: 'TROP ' Serial specimen #1, #2 or #3: 1 Performed By: #### L 501.2450, L503.6620, L501.4020, L500.3400, L100.0100, L500.2500 ####[facility] [address] [place], [address] ALT [Catalytic activity/Vol] 16 U/L Normal 13-56 [facility] Comment on above: Order Comment: 'TROP ' Serial specimen #1, #2 or #3: 1 Performed By: #### L 501.2450, L503.6620, L501.4020, L500.3400, L100.0100, L500.2500 ####[facility] [address] [place], [address] AST [Catalytic activity/Vol] 15 U/L Normal 15-37 [facility] Comment on above: Order Comment: 'TROP ' Serial specimen #1, #2 or #3: 1 Performed By: #### L 501.2450, L503.6620, L501.4020, L500.3400, L100.0100, L500.2500 ####[facility] [address] [place], [address] Bilirubin [Mass/Vol] 0.20 mg/dL Normal 0.20-1.00 [facility] Comment on above: Order Comment: 'TROP ' Serial specimen #1, #2 or #3: 1 Result Comment: For patients on eltrombopag therapy, use of Dimension [place] TBIL is not recommended. Performed By: #### L 501.2450, L503.6620, L501.4020, L500.3400, L100.0100, L500.2500 ####[facility] [address] [place], [address] Bilirubin.direct [Mass/Vol] 0.08 mg/dL Normal 0.00-0.30 [facility] Comment on above: Order Comment: 'TROP ' Serial specimen #1, #2 or #3: 1 Performed By: #### L 501.2450, L503.6620, L501.4020, L500.3400, L100.0100, L500.2500 ####[facility] [address] [place], [address] Globulin (S) [Mass/Vol] 3.3 g/dL Normal 2.2-4.2 [facility] Comment on above: Order Comment: 'TROP ' Serial specimen #1, #2 or #3: 1 Performed By: #### L 501.2450, L503.6620, L501.4020, L500.3400, L100.0100, L500.2500 ####[facility] [address] [place], [address] T PROT 6.7 g/dL Normal 6.4-8.2 [facility] Comment on above: Order Comment: 'TROP ' Serial specimen #1, #2 or #3: 1 Performed By: #### L 501.2450, L503.6620, L501.4020, L500.3400, L100.0100, L500.2500 ####[facility] [address] [place], [address] M100.677on 07-03-2024 M100.677 Negative Normal [facility] Comment on above: Performed By: #### M 100.677, M100.678 #### [facility] [address] [place], [place], [address] M100.678on 07-03-2024 M100.678 Pending SARS-CoV-2 (COVID 19) Negative INFLUENZA A Negative INFLUENZA B Negative RSV PCR Negative Normal [facility] Comment on above: Performed By: #### M 100.677, M100.678 #### [facility] [address] [place], [place], [address] STREP A MOLECULAR (POC)on Procedural Control Valid [facility] Strep A (POCT) Negative Negative [facility] CNOVon 04-03-2024 CNOV Office Visit (FAMPWS) CAROLA HARDING ([id number]) 1990 F Date Time Provider Department 04/03/24 [...] reviewed ASSESSMENT/P (more content not included)... Normal [facility] Chest PA and Lateralon 04-[address] L[address] [facility] Imaging Services [address] [place], [place] [address] Chest PA and Lateral MR#: [id number] Acct: [id number] Name: CAROLA HARDING Rep #: [id number] : 1990 F 33 From: Krishna Barrios MD PCP: Dr. Jamari Zhang DO Status: [facility] ER Study: Chest PA and Lateral Date of Exam: 04/02/24 Exam# [id number] Ordering Dr: Yahir العراقي DO [id number] INDICATION: cough EXAMINATION/TECHNIQU E: X-RAY - XR [...] Dr. Jamari Zhang DO; Yahir العراقي DO Building Performance Consultant: Signed Normal [facility] Emergency Department Summary on 04-02-2024 Emergency Department Summary [facility] Medical Records Department [address] [place] [address] Emergency Department Summary 04/02/24 MR#: [id number] Acct: [id number] Name: CAROLA HARDING Rep #: [id number] : 1990 33 From: Yahir العراقي DO PCP: Dr. Jamari Zhang DO Status:[facility] ER Location: ED HPI History of Present [...] hospitalization and therefore she presents for evaluation [facility] Medical History Autoimmune gastritis Anxiety and [...] nuchal ri (more content not included)... Normal [facility] M100.678on 04-02-2024 M100.678 Pending SARS-CoV-2 (COVID 19) Negative INFLUENZA A Negative INFLUENZA B Negative RSV PCR Negative Normal [facility] Comment on above: Performed By: #### M 100.678 #### [facility] [address] [place], [place], [id number] Anti-Parietal Cell AB, QNon 02-27-2024 ANTIPARIET CELL 143.0 Units High 0.0-20.0 [facility] Comment on above: Result Comment: Nega tive 0.0 - 20.0 Equivocal 20.1 - 24.9 Positive >24.9 Parietal Cell Antibodies are found in 90% of patients with pernicious anemia and 30% of first degree relatives with pernicious anemia. Performed By: #### L 100.9950, L100.0100, L503.6150, L3410.1000, L506.0250, L503.6550, L3400.8000, L503.6075, L3410.0900 ####[facility] [address] [place], [address] Intrinsic Factor Abon 2023 INTRINS FACT AB 1.0 AU/mL Normal 0.0-1.1 [facility] Comment on above: Result Comment: Perf ormed at: - [facility] [id number] Electric Transfer Operator: Rodney Quezada PhD, Phone: [phone] Performed at: [facility] [address] [id number] Electric Transfer Operator: Victorino Erazo MD, Phone: [phone] Performed By: #### L 100.9950, L100.0100, L503.6150, L3410.1000, L506.0250, L503.6550, L3400.8000, L503.6075, L3410.0900 ####[facility] [address] [place], [address] Quantiferon TB-Gold+on 02-26 QFT MITOGEN JULIANO > 10.00 Normal . [facility] Comment on above: Performed By: #### L 100.9950, L100.0100, L503.6150, L3410.1000, L506.0250, L503.6550, L3400.8000, L503.6075, L3410.0900 ####[facility] [address] [place], [address] QFT NIL VALUE 0.13 IU/mL Normal . [facility] Comment on above: Performed By: #### L 100.9950, L100.0100, L503.6150, L3410.1000, L506.0250, L503.6550, L3400.8000, L503.6075, L3410.0900 ####[facility] [address] [place], [address] QFT TB GOLD+ Comment Normal . [facility] Comment on above: Result Comment: Oseas tiFERON-TB [...] L503.6150, L3410.1000, L506.0250, L503.6550, L3400.8000, L503.6075, L3410.0900 ####[facility] [address] [place], [address] QFT TB POS CRIT Negative Normal Negative [facility] Comment on above: Result Comment: No r [...] L503.6150, L3410.1000, L506.0250, L503.6550, L3400.8000, L503.6075, L3410.0900 ####[facility] [address] [place], [address] QFT TB1+ AG JULIANO 0.08 IU/mL Normal . [facility] Comment on above: Performed By: #### L 100.9950, L100.0100, L503.6150, L3410.1000, L506.0250, L503.6550, L3400.8000, L503.6075, L3410.0900 ####[facility] [address] [place], [address] QFT TB2+ AG JULIANO 0.24 IU/mL Normal . [facility] Comment on above: Performed By: #### L 100.9950, L100.0100, L503.6150, L3410.1000, L506.0250, L503.6550, L3400.8000, L503.6075, L3410.0900 ####[facility] [address] [place], [address] CBC W/Diff, Automatedon 02-10 Absolute Lymph 1.44 X10 3/uL Normal 0.83-4.51 [facility] Comment on above: Performed By: #### L 100.9950, L100.0100, L503.6150, L3410.1000, L506.0250, L503.6550, L3400.8000, L503.6075, L3410.0900 #### [facility] [address] [place], [address] Absolute Neut 3.0 X10 3/uL Normal 2.0-7.7 [facility] Comment on above: Performed By: #### L 100.9950, L100.0100, L503.6150, L3410.1000, L506.0250, L503.6550, L3400.8000, L503.6075, L3410.0900 #### [facility] [address] [place], [address] Basophils/100 WBC (Bld) 0.4 % Normal 0-1 [facility] Comment on above: Performed By: #### L 100.9950, L100.0100, L503.6150, L3410.1000, L506.0250, L503.6550, L3400.8000, L503.6075, L3410.0900 #### [facility] [address] [place], [address] Eosinophils/100 WBC (Bld) 1.8 % Normal 0-5 [facility] Comment on above: Performed By: #### L 100.9950, L100.0100, L503.6150, L3410.1000, L506.0250, L503.6550, L3400.8000, L503.6075, L3410.0900 #### [facility] [address] [place], [address] Erythrocyte distribution width (RBC) [Ratio] 11.5 % Low 11.6-14.6 [facility] Comment on above: Performed By: #### L 100.9950, L100.0100, L503.6150, L3410.1000, L506.0250, L503.6550, L3400.8000, L503.6075, L3410.0900 #### [facility] [address] [place], [address] Hematocrit (Bld) [Volume fraction] 37.9 % Normal 37-47 [facility] Comment on above: Performed By: #### L 100.9950, L100.0100, L503.6150, L3410.1000, L506.0250, L503.6550, L3400.8000, L503.6075, L3410.0900 #### [facility] [address] [place], [address] Hemoglobin (Bld) [Mass/Vol] 12.0 g/dL Normal 12.0-15.0 [facility] Comment on above: Performed By: #### L 100.9950, L100.0100, L503.6150, L3410.1000, L506.0250, L503.6550, L3400.8000, L503.6075, L3410.0900 #### [facility] [address] [place], [address] IG% 0.200 Normal 0.0-0.9 [facility] Comment on above: Result Comment: IG% - Immature Granulocytes (promyelocytes, myelocytes and metamyelocytes) > 1% indicates that a LEFT SHIFT is Present. Performed By: #### L 100.9950, L100.0100, L503.6150, L3410.1000, L506.0250, L503.6550, L3400.8000, L503.6075, L3410.0900 #### [facility] [address] [place], [address] (475 Lymphocytes/100 WBC (Bld) 29.3 % Normal 19-41 [facility] Comment on above: Performed By: #### L 100.9950, L100.0100, L503.6150, L3410.1000, L506.0250, L503.6550, L3400.8000, L503.6075, L3410.0900 #### [facility] [address] [place], [address] MCH (RBC) [Entitic mass] 28.2 pg Normal 27.0-32.0 [facility] Comment on above: Performed By: #### L 100.9950, L100.0100, L503.6150, L3410.1000, L506.0250, L503.6550, L3400.8000, L503.6075, L3410.0900 #### [facility] [address] [place], [address] MCHC (RBC) [Mass/Vol] 31.7 g/dL Low 32-36 [facility] Comment on above: Performed By: #### L 100.9950, L100.0100, L503.6150, L3410.1000, L506.0250, L503.6550, L3400.8000, L503.6075, L3410.0900 #### [facility] [address] [place], [address] MCV (RBC) [Entitic vol] 89.2 fL Normal 81-99 [facility] Comment on above: Performed By: #### L 100.9950, L100.0100, L503.6150, L3410.1000, L506.0250, L503.6550, L3400.8000, L503.6075, L3410.0900 #### [facility] [address] [place], [address] Monocytes/100 WBC (Bld) 7.5 % Normal 0-10 [facility] Comment on above: Performed By: #### L 100.9950, L100.0100, L503.6150, L3410.1000, L506.0250, L503.6550, L3400.8000, L503.6075, L3410.0900 #### [facility] [address] [place], [address] Neutrophils/100 WBC (Bld) 60.8 % Normal 47-70 [facility] Comment on above: Performed By: #### L 100.9950, L100.0100, L503.6150, L3410.1000, L506.0250, L503.6550, L3400.8000, L503.6075, L3410.0900 #### [facility] [facility] [address] [place], [address] Nucleated RBC (Bld) [#/Vol] 0 10*3/uL Normal 0-5 [facility] Comment on above: Performed By: #### L 100.9950, L100.0100, L503.6150, L3410.1000, L506.0250, L503.6550, L3400.8000, L503.6075, L3410.0900 #### [facility] [address] [place], [address] Platelet mean volume (Bld) [Entitic vol] 9.9 fL Normal 6.2-12.0 [facility] Comment on above: Performed By: #### L 100.9950, L100.0100, L503.6150, L3410.1000, L506.0250, L503.6550, L3400.8000, L503.6075, L3410.0900 #### [facility] [address] [place], [address] Platelets (Bld) [#/Vol] 226 10*3/uL Normal 150-450 [facility] Comment on above: Performed By: #### L 100.9950, L100.0100, L503.6150, L3410.1000, L506.0250, L503.6550, L3400.8000, L503.6075, L3410.0900 #### [facility] [address] [place], [address] RBC (Bld) [#/Vol] 4.25 10*6/uL Normal 4.2-5.4 [facility] Comment on above: Performed By: #### L 100.9950, L100.0100, L503.6150, L3410.1000, L506.0250, L503.6550, L3400.8000, L503.6075, L3410.0900 #### [facility] [address] [place], [address] RDW SD 37.0 fl Normal 35.1-43.9 [facility] Comment on above: Performed By: #### L 100.9950, L100.0100, L503.6150, L3410.1000, L506.0250, L503.6550, L3400.8000, L503.6075, L3410.0900 #### [facility] [address] [place], [address] WBC (Bld) [#/Vol] 4.9 10*3/uL Normal 4.4-11.0 [facility] Comment on above: Performed By: #### L 100.9950, L100.0100, L503.6150, L3410.1000, L506.0250, L503.6550, L3400.8000, L503.6075, L3410.0900 #### [facility] [address] [place], [place], [id number] ([phone] Ferritinon 02-22-2024 Ferritin [Mass/Vol] 4 ng/mL Low 8-252 [facility] Comment on above: Order Comment: N Performed By: #### L 100.9950, L100.0100, L503.6150, L3410.1000, L506.0250, L503.6550, L3400.8000, L503.6075, L3410.0900 ####[facility] [address] [facility] [place], [address] Folates, (Folic Acid)on 02-10 FOLATES 6.10 ng/mL Normal 3.1-55.4 [facility] Comment on above: Order Comment: N Performed By: #### L 100.9950, L100.0100, L503.6150, L3410.1000, L506.0250, L503.6550, L3400.8000, L503.6075, L3410.0900 ####[facility] [address] [place], [address] Ironon 02-22-2024 Iron [Mass/Vol] 32 ug/dL Low 50-170 [facility] Comment on above: Order Comment: N Performed By: #### L 100.9950, L100.0100, L503.6150, L3410.1000, L506.0250, L503.6550, L3400.8000, L503.6075, L3410.0900 ####[facility] [address] [place], [address] Iron Binding Capacity,Totalo n 02-22-2024 TIBC 448 ug/dL Normal 250-450 [facility] Comment on above: Order Comment: N Performed By: #### L 100.9950, L100.0100, L503.6150, L3410.1000, L506.0250, L503.6550, L3400.8000, L503.6075, L3410.0900 ####[facility] [address] [place], [address] Retic Panelon 02-22-2024 IM RET FRACTION 4.60 Normal 3.00-15.90 [facility] Comment on above: Performed By: #### L 100.9950, L100.0100, L503.6150, L3410.1000, L506.0250, L503.6550, L3400.8000, L503.6075, L3410.0900 #### [facility] [address] [place], [address] RET-HE 32.2 pg Normal 30-35 [facility] Comment on above: Performed By: #### L 100.9950, L100.0100, L503.6150, L3410.1000, L506.0250, L503.6550, L3400.8000, L503.6075, L3410.0900 #### [facility] [address] [place], [address] Retic Count 0.66 Normal 0.5-1.5 [facility] Comment on above: Performed By: #### L 100.9950, L100.0100, L503.6150, L3410.1000, L506.0250, L503.6550, L3400.8000, L503.6075, L3410.0900 #### [facility] [address] [place], [address] Gastroenterology Visit Repor ton 02-21-2024 Gastroenterology Visit Report [facility] [address] [place] [address] OFFICE VISIT Date of Service: 02/21/24 MR#: [id number] Acct: [id number] Name: CAROLA HARDING Rep #: [id number] : 1990 Provider: AMY chaudhry Age/Sex: 33/F Location: [facility] Status: Signed Intake Vital Signs 09/01/23 10:50 [...] N/V/D/C. Pt takes prednisone, and zofran daily. [facility] Medical History Autoimmune gastritis Anxiety and [...] using offensive language to communicate disgust with [facility] and not seeing the actual doctor today. [...] Nutritional Appearance: malnourished and underweight Orientation: awake [facility] Head: normal to inspection Ears: hearing grossly normal bilaterally Nose: external nose normal Face and sinus: face symmetric Teeth and gingiva: edentulous Neck Neck: normal visual inspection and full ROM Neck mass: No Chest Chest palpation inspection: normal inspection of the chest Resp Effort Inspection: normal respiratory effort, able to speak (more content not included)... Normal [facility] Comprehensive metabolic 2000 panelOrdered By: Bertha Valdez on 10-30-2023 Albumin [Mass/Vol] 4.3 g/dL 3.9 - 4.9 g/dL [facility] ALP [Catalytic activity/Vol] 52 U/L 34 - 123 U/L [facility] ALT [Catalytic activity/Vol] 11 U/L 7 - 38 U/L [facility] Anion gap [Moles/Vol] 12 mmol/L 9 - 18 mmol/L [facility] AST [Catalytic activity/Vol] 15 U/L 13 - 35 U/L [facility] Bilirubin [Mass/Vol] 0.4 mg/dL 0.2 - 1 .3 mg/dL [facility] Calcium [Mass/Vol] 9.7 mg/dL 8.5 - 10. 2 mg/dL [facility] Chloride [Moles/Vol] 105 mmol/L 97 - 10 5 mmol/L [facility] CO2 [Moles/Vol] 23 mmol/L 22 - 30 mmol/L [facility] Creatinine [Mass/Vol] 0.65 mg/dL 0.58 - 0.96 mg/dL [facility] GFR/1.73 sq M.predicted among non-blacks MDRD (S/P/Bld) [Vol rate/Area] 119 mL/min/{1.73_m2} - PINF [facility] Comment on above: Estimated Glomerular Filtration [...] [Mass/Vol] 90 mg/dL 74 - 99 mg/dL [facility] Comment on above: The [place] Diabete s Association (ADA) provides guidance for [...] Standards of Medical Care in Diabetes 2016, [place] Diabetes Association. Diabetes Care. 2016.39(Suppl 1). Interpretation and review of laboratory results Abnormal [facility] Potassium [Moles/Vol] 4.1 mmol/L 3.7 - 5.1 mmol/L [facility] Protein [Mass/Vol] 6.7 g/dL 6.3 - 8.0 g/dL [facility] Sodium [Moles/Vol] 140 mmol/L 136 - 144 mmol/L [facility] Urea nitrogen [Mass/Vol] 6 mg/dL Low 7 - 21 mg/d L [facility] No Panel Informationon 10-29 Interpretation and review of laboratory results Normal [facility] T3, FREEon 10-30-2023 Free T3 [Mass/Vol] 2.9 pg/mL 2.3 - 4.1 pg/mL [facility] T4 FREE/FREE THYROXINEon Free T4 [Mass/Vol] 0.9 ng/dL 0.9 - 1.7 ng/dL [facility] THYROID STIMULATING HORMONEo n 10-30-2023 TSH Qn 0.620 m[IU]/L [facility] Comment on above: If the patient [...] Dillon et al. 2017 Guidelines of the [place] Thyroid Association for the Diagnosis and Management of Thyroid Disease during and the . Thyroid, 2017:27:3:315-389. TSH Qnon 10-30-2023 Interpretation and review of laboratory results Normal [facility] Basophil percentageOrdered B y: Chris Low on 08-21-2023 Potassium [Moles/Vol] 3.4 mmol/L 3.5-5.1 [facility] Basophil percentageOrdered B y: Mar Mendes on 08-21-2023 Basophil percentage 2.6 mg/dL 2.5-4.9 [facility] Basophil percentageOrdered B y: Nitish Freire on 08-21-2023 Chloride [Moles/Vol] 110 mmol/L 98-107 [facility] Glucose [Mass/Vol] 90 mg/dL 74-106 [facility] Hemoglobin (Bld) [Mass/Vol] 10.0 g/dL 12.0-15.0 [facility] Sodium [Moles/Vol] 144 mmol/L 136-145 [facility] WBC (Bld) [#/Vol] 3.6 10*3/uL 4.4-11.0 [facility] Blood manual differential co mment interpretation (narrative result)Ordered By: Nitish Freire on 08-21-2023 Manual differential comment Gerald (Bld) [Interp] SCANNED [facility] Determination of erythrocyte mean corpuscular volume (MCV)Ordered By: Nitish Freire on 08-21-2023 MCV (RBC) [Entitic vol] 83.5 fL 81-99 [facility] Erythrocyte distribution wid th ratioOrdered By: Nitish Freire on 08-21-2023 Erythrocyte distribution width (RBC) [Ratio] 22.1 % 11.6-14.6 [facility] Erythrocyte distribution wid th standard deviationOrdered By: Nitish Freire on 08-21-2023 Erythrocyte distribution width (RBC) [Entitic vol] 65.9 fL 35.1-43.9 [facility] Hematocrit Auto (Bld) [Volum e fraction]Ordered By: Nitish Freire on 08-21-2023 Hematocrit (Bld) [Volume fraction] 33.4 % 37-47 [facility] - Chemistry and C hemistry - challengeOrdered By: Nitish Freire on 08-21-2023 CO2 [Moles/Vol] 28.0 mmol/L 21.0-32.0 [facility] Urea nitrogen/Creatinine [Mass ratio] 6.9 mg/mg 10-20 [facility] - Chemistry and C hemistry - challengeOrdered By: Mar Mendes on 08-21-2023 Magnesium [Mass/Vol] 2.0 mg/dL 1.6-2.6 [facility] Laboratory - Hematology and Cell countsOrdered By: Nitish Freire on 08-21-2023 MCH (RBC) [Entitic mass] 25.0 pg 27.0-32.0 [facility] MCHC (RBC) [Mass/Vol] 29.9 g/dL 32-36 [facility] Platelet mean volume (Bld) [Entitic vol] 8.6 fL 6.2-12.0 [facility] Platelets (Bld) [#/Vol] 253 10*3/uL 150-450 [facility] No Panel InformationOrdered By: Nitish Freire on 08-21-2023 Estimated Creatinine Clearance Calc 89.47 ml/min [facility] Estimated GFR (MDRD) Amer 153 mL/min >60 [facility] Comment on above: GFR Calc Estimated GFR (MDRD) Non-Af Amer 127 mL/min >60 [facility] Comment on above: Non- GFR Calc RBC Auto (Bld) [#/Vol]Ordere d By: Nitish Freire on 08-21-2023 RBC (Bld) [#/Vol] 4.00 10*6/uL 4.2-5.4 [facility] Serum or plasma calcium sona urement (mass/volume)Ordered By: Nitish Freire on 08-21-2023 Calcium [Mass/Vol] 8.2 mg/dL 8.5-10.1 [facility] Serum or plasma creatinine m easurement (mass/volume)Ordered By: Nitish Freire on 08-21-2023 Creatinine [Mass/Vol] 0.58 mg/dL 0.55-1.02 [facility] Comment on above: The validity of the calculated GFR & GFRAA in patients over 70 years has not been determined. Clinical correlation is essential. Serum or plasma urea nitroge n measurement (mass/volume)Ordered By: Nitish Freire on 08-21-2023 Urea nitrogen [Mass/Vol] 4 mg/dL 7-18 [facility] Thin prep Papanicolaou smear with manual screeningOrdered By: Nitish Freire on 08-21-2023 Thin prep Papanicolaou smear with manual screening 6 5-15 [facility] Erythrocyte sedimentation ra teOrdered By: Andi Callahan on 08-19-2023 ESR (Bld) [Velocity] 4 mm/h 0-30 [facility] Iron measurement (mass/mass) Ordered By: Nitish Freire on 08-19-2023 Iron (Unsp spec) [Mass/Mass] 23 ug/dL 50-170 [facility] - Chemistry and C hemistry - challengeOrdered By: Andi Callahan on 08-19-2023 HCG ( test) Ql (U) Negative [facility] Comment on above: Very dilute urine sp ecimens, as indicated by a low specificgravity, may not contain admitting representative levels of hCG. If is still suspected, a first morning urinespecimen should be collected 48 hours later and tested. Cobalamin (Vitamin B12) [Mass/Vol] 574 pg/mL 211-911 [facility] - Chemistry and C hemistry - challengeOrdered By: Nitish Freire on 08-19-2023 Ferritin [Mass/Vol] 290 ng/mL 8-252 [facility] No Panel InformationOrdered By: Andi Callahan on 08-19-2023 C-Reactive Protein Extended Range < 2.90 mg/L 0.0-3.0 [facility] Comment on above: C-Reactive Protein ( CRP) provides useful information for thediagnosis, therapy and monitoring of inflammatory processesand associated diseases. For the evaluation of Relative Riskfor Cardiovascular Disease, a High Sensitivity CRP (HSCRP)should be ordered. Folate 9.20 ng/mL 3.1-55.4 [facility] Free Triiodothyronine (T3) pg/dL 2.2 pg/mL 2.18-3.98 [facility] No Panel InformationOrdered By: Nitish Freire on 08-19-2023 Vitamin D 25-Hydroxy 30.5 ng/mL [facility] Comment on above: Vitamin D 25(OH) Sta tus Range Deficiency <20 ng/mL (50nmol/L) Insufficiency 20 - 30 ng/mL (50 - 75 nmol/L) Sufficiency 30 - 100 ng/mL (75 - 250 nmol/L) Toxicity >100 ng/mL (>250 nmol/L) Total Iron Binding Capacity 220 ug/dL 250-450 [facility] Serum or plasma iron saturat ion measurement (mass fraction)Ordered By: Nitish Freire on 08-19-2023 Iron saturation [Mass fraction] 10.5 % 15.0-55.0 [facility] Serum or plasma thyroid stim ulating hormone (TSH) measurement (units/volume)Ordered By: Andi Callahan on 08-19-2023 TSH Qn 1.30 uIU/mL 0.358-3.74 [facility] Thin prep Papanicolaou smear with manual screeningOrdered By: Andi Callahan on 08-19-2023 Thin prep Papanicolaou smear with manual screening 0.81 ng/dL 0.76-1.46 [facility] Absolute lymphocyte countOrd ered By: Amy Villalba on 08-18-2023 Lymphocytes Auto (Unsp spec) [#/Vol] 0.79 10*3/uL 0.83-4.51 [facility] Automated lymphocyte count a s percentage of total leukocytesOrdered By: Amy Villalba on 08-18-2023 Lymphocytes/100 WBC Auto (Unsp spec) 28.7 % 19-41 [facility] Basophil percentageOrdered B y: Amy Deejay on 08-18-2023 Basophils/100 WBC (Bld) 0.4 % 0-1 [facility] Bilirubin [Mass/Vol] 0.30 mg/dL 0.20-1.00 [facility] Comment on above: For patients on eltr ombopag therapy, use of Dimension [place] TBIL is not recommended. Eosinophils/100 WBC (Bld) 1.1 % 0-5 [facility] Monocytes/100 WBC (Bld) 13.1 % 0-10 [facility] Neutrophils (Bld) [#/Vol] 1.6 10*3/uL 2.0-7.7 [facility] Neutrophils/100 WBC (Bld) 56.7 % 47-70 [facility] Protein [Mass/Vol] 5.3 g/dL 6.4-8.2 [facility] Immature granulocytes/100 WB C Auto (Bld)Ordered By: Amy Villalba on 08-18-2023 Immature granulocytes/100 WBC (Bld) 0.000 % 0.0-0.9 [facility] Comment on above: IG% - Immature Granu locytes (promyelocytes, myelocytes and metamyelocytes) > 1% indicates that a LEFT SHIFT is Present. Laboratory - Chemistry and C hemistry - challengeOrdered By: Amy Villalba on 08-18-2023 Albumin/Globulin [Mass ratio] 1.0 {ratio} 0.9-2.4 [facility] ALP [Catalytic activity/Vol] 56 U/L 45-117 [facility] ALT [Catalytic activity/Vol] 18 U/L 13-56 [facility] Globulin (S) [Mass/Vol] 2.7 g/dL 2.2-4.2 [facility] Laboratory - Hematology and Cell countsOrdered By: Amy Villalba on 08-18-2023 Anisocytosis Ql (Bld) 1+ [facility] Nucleated RBC/100 WBC (Bld) [Ratio] 0 % 0-5 [facility] Thin prep Papanicolaou smear with manual screeningOrdered By: Amy Villalba on 08-18-2023 Thin prep Papanicolaou smear with manual screening 2.6 g/dL 3.2-5.0 [facility] Thin prep Papanicolaou smear with manual screening 29 U/L 15-37 [facility] Absolute lymphocyte countOrd ered By: ED PROVIDER on 08-17-2023 Lymphocytes Auto (Unsp spec) [#/Vol] 0.51 10*3/uL 0.83-4.51 [facility] Automated lymphocyte count a s percentage of total leukocytesOrdered By: ED PROVIDER on 08-17-2023 Lymphocytes/100 WBC Auto (Unsp spec) 10.2 % 19-41 [facility] Basophil percentageOrdered B y: ED PROVIDER on 08-17-2023 Basophil percentage 0-5 SEEN /hpf 0-5 [facility] Basophils/100 WBC (Bld) 0.2 % 0-1 [facility] Chloride [Moles/Vol] 108 mmol/L 98-107 [facility] Eosinophils/100 WBC (Bld) 0.0 % 0-5 [facility] Glucose [Mass/Vol] 93 mg/dL 74-106 [facility] Hemoglobin (Bld) [Mass/Vol] 10.6 g/dL 12.0-15.0 [facility] Monocytes/100 WBC (Bld) 7.6 % 0-10 [facility] Neutrophils (Bld) [#/Vol] 4.1 10*3/uL 2.0-7.7 [facility] Neutrophils/100 WBC (Bld) 81.8 % 47-70 [facility] Potassium [Moles/Vol] 3.2 mmol/L 3.5-5.1 [facility] Sodium [Moles/Vol] 141 mmol/L 136-145 [facility] WBC (Bld) [#/Vol] 5.0 10*3/uL 4.4-11.0 [facility] Basophil percentageOrdered B y: Divine Hall on 08-17-2023 Bilirubin [Mass/Vol] 0.30 mg/dL 0.20-1.00 [facility] Comment on above: For patients on eltr ombopag therapy, use of Dimension [place] TBIL is not recommended. Protein [Mass/Vol] 6.9 g/dL 6.4-8.2 [facility] Bilirubin Test strip Ql (U)O rdered By: ED PROVIDER on 08-17-2023 Bilirubin Ql (U) Negative Negative [facility] Blood manual differential co mment interpretation (narrative result)Ordered By: ED PROVIDER on 08-17-2023 Manual differential comment Gerald (Bld) [Interp] SCANNED [facility] Determination of erythrocyte mean corpuscular volume (MCV)Ordered By: ED PROVIDER on 08-17-2023 MCV (RBC) [Entitic vol] 83.9 fL 81-99 [facility] Direct bilirubinOrdered By: Divine Hall on 08-17-2023 Bilirubin.direct [Mass/Vol] 0.10 mg/dL 0.00-0.30 [facility] Erythrocyte distribution wid th ratioOrdered By: ED PROVIDER on 08-17-2023 Erythrocyte distribution width (RBC) [Ratio] 21.5 % 11.6-14.6 [facility] Erythrocyte distribution wid th standard deviationOrdered By: ED PROVIDER on 08-17-2023 Erythrocyte distribution width (RBC) [Entitic vol] 64.8 fL 35.1-43.9 [facility] Hematocrit Auto (Bld) [Volum e fraction]Ordered By: ED PROVIDER on 08-17-2023 Hematocrit (Bld) [Volume fraction] 34.9 % 37-47 [facility] Immature granulocytes/100 WB C Auto (Bld)Ordered By: ED PROVIDER on 08-17-2023 Immature granulocytes/100 WBC (Bld) 0.200 % 0.0-0.9 [facility] Comment on above: IG% - Immature Granu locytes (promyelocytes, myelocytes and metamyelocytes) > 1% indicates that a LEFT SHIFT is Present. Ketones Test strip Ql (U)Ord ered By: ED PROVIDER on 08-17-2023 Ketones Ql (U) 5 mg/dl Negative [facility] - Chemistry and C hemistry - challengeOrdered By: Divine Hall on 08-17-2023 Magnesium [Mass/Vol] 2.0 mg/dL 1.6-2.6 [facility] ALP [Catalytic activity/Vol] 75 U/L 45-117 [facility] ALT [Catalytic activity/Vol] 23 U/L 13-56 [facility] Globulin (S) [Mass/Vol] 3.5 g/dL 2.2-4.2 [facility] Lipase [Catalytic activity/Vol] 20 U/L 13-75 [facility] Comment on above: Please note:LIPASE r evised reference range effective 22. New Lipase methodology. Expected to produce lower values than the previous assay method. NEW Reference Range: 13 - 75 U/L Natriuretic peptide B (Bld) [Mass/Vol] 4.7 pg/mL 0-100 [facility] - Chemistry and C hemistry - challengeOrdered By: ED PROVIDER on 08-17-2023 Albumin/Globulin [Mass ratio] 1.0 {ratio} 0.9-2.4 [facility] CO2 [Moles/Vol] 27.0 mmol/L 21.0-32.0 [facility] Urea nitrogen/Creatinine [Mass ratio] 14.9 mg/mg 10-20 [facility] - Hematology and Cell countsOrdered By: ED PROVIDER on 08-17-2023 Anisocytosis Ql (Bld) 2+ [facility] MCH (RBC) [Entitic mass] 25.5 pg 27.0-32.0 [facility] MCHC (RBC) [Mass/Vol] 30.4 g/dL 32-36 [facility] Nucleated RBC/100 WBC (Bld) [Ratio] 0 % 0-5 [facility] Platelet mean volume (Bld) [Entitic vol] 9.4 fL 6.2-12.0 [facility] Platelets (Bld) [#/Vol] 168 10*3/uL 150-450 [facility] Macrocytes detectionOrdered By: ED PROVIDER on 08-17-2023 Macrocytes Ql (Bld) 1+ [facility] Mucus LM Ql (Urine sed)Order ed By: ED PROVIDER on 08-17-2023 Mucus Ql (Urine sed) 1+ /hpf [facility] Nitrite Test strip Ql (U)Ord ered By: ED PROVIDER on 08-17-2023 Nitrite Ql (U) Negative Negative [facility] No Panel InformationOrdered By: Divine Hall on 08-17-2023 Troponin I High Sensitivity 16 pg/mL 3.0-54.0 [facility] Comment on above: Please Note: New Stephanie t Units and Gender Specific Reference Ranges. For more information see Policy Stat Procedure [place] High Sensitivity Troponin (TNIH) and attachments. No Panel InformationOrdered By: ED PROVIDER on 08-17-2023 Urine RBC 0-5 SEEN /hpf 0-5 [facility] Estimated Creatinine Clearance Calc 82.89 ml/min [facility] Estimated GFR (MDRD) Amer 147 mL/min >60 [facility] Comment on above: GFR Calc Estimated GFR (MDRD) Non-Af Amer 121 mL/min >60 [facility] Comment on above: Non- GFR Calc Protein Test strip Ql (U)Ord ered By: ED PROVIDER on 08-17-2023 Protein Ql (U) Negative Negative [facility] RBC Auto (Bld) [#/Vol]Ordere d By: ED PROVIDER on 08-17-2023 RBC (Bld) [#/Vol] 4.16 10*6/uL 4.2-5.4 [facility] Respiratory pathogens DNA an d RNA panel REZA+probe (Resp)Ordered By: Amy Villalba on 08-17-2023 Respiratory Panel (PCR) Rhinovirus [facility] Serum or plasma calcium sona urement (mass/volume)Ordered By: ED PROVIDER on 08-17-2023 Calcium [Mass/Vol] 8.4 mg/dL 8.5-10.1 [facility] Serum or plasma choriogonado tropin detectionOrdered By: ED PROVIDER on 08-17-2023 HCG ( test) Ql Negative [facility] Serum or plasma creatinine m easurement (mass/volume)Ordered By: ED PROVIDER on 08-17-2023 Creatinine [Mass/Vol] 0.60 mg/dL 0.55-1.02 [facility] Comment on above: The validity of the calculated GFR & GFRAA in patients over 70 years has not been determined. Clinical correlation is essential. Serum or plasma urea nitroge n measurement (mass/volume)Ordered By: ED PROVIDER on 08-17-2023 Urea nitrogen [Mass/Vol] 9 mg/dL 7-18 [facility] Serum procalcitonin measurem entOrdered By: Amy Villalba on 08-17-2023 Procalcitonin [Mass/Vol] ng/mL 0.00-0.09 [facility] Comment on above: A procalcitonin (PCT ) [...] Ql (Urine sed) 0-5 SEEN /hpf 5-10 [facility] Thin prep Papanicolaou smear with manual screeningOrdered By: ED PROVIDER on 08-17-2023 Thin prep Papanicolaou smear with manual screening 1+ [facility] Thin prep Papanicolaou smear with manual screening 6 5-15 [facility] Thin prep Papanicolaou smear with manual screeningOrdered By: Divine Hall on 08-17-2023 Thin prep Papanicolaou smear with manual screening 3.4 g/dL 3.2-5.0 [facility] Thin prep Papanicolaou smear with manual screening 30 U/L 15-37 [facility] Urine blood detectionOrdered By: ED PROVIDER on 08-17-2023 RBC Ql (U) 250 /ul Negative [facility] Urine clarityOrdered By: ED PROVIDER on 08-17-2023 Clarity (U) Clear Clear [facility] Urine color determinationOrd ered By: ED PROVIDER on 08-17-2023 Color (U) Yellow Yellow [facility] Urine glucose detectionOrder ed By: ED PROVIDER on 08-17-2023 Glucose Ql (U) Normal mg/dl Normal [facility] Urine leukocyte esterase det ection by dipstickOrdered By: ED PROVIDER on 08-17-2023 Leukocyte esterase Test strip Ql (U) 25 /ul Negative [facility] Urine pHOrdered By: ED PROVI MICHOACANO on 08-17-2023 pH (U) 8.0 [pH] 5.0 - 8.0 [facility] Urine sediment bacteria coun t by microscopy (number/high power field)Ordered By: ED PROVIDER on 08-17-2023 Bacteria LM.HPF (Urine sed) [#/Area] 0 /[HPF] None Seen [facility] Urine specific gravity measu rementOrdered By: ED PROVIDER on 08-17-2023 Specific gravity (U) [Rel density] 1.010 1.002-1.030 [facility] Urine urobilinogen measureme ntOrdered By: ED PROVIDER on 08-17-2023 Urobilinogen Ql (U) 1 mg/dl Normal [facility] CBC W Auto Differential pane l (Bld)on 07-26-2023 Basophils (Bld) [#/Vol] 0.05 10*3/uL <0.11 k/uL [facility] Basophils/100 WBC (Bld) 0.5 % C [facility] Differential cell count method Nom (Bld) Auto [facility] Eosinophils (Bld) [#/Vol] 0.10 10*3/uL <0.46 k/uL [facility] Eosinophils/100 WBC (Bld) 1.0 % [facility] Erythrocyte distribution width (RBC) [Ratio] 17.7 % High 11.5 - 15.0 % [facility] Hematocrit (Bld) [Volume fraction] 33.2 % Low 36.0 - 46.0 % [facility] Hemoglobin (Bld) [Mass/Vol] 9.6 g/dL Low 11.5 - 15.5 g/dL [facility] Immature granulocytes (Bld) [#/Vol] 0.04 10*3/uL <0.10 k/uL [facility] Immature granulocytes/100 WBC (Bld) 0.4 % [facility] Lymphocytes (Bld) [#/Vol] 1.51 10*3/uL 1.00 - 4.00 k/uL [facility] Lymphocytes/100 WBC (Bld) 15.8 % [facility] MCH (RBC) [Entitic mass] 22.8 pg Low 26. 0 - 34.0 pg [facility] MCHC (RBC) [Mass/Vol] 28.9 g/dL Low 30.5 - 36.0 g/dL [facility] MCV (RBC) [Entitic vol] 78.9 fL Low 80.0 - 100.0 fL [facility] Monocytes (Bld) [#/Vol] 0.75 10*3/uL <0.87 k/uL [facility] Monocytes/100 WBC (Bld) 7.8 % [facility] [#/Vol] 7.13 10*3/uL 1.45 - 7.50 k/uL [facility] Neutrophils/100 WBC (Bld) 74.5 % [facility] Nucleated RBC (Bld) [#/Vol] <0.01 k/uL [facility] Nucleated RBC/100 WBC (Bld) [Ratio] 0.0 /100 WBC [facility] Platelet mean volume (Bld) [Entitic vol] 8.8 fL Low 9.0 - 12.7 fL [facility] Platelets (Bld) [#/Vol] 544 10*3/uL High 150 - 400 k/uL [facility] RBC (Bld) [#/Vol] 4.21 10*6/uL 3.90 - 5.2 0 m/uL [facility] WBC (Bld) [#/Vol] 9.58 10*3/uL 3.70 - 11. 00 k/uL [facility] Comprehensive metabolic 2000 panelon 07-26-2023 Albumin [Mass/Vol] 4.0 g/dL 3.9 - 4.9 g/dL [facility] ALP [Catalytic activity/Vol] 88 U/L 34 - 123 U/L [facility] ALT [Catalytic activity/Vol] 11 U/L 7 - 38 U/L [facility] Anion gap [Moles/Vol] 9 mmol/L 9 - 18 mmol/L [facility] AST [Catalytic activity/Vol] 17 U/L 13 - 35 U/L [facility] Bilirubin [Mass/Vol] 0.2 mg/dL 0.2 - 1 .3 mg/dL [facility] Calcium [Mass/Vol] 10.0 mg/dL 8.5 - 10. 2 mg/dL [facility] Chloride [Moles/Vol] 104 mmol/L 97 - 10 5 mmol/L [facility] CO2 [Moles/Vol] 28 mmol/L 22 - 30 mmol/L [facility] Creatinine [Mass/Vol] 0.60 mg/dL 0.58 - 0.96 mg/dL [facility] Estimated Glomerular Filtration Rate 122 mL/min/1.73m >=60 mL/min/1.73m [facility] Glucose [Mass/Vol] 70 mg/dL Low 74 - 99 mg/dL [facility] Potassium [Moles/Vol] 4.0 mmol/L 3.7 - 5.1 mmol/L [facility] Protein [Mass/Vol] 8.0 g/dL 6.3 - 8.0 g/dL [facility] Sodium [Moles/Vol] 141 mmol/L 136 - 144 mmol/L [facility] Urea nitrogen [Mass/Vol] 12 mg/dL 7 - 21 mg/d L [facility] FOLATE SERUMon 07-26-2023 Folate [Mass/Vol] 9.2 ng/mL >4.7 ng/mL [facility] LD LACTATE DEHYDROon 024 LDH [Catalytic activity/Vol] 164 U/L 135 - 214 U/L [facility] VITAMIN B12 BLOODon 07-26-19 24 Cobalamin (Vitamin B12) [Mass/Vol] 1209 pg/mL 232 - 1,245 pg/mL [facility] CBC W Auto Differential pane l (Bld)on 07-21-2023 Basophils (Bld) [#/Vol] <0.11 k/uL [facility] Basophils/100 WBC (Bld) 0.3 % [facility] Differential cell count method Nom (Bld) Auto [facility] Eosinophils (Bld) [#/Vol] 0.08 10*3/uL <0.46 k/uL [facility] Eosinophils/100 WBC (Bld) 1.4 % [facility] Erythrocyte distribution width (RBC) [Ratio] 16.8 % High 11.5 - 15.0 % [facility] Hematocrit (Bld) [Volume fraction] 31.3 % Low 36.0 - 46.0 % [facility] Hemoglobin (Bld) [Mass/Vol] 8.9 g/dL Low 11.5 - 15.5 g/dL [facility] Immature granulocytes (Bld) [#/Vol] <0.10 k/uL [facility] Immature granulocytes/100 WBC (Bld) 0.3 % [facility] Lymphocytes (Bld) [#/Vol] 1.32 10*3/uL 1.00 - 4.00 k/uL [facility] Lymphocytes/100 WBC (Bld) 22.5 % [facility] MCH (RBC) [Entitic mass] 22.3 pg Low 26. 0 - 34.0 pg [facility] MCHC (RBC) [Mass/Vol] 28.4 g/dL Low 30.5 - 36.0 g/dL [facility] MCV (RBC) [Entitic vol] 78.3 fL Low 80.0 - 100.0 fL [facility] Monocytes (Bld) [#/Vol] 0.83 10*3/uL <0.87 k/uL [facility] Monocytes/100 WBC (Bld) 14.1 % C [facility] Neutrophils (Bld) [#/Vol] 3.60 10*3/uL 1.45 - 7.50 k/uL [facility] Neutrophils/100 WBC (Bld) 61.4 % [facility] Nucleated RBC (Bld) [#/Vol] <0.01 k/uL [facility] Nucleated RBC/100 WBC (Bld) [Ratio] 0.0 /100 WBC [facility] Platelet mean volume (Bld) [Entitic vol] 9.9 fL 9.0 - 12.7 fL [facility] Platelets (Bld) [#/Vol] 409 10*3/uL High 150 - 400 k/uL [facility] RBC (Bld) [#/Vol] 4.00 10*6/uL 3.90 - 5.2 0 m/uL [facility] WBC (Bld) [#/Vol] 5.87 10*3/uL 3.70 - 11. 00 k/uL [facility] Comprehensive metabolic 2000 panelon 07-21-2023 Albumin [Mass/Vol] 3.9 g/dL 3.9 - 4.9 g/dL [facility] ALP [Catalytic activity/Vol] 70 U/L 34 - 123 U/L [facility] ALT [Catalytic activity/Vol] 16 U/L 7 - 38 U/L [facility] Anion gap [Moles/Vol] 8 mmol/L Low 9 - 18 mmol/L [facility] AST [Catalytic activity/Vol] 21 U/L 13 - 35 U/L [facility] Bilirubin [Mass/Vol] Low 0.2 - 1 .3 mg/dL [facility] Calcium [Mass/Vol] 9.6 mg/dL 8.5 - 10. 2 mg/dL [facility] Chloride [Moles/Vol] 102 mmol/L 97 - 10 5 mmol/L [facility] CO2 [Moles/Vol] 30 mmol/L 22 - 30 mmol/L [facility] Creatinine [Mass/Vol] 0.57 mg/dL Low 0.58 - 0.96 mg/dL [facility] Estimated Glomerular Filtration Rate 124 mL/min/1.73m >=60 mL/min/1.73m [facility] Glucose [Mass/Vol] 73 mg/dL Low 74 - 99 mg/dL [facility] Potassium [Moles/Vol] 4.2 mmol/L 3.7 - 5.1 mmol/L [facility] Protein [Mass/Vol] 7.4 g/dL 6.3 - 8.0 g/dL [facility] Sodium [Moles/Vol] 140 mmol/L 136 - 144 mmol/L [facility] Urea nitrogen [Mass/Vol] 9 mg/dL 7 - 21 mg/d L [facility] D-DIMERon 07-21-2023 Fibrin D-dimer FEU (PPP) [Mass/Vol] 420 ng/mL FEU <500 ng/mL FEU [facility] FERRITIN BLDon 07-21-2023 Ferritin [Mass/Vol] 36.5 ng/mL 14.7 - 2 05.1 ng/mL [facility] Iron and Iron binding capaci ty panelon 07-21-2023 Iron [Mass/Vol] 32 ug/dL Low 41 - 186 ug/dL [facility] Iron binding capacity [Mass/Vol] 382 ug/dL 232 - 386 ug/dL [facility] Iron/TIBC [Molar ratio] 8.4 % Low 15.0 - 57.0 % [facility] T3 BLDon 07-21-2023 T3 [Mass/Vol] 107 ng/dL 79 - 165 ng/dL [facility] T4 FREE/FREE THYROXon 2023 Free T4 [Mass/Vol] 0.9 ng/dL 0.9 - 1.7 ng/dL [facility] TSH BLDon 07-21-2023 TSH Qn 0.858 m[IU]/L 0.270 - 4.200 mIU/L [facility] XR Chest 2 Viewson [facility] XR Chest PA and Lateralon IMPRESSION: No acute radiographic abnormality. Building Performance Consultant: [employer] Transcribe Date/Time: Jul 21 2023 3:46P Dictated by : RUTH ANN ROOT MD This examination was interpreted and the report reviewed and electronically signed by: RUTH ANN ROOT MD on Jul 21 2023 3:47PM [facility] DIVISION OF RADIOLOGY * * *Final Report* [...] the right clavicle. DIVISION OF RADIOLOGY Provider, [facility] [place] - 07/21/2023 * * *Final Report* * [...] clavicle. IMPRESSION IMPRESSION: No acute radiographic abnormality. Building Performance [facility] Trans[facility] Date/Time: Jul 21 2023 3:46P Dictated by : RUTH ANN ROOT MD This examination was interpreted and the report reviewed and electronically signed by: RUTH ANN ROOT MD on Jul 21 2023 3:47PM EST [facility] Radiology Study observation (narrative) [facility]un bermeo [facility] XR Chest PA and LateralOrder ed By: Cc Provider on 07-21-2023 [facility] Absolute lymphocyte countOrd ered By: Amy Villalba on 07-18-2023 Lymphocytes Auto (Unsp spec) [#/Vol] 1.34 10*3/uL 0.83-4.51 [facility] Automated lymphocyte count a s percentage of total leukocytesOrdered By: Amy Villalba on 07-18-2023 Lymphocytes/100 WBC Auto (Unsp spec) 33.8 % 19-41 [facility] Basophil percentageOrdered B y: White on 07-18-2023 Basophils/100 WBC (Bld) 0.3 % 0-1 [facility] Bilirubin [Mass/Vol] 0.30 mg/dL 0.20-1.00 [facility] Comment on above: For patients on eltr ombopag therapy, use of Dimension [place] TBIL is not recommended. Chloride [Moles/Vol] 108 mmol/L 98-107 [facility] Eosinophils/100 WBC (Bld) 0.3 % 0-5 [facility] Glucose [Mass/Vol] 96 mg/dL 74-106 [facility] Hemoglobin (Bld) [Mass/Vol] 8.0 g/dL 12.0-15.0 [facility] Monocytes/100 WBC (Bld) 10.9 % 0-10 [facility] Neutrophils (Bld) [#/Vol] 2.2 10*3/uL 2.0-7.7 [facility] Neutrophils/100 WBC (Bld) 54.4 % 47-70 [facility] Potassium [Moles/Vol] 3.4 mmol/L 3.5-5.1 [facility] Protein [Mass/Vol] 6.5 g/dL 6.4-8.2 [facility] Sodium [Moles/Vol] 139 mmol/L 136-145 [facility] WBC (Bld) [#/Vol] 4.0 10*3/uL 4.4-11.0 [facility] Determination of erythrocyte mean corpuscular volume (MCV)Ordered By: on 07-18-2023 MCV (RBC) [Entitic vol] 76.1 fL 81-99 [facility] Erythrocyte distribution wid th ratioOrdered By: on 07-18-2023 Erythrocyte distribution width (RBC) [Ratio] 16.9 % 11.6-14.6 [facility] Erythrocyte distribution wid th standard deviationOrdered By: on 07-18-2023 Erythrocyte distribution width (RBC) [Entitic vol] 47.6 fL 35.1-43.9 [facility] Hematocrit Auto (Bld) [Volum e fraction]Ordered By: Amy Villalba on 07-18-2023 Hematocrit (Bld) [Volume fraction] 27.1 % 37-47 [facility] Immature granulocytes/100 WB C Auto (Bld)Ordered By: Amy Villalba on 07-18-2023 Immature granulocytes/100 WBC (Bld) 0.300 % 0.0-0.9 [facility] Comment on above: IG% - Immature Granu locytes (promyelocytes, myelocytes and metamyelocytes) > 1% indicates that a LEFT SHIFT is Present. Laboratory - Chemistry and C hemistry - challengeOrdered By: Amy Villalba on 07-18-2023 Albumin/Globulin [Mass ratio] 0.8 {ratio} 0.9-2.4 [facility] ALP [Catalytic activity/Vol] 66 U/L 45-117 [facility] ALT [Catalytic activity/Vol] 25 U/L 13-56 [facility] CO2 [Moles/Vol] 28.0 mmol/L 21.0-32.0 [facility] Globulin (S) [Mass/Vol] 3.7 g/dL 2.2-4.2 [facility] Urea nitrogen/Creatinine [Mass ratio] 7.5 mg/mg 10-20 [facility] Laboratory - Hematology and Cell countsOrdered By: Amy Villalba on 07-18-2023 MCH (RBC) [Entitic mass] 22.5 pg 27.0-32.0 [facility] MCHC (RBC) [Mass/Vol] 29.5 g/dL 32-36 [facility] Nucleated RBC/100 WBC (Bld) [Ratio] 0 % 0-5 [facility] Platelet mean volume (Bld) [Entitic vol] 10.2 fL 6.2-12.0 [facility] Platelets (Bld) [#/Vol] 161 10*3/uL 150-450 [facility] No Panel InformationOrdered By: Amy Villalba on 07-18-2023 Estimated Creatinine Clearance Calc 91.90 ml/min [facility] Estimated GFR (MDRD) Amer 171 mL/min >60 [facility] Comment on above: GFR Calc Estimated GFR (MDRD) Non-Af Amer 141 mL/min >60 [facility] Comment on above: Non- GFR Calc Ovalocyte detectionOrdered B y: Amy Villalba on 07-18-2023 Ovalocytes LM Ql (Bld) 2+ [facility] RBC Auto (Bld) [#/Vol]Ordere d By: Amy Villalba on 07-18-2023 RBC (Bld) [#/Vol] 3.56 10*6/uL 4.2-5.4 [facility] Review by pathologistOrdered By: Amy Villalba on 07-18-2023 Pathologist review Gerald (Unsp spec) [Interp] Reviewed [facility] Comment on above: Previous reported re sult: October melissa Edited by: RGOLAM on 07/18/23:1256Leukopenia.Microcytic anemia.Clinical correlation necessary.Chidi Beasley M.D. 07/18/23 AMENDED REPORT 07/18/23 1256 PATH REV previously reported as: October melissa Serum or plasma calcium sona urement (mass/volume)Ordered By: Amy Villalba on 07-18-2023 Calcium [Mass/Vol] 8.7 mg/dL 8.5-10.1 [facility] Serum or plasma creatinine m easurement (mass/volume)Ordered By: Amy Villalba on 07-18-2023 Creatinine [Mass/Vol] 0.53 mg/dL 0.55-1.02 [facility] Comment on above: The validity of the calculated GFR & GFRAA in patients over 70 years has not been determined. Clinical correlation is essential. Serum or plasma urea nitroge n measurement (mass/volume)Ordered By: Amy Villalba on 07-18-2023 Urea nitrogen [Mass/Vol] 4 mg/dL 7-18 [facility] Thin prep Papanicolaou smear with manual screeningOrdered By: Amy Villalba on 07-18-2023 Thin prep Papanicolaou smear with manual screening 2.8 g/dL 3.2-5.0 [facility] Thin prep Papanicolaou smear with manual screening 28 U/L 15-37 [facility] Thin prep Papanicolaou smear with manual screening 3 5-15 [facility] Basophil percentageOrdered B y: Kaushal Wright on 07-17-2023 Basophil percentage 2.3 mg/dL 2.5-4.9 [facility] Blood manual differential co mment interpretation (narrative result)Ordered By: Kaushal Wright on 07-17-2023 Manual differential comment Gerald (Bld) [Interp] SCANNED [facility] HIV 1 and HIV-2 antibody ass ay with HIV-1 p24 antigen detectionOrdered By: Kaushal Wright on 07-17-2023 HIV 1+2 Ab+HIV1 p24 Ag IA Ql Non-Reactive Nonreactive [facility] Iron measurement (mass/mass) Ordered By: Amy Villalba on 07-17-2023 Iron (Unsp spec) [Mass/Mass] 16 ug/dL 50-170 [facility] Laboratory - Chemistry and C hemistry - challengeOrdered By: Kaushal Wright on 07-17-2023 Cobalamin (Vitamin B12) [Mass/Vol] 827 pg/mL 211-911 [facility] Laboratory - Chemistry and C hemistry - challengeOrdered By: Amy Villalba on 07-17-2023 Ferritin [Mass/Vol] 29 ng/mL 8-252 [facility] Magnesium [Mass/Vol] 2.5 mg/dL 1.6-2.6 [facility] No Panel InformationOrdered By: Kaushal Wright on 07-17-2023 Reactive Lymphocytes 1+ [facility] Troponin I High Sensitivity 65 pg/mL 3.0-54.0 [facility] Comment on above: Please Note: New Stephanie t Units and Gender Specific Reference Ranges. For more information see Policy Stat Procedure [place] High Sensitivity Troponin (TNIH) and attachments. No Panel InformationOrdered By: Amy Villalba on 07-17-2023 Total Iron Binding Capacity 300 ug/dL 250-450 [facility] Serum or plasma iron saturat ion measurement (mass fraction)Ordered By: Amy Villalba on 07-17-2023 Iron saturation [Mass fraction] 5.3 % 15.0-55.0 [facility] Serum or plasma thyroid stim ulating hormone (TSH) measurement (units/volume)Ordered By: Kaushal Wright on 07-17-2023 TSH Qn 0.64 uIU/mL 0.358-3.74 [facility] Absolute lymphocyte countOrd ered By: Lang Atkinson on 07-16-2023 Lymphocytes Auto (Unsp spec) [#/Vol] 0.90 10*3/uL 0.83-4.51 [facility] Automated lymphocyte count a s percentage of total leukocytesOrdered By: Lang Atkinson on 07-16-2023 Lymphocytes/100 WBC Auto (Unsp spec) 25.1 % 19-41 [facility] Basophil percentageOrdered B y: Lang Atkinson on 07-16-2023 Basophils/100 WBC (Bld) 0.3 % 0-1 [facility] Bilirubin [Mass/Vol] 0.20 mg/dL 0.20-1.00 [facility] Comment on above: For patients on eltr ombopag therapy, use of Dimension [place] TBIL is not recommended. Chloride [Moles/Vol] 110 mmol/L 98-107 [facility] Eosinophils/100 WBC (Bld) 0.0 % 0-5 [facility] Glucose [Mass/Vol] 96 mg/dL 74-106 [facility] Hemoglobin (Bld) [Mass/Vol] 8.3 g/dL 12.0-15.0 [facility] Monocytes/100 WBC (Bld) 7.3 % 0-10 [facility] Neutrophils (Bld) [#/Vol] 2.4 10*3/uL 2.0-7.7 [facility] Neutrophils/100 WBC (Bld) 67.3 % 47-70 [facility] Potassium [Moles/Vol] 2.8 mmol/L 3.5-5.1 [facility] Protein [Mass/Vol] 6.5 g/dL 6.4-8.2 [facility] Sodium [Moles/Vol] 142 mmol/L 136-145 [facility] WBC (Bld) [#/Vol] 3.6 10*3/uL 4.4-11.0 [facility] Determination of erythrocyte mean corpuscular volume (MCV)Ordered By: Lang Atkinson on 07-16-2023 MCV (RBC) [Entitic vol] 76.2 fL 81-99 [facility] Erythrocyte distribution wid th ratioOrdered By: Lang Atkinson on 07-16-2023 Erythrocyte distribution width (RBC) [Ratio] 16.9 % 11.6-14.6 [facility] Erythrocyte distribution wid th standard deviationOrdered By: Lang Atkinson on 07-16-2023 Erythrocyte distribution width (RBC) [Entitic vol] 47.5 fL 35.1-43.9 [facility] Hematocrit Auto (Bld) [Volum e fraction]Ordered By: Lang Atkinson on 07-16-2023 Hematocrit (Bld) [Volume fraction] 27.9 % 37-47 [facility] Immature granulocytes/100 WB C Auto (Bld)Ordered By: Lang Atkinson on 07-16-2023 Immature granulocytes/100 WBC (Bld) 0.000 % 0.0-0.9 [facility] Comment on above: IG% - Immature Granu locytes (promyelocytes, myelocytes and metamyelocytes) > 1% indicates that a LEFT SHIFT is Present. Laboratory - Chemistry and C hemistry - challengeOrdered By: Lang Atkinson on 07-16-2023 Albumin/Globulin [Mass ratio] 0.9 {ratio} 0.9-2.4 [facility] ALP [Catalytic activity/Vol] 51 U/L 45-117 [facility] ALT [Catalytic activity/Vol] 24 U/L 13-56 [facility] CO2 [Moles/Vol] 29.0 mmol/L 21.0-32.0 [facility] Globulin (S) [Mass/Vol] 3.5 g/dL 2.2-4.2 [facility] Lipase [Catalytic activity/Vol] 50 U/L 13-75 [facility] Comment on above: Please note:LIPASE r evised reference range effective 22. New Lipase methodology. Expected to produce lower values than the previous assay method. NEW Reference Range: 13 - 75 U/L Natriuretic peptide B (Bld) [Mass/Vol] 17.7 pg/mL 0-100 [facility] Urea nitrogen/Creatinine [Mass ratio] 14.7 mg/mg 10-20 [facility] Laboratory - Hematology and Cell countsOrdered By: Lang Atkinson on 07-16-2023 MCH (RBC) [Entitic mass] 22.7 pg 27.0-32.0 [facility] MCHC (RBC) [Mass/Vol] 29.7 g/dL 32-36 [facility] Nucleated RBC/100 WBC (Bld) [Ratio] 0 % 0-5 [facility] Platelets (Bld) [#/Vol] 106 10*3/uL 150-450 [facility] No Panel InformationOrdered By: Kaushal Wright on 07-16-2023 Folate 11.70 ng/mL 3.1-55.4 [facility] No Panel InformationOrdered By: Lang Atkinson on 07-16-2023 Troponin I High Sensitivity 62 pg/mL 3.0-54.0 [facility] Comment on above: Please Note: New Stephanie t Units and Gender Specific Reference Ranges. For more information see Policy Stat Procedure [place] High Sensitivity Troponin (TNIH) and attachments. Estimated Creatinine Clearance Calc 81.54 ml/min [facility] Estimated GFR (MDRD) Amer 144 mL/min >60 [facility] Comment on above: GFR Calc Estimated GFR (MDRD) Non-Af Amer 119 mL/min >60 [facility] Comment on above: Non- GFR Calc Platelet mean volume [place] (Bld) [Entitic vol]Ordered By: Lang Atkinson on 07-16-2023 Platelet mean volume (Bld) [Entitic vol] 10.2 fL 6.2-12.0 [facility] RBC Auto (Bld) [#/Vol]Ordere d By: Lang Atkinson on 07-16-2023 RBC (Bld) [#/Vol] 3.66 10*6/uL 4.2-5.4 [facility] Respiratory pathogens DNA an d RNA panel REZA+probe (Resp)Ordered By: Kaushal Wright on 07-16-2023 Respiratory Panel (PCR) Influenzae B [facility] Respiratory Panel (PCR) Influenzae B [facility] Serum or plasma calcium sona urement (mass/volume)Ordered By: Lang Atkinson on 07-16-2023 Calcium [Mass/Vol] 8.3 mg/dL 8.5-10.1 [facility] Serum or plasma creatinine m easurement (mass/volume)Ordered By: Lang Atkinson on 07-16-2023 Creatinine [Mass/Vol] 0.61 mg/dL 0.55-1.02 [facility] Comment on above: The validity of the calculated GFR & GFRAA in patients over 70 years has not been determined. Clinical correlation is essential. Serum or plasma urea nitroge n measurement (mass/volume)Ordered By: Lang Atkinson on 07-16-2023 Urea nitrogen [Mass/Vol] 9 mg/dL 7-18 [facility] Thin prep Papanicolaou smear with manual screeningOrdered By: Lang Atkinson on 07-16-2023 Thin prep Papanicolaou smear with manual screening 3.0 g/dL 3.2-5.0 [facility] Thin prep Papanicolaou smear with manual screening 30 U/L 15-37 [facility] Thin prep Papanicolaou smear with manual screening 3 5-15 [facility] Laboratory - Microbiology an d Antimicrobial susceptibilityOrdered By: Bob Woods on 07-13-2023 SARS-CoV-2 (COVID-19) RNA REZA+probe Ql (Unsp spec) Influenzae B [facility] SARS-CoV-2 (COVID-19) RNA REZA+probe Ql (Unsp spec) Influenzae B [facility] CBC W Auto Differential pane l (Bld)on 05-01-2023 Basophils (Bld) [#/Vol] 0.04 10*3/uL <0.11 k/uL [facility] Basophils/100 WBC (Bld) 1.3 % C [facility] Differential cell count method Nom (Bld) Auto [facility] Eosinophils (Bld) [#/Vol] 0.03 10*3/uL <0.46 k/uL [facility] Eosinophils/100 WBC (Bld) 1.0 % [facility] Erythrocyte distribution width (RBC) [Ratio] 17.3 % High 11.5 - 15.0 % [facility] Hematocrit (Bld) [Volume fraction] 33.8 % Low 36.0 - 46.0 % [facility] Hemoglobin (Bld) [Mass/Vol] 10.1 g/dL Low 11.5 - 15.5 g/dL [facility] Immature granulocytes (Bld) [#/Vol] <0.10 k/uL [facility] Immature granulocytes/100 WBC (Bld) 0.3 % [facility] Lymphocytes (Bld) [#/Vol] 1.33 10*3/uL 1.00 - 4.00 k/uL [facility] Lymphocytes/100 WBC (Bld) 44.8 % [facility] MCH (RBC) [Entitic mass] 23.3 pg Low 26. 0 - 34.0 pg [facility] MCHC (RBC) [Mass/Vol] 29.9 g/dL Low 30.5 - 36.0 g/dL [facility] MCV (RBC) [Entitic vol] 77.9 fL Low 80.0 - 100.0 fL [facility] Monocytes (Bld) [#/Vol] 0.58 10*3/uL <0.87 k/uL [facility] Monocytes/100 WBC (Bld) 19.5 % C [facility] Neutrophils (Bld) [#/Vol] 0.98 10*3/uL Low 1.45 - 7.50 k/uL [facility] Neutrophils/100 WBC (Bld) 33.1 % [facility] Nucleated RBC (Bld) [#/Vol] <0.01 k/uL [facility] Nucleated RBC/100 WBC (Bld) [Ratio] 0.0 /100 WBC [facility] Platelet mean volume (Bld) [Entitic vol] 10.3 fL 9.0 - 12.7 fL [facility] Platelets (Bld) [#/Vol] 267 10*3/uL 150 - 400 k/uL [facility] RBC (Bld) [#/Vol] 4.34 10*6/uL 3.90 - 5.2 0 m/uL [facility] WBC (Bld) [#/Vol] 2.97 10*3/uL Low 3.70 - 11. 00 k/uL [facility] STREP A MOLECULAR (POC)on Procedural Control Valid [facility] Strep A (POCT) Negative Negative [facility] UA DIP, URINE (POC)on 2022 BILIRUBIN UA (POCT) Negative Negative [facility] CLARITY UA (POCT) Cloudy [facility] COLOR UA (POCT) Other [facility] GLUCOSE UA (POCT) Negative Negative mg/dL [facility] Hemoglobin Ql (U) Negative Negative [facility] KETONE UA (POCT) Negative Negative mg/dL [facility] LEUKOCYTES UA (POCT) Trace Abnormal Negative [facility] NITRITE UA (POCT) Negative Negative [facility] PH UA (POCT) 7.0 4.5 - 8.0 [facility] Protein Ql (U) Negative Negative mg/dL [facility] SPECIFIC GRAVITY UA (POCT) 1.020 1.005 - 1.030 [facility] UROBILINOGEN UA (POCT) 0.2 E.U./dL Gema l E.U./dL [facility] STREP A MOLECULAR (POC)on Procedural Control Valid [facility] Strep A (POCT) Negative Negative [facility] No Panel Informationon 03-14 [facility] Absolute lymphocyte counton 03-02-2022 Lymphocytes Auto (Unsp spec) [#/Vol] 0.98 10*3/uL 0.83-4.51 [facility] Work Phone: Basophil percentageon 2021 Basophil percentage >100 SEEN /hpf 0-5 [facility] Work Phone: Lactate [Moles/Vol] 0.8 mmol/L 0.4-2.0 [facility] Work Phone: Basophils/100 WBC (Bld) 0.2 % 0-1 [facility] Work Phone: Bilirubin [Mass/Vol] 0.20 mg/dL 0.20-1.00 [facility] Work Phone: Comment on above: For patients on eltr ombopag therapy, use of Dimension [place] TBIL is not recommended. Chloride [Moles/Vol] 108 mmol/L 98-107 [facility] Work Phone: Eosinophils/100 WBC (Bld) 0.2 % 0-5 [facility] Work Phone: Glucose [Mass/Vol] 88 mg/dL 74-106 [facility] Work Phone: Neutrophils (Bld) [#/Vol] 6.8 10*3/uL 2.0-7.7 [facility] Work Phone: Neutrophils/100 WBC (Bld) 79.2 % 47-70 [facility] Work Phone: Potassium [Moles/Vol] 3.9 mmol/L 3.5-5.1 [facility] Work Phone: Comment on above: Slight Hemolysis, Re sult may be falsely increased. Protein [Mass/Vol] 7.1 g/dL 6.4-8.2 [facility] Work Phone: [phone] Sodium [Moles/Vol] 141 mmol/L 136-145 [facility] Work Phone: [phone] WBC (Bld) [#/Vol] 8.5 10*3/uL 4.4-11.0 [facility] Work Phone: [phone] Beta hCG serum qualon 2021 Beta HCG ( test) Ql Negative [facility] Work Phone: [phone] Bilirubin Test strip Ql (U)o n 03-02-2022 Bilirubin Ql (U) Negative Negative [facility] Work Phone: [phone] Blood erythrocytes count (nu mber/volume)on 03-02-2022 RBC (Bld) [#/Vol] 4.16 10*6/uL 4.2-5.4 [facility] Work Phone: [phone] Blood hemoglobin measurement (mass/volume)on 03-02-2022 Hemoglobin (Bld) [Mass/Vol] 11.0 g/dL 12.0-15.0 [facility] Work Phone: [phone] Blood lymphocytes/100 leukoc yteson 03-02-2022 Lymphocytes/100 WBC (Bld) 11.5 % 19-41 [facility] Work Phone: [phone] Blood monocytes/100 leukocyt eson 03-02-2022 Monocytes/100 WBC (Bld) 8.7 % 0-10 [facility] Work Phone: [phone] Blood platelet mean volumeon 03-02-2022 Platelet mean volume (Bld) [Entitic vol] 10.1 fL 6.2-12.0 [facility] Work Phone: [phone] Determination of erythrocyte mean corpuscular volume (MCV)on 03-02-2022 MCV (RBC) [Entitic vol] 83.2 fL 81-99 [facility] Work Phone: [phone] Hematocrit Auto (Bld) [Volum e fraction]on 03-02-2022 Hematocrit (Bld) [Volume fraction] 34.6 % 37-47 [facility] Work Phone: [phone] INR in Blood by Coagulation assayon 03-02-2022 INR Coag (Bld) [Relative time] 1.1 {INR} [facility] Work Phone: Ketones Test strip Ql (U)on 03-02-2022 Ketones Ql (U) 5 mg/dl Negative [facility] Work Phone: Laboratory - Chemistry and C hemistry - challengeon 03-02-2022 ALP [Catalytic activity/Vol] 55 U/L 45-117 [facility] Work Phone: ALT [Catalytic activity/Vol] 23 U/L 13-56 [facility] Work Phone: CO2 [Moles/Vol] 27.0 mmol/L 21.0-32.0 [facility] Work Phone: Globulin (S) [Mass/Vol] 3.5 g/dL 2.2-4.2 [facility] Work Phone: Lipase [Catalytic activity/Vol] 136 U/L 73-393 [facility] Work Phone: Urea nitrogen/Creatinine [Mass ratio] 15.0 mg/mg 10-20 [facility] Work Phone: Laboratory - Coagulationon 0 03-02-2022 aPTT Coag (Bld) [Time] 29.9 s 24.1-36.2 [facility] [place] [place] Work Phone: PT Coag (PPP) [Time] 13.7 s 11.7-14.9 [facility] Work Phone: Laboratory - Hematology and Cell countson 03-02-2022 Erythrocyte distribution width (RBC) [Entitic vol] 38.7 fL 35.1-43.9 [facility] Work Phone: Erythrocyte distribution width (RBC) [Ratio] 12.8 % 11.6-14.6 [facility] Work Phone: Immature granulocytes/100 WBC (Bld) 0.200 % 0.0-0.9 [facility] Work Phone: [phone] Comment on above: IG% - Immature Granu locytes (promyelocytes, myelocytes and metamyelocytes) > 1% indicates that a LEFT SHIFT is Present. MCH (RBC) [Entitic mass] 26.4 pg 27.0-32.0 [facility] Work Phone: [phone] Nucleated RBC/100 WBC (Bld) [Ratio] 0 % 0-5 [facility] Work Phone: [phone] MCHC Auto (RBC) [Mass/Vol]on 03-02-2022 MCHC (RBC) [Mass/Vol] 31.8 g/dL 32-36 [facility] Work Phone: [phone] Mucus LM Ql (Urine sed)on Mucus Ql (Urine sed) 0 SEEN /hpf [facility] Work Phone: [phone] Nitrite Test strip Ql (U)on 03-02-2022 Nitrite Ql (U) Negative Negative [facility] Work Phone: [phone] Panel Informationon 03-02 Estimated Creatinine Clearance Calc 74.92 ml/min [facility] Work Phone: [phone] Estimated GFR (MDRD) Amer 133 mL/min >60 [facility] Work Phone: [phone] Comment on above: GFR Calc Estimated GFR (MDRD) Non-Af Amer 110 mL/min >60 [facility] Work Phone: [phone] Comment on above: Non- GFR Calc Platelets bldon 03-02-2022 Platelets (Bld) [#/Vol] 197 10*3/uL 150-450 [facility] Work Phone: [phone] Protein Test strip Ql (U)on 03-02-2022 Protein Ql (U) 100 mg/dl Negative [facility] Work Phone: [phone] Serum or plasma albumin sona urement (mass/volume)on 03-02-2022 Albumin [Mass/Vol] 3.6 g/dL 3.2-5.0 [facility] Work Phone: Serum or plasma albumin/glob ulin mass ratioon 03-02-2022 Albumin/Globulin [Mass ratio] 1.0 {ratio} 0.9-2.4 [facility] Work Phone: Serum or plasma calcium sona urement (mass/volume)on 03-02-2022 Calcium [Mass/Vol] 9.2 mg/dL 8.5-10.1 [facility] Work Phone: [phone] Serum or plasma creatinine m easurement (mass/volume)on 03-02-2022 Creatinine [Mass/Vol] 0.67 mg/dL 0.55-1.02 [facility] Work Phone: Comment on above: The validity of the calculated GFR & GFRAA in patients over 70 years has not been determined. Clinical correlation is essential. Serum or plasma urea nitroge n measurement (mass/volume)on 03-02-2022 Urea nitrogen [Mass/Vol] 10 mg/dL 7-18 [facility] Work Phone: Squamous epithelial cells de tection in urine sediment by light microscopyon 03-02-2022 Epithelial cells.squamous LM Ql (Urine sed) 0 SEEN /hpf 5-10 [facility] Work Phone: Thin prep Papanicolaou smear with manual screeningon 03-02-2022 Thin prep Papanicolaou smear with manual screening 17 U/L 15-37 [facility] Work Phone: Comment on above: Slight Hemolysis, Re sult may be falsely increased. Thin prep Papanicolaou smear with manual screening 6 5-15 [facility] Work Phone: Urine blood detectionon 02-11 RBC Ql (U) 150 /ul Negative [facility] Work Phone: RBC Ql (U) 0 SEEN /hpf 0-5 [facility] Work Phone: [phone] Urine clarityon 03-02-2022 Clarity (U) Cloudy Clear [facility] Work Phone: Urine color determinationon 03-02-2022 Color (U) Yellow Yellow [facility] Work Phone: Urine glucose detectionon Glucose Ql (U) Normal mg/dl Normal [facility] Work Phone: Urine leukocyte esterase det ection by dipstickon 03-02-2022 Leukocyte esterase Test strip Ql (U) 500 /ul Negative [facility] Work Phone: Urine pHon 03-02-2022 pH (U) 8.0 [pH] 5.0 - 8.0 [facility] Work Phone: Urine sediment bacteria coun t by microscopy (number/high power field)on 03-02-2022 Bacteria LM.HPF (Urine sed) [#/Area] 3 /[HPF] None Seen [facility] Work Phone: Urine specific gravity measu rementon 03-02-2022 Specific gravity (U) [Rel density] 1.015 1.002-1.030 [facility] Work Phone: Urobilinogen Auto test strip Ql (U)on 03-02-2022 Urobilinogen Ql (U) Normal mg/dl Normal [facility] Work Phone: CBC panel Auto (Bld)on 09-06 Erythrocyte distribution width (RBC) [Ratio] 12.1 % 11.5 - 15.0 % [facility] Hematocrit (Bld) [Volume fraction] 38.6 % 36.0 - 46.0 % [facility] Hemoglobin (Bld) [Mass/Vol] 12.2 g/dL 11.5 - 15.5 g/dL [facility] MCH (RBC) [Entitic mass] 27.7 pg 26. 0 - 34.0 pg [facility] MCHC (RBC) [Mass/Vol] 31.6 g/dL 30.5 - 36.0 g/dL [facility] MCV (RBC) [Entitic vol] 87.7 fL 80.0 - 100.0 fL [facility] Nucleated RBC (Bld) [#/Vol] 10*3/uL <0.01 k/uL [facility] Platelet mean volume (Bld) [Entitic vol] 9.9 fL 9.0 - 12.7 fL [facility] Platelets (Bld) [#/Vol] 212 10*3/uL 150 - 400 k/uL [facility] RBC (Bld) [#/Vol] 4.40 10*6/uL 3.90 - 5.2 0 m/uL [facility] WBC (Bld) [#/Vol] 4.52 10*3/uL 3.70 - 11. 00 k/uL [facility] UA DIP, URINE (POC)on 2021 BILIRUBIN UA (POCT) Negative Negative [facility] CLARITY UA (POCT) Clear [facility] COLOR UA (POCT) Yellow [facility] GLUCOSE UA (POCT) Negative Negative mg/dL [facility] HEMOGLOBIN/BLOOD UA (POCT) Negative Negative [facility] KETONE UA (POCT) Negative Negative mg/dL [facility] LEUKOCYTES UA (POCT) Negative Negative [facility] NITRITE UA (POCT) Negative Negative [facility] PH UA (POCT) 5.5 4.5 - 8.0 [facility] Protein Ql (U) Negative Negative mg/dL [facility] SPECIFIC GRAVITY UA (POCT) 1.025 1.005 - 1.030 [facility] UROBILINOGEN UA (POCT) 0.2 E.U./dL Gema l E.U./dL [facility] Cris 12-07-2018 Ferritin [Mass/Vol] 2 ng/mL Low 8-252 [facility] ([place]) Comment on above: Performed By: #### C PARTH FOUNTAIN, ANEU #### [address] [address] #### BMP, HCGQ, GFR #### [place] [id number] [place] [address] .Auto Diffon 12-06-2018 Ammonia (P) [Mass/Vol] 0.50 10 3/mcL Normal 0.15-1.00 [facility] ([place]) Comment on above: Performed By: #### C BCPARTH, ANEU #### [address] [address] #### BMP, HCGQ, GFR #### [address] [address] Basophils (Bld) [#/Vol] 0.10 10 3/mcL Normal 0.00-0.19 [facility] ([place]) Comment on above: Performed By: #### C BC, ADIFF, ANEU #### [address] [address] #### BMP, HCGQ, GFR #### [address] [address] Basophils/100 WBC (Bld) 1.3 % Normal 0.0-2.5 [facility] ([place] Comment on above: Performed By: #### C BC, ADIFF, ANEU #### [place] [address] #### BMP, HCGQ, GFR #### [address] [address] Eosinophils (Bld) [#/Vol] 0.00 10 3/mcL Normal 0.00-0.40 [facility] ([place]) Comment on above: Performed By: #### C BC, ADIFF, ANEU #### [place] [address] #### BMP, HCGQ, GFR #### [address] [address] Eosinophils/100 WBC (Bld) 1.0 % Normal 0.0-7.0 [facility] ([place]) Comment on above: Performed By: #### C BC, ADIFF, ANEU #### [place] [address] #### BMP, HCGQ, GFR #### [address] [address] Lymphocytes (Bld) [#/Vol] 2.20 10 3/mcL Normal 0.77-3.85 [facility] ([place]) Comment on above: Performed By: #### C BC, ADIFF, ANEU #### [place] [address] #### BMP, HCGQ, GFR #### [address] [address] Lymphocytes/100 WBC (Bld) 47.9 % Normal 10.0-50.0 [facility] ([place]) Comment on above: Performed By: #### C BC, ADIFF, ANEU #### [address] [address] #### BMP, HCGQ, GFR #### [address] [address] Monocytes/100 WBC (Bld) 10.1 % Normal 1.7-13.0 [facility] Comment on above: Performed By: #### C BC, ADIFF, ANEU #### [place] [address] #### BMP, HCGQ, GFR #### [address] [address] Neutrophils/100 WBC (Bld) 39.7 % Normal 37.0-80.0 [facility] ([place]) Comment on above: Performed By: #### C BC, ADIFF, ANEU #### [place] [address] #### BMP, HCGQ, GFR #### [address] [address] .NEUABSon 12-06-2018 Neutrophils (Bld) [#/Vol] 1.80 10 3/mcL Low 2.85-6.16 [facility] ([place]) Comment on above: Performed By: #### C BC, ADIFF, ANEU #### [place] [address] #### BMP, HCGQ, GFR #### [address] [address] CBCon 12-06-2018 Erythrocyte distribution width (RBC) [Ratio] 17.7 % High 11.5-14.5 [facility] ([place]) Comment on above: Performed By: #### C BC, ADIFF, ANEU #### [place] [address] #### BMP, HCGQ, GFR #### [place] [address] Hematocrit (Bld) [Volume fraction] 31.6 % Low 37.0-47.0 [facility] ([place]) Comment on above: Performed By: #### C ESSIE, ADIFF, ANEU #### [address] [address] #### BMP, HCGQ, GFR #### [place] [address] Hemoglobin (Bld) [Mass/Vol] 9.9 G/dL Low 12.0-16.0 [facility] ([place]) Comment on above: Performed By: #### C ESSIE, PARTH, ANEU #### [place] [address] #### BMP, HCGQ, GFR #### [place] [address] MCH (RBC) [Entitic mass] 22.2 pg Low 27.0-31.2 [facility] ([place]) Comment on above: Performed By: #### C BC, ADIFF, ANEU #### [place] [address] #### BMP, HCGQ, GFR #### [place] [address] MCHC (RBC) [Mass/Vol] 31.2 G/dL Low 33.0-37.0 [facility] ([place]) Comment on above: Performed By: #### C ESSIE, ADIFF, ANEU #### [place] [address] #### BMP, HCGQ, GFR #### [place] [address] MCV (RBC) [Entitic vol] 70.9 fL Low 80.0-94.0 [facility] Comment on above: Performed By: #### C ESSIE, ADIFF, ANEU #### [place] [address] #### BMP, HCGQ, GFR #### [address] [address] Platelet mean volume (Bld) [Entitic vol] 8.0 fL Normal 7.4-10.4 [facility] ([place]) Comment on above: Performed By: #### C BC, ADIFF, ANEU #### [place] [address] #### BMP, HCGQ, GFR #### [place] [address] Platelets (Bld) [#/Vol] 250 10 3/mcL Normal 130-400 [facility] ([place]) Comment on above: Performed By: #### C BC, ADIFF, ANEU #### [place] [address] #### BMP, HCGQ, GFR #### [place] [address] RBC (Bld) [#/Vol] 4.45 10 6/mcL Normal 4.20-5.40 [facility] ([place]) Comment on above: Performed By: #### C BC, ADIFF, ANEU #### [place] [address] #### BMP, HCGQ, GFR #### [place] [address] WBC (Bld) [#/Vol] 4.60 10 3/mcL Normal 4.60-10.80 [facility] ([place]) Comment on above: Performed By: #### C BC, ADIFF, ANEU #### [place] [address] #### BMP, HCGQ, GFR #### [place] [address] IBCon 12-06-2018 TIBC 456 mcg/dL High 250-450 [facility] ([place]) Comment on above: Performed By: #### C BC, ADIFF, ANEU #### [place] [address] #### BMP, HCGQ, GFR #### [place] [address] HHon 11-09-2018 Hematocrit (Bld) [Volume fraction] 28.4 % Low 37.0-47.0 [facility] ([place]) Comment on above: Performed By: #### PARTH SOTO, ANEU #### [place] [address] #### BMP, HCGQ, GFR #### [place] [address] Hemoglobin (Bld) [Mass/Vol] 8.9 G/dL Low 12.0-16.0 [facility] ([place]) Comment on above: Performed By: #### C PARTH [place]OUNT[place], ANEU #### [place] [address] #### BMP, HCGQ, GFR #### [place] [address] .Auto Diffon 09-28-2018 Ammonia (P) [Mass/Vol] 0.30 10 3/mcL Normal 0.15-1.00 [facility] ([place]) Comment on above: Performed By: #### C PARTH FOUNTAIN, ANEU #### [place] [address] #### BMP, HCGQ, GFR #### [place] [address] Basophils (Bld) [#/Vol] 0.00 10 3/mcL Normal 0.00-0.19 [facility] ([place]) Comment on above: Performed By: #### PARTH SOTO, ANEU #### [place] [address] #### BMP, HCGQ, GFR #### [place] [address] Basophils/100 WBC (Bld) 0.7 % Normal 0.0-2.5 [facility] [place] Comment on above: Performed By: #### Alyse FOUNTAIN, ADMICHI, ANEU #### [place] [address] #### BMP, HCGQ, GFR #### [address] [address] Eosinophils (Bld) [#/Vol] 0.10 10 3/mcL Normal 0.00-0.40 [facility] ([place]) Comment on above: Performed By: #### C BC, ADIFF, ANEU #### [address] [address] #### BMP, HCGQ, GFR #### [address] [address] Eosinophils/100 WBC (Bld) 1.7 % Normal 0.0-7.0 [facility] ([place]) Comment on above: Performed By: #### C BC, ADIFF, ANEU #### [address] [address] #### BMP, HCGQ, GFR #### [address] [address] Lymphocytes (Bld) [#/Vol] 1.50 10 3/mcL Normal 0.77-3.85 [facility] ([place]) Comment on above: Performed By: #### C BC, ADIFF, ANEU #### [address] [address] #### BMP, HCGQ, GFR #### [address] [address] Lymphocytes/100 WBC (Bld) 41.0 % Normal 10.0-50.0 [facility] ([place]) Comment on above: Performed By: #### C BC, ADIFF, ANEU #### [place] [address] #### BMP, HCGQ, GFR #### [address] [address] Monocytes/100 WBC (Bld) 7.0 % Normal 1.7-13.0 [facility] Comment on above: Performed By: #### C BC, ADIFF, ANEU #### [address] [address] #### BMP, HCGQ, GFR #### [address] [address] Neutrophils/100 WBC (Bld) 49.6 % Normal 37.0-80.0 [facility] ([place]) Comment on above: Performed By: #### PARTH SOTO, ANEU #### [address] [address] #### BMP, HCGQ, GFR #### [address] [address] .NEUABSon 09-28-2018 Neutrophils (Bld) [#/Vol] 1.90 10 3/mcL Low 2.85-6.16 [facility] ([place]) Comment on above: Performed By: #### PARTH SOTO, ANEU #### [place] [address] #### BMP, HCGQ, GFR #### [address] [address] CBCon 09-28-2018 Erythrocyte distribution width (RBC) [Ratio] 13.9 % Normal 11.5-14.5 [facility] ([place]) Comment on above: Performed By: #### C KERRIE FOUNTAINIFF, ANEU #### [place] [address] #### BMP, HCGQ, GFR #### [place] [address] Hematocrit (Bld) [Volume fraction] 19.5 % Low 37.0-47.0 [facility] ([place]) Comment on above: Performed By: #### KERRIE SOTOIFF, ANEU #### [place] [address] #### BMP, HCGQ, GFR #### [address] [address] Hemoglobin (Bld) [Mass/Vol] 6.8 G/dL Critically abnormal 12.0-16.0 [facility] ([place]) Comment on above: Performed By: #### Alyse FOUNTAIN ADIFF, ANEU #### [place] [address] #### BMP, HCGQ, GFR #### [address] [address] MCH (RBC) [Entitic mass] 30.8 pg Normal 27.0-31.2 [facility] ([place]) Comment on above: Performed By: #### C PARTH FOUNTIAN, ANEU #### [address] [address] #### BMP, HCGQ, GFR #### [place] [address] MCHC (RBC) [Mass/Vol] 35.0 G/dL Normal 33.0-37.0 [facility] ([place]) Comment on above: Performed By: #### C PARTH FOUNTAIN, ANEU #### [place] [address] #### BMP, HCGQ, GFR #### [place] [address] MCV (RBC) [Entitic vol] 88.2 fL Normal 80.0-94.0 [facility] [place] Comment on above: Performed By: #### C PARTH FOUNTAIN, ANEU #### [place] [address] #### BMP, HCGQ, GFR #### [place] [address] Platelet mean volume (Bld) [Entitic vol] 7.3 fL Low 7.4-10.4 [facility] ([place]) Comment on above: Performed By: #### C PARTH FOUNTAIN, ANEU #### [place] [address] #### BMP, HCGQ, GFR #### [place] [address] Platelets (Bld) [#/Vol] 308 10 3/mcL Normal 130-400 [facility] ([place]) Comment on above: Performed By: #### C BC, ADIFF, ANEU #### [place] [address] #### BMP, HCGQ, GFR #### [place] [address] RBC (Bld) [#/Vol] 2.21 10 6/mcL Low 4.20-5.40 [facility] ([place]) Comment on above: Performed By: #### C BC, ADIFF, ANEU #### [address] [address] #### BMP, HCGQ, GFR #### [address] [address] WBC (Bld) [#/Vol] 3.80 10 3/mcL Low 4.60-10.80 [facility] ([place]) Comment on above: Performed By: #### C BC, ADIFF, ANEU #### [place] [address] #### BMP, HCGQ, GFR #### [place] [address] Gel ABOon 09-28-2018 ABO/Rh Interp Positive [facility] ([place]) Comment on above: Performed By: #### C BC, ADIFF, ANEU #### [place] [address] #### BMP, HCGQ, GFR #### [place] [address] Gel ABSon 09-28-2018 Antibody Screen Gel Negative Normal [facility] ([place]) Comment on above: Performed By: #### C BC, ADIFF, ANEU #### [place] [address] #### BMP, HCGQ, GFR #### [place] [address] HCGQon 09-28-2018 hCG, quantitative 276.0 mIU/mL Normal [facility] ([place]) Comment on above: Result Comment: HCG Quantitative [...] By: #### C BC, ADIFF, ANEU #### [address] [address] #### BMP, HCGQ, GFR #### [place] [id number] PREGSon 09-28-2018 test (s) Positive [facility] Comment on above: Performed By: #### C BC, ADIFF, ANEU #### [place] [address] #### BMP, HCGQ, GFR #### [place] [address] test (s) int HCG detected. [facility] ([place]) Comment on above: Performed By: #### C BC, ADIFF, ANEU #### [place] [address] #### BMP, HCGQ, GFR #### [place] [id number] US TRANSVAGINAL NON OBon US TRANSVAGINAL NON [...] PM Sign Date: 09/28/2018 1:30:52 PM Normal [facility] ([place]) .Auto Diffon 09-22-2018 Ammonia (P) [Mass/Vol] 0.40 10 3/mcL Normal 0.15-1.00 [facility] ([place]) Comment on above: Performed By: #### C PARTH FOUNTAIN, ANEU #### [place] [address] #### BMP, HCGQ, GFR #### [address] [address] Basophils (Bld) [#/Vol] 0.00 10 3/mcL Normal 0.00-0.19 [facility] ([place]) Comment on above: Performed By: #### C BCPARTH ANEU #### [place] [address] #### BMP, HCGQ, GFR #### [address] [address] Basophils/100 WBC (Bld) 0.4 % Normal 0.0-2.5 [facility] [place] Comment on above: Performed By: #### C BC, ADIFF, ANEU #### [place] [address] #### BMP, HCGQ, GFR #### [address] [address] Eosinophils (Bld) [#/Vol] 0.00 10 3/mcL Normal 0.00-0.40 [facility] ([place]) Comment on above: Performed By: #### C BC, ADIFF, ANEU #### [address] [address] #### BMP, HCGQ, GFR #### [address] [address] Eosinophils/100 WBC (Bld) 0.7 % Normal 0.0-7.0 [facility] ([place]) Comment on above: Performed By: #### C BC, ADIFF, ANEU #### [place] [address] #### BMP, HCGQ, GFR #### [address] [address] Lymphocytes (Bld) [#/Vol] 1.50 10 3/mcL Normal 0.77-3.85 [facility] ([place]) Comment on above: Performed By: #### C BC, ADIFF, ANEU #### [place] [address] #### BMP, HCGQ, GFR #### [address] [address] Lymphocytes/100 WBC (Bld) 31.1 % Normal 10.0-50.0 [facility] ([place] Comment on above: Performed By: #### C BC, ADIFF, ANEU #### [place] [address] #### BMP, HCGQ, GFR #### [address] [address] Monocytes/100 WBC (Bld) 7.4 % Normal 1.7-13.0 [facility] ([place]) Comment on above: Performed By: #### C BC, ADIFF, ANEU #### [address] [address] #### BMP, HCGQ, GFR #### [address] [address] Neutrophils/100 WBC (Bld) 60.4 % Normal 37.0-80.0 [facility] ([place]) Comment on above: Performed By: #### C BC, ADIFF, ANEU #### [address] [address] #### BMP, HCGQ, GFR #### [address] [address] .GFRon 09-22-2018 GFR 117 ml/min/1.73sqm Normal [facility] ([place]) Comment on above: Result Comment: GFR Population [...] #### C BC, ADIFF, ANEU #### Benigno [address] [address] #### BMP, HCGQ, GFR #### [address] [address] GFR Non- 96 ml/min/1.73sqm Normal [facility] ([place]) Comment on above: Result Comment: GFR Population [...] By: #### C BC, ADIFF, ANEU #### [address] [address] #### BMP, HCGQ, GFR #### [address] [address] .NEUABSon 09-22-2018 Neutrophils (Bld) [#/Vol] 3.00 10 3/mcL Normal 2.85-6.16 [facility] ([place]) Comment on above: Performed By: #### C BC, ADIFF, ANEU #### [address] [address] #### BMP, HCGQ, GFR #### [place] [address] ABO/Rh Retype Gelon 09-23-19 19 ABO/Rh Retype Gel Positive [facility] ([place]) Comment on above: Order Comment: Order ed by Discern Performed By: #### A ISIDRA #### [address] [address] BMPon 09-22-2018 Calcium [Mass/Vol] 9.6 mg/dL Normal 8.4-10.2 [facility] ([place]) Comment on above: Performed By: #### C BC, ADIFF, ANEU #### [place] [address] #### BMP, HCGQ, GFR #### [place] [address] Chloride [Moles/Vol] 105 mmol/L Normal 98-107 [facility] ([place]) Comment on above: Performed By: #### C BC, ADIFF, ANEU #### [place] [address] #### BMP, HCGQ, GFR #### [address] [address] CO2 [Moles/Vol] 26 mmol/L Normal 22-29 [facility] ([place]) Comment on above: Performed By: #### C BC, ADIFF, ANEU #### [place] [address] #### BMP, HCGQ, GFR #### [place] [id number] Creatinine [Mass/Vol] 0.72 mg/dL Normal 0.55-1.02 [facility] ([place]) Comment on above: Performed By: #### C BC, ADIFF, ANEU #### [address] [address] #### BMP, HCGQ, GFR #### [address] [address] Electrolyte Balance 12.0 mEq/L Normal [facility] ([place]) Comment on above: Performed By: #### C BC, ADIFF, ANEU #### [address] [address] #### BMP, HCGQ, GFR #### [address] [address] Glucose [Mass/Vol] 92 mg/dL Normal 70-105 [facility] ([place]) Comment on above: Performed By: #### C BC, ADIFF, ANEU #### [place] [address] #### BMP, HCGQ, GFR #### [address] [address] Potassium [Moles/Vol] 3.6 mmol/L Normal 3.5-5.1 [facility] ([place]) Comment on above: Performed By: #### C BC, ADIFF, ANEU #### [address] [address] #### BMP, HCGQ, GFR #### [address] [address] Sodium [Moles/Vol] 143 mmol/L Normal 136-145 [facility] ([place]) Comment on above: Performed By: #### C BC, ADIFF, ANEU #### [address] [address] #### BMP, HCGQ, GFR #### [address] [address] Urea nitrogen [Mass/Vol] 13 mg/dL Normal 7-18 [facility] ([place]) Comment on above: Performed By: #### C BC, ADIFF, ANEU #### [address] [address] #### BMP, HCGQ, GFR #### [address] [address] Urea nitrogen/Creatinine [Mass ratio] 18 ratio Normal 7-27 [facility] ([place]) Comment on above: Performed By: #### C BC, ADIFF, ANEU #### [address] [address] #### BMP, HCGQ, GFR #### [place] [address] CBCon 09-22-2018 Erythrocyte distribution width (RBC) [Ratio] 12.9 % Normal 11.5-14.5 [facility] ([place]) Comment on above: Performed By: #### C BC, ADIFF, ANEU #### [place] [address] #### BMP, HCGQ, GFR #### [place] [address] Hematocrit (Bld) [Volume fraction] 37.0 % Normal 37.0-47.0 [facility] ([place]) Comment on above: Performed By: #### C BC, ADIFF, ANEU #### [place] [address] #### BMP, HCGQ, GFR #### [place] [address] Hemoglobin (Bld) [Mass/Vol] 12.6 G/dL Normal 12.0-16.0 [facility] ([place]) Comment on above: Performed By: #### C BC, ADIFF, ANEU #### [place] [address] #### BMP, HCGQ, GFR #### [address] [address] MCH (RBC) [Entitic mass] 29.3 pg Normal 27.0-31.2 [facility] ([place]) Comment on above: Performed By: #### C BC, ADIFF, ANEU #### [place] [address] #### BMP, HCGQ, GFR #### [address] [address] MCHC (RBC) [Mass/Vol] 33.9 G/dL Normal 33.0-37.0 [facility] ([place]) Comment on above: Performed By: #### C BC, ADIFF, ANEU #### [place] [address] #### BMP, HCGQ, GFR #### [place] [address] MCV (RBC) [Entitic vol] 86.4 fL Normal 80.0-94.0 [facility] ([place]) Comment on above: Performed By: #### C BC, ADIFF, ANEU #### [place] [address] #### BMP, HCGQ, GFR #### [place] [address] Platelet mean volume (Bld) [Entitic vol] 7.4 fL Normal 7.4-10.4 [facility] ([place]) Comment on above: Performed By: #### C BC, ADIFF, ANEU #### [place] [address] #### BMP, HCGQ, GFR #### [place] [address] Platelets (Bld) [#/Vol] 180 10 3/mcL Normal 130-400 [facility] ([place]) Comment on above: Performed By: #### C BC, ADIFF, ANEU #### [place] [address] #### BMP, HCGQ, GFR #### [place] [id number] RBC (Bld) [#/Vol] 4.29 10 6/mcL Normal 4.20-5.40 [facility] ([place]) Comment on above: Performed By: #### C BC, ADIFF, ANEU #### [place] [address] #### BMP, HCGQ, GFR #### [address] [address] WBC (Bld) [#/Vol] 4.90 10 3/mcL Normal 4.60-10.80 [facility] ([place]) Comment on above: Performed By: #### C [place] ANEU #### [address] [address] #### BMP, HCGQ, GFR #### [address] [address] Gel ABOon 09-22-2018 ABO/Rh Interp Positive [facility] ([place]) Comment on above: Performed By: #### AURA MENDOZA #### [address] [address] Gel ABSon 09-22-2018 Antibody Screen Gel Negative Normal [facility] ([place]) Comment on above: Performed By: #### AURA MENDOZA #### [address] [address] HCGQon 09-22-2018 hCG, quantitative 7177.0 mIU/mL Normal [facility] ([place]) Comment on above: Result Comment: HCG Quantitative [...] By: #### C [place], ANEU #### [address] [place] [address] #### BMP, HCGQ, GFR #### [facility] [address] [place] [address] PREGUon 09-17-2018 HCG ( test) Ql (U) Positive Normal [facility] ([place]) Comment on above: Performed By: #### P REGU #### [address] [address] test (u) int HCG detected. [facility] ([place]) Comment on above: Performed By: #### P REGU #### [address] [address] C Urineon 05-02-2017 C Urine Final Report: Moderate growth of Normal skin karen isolated Normal [facility] Comment on above: Performed By: #### 2 [id number] ####[place] Microbiology Fas[address]ksq94[address] [place] [address] Auto Diffon 04-30-2017 Basophils Auto #/vol (Bld) 0.0 E3/mcL Normal 0.0-0.2 [facility] Comment on above: Order Comment: Order Added by Discern Expert. Performed By: #### 2 [id number] ####[place] EqyVcok4783 [place] [address] Basophils/100 WBC Auto (Bld) 0.5 % Normal 0.0-2.0 [facility] Comment on above: Order Comment: Order Added by Discern Expert. Performed By: #### 2 [id number] ####[place] NtbCkzj1229 [place] [address] Eos Absolute 0.0 E3/mcL Normal 0.0-0.7 [facility] Comment on above: Order Comment: Order Added by Discern Expert. Performed By: #### 2 [id number] ####[place] PwnQkcw0896 [place] [address] Eosinophils/100 leukocytes 0.1 % Normal 0.0-11.0 [facility] Comment on above: Order Comment: Order Added by Discern Expert. Performed By: #### 2 [id number] ####[place] HhrYofe7509 [place] [address] Lymphocytes 0.6 E3/mcL Low 1.2-3.4 [facility] Comment on above: Order Comment: Order Added by Discern Expert. Performed By: #### 2 [id number] ####[place] Palmao[address]25 [place] [address] Lymphocytes/100 leukocytes 9.8 % Low 20.0-55.0 [facility] Comment on above: Order Comment: Order Added by Discern Expert. Performed By: #### 2 [id number] ####[place] [address] [place] [address] Swain Absolute 0.5 E3/mcL Normal 0.0-0.7 [facility] Comment on above: Order Comment: Order Added by Discern Expert. Performed By: #### 2 [id number] ####CAR[place] [address] [place] [address] Monocytes/100 leukocytes 7.3 % Normal 0.0-10.0 [facility] Comment on above: Order Comment: Order Added by Discern Expert. Performed By: #### 2 [id number] ####CAR[place] [address] [place] [address] Neutro Absolute 5.2 E3/mcL Normal 1.4-6.5 [facility] Comment on above: Order Comment: Order Added by Discern Expert. Performed By: #### 2 107600 ####[place] MeloWhwRpcr6663 [place] [address] Neutro Auto 82.3 % High 37.0-75.0 [facility] Comment on above: Order Comment: Order Added by Discern Expert. Performed By: #### 2 [id number] ####[place] MeloSpsCdog5128 [place] [address] BMPon 04-30-2017 BUN/Creatinine Ratio 20.0 ratio Normal 5.4-30.0 [facility] Comment on above: Performed By: #### 2 769554 ####[place] MeloPdxBopc6674 [place] [address] Creatinine 0.7 mg/dL Normal 0.6-1.3 [facility] Comment on above: Performed By: #### 2 539753 ####[place] MeloVfjTpzb3157 [place] [address] Urea nitrogen 14 mg/dL Normal 7-18 [facility] Comment on above: Performed By: #### 2 [id number] ####[place] UzgYmie6659 [place] [address] Calcium 9.1 mg/dL Normal 8.4-10.2 [facility] Comment on above: Performed By: #### 2 [id number] ####[place] XxmIucl0037 [place] [address] Chloride 102 mmol/L Normal 98-107 [facility] Comment on above: Performed By: #### 2 605571 ####[place] DngAgzx2160 [place] [address] CO2 25.6 mmol/L Normal 24.0-30.0 [facility] Comment on above: Performed By: #### 2 173553 ####[place] KeyLojs5997 [place] [address] Glucose mass conc 100 mg/dL High 70-99 [facility] Comment on above: Performed By: #### 2 238383 ####[place] GgmNsug3791 [place] [address] Potassium molar conc 3.7 mmol/L Normal 3.5-5.1 [facility] Comment on above: Performed By: #### 2 697385 ####[place] LjwHdey4501 [place] [address] Sodium 137 mmol/L Normal 136-145 [facility] Comment on above: Performed By: #### 2 884032 ####[place] IrdGhdv4937 [place] [address] CBC w/ Auto Diffon 7 Erythrocyte distribution width Auto Ratio (RBC) 14.0 % Normal 11.5-14.5 [facility] Comment on above: Performed By: #### 2 546661 ####[place] MeloSidSxho6088 [place] [address] Erythrocytes (RBC) 4.76 E6/mcL Normal 3.90-5.40 [facility] Comment on above: Performed By: #### 2 622472 ####CAROLINAHossein MeloFptUcav6281 [place] [address] Hematocrit (HCT) 39.3 % Normal 36.0-48.0 [facility] Comment on above: Performed By: #### 2 296101 ####CAR[place] [address] [place] [address] Hemoglobin mass conc (Bld) 12.8 g/dL Normal 12.0-16.0 [facility] Comment on above: Performed By: #### 2 [id number] ####CAR[place] [address] [place] [address] MCH 26.9 pg Low 27.0-31.0 [facility] Comment on above: Performed By: #### 2 442627 ####[place] MeloAceMybz4124 [place] [address] MCHC mass conc (RBC) 32.6 g/dL Low 33.0-37.0 [facility] Comment on above: Performed By: #### 2 387480 ####CAROLINA [address] [place] [address] MCV 82.4 fL Normal 78.0-100.0 [facility] Comment on above: Performed By: #### 2 [id number] ####[place] MeloZnqJxib1165 [place] [address] Platelet mean volume (PMV) 8.0 fL Normal 7.4-11.0 [facility] Comment on above: Performed By: #### 2 [id number] ####[place] MeloWmmOxvk4734 [place] [address] Platelets 198 E3/mcL Normal 130-400 [facility] Comment on above: Performed By: #### 2 846549 ####[place] MeloSqxBqdb6869 [place] [address] WBC (Leukocytes) 6.4 E3/mcL Normal 3.6-11.0 [facility] Comment on above: Performed By: #### 2 559498 ####[place] MeloFloWyfp9746 [place] [address] Hep Func Panelon 04-30-2017 Alanine aminotransferase (ALT) 15 Int._Unit/L Normal 10-40 [facility] Comment on above: Performed By: #### 2 215997 ####CAROLINAHossein MeloHnhHsaq3102 [place] [address] Albumin 4.1 g/dL Normal 3.2-5.0 [facility] Comment on above: Performed By: #### 2 128899 ####[place] Unger[address] [place] [address] Albumin/Globulin Ratio 1.4 {ratio} Normal 1.1-1.9 [facility] Comment on above: Performed By: #### 2 298844 ####[place] RhtYgvc5943 [place] [address] Alk Phos 58 Int._Unit/L Normal 42-121 [facility] Comment on above: Performed By: #### 2 189822 ####[place] Unger[address] [place] [address] Aspartate aminotransferase (AST) 20 Int._Unit/L Normal 10-42 [facility] Comment on above: Performed By: #### 2 855496 ####[place] Unger[address] [place] [address] Bili Direct .12 mg/dL Normal .00-.20 [facility] Comment on above: Performed By: #### 2 452791 ####[place] [address]ger[address] [place] [address] Bili Indirect 0.7 Normal [facility] Comment on above: Result Comment: No e stablished ranges available for the Indirect Biliruben. Performed By: #### 2 [id number] ####[place] TbbXrul9935 [place] [address] Bili Total 0.8 mg/dL Normal 0.2-1.0 [facility] Comment on above: Performed By: #### 2 112942 ####[place] ZhgOmbv5616 [place] [address] Globulin 3.0 g/dL Normal 2.0-4.0 [facility] Comment on above: Performed By: #### 2 004957 ####CAR[place]INA Unger[address] [place] [address] Protein 7.1 g/dL Normal 6.4-8.3 [facility] Comment on above: Performed By: #### 2 741030 ####[place] NpiOsxf7791 [place] [address] Lipase Levelon 04-30-2017 Lipase Lvl 21 U/L Normal 8-57 [facility] Comment on above: Performed By: #### 2 685120 ####CAR[place]INA YydGheu3383 [place] [address] U BhCG Qlton 04-30-2017 HCG.beta subunit Qn Positive Normal Neg [facility] Comment on above: Performed By: #### 2 247255 ####[place] Urinalysis Manual [address]ijm28[address] [place] [id number] UA Completeon 04-30-2017 UA Blood Negative Normal Negative [facility] Comment on above: Performed By: #### 8 [id number] ####[place] Urinalysis Automated [address] [place] [address] UA Clarity SltCloudy Abnormal Clear [facility] Comment on above: Performed By: #### 8 [id number] ####[place] Urinalysis Automated [address] [place] [address] UA Leuk Est Negative Normal Negative [facility] Comment on above: Performed By: #### 8 [id number] ####[place] Urinalysis Automated Ixbnjhfeti2813 [place] [address] UA Mucous Few Abnormal Trace [facility] Comment on above: Performed By: #### 8 [id number] ####[place] Urinalysis Automated Qkqbeawgih0006 [place] [address] UA Nitrite Negative Normal Negative [facility] Comment on above: Performed By: #### 8 [id number] ####[place] Urinalysis Automated Dsfirnahdq0702 [place] [address] UA pH 5.0 Normal 4.6-8.0 [facility] Comment on above: Performed By: #### 8 [id number] ####[place] Urinalysis Automated Ddcwrfumxm3262 [place] [address] UA Protein Negative Normal Negative [facility] Comment on above: Performed By: #### 8 [id number] ####[place] Urinalysis Automated Cozzcqyjcw8007 [place] [address] UA Spec Grav 1.024 Normal 1.003-1.030 [facility] Comment on above: Performed By: #### 8 [id number] ####[place] Urinalysis Automated Hsvlvzafiu4883 [place] [address] UA Squam Epithelial 5-10 Abnormal 0-5 [facility] Comment on above: Performed By: #### 8 [id number] ####[place] Urinalysis Automated Pmgblssuwp6099 [place] [address] UA Urobilinogen 2.0 mg/dL Abnormal [facility] Comment on above: Performed By: #### 8 [id number] ####[place] Urinalysis Automated Laflpyjwoj4830 [place] [address] UA WBC 0-5 Normal 0-5 [facility] Comment on above: Performed By: #### 8 [id number] ####[place] Urinalysis Automated Wrdqokrutk6452 [place] [address] Urine, color Yellow Normal Yellow [facility] Comment on above: Performed By: #### 8 [id number] ####[place] Urinalysis Automated Okfflfsgex8585 [place] [address] Urine, erythrocytes 0-3 Normal 0-3 [facility] Comment on above: Performed By: #### 8 [id number] ####[place] Urinalysis Automated Cpxvcvhkis2888 [place] [address] Urine, glucose Negative Normal Negative [facility] Comment on above: Performed By: #### 8 [id number] ####[place] Urinalysis Automated Qcvmbjkzvm3876 [place] [address] Urine, ketones presence Negative Normal Negative [facility] Comment on above: Performed By: #### 8 [id number] ####[place] Urinalysis Automated Lzfnqblybf2647 [place] [address] Urine, urobilinogen Negative Normal Negative [facility] Comment on above: Performed By: #### 8 [id number] ####[place] Urinalysis Automated Ugfitlieyo0681 [place] [address] eGFRon 04-30-2017 eGFR (non-black) mL/min/{1.73_m2} Normal [facility] Comment on above: Order Comment: Order added by Discern Expert. Performed By: #### 1 [id number] ####[place] XvsXcez1276 [place] [address] Culture, urine Bacteria identified Cx Nom (U) Escherichia coli [facility] Work Phone: Vital Signs Date Time Vital Sign Value Performing Clinician Facility 12-04-2024 12:37-0400 Body mass index (BMI) [Ratio] 16.9 kg/m2 Pina NUNES-C Work Phone: [facility] 12-04-2024 12:37-0400 Body temperature 98.29 [degF] Pina Wilson PA-C Work Phone: [facility] 12-04-2024 12:37-0400 Body weight 41.39 kg Pina NUNES-C Work Phone: [facility] 12-04-2024 12:37-0400 Diastolic blood pressure 60 mm[Hg] Pina Wilson PA-C Work Phone: [facility] 12-04-2024 12:37-0400 Heart rate 77 /min Pina NUNES-C Work Phone: [facility] 12-04-2024 12:37-0400 Respiratory rate 16 /min Pina Wilson PA-C Work Phone: [facility] 12-04-2024 12:37-0400 SaO2% (BldA) [Mass fraction] 97 % Pina NUNES-C Work Phone: [facility] 12-04-2024 12:37-0400 Systolic blood pressure 88 mm[Hg] Pina NUNES-C Work Phone: [facility] 09-20-2024 10:03-0400 Body mass index (BMI) [Ratio] 16.76 kg/m2 Yaneth Davenport Work Phone: [facility] 09-20-2024 10:03-0400 Body temperature 97.39 [degF] Yaneth Davenoprt Work Phone: [facility] 09-20-2024 10:03-0400 Body weight 41.05 kg Yaneth Davenport Work Phone: [facility] 09-20-2024 10:03-0400 Diastolic blood pressure 61 mm[Hg] Yaneth Davenport Work Phone: [facility] 09-20-2024 10:03-0400 Heart rate 67 /min Yaneth Davenport Work Phone: [facility] 09-20-2024 10:03-0400 SaO2% (BldA) [Mass fraction] 99 % Yaneth Davenport Work Phone: [facility] 09-20-2024 10:03-0400 Systolic blood pressure 91 mm[Hg] Yaneth Davenport Work Phone: [facility] 07-26-2024 10:05-0500 Body temperature 98.6 [degF] Treatment Wstr Work Phone: [facility] 07-26-2024 10:05-0500 Diastolic blood pressure 66 mm[Hg] Treatment Wstr Work Phone: [facility] 07-26-2024 10:05-0500 Heart rate 77 /min Treatment Wstr Work Phone: [facility] 07-26-2024 10:05-0500 Respiratory rate 18 /min Treatment Wstr Work Phone: [facility] 07-26-2024 10:05-0500 SaO2% (BldA) [Mass fraction] 97 % Treatment Wstr Work Phone: [facility] 07-26-2024 10:05-0500 Systolic blood pressure 100 mm[Hg] Treatment Wstr Work Phone: [facility] 07-24-2024 10:11-0500 Body temperature 98.91 [degF] Treatment Wstr Work Phone: [facility] 07-24-2024 10:11-0500 Diastolic blood pressure 63 mm[Hg] Treatment Wstr Work Phone: [facility] 07-24-2024 10:11-0500 Heart rate 72 /min Treatment Wstr Work Phone: [facility] 07-24-2024 10:11-0500 Respiratory rate 16 /min Treatment Wstr Work Phone: [facility] 07-24-2024 10:11-0500 SaO2% (BldA) [Mass fraction] 100 % Treatment Wstr Work Phone: [facility] 07-24-2024 10:11-0500 Systolic blood pressure 96 mm[Hg] Treatment Wstr Work Phone: [facility] 07-22-2024 09:00-0500 Body temperature 97.9 [degF] Treatment Wstr Work Phone: [facility] 07-22-2024 09:00-0500 Diastolic blood pressure 60 mm[Hg] Treatment Wstr Work Phone: [facility] 07-22-2024 09:00-0500 Heart rate 79 /min Treatment Wstr Work Phone: [facility] 07-22-2024 09:00-0500 Systolic blood pressure 92 mm[Hg] Treatment Wstr Work Phone: [facility] 07-18-2024 10:13-0500 Body temperature 99.3 [degF] Treatment Wstr Work Phone: [facility] 07-18-2024 10:13-0500 Diastolic blood pressure 50 mm[Hg] Treatment Wstr Work Phone: [facility] 07-18-2024 10:13-0500 Heart rate 73 /min Treatment Wstr Work Phone: [facility] 07-18-2024 10:13-0500 Respiratory rate 22 /min Treatment Wstr Work Phone: [facility] 07-18-2024 10:13-0500 SaO2% (BldA) [Mass fraction] 100 % Treatment Wstr Work Phone: [facility] 07-18-2024 10:13-0500 Systolic blood pressure 93 mm[Hg] Treatment Wstr Work Phone: [facility] 07-16-2024 08:42-0500 Body mass index (BMI) [Ratio] 17.35 kg/m2 Treatment Wstr Work Phone: [facility] 07-16-2024 08:42-0500 Body temperature 98.29 [degF] Treatment Wstr Work Phone: [facility] 07-16-2024 08:42-0500 Body weight 42.5 kg Treatment Wstr Work Phone: [facility] 07-16-2024 08:42-0500 Diastolic blood pressure 66 mm[Hg] Treatment Wstr Work Phone: [facility] 07-16-2024 08:42-0500 Heart rate 82 /min Treatment Wstr Work Phone: [facility] 07-16-2024 08:42-0500 SaO2% (BldA) [Mass fraction] 100 % Treatment Wstr Work Phone: [facility] 07-16-2024 08:42-0500 Systolic blood pressure 99 mm[Hg] Treatment Wstr Work Phone: [facility] 07-11-2024 10:25-0500 Body height 156.5 cm Yaneth Davenport Work Phone: [facility] 07-11-2024 10:25-0500 Body mass index (BMI) [Ratio] 16.48 kg/m2 Yaneth Davenport Work Phone: [facility] 07-11-2024 10:25-0500 Body temperature 99 [degF] Yaneth Davenport Work Phone: [facility] 07-11-2024 10:25-0500 Body weight 40.37 kg Yaneth Davenport Work Phone: [facility] 07-11-2024 10:25-0500 Diastolic blood pressure 75 mm[Hg] Yaneth Davenport Work Phone: [facility] 07-11-2024 10:25-0500 Heart rate 87 /min Yaneth Davenport Work Phone: [facility] 07-11-2024 10:25-0500 SaO2% (BldA) [Mass fraction] 97 % Yaneth Davenport Work Phone: [facility] 07-11-2024 10:25-0500 Systolic blood pressure 99 mm[Hg] Yaneth Davenport Work Phone: [facility] 07-08-2024 10:49-0500 Body mass index (BMI) [Ratio] 17.58 kg/m2 Marlyn Estrada BOTTLING MACHINE OPERATOR.SEAMER OPERATOR Work Phone: [facility] 07-08-2024 10:49-0500 Body weight 40.82 kg Marlyn Estrada BOTTLING MACHINE OPERATOR.SEAMER OPERATOR Work Phone: [facility] 07-08-2024 10:49-0500 Diastolic blood pressure 62 mm[Hg] Marlyn Estrada BOTTLING MACHINE OPERATOR.SEAMER OPERATOR Work Phone: [facility] 07-08-2024 10:49-0500 Heart rate 66 /min Marlyn Estrada BOTTLING MACHINE OPERATOR.SEAMER OPERATOR Work Phone: [facility] 07-08-2024 10:49-0500 Respiratory rate 14 /min Marlyn Estrada BOTTLING MACHINE OPERATOR.SEAMER OPERATOR Work Phone: [facility] 07-08-2024 10:49-0500 SaO2% (BldA) [Mass fraction] 100 % Marlyn Estrada BOTTLING MACHINE OPERATOR.SEAMER OPERATOR Work Phone: [facility] 07-08-2024 10:49-0500 Systolic blood pressure 108 mm[Hg] Marlyn Estrada BOTTLING MACHINE OPERATOR.SEAMER OPERATOR Work Phone: [facility] 07-03-2024 13:41-0500 Body mass index (BMI) [Ratio] 18.04 kg/m2 Josemanuel Clutter PA-C Work Phone: [facility] 07-03-2024 13:41-0500 Body temperature 98.29 [degF] Josemanuel Clutter PA-C Work Phone: [facility] 07-03-2024 13:41-0500 Body weight 41.9 kg Josemanuel Clutter PA-C Work Phone: [facility] 07-03-2024 13:41-0500 Diastolic blood pressure 60 mm[Hg] Josemanuel Clutter PA-C Work Phone: [facility] 07-03-2024 13:41-0500 Heart rate 84 /min Josemanuel Clutter PA-C Work Phone: [facility] 07-03-2024 13:41-0500 Respiratory rate 16 /min Josemanuel Clutter PA-C Work Phone: [facility] 07-03-2024 13:41-0500 SaO2% (BldA) [Mass fraction] 97 % Josemanuel Clutter PA-C Work Phone: [facility] 07-03-2024 13:41-0500 Systolic blood pressure 90 mm[Hg] Josemanuel Clutter PA-C Work Phone: [facility] 04-03-2024 13:05-0400 Body mass index (BMI) [Ratio] 18.94 kg/m2 Pina Wilson PA-C Work Phone: [facility] 04-03-2024 13:05-0400 Body temperature 97.81 [degF] Pina Wilson PA-C Work Phone: [facility] 04-03-2024 13:05-0400 Body weight 44 kg Pina Wilson PA-C Work Phone: [facility] 04-03-2024 13:05-0400 Diastolic blood pressure 70 mm[Hg] Pina Wilson PA-C Work Phone: [facility] 04-03-2024 13:05-0400 Heart rate 58 /min Pina Wilson PA-C Work Phone: [facility] 04-03-2024 13:05-0400 Respiratory rate 16 /min Pina Wilson PA-C Work Phone: [facility] 04-03-2024 13:05-0400 SaO2% (BldA) [Mass fraction] 99 % Pina Wilson PA-C Work Phone: [facility] 04-03-2024 13:05-0400 Systolic blood pressure 110 mm[Hg] Pina Wilson PA-C Work Phone: [facility] 10-30-2023 10:52-0400 Body mass index (BMI) [Ratio] 16.99 kg/m2 Jamari Zhang DO Work Phone: [facility] 10-30-2023 10:52-0400 Body temperature 97 [degF] Jamari Zhang DO Work Phone: [facility] 10-30-2023 10:52-0400 Body weight 39.46 kg Jamari Zhang DO Work Phone: [facility] 10-30-2023 10:52-0400 Diastolic blood pressure 60 mm[Hg] Jamari Zhang DO Work Phone: [facility] 10-30-2023 10:52-0400 Heart rate 64 /min Jamari Zhang DO Work Phone: [facility] 10-30-2023 10:52-0400 Respiratory rate 16 /min Jamari Zhang DO Work Phone: [facility] 10-30-2023 10:52-0400 Systolic blood pressure 100 mm[Hg] Jamari Zhang DO Work Phone: [facility] 09-05-2023 09:02-0400 Body temperature 98.91 [degF] Yaneth Davenport Work Phone: [facility] 09-05-2023 09:02-0400 Body weight 39.24 kg Yaneth Davenport Work Phone: [facility] 09-05-2023 09:02-0400 Diastolic blood pressure 68 mm[Hg] Yaneth Davenport Work Phone: [facility] 09-05-2023 09:02-0400 Heart rate 63 /min Yaneth Davenport Work Phone: [facility] 09-05-2023 09:02-0400 SaO2% (BldA) [Mass fraction] 98 % Yaneth Davenport Work Phone: [facility] 09-05-2023 09:02-0400 Systolic blood pressure 96 mm[Hg] Yaneth Davenport Work Phone: 0(568)742-594884 [place] [address] 08-21-2023 16:45-0400 Body temperature 97.8 [degF] Dr. Jamari Zhang Work Phone: [facility] 08-21-2023 16:45-0400 Diastolic blood pressure 60 mm[Hg] Dr. Jamair Zhang Work Phone: 1(829)158-313230 [place] [address] 08-21-2023 16:45-0400 Heart rate 55 /min Dr. Jamari Zhang Work Phone: 7(130)761-387530 [place] [address] 08-21-2023 16:45-0400 Respiratory rate 18 /min Dr. Jamari Zhang Work Phone: 4(996)517-494530 [place] [address] 08-21-2023 16:45-0400 SaO2% (BldA) [Mass fraction] 100 % Dr. Jamari Zhang Work Phone: 0(414)851-101330 [place] [address] 08-21-2023 16:45-0400 Systolic blood pressure 90 mm[Hg] Dr. Jamari Zhang Work Phone: 2(538)167-528730 [place] [address] 08-21-2023 10:20-0400 Body height 154.[address] Jamari Zhang Work Phone: 8(829)174-768830 [place] [address] 08-21-2023 10:20-0400 Body mass index (BMI) [Ratio] 16.2 kg/m2 Dr. Jamari Zhang Work Phone: 6(413)740-426430 [place] [address] 08-21-2023 10:20-0400 Body weight [address] Jamari Zhang Work Phone: 1(621)036-839430 [place] [address] 08-17-2023 23:00-0500 Diastolic blood pressure 68 mm[Hg] Dr. Jamari Zhang Work Phone: 3(189)948-525030 [place] [address] 08-17-2023 23:00-0500 Heart rate 94 /min Dr. Jamari Zhang Work Phone: 9(190)156-079979 [place] [address] 08-17-2023 23:00-0500 Respiratory rate 16 /min Dr. Jamari Zhang Work Phone: [facility] 08-17-2023 23:00-0500 SaO2% (BldA) [Mass fraction] 96 % Dr. Jamari Zhang Work Phone: [facility] 08-17-2023 23:00-0500 Systolic blood pressure 98 mm[Hg] Dr. Jamari Zhang Work Phone: [facility] 08-17-2023 21:44-0500 Body temperature 99.1 [degF] Dr. Jamari Zhang Work Phone: 0(522)071-578330 [place] [address] 08-17-2023 16:59-0500 Body height 154.[address] Jamari Zhang Work Phone: 9(813)142-464830 [place] [address] 08-17-2023 16:59-0500 Body mass index (BMI) [Ratio] 16.2 kg/m2 Dr. Jamari Zhang Work Phone: 7(161)738-482479 [place] [address] 08-17-2023 16:59-0500 Body weight [address] Jamari Zhang Work Phone: [facility] 08-11-2023 13:08-0500 Body temperature 97.7 [degF] Treatment Wstr Work Phone: [facility] 08-11-2023 13:08-0500 Diastolic blood pressure 60 mm[Hg] Treatment Wstr Work Phone: [facility] 08-11-2023 13:08-0500 Heart rate 82 /min Treatment Wstr Work Phone: [facility] 08-11-2023 13:08-0500 Respiratory rate 16 /min Treatment Wstr Work Phone: [facility] 08-11-2023 13:08-0500 SaO2% (BldA) [Mass fraction] 100 % Treatment Wstr Work Phone: [facility] 08-11-2023 13:08-0500 Systolic blood pressure 88 mm[Hg] Treatment Wstr Work Phone: [facility] 08-09-2023 10:41-0500 Body temperature 97.9 [degF] Treatment Wstr Work Phone: [facility] 08-09-2023 10:41-0500 Diastolic blood pressure 67 mm[Hg] Treatment Wstr Work Phone: [facility] 08-09-2023 10:41-0500 Heart rate 97 /min Treatment Wstr Work Phone: [facility] 08-09-2023 10:41-0500 SaO2% (BldA) [Mass fraction] 100 % Treatment Wstr Work Phone: [facility] 08-09-2023 10:41-0500 Systolic blood pressure 97 mm[Hg] Treatment Wstr Work Phone: [facility] 08-08-2023 10:46-0500 Body mass index (BMI) [Ratio] 16.1 kg/m2 Dr. Jamari Zhang Work Phone: [facility] 08-08-2023 10:46-0500 Body weight 38.[address] Jamari Zhang Work Phone: 1(989)297-766979 [place] [address] 08-08-2023 10:46-0500 Diastolic blood pressure 59 mm[Hg] Dr. Jamari Zhang Work Phone: [facility] 08-08-2023 10:46-0500 Heart rate 73 /min Dr. Jamari Zhnag Work Phone: [facility] 08-08-2023 10:46-0500 Respiratory rate 18 /min Dr. Jamari Zhang Work Phone: [facility] 08-08-2023 10:46-0500 Systolic blood pressure 85 mm[Hg] Dr. Jamari Zhang Work Phone: [facility] 08-03-2023 10:34-0500 Body temperature 99.1 [degF] Treatment Wstr Work Phone: [facility] 08-03-2023 10:34-0500 Diastolic blood pressure 67 mm[Hg] Treatment Wstr Work Phone: [facility] 08-03-2023 10:34-0500 Heart rate 86 /min Treatment Wstr Work Phone: [facility] 08-03-2023 10:34-0500 Respiratory rate 16 /min Treatment Wstr Work Phone: [facility] 08-03-2023 10:34-0500 Systolic blood pressure 103 mm[Hg] Treatment Wstr Work Phone: [facility] 08-01-2023 10:27-0500 Body temperature 98.6 [degF] Treatment Wstr Work Phone: [facility] 08-01-2023 10:27-0500 Diastolic blood pressure 67 mm[Hg] Treatment Wstr Work Phone: [facility] 08-01-2023 10:27-0500 Heart rate 72 /min Treatment Wstr Work Phone: [facility] 08-01-2023 10:27-0500 SaO2% (BldA) [Mass fraction] 100 % Treatment Wstr Work Phone: [facility] 08-01-2023 10:27-0500 Systolic blood pressure 99 mm[Hg] Treatment Wstr Work Phone: [facility] 07-25-2023 11:03-0500 Body height 152.4 cm Yaneth Davenport Work Phone: [facility] 07-25-2023 11:01-0500 Body temperature 98.49 [degF] Yaneth Davenport Work Phone: [facility] 07-25-2023 11:01-0500 Body weight 37.65 kg Yaneth Davenport Work Phone: [facility] 07-25-2023 11:01-0500 Diastolic blood pressure 62 mm[Hg] Yaneth Davenport Work Phone: [facility] 07-25-2023 11:01-0500 Heart rate 38 /min Yaneth Davenport Work Phone: [facility] 07-25-2023 11:01-0500 Respiratory rate 16 /min Yaneth Davenport Work Phone: [facility] 07-25-2023 11:01-0500 SaO2% (BldA) [Mass fraction] 99 % Yaneth Davenport Work Phone: [facility] 07-25-2023 11:01-0500 Systolic blood pressure 89 mm[Hg] Yaneth Davenport Work Phone: [facility] 07-21-2023 13:40-0500 Body temperature 99.61 [degF] Marlyn Estrada BOTTLING MACHINE OPERATOR.SEAMER OPERATOR Work Phone: [facility] 07-21-2023 13:40-0500 Body weight 37.29 kg Marlyn Estrada BOTTLING MACHINE OPERATOR.SEAMER OPERATOR Work Phone: [facility] 07-21-2023 13:40-0500 Diastolic blood pressure 60 mm[Hg] Marlyn Estrada BOTTLING MACHINE OPERATOR.SEAMER OPERATOR Work Phone: [facility] 07-21-2023 13:40-0500 Heart rate 73 /min Marlyn Estrada BOTTLING MACHINE OPERATOR.SEAMER OPERATOR Work Phone: [facility] 07-21-2023 13:40-0500 Respiratory rate 14 /min Marlyn Estrada BOTTLING MACHINE OPERATOR.SEAMER OPERATOR Work Phone: [facility] 07-21-2023 13:40-0500 SaO2% (BldA) [Mass fraction] 96 % Marlyn Estrada BOTTLING MACHINE OPERATOR.SEAMER OPERATOR Work Phone: [facility] 07-21-2023 13:40-0500 Systolic blood pressure 89 mm[Hg] Marlyn Estrada BOTTLING MACHINE OPERATOR.SEAMER OPERATOR Work Phone: [facility] 07-18-2023 08:54-0500 Heart rate 81 /min Dr. Jamari Zhang Work Phone: [facility] 07-18-2023 08:51-0500 Body temperature 98.1 [degF] Dr. Jamari Zhang Work Phone: [facility] 07-18-2023 08:51-0500 Diastolic blood pressure 71 mm[Hg] Dr. Jamari Zhang Work Phone: [facility] 07-18-2023 08:51-0500 Respiratory rate 18 /min Dr. Jamari Zhang Work Phone: [facility] 07-18-2023 08:51-0500 SaO2% (BldA) [Mass fraction] 99 % Dr. Jamari Zhang Work Phone: [facility] 07-18-2023 08:51-0500 Systolic blood pressure 97 mm[Hg] Dr. Jamari Zhang Work Phone: [facility] 07-18-2023 03:08-0500 Body mass index (BMI) [Ratio] 15.9 kg/m2 Dr. Jamari Zhang Work Phone: [facility] 07-18-2023 03:08-0500 Body weight 38.[address] Jamari Zhang Work Phone: [facility] 07-16-2023 22:09-0500 Body temperature 97.7 [degF] [facility] 07-16-2023 22:09-0500 Diastolic blood pressure 72 mm[Hg] [facility] 07-16-2023 22:09-0500 Heart rate 78 /min [facility] 07-16-2023 22:09-0500 Respiratory rate 18 /min [facility] 07-16-2023 22:09-0500 SaO2% (BldA) [Mass fraction] 98 % [facility] 07-16-2023 22:09-0500 Systolic blood pressure 103 mm[Hg] [facility] 07-16-2023 16:29-0500 Body height 154.94 cm [facility] 07-16-2023 16:29-0500 Body mass index (BMI) [Ratio] 16.2 kg/m2 [facility] 07-16-2023 16:29-0500 Body weight 39 kg [facility] 07-13-2023 09:01-0500 Body mass index (BMI) [Ratio] 16.6 kg/m2 [facility] 07-13-2023 09:01-0500 Body temperature 98 [degF] [facility] 07-13-2023 09:01-0500 Body weight 40 kg [facility] 07-13-2023 09:01-0500 Diastolic blood pressure 68 mm[Hg] [facility] 07-13-2023 09:01-0500 Heart rate 86 /min [facility] 07-13-2023 09:01-0500 Respiratory rate 18 /min [facility] 07-13-2023 09:01-0500 Systolic blood pressure 97 mm[Hg] [facility] 05-06-2023 10:58-0500 Body temperature 98.29 [degF] Sylvester Garay BOTTLING MACHINE OPERATOR.SEAMER OPERATOR Work Phone: [facility] 05-06-2023 10:58-0500 Body weight 38.92 kg Sylvester Garay BOTTLING MACHINE OPERATOR.SEAMER OPERATOR Work Phone: [facility] 05-06-2023 10:58-0500 Diastolic blood pressure 75 mm[Hg] Sylvester Jarrod BOTTLING MACHINE OPERATOR.SEAMER OPERATOR Work Phone: [facility] 05-06-2023 10:58-0500 Heart rate 79 /min Sylvester Jarrod BOTTLING MACHINE OPERATOR.SEAMER OPERATOR Work Phone: [facility] 05-06-2023 10:58-0500 Respiratory rate 20 /min Sylvester Garay BOTTLING MACHINE OPERATOR.SEAMER OPERATOR Work Phone: [facility] 05-06-2023 10:58-0500 SaO2% (BldA) [Mass fraction] 100 % Sylvester Jarrod BOTTLING MACHINE OPERATOR.SEAMER OPERATOR Work Phone: [facility] 05-06-2023 10:58-0500 Systolic blood pressure 109 mm[Hg] Sylvester Jarrod BOTTLING MACHINE OPERATOR.SEAMER OPERATOR Work Phone: [facility] 05-01-2023 11:41-0500 Body weight 38.83 kg Marlyn Estrada BOTTLING MACHINE OPERATOR.SEAMER OPERATOR Work Phone: [facility] 05-01-2023 11:41-0500 Diastolic blood pressure 60 mm[Hg] Marlyn Estrada BOTTLING MACHINE OPERATOR.SEAMER OPERATOR Work Phone: [facility] 05-01-2023 11:41-0500 Heart rate 104 /min Marlyn Estrada BOTTLING MACHINE OPERATOR.SEAMER OPERATOR Work Phone: [facility] 05-01-2023 11:41-0500 Respiratory rate 16 /min Marlyn Estrada BOTTLING MACHINE OPERATOR.SEAMER OPERATOR Work Phone: [facility] 05-01-2023 11:41-0500 SaO2% (BldA) [Mass fraction] 96 % Marlyn Estrada BOTTLING MACHINE OPERATOR.SEAMER OPERATOR Work Phone: [facility] 05-01-2023 11:41-0500 Systolic blood pressure 100 mm[Hg] Marlyn Estrada BOTTLING MACHINE OPERATOR.SEAMER OPERATOR Work Phone: [facility] 03-03-2023 18:28-0400 Body temperature 98.1 [degF] Cris Athy PA-C Work Phone: [facility] 03-03-2023 18:28-0400 Body weight 39.28 kg Cris Athy PA-C Work Phone: [facility] 03-03-2023 18:28-0400 Diastolic blood pressure 76 mm[Hg] Cris Athy PA-C Work Phone: [facility] 03-03-2023 18:28-0400 Heart rate 68 /min Cris Athy PA-C Work Phone: [facility] 03-03-2023 18:28-0400 Respiratory rate 18 /min Cris Athy PA-C Work Phone: [facility] 03-03-2023 18:28-0400 SaO2% (BldA) [Mass fraction] 100 % Cris Athy PA-C Work Phone: [facility] 03-03-2023 18:28-0400 Systolic blood pressure 110 mm[Hg] Cris Athy PA-C Work Phone: [facility] 02-06-2023 18:50-0400 Body height 154.94 cm [facility] 02-06-2023 18:50-0400 Body temperature 96.8 [degF] [facility] 02-06-2023 18:50-0400 Diastolic blood pressure 78 mm[Hg] [facility] 02-06-2023 18:50-0400 Heart rate 70 /min [facility] 02-06-2023 18:50-0400 Respiratory rate 14 /min [facility] 02-06-2023 18:50-0400 SaO2% (BldA) [Mass fraction] 98 % [facility] 02-06-2023 18:50-0400 Systolic blood pressure 102 mm[Hg] [facility] 03-28-2022 13:42-0400 Body temperature 97.7 [degF] Michelle Alize BOTTLING MACHINE OPERATOR.SEAMER OPERATOR Work Phone: [facility] 03-28-2022 13:42-0400 Body weight 38.83 kg Michelle Alize BOTTLING MACHINE OPERATOR.SEAMER OPERATOR Work Phone: [facility] 03-28-2022 13:42-0400 Diastolic blood pressure 64 mm[Hg] Michelle Alize BOTTLING MACHINE OPERATOR.SEAMER OPERATOR Work Phone: [facility] 03-28-2022 13:42-0400 Heart rate 102 /min Michelle Alize BOTTLING MACHINE OPERATOR.SEAMER OPERATOR Work Phone: [facility] 03-28-2022 13:42-0400 Respiratory rate 16 /min Michelle Alize BOTTLING MACHINE OPERATOR.SEAMER OPERATOR Work Phone: [facility] 03-28-2022 13:42-0400 SaO2% (BldA) [Mass fraction] 98 % Michelle Alize BOTTLING MACHINE OPERATOR.SEAMER OPERATOR Work Phone: [facility] 03-28-2022 13:42-0400 Systolic blood pressure 102 mm[Hg] Michelle Alize BOTTLING MACHINE OPERATOR.SEAMER OPERATOR Work Phone: [facility] 03-08-2022 11:39-0400 Body height 154.94 cm [facility] Work Phone: 03-08-2022 11:39-0400 Body mass index (BMI) [Ratio] 16 kg/m2 [facility] Work Phone: 03-08-2022 11:39-0400 Body temperature 98.2 [degF] [facility] Work Phone: 03-08-2022 11:39-0400 Body weight 38.6 kg [facility] Work Phone: 03-08-2022 11:39-0400 Diastolic blood pressure 74 mm[Hg] [facility] Work Phone: 03-08-2022 11:39-0400 Heart rate 82 /min [facility] Work Phone: 03-08-2022 11:39-0400 Respiratory rate 14 /min [facility] Work Phone: 03-08-2022 11:39-0400 SaO2% (BldA) [Mass fraction] 100 % [facility] Work Phone: 03-08-2022 11:39-0400 Systolic blood pressure 97 mm[Hg] [facility] Work Phone: 03-02-2022 22:49-0400 Diastolic blood pressure 62 mm[Hg] [facility] Work Phone: 03-02-2022 22:49-0400 Systolic blood pressure 107 mm[Hg] [facility] Work Phone: 03-02-2022 16:36-0400 Body height 154.94 cm [facility] Work Phone: 03-02-2022 16:36-0400 Body mass index (BMI) [Ratio] 16.2 kg/m2 [facility] Work Phone: 03-02-2022 16:36-0400 Body temperature 97.3 [degF] [facility] Work Phone: 03-02-2022 16:36-0400 Body weight 39 kg [facility] Work Phone: 03-02-2022 16:36-0400 Heart rate 88 /min [facility] Work Phone: 03-02-2022 16:36-0400 Respiratory rate 16 /min [facility] Work Phone: 03-02-2022 16:36-0400 SaO2% (BldA) [Mass fraction] 100 % [facility] Work Phone: 09-06-2021 13:24-0400 Body height 157 cm Marlyn Zurawick BOTTLING MACHINE OPERATOR.SEAMER OPERATOR Work Phone: [facility] 09-06-2021 13:24-0400 Body temperature 99.19 [degF] Marlyn Zurawick BOTTLING MACHINE OPERATOR.SEAMER OPERATOR Work Phone: [facility] 09-06-2021 13:24-0400 Body weight 37.7 kg Marlyn Zurawick BOTTLING MACHINE OPERATOR.SEAMER OPERATOR Work Phone: [facility] 09-06-2021 13:24-0400 Diastolic blood pressure 62 mm[Hg] Marlyn Zurawick BOTTLING MACHINE OPERATOR.SEAMER OPERATOR Work Phone: [facility] 09-06-2021 13:24-0400 Heart rate 73 /min Marlyn Zurawick BOTTLING MACHINE OPERATOR.SEAMER OPERATOR Work Phone: [facility] 09-06-2021 13:24-0400 SaO2% (BldA) [Mass fraction] 100 % Marlyn Zurawick BOTTLING MACHINE OPERATOR.SEAMER OPERATOR Work Phone: [facility] 09-06-2021 13:24-0400 Systolic blood pressure 90 mm[Hg] Marlyn Zurawick BOTTLING MACHINE OPERATOR.SEAMER OPERATOR Work Phone: [facility] Encounters Encounter Date Encounter Type Care Provider Facility Start: 12-20-2024 ambulatory Zenia NUNES Facility:[facility] Start: 12-05-2024 End: 12-11-2024 Follow-up encounter Pina Wilson PA-C Work Phone: [facility] Start: 12-04-2024 End: 12-04-2024 ambulatory PINA WILSON Facility:[facility] Start: 12-04-2024 End: 12-04-2024 Patient encounter procedure Pina Wilson PA-C Work Phone: [facility] Comment on above: Severe episode of re [...] Start: 12-04-2024 End: 12-04-2024 ambulatory PINA WILSON Facility:[facility] Start: 09-20-2024 End: 09-20-2024 Nutrition therapy Yaneth Davenport Work Phone: Hematology/Oncology Comment on above: Iron deficiency anem ia, unspecified iron deficiency anemia type (Primary Dx); Protein-calorie malnutrition, unspecified severity (HCC); Autoimmune gastritis Start: 09-20-2024 End: 09-20-2024 Patient encounter procedure Yaneth Davenport Work Phone: Hematology/Oncology Start: 09-20-2024 End: 09-20-2024 ambulatory JAMARI ZHANG Facility:[facility] Start: 07-31-2024 End: 09-30-2024 Follow-up encounter Kat Peres APRN.CNP Work Phone: [facility] Start: 07-26-2024 End: 07-26-2024 [facility] Work Phone: [facility] Comment on above: History of anemia (P rimary Dx); Iron deficiency anemia, unspecified iron deficiency anemia type Start: 07-25-2024 End: 07-25-2024 ambulatory JAMARI ZHANG Facility:[facility] Start: 07-25-2024 End: 07-25-2024 Subsequent hospital visit by physician Shruthi [facility] Work Phone: [facility] Comment on above: Chronic cough [R05.3 ] Start: 07-24-2024 End: 07-24-2024 ambulatory Treatment Rm 14 [facility] Work Phone: Hematology/Oncology Comment on above: History of anemia (P rimary Dx); Iron deficiency anemia, unspecified iron deficiency anemia type Start: 07-22-2024 End: 07-22-2024 ambulatory Treatment Rm 14 [facility] [employer] Work Phone: Hematology/Oncology Comment on above: Iron deficiency anem ia, unspecified iron deficiency anemia type (Primary Dx); History of anemia Start: 07-18-2024 End: 07-18-2024 ambulatory Treatment Rm 15 [facility] [employer] Work Phone: Hematology/Oncology Comment on above: History of anemia (P rimary Dx); Iron deficiency anemia, unspecified iron deficiency anemia type Start: 07-16-2024 End: 07-16-2024 ambulatory Treatment Rm 16 [facility] [employer] Work Phone: Hematology/Oncology Comment on above: History [...] Telephone encounter Marlyn Estrada APRN.CNP Work Phone: [facility] Comment on above: Results Start: 07-09-2024 End: 07-10-2024 Orders Only Yaneth Davenport Work Phone: Hematology/Oncology Start: 07-08-2024 End: 07-08-2024 Telephone encounter Jamari Zhang DO Work Phone: [address] [place] [address] Comment on above: Appointment Start: 07-08-2024 End: 07-08-2024 Office outpatient visit 25 minutes Marlyn Estrada BOTTLING MACHINE OPERATOR.SEAMER OPERATOR Work Phone: [facility] Comment on above: Chronic cough (Prima ry Dx); Iron deficiency anemia, unspecified iron deficiency anemia type; Underweight; Mild protein-calorie malnutrition (HCC) Start: 07-08-2024 End: 07-08-2024 ambulatory MARLYN ESTRADA Facility:[facility] Start: 07-03-2024 End: 07-03-2024 Emergency department patient visit Jamari Zhang Facility:[facility] Start: 07-03-2024 End: 07-03-2024 ambulatory JAMARI ZHANG Facility:[facility] Start: 07-03-2024 End: 07-03-2024 Office outpatient new 30 minutes Josemanuel Romero PA-C Work Phone: [facility] Comment on above: Sore throat (Primary Dx); Generalized abdominal pain; Acute gastroenteritis Start: 05-22-2024 ambulatory Massiel Espinal Facili ty:[facility] Start: 04-03-2024 End: 04-03-2024 ambulatory SELF Facility:[facility] Start: 04-03-2024 End: 04-03-2024 Patient encounter procedure Pina Wilson PA-C Work Phone: [facility] Comment on above: URI, acute (Primary Dx) Start: 04-01-2024 End: 04-02-2024 Emergency department patient visit Jamari Zhang Facility:[facility] Start: 02-21-2024 End: 02-22-2024 ambulatory Helena Hickey Facility:[facility] Start: 10-31-2023 Telephone encounter Jamari costa DO Work Phone: [facility] Start: 10-30-2023 End: 10-30-2023 Patient encounter procedure Jamari Zhang DO Work Phone: [facility] Comment on above: Acute myocarditis du e [...] Patient encounter procedure Yaneth Ethel Work Phone: [facility] Start: 08-31-2023 Orders Only Yaneth Ethel Work Phone: Hematology/Oncology Comment on above: Iron deficiency anem ia, unspecified iron deficiency anemia type (Primary Dx); History of anemia Start: 08-21-2023 Non-patient / Non-visit Dr. Lisbet Zhang Work Phone: [facility] Work Phone: Start: 08-21-2023 Non-patient / Non-visit Dr. Lisbet Zhang Work Phone: [facility] Start: 08-20-2023 Non-patient / Non-visit Dr. Lisbet Zhang Work Phone: [facility] Start: 08-19-2023 End: 08-21-2023 Evaluation and management of inpatient Dr. Jamari Zhang Work Phone: [facility] Work Phone: Start: 08-19-2023 Non-patient / Non-visit Dr. Lisbet Zhang Work Phone: [facility] Start: 08-19-2023 Non-patient / Non-visit Dr. Lisbet Zhang Work Phone: [facility] Work Phone: Start: 08-19-2023 Non-patient / Non-visit Dr. Lisbet Zhang Work Phone: [facility] Start: 08-19-2023 Non-patient / Non-visit Dr. Lisbet Zhang Work Phone: [facility] Start: 08-18-2023 Non-patient / Non-visit Dr. Lisbet Zhang Work Phone: [facility] Start: 08-18-2023 Non-patient / Non-visit Dr. Lisbet Zhang Work Phone: [facility] Work Phone: Start: 08-17-2023 Evaluation and manag ement of inpatient Dr. Jamari [facility] Work Phone: Start: 08-17-2023 Non-patient / Non-visit Dr. Lisbet Zhang Work Phone: [facility] Work Phone: Start: 08-17-[address] Francisco Zhang Work Phone: [facility] Work Phone: Start: 08-14-2023 Telephone encounter Linda SOFIA Hematology/Oncology Comment on above: Social Work Services Start: 08-11-2023 End: 08-11-2023 ambulatory Treatment Rm 13 [facility] Work Phone: Hematology/Oncology Comment on above: Iron deficiency anem ia, unspecified iron deficiency anemia type (Primary Dx); History of anemia Start: 08-10-2023 Telephone encounter Financial Navigator Lopez Work Phone: Financial Services Comment on above: Benefits Investigati on Start: 08-09-2023 End: 08-09-2023 ambulatory Treatment Rm 13 [facility] Work Phone: Hematology/Oncology Comment on above: Iron deficiency anem ia, unspecified iron deficiency anemia type (Primary Dx); History of anemia Start: 08-08-2023 End: 08-08-[address] Jamari Zhang Work Phone: [facility] Work Phone: Start: 08-03-2023 End: 08-03-2023 ambulatory Treatment 13 [facility] Work Phone: Hematology/Oncology Comment on above: Iron deficiency anem ia, unspecified iron deficiency anemia type (Primary Dx); History of anemia Start: 08-01-2023 End: 08-01-2023 ambulatory Treatment 13 [facility] Work Phone: Hematology/Oncology Comment on above: [...] procedure Yaneth Davenport Work Phone: [facility] Start: 07-24-2023 Telephone encounter Marlyn carroll APRN.SEAMER OPERATOR Work Phone: [facility] [place] Comment on above: Results Start: 07-21-2023 End: 07-21-2023 Subsequent hospital visit by physician Gerri [facility] [place] Work Phone: Radiology Comment on above: Subacute cough [R05. 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 Lisbet Zhang Work Phone: [facility] Start: 07-18-2023 Non-patient / Non-visit Dr. Lisbet Zhang Work Phone: [facility] Work Phone: Start: 07-17-2023 Non-patient / Non-visit Dr. Lisbet Zhang Work Phone: [facility] Start: 07-17-2023 Non-patient / Non-visit Dr. Lisbet Zhang Work Phone: [facility] Work Phone: Start: 07-17-2023 Non-patient / Non-visit Dr. Lisbet Zhang Work Phone: [facility] Start: 07-16-2023 End: 07-18-2023 Evaluation and management of inpatient [facility] Work Phone: Start: 07-13-2023 End: 07-13-2023 Emergency department patient visit [facility] Work Phone: Start: 05-28-2023 End: 05-29-2023 ambulatory JAMARI ZHANG Facility:[facility] Start: 05-06-2023 End: 05-06-2023 Patient encounter procedure Sylvester Garay APRN.SEAMER OPERATOR Work Phone: [facility] Comment on above: Bacterial sinusitis (Primary Dx) Start: 05-03-2023 Telephone encounter Marlyn carroll BOTTLING MACHINE OPERATOR.SEAMER OPERATOR Work Phone: [facility] Start: 05-01-2023 End: 05-01-2023 Patient encounter procedure Marlyn Estrada BOTTLING MACHINE OPERATOR.SEAMER OPERATOR Work Phone: [facility] Comment on above: Iron deficiency anem ia, unspecified iron deficiency anemia type (Primary Dx); Vaginal discharge; Menstrual period late; Acute cough; Anxiety with depression; Fatigue, unspecified type Start: 04-12-2023 Telephone encounter Marlyn carroll BOTTLING MACHINE OPERATOR.SEAMER OPERATOR Work Phone: [facility] Comment on above: Results Start: 03-03-2023 End: 03-03-2023 Patient encounter procedure Cris Rolle PA-C Work Phone: [facility] Comment on above: Sinobronchitis (Prim brianne Dx) Start: 02-06-2023 End: 02-06-2023 [facility] Start: 03-28-2022 End: 03-28-2022 Patient encounter procedure Michelle Herrmann BOTTLING MACHINE OPERATOR.SEAMER OPERATOR Work Phone: [facility] Comment on above: Acute non-recurrent [...] 03-08-2022 End: 03-08-2022 [facility] Start: 03-02-2022 End: 03-02-2022 [facility] Start: 09-08-2021 Telephone encounter Marlyn lamar BOTTLING MACHINE OPERATOR.SEAMER OPERATOR Work Phone: [facility] Comment on above: Results Start: 09-06-2021 End: 09-06-2021 Patient encounter procedure Marlyn Bynum BOTTLING MACHINE OPERATOR.SEAMER OPERATOR Work Phone: [facility] Comment on above: Generalized abdomina l pain (Primary Dx); Cough; Underweight Start: 04-30-2017 End: 04-30-2017 Emergency department patient visit Jamari Zhang Facility:[facility] Procedures Date Procedure Procedure Detail Performing Clinician Start: 07-03-2024 STREP A MOLECULAR (POC) Mercedes Jane BOTTLING MACHINE OPERATOR.SEAMER OPERATOR Work Phone: Start: 10-30-2023 Adult depression scr eening assessment [facility] [place] Work Phone: Start: 08-21-[address] Jamari Zhang Work Phone: Start: 08-18-[address] Jamari Zhang Work Phone: Start: 08-17-2023 Plain chest X-ray Dr. Rima Zhang Work Phone: Start: 07-21-2023 Radiologic exam ches t 2 views Marlyn Estrada BOTTLING MACHINE OPERATOR.SEAMER OPERATOR Work Phone: Start: 07-16-2023 CT angiography of ch est with contrast Start: 07-16-2023 Plain chest X-ray Start: 07-16-[address] Jamari Zhang Work Phone: Start: 07-13-2023 SARS-CoV-2, Influenz a & RSV (PCR) Start: 07-13-2023 Plain chest X-ray Start: 05-01-2023 Urnls dip stick/tabl et rgnt auto w/o microscopy Marlyn Estrada BOTTLING MACHINE OPERATOR.SEAMER OPERATOR Work Phone: Start: 05-01-2023 STREP A MOLECULAR (POC) Marlyn Estrada BOTTLING MACHINE OPERATOR.SEAMER OPERATOR Work Phone: Start: 03-03-2023 STREP A MOLECULAR (POC) Cris Rolle PA-C Work Phone: Start: 02-06-2023 X-ray of both feet Start: 03-14-2022 Radex shoulder compl ete minimum 2 views Tong Mederos MD Work Phone: Start: 03-08-2022 Plain X-ray of clavicle Start: 03-02-2022 Computed tomography of abdomen and pelvis with contrast Start: 09-06-2021 Urnls dip stick/tabl et rgnt auto w/o microscopy Marlynabel Bynum BOTTLING MACHINE OPERATOR.SEAMER OPERATOR Work Phone: Start: 01-27-2021 Adult depression scr eening assessment Marlynabel Bynum BOTTLING MACHINE OPERATOR.SEAMER OPERATOR Work Phone: Urine culture Plan of Treatment Date Care Activity Detail Author Start: 11-27-2029 Urine microalbumin profile [facility] Start: 07-08-2025 Covid-19 Vaccine ( season) Covid-19 Vaccine () [facility] Comment on above: Postponed from 02/11/2024 (Declined at t his time) Start: 03-07-2025 End: 06-06-2025 Thyrotropin [Units/volume] in Serum or Plasma THYROID STIMULATING HORMONE Lab Routine History of thyroid disorder Expected: 03/07/2025, Expires: 06/06/2025 [facility] Comment on above: Expected: 03/07/2025, Expires: Start: 03-07-2025 End: 06-06-2025 Thyroxine (T4) free [Mass/volume] in Serum or Plasma T4 FREE/FREE THYROXINE Lab Routine History of thyroid disorder Expected: 03/07/2025, Expires: 06/06/2025 [facility] Work Phone: Comment on above: Expected: 03/07/2025, Expires: Start: 02-10-2025 Influenza vaccination [facility] Start: 01-08-2025 End: 01-08-2025 Patient encounter procedure 01/08/2025 2:00 PM EDT Office Visit [facility] [place] [address] [place] [id number] [place] Faith BOTTLING MACHINE OPERATOR.SEAMER OPERATOR [address] [place] [address] 4 week f/u [facility] [place] Comment on above: 4 week f/u Start: 12-26-2024 End: 12-26-2024 ambulatory 12/26/2024 10:00 AM EDT Visit (SP) Office Hematology/Oncology [address] [place] [address] Yaneth Davenport [address] [place] [address] [facility]* Hematology/Oncolog y Comment on above: [facility]/E[facility]LY LABS* Start: 12-19-2024 End: 12-19-2024 ambulatory 12/19/2024 11:00 AM EDT Results Only [place] [facility] [address] [place] [address] CBC/IRON STUDIES/B12/MMA [facility] Comment on above: CBC/IRON STUDIES/B12/MMA Start: 12-09-2024 Influenza [facility] Comment on above: Postponed from 02/11/2024 (Declined at t his time) Start: 12-04-2024 End: 03-05-2025 Comprehensive metabolic 2000 panel - Serum or Plasma [facility] Comment on above: Expected: 12/04/2024, Expires: Start: 12-04-2024 End: 03-05-2025 Hemoglobin A1c in Blood [facility] Comment on above: Expected: 12/04/2024, Expires: Start: 12-04-2024 End: 03-05-2025 LIPID PANEL, NONFASTING [facility] Work Phone: Comment on above: Expected: 12/04/2024, Expires: Start: 12-04-2024 End: 03-05-2025 Thyrotropin [Units/volume] in Serum or Plasma [facility] Comment on above: Expected: 12/04/2024, Expires: Start: 12-04-2024 End: 03-05-2025 Thyroxine (T4) free [Mass/volume] in Serum or Plasma [facility] Comment on above: Expected: 12/04/2024, Expires: Start: 10-29-2024 Anxiety Screening Anxiety Screening [facility] Start: 10-29-2024 Depression Screening Depression Screening [facility] Start: 09-20-2024 End: 09-20-2024 ambulatory [place] [facility] Laboratory Comment on above: CBC/IRON STUDIES/B12/MMA [facility]* Start: 09-05-2024 End: 09-05-2024 ambulatory 09/05/2024 10:00 AM EDT Visit (SP) Office Hematology/Oncology [address] [place] [address] Yaneth Davenport [address] [place] [address] OV Hematology/Oncolog y Comment on above: OV Start: 07-26-2024 End: 07-26-2024 ambulatory 07/26/2024 10:00 AM EST Infusion Center Hematology/Oncology [address] [place] [address] 2ND Hematology/Oncolog y Comment on above: 2ND Start: 07-25-2024 End: 07-25-2024 Patient encounter procedure 07/25/2024 9:20 AM EST Appointment Cat Scan [address] [place] [address] Chronic cough [R05.3] [facility] Comment on above: Chronic cough [R05.3] Start: 07-24-2024 End: 07-24-2024 ambulatory 07/24/2024 10:00 AM EST Infusion Center Hematology/Oncology [address] [place] [address] 2ND Hematology/Oncolog y Comment on above: 2ND Start: 07-22-2024 End: 07-22-2024 ambulatory Hematology/Oncolog y Comment on above: 2ND 2NDPRINT NEW OV SC HEDULE Start: 07-18-2024 End: 07-18-2024 ambulatory 07/18/2024 10:30 AM EST Infusion Center Hematology/Oncology [address] [place] [address] 2ND Hematology/Oncolog y Comment on above: 2ND Start: 07-17-2024 End: 07-17-2024 Patient encounter procedure 07/17/2024 10:00 AM EST Appointment Cat Scan [address] [place] [address] Chronic cough [R05.3] [facility] Comment on above: Chronic cough [R05.3] Start: 07-16-2024 End: 07-16-2024 ambulatory 07/16/2024 9:00 AM EST Infusion Center Hematology/Oncology [address] [place] [address] 2ND Hematology/Oncolog y Comment on above: 2ND Start: 07-11-2024 End: 07-11-2024 Follow-up encounter 07/11/2024 10:00 AM EST Visit (SP) Office Hematology/Oncology [address] [place] [address] Yaneth Davenport [address] [place] [address] OV-Referred back from PCP's office, No Showed here follow-up with Elizabeth 10/31/2023 Hematology/Oncolog y Comment on above: OV-Referred back from PCP's office, No S howed here follow-up with Elizabeth 10/31/2023 Start: 07-08-2024 End: 10-07-2024 CBC W Auto Differential panel - Blood [facility] Comment on above: Expected: 07/08/2024, Expires: Start: 07-08-2024 End: 10-07-2024 Comprehensive metabolic 2000 panel - Serum or Plasma [facility] Comment on above: Expected: 07/08/2024, Expires: Start: 07-08-2024 End: 10-07-2024 Ferritin [Mass/volume] in Serum or Plasma [facility] Comment on above: Expected: 07/08/2024, Expires: Start: 07-08-2024 End: 10-07-2024 Iron and Iron binding capacity panel - Serum or Plasma [facility] Comment on above: Expected: 07/08/2024, Expires: Start: 04-10-2024 Covid-19 Vaccine (#1) Covid-19 Vaccine (#1) [facility] Comment on above: Postponed from 02/23/1991 (Declined at t his time) Start: 04-10-2024 Covid-19 Vaccine ( season) Covid-19 Vaccine ( season) [facility] Comment on above: Postponed from 02/10/2023 (Declined at t his time) Start: 02-11-2024 Covid-19 Vaccine ( season) Covid-19 Vaccine () [facility] Start: 02-11-2024 Covid-19 Vaccine () Covid-19 Vaccine () [facility] Start: 02-11-2024 Influenza vaccination [facility] Start: 12-10-2023 Influenza vaccination Influenza Vaccine (#1) [facility] Comment on above: Postponed from 02/10/2023 (Declined at t his time) Start: 11-14-2023 End: 11-14-2023 Patient encounter procedure 11/14/2023 1:20 PM EDT Office Visit OB/Gynecology [address] [place] [id number] Jens Kendrick MD [address] [place] [id number] Annual OB/Gynecology Comment on above: Annual Start: 09-01-2023 End: 12-01-2023 Ascorbate [Mass/volume] in Serum or Plasma VITAMIN C Lab Routine Iron deficiency anemia, unspecified iron deficiency anemia type History of anemia Expected: 09/01/2023, Expires: 12/01/2023 [facility] Work Phone: Comment on above: Expected: 09/01/2023, Expires: Start: 09-01-2023 End: 12-01-2023 CBC W Auto Differential panel - Blood CBC + DIFF Lab STAT Iron deficiency anemia, unspecified iron deficiency anemia type History of anemia Expected: 09/01/2023, Expires: 12/01/2023 [facility] Work Phone: Comment on above: Expected: 09/01/2023, Expires: 4 Start: 09-01-2023 End: 12-01-2023 Ferritin [Mass/volume] in Serum or Plasma FERRITIN BLD Lab Routine Iron deficiency anemia, unspecified iron deficiency anemia type History of anemia Expected: 09/01/2023, Expires: 12/01/2023 [facility] Work Phone: Comment on above: Expected: 09/01/2023, Expires: 4 Start: 09-01-2023 End: 12-01-2023 Iron and Iron binding capacity panel - Serum or Plasma IRON + TIBC Lab Routine Iron deficiency anemia, unspecified iron deficiency anemia type History of anemia Expected: 09/01/2023, Expires: 12/01/2023 [facility] Work Phone: Comment on above: Expected: 09/01/2023, Expires: 4 Start: 08-22-2023 Blood chemistry [facility] Start: 08-21-2023 Patient discharge [facility] Start: 08-20-2023 [facility] Start: 08-19-2023 Admission procedure [facility] Start: 08-19-2023 Antibody to gastric parietal cell measurement [facility] Start: 08-19-2023 Serum immunofixation [facility] Start: 08-19-2023 End: 08-19-2023 [facility] Start: 08-19-2023 Care planning and problem solving actions [facility] Start: 08-19-2023 Vitamin D, 1,25-dihydroxy measurement [facility] Start: 08-18-2023 Referral to gastroenterology service [facility] Start: 08-18-2023 Respiratory secretion precautions [facility] Start: 08-18-2023 [facility] Start: 08-18-2023 Cardiac monitoring [facility] Start: 08-18-2023 Referral to furniture mover [facility] Start: 08-18-2023 [facility] Start: 08-17-2023 Following clinical pathway protocol [facility] Start: 08-17-2023 Assessment of risk of venous thromboembolism [facility] Start: 08-17-2023 Fall prevention [facility] Start: 08-17-2023 Incentive spirometry [facility] Start: 08-17-2023 Inhalation therapy procedure [facility] Start: 08-17-2023 Insertion of catheter into peripheral vein [facility] Start: 08-17-2023 Introduction of urinary catheter [facility] Start: 08-17-2023 Measuring intake and output [facility] Start: 08-17-2023 Oxygen therapy [facility] Start: 08-17-2023 Providing care according to standard [facility] Start: 08-17-2023 Provision of activity privileges [facility] Start: 08-17-2023 Referral to occupational therapist [facility] Start: 08-17-2023 Referral to service [facility] Start: 08-17-2023 Taking nasal swab [facility] Start: 08-17-2023 End: 08-18-2023 [facility] Start: 08-17-2023 Respiratory pathogens DNA and RNA panel - Respiratory specimen by REZA with probe detection [facility] Start: 08-17-2023 Verification routine [facility] Start: 08-17-2023 Admission procedure [facility] Start: 08-06-2023 HPV TESTING HPV TESTING [facility] Start: 08-06-2023 PAP TESTING PAP TESTING [facility] Start: 08-06-2023 Screening for malignant neoplasm of cervix [facility] Start: 07-25-2023 End: 10-24-2023 COPPER BLOOD COPPER BLOOD Lab Routine Iron deficiency anemia, unspecified iron deficiency anemia type Anemia, unspecified type 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 Hospital discharge follow-up Expected: 07/25/2023, Expires: 10/24/2023 [facility] Work Phone: Comment on above: Expected: 07/25/2023, Expires: Start: 07-25-2023 End: 07-25-2024 GLIADIN (DEAMINATED) ABS GLIADIN (DEAMINATED) ABS Lab Routine Iron deficiency anemia, unspecified iron deficiency anemia type Anemia, unspecified type Expected: 07/25/2023, Expires: 07/25/2024 [facility] Work Phone: Comment on above: Expected: 07/25/2023, Expires: 5 Start: 07-25-2023 End: 10-24-2023 Pyridoxine [Mass/volume] in Serum or Plasma VITAMIN B6/PYRIDOXIN Lab Routine Iron deficiency anemia, unspecified iron deficiency anemia type Anemia, unspecified type 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 Hospital discharge follow-up Expected: 07/25/2023, Expires: 10/24/2023 [facility] Work Phone: Comment on above: Expected: 07/25/2023, Expires: 4 Start: 07-25-2023 End: 07-25-2024 Tissue transglutaminase Ab panel - Serum TRANSGLUTAMINASE ABS Lab Routine Iron deficiency anemia, unspecified iron deficiency anemia type Anemia, unspecified type Expected: 07/25/2023, Expires: 07/25/2024 [facility] Work Phone: Comment on above: Expected: 07/25/2023, Expires: 5 Start: 07-25-2023 End: 10-24-2023 VITAMIN B1 (THIAMINE), WHOLE BLOOD VITAMIN B1 (THIAMINE), WHOLE BLOOD Lab Routine Iron deficiency anemia, unspecified iron deficiency anemia type Anemia, unspecified type 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 Hospital discharge follow-up Expected: 07/25/2023, Expires: 10/24/2023 [facility] Work Phone: Comment on above: Expected: 07/25/2023, Expires: 4 Start: 07-25-2023 End: 10-24-2023 VON WILLEBRAND DX PANEL VON WILLEBRAND DX PANEL Lab Routine Iron deficiency anemia, unspecified iron deficiency anemia type Anemia, unspecified type 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 Hospital discharge follow-up Expected: 07/25/2023, Expires: 10/24/2023 [facility] Work Phone: Comment on above: Expected: 07/25/2023, Expires: 4 Start: 07-25-2023 End: 10-24-2023 Zinc [Mass/volume] in Serum or Plasma ZINC BLD Lab Routine Iron deficiency anemia, unspecified iron deficiency anemia type Anemia, unspecified type 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 Hospital discharge follow-up Expected: 07/25/2023, Expires: 10/24/2023 [facility] Work Phone: Comment on above: Expected: 07/25/2023, Expires: Start: 07-18-2023 Patient discharge [facility] Start: 07-17-2023 Thyroid stimulating hormone measurement [facility] Start: 07-17-2023 Troponin I measurement [facility] Start: 07-17-2023 [facility] Start: 07-17-2023 Referral to furniture mover [facility] Start: 07-17-2023 Inhalation therapy procedure [facility] Start: 07-16-2023 Following clinical pathway protocol [facility] Start: 07-16-2023 Ambulation without limitation [facility] Start: 07-16-2023 Assessment of risk of venous thromboembolism [facility] Start: 07-16-2023 Contact precautions [facility] Start: 07-16-2023 Incentive spirometry [facility] Start: 07-16-2023 Insertion of catheter into peripheral vein [facility] Start: 07-16-2023 Measuring intake and output [facility] Start: 07-16-2023 Oxygen therapy [facility] Start: 07-16-2023 Providing care according to standard [facility] Start: 07-16-2023 Respiratory secretion precautions [facility] Start: 07-16-2023 Vitamin B12 measurement [facility] Start: 07-16-2023 [facility] Start: 07-16-2023 Verification routine [facility] Start: 07-16-2023 Admission procedure [facility] Start: 07-13-2023 Emergency department visit high/urgent severity EMERGENCY DEPT VISIT MOD MDM [facility] Start: 07-13-2023 Iadna respiratry probe & rev trnscr 3-5 targets RESP VIRUS 3-5 TARGETS [facility] Start: 07-13-2023 Radiologic exam chest single view X-RAY EXAM CHEST 1 VIEW [facility] Start: 07-13-2023 [facility] Start: 06-12-2023 Depression Assessment Depression Assessment [facility] Start: 05-01-2023 End: 07-31-2023 Choriogonadotropin ( test) [Presence] in Urine HCG QUAL UR Lab Routine Menstrual period late Expected: 05/01/2023, Expires: 07/31/2023 [facility] Work Phone: Comment on above: Expected: 05/01/2023, Expires: 4 Start: 05-01-2023 End: 07-31-2023 Ferritin [Mass/volume] in Serum or Plasma [facility] Work Phone: Comment on above: Expected: 05/01/2023, Expires: 4 Start: 05-01-2023 End: 07-31-2023 Iron and Iron binding capacity panel - Serum or Plasma [facility] Work Phone: Comment on above: Expected: 05/01/2023, Expires: 4 Start: 02-10-2023 Influenza vaccination Influenza Vaccine (#1) [facility] Start: 06-12-2022 Depression Assessment Depression Assessment [facility] Start: 03-02-2022 [facility] Work Phone: Start: 02-10-2022 Influenza vaccination [facility] Start: 01-27-2022 Adult depression screening assessment DEPRESSION SCREENING [facility] Start: 12-09-2021 Influenza vaccination INFLUENZA (#1) [facility] Comment on above: Postponed from 02/10/2021 (Declined at t his time) Start: 09-06-2021 End: 11-06-2021 Comprehensive metabolic 2000 panel - Serum or Plasma [facility] Work Phone: Comment on above: Expected: 09/06/2021, Expires: 2 Start: 09-06-2021 End: 11-06-2021 Helicobacter pylori IgG Ab [Presence] in Serum or Plasma by Immunoassay [facility] Work Phone: Comment on above: Expected: 09/06/2021, Expires: 2 Start: 09-06-2021 End: 11-06-2021 Lipase [Enzymatic activity/volume] in Serum or Plasma [facility] Work Phone: Comment on above: Expected: 09/06/2021, Expires: 2 Start: 06-12-2021 DEPRESSION ASSESSMENT DEPRESSION ASSESSMENT [facility] Start: 08-24-1995 COVID-19 VACCINE (1) COVID-19 VACCINE (1) [facility] Start: 02-23-1991 COVID-19 VACCINE (#1) COVID-19 VACCINE (#1) [facility] Start: 1990 HEPATITIS B (1 of 3 - 3-dose series) HEPATITIS B (1 of 3 - 3-dose series) [facility] Start: 1990 Hepatitis B Vaccine (1 of 3 - 3-dose series) Hepatitis B Vaccine (1 of 3 - 3-dose series) [facility] Alanine aminotransfe rase [Enzymatic activity/volume] in Serum or Plasma [facility] Alanine aminotransfe rase [Enzymatic activity/volume] in Serum or Plasma [facility] Albumin [Mass/volume ] in Serum or Plasma [facility] Albumin [Mass/volume ] in Serum or Plasma [facility] Albumin [Moles/volum e] in Serum or Plasma [facility] Albumin/Globulin ratio [facility] Alkaline phosphatase [Enzymatic activity/volume] in Serum or Plasma [facility] Alkaline phosphatase [Enzymatic activity/volume] in Serum or Plasma [facility] Anion gap measurement [facility] Anion gap measurement [facility] Anion gap measurement [facility] Antibody to lupus La protein measurement [facility] Antibody to SS-A measurement [facility] Aspartate aminotrans ferase [Enzymatic activity/volume] in Serum or Plasma [facility] Aspartate aminotrans ferase [Enzymatic activity/volume] in Serum or Plasma [facility] Bacteria identified in Urine by Culture Urine Culture [facility] Work Phone: Bacteria identified in Urine by Culture URINE CULTURE Microbiology Routine Vaginal discharge 05/01/2023 1:46 PM EST [facility] Work Phone: Beef IgE Ab [Units/v olume] in Serum [facility] Bilirubin, total measurement [facility] Bilirubin, total measurement [facility] BUN/Creatinine ratio [facility] BUN/Creatinine ratio [facility] BUN/Creatinine ratio [facility] Calcium [Mass/volume ] in Serum or Plasma [facility] Calcium [Mass/volume ] in Serum or Plasma [facility] Calcium [Mass/volume ] in Serum or Plasma [facility] Carbon dioxide, tota l [Moles/volume] in Serum or Plasma [facility] Carbon dioxide, tota l [Moles/volume] in Serum or Plasma [facility] Carbon dioxide, tota l [Moles/volume] in Serum or Plasma [facility] Centromere protein B Ab [Units/volume] in Serum [facility] Chloride [Moles/volu me] in Serum or Plasma [facility] Chloride [Moles/volu me] in Serum or Plasma [facility] Chloride [Moles/volu me] in Serum or Plasma [facility] Chocolate IgE Ab [Units/volume] in Serum [facility] Chromatin Ab [Units/ volume] in Serum or Plasma [facility] Codfish IgE Ab [Units/volume] in Serum [facility] COPPER BLOOD COPPER BLOOD Lab Routine Iron deficiency anemia, unspecified iron deficiency anemia type Anemia, unspecified type 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 Hospital discharge follow-up 07/26/2023 10:10 AM [facility] [employer] [facility] [employer] Work Phone: [place] IgE Ab [Units/v olume] in Serum [facility] COVID & INFLUENZA A/ B & RSV NAAT, ROUTINE COVID & INFLUENZA A/B & RSV NAAT, ROUTINE Microbiology Routine Acute cough 05/01/2023 2:19 PM [facility] [place] [facility] [employer] Work Phone: Cow milk IgE Ab [Units/volume] in Serum [facility] Creatinine [Moles/vo lume] in Serum or Plasma [facility] Creatinine [Moles/vo lume] in Serum or Plasma [facility] Creatinine [Moles/vo lume] in Serum or Plasma [facility] End: 08-07-2025 CT Chest WO contrast CT CHEST WO IVCON Radiology Routine Chronic cough 1 Occurrences starting 07/08/2024 until 08/07/2025 [facility] Work Phone: Comment on above: 1 Occurrences starting 07/08/2024 until 08/07/2025 CT Chest WO contrast CT CHEST [facility] Radiology Routine Chronic cough 07/25/2024 9:52 AM EST [facility] Work Phone: DNA double strand Ab [Units/volume] in Serum [facility] Electrophoresis: [id number] [facility] Electrophoresis: tristan ma globulin [facility] ENTERIC BACTERIAL PA ROBBIE BY PCR ENTERIC BACTERIAL PANEL BY PCR Lab Routine Generalized abdominal pain Ordered: 09/06/2021 [facility] Work Phone: Comment on above: Ordered: 09/06/2021 Erythrocyte mean corpuscular volume determination [facility] Erythrocyte mean corpuscular volume determination [facility] Erythrocyte mean corpuscular volume determination [facility] Folate [Mass/volume] in Serum or Plasma [facility] Gastrin [Mass/volume ] in Serum or Plasma [facility] GLIADIN (DEAMINATED) ABS GLIADIN (DEAMINATED) ABS Lab Routine Iron deficiency anemia, unspecified iron deficiency anemia type Anemia, unspecified type 07/26/2023 10:10 AM [employer] [facility] [employer] Work Phone: Gliadin peptide IgA Ab [Units/volume] in Serum [facility] Gliadin peptide IgG Ab [Units/volume] in Serum [facility] Globulin measurement [facility] Glucose [Mass/volume ] in Serum or Plasma [facility] Glucose [Mass/volume ] in Serum or Plasma [facility] Glucose [Mass/volume ] in Serum or Plasma [facility] Helicobacter pylori Ag [Presence] in Stool by Immunoassay H PYLORI [employer] BY EIA,STOOL Microbiology Routine Generalized abdominal pain Ordered: 09/08/2021 [facility] Work Phone: Comment on above: Ordered: 09/08/2021 Hematocrit [Volume Fraction] of Blood [facility] Hematocrit [Volume Fraction] of Blood [facility] Hematocrit [Volume Fraction] of Blood [facility] Hemoglobin [Mass/vol ume] in Blood [facility] Hemoglobin [Mass/vol ume] in Blood [facility] Hemoglobin [Mass/vol ume] in Blood [facility] IgA [Mass/volume] in Serum or Plasma [facility] IgE [Units/volume] i n Serum or Plasma [facility] IgG [Mass/volume] in Serum or Plasma [facility] IgG subclass 1 [Mass/volume] in Serum [facility] IgG subclass 2 [Mass/volume] in Serum [facility] IgG subclass 3 [Mass/volume] in Serum [facility] IgG subclass 4 [Mass/volume] in Serum [facility] IgM [Mass/volume] in Serum or Plasma [facility] Influenza virus A an d B RNA and SARS-CoV-2 (COVID-19) N gene panel - Respiratory specimen by REZA with probe detection COVID WITH FLUA+B, ROUTINE Microbiology Routine Cough 09/06/2021 3:40 PM EDT [facility] Work Phone: Intrinsic factor blo cking Ab [Units/volume] in Serum [facility] Iron [Mass/mass] in Unspecified specimen [facility] Iron and Iron bindin g capacity panel - Serum or Plasma [facility] Iron saturation [Mas s Fraction] in Serum or Plasma [facility] Lisbet-1 extractable nuc lear Ab [Units/volume] in Serum [facility] Leukocytes [#/volume ] in Blood [facility] Leukocytes [#/volume ] in Blood [facility] Leukocytes [#/volume ] in Blood [facility] Magnesium [Mass/volu me] in Serum or Plasma [facility] Magnesium [Mass/volu me] in Serum or Plasma [facility] Mean corpuscular hem oglobin concentration determination [facility] Mean corpuscular hem oglobin concentration determination [facility] Mean corpuscular hem oglobin concentration determination [facility] Mean corpuscular hem oglobin determination [facility] Mean corpuscular hem oglobin determination [facility] Mean corpuscular hem oglobin determination [facility] Measurement of immunoglobulin A in serum specimen [facility] Measurement of renal function [facility] Measurement of renal function [facility] Measurement of renal function [facility] Neutrophil count [facility] Neutrophil count [facility] Neutrophil count [facility] Neutrophil cytoplasm ic Ab.classic [Units/volume] in Serum [facility] Neutrophil percent differential count [facility] Neutrophil percent differential count [facility] Neutrophil percent differential count [facility] P-ANCA measurement [facility] Patient Education [facility] Work Phone: Patient referral [facility] Work Phone: Peanut IgE Ab [Units/volume] in Serum [facility] Platelets [#/volume] in Blood [facility] Platelets [#/volume] in Blood [facility] Platelets [#/volume] in Blood [facility] Pork IgE Ab [Units/v olume] in Serum [facility] Potassium [Moles/vol ume] in Serum or Plasma [facility] Potassium [Moles/vol ume] in Serum or Plasma [facility] Potassium [Moles/vol ume] in Serum or Plasma [facility] Protein electrophore sis panel - Serum or Plasma [facility] Pyridoxine [Mass/vol ume] in Serum or Plasma VITAMIN B6/PYRIDOXIN Lab Routine Iron deficiency anemia, unspecified iron deficiency anemia type Anemia, unspecified type 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 Hospital discharge follow-up 07/26/2023 10:10 AM [facility] [employer] [facility] [employer] Work Phone: Red blood cell count [facility] Red blood cell count [facility] Red blood cell count [facility] Red cell distributio n width determination [facility] Red cell distributio n width determination [facility] Red cell distributio n width determination [facility] [employer] antibody measurement [facility] [place] IgE Ab [Units/volume] in Serum [facility] SCL-70 extractable n uclear Ab [Units/volume] in Serum by Immunoassay [facility] Serum inorganic phos phate measurement [facility] Serum inorganic phos phate measurement [facility] Shrimp IgE Ab [Units/volume] in Serum [facility] Michael extractable nu clear Ab [Presence] in Serum [facility] Sodium [Moles/volume ] in Serum or Plasma [facility] Sodium [Moles/volume ] in Serum or Plasma [facility] Sodium [Moles/volume ] in Serum or Plasma [facility] Soybean IgE Ab [Units/volume] in Serum [facility] Tissue transglutamin ase Ab panel - Serum TRANSGLUTAMINASE ABS Lab Routine Iron deficiency anemia, unspecified iron deficiency anemia type Anemia, unspecified type 07/26/2023 10:10 AM [facility] Work Phone: Tissue transglutamin ase IgA Ab [Units/volume] in Serum [facility] Total protein measurement [facility] Total protein measurement [facility] Tuna IgE Ab [Units/v olume] in Serum [facility] UA DIP, URINE (POC) [facility] [facility] Work Phone: Comment on above: Ordered: 09/06/2021 Urea nitrogen [Mass/ volume] in Serum or Plasma [facility] Urea nitrogen [Mass/ volume] in Serum or Plasma [facility] Urea nitrogen [Mass/ volume] in Serum or Plasma [facility] End: 10-06-2022 Us abdominal real time w/image limited US ABD RT UPPER QUADRANT Radiology Routine Generalized abdominal pain 1 Occurrences starting 09/06/2021 until 10/06/2022 [facility] Work Phone: Comment on above: 1 Occurrences starting 09/06/2021 until 10/06/2022 US Heart [facility] VITAMIN B1 (THIAMINE ), WHOLE BLOOD VITAMIN B1 (THIAMINE), WHOLE BLOOD Lab Routine Iron deficiency anemia, unspecified iron deficiency anemia type Anemia, unspecified type 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 Hospital discharge follow-up 07/26/2023 10:10 AM [facility] Work Phone: VON WILLEBRAND DX PANEL VON WILL EBRAND DX PANEL Lab Routine Iron deficiency anemia, unspecified iron deficiency anemia type Anemia, unspecified type 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 Hospital discharge follow-up 07/26/2023 10:10 AM [facility] Work Phone: Wheat IgE Ab [Units/ volume] in Serum [facility] Whole Egg IgE Ab [Units/volume] in Serum [facility] Zinc [Mass/volume] i n Serum or Plasma ZINC BLD Lab Routine Iron deficiency anemia, unspecified iron deficiency anemia type Anemia, unspecified type 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 Hospital discharge follow-up 07/26/2023 10:10 AM [facility] Work Phone: [facility] Immunizations Immunization Date Immunization Notes Care Provider Ivelisse galvan 11-28-2019 tetanus toxoid, redu binu diphtheria toxoid, and acellular pertussis vaccine, adsorbed Marlyn Zurawick [employer]OTTLING MACHINE OPERATOR[employer]SEAMER OPERATOR Work Phone: [facility] 11-24-2017 tetanus toxoid, redu binu diphtheria toxoid, and acellular pertussis vaccine, adsorbed Marlyn Zurawick BOTTLING MACHINE OPERATOR.SEAMER OPERATOR Work Phone: [facility] 03-22-2017 influenza, injectabl e, quadrivalent, preservative free [facility] 03-22-2017 influenza, seasonal, injectable [facility] 03-22-2017 Seasonal, quadrivale nt, recombinant, injectable influenza vaccine, preservative free Dr. Jamari Zhang Work Phone: [facility] 03-22-2017 influenza virus vacc ine, unspecified formulation Cris Rolle PA-C Work Phone: [facility] 03-09-2016 influenza, injectabl e, quadrivalent, preservative free [facility] 03-09-2016 influenza, seasonal, injectable [facility] 03-09-2016 Seasonal, quadrivale nt, recombinant, injectable influenza vaccine, preservative free Dr. Jamari Zhang Work Phone: [facility] 12-29-2015 tetanus toxoid, redu binu diphtheria toxoid, and acellular pertussis vaccine, adsorbed Marlyn Zurawick BOTTLING MACHINE OPERATOR.SEAMER OPERATOR Work Phone: [facility] Work Phone: 12-24-2013 tetanus toxoid, redu binu diphtheria toxoid, and acellular pertussis vaccine, adsorbed Marlyn Zurawick BOTTLING MACHINE OPERATOR.SEAMER OPERATOR Work Phone: [facility] 05-09-2012 Seasonal, quadrivale nt, recombinant, injectable influenza vaccine, preservative free Dr. Jamari Zhang Work Phone: [facility] 05-01-2009 novel Influenza-H1N1 -09, live virus for nasal administration Dr. Jamari Zhang Work Phone: [facility] 04-09-2009 influenza, injectabl e, quadrivalent, preservative free Dr. Jamari Zhang Work Phone: [facility] 04-09-2009 tetanus toxoid, redu binu diphtheria toxoid, and acellular pertussis vaccine, adsorbed Dr. Jamari Zhang Work Phone: [facility] 06-09-2008 influenza, injectabl e, quadrivalent, preservative free Dr. Jamari Zhang Work Phone: [facility] 03-06-2007 human papilloma viru s vaccine, quadrivalent Dr. Jamari Zhang Work Phone: [facility] 10-30-2006 human papilloma viru s vaccine, quadrivalent Dr. Jamari Zhang Work Phone: [facility] 2006 human papilloma viru s vaccine, quadrivalent Dr. Jamari Zhang Work Phone: [facility] 2006 meningococcal polysaccharide (groups A, C, Y and W-135) diphtheria toxoid conjugate vaccine (MCV4P) Dr. Jamari Zhang Work Phone: [facility] 08-04-2003 hepatitis B vaccine, pediatric or pediatric/adolescent dosage Dr. Jamari Zhang Work Phone: [facility] 02-03-2003 hepatitis B vaccine, pediatric or pediatric/adolescent dosage Dr. Jamari Zhang Work Phone: [facility] 01-06-2003 hepatitis B vaccine, pediatric or pediatric/adolescent dosage Dr. Jamari Zhang Work Phone: [facility] 01-06-2003 TD(adult) unspecifie d formulation Dr. Jamari Zhang Work Phone: [facility] 12-27-1995 diphtheria, tetanus toxoids and acellular pertussis vaccine Dr. Jamari Zhang Work Phone: [facility] 12-27-1995 diphtheria, tetanus toxoids and acellular pertussis vaccine, unspecified formulation Pina Wilson PA-C Work Phone: [facility] 12-27-1995 measles, mumps and rubella virus vaccine Dr. Jamari Zhang Work Phone: [facility] 12-27-1995 trivalent poliovirus vaccine, live, oral Dr. Jamari Zhang Work Phone: [facility] 04-06-1993 diphtheria, tetanus toxoids and acellular pertussis vaccine Dr. Jamari Zhang Work Phone: [facility] 04-06-1993 diphtheria, tetanus toxoids and acellular pertussis vaccine, unspecified formulation Pina Wilson PA-C Work Phone: [facility] 04-06-1992 diphtheria, tetanus toxoids and acellular pertussis vaccine Dr. Jamari Zhang Work Phone: [facility] 04-06-1992 diphtheria, tetanus toxoids and acellular pertussis vaccine, unspecified formulation Pina Wilson PA-C Work Phone: [facility] 04-06-1992 poliovirus vaccine, inactivated Dr. Jamari Zhang Work Phone: [facility] 01-08-1992 haemophilus influenz ae type b vaccine, PRP-T conjugate Dr. Jamari Zhang Work Phone: [facility] 01-08-1992 measles, mumps and rubella virus vaccine Dr. Jamari Zhang Work Phone: [facility] 08-28-1991 diphtheria, tetanus toxoids and acellular pertussis vaccine Dr. Jamari Zhang Work Phone: [facility] 08-28-1991 diphtheria, tetanus toxoids and acellular pertussis vaccine, unspecified formulation Pina Wilson PA-C Work Phone: [facility] 08-28-1991 haemophilus influenz ae type b vaccine, PRP-T conjugate Dr. Jamari Zhang Work Phone: [facility] 04-17-1991 diphtheria, tetanus toxoids and acellular pertussis vaccine Dr. Jamari Zhang Work Phone: [facility] 04-17-1991 diphtheria, tetanus toxoids and acellular pertussis vaccine, unspecified formulation Pina Wilson PA-C Work Phone: [facility] 04-17-1991 haemophilus influenz ae type b vaccine, PRP-T conjugate Dr. Jamari Zhang Work Phone: [facility] 04-17-1991 poliovirus vaccine, inactivated Dr. Jamari Zhang Work Phone: [facility] 1990 diphtheria, tetanus toxoids and acellular pertussis vaccine Dr. Jamari Zhang Work Phone: [facility] 1990 diphtheria, tetanus toxoids and acellular pertussis vaccine, unspecified formulation Pina Wilson PA-C Work Phone: [facility] 1990 haemophilus influenz ae type b vaccine, PRP-T conjugate Dr. Jamari Zhang Work Phone: [facility] 1990 poliovirus vaccine, inactivated Dr. Jamari Zhang Work Phone: [facility] Payers Date Payer Category Payer Self-pay [id number] 2022 Unknown [id number] 2017 Unknown 2016 Medicaid [employer] [id number] 2016-Present [phone] [address] [place] [address] Medicaid [id number] 2016 Medicaid [id number] Unknown [employer] [id number] Unknown [id number] Unknown [id number] Unknown [id number] Unknown [id number] Unknown [id number] Unknown [id number] Social History Date Type Detail Facility Start: 09-29-2011 End: 03-28-2022 Tobacco smoking status NHIS Never smoked tobacco [facility] Work Phone: Start: 09-29-2011 End: 03-28-2022 Tobacco use and exposure Smokeless tobacco non-user [facility] Work Phone: Start: 09-06-2021 End: 12-04-2024 Alcohol intake Ex-drinker (finding) [facility] Start: 03-23-2020 History SDOH Alcohol Binge 2 [facility] Start: 03-23-2020 History SDOH Financial 4 [facility] Start: 03-23-2020 History SDOH Food Worry 1 [facility] Start: 07-01-2019 Education 13 [facility] Start: 1990 Sex Assigned At Not on file [facility] Start: 08-27-2021 End: 03-28-2022 Exposure to SARS-CoV-2 (event) Not sure [facility] Start: 03-02-2022 End: 08-17-2023 Tobacco smoking status NHIS Unknown if ever smoked [facility] Start: 02-17-2020 None [facility] Start: 1990 Sex Assigned At Female [facility] Start: 03-23-2020 End: 04-10-2023 History of Social function [facility] Start: 03-23-2020 End: 04-10-2023 Alcohol Use Disorder Identification Test - Consumption [AUDIT-C] [facility] Frequency of Alcohol Consumption Not on file [facility] How often do you hav e 6 or more drinks on 1 occasion? Less than monthly [facility] How hard is it for y ou to pay for the very basics like food, housing, medical care, and heating Not very hard [facility] (I/We) worried luiz er (my/our) food would run out before (I/we) got money to buy more. Never true [facility] NEGATED: Highlighted row [facility] Medical Equipment Procedure Code Equipment Code Equipment [...] Facility 08-21-2023 Functional status Ambulates;Bath room Privilege [facility] Work Phone: 07-18-2023 Functional status Activity Abili ty Independent [facility] Work Phone: 07-04-2014 Are you deaf, or do you have serious difficulty hearing No 07/04/2014 9:24 AM Reyna Pérez LPN No [facility] 07-04-2014 Are you blind, or do you have serious difficulty seeing, even when wearing glasses No 07/04/2014 9:24 AM Reyna Pérez LPN No [facility] 07-04-2014 Do you have serious difficulty walking or climbing stairs No 07/04/2014 9:24 AM Reyna Pérez LPN No [facility] 07-04-2014 Do you have difficul ty dressing or bathing No 07/04/2014 9:24 AM Reyna Pérez LPN No [facility] 07-04-2014 Because of a physica l, mental, or emotional condition, do you have difficulty doing errands alone such as visiting a physician's office or shopping No 07/04/2014 9:24 AM Reyna Pérez LPN No [facility] Mental Status Date Assessment Result Facility 08-21-2023 Cognitive function Voice/Name [facility] Work Phone: 08-17-2023 Cognitive function Level Of Cons ciousness Awake;Alert;Appropriate;Fol lows Commands [facility] Work Phone: 07-18-2023 Cognitive function Voice/Name [facility] Work Phone: 07-16-2023 Cognitive function Level Of Cons ciousness Awake;Alert;Appropriate;Fol lows Commands [facility] Work Phone: 07-13-2023 Cognitive function Level Of Cons ciousness Awake;Alert;Appropriate;Fol lows Commands [facility] Work Phone: 07-04-2014 Because of a physica l, mental, or emotional condition, do you have serious difficulty concentrating, remembering, or making decisions No 07/04/2014 9:24 AM EST Reyna Hernandez LPN No [facility] Clinical Notes 01-02-2020 to 12-11-2024 Telephone Encounter - Reyna Hernandez LPN - 12/11/2024 12:22 PM EDTTelephone Encounter - Reyna Hernandez LPN - 12/11/2024 12:22 PM EDTRPina shafer PA-C - 12/04/2024 12:43 PM EDT Note Date & Type Note Facility 12-11-2024 Telephone encounter Note Patient notified of results and provider's instructions. Patient verbalizes understanding. Reyna Hernandez LPN [facility] 12-11-2024 Miscellaneous Notes Patient notified of results and provider's instructions. Patient verbalizes understanding. Reyna Hernandez LPN Left message for pt to contact office. Reyna Hernandez LPN Overall labs are normal. Her one thyroid hormone is slightly low but her TSH is in normal range. Monitor this with repeat in 3 months. Order placed. Pina Wilson PA-C documented in this encounter [facility] 12-05-2024 Telephone encounter Note Left message for pt to contact office. Reyna Hernandez LPN [facility] 12-05-2024 Telephone encounter Note Overall labs are normal. Her one thyroid hormone is slightly low but her TSH is in normal range. Monitor this with repeat in 3 months. Order placed. Pina Wilson PA-C [facility] 12-04-2024 Note HNO ID: [id number] Author: PINA WILSON PA-C Service: ? Author Type: Physician Test Specialist Type: Progress Notes Filed: 12/04/2024 13:15 Note [...] no adenopathy; thyroid (more content not included)... [facility] 12-04-2024 History of Present illness Narrative Chief [...] of drowsiness discussed. - Prescriptions sent to [facility] pharmacy. 3. Iron deficiency anemia, unspecified iron [...] further management. Pina Wilson PA-C Recording using [employer] software for draft documentation of the visit was discussed with the patient/authorized admitting representative; all questions welcomed and answered. Patient/authorized admitting representative agreed to proceed documented in this encounter [facility] 09-20-2024 Note HNO ID: [id number] Author: YANETH DAVENPORT, ? Service: ? Author [...] by her PCP following recent admission to [facility] 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 Found to be pancytopenic during admission (result from [facility] scanned in). Counts have since recovered. PCP [...] ligation about 3 years. She follows with TRANSITION ADVISOR. Required IV iron with last 2 pregnancies. [...] She reports tolerating IV iron well overall. [place] better after 2nd infusion. Denies any issues with bleeding or bruising. Periods irregular, no menses in last 6 weeks. Hcg performed at [facility] neg. No SOB, CP. She was admitted to [facility] on 08/19/23 for worsening abdominal pain, N/V. Denies fevers, chills or NS. No recurrent infections. During admission, cardiac meds for cardiomyopathy were discontinued. HR and BP has since stabilized. She notes that HR was dropping down into 30s and she felt very tired. She is currently being worked up by Dr. Callahan at [facility] for GI malabsorptive conditions. EGD and colonoscopy [...] 12/25/2013 Chlamydia 11/2010 (more content not included)... [facility] 09-20-2024 History of Present illness Narrative Hematology [...] by her PCP following recent admission to [facility] 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 Found to be pancytopenic during admission (result from [facility] scanned in). Counts have since recovered. PCP [...] ligation about 3 years. She follows with TRANSITION ADVISOR. Required IV iron with last 2 pregnancies. [...] She reports tolerating IV iron well overall. [place] better after 2nd infusion. Denies any issues with bleeding or bruising. Periods irregular, no menses in last 6 weeks. Hcg performed at [facility] neg. No SOB, CP. She was admitted to [facility] on 08/19/23 for worsening abdominal pain, N/V. Denies fevers, chills or NS. No recurrent infections. During admission, cardiac meds for cardiomyopathy were discontinued. HR and BP has since stabilized. She notes that HR was dropping down into 30s and she felt very tired. She is currently being worked up by Dr. Callahan at [facility] for GI malabsorptive conditions. EGD and colonoscopy [...] Laterality Date COLONOSCOPY SCREENING 08/21/2023 EGD W/O [facility] SPEC VARICIES INJ 08/21/2023 PAST SURGICAL [...] with any questions or concerns. Yaneth Davenport APRN.SEAMER OPERATOR I spent a total of 30 minutes on the date of the service which included preparing to see the patient, [id number] patient care, completing clinical documentation, obtaining and/or [...] of this patient. documented in this encounter [facility] 07-25-2024 History of Present illness Narrative [...] PATIENT PRESENTS WITH AN IMPLANTABLE OR ATTACHED WATERWORKS OPERATOR: No RADIOLOGY DEPARTMENT: CT; Exam(s) Completed: Chest PERIPHERAL IV DATA: Not applicable SIGNED BY: RT Carlo(Nicolasa) July 25, 2024 12:44 PM documented in this encounter [facility] 07-25-2024 Note HNO ID: [id number] Author: ОЛЬГА MUÑOZ RT(R) Service: ? Author Type: Excavator Backhoe Operator Type: Progress Notes Filed: 07/25/2024 12:45 Note [...] PATIENT PRESENTS WITH AN IMPLANTABLE OR ATTACHED WATERWORKS OPERATOR: No RADIOLOGY DEPARTMENT: CT; Exam(s) Completed: Chest PERIPHERAL IV DATA: Not applicable SIGNED BY: RT Carlo(R) July 25, 2024 12:44 PM [facility] 07-18-2024 Telephone encounter Note Changed OV to same day as erik Wallace [facility] 07-18-2024 Miscellaneous Notes Changed OV to same day as erik Wallace Called patient but was unable to lvm due to mailbox is full. Elsi Wallace documented in this encounter [facility] 07-11-2024 Telephone encounter Note Called patient but was unable to lvm due to mailbox is full. Elsi Wallcae [facility] 07-11-2024 Note HNO ID: [id number] Author: YANETH DAVENPORT, ? Service: ? Author [...] by her PCP following recent admission to [facility] 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 Found to be pancytopenic during admission (result from [facility] scanned in). Counts have since recovered. PCP [...] ligation about 3 years. She follows with TRANSITION ADVISOR. Required IV iron with last 2 pregnancies. [...] She reports tolerating IV iron well overall. [place] better after 2nd infusion. Denies any issues with bleeding or bruising. Periods irregular, no menses in last 6 weeks. Hcg performed at [facility] neg. No SOB, CP. She was admitted to [facility] on 08/19/23 for worsening abdominal pain, N/V. Denies fevers, chills or NS. No recurrent infections. During admission, cardiac meds for cardiomyopathy were discontinued. HR and BP has since stabilized. She notes that HR was dropping down into 30s and she felt very tired. She is currently being worked up by Dr. Callahan at [facility] for GI malabsorptive conditions. EGD and colonoscopy [...] level, right foot, (more content not included)... [facility] 07-11-2024 History of Present illness Narrative Hematology [...] by her PCP following recent admission to [facility] 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 Found to be pancytopenic during admission (result from [facility] scanned in). Counts have since recovered. PCP [...] ligation about 3 years. She follows with TRANSITION ADVISOR. Required IV iron with last 2 pregnancies. [...] She reports tolerating IV iron well overall. [place] better after 2nd infusion. Denies any issues with bleeding or bruising. Periods irregular, no menses in last 6 weeks. Hcg performed at [facility] neg. No SOB, CP. She was admitted to [facility] on 08/19/23 for worsening abdominal pain, N/V. Denies fevers, chills or NS. No recurrent infections. During admission, cardiac meds for cardiomyopathy were discontinued. HR and BP has since stabilized. She notes that HR was dropping down into 30s and she felt very tired. She is currently being worked up by Dr. Callahan at [facility] for GI malabsorptive conditions. EGD and colonoscopy [...] PCP for routine health maintenance. Yaneth Davenport APRN.SEAMER OPERATOR I spent a total of 30 minutes on the date of the service which included preparing to see the patient, [id number] patient care, completing clinical documentation, obtaining and/or [...] of this patient. documented in this encounter [facility] 07-09-2024 Telephone encounter Note Scheduled iron with patient. Start email sent [facility] Work Phone: 07-09-2024 Miscellaneous Notes Scheduled iron with patient. Start email sent Looks like she no showed last OV but she is established. Needs IV iron. [place] orders are in. Can you please schedule IV iron sucrose 200 mg x 5 ? Ok to just schedule OV on day that she is here for IV iron infusion. I called and spoke with patient about plan and she is agreeable. Yaneth Davenport APRN.SEAMER OPERATOR documented in this encounter [facility] 07-09-2024 Telephone encounter Note Looks like she no showed last OV but she is established. Needs IV iron. [place] orders are in. Can you please schedule IV iron sucrose 200 mg x 5 ? Ok to just schedule OV on day that she is here for IV iron infusion. I called and spoke with patient about plan and she is agreeable. Yaneth Davenport APRN.SEAMER OPERATOR [facility] 07-08-2024 Telephone encounter Note I called and spoke to Carola and scheduled her for 07/11/24 @ 10:00 am, patient confirmed this date, time and location Hermes Lennon [facility] 07-08-2024 Miscellaneous Notes I called and spoke to Carola and scheduled her for 07/11/24 @ 10:00 am, patient confirmed this date, time and location Hermes Slater Pss Recent ER visit at [facility] on 07/03 with microcytic anemia, hgb 8.9. not taking PO iron d/t instructions by GI doctor. Iron lab work drawn today and in process. Thank you, Marlyn Estrada APRN.SEAMER OPERATOR Schedule appt. With Yaneth first available, not a new pt. Althea Matos LPN FYI pt. Was scheduled for 8 week F/U and was a no show for that appt. ( Did have labs done 10/30/23) PATIENT WAS REFERRED TO HEMATOLOGY BY Hossein ESTRADA. PLEASE ADVISE AND CONTACT PATIENT documented in this encounter [facility] 07-08-2024 Telephone encounter Note Recent ER visit at [facility] on 07/03 with microcytic anemia, hgb 8.9. not taking PO iron d/t instructions by GI doctor. Iron lab work drawn today and in process. Thank you, Marlyn Estrada APRN.SEAMER OPERATOR [facility] 07-08-2024 Telephone encounter Note Schedule appt. With Yaneth first available, not a new pt. Althea Matso LPN FYI pt. Was scheduled for 8 week F/U and was a no show for that appt. ( Did have labs done 10/30/23) [facility] 07-08-2024 Telephone encounter Note PATIENT WAS REFERRED TO HEMATOLOGY BY Hossein ESTRADA. PLEASE ADVISE AND CONTACT PATIENT [facility] 07-08-2024 Note HNO ID: [id number] Author: MARLYN ESTRADA APRN.SEAMER OPERATOR Service: ? Author Type: Nurse Practitioner Type: Progress Notes Filed: 07/08/2024 11:26 Note Text: Chief Complaint Patient presents with: [facility] follow up HPI Carola Harding is a 33 year old female who presents here today for Above Complaints. Carola is an established patient of Dr. Vicente DO. Concerns today... ER follow-up --- [facility] ER visit on 07/03 d/t fever and [...] rales.. Heart: RRR (more content not included)... [facility] 07-08-2024 History of Present illness Narrative Chief Complaint Patient presents with: [facility] follow up HPI Carola Harding is a 33 year old female who presents here today for Above Complaints. Carola is an established patient of Dr. Zhang, DO. Concerns today... ER follow-up --- [facility] ER visit on 07/03 d/t fever and [...] Laterality Date COLONOSCOPY SCREENING 08/21/2023 EGD W/O [facility] SPEC VARICIES INJ 08/21/2023 PAST SURGICAL [...] Patient agreeable to treatment plan. Marlyn Bynum APRN.SEAMER OPERATOR [address] [place] [address] documented in this encounter [facility] 07-03-2024 Note HNO ID: [id number] Author: JOSEMANUEL ROMERO PA-C Service: ? Author Type: Physician Test Specialist Type: Progress Notes Filed: 07/03/2024 14:04 Note Text: This note was created using [employer]. Celine Harding is a 33 year old female. Patient is a 33-year-old female who complains of sore throat and a headache that she has been experiencing for the past 1 day. Patient also describes body aches. Patient states that prior to arrival at this [facility] care facility she also developed [...] 4 MG DISINTEGRATING TABLET Josemanuel Romero PA-C [facility] 07-03-2024 History of Present illness Narrative This note was created using [employer]. Celine Harding is a 33 year old female. Patient is a 33-year-old female who complains of sore throat and a headache that she has been experiencing for the past 1 day. Patient also describes body aches. Patient states that prior to arrival at this [facility] care facility she also developed [...] scan imaging cannot be performed at this [facility] care facility. Supportive care instructions [...] Josemanuel Romero PA-C documented in this encounter [facility] 04-03-2024 Note HNO ID: [id number] Author: PINA WILSON PA-C Service: ? Author Type: Physician Test Specialist Type: Progress Notes Filed: 04/03/2024 13:37 Note [...] symptoms Pina Wilson (more content not included)... [facility] 04-03-2024 History of Present illness Narrative Chief [...] Laterality Date COLONOSCOPY SCREENING 08/21/2023 EGD W/O [facility] SPEC VARICIES INJ 08/21/2023 PAST SURGICAL [...] Pina Wilson PA-C documented in this encounter [facility] 10-31-2023 Telephone encounter Note Pt. informed via my Chart. [facility] 10-31-2023 Miscellaneous Notes Pt. informed via my Chart. Please inform patient that her labs are stable. Thyroid labs are still borderline but they are normal. Normal renal and liver function labs Jamari Zhang DO documented in this encounter [facility] 10-31-2023 Telephone encounter Note Please inform patient that her labs are stable. Thyroid labs are still borderline but they are normal. Normal renal and liver function labs Jamari Zhang DO [facility] 10-30-2023 History of Present illness Narrative [...] then a follow up with Dr. Vogel Octave Board Assembler at [facility] to determine if the myocarditis and EF is improving. She still has mostly just the fatigue and appetite concerns. No recent chest pain or pressure Seeing Dr. Callahan Manager Research- was found to have Crohns disease (by [...] Laterality Date COLONOSCOPY SCREENING 08/21/2023 [facility] 08/21/2023 PAST [...] 422.0, ICD10: J11.82 (primary diagnosis) F/u with Octave Board Assembler as scheduled. 2. Underweight - ICD9: 783.22, ICD10: R63.6 Recheck labs as ordered. - THYROID STIMULATING HORMONE - T4 FREE/FREE THYROXINE - T3, FREE 3. Iron deficiency anemia, unspecified iron deficiency anemia type - ICD9: 280.9, ICD10: D50.9 Recheck labs as ordered F/u with [facility] Symptoms of fatigue still - COMPREHENSIVE METABOLIC PANEL 4. Elevated TSH - ICD9: 794.5, ICD10: R79.89 Recheck labs, has fatigue that is present - THYROID STIMULATING HORMONE - T4 FREE/FREE THYROXINE - T3, FREE 5. Fatigue, unspecified type - ICD9: 780.79, ICD10: R53.83 See above, recheck labs, f/u with Octave Board Assembler and Manager Research Jamari Zhang DO Return if no improvement. Follow up with Jamari Zhang DO. To ER if develops chest pain, shortness of breath, . Discussed risks, benefits, alternatives, and potential side effects of medications. Patient/Guardian expressed understanding and agreed with the plan. See patient instructions. Jamari Zhang DO [address] [place] [address] documented in this encounter [facility] 09-11-2023 Telephone encounter Note Patient presented at [facility] Breeding Manager with a handwritten report from the manager mall (Dr. Callahan), including a treatment plan. Document scanned in. Manager Research ordered an MRI as well. Criselda Tariq [facility] 09-11-2023 Miscellaneous Notes Patient presented at [facility] Breeding Manager with a handwritten report from the manager mall (Dr. Callahan), including a treatment plan. Document scanned in. Manager Research ordered an MRI as well. 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 Found to be pancytopenic during admission (result from [facility] scanned in). Counts have since recovered. PCP [...] ligation about 3 years. She follows with TRANSITION ADVISOR. Required IV iron with last 2 pregnancies. [...] She reports tolerating IV iron well overall. [place] better after 2nd infusion. Denies any issues with bleeding or bruising. Periods irregular, no menses in last 6 weeks. Hcg performed at [facility] neg. No SOB, CP. She was admitted to [facility] on 08/19/23 for worsening abdominal pain, N/V. Denies fevers, chills or NS. No recurrent infections. During admission, cardiac meds for cardiomyopathy were discontinued. HR and BP has since stabilized. She notes that HR was dropping down into 30s and she felt very tired. She is currently being worked up by Dr. Callahan at [facility] for GI malabsorptive conditions. EGD and colonoscopy [...] blood transfusion - continue to follow with TRANSITION ADVISOR - VWF panel, unremarkable - factor VII elevated, may be secondary to inflammation. Can consider redraw in future. Myocarditis 2/2 flu b - medications discontinued at last hospital visit 08/19/23 - follow up with cardiology as scheduled Follow up with PCP for routine health maintenance. RTC in about 8 weeks with cbc, iron studies prior. Yaneth Davenport APRN.SEAMER OPERATOR I spent a total of 60 minutes on the date of the service which included preparing to see the patient, [id number] patient care, completing clinical documentation, performing a [...] of this patient. documented in this encounter [facility] 08-21-2023 Procedure note [facility] 08-21-2023 Procedure note [facility] 08-21-2023 Procedure note [facility] 08-21-2023 Procedure note [facility] 08-20-2023 Progress note Note Date/Time August 20, 2023 12:02pm [facility] Medical Records Department [address] [place] [address] Progress Note - Hospitalist 08/20/23 1202 MR#: [id number] Acct: [id number] Name: CAROLA HARDING Rep #:[id number] : 1990 32 From: Nitish monge DO PCP: Dr. Jamari Zhang, Status:AD M IN Location: [facility] IS882-9 Reason for Visit Reason for Visit: Diagnoses [...] Patient is a 32-year-old female who presented [facility] ED on 08/18/2023 with worsening fatigue, malaise [...] 35 minutes. Charges/Coding Visit Charges Inpatient E&M: 10926 Subs Hosp L2 08/20/23 7876 <Electronically signed by Nitish Freire DO> Cosigner Signature (if applicable): CC: ~ Signed [facility] Work Phone: 1(326) 300-543903-10-2024 Progress note Author Andi Friend [facility] August 20, 2023 12:10pm Note Date/Time August 20, 2023 12: 10pm [facility] Medical Records Department [address] [place] [address] Progress Note - GI 08/20/23 1210 MR#: [id number] Acct: [id number] Name: CAROLA HARDING Rep #:[id number] : 1990 32 From: Andi Callahan DO PCP: Dr. Jamari Zhang, DO Status:AD M IN Location: [place]3 CV940-3 Subjective Subjective Patient is abdominal pain is [...] on 08/21/2023. Charges/Coding Visit Charges Inpatient E&M: 32678 Subs Hosp L3 08/20/23 1210 <Electronically signed by Andi Callahan DO> Cosigner Signature (if applicable): CC: ~ Signed [facility] Work Phone: 1(917) 635-727403-09-2024 Consult note Author Andi Callahan [facility] August 19, 2023 2:31pm Note Date/Time August 19, 2023 2:24 pm [facility] Medical Records Department [address] [place], [place] [address] [address] Consultation - GI 08/19/23 1421 MR#: [id number] Acct: [id number] Name: CAROLA HARDING Rep #:[id number] : 1990 32 From: Andi Callahan DO PCP: Dr. Jamari Zhang, Status:KERRIE Mazariegos UJDE Location: [place] [address] HPI Consult Data Date of Consult: 08/19/23 HPI Narrative Reason for Consultation: Protein losing enteropathy and anemia HPI Narrative: CAROLA HARDING is a 32 y/o F w/ PMHx: Recent 07/2022 Acute Myocarditis/Cardiomyopathy secondary to Acute Viral Influenza B Illness, Chronicanemia/Fe deficiency anemia, Anxiety and Depression who presents to the [facility] ED on 08/17/23 with history of 24 [...] prior to being on medicines for hercardiomyopathy. [facility] Medical History Anxiety and depression Chronic anemia [...] on 08/21/2023. Charges/Coding Visit Charges Inpatient E&M: 09228 Init Hosp L3 08/19/23 1431 <Electronically signed by Andi Callahan DO> Cosigner Signature (if applicable): CC: Dr. Amy Villalba MD; Dr. Jamari Zhang DO; Dr. Wilbert Vogel MD; Andi Callahan DO~ Signed [facility] Work Phone: 1(921) 638-383503-09-2024 Progress note [facility] August 19, 2023 2:20pm Note Date/Time August 19, 2023 1:03 pm [facility] Medical Records Department [address] [facility] [place] [address] Progress Note - Hospitalist 08/19/23 1303 MR#: [id number] Acct: [id number] Name: CAROLA HARDING Rep #:[id number] : 1990 32 From: Nitish monge DO PCP: Dr. Jamari Zhang DO Status:KERRIE ROQUE Location: [place]3 MM683-2 Reason for Visit Reason for Visit: Diagnoses [...] Patient is a 32-year-old female who presented [facility] ED on 08/18/2023 with worsening fatigue, malaise [...] 35 minutes. Charges/Coding Visit Charges Inpatient E&M: 43115 Subs Hosp L2 08/19/23 1420 <Electronically signed by Nitish Freire DO> Cosigner Signature (if applicable): CC: ~ Signed [facility] Work Phone: 1(709) 572-843103-09-2024 Progress note Author Wilbert Vogel [facility] August 19, 2023 10:28am Note Date/Time August 19, 2023 10:2 8am [facility] Medical Records Department [address] [place] [address] Progress Note - Cardiology 08/19/23 1016 MR#: [id number] Acct: [id number] Name: CAROLA HARDING Delilah Rep #:[id number] : 1990 32 From: Wilbert Vogel MD PCP: Dr. Jamari Zhang, DO Status:AD M JUDE Location: MS3 AY430-7 Subjective Subjective The patient was interviewed and [...] to see a GI physician at the [facility] but has not been able to schedule [...] situation with the heart failure specialist at [facility] and they agree that this appears to [...] this hospitalization. Charges/Coding Visit Charges Inpatient E&M: 73115 Subs Hosp L3 08/19/23 1028 <Electronically signed by Wilbert Vogel MD> Cosigner Signature (if applicable): CC: ~ Signed [facility] Work Phone: [phone] Consult note Author Wilbert Vogel [facility] August 18, 2023 5:37pm Note Date/Time August 18, 2023 5:03 pm [facility] Medical Records Department [address] [place] [address] Consultation - Cardiology 08/18/23 1648 MR#: [id number] Acct: [id number] Name: CAROLA HARDING Rep #:[id number] : 1990 32 From: Wilbert Vogel MD PCP: Dr. Jamari Zhang, DO Status:AD M [facility] Location: [address] Assessment & Plan Assessment/Plan (1) Cardiomyopathy: [...] transfer to her heart failure service at [facility]. I had already been in contact with [...] of anemia and has been evaluated at[facility] and felt to be iron deficient. She is on replacement therapy. PLAN: Plan 1. I would avoid ambulating her in the halls until we can get a better handle on her hemodynamic status. 2. 2D echocardiogram tomorrow morning. If her EF has deteriorated we will consider transferring her to the [facility] heart failure service. I already discussed this [...] has had this being evaluated by the [facility] physicians. [facility] also [facility] some point in time about malabsorption [...] with no evidence of active cardiopulmonary disease. [facility] Medical History Anxiety and depression Chronic anemia [...] Applicable: No Charges/Coding Visit Charges Inpatient E&M: 46968 Init Hosp L3 Objective Data Vital Signs: [...] (Auto) 81.8 H, Lymph % (Auto)10.2 L, Swain % (Auto) 7.6, Eos % (Auto) 0.0, [...] Clarity Clear, Urine pH 8.0, Ur Specific Warren 1.010, Urine Protein Negative, Urine Glucose (UA) [...] % (Auto) 56.7, Lymph % (Auto) 28.7, Swain % (Auto) 13.1 H, Eos % (Auto) [...] 81.8 H, Lymph % (Auto) 10.2 L, Swain % (Auto) 7.6, Eos % (Auto) 0.0, [...] Clarity Clear, Urine pH 8.0, Ur Specific Warren 1.010, Urine Protein Negative, Urine Glucose (UA) [...] % (Auto) 56.7, Lymph % (Auto) 28.7, Swain % (Auto) 13.1 H, Eos % (Auto) [...] 19:20 EST Reading Location ID and State: [facility] / [place] Tel , Service support , 08/18/23 1737 <Electronically signed by Wilbert Vogel MD> Cosigner Signature (if applicable): CC: Dr. Amy Villalba MD; Dr. Jamari Zhang DO; Dr. Wilbert Vogel MD~ Signed [facility] Work Phone: 1(907) 580-192003-08-2024 Progress note Author Nitish [facility] August 18, 2023 5:23pm Note Date/Time August 18, 2023 1:49 pm [facility] Medical Records Department [address] [place] [address] Progress Note - Hospitalist 08/18/23 1348 MR#: [id number] Acct: [id number] Name: CAROLA HARDING Rep #:[id number] : 1990 32 From: Nitish monge DO PCP: Dr. Jamari Zhang DO Status:AD [facility] Location: [place] [address] Reason for Visit Reason for Visit: Diagnoses [...] (Auto) 81.8 H, Lymph % (Auto)10.2 L, Swain % (Auto) 7.6, Eos % (Auto) 0.0, [...] Clarity Clear, Urine pH 8.0, Ur Specific Warren 1.010, Urine Protein Negative, Urine Glucose (UA) [...] % (Auto) 56.7, Lymph % (Auto) 28.7, Swain % (Auto) 13.1 H, Eos % (Auto) [...] 19:20 EST Reading Location ID and State: [facility] / [place] Tel , Service support , Physical Exam [...] Patient is a 32-year-old female who presented [facility] ED on 08/18/2023 with worsening fatigue, malaise [...] 35 minutes. Charges/Coding Visit Charges Inpatient E&M: 00159 Subs Hosp L2 08/18/23 1723 <Electronically signed by Nitish Freire DO> Cosigner Signature (if applicable): CC: ~ Signed [facility] Work Phone: 1(645) 326-473303-08-2024 Consult note Author Chadd Head [facility] August 18, 2023 11:49am Note Date/Time August 18, 2023 11:[address] [facility] Medical Records Department [address] [place] [address] Counseling Note - Pharmacy 08/18/23 1149 MR#: [id number] Acct: [id number] Name: CAROLA HARDING Rep #:[id number] : 1990 32 From: Chadd Head PCP: Dr. Jamari Zhang, DO Status:KERRIE Mazariegos JUDE Y Location: [address] Pharmacy Service has performed discharge medication [...] Signature (if applicable): Date CC: ~ Signed [facility] Work Phone: [phone]) 306-543703-08-2024 Discharge summary Author Nitish Freire [facility] August 18, 2023 11:24am Note Date/Time August 18, 2023 11:2 3am [facility] Medical Records Department [address] [place] [address] Instructions for Home/Discharge Instructions 08/18/23 1120 MR#: [id number] Acct: [id number] Name: CAROLA HARDING Rep #:[id number] : 1990 32 From: Nitish monge DO [...] specific medication treatment for rhinovirus, please take uwxh-ikd-lznwnah medications for upper respiratory symptoms as needed. [...] MD; Dr. Jamari Zhang DO ~ Signed [facility] Work Phone: 1(602) 351-866203-08-2024 Discharge summary Author Latrell Martines [facility] August 18, 2023 12:20am Note Date/Time August 17, 2023 6:18 pm [facility] Medical Records Department [address] [place] [address] Emergency Department Summary 08/17/23 MR#: [id number] Acct: [id number] Name: CAROLA HARDING Rep #:[id number] : 1990 32 From: Divien NUNES PCP: Dr. Jamari Zhang, DO Status:AD M JUDE Location: [place]3 RY236-0 HPI <DES Jimenez - Last Filed: 08/17/23 [...] <DES Jimenez - Last Filed: 08/17/23 22:26> [facility] Medical History Anxiety and depression Chronic anemia [...] <DES Jimenez - Last Filed: 08/17/23 22:26> [facility] Narrative Medical decision making narrative: History [...] 81.8 H Lymph % (Auto) 10.2 L Swain % (Auto) 7.6 Eos % (Auto) 0.0 [...] Color Urine Clarity Urine pH Ur Specific Warren Urine Protein Urine Glucose (UA) Urine Ketones [...] (Auto) Neut % (Auto) Lymph % (Auto) Swain % (Auto) Eos % (Auto) Baso % [...] Color Urine Clarity Urine pH Ur Specific Warren Urine Protein Urine Glucose (UA) Urine Ketones [...] (Auto) Neut % (Auto) Lymph % (Auto) Swain % (Auto) Eos % (Auto) Baso % [...] Clarity Clear Urine pH 8.0 Ur Specific Warren 1.010 Urine Protein Negative Urine Glucose (UA) [...] (Auto) Neut % (Auto) Lymph % (Auto) Swain % (Auto) Eos % (Auto) Baso % [...] Color Urine Clarity Urine pH Ur Specific Warren Urine Protein Urine Glucose (UA) Urine Ketones Urine Occult Blood Urine Nitrite Urine Bilirubin Urine Urobilinogen Ur Leukocyte Esterase Urine RBC Urine WBC Ur Squamous Epith Cells Urine Bacteria Urine Mucus Radiography Diagnostic Testing: Clinical Impression(s) from Imaging Studies Chest X-Ray 08/17/23 18:50 IMPRESSION: No acute cardiopulmonary pathology Electronically Signed: Sherif Abdullahi MD at 19:20 EST Reading Location ID and State: [facility] / [place] Tel , Service support , <Dr. Latrell Martines, DO - Last Filed: 08/17/23 23:54> [facility] Narrative Medical decision making narrative: History [...] has low blood pressure. [facility] with the exertion began to have [...] 81.8 H Lymph % (Auto) 10.2 L Swain % (Auto) 7.6 Eos % (Auto) 0.0 [...] Color Urine Clarity Urine pH Ur Specific Warren Urine Protein Urine Glucose (UA) Urine Ketones [...] (Auto) Neut % (Auto) Lymph % (Auto) Swain % (Auto) Eos % (Auto) Baso % [...] Color Urine Clarity Urine pH Ur Specific Warren Urine Protein Urine Glucose (UA) Urine Ketones [...] (Auto) Neut % (Auto) Lymph % (Auto) Swain % (Auto) Eos % (Auto) Baso % [...] Clarity Clear Urine pH 8.0 Ur Specific Warren 1.010 Urine Protein Negative Urine Glucose (UA) [...] (Auto) Neut % (Auto) Lymph % (Auto) Swain % (Auto) Eos % (Auto) Baso % [...] Color Urine Clarity Urine pH Ur Specific Warren Urine Protein Urine Glucose (UA) Urine Ketones Urine Occult Blood Urine Nitrite Urine Bilirubin Urine Urobilinogen Ur Leukocyte Esterase Urine RBC Urine WBC Ur Squamous Epith Cells Urine Bacteria Urine Mucus Radiography Diagnostic Testing: Clinical Impression(s) from Imaging Studies Chest X-Ray 08/17/23 18:50 IMPRESSION: No acute cardiopulmonary pathology Electronically Signed: Sherif Abdullahi MD at 19:20 EST Reading Location ID and State: [address] [place] [address] Tel , Service support , Discharge Plan Dx/Rx/DC Orders Clinical Impression: Nausea and vomiting, Abdominal pain, Dehydration, Acute hypokalemia, Chronic anemia Disposition Disposition: Acute Care Hospital [facility] Discharge Date/Time: 08/17/23 23:39 What to do if you have Problems For any increased pain, shortness of breath, bleeding, nausea or vomiting, chestpain, or any unexpected problems, contact your Primary Care Provider. Call [facility] ([phone]) or report to the closest Emergency Room. Call 911 if necessary. 08/17/236 <Electronically signed by Divine NUNES> Cosigner Signature (if applicable): 08/18/23 0020 <Electronically signed by Latrell Martines DO> CC: Dr. Jamari Zhang, DO ~ Signed [facility] Work Phone: [phone]) 810-582703-08-2024 History and physical note Author Amy Deejay [facility] August 17, 2023 11:16pm Note Date/Time August 17, 2023 9:41 pm [facility] Medical Records Department [address] [place] [address] H&P Exam - Hospitalist 08/17/239 MR#: [id number] Acct: [id number] Name: CAROLA HARDING Rep #:[id number] : 1990 32 From: Amy Villalba MD PCP: Dr. Jamari Zhang, Status:KERRIE ROQUE Location: [facility] TC053-2 HPI - General General Date of Admission: 08/17/23 Date of Service: 08/17/23 Chief Complaint: Abdominal cramping, N/V. HPI Narrative The patient is a 32 y/o F w/ PMHx: Recent 07/2022 Acute Myocarditis/Cardiomyopathy secondary to Acute Viral Influenza B Illness, Chronicanemia/Fe deficiency anemia, Anxiety and Depression who presents to the [facility] ED on 08/17/23 with history of 24 hours of worsening fatigue, malaise and then onset over the last 12 hours intractable nausea and emesis with generalized abdominal cramping without diarrhea nor any fever or chills. She had been [place] errands and go to doctors visits [...] well as 1 L normal saline bolus. [facility] Medical History (Updated 08/17/23 @ 23:16 by [...] (Auto) 81.8 H, Lymph % (Auto)10.2 L, Swain % (Auto) 7.6, Eos % (Auto) 0.0, [...] Clarity Clear, Urine pH 8.0, Ur Specific Warren 1.010, Urine Protein Negative, Urine Glucose (UA) [...] 19:20 EST Reading Location ID and State: [facility] / [place] Tel , Service support , Assessment & Plan Assessment/Plan (1) Nausea and vomiting: PLAN: Plan The patient is a 32 y/o F w/ PMHx: Recent 07/2022 Acute Myocarditis/Cardiomyopathy secondary to Acute Viral Influenza B Illness, Chronicanemia/Fe deficiency anemia, Anxiety and Depression who presents to the [facility] ED on 08/17/23 with history of 24 [...] had been most recently seen 08/08/[address] Vogel, had been maintained on spironolactone [...] is improving. Charges/Coding Visit Charges Inpatient E&M: 01662 Init Hosp L2 08/17/23 2316 <Electronically signed by Amy Villalba MD> Cosigner Signature (if applicable): CC: Dr. Amy Villalba MD; Dr. Jamari Zhang, DO~ Signed [facility] Work Phone: 1(826) 315-876303-07-2024 History and physical note Author [facility] August 17, 2023 11:16pm Note Date/Time August 17, 2023 9:41 pm [facility] Medical Records Department [address] [facility] [place] [address] H&P Exam - Hospitalist 08/17/23 2139 MR#: [id number] Acct: [id number] Name: CAROLA HARDING Rep #:[id number] : 1990 32 From: Amy Villalba MD PCP: Dr. Jamari Zhang, Status:KERRIE Mazariegos [facility] Location: [place] [address] HPI - General General Date of Admission: 08/17/23 Date of Service: 08/17/23 Chief Complaint: Abdominal cramping, N/V. HPI Narrative The patient is a 32 y/o F w/ PMHx: Recent 07/2022 Acute Myocarditis/Cardiomyopathy secondary to Acute Viral Influenza B Illness, Chronicanemia/Fe deficiency anemia, Anxiety and Depression who presents to the [facility] ED on 08/17/23 with history of 24 hours of worsening fatigue, malaise and then onset over the last 12 hours intractable nausea and emesis with generalized abdominal cramping without diarrhea nor any fever or chills. She had been [place] errands and go to doctors visits [...] well as 1 L normal saline bolus. [facility] Medical History (Updated 08/17/23 @ 23:16 by [...] (Auto) 81.8 H, Lymph % (Auto)10.2 L, Swain % (Auto) 7.6, Eos % (Auto) 0.0, [...] Clarity Clear, Urine pH 8.0, Ur Specific Warren 1.010, Urine Protein Negative, Urine Glucose (UA) [...] Anxiety and Depression who presents to the [facility] ED on 08/17/23 with history of 24 [...] had been most recently seen 08/08/[address] Vogel, had been maintained on spironolactone [...] is improving. Charges/Coding Visit Charges Inpatient E&M: 02208 Init Hosp L2 08/17/23 2316 <Electronically signed by Amy Villalba MD> Cosigner Signature (if applicable): CC: Dr. Amy Villalba MD; Dr. Jamari Zhang DO~ Signed [facility] Work Phone: 1([phone]) 160-213603-04-2024 Miscellaneous Notes* Telephone Encounter - Linda Pike LISW - 08/14/2023 3:40 PM EST Pt noted on [facility] 1st time treatment report. Pt has a non-oncology regimen. No social work followup indicated. BISMARK Brumfield-S documented in this encounterCl[facility]02-29-[facility]24 Miscellaneous Notes* Telephone Encounter - Alexei Garcia - 08/10/2023 10:59 AM EST Reviewed patient on the 1st time treatment report. The patient has a non- oncology regimen. This patient is active with [employer]. No further Financial Navigator intervention is needed at this time. 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 Found to be pancytopenic during admission (result from [facility] scanned in). Counts have since recovered. PCP [...] ligation about 3 years. She follows with TRANSITION ADVISOR. Required IV iron with last 2 pregnancies. 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 documented in this encounterClerm[facility]02-12-2024 Miscellaneous Notes* Telephone Encounter - Mar [...] you, Marlyn Estrada APRN.BLAIRE documented in this encounterClerm[facility]02-09-2024 Miscellaneous Notes* Telephone Encounter - Stefania Toledo - 07/21/2023 4:13 PM EST Called and spoke with patient. New patient appt with Yaneth scheduled for 07/25. Stefania Hayes * Telephone Encounter - John Colin DO - 07/21/2023 3:48 PM EST Iron deficiency. Please schedule with Yaneth. John Colin DO * Telephone Encounter - Zenia Kim - 07/21/2023 2:18 PM EST Please review consult to Hematology from Marlyn Estrada and call patient to schedule, thank you. documented in this encounterClermont [facility]02-09-2024 History of Present illness Narrative* Josefina [...] PATIENT PRESENTS WITH AN IMPLANTABLE OR ATTACHED WATERWORKS OPERATOR: No RADIOLOGY DEPARTMENT: General X-ray: Exam(s) Completed: Chest X-Ray PERIPHERAL IV DATA: Not applicable SIGNED BY: RT Cindy(R) July 21, 2023 2:50 PM documented in this encounterClermont [facility] Hospital02-09-2024 History of Present illness Narrative* Marlyn Estrada APRN.CNP - 07/21/2023 1:20 PM EST Chief Complaint Patient presents with: hospital f/up HPI Carola Harding is a 32 year old female who presents here today for Above Complaints. Carola is an established patient of Dr. Vicente DO and myself. Concerns today.. Hospital follow-up --- [facility] admission from 07/16/23-07/18/23. Pt went to ER [...] Patient agreeable to treatment plan. Marlyn Bynum APRN.SEAMER OPERATOR [address] [place] [address] documented in this encounterClermont [facility] Hospital02-04-2024 Discharge summary Author Lang Atkinson [facility] July 16, 2023 10:00pm Note Date/Time July 16, 2023 4 :58pm [facility] Medical Records Department [address] [place] [address] Emergency Department Summary 07/16/23 MR#: [id number] Acct: [id number] Name: CAROLA HARDING Rep #:[id number] : 1990 32 From: Lang Valderrama PCP: [...] setting of recent viral URI could be admitting representative of pericarditis or myocarditis CBC with [...] Dispo: Admit This note was generated with Anybots dictation software. It may contain incorrectwords, spelling, [...] % (Auto) 67.3 Lymph % (Auto) 25.1 Swain % (Auto) 7.3 Eos % (Auto) 0.0 [...] B, Myocarditis Disposition Disposition: Acute Care Hospital [facility] What to do if you have Problems For any increased pain, shortness of breath, bleeding, nausea or vomiting, chestpain, or any unexpected problems, contact your Primary Care Provider. Call [facility] ([phone]) or report to the closest Emergency Room. Call 911 if necessary. 07/16/23 2200 <Electronically signed by Lang Atkinson DO> Cosigner Signature (if applicable): CC: Dr. Jamari Zhang DO ~ Signed [facility] Work Phone: 1(884) 256-897911-25-2023 History of Present illness Narrative* Sylvester Garay APRN.SEAMER OPERATOR - 05/06/2023 11:26 AM EST Subjective HPI [...] SPRAY,SUSPENSION Sylvester Garay APRN.CNP documented in this encounterClermont [facility] Hospital11-22-2023 Miscellaneous Notes* Telephone Encounter - Marlyn Estrada APRN.CNP - 05/03/2023 11:08 AM EST Please call patient and let her know that hemoglobin and ferritin (protein that carries and stores iron) has slightly improved. documented in this encounterClermont [facility] Hospital11-20-2023 History of Present illness Narrative* Marlyn [...] sick with similar symptoms. Took them to truer pinion and wheel and was told this was likely viral [...] Patient agreeable to treatment plan. Marlyn Bynum APRN.SEAMER OPERATOR [address] [place] [address] documented in this encounterClermont [facility] Hospital11-01-2023 Miscellaneous Notes* Telephone Encounter - Sherri [...] in 1 month. Thank you, Marlyn Estrada APRN.SEAMER OPERATOR documented in this encounterClermont County Hospital09-22-2023 History of Present illness Narrative* Cris Rolle PA-C - 03/03/2023 6:44 PM EDT This note was created using [employer]. Celine Harding is a 32 year old female. HPI Patient presents with a chief complaint of cough and congestion over the past week. She feels like she is not improving. She is tried some Mucinex iwih-uxr-cxmpztx. Her son was sick with similar symptoms the week before. No fever. Cough is keeping her up at night. Is productive. No chest pain or rosita rtness of breath. No vomiting or diarrhea. No ear pain. She is also had a persistent sore throat. She tried some allergy medication ztjc-ily-mgfnbed which did not seem to help either. [...] daily for 7 days. 6636 mL 12 Rydpahjwkzvvnhd-Wfngcoxvq-TS (BROMFED DM) 2-30-10 mg/5 mL syrup Take [...] (POC) Cris Rolle PA-C documented in this encounterClermont [facility] Hospital08-28-2023 Discharge summary Author Ming Ziegler [facility] February 06, 2023 9:01pm Note Date/Time February 06, 2023 8: 54pm [facility] Medical Records Department [address] [place] [address] Emergency Department Summary 02/06/23 MR#: [id number] Acct: [id number] Name: CAROLA HARDING Rep #:[id number] : 1990 32 From: Ming Ziegler MD PCP: Dr. Jamari Zhang, DO Status:RI E ER Location: ED HPI History of [...] it worse and rest makes it better. [facility] Medical History Abnormal thyroid blood test [...] 0RF Primary Care Provider: Jamari Zhang Referrals: Jamari Zhang, [Primary Care Provider] - 3-5 Days if not improving Disposition Disposition: Home, Self Care What to do if you have Problems For any increased pain, shortness of breath, bleeding, nausea or vomiting, chestpain, or any unexpected problems, contact your Primary Care Provider. Call [facility] ([phone]) or report to the closest Emergency Room. Call 911 if necessary. 02/06/232100 <Electronically signed by Ming Ziegler MD> Cosigner Signature (if applicable): CC: Dr. Jamari Zhang DO ~ Signed [facility] Work Phone: 1(566) 901-417110-17-2022 Instructions* Patient Instructions* Michelle Herrmann APRN.SEAMER OPERATOR - 03/28/2022 1:58 PM EDT -Increase fluid [...] breath, inability to swallow. documented in this encounterClermont [facility] Hospital10-17-2022 History of Present illness Narrative* Michelle HerrmannSTEFANIE.SEAMER OPERATOR - 03/28/2022 1:48 PM EDT Subjective The history is provided by the patient. No hourly sign language interpreter was used. LIVAN Harding is a 31 [...] indetail warranting prompt ER evaluation. Michelle Herrmann APRN.SEAMER OPERATOR documented in this encounterClermont County Hospital10-03-2022 History of Present illness Narrative* Tong Mederos MD - 03/14/2022 3:51 PM EDT Tong Mederos M.D. M.M.Sc. [place] Manager of Orthopaedic Surgery at [place] [address] Office: [phone] Consult requested for an opinion regarding the evaluation and treatment of the above patient. My final impression and recommendations will be communicated back to the requesting physician by way of the shared medical record or letter via US mail. Patient info: Carola Harding ([id number]) Service date: 03/14/2022 Referred by: SELF PCP: [...] medications for this visit. General Physical Exam: [facility] 05/07/2019 (Within Days) No weight on [...] Shoulder and Elbow Surgeon Orthopaedic Surgery Department [place], [place] [address] Tell: [phone] Appt:[phone] 03/14/2022 3:51 PM CC:Self documented in this encounterClermont County Hospital04-01-2022 Miscellaneous Notes* Telephone Encounter - Criselda [...] antibiotics. Marlyn Bynum APRN.CNP documented in this encounterClermont County Hospital03-28-2022 Instructions* Patient Instructions* Marlyn Bynum APRN.CNP - 09/06/2021 1:56 PM EDT Get Blood work and schedule US of abdomen. Schedule with friction welding machine operator JESSICA and flu testing in office. documented in this encounterClermont County Hospital03-28-2022 Nurse Note* Cherie Gan LPN - 09/06/2021 1:26 PM EDT Pt states low abdominal pressure for past few days. Dark concintrated urine. documented in this encounterClermont County Hospital03-28-2022 History of Present illness Narrative* Marlyn [...] ultrasound - Increase fiber in diet - [place] low residue diet - UA DIP, URINE [...] Patient agreeable to treatment plan. Marlyn Bynum APRN.SEAMER OPERATOR [address] [place] [address] documented in this encounterClermont County Hospital07-23-2020 History of Past illness Narrative* Problem [...] age 16, and treated by a at [place]. She has been treated for depression after [...] thyroid disorder treated by Dr. White, an director of blood in [place]. Patient took herself off of levothyroxine at [...] pain 03/19/201211/12 Overview: 03/19/2012Ngoce was seen at [facility] on March 06 for left flank pain. An ultrasound was done that revealed an intrauterine at 11 weeks 2 days. Urinalysis was negative. Patient denies any pain since then. [facility] ER report was faxed here and sent to Dr. Meeta Dhaliwal's office for review. 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 Patient states she was seen in [place] [facility] . She denies any bleeding since then. She denies any pain or cramping. She states she had an ultrasound done at [facility] that showed an intrauterine with an estimated due date of April 21. Patient signed a release of records form to obtain her records from her emergency room visit. Miscarriage precautions discussed. Depression 09/29/2011 05/18/2017 Overview: 07/02/2013 Pt has a history of depression diagnosed at age 16, and treated by a DrJoann at [place]. She was treated for depression by Dr. [...] of this encounter (statuses as of 09/06/2021) [facility]2020 History of Past illness Narrative* Problem [...] 16, and treated by a DrJoann at [place]. She has been treated for depression after [...] thyroid disorder treated by Dr. White, an director of blood in [place]. Patient took herself off of levothyroxine at [...] pain 03/19/201211/12 Overview: 03/19/2012Faby was seen at [facility] on March 06 for left flank pain. An ultrasound was done that revealed an intrauterine at 11 weeks 2 days. Urinalysis was negative. Patient denies any pain since then. [facility] ER report was faxed here and sent to Dr. Meeta Dhaliwal's office for review. 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 Patient states she was seen in [facility] 2 weeks ago for spotting during . She denies any bleeding since then. She denies any pain or cramping. She states she had an ultrasound done at [facility] that showed an intrauterine with an estimated due date of April 21. Patient signed a release of records form to obtain her records from her emergency room visit. Miscarriage precautions discussed. Depression 09/29/2011 05/18/2017 Overview: 07/02/2013 Pt has a history of depression diagnosed at age 16, and treated by a DrJoann at [place]. She was treated for depression by Dr. [...] of this encounter (statuses as of 09/10/2021) [facility] History of Past illness Narrative* Problem [...] age 16, and treated by a at [place]. She has been treated for depression after [...] thyroid disorder treated by Dr. White, an director of blood in [place]. Patient took herself off of levothyroxine at [...] pain 03/19/201211/12 Overview: 03/19/2012Faby was seen at [facility] on March 06 for left flank pain. An ultrasound was done that revealed an intrauterine at 11 weeks 2 days. Urinalysis was negative. Patient denies any pain since then. [facility] ER report was faxed here and sent to Dr. Meeta Dhaliwal's office for review. 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 Patient states she was seen in [facility] 2 weeks ago for spotting during . She denies any bleeding since then. She denies any pain or cramping. She states she had an ultrasound done at [facility] that showed an intrauterine with an estimated due date of April 21. Patient signed a release of records form to obtain her records from her emergency room visit. Miscarriage precautions discussed. Depression 09/29/2011 05/18/2017 Overview: 07/02/2013 Pt has a history of depression diagnosed at age 16, and treated by a DrJoann at [place]. She was treated for depression by Dr. [...] of this encounter (statuses as of 03/15/2022) [facility] History of Past illness Narrative* Problem [...] age 16, and treated by a at [place]. She has been treated for depression after [...] nsts and repeat growth in 4 weeks oDri Guerra MD Anemia complicating , third trimester [...] thyroid disorder treated by Dr. White, an director of blood in [place]. Patient took herself off of levothyroxine at [...] pain 03/19/201211/12 Overview: 03/19/2012Faby was seen at [facility] on March 06 for left flank pain. An ultrasound was done that revealed an intrauterine at 11 weeks 2 days. Urinalysis was negative. Patient denies any pain since then. [facility] ER report was faxed here and sent to Dr. Meeta Dhaliwal's office for review. 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 Patient states she was seen in [facility] 2 weeks ago for spotting during . She denies any bleeding since then. She denies any pain or cramping. She states she had an ultrasound done at [facility] that showed an intrauterine with an estimated due date of April 21. Patient signed a release of records form to obtain her records from her emergency room visit. Miscarriage precautions discussed. Depression 09/29/2011 05/18/2017 Overview: 07/02/2013 Pt has a history of depression diagnosed at age 16, and treated by a at [place]. She was treated for depression by Dr. [...] of this encounter (statuses as of 03/15/2022) [facility] History of Past illness Narrative* Problem [...] again with macrobid d/t patient allergies. Jens Kendrikc MD Request for sterilization 08/27/20192019 Overview: 11/28/19 [...] age 16, and treated by a at [place]. She has been treated for depression after [...] thyroid disorder treated by Dr. White, an director of blood in [place]. Patient took herself off of levothyroxine at [...] pain 03/19/201211/12 Overview: 03/19/2012Faby was seen at [facility] on March 06 for left flank pain. An ultrasound was done that revealed an intrauterine at 11 weeks 2 days. Urinalysis was negative. Patient denies any pain since then. [facility] ER report was faxed here and sent to Dr. Meeta Dhaliwal's office for review. 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 Patient states she was seen in [facility] 2 weeks ago for spotting during . She denies any bleeding since then. She denies any pain or cramping. She states she had an ultrasound done at [facility] that showed an intrauterine with an estimated due date of April 21. Patient signed a release of records form to obtain her records from her emergency room visit. Miscarriage precautions discussed. Depression 09/29/2011 05/18/2017 Overview: 07/02/2013 Pt has a history of depression diagnosed at age 16, and treated by a DrJoann at [place]. She was treated for depression by Dr. [...] of this encounter (statuses as of 03/28/2022) [facility] History of Past illness Narrative* Problem [...] again with macrobid d/t patient allergies. 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 Rosy Wilocx APRN.CNM Iron deficiency anemia 12/14/201708/26 Overview: 12/14/17 [...] age 16, and treated by a at [place]. She has been treated for depression after [...] thyroid disorder treated by Dr. White, an director of blood in [place]. Patient took herself off of levothyroxine at [...] 0 11/12/2012 Overview: 03/19/2012Faby was seen at [facility] on March 06 for left flank pain. An ultrasound was done that revealed an intrauterine at 11 weeks 2 days. Urinalysis was negative. Patient denies any pain since then. [facility] ER report was faxed here and sent to Dr. Meeta Dhaliwal's office for review. 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 Patient states she was seen in [facility] 2 weeks ago for spotting during . She denies any bleeding since then. She denies any pain or cramping. She states she had an ultrasound done at [facility] that showed an intrauterine with an estimated due date of April 21. Patient signed a release of records form to obtain her records from her emergency room visit. Miscarriage precautions discussed. Depression 09/29/2011 05/18/2017 Overview: 07/02/2013 Pt has a history of depression diagnosed at age 16, and treated by a DrJoann at [place]. She was treated for depression by Dr. [...] of this encounter (statuses as of 03/04/2023) [facility] History of Past illness Narrative* Problem [...] age 16, and treated by a at [place]. She has been treated for depression after [...] thyroid disorder treated by Dr. White, an director of blood in [place]. Patient took herself off of levothyroxine at [...] 0 11/12/2012 Overview: 03/19/2012Faby was seen at [facility] on March 06 for left flank pain. An ultrasound was done that revealed an intrauterine at 11 weeks 2 days. Urinalysis was negative. Patient denies any pain since then. [facility] ER report was faxed here and sent to Dr. Meeta Dhaliwal's office for review. 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 Patient states she was seen in [facility] 2 weeks ago for spotting during . She denies any bleeding since then. She denies any pain or cramping. She states she had an ultrasound done at [facility] that showed an intrauterine with an estimated due date of April 21. Patient signed a release of records form to obtain her records from her emergency room visit. Miscarriage precautions discussed. Depression 09/29/2011 05/18/2017 Overview: 07/02/2013 Pt has a history of depression diagnosed at age 16, and treated by a DrJoann at [place]. She was treated for depression by Dr. [...] of this encounter (statuses as of 04/13/2023) [facility] History of Past illness Narrative* Problem [...] age 16, and treated by a at [place]. She has been treated for depression after [...] thyroid disorder treated by Dr. White, an director of blood in [place]. Patient took herself off of levothyroxine at [...] 0 11/12/2012 Overview: 03/19/2012Faby was seen at [facility] on March 06 for left flank pain. An ultrasound was done that revealed an intrauterine at 11 weeks 2 days. Urinalysis was negative. Patient denies any pain since then. [facility] ER report was faxed here and sent to Dr. Meeta Dhaliwal's office for review. 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 Patient states she was seen in [facility] 2 weeks ago for spotting during . She denies any bleeding since then. She denies any pain or cramping. She states she had an ultrasound done at [facility] that showed an intrauterine with an estimated due date of April 21. Patient signed a release of records form to obtain her records from her emergency room visit. Miscarriage precautions discussed. Depression 09/29/2011 05/18/2017 Overview: 07/02/2013 Pt has a history of depression diagnosed at age 16, and treated by a DrJoann at [place]. She was treated for depression by Dr. [...] of this encounter (statuses as of 05/01/2023) [facility] History of Past illness Narrative* Problem [...] age 16, and treated by a at [place]. She has been treated for depression after [...] thyroid disorder treated by Dr. White, an director of blood in [place]. Patient took herself off of levothyroxine at [...] 0 11/12/2012 Overview: 03/19/2012Faby was seen at [facility] on March 06 for left flank pain. An ultrasound was done that revealed an intrauterine at 11 weeks 2 days. Urinalysis was negative. Patient denies any pain since then. [facility] ER report was faxed here and sent to Dr. Meeta Dhaliwal's office for review. 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 Patient states she was seen in [facility] 2 weeks ago for spotting during . She denies any bleeding since then. She denies any pain or cramping. She states she had an ultrasound done at [facility] that showed an intrauterine with an estimated due date of April 21. Patient signed a release of records form to obtain her records from her emergency room visit. Miscarriage precautions discussed. Depression 09/29/2011 05/18/2017 Overview: 07/02/2013 Pt has a history of depression diagnosed at age 16, and treated by a at [place]. She was treated for depression by Dr. [...] of this encounter (statuses as of 05/06/2023) [facility] History of Past illness Narrative* Problem [...] age 16, and treated by a at [place]. She has been treated for depression after [...] thyroid disorder treated by Dr. White, an director of blood in [place]. Patient took herself off of levothyroxine at [...] 0 11/12/2012 Overview: 03/19/2012She was seen at [facility] on March 06 for left flank pain. An ultrasound was done that revealed an intrauterine at 11 weeks 2 days. Urinalysis was negative. Patient denies any pain since then. [facility] ER report was faxed here and sent to Dr. Meeta Dhaliwal's office for review. 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 Patient states she was seen in [facility] 2 weeks ago for spotting during . She denies any bleeding since then. She denies any pain or cramping. She states she had an ultrasound done at [facility] that showed an intrauterine with an estimated due date of April 21. Patient signed a release of records form to obtain her records from her emergency room visit. Miscarriage precautions discussed. Depression 09/29/2011 05/18/2017 Overview: 07/02/2013 Pt has a history of depression diagnosed at age 16, and treated by a DrJoann at [place]. She was treated for depression by Dr. [...] of this encounter (statuses as of 07/21/2023) [facility] History of Past illness Narrative* Problem [...] 16, and treated by a DrJoann at [place]. She has been treated for depression after [...] thyroid disorder treated by Dr. White, an director of blood in [place]. Patient took herself off of levothyroxine at [...] 0 11/12/2012 Overview: 03/19/2012Ngoce was seen at [facility] on March 06 for left flank pain. An ultrasound was done that revealed an intrauterine at 11 weeks 2 days. Urinalysis was negative. Patient denies any pain since then. [facility] ER report was faxed here and sent to Dr. Meeta Dhaliwal's office for review. 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 Patient states she was seen in [facility] 2 weeks ago for spotting during . She denies any bleeding since then. She denies any pain or cramping. She states she had an ultrasound done at [facility] that showed an intrauterine with an estimated due date of April 21. Patient signed a release of records form to obtain her records from her emergency room visit. Miscarriage precautions discussed. Depression 09/29/2011 05/18/2017 Overview: 07/02/2013 Pt has a history of depression diagnosed at age 16, and treated by a DrJoann at [place]. She was treated for depression by Dr. [...] of this encounter (statuses as of 07/21/2023) [facility] History of Past illness Narrative* Problem [...] age 16, and treated by a at [place]. She has been treated for depression after [...] thyroid disorder treated by Dr. White, an director of blood in [place]. Patient took herself off of levothyroxine at [...] 0 11/12/2012 Overview: 03/19/2012Faby was seen at [facility] on March 06 for left flank pain. An ultrasound was done that revealed an intrauterine at 11 weeks 2 days. Urinalysis was negative. Patient denies any pain since then. [facility] ER report was faxed here and sent to Dr. Meeta Dhaliwal's office for review. 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 Patient states she was seen in [facility] 2 weeks ago for spotting during . She denies any bleeding since then. She denies any pain or cramping. She states she had an ultrasound done at [facility] that showed an intrauterine with an estimated due date of April 21. Patient signed a release of records form to obtain her records from her emergency room visit. Miscarriage precautions discussed. Depression 09/29/2011 05/18/2017 Overview: 07/02/2013 Pt has a history of depression diagnosed at age 16, and treated by a DrJoann at [place]. She was treated for depression by Dr. [...] of this encounter (statuses as of 07/24/2023) [facility] History of Past illness Narrative* Problem [...] age 16, and treated by a at [place]. She has been treated for depression after [...] thyroid disorder treated by Dr. White, an director of blood in [place]. Patient took herself off of levothyroxine at [...] 0 11/12/2012 Overview: 03/19/2012Faby was seen at [facility] on March 06 for left flank pain. An ultrasound was done that revealed an intrauterine at 11 weeks 2 days. Urinalysis was negative. Patient denies any pain since then. [facility] ER report was faxed here and sent to Dr. Meeta Dhaliwal's office for review. 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 Patient states she was seen in [facility] 2 weeks ago for spotting during . She denies any bleeding since then. She denies any pain or cramping. She states she had an ultrasound done at [facility] that showed an intrauterine with an estimated due date of April 21. Patient signed a release of records form to obtain her records from her emergency room visit. Miscarriage precautions discussed. Depression 09/29/2011 05/18/2017 Overview: 07/02/2013 Pt has a history of depression diagnosed at age 16, and treated by a DrJoann at [place]. She was treated for depression by Dr. [...] of this encounter (statuses as of 07/26/2023) [facility] History of Past illness Narrative* Problem [...] 16, and treated by a DrJoann at [place]. She has been treated for depression after [...] thyroid disorder treated by Dr. White, an director of blood in [place]. Patient took herself off of levothyroxine at [...] 0 11/12/2012 Overview: 03/19/2012Faby was seen at [facility] on March 06 for left flank pain. An ultrasound was done that revealed an intrauterine at 11 weeks 2 days. Urinalysis was negative. Patient denies any pain since then. [facility] ER report was faxed here and sent to Dr. Meeta Dhaliwal's office for review. 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 Patient states she was seen in [facility] 2 weeks ago for spotting during . She denies any bleeding since then. She denies any pain or cramping. She states she had an ultrasound done at [facility] that showed an intrauterine with an estimated due date of April 21. Patient signed a release of records form to obtain her records from her emergency room visit. Miscarriage precautions discussed. Depression 09/29/2011 05/18/2017 Overview: 07/02/2013 Pt has a history of depression diagnosed at age 16, and treated by a DrJoann at [place]. She was treated for depression by Dr. [...] of this encounter (statuses as of 08/01/2023) [facility] History of Past illness Narrative* Problem [...] age 16, and treated by a at [place]. She has been treated for depression after [...] thyroid disorder treated by Dr. White, an director of blood in [place]. Patient took herself off of levothyroxine at [...] 0 11/12/2012 Overview: 03/19/2012Ngoce was seen at [facility] on March 06 for left flank pain. An ultrasound was done that revealed an intrauterine at 11 weeks 2 days. Urinalysis was negative. Patient denies any pain since then. [facility] ER report was faxed here and sent to Dr. Meeta Dhaliwal's office for review. 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 Patient states she was seen in [facility] 2 weeks ago for spotting during . She denies any bleeding since then. She denies any pain or cramping. She states she had an ultrasound done at [facility] that showed an intrauterine with an estimated due date of April 21. Patient signed a release of records form to obtain her records from her emergency room visit. Miscarriage precautions discussed. Depression 09/29/2011 05/18/2017 Overview: 07/02/2013 Pt has a history of depression diagnosed at age 16, and treated by a at [place]. She was treated for depression by Dr. [...] of this encounter (statuses as of 08/03/2023) [facility] History of Past illness Narrative* Problem [...] age 16, and treated by a at [place]. She has been treated for depression after [...] thyroid disorder treated by Dr. White, an director of blood in [place]. Patient took herself off of levothyroxine at [...] 0 11/12/2012 Overview: 03/19/2012She was seen at [facility] on March 06 for left flank pain. An ultrasound was done that revealed an intrauterine at 11 weeks 2 days. Urinalysis was negative. Patient denies any pain since then. [facility] ER report was faxed here and sent to Dr. Meeta Dhaliwal's office for review. 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 Patient states she was seen in [facility] 2 weeks ago for spotting during . She denies any bleeding since then. She denies any pain or cramping. She states she had an ultrasound done at [facility] that showed an intrauterine with an estimated due date of April 21. Patient signed a release of records form to obtain her records from her emergency room visit. Miscarriage precautions discussed. Depression 09/29/2011 05/18/2017 Overview: 07/02/2013 Pt has a history of depression diagnosed at age 16, and treated by a DrJoann at [place]. She was treated for depression by Dr. [...] of this encounter (statuses as of 08/09/2023) [facility] History of Past illness Narrative* Problem [...] age 16, and treated by a at [place]. She has been treated for depression after [...] thyroid disorder treated by Dr. White, an director of blood in [place]. Patient took herself off of levothyroxine at [...] 0 11/12/2012 Overview: 03/19/2012Faby was seen at [facility] on March 06 for left flank pain. An ultrasound was done that revealed an intrauterine at 11 weeks 2 days. Urinalysis was negative. Patient denies any pain since then. [facility] ER report was faxed here and sent to Dr. Meeta Dhaliwal's office for review. 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 Patient states she was seen in [facility] 2 weeks ago for spotting during . She denies any bleeding since then. She denies any pain or cramping. She states she had an ultrasound done at [facility] that showed an intrauterine with an estimated due date of April 21. Patient signed a release of records form to obtain her records from her emergency room visit. Miscarriage precautions discussed. Depression 09/29/2011 05/18/2017 Overview: 07/02/2013 Pt has a history of depression diagnosed at age 16, and treated by a at [place]. She was treated for depression by Dr. [...] of this encounter (statuses as of 08/10/2023) [facility] History of Past illness Narrative* Problem [...] age 16, and treated by a at [place]. She has been treated for depression after [...] thyroid disorder treated by Dr. White, an director of blood in [place]. Patient took herself off of levothyroxine at [...] left flank pain 03/19/2012 0 11/12/2012 Overview: 03/19/2012Fbay was seen at [facility] on March 06 for left flank pain. An ultrasound was done that revealed an intrauterine at 11 weeks 2 days. Urinalysis was negative. Patient denies any pain since then. [facility] ER report was faxed here and sent to Dr. Meeta Dhaliwal's office for review. 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 Patient states she was seen in [facility] 2 weeks ago for spotting during . She denies any bleeding since then. She denies any pain or cramping. She states she had an ultrasound done at [facility] that showed an intrauterine with an estimated due date of April 21. Patient signed a release of records form to obtain her records from her emergency room visit. Miscarriage precautions discussed. Depression 09/29/2011 05/18/2017 Overview: 07/02/2013 Pt has a history of depression diagnosed at age 16, and treated by a DrJoann at [place]. She was treated for depression by Dr. [...] of this encounter (statuses as of 08/11/2023) [facility] History of Past illness Narrative* Problem [...] 16, and treated by a DrJoann at [place]. She has been treated for depression after [...] thyroid disorder treated by Dr. White, an director of blood in [place]. Patient took herself off of levothyroxine at [...] 0 11/12/2012 Overview: 03/19/2012Faby was seen at [facility] on March 06 for left flank pain. An ultrasound was done that revealed an intrauterine at 11 weeks 2 days. Urinalysis was negative. Patient denies any pain since then. [facility] ER report was faxed here and sent to Dr. Meeta Dhaliwal's office for review. 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 Patient states she was seen in [facility] 2 weeks ago for spotting during . She denies any bleeding since then. She denies any pain or cramping. She states she had an ultrasound done at [facility] that showed an intrauterine with an estimated due date of April 21. Patient signed a release of records form to obtain her records from her emergency room visit. Miscarriage precautions discussed. Depression 09/29/2011 05/18/2017 Overview: 07/02/2013 Pt has a history of depression diagnosed at age 16, and treated by a DrJoann at [place]. She was treated for depression by Dr. [...] of this encounter (statuses as of 08/14/2023) [facility] History of Past illness Narrative* Problem [...] age 16, and treated by a at [place]. She has been treated for depression after [...] thyroid disorder treated by Dr. White, an director of blood in [place]. Patient took herself off of levothyroxine at [...] 0 11/12/2012 Overview: 03/19/2012She was seen at [facility] on March 06 for left flank pain. An ultrasound was done that revealed an intrauterine at 11 weeks 2 days. Urinalysis was negative. Patient denies any pain since then. [facility] ER report was faxed here and sent to Dr. Meeta Dhaliwal's office for review. 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 Patient states she was seen in [facility] 2 weeks ago for spotting during . She denies any bleeding since then. She denies any pain or cramping. She states she had an ultrasound done at [facility] that showed an intrauterine with an estimated due date of April 21. Patient signed a release of records form to obtain her records from her emergency room visit. Miscarriage precautions discussed. Depression 09/29/2011 05/18/2017 Overview: 07/02/2013 Pt has a history of depression diagnosed at age 16, and treated by a DrJoann at [place]. She was treated for depression by Dr. [...] of this encounter (statuses as of 08/24/2023) [facility] History of Past illness Narrative* Problem [...] age 16, and treated by a at [place]. She has been treated for depression after [...] thyroid disorder treated by Dr. White, an director of blood in [place]. Patient took herself off of levothyroxine at [...] 0 11/12/2012 Overview: 03/19/2012Faby was seen at [facility] on March 06 for left flank pain. An ultrasound was done that revealed an intrauterine at 11 weeks 2 days. Urinalysis was negative. Patient denies any pain since then. [facility] ER report was faxed here and sent to Dr. Meeta Dhaliwal's office for review. 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 Patient states she was seen in [facility] 2 weeks ago for spotting during . She denies any bleeding since then. She denies any pain or cramping. She states she had an ultrasound done at [facility] that showed an intrauterine with an estimated due date of April 21. Patient signed a release of records form to obtain her records from her emergency room visit. Miscarriage precautions discussed. Depression 09/29/2011 05/18/2017 Overview: 07/02/2013 Pt has a history of depression diagnosed at age 16, and treated by a DrJoann at [place]. She was treated for depression by Dr. [...] of this encounter (statuses as of 09/01/2023) [facility] History of Past illness Narrative* Problem [...] age 16, and treated by a at [place]. She has been treated for depression after [...] thyroid disorder treated by Dr. White, an director of blood in [place]. Patient took herself off of levothyroxine at [...] 0 11/12/2012 Overview: 03/19/2012Faby was seen at [facility] on March 06 for left flank pain. An ultrasound was done that revealed an intrauterine at 11 weeks 2 days. Urinalysis was negative. Patient denies any pain since then. [facility] ER report was faxed here and sent to Dr. Meeta Dhaliwal's office for review. 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 Patient states she was seen in [facility] 2 weeks ago for spotting during . She denies any bleeding since then. She denies any pain or cramping. She states she had an ultrasound done at [facility] that showed an intrauterine with an estimated due date of April 21. Patient signed a release of records form to obtain her records from her emergency room visit. Miscarriage precautions discussed. Depression 09/29/2011 05/18/2017 Overview: 07/02/2013 Pt has a history of depression diagnosed at age 16, and treated by a DrJoann at [place]. She was treated for depression by Dr. [...] of this encounter (statuses as of 09/05/2023) [facility] August 21, 2023 5:17pm Note Date/Time August 21, 2023 5:0 0pm [facility] Medical Records Department [address] [place] [address] Discharge Summary 08/21/23 1659 MR#: [id number] Acct: [id number] Name: CAROLA HARDING Rep #:[id number] : 1990 32 From: Mar Mendes DO PCP: Dr. Jamari Zhang DO Status:AD IN Location: [place] [id number] Providers Date of Admission: 08/19/23 Date of [...] female who presented to the emergency departmentat [facility] on 08/17/2023 with about 24 hours of worsening fatigue, malaise, then acute onset of nausea and vomiting with intractable generalized abdominal cramping. She had no diarrhea, fever or chills. The abdominal symptoms started about 12 hours prior to presentation. She had been running errands in [place] and following this became more fatigued and [...] 08/20/23 14:18 RMA (Rec: 08/20/23 14:18 RMA [id number]) Nutrition Malnutrition Evidence of Malnutrition Exists Yes [...] Self Care Charges/Coding Visit Charges Inpatient E&M: 05615 Disch Hosp >30min 08/21/23 1717 <Electronically signed by Mar Mendes DO> Cosigner Signature (if applicable): CC: Dr. Jamari Zhang DO; Dr. Mar Mendes DO; Dr. Wilbert Vogel MD; Andi Callahan DO~ Signed [facility] Work Phone: Evaluation note* Diagnosis Generalized abdominal pain- Primary Abdominal pain, generalized Cough Underweight documented in this encounter [facility] note* Diagnosis Generalized abdominal pain- Primary Abdominal pain, generalized documented in this encounter [facility] noteNo assessment information [facility]WB[facility] Work Phone: Evaluation note* Diagnosis Closed displaced fracture of shaft of right clavicle with routine healing, subsequent encounter- Primary 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 [facility] Diagnosis 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, subsequent encounter documented in this encounter [facility] note* Diagnosis Acute non-recurrent pansinusitis- Primary documented in this encounter [facility] note* Diagnosis Sinobronchitis- Primary Unspecified sinusitis (chronic) documented in this encounter [facility] note* Diagnosis Iron deficiency anemia, unspecified iron deficiency anemia type- Primary documented in this encounter [facility] note* Diagnosis Iron deficiency anemia, unspecified iron deficiency anemia type- Primary Vaginal discharge Leukorrhea, not specified as infective Menstrual period late Other disorder of menstruation and other abnormal bleeding from female genital tract Acute cough Anxiety with depression Fatigue, unspecified type documented in this encounter [facility] note* Diagnosis Bacterial sinusitis- Primary Unspecified sinusitis (chronic) documented in this encounter [facility] note* Diagnosis Onset Date Resolution Status Influenza B acute Myocarditis acute [facility]* Diagnosis Hospital discharge follow-up- Primary Other follow-up examination Iron deficiency anemia, unspecified iron deficiency anemia type Leg cramps Cramp of limb 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 Hypokalemia Hypopotassemia Elevated TSH Nonspecific abnormal results of thyroid function study Subacute cough Cough Influenza B Influenza with other respiratory manifestations documented in this encounter [facility] note* Diagnosis Iron deficiency anemia, unspecified iron deficiency anemia type- Primary Anemia, unspecified type 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 Hospital discharge follow-up Other follow-up examination documented in this encounter [facility] note* Diagnosis Iron deficiency anemia, unspecified iron deficiency anemia type- Primary History of anemia Personal history of diseases of blood and blood-forming organs documented in this encounter [facility] note* Diagnosis Iron deficiency anemia, unspecified iron deficiency anemia type- Primary History of anemia Personal history of diseases of blood and blood-forming organs [facility]* Diagnosis Iron deficiency anemia, unspecified iron deficiency anemia type- Primary History of anemia Personal history of diseases of blood and blood-forming organs documented in this encounter [facility] note* Diagnosis Iron deficiency anemia, unspecified iron deficiency anemia type- Primary History of anemia Personal history of diseases of blood and blood-forming organs documented in this encounter [facility] note* Diagnosis Onset Date Resolution Status Cardiomyopathy acute Myocarditis acute Anemia acute Cardiomyopathy acute Myocarditis acute Abdominal pain acute Acute hypokalemia acute Dehydration acute Nausea and vomiting acute [facility] Work Phone: Evaluation note* Diagnosis Onset Date Resolution Status Cardiomyopathy acute Myocarditis acute Anemia acute Cardiomyopathy acute Myocarditis acute Abdominal pain acute Acute hypokalemia acute Anemia acute Cardiomyopathy acute Dehydration acute Hypotension acute Nausea and vomiting acute Severe malnutrition acute [facility] Work Phone: Evaluation note* Diagnosis Iron deficiency anemia, unspecified iron deficiency anemia type- Primary History of anemia Personal history of diseases of blood and blood-forming organs documented in this encounter [facility] note* Diagnosis Iron deficiency anemia, unspecified iron deficiency anemia type- Primary 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 Menorrhagia with irregular cycle Excessive or frequent menstruation Protein-calorie malnutrition, unspecified severity (HCC) documented in this encounter [facility] note* Diagnosis 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- Primary Underweight Iron deficiency anemia, unspecified iron deficiency anemia type Elevated TSH Nonspecific abnormal results of thyroid function study Fatigue, unspecified type documented in this encounter [facility] note* Diagnosis Subacute cough Cough documented in this encounter [facility] note* Diagnosis URI, acute- Primary Acute upper respiratory infections of unspecified site documented in this encounter [facility] note* Diagnosis Sore throat- Primary Acute pharyngitis Generalized abdominal pain Abdominal pain, generalized Acute gastroenteritis Other and unspecified noninfectious gastroenteritis and colitis documented in this encounter [facility] note* Diagnosis Chronic cough- Primary Cough Iron deficiency anemia, unspecified iron deficiency anemia type Underweight Mild protein-calorie malnutrition (HCC) Malnutrition of mild degree documented in this encounter [facility] note* Diagnosis Iron deficiency anemia, unspecified iron deficiency anemia type documented in this encounter [facility] note* Diagnosis History of anemia- Primary Personal history of diseases of blood and blood-forming organs Iron deficiency anemia, unspecified iron deficiency anemia type documented in this encounter [facility] note* Diagnosis History of anemia- Primary Personal history of diseases of blood and blood-forming organs Iron deficiency anemia, unspecified iron deficiency anemia type [facility] Diagnosis Iron deficiency anemia, unspecified iron deficiency anemia type- Primary History of anemia Personal history of diseases of blood and blood-forming organs [facility] Diagnosis History of anemia- Primary Personal history of diseases of blood and blood-forming organs Iron deficiency anemia, unspecified iron deficiency anemia type [facility] Diagnosis Chronic cough Cough [facility] Diagnosis History of anemia- Primary Personal history of diseases of blood and blood-forming organs Iron deficiency anemia, unspecified iron deficiency anemia type [facility] Diagnosis Iron deficiency anemia, unspecified iron deficiency anemia type- Primary Protein-calorie malnutrition, unspecified severity (HCC) 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 Additional Instructions Appears to have failed screw and hardware mid clavicle previously performed by Dr. Wilbert Quinn. Call for follow-up with orthopedic office for outpatient management.[facility] Work Phone: Hospital Discharge instructions Additional Instructions Your labs looked improved other than low potassium. I prescribed Zofran to take as needed for nausea and vomiting. Stay hydrated. If symptoms worsen return to ER.[facility] Work Phone: Reason for referral (narrative)* Diagnostic Procedure Only (Routine) - Authorized Specialty Diagnoses / Procedures Referred By Contnancy t Referred To Contact US IMAGING Diagnoses Generalized abdominal pain Procedures US ABD RT UPPER QUADRANT US ABDOMINAL REAL TIME W/IMAGE LIMITED Marlyn Bynum, BOTTLING MACHINE OPERATOR.SEAMER OPERATOR [address] [place] [address] Us Imaging Referral ID Status Reason Start Date Expiration Date Visits Requested Visits Authorized [id number] Authorized Auto-Generat ed Referral 09/06/2021 10/06/2022 1 1 * Consult, Test, Treat (Routine) - Authorized Specialty Diagnoses / Procedures Referred By Contac t Referred To Contact Nutrition Diagnoses Underweight Procedures CONSULT TO NUTRITION THERAPY OFFICE/OUTPATIENT [facility] 60-74 MINUTES Marlyn Bynum APRN.SEAMER OPERATOR [address] [place] [address] Referral ID Status Reason Start Date Expiration Date Visits Requested Visits Authorized [id number] Authorized PCP Requested Referral 09/06/2021 09/06/2022 1 1 [facility] for referral (narrative)* Diagnostic Procedure Only (Routine) - Closed Specialty Diagnoses / Procedures Referred By Contnancy t Referred To Contact XR IMAGING Diagnoses Closed displaced fracture of shaft of right clavicle with routine healing, subsequent encounter Procedures XR SHOULDER GENERAL 3V OR MORE AP/TRUE AP/OTHER RIGHT RADEX SHOULDER COMPLETE MINIMUM 2 VIEWS Tong Mederos MD [address] [place] [id number] Xr Imaging Referral ID Status Reason Start Date Expiration Date V isits Requested Visits Authorized [id number] Closed Auto-Generate d Referral 03/14/2022 04/13/2023 1 1 [facility] for visit Narrative* Diagnostic Procedure Only (Routine) - Closed Specialty Diagnoses / Procedures Referred By Contac t Referred To Contact XR IMAGING Diagnoses Closed displaced fracture of shaft of right clavicle with routine healing, subsequent encounter Procedures XR SHOULDER GENERAL 3V OR MORE AP/TRUE AP/OTHER RIGHT RADEX SHOULDER COMPLETE MINIMUM 2 VIEWS Tong Mederos MD [address] [place] [address] Xr Imaging Referral ID Status Reason Start Date Expiration Date V isits Requested Visits Authorized [id number] Closed Auto-Generate d Referral 03/14/2022 04/13/2023 1 1 [facility] Summary Purpose Family History No Family [...] No March 02, 2022 5:46pm Power of Bow Tacker No February 5:46pm Advance Directive Response Recorded Date/ Time Advance Directives No May 20, 2014 10:47am Living Will No March 08, 2022 11:55am Power of Bow Tacker No February 11:55am Advance Directive Response Recorded Date/ Time Advance Directives No May 20, 2014 10:47am Living Will No February 06 3 8:15pm Power of Bow Tacker No February 06, 023 8:15pm Advance Directive Response Recorded Date/ Time Advance Directives No May 20, 2014 9:47am Living Will No July 16 5:22pm Power of Bow Tacker No July 16, 2023 5:22pm Advance Directive Response Recorded Date/ Time Advance Directives No May 20, 2014 9:47am Living Will No August 17, 2023 6:08pm Power of Bow Tacker No August 16 6:08pm Advance Directive Response Recorded Date/ Time Advance Directives No May 20, 2014 10:47am Living Will No August 18, 2023 12:21am Power of Bow Tacker No August 17 12:21am Chief Complaint and [...] MYOCARDITIS; ELEVATED TROPONIN WITH SUSPECTED MYOCARDITIS; S/P [facility] 07/18 INTRACTABLE N/V, MALAISE, ABDOMINAL CRAMPING Reason for Visit Cardiomyopathy Myocarditis Anemia Cardiomyopathy Myocarditis Abdominal pain Acute hypokalemia Dehydration Nausea and vomiting Chief Complaint general illness ELEVATED TROPONIN WITH SUSPECTED MYOCARDITIS; ELEVATED TROPONIN WITH SUSPECTED MYOCARDITIS; ELEVATED TROPONIN WITH SUSPECTED MYOCARDITIS; ELEVATED TROPONIN WITH SUSPECTED MYOCARDITIS; ELEVATED TROPONIN WITH SUSPECTED MYOCARDITIS; S/P [facility] 07/18 INTRACTABLE N/V, MALAISE, ABDOMINAL CRAMPING INTRACTABLE [...] COMPLEX 45 MINS Tong Mederos MD [address] [place] [address] [facility] [place] [address] Referral ID Status Reason Start Date Expiration Date Visits Requested Visits Authorized [id number] Pending Review Auto-Generat ed Referral 03/14/2022 03/14/2023 1 1 Specialty Diagnoses / Procedures Referred By Prince dupont Referred To Contact XR IMAGING Diagnoses Closed displaced fracture of shaft of right clavicle with routine healing, subsequent encounter Procedures XR SHOULDER GENERAL 3V OR MORE AP/TRUE AP/OTHER RIGHT RADEX SHOULDER COMPLETE MINIMUM 2 VIEWS Tong Mederos MD [address] [place] [address] Xr Imaging Referral ID Status Reason Start Date Expiration Date V isits Requested Visits Authorized [id number] Closed Auto-Generate d Referral 03/14/2022 04/13/2023 1 1 Specialty Diagnoses / Procedures Referred By Prince dupont Referred To Contact Hematology Diagnoses Iron deficiency anemia, unspecified iron deficiency anemia type 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 Hospital discharge follow-up Procedures CONSULT TO HEMATOLOGY OFFICE/OUTPATIENT [facility] 60 MINUTES Marlyn Estrada APRN.SEAMER OPERATOR [address] [place] [address] Referral ID Status Reason Start Date Expiration Date Visits Requested Visits Authorized [id number] Authorized PCP Requested Referral 07/21/2023 07/20/2024 1 1 Specialty Diagnoses / Procedures Referred By Contac t Referred To Contact Gastroenterology Diagnoses Iron deficiency anemia, unspecified iron deficiency anemia type Anemia, unspecified type 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 Hospital discharge follow-up Procedures CONSULT TO GASTROENTEROLOGY OFFICE/OUTPATIENT [facility] 60 MINUTES Yaneth Davenport [address] [place] [address] Referral ID Status Reason Start Date Expiration Date Visits Requested Visits Authorized [id number] Authorized PCP Requested Referral 07/25/2023 07/24/2024 1 1 Specialty Diagnoses / Procedures Referred By Contac t Referred To Contact CT IMAGING Diagnoses Chronic cough Procedures CT CHEST WO IVCON DIAGNOSTIC COMPUTED TOMOGRAPHY THORAX W/O CNTRST Marlyn Estrada APRN.SEAMER OPERATOR [address] [place] [address] [place] [id number] Referral ID Status Reason Start Date Expiration Date Visits Requested Visits Authorized [id number] Pending Review Auto-Generat ed Referral 07/08/2024 08/07/2025 1 1 Specialty Diagnoses / Procedures Referred By Contnancy t Referred To Contact Hematology Diagnoses Iron deficiency anemia, unspecified iron deficiency anemia type Procedures CONSULT TO HEMATOLOGY OFFICE/OUTPATIENT [facility] 60 MINUTES Marlyn Estrada APRN.SEAMER OPERATOR [address] [place] [address] Referral ID Status Reason Start Date Expiration Date Visits Requested Visits Authorized [id number] Authorized PCP Requested Referral 07/08/2024 07/08/2025 1 1 Additional Source Comments INFORMATION SOURCE (unrecogn ized section and content) DATE CREATED AUTHOR 12/05/2017 [facility] DATE CREATED AUTHOR AUTHOR'S CELEIZ ATION 12/08/2018 On license of [facility] ([place]) DATE CREATED AUTHOR AUTHOR'S ORGANIZ ATION 06/01/2023 [facility] DATE CREATED AUTHOR AUTHOR'S ORGANIZ ATION 12/05/2024 [facility] DATE CREATED AUTHOR AUTHOR'S ORGANIZ ATION 12/23/2024 [facility] Source Comments (unrecognize d section and content) In the event this informatio n is protected by the Federal Confidentiality of Alcohol and Drug Abuse Patient Records regulations: The Federal rules restrict any use of the information to criminally investigate or prosecute any alcohol or drug abuse patient.[facility] the event this information is protected by the Federal Confidentiality of Alcohol and Drug Abuse Patient Records regulations: The Federal rules restrict any use of the information to criminally investigate or prosecute any alcohol or drug abuse patient.[facility] HospitalIn the event this information is protected by the Federal Confidentiality of Alcohol and Drug Abuse Patient Records regulations: The Federal rules restrict any use of the information to criminally investigate or prosecute any alcohol or drug abuse patient.[facility] HospitalIn the event this information is protected by the Federal Confidentiality of Alcohol and Drug Abuse Patient Records regulations: The Federal rules restrict any use of the information to criminally investigate or prosecute any alcohol or drug abuse patient.[facility] HospitalIn the event this information is protected by the Federal Confidentiality of Alcohol and Drug Abuse Patient Records regulations: The Federal rules restrict any use of the information to criminally investigate or prosecute any alcohol or drug abuse patient.[facility] HospitalIn the event this information is protected by the Federal Confidentiality of Alcohol and Drug Abuse Patient Records regulations: The Federal rules restrict any use of the information to criminally investigate or prosecute any alcohol or drug abuse patient.[facility] HospitalIn the event this information is protected by the Federal Confidentiality of Alcohol and Drug Abuse Patient Records regulations: The Federal rules restrict any use of the information to criminally investigate or prosecute any alcohol or drug abuse patient.[facility] HospitalIn the event this information is protected by the Federal Confidentiality of Alcohol and Drug Abuse Patient Records regulations: The Federal rules restrict any use of the information to criminally investigate or prosecute any alcohol or drug abuse patient.[facility] HospitalIn the event this information is protected by the Federal Confidentiality of Alcohol and Drug Abuse Patient Records regulations: The Federal rules restrict any use of the information to criminally investigate or prosecute any alcohol or drug abuse patient.[facility] HospitalIn the event this information is protected by the Federal Confidentiality of Alcohol and Drug Abuse Patient Records regulations: The Federal rules restrict any use of the information to criminally investigate or prosecute any alcohol or drug abuse patient.[facility] HospitalIn the event this information is protected by the Federal Confidentiality of Alcohol and Drug Abuse Patient Records regulations: The Federal rules restrict any use of the information to criminally investigate or prosecute any alcohol or drug abuse patient.[facility] HospitalIn the event this information is protected by the Federal Confidentiality of Alcohol and Drug Abuse Patient Records regulations: The Federal rules restrict any use of the information to criminally investigate or prosecute any alcohol or drug abuse patient.[facility] HospitalIn the event this information is protected by the Federal Confidentiality of Alcohol and Drug Abuse Patient Records regulations: The Federal rules restrict any use of the information to criminally investigate or prosecute any alcohol or drug abuse patient.[facility] HospitalIn the event this information is protected by the Federal Confidentiality of Alcohol and Drug Abuse Patient Records regulations: The Federal rules restrict any use of the information to criminally investigate or prosecute any alcohol or drug abuse patient.[facility] HospitalIn the event this information is protected by the Federal Confidentiality of Alcohol and Drug Abuse Patient Records regulations: The Federal rules restrict any use of the information to criminally investigate or prosecute any alcohol or drug abuse patient.[facility] HospitalIn the event this information is protected by the Federal Confidentiality of Alcohol and Drug Abuse Patient Records regulations: The Federal rules restrict any use of the information to criminally investigate or prosecute any alcohol or drug abuse patient.[facility] HospitalIn the event this information is protected by the Federal Confidentiality of Alcohol and Drug Abuse Patient Records regulations: The Federal rules restrict any use of the information to criminally investigate or prosecute any alcohol or drug abuse patient.[facility] HospitalIn the event this information is protected by the Federal Confidentiality of Alcohol and Drug Abuse Patient Records regulations: The Federal rules restrict any use of the information to criminally investigate or prosecute any alcohol or drug abuse patient.[facility] HospitalIn the event this information is protected by the Federal Confidentiality of Alcohol and Drug Abuse Patient Records regulations: The Federal rules restrict any use of the information to criminally investigate or prosecute any alcohol or drug abuse patient.[facility] HospitalIn the event this information is protected by the Federal Confidentiality of Alcohol and Drug Abuse Patient Records regulations: The Federal rules restrict any use of the information to criminally investigate or prosecute any alcohol or drug abuse patient.[facility] HospitalIn the event this information is protected by the Federal Confidentiality of Alcohol and Drug Abuse Patient Records regulations: The Federal rules restrict any use of the information to criminally investigate or prosecute any alcohol or drug abuse patient.[facility] HospitalIn the event this information is protected by the Federal Confidentiality of Alcohol and Drug Abuse Patient Records regulations: The Federal rules restrict any use of the information to criminally investigate or prosecute any alcohol or drug abuse patient.[facility] HospitalIn the event this information is protected by the Federal Confidentiality of Alcohol and Drug Abuse Patient Records regulations: The Federal rules restrict any use of the information to criminally investigate or prosecute any alcohol or drug abuse patient.[facility] HospitalIn the event this information is protected by the Federal Confidentiality of Alcohol and Drug Abuse Patient Records regulations: The Federal rules restrict any use of the information to criminally investigate or prosecute any alcohol or drug abuse patient.[facility] HospitalIn the event this information is protected by the Federal Confidentiality of Alcohol and Drug Abuse Patient Records regulations: The Federal rules restrict any use of the information to criminally investigate or prosecute any alcohol or drug abuse patient.[facility] HospitalIn the event this information is protected by the Federal Confidentiality of Alcohol and Drug Abuse Patient Records regulations: The Federal rules restrict any use of the information to criminally investigate or prosecute any alcohol or drug abuse patient.[facility] HospitalIn the event this information is protected by the Federal Confidentiality of Alcohol and Drug Abuse Patient Records regulations: The Federal rules restrict any use of the information to criminally investigate or prosecute any alcohol or drug abuse patient.[facility] HospitalIn the event this information is protected by the Federal Confidentiality of Alcohol and Drug Abuse Patient Records regulations: The Federal rules restrict any use of the information to criminally investigate or prosecute any alcohol or drug abuse patient.[facility] HospitalIn the event this information is protected by the Federal Confidentiality of Alcohol and Drug Abuse Patient Records regulations: The Federal rules restrict any use of the information to criminally investigate or prosecute any alcohol or drug abuse patient.[facility] HospitalIn the event this information is protected by the Federal Confidentiality of Alcohol and Drug Abuse Patient Records regulations: The Federal rules restrict any use of the information to criminally investigate or prosecute any alcohol or drug abuse patient.[facility] HospitalIn the event this information is protected by the Federal Confidentiality of Alcohol and Drug Abuse Patient Records regulations: The Federal rules restrict any use of the information to criminally investigate or prosecute any alcohol or drug abuse patient.[facility] HospitalIn the event this information is protected by the Federal Confidentiality of Alcohol and Drug Abuse Patient Records regulations: The Federal rules restrict any use of the information to criminally investigate or prosecute any alcohol or drug abuse patient.[facility] HospitalIn the event this information is protected by the Federal Confidentiality of Alcohol and Drug Abuse Patient Records regulations: The Federal rules restrict any use of the information to criminally investigate or prosecute any alcohol or drug abuse patient.[facility] HospitalIn the event this information is protected by the Federal Confidentiality of Alcohol and Drug Abuse Patient Records regulations: The Federal rules restrict any use of the information to criminally investigate or prosecute any alcohol or drug abuse patient.[facility] HospitalIn the event this information is protected by the Federal Confidentiality of Alcohol and Drug Abuse Patient Records regulations: The Federal rules restrict any use of the information to criminally investigate or prosecute any alcohol or drug abuse patient.[facility] HospitalIn the event this information is protected by the Federal Confidentiality of Alcohol and Drug Abuse Patient Records regulations: The Federal rules restrict any use of the information to criminally investigate or prosecute any alcohol or drug abuse patient.[facility] HospitalIn the event this information is protected by the Federal Confidentiality of Alcohol and Drug Abuse Patient Records regulations: The Federal rules restrict any use of the information to criminally investigate or prosecute any alcohol or drug abuse patient.[facility] HospitalIn the event this information is protected by the Federal Confidentiality of Alcohol and Drug Abuse Patient Records regulations: The Federal rules restrict any use of the information to criminally investigate or prosecute any alcohol or drug abuse patient.[facility] HospitalIn the event this information is protected by the Federal Confidentiality of Alcohol and Drug Abuse Patient Records regulations: The Federal rules restrict any use of the information to criminally investigate or prosecute any alcohol or drug abuse patient.[facility] HospitalIn the event this information is protected by the Federal Confidentiality of Alcohol and Drug Abuse Patient Records regulations: The Federal rules restrict any use of the information to criminally investigate or prosecute any alcohol or drug abuse patient.[facility] HospitalIn the event this information is protected by the Federal Confidentiality of Alcohol and Drug Abuse Patient Records regulations: The Federal rules restrict any use of the information to criminally investigate or prosecute any alcohol or drug abuse patient.[facility] HospitalIn the event this information is protected by the Federal Confidentiality of Alcohol and Drug Abuse Patient Records regulations: The Federal rules restrict any use of the information to criminally investigate or prosecute any alcohol or drug abuse patient.[facility] HospitalIn the event this information is protected by the Federal Confidentiality of Alcohol and Drug Abuse Patient Records regulations: The Federal rules restrict any use of the information to criminally investigate or prosecute any alcohol or drug abuse patient.[facility] HospitalIn the event this information is protected by the Federal Confidentiality of Alcohol and Drug Abuse Patient Records regulations: The Federal rules restrict any use of the information to criminally investigate or prosecute any alcohol or drug abuse patient.[facility] HospitalIn the event this information is protected by the Federal Confidentiality of Alcohol and Drug Abuse Patient Records regulations: The Federal rules restrict any use of the information to criminally investigate or prosecute any alcohol or drug abuse patient.[facility] HospitalIn the event this information is protected by the Federal Confidentiality of Alcohol and Drug Abuse Patient Records regulations: The Federal rules restrict any use of the information to criminally investigate or prosecute any alcohol or drug abuse patient.[facility] Reason for Visit (unrecogniz ed section [...] NEW HIGH MDM 60 MINUTES Marlyn Estrada APRN.SEAMER OPERATOR [address] [place] [address] Referral ID Status Reason Start Date Expiration Date V isits Requested Visits Authorized [id number] Closed PCP Requested Referral 07/21/2023 07/20/2024 1 1 Reason Comments Non-Chemotherapy Treatment Specialty Diagnoses / Procedures Referred By Contac t Referred To Contact Diagnoses History of anemia Iron deficiency anemia, unspecified iron deficiency anemia type Procedures IRON SUCROSE INJECTION PER 1 MG Ethel, Yaneth [address] [place] [address] [facility] [address] [place] [address] Referral ID Status Reason Start Date Expiration Date V isits Requested Visits Authorized [id number] Authorized 07/25/2023 06/11/2024 99 99 Specialty Diagnoses / Procedures Referred By Contac t Referred To Contact Diagnoses History of anemia Iron deficiency anemia, unspecified iron deficiency anemia type Procedures IRON SUCROSE INJECTION PER 1 MG Davenport, Yaneth [address] [place] [address] [facility] [address] [place] [address] Reason Comments Benefits Investigation Reason Comments Social Work Services Reason Comments Established Patient Reason Comments F/U 3 Month Reason Comments Patient Update Reason Comments ER F/U Reason Comments Cough sore throat, headach e, bodyaches x 1 day Reason Comments [facility] follow up Reason Comments Appointment Specialty Diagnoses / Procedures Referred By Contac t Referred To Contact Hematology Diagnoses Iron deficiency anemia, unspecified iron deficiency anemia type Procedures CONSULT TO HEMATOLOGY OFFICE/OUTPATIENT [facility] 60 MINUTES Marlyn Estrada, BOTTLING MACHINE OPERATOR.SEAMER OPERATOR [address] [place] [address] Referral ID Status Reason Start Date Expiration Date V isits Requested Visits Authorized [id number] Closed PCP Requested Referral 07/08/2024 07/08/2025 1 1 Specialty Diagnoses / Procedures Referred By Contac t Referred To Contact Diagnoses History of anemia Iron deficiency anemia, unspecified iron deficiency anemia type Procedures IRON SUCROSE INJECTION PER 1 MG Davenport, Yaneth [address] [place] [address] [facility] [address] [place] [address] Referral ID Status Reason Start Date Expiration Date V isits Requested Visits Authorized [id number] Authorized 07/09/2024 06/11/2025 99 99 Specialty Diagnoses / Procedures Referred By Contac t Referred To Contact Diagnoses History of anemia Iron deficiency anemia, unspecified iron deficiency anemia type Procedures IRON SUCROSE INJECTION PER 1 MG Davenport, Yaneth [address] [place] [address] [facility] [address] [place] [address] Specialty Diagnoses / Procedures Referred By Contac t Referred To Contact Diagnoses History of anemia Iron deficiency anemia, unspecified iron deficiency anemia type Procedures IRON SUCROSE INJECTION PER 1 MG Davenport, Yaneth [address] [place] [address] Phone: tel: fax: Hematology/Oncology [address] [place] [address] Phone: tel: fax: Reason Comments Radiology CT Specialty Diagnoses / Procedures Referred By Contnancy t Referred To Contact CT IMAGING Diagnoses Chronic cough Procedures CT CHEST WO IVCON DIAGNOSTIC COMPUTED TOMOGRAPHY THORAX W/O CNTRST Marlyn Estrada, STEFANIE.SEAMER OPERATOR [address] [place] [address] Phone: tel: fax: [place] [address] Referral ID Status Reason Start Date Expiration Date V isits Requested Visits Authorized [id number] Closed Auto-Generate d Referral 07/08/2024 09/06/2024 1 1 Reason Comments Anxiety And depression Care Teams (unrecognized sec tion and content) Ring Barker Operator Relationship Specialty Start Date End Date Jamari Zhang DO [address] [place] [address] PCP - General Family Practice 05/05/18 Ring Barker Operator Relationship Specialty Start Date End Date Jamari Zhang DO [address] [place] [address] PCP - General Family Practice 05/05/18 Ring Barker Operator Relationship Specialty Start Date End Date Jamari Zhang DO [address] [place] [address] PCP - General Family Medicine 05/05/18 Ring Barker Operator Relationship Specialty Start Date End Date Jamari Zhang DO [address] [place] [address] PCP - General Family Medicine 05/05/18 Ring Barker Operator Relationship Specialty Start Date End Date Jamari Zhang DO [address] [place] [address] PCP - General Family Medicine 05/05/18 Team Status: Active Member Role Status Dates Dr. Jamari Zhang DO Family Provider Active Dr. Jamari Zhang , DO Primary Care Provider Active Team Status: Inactive Member Role Status Dates Dr. Jamari Zhang , DO Primary Care Provider Active Dr. Ming Ziegler MD Emergency Provider Active Ring Barker Operator Relationship Specialty Start Date End Date Jamari Zhang DO [address] [facility] [place] [address] PCP - General Family Medicine 05/05/18 Ring Barker Operator Relationship Specialty Start Date End Date Jamari Zhang DO [address] [facility] [place] [address] PCP - [facility] 05/05/18 Ring Barker Operator Relationship Specialty Start Date End Date Jamari Zhang DO [address] [facility] [place] [address] PCP - [facility] Medicine 05/05/18 Ring Barker Operator Relationship Specialty Start Date End Date Jamari Zhang DO [address] [facility] [place] [address] PCP - General [facility] Medicine 05/05/18 Team Status: Inactive Member Role Status Dates Dr. Jamari Zhang DO Primary Care Provider Active Dr. Bob Woods , Emergency Provider Active Team Status: Active Member Role Status Dates Dr. Jamari Zhang DO Primary Care Provider Active Dr. Lang Atkinson , DO Emergency Provider Active Dr. Kaushal Blackwell DO Admit Provider, Attending Pr ovider Active Ring Barker Operator Relationship Specialty Start Date End Date Jamari Zhang DO [address] [facility] [place] [address] PCP - General [facility] Medicine 05/05/18 Ring Barker Operator Relationship Specialty Start Date End Date Jamari Zhang DO [address] [facility] [place] [address] PCP - General Family Medicine 05/05/18 Ring Barker Operator Relationship Specialty Start Date End Date Jamari Zhang DO [address] [facility] [place] [address] PCP - General Family Medicine 05/05/18 Ring Barker Operator Relationship Specialty Start Date End Date Jamari Zhang DO [address] [facility] [place] [address] PCP - General Family Medicine 05/05/18 Ring Barker Operator Relationship Specialty Start Date End Date Jamari Zhang DO [address] [facility] [place] [address] PCP - General Family Medicine 05/05/18 Ring Barker Operator Relationship Specialty Start Date End Date Jamari Zhang DO [address] [facility] [place] [address] PCP - General Family Medicine 05/05/18 Ring Barker Operator Relationship Specialty Start Date End Date Jamari Zhang DO [address] [facility] [place] [address] PCP - General Family Medicine 05/05/18 Ring Barker Operator Relationship Specialty Start Date End Date Jamari Zhang DO [address] [facility] [place] [address] PCP - General Family Medicine 05/05/18 Ring Barker Operator Relationship Specialty Start Date End Date Jamari Zhang DO [address] [facility] [place] [address] PCP - General Family Medicine 05/05/18 Ring Barker Operator Relationship Specialty Start Date End Date Jamari Zhang DO [address] [place] [address] PCP - General Family Medicine 05/05/18 Team Status: Active Member Role Status Dates Dr. Jamari Zhagn DO Primary Care Provider Active Dr. Lang [...] MD Admit Provider, Other Provider Active Dr. Nitihs Freire , DO Attending Provider, Other Provider [...] Nitish Freire , DO Other Provider Active Ring Barker Operator Relationship Specialty Start Date End Date Jamari Zhang DO [address] [place] [address] PCP - General Family Medicine 05/05/18 Ring Barker Operator Relationship Specialty Start Date End Date Jamari Zhang DO [address] [place] [address] PCP - General Family Medicine 05/05/18 Ring Barker Operator Relationship Specialty Start Date End Date Jamari Zhang DO [address] [facility] [place] [address] PCP - General Family Medicine 05/05/18 Ring Barker Operator Relationship Specialty Start Date End Date Jamari Zhang DO [address] [facility] [place] [address] PCP - General Family Medicine 05/05/18 Ring Barker Operator Relationship Specialty Start Date End Date Jamari Zhang DO [address] [facility] [place] [address] PCP - General Family Medicine 05/05/18 Ring Barker Operator Relationship Specialty Start Date End Date Jamari Zhang DO [address] [facility] [place] [address] PCP - General Family Medicine 05/05/18 Ring Barker Operator Relationship Specialty Start Date End Date Jamari Zhang DO [address] [facility] [place] [address] PCP - General Family Medicine 05/05/18 Marlyn Estrada, BOTTLING MACHINE OPERATOR.SEAMER OPERATOR [address] [facility] [place] [address] Foam Gun Operator Family Medicine 05/19/24 Kat Peres, BOTTLING MACHINE OPERATOR.SEAMER OPERATOR [address] [facility] [place] [address] Foam Gun Operator Family Medicine 05/19/24 Ring Barker Operator Relationship Specialty Start Date End Date Jamari Zhang DO [address] [facility] [place] [address] PCP - General Family Medicine 05/05/18 Marlyn Estrada, BOTTLING MACHINE OPERATOR.SEAMER OPERATOR [address] [facility] [place] [address] Foam Gun Operator Family Medicine 05/19/24 Kat Peres APRN.SEAMER OPERATOR [address] [facility] [place] [address] Foam Gun Operator Family Medicine 05/19/24 Ring Barker Operator Relationship Specialty Start Date End Date Jamari Zhang DO [address] [facility] [place] [address] PCP - General Family Medicine 05/05/18 Marlyn Estrada BOTTLING MACHINE OPERATOR.SEAMER OPERATOR [address] [facility] [place] [address] Foam Gun Operator [facility] 05/19/24 Kat Peres, BOTTLING MACHINE OPERATOR.SEAMER OPERATOR [address] [facility] [place] [address] [facility] Ring Barker Operator Relationship Specialty Start Date End Date Jamari Zhang DO [address] [facility] [place] [address] PCP - General Family Medicine 05/05/18 Marlyn Estrada, BOTTLING MACHINE OPERATOR.SEAMER OPERATOR [address] [facility] [place] [address] Foam Gun Operator [facility] 05/19/24 Kat Peres, BOTTLING MACHINE OPERATOR.SEAMER OPERATOR [address] [facility] [place] [address] [facility] 05[facility] Ring Barker Operator Relationship Specialty Start Date End Date Jamari Zhang DO [address] [place] [address] PCP - General Family Medicine 05/05/18 Marlyn Estrada, BOTTLING MACHINE OPERATOR.SEAMER OPERATOR [address] [facility] [place] [address] [employer] [facility] 05/19/24 Kat Peres, BOTTLING MACHINE OPERATOR.SEAMER OPERATOR [address] [place] [address] [facility] 05/19/24 Ring Barker Operator Relationship Specialty Start Date End Date Jamari Zhang DO [address] [place] [address] PCP - General Family Medicine 05/05/18 Marlyn Estrada, BOTTLING MACHINE OPERATOR.SEAMER OPERATOR [address] [place] [address] [facility] [facility] 05/19/24 Kat Peres, BOTTLING MACHINE OPERATOR.SEAMER OPERATOR [address] [place] [address] [facility] Ring Barker Operator Relationship Specialty Start Date End Date Jamari Zhang DO [address] [place] [address] PCP - General Family Medicine 05/05/18 Marlyn Estrada, BOTTLING MACHINE OPERATOR.SEAMER OPERATOR [address] [place] [address] [employer] [facility] 05/19/24 Kat Peres, BOTTLING MACHINE OPERATOR.SEAMER OPERATOR [address] [place] [address] Foam Gun Operator Family [facility] 05/19/24 Ring Barker Operator Relationship Specialty Start Date End Date Jamari Zhang DO [address] [facility] [place] [address] PCP - General Family Medicine 05/05/18 Marlyn Estrada, BOTTLING MACHINE OPERATOR.SEAMER OPERATOR [address] [place] [address] [facility] [facility] 05/19/24 JaKat, BOTTLING MACHINE OPERATOR.SEAMER OPERATOR [address] [place] [address] [facility] 05/19/24 Ring Barker Operator Relationship Specialty Start Date End Date Jamari Zhang DO [address] [place] [address] PCP - General Family Medicine 05/05/18 Marlyn Estrada, BOTTLING MACHINE OPERATOR.SEAMER OPERATOR [address] [place] [address] [employer] [facility] 05/19/24 Kat Peres, BOTTLING MACHINE OPERATOR.SEAMER OPERATOR [address] [place] [address] [employer] [facility] 05/19/24 Ring Barker Operator Relationship Specialty Start Date End Date Jamari Zhang DO [address] [place] [address] PCP - General Family Medicine 05/05/18 Kat Peres, BOTTLING MACHINE OPERATOR.SEAMER OPERATOR [address] [facility] [place] [address] [employer] [facility] Family Medicine 05/19/24 Ring Barker Operator Relationship Specialty Start Date End Date Jamari Zhang DO [address] [facility] [place] [address] PCP - General Family Medicine 05/05/18 Marlyn Estrada APRN.SEAMER OPERATOR [address] [place] [address] [employer] Gun Operator Family [facility] 05/19/24 08/30/24 Kat Peres, BOTTLING MACHINE OPERATOR.SEAMER OPERATOR [address] [place] [address] [facility] 05/19/24 Ring Barker Operator Relationship Specialty Start Date End Date Jamari Zhang DO [address] [place] [address] PCP - General Family Medicine 05/05/18 Kat Peres, BOTTLING MACHINE OPERATOR.SEAMER OPERATOR [address] [place] [address] [facility] 05/19/24 Virginia Faith BOTTLING MACHINE OPERATOR.SEAMER OPERATOR [address] [place] [address] [facility] 11/25/24 Ring Barker Operator Relationship Specialty Start Date End Date Jamari Zhang DO [address] [place] [address] PCP - General Family Medicine 05/05/18 Kat Peres, BOTTLING MACHINE OPERATOR.SEAMER OPERATOR [address] [facility] [place] [address] [facility] [facility] 05/19/24 Virginia Faith APRN.SEAMER OPERATOR [address] [place], [place] [address] [employer] [facility] 11/25/24 Goals (unrecognized section and [...] BE BASED ON THE PRIMARY CLINICAL RECORDS. [employer] [facility]. provides no warranty or guarantee of the accuracy or completeness of information in this document.
[2024-12-24] MEDS: HYDROcodone Bitartrate/Apap 5/325 Tablet PO (23:06)
--- NOTE | 2024-12-24 23:14 | RAD_ITS ---
PROCEDURE: ANKLE MIN 3 VIEWS 12/24/2024 REASON FOR EXAM: PAIN TECHNIQUE: ANKLE MIN 3 VIEWS COMPARISON: No FINDINGS: Old lateral malleolar fracture. Lateral ankle swelling. No acute fracture or dislocation. RAD/Ankle min 3 Views IMPRESSION: Soft tissue injury. Reading Location: [place] [address]
--- NOTE | 2024-12-24 23:14 | RAD_ITS ---
PROCEDURE: ANKLE MIN 3 VIEWS 12/24/2024 REASON FOR EXAM: PAIN TECHNIQUE: ANKLE MIN 3 VIEWS COMPARISON: No FINDINGS: Old lateral malleolar fracture. Lateral ankle swelling. No acute fracture or dislocation. RAD/Ankle min 3 Views IMPRESSION: Soft tissue injury. Reading Location: [place] [address]
--- NOTE | 2024-12-24 23:14 | RAD_ITS ---
PROCEDURE: FOOT MIN 3 VIEWS 12/24/2024 REASON FOR EXAM: PAIN TECHNIQUE: FOOT MIN 3 VIEWS COMPARISON: No FINDINGS: No fracture or dislocation. RAD/Foot min 3 Views IMPRESSION: No acute injury. [facility]
--- NOTE | 2024-12-24 23:14 | RAD_ITS ---
PROCEDURE: FOOT MIN 3 VIEWS 12/24/2024 REASON FOR EXAM: PAIN TECHNIQUE: FOOT MIN 3 VIEWS COMPARISON: No FINDINGS: No fracture or dislocation. RAD/Foot min 3 Views IMPRESSION: No acute injury. [facility]
--- NOTE | 2024-12-25 00:54 | EDS_ITS ---
HPI History of Present Illness Chief Complaint: Lower Extremity Injury Informant: patient and spouse/S.O. Narrative Narrative: Patient is a 34-year-old female with past medical history of cardiomyopathy. She states that roughly 30 minutes to an hour prior to arrival she was at her friend's house walking down the stairs when she slipped and rolled her right ankle. She states she has had pain and swelling and difficulty ambulating since the fall. She denies striking her head or any loss of consciousness or history of bleeding disorder or blood thinner use. She states that with concern for fracture based on the fall swelling and pain she comes in for evaluation [facility] Medical History Autoimmune gastritis Anxiety and depression Chronic anemia Myocarditis Painful orthopaedic hardware Clavicle fracture History of thyroid disorder Home Medications ?Medication ?Instructions ?Recorded ?Last Taken ?Type ascorbic acid (vitamin C) 500 mg 500 mg PO BID supplem ent 07/13/23 07/10/23 History tablet (Vitamin C) guaifenesin 1 tab PO Q6H PRN cold sympto ms 07/13/23 07/12/23 History sertraline 25 mg tablet 25 mg PO DAILY 07/13/2306/13 History ondansetron 4 mg disintegrating 4 mg PO Q6H PRN nausea and 08/17/23 Unknown Rx tablet vomiting #12 tabs mecobalamin (vitamin B12) 1,000 1,000 mcg PO DAILY 06/04 Unknown History mcg chewable tablet prednisone 20 mg tablet 40 mg PO BID 12/22/23 Unknow n History pantoprazole 40 mg tablet,delayed 40 mg PO BID #60 tab s 02/21/24 Unknown Rx release albuterol sulfate 90 mcg/actuation 2 puff inhalation Q 4H PRN PRN 04/02/24 Unknown Rx aerosol inhaler (Ventolin HFA) Wheezing/SOB #1 device benzonatate 100 mg capsule 200 mg (2 x 100 mg) PO TID PRN 04/02/24 Unknown Rx cough 10 days #60 caps hydrocodone-acetaminophen 5-325mg 1 tab PO Q6H PRN jean-paul n 3 days #12 12/25/24 Unknown Rx 5mg-325mg tabs Allergy/AdvReac Type Severity Reaction Status Date / Time amoxicillin (Amoxicillin) Allergy Hives Verified 12/24/24 22:43 cefixime (From Suprax) Allergy Hives Verified 12/24/24 22:43 lactulose Allergy Hives Verified 12/24/24 22:43 oxycodone HCl (From Percocet) AdvReac Abd Verified 12/24/24 22:43 cramps/diarrhea Family History Mother Diabetes Heart disease Hypertension CVA (cerebral vascular accident) HLD (hyperlipidemia) Father Osteoarthritis Surgical History S/P ORIF (open reduction internal fixation) fracture History of tonsillectomy and adenoidectomy Hx of tympanostomy tubes Hx of tubal ligation Social History household members: spouse Smoking Status: Never smoker alcohol intake: never substance use type: does not use caffeine: Yes Type: carbonated beverages ROS ROS ED Constitutional Constitutional ED: Denies chills or fever(s) Eyes Eyes: Denies blurry vision or change in vision ENT ENT ED: Denies sore throat Cardiovascular Cardiovascular: Reports other Details: Negative syncope ; Denies chest pain Respiratory/Chest Respiratory/Chest: Denies cough or dyspnea Musculoskeletal Musculoskeletal: Reports other Details: Positive right ankle and foot pain ; Denies back pain or neck pain Integumentary Denies Abrasions or rash Neurologic Neurologic: Denies headache(s) Hematologic/Lymphatic Hematologic/Lymphatic: Denies easy bleeding or easy bruising EXAM Physical Exam Const Vital Signs: 12/24/24 22:42 Temperature 96.9 F L Temperature Source Temporal Pulse Rate 64 Respiratory Rate 14 Blood Pressure 96/71 Blood Pressure Mean 79 Pulse Ox 98 Oxygen Delivery Method Room Air Positive well nourished and well developed General Appearance ED: well developed; Negative for pallor HEENT HEENT Narrative: Normocephalic atraumatic Eyes PERRL and EOMs intact bilaterally Neck supple Resp normal respiratory effort and clear to auscultation bilaterally Cardio regular rate and regular rhythm Extremity Extremity Narrative: Right lower extremity is neurovascularly intact. There is soft tissue swelling along the lateral aspect of the right ankle near the lateral malleolus. No obvious bony deformity or joint effusion. There is also mild pain with palpation along the lateral aspect of the right foot. Achilles tendon is intact. There appears to be mild laxity with inversion stressing of the right ankle compared to the left All compartments are soft and compressible going against compartment syndrome There is no pain with palpation of the proximal tibia Remainder of the exam is normal Neuro oriented x3, CN's II-XII intact bilaterally and no sensory deficits noted Sensorium / Orientation: alert Psych mental status grossly normal Skin no rashes or lesions noted and no wounds General Skin Exam: Negative for jaundice or pallor MDM MDM MDM Narrative Medical decision making narrative: Patient arrived to the ER with stable vitals and reported a mechanical fall so therefore I felt no need for cardiac or syncope workup. She did not strike her head nor she had a blood thinner so my concern for traumatic subarachnoid or subdural hemorrhage is low and there is no need for head CT. With pain in the ankle and foot there is concern for ankle sprain versus fracture. Therefore x- rays were ordered. X-rays revealed no signs of acute trauma. However as she does have increased laxity with inversion stress testing there is concern for grade 2 sprain and therefore patient was placed in a walking boot for stabilization. She can follow-up with podiatry for reevaluation and is otherwise safe for discharge. History & Record Review Discussion w/independent historian: Patient and Significant other Radiography Diagnostic Testing: Clinical Impression(s) from Imaging Studies Ankle X-Ray 12/24/24 23:14 IMPRESSION: Soft tissue injury. Reading Location: [facility] Foot X-Ray 12/24/24 23:14 IMPRESSION: No acute injury. Reading Location: [facility] X-ray of the right ankle as interpreted by the emergency medicine physician reveals no acute fracture or dislocation and joint effusion X-ray of the right foot as interpreted by the emergency medicine physician reveals no acute fracture or dislocation Discharge Plan Triage Chief Complaint: Lower Extremity Injury ED Provider: Yahir العراقي Dx/Rx/DC Orders Clinical Impression: Grade 2 ankle sprain, Cardiomyopathy, Anxiety and depression Instructions: ED Ankle Sprain (Adult), ED Walker Boot Prescriptions: New hydrocodone-acetaminophen 5-325 mg tablet 1 tab PO Q6H PRN (Reason: pain) 3 Days Qty: 12 0RF No Action pantoprazole 40 mg tablet,delayed release (DR/EC) 40 mg PO BID Qty: 60 2RF prednisone 20 mg tablet 40 mg PO BID mecobalamin (vitamin B12) 1,000 mcg tablet,chewable 1,000 mcg PO DAILY ascorbic acid (vitamin C) [Vitamin C] 500 mg tablet 500 mg PO BID sertraline 25 mg tablet 25 mg PO DAILY guaifenesin [Mucinex] 1 tab PO Q6H PRN (Reason: cold symptoms) ondansetron 4 mg tablet,disintegrating 4 mg PO Q6H PRN (Reason: nausea and vomiting) Qty: 12 0RF benzonatate 100 mg capsule 200 mg PO TID PRN (Reason: cough) 10 Days Qty: 60 0RF albuterol sulfate [Ventolin HFA] 90 mcg/actuation HFA aerosol inhaler 2 puff inhalation Q4H PRN PRN (Reason: Wheezing/SOB) Qty: 1 0RF Primary Care Provider: Jamari Zhang Referrals: Latrell Sabillon DPM [Med Staff - Active Staff] - (Ankle sprain) Jamari Zhang, DO [Primary Care Provider] - Activity Restrictions/Additional Instructions: The x-ray of your foot and ankle by my interpretation did not reveal any obvious fracture or dislocation. Wear the walking boot to help provide stabilization as your history and exam is consistent with a grade 2 ankle sprain/partial tear. Follow-up with the performance reporter to discuss further testing and treatment options and return to the ER should you have any further concerns Print Language: Uzbek Disposition Disposition: Home, Self Care Discharge Date/Time: 12/25/24 01:12
[2024-12-25 01:10] VITALS: BP 90/63; PULSE 63; RESP 16; TEMP 36.1; O2SAT 98
== END 2024-12-25 01:12 | disposition home or self-care (01) ==
PROVIDERS: Emergency Provider Emergency Medicine; PCP Student in an Organized Health Care Education/Training Program; Visit Provider Emergency Medicine
DX: S93.401A Sprain of unspecified ligament of right ankle, initial encounter (principal); I42.9 Cardiomyopathy, unspecified; F41.9 Anxiety disorder, unspecified; F32.A Depression, unspecified; X58.XXXA Exposure to other specified factors, initial encounter
CPT/HCPCS: 73610; 73630; 99283